=== PATIENT | male | born 1980 | race Caucasian/White ===

== ENCOUNTER 2022-09-04 21:52 | Observation (INO) | payer SELFPAY ==
[2022-09-04] VITALS (10 sets, daily range): BP systolic 119–176; BP diastolic 74–116; PULSE 86–105; RESP 10–24; TEMP 36.7; O2SAT 93–99; BMI 39.5
--- NOTE | 2022-09-04 22:05 | XR_ITS ---
The [address] [address] Patient Name: LAWSON LOPEZ MRN: [id number] date: 1980 Sex: M Assigned Patient Location: ER Current Patient Location: ER Accession/Order Number: [id number] Exam Date: 09/04/2022 21:15 Report Date: 09/04/2022 22:50 At the request of: AMANDA FINLEY Procedure: XR chest 1V EXAM: XR chest 1V HISTORY: chest pain COMPARISON: 08/06/2009 FINDINGS: No focal consolidations or pleural effusions. Cardiomediastinal silhouette is unremarkable. Visualized osseous structures are unremarkable. IMPRESSION: No acute disease. Electronically authenticated by: LILLY JOHNSTON Date: 09/04/2022 22:50
--- NOTE | 2022-09-04 22:05 | ECG_ITS ---
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 Repeat ECG is requested 9150 abnormal ECG No previous ECG available for comparison Electronically Signed On 09-05-2022 7:04:43 EDT by DAILY BRINK
--- NOTE | 2022-09-04 22:07 | ED.CHESTPAI1 ---
HPI - Chest Pain General Chief Complaint: Chest Pain Stated Complaint: CHEST PAIN FOR 3 DAYS Time Seen by Provider: 09/04/22 22:01 Source: patient Mode of arrival: walk-in Limitations: no limitations History of Present Illness HPI narrative: chest pain just left of center started about 3 days ago. Pain is non-radiating and intermittent. No associated symptoms. 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 No fever, chills, cough, vomiting or other symptoms. He is supposed to be taking medication for high blood pressure and high cholesterol but does not see any local physicians. No meds taken for this pain. Related Data Home Medications Medication Instructions Recorded Confirmed No Known Home Medications 09/04/22 09/04/22 Allergies Allergy/AdvReac Type Severity Reaction Status Date / Time amoxicillin Allergy Verified 09/04/22 22:06 prednisone Allergy Verified 09/04/22 22:06 narcotic AdvReac Severe Uncoded 09/04/22 23:14 PFSH PFS Social History Smoking status: Current every day smoker Exam Narrative Exam Narrative: Nurses notes and vital signs reviewed and patient is not hypoxic. afebrile General: Well-appearing and in no apparent distress. Skin: Warm, dry, no pallor noted. No rash. Head: Normocephalic, atraumatic. Eye: Pupils are equal, round and EOMI. No scleral icterus. Ears, Nose, Mouth, and Throat: Oral mucosa is moist Cardiovascular: Regular Rate and Rhythm without murmur, gallop or rub. Respiratory: No accessory muscle use or respiratory distress. Lungs are clear to auscultation, no wheezing, rales or rhonchi Chest Wall: no tenderness, crepitus r subcutaneous emphysema Back: No midline thoracic or lumbar vertebral tenderness. No CVA tenderness Musculoskeletal: normal ROM, no calf or popliteal tenderness, no lower extremity edema/swelling GI: Abdomen is soft, non-distended. Normal bowel sounds. No tenderness to palpation. No rebound, guarding, or rigidity noted. Neurological: A&O x4. No cranial nerve dysfunction observed. No truncal ataxia. Moves all extremities. Sensation intact. Psychiatric: Cooperative and interactive. Normal mood and affect. Constitutional Vital Signs - 24 hr 09/04/22 21:57 09/04/22 18:38 09/04/22 21:58 Temperature 98.0 F Pulse Rate 93 H Pulse Rate [Monitor] 101 H Respiratory Rate 20 19 Blood Pressure 119/74 176/116 H Blood Pressure [Right Arm] 172/86 H Pulse Oximetry 99 98 95 Oxygen Delivery Method Room Air 09/04/22 22:23 09/04/22 22:31 09/04/22 22:46 Temperature Pulse Rate 105 H 91 H 92 H Pulse Rate [Monitor] Respiratory Rate 19 17 22 Blood Pressure 146/104 H 134/96 H 142/91 H Blood Pressure [Right Arm] Pulse Oximetry 94 L 94 L 95 Oxygen Delivery Method 09/04/22 22:46 09/04/22 22:46 09/04/22 23:01 Temperature Pulse Rate 93 H 97 H 103 H Pulse Rate [Monitor] Respiratory Rate 18 24 18 Blood Pressure 142/91 H 142/91 H 142/109 H Blood Pressure [Right Arm] Pulse Oximetry 93 L 97 95 Oxygen Delivery Method 09/04/22 23:16 09/04/22 23:16 09/04/22 23:31 Temperature Pulse Rate 93 H 89 86 Pulse Rate [Monitor] Respiratory Rate 17 17 19 Blood Pressure 141/101 H 141/101 H 146/92 H Blood Pressure [Right Arm] Pulse Oximetry 94 L 93 L 97 Oxygen Delivery Method 09/04/22 23:46 09/05/22 00:01 09/05/22 00:16 Temperature Pulse Rate 104 H 98 H 90 Pulse Rate [Monitor] Respiratory Rate 10 L 15 21 Blood Pressure 141/97 H 130/102 H 127/94 H Blood Pressure [Right Arm] Pulse Oximetry 95 93 L 93 L Oxygen Delivery Method 09/05/22 00:16 09/05/22 00:31 09/05/22 00:46 Temperature Pulse Rate 88 89 90 Pulse Rate [Monitor] Respiratory Rate 21 12 22 Blood Pressure 127/94 H 131/92 H 141/89 H Blood Pressure [Right Arm] Pulse Oximetry 95 98 96 Oxygen Delivery Method Course Vital Signs Vital signs: Vital Signs Blood Pressure 119/74 09/04/22 18:38 Pulse Oximetry 98 09/04/22 18:38 Temperature 98.0 F 09/04/22 21:57 Pulse Rate 90 09/05/22 00:46 Respiratory Rate 22 09/05/22 00:46 Blood Pressure 141/89 H 09/05/22 00:46 Pulse Oximetry 96 09/05/22 00:46 Oxygen Delivery Method Room Air 09/04/22 21:57 MDM - Chest Pain MDM Narrative Medical decision making narrative: Patient was placed on cardiac nurse specialist and EKG obtained. Blood drawn and sent for evaluation. CXR obtained. D-dimer negative. CBC, metabolic profile, BNP and troponin negative. Patient felt better after getting aspirin and SL Nitro. he is a former addict and does not want any narcotic pain medications. He has several risk factors, no local PCP for follow up and HEART score = 5. I called the telehospitalist to discuss OBS admission to the SDU. Dr Alexandra asked that I get a 2nd troponin @ 3hrs after first and if not markedly elevated agreed to admit on behalf of Dr Grajeda. Patient and spouse informed of risk and recommendation for admission. he is agreeable to staying. REPEAT TROPONIN WAS SIMILAR TO INITIAL VALUE AND THE PATIENT WAS ADMITTED TO THE SDU Lab Data Attestation: I reviewed the patient's lab results. Labs: Lab Results 09/04/22 09/05/22 Range/Units 22:05 01:10 WBC 10.6 (4.0-11.0) 10^3/uL RBC 4.99 (4.70-6.10) 10^6/uL Hgb 15.1 (14.0-18.0) g/dL Hct 43.5 (42.0-54.0) % MCV 87.2 (80.0-94.0) fL MCH 30.3 (25.9-34.0) pg MCHC 34.7 (29.9-35.2) g/dL RDW 12.4 (11.0-15.0) % Plt Count 207 (150-450) 10^3/uL MPV 10.0 (9.5-13.5) fL Neut % (Auto) 61.3 (43.0-75.0) % Lymph % (Auto) 24.1 (20.5-60.0) % [place] % (Auto) 10.3 (1.7-12.0) % Eos % (Auto) 2.8 (0.9-7.0) % Baso % (Auto) 0.7 (0.2-2.0) % Neut # (Auto) 6.5 (1.4-6.5) 10^3/uL Lymph # (Auto) 2.5 (1.2-3.8) 10^3/uL [place] # (Auto) 1.1 H (0.3-0.8) 10^3/uL Eos # (Auto) 0.3 (0.0-0.7) 10^3/uL Baso # (Auto) 0.1 (0.0-0.1) 10^3/uL Abs Immat Gran (auto) 0.08 H (0.00-0.03) 10^3/uL Imm/Tot Granulo (auto) 0.8 H (0.0-0.5) % D-Dimer <0.19 (<=0.59) mg/L FEU Sodium 137 (136-145) mmol/L Potassium 3.6 (3.5-5.1) mmol/L Chloride 102 (98-107) mmol/L Carbon Dioxide 27.4 (21.0-32.0) mmol/L Anion Gap 11.2 BUN 12.0 (7.0-18.0) mg/dL Creatinine 1.04 (0.70-1.30) mg/dL Est GFR ( Amer) >60 (>=60) Est GFR (Non-Af Amer) >60 (>=60) BUN/Creatinine Ratio 11.5 Glucose 115 H (74-106) mg/dL Calcium 9.0 (8.5-10.1) mg/dL Troponin I High Sens 15.9 15.3 (4.0-76.1) pg/mL NT-Pro-B Natriuret Pep 21.0 (<=450.0) pg/mL Imaging Data Chest x-ray: Radiologist's impression: MRN: [id number] date: 1980 Sex: M Assigned Patient Location: ER Current Patient Location: ER Accession/Order Number: [id number] Exam Date: 09/04/2022 21:15 Report Date: 09/04/2022 22:50 At the request of: AMANDA FINLEY Procedure: XR chest 1V EXAM: XR chest 1V HISTORY: chest pain COMPARISON: 08/06/2009 FINDINGS: No focal consolidations or pleural effusions. Cardiomediastinal silhouette is unremarkable. Visualized osseous structures are unremarkable. IMPRESSION: No acute disease. Electronically authenticated by: LILLY JOHNSTON Date: 09/04/2022 22:50 ECG Data Interpretation: EKG interpretation: Emergency Department physician interpretation. Normal sinus rhythm at 87bpm. Leftward axis, possible pulmonary disease pattern. No ST segment elevation or depression. Heart Score History: Highly Suspicious ECG: NS Repolarization Age: <45 years Risk Factors: >3 Risk Factors/ HX of CAD:2 Troponin: <Normal Limit Total Heart Score Recommendations & Risks:: 5 Discharge Plan Discharge Chief Complaint: Chest Pain Clinical Impression: Chest pain Patient Disposition: Admitted as Observation Time of Disposition Decision: 23:05 Additional Instructions: Admitted to Dr Grajeda's service
[2022-09-04] MEDS: ASPIRIN 81 MG TAB.CHEW 162 MG PO (22:20)
[2022-09-04] MEDS: NITROGLYCERIN 0.4 MG TAB.SUBL PO ×2 (22:20→23:47)
[2022-09-04 22:22] LABS: Basophils Absolute Auto 0.1 10^3/uL (0.0-0.1); Basophils Percent Auto 0.7 % (0.2-2.0); Eosinophils Absolute Auto 0.3 10^3/uL (0.0-0.7); Eosinophils Percent Auto 2.8 % (0.9-7.0); Hematocrit 43.5 % (42.0-54.0); Hemoglobin 15.1 g/dL (14.0-18.0); Immature Granulocytes Abs Auto 0.08 10^3/uL (0.00-0.03); Immature Granulocytes Pct Auto 0.8 % (0.0-0.5); Lymphocytes Absolute Auto 2.5 10^3/uL (1.2-3.8); Lymphocytes Percent Auto 24.1 % (20.5-60.0); Mean Corpuscular HGB Conc 34.7 g/dL (29.9-35.2); Mean Corpuscular Hemoglobin 30.3 pg (25.9-34.0); Mean Corpuscular Volume 87.2 fL (80.0-94.0); Monocytes Absolute Auto 1.1 10^3/uL (0.3-0.8); Monocytes Percent Auto 10.3 % (1.7-12.0); Neutrophils Absolute Auto 6.5 10^3/uL (1.4-6.5); Neutrophils Percent Auto 61.3 % (43.0-75.0); Platelet Count 207 10^3/uL (150-450); Red Blood Count 4.99 10^6/uL (4.70-6.10); Red Cell Distribution Width 12.4 % (11.0-15.0); White Blood Count 10.6 10^3/uL (4.0-11.0)
[2022-09-04 22:44] LABS: Anion Gap 11.2; BUN Creatinine Ratio 11.5; Carbon Dioxide 27.4 mmol/L (21.0-32.0); Chloride 102 mmol/L (98-107); Estimated GFR (African America >60 (>=60); Estimated GFR (Non-African Ame >60 (>=60); Glucose 115 mg/dL (74-106); Potassium 3.6 mmol/L (3.5-5.1); Sodium 137 mmol/L (136-145); Troponin I High Sensitivity 15.9 pg/mL (4.0-76.1)
[2022-09-04 22:47] LABS: D Dimer <0.19 mg/L FEU (<=0.59)
[2022-09-05] VITALS (120 sets, daily range): BP systolic 127–176; BP diastolic 86–122; PULSE 66–113; RESP 9–52; TEMP 35.9–36.9; O2SAT 91–99; BMI 39.4
[2022-09-05 01:38] LABS: Troponin I High Sensitivity 15.3 pg/mL (4.0-76.1)
--- NOTE | 2022-09-05 03:04 | CA_ITS ---
Patient: LAWSON LOPEZ Exam Date: 09/05/2022 : 1980 Gender:M Ordering : SHAIKH Edwin CARCAMO . Admission #: [id number] Family : GUS BRADLEY Order #: [id number] CLICK HERE TO VIEW EXAM ECHOCARDIOGRAM REPORT PROCEDURE: CA ECHO DOPPLER COMPLETE INDICATIONS: Chest pain, hypertension, smoker COMPARISON: None. DESCRIPTION: COMPLETE ECHOCARDIOGRAM Real-time transthoracic echocardiography with 2D, M-mode, spectral and color flow Doppler performed. QUALITY: Technical quality was good. LEFT VENTRICLE: Normal chamber size. Normal left ventricular wall thickness. Systolic function is at the lower limits of normal. LV EF: Lower limits of normal left ventricular ejection fraction, (50-55%). DIASTOLIC: Normal diastolic function. ATRIAL SEPTUM: Visually appears intact. LEFT ATRIUM: Normal chamber size. RIGHT ATRIUM: Normal chamber size. RIGHT VENTRICLE: Normal chamber size. Normal right ventricular systolic function. TRICUSPID VALVE: Normal mobility and thickness. No stenosis with no regurgitation. MITRAL VALVE: Normal mobility and thickness. No evidence of mitral valve stenosis. There is no mitral annular calcification. No mitral regurgitation. AORTIC VALVE: Normal trileaflet appearance. No visible sclerosis. Normal leaflet mobility. No evidence of aortic valve stenosis. No aortic regurgitation. AORTIC ROOT: Normal diameter and appearance. PULMONIC VALVE: Normal thickness and mobility. No stenosis. No regurgitation. PERICARDIUM: No evidence of pericardial effusion. IVC: Collapses with inspirations. PLEURA: CONCLUSION: 1. Left ventricular systolic function is at the lower limits of normal. LVEF is 50 to 55%. 2. The right ventricle is normal in size and exhibits normal systolic function. 3. No significant valvular dysfunction. 4. No pericardial effusion. Adult Echocardiography Procedure Report Left Ventricle LVEDD (3.7 - 5.6 cm): 5.42 cm, 6.01 cm LVESD (2.2 - 4.0 cm): 4.53 cm, 4.70 cm LVIVS thickness (0.6 - 1.2 cm): 1.14 cm LVPW thickness (0.5 - 1.0 cm): 0.96 cm e': 0.12 m/s E - e': 5.77 LVOT Max Gradient: 2.73 mm[Hg] LVOT Area (cm2): 0.83 m/s Peak Velocity (LVOT): 0.83 m/s LVOT Diameter 2.44 cm Left Atrium LA Volume Index (2D A2C): 24.24 ml/m2 Left Atrium Systolic Dimension: 3.47 cm Mitral Valve MV E to A Ratio: 1.04 Mitral Valve A-Wave Peak Velocity: 0.66 m/s Mitral Valve E-Wave Peak Velocity: 0.69 m/s Right Ventricle Aorta AO Root Diam: 3.79 cm Ascending Ao Diam: 3.07 cm Aortic Valve AoV Area (Peak Bruno): 4.42 cm2, 4.42 cm2 Peak Velocity(Antegrade Flow): 0.87 m/s Peak Gradient(Antegrade Flow): 3.02 mm[Hg] Tricuspid Valve Pulmonic Valve Mean Gradient: 3.55 mm[Hg], 3.67 mm[Hg] Mean Velocity: 0.87 m/s, 0.88 m/s Peak Velocity: 1.35 m/s, 1.15 m/s Peak Gradient: 5.29 mm[Hg], 6.88 mm[Hg], 7.81 mm[Hg] Right Atrium Right Atrium Systolic Pressure: 47.76 ml, 47.76 ml Dictated by: Demian Horta M.D. on 09/05/2022 at 17:57 Approved by: Demian Horta M.D. on 09/05/2022 at 18:01
--- NOTE | 2022-09-05 03:17 | W.PM.TELEPN ---
Progress Note: Subjective Subjective Interval history: precordial pressure-like cp HPI: this is a 42 yo male who presents with above complaonts. Patient endorses chest pain just left of center started about 3 days ago.? Pain is non-radiating and intermittent.? No associated symptoms.? NO connection to exertion.? No fever, chills, cough, vomiting or other symptoms.? He is supposed to be taking medication for high blood pressure and high cholesterol, but has not been compliant.? No meds taken for this pain. Got better with NTG S/L. Repeated Raimundo - WNL. EKG - no ischemic changes. Exam Narrative Exam Narrative: NAD, PERRLA, EOMI Neck - supple, LN not palpated S1, S2, RRR CTA B/L no wheezing ABd - S/NT/N/+ BSs Ext- no C/C/E Neuro - CN II-XI grossly intact, no focal deficits SKin - warm, no rashes Constitutional Vital Signs - 24 hr 09/04/22 21:57 09/04/22 18:38 09/04/22 21:58 Temperature 98.0 F Pulse Rate 93 H Pulse Rate [Monitor] 101 H Respiratory Rate 20 19 Blood Pressure 119/74 176/116 H Blood Pressure [Right Arm] 172/86 H Pulse Oximetry 99 98 95 Oxygen Delivery Method Room Air 09/04/22 22:23 09/04/22 22:31 09/04/22 22:46 Temperature Pulse Rate 105 H 91 H 92 H Pulse Rate [Monitor] Respiratory Rate 19 17 22 Blood Pressure 146/104 H 134/96 H 142/91 H Blood Pressure [Right Arm] Pulse Oximetry 94 L 94 L 95 Oxygen Delivery Method 09/04/22 22:46 09/04/22 22:46 09/04/22 23:01 Temperature Pulse Rate 93 H 97 H 103 H Pulse Rate [Monitor] Respiratory Rate 18 24 18 Blood Pressure 142/91 H 142/91 H 142/109 H Blood Pressure [Right Arm] Pulse Oximetry 93 L 97 95 Oxygen Delivery Method 09/04/22 23:16 09/04/22 23:16 09/04/22 23:31 Temperature Pulse Rate 93 H 89 86 Pulse Rate [Monitor] Respiratory Rate 17 17 19 Blood Pressure 141/101 H 141/101 H 146/92 H Blood Pressure [Right Arm] Pulse Oximetry 94 L 93 L 97 Oxygen Delivery Method 09/04/22 23:46 09/05/22 00:01 09/05/22 00:16 Temperature Pulse Rate 104 H 98 H 90 Pulse Rate [Monitor] Respiratory Rate 10 L 15 21 Blood Pressure 141/97 H 130/102 H 127/94 H Blood Pressure [Right Arm] Pulse Oximetry 95 93 L 93 L Oxygen Delivery Method 09/05/22 00:16 09/05/22 00:31 09/05/22 00:46 Temperature Pulse Rate 88 89 90 Pulse Rate [Monitor] Respiratory Rate 21 12 22 Blood Pressure 127/94 H 131/92 H 141/89 H Blood Pressure [Right Arm] Pulse Oximetry 95 98 96 Oxygen Delivery Method 09/05/22 01:58 09/05/22 02:05 09/05/22 02:05 Temperature 96.6 F L Pulse Rate Pulse Rate [Monitor] 83 Respiratory Rate 24 15 Blood Pressure Blood Pressure [Right Arm] 142/93 H 166/122 H Pulse Oximetry 96 93 L Oxygen Delivery Method Room Air Room Air 09/05/22 02:05 09/05/22 02:05 Temperature Pulse Rate 83 Pulse Rate [Monitor] 83 Respiratory Rate Blood Pressure Blood Pressure [Right Arm] Pulse Oximetry Oxygen Delivery Method Progress Note: Objective Labs Labs: Short CBC 09/04/22 Range/Units 22:05 WBC 10.6 (4.0-11.0) 10^3/uL Hgb 15.1 (14.0-18.0) g/dL Hct 43.5 (42.0-54.0) % Plt Count 207 (150-450) 10^3/uL BMP 09/04/22 22:05 Sodium 137 Potassium 3.6 Chloride 102 Carbon Dioxide 27.4 BUN 12.0 Creatinine 1.04 Glucose 115 H Calcium 9.0 Progress Note: A&P Assessment and Plan (1) Chest pain: Assessment and Plan: Chest pain in patient with multiple risk factors for CAD - monitor on telemetry - continue to trend Raimundo - ECHo ordered - Stress test ordered - Cardiology consult placed - started on transdermal ntg + ntg s/p PRN + ASA + statin - Lipid profile ordered (2) HTN (hypertension): (3) Dyslipidemia: Assessment and Plan: F/U results of the lipid profile Started on Lipitor (4) Tobacco abuse: Assessment and Plan: counselled started on Nicotin patch Telemedicine Attestation Telemedicine Attestation I conducted this encounter from [place][] via secure live, [id number] video conference with the patient, located at [facility] with [chest pain]. Prior to the interview, the risks and benefits of telemedicine were discussed with the patient and verbal consent was obtained.
[2022-09-05 04:44] LABS: Basophils Absolute Auto 0.1 10^3/uL (0.0-0.1); Basophils Percent Auto 0.8 % (0.2-2.0); Eosinophils Absolute Auto 0.3 10^3/uL (0.0-0.7); Hemoglobin 14.4 g/dL (14.0-18.0); Immature Granulocytes Pct Auto 1.1 % (0.0-0.5); Lymphocytes Absolute Auto 2.3 10^3/uL (1.2-3.8); Lymphocytes Percent Auto 24.9 % (20.5-60.0); Mean Corpuscular HGB Conc 34.3 g/dL (29.9-35.2); Mean Corpuscular Hemoglobin 30.4 pg (25.9-34.0); Mean Corpuscular Volume 88.6 fL (80.0-94.0); Mean Platelet Volume 10.3 fL (9.5-13.5); Monocytes Absolute Auto 0.9 10^3/uL (0.3-0.8); Monocytes Percent Auto 9.5 % (1.7-12.0); Neutrophils Absolute Auto 5.6 10^3/uL (1.4-6.5); Neutrophils Percent Auto 60.7 % (43.0-75.0); Platelet Count 191 10^3/uL (150-450); Red Blood Count 4.74 10^6/uL (4.70-6.10); Red Cell Distribution Width 12.4 % (11.0-15.0); White Blood Count 9.1 10^3/uL (4.0-11.0)
[2022-09-05 04:52] LABS: Alanine Aminotransferase 26 U/L (16-63); Albumin Globulin Ratio 1.1; Albumin Level 3.6 g/dL (3.4-5.0); Alkaline Phosphatase 87 U/L (46-116); Aspartate Amino Transferase 11 U/L (15-37); BUN Creatinine Ratio 12.1; Bilirubin Total 0.5 mg/dL (0.2-1.0); Calcium 8.8 mg/dL (8.5-10.1); Carbon Dioxide 26.8 mmol/L (21.0-32.0); Chloride 103 mmol/L (98-107); Estimated GFR (African America >60 (>=60); Estimated GFR (Non-African Ame >60 (>=60); Globulin 3.4 g/dL; Glucose 105 mg/dL (74-106); Potassium 3.8 mmol/L (3.5-5.1); Sodium 138 mmol/L (136-145)
[2022-09-05] MEDS: NITROGLYCERIN 2% 1 GRAM PACKET 1 GM TD (04:56)
[2022-09-05 04:57] LABS: Troponin I High Sensitivity 15.4 pg/mL (4.0-76.1)
[2022-09-05 05:02] LABS: Chol HDL Ratio 5.6; Cholesterol 235 mg/dL (<=200); HDL Cholesterol 42 mg/dL (40-60); Thyroid Stimulating Hormone 5.104 uIU/mL (0.358-3.740); Triglycerides 110 mg/dL (<=150)
[2022-09-05 07:54] LABS: Troponin I High Sensitivity 14.7 pg/mL (4.0-76.1)
--- NOTE | 2022-09-05 10:26 | NM_ITS ---
Patient: LAWSON LOPEZ Exam Date: 09/06/2022 : 1980 Gender:M Ordering : RicardoDomitila Grajeda . Admission #: [id number] Family : Order #: [id number] CLICK HERE TO VIEW EXAM RADIOLOGY REPORT PROCEDURE: NM CIELO PERF SPECT REST STR COMPARISON: None. INDICATIONS: Chest pain TECHNIQUE: Exam Description: Stress/Rest one day protocol gated SPECT Rest Imagin.5 mCi Tc-99m Cardiolite IV on 09/06/2022 Stress Imaging 30.1 mCi Tc-99m Cardiolite IV on 09/06/2022 Exercise Protocol: Marco Heart Rate (bpm): Rest: 76 Max: 166 PMHR: 94 Blood Pressure: Rest: 114/72 Max: 174/82 Exercise Time: Minutes: 7 Seconds: 00 Stage Reached: Stage: 3 Mets 8.4 Symptoms: none Rest and peak stress ECG findings were normal and the exercise portion of the study was normal per attending physician Dr. Horvath . For more details please see separate cardiac stress test report. FINDINGS: QUALITY OF STUDY: Good. PERFUSION DEFECT: LOCATION: Basal anterior. Basal inferior. Mid-inferior. Apical inferior. SIZE: Medium (3-4 segments). SEVERITY: Moderate. TYPE: Persistent. WALL MOTION: Mild hypokinesis: LV SIZE: Enlarged; EDV 140 mL. TID / TCD: None; 0.8 LVEF: Abnormal. Calculated EF 46%. SUMMARY: Myocardial perfusion imaging study has ABNORMAL findings. CONCLUSION: 1. Fixed defects basal anterior wall and inferior wall, LAD and RCA distributions 2. No reversible ischemia 3. Dilated left ventricle, end-diastolic volume 140 milliliters 4. Low left ventricular ejection fraction 46% 5. Normal exercise test Dictated by: Alex Rey MD on 09/06/2022 at 11:27 Approved by: Alex Rey MD on 09/06/2022 at 11:37
[2022-09-05] MEDS: ASPIRIN 325 MG TABLET PO (10:50)
--- NOTE | 2022-09-05 10:56 | CM.NOTE ---
Called Finance regarding self-pay and spoke with Laura. Laura will come up and speak with pt and have him sign paperwork.
[2022-09-05 11:02] LABS: Troponin I High Sensitivity 12.2 pg/mL (4.0-76.1)
--- NOTE | 2022-09-05 12:14 | P.CN_ITS ---
Consult Note: HPI Data of Consult Requesting Physician: Shaikh Nicci MD Primary Care Provider: Non-Staff Physician, Consult Narrative Reason for consult: Chest pain Narrative: [place] [facility] consult note 42 yo male presented to ED for c/o intermittent mid left chest pain x 3days without radiation, nausea or sweating. Admits PMH hypertension and hyperlipide rosalinda- untreated- r/t unable to take time off work to see PCP. Denied any personal h/o cardiac disease, heart procedures or surgery. Denied any family h/o early heart disease or sudden . Current smoker 1 pack every 4 day, had quit smoking for 12 years, and total of 6 years, admits social alcohol about 3 times a year, former cocaine use- quit 13 years ago- denied any other illicit drug use. Pt does admit 3 episodes of syncope over his lifetime and last episode was 2 years ago. States last weekend at a [employer] [place] he had near syncope with darkening vision prior to needing to sit down. States that he typically drinks and hydrates well with water, electrolyte drinks, and occasional Pepsi/MTN Dew (maybe 2 a day). Currently admits mid lt chest soreness without any precipitating factors, recent illness or injury. States chest pain is worse with palpation during echocardiogram- denied any alleviating factors. cc:: CC: Shaikh Nicci MD Review of Systems ROS Status of ROS 10 or more systems reviewed and unremarkable except as noted in history and below Cardiovascular Reports: chest pain (lt mid chest pain, + reproducible with palpation, without radiation); Denies: palpitations, edema, swelling of feet/ankles, shortness of breath with exertion or shortness of breath when lying down Respiratory Denies: shortness of breath, cough, wheezing or pain on inspiration Gastrointestinal Denies: abdominal pain, nausea or vomiting Musculoskeletal Denies: extremity swelling Neurological Reports: dizziness (admits occasional positional dizziness, and sometimes when up and walking.); Denies: headache, numbness in extremities, weakness in extremities, lack of coordination, vertigo, confusion, slurred speech or difficulty communicating thoughts Psychiatric Reports: other (does admit alot of stress ); Denies: anxiety, mood swings, panic attacks, hopelessness, suicidal ideation or homicidal ideation [facility] Social History (Updated 09/05/22 @ 12:28 by CAMILLE ALARCON) Smoking status: Current every day smoker Non-prescribed substance use: former substance user Non-prescribed substance use details: cocaine Meds Home Medications and Allergies Home Medications Medication Instructions Recorded Confirmed Type No Known Home Medications 09/04/22 09/04/22 History Allergies Allergy/AdvReac Type Severity Reaction Status Date / Time amoxicillin Allergy Verified 09/04/22 22:06 prednisone Allergy Verified 09/04/22 22:06 narcotic AdvReac Severe Uncoded 09/04/22 23:14 Exam Constitutional Vital Signs - 24 hr 09/04/22 21:57 09/04/22 18:38 09/04/22 21:58 Temperature 98.0 F Pulse Rate 93 H Pulse Rate [Monitor] 101 H Respiratory Rate 20 19 Blood Pressure 119/74 176/116 H Blood Pressure [Right Arm] 172/86 H Pulse Oximetry 99 98 95 Oxygen Delivery Method Room Air 09/04/22 22:23 09/04/22 22:31 09/04/22 22:46 Temperature Pulse Rate 105 H 91 H 92 H Pulse Rate [Monitor] Respiratory Rate 19 17 22 Blood Pressure 146/104 H 134/96 H 142/91 H Blood Pressure [Right Arm] Pulse Oximetry 94 L 94 L 95 Oxygen Delivery Method 09/04/22 22:46 09/04/22 22:46 09/04/22 23:01 Temperature Pulse Rate 93 H 97 H 103 H Pulse Rate [Monitor] Respiratory Rate 18 24 18 Blood Pressure 142/91 H 142/91 H 142/109 H Blood Pressure [Right Arm] Pulse Oximetry 93 L 97 95 Oxygen Delivery Method 09/04/22 23:16 09/04/22 23:16 09/04/22 23:31 Temperature Pulse Rate 93 H 89 86 Pulse Rate [Monitor] Respiratory Rate 17 17 19 Blood Pressure 141/101 H 141/101 H 146/92 H Blood Pressure [Right Arm] Pulse Oximetry 94 L 93 L 97 Oxygen Delivery Method 09/04/22 23:46 09/05/22 00:01 09/05/22 00:16 Temperature Pulse Rate 104 H 98 H 90 Pulse Rate [Monitor] Respiratory Rate 10 L 15 21 Blood Pressure 141/97 H 130/102 H 127/94 H Blood Pressure [Right Arm] Pulse Oximetry 95 93 L 93 L Oxygen Delivery Method 09/05/22 00:16 09/05/22 00:31 09/05/22 00:46 Temperature Pulse Rate 88 89 90 Pulse Rate [Monitor] Respiratory Rate 21 12 22 Blood Pressure 127/94 H 131/92 H 141/89 H Blood Pressure [Right Arm] Pulse Oximetry 95 98 96 Oxygen Delivery Method 09/05/22 01:58 09/05/22 02:05 09/05/22 02:05 Temperature 96.6 F L Pulse Rate Pulse Rate [Monitor] 83 Respiratory Rate 24 15 Blood Pressure Blood Pressure [Right Arm] 142/93 H 166/122 H Pulse Oximetry 96 93 L Oxygen Delivery Method Room Air Room Air 09/05/22 02:05 09/05/22 02:05 09/05/22 03:09 Temperature Pulse Rate 83 74 Pulse Rate [Monitor] 83 Respiratory Rate Blood Pressure Blood Pressure [Right Arm] Pulse Oximetry Oxygen Delivery Method 09/05/22 04:02 09/05/22 04:20 09/05/22 04:20 Temperature 97.8 F Pulse Rate 83 87 Pulse Rate [Monitor] 87 Respiratory Rate 16 Blood Pressure Blood Pressure [Right Arm] 142/91 H Pulse Oximetry 96 Oxygen Delivery Method Room Air 09/05/22 04:20 09/05/22 04:40 09/05/22 05:27 Temperature Pulse Rate 87 85 86 Pulse Rate [Monitor] Respiratory Rate Blood Pressure Blood Pressure [Right Arm] Pulse Oximetry 93 L Oxygen Delivery Method 09/05/22 06:44 09/05/22 07:46 09/05/22 07:49 Temperature Pulse Rate 83 87 Pulse Rate [Monitor] 72 Respiratory Rate 16 Blood Pressure Blood Pressure [Right Arm] Pulse Oximetry 94 L Oxygen Delivery Method 09/05/22 07:49 09/05/22 07:58 09/05/22 09:52 Temperature 98.0 F Pulse Rate 73 82 85 Pulse Rate [Monitor] Respiratory Rate 18 Blood Pressure Blood Pressure [Right Arm] 138/86 H Pulse Oximetry 96 Oxygen Delivery Method Room Air 09/05/22 10:39 09/05/22 00:46 09/05/22 01:01 Temperature Pulse Rate 73 82 90 Pulse Rate [Monitor] Respiratory Rate 18 11 L Blood Pressure 141/89 H 127/92 H Blood Pressure [Right Arm] Pulse Oximetry 91 L 94 L Oxygen Delivery Method 09/05/22 01:16 09/05/22 01:31 09/05/22 01:46 Temperature Pulse Rate 86 82 82 Pulse Rate [Monitor] Respiratory Rate 15 17 17 Blood Pressure 155/93 H 139/89 H 142/93 H Blood Pressure [Right Arm] Pulse Oximetry 94 L 96 98 Oxygen Delivery Method 09/05/22 01:48 09/05/22 01:50 09/05/22 01:53 Temperature Pulse Rate 92 H 84 85 Pulse Rate [Monitor] Respiratory Rate 13 21 21 Blood Pressure 176/118 H Blood Pressure [Right Arm] Pulse Oximetry 95 Oxygen Delivery Method 09/05/22 01:53 09/05/22 01:53 09/05/22 02:00 Temperature Pulse Rate 84 86 79 Pulse Rate [Monitor] Respiratory Rate 11 L 15 14 Blood Pressure 176/118 H 166/122 H Blood Pressure [Right Arm] Pulse Oximetry 99 98 Oxygen Delivery Method 09/05/22 04:17 09/05/22 07:41 09/05/22 07:50 Temperature Pulse Rate 83 79 75 Pulse Rate [Monitor] Respiratory Rate 10 L 19 19 Blood Pressure 142/91 H Blood Pressure [Right Arm] Pulse Oximetry 99 97 Oxygen Delivery Method 09/05/22 08:00 09/05/22 08:10 09/05/22 08:20 Temperature Pulse Rate 86 76 78 Pulse Rate [Monitor] Respiratory Rate 16 9 L 16 Blood Pressure Blood Pressure [Right Arm] Pulse Oximetry Oxygen Delivery Method 09/05/22 08:30 09/05/22 08:40 09/05/22 08:50 Temperature Pulse Rate 95 H 81 79 Pulse Rate [Monitor] Respiratory Rate 16 20 19 Blood Pressure Blood Pressure [Right Arm] Pulse Oximetry Oxygen Delivery Method 09/05/22 09:00 09/05/22 09:10 09/05/22 09:20 Temperature Pulse Rate 77 81 81 Pulse Rate [Monitor] Respiratory Rate 15 21 17 Blood Pressure Blood Pressure [Right Arm] Pulse Oximetry Oxygen Delivery Method 09/05/22 09:30 09/05/22 09:40 09/05/22 09:50 Temperature Pulse Rate 78 78 81 Pulse Rate [Monitor] Respiratory Rate 26 H 52 H 17 Blood Pressure Blood Pressure [Right Arm] Pulse Oximetry Oxygen Delivery Method 09/05/22 10:00 09/05/22 10:10 09/05/22 10:20 Temperature Pulse Rate 86 77 77 Pulse Rate [Monitor] Respiratory Rate 16 14 20 Blood Pressure Blood Pressure [Right Arm] Pulse Oximetry Oxygen Delivery Method 09/05/22 10:30 09/05/22 10:40 09/05/22 10:50 Temperature Pulse Rate 79 88 78 Pulse Rate [Monitor] Respiratory Rate 20 18 14 Blood Pressure Blood Pressure [Right Arm] Pulse Oximetry Oxygen Delivery Method 09/05/22 10:52 09/05/22 10:52 09/05/22 12:12 Temperature Pulse Rate 78 73 Pulse Rate [Monitor] 87 Respiratory Rate 18 17 18 Blood Pressure 169/122 H Blood Pressure [Right Arm] Pulse Oximetry 98 Oxygen Delivery Method 09/05/22 12:12 Temperature Pulse Rate 72 Pulse Rate [Monitor] Respiratory Rate Blood Pressure Blood Pressure [Right Arm] Pulse Oximetry Oxygen Delivery Method Documenting provider has reviewed patient's vital signs: yes Common normals: no apparent distress, no limitations and alert; negative for average body habitus (obese) General appearance: cooperative, comfortable and well developed Nutritional appearance: obese Orientation/consciousness: Yes awake, Yes oriented to person, Yes oriented to place and Yes oriented to time Chest Common normals: inspection of chest normal and palpation of chest normal (lt mid chest + reproducible chest pain 2/10- sharp) Respiratory Common normals: normal respiratory effort, no retractions, no use of accessory muscles and clear to auscultation bilaterally Cardio Common normals: regular rate, regular rhythm, S1 normal heart sound, S2 normal heart sound, no gallops, no murmurs, no rub and peripheral pulses 2+ throughout; JVD Palpation: normal PMI Rate: regular rate Rhythm: regular rhythm Heart sounds: S1 normal and S2 normal; no murmurs Peripheral pulses: posterior tibial pulses present and dorsalis pedis pulses present Extremity Common normals: normal to inspection, normal capillary refill and no clubbing, cyanosis or edema Neuro Sensorium/orientation: awake, alert, oriented to person, oriented to place and oriented to time Psych Thought process: normal thought process Thought content: normal thought content Attention/concentration: attention grossly intact Memory/cognition: memory grossly intact Results Labs Labs: Short CBC 09/04/22 09/05/22 Range/Units 22:05 04:19 WBC 10.6 9.1 (4.0-11.0) 10^3/uL Hgb 15.1 14.4 (14.0-18.0) g/dL Hct 43.5 42.0 (42.0-54.0) % Plt Count 207 191 (150-450) 10^3/uL BMP 09/04/22 09/05/22 22:05 04:19 Sodium 137 138 Potassium 3.6 3.8 Chloride 102 103 Carbon Dioxide 27.4 26.8 BUN 12.0 12.0 Creatinine 1.04 0.99 Glucose 115 H 105 Calcium 9.0 8.8 Liver Function 09/05/22 Range/Units 04:19 Total Bilirubin 0.5 (0.2-1.0) mg/dL AST 11 L (15-37) U/L ALT 26 (16-63) U/L Alkaline Phosphatase 87 (46-116) U/L Albumin 3.6 (3.4-5.0) g/dL ECG Interpretation: ? Interpretive Statements 1100 Sinus rhythm 1108 Marked sinus arrhythmia 7200 Abnormal left axis deviation 8003 Consistent with pulmonary disease 8102 Low QRS voltage in chest leads 0104 ELECTRODE(S) DETACHED ...? Repeat ECG is requested 9150 ? abnormal ECG? No previous ECG available for comparison Electronically Signed On 09-05-2022 7:04:43 EDT by NEIL [facility]INK Imaging Chest x-ray: Radiologist's impression: no acute cardiopulm concerns Assessment and Plan Assessment and Plan (1) Chest pain: Assessment and Plan: Reproducible chest pain, negative HS troponin levels x 3, EKG without acute changes or ST elevation/depression. Most likely CP is r/t other etiology as musculoskeletal, also in setting of uncontrolled HTN (2) HTN (hypertension): Assessment and Plan: Uncontrolled HTN-Dr Thompson added amlodipine for HTN management. (3) Dyslipidemia: Assessment and Plan: Elevated lipid levels therefore lipitor was started- recommend repeat liver function and lipid level in 2-3 months monitor for any myalgias (4) Tobacco abuse: Assessment and Plan: Recommended smoking cessation, States he is going to quit smoking again. (5) Syncope and collapse: Assessment and Plan: Awaiting echocardiogram and stress test as ordered by primary service to assess cardiac function and perfusion Recommended pt to limit caffeinated beverages and maintain adequate hydration with water and electrolyte beverages- orthostatic vitals as inpt to assess for POTS/neurocardiogenic components. Being that he has financial concerns r/t no medical insurance will hold off on event monitor at this time. Telemetry review does not show any concerning arrythmias since admit. Plan as above Reviewed with Dr Michelle for further recommendations Camille Alarcon [facility]
[2022-09-05] MEDS: AMLODIPINE BESYLATE 5 MG TABLET PO (12:22)
--- NOTE | 2022-09-05 12:44 | P.CN_ITS ---
Consult Note: HPI Data of Consult Requesting Physician: Shaikh Nicci MD Primary Care Provider: Non-Staff Physician, Consult Narrative cc:: CC: Shaikh Ncici MD [facility] Social History (Updated 09/05/22 @ 12:28 by STEVEN FLORES) Smoking status: Current every day smoker Non-prescribed substance use: former substance user Non-prescribed substance use details: cocaine Meds Home Medications and Allergies Home Medications Medication Instructions Recorded Confirmed Type No Known Home Medications 09/04/22 09/04/22 History Allergies Allergy/AdvReac Type Severity Reaction Status Date / Time amoxicillin Allergy Verified 09/04/22 22:06 prednisone Allergy Verified 09/04/22 22:06 narcotic AdvReac Severe Uncoded 09/04/22 23:14 Exam Constitutional Vital Signs - 24 hr 09/04/22 21:57 09/04/22 18:38 09/04/22 21:58 Temperature 98.0 F Pulse Rate 93 H Pulse Rate [Monitor] 101 H Respiratory Rate 20 19 Blood Pressure 119/74 176/116 H Blood Pressure [Right Arm] 172/86 H Pulse Oximetry 99 98 95 Oxygen Delivery Method Room Air 09/04/22 22:23 09/04/22 22:31 09/04/22 22:46 Temperature Pulse Rate 105 H 91 H 92 H Pulse Rate [Monitor] Respiratory Rate 19 17 22 Blood Pressure 146/104 H 134/96 H 142/91 H Blood Pressure [Right Arm] Pulse Oximetry 94 L 94 L 95 Oxygen Delivery Method 09/04/22 22:46 09/04/22 22:46 09/04/22 23:01 Temperature Pulse Rate 93 H 97 H 103 H Pulse Rate [Monitor] Respiratory Rate 18 24 18 Blood Pressure 142/91 H 142/91 H 142/109 H Blood Pressure [Right Arm] Pulse Oximetry 93 L 97 95 Oxygen Delivery Method 09/04/22 23:16 09/04/22 23:16 09/04/22 23:31 Temperature Pulse Rate 93 H 89 86 Pulse Rate [Monitor] Respiratory Rate 17 17 19 Blood Pressure 141/101 H 141/101 H 146/92 H Blood Pressure [Right Arm] Pulse Oximetry 94 L 93 L 97 Oxygen Delivery Method 09/04/22 23:46 09/05/22 00:01 09/05/22 00:16 Temperature Pulse Rate 104 H 98 H 90 Pulse Rate [Monitor] Respiratory Rate 10 L 15 21 Blood Pressure 141/97 H 130/102 H 127/94 H Blood Pressure [Right Arm] Pulse Oximetry 95 93 L 93 L Oxygen Delivery Method 09/05/22 00:16 09/05/22 00:31 09/05/22 00:46 Temperature Pulse Rate 88 89 90 Pulse Rate [Monitor] Respiratory Rate 21 12 22 Blood Pressure 127/94 H 131/92 H 141/89 H Blood Pressure [Right Arm] Pulse Oximetry 95 98 96 Oxygen Delivery Method 09/05/22 01:58 09/05/22 02:05 09/05/22 02:05 Temperature 96.6 F L Pulse Rate Pulse Rate [Monitor] 83 Respiratory Rate 24 15 Blood Pressure Blood Pressure [Right Arm] 142/93 H 166/122 H Pulse Oximetry 96 93 L Oxygen Delivery Method Room Air Room Air 09/05/22 02:05 09/05/22 02:05 09/05/22 03:09 Temperature Pulse Rate 83 74 Pulse Rate [Monitor] 83 Respiratory Rate Blood Pressure Blood Pressure [Right Arm] Pulse Oximetry Oxygen Delivery Method 09/05/22 04:02 09/05/22 04:20 09/05/22 04:20 Temperature 97.8 F Pulse Rate 83 87 Pulse Rate [Monitor] 87 Respiratory Rate 16 Blood Pressure Blood Pressure [Right Arm] 142/91 H Pulse Oximetry 96 Oxygen Delivery Method Room Air 09/05/22 04:20 09/05/22 04:40 09/05/22 05:27 Temperature Pulse Rate 87 85 86 Pulse Rate [Monitor] Respiratory Rate Blood Pressure Blood Pressure [Right Arm] Pulse Oximetry 93 L Oxygen Delivery Method 09/05/22 06:44 09/05/22 07:46 09/05/22 07:49 Temperature Pulse Rate 83 87 Pulse Rate [Monitor] 72 Respiratory Rate 16 Blood Pressure Blood Pressure [Right Arm] Pulse Oximetry 94 L Oxygen Delivery Method 09/05/22 07:49 09/05/22 07:58 09/05/22 09:52 Temperature 98.0 F Pulse Rate 73 82 85 Pulse Rate [Monitor] Respiratory Rate 18 Blood Pressure Blood Pressure [Right Arm] 138/86 H Pulse Oximetry 96 Oxygen Delivery Method Room Air 09/05/22 10:39 09/05/22 00:46 09/05/22 01:01 Temperature Pulse Rate 73 82 90 Pulse Rate [Monitor] Respiratory Rate 18 11 L Blood Pressure 141/89 H 127/92 H Blood Pressure [Right Arm] Pulse Oximetry 91 L 94 L Oxygen Delivery Method 09/05/22 01:16 09/05/22 01:31 09/05/22 01:46 Temperature Pulse Rate 86 82 82 Pulse Rate [Monitor] Respiratory Rate 15 17 17 Blood Pressure 155/93 H 139/89 H 142/93 H Blood Pressure [Right Arm] Pulse Oximetry 94 L 96 98 Oxygen Delivery Method 09/05/22 01:48 09/05/22 01:50 09/05/22 01:53 Temperature Pulse Rate 92 H 84 85 Pulse Rate [Monitor] Respiratory Rate 13 21 21 Blood Pressure 176/118 H Blood Pressure [Right Arm] Pulse Oximetry 95 Oxygen Delivery Method 09/05/22 01:53 09/05/22 01:53 09/05/22 02:00 Temperature Pulse Rate 84 86 79 Pulse Rate [Monitor] Respiratory Rate 11 L 15 14 Blood Pressure 176/118 H 166/122 H Blood Pressure [Right Arm] Pulse Oximetry 99 98 Oxygen Delivery Method 09/05/22 04:17 09/05/22 07:41 09/05/22 07:50 Temperature Pulse Rate 83 79 75 Pulse Rate [Monitor] Respiratory Rate 10 L 19 19 Blood Pressure 142/91 H Blood Pressure [Right Arm] Pulse Oximetry 99 97 Oxygen Delivery Method 09/05/22 08:00 09/05/22 08:10 09/05/22 08:20 Temperature Pulse Rate 86 76 78 Pulse Rate [Monitor] Respiratory Rate 16 9 L 16 Blood Pressure Blood Pressure [Right Arm] Pulse Oximetry Oxygen Delivery Method 09/05/22 08:30 09/05/22 08:40 09/05/22 08:50 Temperature Pulse Rate 95 H 81 79 Pulse Rate [Monitor] Respiratory Rate 16 20 19 Blood Pressure Blood Pressure [Right Arm] Pulse Oximetry Oxygen Delivery Method 09/05/22 09:00 09/05/22 09:10 09/05/22 09:20 Temperature Pulse Rate 77 81 81 Pulse Rate [Monitor] Respiratory Rate 15 21 17 Blood Pressure Blood Pressure [Right Arm] Pulse Oximetry Oxygen Delivery Method 09/05/22 09:30 09/05/22 09:40 09/05/22 09:50 Temperature Pulse Rate 78 78 81 Pulse Rate [Monitor] Respiratory Rate 26 H 52 H 17 Blood Pressure Blood Pressure [Right Arm] Pulse Oximetry Oxygen Delivery Method 09/05/22 10:00 09/05/22 10:10 09/05/22 10:20 Temperature Pulse Rate 86 77 77 Pulse Rate [Monitor] Respiratory Rate 16 14 20 Blood Pressure Blood Pressure [Right Arm] Pulse Oximetry Oxygen Delivery Method 09/05/22 10:30 09/05/22 10:40 09/05/22 10:50 Temperature Pulse Rate 79 88 78 Pulse Rate [Monitor] Respiratory Rate 20 18 14 Blood Pressure Blood Pressure [Right Arm] Pulse Oximetry Oxygen Delivery Method 09/05/22 10:52 09/05/22 10:52 09/05/22 12:12 Temperature Pulse Rate 78 73 Pulse Rate [Monitor] 87 Respiratory Rate 18 17 18 Blood Pressure 169/122 H Blood Pressure [Right Arm] Pulse Oximetry 98 Oxygen Delivery Method 09/05/22 12:12 09/05/22 12:22 Temperature Pulse Rate 72 Pulse Rate [Monitor] Respiratory Rate Blood Pressure 158/92 H Blood Pressure [Right Arm] Pulse Oximetry Oxygen Delivery Method Results Labs Labs: Short CBC 09/04/22 09/05/22 Range/Units 22:05 04:19 WBC 10.6 9.1 (4.0-11.0) 10^3/uL Hgb 15.1 14.4 (14.0-18.0) g/dL Hct 43.5 42.0 (42.0-54.0) % Plt Count 207 191 (150-450) 10^3/uL BMP 09/04/22 09/05/22 22:05 04:19 Sodium 137 138 Potassium 3.6 3.8 Chloride 102 103 Carbon Dioxide 27.4 26.8 BUN 12.0 12.0 Creatinine 1.04 0.99 Glucose 115 H 105 Calcium 9.0 8.8 Liver Function 09/05/22 Range/Units 04:19 Total Bilirubin 0.5 (0.2-1.0) mg/dL AST 11 L (15-37) U/L ALT 26 (16-63) U/L Alkaline Phosphatase 87 (46-116) U/L Albumin 3.6 (3.4-5.0) g/dL Assessment and Plan Assessment and Plan (1) Chest pain: Assessment and Plan: Reproducible chest pain, negative HS troponin levels x 3, EKG without acute changes or ST elevation/depression. Most likely CP is r/t other etiology as musculoskeletal, also in setting of u ncontrolled HTN (2) HTN (hypertension): Assessment and Plan: Uncontrolled HTN- will add to med regime lisinopril for management (3) Dyslipidemia: Assessment and Plan: Elevated lipid levels therefore lipitor was started- recommend repeat liver function and lipid level in 2-3 months monitor for any myalgias (4) Tobacco abuse: Assessment and Plan: States he is going to quit smoking again. (5) Syncope and collapse: Assessment and Plan: Awaiting echocardiogram and stress test as ordered by primary service to assess cardiac function and perfusion Recommended pt to limit caffeinated beverages and maintain adequate hydration with water and electrolyte beverages- orthostatic vitals as inpt to assess for POTS/neurocardiogenic components. Being that he has financial concerns r/t no medical insurance will hold off on event monitor at this time. Telemetry review does not show any concerning arrythmias since admit. Plan as above
--- NOTE | 2022-09-05 14:40 | CM.NOTE ---
Rounds made with Dr. Grajeda, pt scheduled for stress test tomorrow. No discharge needs identified.
--- NOTE | 2022-09-05 17:43 | P.HP_ITS ---
H&P: HPI History of Present Illness Chief complaint: CHEST PAIN FOR 3 DAYS Narrative: 42 y o male presents with midsternal pressure like cp, intermittent, lasts for a few minutes to an hour, no aggravating or relieving factors, no associated with exertion, food intake and not associated with any other symptoms like palpitations, SOB, nausea, GERD, abdominal pain. Admitted overnight for CP r/o ACS. Patient is current smoker, hx of untreated HTN, has HLD on labs and morbidly obese. Cardiac enzymes are negative. EKG shows non specific changes. Still reporting intermittent chest discomfort. No prior hx of CAD/CHF. Review of Systems ROS Status of ROS 10 or more systems reviewed and unremarkable except as noted in history and below [facility] Medical History (Updated 09/05/22 @ 17:49 by Shaikh Nicci MD) Social History (Updated 09/05/22 @ 12:28 by STEVEN FLORES) Smoking status: Current every day smoker Non-prescribed substance use: former substance user Non-prescribed substance use details: cocaine Meds Home Medications and Allergies Home Medications Medication Instructions Recorded Confirmed Type No Known Home Medications 09/04/22 09/04/22 History Allergies Allergy/AdvReac Type Severity Reaction Status Date / Time amoxicillin Allergy Verified 09/04/22 22:06 prednisone Allergy Verified 09/04/22 22:06 narcotic AdvReac Severe Uncoded 09/04/22 23:14 Exam Constitutional Vital Signs - 24 hr 09/04/22 21:57 09/04/22 18:38 09/04/22 21:58 Temperature 98.0 F Pulse Rate 93 H Pulse Rate [Monitor] 101 H Respiratory Rate 20 19 Blood Pressure 119/74 176/116 H Blood Pressure [Right Arm] 172/86 H Pulse Oximetry 99 98 95 Oxygen Delivery Method Room Air 09/04/22 22:23 09/04/22 22:31 09/04/22 22:46 Temperature Pulse Rate 105 H 91 H 92 H Pulse Rate [Monitor] Respiratory Rate 19 17 22 Blood Pressure 146/104 H 134/96 H 142/91 H Blood Pressure [Right Arm] Pulse Oximetry 94 L 94 L 95 Oxygen Delivery Method 09/04/22 22:46 09/04/22 22:46 09/04/22 23:01 Temperature Pulse Rate 93 H 97 H 103 H Pulse Rate [Monitor] Respiratory Rate 18 24 18 Blood Pressure 142/91 H 142/91 H 142/109 H Blood Pressure [Right Arm] Pulse Oximetry 93 L 97 95 Oxygen Delivery Method 09/04/22 23:16 09/04/22 23:16 09/04/22 23:31 Temperature Pulse Rate 93 H 89 86 Pulse Rate [Monitor] Respiratory Rate 17 17 19 Blood Pressure 141/101 H 141/101 H 146/92 H Blood Pressure [Right Arm] Pulse Oximetry 94 L 93 L 97 Oxygen Delivery Method 09/04/22 23:46 09/05/22 00:01 09/05/22 00:16 Temperature Pulse Rate 104 H 98 H 90 Pulse Rate [Monitor] Respiratory Rate 10 L 15 21 Blood Pressure 141/97 H 130/102 H 127/94 H Blood Pressure [Right Arm] Pulse Oximetry 95 93 L 93 L Oxygen Delivery Method 09/05/22 00:16 09/05/22 00:31 09/05/22 00:46 Temperature Pulse Rate 88 89 90 Pulse Rate [Monitor] Respiratory Rate 21 12 22 Blood Pressure 127/94 H 131/92 H 141/89 H Blood Pressure [Right Arm] Pulse Oximetry 95 98 96 Oxygen Delivery Method 09/05/22 01:58 09/05/22 02:05 09/05/22 02:05 Temperature 96.6 F L Pulse Rate Pulse Rate [Monitor] 83 Respiratory Rate 24 15 Blood Pressure Blood Pressure [Right Arm] 142/93 H 166/122 H Pulse Oximetry 96 93 L Oxygen Delivery Method Room Air Room Air 09/05/22 02:05 09/05/22 02:05 09/05/22 03:09 Temperature Pulse Rate 83 74 Pulse Rate [Monitor] 83 Respiratory Rate Blood Pressure Blood Pressure [Right Arm] Pulse Oximetry Oxygen Delivery Method 09/05/22 04:02 09/05/22 04:20 09/05/22 04:20 Temperature 97.8 F Pulse Rate 83 87 Pulse Rate [Monitor] 87 Respiratory Rate 16 Blood Pressure Blood Pressure [Right Arm] 142/91 H Pulse Oximetry 96 Oxygen Delivery Method Room Air 09/05/22 04:20 09/05/22 04:40 09/05/22 05:27 Temperature Pulse Rate 87 85 86 Pulse Rate [Monitor] Respiratory Rate Blood Pressure Blood Pressure [Right Arm] Pulse Oximetry 93 L Oxygen Delivery Method 09/05/22 06:44 09/05/22 07:46 09/05/22 07:49 Temperature Pulse Rate 83 87 Pulse Rate [Monitor] 72 Respiratory Rate 16 Blood Pressure Blood Pressure [Right Arm] Pulse Oximetry 94 L Oxygen Delivery Method 09/05/22 07:49 09/05/22 07:58 09/05/22 09:52 Temperature 98.0 F Pulse Rate 73 82 85 Pulse Rate [Monitor] Respiratory Rate 18 Blood Pressure Blood Pressure [Right Arm] 138/86 H Pulse Oximetry 96 Oxygen Delivery Method Room Air 09/05/22 10:39 09/05/22 00:46 09/05/22 01:01 Temperature Pulse Rate 73 82 90 Pulse Rate [Monitor] Respiratory Rate 18 11 L Blood Pressure 141/89 H 127/92 H Blood Pressure [Right Arm] Pulse Oximetry 91 L 94 L Oxygen Delivery Method 09/05/22 01:16 09/05/22 01:31 09/05/22 01:46 Temperature Pulse Rate 86 82 82 Pulse Rate [Monitor] Respiratory Rate 15 17 17 Blood Pressure 155/93 H 139/89 H 142/93 H Blood Pressure [Right Arm] Pulse Oximetry 94 L 96 98 Oxygen Delivery Method 09/05/22 01:48 09/05/22 01:50 09/05/22 01:53 Temperature Pulse Rate 92 H 84 85 Pulse Rate [Monitor] Respiratory Rate 13 21 21 Blood Pressure 176/118 H Blood Pressure [Right Arm] Pulse Oximetry 95 Oxygen Delivery Method 09/05/22 01:53 09/05/22 01:53 09/05/22 02:00 Temperature Pulse Rate 84 86 79 Pulse Rate [Monitor] Respiratory Rate 11 L 15 14 Blood Pressure 176/118 H 166/122 H Blood Pressure [Right Arm] Pulse Oximetry 99 98 Oxygen Delivery Method 09/05/22 04:17 09/05/22 07:41 09/05/22 07:50 Temperature Pulse Rate 83 79 75 Pulse Rate [Monitor] Respiratory Rate 10 L 19 19 Blood Pressure 142/91 H Blood Pressure [Right Arm] Pulse Oximetry 99 97 Oxygen Delivery Method 09/05/22 08:00 09/05/22 08:10 09/05/22 08:20 Temperature Pulse Rate 86 76 78 Pulse Rate [Monitor] Respiratory Rate 16 9 L 16 Blood Pressure Blood Pressure [Right Arm] Pulse Oximetry Oxygen Delivery Method 09/05/22 08:30 09/05/22 08:40 09/05/22 08:50 Temperature Pulse Rate 95 H 81 79 Pulse Rate [Monitor] Respiratory Rate 16 20 19 Blood Pressure Blood Pressure [Right Arm] Pulse Oximetry Oxygen Delivery Method 09/05/22 09:00 09/05/22 09:10 09/05/22 09:20 Temperature Pulse Rate 77 81 81 Pulse Rate [Monitor] Respiratory Rate 15 21 17 Blood Pressure Blood Pressure [Right Arm] Pulse Oximetry Oxygen Delivery Method 09/05/22 09:30 09/05/22 09:40 09/05/22 09:50 Temperature Pulse Rate 78 78 81 Pulse Rate [Monitor] Respiratory Rate 26 H 52 H 17 Blood Pressure Blood Pressure [Right Arm] Pulse Oximetry Oxygen Delivery Method 09/05/22 10:00 09/05/22 10:10 09/05/22 10:20 Temperature Pulse Rate 86 77 77 Pulse Rate [Monitor] Respiratory Rate 16 14 20 Blood Pressure Blood Pressure [Right Arm] Pulse Oximetry Oxygen Delivery Method 09/05/22 10:30 09/05/22 10:40 09/05/22 10:50 Temperature Pulse Rate 79 88 78 Pulse Rate [Monitor] Respiratory Rate 20 18 14 Blood Pressure Blood Pressure [Right Arm] Pulse Oximetry Oxygen Delivery Method 09/05/22 10:52 09/05/22 10:52 09/05/22 12:12 Temperature Pulse Rate 78 73 Pulse Rate [Monitor] 87 Respiratory Rate 18 17 18 Blood Pressure 169/122 H Blood Pressure [Right Arm] Pulse Oximetry 98 Oxygen Delivery Method 09/05/22 12:12 09/05/22 12:22 09/05/22 13:28 Temperature Pulse Rate 72 79 Pulse Rate [Monitor] Respiratory Rate 16 Blood Pressure 158/92 H Blood Pressure [Right Arm] 158/92 H Pulse Oximetry 96 Oxygen Delivery Method Room Air 09/05/22 14:38 09/05/22 16:04 09/05/22 16:04 Temperature Pulse Rate 80 89 Pulse Rate [Monitor] 80 Respiratory Rate 19 Blood Pressure Blood Pressure [Right Arm] Pulse Oximetry Oxygen Delivery Method 09/05/22 16:04 Temperature 97.8 F Pulse Rate Pulse Rate [Monitor] Respiratory Rate 19 Blood Pressure 142/98 H Blood Pressure [Right Arm] Pulse Oximetry 96 Oxygen Delivery Method Documenting provider has reviewed patient's vital signs: yes Common normals: no apparent distress and oriented x3 Nutritional appearance: obese HENMT Common normals: normocephalic and head/scalp atraumatic Eye Common normals: conjunctivae normal and no scleral icterus Respiratory Common normals: normal respiratory effort, no use of accessory muscles and clear to auscultation bilaterally Cardio Common normals: no JVD, regular rate, regular rhythm, S1 normal heart sound and S2 normal heart sound GI Common normals: Normal to inspection, nondistended, normoactive bowel sounds present, soft to palpation, non-tender and no hepatosplenomegaly Extremity Common normals: normal to inspection and full ROM Neuro Common normals: oriented x3, moves all extremities, no focal motor deficits and no sensory deficits noted Psych Common normals: mental status grossly normal, thought process normal, cooperative, denies homicidal ideation and denies suicidal ideation Results Labs Labs: Short CBC 09/04/22 09/05/22 Range/Units 22:05 04:19 WBC 10.6 9.1 (4.0-11.0) 10^3/uL Hgb 15.1 14.4 (14.0-18.0) g/dL Hct 43.5 42.0 (42.0-54.0) % Plt Count 207 191 (150-450) 10^3/uL BMP 09/04/22 09/05/22 22:05 04:19 Sodium 137 138 Potassium 3.6 3.8 Chloride 102 103 Carbon Dioxide 27.4 26.8 BUN 12.0 12.0 Creatinine 1.04 0.99 Glucose 115 H 105 Calcium 9.0 8.8 Liver Function 09/05/22 Range/Units 04:19 Total Bilirubin 0.5 (0.2-1.0) mg/dL AST 11 L (15-37) U/L ALT 26 (16-63) U/L Alkaline Phosphatase 87 (46-116) U/L Albumin 3.6 (3.4-5.0) g/dL Assessment and Plan Assessment and Plan (1) Chest pain: Assessment and Plan: Intermittent midsternal CP. Negative cardiac enzymes. Pain is non exertional in nature but has multiple risk factors for underlying CAD NPO after MN for Nuclear stress test. C/w ASA, statin. Qualifiers: Chest pain type: unspecified Qualified Code(s): R07.9 - Chest pain, unspecified (2) HTN (hypertension): Assessment and Plan: supposed to be on antihypertensives but not using anything currently. Started on Norvasc. Qualifiers: Hypertension type: primary hypertension Qualified Code(s): I10 - Essential (primary) hypertension (3) Dyslipidemia: Assessment and Plan: LDL > 170, Started on Lipitor 40 daily (4) Tobacco abuse: Assessment and Plan: Educated on smoking cessation .
[2022-09-05 18:27] LABS: Estimated Average Glucose 100 mg/dL; Glycohemoglobin A1C 5.1 % (4.5-6.2)
[2022-09-05] MEDS: ATORVASTATIN CALCIUM 40 MG TABLET PO (22:51)
[2022-09-06] VITALS (74 sets, daily range): BP systolic 134–154; BP diastolic 87–98; PULSE 62–121; RESP 16–20; TEMP 36.9–37.1; O2SAT 94–95
--- NOTE | 2022-09-06 09:11 | PM.STRESS ---
Stress Test Stress Test Allergies Allergy/AdvReac Type Severity Reaction Status Date / Time amoxicillin Allergy Verified 09/04/22 22:06 prednisone Allergy Verified 09/04/22 22:06 narcotic AdvReac Severe Uncoded 09/04/22 23:14 Requesting physician: Shaikh Nicci Procedure: Exercise Cardiolite stress test General Information: Reason for Stress Test: Chest pain Cardiac History and Risk Factors: Smokes Resting 12 - Lead Electrocardiogram: Normal sinus rhythm with rate of 93. Trend towards left axis deviation. Poor R wave progression in the lateral leads. Biphasic T-waves in leads III and aVF. Stress Test: Protocol: Marco protocol was followed, with injection of Cardiolite once target heart rate was achieved. Exercise capacity: Good exercise capacity reaching Marco stage 3, with a total exercise time of 7 minutes, equivalent to 3.4MPH, 14% grade, & 8.4METs. Blood pressure: Initial: 114/72, Maximum: 174/82, Recovery: 146/78 Rate & rhythm: Patient remained in sinus rhythm during the exercise and recovery portions of the study.? The maximum heart rate was 166, which was 94% of the maximum predicted heart rate 176. ST-segments & T-waves: There were no T-wave changes and mp ST-segment changes when compared to the baseline EKG. Patient response/symptoms: There were no symptoms similar to the chief complaint. Interpretation: Normal exercise stress test. Cardiolite interpretation will be reported separately. Clinical correlation required.
[2022-09-06] MEDS: ASPIRIN 325 MG TABLET PO (09:16)
[2022-09-06] MEDS: CARVEDILOL 3.125 MG TABLET PO (09:16)
[2022-09-06] MEDS: AMLODIPINE BESYLATE 5 MG TABLET PO (09:16)
--- NOTE | 2022-09-06 11:54 | CM.NOTE ---
Rounds made with Dr. Grajeda, awaiting final results of stress test. Possible discharge to home today. No discharge needs identified.
--- NOTE | 2022-09-06 13:07 | P.DS_ITS ---
DS: Providers Provider Date of admission: 09/05/22 02:00 Primary care physician: Non-Staff Physician, Consults: 09/05/22 02:54 Consult to Cardiology Routine Consulting Provider: GUS BRADLEY Attending physician on discharge: Shaikh Nicci Discharging clinician: Shaikh Nicci Anticipated date of discharge: 09/06/22 DS: Diagnosis Discharge Diagnosis (1) Chest pain: Assessment and plan: No sig changes on EKG. Tropx 3 negative. 2D ECHO no WMA, borderline low EF. Nuclear stress test - showed fixed defects anterior/inferior wall. no reversible ischemia. normal exercise portion of the stress test. Will need outpatient f/u with Cardiology. Has an appt in a month with [facility]. Will treat medically with ASA, Lopressor, statin. Qualifiers: Chest pain type: unspecified Qualified Code(s): R07.9 - Chest pain, unspecified (2) HTN (hypertension): Assessment and plan: Improved with addition of Norvasc. Will add lopressor to his regimen due to underlying CAD. Qualifiers: Hypertension type: primary hypertension Qualified Code(s): I10 - Essential (primary) hypertension (3) Dyslipidemia: Assessment and plan: c/w statin. Lipid panel in 6 weeks (4) Tobacco abuse: Assessment and plan: Discussed smoking cessation. DS: Summary Hospital Course Hospital Course: Admitted for chest pain - no sig changes on EKG, negative trop, no sig structural abnormality on 2D ECHO. Nuclear stress test demonstrated Fixed inferior/anterior wall defect, borderline low EF, no reversible ischemia. D/w cardiology. Will treat medically. Will need outpatient f/u with Cardiology and will likely benefit from [facility] as outpatient. Time spent discussing smoking cessation with patient: more than 10 minutes Status at Discharge Overall status at discharge: patient is back to baseline Time Spent with Patient Time attestation: Total time spent providing and/or coordinating discharge services: Time spent: greater than 30 minutes Exam Constitutional Vital Signs - 24 hr 09/05/22 13:28 09/05/22 14:38 09/05/22 16:04 Temperature Pulse Rate 79 80 Pulse Rate [Monitor] 80 Respiratory Rate 16 19 Blood Pressure Blood Pressure [Right Arm] 158/92 H Pulse Oximetry 96 Oxygen Delivery Method Room Air 09/05/22 16:04 09/05/22 16:04 09/05/22 18:23 Temperature 97.8 F Pulse Rate 89 88 Pulse Rate [Monitor] Respiratory Rate 19 Blood Pressure 142/98 H Blood Pressure [Right Arm] Pulse Oximetry 96 Oxygen Delivery Method 09/05/22 21:08 09/05/22 13:26 09/05/22 13:30 Temperature Pulse Rate 85 93 H 77 Pulse Rate [Monitor] Respiratory Rate 15 Blood Pressure Blood Pressure [Right Arm] Pulse Oximetry Oxygen Delivery Method 09/05/22 13:40 09/05/22 13:50 09/05/22 14:00 Temperature Pulse Rate 83 73 79 Pulse Rate [Monitor] Respiratory Rate Blood Pressure Blood Pressure [Right Arm] Pulse Oximetry Oxygen Delivery Method 09/05/22 14:10 09/05/22 14:20 09/05/22 14:30 Temperature Pulse Rate 78 80 79 Pulse Rate [Monitor] Respiratory Rate Blood Pressure Blood Pressure [Right Arm] Pulse Oximetry Oxygen Delivery Method 09/05/22 14:40 09/05/22 14:50 09/05/22 15:00 Temperature Pulse Rate 78 81 81 Pulse Rate [Monitor] Respiratory Rate Blood Pressure Blood Pressure [Right Arm] Pulse Oximetry Oxygen Delivery Method 09/05/22 15:10 09/05/22 15:20 09/05/22 15:30 Temperature Pulse Rate 82 85 74 Pulse Rate [Monitor] Respiratory Rate Blood Pressure Blood Pressure [Right Arm] Pulse Oximetry Oxygen Delivery Method 09/05/22 15:40 09/05/22 15:50 09/05/22 16:00 Temperature Pulse Rate 82 83 Pulse Rate [Monitor] Respiratory Rate Blood Pressure 143/101 H Blood Pressure [Right Arm] Pulse Oximetry Oxygen Delivery Method 09/05/22 16:00 09/05/22 16:10 09/05/22 16:20 Temperature Pulse Rate 87 90 81 Pulse Rate [Monitor] Respiratory Rate Blood Pressure Blood Pressure [Right Arm] Pulse Oximetry Oxygen Delivery Method 09/05/22 16:30 09/05/22 16:40 09/05/22 16:50 Temperature Pulse Rate 86 92 H 87 Pulse Rate [Monitor] Respiratory Rate Blood Pressure Blood Pressure [Right Arm] Pulse Oximetry Oxygen Delivery Method 09/05/22 17:00 09/05/22 17:10 09/05/22 17:20 Temperature Pulse Rate 80 88 86 Pulse Rate [Monitor] Respiratory Rate Blood Pressure Blood Pressure [Right Arm] Pulse Oximetry Oxygen Delivery Method 09/05/22 17:30 09/05/22 17:40 09/05/22 17:50 Temperature Pulse Rate 80 92 H 87 Pulse Rate [Monitor] Respiratory Rate Blood Pressure Blood Pressure [Right Arm] Pulse Oximetry Oxygen Delivery Method 09/05/22 18:00 09/05/22 18:10 09/05/22 18:20 Temperature Pulse Rate 89 91 H 78 Pulse Rate [Monitor] Respiratory Rate Blood Pressure Blood Pressure [Right Arm] Pulse Oximetry Oxygen Delivery Method 09/05/22 18:30 09/05/22 18:40 09/05/22 18:50 Temperature Pulse Rate 86 98 H 92 H Pulse Rate [Monitor] Respiratory Rate Blood Pressure Blood Pressure [Right Arm] Pulse Oximetry Oxygen Delivery Method 09/05/22 19:00 09/05/22 19:10 09/05/22 19:12 Temperature Pulse Rate 96 H 90 Pulse Rate [Monitor] Respiratory Rate Blood Pressure 144/109 H Blood Pressure [Right Arm] Pulse Oximetry Oxygen Delivery Method 09/05/22 19:12 09/05/22 19:12 09/05/22 19:20 Temperature Pulse Rate 93 H 92 H Pulse Rate [Monitor] Respiratory Rate Blood Pressure 144/109 H Blood Pressure [Right Arm] Pulse Oximetry Oxygen Delivery Method 09/05/22 19:30 09/05/22 19:40 09/05/22 19:50 Temperature Pulse Rate 78 93 H 89 Pulse Rate [Monitor] Respiratory Rate Blood Pressure Blood Pressure [Right Arm] Pulse Oximetry Oxygen Delivery Method 09/05/22 20:00 09/05/22 20:10 09/05/22 20:00 Temperature 98.4 F Pulse Rate 90 94 H Pulse Rate [Monitor] 82 Respiratory Rate 16 Blood Pressure 144/109 H Blood Pressure [Right Arm] Pulse Oximetry 96 Oxygen Delivery Method 09/05/22 20:00 09/05/22 21:58 09/05/22 23:00 Temperature Pulse Rate 82 73 82 Pulse Rate [Monitor] Respiratory Rate Blood Pressure Blood Pressure [Right Arm] Pulse Oximetry 96 Oxygen Delivery Method 09/06/22 00:00 09/06/22 00:00 09/05/22 20:20 Temperature Pulse Rate 88 90 Pulse Rate [Monitor] Respiratory Rate 16 Blood Pressure Blood Pressure [Right Arm] Pulse Oximetry 94 L Oxygen Delivery Method 09/05/22 20:30 09/05/22 20:40 09/05/22 20:50 Temperature Pulse Rate 90 96 H 113 H Pulse Rate [Monitor] Respiratory Rate Blood Pressure Blood Pressure [Right Arm] Pulse Oximetry Oxygen Delivery Method 09/05/22 21:00 09/05/22 21:10 09/05/22 21:20 Temperature Pulse Rate 96 H 85 75 Pulse Rate [Monitor] Respiratory Rate Blood Pressure Blood Pressure [Right Arm] Pulse Oximetry Oxygen Delivery Method 09/05/22 21:30 09/05/22 21:40 09/05/22 21:50 Temperature Pulse Rate 86 78 87 Pulse Rate [Monitor] Respiratory Rate Blood Pressure Blood Pressure [Right Arm] Pulse Oximetry Oxygen Delivery Method 09/05/22 22:00 09/05/22 22:10 09/05/22 22:20 Temperature Pulse Rate 66 73 69 Pulse Rate [Monitor] Respiratory Rate Blood Pressure Blood Pressure [Right Arm] Pulse Oximetry Oxygen Delivery Method 09/05/22 22:30 09/05/22 22:40 09/05/22 22:50 Temperature Pulse Rate 102 H 69 80 Pulse Rate [Monitor] Respiratory Rate Blood Pressure Blood Pressure [Right Arm] Pulse Oximetry Oxygen Delivery Method 09/05/22 23:00 09/05/22 23:10 09/05/22 23:20 Temperature Pulse Rate 69 75 68 Pulse Rate [Monitor] Respiratory Rate Blood Pressure Blood Pressure [Right Arm] Pulse Oximetry Oxygen Delivery Method 09/05/22 23:30 09/05/22 23:40 09/05/22 23:50 Temperature Pulse Rate 70 69 67 Pulse Rate [Monitor] Respiratory Rate Blood Pressure Blood Pressure [Right Arm] Pulse Oximetry Oxygen Delivery Method 09/06/22 00:00 09/06/22 00:10 09/06/22 00:20 Temperature Pulse Rate 70 82 73 Pulse Rate [Monitor] Respiratory Rate Blood Pressure Blood Pressure [Right Arm] Pulse Oximetry Oxygen Delivery Method 09/06/22 00:29 09/06/22 00:29 09/06/22 00:30 Temperature 98.8 F Pulse Rate 91 H 86 Pulse Rate [Monitor] 73 Respiratory Rate 16 Blood Pressure 154/93 H Blood Pressure [Right Arm] Pulse Oximetry 94 L Oxygen Delivery Method 09/06/22 01:10 09/06/22 02:00 09/06/22 03:05 Temperature Pulse Rate 88 71 72 Pulse Rate [Monitor] Respiratory Rate Blood Pressure Blood Pressure [Right Arm] Pulse Oximetry Oxygen Delivery Method 09/06/22 04:00 09/06/22 06:00 09/06/22 00:40 Temperature Pulse Rate 71 87 75 Pulse Rate [Monitor] Respiratory Rate Blood Pressure Blood Pressure [Right Arm] Pulse Oximetry Oxygen Delivery Method 09/06/22 00:50 09/06/22 01:00 09/06/22 01:10 Temperature Pulse Rate 84 82 76 Pulse Rate [Monitor] Respiratory Rate Blood Pressure Blood Pressure [Right Arm] Pulse Oximetry Oxygen Delivery Method 09/06/22 01:20 09/06/22 01:30 09/06/22 01:40 Temperature Pulse Rate 65 66 70 Pulse Rate [Monitor] Respiratory Rate Blood Pressure Blood Pressure [Right Arm] Pulse Oximetry Oxygen Delivery Method 09/06/22 01:50 09/06/22 02:00 09/06/22 02:10 Temperature Pulse Rate 65 64 70 Pulse Rate [Monitor] Respiratory Rate Blood Pressure Blood Pressure [Right Arm] Pulse Oximetry Oxygen Delivery Method 09/06/22 02:20 09/06/22 02:30 09/06/22 02:40 Temperature Pulse Rate 80 68 66 Pulse Rate [Monitor] Respiratory Rate Blood Pressure Blood Pressure [Right Arm] Pulse Oximetry Oxygen Delivery Method 09/06/22 02:50 09/06/22 03:00 09/06/22 03:10 Temperature Pulse Rate 63 62 68 Pulse Rate [Monitor] Respiratory Rate Blood Pressure Blood Pressure [Right Arm] Pulse Oximetry Oxygen Delivery Method 09/06/22 03:20 09/06/22 03:30 09/06/22 03:40 Temperature Pulse Rate 69 78 75 Pulse Rate [Monitor] Respiratory Rate Blood Pressure Blood Pressure [Right Arm] Pulse Oximetry Oxygen Delivery Method 09/06/22 03:50 09/06/22 04:00 09/06/22 04:10 Temperature Pulse Rate 70 68 65 Pulse Rate [Monitor] Respiratory Rate Blood Pressure Blood Pressure [Right Arm] Pulse Oximetry Oxygen Delivery Method 09/06/22 04:20 09/06/22 04:30 09/06/22 04:40 Temperature Pulse Rate 81 76 93 H Pulse Rate [Monitor] Respiratory Rate Blood Pressure Blood Pressure [Right Arm] Pulse Oximetry Oxygen Delivery Method 09/06/22 04:50 09/06/22 05:00 09/06/22 05:10 Temperature Pulse Rate 74 73 67 Pulse Rate [Monitor] Respiratory Rate Blood Pressure Blood Pressure [Right Arm] Pulse Oximetry Oxygen Delivery Method 09/06/22 05:20 09/06/22 05:30 09/06/22 05:40 Temperature Pulse Rate 71 69 64 Pulse Rate [Monitor] Respiratory Rate Blood Pressure Blood Pressure [Right Arm] Pulse Oximetry Oxygen Delivery Method 09/06/22 05:50 09/06/22 05:55 09/06/22 05:55 Temperature Pulse Rate 69 65 Pulse Rate [Monitor] 81 Respiratory Rate 18 Blood Pressure 146/98 H Blood Pressure [Right Arm] Pulse Oximetry 95 Oxygen Delivery Method 09/06/22 06:00 09/06/22 06:40 09/06/22 07:41 Temperature Pulse Rate 90 77 83 Pulse Rate [Monitor] Respiratory Rate Blood Pressure Blood Pressure [Right Arm] Pulse Oximetry Oxygen Delivery Method 09/06/22 06:10 09/06/22 06:20 09/06/22 06:30 Temperature Pulse Rate 78 96 H 80 Pulse Rate [Monitor] Respiratory Rate Blood Pressure Blood Pressure [Right Arm] Pulse Oximetry Oxygen Delivery Method 09/06/22 06:40 09/06/22 06:50 09/06/22 07:00 Temperature Pulse Rate 85 81 91 H Pulse Rate [Monitor] Respiratory Rate Blood Pressure Blood Pressure [Right Arm] Pulse Oximetry Oxygen Delivery Method 09/06/22 07:10 09/06/22 07:20 09/06/22 07:24 Temperature Pulse Rate 71 83 82 Pulse Rate [Monitor] Respiratory Rate 18 Blood Pressure 152/96 H Blood Pressure [Right Arm] Pulse Oximetry 95 Oxygen Delivery Method 09/06/22 07:24 09/06/22 07:30 09/06/22 07:40 Temperature Pulse Rate 83 109 H 83 Pulse Rate [Monitor] Respiratory Rate Blood Pressure Blood Pressure [Right Arm] Pulse Oximetry Oxygen Delivery Method 09/06/22 07:30 09/06/22 09:16 09/06/22 09:25 Temperature 98.4 F Pulse Rate 103 H Pulse Rate [Monitor] Respiratory Rate Blood Pressure 152/96 H Blood Pressure [Right Arm] Pulse Oximetry Oxygen Delivery Method 09/06/22 11:00 09/06/22 07:50 09/06/22 08:00 Temperature Pulse Rate 86 81 82 Pulse Rate [Monitor] Respiratory Rate Blood Pressure Blood Pressure [Right Arm] Pulse Oximetry Oxygen Delivery Method 09/06/22 08:42 09/06/22 08:50 09/06/22 09:00 Temperature Pulse Rate 112 H 100 H 109 H Pulse Rate [Monitor] Respiratory Rate Blood Pressure Blood Pressure [Right Arm] Pulse Oximetry Oxygen Delivery Method 09/06/22 09:10 09/06/22 09:20 09/06/22 09:30 Temperature Pulse Rate 116 H 106 H 103 H Pulse Rate [Monitor] Respiratory Rate Blood Pressure Blood Pressure [Right Arm] Pulse Oximetry Oxygen Delivery Method 09/06/22 09:40 09/06/22 09:50 09/06/22 10:00 Temperature Pulse Rate 105 H 104 H 100 H Pulse Rate [Monitor] Respiratory Rate Blood Pressure Blood Pressure [Right Arm] Pulse Oximetry Oxygen Delivery Method 09/06/22 10:18 09/06/22 10:20 09/06/22 10:30 Temperature Pulse Rate 102 H 103 H 91 H Pulse Rate [Monitor] Respiratory Rate Blood Pressure Blood Pressure [Right Arm] Pulse Oximetry Oxygen Delivery Method 09/06/22 10:40 09/06/22 10:50 09/06/22 11:00 Temperature Pulse Rate 101 H 121 H 92 H Pulse Rate [Monitor] Respiratory Rate Blood Pressure Blood Pressure [Right Arm] Pulse Oximetry Oxygen Delivery Method 09/06/22 11:03 09/06/22 11:03 09/06/22 11:05 Temperature 98.5 F Pulse Rate 88 91 H Pulse Rate [Monitor] Respiratory Rate 20 Blood Pressure 142/98 H 134/87 H Blood Pressure [Right Arm] Pulse Oximetry 94 L Oxygen Delivery Method 09/06/22 11:05 09/06/22 11:05 09/06/22 13:00 Temperature Pulse Rate 100 H 91 H Pulse Rate [Monitor] Respiratory Rate Blood Pressure 134/87 H Blood Pressure [Right Arm] Pulse Oximetry Oxygen Delivery Method Documenting provider has reviewed patient's vital signs: yes Common normals: no apparent distress and oriented x3 Nutritional appearance: obese HENMT Common normals: normocephalic and head/scalp atraumatic Eye Common normals: conjunctivae normal and no scleral icterus Respiratory Common normals: normal respiratory effort, no use of accessory muscles and clear to auscultation bilaterally Cardio Common normals: no JVD, regular rate, regular rhythm, S1 normal heart sound and S2 normal heart sound GI Common normals: Normal to inspection, nondistended, normoactive bowel sounds present, soft to palpation, non-tender and no hepatosplenomegaly Extremity Common normals: normal to inspection and full ROM Neuro Common normals: oriented x3, moves all extremities, no focal motor deficits and no sensory deficits noted Psych Common normals: mental status grossly normal, thought process normal, cooperative, denies homicidal ideation and denies suicidal ideation DS: Data Data Completed and Pending Labs on day of discharge: Labs from last 24 hours 09/05/22 18:05 Estimat Average Glucose 100 Hemoglobin A1c 5.1 Discharge Plan Discharge Disposition: Home, Self-Care Discharge Medications: New aspirin 81 mg tablet,chewable 81 mg PO DAILY Qty: 30 0RF amlodipine 10 mg tablet 10 mg PO DAILY Qty: 30 0RF metoprolol tartrate [Lopressor] 50 mg tablet 25 mg PO BID Qty: 30 0RF atorvastatin [Lipitor] 40 mg tablet 40 mg PO DAILY Qty: 30 0RF Activity: resume usual activities as tolerated Diet: low fat, low cholesterol and low salt diet Forms: Portal Instructions Follow Up Appointments: PCP in one week [facility] cardiology in one month
--- NOTE | 2022-09-09 09:50 | CM.DCFOLLOWU ---
3 discharge follow up call attempts made, no answer 1st attempt 09/07/2022 2nd attempt 09/08/22 3rd attempt 09/09/22
== END 2022-09-06 13:50 | disposition home or self-care (01) ==
LOC: ER 23:05 → ICU 09-05 02:02
PROVIDERS: Admitting Provider Internal Medicine; Emergency Provider Emergency Medicine; Visit Provider Internal Medicine
DX: R07.9 Chest pain, unspecified (principal); I10 Essential (primary) hypertension; E78.5 Hyperlipidemia, unspecified; F17.210 Nicotine dependence, cigarettes, uncomplicated; E66.01 Morbid (severe) obesity due to excess calories; R55 Syncope and collapse; Z68.39 Body mass index [BMI] 39.0-39.9, adult
CPT/HCPCS: 36415; 71045; 78452; 80048; 80053; 80061; 83036; 83880; 84443; 84484; 85025; 85378; 93005; 93017; 93306; 99285; A9500; G0378; Q3014

== ENCOUNTER 2022-11-10 06:39 | Outpatient (OUT) | payer SELFPAY ==
[2022-11-10 09:47] LABS: Anion Gap 12.7; BUN Creatinine Ratio 12.2; Calcium 8.6 mg/dL (8.5-10.1); Carbon Dioxide 25.2 mmol/L (21.0-32.0); Chloride 104 mmol/L (98-107); Estimated GFR (African America >60 (>=60); Estimated GFR (Non-African Ame >60 (>=60); Glucose 127 mg/dL (74-106); Potassium 3.9 mmol/L (3.5-5.1); Sodium 138 mmol/L (136-145)
== END 2022-11-10 06:40 | disposition home or self-care (01) ==
LOC: LAB 06:40
PROVIDERS: PCP Nurse Practitioner; Visit Provider Internal Medicine Interventional Cardiology
DX: I10 Essential (primary) hypertension (principal)
CPT/HCPCS: 36415; 80048

== ENCOUNTER 2022-12-28 06:30 | Emergency (ER) | payer SELFPAY ==
[2022-12-28 06:37] VITALS: BP 147/98; PULSE 93; RESP 18; TEMP 36.7; O2SAT 97; BMI 40.6
--- NOTE | 2022-12-28 06:44 | PC.NURSE ---
Pt presents to ER for non traumatic right ankle pain Pt states he has not sustained an injury that he is aware of Pt states he does have a history of tendonitis in the Achilles tendon but this is a whole different monster Pt states this pain is unbearable, pt is unable to bear weight Pt's foot placed on a pillow and ice pack applied
--- NOTE | 2022-12-28 07:08 | XR_ITS ---
The [address] [address] Patient Name: LAWSON LOPEZ MRN: [id number] date: 1980 Sex: M Assigned Patient Location: ER Current Patient Location: ER Accession/Order Number: [id number] Exam Date: 12/28/2022 07:18 Report Date: 12/28/2022 07:34 At the request of: PEDRO CHERRY Procedure: XR ankle RT min 3V PROCEDURE: XR ankle RT min 3V COMPARISON: None. HISTORY: atraumatic pain FINDINGS: BONES:No acute fracture or dislocation. Enthesopathic spurring of the calcaneus with remote fracture of the medial enthesopathic spur at the Achilles insertion SOFT TISSUES:Negative. No visible soft tissue swelling. EFFUSION:None visible. OTHER: Negative. XR/XR ankle RT min 3V IMPRESSION: No acute abnormality Electronically authenticated by: ADELINE HAMMER Date: 12/28/2022 07:34
--- NOTE | 2022-12-28 07:11 | ED.GENADUL1 ---
HPI - General Adult General Chief complaint: Extremity Injury, Lower Stated complaint: LOWER INJURY Time Seen by Provider: 12/28/22 07:04 Source: patient Mode of arrival: Wheelchair History of Present Illness HPI narrative: 42-year-old male presents for right ankle pain. It started yesterday and was much worse today. There was no injury. He points to the anterior ankle area to indicate area of most pain. No pain in the foot or calf or knee. No unusual activity or new shoes or boots. Related Data Previous Rx's Medication Instructions Recorded amlodipine 10 mg tablet 10 mg PO DAILY #30 tabs 09/06/22 aspirin 81 mg chewable tablet 81 mg PO DAILY #30 tabs 09/06/22 atorvastatin 40 mg tablet (Lipitor) 40 mg PO DAILY #30 tabs 09/06/22 metoprolol tartrate 50 mg tablet 25 mg PO BID #30 tabs 09/06/22 (Lopressor) acetaminophen 300 mg-codeine 30 mg 1 tab PO Q6H PRN pain 5 days #20 12/28/22 tablet tabs ibuprofen 800 mg tablet 800 mg PO Q8H PRN pain #20 tabs 12/28/22 Allergies Allergy/AdvReac Type Severity Reaction Status Date / Time amoxicillin Allergy Verified 09/04/22 22:06 prednisone Allergy Verified 09/04/22 22:06 narcotic AdvReac Severe Uncoded 09/04/22 23:14 Review of Systems ROS Narrative A ten point review of systems is negative except as noted above. [facility] Medical History (Updated 12/28/22 @ 07:42 by Ashok Jean MD) Dyslipidemia ?E78.5 - Hyperlipidemia, unspecified (ICD-10) HTN (hypertension) ?I10 - Essential (primary) hypertension (ICD-10) Syncope and collapse ?R55 - Syncope and collapse (ICD-10) Tobacco abuse ?Z72.0 - Tobacco use (ICD-10) Social History (Updated 09/05/22 @ 12:28 by STEVEN FLORES) Smoking status: Never smoker Non-prescribed substance use: former substance user Non-prescribed substance use details: cocaine Exam Narrative Exam Narrative: Nurses note and vital signs reviewed and patient is not hypoxic. General: The patient appears uncomfortable. Skin: Warm, dry, no pallor noted. There is no rash noted. Head: Normocephalic, atraumatic Eye: Normal conjunctiva, no drainage Ears, Nose, Mouth, and Throat: oral mucosa is moist. Nares patent. Cardiovascular: Regular Rate and Rhythm Respiratory: Patient is in no distress, no accessory muscle use Back: non-tender GI: nontender Musculoskeletal: right ankle is not visibly swollen. There is no bruising or rash or erythema. No tenderness in the foot. No tenderness in the calf. He has tenderness anterior in the ankle. Neurological: A&O, normal speech Psychiatric: Cooperative Constitutional Vital Signs, click to edit/add: Last Vital Signs Temp 98.1 F 12/28/22 06:37 Pulse 90 12/28/22 07:32 Resp 18 12/28/22 07:32 BP 138/96 H 12/28/22 07:32 Pulse Ox 98 12/28/22 07:32 O2 Del Method Room Air 12/28/22 06:37 Course Vital Signs Vital signs: Vital Signs Temperature 98.1 F 12/28/22 06:37 Pulse Rate 93 H 12/28/22 06:37 Respiratory Rate 18 12/28/22 06:37 Blood Pressure 147/98 H 12/28/22 06:37 Pulse Oximetry 97 12/28/22 06:37 Oxygen Delivery Method Room Air 12/28/22 06:37 Temperature 98.1 F 12/28/22 06:37 Pulse Rate 90 12/28/22 07:32 Respiratory Rate 18 12/28/22 07:32 Blood Pressure 138/96 H 12/28/22 07:32 Pulse Oximetry 98 12/28/22 07:32 Oxygen Delivery Method Room Air 12/28/22 06:37 Medical Decision Making [facility] Narrative Medical decision making narrative: x-rays are negative. Cause uncertain. Roshan wrap applied, application checked by me and found be appropriate, he is neurovascularly intact. He is also placed on crutches and provided pain medicine and was referred to podiatry. Treatment diagnosis and follow-up were discussed with the patient. Differential Diagnosis Differential Diagnosis: ankle sprain, osteoarthritis, gout Imaging Data ankle x-ray: Radiologist's impression: Procedure: XR ankle RT min 3V PROCEDURE: XR ankle RT min 3V COMPARISON: None. HISTORY: atraumatic pain FINDINGS: BONES:No acute fracture or dislocation. Enthesopathic spurring of the calcaneus with remote fracture of the medial enthesopathic spur at the Achilles insertion SOFT TISSUES:Negative. No visible soft tissue swelling. EFFUSION:None visible. OTHER: Negative. IMPRESSION: No acute abnormality Electronically authenticated by: ADELINE HAMMER Date: 12/28/2022 07:34 Discharge Plan Discharge Chief Complaint: Extremity Injury, Lower Clinical Impression: Acute ankle pain Patient Disposition: Home, Self-Care Time of Disposition Decision: 07:40 Condition: Good Mode of Transportation: Private Vehicle Prescriptions / Home Meds: New ibuprofen 800 mg tablet 800 mg PO Q8H PRN (Reason: pain) Qty: 20 0RF acetaminophen-codeine 300-30 mg tablet 1 tab PO Q6H PRN (Reason: pain) 5 Days Qty: 20 0RF No Action aspirin 81 mg tablet,chewable 81 mg PO DAILY Qty: 30 0RF amlodipine 10 mg tablet 10 mg PO DAILY Qty: 30 0RF metoprolol tartrate [Lopressor] 50 mg tablet 25 mg PO BID Qty: 30 0RF atorvastatin [Lipitor] 40 mg tablet 40 mg PO DAILY Qty: 30 0RF Instructions: Crutch Instructions (ED), Arthralgia (ED) Additional Instructions: follow-up with Dr. Salcido Stand Alone Forms: Portal Instructions Referrals: ELIAS DUKES [Primary Care Provider] - 1 week
[2022-12-28 07:32] VITALS: BP 138/96; PULSE 90; RESP 18; O2SAT 98
== END 2022-12-28 07:58 | disposition home or self-care (01) ==
PROVIDERS: Emergency Provider Emergency Medicine; PCP Nurse Practitioner
DX: M25.571 Pain in right ankle and joints of right foot (principal); E78.5 Hyperlipidemia, unspecified; I10 Essential (primary) hypertension; Z79.899 Other long term (current) drug therapy; Z79.82 Long term (current) use of aspirin
CPT/HCPCS: 73610; 99283

== ENCOUNTER 2023-01-16 19:16 | Emergency (ER) | payer SELFPAY ==
[2023-01-16 19:22] VITALS: BP 158/110; PULSE 87; RESP 18; TEMP 36.6; O2SAT 98
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
[2023-01-16 20:06] LABS: Basophils Absolute Auto 0.1 10^3/uL (0.0-0.1); Basophils Percent Auto 0.5 % (0.2-2.0); Eosinophils Absolute Auto 0.2 10^3/uL (0.0-0.7); Eosinophils Percent Auto 1.7 % (0.9-7.0); Hematocrit 41.9 % (42.0-54.0); Hemoglobin 14.3 g/dL (14.0-18.0); Immature Granulocytes Abs Auto 0.07 10^3/uL (0.00-0.03); Immature Granulocytes Pct Auto 0.6 % (0.0-0.5); Lymphocytes Absolute Auto 1.7 10^3/uL (1.2-3.8); Lymphocytes Percent Auto 15.2 % (20.5-60.0); Mean Corpuscular HGB Conc 34.1 g/dL (29.9-35.2); Mean Corpuscular Hemoglobin 30.5 pg (25.9-34.0); Mean Corpuscular Volume 89.3 fL (80.0-94.0); Mean Platelet Volume 10.3 fL (9.5-13.5); Monocytes Absolute Auto 0.9 10^3/uL (0.3-0.8); Monocytes Percent Auto 8.3 % (1.7-12.0); Neutrophils Absolute Auto 8.2 10^3/uL (1.4-6.5); Neutrophils Percent Auto 73.7 % (43.0-75.0); Platelet Count 210 10^3/uL (150-450); Red Blood Count 4.69 10^6/uL (4.70-6.10); Red Cell Distribution Width 12.5 % (11.0-15.0); White Blood Count 11.1 10^3/uL (4.0-11.0)
[2023-01-16 20:17] LABS: Alanine Aminotransferase 26 U/L (16-63); Albumin Globulin Ratio 1.1; Albumin Level 4.2 g/dL (3.4-5.0); Alkaline Phosphatase 94 U/L (46-116); Anion Gap 10.7; Aspartate Amino Transferase 17 U/L (15-37); BUN Creatinine Ratio 12.2; Bilirubin Total 0.8 mg/dL (0.2-1.0); Calcium 9.2 mg/dL (8.5-10.1); Carbon Dioxide 30.2 mmol/L (21.0-32.0); Chloride 101 mmol/L (98-107); Estimated GFR (African America >60 (>=60); Estimated GFR (Non-African Ame >60 (>=60); Globulin 3.8 g/dL; Glucose 97 mg/dL (74-106); Potassium 3.9 mmol/L (3.5-5.1); Sodium 138 mmol/L (136-145)
[2023-01-16 20:24] LABS: Lactate/Lactic Acid 1.3 mmol/L (0.4-2.0)
[2023-01-16] MEDS: ORPHENADRINE CITRATE 100 MG TABLET.ER PO (21:55)
[2023-01-16] MEDS: KETOROLAC TROMETHAMINE 30 MG/ML VIAL IVP (21:55)
[2023-01-16 22:04] VITALS: BP 140/99; PULSE 92; RESP 16; O2SAT 99
== END 2023-01-16 22:06 | disposition home or self-care (01) ==
PROVIDERS: Emergency Provider Internal Medicine; PCP Nurse Practitioner
DX: S39.012A Strain of muscle, fascia and tendon of lower back, initial encounter (principal); S29.011A Strain of muscle and tendon of front wall of thorax, initial encounter; V43.52XA Car driver injured in collision with other type car in traffic accident, initial encounter; F11.11 Opioid abuse, in remission; E78.5 Hyperlipidemia, unspecified; I10 Essential (primary) hypertension
CPT/HCPCS: 36415; 71250; 72131; 74177; 80053; 83605; 85025; 96374; 99285; Q9967

== ENCOUNTER 2023-04-06 21:55 | Emergency (ER) | payer SELFPAY ==
[2023-04-06] VITALS (14 sets, daily range): BP systolic 152–174; BP diastolic 97–102; PULSE 117–132; RESP 17–33; TEMP 39.3; O2SAT 89–97; BMI 44.3
--- OUTSIDE RECORDS SUMMARY | 2023-04-06 22:03 | XMS_ITS | CCD ---
Author Name Unknown Address [address] [place] [address] Organization [facility] Care Team Providers Care Student Finance Advisor Name Role Phone Unavailable Primary Care Provider UnavailCarina Thompson Primary Care Provider Unavailable Primary Care Provider UnavailSTEVEN Gutierrez Attending Unavailable NO FAMILY, PHYSICIAN Primary Care Provider Unava ilable ARSALAN Elizondo Emergency Provider Alfie [facility] Jenelle E Emergency Provider [phone] MEENAKSHI Schmidt Emergency Provider [phone] NO FAMILY, PHYSICIAN Primary Care Provider Unava ilARSALAN Hurtado Emergency Provider [phone] Alfie [facility] Jenelle E Emergency Provider [phone] MEENAKSHI Schmidt Emergency Provider REQUEST, NONE LISTED Primary Care Unavaila ble KATE ALVAREZ Admitting Unavailable KATE ALVAREZ Attending Unavailable KATE ALVAREZ Consulting Unavailable AMAN PURCELL Consulting Unavailable REQUEST, NONE LISTED Primary Care Unavaila ble JESUS ., JOSEFINA Admitting Unavailable DEVAN LOPEZID Attending Unavailable LIDIA .JOHANNY Unavailabl e James Johnston Consulting Unavailable NO FAMILY, PHYSICIAN Primary Care Provider Unava ilable DO Kris Morales Emergency Provider MARIEL Rodas Primary Care Provider MD Socorro Osullivan Emergency Provider [place], Jenelle E Admitting Unavailable Silvinoore Jenelle E Attending Unavailable NO FAMILY, PHYSICIAN Primary Care Unavailable NO FAMILY, PHYSICIAN Primary Care Unavailable Tiki Schmidt E Admitting Unavailable Roxana Tiki E Attending Unavailable Kris Morales Admitting Unavailable Kris Morales Attending Unavailable NO FAMILY, PHYSICIAN Primary Care Unavailable Sofia-Well Visits, Lisa Jimenez Attending Tata vailable NO FAMILY, PHYSICIAN Primary Care Unavailable Sofia-Well Visits, Lisa Jimenez Admitting Tata vailable Elian Elizondo Admitting Unavailable Elian Elizondo Attending Unavailable NO FAMILY, PHYSICIAN Primary Care Unavailable Isabel Rodas Primary Care Unavailable Socorro Osullivan Admitting Unavailable Socorro Osullivan Attending Unavailable [facility] Attending Unavailable [place] Admitting Unavailable [place] Attending Unavailable [place] Referring Unavailable Allergies Allergy Classification Reported Allergen(s) Allergy Type Date of Onset Reaction(s) Facility (10 sources) Amoxicillin; Translations: [AMOXICILLIN] Drug Allergy 6 Unknown Reaction [place], [place] (5 sources) fentaNYL; Translations: [FENTANYL] Drug Allergy 9 [place] (10 sources) predniSONE; Translations: [PREDNISONE] Drug Allergy 6 Other (See Comments) [place] (1 source) Amoxicillin Drug Allergy 3 [facility] Repository (1 source) predniSONE Drug Allergy 3 [facility] Repository (1 source) Amoxicillin Drug Allergy 3 [facility] Repository (1 source) predniSONE Drug Allergy 3 [facility] Repository (1 source) amLODIPine; Translations: [AMLODIPINE] Drug Allergy 3 [facility] Repository Medications Current Medications Medication Drug Class(es) Dates Sig (Normalized) Sig (Original) acetaminophen 500 mg oral tablet (4 sources) Start: 03-19-2020 acetaminophen (TYLENOL) tablet 1,000 mg Start: 03-19-2020 take 2 tablets by mo uth every six hours as needed for pain acetaminophen (TYLENOL) 325 MG tablet Take 2 tablets by mouth every 6 hours as needed for Pain 30 tablet 0 03/19/2020 Active Start: 02-05-2019 acetaminophen (TYLENOL) tablet 650 mg amLODIPine 10 mg oral tablet (6 sources) Dihydropyridine Calcium Channel Bronson Start: 10-11-2022 take 10 mg by mouth once daily Amlodipine Active 10 MG PO Daily October 11, 2022 12:00am Start: 02-08-2019 take 1 tablet by tracy th once daily amLODIPine (NORVASC) 5 MG tablet Take 1 tablet by mouth daily 30 tablet 0 02/08/2019 Active Start: 02-08-2019 take 1 tablet by tracy th once daily amLODIPine (NORVASC) 5 MG tablet Take 1 tablet by mouth daily 30 tablet 0 02/08/2019 Active Start: 02-06-2019 amLODIPine (NO RVASC) tablet 5 mg atorvastatin 40 mg oral tablet (1 source) HMG-CoA Reductase Inhibitor Start: 10-11-2022 take 40 mg by mouth once daily Atorvastatin Active 40 MG PO Daily October 11, 2022 12:00am 2 ml dicyclomine hydrochloride 10 mg/ml injection (7 sources) Anticholinergic Start: 06-08-2021 dicyclomine (BENTYL) injection 20 mg Start: 06-08-2021 take 1 capsule by mo uth four times daily dicyclomine (BENTYL) 10 MG capsule Take 1 capsule by mouth 4 times daily 40 capsule 0 06/08/2021 Active Start: 02-05-2019 take 1 capsule by mo uth three times daily as needed for pain dicyclomine (BENTYL) 10 MG capsule Take 1 capsule by mouth 3 times daily as needed (abdominal pain) 30 capsule 0 02/07/2019 Active escitalopram 5 mg oral tablet (1 source) Serotonin Reuptake Inhibitor Start: 10-11-2022 take 5 mg by mouth once daily Escitalopram Oxalate Active 5 MG PO Daily October 11, 2022 12:00am 1 ml ketorolac tromethamine 30 mg/ml cartridge (2 sources) Nonsteroidal Anti-inflammatory Drug, Cyclooxygenase Inhibitor Start: 02-05-2019 End: 02-10-2019 ketorolac (TORADOL) injection 30 mg magnesium hydroxide 80 mg/ml oral suspension (1 source) Start: 02-05-2019 magnesium hydroxide (MILK OF MAGNESIA) 400 MG/5ML suspension 30 mL 24 hr metoprolol succinate 50 mg extended release oral tablet (1 source) beta-Adrenergic Bronson Start: 10-11-2022 take 50 mg by mouth once daily Metoprolol Succinate Active 50 MG PO Daily [place] 1st, 2023 12:00am naproxen 500 mg oral tablet (3 sources) Nonsteroidal Anti-inflammatory Drug Start: 10-21-2019 take 1 tablet by mouth twice daily naproxen (NAPROSYN) 500 MG tablet Take 1 tablet by mouth 2 times daily 14 tablet 0 10/21/2019 Active Completed/Discontinued Medications Medication Drug Class(es) Dates Sig (Normalized) Sig (Original) bisacodyl 5 mg delayed release oral tablet (1 source) Stimulant Laxative Start: 02-06-2019 End: 02-06-2019 bisacodyl (DULCOLAX) EC tablet 5 mg 200 ml ciprofloxacin 2 mg/ml injection (2 sources) Quinolone Antimicrobial Start: 02-05-2019 End: 02-06-2019 ciprofloxacin (CIPRO) IVPB 400 mg dexamethasone phosphate 10 mg/ml injectable solution (1 source) Corticosteroid Start: 03-19-2020 End: 03-19-2020 dexamethasone (DECADRON) injection 10 mg ibuprofen 800 mg oral tablet (6 sources) Nonsteroidal Anti-inflammatory Drug Start: 12-17-2021 End: 08-18-2022 take 800 mg by mouth every six hours Ibuprofen Discontinued 800 MG PO Q6H December 17, 2021 12:00am August 18, 2022 12:04pm Start: 03-19-2020 take 1 tablet by tracy th every eight hours as needed for pain ibuprofen (ADVIL;MOTRIN) 800 MG tablet Take 1 tablet by mouth every 8 hours as needed for Pain 30 tablet 0 03/19/2020 Active Iopamidol (1 source) Radiographic Contrast Agent Start: 02-05-2019 End: 02-05-2019 iopamidol (ISOVUE-370) 76 % injection 75 mL iopamidol (ISOVUE-370) 76 % injection 75 mL (2 sources) Start: 06-08-2021 End: 06-08-2021 iopamidol (ISOVUE-370) 76 % injection 75 mL Start: 03-19-2020 End: 03-19-2020 iopamidol (ISOVUE-370) 76 % injection 75 mL 100 ML metroNIDAZOLE 5 MG/ML Injection (2 sources) Nitroimidazole Antimicrobial Start: 02-05-2019 End: 02-06-2019 metronidazole (FLAGYL) 500 mg in NaCl 100 mL IVPB premix 2 ml ondansetron 2 mg/ml injection (5 sources) Serotonin-3 Receptor Antagonist Start: 06-08-2021 End: 06-08-2021 ondansetron (ZOFRAN) injection 4 mg Start: 06-08-2021 take 1 tablet by tracy th three times daily as needed for nausea ondansetron (ZOFRAN) 4 MG tablet Take 1 tablet by mouth 3 times daily as needed for Nausea or Vomiting 15 tablet 0 06/08/2021 Active Start: 03-19-2020 End: 03-19-2020 ondansetron (ZOFRAN) injecti on 4 mg Start: 02-05-2019 End: 02-05-2019 ondansetron (ZOFRAN) injecti on 4 mg 50 ml sodium chloride 9 mg/m l injection (7 sources) Start: 03-19-2020 End: 03-20-2020 0.9 % sodium chloride bolus Start: 02-05-2019 0.9 % sodium c hloride infusion Start: 02-05-2019 sodium chlorid e flush 0.9 % injection 10 mL Start: 02-05-2019 End: 02-05-2019 0.9 % sodium chloride bolus Problems Active Problems Problem Classification Problem Date Documented Date Episodic/Chronic Chronic obstructive pulmonary disease and bronchiectasis (5 sources) Bronchitis; Translations: [Bronchitis, not specified as acute or chronic] 12-02-2021 Episodic Congestive heart failure; nonhypertensive (2 sources) Acute systolic (congestive) heart failure; Translations: [Acute systolic (congestive) heart failure] Onset: 11-17-2022 Chronic Coronary atherosclerosis and other heart disease (2 sources) Unstable angina; Translations: [Unstable angina] Onset: 11-01-2022 Chronic Essential hypertension (11 sources) Essential hypertension; Translations: [Essential (primary) hypertension] Onset: 04-23-2017 02-07-2019 Chronic Headache; including migraine (1 source) Headache; Translations: [Post-traumatic headache, unspecified, not intractable] 08-18-2022 Episodic Headache; including migraine (6 sources) Headache; including migraine; Translations: [HEADACHE UNSPECIFIED] Onset: 12-02-2021 Noninfectious gastroenteritis (1 source) Enteritis of small intestine; Translations: [Noninfective gastroenteritis and colitis, unspecified] Episodic Other circulatory disease (3 sources) Elevated blood pressure; Translations: [Elevated blood-pressure reading, without diagnosis of hypertension] 12-19-2021 Episodic Other connective tissue disease (1 source) Left achilles tendonitis; Translations: [Left Achilles tendinitis] Other nervous system disorders (1 source) Tingling of skin; Translations: [Paresthesia of skin] 10-11-2022 Episodic Other nervous system disorders (1 source) Paresthesia of skin; Translations: [Paresthesia of skin] Onset: 10-11-2022 Episodic Screening and history of mental health and substance abuse codes (3 sources) Tobacco use and exposure - finding; Translations: [History of tobacco abuse] Onset: 06-22-2016 06-22-2016 Chronic Screening and history of mental health and substance abuse codes (2 sources) Tobacco use and exposure - finding; Translations: [Personal history of nicotine dependence] Onset: 06-22-2016 06-22-2016 Episodic Sprains and strains (4 sources) Sprain of wrist; Translations: [Unspecified sprain of right wrist, initial encounter] 12-17-2021 Episodic Unclassified (1 source) CONTACT W/AND (SUSP) EXPOS COVID-19; Translations: [CONTACT W/AND (SUSP) EXPOS COVID-19] Onset: 05-13-2022 Unclassified (1 source) Unspecified sprain of right wrist, initial encounter; Translations: [Unspecified sprain of right wrist, initial encounter] Onset: 01-21-2022 Unclassified (1 source) Pain in right wrist; Translations: [Pain in right wrist] Onset: 12-17-2021 Unclassified (1 source) Cough, unspecified; Translations: [Cough, unspecified] Onset: 12-02-2021 Viral infection (1 source) Other specified viral infection; Translations: [COVID-19] Episodic Past or Other Problems Problem Classification Problem Date Documented Date Episodic/Chronic Abdominal pain (5 sources) Abdominal pain; Translations: [Unspecified abdominal pain] Onset: 02-05-2019 02-07-2019 Episodic Intestinal obstruction without hernia (1 source) Intestinal obstruction co-occurrent and due to decreased peristalsis; Translations: [Ileus (HCC)] Episodic Nonspecific chest pain (4 sources) Chest pain; Translations: [Chest pain, unspecified] Onset: 06-22-2016 06-22-2016 Episodic Other lower respiratory disease (4 sources) Multiple nodules of lung; Translations: [Other nonspecific abnormal finding of lung field] Onset: 06-22-2016 06-22-2016 Episodic Other screening for suspected conditions (not mental disorders or infectious disease) (2 sources) Abnormal result of other cardiovascular function study; Translations: [Abnormal result of other cardiovascular function study] Onset: 11-01-2022 Episodic Other upper respiratory infections (4 sources) Acute pharyngitis; Translations: [Acute pharyngitis, unspecified] Onset: 04-23-2017 04-23-2017 Episodic Results Test Name Value Interpretation Reference Range Facil ity 36on 11-21-2022 36 Patient's girlfriend called to make you aware that when he tried to fill the RX for Farxiga, it was going to cost him over $500. Needless to say, he did not fill or start it. He currently has no insurance so is there something else he could try that would be less expensive? I looked up Jardiance, and unfortunately I think the cost is very similar. Help! Thanks. Normal [facility] CBCon 11-17-2022 Erythrocyte distribution width (RBC) [Ratio] 12.9 % Normal 11.5-15.0 [facility] Comment on above: Performed By: #### L [id number] ####[facility] ([facility])[address] [place] [address] ERYTHROCYTE MEAN CORPUSCULAR HEMOGLOBIN CONCENTRATION (G/DL) BY AUTOMATED 34.2 g/dL Normal 32.0-35.0 [facility] Comment on above: Performed By: #### L [id number] ####[facility] ([facility])[address] [place] [address] Hematocrit (Bld) [Volume fraction] 43.6 % Normal 39.0-55.0 [facility] Comment on above: Performed By: #### L [id number] ####[facility] ([facility])[address] [place] [address] Hemoglobin (Bld) [Mass/Vol] 14.9 g/dL Normal 13.0-17.0 [facility] Comment on above: Performed By: #### L [id number] ####[facility] ([facility])[address] [place] [address] MCH (RBC) [Entitic mass] 30.2 pg Normal 27.0-33.0 [facility] Comment on above: Performed By: #### L [id number] ####[facility] ([facility])[address] [place] [address] MCV (RBC) [Entitic vol] 88.4 fL Normal 82.0-98.0 [facility] Comment on above: Performed By: #### L [id number] ####[facility] ([facility])[address] [place] [address] PLATELETS (10*3/UL) IN BLOOD AUTOMATED COUNT 237 10*3/uL Normal 150-400 [facility] Comment on above: Performed By: #### L [id number] ####[facility] ([facility])[address] [place] [address] RBC (Bld) [#/Vol] 4.93 10*6/uL Normal 4.20-5.70 [facility] Comment on above: Performed By: #### L [id number] ####[facility] ([facility])[address] [place] [address] WBC (Bld) [#/Vol] 10.15 10*3/uL Normal 4.00-10.60 [facility] Comment on above: Performed By: #### L [id number] ####[facility] ([facility])[address] [place] [address] HPon 11-17-2022 HP H&P reviewed. The patient was examined and there are no changes to the H&P. Mr. Chester, a 42 year old male patient known to have HTN, HLD, and tobacco smoking, is presenting for coronary angiography with possible intervention. Patient had abnormal stress test with low EF of 46%. Patient is aware of the procedure. All concerns have been addressed. An informed consent was signed prior to the procedure. [facility] HP H&P reviewed. The patient was examined and there are no changes to the H&P. Garret Michelle MD, MPH, FACC, FSCAI, [facility] Interventional Cardiology Pager Email: [email or web address] 11-17-2022 KOKO RN educated pt on d/c instructions. RN encouraged pt to voice any questions or concerns. Pt verbalizes no questions or concerns at this time. Pt was wheeled off of unit with all of belongings. [facility] Orders Onlyon 11-09-2022 Orders Only [id number] Lawson Cavanaugh 1980 M Date Provider Department Center 11/09/2022 ImeldaMicaelaPrimoDOROTAPIERRE [facility] [place] [facility] Family History Problem Relation Age of Onset Coronary artery disease Mother's Brother Peripheral vascular disease Mother's Brother Family Status - Relation Status Age at Mother's Brother [facility] HPon 10-31-2022 [facility] Cardiology Clinic Note Chief Complaint: Patient here for follow up [facility] for chest pain. He was seen as inpatient consult by Melania Alarcon CNP. Had inpatient stress test. HPI: Lawson Cavanaugh is a 42 y.o. male seen by Melania Rosas as an inpatient consult 09/05/2022 for chest pain; felt to be reproducible chest pain with normal troponins x3, no significant EKG changes. Likely chest pain related to musculoskeletal etiologies also in the setting of uncontrolled hypertension. Past medical history: Hypertension, dyslipidemia, tobacco abuse, syncope For the past 2 months, he has noticed worsening exertional shortness of breath and chest pressure. This occurs typically with exertion. He has to rest and the discomfort/pressure resolves. He denies orthopnea or paroxysmal external dyspnea, he has no lower extremity edema. He stopped smoking after his recent hospital admission. He drinks an alcoholic beverage maybe once a month. No family history of premature coronary artery disease Cardiology ROS: Review of Systems Cardiovascular: Positive for dyspnea on exertion and leg swelling. Neurological: Positive for headaches. Psychiatric/Behavior al: The patient is nervous/anxious. All other systems reviewed and are negative. Past Medical History He has no past medical history on file. Surgical History He has no past surgical history on file. Social History He has no history on file for tobacco use, alcohol use, and drug use. Family History No family history on file. Allergies Patient has no allergy information on record. Medications No current outpatient medications on file. Last Recorded Vitals BP (!) 165/102 (BP Location: Left arm, Patient Position: Sitting) Pulse 79 Ht 1.753 m (5' 9 ) Wt 128 kg (283 lb) SpO2 97% BMI 41.79 kg/m??? Physical Examination: GENERAL: alert and oriented x3, well developed, in no acute distress. HEAD: atraumatic, normocephalic. EYES: CRISTINE, EOMI. NECK: trachea midline, no JVD present, no carotid bruits present. CARDIAC: S1, S2 present. RRR. No murmur, rubs, or gallops. RESPIRATORY: CTAB, no increased effort of breathing, no rales, rhonchi, or wheezing. ABDOMEN: soft, nontender, nondistended. EXTREMITIES: no lower extremity edema, peripheral pulses are 2+ bilaterally. No rash/skin discoloration present. NEURO: strength/sensation equal and symmetric in bilateral upper and lower extremities. PSYCH: appropriate mood, affect, and judgement. Investigations: Echocardiogram 09/05/2022: Indications: Chest pain, hypertension, smoker Conclusion: Left ventricular systolic function is low normal limits; EF 50 to 55%. Right ventricle is normal size and systolic function. No significant valvular dysfunction. No pericardial effusion Stress test 09/06/2022: Normal exercise stress test. Nuclear portion: Conclusion fixed defects in the basal anterior wall and inferior wall. No reversible ischemia. EF 46%. Hypokinesis of associated hester. Assessment: Chest pain Dyspnea on exertion Uncontrolled hypertension Dyslipidemia Smoker Abnormal stress test Systolic dysfunction; ejection fraction 46% on stress test Plan: Will start the patient on aspirin 81 mg daily Continue lisinopril and uptitrate as needed; will consider addition of an SGLT2 inhibitor, and spironolactone after his cardiac catheterization Discontinue Toprol-XL and start Coreg 6.25 mg p.o. twice daily and uptitrate as needed Given his risk factor profile, abnormal stress test particularly reduced ejection fraction, I have recommended proceeding with cardiac catheterization; we will schedule him for a right heart catheterization and coronary angiography via right internal jugular and left radial approach in the coming week or two Further recommendations pending the above Garret Michelle MD, MPH, FACC, [facility], [facility] Interventional Cardiology Pager Email: [email or web address] Normal [facility] Office Visiton 10-31-2022 Follow-up visit [id number] JohnLawson Rendon 1980 M Date Provider Department Center 10/31/2022 DaviePrimoGARRET MICHELLE CINDY Sin Family History Problem Relation Age of Onset Coronary artery disease Mother's Brother Peripheral vascular disease Mother's Brother Family Status - Relation Status Age at Mother's Brother Level of Service:36410 MS OFFICE/OUTPATIENT ESTABLISHED HIGH MDM 40-54 MIN Normal [facility] Orders Onlyon 10-31-2022 Orders Only [id number] JohnLawson vance 1980 Provider Department Center 10/31/2022 TAE BENÍTEZ CINDY Sin Family History Problem Relation Age of Onset Coronary artery disease Mother's Brother Peripheral vascular disease Mother's Brother Family Status - Relation Status Age at Mother's Brother Normal [facility] Activated partial thrombopla stin time (aPTT) in platelet poor plasma by coagulation aOrdered By: Socorro Osullivan on 10-11-2022 aPTT Coag (PPP) [Time] 27.7 s 25.1-36.5 [facility] B-Type Natriuretic Peptideon 10-11-2022 Natriuretic peptide B (Bld) [Mass/Vol] 21.0 pg/mL Normal 5-100 [facility] Comment on above: Result Comment: PERF ORMED BY: [place] [address] PATHOLOGIST RESPIRATORY CARE TECHNICIAN BRICE STEPHEN M.D. Performed By: #### B MP, HS TROP, CBC, PT, BNP, CK, PTT #### [address] Basic Metabolic Panelon Anion gap [Moles/Vol] 10.7 mmol/L Normal 6.0-15.0 [facility] Comment on above: Performed By: #### B MP, HS TROP, CBC, PT, BNP, CK, PTT ####[place] [address] [place] [id number] [facility] Calcium [Mass/Vol] 9.5 mg/dL Normal 8.6-10.3 [facility] Comment on above: Performed By: #### B MP, HS TROP, CBC, PT, BNP, CK, PTT ####[place] [address] [place] [id number] [facility] Chloride [Moles/Vol] 102 mmol/L Normal 98-107 [facility] Comment on above: Performed By: #### B MP, HS TROP, CBC, PT, BNP, CK, PTT ####[place] [id number] CO2 [Moles/Vol] 29.1 mmol/L Normal 21.0-31.0 [facility] Comment on above: Performed By: #### B MP, HS TROP, CBC, PT, BNP, CK, PTT ####[address] Creatinine [Mass/Vol] 0.79 mg/dL Normal 0.70-1.30 [facility] Comment on above: Performed By: #### B MP, HS TROP, CBC, PT, BNP, CK, PTT ####[address] Creatinine Clr Calc Pharmacy 158.41 [facility] Comment on above: Result Comment: PERF ORMED BY: [facility] [address] [place] [id number] PATHOLOGIST RESPIRATORY CARE TECHNICIAN BRICE STEPHEN M.D. Performed By: #### B MP, HS TROP, CBC, PT, BNP, CK, PTT ####[address] GFR/1.73 sq M.predicted MDRD (S/P/Bld) [Vol rate/Area] mL/min/{1.73_m2} [facility] Comment on above: Performed By: #### B MP, HS TROP, CBC, PT, BNP, CK, PTT ####[place] [id number] [place] Glucose [Mass/Vol] 90 mg/dL Normal 70-100 [facility] Comment on above: Result Comment: [facility] Glucose Reference Range is dependent on time and content of last meal. Glucose of more than 200 mg/dL in a nonstressed, ambulatory subject supports the diagnosis of Diabetes Mellitus. ADA recommended reference range Performed By: #### B MP, HS TROP, CBC, PT, BNP, CK, PTT ####[place] [address] Potassium [Moles/Vol] 3.8 mmol/L Normal 3.5-5.1 [facility] Comment on above: Performed By: #### B MP, HS TROP, CBC, PT, BNP, CK, PTT ####[place] [address] Sodium [Moles/Vol] 138 mmol/L Normal 136-145 [facility] Comment on above: Performed By: #### B MP, HS TROP, CBC, PT, BNP, CK, PTT ####[place] [address] Urea nitrogen [Mass/Vol] 11 mg/dL Normal 7-25 [facility] Comment on above: Performed By: #### B MP, HS TROP, CBC, PT, BNP, CK, PTT ####[place] [address] Basophils Auto (Bld) [#/Vol] Ordered By: Socorro Osullivan on 10-11-2022 Basophils (Bld) [#/Vol] 0.1 10*3/uL 0.0-0.2 [facility] Basophils/100 WBC Auto (Bld) Ordered By: Socorro Osullivan on 10-11-2022 Basophils/100 WBC (Bld) 0.9 % . [facility] Calcium [Mass/volume] in Ser um or PlasmaOrdered By: Socorro Osullivan on 10-11-2022 Calcium [Mass/Vol] 9.5 mg/dL 8.6-10.3 [facility] Carbon dioxide, total [Moles /volume] in Serum or PlasmaOrdered By: Socorro Osullivan on 10-11-2022 CO2 [Moles/Vol] 29.1 mmol/L 21.0-31.0 [facility] Chloride [Moles/volume] in S josselin or PlasmaOrdered By: Socorro Osullivan on 10-11-2022 Chloride [Moles/Vol] 102 mmol/L 98-107 [facility] Complete Blood Count Auto Di ffon 10-11-2022 Basophils (Bld) [#/Vol] 0.1 10*3/uL Normal 0.0-0.2 [facility] Comment on above: Result Comment: PERF ORMED BY: [place] [address] PATHOLOGIST RESPIRATORY CARE TECHNICIAN BRICE STEPHEN M.D. Performed By: #### B MP, HS TROP, CBC, PT, BNP, CK, PTT #### [address] Basophils/100 WBC (Bld) 0.9 % Normal . [facility] Comment on above: Performed By: #### B MP, HS TROP, CBC, PT, BNP, CK, PTT #### [address] Eosinophils (Bld) [#/Vol] 0.2 10*3/uL Normal 0.0-0.45 [facility] Comment on above: Performed By: #### B MP, HS TROP, CBC, PT, BNP, CK, PTT #### [address] Eosinophils/100 WBC (Bld) 2.5 % Normal . [facility] Comment on above: Performed By: #### B MP, HS TROP, CBC, PT, BNP, CK, PTT #### [facility] [address] [place] [address] Erythrocyte distribution width (RBC) [Ratio] 13.3 % Normal 12.0-14.8 [facility] Comment on above: Performed By: #### B MP, HS TROP, CBC, PT, BNP, CK, PTT #### [address] Hematocrit (Bld) [Volume fraction] 40.4 % Normal 38.8-50.0 [facility] Comment on above: Performed By: #### B MP, HS TROP, CBC, PT, BNP, CK, PTT #### [address] Hemoglobin (Bld) [Mass/Vol] 14.2 g/dL Normal 13.0-17.0 [facility] Comment on above: Performed By: #### B MP, HS TROP, CBC, PT, BNP, CK, PTT #### [address] Lymphocytes (Bld) [#/Vol] 1.8 10*3/uL Normal 1.00-4.8 [facility] Comment on above: Performed By: #### B MP, HS TROP, CBC, PT, BNP, CK, PTT #### [address] Lymphocytes/100 WBC (Bld) 18.6 % Normal . [facility] Comment on above: Performed By: #### B MP, HS TROP, CBC, PT, BNP, CK, PTT #### [address] MCH (RBC) [Entitic mass] 30.4 pg Normal 27.5-35.2 [facility] Comment on above: Performed By: #### B MP, HS TROP, CBC, PT, BNP, CK, PTT #### [address] MCV (RBC) [Entitic vol] 86.6 fL Normal 83.5-101 [facility] Comment on above: Performed By: #### B MP, HS TROP, CBC, PT, BNP, CK, PTT #### [address] Mean Corpuscular HGB Conc 35.1 g/dL Normal 32.5-35.6 [facility] Comment on above: Performed By: #### B MP, HS TROP, CBC, PT, BNP, CK, PTT #### [address] [address] [place] Monocytes (Bld) [#/Vol] 0.7 10*3/uL Normal 0.0-0.8 [facility] Comment on above: Performed By: #### B MP, HS TROP, CBC, PT, BNP, CK, PTT #### [address] Monocytes/100 WBC (Bld) 18.08 % Normal 0.00-20.00 [facility] Comment on above: Performed By: #### B MP, HS TROP, CBC, PT, BNP, CK, PTT #### [address] Monocytes/100 WBC (Bld) 7.2 % Normal . [facility] Comment on above: Performed By: #### B MP, HS TROP, CBC, PT, BNP, CK, PTT #### [address] Neutrophils (Bld) [#/Vol] 6.7 10*3/uL Normal 1.8-7.7 [facility] Comment on above: Performed By: #### B MP, HS TROP, CBC, PT, BNP, CK, PTT #### [address] Neutrophils/100 WBC (Bld) 70.8 % Normal . [facility] Comment on above: Performed By: #### B MP, HS TROP, CBC, PT, BNP, CK, PTT #### [facility] [address] [place] [address] NRBC% 0.2 /100{WBC} Normal 0-0.5 [facility] Comment on above: Performed By: #### B MP, HS TROP, CBC, PT, BNP, CK, PTT #### [address] Platelet mean volume (Bld) [Entitic vol] 8.0 fL Normal 6.6-10.1 [facility] Comment on above: Performed By: #### B MP, HS TROP, CBC, PT, BNP, CK, PTT #### [address] [place] [address] [place] Platelets (Bld) [#/Vol] 218 10*3/uL Normal 150-450 [facility] Comment on above: Performed By: #### B MP, HS TROP, CBC, PT, BNP, CK, PTT #### [facility] [address] RBC (Bld) [#/Vol] 4.67 10*6/uL Normal 3.90-5.60 [facility] Comment on above: Performed By: #### B MP, HS TROP, CBC, PT, BNP, CK, PTT #### [facility] [address] WBC (Bld) [#/Vol] 9.5 10*3/uL Normal 4.1-10.5 [facility] Comment on above: Performed By: #### B MP, HS TROP, CBC, PT, BNP, CK, PTT #### [facility] [address] Creatine Kinaseon 10-11-2022 CK [Catalytic activity/Vol] 87 U/L Normal 30-223 [facility] Comment on above: Performed By: #### B MP, HS TROP, CBC, PT, BNP, CK, PTT ####[facility] Creatine kinase [Enzymatic a ctivity/volume] in Serum or PlasmaOrdered By: Socorro Osullivan on 10-11-2022 CK [Catalytic activity/Vol] 87 U/L [facility] Creatinine [Mass/volume] in Serum or PlasmaOrdered By: Socorro Osullivan on 10-11-2022 Creatinine [Mass/Vol] 0.79 mg/dL 0.70-1.30 [facility] ECG 12 lead ECGon 10-11-2022 ECG 12 lead ECG [facility] [address] [place] [address] Electrocardiograph Report Signed Patient: Lawson Cavanaugh MR#: [id number] 168 : 1980 Acct:[id number] Age/Sex: 42 / M ADM Date: 10/11/22 Loc: ER Room: Type: [facility] ER Attending Dr: Ordering Provider: Socorro Osullivan MD Date of Service: 10/11/2204/04/1247 ECG/ECG 12 lead ECG: Neuro Symptoms/Deficit Copies to: Test Reason : Blood Pressure : 163/103 mmHG Vent. Rate : 081 BPM Atrial Rate : 081 BPM P-R Int : 162 ms QRS Dur : 090 ms QT Int : 380 ms P-R-T Axes : 052 -34 060 degrees QTc Int : 441 ms Normal sinus rhythm Left axis deviation Cannot rule out Anterior infarct (cited on or before 18-AUG-2022) Abnormal ECG When compared with ECG of 18-AUG-2022 11:56, No significant change was found Confirmed by MARCELA MARTINEZ DO ([id number]) on 10/11/2022 4:18:13 PM Referred By: Electronically Signed By:MARCELA MARTINEZ DO Transcribed By: MUS Signed By Marcela Martinez DO 10/11 1618 Normal [facility] Eosinophils Auto (Bld) [#/Vo l]Ordered By: Socorro Osullivan on 10-11-2022 Eosinophils (Bld) [#/Vol] 0.2 10*3/uL 0.0-0.45 [facility] Eosinophils/100 WBC Auto (Bl d)Ordered By: Socorro Osullivan on 10-11-2022 Eosinophils/100 WBC (Bld) 2.5 % . [facility] Erythrocyte distribution wid th Auto (RBC) [Ratio]Ordered By: Socorro Osullivan on 10-11-2022 Erythrocyte distribution width (RBC) [Ratio] 13.3 % 12.0-14.8 [facility] Glucose [Mass/volume] in Ser um or PlasmaOrdered By: Socorro Osullivan on 10-11-2022 Glucose [Mass/Vol] 90 mg/dL 70-100 [facility] Comment on above: ADA recommended refe rence rangeRandom Glucose Reference Range is dependent on time and content of last meal. Glucose of more than 200 mg/dL in a nonstressed, ambulatory subject supports the diagnosis of Diabetes Mellitus. Hematocrit Auto (Bld) [Volum e fraction]Ordered By: Socorro Osullivan on 10-11-2022 Hematocrit (Bld) [Volume fraction] 40.4 % 38.8-50.0 [facility] Hemoglobin [Mass/volume] in BloodOrdered By: Socorro Osullivan on 10-11-2022 Hemoglobin (Bld) [Mass/Vol] 14.2 g/dL 13.0-17.0 [facility] Ionized Calciumon 10-11-2022 Ionized Calcium 4.8 mg/dL Normal 4.5-5.6 [facility] Comment on above: Result Comment: Perf ormed at: CB - [facility] [address] [id number] [employer] Gat[employer]r: Willi Chester PhD, Phone: [phone] PERFORMED BY: [facility] [address] [place] [address] PATHOLOGIST RESPIRATORY CARE TECHNICIAN BRICE STEPHEN M.D. Performed By: #### C AION #### [facility] , Laboratory - CoagulationOrde red By: Socorro Osullivan on 10-11-2022 PT Coag (PPP) [Time] 12.0 s 9.0-12.9 [facility] Leukocytes [#/volume] correc giselle for nucleated erythrocytes in Blood by Automated counOrdered By: Socorro Osullivan on 10-11-2022 WBC corrected for nucl RBC Auto (Bld) [#/Vol] 9.5 10*3/uL 4.1-10.5 [facility] Lymphocytes Auto (Bld) [#/Vo l]Ordered By: Socorro Osullivan on 10-11-2022 Lymphocytes (Bld) [#/Vol] 1.8 10*3/uL 1.00-4.8 [facility] Lymphocytes/100 WBC Auto (Bl d)Ordered By: Socorro Osullivan on 10-11-2022 Lymphocytes/100 WBC (Bld) 18.6 % . [facility] MCH Auto (RBC) [Entitic mass ]Ordered By: Socorro Osullivan on 10-11-2022 MCH (RBC) [Entitic mass] 30.4 pg 27.5-35.2 [facility] MCHC Auto (RBC) [Mass/Vol]Or dered By: Socorro Osullivan on 10-11-2022 MCHC (RBC) [Mass/Vol] 35.1 g/dL 32.5-35.6 [facility] MCV Auto (RBC) [Entitic vol] Ordered By: Socorro Osullivan on 10-11-2022 MCV (RBC) [Entitic vol] 86.6 fL 83.5-101 [facility] Monocyte distribution width [Entitic volume] in Blood by AutomatedOrdered By: Socorro Osullivan on 10-11-2022 Monocyte distribution width Auto (Bld) [Entitic vol] 18.08 % 0.00-20.00 [facility] Monocytes Auto (Bld) [#/Vol] Ordered By: Socorro Osullivan on 10-11-2022 Monocytes (Bld) [#/Vol] 0.7 10*3/uL 0.0-0.8 [facility] Monocytes/100 WBC Auto (Bld) Ordered By: Socorro Osullivan on 10-11-2022 Monocytes/100 WBC (Bld) 7.2 % . [facility] Natriuretic peptide B [Mass/ Vol]Ordered By: Socorro Osullivan on 10-11-2022 Natriuretic peptide B (Bld) [Mass/Vol] 21.0 pg/mL 5-100 [facility] Neutrophils Auto (Bld) [#/Vo l]Ordered By: Socorro Osullivan on 10-11-2022 Neutrophils (Bld) [#/Vol] 6.7 10*3/uL 1.8-7.7 [facility] Neutrophils/100 WBC Auto (Bl d)Ordered By: Socorro Osullivan on 10-11-2022 Neutrophils/100 WBC (Bld) 70.8 % . [facility] No Panel InformationOrdered By: Socorro Osullivan on 10-11-2022 Estimated GFR (CKD-EPI) > 60.0 mL/Min [facility] Creatinine Clearance (Chem 158.41 [facility] Nucleated erythrocytes [Pres ence] in Blood by Automated countOrdered By: Socorro Osullivan on 10-11-2022 Nucleated RBC Auto Ql (Bld) 0.2 /100{WBC} 0-0.5 [facility] Partial Thromboplastin Timeo n 10-11-2022 aPTT Coag (Bld) [Time] 27.7 s Normal 25.1-36.5 [facility] Comment on above: Result Comment: PERF ORMED BY: [place] [address] PATHOLOGIST RESPIRATORY CARE TECHNICIAN BRICE STEPHEN M.D. Performed By: #### B MP, HS TROP, CBC, PT, BNP, CK, PTT #### [facility] [address] Platelet mean volume Auto (B ld) [Entitic vol]Ordered By: Socorro Osullivan on 10-11-2022 Platelet mean volume (Bld) [Entitic vol] 8.0 fL 6.6-10.1 [facility] Platelet poor plasma interna tional normalized ratio (INR) by coagulation assay (relatOrdered By: Socorro Osullivan on 10-11-2022 INR Coag (PPP) [Relative time] 1.0 {INR} [facility] Comment on above: INR Therapeutic Rang e A) Pre- and Peroperative OAT started two weeks before surgery. NOT HIP SURGERY: 1.5 - 2.5 HIP SURGERY: 2 - 3B) Primary and secondary prevention of venous THROMBOSIS: 2 - 3C) Active venous thrombosis, pulmonary embolismand prevention of recurrent venous thrombosis: 2 - 3D) Prevention of arterial thromboembolismincluding patients with mechanical heart valves: 3 - 4.5 Platelets Auto (Bld) [#/Vol] Ordered By: Socorro Osullivan on 10-11-2022 Platelets (Bld) [#/Vol] 218 10*3/uL 150-450 [facility] Potassium [Moles/volume] in Serum or PlasmaOrdered By: Socorro Osullivan on 10-11-2022 Potassium [Moles/Vol] 3.8 mmol/L 3.5-5.1 [facility] Prothrombin Time INRon 10-11 INR Coag (PPP) [Relative time] 1.0 {INR} Normal [facility] Comment on above: Result Comment: INR Therapeutic Range A) Pre- and Peroperative OAT started two weeks before surgery. NOT HIP SURGERY: 1.5 - 2.5 HIP SURGERY: 2 - 3 B) Primary and secondary prevention of venous THROMBOSIS: 2 - 3 C) Active venous thrombosis, pulmonary embolism and prevention of recurrent venous thrombosis: 2 - 3 D) Prevention of arterial thromboembolism including patients with mechanical heart valves: 3 - 4.5 Performed By: #### B MP, HS TROP, CBC, PT, BNP, CK, PTT #### [facility] [address] PT Coag (PPP) [Time] 12.0 s Normal 9.0-12.9 [facility] Comment on above: Performed By: #### B MP, HS TROP, CBC, PT, BNP, CK, PTT #### [facility] [address] RBC Auto (Bld) [#/Vol]Ordere d By: Socorro Osullivan on 10-11-2022 RBC (Bld) [#/Vol] 4.67 10*6/uL 3.90-5.60 [facility] Serum or plasma anion gap de terminationOrdered By: Socorro Osullivan on 10-11-2022 Anion gap [Moles/Vol] 10.7 mmol/L 6.0-15.0 [facility] Sodium [Moles/volume] in Ser um or PlasmaOrdered By: Socorro Osullivan on 10-11-2022 Sodium [Moles/Vol] 138 mmol/L 136-145 [facility] Troponin I High Sensitivityo n 10-11-2022 Troponin I High Sensitivity 6.3 pg/mL Normal 0.0-20.0 [facility] Comment on above: Result Comment: PERF ORMED BY: [facility] [address] [place] [address] PATHOLOGIST RESPIRATORY CARE TECHNICIAN BRICE STEPHEN M.D. Performed By: #### B MP, HS TROP, CBC, PT, BNP, CK, PTT ####[facility] [address] Troponin I.cardiac [Mass/vol ume] in Serum or Plasma by Detection limit <= 0.01 ng/Ordered By: Socorro Osullivan on 10-11-2022 Troponin I.cardiac DL <= 0.01 ng/mL [Mass/Vol] 6.3 pg/mL 0.0-20.0 [facility] Urea nitrogen [Mass/volume] in Serum or PlasmaOrdered By: Socorro Osullivan on 10-11-2022 Urea nitrogen [Mass/Vol] 11 mg/dL 7-25 [facility] WBC Auto (Bld) [#/Vol]Ordere d By: Socorro Osullivan on 10-11-2022 WBC (Bld) [#/Vol] 9.5 10*3/uL 4.1-10.5 [facility] XR chest 2V*on 10-11-2022 XR chest 2V* [facility] [place] [address] XRay Report Signed Patient: Lawson Cavanaugh MR#: [id number] 168 : 1980 Acct:[id number] Age/Sex: 42 / M ADM Date: 10/11/22 Loc: ER Room: Type: PRE ER Attending Dr: Copies to: Socorro Osullivan MD Ordering Provider: Socorro Osullivan MD Date of Service: 10/11/22 XR/XR chest 2V*: Neuro Symptoms/Deficit Chest 2 views CLINICAL HISTORY: Bilateral hand numbness/tingling. COMPARISON: Chest 12/02/2021 FINDINGS: Heart normal size. Lungs are clear. No free air. XR/XR chest 2V* IMPRESSION: NO ACUTE CARDIOPULMONARY ABNORMALITY. Impression dictated by: Wayne Anguiano Jr., DDomitilaODomitila10/11/2022 1:17 PM Dictation Location: [place] [address] Transcribed By: [facility] 10/11/22 131 Dictated By: Wayne Anguiano Jr, DO 10/11/22 1317 Signed By: 10/11/22 1317 [address] [facility] [address] head/brain wo conon 08-18 CT head/brain wo con [facility] Main [place] [id number] CT Scan Report Signed Patient: Lawson Cavanaugh MR#: [id number] 168 : 1980 Acct:[id number] Age/Sex: 42 / M ADM Date: 08/18/22 Loc: ER Room: Type: REG ER Attending Dr: Copies to: Kris Morales DO Ordering Provider: Kris Morales DO Date of Service: 08/18/22 CT/CT head/brain wo con: hit head, lightheaded Unenhanced head CT TECHNIQUE: Contiguous axial imaging of the head. The CT exam was performed using one or more the following dose reduction techniques: Automated exposure control, adjustment of the MA and/or Kv according to patient size, or use of the iterative reconstruction technique. COMPARISON: None HISTORY: Head injury. Dizziness and nausea. VENTRICLES: Within normal limits ATROPHY: None BRAIN PARENCHYMA: Adequate hunter-white matter differentiation identified. HEMORRHAGE: None HERNIATION: No mass effect or herniation INFARCTION: No recent vascular distribution infarction is seen. EXTRA-AXIAL FLUID COLLECTIONS None MIDBRAIN: Unremarkable HUGH: Unremarkable MEDULLA: Unremarkable SINUSES: Unremarkable ORBITS: Grossly unremarkable MASTOIDS: Unremarkable BONY STRUCTURES Intact ADDITIONAL FINDINGS: CT/CT head/brain wo con IMPRESSION: Unremarkable exam Impression dictated by: Tejinder Alcantara M.D.08/18/2022 12:43 PM Dictation Location: [place] [address] Transcribed By: [facility] 08/18/22 1243 Dictated By: Tejinder Alcantara DO 08/18/22 1242 Signed By: 08/18/22 1243 Normal [facility] ECG 12 lead ECGon 08-18-2022 ECG 12 lead ECG [facility] [place] [address] Electrocardiograph Report Signed Patient: Lawson Cavanaugh MR#: [id number] 168 : 1980 Acct:[id number] Age/Sex: 42 / M ADM Date: 08/18/22 Loc: ER Room: Type: [facility] ER Attending Dr: Ordering Provider: Kris Morales DO Date of Service: 08/18/2211/02/1216 ECG/ECG 12 lead ECG: Dizziness Copies to: Test Reason : Blood Pressure : 159/115 mmHG Vent. Rate : 106 BPM Atrial Rate : 106 BPM P-R Int : 166 ms QRS Dur : 084 ms QT Int : 350 ms P-R-T Axes : 064 -42 036 degrees QTc Int : 464 ms Sinus tachycardia Left axis deviation Cannot rule out Anterior infarct , age undetermined Abnormal ECG No previous ECGs available Confirmed by Kris MORALES DO ([id number]) on 08/18/2022 1:47:48 PM Referred By: Electronically Signed By:Kris MORALES DO Transcribed By: MUS Signed By Kris Morales DO 0 08/18/22 1347 Normal [facility] BNPon 05-16-2022 Natriuretic peptide B (Bld) [Mass/Vol] 51.0 pg/mL Normal <=450.0 [facility] Comment on above: Performed By: #### B PEDIATRIC CNS, CMADM, BMP #### [facility] [address] [place], [place] [address] Dr. Divina Patino CARDIAC DAT 3-6on 3 CK [Catalytic activity/Vol] 43 U/L Normal 39-308 [facility] Comment on above: Performed By: #### L ACT #### [facility] [address] [place] [address] [address] Divina Patino HSTROP 10.6 pg/mL Normal 4.0-76.1 [facility] Comment on above: Result Comment: CUT- OFF POINTS HAVE BEEN ESTABLISHED BASED ON THE FOURTH UNIVERSAL DEFINITIONS OF MYOCARDIAL INFARCTION. THE UPPER REFERENCE LIMIT (URL) OF TROPONIN, DEFINED THE 99TH PERCENTILE OF cTnI DISTRIBUTION IN A REFERENCE POPULATION, HAS BEEN CONFIRMED THE DECISION THRESHOLD FOR UT DIAGNOSIS. Performed By: #### L ACT #### [facility] [address] [place] [address] [address] Divina Patino CARDIAC DAT ADMITon 023 CK [Catalytic activity/Vol] 44 U/L Normal 39-308 [facility] Comment on above: Performed By: #### B PEDIATRIC CNS, CMADM, BMP #### [facility] [address] [place] [address] [address] Divina Patino CK.MB [Mass/Vol] ng/mL Normal <=3.60 [facility] Comment on above: Performed By: #### B PEDIATRIC CNS, CMADM, BMP #### [facility] [address] [place] [address] [address] Divina Patino HSTROP 9.9 pg/mL Normal 4.0-76.1 [facility] Comment on above: Result Comment: CUT- OFF POINTS HAVE BEEN ESTABLISHED BASED ON THE FOURTH UNIVERSAL DEFINITIONS OF MYOCARDIAL INFARCTION. THE UPPER REFERENCE LIMIT (URL) OF TROPONIN, DEFINED THE 99TH PERCENTILE OF cTnI DISTRIBUTION IN A REFERENCE POPULATION, HAS BEEN CONFIRMED THE DECISION THRESHOLD FOR UT DIAGNOSIS. Performed By: #### B PEDIATRIC CNS, CMADM, BMP #### [facility] [address] [place] [address] [address] Divina Patino CIELO 21 ng/mL Normal 16-96 [facility] Comment on above: Performed By: #### B PEDIATRIC CNS, CMADM, BMP #### [facility] [address] [place] [address] [address] Divina Patino CBC AUTO DIFFon 05-16-2022 BASO # 0.1 103/ul Normal 0.0-0.1 [facility] Comment on above: Performed By: #### C BC #### [facility] [address] [place] [address] Dr. Divina Patino Basophils/100 WBC (Bld) 0.6 % Normal 0.2-2.0 [facility] Comment on above: Performed By: #### C BC #### [facility] [address] [place] [address] Dr. Divina Patino EO # 0.3 103/ul Normal 0.0-0.7 [facility] Comment on above: Performed By: #### C BC #### [facility] [address] [place] [address] Dr. Divina Patino Eosinophils/100 WBC (Bld) 2.3 % Normal 0.9-7.0 [facility] Comment on above: Performed By: #### C BC #### [facility] [address] [place] [address] Dr. Divina Patino Erythrocyte distribution width (RBC) [Ratio] 12.3 % Normal 11.0-15.0 [facility] Comment on above: Performed By: #### C BC #### [facility] [address] [place] [address] Dr. Divina Patino Hematocrit (Bld) [Volume fraction] 41.6 % Critically low 42.0-54.0 [facility] Comment on above: Performed By: #### C BC #### [facility] [address] [place] [address] Dr. Divina Patino Hemoglobin (Bld) [Mass/Vol] 14.6 g/dL Normal 14.0-18.0 [facility] Comment on above: Performed By: #### C BC #### [facility] [address] [place] [address] Dr. Divina Patino IG # 0.12 10e3/ul Critically high 0.00-0.03 [facility] Comment on above: Performed By: #### C BC #### [facility] [address] [place] [address] Dr. Divina Patino IG % 1.0 % Critically high 0.0-0.5 [facility] Comment on above: Performed By: #### C BC #### [facility] [address] [place] [address] Dr. Divina Patino LYMPH # 2.7 103/ul Normal 1.2-3.8 [facility] Comment on above: Performed By: #### C BC #### [facility] [address] [place] [address] Dr. Divina Patino Lymphocytes/100 WBC (Bld) 23.0 % Normal 20.5-60.0 [facility] Comment on above: Performed By: #### C BC #### [facility] [address] [place] [address] Dr. Divina Patino MANUAL DIFF REQ NO Normal [facility] Comment on above: Performed By: #### C BC #### [facility] [address] [place] [address] Dr. Divina Patino MCH (RBC) [Entitic mass] 30.0 pg Normal 25.9-34.0 [facility] Comment on above: Performed By: #### C BC #### [facility] [address] [place] [address] Dr. Divina Patino MCHC (RBC) [Mass/Vol] 35.1 g/dL Normal 29.9-35.2 [facility] Comment on above: Performed By: #### C BC #### [facility] [address] [place] [address] Dr. Divina Patino MCV (RBC) [Entitic vol] 85.6 fL Normal 80.0-94.0 [facility] Comment on above: Performed By: #### C BC #### [facility] [address] [place] [address] [address] Divina Patino MONO # 1.0 103/ul Critically high 0.3-0.8 [facility] Comment on above: Performed By: #### C BC #### [facility] [address] [place] [address] [address] Divina Patino Monocytes/100 WBC (Bld) 8.6 % Normal 1.7-12.0 [facility] Comment on above: Performed By: #### C BC #### [facility] [address] [place] [address] [address] Divina Patino NEUT # 7.4 103/ul Critically high 1.4-6.5 [facility] Comment on above: Performed By: #### C BC #### [facility] [address] [place] [address] [address] Divina Patino Neutrophils/100 WBC (Bld) 64.5 % Normal 43.0-75.0 [facility] Comment on above: Performed By: #### C BC #### [facility] [address] [place] [address] [address] Divina Patino Platelet mean volume (Bld) [Entitic vol] 9.9 fL Normal 9.5-13.5 [facility] Comment on above: Performed By: #### C BC #### [facility] [address] [place] [address] [address] Divina Patino PLT 231 103/ul Normal 150-[address] [facility] Comment on above: Performed By: #### C BC #### [facility] [address] [address] [address] Divina Patino RBC 4.86 106/ul Normal 4.70-6.[address] [facility] Comment on above: Performed By: #### C BC #### [facility] [address] [address] [address] Divina Patino WBC 11.5 103/ul Critically high 4.0-11.0 [facility] Comment on above: Performed By: #### C BC #### [facility] [address] [place] [address] Dr. Divina Patino D-DIMERon 05-16-2022 D-DIMER 0.19 mg/L FEU Normal <=0.59 [facility] Comment on above: Performed By: #### D DIM #### [facility] [address] [place] [address] Dr. Divina Patino D-DIMER COMMENTS SEE BELOW Normal [facility] Comment on above: Result Comment: Incr eases in D-Dimer concentration observed with thromboembolic events can be variable due to localization, size, and age of the thrombus. Therefore, a thromboembolic event cannot be diagnosed with certainty on the basis of the reference range. D-Dimers may also be elevated for a variety of disorders including: advanced age, , coronary disease, cancer, liver disease, infection, inflammation, hematoma, DIC, trauma, post-surgery, diabetes, thrombolytic or anticoagulant therapy, stress, and generalized hospitalization. Performed By: #### D DIM #### [facility] [address] [place] [address] Dr. Divina Patino LACTATE/LACTIC ACIDon 2022 Lactate [Moles/Vol] 1.5 mmol/L Normal 0.4-1.9 [facility] Comment on above: Performed By: #### L ACT #### [facility] [address] [place] [address] Dr. Divina Patino PROF CHEM 8 (BAS METB)on Anion gap [Moles/Vol] 13.7 mmol/L Normal [facility] Comment on above: Performed By: #### B PEDIATRIC CNS, CMADM, BMP #### [facility] [address] [place] [address] Dr. Divina Patino Calcium [Mass/Vol] 8.7 mg/dL Normal 8.5-10.[address] [facility] Comment on above: Performed By: #### B PEDIATRIC CNS, CMADM, BMP #### [facility] [address] [place] [address] Dr. Divina Patino Chloride [Moles/Vol] 102 mmol/L Normal 98-107 [facility] Comment on above: Performed By: #### B PEDIATRIC CNS, CMADM, BMP #### [facility] [address] [address] [address] Divina Patino CO2 [Moles/Vol] 27.1 mmol/L Normal 21.0-32.0 [facility] Comment on above: Performed By: #### B PEDIATRIC CNS, CMADM, BMP #### [facility] [address] [address] [address] Divina Patino Creatinine [Mass/Vol] 0.85 mg/dL Normal 0.70-1.30 [facility] Comment on above: Performed By: #### B PEDIATRIC CNS, CMADM, BMP #### [facility] [address] [address] [address] Divina Patino EGFR-AF PAPUA NEW GUINEAN >60 Normal >=60 [facility] Comment on above: Performed By: #### B PEDIATRIC CNS, CMADM, BMP #### [facility] [address] [address] [address] Divina Patino EGFR-NON AF PAPUA [place]AN >60 Normal >=60 [facility] Comment on above: Performed By: #### B PEDIATRIC CNS, CMADM, BMP #### [facility] [address] [address] [address] Divina Patino Glucose [Mass/Vol] 114 mg/dL Critically high 74-[address] [facility] Comment on above: Performed By: #### B PEDIATRIC CNS, CMADM, BMP #### [facility] [address] [address] [address] Divina Patino Potassium [Moles/Vol] 3.8 mmol/L Normal 3.5-5.1 [facility] Comment on above: Performed By: #### B PEDIATRIC CNS, CMADM, BMP #### [facility] [address] [address] [address] Divina Patino Sodium [Moles/Vol] 139 mmol/L Normal 136-[address] [facility] Comment on above: Performed By: #### B PEDIATRIC CNS, CMADM, BMP #### [facility] [address] [address] [address] Divina Patino Urea nitrogen [Mass/Vol] 15.0 mg/dL Normal 7.0-18.0 [facility] Comment on above: Performed By: #### B PEDIATRIC CNS, ESME, BMP #### [facility] [address] [address] [address] Divina Patino Urea nitrogen/Creatinine [Mass ratio] 17.6 mg/mg Normal [facility] Comment on above: Performed By: #### B PEDIATRIC CNS, ESME, BMP #### [facility] [address] [address] [address] Divina Patino XR CHEST 1 Von 05-16-2022 XR CHEST 1 V EXAM: XR CHEST 1 V HISTORY: SHORTNESS OF BREATH COMPARISON: Chest x-ray, 08/06/2009. TECHNIQUE: AP upright portable chest x-ray. FINDINGS: The heart is top normal in size. The mediastinal contour and pulmonary vascularity appear within normal limits. The lungs and pleural spaces are clear. The bony thorax appears intact. IMPRESSION: Nonacute portable chest x-ray. Electronically authenticated by: AMAN PURCELL Date: 2022-05-15 23:20 Normal [address] [facility] CARDIAC DAT ADMITon 023 CK [Catalytic activity/Vol] 78 U/L Normal 39-308 [facility] Comment on above: Performed By: #### L ACT #### [facility] [address] [place] [address] Dr. Divina Patino CK.MB [Mass/Vol] 1.08 ng/mL Normal <=3.60 [facility] Comment on above: Performed By: #### L ACT #### [facility] [address] [place] [address] Dr. Divina Patino HSTROP 12.2 pg/mL Normal 4.0-76.[address] [facility] Comment on above: Result Comment: CUT- OFF POINTS HAVE BEEN ESTABLISHED BASED ON THE FOURTH UNIVERSAL DEFINITIONS OF MYOCARDIAL INFARCTION. THE UPPER REFERENCE LIMIT (URL) OF TROPONIN, DEFINED THE 99TH PERCENTILE OF cTnI DISTRIBUTION IN A REFERENCE POPULATION, HAS BEEN CONFIRMED THE DECISION THRESHOLD FOR UT DIAGNOSIS. Performed By: #### L ACT #### [facility] [address] [address] [address] Divina Patino CIELO 24 ng/mL Normal 16-[address] [facility] Comment on above: Performed By: #### L ACT #### [facility] [address] [address] [address] Divina Patino CBC AUTO DIFFon 05-11-2022 BASO # 0.1 103/ul Normal 0.0-0.1 [facility] Comment on above: Performed By: #### L ACT #### [facility] [address] [address] [address] Divina Patino Basophils/100 WBC (Bld) 0.6 % Normal 0.2-2.0 [facility] Comment on above: Performed By: #### L ACT #### [facility] [address] [address] [address] Divina Patino EO # 0.2 103/ul Normal 0.0-0.7 [facility] Comment on above: Performed By: #### L ACT #### [facility] [address] [address] [address] Divina Patino Eosinophils/100 WBC (Bld) 2.0 % Normal 0.9-7.0 [facility] Comment on above: Performed By: #### L ACT #### [facility] [address] [address] [address] Divina Patino Erythrocyte distribution width (RBC) [Ratio] 12.4 % Normal 11.0-15.0 [facility] Comment on above: Performed By: #### L ACT #### [facility] [address] [address] [address] Divina Patino Hematocrit (Bld) [Volume fraction] 43.8 % Normal 42.0-54.0 [facility] Comment on above: Performed By: #### L ACT #### [facility] [address] [address] [address] Diivna Patino Hemoglobin (Bld) [Mass/Vol] 15.3 g/dL Normal 14.0-18.0 [facility] Comment on above: Performed By: #### L ACT #### [facility] [address] [address] [address] Divina Patino IG # 0.06 10e3/ul Critically high 0.00-0.03 [facility] Comment on above: Performed By: #### L ACT #### [facility] [address] [address] [address] Divina Patino IG % 0.6 % Critically high 0.0-0.5 [facility] Comment on above: Performed By: #### L ACT #### [facility] [address] [address] [address] Divina Patino LYMPH # 2.0 103/ul Normal 1.2-3.8 [facility] Comment on above: Performed By: #### L ACT #### [facility] [address] [place] [address] Dr. Divina Patino Lymphocytes/100 WBC (Bld) 19.9 % Critically low 20.5-60.0 [facility] Comment on above: Performed By: #### L ACT #### [facility] [address] [place] [address] Dr. Divina Patino MANUAL DIFF REQ NO Normal [facility] Comment on above: Performed By: #### L ACT #### [facility] [address] [place] [address] Dr. Divina Patino MCH (RBC) [Entitic mass] 30.2 pg Normal 25.9-34.0 [facility] Comment on above: Performed By: #### L ACT #### [facility] [address] [place] [address] Dr. Divina Pation MCHC (RBC) [Mass/Vol] 34.9 g/dL Normal 29.9-35.2 [facility] Comment on above: Performed By: #### L ACT #### [facility] [address] [place] [address] Dr. Divina Patino MCV (RBC) [Entitic vol] 86.6 fL Normal 80.0-94.0 [facility] Comment on above: Performed By: #### L ACT #### [facility] [address] [place] [address] Dr. Divina Patino MONO # 0.8 103/ul Normal 0.3-0.8 [facility] Comment on above: Performed By: #### L ACT #### [facility] [address] [address] [address] Divina Patino Monocytes/100 WBC (Bld) 7.7 % Normal 1.7-12.[address] [facility] Comment on above: Performed By: #### L ACT #### [facility] [address] [address] [address] Divina Patino NEUT # 7.1 103/ul Critically high 1.4-6.5 [facility] Comment on above: Performed By: #### L ACT #### [facility] [address] [address] [address] Divina Patino Neutrophils/100 WBC (Bld) 69.2 % Normal 43.0-75.0 [facility] Comment on above: Performed By: #### L ACT #### [facility] [address] [place] [address] Dr. Divina Patino Platelet mean volume (Bld) [Entitic vol] 10.3 fL Normal 9.5-13.[address] [facility] Comment on above: Performed By: #### L ACT #### [facility] [address] [address] [address] Divina Patino PLT 238 103/ul Normal 150-[address] [facility] Comment on above: Performed By: #### L ACT #### [facility] [address] [place] [address] Dr. Divina Patino RBC 5.06 106/ul Normal 4.70-6.[address] [facility] Comment on above: Performed By: #### L ACT #### [facility] [address] [address] [address] Divina Patino WBC 10.3 103/ul Normal 4.0-11.[address] [facility] Comment on above: Performed By: #### L ACT #### [facility] [address] [place] [address] Dr. Divina Patino CRPon 05-11-2022 CRP [Mass/Vol] mg/L Normal <=1.0 [facility] Comment on above: Performed By: #### L ACT #### [facility] [address] [address] [address] HEAD WO CONon 05-11-2022 CT HEAD WO CON EXAMINATION: CT HEAD WO CON, 05/11/2022 6:11 PM EST HISTORY: HEADACHE COMPARISON: None. TECHNIQUE: CT scan of the head was performed without IV contrast. CT dose reduction technique was used, including Automated Exposure Control. FINDINGS: BRAIN PARENCHYMA/CSF SPACES: Ventricles are normal in size for age. There is no hemorrhage, mass effect or midline shift. There are no other significant findings. PARANASAL SINUSES: Minimal left ethmoid sinus mucosal thickening. SKULL BASE AND CALVARIUM: Normal. EXTRACRANIAL SOFT TISSUES: Normal. IMPRESSION: No acute intracranial findings. Electronically authenticated by: JAMES JOHNSTON Date: 2022-05-11 19:47 Normal [address] [facility]on SARS-CoV-2 (COVID-19) RNA JERRICA+probe Ql (Unsp spec) Not detected Normal NOT DETECTED [facility] Comment on above: Result Comment: When diagnostic testing is negative, the possibility of a false negative should be considered in the context of a patient's recent exposures and the presence of clinical signs and symptoms consistent with SARS-CoV-2. This test is not yet approved or cleared by the [place] FDA. When there are no FDA-approved or cleared tests available, and other criteria are met, FDA can make tests available under an emergency access mechanism called an Emergency Use Authorization (EUA). The EUA for this test is supported by the [place] of Health and Human Service's declaration that circumstances exist to justify the emergency use of in vitro diagnostics for the detection and/or diagnosis of the virus that causes COVID-19. This EUA will remain in effect for the duration of the COVID-19 declaration justifying emergency of IVDs, unless it is terminated or revoked by the FDA (after which the test may no longer be used). Performed By: #### C VDTB #### [facility] [address] [address] [address] Divina Patino INFLUENZA A AND B AGon 05-11 INFLUANEGH SEE BELOW Normal [facility] Comment on above: Result Comment: Nega tive for Flu A protein angiten. Infection due to Flu A cannot be ruled out. Flu A angiten in the sample may be below the detection limit of the test. Performed By: #### I NFLUAB #### [facility] [address] [place] [address] Dr. Divina Patino INFLUBNEG SEE BELOW Normal [facility] Comment on above: Result Comment: Nega tive for Flu B protein antigen. Infection due to Flu B cannot be ruled out. Flu B antigen in the sample may be below the detection limit of the test. Performed By: #### I NFLUAB #### [facility] [address] [place] [address] Dr. Divina Patino INFLUENZA A AG Negative Normal NEGATIVE SEE COMMENT [facility] Comment on above: Performed By: #### I NFLUAB #### [facility] [address] [place] [address] Dr. Divina Patino INFLUENZA B AG Negative Normal NEGATIVE SEE COMMENT [facility] Comment on above: Performed By: #### I NFLUAB #### [facility] [address] [place] [address] Dr. Divina Patino LACTATE/LACTIC ACIDon 2022 Lactate [Moles/Vol] 1.8 mmol/L Normal 0.4-1.9 [facility] Comment on above: Performed By: #### L ACT #### [facility] [address] [place] [address] Dr. Divina Patino MONOon 05-11-2022 Monocytes (Bld) [#/Vol] Negative Normal NEGATIVE [facility] Comment on above: Performed By: #### M LEANDRO #### [facility] [address] [place] [address] Dr. Divina Patino PROF CHEM 8 (BAS METB)on Anion gap [Moles/Vol] 12.8 mmol/L Normal [facility] Comment on above: Performed By: #### L ACT #### [facility] [address] [place] [address] Dr. Divina Patino Calcium [Mass/Vol] 9.1 mg/dL Normal 8.5-10.1 [facility] Comment on above: Performed By: #### L ACT #### [facility] [address] [address] [address] Divina Patino Chloride [Moles/Vol] 101 mmol/L Normal 98-107 [facility] Comment on above: Performed By: #### L ACT #### [facility] [address] [address] [address] Divina Patino CO2 [Moles/Vol] 26.9 mmol/L Normal 21.0-32.0 [facility] Comment on above: Performed By: #### L ACT #### [facility] [address] [address] [address] Divina Patino Creatinine [Mass/Vol] 0.90 mg/dL Normal 0.70-1.30 [facility] Comment on above: Performed By: #### L ACT #### [facility] [address] [address] [address] Divina Patino EGFR-AF PAPUA NEW GUINEAN >60 Normal >=60 [facility] Comment on above: Performed By: #### L ACT #### [facility] [address] [address] [address] Divina Patino EGFR-NON AF PAPUA [place] >60 Normal >=60 [facility] Comment on above: Performed By: #### L ACT #### [facility] [address] [address] [address] Divina Patino Glucose [Mass/Vol] 110 mg/dL Critically high 74-[address] [facility] Comment on above: Performed By: #### L ACT #### [facility] [address] [address] [address] Divina Patino Potassium [Moles/Vol] 3.7 mmol/L Normal 3.5-5.[address] [facility] Comment on above: Performed By: #### L ACT #### [facility] [address] [address] [address] Divina Patino Sodium [Moles/Vol] 137 mmol/L Normal 136-145 [facility] Comment on above: Performed By: #### L ACT #### [facility] [address] [address] [address] Divina Patino Urea nitrogen [Mass/Vol] 11.0 mg/dL Normal 7.0-18.0 [facility] Comment on above: Performed By: #### L ACT #### [facility] [address] [address] [address] Divina Patino Urea nitrogen/Creatinine [Mass ratio] 12.2 mg/mg Normal [facility] Comment on above: Performed By: #### L ACT #### [facility] [address] [address] [address] Divina Patino SED RATE MARIANNAERGRENon 2022 SED RATE 16 mm/hr Critically high <=15 [facility] Comment on above: Performed By: #### L ACT #### [facility] [address] [address] [address] Divina Patino TSHon 05-11-2022 TSH 3.949 uIU/mL Critically high 0.358-3.[address] [facility] Comment on above: Performed By: #### L ACT #### [facility] [address] [address] [address] Divina Patino XR wrist RT min 3V*on 2021 XR wrist RT min 3V* [facility] [place] [address] XRay Report Signed Patient: Lawson Cavanaugh MR#: [id number] : 1980 Acct:[id number] Age/Sex: 41 / M ADM Date: 12/17/21 Loc: ER Room: Type: [facility] ER Attending Dr: Copies to: GRISELDA Serrato Ordering Provider: GRISELDA Serrato Date of Service: 12/17/21 XR/XR wrist RT min 3V*: Extremity Injury, Upper RIGHT WRIST - 4 views COMPARISON: None CLINICAL DATA: Prior hyperextended right wrist at work today. Diffuse pain. AP, lateral, oblique and ulnar deviation views were obtained. No acute fracture or dislocation is identified. There is no focal soft tissue abnormality. XR/XR wrist RT min 3V* IMPRESSION: NO ACUTE BONY INJURY. Impression dictated by: Maisha Smalls M.D.12/17/2021 10:14 AM Dictation Location: [place] [address] Transcribed By: [facility] 12/17/21 1014 Dictated By: Maisha Smalls MD 12/17/21 1013 Signed By: 12/17/[address] [facility] COVID-19 Antigenon 2 COVID-19 Antigen Healthcare Worker?: N Reference Range: Negative Negative results, from patients with symptom onset beyond five days, should be treated as presumptive and confirmation with a molecular assay, if necessary, for patient management, may be performed. Negative results do not rule out COVID-19 and should not be used as the sole basis for treatment or patient management decisions, including infection control decisions. Negative results should be considered in the context of a patient's recent exposures, history and the presence of clinical signs and symptoms consistent with COVID-19. The Noy SARS Antigen ANURAG does not differentiate between SARS-CoV and SARS-CoV-2. This test was developed and its performance characteristic determined by [employer] and validated at [facility]. This test has not been FDA cleared or approved. This test has been authorized by FDA under an Emergency Use Authorization (EUA). This test has been validated in accordance with the FDA's Guidance Document (Policy for Diagnostics Testing in Laboratories Certified to Perform High Complexity Testing under CLIA prior to Emergency Use Authorization for Coronavirus Disease-2019 during the Public Health Emergency) issued on June 13, 2019. This test is only authorized for the duration of time the declaration that circumstances exist justifying the authorization of the emergency use of in vitro diagnostic tests for detection of SARS-CoV-2 virus and/or diagnosis of COVID-19 infection under section 564(b)(1) of the Act, 21 U.S.C. 360bbb-3(b)(1), unless the authorization is terminated or revoked sooner. SARS-CoV+SARS-CoV-2 (COVID-19) Ag [Presence] in Respiratory specimen by Rapid immunoassay Negative for SARS Antigen by ANURAG PERFORMED BY: [facility] [address] [place] [address] PATHOLOGIST RESPIRATORY CARE TECHNICIAN BRICE STEPHEN M.D. Normal [facility] Comment on above: Performed By: #### C OVID-19 NOY, SOFIANEG ####[id number] [place] [id number] [facility] COVID-19 SOFIAOrdered By: Andres Elizondo on 12-02-2021 SARS-CoV+SARS-CoV-2 (COVID-19) Ag IA.rapid Ql (Resp) Negative Negative [facility] Comment on above: This is a duplicate Noy SARS Antigen (ANURAG) result to be used for statistical tracking purpose only. No Panel InformationOrdered By: Elian Elizondo on 12-02-2021 SARS Antigen (LFIA) [facility] Noy Ag Negativeon 12-03-19 Noy Ag Negative Negative Normal Negative [facility] Comment on above: Result Comment: This is a duplicate Noy SARS Antigen (ANURAG) result to be used for statistical tracking purpose only. PERFORMED BY: [place] [address] PATHOLOGIST RESPIRATORY CARE TECHNICIAN BRICE STEPHEN M.D. Performed By: #### C OVID-19 NOY, SOFIANEG ####[id number] [place] [id number] [facility] XR chest 1V portableon 12-02 XR chest 1V portable [facility] [address] [place] [address] [place] [address] XRay Report Signed Patient: Lawson Cavanaugh MR#: [id number] : 1980 Acct:[id number] Age/Sex: 41 / M ADM Date: 12/02/21 Loc: ER Room: Type: [facility] ER Attending Dr: Copies to: Elian Elizondo APRN Ordering Provider: Elian Elizondo APRN Date of Service: 12/02/21 XR/XR chest 1V portable: Upper Respiratory Infection SINGLE VIEW CHEST CLINICAL HISTORY: Sinus congestion for 2 weeks with cough and headache. COMPARISON: None FINDINGS: Heart normal in size. Lungs are clear. No free air. XR/XR chest 1V portable IMPRESSION: NO ACUTE FINDINGS Impression dictated by: Wayne Anguiano Jr., D.O.12/02/2021 3:51 PM Dictation Location: [place] [address] Transcribed By: [facility] 12/02/21 155 Dictated By: Wayne Anguiano Jr, DO 12/02/21 1550 Signed By: 12/02/[address] [facility] CBC with Auto Differentialon 06-08-2021 Absolute Eos # 0.11 [facility] Absolute Immature Granulocyte 0.06 [facility] Absolute Lymph # 1.65 [facility] alth Absolute [place] [facility].03 [facility] (Bld) [#/Vol] 0.07 10*3/uL [facility] Basophils/100 WBC (Bld) 1 % 0 - 2 % [employer] Eosinophils/100 WBC (Bld) 1 % 1 - 4 % [facility] Hematocrit (Bld) [Volume fraction] 47.5 % 40.7 - 50.3 % [employer] Hemoglobin.gastroint estinal spec 1 Ql (Stl) 16.3 g/dL 13.0 - 17.0 g/dL [facility] Immature granulocytes/100 WBC (Bld) 1 % High 0 [facility] Interpretation and review of laboratory results Abnormal [employer] Lymphocytes/100 WBC (Bld) 14 % Low 24 - 43 % [facility] MCH (RBC) [Entitic mass] 30.5 pg 25.2 - 33.5 pg [facility] MCHC (RBC) [Mass/Vol] 34.3 g/dL 28.4 - 34.8 g/dL [facility] MCV (RBC) [Entitic vol] 89.0 fL 82.6 - 102.9 fL [facility] Monocytes/100 WBC (Bld) 9 % 3 - 12 % [employer] NRBC Automated 0.0 0.0 per 100 WBC [employer] Platelet distribution width (Bld) [Ratio] 12.5 % 11.8 - 14.4 % [employer] Platelet mean volume (Bld) [Entitic vol] 10.8 fL 8.1 - 13.5 fL [facility] Platelets (Bld) [#/Vol] 231 10*3/uL [facility] RBC (Bld) [#/Vol] 5.34 10*6/uL 4.21 - 5.77 m/uL [facility] Segmented neutrophils/100 WBC (Bld) 74 % High 36 - 65 % [facility] Segs Absolute 9.05 [facility] [#/Vol] 12.0 10*3/uL High [facility] CBC with Diffon 06-08-2021 Abs. Basophil 0.07 k/uL Normal 0.00-0.20 [facility] Comment on above: Performed By: #### C P, LIP, CDP #### [facility] [address] [place] [address] [place] [address] [employer]: Alex Amador MD Abs.Imm.Granulocyte 0.06 k/uL Normal 0.00-0.30 [facility] Comment on above: Performed By: #### C P, LIP, CDP #### [address] [place], [place] [id number] [employer]: Alex Amador MD Abs.Neutrophil (Seg) 9.05 k/uL High 1.50-8.10 [facility] Comment on above: Performed By: #### C P, LIP, CDP #### [address] [place], [place] [id number] [employer]: Alex Amador MD Basophils/100 WBC (Bld) 1 % Normal 0-2 [facility] Comment on above: Performed By: #### C P, LIP, CDP #### [address] [place], [place] [id number] [employer]: Alex Amador MD Eosinophils (Bld) [#/Vol] 0.11 10*3/uL Normal 0.00-0.44 [facility] Comment on above: Performed By: #### C P, LIP, CDP #### [facility] [address] [place] [address] [employer]: Alex Amador MD Eosinophils/100 WBC (Bld) 1 % Normal 1-4 [facility] Comment on above: Performed By: #### C P, LIP, CDP #### [facility] [address] [place] [address] [place] [address] [employer]: Alex Amador MD Erythrocyte distribution width (RBC) [Ratio] 12.5 % Normal 11.8-14.4 [facility] Comment on above: Performed By: #### C P, LIP, CDP #### [address] [place], [facility] [employer]: Alex Amador MD Hematocrit (Bld) [Volume fraction] 47.5 % Normal 40.7-50.3 [facility] Comment on above: Performed By: #### C P, LIP, CDP #### [address] [place] [id number] [employer]: Alex Amador MD Hemoglobin (Bld) [Mass/Vol] 16.3 g/dL Normal 13.0-17.0 [facility] Comment on above: Performed By: #### C P, LIP, CDP #### [address] [place], [place] [id number] [employer]: Alex Amador MD Immature granulocytes/100 WBC (Bld) 1 % High 0 [facility] Comment on above: Performed By: #### C P, LIP, CDP #### [address] [place], [facility] [employer]: Alex Amador MD Lymphocytes (Bld) [#/Vol] 1.65 10*3/uL Normal 1.10-3.70 [facility] Comment on above: Performed By: #### C P, LIP, CDP #### [address] [place] [address] [employer]: Alex Amador MD Lymphocytes/100 WBC (Bld) 14 % Low 24-43 [facility] Comment on above: Performed By: #### C P, LIP, CDP #### [address] [place] [address] [employer]: Alex Amador MD MCH (RBC) [Entitic mass] 30.5 pg Normal 25.2-33.5 [facility] Comment on above: Performed By: #### C P, LIP, CDP #### [address] [place], [facility] [employer]: Alex Amador MD MCHC (RBC) [Mass/Vol] 34.3 g/dL Normal 28.4-34.8 [facility] Comment on above: Performed By: #### C P, LIP, CDP #### [address] [place], [facility] [employer]: Alex Amador MD MCV (RBC) [Entitic vol] 89.0 fL Normal 82.6-102.9 [facility] Comment on above: Performed By: #### C P, LIP, CDP #### [address] [place], [facility] [employer]: Alex Amador MD Monocytes (Bld) [#/Vol] 1.03 10*3/uL Normal 0.10-1.20 [facility] Comment on above: Performed By: #### C P, LIP, CDP #### [address] [place], [facility] [employer]: Alex Amador MD Monocytes/100 WBC (Bld) 9 % Normal 3-12 [facility] Comment on above: Performed By: #### C P, LIP, CDP #### [address] [place], [facility] [employer]: Alex Amador MD Neutrophil (Seg) 74 % High 36-65 [facility] Comment on above: Performed By: #### C P, LIP, CDP #### [address] [place], [facility] [employer]: Alex Amador MD NRBC Automated 0.0 per 100 WBC Normal 0.0 [facility] Comment on above: Performed By: #### C P LIP, CDP #### [address] [place] [address] [employer]: Alex Amador MD Platelet mean volume (Bld) [Entitic vol] 10.8 fL Normal 8.1-13.5 [facility] Comment on above: Performed By: #### C P, LIP, CDP #### [address] [place] [address] [employer]: Alex Amador MD Platelets (Bld) [#/Vol] 231 10*3/uL Normal 138-453 [facility] Comment on above: Performed By: #### C P LIP, CDP #### [address] [place] [address] [employer]: Alex Amador MD RBC (Bld) [#/Vol] 5.34 10*6/uL Normal 4.21-5.77 [facility] Comment on above: Performed By: #### C P, LIP, CDP #### [address] [place] [address] [employer]: Alex Amador MD WBC (Bld) [#/Vol] 12.0 10*3/uL High 3.5-11.3 [facility] Comment on above: Performed By: #### C P, LIP, CDP #### [address] [place] [address] [employer]: Alex Amador MD CT ABDOMEN PELVIS W IV CONTR Kamlesh 06-08-2021 CT ABDOMEN PELVIS W IV CONTRAST EXAMINATION: CT OF THE ABDOMEN AND PELVIS WITH CONTRAST 06/08/2021 3:26 pm TECHNIQUE: CT of the abdomen and pelvis was performed with the administration of intravenous contrast. Multiplanar reformatted images are provided for review. Dose modulation, iterative reconstruction, and/or weight based adjustment of the mA/kV was utilized to reduce the radiation dose to as low as reasonably achievable. COMPARISON: 02/05/2019 HISTORY: ORDERING SYSTEM PROVIDED HISTORY: [facility] pain TECHNOLOGIST PROVIDED HISTORY: [facility] pain Decision Support Exception - unselect if not a suspected or confirmed emergency medical condition->Emergency Medical Condition (MA) FINDINGS: Lower Chest: Benign stable tiny pleural based nodular densities in the left lower lobe. No follow-up imaging is required. Organs: Diffuse hepatic steatosis. Unremarkable spleen, pancreas, adrenals, and right kidney. Nonobstructing stones in the left kidney measuring up to 0.5 cm. No radiopaque stone in the ureters. No hydroureteronephrosi s on either side. GI/Bowel: Normal appendix. Multiple fluid-filled small bowel loops which are somewhat dilated. Findings are suspicious for acute enteritis. No evidence of bowel obstruction. Fat infiltration throughout the colonic hester, suggestive of prior episodes of colitis. Pelvis: Prostate normal in size. Urinary bladder grossly unremarkable. Fat containing inguinal hernias, larger on the left. Peritoneum/Retroperi toneum: No free air or free fluid. No adenopathy. Mild vascular calcification. No abdominal aortic aneurysm. Bones/Soft Tissues: Mild multilevel thoracolumbar spondylosis. IMPRESSION: Findings suspicious for acute enteritis. Diffuse hepatic steatosis. Nonobstructing stones in the left kidney. Normal appendix. Interpreted by: Ok Rodgers MD Signed by: Ok Rodgers MD 06/08/21 Final result Normal [facility] CT ABDOMEN PELVIS W IV CONTR AST Additional Contrast? Noneon 06-08-2021 Findings suspicious for acute enteritis. Diffuse hepatic steatosis. Nonobstructing stones in the left kidney. Normal appendix. PN RIS CONSOLIDATED EXAMINATION: CT OF THE ABDOMEN AND PELVIS WITH CONTRAST 06/08/2021 3:26 pm TECHNIQUE: CT of the abdomen and pelvis was performed with the administration of intravenous contrast. Multiplanar reformatted images are provided for review. Dose modulation, iterative reconstruction, and/or weight based adjustment of the mA/kV was utilized to reduce the radiation dose to as low as reasonably achievable. COMPARISON: 02/05/2019 HISTORY: ORDERING SYSTEM PROVIDED HISTORY: [facility] pain TECHNOLOGIST PROVIDED HISTORY: [facility] pain Decision Support Exception - unselect if not a suspected or confirmed emergency medical condition->Emergency Medical Condition (MA) FINDINGS: Lower Chest: Benign stable tiny pleural based nodular densities in the left lower lobe. No follow-up imaging is required. Organs: Diffuse hepatic steatosis. Unremarkable spleen, pancreas, adrenals, and right kidney. Nonobstructing stones in the left kidney measuring up to 0.5 cm. No radiopaque stone in the ureters. No hydroureteronephrosi s on either side. GI/Bowel: Normal appendix. Multiple fluid-filled small bowel loops which are somewhat dilated. Findings are suspicious for acute enteritis. No evidence of bowel obstruction. Fat infiltration throughout the colonic hester, suggestive of prior episodes of colitis. Pelvis: Prostate normal in size. Urinary bladder grossly unremarkable. Fat containing inguinal hernias, larger on the left. Peritoneum/Retroperi toneum: No free air or free fluid. No adenopathy. Mild vascular calcification. No abdominal aortic aneurysm. Bones/Soft Tissues: Mild multilevel thoracolumbar spondylosis. [facility] RIS Ok River MD - 06/08/2021 EXAMINATION: CT OF THE ABDOMEN AND PELVIS WITH CONTRAST 06/08/2021 3:26 pm TECHNIQUE: CT of the abdomen and pelvis was performed with the administration of intravenous contrast. Multiplanar reformatted images are provided for review. Dose modulation, iterative reconstruction, and/or weight based adjustment of the mA/kV was utilized to reduce the radiation dose to as low as reasonably achievable. COMPARISON: 02/05/2019 HISTORY: ORDERING SYSTEM PROVIDED HISTORY: [facility] pain TECHNOLOGIST PROVIDED HISTORY: [facility] pain Decision Support Exception - unselect if not a suspected or confirmed emergency medical condition->Emergency Medical Condition (MA) FINDINGS: Lower Chest: Benign stable tiny pleural based nodular densities in the left lower lobe. No follow-up imaging is required. Organs: Diffuse hepatic steatosis. Unremarkable spleen, pancreas, adrenals, and right kidney. Nonobstructing stones in the left kidney measuring up to 0.5 cm. No radiopaque stone in the ureters. No hydroureteronephrosi s on either side. GI/Bowel: Normal appendix. Multiple fluid-filled small bowel loops which are somewhat dilated. Findings are suspicious for acute enteritis. No evidence of bowel obstruction. Fat infiltration throughout the colonic hester, suggestive of prior episodes of colitis. Pelvis: Prostate normal in size. Urinary bladder grossly unremarkable. Fat containing inguinal hernias, larger on the left. Peritoneum/Retroperi toneum: No free air or free fluid. No adenopathy. Mild vascular calcification. No abdominal aortic aneurysm. Bones/Soft Tissues: Mild multilevel thoracolumbar spondylosis. IMPRESSION: Findings suspicious for acute enteritis. Diffuse hepatic steatosis. Nonobstructing stones in the left kidney. Normal appendix. [facility] [employer] Phone: Radiology Study observation (narrative) [facility] [employer] Phone: CT ABDOMEN PELVIS W IV CONTR AST Additional Contrast? NoneOrdered By: Ok Rodgers on 06-08-2021 [facility] [employer] Phone: Comp Metabolic Profon 2021 (cont.) Normal [facility] Comment on above: Result Comment: Aver age GFR for 40-49 years old: 99 mL/min/1.73sq m Chronic Kidney Disease: <60 mL/min/1.73sq m Kidney failure: <15 mL/min/1.73sq m eGFR calculated using average adult body mass. Additional eGFR calculator available at: http://www.[employer]/multiple_crcl_2012.htm Performed By: #### C PRAMÓN, CDP #### [facility] [address] [place] [address] [place] [address] [employer]: Alex Amador MD Albumin [Mass/Vol] 4.6 g/dL Normal 3.5-5.2 [facility] Comment on above: Performed By: #### C P LIP, CDP #### [facility] [address] [place] [address] [place] [address] [employer]: Alex Amador MD Albumin/Glob Ratio 1.5 Normal 1.0-2.5 [facility] Comment on above: Performed By: #### C P LIP, CDP #### [address] [place] [address] [employer]: Alex Amador MD Alkaline Phos 90 U/L Normal 40-129 [facility] Comment on above: Performed By: #### C P LIP, CDP #### [facility] [address] [place], [place] [id number] [employer]: Alex Amador MD ALT [Catalytic activity/Vol] 37 U/L Normal 5-41 [facility] Comment on above: Performed By: #### C P, LIP, CDP #### [facility] [address] [place], [place] [id number] [employer]: Alex Amador MD Anion gap [Moles/Vol] 10 mmol/L Normal 9-17 [facility] Comment on above: Performed By: #### C P, LIP, CDP #### [facility] [address] [place], [place] [id number] [employer]: Alex Amador MD AST [Catalytic activity/Vol] 18 U/L Normal <40 [facility] Comment on above: Performed By: #### C P, LIP, CDP #### [facility] [address] [place], [place] [phone] [employer]: Alex Amador MD Bilirubin [Mass/Vol] 0.83 mg/dL Normal 0.3-1.2 [facility] Comment on above: Performed By: #### C P, LIP, CDP #### [address] [place], [place] [address]83 [employer]: Alex Amador MD BUN/CRE Ratio 12 Normal 9-20 [facility] Comment on above: Performed By: #### C P, LIP, CDP #### [facility] [address] [place], [place] [address]83 [employer]: Alex Amador MD Calcium [Mass/Vol] 9.7 mg/dL Normal 8.6-10.4 [facility] Comment on above: Performed By: #### C P, LIP, CDP #### [facility] [address] [place], [place] [phone] [employer]: Alex Amador MD Chloride [Moles/Vol] 101 mmol/L Normal 98-107 [facility] Comment on above: Performed By: #### C P, LIP, CDP #### [facility] [address] [place], [place] [phone] [employer]: Alex Amador MD CO2 [Moles/Vol] 29 mmol/L Normal 20-31 [facility] Comment on above: Performed By: #### C P, LIP, CDP #### [facility] [address] [place], [place] [phone] [employer]: Alex Amador MD Creatinine [Mass/Vol] 0.83 mg/dL Normal 0.70-1.20 [facility] Comment on above: Performed By: #### C P, LIP, CDP #### [facility] [address] [place], [place] [phone] [employer]: Alex Amador MD GFR, Amer >60 Normal >60 [facility] Comment on above: Performed By: #### C P, LIP, CDP #### [facility] [address] [place], [place] [address]783 [employer]: Alex Amador MD GFR,non Amer >60 Normal >60 [facility] Comment on above: Performed By: #### C P, LIP, CDP #### [facility] [address] [place], [place] [address]83 [employer]: Alex Amador MD Glucose [Mass/Vol] 110 mg/dL High 70-99 [facility] Comment on above: Performed By: #### C P, LIP, CDP #### [facility] [address] [place] [address] [employer]: Alex Amador MD Potassium [Moles/Vol] 4.2 mmol/L Normal 3.7-5.3 [facility] Comment on above: Performed By: #### C P, LIP, CDP #### [facility] [address] [place] [address] [employer]: Alex Amador MD Protein [Mass/Vol] 7.6 g/dL Normal 6.4-8.3 [facility] Comment on above: Performed By: #### C P, LIP, CDP #### [facility] [address] [place] [address] [employer]: Alex Amador MD Sodium [Moles/Vol] 140 mmol/L Normal 135-144 [facility] Comment on above: Performed By: #### C P, LIP, CDP #### [address] [place] [address] [employer]: Alex Amador MD Staging: Normal [facility] Comment on above: Result Comment: Stag e 1: Some kidney damage normal GFR Stage 2: Mild kidney damage GFR 60-89 Stage 3: Moderate kidney damage GFR 30-59 Stage 4: Severe kidney damage GFR 15-29 Stage 5: Severe kidney damage GFR <15 ESRD - chronic treatment by dialysis or transplant Performed By: #### C P, LIP, CDP #### [address] [place] [address] [employer]: Alex Amador MD Urea nitrogen [Mass/Vol] 10 mg/dL Normal 6-20 [facility] Comment on above: Performed By: #### C P, LIP, CDP #### [address] [place] [address] [employer]: Alex Amador MD Comprehensive Metabolic Pane karan 06-08-2021 Albumin [Mass/Vol] 4.6 g/dL 3.5 - 5.2 g/dL [facility] Albumin/Globulin [Mass ratio] 1.5 {ratio} [facility] ALP (Bld) [Catalytic activity/Vol] 90 U/L 40 - 129 U/L [facility] ALT [Catalytic activity/Vol] 37 U/L 5 - 41 U/L [facility] Anion gap [Moles/Vol] 10 mmol/L 9 - 17 mmol/L [facility] AST [Catalytic activity/Vol] 18 U/L <40 [facility] Bilirubin [Mass/Vol] 0.83 mg/dL 0.3 - 1.2 mg/dL [facility] Calcium [Mass/Vol] 9.7 mg/dL 8.6 - 10.4 mg/dL [facility] Chloride [Moles/Vol] 101 mmol/L 98 - 107 mmol/L [facility] CO2 [Moles/Vol] 29 mmol/L 20 - 31 mmol/L [facility] Creatinine [Mass/Vol] 0.83 mg/dL 0.70 - 1.20 mg/dL [facility] Free PSA/Total PSA [Mass fraction] 7.6 g/dL 6.4 - 8.3 g/dL [facility] GFR >60 >60 mL/min [facility] GFR Non- >60 >60 mL/min [facility] Glucose [Mass/Vol] 110 mg/dL High 70 - 99 mg/dL [facility] Interpretation and review of laboratory results Abnormal [facility] Potassium [Moles/Vol] 4.2 mmol/L 3.7 - 5.3 mmol/L [facility] Sodium [Moles/Vol] 140 mmol/L 135 - 144 mmol/L [facility] Urea nitrogen (BldV) [Mass/Vol] 10 mg/dL 6 - 20 mg/dL [facility] Urea nitrogen/Creatinine (Bld) [Mass ratio] 12 [facility] Laboratory - Chemistry and C hemistry - challengeon 06-08-2021 GFR/1.73 sq M.predicted MDRD (S/P/Bld) [Vol rate/Area] [facility] Comment on above: Average GFR for 40-4 9 years old: 99 mL/min/1.73sq m Chronic Kidney Disease: <60 mL/min/1.73sq m Kidney failure: <15 mL/min/1.73sq m eGFR calculated using average adult body mass. Additional eGFR calculator available at: http://www.[employer]/multiple_crcl_2012.htm Stage 1: Some kidney damage normal GFR Stage 2: Mild kidney damage GFR 60-89 Stage 3: Moderate kidney damage GFR 30-59 Stage 4: Severe kidney damage GFR 15-29 Stage 5: Severe kidney damage GFR <15 ESRD - chronic treatment by dialysis or transplant Lactic Acidon 06-08-2021 Lactate [Moles/Vol] 2.1 mmol/L Normal 0.5-2.2 [facility] Comment on above: Performed By: #### L ACTIC #### [facility] [address] [place] [address] [employer]: Alex Amador MD Lactate [Moles/Vol] 2.1 mmol/L 0.5 - 2.2 mmol/L [facility] Lipaseon 06-08-2021 Lipase [Catalytic activity/Vol] 30 U/L Normal 13-60 [facility] Comment on above: Performed By: #### C P, LIP, CDP #### [facility] [address] [place] [address] [employer]: Alex Amador MD Lipase [Catalytic activity/Vol] 30 U/L 13 - 60 U/L [facility] No Panel Informationon 06-08 [facility] Basic Metabolic Panelon Anion gap [Moles/Vol] 9 mmol/L 9 - 17 mmol/L [place] Bun/Cre Ratio 12 [place] Calcium [Mass/Vol] 8.8 mg/dL 8.6 - 10.4 mg/dL [place] Chloride [Moles/Vol] 98 mmol/L 98 - 107 mmol/L [place] CO2 [Moles/Vol] 26 mmol/L 20 - 31 mmol/L [place] Creatinine [Mass/Vol] 1.04 mg/dL 0.7 - 1.2 mg/dL [place] GFR >60 >60 mL/min [place] GFR Non- >60 >60 mL/min [place] Glucose [Mass/Vol] 111 mg/dL High 70 - 99 mg/dL [place] Interpretation and review of laboratory results Abnormal [place] Potassium [Moles/Vol] 3.9 mmol/L 3.7 - 5.3 mmol/L [place] Sodium [Moles/Vol] 133 mmol/L Low 135 - 144 mmol/L [place] Urea nitrogen [Mass/Vol] 12 mg/dL 6 - 20 mg/dL [place] Brain Natriuretic Peptideon 03-19-2020 Natriuretic peptide B (Bld) [Mass/Vol] Pro-BNP Reference Range: [place], [place] Comment on above: Rule Out: <300 Reis Zone: Age <50 300-450 Age 50-75 300-900 Age >75 300-1800 Usually represents mild to moderate HF but other cardiopulmonary causes cannot be ruled out. Rule In: Age <50 >450 Age 50-75 >900 Age >75 >1800 Natriuretic peptide B (Bld) [Mass/Vol] 60 pg/mL <300 [place] Comment on above: Pro-BNP results radha ot be compared to BNP results. CBC Auto Differentialon Basophils (Bld) [#/Vol] 0.04 10*3/uL [place] Basophils/100 WBC (Bld) 1 % 0 - 2 % [place] Differential Type NOT REPORTED [place] Eosinophils (Bld) [#/Vol] 0.04 10*3/uL [place] Eosinophils/100 WBC (Bld) 1 % 1 - 4 % [place] Erythrocyte distribution width (RBC) [Ratio] 12.5 % 11.8 - 14.4 % [place] Hematocrit (Bld) [Volume fraction] 48.2 % 40.7 - 50.3 % [place] Hemoglobin (Bld) [Mass/Vol] 16.3 g/dL 13 - 17 g/dL [place] Immature granulocytes (Bld) [#/Vol] 1 % High 0 [place] Immature granulocytes (Bld) [#/Vol] 0.07 10*3/uL [place] Interpretation and review of laboratory results Abnormal [place] Lymphocytes (Bld) [#/Vol] 1.10 10*3/uL [place] Lymphocytes/100 WBC (Bld) 13 % Low 24 - 43 % [place] MCH (RBC) [Entitic mass] 29.4 pg 25.2 - 33.5 pg [place] MCHC (RBC) [Mass/Vol] 33.8 g/dL 28.4 - 34.8 g/dL [place] MCV (RBC) [Entitic vol] 87.0 fL 82.6 - 102.9 fL [place] Monocytes (Bld) [#/Vol] 0.96 10*3/uL [place] Monocytes/100 WBC (Bld) 11 % 3 - 12 % [place] Platelet mean volume (Bld) [Entitic vol] 11.2 fL 8.1 - 13.5 fL [place] Platelets (Bld) [#/Vol] 175 10*3/uL [place] Platelets (Bld) [#/Vol] NOT REPORTED [place] RBC (Bld) [#/Vol] 5.54 10*6/uL 4.21 - 5.77 m/uL [place] RBC morphology finding Nom (Bld) NOT REPORTED [place] Segmented neutrophils/100 WBC (Bld) 73 % High 36 - 65 % [place] Segs Absolute 6.21 [place] WBC (Bld) [#/Vol] 8.4 10*3/uL [place] WBC (Bld) [#/Vol] 0.0 10*3/uL 0.0 per 100 WBC M [place] WBC Morphology NOT REPORTED [place] COVID-19, PCRon 03-19-2020 Interpretation and review of laboratory results Abnormal [place] SARS-CoV-2, Rapid DETECTED Abnormal Not Detected [place] Comment on above: Rapid NAAT: The specimen is POSITIVE for SARS-Cov-2, the novel coronavirus associated with COVID-19. This test has been authorized by the FDA under an Emergency Use Authorization (EUA) for use by authorized laboratories. The ID NOW COVID-19 assay is designed to detect the virus that causes COVID-19 in patients with signs and symptoms of infection who are suspected of COVID-19. An individual without symptoms of COVID-19 and who is not shedding SARS-CoV-2 virus would expect to have a negative (not detected) result in this assay. Fact sheet for Healthcare Providers: https://www.fda.gov/media/689552/download Fact sheet for Patients: https://www.fda.gov/media/580589/download Methodology: Isothermal Nucleic Acid Amplification Results reported to the appropriate Health Department Source .NASOPHARYNGEAL SWAB [place] CHEST PULMONARY EMBOLISM W CONTRASTon 03-19-2020 1. No pulmonary embolism. 2. Multifocal ground-glass opacities in the bilateral lungs with overall pattern of concern for underlying viral pneumonitis. 3. Hepatomegaly and diffuse steatosis in the abdomen, stable from remote imaging. [place], [place] Incoming Radiant Results From [employer] - 03/19/2020 8:26 PM EST EXAMINATION: CTA OF THE CHEST 03/19/2020 7:59 pm TECHNIQUE: CTA of the chest was performed after the administration of intravenous contrast. Multiplanar reformatted images are provided for review. MIP images are provided for review. Dose modulation, iterative reconstruction, and/or weight based adjustment of the mA/kV was utilized to reduce the radiation dose to as low as reasonably achievable. COMPARISON: 06/21/2016 CT HISTORY: ORDERING SYSTEM PROVIDED HISTORY: tachycardia TECHNOLOGIST PROVIDED HISTORY: tachycardia FINDINGS: Pulmonary Arteries: Study is of good technical quality for evaluation of pulmonary embolism. There are no filling defects to suggest pulmonary embolism. Main pulmonary artery is normal in caliber. No evidence of right ventricular strain. Mediastinum: Heart is normal. The aorta is normal. No lymphadenopathy. Incidental left thyroid nodule measuring 1.4 cm. This is stable from prior imaging. No follow-up imaging is recommended. Lungs/pleura: The airways are patent. No pleural fluid. Multifocal ground-glass opacities are scattered diffusely in the lungs with a lower zone predominance. No focal consolidation. No solid pulmonary nodule. Upper Abdomen: The adrenal glands are normal. Hepatomegaly with diffuse steatosis. Soft Tissues/Bones: No skeletal abnormalities throughout the chest. IMPRESSION: 1. No pulmonary embolism. 2. Multifocal ground-glass opacities in the bilateral lungs with overall pattern of concern for underlying viral pneumonitis. 3. Hepatomegaly and diffuse steatosis in the abdomen, stable from remote imaging. [place] EXAMINATION: CTA OF THE CHEST 03/19/2020 7:59 pm TECHNIQUE: CTA of the chest was performed after the administration of intravenous contrast. Multiplanar reformatted images are provided for review. MIP images are provided for review. Dose modulation, iterative reconstruction, and/or weight based adjustment of the mA/kV was utilized to reduce the radiation dose to as low as reasonably achievable. COMPARISON: 06/21/2016 CT HISTORY: ORDERING SYSTEM PROVIDED HISTORY: tachycardia TECHNOLOGIST PROVIDED HISTORY: tachycardia FINDINGS: Pulmonary Arteries: Study is of good technical quality for evaluation of pulmonary embolism. There are no filling defects to suggest pulmonary embolism. Main pulmonary artery is normal in caliber. No evidence of right ventricular strain. Mediastinum: Heart is normal. The aorta is normal. No lymphadenopathy. Incidental left thyroid nodule measuring 1.4 cm. This is stable from prior imaging. No follow-up imaging is recommended. Lungs/pleura: The airways are patent. No pleural fluid. Multifocal ground-glass opacities are scattered diffusely in the lungs with a lower zone predominance. No focal consolidation. No solid pulmonary nodule. Upper Abdomen: The adrenal glands are normal. Hepatomegaly with diffuse steatosis. Soft Tissues/Bones: No skeletal abnormalities throughout the chest. [place] Lactic Acid, Plasmaon 2020 Lactate [Moles/Vol] 1.2 mmol/L 0.5 - 2.2 mmol/L [place] Lactic Acid, Whole Blood NOT REPORTED 0.7 - 2.1 mmol/L [place] Metabolic Panelon 03-19-2020 GFR/1.73 sq M predicted among non-blacks MDRD (S/P/Bld) [Vol rate/Area] [place] Comment on above: Average GFR for 40-4 9 years old: 99 mL/min/1.73sq m Chronic Kidney Disease: <60 mL/min/1.73sq m Kidney failure: <15 mL/min/1.73sq m eGFR calculated using average adult body mass. Additional eGFR calculator available at: http://www.[employer]/multiple_crcl_2012.htm Stage 1: Some kidney damage normal GFR Stage 2: Mild kidney damage GFR 60-89 Stage 3: Moderate kidney damage GFR 30-59 Stage 4: Severe kidney damage GFR 15-29 Stage 5: Severe kidney damage GFR <15 ESRD - chronic treatment by dialysis or transplant Otheron 03-19-2020 SARS-CoV-2 [place] Rapid influenza A/B antigens on 03-19-2020 Direct Exam NEGATIVE for Influenza A + B antigens. PCR testing to confirm this result is available upon request. Specimen will be saved in the laboratory for 7 days. Please call [phone] if PCR testing is indicated. [place] Special Requests NOT REPORTED [place] Specimen Description .NASOPHARYNGEAL SWAB [place] Troponinon 03-19-2020 Troponin I.cardiac [Mass/Vol] NOT REPORTED [place] Troponin T.cardiac [Mass/Vol] NOT REPORTED <0.03 ng/mL [place] Troponin, High Sensitivity 15 ng/L 0 - 22 ng/L [place] Comment on above: High Sensitivity Troponin values cannot be compared with other Troponin methodologies. Patients with high levels of Biotin oral intake (i.e >5mg/day) may have falsely decreased Troponin levels. Samples collected within 8 hours of biotin intake may require additional information for diagnosis. XR CHEST PORTABLEon 03-19-19 21 Tito, pn Incoming Radiant Results From [employer] - 03/19/2020 6:06 PM EST EXAMINATION: ONE XRAY VIEW OF THE CHEST 03/19/2020 5:58 pm COMPARISON: June 27, 2018 HISTORY: ORDERING SYSTEM PROVIDED HISTORY: dyspnea TECHNOLOGIST PROVIDED HISTORY: dyspnea FINDINGS: Mild edema. Heart and mediastinum normal. Bony thorax intact. IMPRESSION: Mild edema or pneumonitis [place] EXAMINATION: ONE XRAY VIEW OF THE CHEST 03/19/2020 5:58 pm COMPARISON: June 27, 2018 HISTORY: ORDERING SYSTEM PROVIDED HISTORY: dyspnea TECHNOLOGIST PROVIDED HISTORY: dyspnea FINDINGS: Mild edema. Heart and mediastinum normal. Bony thorax intact. [place] Mild edema or pneumonitis [place] Otheron 10-21-2019 No acute abnormalities seen in the left foot or left ankle [place] EXAMINATION: THREE XRAY VIEWS OF THE LEFT FOOT; THREE XRAY VIEWS OF THE LEFT ANKLE 10/21/2019 4:08 pm COMPARISON: None. HISTORY: ORDERING SYSTEM PROVIDED HISTORY: pain TECHNOLOGIST PROVIDED HISTORY: pain FINDINGS: Left foot: Anatomic alignment. The joint spaces appear normal. No fractures. No destructive bony abnormality. Left ankle: Anatomic alignment. No fracture. Well corticated calcification adjacent to the medial malleolus most likely from old trauma. [place], [place] Incoming Radiant Results From [employer] - 10/21/2019 4:26 PM EDT EXAMINATION: THREE XRAY VIEWS OF THE LEFT FOOT; THREE XRAY VIEWS OF THE LEFT ANKLE 10/21/2019 4:08 pm COMPARISON: None. HISTORY: ORDERING SYSTEM PROVIDED HISTORY: pain TECHNOLOGIST PROVIDED HISTORY: pain FINDINGS: Left foot: Anatomic alignment. The joint spaces appear normal. No fractures. No destructive bony abnormality. Left ankle: Anatomic alignment. No fracture. Well corticated calcification adjacent to the medial malleolus most likely from old trauma. IMPRESSION: No acute abnormalities seen in the left foot or left ankle [place] Basic Metabolic Panel w/ Ref katrin to MGon 02-06-2019 Anion gap [Moles/Vol] 13 mmol/L 9 - 17 mmol/L [place] Bun/Cre Ratio 16 [place] Calcium [Mass/Vol] 8.4 mg/dL Low 8.6 - 10.4 mg/dL [place] Chloride [Moles/Vol] 99 mmol/L 98 - 107 mmol/L [place] CO2 [Moles/Vol] 23 mmol/L 20 - 31 mmol/L [place] Creatinine [Mass/Vol] 0.94 mg/dL 0.7 - 1.2 mg/dL [place] GFR >60 >60 mL/min [place] GFR Non- >60 >60 mL/min [place] Glucose [Mass/Vol] 130 mg/dL High 70 - 99 mg/dL [place] Interpretation and review of laboratory results Abnormal [place] Potassium [Moles/Vol] 3.7 mmol/L 3.7 - 5.3 mmol/L [place] Sodium [Moles/Vol] 135 mmol/L 135 - 144 mmol/L [place] Urea nitrogen [Mass/Vol] 15 mg/dL 6 - 20 mg/dL [place] CBCon 02-06-2019 Erythrocyte distribution width (RBC) [Ratio] 12.5 % 11.8 - 14.4 % [place] Hematocrit (Bld) [Volume fraction] 45.4 % 40.7 - 50.3 % [place] Hemoglobin (Bld) [Mass/Vol] 15.1 g/dL 13 - 17 g/dL [place] MCH (RBC) [Entitic mass] 29.8 pg 25.2 - 33.5 pg [place] MCHC (RBC) [Mass/Vol] 33.3 g/dL 28.4 - 34.8 g/dL [place] MCV (RBC) [Entitic vol] 89.5 fL 82.6 - 102.9 fL [place] Platelet mean volume (Bld) [Entitic vol] 10.4 fL 8.1 - 13.5 fL [place] Platelets (Bld) [#/Vol] 198 10*3/uL [place] RBC (Bld) [#/Vol] 5.07 10*6/uL 4.21 - 5.77 m/uL [place] WBC (Bld) [#/Vol] 0.0 10*3/uL 0.0 per 100 WBC M [place] WBC (Bld) [#/Vol] 10.7 10*3/uL [place] Culture Stoolon 02-06-2019 Campylobacter PCR NEGATIVE: No Campylobacter spp. (jejuni or coli) DNA Detected NEGATIVE: No Campylobacter spp. (jejuni or coli) DNA Detecte [place] E Coli Enterotoxigenic PCR NEGATIVE: No Enterotoxigenic E. coli (ETEC) Heat-labile and heat-stable (LT/ST) DNA Detected NEGATIVE: No Enterotoxigenic E. coli (ETEC) Heat-labile and [place] Plesiomonas Shigelloides PCR Negative NEGATIVE: No Plesionomas shigelloides DNA Detected [place] Salmonella PCR Negative NEGATIVE: No Salmonella spp. DNA Detected [place] Shigatoxin Gene PCR Negative NEGATIVE : No Shiga toxin-producing gene(s) Detected [place] Shigella Sp PCR Negative NEGATIVE: No Shigella spp. / EIEC DNA Detected [place] Specimen Description .FECES [place] Vibrio PCR NEGATIVE: No Vibrio (V. vulnificus, V, parahaemolyticus and V. cholerae) DNA Detected NEGATIVE: No Vibrio (V. vulnificus, V, parahaemolyticus and [place] Yersinia Enterocolitica PCR Negative NEGATIVE: No Yersinia enterocolitica DNA Detected [place] Metabolic Panelon 02-06-2019 GFR/1.73 sq M predicted among non-blacks MDRD (S/P/Bld) [Vol rate/Area] [place] Comment on above: Stage 1: Some kidney damage normal GFR Stage 2: Mild kidney damage GFR 60-89 Stage 3: Moderate kidney damage GFR 30-59 Stage 4: Severe kidney damage GFR 15-29 Stage 5: Severe kidney damage GFR <15 ESRD - chronic treatment by dialysis or transplant Average GFR for 40-4 9 years old: 99 mL/min/1.73sq m Chronic Kidney Disease: <60 mL/min/1.73sq m Kidney failure: <15 mL/min/1.73sq m eGFR calculated using average adult body mass. Additional eGFR calculator available at: http://www.[employer]/multiple_crcl_2012.htm Microscopic Urinalysison Amorphous, UA NOT REPORTED None [place] Bacteria, UA TRACE Abnormal None [place] Casts UA NOT REPORTED /LPF [place] Crystals UA NOT REPORTED None /HPF [place] Epithelial Cells UA 0 TO 2 [place] Interpretation and review of laboratory results Abnormal [place] Mucus, UA TRACE Abnormal None [place] Other Observations UA NOT REPORTED NOT REQ. [place] RBC (U) [#/Vol] 0 TO 2 [place] Renal Epithelial, Urine NOT REPORTED 0 /HPF [place] Trichomonas, UA NOT REPORTED None [place] WBC, UA None [place] Yeast, UA NOT REPORTED None [place] - [place] Urinalysis Reflex to Culture on 02-06-2019 Bilirubin U[facility] Negative [facility] [place] Color, UA YELLOW YELLOW [place] Glucose, Ur Negative NEGATIVE [place] Interpretation and review of laboratory results Abnormal [place] Ketones Ql (U) TRACE Abnormal NEGATIVE [place] Leukocyte esterase Test strip Ql (U) Negative NEGATIVE [place] Nitrite, Urine Negative NEGATIVE [place] pH, UA 5.5 [place] Protein (U) [Mass/Vol] TRACE Abnormal NEGATIVE [place] Specific [place], UA >1.030 High [place] Turbidity UA CLEAR CLEAR [place] Urinalysis Comments NOT REPORTED [place] Urine Hgb 1+ Abnormal NEGATIVE [place] Urobilinogen, Urine Normal Normal [place] C DIFF TOXIN/ANTIGENon 02-05 C DIFF AG + TOXIN Negative NEGATIVE [place] Comment on above: No C. difficile anti gen and Toxin Detected. Specimen Description .FECES [place] CBCon 02-05-2019 Erythrocyte distribution width (RBC) [Ratio] 12.0 % 11.8 - 14.4 % [place] Hematocrit (Bld) [Volume fraction] 49.7 % 40.7 - 50.3 % [place] Hemoglobin (Bld) [Mass/Vol] 17.2 g/dL High 13 - 17 g/dL [place] Interpretation and review of laboratory results Abnormal [place] MCH (RBC) [Entitic mass] 30.4 pg 25.2 - 33.5 pg [place] MCHC (RBC) [Mass/Vol] 34.6 g/dL 28.4 - 34.8 g/dL [place] MCV (RBC) [Entitic vol] 87.8 fL 82.6 - 102.9 fL [place] Platelet mean volume (Bld) [Entitic vol] 10.8 fL 8.1 - 13.5 fL [place] Platelets (Bld) [#/Vol] 233 10*3/uL [place] RBC (Bld) [#/Vol] 5.66 10*6/uL 4.21 - 5.77 m/uL [place] WBC (Bld) [#/Vol] 15.0 10*3/uL [place] WBC (Bld) [#/Vol] 0.0 10*3/uL 0.0 per 100 WBC M [place] ABDOMEN PELVIS W IV CONTR AST Additional Contrast? Noneon 02-05-2019 [place], M[facility]pn Incoming Radiant Results From [employer] - 02/05/2019 6:20 PM EST EXAMINATION: CT OF THE ABDOMEN AND PELVIS WITH CONTRAST 02/05/2019 6:04 pm TECHNIQUE: CT of the abdomen and pelvis was performed with the administration of intravenous contrast. Multiplanar reformatted images are provided for review. Dose modulation, iterative reconstruction, and/or weight based adjustment of the mA/kV was utilized to reduce the radiation dose to as low as reasonably achievable. COMPARISON: CT abdomen pelvis April 14, 2018 HISTORY: ORDERING SYSTEM PROVIDED HISTORY: mid to lower left abdominal pain with vomiting, tachycardia TECHNOLOGIST PROVIDED HISTORY: mid to lower left abdominal pain with vomiting, tachycardia FINDINGS: Lower Chest: Clear Organs: The abdominal wall appears normal. The liver, spleen, pancreas, and adrenals appear normal. Gallbladder normal. Punctate nonobstructing nephroliths on the left. Right kidney normal. The bladder appears normal. GI/Bowel: Stomach appears normal. Appendix is normal. Colonic diverticulosis and several air-fluid levels in the colon. Small bowel is somewhat distended with multiple air-fluid levels. Pelvis: Fat containing inguinal hernias. Peritoneum/Retroperi toneum: The abdominal aorta and iliac arteries are normal in caliber. There is no pathologic adenopathy. Bones/Soft Tissues: Normal IMPRESSION: Ile[place], [place] EXAMINATION: CT OF THE ABDOMEN AND PELVIS WITH CONTRAST 02/05/2019 6:04 pm TECHNIQUE: CT of the abdomen and pelvis was performed with the administration of intravenous contrast. Multiplanar reformatted images are provided for review. Dose modulation, iterative reconstruction, and/or weight based adjustment of the mA/kV was utilized to reduce the radiation dose to as low as reasonably achievable. COMPARISON: CT abdomen pelvis April 14, 2018 HISTORY: ORDERING SYSTEM PROVIDED HISTORY: mid to lower left abdominal pain with vomiting, tachycardia TECHNOLOGIST PROVIDED HISTORY: mid to lower left abdominal pain with vomiting, tachycardia FINDINGS: Lower Chest: Clear Organs: The abdominal wall appears normal. The liver, spleen, pancreas, and adrenals appear normal. Gallbladder normal. Punctate nonobstructing nephroliths on the left. Right kidney normal. The bladder appears normal. GI/Bowel: Stomach appears normal. Appendix is normal. Colonic diverticulosis and several air-fluid levels in the colon. Small bowel is somewhat distended with multiple air-fluid levels. Pelvis: Fat containing inguinal hernias. Peritoneum/Retroperi toneum: The abdominal aorta and iliac arteries are normal in caliber. There is no pathologic adenopathy. Bones/Soft Tissues: Normal [place] Ile[place] Comprehensive Metabolic Pane karan 02-05-2019 Albumin [Mass/Vol] 4.6 g/dL 3.5 - 5.2 g/dL [place] Albumin/Globulin [Mass ratio] 1.4 {ratio} [place] ALP [Catalytic activity/Vol] 88 U/L 40 - 129 U/L [place] ALT [Catalytic activity/Vol] 43 U/L High 5 - 41 U/L [place] Anion gap [Moles/Vol] 19 mmol/L High 9 - 17 mmol/L [place] AST [Catalytic activity/Vol] 23 U/L <40 [place] Bilirubin Ql (U) 1.37 mg/dL High 0.3 - 1.2 mg/dL [place] Bun/Cre Ratio 16 [place] Calcium [Mass/Vol] 9.4 mg/dL 8.6 - 10.4 mg/dL [place] Chloride [Moles/Vol] 96 mmol/L Low 98 - 107 mmol/L [place] CO2 [Moles/Vol] 21 mmol/L 20 - 31 mmol/L [place] Creatinine [Mass/Vol] 0.9 mg/dL 0.7 - 1.2 mg/dL [place] GFR >60 >60 mL/min [place] GFR Non- >60 >60 mL/min [place] Glucose [Mass/Vol] 119 mg/dL High 70 - 99 mg/dL [place] Interpretation and review of laboratory results Abnormal [place] Potassium [Moles/Vol] 4.2 mmol/L 3.7 - 5.3 mmol/L [place] Protein [Mass/Vol] 8.0 g/dL 6.4 - 8.3 g/dL [place] Sodium [Moles/Vol] 136 mmol/L 135 - 144 mmol/L [place] Urea nitrogen [Mass/Vol] 14 mg/dL 6 - 20 mg/dL [place] Lactic Acid, Plasmaon 2018 Interpretation and review of laboratory results Abnormal [place] Lactate [Moles/Vol] 2.4 mmol/L High 0.5 - 2.2 mmol/L [place] Lactic Acid, Whole Blood NOT REPORTED 0.7 - 2.1 mmol/L [place] Lipaseon 02-05-2019 Lipase [Catalytic activity/Vol] 32 U/L 13 - 60 U/L [place] Metabolic Panelon 02-05-2019 GFR/1.73 sq M predicted among non-blacks MDRD (S/P/Bld) [Vol rate/Area] [place] Comment on above: Average GFR for 40-4 9 years old: 99 mL/min/1.73sq m Chronic Kidney Disease: <60 mL/min/1.73sq m Kidney failure: <15 mL/min/1.73sq m eGFR calculated using average adult body mass. Additional eGFR calculator available at: http://www.[employer]/multiple_crcl_2012.htm Stage 1: Some kidney damage normal GFR Stage 2: Mild kidney damage GFR 60-89 Stage 3: Moderate kidney damage GFR 30-59 Stage 4: Severe kidney damage GFR 15-29 Stage 5: Severe kidney damage GFR <15 ESRD - chronic treatment by dialysis or transplant Vital Signs Date Time Vital Sign Value Performing Clinician Rochelle cerrato 10-11-2022 15:03-0400 Diastolic blood pressure 81 mm[Hg] PHYSICIAN NO [facility] 10-11-2022 15:03-0400 Heart rate 75 /min PHYSICIAN NO [facility] 10-11-2022 15:03-0400 Respiratory rate 20 /min PHYSICIAN NO [facility] 10-11-2022 15:03-0400 SaO2% (BldA) [Mass fraction] 97 % PHYSICIAN NO [facility] 10-11-2022 15:03-0400 Systolic blood pressure 146 mm[Hg] PHYSICIAN NO [facility] 10-11-2022 12:17-0400 Body temperature 98.3 [degF] PHYSICIAN NO [facility] 10-11-2022 12:12-0400 Body height 175.26 cm PHYSICIAN NO [facility] 10-11-2022 12:12-0400 Body weight 128.6 kg PHYSICIAN NO [facility] 08-18-2022 12:04-0400 Body temperature 97.9 [degF] PHYSICIAN NO [facility] 08-18-2022 11:58-0400 Body height 177.8 cm PHYSICIAN NO [facility] 08-18-2022 11:58-0400 Body weight 129.36 kg PHYSICIAN NO [facility] 08-18-2022 11:58-0400 Diastolic blood pressure 115 mm[Hg] PHYSICIAN NO [facility] 08-18-2022 11:58-0400 Heart rate 107 /min PHYSICIAN NO [facility] 08-18-2022 11:58-0400 Respiratory rate 20 /min PHYSICIAN NO [facility] 08-18-2022 11:58-0400 SaO2% (BldA) [Mass fraction] 97 % PHYSICIAN NO [facility] 08-18-2022 11:58-0400 Systolic blood pressure 159 mm[Hg] PHYSICIAN NO [facility] 12-19-2021 18:32-0400 Body temperature 98.1 [degF] PHYSICIAN NO [facility] 12-19-2021 18:32-0400 Diastolic blood pressure 105 mm[Hg] PHYSICIAN NO [facility] 12-19-2021 18:32-0400 Heart rate 106 /min PHYSICIAN NO [facility] 12-19-2021 18:32-0400 Respiratory rate 20 /min PHYSICIAN NO [facility] 12-19-2021 18:32-0400 SaO2% (BldA) [Mass fraction] 96 % PHYSICIAN NO [facility] 12-19-2021 18:32-0400 Systolic blood pressure 153 mm[Hg] PHYSICIAN NO [facility] 12-19-2021 17:44-0400 Body height 177.8 cm PHYSICIAN NO [facility] 12-19-2021 17:44-0400 Body weight 134.55 kg PHYSICIAN NO [facility] 12-17-2021 09:40-0400 Body height 177.8 cm PHYSICIAN NO [facility] 12-17-2021 09:40-0400 Body temperature 98.1 [degF] PHYSICIAN NO [facility] 12-17-2021 09:40-0400 Body weight 134 kg PHYSICIAN NO [facility] 12-17-2021 09:40-0400 Diastolic blood pressure 108 mm[Hg] PHYSICIAN NO [facility] 12-17-2021 09:40-0400 Heart rate 114 /min PHYSICIAN NO [facility] 12-17-2021 09:40-0400 Respiratory rate 20 /min PHYSICIAN NO [facility] 12-17-2021 09:40-0400 SaO2% (BldA) [Mass fraction] 98 % PHYSICIAN NO [facility] 12-17-2021 09:40-0400 Systolic blood pressure 171 mm[Hg] PHYSICIAN NO [facility] 12-02-2021 14:50-0400 Body height 177.8 cm PHYSICIAN NO [facility] 12-02-2021 14:50-0400 Body temperature 98.6 [degF] PHYSICIAN NO [facility] 12-02-2021 14:50-0400 Body weight 133.2 kg PHYSICIAN NO [facility] 12-02-2021 14:50-0400 Diastolic blood pressure 102 mm[Hg] PHYSICIAN NO [facility] 12-02-2021 14:50-0400 Heart rate 117 /min PHYSICIAN NO [facility] 12-02-2021 14:50-0400 Respiratory rate 18 /min PHYSICIAN NO [facility] 12-02-2021 14:50-0400 SaO2% (BldA) [Mass fraction] 98 % PHYSICIAN NO [facility] 12-02-2021 14:50-0400 Systolic blood pressure 174 mm[Hg] PHYSICIAN NO [facility] 06-08-2021 14:28-0400 Heart rate 117 /min Steven Puga APRN - BANDAR Work Phone: [facility] 06-08-2021 14:28-0400 SaO2% (BldA) [Mass fraction] 95 % Steven Puga APRN - OFFICE ENGINEER Work Phone: [facility] 06-08-2021 14:22-0400 Body height 177.8 cm Steven Puga APRN - OFFICE ENGINEER Work Phone: [facility] 06-08-2021 14:22-0400 Body mass index (BMI) [Ratio] 44.77 kg/m2 Steven Puga APRN - OFFICE ENGINEER Work Phone: [facility] 06-08-2021 14:22-0400 Body temperature 98.1 [degF] Steven Puga APRN - OFFICE ENGINEER Work Phone: [facility] 06-08-2021 14:22-0400 Body weight 141.52 kg Steven Puga APRN - OFFICE ENGINEER Work Phone: [facility] 06-08-2021 14:22-0400 Diastolic blood pressure 120 mm[Hg] Steven Puga APRN - OFFICE ENGINEER Work Phone: [facility] 06-08-2021 14:22-0400 Respiratory rate 18 /min Steven Puga APRN - OFFICE ENGINEER Work Phone: [facility] 06-08-2021 14:22-0400 Systolic blood pressure 170 mm[Hg] Steven Puga ARSALAN Tillman CNP Work Phone: [facility] 03-19-2020 23:45-0500 BP Diastolic 101 mm[Hg] [facility] [place] 03-19-2020 23:45-0500 BP Systolic 148 mm[Hg] [facility] [place] , [place] 03-19-2020 23:45-0500 Pulse (Heart Rate) 117 /min [facility] [place] 03-19-2020 23:45-0500 Pulse Oximetry 94 % [facility] [place] , [place] 03-19-2020 23:45-0500 Respiratory Rate 23 /min [facility] [place] 03-19-2020 19:57-0500 Body Temperature 99.9 [degF] [facility] [place] 03-19-2020 17:38-0500 BMI (Body Mass Index) 45.92 kg/m2 [facility] [place] 03-19-2020 17:38-0500 Body weight 145.15 kg [facility] [place] 03-19-2020 17:38-0500 Height 177.8 cm [facility] [place] 10-21-2019 17:46-0400 BP Diastolic 103 mm[Hg] [facility] [place] 10-21-2019 17:46-0400 BP Systolic 163 mm[Hg] [facility] [place] 10-21-2019 17:37-0400 Pulse (Heart Rate) 109 /min [facility] [place] 10-21-2019 17:37-0400 Respiratory Rate 18 /min [facility] 10-21-2019 16:02-0400 BMI (Body Mass Index) 44.3 kg/m2 [facility] [place] 10-21-2019 16:02-0400 Body Temperature 97 [degF] [facility] 10-21-2019 16:02-0400 Body weight 136.08 kg [facility] [place] 10-21-2019 16:02-0400 Pulse Oximetry 96 % [facility] [place] 02-07-2019 08:18-0500 Body Temperature 97.7 [degF] [facility], [place] 02-07-2019 08:18-0500 BP Diastolic 102 mm[Hg] [facility] , [place] 02-07-2019 08:18-0500 BP Systolic 132 mm[Hg] [facility] [place] 02-07-2019 08:18-0500 Pulse (Heart Rate) 76 /min [facility] 02-07-2019 08:18-0500 Pulse Oximetry 96 % [facility] [place] 02-07-2019 08:18-0500 Respiratory Rate 16 /min [facility], [place] 02-07-2019 04:51-0500 BMI (Body Mass Index) 42.06 kg/m2 [facility], [place] 02-07-2019 04:51-0500 Body weight 129.18 kg Dat [facility] [place] 02-06-2019 08:10-0500 Height 175.3 cm [facility] [place] Encounters Encounter Date Encounter Type Care Provider Facility Start: 11-17-2022 End: 11-17-2022 ambulatory [facility] Start: 10-31-2022 End: 10-31-2022 ambulatory [facility] Start: 10-11-2022 End: 10-11-2022 Emergency department patient visit Isabel Rodas Facility:[facility] Start: 10-11-2022 End: 10-11-2022 Emergency department patient visit PHYSICIAN NO [facility] Work Phone: Start: 08-18-2022 End: 08-18-2022 Emergency department patient visit Kris Morales Facility:[facility] Start: 08-18-2022 End: 08-18-2022 Emergency department patient visit PHYSICIAN NO [facility] Work Phone: Start: 05-15-2022 End: 05-16-[address] NONE LISTED REQUEST Facility: Start: 05-11-2022 End: 05-11-[address] NONE LISTED REQUEST Facility: Start: 01-21-2022 End: 01-21-[address] [facility] Work Phone: Start: 01-21-2022 End: 01-21-2022 Discharged Recurring PHYSICIAN NO [facility] [address] Start: 12-19-2021 End: 12-19-2021 Emergency department patient visit PHYSICIAN NO [facility] Facility:[facility] Start: 12-19-2021 End: 12-19-2021 Emergency department patient visit PHYSICIAN NO [facility] Start: 12-17-2021 End: 12-17-2021 Emergency department patient visit Jenelle Judge Facility:[facility] Start: 12-17-2021 End: 12-17-2021 Emergency department patient visit PHYSICIAN NO [facility] Start: 12-02-2021 End: 12-02-2021 Emergency department patient visit Elian Elizondo Facility:[facility] Start: 12-02-2021 End: 12-02-2021 Emergency department patient visit PHYSICIAN NO [facility] Start: 06-08-2021 Emergency department patient visit STEVENJUAN PABLO PUGA [facility] Start: 06-08-2021 End: 06-08-2021 Emergency department patient visit Steven Riuz Laura INSTRUCTIONAL COACH - OFFICE ENGINEER Work Phone: [facility] ED Comment on above: Enteritis (Primary D x) Start: 03-19-2020 End: 03-20-2020 Emergency department patient visit [facility] ED Comment on above: COVID-19 (Primary Dx ) Start: 10-21-2019 End: 10-21-2019 Emergency department patient visit [facility] ED Comment on above: Left Achilles tendin itis (Primary Dx) Start: 02-05-2019 End: 02-07-2019 Evaluation and management of inpatient Dat Jean Baptiste Work Phone: [facility] Comment on above: Ileus (HCC) (Primary Dx) Procedures Date Procedure Procedure Detail Performing Clinician Start: 10-11-2022 Plain chest X-ray PHYSI FELA NO FAMILY Start: 08-18-2022 CT of head without contrast PHYSICIAN NO FAMILY Start: 12-17-2021 Plain X-ray of right wrist PHYSICIAN NO FAMILY Start: 12-02-2021 Plain chest X-ray PHYSI FELA NO FAMILY Start: 06-08-2021 Ct abdomen & pelvis w/contrast material Steven Ruiz Laura INSTRUCTIONAL COACH - OFFICE ENGINEER Work Phone: Start: 06-08-2021 Comprehensive metabo lic panel Steven Ruiz Laura INSTRUCTIONAL COACH - OFFICE ENGINEER Work Phone: Start: 03-19-2020 Ct thorax w/contrast material Arabella Blandon Work Phone: Start: 03-19-2020 COVID-19 Arabella Raymundo ying Work Phone: Start: 03-19-2020 Iaadiadoo influenza [facility] awais RaymundoBarber Work Phone: Start: 03-19-2020 Assay of lactate Arabella Barber Work Phone: Start: 03-19-2020 Assay of troponin quantitative Hari Rodriguez Start: 03-19-2020 Basic metabolic pane l calcium total Hari Rodriguez Start: 03-19-2020 Blood count complete auto&auto difrntl wbc Hari Rodriguez Start: 03-19-2020 Natriuretic peptide Maico stephani Rodriguez Start: 03-19-2020 Radiologic exam ches t single view Hari Rodriguez Start: 03-19-2020 Ecg routine ecg w/le ast 12 lds w/i&r Hari Rodriguez Start: 10-21-2019 Radex foot complete minimum 3 views Aman Toledo Work Phone: Start: 10-21-2019 Radex ankle complete minimum 3 views Aman Toledo Work Phone: Start: 02-06-2019 BASIC METABOLIC PANE L W/ REFLEX TO MG FOR LOW K Dat Jean Baptiste Work Phone: Start: 02-06-2019 Blood count complete automated Dat Jean Baptiste Work Phone: Start: 02-06-2019 Urinalysis microscop ic only Arabella Blandon Work Phone: Start: 02-06-2019 Urnls dip stick/tabl et rgnt auto w/o microscopy Arabellacornell Blandon Work Phone: Start: 02-05-2019 Cul bact stool aerob ic isol salmonella&shigell Arabella Barber Work Phone: Start: 02-05-2019 Toxin/antitoxin assa y tissue culture Arabella Babrer Work Phone: Start: 02-05-2019 Ct abdomen & pelvis w/contrast material Arabella Barber Work Phone: Start: 02-05-2019 Assay of lactate Arabella Barber Work Phone: Start: 02-05-2019 Assay of lipase Arabella Banner Work Phone: Start: 02-05-2019 Blood count complete automated Arabella Barber Work Phone: Start: 02-05-2019 Comprehensive metabo lic panel [facility] Work Phone: SARS Antigen (LFIA) PHYSICIA N NO FAMILY Plan of Treatment Date Care Activity Detail Author Start: 06-08-2022 Creatinine measurement Creatinine mo [facility] Start: 06-08-2022 Potassium monitoring Potassium monit [facility] Start: 03-19-2021 Creatinine measurement Creatinine mo [place], [place] Start: 03-19-2021 Potassium monitoring Potassium monit [place], [place] Start: 11-11-2020 Influenza vaccination Flu vaccine (# 1) [facility] Start: 02-07-2020 Creatinine measurement Creatinine mo [place], [place] Start: 02-07-2020 Potassium monitoring Potassium monit [place], [place] Start: 11-12-2019 Influenza vaccination Flu vaccine (# 1) [place], [place] Start: 06-28-2019 Creatinine monitoring Creatinine mon itoring [place] Start: 06-28-2019 Potassium monitoring Potassium monit [place], [place] Start: 11-11-2018 Influenza vaccination Flu vaccine (# 1) [place], [place] Start: 2018 Diabetes screen Diabetes screen [place], [place] Start: 2018 Lipid panel Lipid screen Kellie Hatch Start: 2018 Lipid screen [facility]id screen [facility] [place] [place] Start: 2013 Diabetes screen Diabetes screen [facility] Start: 1997 DTaP/Tdap/Td vaccine (1 - Tdap) DTaP/Tdap/Td vaccine (1 - Tdap) [facility] Start: 1993 HIV screen HIV screen [place], [place] Start: 1993 HIV screening HIV screen [facility] Start: 1990 Depression Screen Depression Screen [facility] Start: 1989 DTaP/Tdap/Td vaccine (1 - Tdap) DTaP/Tdap/Td vaccine (1 - Tdap) [place], [place] Start: 1983 COVID-19 Vaccine (1) COVID-19 Vaccin e (1) [facility] Start: 1978 Hepatitis C screening Hepatitis C sc [facility] End: 03-19-2020 Culture, Blood 1 Culture, Blood 1 Microbiology STAT One Time for 1 Occurrences starting 03/19/2020 until 03/19/2020 [place], [place] Comment on above: One Time for 1 Occur rences starting 03/19/2020 until 03/19/2020 Culture, Blood 1 Culture, Blood 1 Microbiology STAT 03/19/2020 6:00 PM EST [place] EKG 12 Lead EKG 12 Lead ECG STAT 03/19/2020 5:53 PM [place], [place] Initiate Oxygen Ther apy Protocol Initiate Oxygen Therapy Protocol Respiratory Care Routine Daily until discontinued starting 02/05/2019 [place] Comment on above: Daily until disconti nued starting 02/05/2019 Nasal Cannula Oxygen Nasal Cannu la Oxygen Respiratory Care STAT Daily until discontinued starting 03/19/2020 [place] Comment on above: Daily until disconti nued starting 03/19/2020 Patient Education [facility] Work Phone: Patient referral [facility] Work Phone: End: 02-05-2019 Pulse Oximetry Spot Check Pulse Oximetry Spot Check Respiratory Care Routine One Time for 1 Occurrences starting 02/05/2019 until 02/05/2019 [facility] SHABANA RUTH Comment on above: One Time for 1 Occur rences starting 02/05/2019 until 02/05/2019 End: 06-08-2021 Urinalysis with Microscopic Urinalysis with Microscopic Lab STAT One Time for 1 Occurrences starting 06/08/2021 until 06/08/2021 [employer] Work Phone: Comment on above: One Time for 1 Occur rences starting 06/08/2021 until 06/08/2021 Payers Date Payer Category Payer Unknown [id number] 1978 Unknown [id number] 1959 Self-pay 1959 Worker's Compensation [id number] Unknown [id number] [id number] Unknown [id number] [id number] Unknown [id number] [id number] [id number] Unknown [id number] [id number] [id number] Unknown [id number] [id number] Unknown [id number] [id number] Social History Date Type Detail Facility Start: 10-21-2019 End: 10-11-2022 Tobacco smoking status NHIS Former smoker [facility] SHABANA RUTH Start: 04-05-2015 End: 10-21-2019 Tobacco use and exposure Never used [facility] SHABANA RUTH Start: 10-21-2019 End: 06-08-2021 Alcohol intake Current non-drinker of alcohol (finding) [facility] Start: 1980 [facility]igned [facility] Start: 05-29-2021 End: 06-08-2021 Exposure to SARS-CoV-2 (event) Not sure [facility] SHABANA RUTH Start: 12-02-2021 End: 12-19-2021 Tobacco smoking status NHIS Never smoked tobacco (finding) [facility] Start: 1980 Sex Assigned At Male F [facility] Clinical Notes 06-08-2021 to 02-01-2023 InstructionsAttachments Note Date & Type Note Facility 02-01-2023 Note This report has been cancelled. [facility] 02-01-2023 Note This report has been cancelled. [facility] 11-17-2022 Note Cardiovascular Labor atory Report FINAL IMPRESSIONS: Angiographically nonobstructive coronary arteries Mildly reduced global left ventricular systolic function by noninvasive imaging Moderate systemic hypertension RECOMMENDATIONS: Consider nonischemic etiologies for the patient's cardiomyopathy Aggressive cardiovascular factor modification Optimal medical therapy for mild plaque disease should include aspirin, and a moderate to high intensity statin as well as a beta-bronson Guideline directed medical therapy for heart failure with reduced ejection fraction should include a beta-bronson, RAAS inhibitor, an SGLT2 inhibitor and spironolactone; we will add the latter 2 A basic metabolic panel will be checked in a week Follow-up with [facility] in the [facility] in the next 2 to 3 months or sooner should problems arise PROCEDURES: Ultrasound-guided access to the left radial artery, bilateral selective coronary angiography via a left radial approach METHODS: After risks, benefits, and alternatives were explained, written informed consent was obtained. The patient was prepped and draped in usual sterile fashion over the left wrist. Local infiltration anesthesia was achieved of the left wrist. Using a micropuncture kit, access to the left radial artery was obtained. A 6 Mozambican glide sheath was inserted without difficulty. Bilateral selective coronary angiography was performed using JR 4.0 and JL 4.0 catheters. After reviewing the images, it was elected to conclude the procedure. The catheters were removed. The radial sheath was removed with application of a TR band per protocol to achieve optimal hemostasis. FINDINGS: Hemodynamics: AO 149/95 113] LEFT VENTRICULOGRAPHY: This was not performed. Ejection fraction is 46% by noninvasive stress test. CORONARY ARTERIES: Left main coronary artery: This arises from the left coronary cusp, it bifurcates into the left anterior descending and left circumflex coronary arteries. It is free of significant stenoses. Left anterior descending coronary artery: This is angiographically nonobstructive. There is caliber reduction of the trifurcation into a branching third diagonal. There is mild plaque at this location. Left circumflex coronary artery: This is angiographically nonobstructive. Right coronary artery: This arises from the right coronary cusp, it is a dominant vessel giving rise to the posterior descending and posterolateral branches. It is free of significant stenoses. INDICATIONS: Abnormal stress test, reduced ejection fraction [facility] 11-17-2022 Note Patient: Lawson stark Procedure Information Date/Time: 11/17/22 1030 Procedure: Coronary angiography (Bilateral) Location: [facility] CYBER SECURITY ANALYST 3 / [facility] (Cath) Providers: Garret Michelle MD Clinical information reviewed: Allergies Meds Physical Exam Airway Mallampati: III Neck ROM: full Cardiovascular Rhythm: regular Rate: normal Dental Pulmonary Breath sounds clear to auscultation Abdominal Abdomen: soft Bowel sounds: normal Anesthesia Plan ASA 3 other (Conscious Sedation ) Anesthetic plan and risks discussed with patient. Use of blood products discussed with patient who consented to blood products. Additional Equipment Requests [facility] 10-31-2022 Note [facility] Card[facility] Clinic Note Chief Complaint: Patient here for follow up [facility] for chest pain. He was seen as inpatient consult by Melania Alarcon CNP. Had inpatient stress test. HPI: Lawson Cavanaugh is a 42 y.o. male seen by Melania Rosas as an inpatient consult 09/05/2022 for chest pain; felt to be reproducible chest pain with normal troponins x3, no significant EKG changes. Likely chest pain related to musculoskeletal etiologies also in the setting of uncontrolled hypertension. Past medical history: Hypertension, dyslipidemia, tobacco abuse, syncope For the past 2 months, he has noticed worsening exertional shortness of breath and chest pressure. This occurs typically with exertion. He has to rest and the discomfort/pressure resolves. He denies orthopnea or paroxysmal external dyspnea, he has no lower extremity edema. He stopped smoking after his recent hospital admission. He drinks an alcoholic beverage maybe once a month. No family history of premature coronary artery disease Cardiology ROS: Review of Systems Cardiovascular: Positive for dyspnea on exertion and leg swelling. Neurological: Positive for headaches. Psychiatric/Behavioral: The patient is nervous/anxious. All other systems reviewed and are negative. Past Medical History He has no past medical history on file. Surgical History He has no past surgical history on file. Social History He has no history on file for tobacco use, alcohol use, and drug use. Family History No family history on file. Allergies Patient has no allergy information on record. Medications No current outpatient medications on file. Last Recorded Vitals BP (!) 165/102 (BP Location: Left arm, Patient Position: Sitting) Pulse 79 Ht 1.753 m (5' 9 ) Wt 128 kg (283 lb) SpO2 97% BMI 41.79 kg/m??? Physical Examination: GENERAL: alert and oriented x3, well developed, in no acute distress. HEAD: atraumatic, normocephalic. EYES: CRISTINE, EOMI. NECK: trachea midline, no JVD present, no carotid bruits present. CARDIAC: S1, S2 present. RRR. No murmur, rubs, or gallops. RESPIRATORY: CTAB, no increased effort of breathing, no rales, rhonchi, or wheezing. ABDOMEN: soft, nontender, nondistended. EXTREMITIES: no lower extremity edema, peripheral pulses are 2+ bilaterally. No rash/skin discoloration present. NEURO: strength/sensation equal and symmetric in bilateral upper and lower extremities. PSYCH: appropriate mood, affect, and judgement. Investigations: Echocardiogram 09/05/2022: Indications: Chest pain, hypertension, smoker Conclusion: Left ventricular systolic function is low normal limits; EF 50 to 55%. Right ventricle is normal size and systolic function. No significant valvular dysfunction. No pericardial effusion Stress test 09/06/2022: Normal exercise stress test. Nuclear portion: Conclusion fixed defects in the basal anterior wall and inferior wall. No reversible ischemia. EF 46%. Hypokinesis of associated hester. Assessment: Chest pain Dyspnea on exertion Uncontrolled hypertension Dyslipidemia Smoker Abnormal stress test Systolic dysfunction; ejection fraction 46% on stress test Plan: Will start the patient on aspirin 81 mg daily Continue lisinopril and uptitrate as needed; will consider addition of an SGLT2 inhibitor, and spironolactone after his cardiac catheterization Discontinue Toprol-XL and start Coreg 6.25 mg p.o. twice daily and uptitrate as needed Given his risk factor profile, abnormal stress test particularly reduced ejection fraction, I have recommended proceeding with cardiac catheterization; we will schedule him for a right heart catheterization and coronary angiography via right internal jugular and left radial approach in the coming week or two Further recommendations pending the above Garret Michelle MD, MPH, [facility] Interventional Cardiology Pager Email: [email or web address] 06-08-2021 Hospital Discharge instructions Steven Puga, ARSALAN - OFFICE ENGINEER - 06/08/2021 Increase your fluid intake. Take Bentyl as prescribed. Follow-up with PCP for reevaluation in the next couple of days. Avoid dairy, spicy and fatty foods for the next week. Return here for increased pain, fever, difficulty breathing, vomiting or new or worsening signs or symptoms. The following attachments cannot be sent through Care Everywhere.Gastroenteritis (Bhutanese)documented in this encounter [employer] Work Phone: Evaluation note Diagnosis Enteritis- Primary Other and unspecified noninfectious gastroenteritis and colitis documented in this encounter [employer] Work Phone: evaluation noteNo assessment information available [facility] Work Phone: Hospital Discharge instructions Additional Instructions Rest ice elevate Use the wrist splint for comfort Take ibuprofen every 6 hours for discomfort Follow-up with either [facility] or [place] [facility] Follow-up with [place] [facility] especially if not getting better [facility] Work Phone: Hospital Discharge instructions Additional Instructions Return for new or worsening symptoms [facility] with family doctor [facility] Work Phone: Hospital Discharge instructions Additional Instructions Please return to emergency department for any new or worrisome symptoms including any weakness, numbness, headache, vision changes. Follow-up with your family physician as soon as possible[facility] Work Phone: Discharge Instructions * Attachments The following attachments cannot be sent through Care Everywhere. * Tendon Injury (Tendinopathy) (Bhutanese) documented in this encounter* Instructions* Lobito Sidhu MD - 03/19/2020 Very strict return to ER precautions for any worsening symptoms, chest pain shortness of breath, pulse ox less than 92% Please take all medications as prescribed. Please follow up with your primary care physician by calling today, or as soon as possible, for thefirst available appointment. If you do not have a primary care physician, please contact a physician or clinic listed below today to establish care. Please return to the emergency department IMMEDIATELY if you develop uncontrolled fevers, uncontrolled vomiting, change in symptoms, worsening of symptoms, or ANY other concerns. * Attachments The following attachments cannot be sent through Care Everywhere. * Coronavirus Disease (COVID-19): General Info (Bhutanese) * Coronavirus Disease (COVID-19): Isolation (Bhutanese) documented in this encounter* Instructions* Bambi Segal RN - 02/07/2019 Learning About Ileus What is ileus? Ileus (say ILL-ee-us ) is a blockage of the bowel (intestines) that happens when the intestines don't work as they should. Normally, muscles in the intestines squeeze to push food and waste along. When this process stops, the intestines stop digesting food and moving waste out of the body. This may also be called paralytic ileus. Ileus is not the same as a mechanical bowel obstruction. In a mechanical bowel obstruction, something is actually blocking the intestine, like scar tissue or a tumor. That is not true in ileus. Ileus sometimes happens after surgery to the belly. But it can also be caused by other things, suchas some medicines, certain diseases or infections, and nerve problems. The doctor may do a number of tests. These tests may include X-rays, blood tests, and a CT scan. Testing can help the doctor be sure that nothing is blocking the intestines. Most people who have ileus need to be treated in the hospital. What are the symptoms? Symptoms may include: Cramping belly pain. Bloating. Nausea or vomiting. Not passing stool or gas. How is ileus treated? You will need to avoid eating solid food until you are better. Instead, you will get fluids and nutrition through a vein (IV). This helps prevent dehydration. It also lets your bowel rest. You may have a tube that goes through your nose and into your stomach. This can help ease pain and bloating. You may get other treatments, depending on what caused ileus. For example, a medicine might be stopped if it is affecting your bowel. The intestines will often start working again in a few days. Signs of this include being able to pass gas or have a bowel movement. As your intestines start working, you will switch slowly from a liquid diet back to solid foods. Follow-up care is a landa part of your treatment and safety. Be sure to make and go to all appointments, and call your doctor if you are having problems. It's also a good idea to know your test resultsand keep a list of the medicines you take. Where can you learn more? Go to [email or web address] and sign in to your [employer] account. Enter M933 in the Search Health Information box to learn more about Learning About Ileus. If you do not have an account, please click on the Sign Up Now link. Current as of: January 17, 2018 Content Version: [id number] [employer]. Care instructions adapted under license by [employer]. If youhave questions about a medical condition or this instruction, always ask your healthcare professional. [employer] disclaims any warranty or liability for your use of this information. documented in this encounter Assessments Diagnosis Left Achilles tendinitis Achilles bursitis or tendinitis Diagnosis COVID-19- Primary Diagnosis Abdominal pain with Ileus- Primary Abdominal pain, unspecified site Ileus (HCC) Paralytic ileus Essential hypertension Unspecified essential hypertension Advance Directives No Advanced Directives Records FoundDocuments on File Type Date Recorded Patient Geometry Tutor Expl anation Advance Directives and Living Will Power of Swat Team Member Latest Code Status on File Code Status Date Activated Date Inactivated Comments Full Code 02/05/2019 9:40 PM 02/07/2019 3:36 PM Full Code 06/22/2016 5:58 AM 06/22/2016 7:53 PM Documents on File Type Date Recorded Patient Geometry Tutor Expl anation ACP-Advance Directive ACP-Power of Swat Team Member Latest Code Status on File Code Status Date Activated Date Inactivated Comments Full Code 02/05/2019 9:40 PM Advance Directive Response Recorded Date/ Time Advance Directives No November 3:14pm Advance Directive Response Recorded Date/ Time Advance Directives No November 2:14pm Hospital Course * Tal Gonzalez MD - 02/07/2019 11:47 AM EST Tal Gonzalez M.D. Internal Medicine Discharge Summary Patient ID: Lawson Cavanaugh [id number] Admission date: 02/05/2019 Discharge date: 02/07/2019 Admitting Physician: Dat Jean Baptiste MD Primary Care Physician: none Primary Discharge Diagnoses: Patient Active Problem List Diagnosis Date Noted Abdominal pain with Ileus 02/05/2019 Acute pharyngitis 04/23/2017 Essential hypertension 04/23/2017 Chest pain 06/22/2016 History of tobacco abuse 06/22/[address] 06/22/2016 Additional Diagnoses: Diagnosis Date Diverticulosis Hypertension Hospital Course: The patient was admitted for abd pain and ileus. He passed stool yesterday and is tolerating diet today. His BP was elevated and he was started on amlodipine. He has no PCP but will be referred to [facility]. Discharge Exam: GEN: Awake, alert and oriented x3. EYES: EOMI, pupils equal NECK: Supple. No lymphadenopathy. No carotid bruit CVS: regular rate and rhythm, no audible murmur PULM: CTA, no wheezes, rales or rhonchi, no acute respiratory distress ABD: Bowels sounds normal. Abdomen is soft. No distention. no tenderness to palpation. EXT: no edema bilaterally . No calf tenderness. NEURO: Motor and sensory are grossly intact SKIN: No rashes. No skin lesions. Consultants: none Procedures: none Complications: none Significant Diagnostic Studies: Discharge Labs: Lab Results Component Value Date WBC 10.7 02/06/2019 HGB 15.1 02/06/2019 MCV 89.5 02/06/2019 PLT 198 02/06/2019 Lab Results Component Value Date GLUCOSE 130 (H) 02/06/2019 BUN 15 02/06/2019 CREATININE 0.94 02/06/2019 NA 135 02/06/2019 K 3.7 02/06/2019 CALCIUM 8.4 (L) 02/06/2019 CL 99 02/06/2019 CO2 23 02/06/2019 Discharge Condition: stable Disposition: Discharge to Home Discharge Medications: Lawson Cavanaugh Home Medication Instructions [id number] Printed on:02/07/19 1147 Medication Information amLODIPine (NORVASC) 5 MG tablet Take 1 tablet by mouth daily Patient Instructions: Activity: activity as tolerated Diet: regular diet Wound Care: none needed Follow up with [facility]2 weeks CORE MEASURES on Discharge (if applicable) DORCAS/ARB in CHF: N/A ASA in UT: N/A Statin in UT: N/A Statin in CVA: N/A Antiplatelet in CVA: N/A Total time spent on discharge services: 25 minutes Including the following activities: Evaluation and Management of patient Discussion with patient and/or surrogate about current care plan Coordination with Case Management and/or Foreign Diplomat Coordination of care with Consultants (if applicable) Coordination of care with Receiving Facility Physician (if applicable) Completion of DME forms (if applicable) Preparation of Discharge Summary Preparation of Medication Reconciliation Preparation of Discharge Prescriptions Signed: Tal Gonzalez M.D. 02/07/2019 11:47 AM documented in this encounter History of Present Illness * Bambi Segal RN - 02/07/2019 1:33 PM EST Discharge instructions reviewed and voices understanding. IV discontinued and patient dressed for home. All belongings packed and sent home with patient. Ambulates off department floor escorted by staff and family. Denies complaint. * Tal Gonzalez MD - 02/07/2019 11:29 AM EST Tal Gonzalez M.D. Internal Medicine Progress Note 02/07/19 SUBJECTIVE: Patient seen for f/u of Abdominal pain. He states his pain has resolved and he is having normal BM's. Tolerating clear liquid diet without any difficulty. ROS: Constitutional: negative for fevers, and negative for chills. Respiratory: negative for shortness of breath, negative for cough, and negative for wheezing Cardiovascular: negative for chest pain, and negative for palpitations Gastrointestinal: negative for abdominal pain, negative for nausea,negative for vomiting, negative for diarrhea, and negative for constipation All other systems were reviewed with the patient and are negative unless otherwise stated in HPI OBJECTIVE: Vitals: Temp: 97.7 F (36.5 C) BP: (!) 132/102 Resp: 16 Pulse: 76 SpO2: 96 % 24HR INTAKE/OUTPUT: Intake/Output Summary (Last 24 hours) at 02/07/2019 1131 Last data filed at 02/07/2019 0450 Gross per 24 hour Intake 3143 ml Output Net 3143 ml Exam: GEN: Awake, alert and oriented x3. EYES: EOMI, pupils equal NECK: Supple. No lymphadenopathy. No carotid bruit CVS: regular rate and rhythm, no audible murmur PULM: CTA, no wheezes, rales or rhonchi, no acute respiratory distress ABD: Bowels sounds normal. Abdomen is soft. No distention. no tenderness to palpation. EXT: no edema bilaterally . No calf tenderness. NEURO: Motor and sensory are grossly intact SKIN: No rashes. No skin lesions. Diagnostic Data: All available data reviewed Lab Results Component Value Date WBC 10.7 02/06/2019 HGB 15.1 02/06/2019 MCV 89.5 02/06/2019 PLT 198 02/06/2019 Lab Results Component Value Date GLUCOSE 130 (H) 02/06/2019 BUN 15 02/06/2019 CREATININE 0.94 02/06/2019 NA 135 02/06/2019 K 3.7 02/06/2019 CALCIUM 8.4 (L) 02/06/2019 CL 99 02/06/2019 CO2 23 02/06/2019 Narrative EXAMINATION: CT OF THE ABDOMEN AND PELVIS WITH CONTRAST 02/05/2019 6:04 pm TECHNIQUE: CT of the abdomen and pelvis was performed with the administration of intravenous contrast. Multiplanar reformatted images are provided for review. Dose modulation, iterative reconstruction, and/or weight based adjustment of the mA/kV was utilized to reduce the radiation dose to as low as reasonably achievable. COMPARISON: CT abdomen pelvis April 14, 2018 HISTORY: ORDERING SYSTEM PROVIDED HISTORY: mid to lower left abdominal pain with vomiting, tachycardia TECHNOLOGIST PROVIDED HISTORY: mid to lower left abdominal pain with vomiting, tachycardia FINDINGS: Lower Chest: Clear Organs: The abdominal wall appears normal. The liver, spleen, pancreas, and adrenals appear normal. Gallbladder normal. Punctate nonobstructing nephroliths on the left. Right kidney normal. The bladder appears normal. GI/Bowel: Stomach appears normal. Appendix is normal. Colonic diverticulosis and several air-fluid levels in the colon. Small bowel is somewhat distended with multiple air-fluid levels. Pelvis: Fat containing inguinal hernias. Peritoneum/Retroperitoneum: The abdominal aorta and iliac arteries are normal in caliber. There is no pathologic adenopathy. Bones/Soft Tissues: Normal Impression Ileus PROBLEM LIST: Principal Problem: Abdominal pain with Ileus Active Problems: Essential hypertension Resolved Problems: * No resolved hospital problems. * ASSESSMENT / PLAN: Fever, tachycardia, lactic acidosis and leukocytosis on admission but no source of infection Therefore meets SIRS criteria - which are all resolved now Abdominal pain with ileus + BM abd pain resolved Advance to reg diet - DC home if tolerates Hypertension Continue amlodipine DVT prophylaxis: Lovenox High risk medications: none Disposition: Discharge plan is home Tal Gonzalez M.D. 02/07/2019 11:31 AM * Yvette Arredondo RN - 02/06/2019 6:56 PM EST Pt able to tolerate clear liquid dinner. Pt denies N&V at this time. Pt denies need to pain medications at this time. * Megan Meza RN - 02/06/2019 1:56 PM EST Spoke with Dr. Jean Baptiste, orders received. Pharmacy updated. * Megan Meza RN - 02/06/2019 1:36 PM EST Patient up independently in room. Reports large loose BM. Megan Cheng RN - 02/06/2019 1:25 PM EST Orders received from Dr. Jean Baptiste via fax, message left with office for clarification of dose/frequency. * Megan Meza RN - 02/06/2019 11:01 AM EST Dulcolax admin this am, no BM noted yet. Patient encouraged to ambulate in [place]. Ambulates independently in room without difficulty. Tolerating ice chips. Denies any nausea, no emesis noted. States pain is manageable, rates at 4 on pain scale. Resting in bed, call light in reach. Megan Silva RN - 02/06/2019 10:56 AM EST Facsimile Transmission Cover Sheet Information contained in this transmission is for the sole use of the intended recipients and may contain confidential and privileged information. Any unauthorized review, use, disclosure or distribution is prohibited. If you are not the intended recipient, please contact the sender and destroy allcopies of the original message. Disclosure is made for the purpose of healthcare operations and continuity of care. To: __Dr. Jean Baptiste From: [facility] Sender:_KSchwochowRN Phone Number:_[phone] This request is: Urgent - No Information and/or questions regarding patient condition: Regarding Matti Cavanaugh- Patient is hypertensive today, BP's 149/101 right arm, 156/104 left arm. HR controlled at 85. He has a history of HTN, but takes no routine meds. Had dulcolax today, no BM yet. Would you like any changes? Also, Patient had one time dose of Flagyl and Cipro last night in ER. Did you want to continue any ATB? Thanks! Megan Meza RN Physician Signature, Date and Time needed for any orders written on this fax. Thank you. Signature Date Time * Jamir Reed MSW, FREDY - 02/06/2019 10:51 AM EST Social Work intial Assessment/Discharge Plan Diagnosis: Abdominal pain with Lleus Met with: Patient PCP: None. Chose [facility] Payment Source: Private. No insurance. Advance Directives: None Code Status: Full Mental Status: Alert and oriented Living Arrangement: Patient lives at home in [place] with a roommate Support Systems: Roommate and other friends. Patient able to perform ADL's: Independent Current Services: None Current DME Equipment: None Able to get medication fill & pharmacy: Patient states that he only gets non- prescription drugson an as needed basis. Patient states that he's never had insurance since he's never been sick . Transportation provider: Patient drives Collaborative List of SNF/HH were provided: N/A Any concerns or Barriers to discharge: Patient has no doctor nor does he have a preference for one.He also states that he doesn't have any medical insurance since he's never had the need for any. Anticipated Needs/Discharge Plan: Patient will return home to [place] where he resides with a roommate. He states that he is able to support himself through employment. This patient does not anticipate any needs at this point. * Rancho Nguyen RD, LD - 02/06/2019 8:10 AM EST Nutrition Assessment Type and Reason for Visit: Initial Nutrition Recommendations: PO advancement as GI tolerated. Nutrition Assessment: Inadequate nutrient intakes r/t alteration in GI status, AEB NPO status with ileus. Unintentional weight losses in addition to intentional declines, per patient report of doing cardio for weight loss, as well as ceasing use of pop in diet. Tolerating ice chips currently with hypoactive b/s. Weight likely to rebound with iv hydration. Will monitor NPO duration. Malnutrition Assessment: Malnutrition Status: At risk for malnutrition Context: Acute illness or injury Findings of the 6 clinical characteristics of malnutrition (Minimum of 2 out of 6 clinical characteristics is required to make the diagnosis of moderate or severe Protein Calorie Malnutrition based on AND/ASPEN Guidelines): 1. Energy Intake-Less than or equal to 50% of estimated energy requirement, (24 hours) 2. Weight Loss-2% loss or greater, in 1 week 3. Fat Loss-No significant subcutaneous fat loss, 4. Muscle Loss-No significant muscle mass loss, 5. Fluid Accumulation-No significant fluid accumulation, 6. Tool Smith Strength-Not measured Nutrition Risk Level: Moderate Nutrient Needs: Estimated Daily Total Kcal: 1152-9049(12-17) Estimated Daily Protein (g): 95-109(1.3-1.5) Estimated Daily Total Fluid (ml/day): 2200+ Nutrition Diagnosis: Problem: Inadequate oral intake Etiology: related to Alteration in GI function ? Signs and symptoms: as evidenced by NPO status due to medical condition Objective Information: Nutrition-Focused Physical Findings: no malnutrition indices Wound Type: None Current Nutrition Therapies: Oral Diet Orders: NPO Oral Diet intake: NPO Oral Nutrition Supplement (ONS) Orders: None Anthropometric Measures: Ht: 5' 9 (175.3 cm) Current Body Wt: 284 lb 4.8 oz (129 kg) Admission Body Wt: 290 lb (131.5 kg) Usual Body Wt: 290 lb (131.5 kg)(high of 298# (intentional weight losses to 290#)) % Weight Change: , 2% loss from 290# Desha Body Wt: 160 lb (72.6 kg), % Desha Body 178% BMI Classification: BMI > or equal to 40.0 Obese Class III Lab Results Component Value Date NA 135 02/06/2019 K 3.7 02/06/2019 CL 99 02/06/2019 CO2 23 02/06/2019 BUN 15 02/06/2019 CREATININE 0.94 02/06/2019 GLUCOSE 130 (H) 02/06/2019 CALCIUM 8.4 (L) 02/06/2019 PROT 8.0 02/05/2019 LABALBU 4.6 02/05/2019 BILITOT 1.37 (H) 02/05/2019 ALKPHOS 88 02/05/2019 AST 23 02/05/2019 ALT 43 (H) 02/05/2019 LABGLOM >60 02/06/2019 GFRAA >60 02/06/2019 GLOB NOT REPORTED 04/14/2018 No results found for: LABA1C No results found for: EAG Nutrition Interventions: Start oral diet(as GI feasible) Continued Inpatient Monitoring, Coordination of Care, Education not appropriate at this time Nutrition Evaluation: Evaluation: Goals set Goals: PO>75% of advanced diet Monitoring: Meal Intake, Pertinent Labs, Weight, I&O, Patient/Family Education, Monitor Bowel Function Contact Number: [phone] * Marija Plummer RN - 02/06/2019 4:31 AM EST Pt ambulates around room as needed, lets needs be known, resting in bed with eyes closed and resp. Unlabored at this time Marija Horta RN - 02/06/2019 12:45 AM EST Pt sitting up in bed watching television, vitals reassessed, denies any needs at this time * Marija Plummer RN - 02/05/2019 7:57 PM EST Pt in room resting in bed with eyes open, saeed. Unlabored, rating pain a 5 on 0- 10 scale, assessmentcomplete, bolus running from ED orders into left AC, pt shows no s/s of distress or complications at this time, call light given and oriented to room, pr watching tv when development geologist left room documented in this encounter Summary Purpose Family History No Family History Records FoundNo Family History Records FoundNo Family History Records FoundNo Family History Records Found Chief Complaint and Reason for Visit Chief Complaint chest congestion Chief Complaint chest congestion rt wrist pain jeremy rich Chief Complaint chest congestion rt wrist pain zitao janelle rich Rt wrist pain Chief Complaint chest congestion rt wrist pain ico janelle rich Rt wrist pain rt wrist injury Chief Complaint dizzy , nausea hit h ead ico @janelle rich 6/7 numbness in hands/face Additional Source Comments Reason for Visit (unrecogniz ed section and content) Reason Comments Abdominal Pain Diffuse, bloating. O nset last PM. Pt reports history of Ulcerative Colitis and Diverticulosis. Last BM this AM Reason Comments Nausea Flank Pain abd pain left side u mbilical area radiates to flank area, started this am Diarrhea started this am Reason Comments Nausea Onset 2 days ago Cough Productive, onset to day Generalized Body Aches Ordered Prescriptions (unrec ognized section and content) Prescription Sig Dispensed Refills Start Date End Da te acetaminophen (TYLENOL) 325 MG tablet Take 2 tablets by mouth every 6 hours as needed for Pain 30 tablet 0 03/19/2020 ibuprofen (ADVIL;MOTRIN) 800 MG tablet Take 1 tablet by mouth every 8 hours as needed for Pain 30 tablet 0 03/19/2020 Prescription Sig Dispensed Refills Start Date End Da te ondansetron (ZOFRAN) 4 MG tablet Take 1 tablet by mouth 3 times daily as needed for Nausea or Vomiting 15 tablet 0 06/08/2021 dicyclomine (BENTYL) 10 MG capsule Take 1 capsule by mouth 4 times daily 40 capsule 0 06/08/2021 Scheduled Active and Recently Administ ered Medications (unrecognized section and content) Medication Order 06/06/2021 06/07/2021 06/08/2021 dicyclomine (BENTYL) injection 20 mg 20 mg, IntraMUSCular, 4 TIMES DAILY, First dose on Mon06/08/21 at 1700, Until Discontinued 1650 (Given - Provid er: Wilfredo Reynolds RN)2100 (Due) ondansetron (ZOFRAN) injection 4 mg (COMPLETED) 4 mg, IntraVENous, ONCE, 1 dose, On Mon06/08/21 at 1645 1650 (Given - Provid er: Wilfredo Reynolds RN) PRN Medication Order 06/06/2021 06/07/2021 06/08/2021 iopamidol (ISOVUE-370) 76 % injection 75 mL (COMPLETED) 75 mL, IntraVENous, IMG ONCE PRN, 1 dose, Starting on Mon06/08/21 at 1525, Until Mon06/08/21 at 1528, Other 1528 (Given - Provid er: Toya Banda) (unrecognized sect ion and content) No Status Records FoundNo Status Records FoundNo Status Records FoundNo Status Records Found INFORMATION SOURCE (unrecogn ized section and content) DATE CREATED AUTHOR 06/10/2021 [facility] DATE CREATED AUTHOR AUTHOR'S ORGANIZ ATION 05/17/2022 [facility] DATE CREATED AUTHOR AUTHOR'S ORGANIZ ATION 10/24/2022 [facility] DATE CREATED AUTHOR AUTHOR'S ORGANIZ ATION 03/04/2023 [facility] Care Teams (unrecognized sec tion and content) Team Status: Inactive Member Role Status Dates PHYSICIAN NO FAMILY Primary Care Provider Active Team Status: Inactive Member Role Status Dates PHYSICIAN NO FAMILY Primary Care Provider Active Tiki Schmidt PA-C Emergency Provider Active Team Status: Inactive Member Role Status Dates PHYSICIAN NO FAMILY Primary Care Provider Active VIOLETTE SerratoP-ANILA Emergency Provider Active Team Status: Inactive Member Role Status Dates PHYSICIAN NO FAMILY Primary Care Provider Active Elian Elizondo APRN Emergency Provider Active Team Status: Active Member Role Status Dates PHYSICIAN NO FAMILY Primary Care Provider Active Team Status: Active Member Role Status Dates Isabel Rodas NP-C Primary Care Provider Active Team Status: Inactive Member Role Status Dates PHYSICIAN NO FAMILY Primary Care Provider Active Kris Morales DO Emergency Provider Active Team Status: Inactive Member Role Status Dates Isabel Rodas PEDIATRIC CNS-C Primary Care Provider Active Socorro Osullivan MD Emergency Provider Active Goals (unrecognized section and content) Goals may be documented in a n alternate sectionGoals may be documented in an alternate sectionGoals may be documented in an alternate sectionGoals may be documented in an alternate sectionGoals may be documented in an alternate section FOR RECORDS PERTAINING TO PATIENTS WHO ARE OR HAVE BEEN ENROLLED IN A CHEMICAL DEPENDENCY/SUBSTANCEABUSE PROGRAM, SOME INFORMATION MAY BE OMITTED. This clinical summary was aggregated from multiple sources. Caution should be exercised in using it in the provision of clinical care. This summary normalizes information from multiple sources, and as a consequence, information in this document may materially change the coding, format and clinical context of patient data. In addition, data may be omitted in some cases. CLINICAL DECISIONS SHOULD BE BASED ON THE PRIMARY CLINICAL RECORDS. [facility]. provides no warranty or guarantee of the accuracy or completeness of information in this document.
--- NOTE | 2023-04-06 22:21 | XR_ITS ---
The [address] [address] Patient Name: LAWSON LOPEZ MRN: [id number] date: 1980 Sex: M Assigned Patient Location: ER Current Patient Location: ER Accession/Order Number: [id number] Exam Date: 04/06/2023 23:08 Report Date: 04/07/2023 00:13 At the request of: ENRIQUE DOUGHERTY Procedure: XR chest 2V EXAMINATION: XR chest 2V HISTORY: shortness of breath COMPARISON: CT chest 01/16/2023. Chest radiograph 09/04/2022 FINDINGS: Patchy airspace opacity right lung base. Blunting left costophrenic angle. No pneumothorax. No pulmonary edema. Heart size appear within normal limits. XR/XR chest 2V IMPRESSION: New blunting of the left costophrenic angle which could represent small pleural effusion or atelectasis/pneumonia. There is also new patchy right basilar airspace opacity, which could be atelectasis or pneumonia. Electronically authenticated by: MARCELA RENO Date: 04/07/2023 00:13
--- NOTE | 2023-04-06 22:21 | ECG_ITS ---
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
[2023-04-06 22:34] LABS: Adenovirus NOT DETECTED (NOT DETECTE); Bordetella parapertussis NOT DETECTED (NOT DETECTE); Coronavirus 229E NOT DETECTED (NOT DETECTE); Coronavirus HKU1 NOT DETECTED (NOT DETECTE); Coronavirus NL63 NOT DETECTED (NOT DETECTE); Coronavirus OC43 NOT DETECTED (NOT DETECTE); Human Metapneumovirus NOT DETECTED (NOT DETECTE); Human Rhinovirus/Enterovirus NOT DETECTED (NOT DETECTE); Influenza B NOT DETECTED (NOT DETECTE); Mycoplasma pneumoniae NOT DETECTED (NOT DETECTE); Parainfluenza Virus 1 NOT DETECTED (NOT DETECTE); Parainfluenza Virus 2 NOT DETECTED (NOT DETECTE); Parainfluenza Virus 3 NOT DETECTED (NOT DETECTE); Parainfluenza Virus 4 NOT DETECTED (NOT DETECTE); Respiratory Syncytial Virus NOT DETECTED (NOT DETECTE); SARS-CoV-2 NOT DETECTED (NOT DETECTE)
[2023-04-06 22:38] LABS: Basophils Absolute Auto 0.1 10^3/uL (0.0-0.1); Basophils Percent Auto 0.6 % (0.2-2.0); Eosinophils Absolute Auto 0.1 10^3/uL (0.0-0.7); Eosinophils Percent Auto 1.1 % (0.9-7.0); Hematocrit 41.2 % (42.0-54.0); Hemoglobin 13.8 g/dL (14.0-18.0); Immature Granulocytes Abs Auto 0.04 10^3/uL (0.00-0.03); Immature Granulocytes Pct Auto 0.4 % (0.0-0.5); Lymphocytes Absolute Auto 0.6 10^3/uL (1.2-3.8); Lymphocytes Percent Auto 5.5 % (20.5-60.0); Mean Corpuscular HGB Conc 33.5 g/dL (29.9-35.2); Mean Corpuscular Hemoglobin 30.4 pg (25.9-34.0); Mean Corpuscular Volume 90.7 fL (80.0-94.0); Mean Platelet Volume 9.8 fL (9.5-13.5); Monocytes Absolute Auto 1.2 10^3/uL (0.3-0.8); Monocytes Percent Auto 11.3 % (1.7-12.0); Neutrophils Absolute Auto 8.2 10^3/uL (1.4-6.5); Neutrophils Percent Auto 81.1 % (43.0-75.0); Platelet Count 198 10^3/uL (150-450); Red Blood Count 4.54 10^6/uL (4.70-6.10); Red Cell Distribution Width 12.7 % (11.0-15.0); White Blood Count 10.2 10^3/uL (4.0-11.0)
[2023-04-06 22:55] LABS: Anion Gap 13.1; BUN Creatinine Ratio 6.4; Calcium 8.8 mg/dL (8.5-10.1); Carbon Dioxide 27.8 mmol/L (21.0-32.0); Chloride 101 mmol/L (98-107); Estimated GFR (African America >60 (>=60); Estimated GFR (Non-African Ame 55 (>=60); Glucose 130 mg/dL (74-106); Potassium 3.9 mmol/L (3.5-5.1); Sodium 138 mmol/L (136-145); Troponin I High Sensitivity 21.9 pg/mL (4.0-76.1)
[2023-04-06 23:26] LABS: Influenza A\\H1-2009 DETECTED
[2023-04-06] MEDS: IBUPROFEN 600 MG TABLET PO (23:37)
[2023-04-07] VITALS (15 sets, daily range): BP systolic 118–151; BP diastolic 80–95; PULSE 105–134; RESP 13–24; O2SAT 89–95
--- NOTE | 2023-04-07 01:43 | ED.GENADUL1 ---
HPI - General Adult General Chief complaint: Shortness of Breath/Dyspnea Stated complaint: Shortness of breath vomitting Time Seen by Provider: 04/06/23 22:15 Source: patient Mode of arrival: walk-in History of Present Illness HPI narrative: 43-year-old male to emergency Department with chief complaint of Cough, sore throat, nasal discharge, Body aches, shortness of breath. Symptoms began three days ago. His has similar symptoms. He denies any chest pain. Reports decreased intake. Related Data Home Medications Medication Instructions Recorded Confirmed ketorolac 10 mg tablet 10 mg PO Q8H PRN pain 01/16/23 01/16/23 orphenadrine citrate 100 mg 100 mg PO BID PRN pain 01/16/23 01/16/23 tablet,extended release Previous Rx's Medication Instructions Recorded amlodipine 10 mg tablet 10 mg PO DAILY #30 tabs 09/06/22 aspirin 81 mg chewable tablet 81 mg PO DAILY #30 tabs 09/06/22 atorvastatin 40 mg tablet (Lipitor) 40 mg PO DAILY #30 tabs 09/06/22 metoprolol tartrate 50 mg tablet 25 mg (1/2 x 50 mg) PO BID #30 tabs 09/06/22 (Lopressor) acetaminophen 300 mg-codeine 30 mg 1 tab PO Q6H PRN pain 5 days #20 12/28/22 tablet tabs ibuprofen 800 mg tablet 800 mg PO Q8H PRN pain #20 tabs 12/28/22 utxwibokydbzxxp-fscoreskdpjiqax-LZ 5 ml PO Q4H PRN cold symptoms #118 04/07/23 2 mg-30 mg-10 mg/5 mL oral syrup mL (Bromfed DM) doxycycline monohydrate 100 mg 100 mg PO BID 7 days #14 caps 04/07/23 capsule ondansetron 4 mg disintegrating 4 mg PO Q8H PRN nausea and 04/07/23 tablet vomiting 4 days #16 tabs Allergies Allergy/AdvReac Type Severity Reaction Status Date / Time amoxicillin Allergy Verified 09/04/22 22:06 prednisone Allergy Verified 09/04/22 22:06 narcotic AdvReac Severe Uncoded 09/04/22 23:14 Review of Systems ROS Status of ROS 10 or more systems reviewed and unremarkable except as noted in history and below [facility] Medical History (Updated 04/07/23 @ 02:17 by Juan Loja MD) Syncope and collapse ?R55 - Syncope and collapse (ICD-10) Tobacco abuse ?Z72.0 - Tobacco use (ICD-10) Dyslipidemia ?E78.5 - Hyperlipidemia, unspecified (ICD-10) HTN (hypertension) ?I10 - Essential (primary) hypertension (ICD-10) Social History (Updated 09/05/22 @ 12:28 by STEVEN FLORES) Smoking status: Former smoker Non-prescribed substance use: former substance user Non-prescribed substance use details: cocaine Exam Narrative Exam Narrative: VITALS: I have reviewed the triage vital signs. GENERAL: Well developed, well appearing adult in no acute distress. NEURO: Alert and oriented. Moves all extremities. Face is symmetric and expressive. EYES: PERRL. No scleral icterus or conjunctival injection. No discharge. HENT: Normocephalic, atraumatic. Hearing is grossly intact. Nares grossly patent and without discharge. Mucous membranes moist. NECK: No JVD. Patient moves neck without restriction. CARDIO: Rhythm regular. Tachycardic. No murmur, rub, or gallop. Pulses equal bilaterally in the upper and lower extremity. No lower extremity edema. PULM: Lungs clear to auscultation in all byrd. No wheezes, rales, or rhonchi. No conversational dyspnea. No splinting, stridor, or accessory muscle use. GI/: Abdomen is soft and non-tender. Normoactive bowel sounds. EXTREMITIES: Symmetric muscle bulk. No joint swelling. No clubbing, cyanosis, or deformity. SKIN: Warm and dry. Normal turgor. No rash or lesions appreciated. PSYCH: Mood, affect, and interaction is appropriate to the setting. Constitutional Vital Signs, click to edit/add: Last Vital Signs Temp 102.8 F H 04/06/23 22:12 Pulse 112 H 04/07/23 02:20 Resp 18 04/07/23 02:20 BP 138/84 04/07/23 01:30 Pulse Ox 92 L 04/07/23 02:20 O2 Del Method Room Air 04/06/23 22:12 Course Vital Signs Vital signs: Vital Signs Temperature 102.8 F H 04/06/23 22:12 Pulse Rate 132 H 04/06/23 22:12 Respiratory Rate 20 04/06/23 22:12 Blood Pressure 152/102 H 04/06/23 22:12 Pulse Oximetry 97 04/06/23 22:12 Oxygen Delivery Method Room Air 04/06/23 22:12 Temperature 102.8 F H 04/06/23 22:12 Pulse Rate 112 H 04/07/23 02:20 Respiratory Rate 18 04/07/23 02:20 Blood Pressure 138/84 04/07/23 01:30 Pulse Oximetry 92 L 04/07/23 02:20 Oxygen Delivery Method Room Air 04/06/23 22:12 Medical Decision Making MDM Narrative Medical decision making narrative: 43-year-old male to the emergency Department chief complaint of flulike symptoms. Tachycardic, otherwise stable vitals. The patient does have a fever. Basic labs, chest x-ray are ordered. Respiratory panel is ordered. Patient agrees with this plan. CBC without acute abnormality. Chemistry does show an acute kidney injury with a mildly elevated creatinine 1.4. His normal troponin. Chest x-ray with some trace infiltrates. EKG without evidence of ischemia or arrhythmia. Normal QTC. Respiratory panel was positive for influenza A. The patient is outside of Tamiflu window. It was her pulse ox was performed and there is no desaturation. Vital signs improved significantly. The patient and his told me they are beyond ready for discharge home. He is prescribed amoxicillin infiltrates on his x-ray in case this is a secondary pneumonia. He is prescribed Zofran for his nausea. He is prescribed Bromfed for symptoms. He'll take Tylenol and ibuprofen at home for his fever and bodyaches. Return precautions are discussed. All questions were answered. The patient was discharged home. Medical Records Medical records reviewed: Yes I reviewed the patient's medical records Lab Data Lab results reviewed: Yes I reviewed the patient's lab results Labs: Lab Results 04/06/23 04/06/23 Range/Units 22:29 22:30 WBC 10.2 (4.0-11.0) 10^3/uL RBC 4.54 L (4.70-6.10) 10^6/uL Hgb 13.8 L (14.0-18.0) g/dL Hct 41.2 L (42.0-54.0) % MCV 90.7 (80.0-94.0) fL MCH 30.4 (25.9-34.0) pg MCHC 33.5 (29.9-35.2) g/dL RDW 12.7 (11.0-15.0) % Plt Count 198 (150-450) 10^3/uL MPV 9.8 (9.5-13.5) fL Neut % (Auto) 81.1 H (43.0-75.0) % Lymph % (Auto) 5.5 L (20.5-60.0) % [place] % (Auto) 11.3 (1.7-12.0) % Eos % (Auto) 1.1 (0.9-7.0) % Baso % (Auto) 0.6 (0.2-2.0) % Neut # (Auto) 8.2 H (1.4-6.5) 10^3/uL Lymph # (Auto) 0.6 L (1.2-3.8) 10^3/uL [place] # (Auto) 1.2 H (0.3-0.8) 10^3/uL Eos # (Auto) 0.1 (0.0-0.7) 10^3/uL Baso # (Auto) 0.1 (0.0-0.1) 10^3/uL Abs Immat Gran (auto) 0.04 H (0.00-0.03) 10^3/uL Imm/Tot Granulo (auto) 0.4 (0.0-0.5) % Sodium 138 (136-145) mmol/L Potassium 3.9 (3.5-5.1) mmol/L Chloride 101 (98-107) mmol/L Carbon Dioxide 27.8 (21.0-32.0) mmol/L Anion Gap 13.1 BUN 9.0 (7.0-18.0) mg/dL Creatinine 1.40 H (0.70-1.30) mg/dL Est GFR ( Amer) >60 (>=60) Est GFR (Non-Af Amer) 55 L (>=60) BUN/Creatinine Ratio 6.4 Glucose 130 H (74-106) mg/dL Calcium 8.8 (8.5-10.1) mg/dL Troponin I High Sens 21.9 (4.0-76.1) pg/mL Adenovirus (PCR) Not detected (NOT DETECTE) C. pneumoniae DNA (PCR) Not detected (NOT DETECTE) Coronavirus Type OC43 Not detected (NOT DETECTE) Coronavirus Type HKU1 Not detected (NOT DETECTE) Coronavirus Type 229E Not detected (NOT DETECTE) Coronavirus Type NL63 Not detected (NOT DETECTE) Human Metapneumovir PCR Not detected (NOT DETECTE) Influ A (H1N1/09) PCR Detected M. pneumoniae (PCR) Not detected (NOT DETECTE) Parainfluenza PCR Not detected (NOT DETECTE) Parainfluenza 2 (PCR) Not detected (NOT DETECTE) Parainfluenza 3 (PCR) Not detected (NOT DETECTE) Parainfluenza 4 (PCR) Not detected (NOT DETECTE) RSV (RT-PCR) Not detected (NOT DETECTE) Entero/Rhino (PCR) Not detected (NOT DETECTE) SARS-CoV-2 (PCR) Not detected (NOT DETECTE) Bordetella pertussis (PCR) Not detected (NOT DETECTE) B parapertussis DNA PCR Not detected (NOT DETECTE) Influenza Type B (PCR) Not detected (NOT DETECTE) Imaging Data Chest x-ray: Attestation: I have reviewed the pertinent imaging results. Radiologist's impression: ITS Impressions Chest X-Ray 04/06/23 22:21 IMPRESSION: New blunting of the left costophrenic angle which could represent small pleural effusion or atelectasis/pneumonia. There is also new patchy right basilar airspace opacity, which could be atelectasis or pneumonia. Electronically authenticated by: MARCELA RENO Date: 04/07/2023 00:13 ECG Data Attestation: ?I have reviewed the pertinent ECG results. Discharge Plan Discharge Chief Complaint: Shortness of Breath/Dyspnea Clinical Impression: Influenza A (H1N1), Pneumonia, Dehydration Patient Disposition: Home, Self-Care Time of Disposition Decision: 02:17 Condition: Good Mode of Transportation: Private Vehicle Prescriptions / Home Meds: New ycyjzmumlqherkb-vxutsxadk-MI [Bromfed DM] 2-30-10 mg/5 mL syrup 5 ml PO Q4H PRN (Reason: cold symptoms) Qty: 118 0RF doxycycline monohydrate 100 mg capsule 100 mg PO BID 7 Days Qty: 14 0RF ondansetron 4 mg tablet,disintegrating 4 mg PO Q8H PRN (Reason: nausea and vomiting) 4 Days Qty: 16 0RF No Action aspirin 81 mg tablet,chewable 81 mg PO DAILY Qty: 30 0RF amlodipine 10 mg tablet 10 mg PO DAILY Qty: 30 0RF metoprolol tartrate [Lopressor] 50 mg tablet 25 mg PO BID Qty: 30 0RF atorvastatin [Lipitor] 40 mg tablet 40 mg PO DAILY Qty: 30 0RF ibuprofen 800 mg tablet 800 mg PO Q8H PRN (Reason: pain) Qty: 20 0RF acetaminophen-codeine 300-30 mg tablet 1 tab PO Q6H PRN (Reason: pain) 5 Days Qty: 20 0RF ketorolac 10 mg tablet 10 mg PO Q8H PRN (Reason: pain) orphenadrine citrate 100 mg tablet extended release 100 mg PO BID PRN (Reason: pain) Print Language: [place] Instructions: Dehydration (ED), Influenza (ED), Community Acquired Pneumonia (ED) Stand Alone Forms: Portal Instructions Referrals: ELIAS DUKES [Primary Care Provider] - As soon as possible (Return to the Emergency Department with any new or worsening symptoms. Take medications as prescribed.)
--- NOTE | 2023-04-07 02:11 | PC.NURSE ---
Ambulated patient in estrada. patient pulse ox remain above 93%.
[2023-04-07] MEDS: 0.9 % SODIUM CHLORIDE 1,000 ML 999 ML IV (02:26)
== END 2023-04-07 02:34 | disposition home or self-care (01) ==
PROVIDERS: Emergency Provider Student in an Organized Health Care Education/Training Program; PCP Nurse Practitioner
DX: J10.00 Influenza due to other identified influenza virus with unspecified type of pneumonia (principal); E86.0 Dehydration; Z87.891 Personal history of nicotine dependence; E78.5 Hyperlipidemia, unspecified; I10 Essential (primary) hypertension; Z79.82 Long term (current) use of aspirin; Z79.899 Other long term (current) drug therapy; Z20.822 Contact with and (suspected) exposure to COVID-19
CPT/HCPCS: 0202U; 36415; 71046; 80048; 84484; 85025; 93005; 99285

== ENCOUNTER 2023-06-20 07:03 | Emergency (ER) | payer SELFPAY ==
[2023-06-20 07:08] VITALS: BP 161/115; PULSE 98; TEMP 36.6; O2SAT 96; BMI 45.6
--- OUTSIDE RECORDS SUMMARY | 2023-06-20 07:17 | XMS_ITS | CCD ---
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 Name Role Phone Unavailable Primary Care Provider UnavailCarina Thompson Primary Care Provider [phone] Unavailable Primary Care Provider UnavailSTEVEN Gutierrez Attending Unavailable NO FAMILY, PHYSICIAN Primary Care Provider Unava ilARSALAN Hurtado Emergency Provider Alfie, [facility] Jenelle E Emergency Provider MEENAKSHI Schmidt Emergency Provider [phone] NO FAMILY, PHYSICIAN Primary Care Provider Unava ilARSALAN Hurtado Emergency Provider [phone] [facility], [facility] Jenelle E Emergency Provider MEENAKSHI Schmidt Emergency Provider REQUEST, NONE LISTED Primary Care Unavaila ble KIM, KATE Admitting Unavailable KATE ALVAREZ Attending Unavailable KATE ALVAREZ Consulting Unavailable AMAN PURCELL Consulting Unavailable REQUEST, NONE LISTED Primary Care Unavaila ble JESUS ., JOSEFINA Admitting Unavailable DEVAN LOPEZID Attending Unavailable JOHANNY PINEDO Consulting Unavailabl e James Johnston Consulting Unavailable NO FAMILY, PHYSICIAN Primary Care Provider Unava ilable DO Kris Morlaes Emergency Provider MARIEL Rodas Primary Care Provider MD Socorro Osullivan Emergency Provider [phone] Bull[place], Jenelle E Admitting Unavailable Bullimore, Jenelle E Attending Unavailable NO FAMILY, PHYSICIAN Primary Care Unavailable NO FAMILY, PHYSICIAN Primary Care Unavailable Tiki Schmidt Admitting Unavailable Tiki Schmidt Attending Unavailable Kris Morales Admitting Unavailable Kris [...] Translations: [AMOXICILLIN] Drug Allergy 6 Unknown Reaction [place], [place] (5 sources) fentaNYL; Translations: [FENTANYL] Drug Allergy 9 [place] (10 sources) predniSONE; Translations: [PREDNISONE] Drug Allergy 6 Other (See Comments) [place] (1 source) Amoxicillin Drug Allergy 3 [facility] (1 source) predniSONE Drug Allergy 3 [facility] (1 source) Amoxicillin Drug Allergy 3 [facility] (1 source) predniSONE Drug Allergy 3 [facility] (1 source) amLODIPine; Translations: [AMLODIPINE] Drug Allergy 3 [facility] Repository Medications Current Medications Medication Drug Class(es) [...] Metoprolol Succinate Active 50 MG PO Daily October 11, 2022 12:00am naproxen 500 mg oral tablet (3 [...] cost is very similar. Help! Thanks. Normal [facility] CBCon 11-17-2022 Erythrocyte distribution width (RBC) [Ratio] 12.9 % Normal 11.5-15.0 [facility] Comment on above: Performed By: #### L [id number] ####[facility] (BEAKER)[address] [place] [address] ERYTHROCYTE MEAN CORPUSCULAR HEMOGLOBIN CONCENTRATION (G/DL) BY AUTOMATED 34.2 g/dL Normal 32.0-35.0 [facility] Comment on above: Performed By: #### L [id number] ####[facility] (BEAKER)[address] [place] [address] Hematocrit (Bld) [Volume fraction] 43.6 % Normal 39.0-55.0 [facility] Comment on above: Performed By: #### L [id number] ####[facility] (BEAKER)[address] [place] [address] Hemoglobin (Bld) [Mass/Vol] 14.9 g/dL Normal 13.0-17.0 [facility] Comment on above: Performed By: #### L [id number] ####[facility] (BEAKER)[address] [place] [address] MCH (RBC) [Entitic mass] 30.2 pg Normal 27.0-33.0 [facility] Comment on above: Performed By: #### L [id number] ####[facility] ([facility])[address] [place] [address] MCV (RBC) [Entitic vol] 88.4 fL Normal 82.0-98.0 [facility] Comment on above: Performed By: #### L [id number] ####[facility] ([facility])[address] [place] [address] PLATELETS (10*3/UL) IN BLOOD AUTOMATED COUNT 237 10*3/uL Normal 150-400 [facility] Comment on above: Performed By: #### L [id number] ####[facility] ([facility])[address] [place] [address] RBC (Bld) [#/Vol] 4.93 10*6/uL Normal 4.20-5.70 [facility] Comment on above: Performed By: #### L [id number] ####[facility] ([facility])[address] [place] [address] WBC (Bld) [#/Vol] 10.15 10*3/uL Normal 4.00-10.60 [facility] Comment on above: Performed By: #### L [id number] ####[facility] ([facility])[address] [place] [address] HPon 11-17-2022 HP H&P reviewed. The patient [...] consent was signed prior to the procedure. Normal [facility] HP H&P reviewed. The patient was examined and there are no changes to the H&P. Rafat Michelle MD, MPH, FACC, [facility], [facility] Interventional Cardiology Pager Email: [email or web address] Corina 11-17-2022 KOKO RN educated pt on d/c instructions. RN encouraged pt to voice any questions or concerns. Pt verbalizes no questions or concerns at this time. Pt was wheeled off of unit with all of belongings. [facility] Orders Onlyon 11-09-2022 Orders Only [id number] Lawson Cavanaugh 1980 M Date Provider Department Center 11/09/2022 PIERRE ROCHE [facility] [place] [facility] Family History Problem Relation Age of Onset Coronary artery disease Mother's Brother Peripheral vascular disease Mother's Brother Family Status - Relation Status Age at Mother's Brother [facility] HPon 10-31-2022 [facility] Cardiology Clinic Note Chief Complaint: Patient here for follow up [facility] for chest pain. He was seen as inpatient consult by Melania Alarcon CNP. Had inpatient stress test. HPI: Lawson Cavanaugh is a 42 y.o. male seen by Melania Rossa as an inpatient consult 09/05/2022 for chest [...] or two Further recommendations pending the above Rafat Michelle MD, MPH, FACC, [facility], [facility] Interventional Cardiology Pager Email: [email or web address] Normal [facility] Office Visiton 10-31-2022 Follow-up visit [id number] Lawson Cavanaugh 1980 M Date Provider Department Center 10/31/2022 Davie-RAFAT MICHELLE Family History Problem Relation Age of Onset Coronary artery disease Mother's Brother Peripheral vascular disease Mother's Brother Family Status - Relation Status Age at Mother's Brother Level of Service:60176 MA OFFICE/OUTPATIENT ESTABLISHED HIGH MDM 40-54 MIN Normal [facility] Orders Onlyon 10-31-2022 Orders Only [id number] Lawson Cavanaugh 1980 M Date Provider Department Center 10/31/2022 TAE BENÍTEZ CINDY Sin Family History Problem Relation Age of Onset Coronary artery disease Mother's Brother Peripheral vascular disease Mother's Brother Family Status - Relation Status Age at Mother's Brother Normal [facility] Activated partial thrombopla stin time (aPTT) in platelet poor plasma by coagulation aOrdered By: Socorro Osullivan on 10-11-2022 aPTT Coag (PPP) [Time] 27.7 s 25.1-36.5 [facility] B-Type Natriuretic Peptideon 10-11-2022 Natriuretic peptide B (Bld) [Mass/Vol] 21.0 pg/mL Normal 5-100 [facility] Comment on above: Result Comment: PERF ORMED BY: [facility] [address] [facility] [place] [address] PATHOLOGIST FITNESS SERVICES MANAGER BRICE STEPHEN M.D. Performed By: #### B MP, HS TROP, CBC, PT, BNP, CK, PTT #### [facility] [address] Basic Metabolic Panelon Anion gap [Moles/Vol] 10.7 mmol/L Normal 6.0-15.0 [facility] Comment on above: Performed By: #### B MP, HS TROP, CBC, PT, BNP, CK, PTT ####[facility] [address] [place] [address] [place] Calcium [Mass/Vol] 9.5 mg/dL Normal 8.6-10.3 [facility] Comment on above: Performed By: #### B MP, HS TROP, CBC, PT, BNP, CK, PTT ####[place] [id number] [place] [id number] [facility] Chloride [Moles/Vol] 102 mmol/L Normal 98-107 [facility] Comment on above: Performed By: #### B MP, HS TROP, CBC, PT, BNP, CK, PTT ####[place] [address] [place] [id number] [facility] CO2 [Moles/Vol] 29.1 mmol/L Normal 21.0-31.0 [facility] Comment on above: Performed By: #### B MP, HS TROP, CBC, PT, BNP, CK, PTT ####[place] [address] [place] [phone] [facility] Creatinine [Mass/Vol] 0.79 mg/dL Normal 0.70-1.30 [facility] Comment on above: Performed By: #### B MP, HS TROP, CBC, PT, BNP, CK, PTT ####[place] [address] Creatinine Clr Calc Pharmacy 158.41 [facility] Comment on above: Result Comment: PERF ORMED BY: [facility] [address] [place] [address] PATHOLOGIST FITNESS SERVICES MANAGER BRICE STEPHEN M.D. Performed By: #### B MP, HS TROP, CBC, PT, BNP, CK, PTT ####[place] [id number] [facility] GFR/1.73 sq M.predicted MDRD (S/P/Bld) [Vol rate/Area] mL/min/{1.73_m2} [facility] Comment on above: Performed By: #### B MP, HS TROP, CBC, PT, BNP, CK, PTT ####[place] [address] [place] [phone] [facility] Glucose [Mass/Vol] 90 mg/dL Normal 70-100 [facility] Comment on above: Result Comment: [place] Glucose Reference Range is dependent on time and content of last meal. Glucose of more than 200 mg/dL in a nonstressed, ambulatory subject supports the diagnosis of Diabetes Mellitus. ADA recommended reference range Performed By: #### B MP, HS TROP, CBC, PT, BNP, CK, PTT ####[place] [address] Potassium [Moles/Vol] 3.8 mmol/L Normal 3.5-5.1 [facility] Comment on above: Performed By: #### B MP, HS TROP, CBC, PT, BNP, CK, PTT ####[place] [address] Sodium [Moles/Vol] 138 mmol/L Normal 136-145 [facility] Comment on above: Performed By: #### B MP, HS TROP, CBC, PT, BNP, CK, PTT ####[place] [address] Urea nitrogen [Mass/Vol] 11 mg/dL Normal 7-25 [facility] Comment on above: Performed By: #### B MP, HS TROP, CBC, PT, BNP, CK, PTT ####[address] Basophils Auto (Bld) [#/Vol] Ordered By: Socorro Osullivan on 10-11-2022 Basophils (Bld) [#/Vol] 0.1 10*3/uL 0.0-0.2 [facility] Basophils/100 WBC Auto (Bld) Ordered By: Socorro Osullivan on 10-11-2022 Basophils/100 WBC (Bld) 0.9 % . [facility] Calcium [Mass/volume] in Ser um or PlasmaOrdered By: Socorro Osullivan on 10-11-2022 Calcium [Mass/Vol] 9.5 mg/dL 8.6-10.3 [facility] Carbon dioxide, total [Moles /volume] in Serum or PlasmaOrdered By: Socorro Osullivan on 10-11-2022 CO2 [Moles/Vol] 29.1 mmol/L 21.0-31.0 [facility] Chloride [Moles/volume] in S josselin or PlasmaOrdered By: Socorro Osullivan on 10-11-2022 Chloride [Moles/Vol] 102 mmol/L 98-107 [facility] Complete Blood Count Auto Di ffon 10-11-2022 Basophils (Bld) [#/Vol] 0.1 10*3/uL Normal 0.0-0.2 [facility] Comment on above: Result Comment: PERF ORMED BY: [place] [address] PATHOLOGIST FITNESS SERVICES MANAGER BRICE STEPHEN M.D. Performed By: #### B MP, HS TROP, CBC, PT, BNP, CK, PTT #### [address] Basophils/100 WBC (Bld) 0.9 % Normal . [facility] Comment on above: Performed By: #### B MP, HS TROP, CBC, PT, BNP, CK, PTT #### [address] Eosinophils (Bld) [#/Vol] 0.2 10*3/uL Normal 0.0-0.45 [facility] Comment on above: Performed By: #### B MP, HS TROP, CBC, PT, BNP, CK, PTT #### [address] Eosinophils/100 WBC (Bld) 2.5 % Normal . [facility] Comment on above: Performed By: #### B MP, HS TROP, CBC, PT, BNP, CK, PTT #### [address] Erythrocyte distribution width (RBC) [Ratio] 13.3 % Normal 12.0-14.8 [facility] Comment on above: Performed By: #### B MP, HS TROP, CBC, PT, BNP, CK, PTT #### [address] Hematocrit (Bld) [Volume fraction] 40.4 % Normal 38.8-50.0 [facility] Comment on above: Performed By: #### B MP, HS TROP, CBC, PT, BNP, CK, PTT #### [address] Hemoglobin (Bld) [Mass/Vol] 14.2 g/dL Normal 13.0-17.0 [facility] Comment on above: Performed By: #### B MP, HS TROP, CBC, PT, BNP, CK, PTT #### [address] Lymphocytes (Bld) [#/Vol] 1.8 10*3/uL Normal 1.00-4.8 [facility] Comment on above: Performed By: #### B MP, HS TROP, CBC, PT, BNP, CK, PTT #### [address] Lymphocytes/100 WBC (Bld) 18.6 % Normal . [facility] Comment on above: Performed By: #### B MP, HS TROP, CBC, PT, BNP, CK, PTT #### [address] MCH (RBC) [Entitic mass] 30.4 pg Normal 27.5-35.2 [facility] Comment on above: Performed By: #### B MP, HS TROP, CBC, PT, BNP, CK, PTT #### [address] MCV (RBC) [Entitic vol] 86.6 fL Normal 83.5-101 [facility] Comment on above: Performed By: #### B MP, HS TROP, CBC, PT, BNP, CK, PTT #### [address] Mean Corpuscular HGB Conc 35.1 g/dL Normal 32.5-35.6 [facility] Comment on above: Performed By: #### B MP, HS TROP, CBC, PT, BNP, CK, PTT #### [address] Monocytes (Bld) [#/Vol] 0.7 10*3/uL Normal 0.0-0.8 [facility] Comment on above: Performed By: #### B MP, HS TROP, CBC, PT, BNP, CK, PTT #### [place] [address] [place] Monocytes/100 WBC (Bld) 18.08 % Normal 0.00-20.00 [facility] Comment on above: Performed By: #### B MP, HS TROP, CBC, PT, BNP, CK, PTT #### [address] Monocytes/100 WBC (Bld) 7.2 % Normal . [facility] Comment on above: Performed By: #### B MP, HS TROP, CBC, PT, BNP, CK, PTT #### [address] Neutrophils (Bld) [#/Vol] 6.7 10*3/uL Normal 1.8-7.7 [facility] Comment on above: Performed By: #### B MP, HS TROP, CBC, PT, BNP, CK, PTT #### [address] Neutrophils/100 WBC (Bld) 70.8 % Normal . [facility] Comment on above: Performed By: #### B MP, HS TROP, CBC, PT, BNP, CK, PTT #### [address] NRBC% 0.2 /100{WBC} Normal 0-0.5 [facility] Comment on above: Performed By: #### B MP, HS TROP, CBC, PT, BNP, CK, PTT #### [place] [address] [place] Platelet mean volume (Bld) [Entitic vol] 8.0 fL Normal 6.6-10.1 [facility] Comment on above: Performed By: #### B MP, HS TROP, CBC, PT, BNP, CK, PTT #### [place] [address] [place] Platelets (Bld) [#/Vol] 218 10*3/uL Normal 150-450 [facility] Comment on above: Performed By: #### B MP, HS TROP, CBC, PT, BNP, CK, PTT #### [facility] [address] RBC (Bld) [#/Vol] 4.67 10*6/uL Normal 3.90-5.60 [facility] Comment on above: Performed By: #### B MP, HS TROP, CBC, PT, BNP, CK, PTT #### [facility] [address] WBC (Bld) [#/Vol] 9.5 10*3/uL Normal 4.1-10.5 [facility] Comment on above: Performed By: #### B MP, HS TROP, CBC, PT, BNP, CK, PTT #### [facility] [address] Creatine Kinaseon 10-11-2022 CK [Catalytic activity/Vol] 87 U/L Normal 30-223 [facility] Comment on above: Performed By: #### B MP, HS TROP, CBC, PT, BNP, CK, PTT ####[facility] [id number] Creatine kinase [Enzymatic a ctivity/volume] in Serum or PlasmaOrdered By: Socorro Osullivan on 10-11-2022 CK [Catalytic activity/Vol] 87 U/L 30-223 [facility] Creatinine [Mass/volume] in Serum or PlasmaOrdered By: Socorro Osullivan on 10-11-2022 Creatinine [Mass/Vol] 0.79 mg/dL 0.70-1.30 [facility] ECG 12 lead ECGon 10-11-2022 ECG 12 lead ECG [facility] Main [place] [address] [place] [address] Electrocardiograph Report Signed Patient: Lawson Cavanaugh MR#: [id number] 168 : 1980 Acct:[id number] Age/Sex: 42 / M ADM Date: 10/11/22 Loc: ER Room: Type: [facility] ER Attending Dr: Ordering Provider: Socorro Osullivan [...] was found Confirmed by MARCELA MARTINEZ DO ([id number]) on 10/11/2022 4:18:13 PM Referred By: Electronically Signed By:MARCELA MARTINEZ DO Transcribed By: MUS Signed By Marcela Martinez DO 10/11 1618 Normal [facility] Eosinophils Auto (Bld) [#/Vo l]Ordered By: Socorro Osullivan on 10-11-2022 Eosinophils (Bld) [#/Vol] 0.2 10*3/uL 0.0-0.45 [facility] Eosinophils/100 WBC Auto (Bl d)Ordered By: Socorro Osullivan on 10-11-2022 Eosinophils/100 WBC (Bld) 2.5 % . [facility] Erythrocyte distribution wid th Auto (RBC) [Ratio]Ordered By: Socorro Osullivan on 10-11-2022 Erythrocyte distribution width (RBC) [Ratio] 13.3 % 12.0-14.8 [facility] Glucose [Mass/volume] in Ser um or PlasmaOrdered By: Socorro Osullivan on 10-11-2022 Glucose [Mass/Vol] 90 mg/dL 70-100 [facility] Comment on above: ADA recommended refe rence rangeRandom Glucose Reference Range is dependent on time and content of last meal. Glucose of more than 200 mg/dL in a nonstressed, ambulatory subject supports the diagnosis of Diabetes Mellitus. Hematocrit Auto (Bld) [Volum e fraction]Ordered By: Socorro Osullivan on 10-11-2022 Hematocrit (Bld) [Volume fraction] 40.4 % 38.8-50.0 [facility] Hemoglobin [Mass/volume] in BloodOrdered By: Socorro Osullivan on 10-11-2022 Hemoglobin (Bld) [Mass/Vol] 14.2 g/dL 13.0-17.0 [facility] Ionized Calciumon 10-11-2022 Ionized Calcium 4.8 mg/dL Normal 4.5-5.6 [facility] Comment on above: Result Comment: Perf ormed at: CB - [facility] [address] [id number] Family Coach: Willi Chester PhD, Phone: [phone] PERFORMED BY: [facility] [address] [place] [address] PATHOLOGIST FITNESS SERVICES MANAGER BRICE STEPHEN M.D. Performed By: #### C AION #### [facility] , Laboratory - CoagulationOrde red By: Socorro Osullivan on 10-11-2022 PT Coag (PPP) [Time] 12.0 s 9.0-12.9 [facility] Leukocytes [#/volume] correc giselle for nucleated erythrocytes in Blood by Automated counOrdered By: Socorro Osullivan on 10-11-2022 WBC corrected for nucl RBC Auto (Bld) [#/Vol] 9.5 10*3/uL 4.1-10.5 [facility] Lymphocytes Auto (Bld) [#/Vo l]Ordered By: Socorro Osullivan on 10-11-2022 Lymphocytes (Bld) [#/Vol] 1.8 10*3/uL 1.00-4.8 [facility] Lymphocytes/100 WBC Auto (Bl d)Ordered By: Socorro Osullivan on 10-11-2022 Lymphocytes/100 WBC (Bld) 18.6 % . [facility] MCH Auto (RBC) [Entitic mass ]Ordered By: Socorro Osullivan on 10-11-2022 MCH (RBC) [Entitic mass] 30.4 pg 27.5-35.2 [facility] MCHC Auto (RBC) [Mass/Vol]Or dered By: Socorro Osullivan on 10-11-2022 MCHC (RBC) [Mass/Vol] 35.1 g/dL 32.5-35.6 [facility] MCV Auto (RBC) [Entitic vol] Ordered By: Socorro Osullivan on 10-11-2022 MCV (RBC) [Entitic vol] 86.6 fL 83.5-101 [facility] Monocyte distribution width [Entitic volume] in Blood by AutomatedOrdered By: Socorro Osullivan on 10-11-2022 Monocyte distribution width Auto (Bld) [Entitic vol] 18.08 % 0.00-20.00 [facility] Monocytes Auto (Bld) [#/Vol] Ordered By: Socorro Osullivan on 10-11-2022 Monocytes (Bld) [#/Vol] 0.7 10*3/uL 0.0-0.8 [facility] Monocytes/100 WBC Auto (Bld) Ordered By: Socorro Osullivan on 10-11-2022 Monocytes/100 WBC (Bld) 7.2 % . [facility] Natriuretic peptide B [Mass/ Vol]Ordered By: Socorro Osullivan on 10-11-2022 Natriuretic peptide B (Bld) [Mass/Vol] 21.0 pg/mL 5-100 [facility] Neutrophils Auto (Bld) [#/Vo l]Ordered By: Socorro Osullivan on 10-11-2022 Neutrophils (Bld) [#/Vol] 6.7 10*3/uL 1.8-7.7 [facility] Neutrophils/100 WBC Auto (Bl d)Ordered By: Socorro Osullivan on 10-11-2022 Neutrophils/100 WBC (Bld) 70.8 % . [facility] No Panel InformationOrdered By: Socorro Osullivan on 10-11-2022 Estimated GFR (CKD-EPI) > 60.0 mL/Min [facility] Creatinine Clearance (Chem 158.41 [facility] Nucleated erythrocytes [Pres ence] in Blood by Automated countOrdered By: Socorro Osullivan on 10-11-2022 Nucleated RBC Auto Ql (Bld) 0.2 /100{WBC} 0-0.5 [facility] Partial Thromboplastin Timeo n 10-11-2022 aPTT Coag (Bld) [Time] 27.7 s Normal 25.1-36.5 [facility] Comment on above: Result Comment: PERF ORMED BY: [facility] [address] [place] [address] PATHOLOGIST FITNESS SERVICES MANAGER BRICE STEPHEN M.D. Performed By: #### B MP, HS TROP, CBC, PT, BNP, CK, PTT #### [facility] [address] Platelet mean volume Auto (B ld) [Entitic vol]Ordered By: Socorro Osullivan on 10-11-2022 Platelet mean volume (Bld) [Entitic vol] 8.0 fL 6.6-10.1 [facility] Platelet poor plasma interna tional normalized ratio (INR) by coagulation assay (relatOrdered By: Socorro Osullivan on 10-11-2022 INR Coag (PPP) [Relative time] 1.0 {INR} [facility] Comment on above: INR Therapeutic [...] 10-11-2022 Platelets (Bld) [#/Vol] 218 10*3/uL 150-450 [facility] Potassium [Moles/volume] in Serum or PlasmaOrdered By: Scoorro Osullivan on 10-11-2022 Potassium [Moles/Vol] 3.8 mmol/L 3.5-5.1 [facility] Prothrombin Time INRon 10-11 INR Coag (PPP) [Relative time] 1.0 {INR} Normal [facility] Comment on above: Result Comment: [...] TROP, CBC, PT, BNP, CK, PTT #### [facility] [address] PT Coag (PPP) [Time] 12.0 s Normal 9.0-12.9 [facility] Comment on above: Performed By: #### B MP, HS TROP, CBC, PT, BNP, CK, PTT #### [facility] [address] RBC Auto (Bld) [#/Vol]Ordere d By: Socorro Osullivan on 10-11-2022 RBC (Bld) [#/Vol] 4.67 10*6/uL 3.90-5.60 [facility] Serum or plasma anion gap de terminationOrdered By: Socorro Osullivan on 10-11-2022 Anion gap [Moles/Vol] 10.7 mmol/L 6.0-15.0 [facility] Sodium [Moles/volume] in Ser um or PlasmaOrdered By: Socorro Osullivan on 10-11-2022 Sodium [Moles/Vol] 138 mmol/L 136-145 [facility] Troponin I High Sensitivityo n 10-11-2022 Troponin I High Sensitivity 6.3 pg/mL Normal 0.0-20.0 [facility] Comment on above: Result Comment: PERF ORMED BY: [place] [address] PATHOLOGIST FITNESS SERVICES MANAGER BRICE STEPHEN M.D. Performed By: #### B MP, HS TROP, CBC, PT, BNP, CK, PTT ####[id number] Troponin I.cardiac [Mass/vol ume] in Serum or Plasma by Detection limit <= 0.01 ng/Ordered By: Socorro Osullivan on 10-11-2022 Troponin I.cardiac DL <= 0.01 ng/mL [Mass/Vol] 6.3 pg/mL 0.0-20.0 [facility] Urea nitrogen [Mass/volume] in Serum or PlasmaOrdered By: Socorro Osullivan on 10-11-2022 Urea nitrogen [Mass/Vol] 11 mg/dL 7-25 [facility] WBC Auto (Bld) [#/Vol]Ordere d By: Socorro Osullivan on 10-11-2022 WBC (Bld) [#/Vol] 9.5 10*3/uL 4.1-10.5 [facility] XR chest 2V*on 10-11-2022 XR chest 2V* [facility] Main [address] [address] XRay Report Signed Patient: Lawson Cavanaugh MR#: [id number] 168 : 1980 Acct:[id number] Age/Sex: 42 / M ADM Date: 10/11/22 [...] ABNORMALITY. Impression dictated by: Wayne Anguiano Jr., D.O.10/11/2022 1:17 PM Dictation Location: [place] [address] Transcribed By: [facility] 10/11/221316 Dictated By: Wayne Anguiano Jr, DO 10/11/227 Signed By: 10/11/22 1317 Normal [facility] CT head/brain wo conon 08-18 CT head/brain wo con [facility] Main [address] [address] [address] Scan Report Signed Patient: Lawson Cavanaugh MR#: [id number] 168 : 1980 Acct:[id number] Age/Sex: 42 / M ADM Date: 08/18/22 [...] Tejinder Alcantara M.D.08/18/2022 12:43 PM Dictation Location: [place] [address] Transcribed By: [facility] 08/18/22 1243 Dictated By: Tejinder Alcantara DO 08/18/22 1242 Signed By: 08/18/22 124 [facility] ECG 12 lead ECGon 08-18-2022 ECG 12 lead ECG [facility] [place] [address] Electrocardiograph Report Signed Patient: Lawson Cavanaugh MR#: [id number] 168 : 1980 Acct:[id number] Age/Sex: 42 / M ADM Date: 08/18/22 Loc: ER Room: Type: [facility] ER Attending Dr: Ordering Provider: Kris Morales [...] ECGs available Confirmed by Kris MORALES DO ([id number]) on 08/18/2022 1:47:48 PM Referred By: Electronically Signed By:Kris MORALES DO Transcribed By: MUS Signed By Kris Morales DO 0 08/18/22 1347 [facility] BNPon 05-16-2022 Natriuretic peptide B (Bld) [Mass/Vol] 51.0 pg/mL Normal <=450.0 [facility] Comment on above: Performed By: #### B ESME ORTEGA, BMP #### [facility] [address] [place] [address] Dr. Divina Patino CARDIAC DAT 3-6on 3 CK [Catalytic activity/Vol] 43 U/L Normal 39-308 [facility] Comment on above: Performed By: #### L ACT #### [facility] [address] [place] [address] Dr. Divina Patino HSTROP 10.6 pg/mL Normal 4.0-76.1 [facility] Comment on above: Result Comment: CUT- OFF POINTS HAVE BEEN ESTABLISHED BASED ON THE FOURTH UNIVERSAL DEFINITIONS OF MYOCARDIAL INFARCTION. THE UPPER REFERENCE LIMIT (URL) OF TROPONIN, DEFINED THE 99TH PERCENTILE OF cTnI DISTRIBUTION IN A REFERENCE POPULATION, HAS BEEN CONFIRMED THE DECISION THRESHOLD FOR MA DIAGNOSIS. Performed By: #### L ACT #### [facility] [address] [place] [address] Dr. Divina Patino CARDIAC DAT ADMITon 023 CK [Catalytic activity/Vol] 44 U/L Normal 39-308 [facility] Comment on above: Performed By: #### B ESME ORTEGA, BMP #### [facility] [address] [place] [address] Dr. Divina Patino CK.MB [Mass/Vol] ng/mL Normal <=3.60 [facility] Comment on above: Performed By: #### B INSURANCE COUNSELOR, ESME, BMP #### [facility] [address] [place] [address] Dr. Divina Patino HSTROP 9.9 pg/mL Normal 4.0-76.1 [facility] Comment on above: Result Comment: CUT- OFF POINTS HAVE BEEN ESTABLISHED BASED ON THE FOURTH UNIVERSAL DEFINITIONS OF MYOCARDIAL INFARCTION. THE UPPER REFERENCE LIMIT (URL) OF TROPONIN, DEFINED THE 99TH PERCENTILE OF cTnI DISTRIBUTION IN A REFERENCE POPULATION, HAS BEEN CONFIRMED THE DECISION THRESHOLD FOR MA DIAGNOSIS. Performed By: #### B INSURANCE COUNSELOR, ESME, BMP #### [facility] [address] [place] [address] Dr. Divina Patino CIELO 21 ng/mL Normal 16-96 [facility] Comment on above: Performed By: #### B INSURANCE COUNSELOR, CMADM, BMP #### [facility] [address] [place] [address] Dr. Divina Patino CBC AUTO DIFFon 05-16-2022 BASO # 0.1 103/ul Normal 0.0-0.1 [facility] Comment on above: Performed By: #### C BC #### [facility] [address] [place] [address] Dr. Divina Patino Basophils/100 WBC (Bld) 0.6 % Normal 0.2-2.0 [facility] Comment on above: Performed By: #### C BC #### [facility] [address] [place] [address] Dr. Divina Patino EO # 0.3 103/ul Normal 0.0-0.7 [facility] Comment on above: Performed By: #### C BC #### [facility] [address] [place] [address] Dr. Divina Patino Eosinophils/100 WBC (Bld) 2.3 % Normal 0.9-7.0 [facility] Comment on above: Performed By: #### C BC #### [facility] [address] [place] [address] Dr. Divina Patino Erythrocyte distribution width (RBC) [Ratio] 12.3 % Normal 11.0-15.0 [facility] Comment on above: Performed By: #### C BC #### [facility] [address] [place] [address] Dr. Divina Patino Hematocrit (Bld) [Volume fraction] 41.6 % Critically low 42.0-54.0 [facility] Comment on above: Performed By: #### C BC #### [facility] [address] [place] [address] Dr. Divina Patino Hemoglobin (Bld) [Mass/Vol] 14.6 g/dL Normal 14.0-18.0 [facility] Comment on above: Performed By: #### C BC #### [facility] [address] [address] [address] Divina Patino IG # 0.12 10e3/ul Critically high 0.00-0.03 [facility] Comment on above: Performed By: #### C BC #### [facility] [address] [address] [address] Divina Patino IG % 1.0 % Critically high 0.0-0.5 [facility] Comment on above: Performed By: #### C BC #### [facility] [address] [address] [address] Divina Patino LYMPH # 2.7 103/ul Normal 1.2-3.8 [facility] Comment on above: Performed By: #### C BC #### [facility] [address] [place] [address] Dr. Divina Patino Lymphocytes/100 WBC (Bld) 23.0 % Normal 20.5-60.0 [facility] Comment on above: Performed By: #### C BC #### [facility] [address] [place] [address] Dr. Divina Patino MANUAL DIFF REQ NO Normal [facility] Comment on above: Performed By: #### C BC #### [facility] [address] [place] [address] Dr. Divina Patino MCH (RBC) [Entitic mass] 30.0 pg Normal 25.9-34.0 [facility] Comment on above: Performed By: #### C BC #### [facility] [address] [place] [address] Dr. Divina Patino MCHC (RBC) [Mass/Vol] 35.1 g/dL Normal 29.9-35.2 [facility] Comment on above: Performed By: #### C BC #### [facility] [address] [place] [address] Dr. Divina Patino MCV (RBC) [Entitic vol] 85.6 fL Normal 80.0-94.0 [facility] Comment on above: Performed By: #### C BC #### [facility] [address] [address] [address] Divina Patino MONO # 1.0 103/ul Critically high 0.3-0.8 [facility] Comment on above: Performed By: #### C BC #### [facility] [address] [place] [address] Dr. Divina Patino Monocytes/100 WBC (Bld) 8.6 % Normal 1.7-12.0 [facility] Comment on above: Performed By: #### C BC #### [facility] [address] [place] [address] Dr. Divina Patino NEUT # 7.4 103/ul Critically high 1.4-6.5 [facility] Comment on above: Performed By: #### C BC #### [facility] [address] [place] [address] Dr. Divina Patino Neutrophils/100 WBC (Bld) 64.5 % Normal 43.0-75.0 [facility] Comment on above: Performed By: #### C BC #### [facility] [address] [place] [address] Dr. Divina Patino Platelet mean volume (Bld) [Entitic vol] 9.9 fL Normal 9.5-13.5 [facility] Comment on above: Performed By: #### C BC #### [facility] [address] [place] [address] Dr. Divina Patino PLT 231 103/ul Normal 150-450 [facility] Comment on above: Performed By: #### C BC #### [facility] [address] [place] [address] Dr. Divina Patino RBC 4.86 106/ul Normal 4.70-6.10 [facility] Comment on above: Performed By: #### C BC #### [facility] [address] [place], [place] [id number] Dr. Divina Patino WBC 11.5 103/ul Critically high 4.0-11.0 [facility] Comment on above: Performed By: #### C BC #### [facility] [address] [place] [address] Dr. Divina Patino D-DIMERon 03-06-2023 D-DIMER 0.19 mg/L FEU Normal <=0.59 [facility] Comment on above: Performed By: #### D DIM #### [facility] [address] [place] [address] Dr. Divina Patino D-DIMER COMMENTS SEE BELOW Normal [facility] Comment on above: Result Comment: Incr eases [...] hospitalization. Performed By: #### D DIM #### [facility] [address] [place] [address] Dr. Divina Patino LACTATE/LACTIC ACIDon 2022 Lactate [Moles/Vol] 1.5 mmol/L Normal 0.4-1.9 [facility] Comment on above: Performed By: #### L ACT #### [facility] [address] [place] [address] Dr. Divina Paitno PROF CHEM 8 (BAS METB)on Anion gap [Moles/Vol] 13.7 mmol/L Normal [facility] Comment on above: Performed By: #### B INSURANCE COUNSELOR, CMADM, BMP #### [facility] [address] [place] [address] Dr. Divina Patino Calcium [Mass/Vol] 8.7 mg/dL Normal 8.5-10.1 [facility] Comment on above: Performed By: #### B INSURANCE COUNSELOR, CMADM, BMP #### [facility] [address] [place] [address] Dr. Divina Patino Chloride [Moles/Vol] 102 mmol/L Normal 98-107 [facility] Comment on above: Performed By: #### B INSURANCE COUNSELOR, CMADM, BMP #### [facility] [address] [address] [address] Divina Patino CO2 [Moles/Vol] 27.1 mmol/L Normal 21.0-32.0 [facility] Comment on above: Performed By: #### B INSURANCE COUNSELORESME, BMP #### [facility] [address] [address] [address] Divina Patino Creatinine [Mass/Vol] 0.85 mg/dL Normal 0.70-1.30 [facility] Comment on above: Performed By: #### B INSURANCE COUNSELORESME, BMP #### [facility] [address] [address] [address] Divina Patino EGFR-AF CITIZEN OF [place] >60 Normal >=60 [facility] Comment on above: Performed By: #### B INSURANCE COUNSELORESME, BMP #### [facility] [address] [address] [address] Divina Patino EGFR-NON AF CITIZEN OF [place] >60 Normal >=60 [facility] Comment on above: Performed By: #### B INSURANCE COUNSELORESME, BMP #### [facility] [address] [address] [address] Divina Patino Glucose [Mass/Vol] 114 mg/dL Critically high 74-106 [facility] Comment on above: Performed By: #### B INSURANCE COUNSELORESME, BMP #### [facility] [address] [address] [address] Divina Patino Potassium [Moles/Vol] 3.8 mmol/L Normal 3.5-5.1 [facility] Comment on above: Performed By: #### B INSURANCE COUNSELORESME, BMP #### [facility] [address] [address] [address] Divina Patino Sodium [Moles/Vol] 139 mmol/L Normal 136-145 [facility] Comment on above: Performed By: #### B INSURANCE COUNSELORESME, BMP #### [facility] [address] [address] [address] Divina Patino Urea nitrogen [Mass/Vol] 15.0 mg/dL Normal 7.0-18.0 [facility] Comment on above: Performed By: #### B INSURANCE COUNSELORESME, BMP #### [facility] [address] [address] [address] Divina Patino Urea nitrogen/Creatinine [Mass ratio] 17.6 mg/mg Normal [facility] Comment on above: Performed By: #### B JORDAN, ESME, BMP #### [facility] [address] [address] [address] Divina Patino XR CHEST 1 Von [...] AMAN PURCELL Date: 2022-05-15 23:20 Normal [facility] CARDIAC DAT ADMITon 023 CK [Catalytic activity/Vol] 78 U/L Normal 39-308 [facility] Comment on above: Performed By: #### L ACT #### [facility] [address] [address] [address] Divina Patino CK.MB [Mass/Vol] 1.08 ng/mL Normal <=3.60 [facility] Comment on above: Performed By: #### L ACT #### [facility] [address] [place] [address] Dr. Divina Patino HSTROP 12.2 pg/mL Normal 4.0-76.1 [facility] Comment on above: Result Comment: CUT- OFF POINTS HAVE BEEN ESTABLISHED BASED ON THE FOURTH UNIVERSAL DEFINITIONS OF MYOCARDIAL INFARCTION. THE UPPER REFERENCE LIMIT (URL) OF TROPONIN, DEFINED THE 99TH PERCENTILE OF cTnI DISTRIBUTION IN A REFERENCE POPULATION, HAS BEEN CONFIRMED THE DECISION THRESHOLD FOR MA DIAGNOSIS. Performed By: #### L ACT #### [facility] [address] [address] [address] Divina Patino CIELO 24 ng/mL Normal 16-96 [facility] Comment on above: Performed By: #### L ACT #### [facility] [address] [address] [address] Divina Patino CBC AUTO DIFFon 05-11-2022 BASO # 0.1 103/ul Normal 0.0-0.1 [facility] Comment on above: Performed By: #### L ACT #### [facility] [address] [address] [address] Divina Patino Basophils/100 WBC (Bld) 0.6 % Normal 0.2-2.0 [facility] Comment on above: Performed By: #### L ACT #### [facility] [address] [address] [address] Divina Patino EO # 0.2 103/ul Normal 0.0-0.7 [facility] Comment on above: Performed By: #### L ACT #### [facility] [address] [place] [address] Dr. Divina Patino Eosinophils/100 WBC (Bld) 2.0 % Normal 0.9-7.0 [facility] Comment on above: Performed By: #### L ACT #### [facility] [address] [address] [address] Divina Patino Erythrocyte distribution width (RBC) [Ratio] 12.4 % Normal 11.0-15.0 [facility] Comment on above: Performed By: #### L ACT #### [facility] [address] [place] [address] Dr. Divina Patino Hematocrit (Bld) [Volume fraction] 43.8 % Normal 42.0-54.0 [facility] Comment on above: Performed By: #### L ACT #### [facility] [address] [address] [address] Divina Patino Hemoglobin (Bld) [Mass/Vol] 15.3 g/dL Normal 14.0-18.0 [facility] Comment on above: Performed By: #### L ACT #### [facility] [address] [address] [address] Divina Patino IG # 0.06 10e3/ul Critically high 0.00-0.03 [facility] Comment on above: Performed By: #### L ACT #### [facility] [address] [address] [address] Divina Patino IG % 0.6 % Critically high 0.0-0.5 [facility] Comment on above: Performed By: #### L ACT #### [facility] [address] [address] [address] Divina Patino LYMPH # 2.0 103/ul Normal 1.2-3.8 [facility] Comment on above: Performed By: #### L ACT #### [facility] [address] [place] [address] Dr. Divina Patino Lymphocytes/100 WBC (Bld) 19.9 % Critically low 20.5-60.0 [facility] Comment on above: Performed By: #### L ACT #### [facility] [address] [place] [address] Dr. Divina Patino MANUAL DIFF REQ NO Normal [facility] Comment on above: Performed By: #### L ACT #### [facility] [address] [place] [address] Dr. Divina Patino MCH (RBC) [Entitic mass] 30.2 pg Normal 25.9-34.0 [facility] Comment on above: Performed By: #### L ACT #### [facility] [address] [place] [address] Dr. Divina Patino MCHC (RBC) [Mass/Vol] 34.9 g/dL Normal 29.9-35.2 [facility] Comment on above: Performed By: #### L ACT #### [facility] [address] [place] [address] Dr. Divina Patino MCV (RBC) [Entitic vol] 86.6 fL Normal 80.0-94.0 [facility] Comment on above: Performed By: #### L ACT #### [facility] [address] [place] [address] Dr. Divina Patino MONO # 0.8 103/ul Normal 0.3-0.8 [facility] Comment on above: Performed By: #### L ACT #### [facility] [address] [place] [address] Dr. Divina Patino Monocytes/100 WBC (Bld) 7.7 % Normal 1.7-12.0 [facility] Comment on above: Performed By: #### L ACT #### [facility] [address] [place] [address] Dr. Divina Patino NEUT # 7.1 103/ul Critically high 1.4-6.5 [facility] Comment on above: Performed By: #### L ACT #### [facility] [address] [place] [address] Dr. Divina Patino Neutrophils/100 WBC (Bld) 69.2 % Normal 43.0-75.0 [facility] Comment on above: Performed By: #### L ACT #### [facility] [address] [place] [address] Dr. Divina Patino Platelet mean volume (Bld) [Entitic vol] 10.3 fL Normal 9.5-13.5 [facility] Comment on above: Performed By: #### L ACT #### [facility] [address] [place] [address] Dr. Divina Patino PLT 238 103/ul Normal 150-450 [facility] Comment on above: Performed By: #### L ACT #### [facility] [address] [place] [address] Dr. Divina Patino RBC 5.06 106/ul Normal 4.70-6.10 [facility] Comment on above: Performed By: #### L ACT #### [facility] [address] [place] [address] Dr. Divina Patino WBC 10.3 103/ul Normal 4.0-11.0 [facility] Comment on above: Performed By: #### L ACT #### [facility] [address] [place] [address] Dr. Divina Patino CRPon 05-11-2022 CRP [Mass/Vol] mg/L Normal <=1.[address] [facility] Comment on above: Performed By: #### L ACT #### [facility] [address] [place] [address] HEAD WO CONon [...] JAMES JOHNSTON Date: 2022-05-11 19:47 Normal [facility] Covid-19 PCR ([facility])on SARS-CoV-2 (COVID-19) RNA JERRICA+probe Ql (Unsp spec) Not detected Normal NOT DETECTED [facility] Comment on above: Result Comment: When [...] for this test is supported by the [place] of Health and Human Service's declaration that [...] longer be used). Performed By: #### C [facility] #### [facility] [address] [place] [id number] Divina Patino INFLUENZA A AND B AGon 05-11 INFLUANEGH SEE BELOW Normal [facility] Comment on above: Result Comment: Nega tive for Flu A protein angiten. Infection due to Flu A cannot be ruled out. Flu A angiten in the sample may be below the detection limit of the test. Performed By: #### I NFLUAB #### [facility] [address] [place] [address] Dr. Divina Patino [facility] SEE BELOW Normal [facility] Comment on above: Result Comment: Nega tive for Flu B protein antigen. Infection due to Flu B cannot be ruled out. Flu B antigen in the sample may be below the detection limit of the test. Performed By: #### I NFLUAB #### [facility] [address] [place] [address] Dr. Divina Patino INFLUENZA A AG Negative Normal NEGATIVE SEE COMMENT [facility] Comment on above: Performed By: #### I NFLUAB #### [facility] [address] [place] [address] Dr. Divina Patino INFLUENZA B AG Negative Normal NEGATIVE SEE COMMENT [facility] Comment on above: Performed By: #### I NFLUAB #### [facility] [address] [place] [address] Dr. Divina Patino LACTATE/LACTIC ACIDon 2022 Lactate [Moles/Vol] 1.8 mmol/L Normal 0.4-1.9 [facility] Comment on above: Performed By: #### L ACT #### [facility] [address] [place] [address] Dr. Divina Patino MONOon 05-11-2022 Monocytes (Bld) [#/Vol] Negative Normal NEGATIVE [facility] Comment on above: Performed By: #### M LEANDRO #### [facility] [address] [place] [address] Dr. Divina Patino PROF CHEM 8 (BAS METB)on Anion gap [Moles/Vol] 12.8 mmol/L Normal [facility] Comment on above: Performed By: #### L ACT #### [facility] [address] [place] [address] Dr. Divina Patino Calcium [Mass/Vol] 9.1 mg/dL Normal 8.5-10.1 [facility] Comment on above: Performed By: #### L ACT #### [facility] [address] [address] [address] Divina Patino Chloride [Moles/Vol] 101 mmol/L Normal 98-107 [facility] Comment on above: Performed By: #### L ACT #### [facility] [address] [address] [address] Divina Patino CO2 [Moles/Vol] 26.9 mmol/L Normal 21.0-32.0 [facility] Comment on above: Performed By: #### L ACT #### [facility] [address] [address] [address] Divina Patino Creatinine [Mass/Vol] 0.90 mg/dL Normal 0.70-1.30 [facility] Comment on above: Performed By: #### L ACT #### [facility] [address] [place] [address] Dr. Divina Patino EGFR-AF CITIZEN [place] >60 Normal >=60 [facility] Comment on above: Performed By: #### L ACT #### [facility] [address] [place] [address] Dr. Divina Patino EGFR-NON AF CITIZEN OF [place] >60 Normal >=60 [facility] Comment on above: Performed By: #### L ACT #### [facility] [address] [address] [address] Divina Patino Glucose [Mass/Vol] 110 mg/dL Critically high 74-106 [facility] Comment on above: Performed By: #### L ACT #### [facility] [address] [address] [address] Divina Patino Potassium [Moles/Vol] 3.7 mmol/L Normal 3.5-5.1 [facility] Comment on above: Performed By: #### L ACT #### [facility] [address] [place] [address] Dr. Divina Patino Sodium [Moles/Vol] 137 mmol/L Normal 136-145 [facility] Comment on above: Performed By: #### L ACT #### [facility] [address] [address] [address] Divina Patino Urea nitrogen [Mass/Vol] 11.0 mg/dL Normal 7.0-18.0 [facility] Comment on above: Performed By: #### L ACT #### [facility] [address] [place] [address] Dr. Divina Patino Urea nitrogen/Creatinine [Mass ratio] 12.2 mg/mg Normal [facility] Comment on above: Performed By: #### L ACT #### [facility] [address] [place] [address] Dr. Divina Patino SED RATE NYEERGRENon 2022 SED RATE 16 mm/hr Critically high <=15 [facility] Comment on above: Performed By: #### L ACT #### [facility] [address] [place] [address] Dr. Divina Patino TSHon 05-11-2022 TSH 3.949 uIU/mL Critically high 0.358-3.740 [facility] Comment on above: Performed By: #### L ACT #### [facility] [address] [place] [address] Dr. Divina Patino XR wrist RT min 3V*on 2021 XR wrist RT min 3V* [facility] [place] [address] [place] [address] XRay Report Signed Patient: Lawson Cavanaugh MR#: [id number] : 1980 Acct:[id number] Age/Sex: 41 / M ADM Date: 12/17/21 Loc: ER Room: Type: [facility] ER Attending Dr: Copies to: GRISELDA [...] Maisha Smalls M.D.12/17/2021 10:14 AM Dictation Location: [place] [address] Transcribed By: [facility] 12/17/21 1014 Dictated By: Maisha Smalls MD 12/17/21 1013 Signed By: 12/17/21 1014 [facility] COVID-19 Antigenon 2 COVID-19 Antigen Healthcare [...] developed and its performance characteristic determined by [employer] and validated at [facility]. This test has not been [...] for SARS Antigen by [employer] PERFORMED BY: [facility] [facility] [address] [place] [address] PATHOLOGIST FITNESS SERVICES MANAGER BRICE STEPHEN M.D. [facility] Comment on above: Performed By: #### C OVID-19 NOY, SOFIANEG ####[place] [id number] [place] [phone] [facility] COVID-19 SOFIAOrdered By: Andres Elizondo on 12-02-2021 SARS-CoV+SARS-CoV-2 (COVID-19) Ag IA.rapid Ql (Resp) Negative Negative [facility] Comment on above: This is a duplicate Noy SARS Antigen (ANURAG) result to be used for statistical tracking purpose only. No Panel InformationOrdered By: Elian Elizondo on 12-02-2021 SARS Antigen (LFIA) [facility] Noy Ag Negativeon 12-03-19 Noy Ag Negative Negative Normal Negative [facility] Comment on above: Result Comment: This is a duplicate Noy SARS Antigen (ANURAG) result to be used for statistical tracking purpose only. PERFORMED BY: [place] [address] PATHOLOGIST FITNESS SERVICES MANAGER BRICE STEPHEN M.D. Performed By: #### C OVID-19 NOY, SOFIANEG ####[place] [id number] [place] [phone] [facility] XR chest 1V portableon 12-02 XR chest 1V portable [facility] Main [place] [address] [place] [address] XRay Report Signed Patient: Lawson Cavanaugh MR#: [id number] : 1980 Acct:[id number] Age/Sex: 41 / M ADM Date: 12/02/21 Loc: ER Room: Type: [facility] ER Attending Dr: Copies to: Elian [...] FINDINGS Impression dictated by: Wayne Anguiano Jr., D.ODomitila12/02/2021 3:51 PM Dictation Location: [place] [address] Transcribed By: [facility] 12/02/21 155 Dictated By: Wayne Anguiano Jr, DO 12/02/211549 Signed By: 12/02/211550 [facility] CBC with Auto Differentialon 06-08-2021 Absolute Eos # 0.11 [facility] th Absolute Immature Granulocyte 0.06 [facility] Absolute Lymph # 1.65 [facility] He alth Absolute [place] # 1.03 [facility] lth Basophils (Bld) [#/Vol] 0.07 10*3/uL [facility] Basophils/100 WBC (Bld) 1 % 0 - 2 % [facility] Eosinophils/100 WBC (Bld) 1 % 1 - 4 % [facility] Hematocrit (Bld) [Volume fraction] 47.5 % 40.7 - 50.3 % [facility] Hemoglobin.gastroint estinal spec 1 Ql (Stl) 16.3 g/dL 13.0 - 17.0 g/dL [facility] Immature granulocytes/100 WBC (Bld) 1 % High 0 [facility] Interpretation and review of laboratory results Abnormal [facility] Lymphocytes/100 WBC (Bld) 14 % Low 24 - 43 % [facility] MCH (RBC) [Entitic mass] 30.5 pg 25.2 - 33.5 pg [facility] MCHC (RBC) [Mass/Vol] 34.3 g/dL 28.4 - 34.8 g/dL [facility] MCV (RBC) [Entitic vol] 89.0 fL 82.6 - 102.9 fL [facility] Monocytes/100 WBC (Bld) 9 % 3 - 12 % [facility] NRBC Automated 0.0 0.0 per 100 WBC [facility] Platelet distribution width (Bld) [Ratio] 12.5 % 11.8 - 14.4 % [facility] Platelet mean volume (Bld) [Entitic vol] 10.8 fL 8.1 - 13.5 fL [facility] Platelets (Bld) [#/Vol] 231 10*3/uL [facility] RBC (Bld) [#/Vol] 5.34 10*6/uL 4.21 - 5.77 m/uL [facility] Segmented neutrophils/100 WBC (Bld) 74 % High 36 - 65 % [facility] Segs Absolute 9.05 High [facility] h WBC (Bld) [#/Vol] 12.0 10*3/uL High [facility] CBC with Diffon 06-08-2021 Abs. Basophil 0.07 k/uL Normal 0.00-0.[address] [facility] Comment on above: Performed By: #### C P, LIP, CDP #### [facility] [address] [place], [facility]83 Family Coach: Alex Amador MD Abs.Imm.Granulocyte 0.06 k/uL Normal 0.00-0.30 [facility] Comment on above: Performed By: #### C P, LIP, CDP #### [address] [place] [phone] Family Coach: Alex Amador MD Abs.Neutrophil (Seg) 9.05 k/uL High 1.50-8.10 [facility] Comment on above: Performed By: #### C P, LIP, CDP #### [address] [place], [facility]83 Family Coach: Alex Amador MD Basophils/100 WBC (Bld) 1 % Normal 0-2 [facility] Comment on above: Performed By: #### C P, LIP, CDP #### [address] [place], [facility]83 Family Coach: Alex Amador MD Eosinophils (Bld) [#/Vol] 0.11 10*3/uL Normal 0.00-0.44 [facility] Comment on above: Performed By: #### C P, LIP, CDP #### [facility] [address] [place] [address] Dr. [place] [phone] Family Coach: Alex Amador MD Eosinophils/100 WBC (Bld) 1 % Normal 1-4 [facility] Comment on above: Performed By: #### C P, LIP, CDP #### [address] [place] [address] Family Coach: Alex Amador MD Erythrocyte distribution width (RBC) [Ratio] 12.5 % Normal 11.8-14.4 [facility] Comment on above: Performed By: #### C P, LIP, CDP #### [facility] [address] [place] [phone] Family Coach: Alex Amador MD Hematocrit (Bld) [Volume fraction] 47.5 % Normal 40.7-50.3 [facility] Comment on above: Performed By: #### C P, LIP, CDP #### [facility] [address] [place] [address] Family Coach: Alex Amador MD Hemoglobin (Bld) [Mass/Vol] 16.3 g/dL Normal 13.0-17.0 [facility] Comment on above: Performed By: #### C P, LIP, CDP #### [facility] [address] [place] [address] Family Coach: Alex Amador MD Immature granulocytes/100 WBC (Bld) 1 % High 0 [facility] Comment on above: Performed By: #### C P, LIP, CDP #### [address] [place], [facility]83 Family Coach: Alex Amador MD Lymphocytes (Bld) [#/Vol] 1.65 10*3/uL Normal 1.10-3.70 [facility] Comment on above: Performed By: #### C P, LIP, CDP #### [facility] [address] [place], [facility]83 Family Coach: Alex Amador MD Lymphocytes/100 WBC (Bld) 14 % Low 24-43 [facility] Comment on above: Performed By: #### C P, LIP, CDP #### [facility] [address] [place] [phone] Family Coach: Alex Amador MD MCH (RBC) [Entitic mass] 30.5 pg Normal 25.2-33.5 [facility] Comment on above: Performed By: #### C P, LIP, CDP #### [facility] [address] [place], [place] [phone] Family Coach: Alex Amador MD MCHC (RBC) [Mass/Vol] 34.3 g/dL Normal 28.4-34.8 [facility] Comment on above: Performed By: #### C P, LIP, CDP #### [facility] [address] [place] [address] Family Coach: Alex Amador MD MCV (RBC) [Entitic vol] 89.0 fL Normal 82.6-102.9 [facility] Comment on above: Performed By: #### C P, LIP, CDP #### [address] [place], [place] [phone] Family Coach: Alex Amador MD Monocytes (Bld) [#/Vol] 1.03 10*3/uL Normal 0.10-1.20 [facility] Comment on above: Performed By: #### C P, LIP, CDP #### [address] [place], [place] [phone] Family Coach: Alex Amador MD Monocytes/100 WBC (Bld) 9 % Normal 3-12 [facility] Comment on above: Performed By: #### C P, LIP, CDP #### [facility] [address] [place] [address] Family Coach: Alex Amador MD Neutrophil (Seg) 74 % High 36-65 [facility] Comment on above: Performed By: #### C P, LIP, CDP #### [facility] [address] [place], [place] [phone] Family Coach: Alex Amador MD NRBC Automated 0.0 per 100 WBC Normal 0.0 [facility] Comment on above: Performed By: #### C P, LIP, CDP #### [facility] [address] [place] [address] [place], [place] [phone] Family Coach: Alex Amador MD Platelet mean volume (Bld) [Entitic vol] 10.8 fL Normal 8.1-13.5 [facility] Comment on above: Performed By: #### C P, LIP, CDP #### [address] [place], [place] [phone] Family Coach: Alex Amador MD Platelets (Bld) [#/Vol] 231 10*3/uL Normal 138-453 [facility] Comment on above: Performed By: #### C P, LIP, CDP #### [address] [place], [place] [phone] Family Coach: Alex Amador MD RBC (Bld) [#/Vol] 5.34 10*6/uL Normal 4.21-5.77 [facility] Comment on above: Performed By: #### C P LIP, CDP #### [address] [place] [address] Family Coach: Alex Amador MD WBC (Bld) [#/Vol] 12.0 10*3/uL High 3.5-11.3 [facility] Comment on above: Performed By: #### C P, LIP, CDP #### [address] [place] [address] Family Coach: Alex Amador MD CT ABDOMEN PELVIS W [...] COMPARISON: 02/05/2019 HISTORY: ORDERING SYSTEM PROVIDED HISTORY: [employer] TECHNOLOGIST PROVIDED HISTORY: [employer] Decision Support Exception - unselect if [...] Ok Rodgers MD 06/08/21 Final result Normal [facility] CT ABDOMEN PELVIS W IV CONTR AST Additional Contrast? Noneon 06-08-2021 Findings suspicious for acute enteritis. Diffuse hepatic steatosis. Nonobstructing stones in the left kidney. Normal appendix. [facility] RIS CONSOLIDATED EXAMINATION: CT OF THE ABDOMEN [...] COMPARISON: 02/05/2019 HISTORY: ORDERING SYSTEM PROVIDED HISTORY: [employer] TECHNOLOGIST PROVIDED HISTORY: [employer] Decision Support Exception - unselect if [...] aneurysm. Bones/Soft Tissues: Mild multilevel thoracolumbar spondylosis. 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 Normal appendix. [facility] Work Phone: Radiology Study observation (narrative) [facility] [employer] Phone: CT ABDOMEN PELVIS W IV CONTR AST Additional Contrast? NoneOrdered By: Ok Rodgers on 06-08-2021 [facility] Work Phone: Comp Metabolic Profon 2021 (cont.) Normal [facility] Comment on above: Result Comment: Aver age GFR for 40-49 years old: 99 mL/min/1.73sq m Chronic Kidney Disease: <60 mL/min/1.73sq m Kidney failure: <15 mL/min/1.73sq m eGFR calculated using average adult body mass. Additional eGFR calculator available at: http://www.[employer]/multiple_crcl_2011.htm Performed By: #### C P, LIP, CDP #### [facility] [address] [place] [address] [place] [address] Family Coach: Alex Amador MD Albumin [Mass/Vol] 4.6 g/dL Normal 3.5-5.2 [facility] Comment on above: Performed By: #### C P, LIP, CDP #### [address] [place] [address] Family Coach: Alex Amador MD Albumin/Glob Ratio 1.5 Normal 1.0-2.5 [facility] Comment on above: Performed By: #### C P, LIP, CDP #### [address] [place] [address] Family Coach: Alex Amador MD Alkaline Phos 90 U/L Normal 40-[address] [facility] Comment on above: Performed By: #### C P, LIP, CDP #### [facility] [address] [place] [phone] Family Coach: Alex Amador MD ALT [Catalytic activity/Vol] 37 U/L Normal 5-41 [facility] Comment on above: Performed By: #### C P, LIP, CDP #### [facility] [address] [place], [place] [phone] Family Coach: Alex Amador MD Anion gap [Moles/Vol] 10 mmol/L Normal 9-17 [facility] Comment on above: Performed By: #### C P, LIP, CDP #### [facility] [address] [place], [place] [phone] Family Coach: Alex Amador MD AST [Catalytic activity/Vol] 18 U/L Normal <40 [facility] Comment on above: Performed By: #### C P, LIP, CDP #### [facility] [address] [place], [place] [phone] Family Coach: Alex Amador MD Bilirubin [Mass/Vol] 0.83 mg/dL Normal 0.3-1.2 [facility] Comment on above: Performed By: #### C P, LIP, CDP #### [facility] [address] [place], [place] [phone] Family Coach: Alex Amador MD BUN/CRE Ratio 12 Normal 9-[address] [facility] Comment on above: Performed By: #### C P, LIP, CDP #### [facility] [address] [place], [place] [phone] Family Coach: Alex Amador MD Calcium [Mass/Vol] 9.7 mg/dL Normal 8.6-10.4 [facility] Comment on above: Performed By: #### C P, LIP, CDP #### [facility] [address] [place], [place] [phone] Family Coach: Alex Amador MD Chloride [Moles/Vol] 101 mmol/L Normal 98-107 [facility] Comment on above: Performed By: #### C P, LIP, CDP #### [facility] [address] [place], [place] [phone] Family Coach: Alex Amador MD CO2 [Moles/Vol] 29 mmol/L Normal 20-31 [facility] Comment on above: Performed By: #### C P, LIP, CDP #### [facility] [address] [place], [place] [phone] Family Coach: Alex Amador MD Creatinine [Mass/Vol] 0.83 mg/dL Normal 0.70-1.20 [facility] Comment on above: Performed By: #### C P, LIP, CDP #### [facility] [address] [place], [place] [phone] Family Coach: Alex Amador MD GFR, Amer >60 Normal >60 [facility] Comment on above: Performed By: #### C P, LIP, CDP #### [facility] [address] [place], [place] [phone] Family Coach: Alex Amador MD GFR,non Amer >60 Normal >60 [facility] Comment on above: Performed By: #### C P, LIP, CDP #### [facility] [address] [place], [place] [phone] Family Coach: Alex Amador MD Glucose [Mass/Vol] 110 mg/dL High 70-99 [facility] Comment on above: Performed By: #### C P, LIP, CDP #### [facility] [address] [place], [place] [phone] Family Coach: Alex Amador MD Potassium [Moles/Vol] 4.2 mmol/L Normal 3.7-5.3 [facility] Comment on above: Performed By: #### C P, LIP, CDP #### [facility] [address] [place] [address] Family Coach: Alex Amador MD Protein [Mass/Vol] 7.6 g/dL Normal 6.4-8.3 [facility] Comment on above: Performed By: #### C P, LIP, CDP #### [facility] [address] [place] [address] Family Coach: Alex Amador MD Sodium [Moles/Vol] 140 mmol/L Normal 135-144 [facility] Comment on above: Performed By: #### C P, LIP, CDP #### [facility] [address] [place] [address] Family Coach: Alex Amador MD Staging: Normal [facility] Comment on above: Result Comment: Stag e 1: Some kidney damage normal GFR Stage 2: Mild kidney damage GFR 60-89 Stage 3: Moderate kidney damage GFR 30-59 Stage 4: Severe kidney damage GFR 15-29 Stage 5: Severe kidney damage GFR <15 ESRD - chronic treatment by dialysis or transplant Performed By: #### C P, LIP, CDP #### [facility] [address] [place] [address] Family Coach: Alex Amador MD Urea nitrogen [Mass/Vol] 10 mg/dL Normal 6-20 [facility] Comment on above: Performed By: #### C P, LIP, CDP #### [facility] [address] [place] [address] Family Coach: Alex Amador MD Comprehensive Metabolic [facility] 06-08-2021 Albumin [Mass/Vol] 4.6 g/dL 3.5 - 5.2 g/dL [facility] Albumin/Globulin [Mass ratio] 1.5 {ratio} [facility] ALP (Bld) [Catalytic activity/Vol] 90 U/L 40 - 129 U/L [facility] ALT [Catalytic activity/Vol] 37 U/L 5 - 41 U/L [facility] Anion gap [Moles/Vol] 10 mmol/L 9 - 17 mmol/L [facility] AST [Catalytic activity/Vol] 18 U/L <40 [facility] Bilirubin [Mass/Vol] 0.83 mg/dL 0.3 - 1.2 mg/dL [facility] Calcium [Mass/Vol] 9.7 mg/dL 8.6 - 10.4 mg/dL [facility] Chloride [Moles/Vol] 101 mmol/L 98 - 107 mmol/L [facility] CO2 [Moles/Vol] 29 mmol/L 20 - 31 mmol/L [facility] Creatinine [Mass/Vol] 0.83 mg/dL 0.70 - 1.20 mg/dL [facility] Free PSA/Total PSA [Mass fraction] 7.6 g/dL 6.4 - 8.3 g/dL [facility] GFR >60 >60 mL/min [facility] GFR Non- >60 >60 mL/min [facility] Glucose [Mass/Vol] 110 mg/dL High 70 - 99 mg/dL [facility] Interpretation and review of laboratory results Abnormal [facility] Potassium [Moles/Vol] 4.2 mmol/L 3.7 - 5.3 mmol/L [facility] Sodium [Moles/Vol] 140 mmol/L 135 - 144 mmol/L [facility] Urea nitrogen (BldV) [Mass/Vol] 10 mg/dL 6 - 20 mg/dL [facility] Urea nitrogen/Creatinine (Bld) [Mass ratio] 12 [facility] Laboratory - Chemistry and C hemistry - challengeon 06-08-2021 GFR/1.73 sq M.predicted MDRD (S/P/Bld) [Vol rate/Area] [facility] Comment on above: Average GFR for 40-4 9 years old: 99 mL/min/1.73sq m Chronic Kidney Disease: <60 mL/min/1.73sq m Kidney failure: <15 mL/min/1.73sq m eGFR calculated using average adult body mass. Additional eGFR calculator available at: http://www.[employer]/multiple_crcl_2011.htm Stage 1: Some kidney damage normal GFR Stage 2: Mild kidney damage GFR 60-89 Stage 3: Moderate kidney damage GFR 30-59 Stage 4: Severe kidney damage GFR 15-29 Stage 5: Severe kidney damage GFR <15 ESRD - chronic treatment by dialysis or transplant Lactic Acidon 06-08-2021 Lactate [Moles/Vol] 2.1 mmol/L Normal 0.5-2.2 [facility] Comment on above: Performed By: #### L ACTIC #### [facility] [address] [place] [address] Family Coach: Alex Amador MD Lactate [Moles/Vol] 2.1 mmol/L 0.5 - 2.2 mmol/L [facility] Lipaseon 06-08-2021 Lipase [Catalytic activity/Vol] 30 U/L Normal 13-60 [facility] Comment on above: Performed By: #### C P, LIP, CDP #### [facility] [address] [place] [address] Family Coach: Alex Amador MD Lipase [Catalytic activity/Vol] 30 U/L 13 - 60 U/L [facility] No Panel Informationon 06-08 [facility] Basic Metabolic Panelon Anion gap [Moles/Vol] 9 mmol/L 9 - 17 mmol/L [place] Bun/Cre Ratio 12 [place] Calcium [Mass/Vol] 8.8 mg/dL 8.6 - 10.4 mg/dL [place] Chloride [Moles/Vol] 98 mmol/L 98 - 107 mmol/L [place] CO2 [Moles/Vol] 26 mmol/L 20 - 31 mmol/L [place] Creatinine [Mass/Vol] 1.04 mg/dL 0.7 - 1.2 mg/dL [place] GFR >60 >60 mL/min [place] GFR Non- >60 >60 mL/min [place] Glucose [Mass/Vol] 111 mg/dL High 70 - 99 mg/dL [place] Interpretation and review of laboratory results Abnormal [place] Potassium [Moles/Vol] 3.9 mmol/L 3.7 - 5.3 mmol/L [place] Sodium [Moles/Vol] 133 mmol/L Low 135 - 144 mmol/L [place] Urea nitrogen [Mass/Vol] 12 mg/dL 6 - 20 mg/dL [place] Brain Natriuretic Peptideon 03-19-2020 Natriuretic peptide B (Bld) [Mass/Vol] Pro-BNP Reference Range: [place] Comment on above: Rule Out: <300 Reis Zone: Age <50 300-450 Age 50-75 300-900 Age >75 300-1800 Usually represents mild to moderate HF but other cardiopulmonary causes cannot be ruled out. Rule In: Age <50 >450 Age 50-75 >900 Age >75 >1800 Natriuretic peptide B (Bld) [Mass/Vol] 60 pg/mL <300 [place] Comment on above: Pro-BNP results radha ot be compared to BNP results. CBC Auto Differentialon Basophils (Bld) [#/Vol] 0.04 10*3/uL [place] Basophils/100 WBC (Bld) 1 % 0 - 2 % [place] Differential Type NOT REPORTED [place] Eosinophils (Bld) [#/Vol] 0.04 10*3/uL [place] Eosinophils/100 WBC (Bld) 1 % 1 - 4 % [place] Erythrocyte distribution width (RBC) [Ratio] 12.5 % 11.8 - 14.4 % [place] Hematocrit (Bld) [Volume fraction] 48.2 % 40.7 - 50.3 % [place] Hemoglobin (Bld) [Mass/Vol] 16.3 g/dL 13 - 17 g/dL [place] Immature granulocytes (Bld) [#/Vol] 1 % High 0 [place] Immature granulocytes (Bld) [#/Vol] 0.07 10*3/uL [place] Interpretation and review of laboratory results Abnormal [place] Lymphocytes (Bld) [#/Vol] 1.10 10*3/uL [place] Lymphocytes/100 WBC (Bld) 13 % Low 24 - 43 % [place] MCH (RBC) [Entitic mass] 29.4 pg 25.2 - 33.5 pg [place] MCHC (RBC) [Mass/Vol] 33.8 g/dL 28.4 - 34.8 g/dL [place] MCV (RBC) [Entitic vol] 87.0 fL 82.6 - 102.9 fL [place] Monocytes (Bld) [#/Vol] 0.96 10*3/uL [place] Monocytes/100 WBC (Bld) 11 % 3 - 12 % [place] Platelet mean volume (Bld) [Entitic vol] 11.2 fL 8.1 - 13.5 fL [place] Platelets (Bld) [#/Vol] 175 10*3/uL [place] Platelets (Bld) [#/Vol] NOT REPORTED [place] RBC (Bld) [#/Vol] 5.54 10*6/uL 4.21 - 5.77 m/uL [place] RBC morphology finding Nom (Bld) NOT REPORTED [place] Segmented neutrophils/100 WBC (Bld) 73 % High 36 - 65 % [place] Segs Absolute 6.21 [place] WBC (Bld) [#/Vol] 8.4 10*3/uL [place] WBC (Bld) [#/Vol] 0.0 10*3/uL 0.0 per 100 WBC M [place] WBC Morphology NOT REPORTED [place] COVID-19, PCRon 03-19-2020 Interpretation and review of laboratory results Abnormal [place] SARS-CoV-2, Rapid DETECTED Abnormal Not Detected [place] Comment on above: Rapid NAAT: The [...] this assay. Fact sheet for Healthcare Providers: https://www.fda.gov/media/711731/download Fact sheet for Patients: https://www.fda.gov/media/862179/download Methodology: Isothermal Nucleic Acid Amplification Results reported to the appropriate Health Department Source .NASOPHARYNGEAL SWAB [place] CT CHEST PULMONARY EMBOLISM W CONTRASTon 03-19-2020 1. No pulmonary embolism. 2. Multifocal ground-glass opacities in the bilateral lungs with overall pattern of concern for underlying viral pneumonitis. 3. Hepatomegaly and diffuse steatosis in the abdomen, stable from remote imaging. [place] [facility], [facility] Incoming Radiant Results From [employer] - 03/19/2020 8:26 PM EST EXAMINATION: CTA [...] in the abdomen, stable from remote imaging. [place] EXAMINATION: CTA OF THE CHEST 03/19/2020 [...] Tissues/Bones: No skeletal abnormalities throughout the chest. [place] Lactic Acid, Plasmaon 2020 Lactate [Moles/Vol] 1.2 mmol/L 0.5 - 2.2 mmol/L [place] Lactic Acid, Whole Blood NOT REPORTED 0.7 - 2.1 mmol/L [place] Metabolic Panelon 03-19-2020 GFR/1.73 sq M predicted among non-blacks MDRD (S/P/Bld) [Vol rate/Area] [place] Comment on above: Average GFR for 40-4 9 years old: 99 mL/min/1.73sq m Chronic Kidney Disease: <60 mL/min/1.73sq m Kidney failure: <15 mL/min/1.73sq m eGFR calculated using average adult body mass. Additional eGFR calculator available at: http://www.[employer]/multiple_crcl_2012.htm Stage 1: Some kidney damage normal GFR Stage 2: Mild kidney damage GFR 60-89 Stage 3: Moderate kidney damage GFR 30-59 Stage 4: Severe kidney damage GFR 15-29 Stage 5: Severe kidney damage GFR <15 ESRD - chronic treatment by dialysis or transplant Otheron 03-19-2020 SARS-CoV-2 [place] Rapid influenza A/B antigens on 03-19-2020 Direct Exam NEGATIVE for Influenza A + B antigens. PCR testing to confirm this result is available upon request. Specimen will be saved in the laboratory for 7 days. Please call [phone] if PCR testing is indicated. [place] Special Requests NOT REPORTED [place] Specimen Description .NASOPHARYNGEAL SWAB [place] Troponinon 03-19-2020 Troponin I.cardiac [Mass/Vol] NOT REPORTED [place] Troponin T.cardiac [Mass/Vol] NOT REPORTED <0.03 ng/mL [place] Troponin, High Sensitivity 15 ng/L 0 - 22 ng/L [place] Comment on above: High Sensitivity Troponin values cannot be compared with other Troponin methodologies. Patients with high levels of Biotin oral intake (i.e >5mg/day) may have falsely decreased Troponin levels. Samples collected within 8 hours of biotin intake may require additional information for diagnosis. XR CHEST PORTABLEon 03-19-19 21 [facility], [facility] Incoming Radiant Results From [facility] - 03/19/2020 6:06 PM EST EXAMINATION: ONE XRAY VIEW OF THE CHEST 03/19/2020 5:58 pm COMPARISON: June 27, 2018 HISTORY: ORDERING SYSTEM PROVIDED HISTORY: dyspnea TECHNOLOGIST PROVIDED HISTORY: dyspnea FINDINGS: Mild edema. Heart and mediastinum normal. Bony thorax intact. IMPRESSION: Mild edema or pneumonitis [place] EXAMINATION: ONE XRAY VIEW OF THE CHEST 03/19/2020 5:58 pm COMPARISON: June 27, 2018 HISTORY: ORDERING SYSTEM PROVIDED HISTORY: dyspnea TECHNOLOGIST PROVIDED HISTORY: dyspnea FINDINGS: Mild edema. Heart and mediastinum normal. Bony thorax intact. [place] Mild edema or pneumonitis [place] Otheron 10-21-2019 No acute abnormalities seen in the left foot or left ankle [place] EXAMINATION: THREE XRAY VIEWS OF THE [...] medial malleolus most likely from old trauma. [place] [facility], [facility] Incoming Radiant Results From [facility] - 10/21/2019 4:26 PM EDT EXAMINATION: THREE [...] in the left foot or left ankle [place] Basic Metabolic Panel w/ Ref katrin to MGon 02-06-2019 Anion gap [Moles/Vol] 13 mmol/L 9 - 17 mmol/L [place] Bun/Cre Ratio 16 [place], [place] Calcium [Mass/Vol] 8.4 mg/dL Low 8.6 - 10.4 mg/dL [place] Chloride [Moles/Vol] 99 mmol/L 98 - 107 mmol/L [place] CO2 [Moles/Vol] 23 mmol/L 20 - 31 mmol/L [place] Creatinine [Mass/Vol] 0.94 mg/dL 0.7 - 1.2 mg/dL [place] GFR >60 >60 mL/min [place] GFR Non- >60 >60 mL/min [place] Glucose [Mass/Vol] 130 mg/dL High 70 - 99 mg/dL [place], [place] Interpretation and review of laboratory results Abnormal [place] Potassium [Moles/Vol] 3.7 mmol/L 3.7 - 5.3 mmol/L [place] Sodium [Moles/Vol] 135 mmol/L 135 - 144 mmol/L [place] Urea nitrogen [Mass/Vol] 15 mg/dL 6 - 20 mg/dL [place] CBCon 02-06-2019 Erythrocyte distribution width (RBC) [Ratio] 12.5 % 11.8 - 14.4 % [place] Hematocrit (Bld) [Volume fraction] 45.4 % 40.7 - 50.3 % [place] Hemoglobin (Bld) [Mass/Vol] 15.1 g/dL 13 - 17 g/dL [place] MCH (RBC) [Entitic mass] 29.8 pg 25.2 - 33.5 pg [place] MCHC (RBC) [Mass/Vol] 33.3 g/dL 28.4 - 34.8 g/dL [place] MCV (RBC) [Entitic vol] 89.5 fL 82.6 - 102.9 fL [place] Platelet mean volume (Bld) [Entitic vol] 10.4 fL 8.1 - 13.5 fL [place] Platelets (Bld) [#/Vol] 198 10*3/uL [place] RBC (Bld) [#/Vol] 5.07 10*6/uL 4.21 - 5.77 m/uL [place] WBC (Bld) [#/Vol] 0.0 10*3/uL 0.0 per 100 WBC M [place] WBC (Bld) [#/Vol] 10.7 10*3/uL [place] Culture Stoolon 02-06-2019 Campylobacter PCR NEGATIVE: No Campylobacter spp. (jejuni or coli) DNA Detected NEGATIVE: No Campylobacter spp. (jejuni or coli) DNA Detecte [place] E Coli Enterotoxigenic PCR NEGATIVE: No Enterotoxigenic E. coli (ETEC) Heat-labile and heat-stable (LT/ST) DNA Detected NEGATIVE: No Enterotoxigenic E. coli (ETEC) Heat-labile and [place] Plesiomonas Shigelloides PCR Negative NEGATIVE: No Plesionomas shigelloides DNA Detected [place] Salmonella PCR Negative NEGATIVE: No Salmonella spp. DNA Detected [place] Shigatoxin Gene PCR Negative NEGATIVE : No Shiga toxin-producing gene(s) Detected [place] Shigella Sp PCR Negative NEGATIVE: No Shigella spp. / EIEC DNA Detected [place] Specimen Description .FECES [place] Vibrio PCR NEGATIVE: No Vibrio (V. vulnificus, V, parahaemolyticus and V. cholerae) DNA Detected NEGATIVE: No Vibrio (V. vulnificus, V, parahaemolyticus and [place] Yersinia Enterocolitica PCR Negative NEGATIVE: No Yersinia enterocolitica DNA Detected [place] Metabolic Panelon 02-06-2019 GFR/1.73 sq M predicted among non-blacks MDRD (S/P/Bld) [Vol rate/Area] [place] Comment on above: Stage 1: Some [...] body mass. Additional eGFR calculator available at: http://www.[employer]/multiple_crcl_2012.htm Microscopic Urinalysison Amorphous, UA NOT REPORTED None [place] Bacteria, UA TRACE Abnormal None [place] Casts UA NOT REPORTED /LPF [place] Crystals UA NOT REPORTED None /HPF [place] Epithelial Cells UA 0 TO 2 [place] Interpretation and review of laboratory results Abnormal [place] Mucus, UA TRACE Abnormal None [place] Other Observations UA NOT REPORTED NOT REQ. [place] RBC (U) [#/Vol] 0 TO 2 [place] Renal Epithelial, Urine NOT REPORTED 0 /HPF [place] Trichomonas, UA NOT REPORTED None [facility] [place] WBC, UA None [place] Yeast, UA NOT REPORTED None [place] Urinalysis Reflex to Culture on 02-06-2019 Bilirubin Urine Negative NEGATIVE [facility] [place] Color, UA YELLOW YELLOW [place], [place] Glucose, Ur Negative NEGATIVE [place] Interpretation and review of laboratory results Abnormal [place] Ketones Ql (U) TRACE Abnormal NEGATIVE [place] Leukocyte esterase Test strip Ql (U) Negative NEGATIVE [place] Nitrite, Urine Negative NEGATIVE [place] pH, UA 5.5 [place] Protein (U) [Mass/Vol] TRACE Abnormal NEGATIVE [place] Specific [place], UA >1.030 High [place] Turbidity UA CLEAR CLEAR [place] Urinalysis Comments NOT REPORTED [place], [place] Urine Hgb 1+ Abnormal NEGATIVE [place] Urobilinogen, Urine Normal Normal [place] C DIFF TOXIN/ANTIGENon 02-05 C DIFF AG + TOXIN Negative NEGATIVE [place] Comment on above: No C. difficile anti gen and Toxin Detected. Specimen Description .FECES [place] CBCon 02-05-2019 Erythrocyte distribution width (RBC) [Ratio] 12.0 % 11.8 - 14.4 % [place] Hematocrit (Bld) [Volume fraction] 49.7 % 40.7 - 50.3 % [place] Hemoglobin (Bld) [Mass/Vol] 17.2 g/dL High 13 - 17 g/dL [place] Interpretation and review of laboratory results Abnormal [place] MCH (RBC) [Entitic mass] 30.4 pg 25.2 - 33.5 pg [place] MCHC (RBC) [Mass/Vol] 34.6 g/dL 28.4 - 34.8 g/dL [place] MCV (RBC) [Entitic vol] 87.8 fL 82.6 - 102.9 fL [place] Platelet mean volume (Bld) [Entitic vol] 10.8 fL 8.1 - 13.5 fL [place] Platelets (Bld) [#/Vol] 233 10*3/uL [place] RBC (Bld) [#/Vol] 5.66 10*6/uL 4.21 - 5.77 m/uL [place] WBC (Bld) [#/Vol] 15.0 10*3/uL [place] WBC (Bld) [#/Vol] 0.0 10*3/uL 0.0 per 100 WBC M [place] CT ABDOMEN PELVIS W IV CONTR AST Additional Contrast? Noneon 02-05-2019 Tito, Mhpn Incoming Radiant Results From [employer] - 02/05/2019 6:20 PM EST EXAMINATION: CT [...] pathologic adenopathy. Bones/Soft Tissues: Normal IMPRESSION: Ileus [place] EXAMINATION: CT OF THE ABDOMEN AND [...] is no pathologic adenopathy. Bones/Soft Tissues: Normal [place] Ileus [place] Comprehensive Metabolic Pane karan 02-05-2019 Albumin [Mass/Vol] 4.6 g/dL 3.5 - 5.2 g/dL [place] Albumin/Globulin [Mass ratio] 1.4 {ratio} [place] ALP [Catalytic activity/Vol] 88 U/L 40 - 129 U/L [place] ALT [Catalytic activity/Vol] 43 U/L High 5 - 41 U/L [place] Anion gap [Moles/Vol] 19 mmol/L High 9 - 17 mmol/L [place] AST [Catalytic activity/Vol] 23 U/L <40 [place] Bilirubin Ql (U) 1.37 mg/dL High 0.3 - 1.2 mg/dL [place], [place] Bun/Cre Ratio 16 [place], [place] Calcium [Mass/Vol] 9.4 mg/dL 8.6 - 10.4 mg/dL [place] Chloride [Moles/Vol] 96 mmol/L Low 98 - 107 mmol/L [place] CO2 [Moles/Vol] 21 mmol/L 20 - 31 mmol/L [place] Creatinine [Mass/Vol] 0.9 mg/dL 0.7 - 1.2 mg/dL [place] GFR >60 >60 mL/min [place] GFR Non- >60 >60 mL/min [place] Glucose [Mass/Vol] 119 mg/dL High 70 - 99 mg/dL [place] Interpretation and review of laboratory results Abnormal [place] Potassium [Moles/Vol] 4.2 mmol/L 3.7 - 5.3 mmol/L [place] Protein [Mass/Vol] 8.0 g/dL 6.4 - 8.3 g/dL [place] Sodium [Moles/Vol] 136 mmol/L 135 - 144 mmol/L [place] Urea nitrogen [Mass/Vol] 14 mg/dL 6 - 20 mg/dL [place] Lactic Acid, Plasmaon 2018 Interpretation and review of laboratory results Abnormal [place] Lactate [Moles/Vol] 2.4 mmol/L High 0.5 - 2.2 mmol/L [place] Lactic Acid, Whole Blood NOT REPORTED 0.7 - 2.1 mmol/L [place] Lipaseon 02-05-2019 Lipase [Catalytic activity/Vol] 32 U/L 13 - 60 U/L [place] Metabolic Panelon 02-05-2019 GFR/1.73 sq M predicted among non-blacks MDRD (S/P/Bld) [Vol rate/Area] [place] Comment on above: Average GFR for 40-4 9 years old: 99 mL/min/1.73sq m Chronic Kidney Disease: <60 mL/min/1.73sq m Kidney failure: <15 mL/min/1.73sq m eGFR calculated using average adult body mass. Additional eGFR calculator available at: http://www.[employer]/multiple_crcl_2012.htm Stage 1: Some kidney damage normal GFR Stage 2: Mild kidney damage GFR 60-89 Stage 3: Moderate kidney damage GFR 30-59 Stage 4: Severe kidney damage GFR 15-29 Stage 5: Severe kidney damage GFR <15 ESRD - chronic treatment by dialysis or transplant Vital Signs Date Time Vital Sign Value Performing Clinician Rochelle cerrato 10-11-2022 15:03-0400 Diastolic blood pressure 81 mm[Hg] PHYSICIAN NO [facility] 10-11-2022 15:03-0400 Heart rate 75 /min PHYSICIAN NO [facility] 10-11-2022 15:03-0400 Respiratory rate 20 /min PHYSICIAN NO [facility] 10-11-2022 15:03-0400 SaO2% (BldA) [Mass fraction] 97 % PHYSICIAN NO [facility] 10-11-2022 15:03-0400 Systolic blood pressure 146 mm[Hg] PHYSICIAN NO [facility] 10-11-2022 12:17-0400 Body temperature 98.3 [degF] PHYSICIAN NO [facility] 10-11-2022 12:12-0400 Body height 175.26 cm PHYSICIAN NO [facility] 10-11-2022 12:12-0400 Body weight 128.6 kg PHYSICIAN NO [facility] 08-18-2022 12:04-0400 Body temperature 97.9 [degF] PHYSICIAN NO [facility] 08-18-2022 11:58-0400 Body height 177.8 cm PHYSICIAN NO [facility] 08-18-2022 11:58-0400 Body weight 129.36 kg PHYSICIAN NO [facility] 08-18-2022 11:58-0400 Diastolic blood pressure 115 mm[Hg] PHYSICIAN NO [facility] 08-18-2022 11:58-0400 Heart rate 107 /min PHYSICIAN NO [facility] 08-18-2022 11:58-0400 Respiratory rate 20 /min PHYSICIAN NO [facility] 08-18-2022 11:58-0400 SaO2% (BldA) [Mass fraction] 97 % PHYSICIAN NO [facility] 08-18-2022 11:58-0400 Systolic blood pressure 159 mm[Hg] PHYSICIAN NO [facility] 12-19-2021 18:32-0400 Body temperature 98.1 [degF] PHYSICIAN NO [facility] 12-19-2021 18:32-0400 Diastolic blood pressure 105 mm[Hg] PHYSICIAN NO [facility] 12-19-2021 18:32-0400 Heart rate 106 /min PHYSICIAN NO [facility] 12-19-2021 18:32-0400 Respiratory rate 20 /min PHYSICIAN NO [facility] 12-19-2021 18:32-0400 SaO2% (BldA) [Mass fraction] 96 % PHYSICIAN NO [facility] 12-19-2021 18:32-0400 Systolic blood pressure 153 mm[Hg] PHYSICIAN NO [facility] 12-19-2021 17:44-0400 Body height 177.8 cm PHYSICIAN NO [facility] 12-19-2021 17:44-0400 Body weight 134.55 kg PHYSICIAN NO [facility] 12-17-2021 09:40-0400 Body height 177.8 cm PHYSICIAN NO [facility] 12-17-2021 09:40-0400 Body temperature 98.1 [degF] PHYSICIAN NO [facility] 12-17-2021 09:40-0400 Body weight 134 kg PHYSICIAN NO [facility] 12-17-2021 09:40-0400 Diastolic blood pressure 108 mm[Hg] PHYSICIAN NO [facility] 12-17-2021 09:40-0400 Heart rate 114 /min PHYSICIAN NO [facility] 12-17-2021 09:40-0400 Respiratory rate 20 /min PHYSICIAN NO [facility] 12-17-2021 09:40-0400 SaO2% (BldA) [Mass fraction] 98 % PHYSICIAN NO [facility] 12-17-2021 09:40-0400 Systolic blood pressure 171 mm[Hg] PHYSICIAN NO [facility] 12-02-2021 14:50-0400 Body height 177.8 cm PHYSICIAN NO [facility] 12-02-2021 14:50-0400 Body temperature 98.6 [degF] PHYSICIAN NO [facility] 12-02-2021 14:50-0400 Body weight 133.2 kg PHYSICIAN NO [facility] 12-02-2021 14:50-0400 Diastolic blood pressure 102 mm[Hg] PHYSICIAN NO [facility] 12-02-2021 14:50-0400 Heart rate 117 /min PHYSICIAN NO [facility] 12-02-2021 14:50-0400 Respiratory rate 18 /min PHYSICIAN NO [facility] 12-02-2021 14:50-0400 SaO2% (BldA) [Mass fraction] 98 % PHYSICIAN NO [facility] 12-02-2021 14:50-0400 Systolic blood pressure 174 mm[Hg] PHYSICIAN NO [facility] 06-08-2021 14:28-0400 Heart rate 117 /min Steven Puga APRN - BANDAR Work Phone: [facility] 06-08-2021 14:28-0400 SaO2% (BldA) [Mass fraction] 95 % Steven Puga APRN - DAIRY AND FOOD LABORATORY ASSISTANT Work Phone: [facility] 06-08-2021 14:22-0400 Body height 177.8 cm Steven Puga APRN - DAIRY AND FOOD LABORATORY ASSISTANT Work Phone: [facility] 06-08-2021 14:22-0400 Body mass index (BMI) [Ratio] 44.77 kg/m2 Steven Puga APRN - DAIRY AND FOOD LABORATORY ASSISTANT Work Phone: [facility] 06-08-2021 14:22-0400 Body temperature 98.1 [degF] Steven Puga APRN - DAIRY AND FOOD LABORATORY ASSISTANT Work Phone: [employer] [facility] 06-08-2021 14:22-0400 Body weight 141.52 kg Steven Puga APRN - DAIRY AND FOOD LABORATORY ASSISTANT Work Phone: [facility] 06-08-2021 14:22-0400 Diastolic blood pressure 120 mm[Hg] Steven Puga APRN - DAIRY AND FOOD LABORATORY ASSISTANT Work Phone: [facility] 06-08-2021 14:22-0400 Respiratory rate 18 /min Steven Puga APRN - DAIRY AND FOOD LABORATORY ASSISTANT Work Phone: [facility] 06-08-2021 14:22-0400 Systolic blood pressure 170 mm[Hg] Steven Tillman CNP Work Phone: [facility] 03-19-2020 23:45-0500 BP Diastolic 101 mm[Hg] [facility] , [place] 03-19-2020 23:45-0500 BP Systolic 148 mm[Hg] [facility] [place] , [place] 03-19-2020 23:45-0500 Pulse (Heart Rate) 117 /min [facility], [place] 03-19-2020 23:45-0500 Pulse Oximetry 94 % [facility] [place] , [place] 03-19-2020 23:45-0500 Respiratory Rate 23 /min [facility] [place] [facility], [place] 03-19-2020 19:57-0500 Body Temperature 99.9 [degF] [facility] [place] , [place] 03-19-2020 17:38-0500 BMI (Body Mass Index) 45.92 kg/m2 [facility], [place] 03-19-2020 17:38-0500 Body weight 145.15 kg [facility] , [place] 03-19-2020 17:38-0500 Height 177.8 cm [facility] , [place] 10-21-2019 17:46-0400 BP Diastolic 103 mm[Hg] [facility] [place] , [place] 10-21-2019 17:46-0400 BP Systolic 163 mm[Hg] [facility] , [place] 10-21-2019 17:37-0400 Pulse (Heart Rate) 109 /min [facility], [place] 10-21-2019 17:37-0400 Respiratory Rate 18 /min [facility] [place] , [place] 10-21-2019 16:02-0400 BMI (Body Mass Index) 44.3 kg/m2 [facility], [place] 10-21-2019 16:02-0400 Body Temperature 97 [degF] [facility] [place] , [place] 10-21-2019 16:02-0400 Body weight 136.08 kg [facility] , [place] 10-21-2019 16:02-0400 Pulse Oximetry 96 % [facility] , [place] 02-07-2019 08:18-0500 Body Temperature 97.7 [degF] Dat Jean Baptiste [facility] [place] , [place] 02-07-2019 08:18-0500 BP Diastolic 102 mm[Hg] [facility] , [place] 02-07-2019 08:18-0500 BP Systolic 132 mm[Hg] [facility] , [place] 02-07-2019 08:18-0500 Pulse (Heart Rate) 76 /min [facility] 02-07-2019 08:18-0500 Pulse Oximetry 96 % [facility] , [place] 02-07-2019 08:18-0500 Respiratory Rate 16 /min [facility], [place] 02-07-2019 04:51-0500 BMI (Body Mass Index) 42.06 kg/m2 [facility], [place] 02-07-2019 04:51-0500 Body weight 129.18 kg [facility] , [place] 02-06-2019 08:10-0500 Height 175.3 cm [facility] , [place] Encounters Encounter Date Encounter Type Care Provider Facility Start: 11-17-2022 End: 11-17-2022 ambulatory [facility] Start: 10-31-2022 End: 10-31-2022 ambulatory [facility] Start: 10-11-2022 End: 10-11-2022 Emergency department patient visit Isabel Rodas Facility:[facility] Start: 10-11-2022 End: 10-11-2022 Emergency department patient visit PHYSICIAN NO [facility] Work Phone: Start: 08-18-2022 End: 08-18-2022 Emergency department patient visit Kris Morales Facility:[facility] Start: 08-18-2022 End: 08-18-2022 Emergency department patient visit PHYSICIAN NO [facility] Work Phone: Start: 05-15-2022 End: 05-16-[address] NONE LISTED REQUEST Facility:[facility] Start: 05-11-2022 End: 05-11-[address] NONE LISTED REQUEST Facility:[facility] Start: 01-21-2022 End: 01-21-2022 ambulatory PHYSICIAN NO [facility] Work Phone: Start: 01-21-2022 End: 01-21-2022 Discharged Recurring PHYSICIAN NO [facility] [address] Start: 12-19-2021 End: 12-19-2021 Emergency department patient visit PHYSICIAN NO Facility:[facility] Start: 12-19-2021 End: 12-19-2021 Emergency department patient visit PHYSICIAN NO [facility] Start: 12-17-2021 End: 12-17-2021 Emergency department patient visit Jenelle Judge Facility:[facility] Start: 12-17-2021 End: 12-17-2021 Emergency department patient visit PHYSICIAN NO [facility] Start: 12-02-2021 End: 12-02-2021 Emergency department patient visit Elian Elizondo Facility:[facility] Start: 12-02-2021 End: 12-02-2021 Emergency department patient visit PHYSICIAN NO [facility] Start: 06-08-2021 Emergency department patient visit STEVEN PUGA [facility] Start: 06-08-2021 End: 06-08-2021 Emergency department patient visit Steven Puga COAL SHOVELER - DAIRY AND FOOD LABORATORY ASSISTANT Work Phone: [facility] ED Comment on above: Enteritis (Primary D x) Start: 03-19-2020 End: 03-20-2020 Emergency department patient visit [facility] Comment on above: COVID-19 (Primary Dx ) Start: 10-21-2019 End: 10-21-2019 Emergency department patient visit [facility] Comment on above: Left Achilles tendin itis (Primary Dx) Start: 02-05-2019 End: 02-07-2019 Evaluation and management of inpatient Dat Jean Baptiste Work Phone: [facility] Comment on above: Ileus (HCC) (Primary Dx) Procedures Date Procedure Procedure Detail Performing Clinician Start: 10-11-2022 Plain chest X-ray PHYSI FELA NO FAMILY Start: 08-18-2022 CT of head without contrast PHYSICIAN NO FAMILY Start: 12-17-2021 Plain X-ray of right wrist PHYSICIAN NO FAMILY Start: 12-02-2021 Plain chest X-ray PHYSI FELA NO FAMILY Start: 06-08-2021 Ct abdomen & pelvis w/contrast material Steven Puga COAL SHOVELER - DAIRY AND FOOD LABORATORY ASSISTANT Work Phone: Start: 06-08-2021 Comprehensive metabo lic panel Steven Puga COAL SHOVELER - DAIRY AND FOOD LABORATORY ASSISTANT Work Phone: Start: 03-19-2020 Ct thorax w/contrast material Arabella Blandon Work Phone: Start: 03-19-2020 COVID-19 Arabella he Work Phone: Start: 03-19-2020 Iaadiadoo influenza [facility] awais Blandon Work Phone: Start: 03-19-2020 Assay of lactate Arabella Blandon Work Phone: Start: 03-19-2020 Assay of troponin [...] dip stick/tabl et rgnt auto w/o microscopy Arabella Barber Work Phone: Start: 02-05-2019 Cul bact stool aerob ic isol salmonella&shigell [facility] Work Phone: Start: 02-05-2019 Toxin/antitoxin assa y tissue culture [facility] Work Phone: Start: 02-05-2019 Ct abdomen & pelvis w/contrast material Arabella Barber Work Phone: Start: 02-05-2019 Assay of lactate Arabella Barber Work Phone: Start: 02-05-2019 Assay of lipase Arabella [facility] Work Phone: Start: 02-05-2019 Blood count complete automated [facility] Work Phone: Start: 02-05-2019 Comprehensive metabo lic panel [facility] Work Phone: SARS Antigen (LFIA) PHYSICIA N NO FAMILY Plan of Treatment Date Care Activity Detail Author Start: 06-08-2022 Creatinine measurement Creatinine mo [facility] Start: 06-08-2022 Potassium monitoring Potassium monit [facility] Start: 03-19-2021 Creatinine measurement Creatinine mo [place] Start: 03-19-2021 Potassium monitoring Potassium monit [place] Start: 11-11-2020 Influenza vaccination Flu vaccine (# 1) [facility] Start: 02-07-2020 Creatinine measurement Creatinine mo [place] Start: 02-07-2020 Potassium monitoring Potassium monit [place] Start: 11-12-2019 Influenza vaccination Flu vaccine (# 1) [place] Start: 06-28-2019 Creatinine monitoring Creatinine mon [place] Start: 06-28-2019 Potassium monitoring Potassium monit [place] Start: 11-11-2018 Influenza vaccination Flu vaccine (# 1) [place] Start: 2018 Diabetes screen Diabetes screen [place] Start: 2018 Lipid panel Lipid screen [facility] Start: 2018 Lipid screen Lipid screen [facility] [place] Start: 2013 Diabetes screen Diabetes screen [facility] Start: 1997 DTaP/Tdap/Td vaccine (1 - Tdap) DTaP/Tdap/Td vaccine (1 - Tdap) [facility] Start: 1993 HIV screen HIV screen [place], [place] Start: 1993 HIV screening HIV screen [facility] Start: 1990 Depression Screen Depression Screen [facility] Start: 1989 DTaP/Tdap/Td vaccine (1 - Tdap) DTaP/Tdap/Td vaccine (1 - Tdap) [place] Start: 1983 COVID-19 Vaccine (1) COVID-19 Vaccin e (1) [facility] Start: 1978 Hepatitis C screening Hepatitis C sc reen [facility] End: 03-19-2020 Culture, Blood 1 Culture, Blood 1 Microbiology STAT One Time for 1 Occurrences starting 03/19/2020 until 03/19/2020 [place] Comment on above: One Time for 1 Occur rences starting 03/19/2020 until 03/19/2020 Culture, Blood 1 Culture, Blood 1 Microbiology STAT 03/19/2020 6:00 PM [place] EKG 12 Lead EKG 12 Lead ECG STAT 03/19/2020 5:53 PM [place] Initiate Oxygen Ther apy Protocol Initiate Oxygen Therapy Protocol Respiratory Care Routine Daily until discontinued starting 02/05/2019 [place] Comment on above: Daily until disconti nued starting 02/05/2019 Nasal Cannula Oxygen Nasal Cannu la Oxygen Respiratory Care STAT Daily until discontinued starting 03/19/2020 [place] Comment on above: Daily until disconti nued starting 03/19/2020 Patient Education [facility] Work Phone: Patient referral [facility] Work Phone: End: 02-05-2019 Pulse Oximetry Spot Check Pulse Oximetry Spot Check Respiratory Care Routine One Time for 1 Occurrences starting 02/05/2019 until 02/05/2019 [facility] Comment on above: One Time for 1 Occur rences starting 02/05/2019 until 02/05/2019 End: 06-08-2021 Urinalysis with Microscopic Urinalysis with Microscopic Lab STAT One Time for 1 Occurrences starting 06/08/2021 until 06/08/2021 [facility] Work Phone: Comment on above: One Time for 1 Occur rences starting 06/08/2021 until 06/08/2021 Payers Date Payer Category Payer Unknown [id number] [id number] [id number] 1980 Unknown [id number] [id number] [id number] 1961 Self-pay 1961 Worker's Compensation [id number] Unknown [id number] 2.16.8 [id number] Unknown [id number] 2.16.8 [id number] Unknown [id number] 2.16.8 [id number] Unknown [id number] 2.16.8 [id number] Unknown [id number] [id number] [id number] Unknown [id number] 2.16.8 [id number] Social History Date Type Detail Facility Start: 10-21-2019 End: 10-11-2022 Tobacco [facility] status [facility] Start: 04-05-2015 End: 10-21-2019 Tobacco use and exposure [facility] Start: 10-21-2019 End: 06-08-2021 Alcohol intake Current non-drinker of alcohol (finding) [place] Start: 1980 Sex Assigned At Not on file [facility] [place] Start: 05-29-2021 End: 06-08-2021 Exposure to SARS-CoV-2 (event) Not sure [facility] [place] R[place] Start: 12-02-2021 End: 12-19-2021 Tobacco smoking status NHIS Never smoked tobacco (finding) [facility] Start: 1980 Sex Assigned At Male F [facility] Clinical Notes 06-08-2021 to 02-01-2023 InstructionsAttachments Note Date & Type Note Facility 02-01-2023 Note This report has been cancelled. [facility] 02-01-2023 Note This report has been cancelled. [facility] 11-17-2022 Note Cardiovascular Labor atory Report FINAL [...] be checked in a week Follow-up with [facility] in the [place] [facility] in the next 2 to 3 months [...] left radial artery was obtained. A 6 Polish glide sheath was inserted without difficulty. Bilateral [...] INDICATIONS: Abnormal stress test, reduced ejection fraction [facility] 11-17-2022 Note Patient: Lawson stark Procedure Information Date/Time: 11/17/22 1030 Procedure: Coronary angiography (Bilateral) Location: [facility] COUNSELOR 3 / [facility] (Cath) Providers: Rafat Michelle MD Clinical information reviewed: Allergies Meds Physical Exam Airway Mallampati: III Neck ROM: full Cardiovascular Rhythm: regular Rate: normal Dental Pulmonary Breath sounds clear to auscultation Abdominal Abdomen: soft Bowel sounds: normal Anesthesia Plan ASA 3 other (Conscious Sedation ) Anesthetic plan and risks discussed with patient. Use of blood products discussed with patient who consented to blood products. Additional Equipment Requests [facility] 10-31-2022 Note [facility] Cardiology Clinic Note Chief Complaint: Patient here for follow up [facility] for chest pain. He was seen [...] or two Further recommendations pending the above Rafat Michelle MD, MPH, [facility], [facility], [facility] Interventional Cardiology Pager Email: [email or web address] 06-08-2021 Hospital Discharge instructions Steven Puga, COAL SHOVELER - DAIRY AND FOOD LABORATORY ASSISTANT - 06/08/2021 Increase your fluid intake. Take Bentyl as prescribed. Follow-up with PCP for reevaluation in the next couple of days. Avoid dairy, spicy and fatty foods for the next week. Return here for increased pain, fever, difficulty breathing, vomiting or new or worsening signs or symptoms. The following attachments cannot be sent through Care Everywhere.Gastroenteritis (Cuban)documented in this encounter [facility] Work Phone: Evaluation note Diagnosis Enteritis- Primary Other and unspecified noninfectious gastroenteritis and colitis documented in this encounter [facility] Work Phone: evaluation noteNo assessment information available [facility] Work Phone: Hospital Discharge instructions Additional Instructions Rest ice elevate Use the wrist splint for comfort Take ibuprofen every 6 hours for discomfort Follow-up with either [facility] or [facility] Follow-up with [facility] especially if not getting better [facility] Work Phone: Hospital Discharge instructions Additional Instructions Return for new or worsening symptoms [facility] Work Phone: Hospital Discharge instructions Additional Instructions Please return to emergency department for any new or worrisome symptoms including any weakness, numbness, headache, vision changes. Follow-up with your family physician as soon as possible.[facility] Work Phone: Discharge Instructions * Attachments The following attachments cannot be sent through Care Everywhere. * Tendon Injury (Tendinopathy) (Cuban) documented in this encounter* Instructions* Lobito Sidhu [...] Everywhere. * Coronavirus Disease (COVID-19): General Info (Cuban) * Coronavirus Disease (COVID-19): Isolation (Cuban) documented in this encounter* Instructions* Bambi Segal [...] Where can you learn more? Go to [email or web address] and sign in to your [employer] account. Enter M933 in the Search Health Information box to learn more about Learning About Ileus. If you do not have an account, please click on the Sign Up Now link. Current as of: January 17, 2018 Content Version: 12.1 0391-5593 [employer] Care instructions adapted under license by [facility]. If youhave questions about a medical condition or this instruction, always ask your healthcare professional. [employer] disclaims any warranty or liability for your use of this information. documented in this encounter Assessments Diagnosis Left Achilles tendinitis Achilles bursitis or tendinitis Diagnosis COVID-19- Primary Diagnosis Abdominal pain with Ileus- Primary Abdominal pain, unspecified site Ileus (HCC) Paralytic ileus Essential hypertension Unspecified essential hypertension Advance Directives No Advanced Directives Records FoundDocuments on File Type Date Recorded Patient Desk Pen Set Assembler Expl anation Advance Directives and Living Will Power of Event Planner Latest Code Status on File Code Status Date Activated Date Inactivated Comments Full Code 02/05/2019 9:40 PM 02/07/2019 3:36 PM Full Code 06/22/2016 5:58 AM 06/22/2016 7:53 PM Documents on File Type Date Recorded Patient Desk Pen Set Assembler Expl anation ACP-Advance Directive ACP-Power of Event Planner Latest Code Status on File Code Status Date Activated Date Inactivated Comments Full Code 02/05/2019 9:40 PM Advance Directive Response Recorded Date/ Time Advance Directives No November 3:14pm Advance Directive Response Recorded Date/ Time Advance Directives No November 2:14pm Hospital Course * Tal Gonzalez MD - 02/07/2019 11:47 AM EST Tal Gonzalez M.D. Internal Medicine Discharge Summary Patient ID: Lawson Cavanaugh [id number] Admission date: 02/05/2019 Discharge date: 02/07/2019 [...] but will be referred to [facility]. Discharge Exam: GEN: Awake, alert and oriented [...] Discharge Medications: Lawson Cavanaugh Home Medication Instructions [id number] Printed on:02/07/19 1147 Medication Information amLODIPine (NORVASC) 5 MG tablet Take 1 tablet by mouth daily Patient Instructions: Activity: activity as tolerated Diet: regular diet Wound Care: none needed Follow up with [facility]2 weeks CORE MEASURES on Discharge (if applicable) DORCAS/ARB in CHF: N/A ASA in MA: N/A Statin in MA: N/A Statin in CVA: N/A Antiplatelet in CVA: N/A Total time spent on discharge services: 25 minutes Including the following activities: Evaluation and Management of patient Discussion with patient and/or surrogate about current care plan Coordination with Case Management and/or Manager Of Maintenance Coordination of care with Consultants (if applicable) [...] in bed, call light in reach. Megan Cheng RN - 02/06/2019 10:56 AM EST Facsimile [...] of care. To: __Dr. Jean Baptiste From: [facility] Sender:_KSchwochowRN Phone Number:_[phone] This request is: Urgent - No Information [...] Signature Date Time * Jamir Reed MSW, FOILING MACHINE OPERATOR - 02/06/2019 10:51 AM EST Social Work intial Assessment/Discharge Plan Diagnosis: Abdominal pain with Lleus Met with: Patient PCP: None. [facility] Payment Source: Private. No insurance. Advance Directives: None Code Status: Full Mental Status: Alert and oriented Living Arrangement: Patient lives at home in [place] with a roommate Support Systems: Roommate and [...] Needs/Discharge Plan: Patient will return home to [place] where he resides with a roommate. He [...] 5. Fluid Accumulation-No significant fluid accumulation, 6. Legal Archivist Strength-Not measured Nutrition Risk Level: Moderate Nutrient Needs: Estimated Daily Total Kcal: 8030-7484(12-17) Estimated Daily Protein (g): 95-109(1.3-1.5) Estimated Daily [...] Weight Change: , 2% loss from 290# [place] Body Wt: 160 lb (72.6 kg), % [place] Body 178% BMI Classification: BMI > or [...] Patient/Family Education, Monitor Bowel Function Contact Number: [phone] Marija Horta RN - 02/06/2019 4:31 AM EST Pt ambulates around room as needed, lets needs be known, resting in bed with eyes closed and resp. Unlabored at this time Marija Horta RN - 02/06/2019 12:45 AM EST Pt sitting up in bed watching television, vitals reassessed, denies any needs at this time Marija Horta RN - 02/05/2019 7:57 PM EST Pt in room resting in bed with eyes open, saeed. Unlabored, rating pain a 5 on 0- 10 scale, assessmentcomplete, bolus running from ED orders into left AC, pt shows no s/s of distress or complications at this time, call light given and oriented to room, pr watching tv when director of materials left room documented in this encounter Summary Purpose Family History No Family History Records FoundNo Family History Records FoundNo Family History Records FoundNo Family History Records Found Chief Complaint and Reason for Visit Chief Complaint chest congestion Chief Complaint chest congestion rt wrist pain ico janelle rich Chief Complaint chest congestion rt wrist pain ico janelle rich Rt wrist pain Chief Complaint chest congestion rt wrist pain ico janelle rich Rt wrist pain rt wrist injury Chief Complaint dizzy , nausea hit h ead ico @janelle rich 08/17 numbness in hands/face Additional Source Comments Reason [...] DATE CREATED AUTHOR AUTHOR'S ORGANIZ ATION 05/17/2022 [facility] DATE CREATED AUTHOR AUTHOR'S ORGANIZ ATION 10/24/2022 [facility] DATE CREATED AUTHOR AUTHOR'S ORGANIZ ATION 03/04/2023 [facility] Care Teams (unrecognized sec tion and content) Team Status: Inactive Member Role Status Dates PHYSICIAN NO FAMILY Primary Care Provider Active Team Status: Inactive Member Role Status Dates PHYSICIAN NO FAMILY Primary Care Provider Active Tiki cShmidt PA-C Emergency Provider Active Team Status: Inactive Member Role Status Dates PHYSICIAN NO FAMILY Primary Care Provider Active VIOLETTE SerratoP-BC Emergency Provider Active Team Status: Inactive Member Role Status Dates PHYSICIAN NO FAMILY Primary Care Provider Active Elian Elizondo APRN Emergency Provider Active Team Status: Active Member Role Status Dates PHYSICIAN NO FAMILY Primary Care Provider Active Team Status: Active Member Role Status Dates Isabel Rodas INSURANCE COUNSELOR-C Primary Care Provider Active Team Status: Inactive Member Role Status Dates PHYSICIAN NO FAMILY Primary Care Provider Active Kris Morales DO Emergency Provider Active Team Status: Inactive Member Role Status Dates Isabel Rodas INSURANCE COUNSELOR-C Primary Care Provider Active Socorro Osullivan MD [...] BE BASED ON THE PRIMARY CLINICAL RECORDS. [facility] [employer] provides no warranty or guarantee of the accuracy or completeness of information in this document.
--- NOTE | 2023-06-20 07:25 | XR_ITS ---
The [address] [address] Patient Name: LAWSON LOPEZ MRN: [id number] date: 1980 Sex: M Assigned Patient Location: ER Current Patient Location: ER Accession/Order Number: [id number] Exam Date: 06/20/2023 07:20 Report Date: 06/20/2023 07:37 At the request of: KAN MERINO Procedure: XR foot LT min 3V PROCEDURE: XR foot LT min 3V HISTORY: pain ; acute posterior left foot pain; no known injury COMPARISON: None. FINDINGS: BONES:No fracture, acute abnormality, or significant arthropathy. SOFT TISSUES:Degenerative enthesopathic spurring at Achilles tendon insertion into the calcaneus. EFFUSION:None visible. OTHER: Negative. XR/XR foot LT min 3V IMPRESSION: 1. No appreciable acute abnormality. Electronically authenticated by: DUARTE JACKSON Date: 06/20/2023 07:37
--- NOTE | 2023-06-20 08:11 | ED.EXTPRO1 ---
HPI - Extremity Problem General Chief complaint: Extremity Problem, Nontraumatic Stated complaint: LOWER EXTREMITY PAIN POSSIBLE INJURY TO LEFT ANKLE Time Seen by Provider: 06/20/23 08:11 Source: patient and family Mode of arrival: Wheelchair Limitations: no limitations History of Present Illness HPI Narrative: This patient is here with pain in his left heel area. As it turns out he has had quite a bit of problems over the years with discomfort in his Achilles area. He has never really had it evaluated. He has not had any surgery. He is not had any acute change in activity level or trauma. It has exquisite discomfort with any type of dorsiflexion of that left foot. He does not have any pain in the rest of the ankle the lower leg or the knee. Related Data Home Medications ?Medication ?Instructions ?Recorded ?Confirmed ketorolac 10 mg tablet 10 mg PO Q8H PRN pain 01/16/23 01/16/23 orphenadrine citrate 100 mg 100 mg PO BID PRN pain 01/16/23 01/16/23 tablet,extended release Previous Rx's ?Medication ?Instructions ?Recorded amlodipine 10 mg tablet 10 mg PO DAILY #30 tabs 09/06/22 aspirin 81 mg chewable tablet 81 mg PO DAILY #30 tabs 09/06/22 atorvastatin 40 mg tablet (Lipitor) 40 mg PO DAILY #30 tabs 09/06/22 metoprolol tartrate 50 mg tablet 25 mg (1/2 x 50 mg) PO BID #30 tabs 09/06/22 (Lopressor) acetaminophen 300 mg-codeine 30 mg 1 tab PO Q6H PRN pain 5 days #20 12/28/22 tablet tabs ibuprofen 800 mg tablet 800 mg PO Q8H PRN pain #20 tabs 12/28/22 ruaykfxmjaemejn-jwpmaiztuylszrd-WG 5 ml PO Q4H PRN cold symptoms #118 04/07/23 2 mg-30 mg-10 mg/5 mL oral syrup mL (Bromfed DM) doxycycline monohydrate 100 mg 100 mg PO BID 7 days #14 caps 04/07/23 capsule ondansetron 4 mg disintegrating 4 mg PO Q8H PRN nausea and 04/07/23 tablet vomiting 4 days #16 tabs Allergies Allergy/AdvReac Type Severity Reaction Status Date / Time amoxicillin Allergy Verified 09/04/22 22:06 prednisone Allergy Verified 09/04/22 22:06 narcotic AdvReac Severe Uncoded 09/04/22 23:14 [facility] Medical History (Updated 06/20/23 @ 08:13 by Jatinder Najera MD) Syncope and collapse ?R55 - Syncope and collapse (ICD-10) Tobacco abuse ?Z72.0 - Tobacco use (ICD-10) Dyslipidemia ?E78.5 - Hyperlipidemia, unspecified (ICD-10) HTN (hypertension) ?I10 - Essential (primary) hypertension (ICD-10) Social History (Updated 09/05/22 @ 12:28 by STEVEN FLORES) Smoking status: Former smoker Non-prescribed substance use: former substance user Non-prescribed substance use details: cocaine Exam Narrative Exam Narrative: Problem focused examination shows well-hydrated well-nourished male. No distress when lying comfortably. Any type of dorsi flexion of the foot reproduces pain at the insertion of the Achilles tendon. There is no obvious evidence of infection there is some chronic inflammatory changes in the area and he has point tenderness directly over the calcaneus. The plantar surface of the heel is normal. The neurovascular examination the foot is otherwise unremarkable Constitutional Vital Signs, click to edit/add: Last Vital Signs Temp 97.8 F 06/20/23 07:08 Pulse 98 H 06/20/23 07:08 Resp 18 06/20/23 07:08 BP 161/115 H 06/20/23 07:08 Pulse Ox 96 06/20/23 07:08 O2 Del Method Room Air 06/20/23 07:08 Course Vital Signs Vital signs: Vital Signs Temperature 97.8 F 06/20/23 07:08 Pulse Rate 98 H 06/20/23 07:08 Respiratory Rate 18 06/20/23 07:08 Blood Pressure 161/115 H 06/20/23 07:08 Pulse Oximetry 96 06/20/23 07:08 Oxygen Delivery Method Room Air 06/20/23 07:08 Temperature 97.8 F 06/20/23 07:08 Pulse Rate 98 H 06/20/23 07:08 Respiratory Rate 18 06/20/23 07:08 Blood Pressure 161/115 H 06/20/23 07:08 Pulse Oximetry 96 06/20/23 07:08 Oxygen Delivery Method Room Air 06/20/23 07:08 MDM - Extremity (Nontraumatic) MDM Narrative Medical decision making narrative: Patient with chronic problems with his Achilles now with acute swelling and tenderness. 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 He understands this and we are going to make him an appointment Discharge Plan Discharge Stand Alone Forms: Portal Instructions Chief Complaint: Extremity Problem, Nontraumatic Clinical Impression: Achilles tendinitis Patient Disposition: Home, Self-Care Time of Disposition Decision: 08:13 Prescriptions / Home Meds: No Action aspirin 81 mg tablet,chewable 81 mg PO DAILY Qty: 30 0RF amlodipine 10 mg tablet 10 mg PO DAILY Qty: 30 0RF metoprolol tartrate [Lopressor] 50 mg tablet 25 mg PO BID Qty: 30 0RF atorvastatin [Lipitor] 40 mg tablet 40 mg PO DAILY Qty: 30 0RF ibuprofen 800 mg tablet 800 mg PO Q8H PRN (Reason: pain) Qty: 20 0RF acetaminophen-codeine 300-30 mg tablet 1 tab PO Q6H PRN (Reason: pain) 5 Days Qty: 20 0RF ketorolac 10 mg tablet 10 mg PO Q8H PRN (Reason: pain) orphenadrine citrate 100 mg tablet extended release 100 mg PO BID PRN (Reason: pain) vbleufzajvbwinn-xyrcmrgnv-TS [Bromfed DM] 2-30-10 mg/5 mL syrup 5 ml PO Q4H PRN (Reason: cold symptoms) Qty: 118 0RF doxycycline monohydrate 100 mg capsule 100 mg PO BID 7 Days Qty: 14 0RF ondansetron 4 mg tablet,disintegrating 4 mg PO Q8H PRN (Reason: nausea and vomiting) 4 Days Qty: 16 0RF Print Language: Romanian Additional Instructions: Limit weightbearing and movement till you are seen by podiatry Referrals: ELIAS DUKES [Primary Care Provider] - 1 week
== END 2023-06-20 08:24 | disposition home or self-care (01) ==
PROVIDERS: Emergency Provider Emergency Medicine Emergency Medical Services; PCP Nurse Practitioner
DX: M76.62 Achilles tendinitis, left leg (principal); E78.5 Hyperlipidemia, unspecified; I10 Essential (primary) hypertension; Z79.899 Other long term (current) drug therapy; Z79.82 Long term (current) use of aspirin; Z87.891 Personal history of nicotine dependence
CPT/HCPCS: 73630; 99283

== ENCOUNTER 2023-07-20 11:35 | Emergency (ER) | payer SELFPAY ==
[2023-07-20 11:42] VITALS: BP 148/98; PULSE 105; TEMP 36.9; O2SAT 96; BMI 44.3
--- NOTE | 2023-07-20 11:50 | XR_ITS ---
The [address] [address] Patient Name: LAWSON LOPEZ MRN: [id number] date: 1980 Sex: M Assigned Patient Location: ER Current Patient Location: ER Accession/Order Number: [id number] Exam Date: 07/20/2023 12:01 Report Date: 07/20/2023 12:23 At the request of: PEDRO CHERRY Procedure: XR shoulder LT min 2V EXAM: Left shoulder HISTORY: . Atraumatic pain, possible rotator cuff injury . COMPARISON: None. TECHNIQUE: 3 views FINDINGS: No fracture or dislocation of left shoulder is noted. Glenohumeral joint is unremarkable. Early arthritic changes of the left AC joint are noted. Surrounding soft tissues are unremarkable. XR/XR shoulder LT min 2V IMPRESSION: 1. No acute bony abnormality left shoulder. 2. Early arthritic changes of the left AC joint. Electronically authenticated by: ADELINE ALVAREZ Date: 07/20/2023 12:23
--- NOTE | 2023-07-20 11:51 | ED.UPPEXIN1 ---
HPI HPI - Extremity Injury (Upper) General Chief Complaint: Extremity Injury, Upper Stated Complaint: UPPER EXTREMITY INJURY Time Seen by Provider: 07/20/23 11:36 Source: patient Mode of arrival: walk-in Limitations: no limitations History of Present Illness HPI narrative: 43-year-old male presents to the emergency department for pain to his left shoulder. It began yesterday and was not associated with any trauma. 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 He points to the top and the posterior aspect of the shoulder to indicate the area of most pain. It does not seem to radiate and he has no neck pain. It is worse when he moves it, particularly moving his arm away from his body. Related Data Home Medications ?Medication ?Instructions ?Recorded ?Confirmed ketorolac 10 mg tablet 10 mg PO Q8H PRN pain 01/16/23 01/16/23 orphenadrine citrate 100 mg 100 mg PO BID PRN pain 01/16/23 01/16/23 tablet,extended release Previous Rx's ?Medication ?Instructions ?Recorded amlodipine 10 mg tablet 10 mg PO DAILY #30 tabs 09/06/22 aspirin 81 mg chewable tablet 81 mg PO DAILY #30 tabs 09/06/22 atorvastatin 40 mg tablet (Lipitor) 40 mg PO DAILY #30 tabs 09/06/22 metoprolol tartrate 50 mg tablet 25 mg (1/2 x 50 mg) PO BID #30 tabs 09/06/22 (Lopressor) acetaminophen 300 mg-codeine 30 mg 1 tab PO Q6H PRN pain 5 days #20 12/28/22 tablet tabs ibuprofen 800 mg tablet 800 mg PO Q8H PRN pain #20 tabs 12/28/22 kpubvhidhxwtflx-gtchaqsfsjiuppx-NU 5 ml PO Q4H PRN cold symptoms #118 04/07/23 2 mg-30 mg-10 mg/5 mL oral syrup mL (Bromfed DM) doxycycline monohydrate 100 mg 100 mg PO BID 7 days #14 caps 04/07/23 capsule ondansetron 4 mg disintegrating 4 mg PO Q8H PRN nausea and 04/07/23 tablet vomiting 4 days #16 tabs ibuprofen 800 mg tablet 800 mg PO Q8H PRN pain #20 tabs 07/20/23 Allergies Allergy/AdvReac Type Severity Reaction Status Date / Time amoxicillin Allergy Verified 09/04/22 22:06 prednisone Allergy Verified 09/04/22 22:06 narcotic AdvReac Severe Uncoded 09/04/22 23:14 Opioid HPI Opioid Management Most Recent Pain and Opioid Data: Last Pain Scale 7 07/20/23 11:47 Last ED Pain Assessment 07/20/23 11:46 Review of Systems ROS Narrative A ten point review of systems is negative except as noted above. PFSH PFS Medical History (Updated 07/20/23 @ 12:35 by Ashok Jean MD) Syncope and collapse ?R55 - Syncope and collapse (ICD-10) Tobacco abuse ?Z72.0 - Tobacco use (ICD-10) Dyslipidemia ?E78.5 - Hyperlipidemia, unspecified (ICD-10) HTN (hypertension) ?I10 - Essential (primary) hypertension (ICD-10) Social History (Updated 09/05/22 @ 12:28 by STEVEN FLORES) Smoking status: Former smoker Non-prescribed substance use: former substance user Non-prescribed substance use details: cocaine Exam Narrative Exam Narrative: Nurses note and vital signs reviewed and patient is not hypoxic. General: The patient appears well and in no apparent distress. Patient is resting comfortably on cart. Skin: Warm, dry, no pallor noted. There is no rash noted. Head: Normocephalic, atraumatic Eye: Normal conjunctiva, no drainage Ears, Nose, Mouth, and Throat: oral mucosa is moist. Nares patent. Cardiovascular: Regular Rate and Rhythm Respiratory: Patient is in no distress, no accessory muscle use, lungs are clear to auscultation, no wheezing, rales or rhonchi Back: non-tender GI: Soft and nontender Musculoskeletal: The left arm is not swollen. Radial pulse 2+ and the wrist and elbow are nontender. He is reluctant to move his shoulder. There is no bruising or rash or abrasions. He does not seem to have any palpable tenderness. Neurological: A&O, normal speech Psychiatric: Cooperative Constitutional Vital Signs, click to edit/add: Last Vital Signs Temp 98.4 F 07/20/23 11:42 Pulse 105 H 07/20/23 11:42 Resp 20 07/20/23 11:42 BP 148/98 H 07/20/23 11:42 Pulse Ox 96 07/20/23 11:42 O2 Del Method Room Air 07/20/23 11:42 Course Vital Signs Vital signs: Vital Signs Temperature 98.4 F 07/20/23 11:42 Pulse Rate 105 H 07/20/23 11:42 Respiratory Rate 20 07/20/23 11:42 Blood Pressure 148/98 H 07/20/23 11:42 Pulse Oximetry 96 07/20/23 11:42 Oxygen Delivery Method Room Air 07/20/23 11:42 Temperature 98.4 F 07/20/23 11:42 Pulse Rate 105 H 07/20/23 11:42 Respiratory Rate 20 07/20/23 11:42 Blood Pressure 148/98 H 07/20/23 11:42 Pulse Oximetry 96 07/20/23 11:42 Oxygen Delivery Method Room Air 07/20/23 11:42 MDM - Extremity Injury (Upper) MDM Narrative Medical decision making narrative: X-rays show mild degenerative changes of the acromioclavicular joint. I am suspicious of a rotator cuff injury. Sling applied, application checked by me and found to be appropriate, he is neurovascularly intact. He was instructed to use the sling for no more than 3 days and orthopedic follow-up appointment was made. Treatment diagnosis and follow-up were discussed with the patient Differential Diagnosis Differential diagnosis: Likely other (Shoulder strain, calcific tendinitis, rotator cuff injury, muscle strain) Imaging Data Shoulder x-ray: Radiologist's impression: ITS Impressions Shoulder X-Ray 07/20/23 11:50 IMPRESSION: 1. No acute bony abnormality left shoulder. 2. Early arthritic changes of the left AC joint. Electronically authenticated by: ADELINE ALVAREZ Date: 07/20/2023 12:23 Discharge Plan Discharge Stand Alone Forms: Portal Instructions Chief Complaint: Extremity Injury, Upper Clinical Impression: Acute pain of left shoulder Patient Disposition: Home, Self-Care Time of Disposition Decision: 12:35 Condition: Good Mode of Transportation: Private Vehicle Prescriptions / Home Meds: New ibuprofen 800 mg tablet 800 mg PO Q8H PRN (Reason: pain) Qty: 20 0RF No Action aspirin 81 mg tablet,chewable 81 mg PO DAILY Qty: 30 0RF amlodipine 10 mg tablet 10 mg PO DAILY Qty: 30 0RF metoprolol tartrate [Lopressor] 50 mg tablet 25 mg PO BID Qty: 30 0RF atorvastatin [Lipitor] 40 mg tablet 40 mg PO DAILY Qty: 30 0RF ibuprofen 800 mg tablet 800 mg PO Q8H PRN (Reason: pain) Qty: 20 0RF acetaminophen-codeine 300-30 mg tablet 1 tab PO Q6H PRN (Reason: pain) 5 Days Qty: 20 0RF ketorolac 10 mg tablet 10 mg PO Q8H PRN (Reason: pain) orphenadrine citrate 100 mg tablet extended release 100 mg PO BID PRN (Reason: pain) eagpfgvlgoiaeka-mmsundwvj-LH [Bromfed DM] 2-30-10 mg/5 mL syrup 5 ml PO Q4H PRN (Reason: cold symptoms) Qty: 118 0RF doxycycline monohydrate 100 mg capsule 100 mg PO BID 7 Days Qty: 14 0RF ondansetron 4 mg tablet,disintegrating 4 mg PO Q8H PRN (Reason: nausea and vomiting) 4 Days Qty: 16 0RF Print Language: Arabic Instructions: Shoulder Pain (ED) Additional Instructions: You have an appointment with Dr. Matos at 12:30 PM on Monday, July 23. Do not wear sling for more than 3 days. Referrals: ELIAS DUKES [Primary Care Provider] - 1 week
--- NOTE | 2023-07-20 12:03 | ECG_ITS ---
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
== END 2023-07-20 12:50 | disposition home or self-care (01) ==
PROVIDERS: Emergency Provider Emergency Medicine; PCP Nurse Practitioner
DX: M25.512 Pain in left shoulder (principal); I10 Essential (primary) hypertension; E78.5 Hyperlipidemia, unspecified; Z87.891 Personal history of nicotine dependence; F14.11 Cocaine abuse, in remission; Z79.899 Other long term (current) drug therapy
CPT/HCPCS: 73030; 93005; 99284

== ENCOUNTER 2023-08-05 21:01 | Emergency (ER) | payer SELFPAY ==
[2023-08-05] VITALS (12 sets, daily range): BP systolic 114–162; BP diastolic 93–110; PULSE 96–117; TEMP 36.4; O2SAT 89–98; BMI 41.8
[2023-08-05 21:17] LABS: Glucometer 114 mg/dL (74-106)
--- NOTE | 2023-08-05 21:22 | ECG_ITS ---
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1980 Requested By: Isabel Rodas Order Number: [id number] Reading MD: DAILY BRINK Measurements Intervals [place] Rate: 113 P: 69 [place]: 168 QRS: -49 QRSD: 88 T: 53 QT: 332 QTc: 399 Interpretive Statements 1120 Sinus tachycardia 1570 with occasional ventricular premature complexes 2630 Left anterior fascicular block 8003 Consistent with pulmonary disease 9150 abnormal ECG Compared to ECG 07/20/2023 12:10:03 Ventricular premature complex(es) now present Left anterior fascicular block now present Sinus rhythm no longer present Left-axis deviation no longer present Electronically Signed On 08-08-2023 8:47:58 EDT by DAILY BRINK
--- NOTE | 2023-08-05 21:22 | XR_ITS ---
[address] [address] Patient Name: LAWSON LOPEZ MRN: [id number] date: 1980 Sex: M Assigned Patient Location: ER Current Patient Location: ER Accession/Order Number: [id number] Exam Date: 08/05/2023 21:32 Report Date: 08/05/2023 22:32 At the request of: PEDRO CHERRY Procedure: XR chest 1V EXAM: XR chest 1V HISTORY: Chest pain COMPARISON: 09/04/2022 FINDINGS/IMPRESSION: 1. Lungs are clear 2. No pneumothorax. No pleural effusion. 3. Heart size and mediastinal contours are normal 4. No acute osseous abnormality Electronically authenticated by: WANDER BOGGS Date: 08/05/2023 22:32
--- NOTE | 2023-08-05 21:23 | ED.GENADUL1 ---
HPI HPI - General Adult General Chief complaint: Back Pain/Injury Stated complaint: flank pain Time Seen by Provider: 08/05/23 21:04 Source: patient Mode of arrival: walk-in Limitations: no limitations History of Present Illness HPI narrative: 43-year-old male presents for pain in the left lateral part of his lower chest. It started 2 and half hours ago while he was walking. There was no injury or stumbling. No cough or fever or vomiting. The pain does not seem to radiate and it has been continuous and it sharp and moderate. Related Data Home Medications ?Medication ?Instructions ?Recorded ?Confirmed ketorolac 10 mg tablet 10 mg PO Q8H PRN pain 01/16/23 01/16/23 orphenadrine citrate 100 mg 100 mg PO BID PRN pain 01/16/23 01/16/23 tablet,extended release Previous Rx's ?Medication ?Instructions ?Recorded amlodipine 10 mg tablet 10 mg PO DAILY #30 tabs 09/06/22 aspirin 81 mg chewable tablet 81 mg PO DAILY #30 tabs 09/06/22 atorvastatin 40 mg tablet (Lipitor) 40 mg PO DAILY #30 tabs 09/06/22 metoprolol tartrate 50 mg tablet 25 mg (1/2 x 50 mg) PO BID #30 tabs 09/06/22 (Lopressor) ibuprofen 800 mg tablet 800 mg PO Q8H PRN pain #20 tabs 12/28/22 ioebaxkkxsougtx-vbvzlbstrpreote-GM 5 ml PO Q4H PRN cold symptoms #118 04/07/23 2 mg-30 mg-10 mg/5 mL oral syrup mL (Bromfed DM) doxycycline monohydrate 100 mg 100 mg PO BID 7 days #14 caps 04/07/23 capsule ondansetron 4 mg disintegrating 4 mg PO Q8H PRN nausea and 04/07/23 tablet vomiting 4 days #16 tabs ibuprofen 800 mg tablet 800 mg PO Q8H PRN pain #20 tabs 07/20/23 Allergies Allergy/AdvReac Type Severity Reaction Status Date / Time amoxicillin Allergy Verified 08/05/23 21:09 prednisone Allergy Verified 08/05/23 21:09 narcotic AdvReac Severe Uncoded 08/05/23 21:09 Opioid HPI Opioid Management Most Recent Opioid Data: Last Pain Scale 8 08/05/23 21:46 Review of Systems ROS Narrative A ten point review of systems is negative except as noted above. [facility] Medical History (Updated 08/06/23 @ 00:13 by Ashok Jean MD) Syncope and collapse ?R55 - Syncope and collapse (ICD-10) Tobacco abuse ?Z72.0 - Tobacco use (ICD-10) Dyslipidemia ?E78.5 - Hyperlipidemia, unspecified (ICD-10) HTN (hypertension) ?I10 - Essential (primary) hypertension (ICD-10) Social History (Updated 09/05/22 @ 12:28 by STEVEN FLORES) Smoking status: Former smoker Non-prescribed substance use: former substance user Non-prescribed substance use details: cocaine Exam Narrative Exam Narrative: Nurses note and vital signs reviewed and patient is not hypoxic. General: The patient appears well and in no apparent distress. Patient is resting comfortably on cart. Skin: Warm, dry, no pallor noted. There is no rash noted. Head: Normocephalic, atraumatic Eye: Normal conjunctiva, no drainage Ears, Nose, Mouth, and Throat: oral mucosa is moist. Nares patent. Cardiovascular: Regular Rate and Rhythm, minimal tachycardia Respiratory: Patient is in no distress, no accessory muscle use, lungs are clear to auscultation, no wheezing, rales or rhonchi, palpation of the left lower lateral chest area reproduces his pain. There is no crepitus bruise or rash present. Back: non-tender GI: Soft and nontender Musculoskeletal: The patient has no evidence of calf tenderness, no pitting edema, symmetrical pulses noted bilaterally Neurological: A&O, normal speech Psychiatric: Cooperative Constitutional Vital Signs, click to edit/add: Last Vital Signs Temp 97.6 F 08/05/23 21:06 Pulse 108 H 08/05/23 23:30 Resp 26 H 08/05/23 23:30 BP 114/95 H 08/05/23 23:01 Pulse Ox 94 L 08/05/23 23:30 O2 Del Method Room Air 08/05/23 21:06 Course Vital Signs Vital signs: Vital Signs Temperature 97.6 F 08/05/23 21:06 Pulse Rate 117 H 08/05/23 21:06 Respiratory Rate 20 08/05/23 21:06 Blood Pressure 162/110 H 08/05/23 21:06 Pulse Oximetry 97 08/05/23 21:06 Oxygen Delivery Method Room Air 08/05/23 21:06 Temperature 97.6 F 08/05/23 21:06 Pulse Rate 108 H 08/05/23 23:30 Respiratory Rate 26 H 08/05/23 23:30 Blood Pressure 114/95 H 08/05/23 23:01 Pulse Oximetry 94 L 08/05/23 23:30 Oxygen Delivery Method Room Air 08/05/23 21:06 Medical Decision Making MDM Narrative Medical decision making narrative: His workup including 2 sets of troponin is negative. D-dimer is immeasurable. He has a history of narcotic abuse and is requesting no narcotics. He was recommended ibuprofen and follow-up with his doctor if symptoms persist. Treatment diagnosis and follow-up were discussed with the patient. No evidence of PE, ID, or pneumothorax. Differential Diagnosis Differential Diagnosis: PE, ID, pneumothorax, pneumonia, chest wall pain Lab Data Lab results reviewed: Yes I reviewed the patient's lab results Labs: Lab Results 08/05/23 08/05/23 08/05/23 Range/Units 21:16 21:21 23:10 WBC 11.5 H (4.0-11.0) 10^3/uL RBC 5.07 (4.70-6.10) 10^6/uL Hgb 15.4 (14.0-18.0) g/dL Hct 44.8 (42.0-54.0) % MCV 88.4 (80.0-94.0) fL MCH 30.4 (25.9-34.0) pg MCHC 34.4 (29.9-35.2) g/dL RDW 12.6 (11.0-15.0) % Plt Count 256 (150-450) 10^3/uL MPV 10.3 (9.5-13.5) fL Neut % (Auto) 68.2 (43.0-75.0) % Lymph % (Auto) 19.9 L (20.5-60.0) % [place] % (Auto) 8.8 (1.7-12.0) % Eos % (Auto) 1.9 (0.9-7.0) % Baso % (Auto) 0.6 (0.2-2.0) % Neut # (Auto) 7.9 H (1.4-6.5) 10^3/uL Lymph # (Auto) 2.3 (1.2-3.8) 10^3/uL [place] # (Auto) 1.0 H (0.3-0.8) 10^3/uL Eos # (Auto) 0.2 (0.0-0.7) 10^3/uL Baso # (Auto) 0.1 (0.0-0.1) 10^3/uL Abs Immat Gran (auto) 0.07 H (0.00-0.03) 10^3/uL Imm/Tot Granulo (auto) 0.6 H (0.0-0.5) % D-Dimer <0.19 (<=0.59) mg/L FEU Sodium 140 (136-145) mmol/L Potassium 3.8 (3.5-5.1) mmol/L Chloride 102 (98-107) mmol/L Carbon Dioxide 28.6 (21.0-32.0) mmol/L Anion Gap 13.2 BUN 15.0 (7.0-18.0) mg/dL Creatinine 1.02 (0.70-1.30) mg/dL Est GFR ( Amer) >60 (>=60) Est GFR (Non-Af Amer) >60 (>=60) BUN/Creatinine Ratio 14.7 Glucose 104 (74-106) mg/dL Calcium 9.1 (8.5-10.1) mg/dL Troponin I High Sens 16.0 (4.0-76.1) pg/mL Urine Color Yellow (YELLOW) Urine Clarity Clear (CLEAR) Urine pH 6.0 (5.0-9.0) Ur Specific [place] >=1.030 A (1.005-1.025) Urine Protein Negative (NEG/TRACE) mg/dL Urine Glucose (UA) Negative (NEGATIVE) mg/dL Urine Ketones Negative (NEGATIVE) mg/dL Urine Occult Blood Trace-l (NEGATIVE) Urine Nitrite Negative (NEGATIVE) Urine Bilirubin Negative (NEGATIVE) Urine Urobilinogen 1.0 (0.2-1.0) EU/dL Ur Leukocyte Esterase Negative (NEGATIVE) Urine RBC 0-2 (0-2) #/HPF Urine WBC 0-2 A (NONE SEEN) #/HPF Ur Squamous Epith Cells None seen (NONE/RARE) #/LPF Urine Crystals None seen (None Seen) #/HPF Urine Bacteria None seen (NONE SEEN) #/HPF Urine Casts None seen (NONE SEEN) #/LPF Urine Mucus Small A (NONE SEEN) Ur Culture Indicated? No POC Glucose 114 H (74-106) mg/dL 08/05/23 Range/Units 23:30 WBC (4.0-11.0) 10^3/uL RBC (4.70-6.10) 10^6/uL Hgb (14.0-18.0) g/dL Hct (42.0-54.0) % MCV (80.0-94.0) fL MCH (25.9-34.0) pg MCHC (29.9-35.2) g/dL RDW (11.0-15.0) % Plt Count (150-450) 10^3/uL MPV (9.5-13.5) fL Neut % (Auto) (43.0-75.0) % Lymph % (Auto) (20.5-60.0) % [place] % (Auto) (1.7-12.0) % Eos % (Auto) (0.9-7.0) % Baso % (Auto) (0.2-2.0) % Neut # (Auto) (1.4-6.5) 10^3/uL Lymph # (Auto) (1.2-3.8) 10^3/uL [place] # (Auto) (0.3-0.8) 10^3/uL Eos # (Auto) (0.0-0.7) 10^3/uL Baso # (Auto) (0.0-0.1) 10^3/uL Abs Immat Gran (auto) (0.00-0.03) 10^3/uL Imm/Tot Granulo (auto) (0.0-0.5) % D-Dimer (<=0.59) mg/L FEU Sodium (136-145) mmol/L Potassium (3.5-5.1) mmol/L Chloride (98-107) mmol/L Carbon Dioxide (21.0-32.0) mmol/L Anion Gap BUN (7.0-18.0) mg/dL Creatinine (0.70-1.30) mg/dL Est GFR ( Amer) (>=60) Est GFR (Non-Af Amer) (>=60) BUN/Creatinine Ratio Glucose (74-106) mg/dL Calcium (8.5-10.1) mg/dL Troponin I High Sens 18.5 (4.0-76.1) pg/mL Urine Color (YELLOW) Urine Clarity (CLEAR) Urine pH (5.0-9.0) Ur Specific [place] (1.005-1.025) Urine Protein (NEG/TRACE) mg/dL Urine Glucose (UA) (NEGATIVE) mg/dL Urine Ketones (NEGATIVE) mg/dL Urine Occult Blood (NEGATIVE) Urine Nitrite (NEGATIVE) Urine Bilirubin (NEGATIVE) Urine Urobilinogen (0.2-1.0) EU/dL Ur Leukocyte Esterase (NEGATIVE) Urine RBC (0-2) #/HPF Urine WBC (NONE SEEN) #/HPF Ur Squamous Epith Cells (NONE/RARE) #/LPF Urine Crystals (None Seen) #/HPF Urine Bacteria (NONE SEEN) #/HPF Urine Casts (NONE SEEN) #/LPF Urine Mucus (NONE SEEN) Ur Culture Indicated? POC Glucose (74-106) mg/dL ECG Data Attestation: I personally reviewed and interpreted this ECG as follows: (EKG on my interpretation shows sinus tachycardia with a rate of 113 and a PVC.) Discharge Plan Discharge Stand Alone Forms: Portal Instructions Chief Complaint: Back Pain/Injury Clinical Impression: Chest wall pain Patient Disposition: Home, Self-Care Time of Disposition Decision: 00:12 Condition: Good Mode of Transportation: Private Vehicle Prescriptions / Home Meds: No Action aspirin 81 mg tablet,chewable 81 mg PO DAILY Qty: 30 0RF amlodipine 10 mg tablet 10 mg PO DAILY Qty: 30 0RF metoprolol tartrate [Lopressor] 50 mg tablet 25 mg PO BID Qty: 30 0RF atorvastatin [Lipitor] 40 mg tablet 40 mg PO DAILY Qty: 30 0RF ibuprofen 800 mg tablet 800 mg PO Q8H PRN (Reason: pain) Qty: 20 0RF ketorolac 10 mg tablet 10 mg PO Q8H PRN (Reason: pain) orphenadrine citrate 100 mg tablet extended release 100 mg PO BID PRN (Reason: pain) fkbvwtihckronog-bceznvfig-IQ [Bromfed DM] 2-30-10 mg/5 mL syrup 5 ml PO Q4H PRN (Reason: cold symptoms) Qty: 118 0RF doxycycline monohydrate 100 mg capsule 100 mg PO BID 7 Days Qty: 14 0RF ondansetron 4 mg tablet,disintegrating 4 mg PO Q8H PRN (Reason: nausea and vomiting) 4 Days Qty: 16 0RF ibuprofen 800 mg tablet 800 mg PO Q8H PRN (Reason: pain) Qty: 20 0RF Print Language: Romanian Instructions: Chest Pain (ED), Chest Wall Pain (ED) Referrals: ELIAS DUKES [Primary Care Provider] - 1 week
[2023-08-05 21:29] LABS: Basophils Absolute Auto 0.1 10^3/uL (0.0-0.1); Basophils Percent Auto 0.6 % (0.2-2.0); Eosinophils Absolute Auto 0.2 10^3/uL (0.0-0.7); Eosinophils Percent Auto 1.9 % (0.9-7.0); Hematocrit 44.8 % (42.0-54.0); Hemoglobin 15.4 g/dL (14.0-18.0); Immature Granulocytes Abs Auto 0.07 10^3/uL (0.00-0.03); Immature Granulocytes Pct Auto 0.6 % (0.0-0.5); Lymphocytes Absolute Auto 2.3 10^3/uL (1.2-3.8); Lymphocytes Percent Auto 19.9 % (20.5-60.0); Mean Corpuscular HGB Conc 34.4 g/dL (29.9-35.2); Mean Corpuscular Hemoglobin 30.4 pg (25.9-34.0); Mean Corpuscular Volume 88.4 fL (80.0-94.0); Mean Platelet Volume 10.3 fL (9.5-13.5); Monocytes Percent Auto 8.8 % (1.7-12.0); Neutrophils Absolute Auto 7.9 10^3/uL (1.4-6.5); Neutrophils Percent Auto 68.2 % (43.0-75.0); Platelet Count 256 10^3/uL (150-450); Red Blood Count 5.07 10^6/uL (4.70-6.10); Red Cell Distribution Width 12.6 % (11.0-15.0); White Blood Count 11.5 10^3/uL (4.0-11.0)
--- OUTSIDE RECORDS SUMMARY | 2023-08-05 21:34 | XMS_ITS | CCD ---
Author Organization [facility] Care Team Providers Care Air Traffic [employer] Supervisor Name Role Phone Unavailable Primary Care Provider Unavailabl e Carina Hernandez Primary Care Provider Unavailable Primary Care Provider Unavailabl e NO FAMILY, PHYSICIAN Primary Care Provider Unava ilARSALAN Hurtado Emergency Provider Alfie, [facility] Jenelle E Emergency Provider MEENAKSHI Schmidt Emergency Provider NO FAMILY, PHYSICIAN Primary Care Provider Unava ilable ARSALAN Elizondo Emergency Provider Alfie, [facility] Jenelle E Emergency Provider MEENAKSHI Schmidt Emergency Provider [phone] REQUEST, NONE LISTED Primary Care Unavaila ble KIM, KATE Admitting Unavailable KATE ALVAREZ Attending Unavailable KATE ALVAREZ Consulting Unavailable AMAN PURCELL Consulting Unavailable NATHAN, NONE LISTED Primary Care Unavaila ble JESUS ., JOSEFINA Admitting Unavailable DEVAN LOPEZID Attending Unavailable LIDIA .JOHANNY Consulting Unavailabl e [place], James Consulting Unavailable NO FAMILY, PHYSICIAN Primary Care Provider Unava ilable DO Kris Morales Emergency Provider [phone] MARIEL Rodas Primary Care Provider MD Socorro Osullivan Emergency Provider Bullimore, Jenelle E Admitting Unavailable Bullimore, Jenelle [...] Translations: [AMOXICILLIN] Drug Allergy 6 Unknown Reaction [place], [place] (5 sources) fentaNYL; Translations: [FENTANYL] Drug Allergy 9 [place], [place] (10 sources) predniSONE; Translations: [PREDNISONE] Drug Allergy 6 Other (See Comments) [place] (1 source) Amoxicillin Drug Allergy 3 [facility] Repository (1 source) predniSONE Drug Allergy 3 [facility] Repository (1 source) Amoxicillin Drug Allergy 3 [facility] Repository (1 source) predniSONE Drug Allergy 3 [facility] Repository (1 source) amLODIPine; Translations: [AMLODIPINE] Drug Allergy 3 [facility] Repository Medications Current Medications Medication [...] Active Problems Problem Classification Problem Date Documented Da te Episodic/Chronic Chronic obstructive pulmonary disease and bronchiectasis [...] including migraine; Translations: [HEADACHE UNSPECIFIED] Onset: 12-02-2021 Nausea and vomiting (1 source) Nausea with vomiting, unspecified; Translations: [Nausea with vomiting, unspecified] Onset: 07-04-2023 Episodic Noninfectious gastroenteritis (1 source) Enteritis of small intestine; Translations: [Noninfective gastroenteritis and colitis, unspecified] Episodic Other circulatory disease (3 sources) Elevated blood pressure; Translations: [Elevated blood-pressure reading, without diagnosis of hypertension] 12-19-2021 Episodic Other connective tissue disease (1 source) Left achilles tendonitis; Translations: [Left Achilles tendinitis] Other gastrointestinal disorders (1 source) Diarrhea, unspecified; Translations: [Diarrhea, unspecified] Onset: 07-04-2023 Episodic Other nervous system disorders (1 source) Tingling [...] Name Value Interpretation Reference Range Facil ity CBC with Diffon 07-04-2023 Abs. Basophil 0.06 k/uL Normal 0.00-0.20 [facility] Comment on above: Performed By: #### C RAMÓN MELTON, CP #### [facility] [address] [place] [address] Dr. [place] [id number] Caseworker Protective Services: Alex Amador MD Abs.Imm.Granulocyte 0.03 k/uL Normal 0.00-0.30 [facility] Comment on above: Performed By: #### C RAMÓN MELTON, CP #### [address] [place] [phone] Caseworker Protective Services: Alex Amador MD Abs.Neutrophil (Seg) 7.00 k/uL Normal 1.50-8.10 [facility] Comment on above: Performed By: #### C RAMÓN MELTON, CP #### [address] [place] [phone] Caseworker Protective Services: Alex Amador MD Basophils/100 WBC (Bld) 1 % Normal 0-2 [facility] Comment on above: Performed By: #### C RAMÓN MELTON, CP #### [address] [place] [phone] Caseworker Protective Services: Alex Amador MD Eosinophils (Bld) [#/Vol] 0.17 10*3/uL Normal 0.00-0.44 [facility] Comment on above: Performed By: #### C LINH LIP, CP #### [address] [place], [facility]83 Caseworker Protective Services: Alex Amador MD Eosinophils/100 WBC (Bld) 2 % Normal 1-4 [facility] Comment on above: Performed By: #### C LINH LIP, CP #### [address] Fink, [place] [address] Caseworker Protective Services: Alex Amador MD Erythrocyte distribution width (RBC) [Ratio] 12.4 % Normal 11.8-14.4 [facility] Comment on above: Performed By: #### C RAMÓN MELTON, CP #### [address] Fink, [facility]83 Caseworker Protective Services: Alex Amador MD Hematocrit (Bld) [Volume fraction] 44.6 % Normal 40.7-50.3 [facility] Comment on above: Performed By: #### C RAMÓN MELTON, CP #### [address] [place]ink, [facility]83 Caseworker Protective Services: Alex Amador MD Hemoglobin (Bld) [Mass/Vol] 15.5 g/dL Normal 13.0-17.0 [facility] Comment on above: Performed By: #### C RAMÓN MELTON, CP #### [address] Fink, [facility]83 Caseworker Protective Services: Alex Amador MD Immature granulocytes/100 WBC (Bld) 0 % Normal 0 [facility] Comment on above: Performed By: #### C LINH LIP, CP #### [address] Fink, [facility]83 Caseworker Protective Services: Alex Amador MD Lymphocytes (Bld) [#/Vol] 1.59 10*3/uL Normal 1.10-3.70 [facility] Comment on above: Performed By: #### C DP LIP, CP #### [facility] [address] [place], [place] [address] Caseworker Protective Services: Alex Amador MD Lymphocytes/100 WBC (Bld) 17 % Low 24-43 [facility] Comment on above: Performed By: #### C DP LIP, CP #### [address] [place]ink, [place] [address] Caseworker Protective Services: Alex Amador MD MCH (RBC) [Entitic mass] 30.3 pg Normal 25.2-33.5 [facility] Comment on above: Performed By: #### C LINH LIP, CP #### [address] [place]ink, [place] [address] Caseworker Protective Services: Alex Amador MD MCHC (RBC) [Mass/Vol] 34.8 g/dL Normal 28.4-34.8 [facility] Comment on above: Performed By: #### C DP LIP, CP #### [address] [place]ink, [place] [address] Caseworker Protective Services: Alex Amador MD MCV (RBC) [Entitic vol] 87.1 fL Normal 82.6-102.9 [facility] Comment on above: Performed By: #### C DP LIP, CP #### [address] [place]ink, [place] [address] Caseworker Protective Services: Alex Amador MD Monocytes (Bld) [#/Vol] 0.78 10*3/uL Normal 0.10-1.20 [facility] Comment on above: Performed By: #### C DP LIP, CP #### [address] Fink, [facility]83 Caseworker Protective Services: Alex Amador MD Monocytes/100 WBC (Bld) 8 % Normal 3-12 [facility] Comment on above: Performed By: #### C DP, LIP, CP #### [facility] [address] [place], [place] [phone] Caseworker Protective Services: Alex Amador MD Neutrophil (Seg) 72 % High 36-65 [facility] Comment on above: Performed By: #### C DP, LIP, CP #### [facility] [address] [place], [facility]83 Caseworker Protective Services: Alex Amador MD NRBC Automated 0.0 per 100 WBC Normal 0.0 [facility] Comment on above: Performed By: #### C DP, LIP, CP #### [address] [place]ink, [facility]83 Caseworker Protective Services: Alex Amador MD Platelet mean volume (Bld) [Entitic vol] 10.4 fL Normal 8.1-13.5 [facility] Comment on above: Performed By: #### C DP LIP, CP #### [address] [place]ink, [facility]83 Caseworker Protective Services: Alex Amador MD Platelets (Bld) [#/Vol] 239 10*3/uL Normal 138-453 [facility] Comment on above: Performed By: #### C DP LIP, CP #### [address] [place], [place] 1987683 Caseworker Protective Services: Alex Amador MD RBC (Bld) [#/Vol] 5.12 10*6/uL Normal 4.21-5.77 [facility] Comment on above: Performed By: #### C DP LIP, CP #### [address] [place], [place] [phone] Caseworker Protective Services: Alex Amador MD WBC (Bld) [#/Vol] 9.6 10*3/uL Normal 3.5-11.3 [facility] Comment on above: Performed By: #### C DP, LIP, CP #### [facility] [address] [place], [place] [phone] Caseworker Protective Services: Alex Amador MD Comp Metabolic Profon 2023 Albumin [Mass/Vol] 4.4 g/dL Normal 3.5-5.2 [facility] Comment on above: Performed By: #### C DP, LIP, CP #### [facility] [address] [place] [address] Caseworker Protective Services: Alex Amador MD Albumin/Glob Ratio 1.2 Normal 1.0-2.5 [facility] Comment on above: Performed By: #### C DP, LIP, CP #### [facility] [address] [place] [address] Caseworker Protective Services: Alex Amador MD Alkaline Phos 103 U/L Normal 40-129 [facility] Comment on above: Performed By: #### C DP, LIP, CP #### [facility] [address] [place], [place] [phone] Caseworker Protective Services: Alex Amador MD ALT [Catalytic activity/Vol] 30 U/L Normal 5-41 [facility] Comment on above: Performed By: #### C DP, LIP, CP #### [facility] [address] [place] [address] Caseworker Protective Services: Alex Amador MD Anion gap [Moles/Vol] 10 mmol/L Normal 9-17 [facility] Comment on above: Performed By: #### C DP, LIP, CP #### [facility] [address] [place], [place] [phone] Caseworker Protective Services: Alex Amador MD AST [Catalytic activity/Vol] 21 U/L Normal <40 [facility] Comment on above: Performed By: #### C DP, LIP, CP #### [facility] [address] [place], [place] [phone] Caseworker Protective Services: Alex Amador MD Bilirubin [Mass/Vol] 0.7 mg/dL Normal 0.3-1.2 [facility] Comment on above: Performed By: #### C DP LIP, CP #### [facility] [address] [place], [place] [phone] Caseworker Protective Services: Alex Amador MD BUN/CRE Ratio 13 Normal 9-20 [facility] Comment on above: Performed By: #### C DP LIP, CP #### [facility] [address] [place], [place] [phone] Caseworker Protective Services: Alex Amador MD Calcium [Mass/Vol] 9.1 mg/dL Normal 8.6-10.4 [facility] Comment on above: Performed By: #### C LINH LIP, CP #### [address] [place], [place] 6851883 Caseworker Protective Services: Alex Amador MD Chloride [Moles/Vol] 102 mmol/L Normal 98-107 [facility] Comment on above: Performed By: #### C RAMÓN MELTON, CP #### [address] [place], [place] [phone] Caseworker Protective Services: Alex Amador MD CO2 [Moles/Vol] 27 mmol/L Normal 20-31 [facility] Comment on above: Performed By: #### C LINH LIP, CP #### [facility] [address] [place] [address] Dr. [place], [place] [phone] Caseworker Protective Services: Alex Amador MD Creatinine [Mass/Vol] 0.8 mg/dL Normal 0.7-1.2 [facility] Comment on above: Performed By: #### C DP LIP, CP #### [facility] [address] [place], [place] [phone] Caseworker Protective Services: Alex Amador MD GFR/1.73 sq M.predicted among non-blacks MDRD (S/P/Bld) [Vol rate/Area] mL/min/{1.73_m2} Normal >60 [facility] Comment on above: Result Comment: These results are not intended for use in patients <18 years of age. eGFR results are calculated without a race factor using the 2020 CKD-EPI equation. Careful clinical correlation is recommended, particularly when comparing to results calculated using previous equations. The CKD-EPI equation is less accurate in patients with extremes of muscle mass, extra-renal metabolism of creatine, excessive creatine ingestion, or following therapy that affects renal tubular secretion. Performed By: #### C RAMÓN MELTON, CP #### [facility] [address] [place] [address] [place] [address] Caseworker Protective Services: Alex Amador MD Glucose [Mass/Vol] 97 mg/dL Normal 70-99 [facility] Comment on above: Performed By: #### C RAMÓN MELTON, CP #### [address] [place] [address] Caseworker Protective Services: Alex Amador MD Potassium [Moles/Vol] 4.2 mmol/L Normal 3.7-5.3 [facility] Comment on above: Performed By: #### C RAMÓN MELTON, CP #### [address] [place] [address] Caseworker Protective Services: Alex Amador MD Protein [Mass/Vol] 8.0 g/dL Normal 6.4-8.3 [facility] Comment on above: Performed By: #### C RAMÓN MELTON, CP #### [address] [place], [place] 9573783 Caseworker Protective Services: Alex Amador MD Sodium [Moles/Vol] 139 mmol/L Normal 135-144 [facility] Comment on above: Performed By: #### C RAMÓN MELTON, CP #### [address] [place] [address] Caseworker Protective Services: Alex Amador MD Urea nitrogen [Mass/Vol] 10 mg/dL Normal 6-20 [facility] Comment on above: Performed By: #### C DP LIP, CP #### [facility] [address] [place] [address] Caseworker Protective Services: Alex Amador MD Lipaseon 07-04-2023 Lipase [Catalytic activity/Vol] 29 U/L Normal 13-60 [facility] Comment on above: Performed By: #### C DP LIP, CP #### [facility] [address] [place] [address] Caseworker Protective Services: Alex Amador MD 36on 11-21-2022 36 Patient's girlfriend called to [...] cost is very similar. Help! Thanks. Normal [facility] CBCon 11-17-2022 Erythrocyte distribution width (RBC) [Ratio] 12.9 % Normal 11.5-15.0 [facility] Comment on above: Performed By: #### L [id number] ####[facility] ([facility])[address] [place] [address] ERYTHROCYTE MEAN CORPUSCULAR HEMOGLOBIN CONCENTRATION (G/DL) BY AUTOMATED 34.2 g/dL Normal 32.0-35.0 [facility] Comment on above: Performed By: #### L [id number] ####[facility] ([facility])[address] [place] [address] Hematocrit (Bld) [Volume fraction] 43.6 % Normal 39.0-55.0 [facility] Comment on above: Performed By: #### L [id number] ####[facility] ([facility])[address] [place] [address] Hemoglobin (Bld) [Mass/Vol] 14.9 g/dL Normal 13.0-17.0 [facility] Comment on above: Performed By: #### L [id number] ####[facility] [place] [address] MCH (RBC) [Entitic mass] 30.2 pg Normal 27.0-33.0 [facility] Comment on above: Performed By: #### L [id number] ####[facility] [place] [address] MCV (RBC) [Entitic vol] 88.4 fL Normal 82.0-98.0 [facility] Comment on above: Performed By: #### L [id number] ####[facility] ([facility])[address] [place] [address] PLATELETS (10*3/UL) IN BLOOD AUTOMATED COUNT 237 10*3/uL Normal 150-400 [facility] Comment on above: Performed By: #### L [id number] ####[facility] ([facility])[address] [place] [address] RBC (Bld) [#/Vol] 4.93 10*6/uL Normal 4.20-5.70 [facility] Comment on above: Performed By: #### L [id number] ####[facility] ([facility])[address] [place] [address] WBC (Bld) [#/Vol] 10.15 10*3/uL Normal 4.00-10.60 [facility] Comment on above: Performed By: #### L [id number] ####[facility] ([facility])[address] [place] [address] [facility] 11-17-2022 HP H&P reviewed. The patient was [...] consent was signed prior to the procedure. [facility] HP H&P reviewed. The patient was examined and there are no changes to the H&P. Rafat Michelle MD, MPH, [facility], [facility], [facility] Interventional Cardiology Pager Email: [email or web address] Corina 11-17-2022 CARLNOTPushpa RN educated pt on d/c instructions. RN encouraged pt to voice any questions or concerns. Pt verbalizes no questions or concerns at this time. Pt was wheeled off of unit with all of belongings. [facility] Orders Onlyon 11-09-2022 Orders Only [id number] Lawson Lopez 1980 M Date Provider Department Center 11/09/2022 [facility] VAS LAB DC Heart[facility]AS Family History Problem Relation Age of Onset Coronary artery disease Mother's Brother Peripheral vascular disease Mother's Brother Family Status - Relation Status Age at Mother's Brother [facility] HPon 10-31-2022 [facility] Cardiology Clinic Note Chief Complaint: Patient here for follow up [facility] for chest pain. He was seen as inpatient consult by Melania Alarcon CNP. Had inpatient stress test. HPI: Lawson Lopez is a 42 y.o. male seen by [...] pending the above Rafat Michelle MD, MPH, [facility], [facility], [facility] Interventional Cardiology Pager Email: [email or web address] Normal [facility] Office Visiton 10-31-2022 Follow-up visit [id number] Lawson Lopez Justice 1980 M Date Provider Department Center 10/31/2022 Davie-RAFAT MICHELLE CINDY Sin Family History Problem Relation Age of Onset Coronary artery disease Mother's Brother Peripheral vascular disease Mother's Brother Family Status - Relation Status Age at Mother's Brother Level of Service:81660 ID OFFICE/OUTPATIENT ESTABLISHED HIGH MDM 40-54 MIN Normal [facility] Orders Onlyon 10-31-2022 Orders Only [id number] Lawson Lopez Justice 1980 M Date Provider Department Center 10/31/2022 TEA BENÍTEZ CINDY Sin Family History Problem Relation Age of Onset Coronary artery disease Mother's Brother Peripheral vascular disease Mother's Brother Family Status - Relation Status Age at Mother's Brother Normal [facility] Activated partial thrombopla stin time (aPTT) in platelet poor plasma by coagulation aOrdered By: Socorro Osullivan on 10-11-2022 aPTT Coag (PPP) [Time] 27.7 s 25.1-36.5 [facility] B-Type Natriuretic Peptideon 10-11-2022 Natriuretic peptide B (Bld) [Mass/Vol] 21.0 pg/mL Normal 5-100 [facility] Comment on above: Result Comment: PERF ORMED BY: [place] [address] PATHOLOGIST HONING MACHINE SET UP OPERATOR BRICE STEPHEN M.D. Performed By: #### B MP, HS TROP, CBC, PT, BNP, CK, PTT #### [address] Basic Metabolic Panelon Anion gap [Moles/Vol] 10.7 mmol/L Normal 6.0-15.0 [facility] Comment on above: Performed By: #### B MP, HS TROP, CBC, PT, BNP, CK, PTT ####[place] [id number] [address] Calcium [Mass/Vol] 9.5 mg/dL Normal 8.6-10.3 [facility] Comment on above: Performed By: #### B MP, HS TROP, CBC, PT, BNP, CK, PTT ####[address] Chloride [Moles/Vol] 102 mmol/L Normal 98-107 [facility] Comment on above: Performed By: #### B MP, HS TROP, CBC, PT, BNP, CK, PTT ####[address] CO2 [Moles/Vol] 29.1 mmol/L Normal 21.0-31.0 [facility] Comment on above: Performed By: #### B MP, HS TROP, CBC, PT, BNP, CK, PTT ####[address] Creatinine [Mass/Vol] 0.79 mg/dL Normal 0.70-1.30 [facility] Comment on above: Performed By: #### B MP, HS TROP, CBC, PT, BNP, CK, PTT ####[address] Creatinine Clr Calc Pharmacy 158.41 [facility] Comment on above: Result Comment: PERF ORMED BY: [facility] [address] [place] [address] PATHOLOGIST HONING MACHINE SET UP OPERATOR BRICE STEPHEN M.D. Performed By: #### B MP, HS TROP, CBC, PT, BNP, CK, PTT ####[address] GFR/1.73 sq M.predicted MDRD (S/P/Bld) [Vol rate/Area] mL/min/{1.73_m2} [facility] Comment on above: Performed By: #### B MP, HS TROP, CBC, PT, BNP, CK, PTT ####[place] [address] [place] [address]0070 [facility] Glucose [Mass/Vol] 90 mg/dL Normal 70-100 [facility] Comment on above: Result Comment: [facility] Glucose Reference Range is dependent on time and content of last meal. Glucose of more than 200 mg/dL in a nonstressed, ambulatory subject supports the diagnosis of Diabetes Mellitus. ADA recommended reference range Performed By: #### B MP, HS TROP, CBC, PT, BNP, CK, PTT ####[place] [address] [place] [address]0070 [facility] Potassium [Moles/Vol] 3.8 mmol/L Normal 3.5-5.1 [facility] Comment on above: Performed By: #### B MP, HS TROP, CBC, PT, BNP, CK, PTT ####[place] [address] [place] [address] [facility] Sodium [Moles/Vol] 138 mmol/L Normal 136-145 [facility] Comment on above: Performed By: #### B MP, HS TROP, CBC, PT, BNP, CK, PTT ####[place] [address] [place] [address]0070 [facility] Urea nitrogen [Mass/Vol] 11 mg/dL Normal 7-25 [facility] Comment on above: Performed By: #### B MP, HS TROP, CBC, PT, BNP, CK, PTT ####[place] [id number] [facility] Basophils Auto (Bld) [#/Vol] Ordered By: Socorro Osullivan on 10-11-2022 Basophils (Bld) [#/Vol] 0.1 10*3/uL 0.0-0.2 [facility] Basophils/100 WBC Auto (Bld) Ordered By: Socorro Osullivan on 10-11-2022 Basophils/100 WBC (Bld) 0.9 % . [facility] Calcium [Mass/volume] in Ser um or PlasmaOrdered By: Socorro Osullivan on 10-11-2022 Calcium [Mass/Vol] 9.5 mg/dL 8.6-10.3 [facility] Carbon dioxide, total [Moles /volume] in Serum or PlasmaOrdered By: Socorro Osullivan on 10-11-2022 CO2 [Moles/Vol] 29.1 mmol/L 21.0-31.0 [facility] Chloride [Moles/volume] in S josselin or PlasmaOrdered By: Socorro Osullivan on 10-11-2022 Chloride [Moles/Vol] 102 mmol/L 98-107 [facility] Complete Blood Count Auto Di ffon 10-11-2022 Basophils (Bld) [#/Vol] 0.1 10*3/uL Normal 0.0-0.2 [facility] Comment on above: Result Comment: PERF ORMED BY: [place] [address] PATHOLOGIST HONING MACHINE SET UP OPERATOR BRICE STEPHEN M.D. Performed By: #### B MP, HS TROP, CBC, PT, BNP, CK, PTT #### [address] Basophils/100 WBC (Bld) 0.9 % Normal . [facility] Comment on above: Performed By: #### B MP, HS TROP, CBC, PT, BNP, CK, PTT #### [facility] [address] [place] [address] Eosinophils (Bld) [#/Vol] 0.2 10*3/uL Normal 0.0-0.45 [facility] Comment on above: Performed By: #### B MP, HS TROP, CBC, PT, BNP, CK, PTT #### [address] Eosinophils/100 WBC (Bld) 2.5 % Normal . [facility] Comment on above: Performed By: #### B MP, HS TROP, CBC, PT, BNP, CK, PTT #### [address] Erythrocyte distribution width (RBC) [Ratio] 13.3 % Normal 12.0-14.8 [facility] Comment on above: Performed By: #### B MP, HS TROP, CBC, PT, BNP, CK, PTT #### [address] [place] [address] [place] Hematocrit (Bld) [Volume fraction] 40.4 % Normal 38.8-50.0 [facility] Comment on above: Performed By: #### B MP, HS TROP, CBC, PT, BNP, CK, PTT #### [address] Hemoglobin (Bld) [Mass/Vol] 14.2 g/dL Normal 13.0-17.0 [facility] Comment on above: Performed By: #### B MP, HS TROP, CBC, PT, BNP, CK, PTT #### [address] Lymphocytes (Bld) [#/Vol] 1.8 10*3/uL Normal 1.00-4.8 [facility] Comment on above: Performed By: #### B MP, HS TROP, CBC, PT, BNP, CK, PTT #### [address] Lymphocytes/100 WBC (Bld) 18.6 % Normal . [facility] Comment on above: Performed By: #### B MP, HS TROP, CBC, PT, BNP, CK, PTT #### [address] MCH (RBC) [Entitic mass] 30.4 pg Normal 27.5-35.2 [facility] Comment on above: Performed By: #### B MP, HS TROP, CBC, PT, BNP, CK, PTT #### [address] MCV (RBC) [Entitic vol] 86.6 fL Normal 83.5-101 [facility] Comment on above: Performed By: #### B MP, HS TROP, CBC, PT, BNP, CK, PTT #### [address] Mean Corpuscular HGB Conc 35.1 g/dL Normal 32.5-35.6 [facility] Comment on above: Performed By: #### B MP, HS TROP, CBC, PT, BNP, CK, PTT #### [address] Monocytes (Bld) [#/Vol] 0.7 10*3/uL Normal 0.0-0.8 [facility] Comment on above: Performed By: #### B MP, HS TROP, CBC, PT, BNP, CK, PTT #### [address] Monocytes/100 WBC (Bld) 18.08 % Normal 0.00-20.00 [facility] Comment on above: Performed By: #### B MP, HS TROP, CBC, PT, BNP, CK, PTT #### [address] Monocytes/100 WBC (Bld) 7.2 % Normal . [facility] Comment on above: Performed By: #### B MP, HS TROP, CBC, PT, BNP, CK, PTT #### [address] Neutrophils (Bld) [#/Vol] 6.7 10*3/uL Normal 1.8-7.7 [facility] Comment on above: Performed By: #### B MP, HS TROP, CBC, PT, BNP, CK, PTT #### [address] Neutrophils/100 WBC (Bld) 70.8 % Normal . [facility] Comment on above: Performed By: #### B MP, HS TROP, CBC, PT, BNP, CK, PTT #### [address] NRBC% 0.2 /100{WBC} Normal 0-0.5 [facility] Comment on above: Performed By: #### B MP, HS TROP, CBC, PT, BNP, CK, PTT #### [address] Platelet mean volume (Bld) [Entitic vol] 8.0 fL Normal 6.6-10.1 [facility] Comment on above: Performed By: #### B MP, HS TROP, CBC, PT, BNP, CK, PTT #### [facility] [address] [place] [address] [place] Platelets (Bld) [#/Vol] 218 10*3/uL Normal 150-450 [facility] Comment on above: Performed By: #### B MP, HS TROP, CBC, PT, BNP, CK, PTT #### [facility] [address] RBC (Bld) [#/Vol] 4.67 10*6/uL Normal 3.90-5.60 [facility] Comment on above: Performed By: #### B MP, HS TROP, CBC, PT, BNP, CK, PTT #### [facility] [address] WBC (Bld) [#/Vol] 9.5 10*3/uL Normal 4.1-10.5 [facility] Comment on above: Performed By: #### B MP, HS TROP, CBC, PT, BNP, CK, PTT #### [facility] [address] [place] [id number] [facility] Creatine Kinaseon 10-11-2022 CK [Catalytic activity/Vol] 87 U/L Normal 30-223 [facility] Comment on above: Performed By: #### B MP, HS TROP, CBC, PT, BNP, CK, PTT ####[facility] [id number] Creatine kinase [Enzymatic a ctivity/volume] in Serum or PlasmaOrdered By: Socorro Osullivan on 10-11-2022 CK [Catalytic activity/Vol] 87 U/L 30- [facility] Creatinine [Mass/volume] in Serum or PlasmaOrdered By: Socorro Osullivan on 10-11-2022 Creatinine [Mass/Vol] 0.79 mg/dL 0.70-1.30 [facility] ECG 12 lead ECGon 10-11-2022 ECG 12 lead ECG [facility] [address] [address] [place] [address] Electrocardiograph Report Signed Patient: Lawson Lopez MR#: [id number] 168 : 1980 Acct:[id number] Age/Sex: 42 / M ADM Date: 10/11/22 Loc: ER Room: Type: [facility] ER Attending Dr: Ordering Provider: [...] was found Confirmed by MARCELA MARTINEZ DO ([id number]) on 10/11/2022 4:18:13 PM Referred By: Electronically Signed By:MARCELA MARTINEZ DO Transcribed By: MUS Signed By Marcela Martinez DO 10/11 1618 Normal [facility] Eosinophils Auto (Bld) [#/Vo l]Ordered By: Socorro Osullivan on 10-11-2022 Eosinophils (Bld) [#/Vol] 0.2 10*3/uL 0.0-0.45 [facility] Eosinophils/100 WBC Auto (Bl d)Ordered By: Socorro Osullivan on 10-11-2022 Eosinophils/100 WBC (Bld) 2.5 % . [facility] Erythrocyte distribution wid th Auto (RBC) [Ratio]Ordered By: Socorro Osullivan on 10-11-2022 Erythrocyte distribution width (RBC) [Ratio] 13.3 % 12.0-14.8 [facility] Glucose [Mass/volume] in Ser um or PlasmaOrdered By: Socorro Osullivan on 10-11-2022 Glucose [Mass/Vol] 90 mg/dL 70-100 [facility] Comment on above: ADA recommended refe rence rangeRandom Glucose Reference Range is dependent on time and content of last meal. Glucose of more than 200 mg/dL in a nonstressed, ambulatory subject supports the diagnosis of Diabetes Mellitus. Hematocrit Auto (Bld) [Volum e fraction]Ordered By: Socorro Osullivan on 10-11-2022 Hematocrit (Bld) [Volume fraction] 40.4 % 38.8-50.0 [facility] Hemoglobin [Mass/volume] in BloodOrdered By: Socorro Osullivan on 10-11-2022 Hemoglobin (Bld) [Mass/Vol] 14.2 g/dL 13.0-17.0 [facility] Ionized Calciumon 10-11-2022 Ionized Calcium 4.8 mg/dL Normal 4.5-5.6 [facility] Comment on above: Result Comment: Perf ormed at: CB - [facility] [address] [id number] Caseworker Protective Services: Willi Chester PhD, Phone: [phone] PERFORMED BY: [address] [place] [address] PATHOLOGIST HONING MACHINE SET UP OPERATOR BRICE STEPHEN M.D. Performed By: #### C AION #### [facility] , Laboratory - CoagulationOrde red By: Socorro Osullivan on 10-11-2022 PT Coag (PPP) [Time] 12.0 s 9.0-12.9 [facility] Leukocytes [#/volume] correc giselle for nucleated erythrocytes in Blood by Automated counOrdered By: Socorro Osullivan on 10-11-2022 WBC corrected for nucl RBC Auto (Bld) [#/Vol] 9.5 10*3/uL 4.1-10.5 [facility] Lymphocytes Auto (Bld) [#/Vo l]Ordered By: Socorro Osullivan on 10-11-2022 Lymphocytes (Bld) [#/Vol] 1.8 10*3/uL 1.00-4.8 [facility] Lymphocytes/100 WBC Auto (Bl d)Ordered By: Socorro Osullivan on 10-11-2022 Lymphocytes/100 WBC (Bld) 18.6 % . [facility] MCH Auto (RBC) [Entitic mass ]Ordered By: Socorro Osullivan on 10-11-2022 MCH (RBC) [Entitic mass] 30.4 pg 27.5-35.2 [facility] MCHC Auto (RBC) [Mass/Vol]Or dered By: Socorro Osullivan on 10-11-2022 MCHC (RBC) [Mass/Vol] 35.1 g/dL 32.5-35.6 [facility] MCV Auto (RBC) [Entitic vol] Ordered By: Socorro Osullivan on 10-11-2022 MCV (RBC) [Entitic vol] 86.6 fL 83.5-101 [facility] Monocyte distribution width [Entitic volume] in Blood by AutomatedOrdered By: Socorro Osullivan on 10-11-2022 Monocyte distribution width Auto (Bld) [Entitic vol] 18.08 % 0.00-20.00 [facility] Monocytes Auto (Bld) [#/Vol] Ordered By: Socorro Osullivan on 10-11-2022 Monocytes (Bld) [#/Vol] 0.7 10*3/uL 0.0-0.8 [facility] Monocytes/100 WBC Auto (Bld) Ordered By: Socorro Osullivan on 10-11-2022 Monocytes/100 WBC (Bld) 7.2 % . [facility] Natriuretic peptide B [Mass/ Vol]Ordered By: Socorro Osullivan on 10-11-2022 Natriuretic peptide B (Bld) [Mass/Vol] 21.0 pg/mL 5-100 [facility] Neutrophils Auto (Bld) [#/Vo l]Ordered By: Socorro Osullivan on 10-11-2022 Neutrophils (Bld) [#/Vol] 6.7 10*3/uL 1.8-7.7 [facility] Neutrophils/100 WBC Auto (Bl d)Ordered By: Socorro Osullivan on 10-11-2022 Neutrophils/100 WBC (Bld) 70.8 % . [facility] No Panel InformationOrdered By: Socorro Osullivan on 10-11-2022 Estimated GFR (CKD-EPI) > 60.0 mL/Min [facility] Creatinine Clearance (Chem 158.41 [facility] Nucleated erythrocytes [Pres ence] in Blood by Automated countOrdered By: Socorro Osullivan on 10-11-2022 Nucleated RBC Auto Ql (Bld) 0.2 /100{WBC} 0-0.5 [facility] Partial Thromboplastin Timeo n 10-11-2022 aPTT Coag (Bld) [Time] 27.7 s Normal 25.1-36.5 [facility] Comment on above: Result Comment: PERF ORMED BY: [facility] [address] [place] [address] PATHOLOGIST HONING MACHINE SET UP OPERATOR BRICE STEPHEN M.D. Performed By: #### B MP, HS TROP, CBC, PT, BNP, CK, PTT #### [facility] [address] Platelet mean volume Auto (B ld) [Entitic vol]Ordered By: Socorro Osullivan on 10-11-2022 Platelet mean volume (Bld) [Entitic vol] 8.0 fL 6.6-10.1 [facility] Platelet poor plasma interna tional normalized ratio (INR) by coagulation assay (relatOrdered By: Socorro Osullivan on 10-11-2022 INR Coag (PPP) [Relative time] 1.0 {INR} [facility] Comment on above: INR Therapeutic Rang e [...] 10-11-2022 Platelets (Bld) [#/Vol] 218 10*3/uL 150-450 [facility] Potassium [Moles/volume] in Serum or PlasmaOrdered By: Socorro Osullivan on 10-11-2022 Potassium [Moles/Vol] 3.8 mmol/L 3.5-5.1 [facility] Prothrombin Time INRon 10-11 INR Coag (PPP) [Relative time] 1.0 {INR} Normal [facility] Comment on above: Result Comment: INR Therapeutic [...] TROP, CBC, PT, BNP, CK, PTT #### [facility] [address] PT Coag (PPP) [Time] 12.0 s Normal 9.0-12.9 [facility] Comment on above: Performed By: #### B MP, HS TROP, CBC, PT, BNP, CK, PTT #### [facility] [address] RBC Auto (Bld) [#/Vol]Ordere d By: Socorro Osullivan on 10-11-2022 RBC (Bld) [#/Vol] 4.67 10*6/uL 3.90-5.60 [facility] Serum or plasma anion gap de terminationOrdered By: Socorro Osullivan on 10-11-2022 Anion gap [Moles/Vol] 10.7 mmol/L 6.0-15.0 [facility] Sodium [Moles/volume] in Ser um or PlasmaOrdered By: Socorro Osullivan on 10-11-2022 Sodium [Moles/Vol] 138 mmol/L 136-145 [facility] Troponin I High Sensitivityo n 10-11-2022 Troponin I High Sensitivity 6.3 pg/mL Normal 0.0-20.0 [facility] Comment on above: Result Comment: PERF ORMED BY: [facility] [address] [place] [address] PATHOLOGIST HONING MACHINE SET UP OPERATOR BRICE STEPHEN M.D. Performed By: #### B MP, HS TROP, CBC, PT, BNP, CK, PTT ####[facility] [id number] Troponin I.cardiac [Mass/vol ume] in Serum or Plasma by Detection limit <= 0.01 ng/Ordered By: Socorro Osullivan on 10-11-2022 Troponin I.cardiac DL <= 0.01 ng/mL [Mass/Vol] 6.3 pg/mL 0.0-20.0 [facility] Urea nitrogen [Mass/volume] in Serum or PlasmaOrdered By: Socorro Osullivan on 10-11-2022 Urea nitrogen [Mass/Vol] 11 mg/dL 7-25 [facility] WBC Auto (Bld) [#/Vol]Ordere d By: Socorro Osullivan on 10-11-2022 WBC (Bld) [#/Vol] 9.5 10*3/uL 4.1-10.5 [facility] XR chest 2V*on 10-11-2022 XR chest 2V* [facility] [address] [place] [id number] XRay Report Signed Patient: Lawson Lopez MR#: [id number] 168 : 1980 Acct:[id number] Age/Sex: 42 / M ADM Date: 10/11/22 [...] ABNORMALITY. Impression dictated by: Wayne Anguiano Jr., D.ODomitila10/11/2022 1:17 PM Dictation Location: [place] [address] Transcribed By: [facility] 10/11/221316 Dictated By: Wayne Anguiano Jr, DO 10/11/22 1317 Signed By: 10/11/22 1317 Normal [facility] CT head/brain wo conon 08-18 CT head/brain wo con [address] [address] [address] Scan Report Signed Patient: Lawson Lopez MR#: [id number] 168 : 1980 Acct:[id number] Age/Sex: 42 / M ADM Date: 08/18/22 [...] Tejinder Alcantara M.D.08/18/2022 12:43 PM Dictation Location: [place] [address] Transcribed By: [facility] 08/18/22 1243 Dictated By: Tejinder Alcantara DO 08/18/22 1242 Signed By: 08/18/22 1243 Normal [facility] ECG 12 lead ECGon 08-18-2022 ECG 12 lead ECG [facility] [place] [address] [place] [address] Electrocardiograph Report Signed Patient: Lawson Lopez MR#: [id number] 168 : 1980 Acct:[id number] Age/Sex: 42 / M ADM Date: 08/18/22 Loc: ER Room: Type: [facility] ER Attending Dr: Ordering Provider: [...] ECGs available Confirmed by Kris MORALES DO ([id number]) on 08/18/2022 1:47:48 PM Referred By: Electronically Signed By:Kris MORALES DO Transcribed By: MUS Signed By Kris Morales, 0 08/18/22 1347 Normal [facility] BNPon 05-16-2022 Natriuretic peptide B (Bld) [Mass/Vol] 51.0 pg/mL Normal <=450.0 [facility] Comment on above: Performed By: #### B FLYING TEACHER, CMADM, BMP #### [facility] [address] [place] [address] Dr. Divina Patino CARDIAC DAT 3-6on 3 CK [Catalytic activity/Vol] 43 U/L Normal 39-308 [facility] Comment on above: Performed By: #### L ACT #### [facility] [address] [place] [address] Dr. Divina Patino HSTROP 10.6 pg/mL Normal 4.0-76.1 [facility] Comment on above: Result Comment: CUT- OFF POINTS HAVE BEEN ESTABLISHED BASED ON THE FOURTH UNIVERSAL DEFINITIONS OF MYOCARDIAL INFARCTION. THE UPPER REFERENCE LIMIT (URL) OF TROPONIN, DEFINED THE 99TH PERCENTILE OF cTnI DISTRIBUTION IN A REFERENCE POPULATION, HAS BEEN CONFIRMED THE DECISION THRESHOLD FOR [place] DIAGNOSIS. Performed By: #### L ACT #### [facility] [address] [place] [address] Dr. Divina Patino CARDIAC DAT ADMITon 023 CK [Catalytic activity/Vol] 44 U/L Normal 39-308 [facility] Comment on above: Performed By: #### B FLYING TEACHER, CMADM, BMP #### [facility] [address] [place] [address] Dr. Divina Patino CK.MB [Mass/Vol] ng/mL Normal <=3.60 [facility] Comment on above: Performed By: #### B FLYING TEACHER, CMADM, BMP #### [facility] [address] [place] [address] Dr. Divina Patino HSTROP 9.9 pg/mL Normal 4.0-76.1 [facility] Comment on above: Result Comment: CUT- OFF POINTS HAVE BEEN ESTABLISHED BASED ON THE FOURTH UNIVERSAL DEFINITIONS OF MYOCARDIAL INFARCTION. THE UPPER REFERENCE LIMIT (URL) OF TROPONIN, DEFINED THE 99TH PERCENTILE OF cTnI DISTRIBUTION IN A REFERENCE POPULATION, HAS BEEN CONFIRMED THE DECISION THRESHOLD FOR [place] DIAGNOSIS. Performed By: #### B FLYING TEACHER, CMADM, BMP #### [facility] [address] [place] [address] Dr. Divina Patino CIELO 21 ng/mL Normal 16-96 [facility] Comment on above: Performed By: #### B FLYING TEACHER, CMADM, BMP #### [facility] [address] [place] [address] Dr. Divina Patino CBC AUTO DIFFon 05-16-2022 BASO # 0.1 103/ul Normal 0.0-0.1 [facility] Comment on above: Performed By: #### C BC #### [facility] [address] [place] [address] Dr. Divina Patino Basophils/100 WBC (Bld) 0.6 % Normal 0.2-2.0 [facility] Comment on above: Performed By: #### C BC #### [facility] [address] [place] [address] Dr. Divina Patino EO # 0.3 103/ul Normal 0.0-0.7 [facility] Comment on above: Performed By: #### C BC #### [facility] [address] [place] [address] Dr. Divina Patino Eosinophils/100 WBC (Bld) 2.3 % Normal 0.9-7.0 [facility] Comment on above: Performed By: #### C BC #### [facility] [address] [place] [address] Dr. Divina Patino Erythrocyte distribution width (RBC) [Ratio] 12.3 % Normal 11.0-15.0 [facility] Comment on above: Performed By: #### C BC #### [facility] [address] [place] [address] Dr. Divina Patino Hematocrit (Bld) [Volume fraction] 41.6 % Critically low 42.0-54.0 [facility] Comment on above: Performed By: #### C BC #### [facility] [address] [place] [address] Dr. Divina Patino Hemoglobin (Bld) [Mass/Vol] 14.6 g/dL Normal 14.0-18.0 [facility] Comment on above: Performed By: #### C BC #### [facility] [address] [place] [address] Dr. Divina Patino IG # 0.12 10e3/ul Critically high 0.00-0.03 [facility] Comment on above: Performed By: #### C BC #### [facility] [address] [place] [address] [address] Divina Patino IG % 1.0 % Critically high 0.0-0.5 [facility] Comment on above: Performed By: #### C BC #### [facility] [address] [place] [address] Dr. Divina Patino LYMPH # 2.7 103/ul Normal 1.2-3.8 [facility] Comment on above: Performed By: #### C BC #### [facility] [address] [place] [address] Dr. Divina Patino Lymphocytes/100 WBC (Bld) 23.0 % Normal 20.5-60.0 [facility] Comment on above: Performed By: #### C BC #### [facility] [address] [place] [address] Dr. Divina Patino MANUAL DIFF REQ NO Normal [facility] Comment on above: Performed By: #### C BC #### [facility] [address] [place] [address] Dr. Divina Patino MCH (RBC) [Entitic mass] 30.0 pg Normal 25.9-34.0 [facility] Comment on above: Performed By: #### C BC #### [facility] [address] [place] [address] Dr. Divina Patino MCHC (RBC) [Mass/Vol] 35.1 g/dL Normal 29.9-35.2 [facility] Comment on above: Performed By: #### C BC #### [facility] [address] [place] [address] Dr. Divina Patino MCV (RBC) [Entitic vol] 85.6 fL Normal 80.0-94.0 [facility] Comment on above: Performed By: #### C BC #### [facility] [address] [place] [address] Dr. Divina Patino MONO # 1.0 103/ul Critically high 0.3-0.8 [facility] Comment on above: Performed By: #### C BC #### [facility] [address] [place] [address] Dr. Divina Patino Monocytes/100 WBC (Bld) 8.6 % Normal 1.7-12.0 [facility] Comment on above: Performed By: #### C BC #### [facility] [address] [place] [address] Dr. Divina Patino NEUT # 7.4 103/ul Critically high 1.4-6.5 [facility] Comment on above: Performed By: #### C BC #### [facility] [address] [place] [address] Dr. Divina Patino Neutrophils/100 WBC (Bld) 64.5 % Normal 43.0-75.0 [facility] Comment on above: Performed By: #### C BC #### [facility] [address] [place] [address] Dr. Divina Patino Platelet mean volume (Bld) [Entitic vol] 9.9 fL Normal 9.5-13.5 [facility] Comment on above: Performed By: #### C BC #### [facility] [address] [place] [address] Dr. Divina Patino PLT 231 103/ul Normal 150-450 [facility] Comment on above: Performed By: #### C BC #### [facility] [address] [place], [place] [id number] Dr. Divina Patino RBC 4.86 106/ul Normal 4.70-6.10 [facility] Comment on above: Performed By: #### C BC #### [facility] [address] [place] [address] Dr. Divina Patino WBC 11.5 103/ul Critically high 4.0-11.0 [facility] Comment on above: Performed By: #### C BC #### [facility] [address] [place] [address] [address] Divina Patino D-DIMERon 05-16-2022 D-DIMER 0.19 mg/L FEU Normal <=0.59 [facility] Comment on above: Performed By: #### D DIM #### [facility] [address] [place] [address] [address] Divina Patino D-DIMER COMMENTS SEE BELOW Normal [facility] Comment on above: Result Comment: Incr eases [...] hospitalization. Performed By: #### D DIM #### [facility] [address] [place] [address] [address] Divina Patino LACTATE/LACTIC ACIDon 2022 Lactate [Moles/Vol] 1.5 mmol/L Normal 0.4-1.9 [facility] Comment on above: Performed By: #### L ACT #### [facility] [address] [place] [address] [address] Divina Patino PROF CHEM 8 (BAS METB)on Anion gap [Moles/Vol] 13.7 mmol/L Normal [facility] Comment on above: Performed By: #### B FLYING TEACHER, CMADM, BMP #### [facility] [address] [place] [address] [address] Divina Patino Calcium [Mass/Vol] 8.7 mg/dL Normal 8.5-10.1 [facility] Comment on above: Performed By: #### B FLYING TEACHER, CMADM, BMP #### [facility] [address] [place] [address] [address] Divina Patino Chloride [Moles/Vol] 102 mmol/L Normal 98-107 [facility] Comment on above: Performed By: #### B FLYING TEACHER, CMADM, BMP #### [facility] [address] [place] [address] [address] Divina Patino CO2 [Moles/Vol] 27.1 mmol/L Normal 21.0-32.0 [facility] Comment on above: Performed By: #### B FLYING TEACHER, CMADM, BMP #### [facility] [address] [place] [address] Dr. Divina Patino Creatinine [Mass/Vol] 0.85 mg/dL Normal 0.70-1.30 [facility] Comment on above: Performed By: #### B FLYING TEACHER, CMADM, BMP #### [facility] [address] [place] [address] Dr. Divina Patino EGFR-AF HAITIAN >60 Normal >=60 [facility] Comment on above: Performed By: #### B FLYING TEACHER, CMADM, BMP #### [facility] [address] [place] [address] Dr. Divina Patino EGFR-NON AF HAITIAN >60 Normal >=60 [facility] Comment on above: Performed By: #### B FLYING TEACHER, CMADM, BMP #### [facility] [address] [place] [address] Dr. Divina Patino Glucose [Mass/Vol] 114 mg/dL Critically high 74-106 [facility] Comment on above: Performed By: #### B FLYING TEACHER, CMADM, BMP #### [facility] [address] [place] [address] Dr. Divina Patino Potassium [Moles/Vol] 3.8 mmol/L Normal 3.5-5.1 [facility] Comment on above: Performed By: #### B FLYING TEACHER, CMADM, BMP #### [facility] [address] [place] [address] Dr. Divina Patino Sodium [Moles/Vol] 139 mmol/L Normal 136-145 [facility] Comment on above: Performed By: #### B FLYING TEACHER, CMADM, BMP #### [facility] [address] [place] [address] Dr. Divina Patino Urea nitrogen [Mass/Vol] 15.0 mg/dL Normal 7.0-18.0 [facility] Comment on above: Performed By: #### B ESME ORTEGA BMP #### [facility] [address] [address] [address] Divina Patino Urea nitrogen/Creatinine [Mass ratio] 17.6 mg/mg Normal [facility] Comment on above: Performed By: #### B ESME ORTEGA BMP #### [facility] [address] [address] [address] Divina Patino XR CHEST 1 Von [...] AMAN PURCELL Date: 2022-05-15 23:20 Normal [facility] CARDIAC DAT ADMITon 023 CK [Catalytic activity/Vol] 78 U/L Normal 39-308 [facility] Comment on above: Performed By: #### L ACT #### [facility] [address] [place] [address] Dr. Divina Patino CK.MB [Mass/Vol] 1.08 ng/mL Normal <=3.60 [facility] Comment on above: Performed By: #### L ACT #### [facility] [address] [place] [address] Dr. Divina Patino HSTROP 12.2 pg/mL Normal 4.0-76.1 [facility] Comment on above: Result Comment: CUT- OFF POINTS HAVE BEEN ESTABLISHED BASED ON THE FOURTH UNIVERSAL DEFINITIONS OF MYOCARDIAL INFARCTION. THE UPPER REFERENCE LIMIT (URL) OF TROPONIN, DEFINED THE 99TH PERCENTILE OF cTnI DISTRIBUTION IN A REFERENCE POPULATION, HAS BEEN CONFIRMED THE DECISION THRESHOLD FOR [place] DIAGNOSIS. Performed By: #### L ACT #### [facility] [address] [place] [address] Dr. Divina Patino CIELO 24 ng/mL Normal 16-96 [facility] Comment on above: Performed By: #### L ACT #### [facility] [address] [place] [address] Dr. Divina Patino CBC AUTO DIFFon 05-11-2022 BASO # 0.1 103/ul Normal 0.0-0.1 [facility] Comment on above: Performed By: #### L ACT #### [facility] [address] [place] [address] Dr. Divina Patino Basophils/100 WBC (Bld) 0.6 % Normal 0.2-2.0 [facility] Comment on above: Performed By: #### L ACT #### [facility] [address] [place] [address] Dr. Divina Patino EO # 0.2 103/ul Normal 0.0-0.7 [facility] Comment on above: Performed By: #### L ACT #### [facility] [address] [place] [address] Dr. Divina Patino Eosinophils/100 WBC (Bld) 2.0 % Normal 0.9-7.0 [facility] Comment on above: Performed By: #### L ACT #### [facility] [address] [place] [address] Dr. Divina Patino Erythrocyte distribution width (RBC) [Ratio] 12.4 % Normal 11.0-15.0 [facility] Comment on above: Performed By: #### L ACT #### [facility] [address] [place] [address] Dr. Divina Patino Hematocrit (Bld) [Volume fraction] 43.8 % Normal 42.0-54.0 [facility] Comment on above: Performed By: #### L ACT #### [facility] [address] [place] [address] Dr. Divina Patino Hemoglobin (Bld) [Mass/Vol] 15.3 g/dL Normal 14.0-18.0 [facility] Comment on above: Performed By: #### L ACT #### [facility] [address] [place] [address] Dr. Divina Patino IG # 0.06 10e3/ul Critically high 0.00-0.03 [facility] Comment on above: Performed By: #### L ACT #### [facility] [address] [place] [address] Dr. Divina Patino IG % 0.6 % Critically high 0.0-0.5 [facility] Comment on above: Performed By: #### L ACT #### [facility] [address] [place] [address] Dr. Divina Patino LYMPH # 2.0 103/ul Normal 1.2-3.8 [facility] Comment on above: Performed By: #### L ACT #### [facility] [address] [place] [address] Dr. Divina Patino Lymphocytes/100 WBC (Bld) 19.9 % Critically low 20.5-60.0 [facility] Comment on above: Performed By: #### L ACT #### [facility] [address] [place] [address] Dr. Divina Patino MANUAL DIFF REQ NO Normal [facility] Comment on above: Performed By: #### L ACT #### [facility] [address] [place] [address] Dr. Divina Patino MCH (RBC) [Entitic mass] 30.2 pg Normal 25.9-34.0 [facility] Comment on above: Performed By: #### L ACT #### [facility] [address] [place] [address] Dr. Divina Patino MCHC (RBC) [Mass/Vol] 34.9 g/dL Normal 29.9-35.2 [facility] Comment on above: Performed By: #### L ACT #### [facility] [address] [place] [address] Dr. Divina Patino MCV (RBC) [Entitic vol] 86.6 fL Normal 80.0-94.0 [facility] Comment on above: Performed By: #### L ACT #### [facility] [address] [place] [address] Dr. Divina Patino MONO # 0.8 103/ul Normal 0.3-0.8 [facility] Comment on above: Performed By: #### L ACT #### [facility] [address] [address] [address] Divina Patino Monocytes/100 WBC (Bld) 7.7 % Normal 1.7-12.0 [facility] Comment on above: Performed By: #### L ACT #### [facility] [address] [address] [address] Divina Patino NEUT # 7.1 103/ul Critically high 1.4-6.5 [facility] Comment on above: Performed By: #### L ACT #### [facility] [address] [address] [address] Divina Patino Neutrophils/100 WBC (Bld) 69.2 % Normal 43.0-75.0 [facility] Comment on above: Performed By: #### L ACT #### [facility] [address] [place] [address] Dr. Divina Patino Platelet mean volume (Bld) [Entitic vol] 10.3 fL Normal 9.5-13.5 [facility] Comment on above: Performed By: #### L ACT #### [facility] [address] [place] [address] Dr. Divina Patino PLT 238 103/ul Normal 150-450 [facility] Comment on above: Performed By: #### L ACT #### [facility] [address] [place] [address] Dr. Divina Patino RBC 5.06 106/ul Normal 4.70-6.10 [facility] Comment on above: Performed By: #### L ACT #### [facility] [address] [place] [address] Dr. Divina Patino WBC 10.3 103/ul Normal 4.0-11.0 [facility] Comment on above: Performed By: #### L ACT #### [facility] [address] [place] [address] Dr. Divina Patino CRPon 05-11-2022 CRP [Mass/Vol] mg/L Normal <=1.0 [facility] Comment on above: Performed By: #### L ACT #### [facility] [id number] Divina Patino CT HEAD WO CONon [...] JAMES JOHNSTON Date: 2022-05-11 19:47 Normal [facility] SARS-CoV-2 (COVID-19) RNA JERRICA+probe Ql (Unsp spec) Not detected Normal NOT DETECTED [facility] Comment on above: Result Comment: When [...] for this test is supported by the Nitrogen Operator of Health and Human Service's declaration that [...] longer be used). Performed By: #### C VDTBH #### [facility] [address] [place], [place] [address] Dr. Divina Patino INFLUENZA A AND B AGon 05-11 INFLUANEGH SEE BELOW Normal [facility] Comment on above: Result Comment: Nega tive for Flu A protein angiten. Infection due to Flu A cannot be ruled out. Flu A angiten in the sample may be below the detection limit of the test. Performed By: #### I NFLUAB #### [facility] [address] [place] [address] Dr. Divina Pat[facility] SEE BELOW Normal [facility] Comment on above: Result Comment: Nega tive for Flu B protein antigen. Infection due to Flu B cannot be ruled out. Flu B antigen in the sample may be below the detection limit of the test. Performed By: #### I NFLUAB #### [facility] [address] [place] [address] Dr. Divina Patino INFLUENZA A AG Negative Normal NEGATIVE SEE COMMENT [facility] Comment on above: Performed By: #### I NFLUAB #### [facility] [address] [place] [address] Dr. Divina Patino INFLUENZA B AG Negative Normal NEGATIVE SEE COMMENT [facility] Comment on above: Performed By: #### I NFLUAB #### [facility] [address] [place] [address] Dr. Divina Patino LACTATE/LACTIC ACIDon 2022 Lactate [Moles/Vol] 1.8 mmol/L Normal 0.4-1.9 [facility] [place] [facility] Comment on above: Performed By: #### L ACT #### [facility] [address] [place] [address] Dr. Divina Patino MONOon 05-11-2022 Monocytes (Bld) [#/Vol] Negative Normal NEGATIVE [facility] Comment on above: Performed By: #### M LEANDRO #### [facility] [address] [place] [address] Dr. Divina Patino PROF CHEM 8 (BAS METB)on Anion gap [Moles/Vol] 12.8 mmol/L Normal [facility] Comment on above: Performed By: #### L ACT #### [facility] [address] [place] [address] Dr. Divina Patino Calcium [Mass/Vol] 9.1 mg/dL Normal 8.5-10.1 [facility] Comment on above: Performed By: #### L ACT #### [facility] [address] [place] [address] Dr. Divina Patino Chloride [Moles/Vol] 101 mmol/L Normal 98-107 [facility] Comment on above: Performed By: #### L ACT #### [facility] [address] [place] [address] Dr. Divina Patino CO2 [Moles/Vol] 26.9 mmol/L Normal 21.0-32.0 [facility] Comment on above: Performed By: #### L ACT #### [facility] [address] [place] [address] Dr. Divina Patino Creatinine [Mass/Vol] 0.90 mg/dL Normal 0.70-1.30 [facility] Comment on above: Performed By: #### L ACT #### [facility] [address] [place] [address] Dr. Divina Patino EGFR-AF HAITIAN >60 Normal >=60 [facility] Comment on above: Performed By: #### L ACT #### [facility] [address] [place] [address] Dr. Divina Patino EGFR-NON AF HAITIAN >60 Normal >=60 [facility] Comment on above: Performed By: #### L ACT #### [facility] [address] [place] [address] Dr. Divina Patino Glucose [Mass/Vol] 110 mg/dL Critically high 74-106 [facility] Comment on above: Performed By: #### L ACT #### [facility] [address] [place] [address] Dr. Divina Patino Potassium [Moles/Vol] 3.7 mmol/L Normal 3.5-5.1 [facility] Comment on above: Performed By: #### L ACT #### [facility] [address] [place] [address] Dr. Divina Patino Sodium [Moles/Vol] 137 mmol/L Normal 136-145 [facility] Comment on above: Performed By: #### L ACT #### [facility] [address] [address] [address] Divina Patino Urea nitrogen [Mass/Vol] 11.0 mg/dL Normal 7.0-18.0 [facility] Comment on above: Performed By: #### L ACT #### [facility] [address] [place], [place] [address] Dr. Divina Patino Urea nitrogen/Creatinine [Mass ratio] 12.2 mg/mg Normal [facility] Comment on above: Performed By: #### L ACT #### [facility] [address] [address] [address] Divina Patino SED RATE [facility] 2022 SED RATE 16 mm/hr Critically high <=15 [facility] Comment on above: Performed By: #### L ACT #### [facility] [address] [address] [address] Divina Patino TSHon 05-11-2022 TSH 3.949 uIU/mL Critically high 0.358-3.740 [facility] Comment on above: Performed By: #### L ACT #### [facility] [address] [address] [address] Divina Patino XR wrist RT min 3V*on 2021 XR wrist RT min 3V* [facility] [place] [address] [place] [address] XRay Report Signed Patient: Lawson Lopez MR#: [id number] : 1980 Acct:[id number] Age/Sex: 41 / M ADM Date: 12/17/21 Loc: ER Room: Type: [facility] ER Attending Dr: Copies to: GRISELDA [...] Maisha Smalls M.D.12/17/2021 10:14 AM Dictation Location: [place] [address] Transcribed By: [facility] 12/17/21 1014 Dictated By: Maisha Smalls MD 12/17/21 1013 Signed By: 12/17/21 1014 Normal [facility] COVID-19 Antigenon 2 COVID-19 Antigen Healthcare Worker?: [...] developed and its performance characteristic determined by [employer] and validated at [facility]. This test has not been FDA cleared [...] for SARS Antigen by ANURAG PERFORMED BY: [facility] [address] [place] [address] PATHOLOGIST HONING MACHINE SET UP OPERATOR BRICE STEPHEN M.D. Normal [facility] Comment on above: Performed By: #### C OVID-19 NOY, SOFIANEG ####[id number] [place] [address] [facility] COVID-19 SOFIAOrdered By: Andres Elizondo on 12-02-2021 SARS-CoV+SARS-CoV-2 (COVID-19) Ag IA.rapid Ql (Resp) Negative Negative [facility] Comment on above: This is a duplicate Noy SARS Antigen (ANURAG) result to be used for statistical tracking purpose only. No Panel InformationOrdered By: Elian Elizondo on 12-02-2021 SARS Antigen (LFIA) [facility] Noy Ag Negativeon 12-03-19 Noy Ag Negative Negative Normal Negative [facility] Comment on above: Result Comment: This is a duplicate Noy SARS Antigen (ANURAG) result to be used for statistical tracking purpose only. PERFORMED BY: [id number] PATHOLOGIST HONING MACHINE SET UP OPERATOR BRICE STEPHEN M.D. Performed By: #### C OVID-19 NOY, SOFIANEG ####[address] [address] [facility] XR chest 1V portableon 12-02 XR chest 1V portable [facility] [address] [id number] XRay Report Signed Patient: Lawson Lopez MR#: [id number] 168 : 1980 Acct:[id number] Age/Sex: 41 / M ADM Date: 12/02/21 Loc: ER Room: Type: [facility] ER Attending Dr: Copies to: Elian [...] FINDINGS Impression dictated by: Wayne Anguiano Jr., Yuly12/02/2021 3:51 PM Dictation Location: [place] [address] Transcribed By: [facility] 12/02/211550 Dictated By: Wayne Anguiano Jr, DO 12/02/21 1550 Signed By: 12/02/21 155 [facility] CBC with Auto Differentialon 06-08-2021 Absolute Eos # 0.11 [facility] [place] Absolute Immature Granulocyte 0.06 [facility] Absolute Lymph # 1.65 [facility] alth Absolute [place] # 1.03 [facility] Basophils (Bld) [#/Vol] 0.07 10*3/uL [facility] Basophils/100 WBC (Bld) 1 % 0 - 2 % [facility] Eosinophils/100 WBC (Bld) 1 % 1 - 4 % [facility] Hematocrit (Bld) [Volume fraction] 47.5 % 40.7 - 50.3 % [facility] Hemoglobin.gastroint estinal spec 1 Ql (Stl) 16.3 g/dL 13.0 - 17.0 g/dL [facility] Immature granulocytes/100 WBC (Bld) 1 % High 0 [facility] [employer] Interpretation and review of laboratory results Abnormal [facility] Lymphocytes/100 WBC (Bld) 14 % Low 24 - 43 % [facility] MCH (RBC) [Entitic mass] 30.5 pg 25.2 - 33.5 pg [facility] [employer] MCHC (RBC) [Mass/Vol] 34.3 g/dL 28.4 - 34.8 g/dL [facility] MCV (RBC) [Entitic vol] 89.0 fL 82.6 - 102.9 fL [facility] Monocytes/100 WBC (Bld) 9 % 3 - 12 % [facility] NRBC Automated 0.0 0.0 per 100 WBC [facility] Platelet distribution width (Bld) [Ratio] 12.5 % 11.8 - 14.4 % [facility] Platelet mean volume (Bld) [Entitic vol] 10.8 fL 8.1 - 13.5 fL [facility] Platelets (Bld) [#/Vol] 231 10*3/uL [facility] RBC (Bld) [#/Vol] 5.34 10*6/uL 4.21 - 5.77 m/uL [facility] Segmented neutrophils/100 WBC (Bld) 74 % High 36 - 65 % [facility] Segs Absolute 9.05 [facility] (Bld[facility] [#/Vol] 12.0 10*3/uL [facility] CT ABDOMEN PELVIS W IV CONTR AST Additional Contrast? Noneon 06-08-2021 Findings suspicious for acute enteritis. Diffuse hepatic steatosis. Nonobstructing stones in the left kidney. Normal appendix. [facility] EXAMINATION: CT OF THE ABDOMEN AND [...] COMPARISON: 02/05/2019 HISTORY: ORDERING SYSTEM PROVIDED HISTORY: [facility] pain TECHNOLOGIST PROVIDED HISTORY: [facility] pain Decision Support Exception - unselect if [...] aneurysm. Bones/Soft Tissues: Mild multilevel thoracolumbar spondylosis. [facility] Ok Rodgers MD - 06/08/2021 EXAMINATION: CT OF THE [...] COMPARISON: 02/05/2019 HISTORY: ORDERING SYSTEM PROVIDED HISTORY: [facility] pain TECHNOLOGIST PROVIDED HISTORY: [facility] pain Decision Support Exception - unselect if [...] stones in the left kidney. Normal appendix. [employer] Phone: Radiology Study observation (narrative) [employer] Phone: CT ABDOMEN PELVIS W IV CONTR AST Additional Contrast? NoneOrdered By: Ok Rodgers on 06-08-2021 [employer] Phone: Comprehensive Metabolic Pane karan 06-08-2021 Albumin [Mass/Vol] 4.6 g/dL 3.5 - 5.2 g/dL [facility] Albumin/Globulin [Mass ratio] 1.5 {ratio} [facility] ALP (Bld) [Catalytic activity/Vol] 90 U/L 40 - 129 U/L [facility] ALT [Catalytic activity/Vol] 37 U/L 5 - 41 U/L [facility] Anion gap [Moles/Vol] 10 mmol/L 9 - 17 mmol/L [facility] AST [Catalytic activity/Vol] 18 U/L <40 [facility] Bilirubin [Mass/Vol] 0.83 mg/dL 0.3 - 1.2 mg/dL [facility] Calcium [Mass/Vol] 9.7 mg/dL 8.6 - 10.4 mg/dL [facility] Chloride [Moles/Vol] 101 mmol/L 98 - 107 mmol/L [facility] CO2 [Moles/Vol] 29 mmol/L 20 - 31 mmol/L [facility] Creatinine [Mass/Vol] 0.83 mg/dL 0.70 - 1.20 mg/dL [facility] Free PSA/Total PSA [Mass fraction] 7.6 g/dL 6.4 - 8.3 g/dL [facility] GFR >60 >60 mL/min [facility] GFR Non- >60 >60 mL/min [facility] Glucose [Mass/Vol] 110 mg/dL High 70 - 99 mg/dL [facility] Interpretation and review of laboratory results Abnormal [facility] Potassium [Moles/Vol] 4.2 mmol/L 3.7 - 5.3 mmol/L [facility] Sodium [Moles/Vol] 140 mmol/L 135 - 144 mmol/L [facility] Urea nitrogen (BldV) [Mass/Vol] 10 mg/dL 6 - 20 mg/dL [facility] Urea nitrogen/Creatinine (Bld) [Mass ratio] 12 [facility] Laboratory - Chemistry and C hemistry - challengeon 06-08-2021 GFR/1.73 sq M.predicted MDRD (S/P/Bld) [Vol rate/Area] [facility] Comment on above: Average GFR for 40-4 9 years old: 99 mL/min/1.73sq m Chronic Kidney Disease: <60 mL/min/1.73sq m Kidney failure: <15 mL/min/1.73sq m eGFR calculated using average adult body mass. Additional eGFR calculator available at: http://www.[employer].Cubeit.fm/multiple_crcl_2012.htm Stage 1: Some kidney damage normal GFR Stage 2: Mild kidney damage GFR 60-89 Stage 3: Moderate kidney damage GFR 30-59 Stage 4: Severe kidney damage GFR 15-29 Stage 5: Severe kidney damage GFR <15 ESRD - chronic treatment by dialysis or transplant Lactic Acidon 06-08-2021 Lactate [Moles/Vol] 2.1 mmol/L 0.5 - 2.2 mmol/L [facility] Lipaseon 06-08-2021 Lipase [Catalytic activity/Vol] 30 U/L 13 - 60 U/L [facility] No Panel Informationon 06-08 [facility] Basic Metabolic Panelon Anion gap [Moles/Vol] 9 mmol/L 9 - 17 mmol/L [place] Bun/Cre Ratio 12 [place], [place] Calcium [Mass/Vol] 8.8 mg/dL 8.6 - 10.4 mg/dL [place] Chloride [Moles/Vol] 98 mmol/L 98 - 107 mmol/L [place] CO2 [Moles/Vol] 26 mmol/L 20 - 31 mmol/L [place] Creatinine [Mass/Vol] 1.04 mg/dL 0.7 - 1.2 mg/dL [place] GFR >60 >60 mL/min [place] GFR Non- >60 >60 mL/min [place] Glucose [Mass/Vol] 111 mg/dL High 70 - 99 mg/dL [place] Interpretation and review of laboratory results Abnormal [place] Potassium [Moles/Vol] 3.9 mmol/L 3.7 - 5.3 mmol/L [place] Sodium [Moles/Vol] 133 mmol/L Low 135 - 144 mmol/L [place] Urea nitrogen [Mass/Vol] 12 mg/dL 6 - 20 mg/dL [place] Brain Natriuretic Peptideon 03-19-2020 Natriuretic peptide B (Bld) [Mass/Vol] Pro-BNP Reference Range: [place] Comment on above: Rule Out: <300 Reis Zone: Age <50 300-450 Age 50-75 300-900 Age >75 300-1800 Usually represents mild to moderate HF but other cardiopulmonary causes cannot be ruled out. Rule In: Age <50 >450 Age 50-75 >900 Age >75 >1800 Natriuretic peptide B (Bld) [Mass/Vol] 60 pg/mL <300 [place] Comment on above: Pro-BNP results radha ot be compared to BNP results. CBC Auto Differentialon Basophils (Bld) [#/Vol] 0.04 10*3/uL [place] Basophils/100 WBC (Bld) 1 % 0 - 2 % [place] Differential Type NOT REPORTED [place] Eosinophils (Bld) [#/Vol] 0.04 10*3/uL [place] Eosinophils/100 WBC (Bld) 1 % 1 - 4 % [place] Erythrocyte distribution width (RBC) [Ratio] 12.5 % 11.8 - 14.4 % [place] Hematocrit (Bld) [Volume fraction] 48.2 % 40.7 - 50.3 % [place] Hemoglobin (Bld) [Mass/Vol] 16.3 g/dL 13 - 17 g/dL [place] Immature granulocytes (Bld) [#/Vol] 1 % High 0 [place] Immature granulocytes (Bld) [#/Vol] 0.07 10*3/uL [place] Interpretation and review of laboratory results Abnormal [place] Lymphocytes (Bld) [#/Vol] 1.10 10*3/uL [place] Lymphocytes/100 WBC (Bld) 13 % Low 24 - 43 % [place] MCH (RBC) [Entitic mass] 29.4 pg 25.2 - 33.5 pg [place] MCHC (RBC) [Mass/Vol] 33.8 g/dL 28.4 - 34.8 g/dL [place] MCV (RBC) [Entitic vol] 87.0 fL 82.6 - 102.9 fL [place] Monocytes (Bld) [#/Vol] 0.96 10*3/uL [place] Monocytes/100 WBC (Bld) 11 % 3 - 12 % [place] Platelet mean volume (Bld) [Entitic vol] 11.2 fL 8.1 - 13.5 fL [place] Platelets (Bld) [#/Vol] 175 10*3/uL [place] Platelets (Bld) [#/Vol] NOT REPORTED [place] RBC (Bld) [#/Vol] 5.54 10*6/uL 4.21 - 5.77 m/uL [place] RBC morphology finding Nom (Bld) NOT REPORTED [place] Segmented neutrophils/100 WBC (Bld) 73 % High 36 - 65 % [place] Segs Absolute 6.21 [place] WBC (Bld) [#/Vol] 8.4 10*3/uL [place] WBC (Bld) [#/Vol] 0.0 10*3/uL 0.0 per 100 WBC M [place] WBC Morphology NOT REPORTED [place] COVID-19, PCRon 03-19-2020 Interpretation and review of laboratory results Abnormal [place] SARS-CoV-2, Rapid DETECTED Abnormal Not Detected [place] Comment on above: Rapid NAAT: The [...] this assay. Fact sheet for Healthcare Providers: https://www.fda.gov/media/114720/download Fact sheet for Patients: https://www.fda.gov/media/611674/download Methodology: Isothermal Nucleic Acid Amplification Results reported to the appropriate Health Department Source .NASOPHARYNGEAL SWAB [place] CT CHEST PULMONARY EMBOLISM W CONTRASTon 03-19-2020 1. No pulmonary embolism. 2. Multifocal ground-glass opacities in the bilateral lungs with overall pattern of concern for underlying viral pneumonitis. 3. Hepatomegaly and diffuse steatosis in the abdomen, stable from remote imaging. [place] Tito, [facility] Incoming Radiant Results From [employer] - 03/19/2020 8:26 PM EST EXAMINATION: CTA [...] in the abdomen, stable from remote imaging. [place] EXAMINATION: CTA OF THE CHEST 03/19/2020 [...] Tissues/Bones: No skeletal abnormalities throughout the chest. [place] Lactic Acid, Plasmaon 2020 Lactate [Moles/Vol] 1.2 mmol/L 0.5 - 2.2 mmol/L [place] Lactic Acid, Whole Blood NOT REPORTED 0.7 - 2.1 mmol/L [place] Metabolic Panelon 03-19-2020 GFR/1.73 sq M predicted among non-blacks MDRD (S/P/Bld) [Vol rate/Area] [place] Comment on above: Average GFR for 40-4 9 years old: 99 mL/min/1.73sq m Chronic Kidney Disease: <60 mL/min/1.73sq m Kidney failure: <15 mL/min/1.73sq m eGFR calculated using average adult body mass. Additional eGFR calculator available at: http://www.SIMPLEROBB.COM/multiple_crcl_2012.htm Stage 1: Some kidney damage normal GFR Stage 2: Mild kidney damage GFR 60-89 Stage 3: Moderate kidney damage GFR 30-59 Stage 4: Severe kidney damage GFR 15-29 Stage 5: Severe kidney damage GFR <15 ESRD - chronic treatment by dialysis or transplant Otheron 03-19-2020 SARS-CoV-2 [place] Rapid influenza A/B antigens on 03-19-2020 Direct Exam NEGATIVE for Influenza A + B antigens. PCR testing to confirm this result is available upon request. Specimen will be saved in the laboratory for 7 days. Please call [phone] if PCR testing is indicated. [place] Special Requests NOT REPORTED [place] Specimen Description .NASOPHARYNGEAL SWAB [place] Troponinon 03-19-2020 Troponin I.cardiac [Mass/Vol] NOT REPORTED [place] Troponin T.cardiac [Mass/Vol] NOT REPORTED <0.03 ng/mL [place] Troponin, High Sensitivity 15 ng/L 0 - 22 ng/L [place] Comment on above: High Sensitivity Troponin values cannot be compared with other Troponin methodologies. Patients with high levels of Biotin oral intake (i.e >5mg/day) may have falsely decreased Troponin levels. Samples collected within 8 hours of biotin intake may require additional information for diagnosis. XR CHEST PORTABLEon 03-19-19 21 Tito, pn Incoming Radiant Results From [facility] - 03/19/2020 6:06 PM EST EXAMINATION: ONE XRAY VIEW OF THE CHEST 03/19/2020 5:58 pm COMPARISON: June 27, 2018 HISTORY: ORDERING SYSTEM PROVIDED HISTORY: dyspnea TECHNOLOGIST PROVIDED HISTORY: dyspnea FINDINGS: Mild edema. Heart and mediastinum normal. Bony thorax intact. IMPRESSION: Mild edema or pneumonitis [place] EXAMINATION: ONE XRAY VIEW OF THE CHEST 03/19/2020 5:58 pm COMPARISON: June 27, 2018 HISTORY: ORDERING SYSTEM PROVIDED HISTORY: dyspnea TECHNOLOGIST PROVIDED HISTORY: dyspnea FINDINGS: Mild edema. Heart and mediastinum normal. Bony thorax intact. [place] Mild edema or pneumonitis [place] Otheron 10-21-2019 No acute abnormalities seen in the left foot or left ankle [place] EXAMINATION: THREE XRAY VIEWS OF THE [...] medial malleolus most likely from old trauma. [place] Tito, [facility] Incoming Radiant Results From [facility] - 10/21/2019 4:26 PM EDT EXAMINATION: THREE [...] in the left foot or left ankle [place] Basic Metabolic Panel w/ Ref katrin to MGon 02-06-2019 Anion gap [Moles/Vol] 13 mmol/L 9 - 17 mmol/L [place] Bun/Cre Ratio 16 [place] Calcium [Mass/Vol] 8.4 mg/dL Low 8.6 - 10.4 mg/dL [place] Chloride [Moles/Vol] 99 mmol/L 98 - 107 mmol/L [place] CO2 [Moles/Vol] 23 mmol/L 20 - 31 mmol/L [place] Creatinine [Mass/Vol] 0.94 mg/dL 0.7 - 1.2 mg/dL [place] GFR >60 >60 mL/min [place] GFR Non- >60 >60 mL/min [place] Glucose [Mass/Vol] 130 mg/dL High 70 - 99 mg/dL [place] Interpretation and review of laboratory results Abnormal [place] Potassium [Moles/Vol] 3.7 mmol/L 3.7 - 5.3 mmol/L [place] Sodium [Moles/Vol] 135 mmol/L 135 - 144 mmol/L [place] Urea nitrogen [Mass/Vol] 15 mg/dL 6 - 20 mg/dL [place] CBCon 02-06-2019 Erythrocyte distribution width (RBC) [Ratio] 12.5 % 11.8 - 14.4 % [place] Hematocrit (Bld) [Volume fraction] 45.4 % 40.7 - 50.3 % [place] Hemoglobin (Bld) [Mass/Vol] 15.1 g/dL 13 - 17 g/dL [place] MCH (RBC) [Entitic mass] 29.8 pg 25.2 - 33.5 pg [place] MCHC (RBC) [Mass/Vol] 33.3 g/dL 28.4 - 34.8 g/dL [place] MCV (RBC) [Entitic vol] 89.5 fL 82.6 - 102.9 fL [place] Platelet mean volume (Bld) [Entitic vol] 10.4 fL 8.1 - 13.5 fL [place] Platelets (Bld) [#/Vol] 198 10*3/uL [place] RBC (Bld) [#/Vol] 5.07 10*6/uL 4.21 - 5.77 m/uL [place] WBC (Bld) [#/Vol] 0.0 10*3/uL 0.0 per 100 WBC M [place] WBC (Bld) [#/Vol] 10.7 10*3/uL [place] Culture Stoolon 02-06-2019 Campylobacter PCR NEGATIVE: No Campylobacter spp. (jejuni or coli) DNA Detected NEGATIVE: No Campylobacter spp. (jejuni or coli) DNA Detecte [place] E Coli Enterotoxigenic PCR NEGATIVE: No Enterotoxigenic E. coli (ETEC) Heat-labile and heat-stable (LT/ST) DNA Detected NEGATIVE: No Enterotoxigenic E. coli (ETEC) Heat-labile and [place] Plesiomonas Shigelloides PCR Negative NEGATIVE: No Plesionomas shigelloides DNA Detected [place] Salmonella PCR Negative NEGATIVE: No Salmonella spp. DNA Detected [place] Shigatoxin Gene PCR Negative NEGATIVE : No Shiga toxin-producing gene(s) Detected [place] Shigella Sp PCR Negative NEGATIVE: No Shigella spp. / EIEC DNA Detected [place] Specimen Description .FECES [place] Vibrio PCR NEGATIVE: No Vibrio (V. vulnificus, V, parahaemolyticus and V. cholerae) DNA Detected NEGATIVE: No Vibrio (V. vulnificus, V, parahaemolyticus and [place] Yersinia Enterocolitica PCR Negative NEGATIVE: No Yersinia enterocolitica DNA Detected [place] Metabolic Panelon 02-06-2019 GFR/1.73 sq M predicted among non-blacks MDRD (S/P/Bld) [Vol rate/Area] [place] Comment on above: Stage 1: Some [...] body mass. Additional eGFR calculator available at: http://www.SIMPLEROBB.COM/multiple_crcl_2012.htm Microscopic Urinalysison Amorphous, UA NOT REPORTED None [place], [place] Bacteria, UA TRACE Abnormal None [place], [place] Casts UA NOT REPORTED /LPF [place] Crystals UA NOT REPORTED None /HPF [place] Epithelial Cells UA 0 TO 2 [place] Interpretation and review of laboratory results Abnormal [place] Mucus, UA TRACE Abnormal None [place] Other Observations UA NOT REPORTED NOT REQ. [place] RBC (U) [#/Vol] 0 TO 2 [place], [place] Renal Epithelial, Urine NOT REPORTED 0 /HPF [place] Trichomonas, UA NOT REPORTED None [place], [place] WBC, UA None [place] Yeast, UA NOT REPORTED None [place], [place] - [place] Urinalysis Reflex to Culture on 02-06-2019 Bilirubin Urine Negative NEGATIVE [place] Color, UA YELLOW YELLOW [place] Glucose, Ur Negative NEGATIVE [place] Interpretation and review of laboratory results Abnormal [place] Ketones Ql (U) TRACE Abnormal NEGATIVE [place], [place] Leukocyte esterase Test strip Ql (U) Negative NEGATIVE [place] Nitrite, Urine Negative NEGATIVE [place] pH, UA 5.5 [place] Protein (U) [Mass/Vol] TRACE Abnormal NEGATIVE [place] Specific [place], UA >1.030 High [place], [place] Turbidity UA CLEAR CLEAR [place], [place] Urinalysis Comments NOT REPORTED [place] Urine Hgb 1+ Abnormal NEGATIVE [place] Urobilinogen, Urine Normal Normal [place] C DIFF TOXIN/ANTIGENon 02-05 C DIFF AG + TOXIN Negative NEGATIVE [place] Comment on above: No C. difficile anti gen and Toxin Detected. Specimen Description .FECES [place] CBCon 02-05-2019 Erythrocyte distribution width (RBC) [Ratio] 12.0 % 11.8 - 14.4 % [place] Hematocrit (Bld) [Volume fraction] 49.7 % 40.7 - 50.3 % [place] Hemoglobin (Bld) [Mass/Vol] 17.2 g/dL High 13 - 17 g/dL [place] Interpretation and review of laboratory results Abnormal [place] MCH (RBC) [Entitic mass] 30.4 pg 25.2 - 33.5 pg [place] MCHC (RBC) [Mass/Vol] 34.6 g/dL 28.4 - 34.8 g/dL [place] MCV (RBC) [Entitic vol] 87.8 fL 82.6 - 102.9 fL [place] Platelet mean volume (Bld) [Entitic vol] 10.8 fL 8.1 - 13.5 fL [place] Platelets (Bld) [#/Vol] 233 10*3/uL [place] RBC (Bld) [#/Vol] 5.66 10*6/uL 4.21 - 5.77 m/uL [place] WBC (Bld) [#/Vol] 15.0 10*3/uL [place], [place] WBC (Bld) [#/Vol] 0.0 10*3/uL 0.0 per 100 WBC [place] CT ABDOMEN PELVIS W IV CONTR AST Additional Contrast? Noneon 02-05-2019 Tito, [facility] Incoming Radiant Results From [employer] - 02/05/2019 6:20 PM EST EXAMINATION: CT [...] pathologic adenopathy. Bones/Soft Tissues: Normal IMPRESSION: [place] [place] EXAMINATION: CT OF THE ABDOMEN AND [...] is no pathologic adenopathy. Bones/Soft Tissues: Normal [place] Ileus [place] Comprehensive Metabolic Pane karan 02-05-2019 Albumin [Mass/Vol] 4.6 g/dL 3.5 - 5.2 g/dL [place] Albumin/Globulin [Mass ratio] 1.4 {ratio} [place] ALP [Catalytic activity/Vol] 88 U/L 40 - 129 U/L [place] ALT [Catalytic activity/Vol] 43 U/L High 5 - 41 U/L [place] Anion gap [Moles/Vol] 19 mmol/L High 9 - 17 mmol/L [place] AST [Catalytic activity/Vol] 23 U/L <40 [place] Bilirubin Ql (U) 1.37 mg/dL High 0.3 - 1.2 mg/dL [place] Bun/Cre Ratio 16 [place] Calcium [Mass/Vol] 9.4 mg/dL 8.6 - 10.4 mg/dL [place] Chloride [Moles/Vol] 96 mmol/L Low 98 - 107 mmol/L [place] CO2 [Moles/Vol] 21 mmol/L 20 - 31 mmol/L [place] Creatinine [Mass/Vol] 0.9 mg/dL 0.7 - 1.2 mg/dL [place] GFR >60 >60 mL/min [place] GFR Non- >60 >60 mL/min [place] Glucose [Mass/Vol] 119 mg/dL High 70 - 99 mg/dL [place] Interpretation and review of laboratory results Abnormal [place] Potassium [Moles/Vol] 4.2 mmol/L 3.7 - 5.3 mmol/L [place] Protein [Mass/Vol] 8.0 g/dL 6.4 - 8.3 g/dL [place] Sodium [Moles/Vol] 136 mmol/L 135 - 144 mmol/L [place] Urea nitrogen [Mass/Vol] 14 mg/dL 6 - 20 mg/dL [place] Lactic Acid, Plasmaon 2018 Interpretation and review of laboratory results Abnormal [place] Lactate [Moles/Vol] 2.4 mmol/L High 0.5 - 2.2 mmol/L [place] Lactic Acid, Whole Blood NOT REPORTED 0.7 - 2.1 mmol/L [place] Lipaseon 02-05-2019 Lipase [Catalytic activity/Vol] 32 U/L 13 - 60 U/L [place] Metabolic Panelon 02-05-2019 GFR/1.73 sq M predicted among non-blacks MDRD (S/P/Bld) [Vol rate/Area] [place] Comment on above: Average GFR for 40-4 9 years old: 99 mL/min/1.73sq m Chronic Kidney Disease: <60 mL/min/1.73sq m Kidney failure: <15 mL/min/1.73sq m eGFR calculated using average adult body mass. Additional eGFR calculator available at: http://www.SIMPLEROBB.COM/multiple_crcl_2012.htm Stage 1: Some kidney damage normal GFR Stage 2: Mild kidney damage GFR 60-89 Stage 3: Moderate kidney damage GFR 30-59 Stage 4: Severe kidney damage GFR 15-29 Stage 5: Severe kidney damage GFR <15 ESRD - chronic treatment by dialysis or transplant Vital Signs Date Time Vital Sign Value Performing Clinician Rocíoi saqib 10-11-2022 15:03-0400 Diastolic blood pressure 81 mm[Hg] PHYSICIAN NO [facility] 10-11-2022 15:03-0400 Heart rate 75 /min PHYSICIAN NO [facility] 10-11-2022 15:03-0400 Respiratory rate 20 /min PHYSICIAN NO [facility] 10-11-2022 15:03-0400 SaO2% (BldA) [Mass fraction] 97 % PHYSICIAN NO [facility] 10-11-2022 15:03-0400 Systolic blood pressure 146 mm[Hg] PHYSICIAN NO [facility] 10-11-2022 12:17-0400 Body temperature 98.3 [degF] PHYSICIAN NO [facility] 10-11-2022 12:12-0400 Body height 175.26 cm PHYSICIAN NO [facility] 10-11-2022 12:12-0400 Body weight 128.6 kg PHYSICIAN NO [facility] 08-18-2022 12:04-0400 Body temperature 97.9 [degF] PHYSICIAN NO [facility] 08-18-2022 11:58-0400 Body height 177.8 cm PHYSICIAN NO [facility] 08-18-2022 11:58-0400 Body weight 129.36 kg PHYSICIAN NO [facility] 08-18-2022 11:58-0400 Diastolic blood pressure 115 mm[Hg] PHYSICIAN NO [facility] 08-18-2022 11:58-0400 Heart rate 107 /min PHYSICIAN NO [facility] 08-18-2022 11:58-0400 Respiratory rate 20 /min PHYSICIAN NO [facility] 08-18-2022 11:58-0400 SaO2% (BldA) [Mass fraction] 97 % PHYSICIAN NO [facility] 08-18-2022 11:58-0400 Systolic blood pressure 159 mm[Hg] PHYSICIAN NO [facility] 12-19-2021 18:32-0400 Body temperature 98.1 [degF] PHYSICIAN NO [facility] 12-19-2021 18:32-0400 Diastolic blood pressure 105 mm[Hg] PHYSICIAN NO [facility] 12-19-2021 18:32-0400 Heart rate 106 /min PHYSICIAN NO [facility] 12-19-2021 18:32-0400 Respiratory rate 20 /min PHYSICIAN NO [facility] 12-19-2021 18:32-0400 SaO2% (BldA) [Mass fraction] 96 % PHYSICIAN NO [facility] 12-19-2021 18:32-0400 Systolic blood pressure 153 mm[Hg] PHYSICIAN NO [facility] 12-19-2021 17:44-0400 Body height 177.8 cm PHYSICIAN NO [facility] 12-19-2021 17:44-0400 Body weight 134.55 kg PHYSICIAN NO [facility] 12-17-2021 09:40-0400 Body height 177.8 cm PHYSICIAN NO [facility] 12-17-2021 09:40-0400 Body temperature 98.1 [degF] PHYSICIAN NO [facility] 12-17-2021 09:40-0400 Body weight 134 kg PHYSICIAN NO [facility] 12-17-2021 09:40-0400 Diastolic blood pressure 108 mm[Hg] PHYSICIAN NO [facility] 12-17-2021 09:40-0400 Heart rate 114 /min PHYSICIAN NO [facility] 12-17-2021 09:40-0400 Respiratory rate 20 /min PHYSICIAN NO [facility] 12-17-2021 09:40-0400 SaO2% (BldA) [Mass fraction] 98 % PHYSICIAN NO [facility] 12-17-2021 09:40-0400 Systolic blood pressure 171 mm[Hg] PHYSICIAN NO [facility] 12-02-2021 14:50-0400 Body height 177.8 cm PHYSICIAN NO [facility] 12-02-2021 14:50-0400 Body temperature 98.6 [degF] PHYSICIAN NO [facility] 12-02-2021 14:50-0400 Body weight 133.2 kg PHYSICIAN NO [facility] 12-02-2021 14:50-0400 Diastolic blood pressure 102 mm[Hg] PHYSICIAN NO [facility] 12-02-2021 14:50-0400 Heart rate 117 /min PHYSICIAN NO [facility] 12-02-2021 14:50-0400 Respiratory rate 18 /min PHYSICIAN NO [facility] 12-02-2021 14:50-0400 SaO2% (BldA) [Mass fraction] 98 % PHYSICIAN NO [facility] 12-02-2021 14:50-0400 Systolic blood pressure 174 mm[Hg] PHYSICIAN NO [facility] 06-08-2021 14:28-0400 Heart rate 117 /min Fatoumatabeto Sanchez APRN - PAINTING [employer]OR Work Phone: [employer] 06-08-2021 14:28-0400 SaO2% (BldA) [Mass fraction] 95 % Fatoumata Laura OXIDE FURNACE TENDER - PAINTING [employer]OR Work Phone: [employer] 06-08-2021 14:22-0400 Body height 177.8 cm Fatoumata Laura OXIDE FURNACE TENDER - [employer]ING [employer] Work Phone: [employer] 06-08-2021 14:22-0400 Body mass index (BMI) [Ratio] 44.77 kg/m2 Fatoumata Laura OXIDE FURNACE TENDER - [employer]ING [employer] Work Phone: [employer] 06-08-2021 14:22-0400 Body temperature 98.1 [degF] Fatoumata Laura OXIDE FURNACE TENDER - [employer]ING [employer]OR Work Phone: [employer] 06-08-2021 14:22-0400 Body weight 141.52 kg Fatoumata Laura OXIDE FURNACE TENDER - [employer]ING [employer]OR Work Phone: [employer] 06-08-2021 14:22-0400 Diastolic blood pressure 120 mm[Hg] Fatoumata Laura OXIDE FURNACE TENDER - [employer]ING [employer]OR Work Phone: [employer] 06-08-2021 14:22-0400 Respiratory rate 18 /min Fatoumata Laura OXIDE FURNACE TENDER - [employer]ING [employer]OR Work Phone: [employer] 06-08-2021 14:22-0400 Systolic blood pressure 170 mm[Hg] Fatoumata Kelly OXIDE FURNACE TENDER - [employer]ING [employer]OR Work Phone: [employer] 03-19-2020 23:45-0500 BP Diastolic 101 mm[Hg] [employer] , [place] 03-19-2020 23:45-0500 BP Systolic 148 mm[Hg] [employer] , [place] 03-19-2020 23:45-0500 Pulse (Heart Rate) 117 /min [employer], [place] 03-19-2020 23:45-0500 Pulse Oximetry 94 % [employer] , [place] 03-19-2020 23:45-0500 Respiratory Rate 23 /min [facility] [place] 03-19-2020 19:57-0500 Body Temperature 99.9 [degF] [facility] [place] 03-19-2020 17:38-0500 BMI (Body Mass Index) 45.92 kg/m2 [facility] 03-19-2020 17:38-0500 Body weight 145.15 kg [facility] , [place] 03-19-2020 17:38-0500 Height 177.8 cm [facility] , [place] 10-21-2019 17:46-0400 BP Diastolic 103 mm[Hg] [facility] [place] 10-21-2019 17:46-0400 BP Systolic 163 mm[Hg] [facility] [place] 10-21-2019 17:37-0400 Pulse (Heart Rate) 109 /min [facility] 10-21-2019 17:37-0400 Respiratory Rate 18 /min [facility] 10-21-2019 16:02-0400 BMI (Body Mass Index) 44.3 kg/m2 [facility] 10-21-2019 16:02-0400 Body Temperature 97 [degF] [facility] 10-21-2019 16:02-0400 Body weight 136.08 kg [facility] , [place] 10-21-2019 16:02-0400 Pulse Oximetry 96 % [facility] , [place] 02-07-2019 08:18-0500 Body Temperature 97.7 [degF] Dat Jean Baptiste [facility] [place] 02-07-2019 08:18-0500 BP Diastolic 102 mm[Hg] Dat [facility] , [place] 02-07-2019 08:18-0500 BP Systolic 132 mm[Hg] Dat Jean Baptiste [facility] , [place] 02-07-2019 08:18-0500 Pulse (Heart Rate) 76 /min Dat Jean Baptiste [facility], [place] 02-07-2019 08:18-0500 Pulse Oximetry 96 % Dat Jean Baptiste [facility] , [place] 02-07-2019 08:18-0500 Respiratory Rate 16 /min Dat Jean Baptiste [facility] , [place] 02-07-2019 04:51-0500 BMI (Body Mass Index) 42.06 kg/m2 Dat [facility], [place] 02-07-2019 04:51-0500 Body weight 129.18 kg Dat [facility] , [place] 02-06-2019 08:10-0500 Height 175.3 cm Dat [facility] , [place] Encounters Encounter Date Encounter Type Care Provider Facility Start: 07-04-2023 End: 07-04-2023 Emergency department patient visit [facility] Start: 11-17-2022 End: 11-17-2022 ambulatory AB [facility] Start: 10-31-2022 End: 10-31-2022 ambulatory AB [facility] Start: 10-11-2022 End: 10-11-2022 Emergency department patient visit Isabel Rodas Facility:[facility] Start: 10-11-2022 End: 10-11-2022 Emergency department patient visit PHYSICIAN NO [facility] Work Phone: Start: 08-18-2022 End: 08-18-2022 Emergency department patient visit Kris Morales Facility:[facility] Start: 08-18-2022 End: 08-18-2022 Emergency department patient visit PHYSICIAN NO [facility] Work Phone: Start: 05-15-2022 End: 05-16-[address] NONE LISTED REQUEST Facility:[facility] Start: 05-11-2022 End: 05-11-[address] NONE LISTED REQUEST Facility:[facility] Start: 01-21-2022 End: 01-21-2022 ambulatory PHYSICIAN NO [facility] Work Phone: Start: 01-21-2022 End: 01-21-2022 Discharged Recurring PHYSICIAN NO [facility] [address] Start: 12-19-2021 End: 12-19-2021 Emergency department patient visit PHYSICIAN NO FAMILY Facility:[facility] Start: 12-19-2021 End: 12-19-2021 Emergency department patient visit PHYSICIAN NO [facility] Start: 12-17-2021 End: 12-17-2021 Emergency department patient visit Jenelle Judge Facility:[facility] Start: 12-17-2021 End: 12-17-2021 Emergency department patient visit PHYSICIAN NO FAMILY [facility] Start: 12-02-2021 End: 12-02-2021 Emergency department patient visit Elian Elizondo Facility:[facility] Start: 12-02-2021 End: 12-02-2021 Emergency department patient visit PHYSICIAN NO FAMILY [facility] Start: 06-08-2021 End: 06-08-2021 Emergency department patient visit Fatoumata Sanchez O[employer]IDE F[employer]NACE TENDER - [employer] Work Phone: [facility] ED Comment on above: Enteritis (Primary D x) Start: 03-19-2020 End: 03-20-2020 Emergency department patient visit [facility] ED Comment on above: COVID-19 (Primary Dx ) Start: 10-21-2019 End: 10-21-2019 Emergency department patient visit [facility] ED Comment on above: Left Achilles tendin itis (Primary Dx) Start: 02-05-2019 End: 02-07-2019 Evaluation and management of inpatient Dat Jean Baptiste [facility] Comment on above: Ileus (HCC) (Primary Dx) Procedures Date Procedure Procedure Detail Performing Clinician Start: 10-11-2022 Plain chest X-ray PHYSI FELA NO FAMILY Start: 08-18-2022 CT of head without contrast PHYSICIAN NO FAMILY Start: 12-17-2021 Plain X-ray of right wrist PHYSICIAN NO FAMILY Start: 12-02-2021 Plain chest X-ray PHYSI FELA NO FAMILY Start: 06-08-2021 Ct abdomen & pelvis w/contrast material Fatoumata Sanchez OXIDE FURNACE TENDER - [employer]ING [employer] Work Phone: Start: 06-08-2021 Comprehensive metabo lic panel Fatoumata Sanchez OXIDE F[employer]NACE TENDER - [employer]ING [employer]OR Work Phone: Start: 03-19-2020 Ct thorax w/contrast material Arabella Blandon Work Phone: Start: 03-19-2020 COVID-19 Arabella he Work Phone: Start: 03-19-2020 Iaadiadoo influenza [facility] awais Blandon Work Phone: Start: 03-19-2020 Assay of lactate Arabella Blandon Work Phone: Start: 03-19-2020 Assay of troponin quantitative Hari Peraltazpatrick Start: 03-19-2020 Basic metabolic pane l calcium total Hari Peraltazpatrick Start: 03-19-2020 Blood count complete auto&auto difrntl wbc Hari Peraltazpatrick Start: 03-19-2020 Natriuretic peptide Maico stephani Amezcua Rodriguez Start: 03-19-2020 Radiologic exam ches t single view Hrai Peraltazpatrick Start: 03-19-2020 Ecg routine ecg w/le ast [...] 02-05-2019 Toxin/antitoxin assa y tissue culture Arabella Barber Work Phone: Start: 02-05-2019 Ct abdomen & pelvis w/contrast material Arabella Blandon Work Phone: Start: 02-05-2019 Assay of lactate Arabella Blandon Work Phone: Start: 02-05-2019 Assay of lipase Arabella chaudhary Work Phone: Start: 02-05-2019 Blood count complete automated Arabella Blandon Work Phone: Start: 02-05-2019 Comprehensive metabo lic panel Arabella Barber Work Phone: SARS Antigen (LFIA) PHYSICIA N NO FAMILY Plan of Treatment Date Care Activity Detail Author Start: 06-08-2022 Creatinine measurement Creatinine mo [facility] Start: 06-08-2022 Potassium monitoring Potassium monit [facility] Start: 03-19-2021 Creatinine measurement Creatinine [place] Start: 03-19-2021 Potassium monitoring Potassium monit [place] Start: 11-11-2020 Influenza vaccination Flu vaccine (# 1) [facility] Start: 02-07-2020 Creatinine measurement Creatinine mo [place] Start: 02-07-2020 Potassium monitoring Potassium monit [place] Start: 11-12-2019 Influenza vaccination Flu vaccine (# 1) [place] Start: 06-28-2019 Creatinine monitoring Creatinine mon [place] Start: 06-28-2019 Potassium monitoring Potassium monit [place] Start: 11-11-2018 Influenza vaccination Flu vaccine (# 1) [place] Start: 2018 Diabetes screen Diabetes screen [place], [place] Start: 2018 Lipid panel Lipid screen [facility] Start: 2018 Lipid screen Lipid screen [place], [place] Start: 2013 Diabetes screen Diabetes screen [facility] Start: 1997 DTaP/Tdap/Td vaccine (1 - Tdap) DTaP/Tdap/Td vaccine (1 - Tdap) [facility] Start: 1993 HIV screen HIV screen [place], [place] Start: 1993 HIV screening HIV screen [facility] Start: 1990 Depression Screen Depression Screen [facility] Start: 1989 DTaP/Tdap/Td vaccine (1 - Tdap) DTaP/Tdap/Td vaccine (1 - Tdap) [place], [place] Start: 1983 COVID-19 Vaccine (1) COVID-19 Vaccin e (1) [facility] Start: 1978 Hepatitis C screening Hepatitis C sc reen [facility] End: 03-19-2020 Culture, Blood 1 Culture, Blood 1 Microbiology STAT One Time for 1 Occurrences starting 03/19/2020 until 03/19/2020 [place], [place] Comment on above: One Time for 1 Occur rences starting 03/19/2020 until 03/19/2020 Culture, Blood 1 Culture, Blood 1 Microbiology STAT 03/19/2020 6:00 PM [place], [place] EKG 12 Lead EKG 12 Lead ECG STAT 03/19/2020 5:53 PM EST [place], [place] Initiate Oxygen Ther apy Protocol Initiate Oxygen Therapy Protocol Respiratory Care Routine Daily until discontinued starting 02/05/2019 [place] Comment on above: Daily until disconti nued starting 02/05/2019 Nasal Cannula Oxygen Nasal Cannu la Oxygen Respiratory Care STAT Daily until discontinued starting 03/19/2020 [place] Comment on above: Daily until disconti nued starting 03/19/2020 Patient Education [facility] Work Phone: Patient referral [facility] Work Phone: End: 02-05-2019 Pulse Oximetry Spot Check Pulse Oximetry Spot Check Respiratory Care Routine One Time for 1 Occurrences starting 02/05/2019 until 02/05/2019 [place] Comment on above: One Time for 1 Occur rences starting 02/05/2019 until 02/05/2019 End: 06-08-2021 Urinalysis with Microscopic Urinalysis with Microscopic Lab STAT One Time for 1 Occurrences starting 06/08/2021 until 06/08/2021 [facility] Work Phone: Comment on above: One Time for 1 Occur rences starting 06/08/2021 until 06/08/2021 Payers Date Payer Category Payer Unknown [id number] 1980 Unknown [id number] [id number] 1961 Self-pay 1959 Worker's Compensation [id number] Unknown [id number] 2.16.8 [id number] Unknown [id number] 2.16.8 [id number] Unknown [id number] 2.16.8 [id number] Unknown [id number] 2.16.8 [id number] Unknown [id number] [id number] [id number] Unknown [id number] 2.16.8 [id number] Social History Date Type Detail Facility Start: 10-21-2019 End: 10-11-2022 Tobacco smoking status NHIS Former smoker [place], [place] Start: 04-05-2015 End: 10-21-2019 Tobacco use and exposure Never used [place] Start: 10-21-2019 End: 06-08-2021 Alcohol intake Current non-drinker of alcohol (finding) [place], [place] Start: 1980 Sex Assigned At Not on file M [place], [place] Start: 05-29-2021 End: 06-08-2021 Exposure to SARS-CoV-2 (event) Not sure [place] Start: 12-02-2021 End: 12-19-2021 Tobacco smoking status NHIS Never smoked tobacco (finding) [facility] Start: 1980 Sex Assigned At Male F [facility] Clinical Notes 06-08-2021 to 02-01-2023 InstructionsAttachments Note Date & Type Note Facility 02-01-2023 Note This report has been cancelled. [facility] 02-01-2023 Note This report has been cancelled. [facility] 11-17-2022 Note Cardiovascular Labor atory [...] be checked in a week Follow-up with [facility] in the [facility] in the next 2 to 3 months [...] left radial artery was obtained. A 6 Israeli glide sheath was inserted without difficulty. Bilateral [...] INDICATIONS: Abnormal stress test, reduced ejection fraction [facility] 11-17-2022 Note Patient: Lawson stark Procedure Information Date/Time: 11/17/22 1030 Procedure: Coronary angiography (Bilateral) Location: [facility] / [facility] V[facility] [...] consented to blood products. Additional Equipment Requests [facility] 10-31-2022 Note [facility] Cardiology Clinic Note Chief Complaint: Patient here for follow up [facility] for chest pain. He was seen as inpatient consult by Melania Alarcon CNP. Had inpatient stress test. HPI: Lawson Lopez is a 42 y.o. male seen by [...] the above Rafat Michelle MD, MPH, FACC, [facility] Interventional Cardiology Pager Email: [email or web address] 06-08-2021 Hospital Discharge instructions Fatoumata Sanchez, OXIDE FURNACE TENDER - PAINTING CONTRACTOR - 06/08/2021 Increase your fluid intake. Take Bentyl as prescribed. Follow-up with PCP for reevaluation in the next couple of days. Avoid dairy, spicy and fatty foods for the next week. Return here for increased pain, fever, difficulty breathing, vomiting or new or worsening signs or symptoms. The following attachments cannot be sent through Care Everywhere.Gastroenteritis (North Korean)documented in this encounter [employer] Work Phone: Evaluation note Diagnosis Enteritis- Primary Other and unspecified noninfectious gastroenteritis and colitis documented in this encounter [employer] Work Phone: evaluation noteNo assessment information available [facility] Work Phone: Hospital Discharge instructions Additional Instructions Rest ice elevate Use the wrist splint for comfort Take ibuprofen every 6 hours for discomfort Follow-up with either [facility] or [facility] Follow-up with [facility] especially if not getting better [facility] Work Phone: Hospital Discharge instructions Additional Instructions Return for new or worsening symptoms [facility] Work Phone: Hospital Discharge instructions Additional Instructions Please return to emergency department for any new or worrisome symptoms including any weakness, numbness, headache, vision changes. Follow-up with your family physician as soon as possible.[facility] Work Phone: Discharge Instructions * Attachments The following attachments cannot be sent through Care Everywhere. * Tendon Injury (Tendinopathy) ([place] Korean) documented in this encounter* Instructions* Lobito Sidhu [...] Everywhere. * Coronavirus Disease (COVID-19): General Info ([place] Korean) * Coronavirus Disease (COVID-19): Isolation ([place]) documented in this encounter* Instructions* Bambi Segal [...] Where can you learn more? Go to [email or web address] and sign in to your [employer] account. Enter M933 in the Search Health Information box to learn more about [employer] About [employer]. If you do not have an account, please click on the Sign Up Now link. Current as of: January 17, 2018 Content Version: [id number] [employer]. Care instructions adapted under license by [employer]. If youhave questions about a medical condition or this instruction, always ask your healthcare professional. [employer] disclaims any warranty or liability for your use of this information. 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 Advance Directives and Living Will Power of Hose Maker Latest Code Status on File Code Status Date Activated Date Inactivated Comments Full Code 02/05/2019 9:40 PM 02/07/2019 3:36 PM Full Code 06/22/2016 5:58 AM 06/22/2016 7:53 PM Documents on File Type Date Recorded 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 Internal Medicine Discharge Summary Patient ID: Lawson Lopez [id number] Admission date: 02/05/2019 Discharge date: 02/07/2019 [...] but will be referred to [facility]. Discharge Exam: GEN: Awake, alert and oriented [...] Disposition: Discharge to Home Discharge Medications: Lawson Lopez Home Medication Instructions [id number] Printed on:02/07/19 1147 Medication Information amLODIPine (NORVASC) 5 MG tablet Take 1 tablet by mouth daily Patient Instructions: Activity: activity as tolerated Diet: regular diet Wound Care: none needed Follow up with [facility] in 1-2 weeks CORE MEASURES on Discharge (if applicable) DORCAS/ARB in CHF: N/A ASA in MN: N/A Statin in MN: N/A Statin in CVA: N/A Antiplatelet in CVA: N/A Total time spent on discharge services: 25 minutes Including the following activities: Evaluation and Management of patient Discussion with patient and/or surrogate about current care plan Coordination with Case Management and/or Gang Leader Coordination of care with Consultants (if applicable) Coordination of care with Receiving Facility Physician (if applicable) Completion of DME forms (if applicable) Preparation of Discharge Summary Preparation of Medication Reconciliation Preparation of Discharge Prescriptions Signed: Tal Gonzalez M.D. 02/07/2019 11:47 AM documented in this encounter History of Present Illness * Bambi Segal, RN - 02/07/2019 1:33 PM EST Discharge [...] of care. To: __Dr. Jean Baptiste From: [facility] Sender:_KSchwochowRN Phone Number:_[phone] This request is: Urgent - No Information and/or questions regarding patient condition: Regarding Matti Lopez- Patient is hypertensive today, BP's 149/101 right [...] Thank you. Signature Date Time * Jamir Reed, METAL TECHNICIAN, TRANSMISSION ASSEMBLER - 02/06/2019 10:51 AM EST Social Work intial Assessment/Discharge Plan Diagnosis: Abdominal pain with Lleus Met with: Patient PCP: None. Chose [facility] Payment Source: Private. No insurance. Advance Directives: None Code Status: Full Mental Status: Alert and oriented Living Arrangement: Patient lives at home in [place] with a roommate Support Systems: Roommate and [...] Needs/Discharge Plan: Patient will return home to [place] where he resides with a roommate. He [...] 5. Fluid Accumulation-No significant fluid accumulation, 6. Loaf Counter Strength-Not measured Nutrition Risk Level: Moderate Nutrient Needs: Estimated Daily Total Kcal: 9569-9966(12-17) Estimated Daily Protein (g): 95-109(1.3-1.5) Estimated Daily [...] Weight Change: , 2% loss from 290# [place] Body Wt: 160 lb (72.6 kg), % [place] Body 178% BMI Classification: BMI > or [...] Patient/Family Education, Monitor Bowel Function Contact Number: [phone] Marija Horta RN - 02/06/2019 4:31 AM EST Pt ambulates around room as needed, lets needs be known, resting in bed with eyes closed and resp. Unlabored at this time GA * Marija Plummer RN - 02/06/2019 12:45 AM EST Pt [...] oriented to room, pr watching tv when telegraph repeater technician left room documented in this encounter Chief Complaint and Reason for Visit Chief Complaint chest congestion Chief Complaint chest congestion rt wrist pain ico janelle rich Chief Complaint chest congestion rt wrist pain ico janelle rich Rt wrist pain Chief Complaint chest congestion rt wrist pain ico janelle rich Rt wrist pain rt wrist injury Chief Complaint dizzy , nausea hit h ead ico @janelle rodriguezd 6/7 numbness in hands/face Summary Purpose Family History No Family History Records FoundNo Family History Records FoundNo Family History Records FoundNo Family History Records Found Additional Source Comments Reason for Visit (unrecogniz [...] 1528 (Given - Provid er: Toya Banda) Care Teams (unrecognized sec tion and content) [...] Team Status: Active Member Role Status Dates MARIEL Hylton Primary Care Provider Active Team Status: Inactive Member Role Status Dates PHYSICIAN NO FAMILY Primary Care Provider Active Kris Morales DO Emergency Provider Active Team Status: Inactive Member Role Status Dates MARIEL Hylton Primary Care Provider Active Socorro Osullivan MD Emergency Provider Active Goals (unrecognized section and content) Goals may be documented in a n alternate sectionGoals may be documented in an alternate sectionGoals may be documented in an alternate sectionGoals may be documented in an alternate sectionGoals may be documented in an alternate section (unrecognized sect ion and content) No Status Records FoundNo Status Records FoundNo Status Records FoundNo Status Records Found INFORMATION SOURCE (unrecogn ized section and content) DATE CREATED AUTHOR 05/17/2022 [facility] DATE CREATED AUTHOR AUTHOR'S ORGANIZ ATION 10/24/2022 [facility] DATE CREATED AUTHOR AUTHOR'S ORGANIZ ATION 03/04/2023 [facility] DATE CREATED AUTHOR AUTHOR'S ORGANIZ ATION 07/06/2023 [facility] [place] [facility] FOR RECORDS PERTAINING TO PATIENTS WHO ARE [...] BE BASED ON THE PRIMARY CLINICAL RECORDS. [employer] provides no warranty or guarantee of the accuracy or completeness of information in this document.
[2023-08-05] MEDS: KETOROLAC TROMETHAMINE 30 MG/ML VIAL IVP (21:46)
[2023-08-05 21:51] LABS: Anion Gap 13.2; BUN Creatinine Ratio 14.7; Calcium 9.1 mg/dL (8.5-10.1); Carbon Dioxide 28.6 mmol/L (21.0-32.0); Chloride 102 mmol/L (98-107); D Dimer <0.19 mg/L FEU (<=0.59); Estimated GFR (African America >60 (>=60); Estimated GFR (Non-African Ame >60 (>=60); Glucose 104 mg/dL (74-106); Potassium 3.8 mmol/L (3.5-5.1); Sodium 140 mmol/L (136-145)
--- NOTE | 2023-08-05 21:51 | PC.NURSE ---
pt c/o left rib pain that radiates to left shoulder. pt c/o weakness, dizziness.
[2023-08-05 23:15] LABS: Bilirubin Urine NEGATIVE (NEGATIVE); Blood Urine TRACE-L (NEGATIVE); Clarity Urine CLEAR (CLEAR); Color Urine YELLOW (YELLOW); Glucose Urine UA NEGATIVE (NEGATIVE); Ketones Urine NEGATIVE (NEGATIVE); Leukocyte Esterase Urine NEGATIVE (NEGATIVE); Nitrite Urine NEGATIVE (NEGATIVE); Protein Urine NEGATIVE (NEG/TRACE); Specific Gravity Urine >=1.030 (1.005-1.025)
[2023-08-05 23:22] LABS: Bacteria Urine NONE SEEN #/HPF (NONE SEEN); Crystals Seen? None Seen #/HPF (None Seen); Mucus Urine SMALL (NONE SEEN); RBC Urine 0-2 #/HPF (0-2); Squamous Epithelial Cell Urine NONE SEEN #/LPF (NONE/RARE); WBC Urine 0-2 #/HPF (NONE SEEN)
[2023-08-05 23:23] LABS: Cast Seen? NONE SEEN #/LPF (NONE SEEN); Urine Culture Indicated NO
[2023-08-05 23:57] LABS: Troponin I High Sensitivity 18.5 pg/mL (4.0-76.1)
== END 2023-08-06 00:22 | disposition home or self-care (01) ==
PROVIDERS: Emergency Provider Emergency Medicine; PCP Nurse Practitioner
DX: R07.89 Other chest pain (principal); F11.11 Opioid abuse, in remission
CPT/HCPCS: 36415; 71045; 80048; 81001; 84484; 85025; 85378; 93005; 96374; 99285

== ENCOUNTER 2023-09-25 10:44 | Emergency (ER) | payer SELFPAY ==
[2023-09-25 10:47] VITALS: BP 160/102; PULSE 92; TEMP 36.9; O2SAT 97; BMI 43.0
[2023-09-25] MEDS: FAMOTIDINE 20 MG TABLET PO (11:02)
[2023-09-25] MEDS: lidocaine HCL 15 ML, MAG HYDROX/ALUMINUM HYD/SIMETH 30 ML, HYOSCYAMINE SULFATE 0.25 MG PO (11:03)
--- NOTE | 2023-09-25 11:17 | ECG_ITS ---
[facility] Test Date: 2023-09-25 Pat Name: LAWSON LOPEZ Department: Room: - Gender: Male Development Administrator: : 1980 Requested By: Isabel Rodas Order Number: [id number] Reading MD: ZAIN CALDWELL Measurements Intervals [place] Rate: 74 P: 42 IN: 150 QRS: -37 QRSD: 86 T: 18 QT: 360 QTc: 387 Interpretive Statements 1100 Sinus rhythm 8102 Low QRS voltage in chest leads 9150 abnormal ECG Electronically Signed On 09-26-2023 5:24:39 EDT by ZAIN CALDWELL
[2023-09-25 11:38] VITALS: PULSE 87; O2SAT 99
--- NOTE | 2023-09-25 11:45 | ED_ITS ---
HPI HPI - General Adult General Chief complaint: Upper Respiratory Infection Stated complaint: SORE THROAT Time Seen by Provider: 09/25/23 10:45 Source: patient Mode of arrival: walk-in Limitations: no limitations History of Present Illness HPI narrative: 43-year-old male to the emergency department chief complaint of burning in his esophagus and back of throat that started last night. He reports he had a pizza dinner. He reports that after that he developed some burning esophageal pain. Woke up this morning with a burning feeling in the back of his throat. He reports he has only had this intermittently but never this severe before. He denies any chest pain or shortness of breath. Denies any abdominal pain. Related Data Home Medications ?Medication ?Instructions ?Recorded ?Confirmed ketorolac 10 mg tablet 10 mg PO Q8H PRN pain 01/16/23 01/16/23 orphenadrine citrate 100 mg 100 mg PO BID PRN pain 01/16/23 01/16/23 tablet,extended release Previous Rx's ?Medication ?Instructions ?Recorded amlodipine 10 mg tablet 10 mg PO DAILY #30 tabs 09/06/22 aspirin 81 mg chewable tablet 81 mg PO DAILY #30 tabs 09/06/22 atorvastatin 40 mg tablet (Lipitor) 40 mg PO DAILY #30 tabs 09/06/22 metoprolol tartrate 50 mg tablet 25 mg (1/2 x 50 mg) PO BID #30 tabs 09/06/22 (Lopressor) ibuprofen 800 mg tablet 800 mg PO Q8H PRN pain #20 tabs 12/28/22 abiauefbujtgffh-wtpbidrwyqxpmbk-ZU 5 ml PO Q4H PRN cold symptoms #118 04/07/23 2 mg-30 mg-10 mg/5 mL oral syrup mL (Bromfed DM) doxycycline monohydrate 100 mg 100 mg PO BID 7 days #14 caps 04/07/23 capsule ondansetron 4 mg disintegrating 4 mg PO Q8H PRN nausea and 04/07/23 tablet vomiting 4 days #16 tabs ibuprofen 800 mg tablet 800 mg PO Q8H PRN pain #20 tabs 07/20/23 pantoprazole 40 mg tablet,delayed 40 mg PO DAILY 6 weeks #42 tabs 09/25/23 release (Protonix) Allergies Allergy/AdvReac Type Severity Reaction Status Date / Time amoxicillin Allergy Verified 05/25/24 21:09 prednisone Allergy Verified 08/05/23 21:09 narcotic AdvReac Severe Uncoded 08/05/23 21:09 Opioid HPI Opioid Management Most Recent Opioid Data: Last Pain Scale 8 08/05/23 21:46 Review of Systems ROS Status of ROS 10 or more systems reviewed and unremark able except as noted in history and below [facility] Medical History (Updated 09/25/23 @ 11:29 by Juan Loja MD) Syncope and collapse ?R55 - Syncope and collapse (ICD-10) Tobacco abuse ?Z72.0 - Tobacco use (ICD-10) Dyslipidemia ?E78.5 - Hyperlipidemia, unspecified (ICD-10) HTN (hypertension) ?I10 - Essential (primary) hypertension (ICD-10) Social History (Updated 09/05/22 @ 12:28 by STEVEN FLORES) Smoking status: Former smoker Non-prescribed substance use: former substance user Non-prescribed substance use details: cocaine Exam Narrative Exam Narrative: VITALS: I have reviewed the triage vital signs. GENERAL: Well developed, well appearing adult in no acute distress. NEURO: Alert and oriented. Moves all extremities. Face is symmetric and expressive. EYES: PERRL. No scleral icterus or conjunctival injection. No discharge. HENT: Normocephalic, atraumatic. Hearing is grossly intact. Nares grossly patent and without discharge. Mucous membranes moist. NECK: No JVD. Patient moves neck without restriction. CARDIO: Rhythm regular. Normal rate. No murmur, rub, or gallop. Pulses equal bilaterally in the upper and lower extremity. No lower extremity edema. PULM: Lungs clear to auscultation in all byrd. No wheezes, rales, or rhonchi. No conversational dyspnea. No splinting, stridor, or accessory muscle use. GI/: Abdomen is soft and non-tender. Normoactive bowel sounds. EXTREMITIES: Symmetric muscle bulk. No joint swelling. No clubbing, cyanosis, or deformity. SKIN: Warm and dry. Normal turgor. No rash or lesions appreciated. PSYCH: Mood, affect, and interaction is appropriate to the setting. Constitutional Vital Signs, click to edit/add: Last Vital Signs Temp 98.5 F 09/25/23 10:47 Pulse 87 09/25/23 11:38 Resp 18 09/25/23 11:38 BP 160/102 H 09/25/23 10:47 Pulse Ox 99 09/25/23 11:38 O2 Del Method Room Air 09/25/23 11:38 Course Vital Signs Vital signs: Vital Signs Temperature 98.5 F 09/25/23 10:47 Pulse Rate 92 H 09/25/23 10:47 Respiratory Rate 18 09/25/23 10:47 Blood Pressure 160/102 H 09/25/23 10:47 Pulse Oximetry 97 09/25/23 10:47 Oxygen Delivery Method Room Air 09/25/23 10:47 Temperature 98.5 F 09/25/23 10:47 Pulse Rate 87 09/25/23 11:38 Respiratory Rate 18 09/25/23 11:38 Blood Pressure 160/102 H 09/25/23 10:47 Pulse Oximetry 99 09/25/23 11:38 Oxygen Delivery Method Room Air 09/25/23 11:38 Medical Decision Making MDM Narrative Medical decision making narrative: Well-appearing 43-year-old male with reflux-like symptoms. Vital stable, the patient is afebrile. Cardiopulmonary exam is unremarkable. Sounds as though he was struggle with reflux throughout the night. He has burning in the back of his throat. EKG is ordered without acute findings. He was given Pepcid and a GI cocktail which completely resolved his symptoms. Will treat him with Protonix at home. Return precautions were discussed. All questions were answered. The patient was discharged home ECG Data Attestation: I personally reviewed and interpreted this ECG as follows: (No STEMI. Normal sinus rhythm at a rate of 74. Normal QTc) Discharge Plan Discharge Stand Alone Forms: Portal Instructions Chief Complaint: Upper Respiratory Infection Clinical Impression: GERD (gastroesophageal reflux disease) Patient Disposition: Home, Self-Care Time of Disposition Decision: 11:29 Condition: Good Mode of Transportation: Private Vehicle Prescriptions / Home Meds: New pantoprazole [Protonix] 40 mg tablet,delayed release (DR/EC) 40 mg PO DAILY 42 Days Qty: 42 0RF No Action aspirin 81 mg tablet,chewable 81 mg PO DAILY Qty: 30 0RF amlodipine 10 mg tablet 10 mg PO DAILY Qty: 30 0RF metoprolol tartrate [Lopressor] 50 mg tablet 25 mg PO BID Qty: 30 0RF atorvastatin [Lipitor] 40 mg tablet 40 mg PO DAILY Qty: 30 0RF ibuprofen 800 mg tablet 800 mg PO Q8H PRN (Reason: pain) Qty: 20 0RF ketorolac 10 mg tablet 10 mg PO Q8H PRN (Reason: pain) orphenadrine citrate 100 mg tablet extended release 100 mg PO BID PRN (Reason: pain) hphzngqyjqfmida-cbxhmvorj-EO [Bromfed DM] 2-30-10 mg/5 mL syrup 5 ml PO Q4H PRN (Reason: cold symptoms) Qty: 118 0RF doxycycline monohydrate 100 mg capsule 100 mg PO BID 7 Days Qty: 14 0RF ondansetron 4 mg tablet,disintegrating 4 mg PO Q8H PRN (Reason: nausea and vomiting) 4 Days Qty: 16 0RF ibuprofen 800 mg tablet 800 mg PO Q8H PRN (Reason: pain) Qty: 20 0RF Print Language: Persian Instructions: GERD (Gastroesophageal Reflux Disease) (ED) Additional Instructions: Call the office of your primary care doctor to arrange for follow-up within the above-stated timeframe. Your ED visit was focused on your acute issue and does not replace primary care. You should review your labs, imaging, and diagnoses from this ED visit with your primary care physician. There may be non-emergent/ incidental findings that need further evaluation. You should review your vital signs including blood pressure with your PCP. If you were prescribed medications you should discuss possible side-effects and drug interactions with your pharmacist. Call 911 or go to the nearest Emergency Department if you develop any new or worsening symptoms. Seek immediate medical attention if you develop: worsening abdominal pain, new or worsening nausea, new or worsening vomiting, new or worsening diarrhea, chest pain, shortness of breath, pain with urination, problems urinating, fever, chills, weakness, or any new or worsening symptoms. Referrals: ELIAS DUKES [Primary Care Provider] - 1 week Discharge Date/Time: 09/25/23 11:39
== END 2023-09-25 11:39 | disposition home or self-care (01) ==
PROVIDERS: Emergency Provider Student in an Organized Health Care Education/Training Program; PCP Nurse Practitioner
DX: K21.9 Gastro-esophageal reflux disease without esophagitis (principal); Z87.891 Personal history of nicotine dependence
CPT/HCPCS: 93005; 99282

== ENCOUNTER 2024-01-26 09:34 | Emergency (ER) | payer OTHER, SELFPAY ==
[2024-01-26 09:36] VITALS: BP 144/92; PULSE 81; TEMP 37.1; O2SAT 98; BMI 41.9
--- NOTE | 2024-01-26 09:51 | ED.GENADUL1 ---
HPI HPI - General Adult General Chief complaint: Extremity Injury, Upper Stated complaint: UPPER EXTREMITY PAIN Time Seen by Provider: 01/26/24 09:51 Source: patient Mode of arrival: walk-in Limitations: no limitations History of Present Illness HPI narrative: Patient is a 44-year-old male complaining of left shoulder pain. Patient stated his pain started mid to late afternoon yesterday. Patient is having pain is staying in the left shoulder, not radiating anywhere else. Not dominant to his back, then into his chest or abdomen. He has no chest pain or shortness of breath or tightness. Patient stated approxi-1 year ago it was noted that he had NM, but had a cardiac cath and it was clean, the 7 no blocked vessels. Patient is compliant with his medications. Patient details cars, patient did not go to work today. Patient girlfriend at bedside. 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 Despite this, patient does not believe he has had a repetition or activity in his left shoulder that would be causing the pain even though he is boxing many things and carrying them. No abdominal pain, nausea, vomiting, or any other acute complaints. All systems are negative except as noted/marked. All systems reviewed and otherwise negative. Nurses note and vital signs reviewed and patient is not hypoxic. General: The patient appears well and in no apparent distress. Patient is resting uncomfortably on cart. Patient is not toxic, lethargic, or listless Skin: Warm, dry, no pallor noted. There is no rash noted. No petechiae, purpura. Head: Normocephalic, atraumatic; patient has moderate tenderness to palpation to the left upper trapezius muscle, along with left paracervical soft tissue. Patient has no midline cervical tenderness to palpation. Eye: Normal conjunctiva, no drainage, EOMI. PERRL Ears, Nose, Mouth, and Throat: oral mucosa is moist. Nares patent. Mouth without vesicles. Cardiovascular: Regular Rate and Rhythm, no murmur, gallop, rub Respiratory: Patient is in no distress, no accessory muscle use, lungs are clear to auscultation, no wheezing, rales or rhonchi Back: non-tender, no CVA tenderness bilaterally to percussion. No CT LS midline pain GI: Obese, no tenderness to palpation, no masses appreciated. No rebound, guarding, or rigidity noted. No distention Musculoskeletal: Patient has full range of motion of all of the extremities except the left shoulder. Patient has mild tenderness palpation to the left AC joint. Patient has mild to moderate pain with active flexion extension of the left shoulder. Patient has mild pain with active abduction of the left shoulder. Patient has no rash., no motor, sensory, or focal neurological deficits Neurological: A&O x4, normal speech Psychiatric: Cooperative Related Data Home Medications ?Medication ?Instructions ?Recorded ?Confirmed ketorolac 10 mg tablet 10 mg PO Q8H PRN pain 01/16/23 01/16/23 orphenadrine citrate 100 mg 100 mg PO BID PRN pain 01/16/23 01/16/23 tablet,extended release Previous Rx's ?Medication ?Instructions ?Recorded amlodipine 10 mg tablet 10 mg PO DAILY #30 tabs 09/06/22 aspirin 81 mg chewable tablet 81 mg PO DAILY #30 tabs 09/06/22 atorvastatin 40 mg tablet (Lipitor) 40 mg PO DAILY #30 tabs 09/06/22 metoprolol tartrate 50 mg tablet 25 mg (1/2 x 50 mg) PO BID #30 tabs 09/06/22 (Lopressor) ibuprofen 800 mg tablet 800 mg PO Q8H PRN pain #20 tabs 12/28/22 wjngeqevmyfglga-koxtwrtztiudsgf-MP 5 ml PO Q4H PRN cold symptoms #118 04/07/23 2 mg-30 mg-10 mg/5 mL oral syrup mL (Bromfed DM) doxycycline monohydrate 100 mg 100 mg PO BID 7 days #14 caps 04/07/23 capsule ondansetron 4 mg disintegrating 4 mg PO Q8H PRN nausea and 04/07/23 tablet vomiting 4 days #16 tabs ibuprofen 800 mg tablet 800 mg PO Q8H PRN pain #20 tabs 07/20/23 pantoprazole 40 mg tablet,delayed 40 mg PO DAILY 6 weeks #42 tabs 09/25/23 release (Protonix) methocarbamol 500 mg tablet 500 mg PO Q8H PRN muscle pain #10 01/26/24 tabs Allergies Allergy/AdvReac Type Severity Reaction Status Date / Time amoxicillin Allergy Verified 08/05/23 21:09 prednisone Allergy Verified 08/05/23 21:09 narcotic AdvReac Severe Uncoded 08/05/23 21:09 Opioid HPI Opioid Management Most Recent Opioid Data: Last Pain Scale 8 08/05/23 21:46 08/05/23 PFSH PFSH Medical History (Updated 01/26/24 @ 10:31 by Tejinder Cabrera MD) Syncope and collapse ?R55 - Syncope and collapse (ICD-10) Tobacco abuse ?Z72.0 - Tobacco use (ICD-10) Dyslipidemia ?E78.5 - Hyperlipidemia, unspecified (ICD-10) HTN (hypertension) ?I10 - Essential (primary) hypertension (ICD-10) Social History (Updated 09/05/22 @ 12:28 by STEVEN FLORES) Smoking status: Former smoker Non-prescribed substance use: former substance user Non-prescribed substance use details: cocaine Little interest or pleasure in doing things: not at all Feeling down, depressed, or hopeless: not at all Exam Constitutional Vital Signs, click to edit/add: Last Vital Signs Temp 98.7 F 01/26/24 09:36 Pulse 81 01/26/24 09:36 Resp 18 01/26/24 09:36 BP 144/92 H 01/26/24 09:36 Pulse Ox 98 01/26/24 09:36 O2 Del Method Room Air 01/26/24 09:36 Course Vital Signs Vital signs: Vital Signs Temperature 98.7 F 01/26/24 09:36 Pulse Rate 81 01/26/24 09:36 Respiratory Rate 18 01/26/24 09:36 Blood Pressure 144/92 H 01/26/24 09:36 Pulse Oximetry 98 01/26/24 09:36 Oxygen Delivery Method Room Air 01/26/24 09:36 Temperature 98.7 F 01/26/24 09:36 Pulse Rate 81 01/26/24 09:36 Respiratory Rate 18 01/26/24 09:36 Blood Pressure 144/92 H 01/26/24 09:36 Pulse Oximetry 98 01/26/24 09:36 Oxygen Delivery Method Room Air 01/26/24 09:36 Medical Decision Making MDM Narrative Medical decision making narrative: Patient will not be given a sling, patient states he needs to use his left upper extremity for packing and they need to be out of their housing on Monday. Patient asked for a work note today. Patient has not taken any Motrin, Tylenol, and not used ice, heat, and has not done anything to help with the pain. Patient was educated on using anti-inflammatories, Tylenol, ice, and following up with Dr. Matos who is seen previously for orthopedic surgery. ECG Data Attestation: I personally reviewed and interpreted this ECG as follows: (EKG interpretation. Baseline normal sinus rhythm at 66 beats a minute. Left axis deviation, nonspecific ST changes, QTc of 381. Mild ST depression noted in lead II, no ST elevation. Compared to old EKG on September 25, 2023, patient has similar changes to today's EKG besides T wave inversion in leads) Discharge Plan Discharge Stand Alone Forms: Work/School Release Chief Complaint: Extremity Injury, Upper Clinical Impression: Left shoulder pain Patient Disposition: Home, Self-Care Time of Disposition Decision: 10:31 Condition: Fair Prescriptions / Home Meds: New methocarbamol 500 mg tablet 500 mg PO Q8H PRN (Reason: muscle pain) Qty: 10 0RF No Action aspirin 81 mg tablet,chewable 81 mg PO DAILY Qty: 30 0RF amlodipine 10 mg tablet 10 mg PO DAILY Qty: 30 0RF metoprolol tartrate [Lopressor] 50 mg tablet 25 mg PO BID Qty: 30 0RF atorvastatin [Lipitor] 40 mg tablet 40 mg PO DAILY Qty: 30 0RF ibuprofen 800 mg tablet 800 mg PO Q8H PRN (Reason: pain) Qty: 20 0RF ketorolac 10 mg tablet 10 mg PO Q8H PRN (Reason: pain) orphenadrine citrate 100 mg tablet extended release 100 mg PO BID PRN (Reason: pain) vqwmibdtadczjck-ygwfnkqwk-PW [Bromfed DM] 2-30-10 mg/5 mL syrup 5 ml PO Q4H PRN (Reason: cold symptoms) Qty: 118 0RF doxycycline monohydrate 100 mg capsule 100 mg PO BID 7 Days Qty: 14 0RF ondansetron 4 mg tablet,disintegrating 4 mg PO Q8H PRN (Reason: nausea and vomiting) 4 Days Qty: 16 0RF pantoprazole [Protonix] 40 mg tablet,delayed release (DR/EC) 40 mg PO DAILY 42 Days Qty: 42 0RF ibuprofen 800 mg tablet 800 mg PO Q8H PRN (Reason: pain) Qty: 20 0RF Print Language: Green[place]ic Instructions: How to Use a Sling (ED), Shoulder Pain (ED) Additional Instructions: Use ice 20 minutes on, 20 minutes off, do not use heat. Alternate Tylenol and either Motrin, Advil, or ibuprofen every 4 hours to help with pain. Maximum dose of Tylenol is 3000 mg a day. Maximum dose of either Motrin, Advil, or ibuprofen is 2400 mg a day. Use Robaxin as needed for muscle relaxation, nothing is more important than using ice, heat. Referrals: Chandu Matos MD [Physician] - 1 week ELIAS DUKES [Primary Care Provider] - 1 week
--- OUTSIDE RECORDS SUMMARY | 2024-01-26 10:15 | XMS_ITS | CCD ---
Author Organization [facility] Care Team Providers Care Stitchdown Toe Former Name Role Phone Unavailable Primary Care Provider Unavailabl e Carina Hernandez Primary Care Provider Unavailable Primary Care Provider Unavailabl e NO FAMILY, PHYSICIAN Primary Care Provider Unava ARSALAN Kamara Emergency Provider [phone] Alfie [facility] Jenelle E Emergency Provider [phone] MEENAKSHI Schmidt Emergency Provider NO FAMILY, PHYSICIAN Primary Care Provider Unava ilapolinar Elizondo APRN Elian Emergency Provider [phone] [facility] Jenelle E Emergency Provider MEENAKSHI Schmidt Emergency Provider REQUEST, NONE LISTED Primary Care Unavaila ble KIM, KATE Admitting Unavailable KATE ALVAREZ Attending Unavailable KATE ALVAREZ Consulting Unavailable AMAN PURCELL Consulting Unavailable NATHAN, NONE LISTED Primary Care Unavaila ble JESUS ., JOSEFINA Admitting Unavailable JESUS Ramesh, JOSEFINA Attending Unavailable LIDIA .JOHANNY Consulting Unavailabl e [place], James Consulting Unavailable NO FAMILY, PHYSICIAN Primary Care Provider Unava ilable DO Kris Narvaez Emergency Provider MARIEL Rodas Primary Care Provider MD Socorro Osullivan Emergency Provider [place], EHAB Attending Unavailable [place], EHAB Admitting Unavailable [place], EHAB Attending Unavailable [place], EHAB Referring Unavailable Isabel Rodas Primary Care Unavailable Socorro Osullivan Attending Unavailable Socorro Osullivan Admitting Unavailable Allergies Allergy Classification Reported Allergen(s) Allergy Type Date of Onset Reaction(s) Facility Corticosteroids (1 source) predniSONE Drug Allergy [address] [facility] Repository Penicillins (antibiotic) (1 source) Amoxicillin Drug Allergy [address] [facility] Repository (10 sources) Amoxicillin; Translations: [AMOXICILLIN] Drug Allergy 6 Unknown Reaction [place], [place] (5 sources) fentaNYL; Translations: [FENTANYL] Drug Allergy 9 [place], [place] (10 sources) predniSONE; Translations: [PREDNISONE] Drug Allergy 6 Other (See Comments) [place] (1 source) Amoxicillin Drug Allergy 3 [facility] Repository (1 source) predniSONE Drug Allergy 3 [facility] Repository (1 source) amLODIPine; Translations: [AMLODIPINE] Drug Allergy 3 [facility] Repository Medications Current Medications Medication Drug [...] not intractable] 08-18-2022 Episodic Headache; including migraine (4 sources) Headache; including migraine; Translations: [HEADACHE UNSPECIFIED] Onset: 05-15-2022 Nausea and vomiting (1 source) Nausea with [...] skin; Translations: [Paresthesia of skin] 10-11-2022 Episodic Screening and history of mental [...] [CONTACT W/AND (SUSP) EXPOS COVID-19] Onset: 05-13-2022 Viral infection (1 source) Other specified viral [...] lung field] Onset: 06-22-2016 06-22-2016 Episodic Other nervous system disorders (1 source) Paresthesia of skin; Translations: [Paresthesia of skin] Onset: 10-11-2022 Episodic Other screening for suspected conditions (not [...] 07-04-2023 Abs. Basophil 0.06 k/uL Normal 0.00-0.20 [facility] Comment on above: Performed By: #### C DP, LIP, CP #### [facility] [address] [place], [place] [id number] Booster Operator: Alex Amador MD Abs.Imm.Granulocyte 0.03 k/uL Normal 0.00-0.30 [facility] Comment on above: Performed By: #### C DP, LIP, CP #### [address] [place], [facility] Booster Operator: Alex Amador MD Abs.Neutrophil (Seg) 7.00 k/uL Normal 1.50-8.10 [facility] Comment on above: Performed By: #### C DP LIP, CP #### [address] [place] [address] Booster Operator: Alex Amador MD Basophils/100 WBC (Bld) 1 % Normal 0-2 [facility] Comment on above: Performed By: #### C RAMÓN MELTON, CP #### [address] [place], [place] [address] Booster Operator: Alex Amador MD Eosinophils (Bld) [#/Vol] 0.17 10*3/uL Normal 0.00-0.44 [facility] Comment on above: Performed By: #### C DP, LIP, CP #### [address] [place], [facility] Booster Operator: Alex Amador MD Eosinophils/100 WBC (Bld) 2 % Normal 1-4 [facility] Comment on above: Performed By: #### C DP LIP, CP #### [address] [place], [facility] Booster Operator: Alex Amador MD Erythrocyte distribution width (RBC) [Ratio] 12.4 % Normal 11.8-14.4 [facility] Comment on above: Performed By: #### C DP, LIP, CP #### [address] [place], [facility] Booster Operator: Alex Amador MD Hematocrit (Bld) [Volume fraction] 44.6 % Normal 40.7-50.3 [facility] Comment on above: Performed By: #### C DP LIP, CP #### [facility] [address] [place], [place] [id number] Booster Operator: Alex Amador MD Hemoglobin (Bld) [Mass/Vol] 15.5 g/dL Normal 13.0-17.0 [facility] Comment on above: Performed By: #### C LINH LIP, CP #### [address] [place], [place] [id number] Booster Operator: Alex Amador MD Immature granulocytes/100 WBC (Bld) 0 % Normal 0 [facility] Comment on above: Performed By: #### C RAMÓN MELTON, CP #### [address] [place], [place] [address]83 Booster Operator: Alex Amador MD Lymphocytes (Bld) [#/Vol] 1.59 10*3/uL Normal 1.10-3.70 [facility] Comment on above: Performed By: #### C LINH LIP, CP #### [address] [place], [place] [id number] Booster Operator: Alex Amador MD Lymphocytes/100 WBC (Bld) 17 % Low 24-43 [facility] Comment on above: Performed By: #### C DP LIP, CP #### [facility] [address] [place] [address] [place] [address] Booster Operator: Alex Amador MD MCH (RBC) [Entitic mass] 30.3 pg Normal 25.2-33.5 [facility] Comment on above: Performed By: #### C DP LIP, CP #### [facility] [address] [place], [place] [phone] Booster Operator: Alex Amador MD MCHC (RBC) [Mass/Vol] 34.8 g/dL Normal 28.4-34.8 [facility] Comment on above: Performed By: #### C RAMÓN MELTON, CP #### [facility] [address] [place] [address] Booster Operator: Alex Amador MD MCV (RBC) [Entitic vol] 87.1 fL Normal 82.6-102.9 [facility] Comment on above: Performed By: #### C RAMÓN MELTON, CP #### [address] [place] [address] Booster Operator: Alex Amador MD Monocytes (Bld) [#/Vol] 0.78 10*3/uL Normal 0.10-1.20 [facility] Comment on above: Performed By: #### C RAMÓN MELTON, CP #### [address] [place], [facility]83 Booster Operator: Alex Amador MD Monocytes/100 WBC (Bld) 8 % Normal 3-12 [facility] Comment on above: Performed By: #### C RAMÓN MELTON, CP #### [address] [place] [address] Booster Operator: Alex Amador MD Neutrophil (Seg) 72 % High 36-[address] [facility] Comment on above: Performed By: #### C RAMÓN MELTON, CP #### [address] [place] [address] Booster Operator: Alex Amador MD NRBC Automated 0.0 per 100 WBC Normal 0.0 [facility] Comment on above: Performed By: #### C RAMÓN MELOTN, CP #### [address] [place], [place] [phone] Booster Operator: Alex Amador MD Platelet mean volume (Bld) [Entitic vol] 10.4 fL Normal 8.1-13.5 [facility] Comment on above: Performed By: #### C DP, LIP, CP #### [facility] [address] [place] [address] Booster Operator: Alex Amador MD Platelets (Bld) [#/Vol] 239 10*3/uL Normal 138-453 [facility] Comment on above: Performed By: #### C DP, LIP, CP #### [facility] [address] [place] [address] Booster Operator: Alex Amador MD RBC (Bld) [#/Vol] 5.12 10*6/uL Normal 4.21-5.77 [facility] Comment on above: Performed By: #### C DP LIP, CP #### [facility] [address] [place] [address] Booster Operator: Alex Amador MD WBC (Bld) [#/Vol] 9.6 10*3/uL Normal 3.5-11.3 [facility] Comment on above: Performed By: #### C DP LIP, CP #### [address] [place], [place] 1426983 Booster Operator: Alex Amador MD Comp Metabolic Profon 2023 Albumin [Mass/Vol] 4.4 g/dL Normal 3.5-5.2 [facility] Comment on above: Performed By: #### C DP LIP, CP #### [facility] [address] [place], [place] [phone] Booster Operator: Alex Amador MD Albumin/Glob Ratio 1.2 Normal 1.0-2.5 [facility] Comment on above: Performed By: #### C DP LIP, CP #### [facility] [address] [place] [address] Booster Operator: Alex Amador MD Alkaline Phos 103 U/L Normal 40-129 [facility] Comment on above: Performed By: #### C DP, LIP, CP #### [facility] [address] [place], [place] [phone] Booster Operator: Alex Amador MD ALT [Catalytic activity/Vol] 30 U/L Normal 5-41 [facility] Comment on above: Performed By: #### C DP, LIP, CP #### [facility] [address] [place], [place] [phone] Booster Operator: Alex Amador MD Anion gap [Moles/Vol] 10 mmol/L Normal 9-17 [facility] Comment on above: Performed By: #### C DP, LIP, CP #### [facility] [address] [place], [place] 7469383 Booster Operator: Alex Amador MD AST [Catalytic activity/Vol] 21 U/L Normal <40 [facility] Comment on above: Performed By: #### C DP, LIP, CP #### [facility] [address] [place], [place] [address]83 Booster Operator: Alex Amador MD Bilirubin [Mass/Vol] 0.7 mg/dL Normal 0.3-1.2 [facility] Comment on above: Performed By: #### C DP, LIP, CP #### [facility] [address] [place], [place] [phone] Booster Operator: Alex Amador MD BUN/CRE Ratio 13 Normal 9-20 [facility] Comment on above: Performed By: #### C DP, LIP, CP #### [facility] [address] [place], [place] 3084383 Booster Operator: Alex Amador MD Calcium [Mass/Vol] 9.1 mg/dL Normal 8.6-10.4 [facility] Comment on above: Performed By: #### C DP, LIP, CP #### [facility] [address] [place], [place] 289[address]83 Booster Operator: Alex Amador MD Chloride [Moles/Vol] 102 mmol/L Normal 98-107 [facility] Comment on above: Performed By: #### C LINH LIP, CP #### [facility] [address] [place] [address] Booster Operator: Alex Amador MD CO2 [Moles/Vol] 27 mmol/L Normal 20-31 [facility] Comment on above: Performed By: #### C DP LIP, CP #### [facility] [address] [place] [address] Booster Operator: Alex Amador MD Creatinine [Mass/Vol] 0.8 mg/dL Normal 0.7-1.2 [facility] Comment on above: Performed By: #### C LINH LIP, CP #### [facility] [address] [place] [address] Booster Operator: Alex Amador MD GFR/1.73 sq M.predicted among non-blacks MDRD (S/P/Bld) [Vol rate/Area] mL/min/{1.73_m2} Normal >60 [facility] Comment on above: Result Comment: These results [...] renal tubular secretion. Performed By: #### C LINH LIP, CP #### [facility] [address] [place] [address] Booster Operator: Alex Amador MD Glucose [Mass/Vol] 97 mg/dL Normal 70-99 [facility] Comment on above: Performed By: #### C DP LIP, CP #### [facility] [address] [place] [address] Booster Operator: Alex Amador MD Potassium [Moles/Vol] 4.2 mmol/L Normal 3.7-5.3 [facility] Comment on above: Performed By: #### C DP LIP, CP #### [facility] [address] [place] [address] Booster Operator: Alex Amador MD Protein [Mass/Vol] 8.0 g/dL Normal 6.4-8.3 [facility] Comment on above: Performed By: #### C DP LIP, CP #### [facility] [address] [place] [address] Booster Operator: Alex Amador MD Sodium [Moles/Vol] 139 mmol/L Normal 135-144 [facility] Comment on above: Performed By: #### C LINH LIP, CP #### [facility] [address] [place] [address] Booster Operator: Alex Amador MD Urea nitrogen [Mass/Vol] 10 mg/dL Normal 6-20 [facility] Comment on above: Performed By: #### C RAMÓN MELTON, CP #### [facility] [address] [place] [address] Booster Operator: Alex Amador MD Lipaseon 07-04-2023 Lipase [Catalytic activity/Vol] 29 U/L Normal 13-60 [facility] Comment on above: Performed By: #### C DP LIP, CP #### [facility] [address] [place] [address] Booster Operator: Alex Amador MD 36on 11-21-2022 36 Patient's [...] cost is very similar. Help! Thanks. Normal [facility] CBCon 11-17-2022 Erythrocyte distribution width (RBC) [Ratio] 12.9 % Normal 11.5-15.0 [facility] Comment on above: Performed By: #### L [id number] ####[facility] (BEAKER)[address] [place] [address] ERYTHROCYTE MEAN CORPUSCULAR HEMOGLOBIN CONCENTRATION (G/DL) BY AUTOMATED 34.2 g/dL Normal 32.0-35.0 [facility] Comment on above: Performed By: #### L [id number] ####[facility] [place] [address] Hematocrit (Bld) [Volume fraction] 43.6 % Normal 39.0-55.0 [facility] Comment on above: Performed By: #### L [id number] ####[facility] [place] [address] Hemoglobin (Bld) [Mass/Vol] 14.9 g/dL Normal 13.0-17.0 [facility] Comment on above: Performed By: #### L [id number] ####[facility] (BEAKER)[address] [place] [address] MCH (RBC) [Entitic mass] 30.2 pg Normal 27.0-33.0 [facility] Comment on above: Performed By: #### L [id number] ####[facility] (BEAKER)[address] [place] [address] MCV (RBC) [Entitic vol] 88.4 fL Normal 82.0-98.0 [facility] Comment on above: Performed By: #### L [id number] ####[facility] (BEAKER)[address] [place] [address] PLATELETS (10*3/UL) IN BLOOD AUTOMATED COUNT 237 10*3/uL Normal 150-400 [facility] Comment on above: Performed By: #### L [id number] ####[facility] (BEAKER)[address] [place] [address] RBC (Bld) [#/Vol] 4.93 10*6/uL Normal 4.20-5.70 [facility] Comment on above: Performed By: #### L [id number] ####[facility] (BEAKER)[address] [place] [address] WBC (Bld) [#/Vol] 10.15 10*3/uL Normal 4.00-10.60 [facility] Comment on above: Performed By: #### L [id number] ####[facility] (BEAKER)[address] [place] [address] HPon 11-17-2022 HP H&P reviewed. The patient [...] consent was signed prior to the procedure. [facility] HP H&P reviewed. The patient was examined and there are no changes to the H&P. Rafat Garcia MD, MPH, [facility], [facility], [facility] Interventional Cardiology Pager Email: [email or web address] 11-17-2022 NURSSHADI RN educated pt on d/c instructions. RN encouraged pt to voice any questions or concerns. Pt verbalizes no questions or concerns at this time. Pt was wheeled off of unit with all of belongings. [facility] Orders Onlyon 11-09-2022 Orders Only [id number] Lawson Lopez Justice 1980 M Date Provider Department Center 11/09/2022 [facility] VAS LAB WI HeartVAS Family History Problem Relation Age of Onset Coronary artery disease Mother's Brother Peripheral vascular disease Mother's Brother Family Status - Relation Status Age at Mother's Brother [facility] HPon 10-31-[address] [facility] Cardiology Clinic Note Chief Complaint: Patient here for follow up [facility] for chest pain. He was seen [...] two Further recommendations pending the above Rafat Garcia MD, MPH, [facility], [facility], [facility] Interventional Cardiology Pager Email: [email or web address] Normal [facility] Office Visiton 10-31-2022 Follow-up visit [id number] Lawson Lopez 1980 [facility] Provider Department Center 10/31/2022 [place]-RAFAT GARCIA CINDY Sin Family History Problem Relation Age of Onset Coronary artery disease Mother's Brother Peripheral vascular disease Mother's Brother Family Status - Relation Status Age at Mother's Brother Level of Service:14623 ID OFFICE/OUTPATIENT ESTABLISHED HIGH MDM 40-54 MIN Normal [facility] Orders Onlyon 10-31-2022 Orders Only [id number] Lawson Lopez 1980 [facility] Provider Department Center 10/31/2022 TAE BENÍTEZ CINDY Sin Family History Problem Relation Age of Onset Coronary artery disease Mother's Brother Peripheral vascular disease Mother's Brother Family Status - Relation Status Age at Mother's Brother Normal [facility] Activated partial thrombopla stin time (aPTT) in platelet poor plasma by coagulation aOrdered By: Socorro Osullivan on 10-11-2022 aPTT Coag (PPP) [Time] 27.7 s 25.1-36.[address] [facility] Automated basophil %Ordered By: Socorro Osullivan on 10-11-2022 Basophils/100 WBC (Bld) 0.9 % Normal . [facility] Comment on above: Performed By: #### H S TROP, CBC, PT, BNP, CK, PTT, BMP #### [address] Automated basophil countOrde red By: Socorro Osullivan on 10-11-2022 Basophils (Bld) [#/Vol] 0.1 10*3/uL Normal 0.0-0.[address] [facility] Comment on above: Result Comment: PERF ORMED BY: [place] [address] PATHOLOGIST [employer] MECHANIC BRICE STEPHEN M.D. Performed By: #### H S TROP, CBC, PT, BNP, CK, PTT, BMP #### [address] Automated blood monocyte cou ntOrdered By: Socorro Osullivan on 10-11-2022 Monocytes (Bld) [#/Vol] 0.7 10*3/uL Normal 0.0-0.[address] [facility] Comment on above: Performed By: #### H S TROP, CBC, PT, BNP, CK, PTT, BMP #### [address] Automated eosinophil %Ordere d By: Socorro Osullivan on 10-11-2022 Eosinophils/100 WBC (Bld) 2.5 % Normal . [facility] Comment on above: Performed By: #### H S TROP, CBC, PT, BNP, CK, PTT, BMP #### [address] Automated eosinophil countOr dered By: Socorro Osullivan on 10-11-2022 Eosinophils (Bld) [#/Vol] 0.2 10*3/uL Normal 0.0-0.[address] [facility] Comment on above: Performed By: #### H S TROP, CBC, PT, BNP, CK, PTT, BMP #### [facility] [address] [place] [address] Automated monocyte %Ordered By: Socorro Osullivan on 10-11-2022 Monocytes/100 WBC (Bld) 7.2 % Normal . [facility] Comment on above: Performed By: #### H S TROP, CBC, PT, BNP, CK, PTT, BMP #### [address] Automated neutrophil %Ordere d By: Socorro Osullivan on 10-11-2022 Neutrophils/100 WBC (Bld) 70.8 % Normal . [facility] Comment on above: Performed By: #### H S TROP, CBC, PT, BNP, CK, PTT, BMP #### [address] BNP ser/plasOrdered By: Lisa Osullivan on 10-11-2022 Natriuretic peptide B (Bld) [Mass/Vol] 21.0 pg/mL Normal 5-[address] [facility] Comment on above: Result Comment: PERF ORMED BY: [place] [address] PATHOLOGIST [employer] MECHANIC BRICE STEPHEN M.D. Performed By: #### H S TROP, CBC, PT, BNP, CK, PTT, BMP #### [address] Basic Metabolic Panelon Creatinine Clr Calc Pharmacy 158.41 Normal [facility] Comment on above: Result Comment: PERF ORMED BY: [place] [address] PATHOLOGIST [employer] MECHANIC BRICE STEPHEN M.D. Performed By: #### H S TROP, CBC, PT, BNP, CK, PTT, BMP #### [address] GFR/1.73 sq M.predicted MDRD (S/P/Bld) [Vol rate/Area] mL/min/{1.73_m2} Normal [facility] Comment on above: Performed By: #### H S TROP, CBC, PT, BNP, CK, PTT, BMP #### [facility] [address] [place] [address] [place] Calcium [Mass/volume] in Ser um or PlasmaOrdered By: Socorro Osullivan on 10-11-2022 Calcium [Mass/Vol] 9.5 mg/dL Normal 8.6-10.3 [facility] Comment on above: Performed By: #### H S TROP, CBC, PT, BNP, CK, PTT, BMP #### [address] Carbon dioxide, total [Moles /volume] in Serum or PlasmaOrdered By: Socorro Osullivan on 10-11-2022 CO2 [Moles/Vol] 29.1 mmol/L Normal 21.0-31.0 [facility] Comment on above: Performed By: #### H S TROP, CBC, PT, BNP, CK, PTT, BMP #### [place] [address] [place] Chloride [Moles/volume] in S josselin or PlasmaOrdered By: Socorro Osullivan on 10-11-2022 Chloride [Moles/Vol] 102 mmol/L Normal 98-107 [facility] Comment on above: Performed By: #### H S TROP, CBC, PT, BNP, CK, PTT, BMP #### [place] [address] [place] Complete Blood Count Auto Di ffon 10-11-2022 Mean Corpuscular HGB Conc 35.1 g/dL Normal 32.5-35.6 [facility] Comment on above: Performed By: #### H S TROP, CBC, PT, BNP, CK, PTT, BMP #### [place] [address] [place] Monocytes/100 WBC (Bld) 18.08 % Normal 0.00-20.00 [facility] Comment on above: Performed By: #### H S TROP, CBC, PT, BNP, CK, PTT, BMP #### [address] NRBC% 0.2 /100{WBC} Normal 0-0.5 [facility] Comment on above: Performed By: #### H S TROP, CBC, PT, BNP, CK, PTT, BMP #### [address] Creatine kinase [Enzymatic a ctivity/volume] in Serum or PlasmaOrdered By: Socorro Osullivan on 10-11-2022 CK [Catalytic activity/Vol] 87 U/L Normal 30-[address] [facility] Comment on above: Performed By: #### H S TROP, CBC, PT, BNP, CK, PTT, BMP #### [address] Creatinine [Mass/volume] in Serum or PlasmaOrdered By: Socorro Osullivan on 10-11-2022 Creatinine [Mass/Vol] 0.79 mg/dL Normal 0.70-1.[address] [facility] Comment on above: Performed By: #### H S TROP, CBC, PT, BNP, CK, PTT, BMP #### [address] ECG 12 lead ECGon 10-11-2022 ECG 12 lead ECG [facility] [place] [address] [place] [address] Electrocardiograph Report Signed Patient: Lawson Lopez MR#: [id number] : 1980 Acct:[id number] Age/Sex: 42 / M ADM Date: 10/11/22 Loc: ER Room: Type: [facility] ER Attending Dr: Ordering Provider: Scoorro [place] MD Date of Service: 10/11/2204/04/1247 ECG/ECG [...] was found Confirmed by MARCELA MARTINEZ DO ([id number]) on 10/11/2022 4:18:13 PM Referred By: Electronically Signed By:MARCELA MARTINEZ DO Transcribed By: MUS Signed By Marcela Martinez DO 10/11 1618 Normal [facility] Erythrocyte distribution wid th [Ratio] by Automated countOrdered By: Socorro Osullivan on 10-11-2022 Erythrocyte distribution width (RBC) [Ratio] 13.3 % Normal 12.0-14.[address] [facility] Comment on above: Performed By: #### H S TROP, CBC, PT, BNP, CK, PTT, BMP #### [facility] [address] [place] [address] [place] Erythrocytes [#/volume] in B lood by Automated countOrdered By: Socorro Osullivan on 10-11-2022 RBC (Bld) [#/Vol] 4.67 10*6/uL Normal 3.90-5.60 [facility] Comment on above: Performed By: #### H S TROP, CBC, PT, BNP, CK, PTT, BMP #### [facility] [address] Glucose [Mass/volume] in Ser um or PlasmaOrdered By: Socorro Osullivan on 10-11-2022 Glucose [Mass/Vol] 90 mg/dL Normal 70-100 [facility] Comment on above: ADA recommended refe rence rangeRandom Glucose Reference Range is dependent on time and content of last meal. Glucose of more than 200 mg/dL in a nonstressed, ambulatory subject supports the diagnosis of Diabetes Mellitus. Result Comment: [place] om Glucose Reference Range is dependent on time and content of last meal. Glucose of more than 200 mg/dL in a nonstressed, ambulatory subject supports the diagnosis of Diabetes Mellitus. ADA recommended reference range Performed By: #### H S TROP, CBC, PT, BNP, CK, PTT, BMP #### [address] Hematocrit [Volume Fraction] of Blood by Automated countOrdered By: Socorro Osullivan on 10-11-2022 Hematocrit (Bld) [Volume fraction] 40.4 % Normal 38.8-50.[address] [facility] Comment on above: Performed By: #### H S TROP, CBC, PT, BNP, CK, PTT, BMP #### [address] Hemoglobin [Mass/volume] in BloodOrdered By: Socorro Osullivan on 10-11-2022 Hemoglobin (Bld) [Mass/Vol] 14.2 g/dL Normal 13.0-17.[address] [facility] Comment on above: Performed By: #### H S TROP, CBC, PT, BNP, CK, PTT, BMP #### [address] Ionized Calciumon 10-11-2022 Ionized Calcium 4.8 mg/dL Normal 4.5-5.6 [facility] Comment on above: Result Comment: Perf ormed at: CB - [facility] [address] [id number] Booster Operator: Willi Chestre PhD, Phone: [phone] PERFORMED BY: [place] [address] PATHOLOGIST TANK CAR MECHANIC BRICE STEPHEN M.D. Performed By: #### C AION #### [facility] , Leukocytes [#/volume] correc giselle for nucleated erythrocytes in Blood by Automated counOrdered By: Socorro Osullivan on 10-11-2022 WBC corrected for nucl RBC Auto (Bld) [#/Vol] 9.5 10*3/uL 4.1-10.[address] [facility] Leukocytes [#/volume] in Blo od by Automated countOrdered By: Socorro Osullivan on 10-11-2022 WBC (Bld) [#/Vol] 9.5 10*3/uL Normal 4.1-10.5 [facility] Comment on above: Performed By: #### H S TROP, CBC, PT, BNP, CK, PTT, BMP #### [facility] [address] [place] [address] Lymphocytes [#/volume] in Bl ood by Automated countOrdered By: Socorro Osullivan on 10-11-2022 Lymphocytes (Bld) [#/Vol] 1.8 10*3/uL Normal 1.00-4.[address] [facility] Comment on above: Performed By: #### H S TROP, CBC, PT, BNP, CK, PTT, BMP #### [address] Lymphocytes/100 leukocytes i n Blood by Automated countOrdered By: Socorro Osullivan on 10-11-2022 Lymphocytes/100 WBC (Bld) 18.6 % Normal . [facility] Comment on above: Performed By: #### H S TROP, CBC, PT, BNP, CK, PTT, BMP #### [address] MCH [Entitic mass] by Automa giselle countOrdered By: Socorro Osullivan on 10-11-2022 MCH (RBC) [Entitic mass] 30.4 pg Normal 27.5-35.[address] [facility] Comment on above: Performed By: #### H S TROP, CBC, PT, BNP, CK, PTT, BMP #### [address] MCHC Auto (RBC) [Mass/Vol]Or dered By: Socroro Osullivan on 10-11-2022 MCHC (RBC) [Mass/Vol] 35.1 g/dL 32.5-35.[address] [facility] MCV [Entitic volume] by Auto mated countOrdered By: Socorro Osullivan on 10-11-2022 MCV (RBC) [Entitic vol] 86.6 fL Normal 83.5-[address] [facility] Comment on above: Performed By: #### H S TROP, CBC, PT, BNP, CK, PTT, BMP #### [address] Monocyte distribution width [Entitic volume] in Blood by AutomatedOrdered By: Socorro Osullivan on 10-11-2022 Monocyte distribution width Auto (Bld) [Entitic vol] 18.08 % 0.00-20.[address] [facility] Neutrophils [#/volume] in Bl ood by Automated countOrdered By: Socorro Osullivan on 10-11-2022 Neutrophils (Bld) [#/Vol] 6.7 10*3/uL Normal 1.8-7.[address] [facility] Comment on above: Performed By: #### H S TROP, CBC, PT, BNP, CK, PTT, BMP #### [facility] [address] [place] [address] No Panel InformationOrdered By: Socorro Osullivan on 10-11-2022 Estimated GFR (CKD-EPI) > 60.0 mL/Min [facility] Creatinine Clearance (Chem 158.[address] [facility] Nucleated erythrocytes [Pres ence] in Blood by Automated countOrdered By: Socorro Osullivan on 10-11-2022 Nucleated RBC Auto Ql (Bld) 0.2 /100{WBC} 0-0.[address] [facility] Partial Thromboplastin Timeo n 10-11-2022 aPTT Coag (Bld) [Time] 27.7 s Normal 25.1-36.5 [facility] Comment on above: Result Comment: PERF ORMED BY: [place] [address] PATHOLOGIST [employer] CAR MECHANIC BRICE STEPHEN M.D. Performed By: #### H S TROP, CBC, PT, BNP, CK, PTT, BMP #### [facility] [address] [place] [address] Platelet mean volume [Entiti c volume] in Blood by Automated countOrdered By: Socorro Osullivan on 10-11-2022 Platelet mean volume (Bld) [Entitic vol] 8.0 fL Normal 6.6-10.[address] [facility] Comment on above: Performed By: #### H S TROP, CBC, PT, BNP, CK, PTT, BMP #### [address] Platelet poor plasma interna tional normalized ratio (INR) by coagulation assay (relatOrdered By: Socorro Osullivan on 08-01-2023 INR Coag (PPP) [Relative time] 1.0 {INR} Normal [facility] Comment on above: INR Therapeutic Rang [...] with mechanical heart valves: 3 - 4.5 Result Comment: INR Therapeutic Range A) Pre- [...] valves: 3 - 4.5 Performed By: #### H S TROP, CBC, PT, BNP, CK, PTT, BMP #### [facility] [address] [place] [address] Platelets [#/volume] in Bloo d by Automated countOrdered By: Socorro Osullivan on 10-11-2022 Platelets (Bld) [#/Vol] 218 10*3/uL Normal 150-[address] [facility] Comment on above: Performed By: #### H S TROP, CBC, PT, BNP, CK, PTT, BMP #### [address] Potassium [Moles/volume] in Serum or PlasmaOrdered By: Socorro Osullivan on 10-11-2022 Potassium [Moles/Vol] 3.8 mmol/L Normal 3.5-5.[address] [facility] Comment on above: Performed By: #### H S TROP, CBC, PT, BNP, CK, PTT, BMP #### [facility] [address] [place] [address] Prothrombin Time INROrdered By: Socorro Osullivan on 10-11-2022 PT Coag (PPP) [Time] 12.0 s Normal 9.0-12.9 [facility] Comment on above: Performed By: #### H S TROP, CBC, PT, BNP, CK, PTT, BMP #### [address] Serum or plasma anion gap de terminationOrdered By: Socorro Osullivan on 10-11-2022 Anion gap [Moles/Vol] 10.7 mmol/L Normal 6.0-15.[address] [facility] Comment on above: Performed By: #### H S TROP, CBC, PT, BNP, CK, PTT, BMP #### [address] Sodium [Moles/volume] in Ser um or PlasmaOrdered By: Socorro Osullivan on 10-11-2022 Sodium [Moles/Vol] 138 mmol/L Normal 136-145 [facility] Comment on above: Performed By: #### H S TROP, CBC, PT, BNP, CK, PTT, BMP #### [address] Troponin I High Sensitivityo n 10-11-2022 Troponin I High Sensitivity 6.3 pg/mL Normal 0.0-20.0 [facility] Comment on above: Result Comment: PERF ORMED BY: [place] [address] PATHOLOGIST [employer] MECHANIC BRICE STEPHEN M.D. Performed By: #### H S TROP, CBC, PT, BNP, CK, PTT, BMP #### [address] Troponin I.cardiac [Mass/vol ume] in Serum or Plasma by Detection limit <= 0.01 ng/Ordered By: Socorro Osullivan on 10-11-2022 Troponin I.cardiac DL <= 0.01 ng/mL [Mass/Vol] 6.3 pg/mL 0.0-20.[address] [facility] Urea nitrogen [Mass/volume] in Serum or PlasmaOrdered By: Socorro Osullivan on 10-11-2022 Urea nitrogen [Mass/Vol] 11 mg/dL Normal 7-[address] [facility] Comment on above: Performed By: #### H S TROP, CBC, PT, BNP, CK, PTT, BMP #### [address] XR chest 2V*on 10-11-2022 XR chest 2V* [facility] [address] [place] [address] XRay Report Signed Patient: Lawson Lopez MR#: [id number] : 1980 Acct:[id number] Age/Sex: 42 / M ADM Date: 10/11/22 [...] Anguiano Jr., DDomitilaODomitila10/11/2022 1:17 PM Dictation Location: [place] [address] Transcribed By: [facility] 10/11/22 131 Dictated By: Wayne Anguiano Jr, DO 10/11/22 131 Signed By: 10/11/22 1317 Normal [facility] BNPon 05-16-2022 Natriuretic peptide B (Bld) [Mass/Vol] 51.0 pg/mL Normal <=450.0 [facility] Comment on above: Performed By: #### B BLOWING ENGINEER, CMADM, BMP #### [facility] [address] [place] [address] [address] Divina Patino CARDIAC DAT 3-6on 3 CK [Catalytic activity/Vol] 43 U/L Normal 39-308 [facility] Comment on above: Performed By: #### L ACT #### [facility] [address] [place] [address] [address] Divina Patino HSTROP 10.6 pg/mL Normal 4.0-76.1 [facility] Comment on above: Result Comment: CUT- OFF POINTS HAVE BEEN ESTABLISHED BASED ON THE FOURTH UNIVERSAL DEFINITIONS OF MYOCARDIAL INFARCTION. THE UPPER REFERENCE LIMIT (URL) OF TROPONIN, DEFINED THE 99TH PERCENTILE OF cTnI DISTRIBUTION IN A REFERENCE POPULATION, HAS BEEN CONFIRMED THE DECISION THRESHOLD FOR AL DIAGNOSIS. Performed By: #### L ACT #### [facility] [address] [place] [address] Dr. Divina Patino CARDIAC DAT ADMITon 023 CK [Catalytic activity/Vol] 44 U/L Normal 39-308 [facility] Comment on above: Performed By: #### B BLOWING ENGINEER, CMADM, BMP #### [facility] [address] [place] [address] Dr. Divina Patino CK.MB [Mass/Vol] ng/mL Normal <=3.60 [facility] Comment on above: Performed By: #### B BLOWING ENGINEERESME, BMP #### [facility] [address] [place] [address] Dr. Divina Patino HSTROP 9.9 pg/mL Normal 4.0-76.1 [facility] Comment on above: Result Comment: CUT- OFF POINTS HAVE BEEN ESTABLISHED BASED ON THE FOURTH UNIVERSAL DEFINITIONS OF MYOCARDIAL INFARCTION. THE UPPER REFERENCE LIMIT (URL) OF TROPONIN, DEFINED THE 99TH PERCENTILE OF cTnI DISTRIBUTION IN A REFERENCE POPULATION, HAS BEEN CONFIRMED THE DECISION THRESHOLD FOR AL DIAGNOSIS. Performed By: #### B BLOWING ENGINEER, MAGDADM, BMP #### [facility] [address] [place] [address] Dr. Divina Patino CIELO 21 ng/mL Normal 16-96 [facility] Comment on above: Performed By: #### B BLOWING ENGINEER, ESME, BMP #### [facility] [address] [place] [address] Dr. Divina Patino CBC AUTO DIFFon 05-16-2022 BASO # 0.1 103/ul Normal 0.0-0.1 [facility] Comment on above: Performed By: #### C BC #### [facility] [address] [place] [address] Dr. Divina Patino Basophils/100 WBC (Bld) 0.6 % Normal 0.2-2.0 [facility] Comment on above: Performed By: #### C BC #### [facility] [address] [place] [address] Dr. Divina Patino EO # 0.3 103/ul Normal 0.0-0.7 [facility] Comment on above: Performed By: #### C BC #### [facility] [address] [place] [address] Dr. Divina Patino Eosinophils/100 WBC (Bld) 2.3 % Normal 0.9-7.0 [facility] Comment on above: Performed By: #### C BC #### [facility] [address] [place] [address] Dr. Divina Patino Erythrocyte distribution width (RBC) [Ratio] 12.3 % Normal 11.0-15.0 [facility] Comment on above: Performed By: #### C BC #### [facility] [address] [place] [address] Dr. Divina Patino Hematocrit (Bld) [Volume fraction] 41.6 % Critically low 42.0-54.0 [facility] Comment on above: Performed By: #### C BC #### [facility] [address] [place] [address] Dr. Divina Patino Hemoglobin (Bld) [Mass/Vol] 14.6 g/dL Normal 14.0-18.0 [facility] Comment on above: Performed By: #### C BC #### [facility] [address] [place] [address] Dr. Divina Patino IG # 0.12 10e3/ul Critically high 0.00-0.03 [facility] Comment on above: Performed By: #### C BC #### [facility] [address] [place] [address] Dr. Divina Patino IG % 1.0 % Critically high 0.0-0.5 [facility] Comment on above: Performed By: #### C BC #### [facility] [address] [place] [address] Dr. Divina Patino LYMPH # 2.7 103/ul Normal 1.2-3.8 [facility] Comment on above: Performed By: #### C BC #### [facility] [address] [place] [address] Dr. Divina Patino Lymphocytes/100 WBC (Bld) 23.0 % Normal 20.5-60.0 [facility] Comment on above: Performed By: #### C BC #### [facility] [address] [place] [address] Dr. Divina Patino MANUAL DIFF REQ NO Normal [facility] Comment on above: Performed By: #### C BC #### [facility] [address] [place] [address] Dr. Divina Patino MCH (RBC) [Entitic mass] 30.0 pg Normal 25.9-34.0 [facility] Comment on above: Performed By: #### C BC #### [facility] [address] [place] [address] Dr. Divina Patino MCHC (RBC) [Mass/Vol] 35.1 g/dL Normal 29.9-35.2 [facility] Comment on above: Performed By: #### C BC #### [facility] [address] [place] [address] Dr. Divina Patino MCV (RBC) [Entitic vol] 85.6 fL Normal 80.0-94.0 [facility] Comment on above: Performed By: #### C BC #### [facility] [address] [place] [address] Dr. Divina Patino MONO # 1.0 103/ul Critically high 0.3-0.8 [facility] Comment on above: Performed By: #### C BC #### [facility] [address] [place] [address] Dr. Divina Patino Monocytes/100 WBC (Bld) 8.6 % Normal 1.7-12.0 [facility] Comment on above: Performed By: #### C BC #### [facility] [address] [place] [address] Dr. Divina Patino NEUT # 7.4 103/ul Critically high 1.4-6.5 [facility] Comment on above: Performed By: #### C BC #### [facility] [address] [place] [address] Dr. Divina Patino Neutrophils/100 WBC (Bld) 64.5 % Normal 43.0-75.0 [facility] Comment on above: Performed By: #### C BC #### [facility] [address] [address] [address] Divina Patino Platelet mean volume (Bld) [Entitic vol] 9.9 fL Normal 9.5-13.5 [facility] Comment on above: Performed By: #### C BC #### [facility] [address] [place] [address] [address] Divina Patino PLT 231 103/ul Normal 150-450 [facility] Comment on above: Performed By: #### C BC #### [facility] [address] [place] [address] Dr. Divina Patino RBC 4.86 106/ul Normal 4.70-6.10 [facility] Comment on above: Performed By: #### C BC #### [facility] [address] [place] [address] Dr. Divina Patino WBC 11.5 103/ul Critically high 4.0-11.0 [facility] Comment on above: Performed By: #### C BC #### [facility] [address] [place] [address] Dr. Divina Patino D-DIMERon 05-16-2022 D-DIMER 0.19 mg/L FEU Normal <=0.59 [facility] Comment on above: Performed By: #### D DIM #### [facility] [address] [place] [address] Dr. Divina Patino D-DIMER COMMENTS SEE BELOW Normal [facility] Comment on above: Result Comment: Incr [...] Performed By: #### D DIM #### [facility] [address] [place] [address] Dr. Divina Patino LACTATE/LACTIC ACIDon 2022 Lactate [Moles/Vol] 1.5 mmol/L Normal 0.4-1.9 [facility] Comment on above: Performed By: #### L ACT #### [facility] [address] [place] [address] Dr. Divina Patino PROF CHEM 8 (BAS METB)on Anion gap [Moles/Vol] 13.7 mmol/L Normal [facility] Comment on above: Performed By: #### B BLOWING ENGINEER, CMADM, BMP #### [facility] [address] [place] [address] Dr. Divina Patino Calcium [Mass/Vol] 8.7 mg/dL Normal 8.5-10.1 [facility] Comment on above: Performed By: #### B BLOWING ENGINEER, CMADM, BMP #### [facility] [address] [place] [address] Dr. Divina Patino Chloride [Moles/Vol] 102 mmol/L Normal 98-107 [facility] Comment on above: Performed By: #### B BLOWING ENGINEER, CMADM, BMP #### [facility] [address] [place] [address] Dr. Divina Patino CO2 [Moles/Vol] 27.1 mmol/L Normal 21.0-32.0 [facility] Comment on above: Performed By: #### B BLOWING ENGINEER, CMADM, BMP #### [facility] [address] [place] [address] Dr. Divina Patino Creatinine [Mass/Vol] 0.85 mg/dL Normal 0.70-1.30 [facility] Comment on above: Performed By: #### B BLOWING ENGINEER, CMADM, BMP #### [facility] [address] [place] [address] Dr. Divina Patino EGFR-AF [place] >60 Normal >=60 [facility] Comment on above: Performed By: #### B BLOWING ENGINEER, CMADM, BMP #### [facility] [address] [place] [address] Dr. Divina Patino EGFR-NON AF [place] >60 Normal >=60 [facility] Comment on above: Performed By: #### B ESME ORTEGA, BMP #### [facility] [address] [place] [address] Dr. Divina Patino Glucose [Mass/Vol] 114 mg/dL Critically high 74-106 [facility] Comment on above: Performed By: #### B ESME ORTEGA, BMP #### [facility] [address] [place] [address] Dr. Divina Patino Potassium [Moles/Vol] 3.8 mmol/L Normal 3.5-5.1 [facility] Comment on above: Performed By: #### B ESME ORTEGA, BMP #### [facility] [address] [place] [address] Dr. Divina Patino Sodium [Moles/Vol] 139 mmol/L Normal 136-145 [facility] Comment on above: Performed By: #### B ESME ORTEGA, BMP #### [facility] [address] [place] [address] Dr. Divina Patino Urea nitrogen [Mass/Vol] 15.0 mg/dL Normal 7.0-18.0 [facility] Comment on above: Performed By: #### B ESME ORTEGA, BMP #### [facility] [address] [place] [address] Dr. Divina Patino Urea nitrogen/Creatinine [Mass ratio] 17.6 mg/mg Normal [facility] Comment on above: Performed By: #### B ESME ORTEGA, BMP #### [facility] [address] [place] [address] Dr. Divina Patino XR CHEST 1 Von [...] PURCELL Date: 2022-05-15 23:20 Normal [facility] CARDIAC DAT ADMITon 023 CK [Catalytic activity/Vol] 78 U/L Normal 39-308 [facility] Comment on above: Performed By: #### L ACT #### [facility] [address] [place] [address] Dr. Divina Patino CK.MB [Mass/Vol] 1.08 ng/mL Normal <=3.60 [facility] Comment on above: Performed By: #### L ACT #### [facility] [address] [place] [address] Dr. Divina Patino HSTROP 12.2 pg/mL Normal 4.0-76.1 [facility] Comment on above: Result Comment: CUT- OFF POINTS HAVE BEEN ESTABLISHED BASED ON THE FOURTH UNIVERSAL DEFINITIONS OF MYOCARDIAL INFARCTION. THE UPPER REFERENCE LIMIT (URL) OF TROPONIN, DEFINED THE 99TH PERCENTILE OF cTnI DISTRIBUTION IN A REFERENCE POPULATION, HAS BEEN CONFIRMED THE DECISION THRESHOLD FOR AL DIAGNOSIS. Performed By: #### L ACT #### [facility] [address] [place] [address] Dr. Divina Patino CIELO 24 ng/mL Normal 16-96 [facility] Comment on above: Performed By: #### L ACT #### [facility] [address] [place] [address] Dr. Divina Patino CBC AUTO DIFFon 05-11-2022 BASO # 0.1 103/ul Normal 0.0-0.1 [facility] Comment on above: Performed By: #### L ACT #### [facility] [address] [place] [address] Dr. Divina Patino Basophils/100 WBC (Bld) 0.6 % Normal 0.2-2.0 [facility] Comment on above: Performed By: #### L ACT #### [facility] [address] [place] [address] Dr. Divina Patino EO # 0.2 103/ul Normal 0.0-0.7 [facility] Comment on above: Performed By: #### L ACT #### [facility] [address] [place] [address] Dr. Divina Patino Eosinophils/100 WBC (Bld) 2.0 % Normal 0.9-7.0 [facility] Comment on above: Performed By: #### L ACT #### [facility] [address] [place] [address] Dr. Divina Patino Erythrocyte distribution width (RBC) [Ratio] 12.4 % Normal 11.0-15.0 [facility] Comment on above: Performed By: #### L ACT #### [facility] [address] [place] [address] Dr. Divina Patino Hematocrit (Bld) [Volume fraction] 43.8 % Normal 42.0-54.0 [facility] Comment on above: Performed By: #### L ACT #### [facility] [address] [place] [address] Dr. Divina Patino Hemoglobin (Bld) [Mass/Vol] 15.3 g/dL Normal 14.0-18.0 [facility] Comment on above: Performed By: #### L ACT #### [facility] [address] [place] [address] Dr. Divina Patino IG # 0.06 10e3/ul Critically high 0.00-0.03 [facility] Comment on above: Performed By: #### L ACT #### [facility] [address] [place] [address] Dr. Divina Patino IG % 0.6 % Critically high 0.0-0.5 [facility] Comment on above: Performed By: #### L ACT #### [facility] [address] [place] [address] Dr. Divina Patino LYMPH # 2.0 103/ul Normal 1.2-3.8 [facility] Comment on above: Performed By: #### L ACT #### [facility] [address] [place] [address] Dr. Divina Patino Lymphocytes/100 WBC (Bld) 19.9 % Critically low 20.5-60.0 [facility] Comment on above: Performed By: #### L ACT #### [facility] [address] [place] [address] Dr. Divina Patino MANUAL DIFF REQ NO Normal [facility] Comment on above: Performed By: #### L ACT #### [facility] [address] [place] [address] Dr. Divina Patino MCH (RBC) [Entitic mass] 30.2 pg Normal 25.9-34.0 [facility] Comment on above: Performed By: #### L ACT #### [facility] [address] [place] [address] Dr. Divina Patino MCHC (RBC) [Mass/Vol] 34.9 g/dL Normal 29.9-35.2 [facility] Comment on above: Performed By: #### L ACT #### [facility] [address] [place] [address] Dr. Divina Patino MCV (RBC) [Entitic vol] 86.6 fL Normal 80.0-94.0 [facility] Comment on above: Performed By: #### L ACT #### [facility] [address] [place] [address] Dr. Divina Patino MONO # 0.8 103/ul Normal 0.3-0.8 [facility] Comment on above: Performed By: #### L ACT #### [facility] [address] [place] [address] Dr. Divina Patino Monocytes/100 WBC (Bld) 7.7 % Normal 1.7-12.0 [facility] Comment on above: Performed By: #### L ACT #### [facility] [address] [place] [address] Dr. Divina Patino NEUT # 7.1 103/ul Critically high 1.4-6.5 [facility] Comment on above: Performed By: #### L ACT #### [facility] [address] [place] [address] Dr. Divina Patino Neutrophils/100 WBC (Bld) 69.2 % Normal 43.0-75.0 [facility] Comment on above: Performed By: #### L ACT #### [facility] [address] [place] [address] Dr. Divina Patino Platelet mean volume (Bld) [Entitic vol] 10.3 fL Normal 9.5-13.5 [facility] Comment on above: Performed By: #### L ACT #### [facility] [address] [address] [address] Divina Patino PLT 238 103/ul Normal 150-450 [facility] Comment on above: Performed By: #### L ACT #### [facility] [address] [address] [address] Divina Patino RBC 5.06 106/ul Normal 4.70-6.10 [facility] Comment on above: Performed By: #### L ACT #### [facility] [address] [address] [address] Divina Patino WBC 10.3 103/ul Normal 4.0-11.0 [facility] Comment on above: Performed By: #### L ACT #### [facility] [address] [place] [address] Dr. Divina Patino CRPon 05-11-2022 CRP [Mass/Vol] mg/L Normal <=1.0 [facility] Comment on above: Performed By: #### L ACT #### [facility] [address] [place] [address] HEAD WO CONon [...] JOHNSTON Date: 2022-05-11 19:47 Normal [facility]on SARS-CoV-2 (COVID-19) RNA JERRICA+probe Ql (Unsp spec) Not detected Normal NOT DETECTED [facility] Comment on above: Result Comment: When [...] for this test is supported by the Cell Stripper Final of Health and Human Service's declaration that [...] used). Performed By: #### C VDTB #### [facility] [address] [place] [address] Dr. Divina Patino INFLUENZA A AND B AGon 05-11 [facility] SEE BELOW Normal [facility] Comment on above: Result Comment: Nega tive for Flu A protein angiten. Infection due to Flu A cannot be ruled out. Flu A angiten in the sample may be below the detection limit of the test. Performed By: #### I NFLUAB #### [facility] [address] [place] [address] Dr. [facility] Normal [facility] Comment on above: Result Comment: Nega tive for Flu B protein antigen. Infection due to Flu B cannot be ruled out. Flu B antigen in the sample may be below the detection limit of the test. Performed By: #### I NFLUAB #### [facility] [address] [place] [address] Dr. Divina Patino INFLUENZA A AG Negative Normal NEGATIVE SEE COMMENT [facility] Comment on above: Performed By: #### I NFLUAB #### [facility] [address] [place] [address] Dr. Divina Patino INFLUENZA B AG Negative Normal NEGATIVE SEE COMMENT [facility] Comment on above: Performed By: #### I NFLUAB #### [facility] [address] [place] [address] Dr. Divina Patino LACTATE/LACTIC ACIDon 2022 Lactate [Moles/Vol] 1.8 mmol/L Normal 0.4-1.9 [facility] Comment on above: Performed By: #### L ACT #### [facility] [address] [place] [address] Dr. Divina Patino MONOon 05-11-2022 Monocytes (Bld) [#/Vol] Negative Normal NEGATIVE [facility] Comment on above: Performed By: #### M LEANDRO #### [facility] [address] [place] [address] Dr. Divina Patino PROF CHEM 8 (BAS METB)on Anion gap [Moles/Vol] 12.8 mmol/L Normal [facility] Comment on above: Performed By: #### L ACT #### [facility] [address] [place] [address] Dr. Divina Patino Calcium [Mass/Vol] 9.1 mg/dL Normal 8.5-10.1 [facility] Comment on above: Performed By: #### L ACT #### [facility] [address] [place] [address] Dr. Divina Patino Chloride [Moles/Vol] 101 mmol/L Normal 98-107 [facility] Comment on above: Performed By: #### L ACT #### [facility] [address] [place] [address] Dr. Divina Patino CO2 [Moles/Vol] 26.9 mmol/L Normal 21.0-32.0 [facility] Comment on above: Performed By: #### L ACT #### [facility] [address] [place] [address] Dr. Divina Patino Creatinine [Mass/Vol] 0.90 mg/dL Normal 0.70-1.30 [facility] Comment on above: Performed By: #### L ACT #### [facility] [address] [place] [address] Dr. Divina Patino EGFR-AF [place] >60 Normal >=60 [facility] Comment on above: Performed By: #### L ACT #### [facility] [address] [address] [address] Divina Patino EGFR-NON AF [place] >60 Normal >=60 [facility] Comment on above: Performed By: #### L ACT #### [facility] [address] [address] [address] Divina Patino Glucose [Mass/Vol] 110 mg/dL Critically high 74-106 [facility] Comment on above: Performed By: #### L ACT #### [facility] [address] [address] [address] Divina Patino Potassium [Moles/Vol] 3.7 mmol/L Normal 3.5-5.1 [facility] Comment on above: Performed By: #### L ACT #### [facility] [address] [address] [address] Divina Patino Sodium [Moles/Vol] 137 mmol/L Normal 136-145 [facility] Comment on above: Performed By: #### L ACT #### [facility] [address] [address] [address] Divina Patino Urea nitrogen [Mass/Vol] 11.0 mg/dL Normal 7.0-18.0 [facility] Comment on above: Performed By: #### L ACT #### [facility] [address] [address] [address] Divina Patino Urea nitrogen/Creatinine [Mass ratio] 12.2 mg/mg Normal [facility] Comment on above: Performed By: #### L ACT #### [facility] [address] [address] [address] Divina Patino SED RATE FRENCH SETTLEMENTERGRENon 2022 SED RATE 16 mm/hr Critically high <=15 [facility] Comment on above: Performed By: #### L ACT #### [facility] [address] [address] [address] Divina Patino TSHon 05-11-2022 TSH 3.949 uIU/mL Critically high 0.358-3.740 [facility] Comment on above: Performed By: #### L ACT #### [facility] [address] [address] [address] Divina Patino COVID-19 SOFIAOrdered By: Andres Elizondo on 12-02-2021 SARS-CoV+SARS-CoV-2 (COVID-19) Ag IA.rapid Ql (Resp) Negative Negative [facility] Comment on above: This is a duplicate Judith SARS Antigen (ANURAG) result to be used for statistical tracking purpose only. No Panel InformationOrdered By: Elian Elizondo on 12-02-2021 SARS Antigen (LFIA) [facility] CBC with Auto Differentialon 06-08-2021 Absolute Eos # 0.11 [facility] th Absolute Immature Granulocyte 0.06 [employer] Absolute Lymph # 1.65 [employer] [facility] Absolute Blount # 1.03 [facility] Basophils (Bld) [#/Vol] 0.07 10*3/uL [employer] Basophils/100 WBC (Bld) 1 % 0 - 2 % [employer] Eosinophils/100 WBC (Bld) 1 % 1 - 4 % [employer] Hematocrit (Bld) [Volume fraction] 47.5 % 40.7 - 50.3 % [employer] Hemoglobin.gastroint estinal spec 1 Ql (Stl) 16.3 g/dL 13.0 - 17.0 g/dL [employer] Immature granulocytes/100 WBC (Bld) 1 % High 0 [employer] Interpretation and review of laboratory results Abnormal [employer] Lymphocytes/100 WBC (Bld) 14 % Low 24 - 43 % [employer] MCH (RBC) [Entitic mass] 30.5 pg 25.2 - 33.5 pg [employer] MCHC (RBC) [Mass/Vol] 34.3 g/dL 28.4 - 34.8 g/dL [employer] MCV (RBC) [Entitic vol] 89.0 fL 82.6 - 102.9 fL [employer] Monocytes/100 WBC (Bld) 9 % 3 - 12 % [employer] NRBC Automated 0.0 0.0 per 100 WBC [employer] Platelet distribution width (Bld) [Ratio] 12.5 % 11.8 - 14.4 % [employer] Platelet mean volume (Bld) [Entitic vol] 10.8 fL 8.1 - 13.5 fL [facility] Platelets (Bld) [#/Vol] 231 10*3/uL [facility] RBC (Bld) [#/Vol] 5.34 10*6/uL 4.21 - 5.77 m/uL [facility] Segmented neutrophils/100 WBC (Bld) 74 % High 36 - 65 % [facility] Segs Absolute 9.05 High [facility] WBC (Bld) [#/Vol] 12.0 10*3/uL High [facility] CT ABDOMEN PELVIS W IV CONTR AST Additional Contrast? Noneon 06-08-2021 Findings suspicious for acute enteritis. Diffuse hepatic steatosis. Nonobstructing stones in the left kidney. Normal appendix. [facility] EXAM[facility]ATION: CT OF THE ABDOMEN AND [...] COMPARISON: 02/05/2019 HISTORY: ORDERING SYSTEM PROVIDED HISTORY: [facility] pain TECHNOLOGIST PROVIDED HISTORY: [facility] pain Decision Support Exception - unselect [...] aneurysm. Bones/Soft Tissues: Mild multilevel thoracolumbar spondylosis. MHPN RIS [place] MD - 06/08/2021 EXAMINATION: [...] COMPARISON: 02/05/2019 HISTORY: ORDERING SYSTEM PROVIDED HISTORY: [facility] pain TECHNOLOGIST PROVIDED HISTORY: [facility] pain Decision Support Exception - unselect [...] stones in the left kidney. Normal appendix. [employer] Phone: Radiology Study observation (narrative) [employer] Phone: CT ABDOMEN PELVIS W IV CONTR AST Additional Contrast? NoneOrdered By: Ok Rodgers on 06-08-2021 [employer] Phone: Comprehensive Metabolic Pane karan 06-08-2021 Albumin [Mass/Vol] 4.6 g/dL 3.5 - 5.2 g/dL [facility] Albumin/Globulin [Mass ratio] 1.5 {ratio} [facility] ALP (Bld) [Catalytic activity/Vol] 90 U/L 40 - 129 U/L [facility] ALT [Catalytic activity/Vol] 37 U/L 5 - 41 U/L [facility] Anion gap [Moles/Vol] 10 mmol/L 9 - 17 mmol/L [facility] AST [Catalytic activity/Vol] 18 U/L <40 [facility] Bilirubin [Mass/Vol] 0.83 mg/dL 0.3 - 1.2 mg/dL [facility] Calcium [Mass/Vol] 9.7 mg/dL 8.6 - 10.4 mg/dL [facility] Chloride [Moles/Vol] 101 mmol/L 98 - 107 mmol/L [facility] CO2 [Moles/Vol] 29 mmol/L 20 - 31 mmol/L [facility] Creatinine [Mass/Vol] 0.83 mg/dL 0.70 - 1.20 mg/dL [facility] Free PSA/Total PSA [Mass fraction] 7.6 g/dL 6.4 - 8.3 g/dL [facility] GFR >60 >60 mL/min [facility] GFR Non- >60 >60 mL/min [facility] Glucose [Mass/Vol] 110 mg/dL High 70 - 99 mg/dL [facility] Interpretation and review of laboratory results Abnormal [facility] Potassium [Moles/Vol] 4.2 mmol/L 3.7 - 5.3 mmol/L [facility] Sodium [Moles/Vol] 140 mmol/L 135 - 144 mmol/L [facility] Urea nitrogen (BldV) [Mass/Vol] 10 mg/dL 6 - 20 mg/dL [facility] Urea nitrogen/Creatinine (Bld) [Mass ratio] 12 [facility] Laboratory - Chemistry and C hemistry - challengeon 06-08-2021 GFR/1.73 sq M.predicted MDRD (S/P/Bld) [Vol rate/Area] [facility] Comment on above: Average GFR for 40-4 9 years old: 99 mL/min/1.73sq m Chronic Kidney Disease: <60 mL/min/1.73sq m Kidney failure: <15 mL/min/1.73sq m eGFR calculated using average adult body mass. Additional eGFR calculator available at: http://www.[employer]Recorded Future/multiple_crcl_2011.htm Stage 1: Some kidney damage normal GFR Stage 2: Mild kidney damage GFR 60-89 Stage 3: Moderate kidney damage GFR 30-59 Stage 4: Severe kidney damage GFR 15-29 Stage 5: Severe kidney damage GFR <15 ESRD - chronic treatment by dialysis or transplant Lactic Acidon 06-08-2021 Lactate [Moles/Vol] 2.1 mmol/L 0.5 - 2.2 mmol/L [facility] Lipaseon 06-08-2021 Lipase [Catalytic activity/Vol] 30 U/L 13 - 60 U/L [facility] No Panel Informationon 06-08 [facility] Basic Metabolic Panelon Anion gap [Moles/Vol] 9 mmol/L 9 - 17 mmol/L [place] Bun/Cre Ratio 12 [place] Calcium [Mass/Vol] 8.8 mg/dL 8.6 - 10.4 mg/dL [place] Chloride [Moles/Vol] 98 mmol/L 98 - 107 mmol/L [place] CO2 [Moles/Vol] 26 mmol/L 20 - 31 mmol/L [place] Creatinine [Mass/Vol] 1.04 mg/dL 0.7 - 1.2 mg/dL [place] GFR >60 >60 mL/min [place] GFR Non- >60 >60 mL/min [place] Glucose [Mass/Vol] 111 mg/dL High 70 - 99 mg/dL [place] Interpretation and review of laboratory results Abnormal [place] Potassium [Moles/Vol] 3.9 mmol/L 3.7 - 5.3 mmol/L [place] Sodium [Moles/Vol] 133 mmol/L Low 135 - 144 mmol/L [place] Urea nitrogen [Mass/Vol] 12 mg/dL 6 - 20 mg/dL [place] Brain Natriuretic Peptideon 03-19-2020 Natriuretic peptide B (Bld) [Mass/Vol] Pro-BNP Reference Range: [place] Comment on above: Rule Out: <300 Reis Zone: Age <50 300-450 Age 50-75 300-900 Age >75 300-1800 Usually represents mild to moderate HF but other cardiopulmonary causes cannot be ruled out. Rule In: Age <50 >450 Age 50-75 >900 Age >75 >1800 Natriuretic peptide B (Bld) [Mass/Vol] 60 pg/mL <300 [place] Comment on above: Pro-BNP results radha ot be compared to BNP results. CBC Auto Differentialon Basophils (Bld) [#/Vol] 0.04 10*3/uL [place] Basophils/100 WBC (Bld) 1 % 0 - 2 % [place] Differential Type NOT REPORTED [place] Eosinophils (Bld) [#/Vol] 0.04 10*3/uL [place] Eosinophils/100 WBC (Bld) 1 % 1 - 4 % [place] Erythrocyte distribution width (RBC) [Ratio] 12.5 % 11.8 - 14.4 % [place] Hematocrit (Bld) [Volume fraction] 48.2 % 40.7 - 50.3 % [place] Hemoglobin (Bld) [Mass/Vol] 16.3 g/dL 13 - 17 g/dL [place] Immature granulocytes (Bld) [#/Vol] 1 % High 0 [place] Immature granulocytes (Bld) [#/Vol] 0.07 10*3/uL [place] Interpretation and review of laboratory results Abnormal [place] Lymphocytes (Bld) [#/Vol] 1.10 10*3/uL [place] Lymphocytes/100 WBC (Bld) 13 % Low 24 - 43 % [place] MCH (RBC) [Entitic mass] 29.4 pg 25.2 - 33.5 pg [place] MCHC (RBC) [Mass/Vol] 33.8 g/dL 28.4 - 34.8 g/dL [place] MCV (RBC) [Entitic vol] 87.0 fL 82.6 - 102.9 fL [place] Monocytes (Bld) [#/Vol] 0.96 10*3/uL [place] Monocytes/100 WBC (Bld) 11 % 3 - 12 % [place] Platelet mean volume (Bld) [Entitic vol] 11.2 fL 8.1 - 13.5 fL [place] Platelets (Bld) [#/Vol] 175 10*3/uL [place] Platelets (Bld) [#/Vol] NOT REPORTED [place] RBC (Bld) [#/Vol] 5.54 10*6/uL 4.21 - 5.77 m/uL [place] RBC morphology finding Nom (Bld) NOT REPORTED [place] Segmented neutrophils/100 WBC (Bld) 73 % High 36 - 65 % [place] Segs Absolute 6.21 [place] WBC (Bld) [#/Vol] 8.4 10*3/uL [place] WBC (Bld) [#/Vol] 0.0 10*3/uL 0.0 per 100 WBC M [place] WBC Morphology NOT REPORTED [place] COVID-19, PCRon 03-19-2020 Interpretation and review of laboratory results Abnormal [place] SARS-CoV-2, Rapid DETECTED Abnormal Not Detected [place] Comment on above: Rapid NAAT: The [...] this assay. Fact sheet for Healthcare Providers: https://www.fda.gov/media/097251/download Fact sheet for Patients: https://www.fda.gov/media/464487/download Methodology: Isothermal Nucleic Acid Amplification Results reported to the appropriate Health Department Source .NASOPHARYNGEAL SWAB [place] CT CHEST PULMONARY EMBOLISM W CONTRASTon 03-19-2020 1. No pulmonary embolism. 2. Multifocal ground-glass opacities in the bilateral lungs with overall pattern of concern for underlying viral pneumonitis. 3. Hepatomegaly and diffuse steatosis in the abdomen, stable from remote imaging. [place] T[place], [facility] Incoming Radiant Results From [employer] - 03/19/2020 8:26 PM EST EXAMINATION: CTA [...] in the abdomen, stable from remote imaging. [place] EXAMINATION: CTA OF THE CHEST 03/19/2020 [...] Tissues/Bones: No skeletal abnormalities throughout the chest. [place] Lactic Acid, Plasmaon 2020 Lactate [Moles/Vol] 1.2 mmol/L 0.5 - 2.2 mmol/L [place] Lactic Acid, Whole Blood NOT REPORTED 0.7 - 2.1 mmol/L [place] Metabolic Panelon 03-19-2020 GFR/1.73 sq M predicted among non-blacks MDRD (S/P/Bld) [Vol rate/Area] [place] Comment on above: Average GFR for 40-4 9 years old: 99 mL/min/1.73sq m Chronic Kidney Disease: <60 mL/min/1.73sq m Kidney failure: <15 mL/min/1.73sq m eGFR calculated using average adult body mass. Additional eGFR calculator available at: http://www.[employer]Recorded Future/multiple_crcl_2012.htm Stage 1: Some kidney damage normal GFR Stage 2: Mild kidney damage GFR 60-89 Stage 3: Moderate kidney damage GFR 30-59 Stage 4: Severe kidney damage GFR 15-29 Stage 5: Severe kidney damage GFR <15 ESRD - chronic treatment by dialysis or transplant Otheron 03-19-2020 SARS-CoV-2 [place] Rapid influenza A/B antigens on 03-19-2020 Direct Exam NEGATIVE for Influenza A + B antigens. PCR testing to confirm this result is available upon request. Specimen will be saved in the laboratory for 7 days. Please call [phone] if PCR testing is indicated. [place] Special Requests NOT REPORTED [place] Specimen Description .NASOPHARYNGEAL SWAB [place] Troponinon 03-19-2020 Troponin I.cardiac [Mass/Vol] NOT REPORTED [place] Troponin T.cardiac [Mass/Vol] NOT REPORTED <0.03 ng/mL [place] Troponin, High Sensitivity 15 ng/L 0 - 22 ng/L [place] Comment on above: High Sensitivity Troponin values cannot be compared with other Troponin methodologies. Patients with high levels of Biotin oral intake (i.e >5mg/day) may have falsely decreased Troponin levels. Samples collected within 8 hours of biotin intake may require additional information for diagnosis. XR CHEST PORTABLEon 03-19-19 21 [facility], [facility] Incoming Radiant Results From [employer] - 03/19/2020 6:06 PM EST EXAMINATION: ONE XRAY VIEW OF THE CHEST 03/19/2020 5:58 pm COMPARISON: June 27, 2018 HISTORY: ORDERING SYSTEM PROVIDED HISTORY: dyspnea TECHNOLOGIST PROVIDED HISTORY: dyspnea FINDINGS: Mild edema. Heart and mediastinum normal. Bony thorax intact. IMPRESSION: Mild edema or pneumonitis [place] EXAMINATION: ONE XRAY VIEW OF THE CHEST 03/19/2020 5:58 pm COMPARISON: June 27, 2018 HISTORY: ORDERING SYSTEM PROVIDED HISTORY: dyspnea TECHNOLOGIST PROVIDED HISTORY: dyspnea FINDINGS: Mild edema. Heart and mediastinum normal. Bony thorax intact. [place] Mild edema or pneumonitis [place] Otheron 10-21-2019 No acute abnormalities seen in the left foot or left ankle [place] EXAMINATION: THREE XRAY VIEWS OF THE [...] medial malleolus most likely from old trauma. [place], [facility] Incoming Radiant Results From [employer] - 10/21/2019 4:26 PM EDT EXAMINATION: THREE [...] in the left foot or left ankle [place] Basic Metabolic Panel w/ Ref katrin to MGon 02-06-2019 Anion gap [Moles/Vol] 13 mmol/L 9 - 17 mmol/L [place] Bun/Cre Ratio 16 [place] Calcium [Mass/Vol] 8.4 mg/dL Low 8.6 - 10.4 mg/dL [place] Chloride [Moles/Vol] 99 mmol/L 98 - 107 mmol/L [place] CO2 [Moles/Vol] 23 mmol/L 20 - 31 mmol/L [place] Creatinine [Mass/Vol] 0.94 mg/dL 0.7 - 1.2 mg/dL [place] GFR >60 >60 mL/min [place] GFR Non- >60 >60 mL/min [place] Glucose [Mass/Vol] 130 mg/dL High 70 - 99 mg/dL [place] Interpretation and review of laboratory results Abnormal [place] Potassium [Moles/Vol] 3.7 mmol/L 3.7 - 5.3 mmol/L [place] Sodium [Moles/Vol] 135 mmol/L 135 - 144 mmol/L [place] Urea nitrogen [Mass/Vol] 15 mg/dL 6 - 20 mg/dL [place] CBCon 02-06-2019 Erythrocyte distribution width (RBC) [Ratio] 12.5 % 11.8 - 14.4 % [place] Hematocrit (Bld) [Volume fraction] 45.4 % 40.7 - 50.3 % [place] Hemoglobin (Bld) [Mass/Vol] 15.1 g/dL 13 - 17 g/dL [place] MCH (RBC) [Entitic mass] 29.8 pg 25.2 - 33.5 pg [place] MCHC (RBC) [Mass/Vol] 33.3 g/dL 28.4 - 34.8 g/dL [place] MCV (RBC) [Entitic vol] 89.5 fL 82.6 - 102.9 fL [place] Platelet mean volume (Bld) [Entitic vol] 10.4 fL 8.1 - 13.5 fL [place] Platelets (Bld) [#/Vol] 198 10*3/uL [place] RBC (Bld) [#/Vol] 5.07 10*6/uL 4.21 - 5.77 m/uL [place] WBC (Bld) [#/Vol] 0.0 10*3/uL 0.0 per 100 WBC M [place] WBC (Bld) [#/Vol] 10.7 10*3/uL [place] Culture Stoolon 02-06-2019 Campylobacter PCR NEGATIVE: No Campylobacter spp. (jejuni or coli) DNA Detected NEGATIVE: No Campylobacter spp. (jejuni or coli) DNA Detecte [place] E Coli Enterotoxigenic PCR NEGATIVE: No Enterotoxigenic E. coli (ETEC) Heat-labile and heat-stable (LT/ST) DNA Detected NEGATIVE: No Enterotoxigenic E. coli (ETEC) Heat-labile and [place] Plesiomonas Shigelloides PCR Negative NEGATIVE: No Plesionomas shigelloides DNA Detected [place] Salmonella PCR Negative NEGATIVE: No Salmonella spp. DNA Detected [place] Shigatoxin Gene PCR Negative NEGATIVE : No Shiga toxin-producing gene(s) Detected [place] Shigella Sp PCR Negative NEGATIVE: No Shigella spp. / EIEC DNA Detected [place] Specimen Description .FECES [place] Vibrio PCR NEGATIVE: No Vibrio (V. vulnificus, V, parahaemolyticus and V. cholerae) DNA Detected NEGATIVE: No Vibrio (V. vulnificus, V, parahaemolyticus and [place] Yersinia Enterocolitica PCR Negative NEGATIVE: No Yersinia enterocolitica DNA Detected [place] Metabolic Panelon 02-06-2019 GFR/1.73 sq M predicted among non-blacks MDRD (S/P/Bld) [Vol rate/Area] [place], [place] Comment on above: Stage 1: Some [...] body mass. Additional eGFR calculator available at: http://www.[employer]/multiple_crcl_2012.htm Microscopic Urinalysison Amorphous, UA NOT REPORTED None [place], [place] Bacteria, UA TRACE Abnormal None [place] Casts UA NOT REPORTED /LPF [place] Crystals UA NOT REPORTED None /HPF [place] Epithelial Cells UA 0 TO 2 [place] Interpretation and review of laboratory results Abnormal [place] Mucus, UA TRACE Abnormal None [place] Other Observations UA NOT REPORTED NOT REQ. [place] RBC (U) [#/Vol] 0 TO 2 [place] Renal Epithelial, Urine NOT REPORTED 0 /HPF [place] Trichomonas, UA NOT REPORTED None [facility] [place] WBC, UA None [place] Yeast, UA NOT REPORTED None [place] - [place] Urinalysis Reflex to Culture on 02-06-2019 Bilirubin Urine Negative NEGATIVE [place] Color, UA YELLOW YELLOW [place] Glucose, Ur Negative NEGATIVE [place] Interpretation and review of laboratory results Abnormal [place] Ketones Ql (U) TRACE Abnormal NEGATIVE [place] Leukocyte esterase Test strip Ql (U) Negative NEGATIVE [place] Nitrite, Urine Negative NEGATIVE [place] pH, UA 5.5 [place] Protein (U) [Mass/Vol] TRACE Abnormal NEGATIVE [place] Specific [place], UA >1.030 High [place] Turbidity UA CLEAR CLEAR [place] Urinalysis Comments NOT REPORTED [place] Urine Hgb 1+ Abnormal NEGATIVE [place] Urobilinogen, Urine Normal Normal [place] C DIFF TOXIN/ANTIGENon 02-05 C DIFF AG + TOXIN Negative NEGATIVE [place] Comment on above: No C. difficile anti gen and Toxin Detected. Specimen Description .FECES [place] CBCon 02-05-2019 Erythrocyte distribution width (RBC) [Ratio] 12.0 % 11.8 - 14.4 % [place] Hematocrit (Bld) [Volume fraction] 49.7 % 40.7 - 50.3 % [place] Hemoglobin (Bld) [Mass/Vol] 17.2 g/dL High 13 - 17 g/dL [place] Interpretation and review of laboratory results Abnormal [place] MCH (RBC) [Entitic mass] 30.4 pg 25.2 - 33.5 pg [place] MCHC (RBC) [Mass/Vol] 34.6 g/dL 28.4 - 34.8 g/dL [place] MCV (RBC) [Entitic vol] 87.8 fL 82.6 - 102.9 fL [place] Platelet mean volume (Bld) [Entitic vol] 10.8 fL 8.1 - 13.5 fL [place] Platelets (Bld) [#/Vol] 233 10*3/uL [place] RBC (Bld) [#/Vol] 5.66 10*6/uL 4.21 - 5.77 m/uL [place] WBC (Bld) [#/Vol] 15.0 10*3/uL [place] WBC (Bld) [#/Vol] 0.0 10*3/uL 0.0 per 100 WBC [place] CT ABDOMEN PELVIS W IV CONTR AST Additional Contrast? Noneon 02-05-2019 T[facility], [facility] Incoming Radiant Results From [employer] - 02/05/2019 6:20 PM EST EXAMINATION: CT [...] pathologic adenopathy. Bones/Soft Tissues: Normal IMPRESSION: Ileus [place] EXAMINATION: CT OF THE ABDOMEN AND [...] is no pathologic adenopathy. Bones/Soft Tissues: [place]leus [place] Comprehensive Metabolic Pane karan 02-05-2019 Albumin [Mass/Vol] 4.6 g/dL 3.5 - 5.2 g/dL [place] Albumin/Globulin [Mass ratio] 1.4 {ratio} [place] ALP [Catalytic activity/Vol] 88 U/L 40 - 129 U/L [place] ALT [Catalytic activity/Vol] 43 U/L High 5 - 41 U/L [place] Anion gap [Moles/Vol] 19 mmol/L High 9 - 17 mmol/L [place] AST [Catalytic activity/Vol] 23 U/L <40 [place] Bilirubin Ql (U) 1.37 mg/dL High 0.3 - 1.2 mg/dL [place] Bun/Cre Ratio 16 [place] Calcium [Mass/Vol] 9.4 mg/dL 8.6 - 10.4 mg/dL [place] Chloride [Moles/Vol] 96 mmol/L Low 98 - 107 mmol/L [place] CO2 [Moles/Vol] 21 mmol/L 20 - 31 mmol/L [place] Creatinine [Mass/Vol] 0.9 mg/dL 0.7 - 1.2 mg/dL [place] GFR >60 >60 mL/min [place] GFR Non- >60 >60 mL/min [place] Glucose [Mass/Vol] 119 mg/dL High 70 - 99 mg/dL [place] Interpretation and review of laboratory results Abnormal [place] Potassium [Moles/Vol] 4.2 mmol/L 3.7 - 5.3 mmol/L [place] Protein [Mass/Vol] 8.0 g/dL 6.4 - 8.3 g/dL [place] Sodium [Moles/Vol] 136 mmol/L 135 - 144 mmol/L [place] Urea nitrogen [Mass/Vol] 14 mg/dL 6 - 20 mg/dL [place] Lactic Acid, Plasmaon 2018 Interpretation and review of laboratory results Abnormal [place] Lactate [Moles/Vol] 2.4 mmol/L High 0.5 - 2.2 mmol/L [place] Lactic Acid, Whole Blood NOT REPORTED 0.7 - 2.1 mmol/L [place] Lipaseon 02-05-2019 Lipase [Catalytic activity/Vol] 32 U/L 13 - 60 U/L [place] Metabolic Panelon 02-05-2019 GFR/1.73 sq M predicted among non-blacks MDRD (S/P/Bld) [Vol rate/Area] [place] Comment on above: Average GFR for 40-4 9 years old: 99 mL/min/1.73sq m Chronic Kidney Disease: <60 mL/min/1.73sq m Kidney failure: <15 mL/min/1.73sq m eGFR calculated using average adult body mass. Additional eGFR calculator available at: http://www.[employer]Recorded [email or web address]_crcl_2011.htm Stage 1: Some kidney damage normal GFR Stage 2: Mild kidney damage GFR 60-89 Stage 3: Moderate kidney damage GFR 30-59 Stage 4: Severe kidney damage GFR 15-29 Stage 5: Severe kidney damage GFR <15 ESRD - chronic treatment by dialysis or transplant Vital Signs Date Time Vital Sign Value Performing Clinician Rochelle cerrato 10-11-2022 15:03-0400 Diastolic blood pressure 81 mm[Hg] PHYSICIAN NO [facility] 10-11-2022 15:03-0400 Heart rate 75 /min PHYSICIAN NO [facility] 10-11-2022 15:03-0400 Respiratory rate 20 /min PHYSICIAN NO [facility] 10-11-2022 15:03-0400 SaO2% (BldA) [Mass fraction] 97 % PHYSICIAN NO [facility] 10-11-2022 15:03-0400 Systolic blood pressure 146 mm[Hg] PHYSICIAN NO [facility] 10-11-2022 12:17-0400 Body temperature 98.3 [degF] PHYSICIAN NO [facility] 10-11-2022 12:12-0400 Body height 175.26 cm PHYSICIAN NO [facility] 10-11-2022 12:12-0400 Body weight 128.6 kg PHYSICIAN NO [facility] 08-18-2022 12:04-0400 Body temperature 97.9 [degF] PHYSICIAN NO [facility] 08-18-2022 11:58-0400 Body height 177.8 cm PHYSICIAN NO [facility] 08-18-2022 11:58-0400 Body weight 129.36 kg PHYSICIAN NO [facility] 08-18-2022 11:58-0400 Diastolic blood pressure 115 mm[Hg] PHYSICIAN NO [facility] 08-18-2022 11:58-0400 Heart rate 107 /min PHYSICIAN NO [facility] 08-18-2022 11:58-0400 Respiratory rate 20 /min PHYSICIAN NO [facility] 08-18-2022 11:58-0400 SaO2% (BldA) [Mass fraction] 97 % PHYSICIAN NO [facility] 08-18-2022 11:58-0400 Systolic blood pressure 159 mm[Hg] PHYSICIAN NO [facility] 12-19-2021 18:32-0400 Body temperature 98.1 [degF] PHYSICIAN NO [facility] 12-19-2021 18:32-0400 Diastolic blood pressure 105 mm[Hg] PHYSICIAN NO [facility] 12-19-2021 18:32-0400 Heart rate 106 /min PHYSICIAN NO [facility] 12-19-2021 18:32-0400 Respiratory rate 20 /min PHYSICIAN NO [facility] 12-19-2021 18:32-0400 SaO2% (BldA) [Mass fraction] 96 % PHYSICIAN NO [facility] 12-19-2021 18:32-0400 Systolic blood pressure 153 mm[Hg] PHYSICIAN NO [facility] 12-19-2021 17:44-0400 Body height 177.8 cm PHYSICIAN NO [facility] 12-19-2021 17:44-0400 Body weight 134.55 kg PHYSICIAN NO [facility] 12-17-2021 09:40-0400 Body height 177.8 cm PHYSICIAN NO [facility] 12-17-2021 09:40-0400 Body temperature 98.1 [degF] PHYSICIAN NO [facility] 12-17-2021 09:40-0400 Body weight 134 kg PHYSICIAN NO [facility] 12-17-2021 09:40-0400 Diastolic blood pressure 108 mm[Hg] PHYSICIAN NO [facility] 12-17-2021 09:40-0400 Heart rate 114 /min PHYSICIAN NO [facility] 12-17-2021 09:40-0400 Respiratory rate 20 /min PHYSICIAN NO [facility] 12-17-2021 09:40-0400 SaO2% (BldA) [Mass fraction] 98 % PHYSICIAN NO [facility] 12-17-2021 09:40-0400 Systolic blood pressure 171 mm[Hg] PHYSICIAN NO [facility] 12-02-2021 14:50-0400 Body height 177.8 cm PHYSICIAN NO [facility] 12-02-2021 14:50-0400 Body temperature 98.6 [degF] PHYSICIAN NO [facility] 12-02-2021 14:50-0400 Body weight 133.2 kg PHYSICIAN NO [facility] 12-02-2021 14:50-0400 Diastolic blood pressure 102 mm[Hg] PHYSICIAN NO [facility] 12-02-2021 14:50-0400 Heart rate 117 /min PHYSICIAN NO [facility] 12-02-2021 14:50-0400 Respiratory rate 18 /min PHYSICIAN NO [facility] 12-02-2021 14:50-0400 SaO2% (BldA) [Mass fraction] 98 % PHYSICIAN NO [facility] 12-02-2021 14:50-0400 Systolic blood pressure 174 mm[Hg] PHYSICIAN NO [facility] 06-08-2021 14:28-0400 Heart rate 117 /min Fatoumata Sanchez APRN - SENIOR SALES MANAGER Work Phone: [facility] 06-08-2021 14:28-0400 SaO2% (BldA) [Mass fraction] 95 % Fatoumata Sanchez APRN - SENIOR SALES MANAGER Work Phone: [employer] 06-08-2021 14:22-0400 Body height 177.8 cm Fatoumata Sanhcez APRN - SENIOR SALES MANAGER Work Phone: [employer] 06-08-2021 14:22-0400 Body mass index (BMI) [Ratio] 44.77 kg/m2 Fatoumata Sanchez APRN - SENIOR SALES MANAGER Work Phone: [employer] 06-08-2021 14:22-0400 Body temperature 98.1 [degF] Fatoumata Sanchez APRN - SENIOR SALES MANAGER Work Phone: [employer] 06-08-2021 14:22-0400 Body weight 141.52 kg Fatoumata Sanchez APRN - SENIOR SALES MANAGER Work Phone: [employer] 06-08-2021 14:22-0400 Diastolic blood pressure 120 mm[Hg] Fatoumata Sanchez APRN - SENIOR SALES MANAGER Work Phone: [employer] 06-08-2021 14:22-0400 Respiratory rate 18 /min Fatoumata Sanchez APRN - SENIOR SALES MANAGER Work Phone: [employer] 06-08-2021 14:22-0400 Systolic blood pressure 170 mm[Hg] Fatoumata Sanchez APRN - SENIOR SALES MANAGER Work Phone: [employer] 03-19-2020 23:45-0500 BP Diastolic 101 mm[Hg] [facility] [place] , [place] 03-19-2020 23:45-0500 BP Systolic 148 mm[Hg] [facility] [place] , [place] 03-19-2020 23:45-0500 Pulse (Heart Rate) 117 /min [facility] 03-19-2020 23:45-0500 Pulse Oximetry 94 % [facility] [place] 03-19-2020 23:45-0500 Respiratory Rate 23 /min [facility] [place] 03-19-2020 19:57-0500 Body Temperature 99.9 [degF] [facility] [place] 03-19-2020 17:38-0500 BMI (Body Mass Index) 45.92 kg/m2 [facility] 03-19-2020 17:38-0500 Body weight 145.15 kg [facility] [place] 03-19-2020 17:38-0500 Height 177.8 cm [facility] [place] 10-21-2019 17:46-0400 BP Diastolic 103 mm[Hg] [facility] [place] 10-21-2019 17:46-0400 BP Systolic 163 mm[Hg] [facility] [place] 10-21-2019 17:37-0400 Pulse (Heart Rate) 109 /min [facility] 10-21-2019 17:37-0400 Respiratory Rate 18 /min [facility] 10-21-2019 16:02-0400 BMI (Body Mass Index) 44.3 kg/m2 [facility] 10-21-2019 16:02-0400 Body Temperature 97 [degF] [facility] 10-21-2019 16:02-0400 Body weight 136.08 kg [facility] [place] 10-21-2019 16:02-0400 Pulse Oximetry 96 % [facility] [place] 02-07-2019 08:18-0500 Body Temperature 97.7 [degF] Dat Jean Baptiste [facility] [place] 02-07-2019 08:18-0500 BP Diastolic 102 mm[Hg] Dat Jean Baptiste [facility] [place] 02-07-2019 08:18-0500 BP Systolic 132 mm[Hg] Dat Jean Baptiste [facility] [place] 02-07-2019 08:18-0500 Pulse (Heart Rate) 76 /min [facility] [place], [place] 02-07-2019 08:18-0500 Pulse Oximetry 96 % [facility] [place] , [place] 02-07-2019 08:18-0500 Respiratory Rate 16 /min [facility], [place] 02-07-2019 04:51-0500 BMI (Body Mass Index) 42.06 kg/m2 Dat [facility] [place], [place] 02-07-2019 04:51-0500 Body weight 129.18 kg Dat [facility] , [place] 02-06-2019 08:10-0500 Height 175.3 cm [facility] , [place] Encounters Encounter Date Encounter Type Care Provider Facility Start: 07-04-2023 End: 07-04-2023 Emergency department patient visit [facility] Start: 11-17-2022 End: 11-17-2022 ambulatory [facility] Start: 10-31-2022 End: 10-31-2022 ambulatory AB [facility] Start: 10-11-2022 End: 10-11-2022 Emergency department patient visit PHYSICIAN NO [facility] Work Phone: Start: 08-18-2022 End: 08-18-2022 Emergency department patient visit PHYSICIAN NO [facility] Work Phone: Start: 05-15-2022 End: 05-16-[address] NONE LISTED REQUEST Facility:[facility]1 Start: 05-11-2022 End: 05-11-[address] NONE LISTED REQUEST Facility:[facility] Start: 01-21-2022 End: 01-21-2022 ambulatory PHYSICIAN NO [facility] Work Phone: Start: 01-21-2022 End: 01-21-2022 Discharged Recurring PHYSICIAN NO [facility] [address] Start: 12-19-2021 End: 12-19-2021 Emergency department patient visit PHYSICIAN NO [facility] Start: 12-17-2021 End: 12-17-2021 Emergency department patient visit PHYSICIAN NO [facility] Start: 12-02-2021 End: 12-02-2021 Emergency department patient visit PHYSICIAN NO [facility] Start: 06-08-2021 End: 06-08-2021 Emergency department patient visit Fatoumata Sanchez 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 Phone: [facility] ED Comment on above: Enteritis (Primary D x) Start: 03-19-2020 End: 03-20-2020 Emergency department patient visit [facility] ED Comment on above: COVID-19 (Primary Dx ) Start: 10-21-2019 End: 10-21-2019 Emergency department patient visit [facility] ED Comment on above: Left Achilles tendin itis (Primary Dx) Start: 02-05-2019 End: 02-07-2019 Evaluation and management of inpatient Dat Jean Baptiste Work Phone: [facility] Comment on above: Ileus (HCC) [...] abdomen & pelvis w/contrast material 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 Sanchez 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 Phone: Start: 06-08-2021 Comprehensive metabo lic panel Fatoumata Sanchez 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 Phone: Start: 03-19-2020 Ct thorax w/contrast material Arabella Blandon Work Phone: Start: 03-19-2020 COVID-19 Arabella [facility] Work Phone: Start: 03-19-2020 Iaadiadoo influenza [facility] Work Phone: Start: 03-19-2020 Assay of lactate [...] Phone: Start: 02-06-2019 Urinalysis microscop ic only [employer] Work Phone: Start: 02-06-2019 Urnls dip stick/tabl et rgnt auto w/o microscopy [employer] [facility] Work Phone: Start: 02-05-2019 Cul bact stool aerob ic isol salmonella&shigell [employer] Work Phone: Start: 02-05-2019 Toxin/antitoxin assa y tissue culture [employer] [facility] Work Phone: Start: 02-05-2019 Ct abdomen & pelvis w/contrast material [employer] Work Phone: Start: 02-05-2019 Assay of lactate [employer] [facility] Work Phone: Start: 02-05-2019 Assay of lipase [employer] Work Phone: Start: 02-05-2019 Blood count complete automated [employer] [facility] Work Phone: Start: 02-05-2019 Comprehensive metabo lic panel [employer] Phone: SARS Antigen (LFIA) PHYSICIA N NO FAMILY Plan of Treatment Date Care Activity Detail Author Start: 06-08-2022 Creatinine measurement Creatinine mo [facility] Start: 06-08-2022 Potassium monitoring Potassium monit [facility] Start: 03-19-2021 Creatinine measurement Creatinine mo [place] Start: 03-19-2021 Potassium monitoring Potassium monit [place] Start: 11-11-2020 Influenza vaccination Flu vaccine (# 1) [facility] Start: 02-07-2020 Creatinine measurement Creatinine mo [place] Start: 02-07-2020 Potassium monitoring Pot[place] monit [place] Start: 11-12-2019 Influenza vaccination Flu vaccine (# 1) [place] Start: 06-28-2019 Creatinine monitoring Creatinine mon [place] Start: 06-28-2019 Potassium monitoring Potassium monit [place] Start: 11-11-2018 Influenza vaccination Flu vaccine (# 1) [place], [place] Start: 2018 Diabetes screen Diabetes screen [place] Start: 2018 Lipid panel Lipid screen [facility] Start: 2018 Lipid screen Lipid screen [place], [place] Start: 2013 Diabetes screen Diabetes screen [facility] Start: 1997 DTaP/Tdap/Td vaccine (1 - Tdap) DTaP/Tdap/Td vaccine (1 - Tdap) [facility] Start: 1993 HIV screen HIV screen [place], [place] Start: 1993 HIV screening HIV screen [facility] Start: 1990 Depression Screen Depression Screen [facility] Start: 1989 DTaP/Tdap/Td vaccine (1 - Tdap) DTaP/Tdap/Td vaccine (1 - Tdap) [place] Start: 1983 COVID-19 Vaccine (1) COVID-19 Vaccin e (1) [facility] Start: 1978 Hepatitis C screening Hepatitis C sc reen [facility] End: 03-19-2020 Culture, Blood 1 Culture, Blood 1 Microbiology STAT One Time for 1 Occurrences starting 03/19/2020 until 03/19/2020 [facility] Comment on above: One Time for 1 Occur rences starting 03/19/2020 until 03/19/2020 Culture, Blood 1 Culture, Blood 1 Microbiology STAT 03/19/2020 6:00 PM EST [facility] 12 Lead EKG 12 Lead ECG STAT 03/19/2020 5:53 PM EST [facility] Initiate Oxygen Ther apy Protocol Initiate Oxygen Therapy Protocol Respiratory Care Routine Daily until discontinued starting 02/05/2019 [facility] Comment on above: Daily until disconti nued starting 02/05/2019 Nasal Cannula Oxygen Nasal Cannu la Oxygen Respiratory Care STAT Daily until discontinued starting 03/19/2020 [facility] Comment on above: Daily until disconti nued starting 03/19/2020 Patient Education [facility] Work Phone: Patient referral [facility] Work Phone: End: 02-05-2019 Pulse Oximetry Spot Check Pulse Oximetry Spot Check Respiratory Care Routine One Time for 1 Occurrences starting 02/05/2019 until 02/05/2019 [facility] [place] Comment on above: One Time for 1 Occur rences starting 02/05/2019 until 02/05/2019 End: 06-08-2021 Urinalysis with Microscopic Urinalysis with Microscopic Lab STAT One Time for 1 Occurrences starting 06/08/2021 until 06/08/2021 [facility] Work Phone: Comment on above: One Time for 1 Occur rences starting 06/08/2021 until 06/08/2021 Payers Date Payer Category Payer Unknown [id number] 1980 Unknown [id number] 1961 Self-pay 1961 Worker's Compensation [id number] Unknown [id number] Social History Date Type Detail Facility Start: 10-21-2019 End: 10-11-2022 Tobacco smoking status NHIS [place] Start: 04-05-2015 End: 10-21-2019 Tobacco use and exposure Never used [place] Start: 10-21-2019 End: 06-08-2021 Alcohol intake Current non-drinker of alcohol (finding) [place] Start: 1980 Sex Assigned At Not on file [place] Start: 05-29-2021 End: 06-08-2021 Exposure to SARS-CoV-2 (event) Not sure [place] Start: 12-02-2021 End: 12-19-2021 Tobacco smoking status NHIS Never smoked tobacco (finding) [facility] Start: 1980 Sex Assigned At Male F [facility] Clinical Notes 06-08-2021 to 02-01-2023 InstructionsAttachments Note Date & Type Note Facility 02-01-2023 Note This report has been cancelled. [facility] 02-01-2023 Note This report has been cancelled. [facility] 11-17-2022 Note Cardiovascular Labor atory Report [...] be checked in a week [facility] 2 to 3 [...] left radial artery was obtained. A 6 Portuguese glide sheath was inserted without difficulty. Bilateral [...] INDICATIONS: Abnormal stress test, reduced ejection fraction [facility] 11-17-2022 Note Patient: Lawson stark Procedure Information Date/Time: 11/17/22 1030 Procedure: Coronary angiography (Bilateral) Location: [facility] FLOTATION OPERATOR 3 / [facility] (Cath) Providers: Rafat Garcia MD Clinical information reviewed: Allergies Meds Physical Exam Airway Mallampati: III Neck ROM: full Cardiovascular Rhythm: regular Rate: normal Dental Pulmonary Breath sounds clear to auscultation Abdominal Abdomen: soft Bowel sounds: normal Anesthesia Plan ASA 3 other (Conscious Sedation ) Anesthetic plan and risks discussed with patient. Use of blood products discussed with patient who consented to blood products. Additional Equipment Requests [facility] 10-31-2022 Note [facility] Note Chief Complaint: Patient here for follow up [facility] for chest pain. He was seen [...] two Further recommendations pending the above Rafat Garcia MD, MPH, [facility], [facility], [facility] Interventional Cardiology Pager Email: [email or web address] 06-08-2021 Hospital Discharge instructions Fatoumata Sanchez, ARSALAN - SENIOR SALES MANAGER - 06/08/2021 Increase your fluid intake. Take Bentyl as prescribed. Follow-up with PCP for reevaluation in the next couple of days. Avoid dairy, spicy and fatty foods for the next week. Return here for increased pain, fever, difficulty breathing, vomiting or new or worsening signs or symptoms. The following attachments cannot be sent through Care Everywhere.Gastroenteritis (Panamanian)documented in this encounter [employer] Work Phone: Evaluation note Diagnosis Enteritis- Primary Other and unspecified noninfectious gastroenteritis and colitis documented in this encounter [employer] Work Phone: evaluation noteNo assessment information available [facility] Work Phone: Hospital Discharge instructions Additional Instructions Rest ice elevate Use the wrist splint for comfort Take ibuprofen every 6 hours for discomfort Follow-up with either [facility] or [facility] Follow-up with [facility] especially if not getting better [facility] Work Phone: Hospital Discharge instructions Additional Instructions Return for new or worsening symptoms [facility] Work Phone: Hospital Discharge instructions Additional Instructions Please return to emergency department for any new or worrisome symptoms including any weakness, numbness, headache, vision changes. Follow-up with your family physician as soon as possible.[facility] Work Phone: Discharge Instructions * Attachments The following attachments cannot be sent through Care Everywhere. * Tendon Injury (Tendinopathy) (Panamanian) documented in this encounter* Instructions* Lobito Sidhu [...] Everywhere. * Coronavirus Disease (COVID-19): General Info (Panamanian) * Coronavirus Disease (COVID-19): Isolation (Panamanian) documented in this encounter* Instructions* Bambi Segal [...] Where can you learn more? Go to [email or web address] and sign in to your [employer] account. Enter M933 in the Search Health Information box to learn more about Learning About Ileus. If you do not have an account, please click on the Sign Up Now link. Current as of: January 17, 2018 Content Version: [id number] [employer] Care instructions adapted under license by [employer]. If youhave questions about a medical condition or this instruction, always ask your healthcare professional. [employer] disclaims any warranty or liability for your use of this information. 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 Advance Directives and Living Will Power of Burnisher Latest Code Status on File Code Status Date Activated Date Inactivated Comments Full Code 02/05/2019 9:40 PM 02/07/2019 3:36 PM Full Code 06/22/2016 5:58 AM 06/22/2016 7:53 PM Documents on File Type Date Recorded 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 Internal Medicine Discharge Summary Patient ID: Lawson Lopez [id number] Admission date: 02/05/2019 Discharge date: 02/07/2019 [...] no PCP but will be referred to [facility]. Discharge Exam: GEN: Awake, alert and oriented [...] Discharge Medications: Lawson Lopez Home Medication Instructions [id number] Printed on:02/07/19 1147 Medication Information amLODIPine (NORVASC) 5 MG tablet Take 1 tablet by mouth daily Patient Instructions: Activity: activity as tolerated Diet: regular diet Wound Care: none needed Follow [facility] with [facility]2 weeks CORE MEASURES on Discharge (if applicable) DORCAS/ARB in CHF: N/A ASA in AL: N/A Statin in AL: N/A Statin in CVA: N/A Antiplatelet in CVA: N/A Total time spent on discharge services: 25 minutes Including the following activities: Evaluation and Management of patient Discussion with patient and/or surrogate about current care plan Coordination with Case Management and/or Unit Aid Coordination of care with Consultants (if applicable) [...] MD - 02/07/2019 11:29 AM EST Tal Gnozalez M.D. Internal Medicine Progress Note 02/07/19 SUBJECTIVE: [...] Dr. Jean Baptiste, orders received. Pharmacy updated. Megan Silva RN - 02/06/2019 1:36 PM EST Patient up independently in room. Reports large loose BM. Megan Silva RN - 02/06/2019 1:25 PM EST Orders received from Dr. Jean Baptiste via fax, message left with office for clarification of dose/frequency. Megan Silva RN - 02/06/2019 11:01 AM EST Dulcolax [...] of care. To: __Dr. Jean Baptiste From: [facility] Sender:_KSchwochowRN Phone Number:_[phone] This request is: Urgent - No Information [...] you. Signature Date Time * Jamir Reed, PHYSIOTHERAPY PRACTICE MANAGER, RANGE OPERATOR - 02/06/2019 10:51 AM EST Social Work intial Assessment/Discharge Plan Diagnosis: Abdominal pain with Lleus Met with: Patient PCP: None. Chose [facility] Payment Source: Private. No insurance. Advance Directives: None Code Status: Full Mental Status: Alert and oriented Living Arrangement: Patient lives at home in [place] with a roommate Support Systems: Roommate and [...] Needs/Discharge Plan: Patient will return home to [place] where he resides with a roommate. He [...] 5. Fluid Accumulation-No significant fluid accumulation, 6. 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 Strength-Not measured Nutrition Risk Level: Moderate Nutrient Needs: Estimated Daily Total Kcal: 0631-5350(12-17) Estimated Daily Protein (g): 95-109(1.3-1.5) Estimated Daily [...] Weight Change: , 2% loss from 290# [place] Body Wt: 160 lb (72.6 kg), % [place] Body 178% BMI Classification: BMI > or [...] Patient/Family Education, Monitor Bowel Function Contact Number: [phone] Marija Horta RN - 02/06/2019 4:31 AM [...] oriented to room, pr watching tv when pellet preparation operator left room documented in this encounter Chief [...] ico @janelle rich 6/7 numbness in hands/face Summary Purpose Family [...] PHYSICIAN NO FAMILY Primary Care Provider Active Jenelle Judge TICKETING CLERK- Emergency Provider Active Team Status: Inactive Member Role Status Dates PHYSICIAN NO FAMILY Primary Care Provider Active Elian Elizondo APRN Emergency Provider Active Team Status: Active Member Role Status Dates PHYSICIAN NO FAMILY Primary Care Provider Active Team Status: Active Member Role Status Dates Isabel Rodas BLOWING ENGINEER-C Primary Care Provider Active Team Status: Inactive Member Role Status Dates PHYSICIAN NO FAMILY Primary Care Provider Active Kris Narvaez DO Emergency Provider Active Team Status: Inactive Member Role Status Dates Isabel Rodas , BLOWING ENGINEER-C Primary Care Provider Active Socorro Osullivan MD [...] pital DATE CREATED AUTHOR AUTHOR'S ORGANIZ ATION 03/04/2023 [facility] DATE CREATED AUTHOR AUTHOR'S ORGANIZ ATION 07/06/2023 [facility] DATE CREATED AUTHOR AUTHOR'S ORGANIZ ATION 09/01/2023 [facility] FOR RECORDS PERTAINING TO PATIENTS WHO ARE [...] BE BASED ON THE PRIMARY CLINICAL RECORDS. [facility]. provides no warranty or guarantee of the accuracy or completeness of information in this document.
== END 2024-01-26 10:46 | disposition home or self-care (01) ==
PROVIDERS: Emergency Provider Emergency Medicine; PCP Nurse Practitioner
DX: M25.512 Pain in left shoulder (principal); I25.2 Old myocardial infarction; Z87.891 Personal history of nicotine dependence
CPT/HCPCS: 99283

== ENCOUNTER 2024-01-30 07:15 | Emergency (ER) | payer OTHER, SELFPAY ==
[2024-01-30 07:19] VITALS: PULSE 81; TEMP 37; O2SAT 96; BMI 45.6
--- OUTSIDE RECORDS SUMMARY | 2024-01-30 07:29 | XMS_ITS | CCD ---
Author Organization [facility] Care Team Providers Care Mussel Farmer Name Role Phone Unavailable Primary Care Provider Unavailabl e Carina Hernandez Primary Care Provider Unavailable Primary Care Provider Unavailabl e NO FAMILY, PHYSICIAN Primary Care Provider Unava ARSALAN Kamara Emergency Provider [phone] Alfie [facility] Jenelle E Emergency Provider [phone] MEENAKSHI Schmidt Emergency Provider NO FAMILY, PHYSICIAN Primary Care Provider Unava ilapolinar Elizondo APRN Elian Emergency Provider [facility] Jenelle E Emergency Provider MEENAKSHI Schmidt [...] Corticosteroids (1 source) predniSONE Drug Allergy 3 [facility] Repository Penicillins (antibiotic) (1 source) Amoxicillin Drug Allergy 3 [facility] Repository (10 sources) Amoxicillin; Translations: [AMOXICILLIN] Drug Allergy 6 Unknown Reaction [place], [place] (5 sources) fentaNYL; Translations: [FENTANYL] Drug Allergy 9 [place], [place] (10 sources) predniSONE; Translations: [PREDNISONE] Drug Allergy 6 Other (See Comments) [place] (1 source) Amoxicillin Drug Allergy 3 [facility] Repository (1 source) predniSONE Drug Allergy 3 [facility] Repository (1 source) amLODIPine; Translations: [AMLODIPINE] Drug Allergy 3 [facility] Repository Medications Current Medications Medication Drug Class(es) [...] 07-04-2023 Abs. Basophil 0.06 k/uL Normal 0.00-0.20 [facility] Comment on above: Performed By: #### C DP, LIP, CP #### [facility] [address] [place], [place] [phone] Regional Education Manager: Alex Amador MD Abs.Imm.Granulocyte 0.03 k/uL Normal 0.00-0.30 [facility] Comment on above: Performed By: #### C DP, LIP, CP #### [address] [place], [facility] Regional Education Manager: Alex Amador MD Abs.Neutrophil (Seg) 7.00 k/uL Normal 1.50-8.10 [facility] Comment on above: Performed By: #### C DP LIP, CP #### [address] [place] [address] Regional Education Manager: Alex Amador MD Basophils/100 WBC (Bld) 1 % Normal 0-2 [facility] Comment on above: Performed By: #### C RAMÓN MELTON, CP #### [address] [place], [place] [address] Regional Education Manager: Alex Amador MD Eosinophils (Bld) [#/Vol] 0.17 10*3/uL Normal 0.00-0.44 [facility] Comment on above: Performed By: #### C DP, LIP, CP #### [address] [place], [facility]83 Regional Education Manager: Alex Amador MD Eosinophils/100 WBC (Bld) 2 % Normal 1-4 [facility] Comment on above: Performed By: #### C DP LIP, CP #### [address] [place], [facility] Regional Education Manager: Alex Amador MD Erythrocyte distribution width (RBC) [Ratio] 12.4 % Normal 11.8-14.4 [facility] Comment on above: Performed By: #### C DP, LIP, CP #### [address] [place], [facility]83 Regional Education Manager: Alex Amador MD Hematocrit (Bld) [Volume fraction] 44.6 % Normal 40.7-50.3 [facility] Comment on above: Performed By: #### C DP LIP, CP #### [facility] [address] [place], [place] [phone] Regional Education Manager: Alex Amador MD Hemoglobin (Bld) [Mass/Vol] 15.5 g/dL Normal 13.0-17.0 [facility] Comment on above: Performed By: #### C LINH LIP, CP #### [address] [place], [place] [phone] Regional Education Manager: Alex Amador MD Immature granulocytes/100 WBC (Bld) 0 % Normal 0 [facility] Comment on above: Performed By: #### C RAMÓN MELTON, CP #### [address] [place], [place] [phone] Regional Education Manager: Alex Amador MD Lymphocytes (Bld) [#/Vol] 1.59 10*3/uL Normal 1.10-3.70 [facility] Comment on above: Performed By: #### C LINH LIP, CP #### [address] [place], [place] [phone] Regional Education Manager: Alex Amador MD Lymphocytes/100 WBC (Bld) 17 % Low 24-43 [facility] Comment on above: Performed By: #### C DP LIP, CP #### [facility] [address] [place] [address] [place] [address] Regional Education Manager: Alex Amador MD MCH (RBC) [Entitic mass] 30.3 pg Normal 25.2-33.5 [facility] Comment on above: Performed By: #### C DP LIP, CP #### [facility] [address] [place], [place] [address]83 Regional Education Manager: Alex Amador MD MCHC (RBC) [Mass/Vol] 34.8 g/dL Normal 28.4-34.8 [facility] Comment on above: Performed By: #### C RAMÓN MELTON, CP #### [facility] [address] [place] [address] Regional Education Manager: Alex Amador MD MCV (RBC) [Entitic vol] 87.1 fL Normal 82.6-102.9 [facility] Comment on above: Performed By: #### C RAMÓN MELTON, CP #### [address] [place] [address] Regional Education Manager: Alex Amador MD Monocytes (Bld) [#/Vol] 0.78 10*3/uL Normal 0.10-1.20 [facility] Comment on above: Performed By: #### C RAMÓN MELTON, CP #### [address] [place], [facility]83 Regional Education Manager: Alex Amador MD Monocytes/100 WBC (Bld) 8 % Normal 3-12 [facility] Comment on above: Performed By: #### C RMAÓN MELTON, CP #### [address] [place] [address] Regional Education Manager: Alex Amador MD Neutrophil (Seg) 72 % High 36-65 [facility] Comment on above: Performed By: #### C RAMÓN MELTON, CP #### [address] [place] [address] Regional Education Manager: Alex Amador MD NRBC Automated 0.0 per 100 WBC Normal 0.0 [facility] Comment on above: Performed By: #### C RAMÓN MELTON, CP #### [address] [place], [place] [phone] Regional Education Manager: Alex Amador MD Platelet mean volume (Bld) [Entitic vol] 10.4 fL Normal 8.1-13.5 [facility] Comment on above: Performed By: #### C DP, LIP, CP #### [facility] [address] [place] [address] Regional Education Manager: Alex Amador MD Platelets (Bld) [#/Vol] 239 10*3/uL Normal 138-453 [facility] Comment on above: Performed By: #### C DP, LIP, CP #### [facility] [address] [place] [address] Regional Education Manager: Alex Amador MD RBC (Bld) [#/Vol] 5.12 10*6/uL Normal 4.21-5.77 [facility] Comment on above: Performed By: #### C DP LIP, CP #### [facility] [address] [place] [address] Regional Education Manager: Alex Amador MD WBC (Bld) [#/Vol] 9.6 10*3/uL Normal 3.5-11.3 [facility] Comment on above: Performed By: #### C DP LIP, CP #### [address] [place], [place] [address]483 Regional Education Manager: Alex Amador MD Comp Metabolic Profon 2023 Albumin [Mass/Vol] 4.4 g/dL Normal 3.5-5.2 [facility] Comment on above: Performed By: #### C DP LIP, CP #### [facility] [address] [place], [place] [address] Regional Education Manager: Alex Amador MD Albumin/Glob Ratio 1.2 Normal 1.0-2.5 [facility] Comment on above: Performed By: #### C DP LIP, CP #### [facility] [address] [place] [address] Regional Education Manager: Alex Amador MD Alkaline Phos 103 U/L Normal 40-129 [facility] Comment on above: Performed By: #### C DP, LIP, CP #### [facility] [address] [place], [place] [address]83 Regional Education Manager: Alex Amador MD ALT [Catalytic activity/Vol] 30 U/L Normal 5-41 [facility] Comment on above: Performed By: #### C DP, LIP, CP #### [facility] [address] [place], [place] [address]83 Regional Education Manager: Alex Amador MD Anion gap [Moles/Vol] 10 mmol/L Normal 9-17 [facility] Comment on above: Performed By: #### C DP, LIP, CP #### [facility] [address] [place], [place] [phone] Regional Education Manager: Alex Amador MD AST [Catalytic activity/Vol] 21 U/L Normal <40 [facility] Comment on above: Performed By: #### C DP, LIP, CP #### [facility] [address] [place], [place] [phone] Regional Education Manager: Alex Amador MD Bilirubin [Mass/Vol] 0.7 mg/dL Normal 0.3-1.2 [facility] Comment on above: Performed By: #### C DP, LIP, CP #### [facility] [address] [place], [place] [address] Regional Education Manager: Alex Amador MD BUN/CRE Ratio 13 Normal 9-20 [facility] Comment on above: Performed By: #### C DP, LIP, CP #### [facility] [address] [place], [place] [address]83 Regional Education Manager: Alex Amador MD Calcium [Mass/Vol] 9.1 mg/dL Normal 8.6-10.4 [facility] Comment on above: Performed By: #### C DP, LIP, CP #### [facility] [address] [place], [place] [address] Regional Education Manager: Alex Amador MD Chloride [Moles/Vol] 102 mmol/L Normal 98-107 [facility] Comment on above: Performed By: #### C LINH LIP, CP #### [facility] [address] [place] [address] Regional Education Manager: Alex Amador MD CO2 [Moles/Vol] 27 mmol/L Normal 20-31 [facility] Comment on above: Performed By: #### C DP LIP, CP #### [facility] [address] [place] [address] Regional Education Manager: Alex Amador MD Creatinine [Mass/Vol] 0.8 mg/dL Normal 0.7-1.2 [facility] Comment on above: Performed By: #### C LINH LIP, CP #### [facility] [address] [place] [address] Regional Education Manager: Alex Amador MD GFR/1.73 sq M.predicted among non-blacks MDRD (S/P/Bld) [Vol rate/Area] mL/min/{1.73_m2} Normal >60 [facility] Comment on above: Result Comment: These results [...] By: #### C LINH LIP, CP #### [facility] [address] [place] [address] Regional Education Manager: Alex Amador MD Glucose [Mass/Vol] 97 mg/dL Normal 70-99 [facility] Comment on above: Performed By: #### C DP LIP, CP #### [facility] [address] [place] [address] Regional Education Manager: Alex Amador MD Potassium [Moles/Vol] 4.2 mmol/L Normal 3.7-5.3 [facility] Comment on above: Performed By: #### C DP LIP, CP #### [facility] [address] [place] [address] Regional Education Manager: Alex Amador MD Protein [Mass/Vol] 8.0 g/dL Normal 6.4-8.3 [facility] Comment on above: Performed By: #### C DP LIP, CP #### [facility] [address] [place] [address] Regional Education Manager: Alex Amador MD Sodium [Moles/Vol] 139 mmol/L Normal 135-144 [facility] Comment on above: Performed By: #### C LINH LIP, CP #### [facility] [address] [place] [address] Regional Education Manager: Alex Amador MD Urea nitrogen [Mass/Vol] 10 mg/dL Normal 6-20 [facility] Comment on above: Performed By: #### C RAMÓN MELTON, CP #### [facility] [address] [place] [address] Regional Education Manager: Alex Amador MD Lipaseon 07-04-2023 Lipase [Catalytic activity/Vol] 29 U/L Normal 13-60 [facility] Comment on above: Performed By: #### C DP LIP, CP #### [facility] [address] [place] [address] Regional Education Manager: Alex Amador MD 36on 11-21-2022 36 Patient's [...] cost is very similar. Help! Thanks. Normal [facility] CBCon 11-17-2022 Erythrocyte distribution width (RBC) [Ratio] 12.9 % Normal 11.5-15.0 [facility] Comment on above: Performed By: #### L [id number] ####[facility] (BEAKER)[address] [place] [address] ERYTHROCYTE MEAN CORPUSCULAR HEMOGLOBIN CONCENTRATION (G/DL) BY AUTOMATED 34.2 g/dL Normal 32.0-35.0 [facility] Comment on above: Performed By: #### L [id number] ####[facility] [place] [address] Hematocrit (Bld) [Volume fraction] 43.6 % Normal 39.0-55.0 [facility] Comment on above: Performed By: #### L [id number] ####[facility] [place] [address] Hemoglobin (Bld) [Mass/Vol] 14.9 g/dL Normal 13.0-17.0 [facility] Comment on above: Performed By: #### L [id number] ####[facility] (BEAKER)[address] [place] [address] MCH (RBC) [Entitic mass] 30.2 pg Normal 27.0-33.0 [facility] Comment on above: Performed By: #### L [id number] ####[facility] (BEAKER)[address] [place] [address] MCV (RBC) [Entitic vol] 88.4 fL Normal 82.0-98.0 [facility] Comment on above: Performed By: #### L [id number] ####[facility] (BEAKER)[address] [place] [address] PLATELETS (10*3/UL) IN BLOOD AUTOMATED COUNT 237 10*3/uL Normal 150-400 [facility] Comment on above: Performed By: #### L [id number] ####[facility] (BEAKER)[address] [place] [address] RBC (Bld) [#/Vol] 4.93 10*6/uL Normal 4.20-5.70 [facility] Comment on above: Performed By: #### L [id number] ####[facility] (BEAKER)[address] [place] [address] WBC (Bld) [#/Vol] 10.15 10*3/uL Normal 4.00-10.60 [facility] Comment on above: Performed By: #### L [id number] ####[facility] (BEAKER)[address] [place] [address] HPon 11-17-2022 HP H&P reviewed. The patient [...] consent was signed prior to the procedure. [facility] HP H&P reviewed. The patient was examined and there are no changes to the H&P. Rafat Garcia MD, MPH, [facility], [facility], [facility] Interventional Cardiology Pager Email: [email or web address] NURSNOTEsigrid 11-17-2022 NURSSHADI RN educated pt on d/c instructions. RN encouraged pt to voice any questions or concerns. Pt verbalizes no questions or concerns at this time. Pt was wheeled off of unit with all of belongings. [facility] Orders Onlyon 11-09-2022 Orders Only [id number] Lawson Lopez Justice 1980 M Date Provider Department Center 11/09/2022 [facility] VAS LAB OR HeartVAS Family History Problem Relation Age of Onset Coronary artery disease Mother's Brother Peripheral vascular disease Mother's Brother Family Status - Relation Status Age at Mother's Brother [facility] HPon 10-31-2022 [facility] Cardiology Clinic Note Chief Complaint: Patient here for follow up [facility] for chest pain. He was seen as [...] pending the above Rafat Garcia MD, MPH, [facility], [facility], [facility] Interventional Cardiology Pager Email: [email or web address] Normal [facility] Office Visiton 10-31-2022 Follow-up visit [id number] Lawson Lopez 1980 [facility] Provider Department Center 10/31/2022 [place]-RAFAT GARCIA CINDY Sin Family History Problem Relation Age of Onset Coronary artery disease Mother's Brother Peripheral vascular disease Mother's Brother Family Status - Relation Status Age at Mother's Brother Level of Service:[address] [place] OFFICE/OUTPATIENT ESTABLISHED HIGH MDM 40-54 MIN Normal [facility] Orders Onlyon 10-31-2022 Orders Only [id number] Lawson Lopez 1980 [facility] Provider Department Center 10/31/2022 TAE BENÍTEZ CINDY Sin Family History Problem Relation Age of Onset Coronary artery disease Mother's Brother Peripheral vascular disease Mother's Brother Family Status - Relation Status Age at Mother's Brother Normal [facility] Activated partial thrombopla stin time (aPTT) in platelet poor plasma by coagulation aOrdered By: Socorro Osullivan on 10-11-2022 aPTT Coag (PPP) [Time] 27.7 s 25.1-36.5 [facility] Automated basophil %Ordered By: Socorro Osullivan on 10-11-2022 Basophils/100 WBC (Bld) 0.9 % Normal . [facility] Comment on above: Performed By: #### H S TROP, CBC, PT, BNP, CK, PTT, BMP #### [address] Automated basophil countOrde red By: Socorro Osullivan on 10-11-2022 Basophils (Bld) [#/Vol] 0.1 10*3/uL Normal 0.0-0.2 [facility] Comment on above: Result Comment: PERF ORMED BY: [place] [address] PATHOLOGIST LEGAL ARBITRATOR BRICE STEPHEN M.D. Performed By: #### H S TROP, CBC, PT, BNP, CK, PTT, BMP #### [address] Automated blood monocyte cou ntOrdered By: Socorro Osullivan on 10-11-2022 Monocytes (Bld) [#/Vol] 0.7 10*3/uL Normal 0.0-0.8 [facility] Comment on above: Performed By: #### H S TROP, CBC, PT, BNP, CK, PTT, BMP #### [address] Automated eosinophil %Ordere d By: Socorro Osullivan on 10-11-2022 Eosinophils/100 WBC (Bld) 2.5 % Normal . [facility] Comment on above: Performed By: #### H S TROP, CBC, PT, BNP, CK, PTT, BMP #### [address] Automated eosinophil countOr dered By: Socorro Osullivan on 10-11-2022 Eosinophils (Bld) [#/Vol] 0.2 10*3/uL Normal 0.0-0.45 [facility] Comment on above: Performed By: #### H S TROP, CBC, PT, BNP, CK, PTT, BMP #### [facility] [address] [place] [address] Automated monocyte %Ordered By: Socorro Osullivan on 10-11-2022 Monocytes/100 WBC (Bld) 7.2 % Normal . [facility] Comment on above: Performed By: #### H S TROP, CBC, PT, BNP, CK, PTT, BMP #### [address] Automated neutrophil %Ordere d By: Socorro Osullivan on 10-11-2022 Neutrophils/100 WBC (Bld) 70.8 % Normal . [facility] Comment on above: Performed By: #### H S TROP, CBC, PT, BNP, CK, PTT, BMP #### [address] BNP ser/plasOrdered By: Lisa Osullivan on 10-11-2022 Natriuretic peptide B (Bld) [Mass/Vol] 21.0 pg/mL Normal 5-100 [facility] Comment on above: Result Comment: PERF ORMED BY: [place] [address] PATHOLOGIST LEGAL ARBITRATOR BRICE STEPHEN M.D. Performed By: #### H S TROP, CBC, PT, BNP, CK, PTT, BMP #### [address] Basic Metabolic Panelon Creatinine Clr Calc Pharmacy 158.41 Normal [facility] Comment on above: Result Comment: PERF ORMED BY: [place] [address] PATHOLOGIST LEGAL ARBITRATOR BRICE STEPHEN M.D. Performed By: #### H S TROP, CBC, PT, BNP, CK, PTT, BMP #### [address] GFR/1.73 sq M.predicted MDRD (S/P/Bld) [Vol rate/Area] mL/min/{1.73_m2} Normal [facility] Comment on above: Performed By: #### H S TROP, CBC, PT, BNP, CK, PTT, BMP #### [facility] [address] [place] [address] [place] Calcium [Mass/volume] in Ser um or PlasmaOrdered By: Socorro Osullivan on 10-11-2022 Calcium [Mass/Vol] 9.5 mg/dL Normal 8.6-10.[address] [facility] Comment on above: Performed By: #### H S TROP, CBC, PT, BNP, CK, PTT, BMP #### [address] Carbon dioxide, total [Moles /volume] in Serum or PlasmaOrdered By: Socorro Osullivan on 10-11-2022 CO2 [Moles/Vol] 29.1 mmol/L Normal 21.0-31.0 [facility] Comment on above: Performed By: #### H S TROP, CBC, PT, BNP, CK, PTT, BMP #### [place] [address] [place] Chloride [Moles/volume] in S josselin or PlasmaOrdered By: Socorro Osullivan on 10-11-2022 Chloride [Moles/Vol] 102 mmol/L Normal 98-107 [facility] Comment on above: Performed By: #### H S TROP, CBC, PT, BNP, CK, PTT, BMP #### [place] [address] [place] Complete Blood Count Auto Di ffon 10-11-2022 Mean Corpuscular HGB Conc 35.1 g/dL Normal 32.5-35.6 [facility] Comment on above: Performed By: #### H S TROP, CBC, PT, BNP, CK, PTT, BMP #### [place] [address] [place] Monocytes/100 WBC (Bld) 18.08 % Normal 0.00-20.00 [facility] Comment on above: Performed By: #### H S TROP, CBC, PT, BNP, CK, PTT, BMP #### [address] NRBC% 0.2 /100{WBC} Normal 0-0.5 [facility] Comment on above: Performed By: #### H S TROP, CBC, PT, BNP, CK, PTT, BMP #### [address] Creatine kinase [Enzymatic a ctivity/volume] in Serum or PlasmaOrdered By: Socorro Osullivan on 10-11-2022 CK [Catalytic activity/Vol] 87 U/L Normal 30-223 [facility] Comment on above: Performed By: #### H S TROP, CBC, PT, BNP, CK, PTT, BMP #### [address] Creatinine [Mass/volume] in Serum or PlasmaOrdered By: Socorro Osullivan on 10-11-2022 Creatinine [Mass/Vol] 0.79 mg/dL Normal 0.70-1.30 [facility] Comment on above: Performed By: #### H S TROP, CBC, PT, BNP, CK, PTT, BMP #### [address] ECG 12 lead ECGon 10-11-2022 ECG 12 lead ECG [facility] [place] [address] [place] [address] Electrocardiograph Report Signed Patient: Lawson Lopez MR#: [id number] : 1980 Acct:[id number] Age/Sex: 42 / M ADM Date: 10/11/22 Loc: ER [facility]: [facility] Dr: Ordering Provider: Socorro [...] was found Confirmed by MARCELA MARTINEZ DO ([id number]) on 10/11/2022 4:18:13 PM Referred By: Electronically Signed By:MARCELA MARTINEZ DO Transcribed By: MUS Signed By Marcela Martinez DO 10/11 1618 Normal [facility] Erythrocyte distribution wid th [Ratio] by Automated countOrdered By: Socorro Osullivan on 10-11-2022 Erythrocyte distribution width (RBC) [Ratio] 13.3 % Normal 12.0-14.8 [facility] Comment on above: Performed By: #### H S TROP, CBC, PT, BNP, CK, PTT, BMP #### [facility] [address] [place] [address] [place] Erythrocytes [#/volume] in B lood by Automated countOrdered By: Socorro Osullivan on 10-11-2022 RBC (Bld) [#/Vol] 4.67 10*6/uL Normal 3.90-5.60 [facility] Comment on above: Performed By: #### H S TROP, CBC, PT, BNP, CK, PTT, BMP #### [facility] [address] Glucose [Mass/volume] in Ser um or PlasmaOrdered By: Socorro Osullivan on 10-11-2022 Glucose [Mass/Vol] 90 mg/dL Normal 70-[address] [facility] Comment on above: ADA recommended refe rence rangeRandom Glucose Reference Range is dependent on time and content of last meal. Glucose of more than 200 mg/dL in a nonstressed, ambulatory subject supports the diagnosis of Diabetes Mellitus. Result Comment: [place] om Glucose Reference Range is dependent on time and content of last meal. Glucose of more than 200 mg/dL in a nonstressed, ambulatory subject supports the diagnosis of Diabetes Mellitus. ADA recommended reference range Performed By: #### H S TROP, CBC, PT, BNP, CK, PTT, BMP #### [address] Hematocrit [Volume Fraction] of Blood by Automated countOrdered By: Socorro Osullivan on 10-11-2022 Hematocrit (Bld) [Volume fraction] 40.4 % Normal 38.8-50.0 [facility] Comment on above: Performed By: #### H S TROP, CBC, PT, BNP, CK, PTT, BMP #### [address] Hemoglobin [Mass/volume] in BloodOrdered By: Socorro Osullivan on 10-11-2022 Hemoglobin (Bld) [Mass/Vol] 14.2 g/dL Normal 13.0-17.0 [facility] Comment on above: Performed By: #### H S TROP, CBC, PT, BNP, CK, PTT, BMP #### [address] Ionized Calciumon 10-11-2022 Ionized Calcium 4.8 mg/dL Normal 4.5-5.6 [facility] Comment on above: Result Comment: Perf ormed at: CB - [facility] [address] [id number] Regional Education Manager: Willi Chester PhD, Phone: [phone] PERFORMED BY: [place] [address] PATHOLOGIST LEGAL ARBITRATOR BRICE STEPHEN M.D. Performed By: #### C AION #### [facility] , Leukocytes [#/volume] correc giselle for nucleated erythrocytes in Blood by Automated counOrdered By: Socorro Osullivan on 10-11-2022 WBC corrected for nucl RBC Auto (Bld) [#/Vol] 9.5 10*3/uL 4.1-10.5 [facility] Leukocytes [#/volume] in Blo od by Automated countOrdered By: Socorro Osullivan on 10-11-2022 WBC (Bld) [#/Vol] 9.5 10*3/uL Normal 4.1-10.[address] [facility] Comment on above: Performed By: #### H S TROP, CBC, PT, BNP, CK, PTT, BMP #### [facility] [address] [place] [address] Lymphocytes [#/volume] in Bl ood by Automated countOrdered By: Socorro Osullivan on 10-11-2022 Lymphocytes (Bld) [#/Vol] 1.8 10*3/uL Normal 1.00-4.8 [facility] Comment on above: Performed By: #### H S TROP, CBC, PT, BNP, CK, PTT, BMP #### [address] Lymphocytes/100 leukocytes i n Blood by Automated countOrdered By: Socorro Osullivan on 10-11-2022 Lymphocytes/100 WBC (Bld) 18.6 % Normal . [facility] Comment on above: Performed By: #### H S TROP, CBC, PT, BNP, CK, PTT, BMP #### [address] MCH [Entitic mass] by Automa giselle countOrdered By: Socorro Osullivan on 10-11-2022 MCH (RBC) [Entitic mass] 30.4 pg Normal 27.5-35.2 [facility] Comment on above: Performed By: #### H S TROP, CBC, PT, BNP, CK, PTT, BMP #### [address] MCHC Auto (RBC) [Mass/Vol]Or dered By: Socorro Osullivan on 10-11-2022 MCHC (RBC) [Mass/Vol] 35.1 g/dL 32.5-35.6 [facility] MCV [Entitic volume] by Auto mated countOrdered By: Socorro Osullivan on 10-11-2022 MCV (RBC) [Entitic vol] 86.6 fL Normal 83.5-101 [facility] Comment on above: Performed By: #### H S TROP, CBC, PT, BNP, CK, PTT, BMP #### [address] Monocyte distribution width [Entitic volume] in Blood by AutomatedOrdered By: Socorro Osullivan on 10-11-2022 Monocyte distribution width Auto (Bld) [Entitic vol] 18.08 % 0.00-20.00 [facility] Neutrophils [#/volume] in Bl ood by Automated countOrdered By: Socorro Osullivan on 10-11-2022 Neutrophils (Bld) [#/Vol] 6.7 10*3/uL Normal 1.8-7.7 [facility] Comment on above: Performed By: #### H S TROP, CBC, PT, BNP, CK, PTT, BMP #### [facility] [address] [place] [address] No Panel InformationOrdered By: Socorro Osullivan on 10-11-2022 Estimated GFR (CKD-EPI) > 60.0 mL/Min [facility] Creatinine Clearance (Chem 158.41 [facility] Nucleated erythrocytes [Pres ence] in Blood by Automated countOrdered By: Socorro Osullivan on 10-11-2022 Nucleated RBC Auto Ql (Bld) 0.2 /100{WBC} 0-0.5 [facility] Partial Thromboplastin Timeo n 10-11-2022 aPTT Coag (Bld) [Time] 27.7 s Normal 25.1-36.5 [facility] Comment on above: Result Comment: PERF ORMED BY: [place] [address] PATHOLOGIST LEGAL ARBITRATOR BRICE STEPHEN M.D. Performed By: #### H S TROP, CBC, PT, BNP, CK, PTT, BMP #### [facility] [address] [place] [address] Platelet mean volume [Entiti c volume] in Blood by Automated countOrdered By: Socorro Osullivan on 10-11-2022 Platelet mean volume (Bld) [Entitic vol] 8.0 fL Normal 6.6-10.1 [facility] Comment on above: Performed By: #### H S TROP, CBC, PT, BNP, CK, PTT, BMP #### [address] Platelet poor plasma interna tional normalized ratio (INR) by coagulation assay (relatOrdered By: Socorro Osullivan on 08-01-2023 INR Coag (PPP) [Relative time] 1.0 {INR} Normal [facility] Comment on above: INR Therapeutic Rang [...] CBC, PT, BNP, CK, PTT, BMP #### [facility] [address] [place] [address] Platelets [#/volume] in Bloo d by Automated countOrdered By: Socorro Osullivan on 10-11-2022 Platelets (Bld) [#/Vol] 218 10*3/uL Normal 150-450 [facility] Comment on above: Performed By: #### H S TROP, CBC, PT, BNP, CK, PTT, BMP #### [address] Potassium [Moles/volume] in Serum or PlasmaOrdered By: Socorro Osullivan on 10-11-2022 Potassium [Moles/Vol] 3.8 mmol/L Normal 3.5-5.1 [facility] Comment on above: Performed By: #### H S TROP, CBC, PT, BNP, CK, PTT, BMP #### [facility] [address] [place] [address] Prothrombin Time INROrdered By: Socorro Osullivan on 10-11-2022 PT Coag (PPP) [Time] 12.0 s Normal 9.0-12.9 [facility] Comment on above: Performed By: #### H S TROP, CBC, PT, BNP, CK, PTT, BMP #### [address] Serum or plasma anion gap de terminationOrdered By: Socorro Osullivan on 10-11-2022 Anion gap [Moles/Vol] 10.7 mmol/L Normal 6.0-15.0 [facility] Comment on above: Performed By: #### H S TROP, CBC, PT, BNP, CK, PTT, BMP #### [address] Sodium [Moles/volume] in Ser um or PlasmaOrdered By: Socorro Osullivan on 10-11-2022 Sodium [Moles/Vol] 138 mmol/L Normal 136-[address] [facility] Comment on above: Performed By: #### H S TROP, CBC, PT, BNP, CK, PTT, BMP #### [address] Troponin I High Sensitivityo n 10-11-2022 Troponin I High Sensitivity 6.3 pg/mL Normal 0.0-20.0 [facility] Comment on above: Result Comment: PERF ORMED BY: [place] [address] PATHOLOGIST LEGAL ARBITRATOR BRICE STEPHEN M.D. Performed By: #### H S TROP, CBC, PT, BNP, CK, PTT, BMP #### [address] Troponin I.cardiac [Mass/vol ume] in Serum or Plasma by Detection limit <= 0.01 ng/Ordered By: Socorro Osullivan on 10-11-2022 Troponin I.cardiac DL <= 0.01 ng/mL [Mass/Vol] 6.3 pg/mL 0.0-20.0 [facility] Urea nitrogen [Mass/volume] in Serum or PlasmaOrdered By: Socorro Osullivan on 10-11-2022 Urea nitrogen [Mass/Vol] 11 mg/dL Normal 7-25 [facility] Comment on above: Performed By: #### H S TROP, CBC, PT, BNP, CK, PTT, BMP #### [address] XR chest 2V*on 10-11-2022 XR chest 2V* [facility] [address] [place] [address] [place] [address] XRay Report Signed Patient: Lawson Lopez MR#: [id number] : 1980 Acct:[id number] Age/Sex: 42 / M ADM Date: 10/11/22 [...] Anguiano Jr., DDomitilaODomitila10/11/2022 1:17 PM Dictation Location: [place] [address] Transcribed By: [facility] 10/11/22 131 Dictated By: Wayne Anguiano Jr, DO 10/11/22 131 Signed By: 10/11/22 1317 Normal [facility] BNPon 05-16-2022 Natriuretic peptide B (Bld) [Mass/Vol] 51.0 pg/mL Normal <=450.0 [facility] Comment on above: Performed By: #### B CHIEF CONTRACT OFFICER, CMADM, BMP #### [facility] [address] [place] [address] [address] Divina Patino CARDIAC DAT 3-6on 3 CK [Catalytic activity/Vol] 43 U/L Normal 39-308 [facility] Comment on above: Performed By: #### L ACT #### [facility] [address] [address] [address] Divina Patino HSTROP 10.6 pg/mL Normal 4.0-76.1 [facility] Comment on above: Result Comment: CUT- OFF POINTS HAVE BEEN ESTABLISHED BASED ON THE FOURTH UNIVERSAL DEFINITIONS OF MYOCARDIAL INFARCTION. THE UPPER REFERENCE LIMIT (URL) OF TROPONIN, DEFINED THE 99TH PERCENTILE OF cTnI DISTRIBUTION IN A REFERENCE POPULATION, HAS BEEN CONFIRMED THE DECISION THRESHOLD FOR MA DIAGNOSIS. Performed By: #### L ACT #### [facility] [address] [place] [address] Dr. Divina Patino CARDIAC DAT ADMITon 023 CK [Catalytic activity/Vol] 44 U/L Normal 39-308 [facility] Comment on above: Performed By: #### B CHIEF CONTRACT OFFICER, CMADM, BMP #### [facility] [address] [place] [address] Dr. Divina Patino CK.MB [Mass/Vol] ng/mL Normal <=3.60 [facility] Comment on above: Performed By: #### B CHIEF CONTRACT OFFICERESME, BMP #### [facility] [address] [place] [address] Dr. Divina Patino HSTROP 9.9 pg/mL Normal 4.0-76.1 [facility] Comment on above: Result Comment: CUT- OFF POINTS HAVE BEEN ESTABLISHED BASED ON THE FOURTH UNIVERSAL DEFINITIONS OF MYOCARDIAL INFARCTION. THE UPPER REFERENCE LIMIT (URL) OF TROPONIN, DEFINED THE 99TH PERCENTILE OF cTnI DISTRIBUTION IN A REFERENCE POPULATION, HAS BEEN CONFIRMED THE DECISION THRESHOLD FOR MA DIAGNOSIS. Performed By: #### B CHIEF CONTRACT OFFICER, MAGDADM, BMP #### [facility] [address] [place] [address] Dr. Divina Patino CIELO 21 ng/mL Normal 16-96 [facility] Comment on above: Performed By: #### B CHIEF CONTRACT OFFICER, ESME, BMP #### [facility] [address] [place] [address] Dr. Divina Patino CBC AUTO DIFFon 05-16-2022 BASO # 0.1 103/ul Normal 0.0-0.1 [facility] Comment on above: Performed By: #### C BC #### [facility] [address] [place] [address] Dr. Divina Patino Basophils/100 WBC (Bld) 0.6 % Normal 0.2-2.0 [facility] Comment on above: Performed By: #### C BC #### [facility] [address] [place] [address] Dr. Divina Patino EO # 0.3 103/ul Normal 0.0-0.7 [facility] Comment on above: Performed By: #### C BC #### [facility] [address] [place] [address] Dr. Divina Patino Eosinophils/100 WBC (Bld) 2.3 % Normal 0.9-7.0 [facility] Comment on above: Performed By: #### C BC #### [facility] [address] [place] [address] Dr. Divina Patino Erythrocyte distribution width (RBC) [Ratio] 12.3 % Normal 11.0-15.0 [facility] Comment on above: Performed By: #### C BC #### [facility] [address] [place] [address] Dr. Divina Patino Hematocrit (Bld) [Volume fraction] 41.6 % Critically low 42.0-54.0 [facility] Comment on above: Performed By: #### C BC #### [facility] [address] [place] [address] Dr. Divina Patino Hemoglobin (Bld) [Mass/Vol] 14.6 g/dL Normal 14.0-18.0 [facility] Comment on above: Performed By: #### C BC #### [facility] [address] [place] [address] Dr. Divina Patino IG # 0.12 10e3/ul Critically high 0.00-0.03 [facility] Comment on above: Performed By: #### C BC #### [facility] [address] [place] [address] Dr. Divina Patino IG % 1.0 % Critically high 0.0-0.5 [facility] Comment on above: Performed By: #### C BC #### [facility] [address] [place] [address] Dr. Divina Patino LYMPH # 2.7 103/ul Normal 1.2-3.8 [facility] Comment on above: Performed By: #### C BC #### [facility] [address] [place] [address] Dr. Divina Patino Lymphocytes/100 WBC (Bld) 23.0 % Normal 20.5-60.0 [facility] Comment on above: Performed By: #### C BC #### [facility] [address] [place] [address] Dr. Divina Patino MANUAL DIFF REQ NO Normal [facility] Comment on above: Performed By: #### C BC #### [facility] [address] [place] [address] Dr. Divina Patino MCH (RBC) [Entitic mass] 30.0 pg Normal 25.9-34.0 [facility] Comment on above: Performed By: #### C BC #### [facility] [address] [place] [address] Dr. Divina Patino MCHC (RBC) [Mass/Vol] 35.1 g/dL Normal 29.9-35.2 [facility] Comment on above: Performed By: #### C BC #### [facility] [address] [place] [address] Dr. Divina Patino MCV (RBC) [Entitic vol] 85.6 fL Normal 80.0-94.0 [facility] Comment on above: Performed By: #### C BC #### [facility] [address] [place] [address] Dr. Divina Patino MONO # 1.0 103/ul Critically high 0.3-0.8 [facility] Comment on above: Performed By: #### C BC #### [facility] [address] [place] [address] Dr. Divina Patino Monocytes/100 WBC (Bld) 8.6 % Normal 1.7-12.0 [facility] Comment on above: Performed By: #### C BC #### [facility] [address] [place] [address] Dr. Divina Patino NEUT # 7.4 103/ul Critically high 1.4-6.5 [facility] Comment on above: Performed By: #### C BC #### [facility] [address] [place] [address] Dr. Divina Patino Neutrophils/100 WBC (Bld) 64.5 % Normal 43.0-75.0 [facility] Comment on above: Performed By: #### C BC #### [facility] [address] [address] [address] Divina Patino Platelet mean volume (Bld) [Entitic vol] 9.9 fL Normal 9.5-13.5 [facility] Comment on above: Performed By: #### C BC #### [facility] [address] [address] [address] Divina Patino PLT 231 103/ul Normal 150-450 [facility] Comment on above: Performed By: #### C BC #### [facility] [address] [place] [address] Dr. Divina Patino RBC 4.86 106/ul Normal 4.70-6.10 [facility] Comment on above: Performed By: #### C BC #### [facility] [address] [place] [address] Dr. Divina Patino WBC 11.5 103/ul Critically high 4.0-11.0 [facility] Comment on above: Performed By: #### C BC #### [facility] [address] [place] [address] Dr. Divina Patino D-DIMERon 05-16-2022 D-DIMER 0.19 mg/L FEU Normal <=0.59 [facility] Comment on above: Performed By: #### D DIM #### [facility] [address] [place] [address] Dr. Divina Patino D-DIMER COMMENTS SEE BELOW Normal [facility] Comment on above: Result Comment: Incr [...] hospitalization. Performed By: #### D DIM #### [facility] [address] [place] [address] Dr. Divina Patino LACTATE/LACTIC ACIDon 2022 Lactate [Moles/Vol] 1.5 mmol/L Normal 0.4-1.9 [facility] Comment on above: Performed By: #### L ACT #### [facility] [address] [place] [address] Dr. Divina Patino PROF CHEM 8 (BAS METB)on Anion gap [Moles/Vol] 13.7 mmol/L Normal [facility] Comment on above: Performed By: #### B CHIEF CONTRACT OFFICER, CMADM, BMP #### [facility] [address] [place] [address] Dr. Divina Patino Calcium [Mass/Vol] 8.7 mg/dL Normal 8.5-10.1 [facility] Comment on above: Performed By: #### B CHIEF CONTRACT OFFICER, CMADM, BMP #### [facility] [address] [place] [address] Dr. Divina Patino Chloride [Moles/Vol] 102 mmol/L Normal 98-107 [facility] Comment on above: Performed By: #### B CHIEF CONTRACT OFFICER, CMADM, BMP #### [facility] [address] [place] [address] Dr. Divina Patino CO2 [Moles/Vol] 27.1 mmol/L Normal 21.0-32.0 [facility] Comment on above: Performed By: #### B CHIEF CONTRACT OFFICER, CMADM, BMP #### [facility] [address] [place] [address] Dr. Divina Patino Creatinine [Mass/Vol] 0.85 mg/dL Normal 0.70-1.30 [facility] Comment on above: Performed By: #### B CHIEF CONTRACT OFFICER, CMADM, BMP #### [facility] [address] [place] [address] Dr. Divina Patino EGFR-AF ZAMBIAN >60 Normal >=60 [facility] Comment on above: Performed By: #### B CHIEF CONTRACT OFFICER, CMADM, BMP #### [facility] [address] [place] [address] Dr. Divina Patino EGFR-NON AF ZAMBIAN >60 Normal >=60 [facility] Comment on above: Performed By: #### B ESME ORTEGA, BMP #### [facility] [address] [place] [address] Dr. Divina Patino Glucose [Mass/Vol] 114 mg/dL Critically high 74-106 [facility] Comment on above: Performed By: #### B ESME ORTEGA, BMP #### [facility] [address] [place] [address] Dr. Divina Patino Potassium [Moles/Vol] 3.8 mmol/L Normal 3.5-5.1 [facility] Comment on above: Performed By: #### B ESME ORTEGA, BMP #### [facility] [address] [place] [address] Dr. Divina Patino Sodium [Moles/Vol] 139 mmol/L Normal 136-145 [facility] Comment on above: Performed By: #### B ESME ORTEGA, BMP #### [facility] [address] [place] [address] Dr. Divina Patino Urea nitrogen [Mass/Vol] 15.0 mg/dL Normal 7.0-18.0 [facility] Comment on above: Performed By: #### B ESME ORTEGA, BMP #### [facility] [address] [place] [address] Dr. Divina Patino Urea nitrogen/Creatinine [Mass ratio] 17.6 mg/mg Normal [facility] Comment on above: Performed By: #### B ESME ORTEGA, BMP #### [facility] [address] [place] [address] Dr. Divina Patino XR CHEST 1 Von [...] AMAN PURCELL Date: 2022-05-15 23:20 Normal [facility] CARDIAC DAT ADMITon 023 CK [Catalytic activity/Vol] 78 U/L Normal 39-308 [facility] Comment on above: Performed By: #### L ACT #### [facility] [address] [place] [address] Dr. Divina Patino CK.MB [Mass/Vol] 1.08 ng/mL Normal <=3.60 [facility] Comment on above: Performed By: #### L ACT #### [facility] [address] [place] [address] Dr. Divina Patino HSTROP 12.2 pg/mL Normal 4.0-76.1 [facility] Comment on above: Result Comment: CUT- OFF POINTS HAVE BEEN ESTABLISHED BASED ON THE FOURTH UNIVERSAL DEFINITIONS OF MYOCARDIAL INFARCTION. THE UPPER REFERENCE LIMIT (URL) OF TROPONIN, DEFINED THE 99TH PERCENTILE OF cTnI DISTRIBUTION IN A REFERENCE POPULATION, HAS BEEN CONFIRMED THE DECISION THRESHOLD FOR MA DIAGNOSIS. Performed By: #### L ACT #### [facility] [address] [place] [address] Dr. Divina Patino CIELO 24 ng/mL Normal 16-96 [facility] Comment on above: Performed By: #### L ACT #### [facility] [address] [place] [address] Dr. Divina Patino CBC AUTO DIFFon 05-11-2022 BASO # 0.1 103/ul Normal 0.0-0.1 [facility] Comment on above: Performed By: #### L ACT #### [facility] [address] [place] [address] Dr. Divina Patino Basophils/100 WBC (Bld) 0.6 % Normal 0.2-2.0 [facility] Comment on above: Performed By: #### L ACT #### [facility] [address] [place] [address] Dr. Divina Patino EO # 0.2 103/ul Normal 0.0-0.7 [facility] Comment on above: Performed By: #### L ACT #### [facility] [address] [place] [address] Dr. Divina Patino Eosinophils/100 WBC (Bld) 2.0 % Normal 0.9-7.0 [facility] Comment on above: Performed By: #### L ACT #### [facility] [address] [place] [address] Dr. Divina Patino Erythrocyte distribution width (RBC) [Ratio] 12.4 % Normal 11.0-15.0 [facility] Comment on above: Performed By: #### L ACT #### [facility] [address] [place] [address] Dr. Divina Patino Hematocrit (Bld) [Volume fraction] 43.8 % Normal 42.0-54.0 [facility] Comment on above: Performed By: #### L ACT #### [facility] [address] [place] [address] Dr. Divina Patino Hemoglobin (Bld) [Mass/Vol] 15.3 g/dL Normal 14.0-18.0 [facility] Comment on above: Performed By: #### L ACT #### [facility] [address] [place] [address] Dr. Divina Patino IG # 0.06 10e3/ul Critically high 0.00-0.03 [facility] Comment on above: Performed By: #### L ACT #### [facility] [address] [place] [address] Dr. Divina Patino IG % 0.6 % Critically high 0.0-0.5 [facility] Comment on above: Performed By: #### L ACT #### [facility] [address] [place] [address] Dr. Divina Patino LYMPH # 2.0 103/ul Normal 1.2-3.8 [facility] Comment on above: Performed By: #### L ACT #### [facility] [address] [place] [address] Dr. Divina Patino Lymphocytes/100 WBC (Bld) 19.9 % Critically low 20.5-60.0 [facility] Comment on above: Performed By: #### L ACT #### [facility] [address] [place] [address] Dr. Divina Patino MANUAL DIFF REQ NO Normal [facility] Comment on above: Performed By: #### L ACT #### [facility] [address] [place] [address] Dr. Divina Patino MCH (RBC) [Entitic mass] 30.2 pg Normal 25.9-34.0 [facility] Comment on above: Performed By: #### L ACT #### [facility] [address] [place] [address] Dr. Divina Patino MCHC (RBC) [Mass/Vol] 34.9 g/dL Normal 29.9-35.2 [facility] Comment on above: Performed By: #### L ACT #### [facility] [address] [place] [address] Dr. Divina Patino MCV (RBC) [Entitic vol] 86.6 fL Normal 80.0-94.0 [facility] Comment on above: Performed By: #### L ACT #### [facility] [address] [place] [address] Dr. Divina Patino MONO # 0.8 103/ul Normal 0.3-0.8 [facility] Comment on above: Performed By: #### L ACT #### [facility] [address] [place] [address] Dr. Divina Patino Monocytes/100 WBC (Bld) 7.7 % Normal 1.7-12.0 [facility] Comment on above: Performed By: #### L ACT #### [facility] [address] [place] [address] Dr. Divina Patino NEUT # 7.1 103/ul Critically high 1.4-6.5 [facility] Comment on above: Performed By: #### L ACT #### [facility] [address] [place] [address] Dr. Divina Patino Neutrophils/100 WBC (Bld) 69.2 % Normal 43.0-75.0 [facility] Comment on above: Performed By: #### L ACT #### [facility] [address] [place] [address] Dr. Divina Patino Platelet mean volume (Bld) [Entitic vol] 10.3 fL Normal 9.5-13.5 [facility] Comment on above: Performed By: #### L ACT #### [facility] [address] [address] [address] Divina Patino PLT 238 103/ul Normal 150-450 [facility] Comment on above: Performed By: #### L ACT #### [facility] [address] [address] [address] Divina Patino RBC 5.06 106/ul Normal 4.70-6.10 [facility] Comment on above: Performed By: #### L ACT #### [facility] [address] [address] [address] Divina Patino WBC 10.3 103/ul Normal 4.0-11.0 [facility] Comment on above: Performed By: #### L ACT #### [facility] [address] [place] [address] Dr. Divina Patino CRPon 05-11-2022 CRP [Mass/Vol] mg/L Normal <=1.0 [facility] Comment on above: Performed By: #### L ACT #### [facility] [address] [place] [address] HEAD WO CONon [...] JAMES JOHNSTON Date: 2022-05-11 19:47 Normal [facility]on SARS-CoV-2 (COVID-19) RNA JERRICA+probe Ql (Unsp spec) Not detected Normal NOT DETECTED [facility] Comment on above: Result Comment: When [...] for this test is supported by the Exercise Manager of Health and Human Service's declaration that [...] used). Performed By: #### C VDTB #### [facility] [address] [place] [address] Dr. Divina Patino INFLUENZA A AND B AGon 05-11 [facility] SEE BELOW Normal [facility] Comment on above: Result Comment: Nega tive for Flu A protein angiten. Infection due to Flu A cannot be ruled out. Flu A angiten in the sample may be below the detection limit of the test. Performed By: #### I NFLUAB #### [facility] [address] [place] [address] Dr. [facility] Normal [facility] Comment on above: Result Comment: Nega tive for Flu B protein antigen. Infection due to Flu B cannot be ruled out. Flu B antigen in the sample may be below the detection limit of the test. Performed By: #### I NFLUAB #### [facility] [address] [place] [address] Dr. Divina Patino INFLUENZA A AG Negative Normal NEGATIVE SEE COMMENT [facility] Comment on above: Performed By: #### I NFLUAB #### [facility] [address] [place] [address] Dr. Divina Patino INFLUENZA B AG Negative Normal NEGATIVE SEE COMMENT [facility] Comment on above: Performed By: #### I NFLUAB #### [facility] [address] [place] [address] Dr. Divian Patino LACTATE/LACTIC ACIDon 2022 Lactate [Moles/Vol] 1.8 mmol/L Normal 0.4-1.9 [facility] Comment on above: Performed By: #### L ACT #### [facility] [address] [place] [address] Dr. Divina Patino MONOon 05-11-2022 Monocytes (Bld) [#/Vol] Negative Normal NEGATIVE [facility] Comment on above: Performed By: #### M LEANDRO #### [facility] [address] [place] [address] Dr. Divina Patino PROF CHEM 8 (BAS METB)on Anion gap [Moles/Vol] 12.8 mmol/L Normal [facility] Comment on above: Performed By: #### L ACT #### [facility] [address] [place] [address] Dr. Divina Patino Calcium [Mass/Vol] 9.1 mg/dL Normal 8.5-10.1 [facility] Comment on above: Performed By: #### L ACT #### [facility] [address] [place] [address] Dr. Divina Patino Chloride [Moles/Vol] 101 mmol/L Normal 98-107 [facility] Comment on above: Performed By: #### L ACT #### [facility] [address] [place] [address] Dr. Divina Patino CO2 [Moles/Vol] 26.9 mmol/L Normal 21.0-32.0 [facility] Comment on above: Performed By: #### L ACT #### [facility] [address] [place] [address] Dr. Divina Patino Creatinine [Mass/Vol] 0.90 mg/dL Normal 0.70-1.30 [facility] Comment on above: Performed By: #### L ACT #### [facility] [address] [place] [address] Dr. Divina Patino EGFR-AF ZAMBIAN >60 Normal >=60 [facility] Comment on above: Performed By: #### L ACT #### [facility] [address] [address] [address] Divina Patino EGFR-NON AF ZAMBIAN >60 Normal >=60 [facility] Comment on above: Performed By: #### L ACT #### [facility] [address] [address] [address] Divina Patino Glucose [Mass/Vol] 110 mg/dL Critically high 74-106 [facility] Comment on above: Performed By: #### L ACT #### [facility] [address] [address] [address] Divina Patino Potassium [Moles/Vol] 3.7 mmol/L Normal 3.5-5.1 [facility] Comment on above: Performed By: #### L ACT #### [facility] [address] [address] [address] Divina Patino Sodium [Moles/Vol] 137 mmol/L Normal 136-145 [facility] Comment on above: Performed By: #### L ACT #### [facility] [address] [address] [address] Divina Patino Urea nitrogen [Mass/Vol] 11.0 mg/dL Normal 7.0-18.0 [facility] Comment on above: Performed By: #### L ACT #### [facility] [address] [address] [address] Divina Patino Urea nitrogen/Creatinine [Mass ratio] 12.2 mg/mg Normal [facility] Comment on above: Performed By: #### L ACT #### [facility] [address] [address] [address] Divina Patino SED RATE CONCORDERGRENon 2022 SED RATE 16 mm/hr Critically high <=15 [facility] Comment on above: Performed By: #### L ACT #### [facility] [address] [address] [address] Divina Patino TSHon 05-11-2022 TSH 3.949 uIU/mL Critically high 0.358-3.740 [facility] Comment on above: Performed By: #### L ACT #### [facility] [address] [address] [address] Divina Patino COVID-19 SOFIAOrdered By: Andres Elizondo on 12-02-2021 SARS-CoV+SARS-CoV-2 (COVID-19) Ag IA.rapid Ql (Resp) Negative Negative [facility] Comment on above: This is a duplicate Judith SARS Antigen (ANURAG) result to be used for statistical tracking purpose only. No Panel InformationOrdered By: Elian Elizondo on 12-02-2021 SARS Antigen (LFIA) [facility] CBC with Auto Differentialon 06-08-2021 Absolute Eos # 0.11 [facility] th Absolute Immature Granulocyte 0.06 [facility] Absolute Lymph # 1.65 [facility] Absolute [place] # 1.03 [facility] Basophils (Bld) [#/Vol] 0.07 10*3/uL [facility] Basophils/100 WBC (Bld) 1 % 0 - 2 % [facility] Eosinophils/100 WBC (Bld) 1 % 1 - 4 % [facility] Hematocrit (Bld) [Volume fraction] 47.5 % 40.7 - 50.3 % [facility] Hemoglobin.gastroint estinal spec 1 Ql (Stl) 16.3 g/dL 13.0 - 17.0 g/dL [facility] Immature granulocytes/100 WBC (Bld) 1 % High 0 [facility] Interpretation and review of laboratory results Abnormal [facility] Lymphocytes/100 WBC (Bld) 14 % Low 24 - 43 % [facility] MCH (RBC) [Entitic mass] 30.5 pg 25.2 - 33.5 pg [facility] MCHC (RBC) [Mass/Vol] 34.3 g/dL 28.4 - 34.8 g/dL [facility] MCV (RBC) [Entitic vol] 89.0 fL 82.6 - 102.9 fL [facility] Monocytes/100 WBC (Bld) 9 % 3 - 12 % [facility] NRBC Automated 0.0 0.0 per 100 WBC [facility] Platelet distribution width (Bld) [Ratio] 12.5 % 11.8 - 14.4 % [facility] Platelet mean volume (Bld) [Entitic vol] 10.8 fL 8.1 - 13.5 fL [facility] Platelets (Bld) [#/Vol] 231 10*3/uL [facility] RBC (Bld) [#/Vol] 5.34 10*6/uL 4.21 - 5.77 m/uL [facility] Segmented neutrophils/100 WBC (Bld) 74 % High 36 - 65 % [facility] Segs Absolute 9.05 High [facility] WBC (Bld) [#/Vol] 12.0 10*3/uL High [facility] CT ABDOMEN PELVIS W IV CONTR AST Additional Contrast? Noneon 06-08-2021 Findings suspicious for acute enteritis. Diffuse hepatic steatosis. Nonobstructing stones in the left kidney. Normal appendix. [facility] CONSOLIDATED EXAMINATION: CT OF THE ABDOMEN AND [...] HISTORY: ORDERING SYSTEM PROVIDED HISTORY: [facility] pain TECHNOLOGIST PROVIDED HISTORY: [facility] pain Decision Support Exception - unselect [...] HISTORY: ORDERING SYSTEM PROVIDED HISTORY: [facility] pain TECHNOLOGIST PROVIDED HISTORY: [facility] pain Decision Support Exception - unselect [...] stones in the left kidney. Normal appendix. [employer] Phone: Radiology Study observation (narrative) [employer] Phone: CT ABDOMEN PELVIS W IV CONTR AST Additional Contrast? NoneOrdered By: Ok Rodgers on 06-08-2021 [employer] Phone: Comprehensive Metabolic Pane karan 06-08-2021 Albumin [Mass/Vol] 4.6 g/dL 3.5 - 5.2 g/dL [facility] Albumin/Globulin [Mass ratio] 1.5 {ratio} [facility] ALP (Bld) [Catalytic activity/Vol] 90 U/L 40 - 129 U/L [facility] ALT [Catalytic activity/Vol] 37 U/L 5 - 41 U/L [facility] Anion gap [Moles/Vol] 10 mmol/L 9 - 17 mmol/L [facility] AST [Catalytic activity/Vol] 18 U/L <40 [facility] Bilirubin [Mass/Vol] 0.83 mg/dL 0.3 - 1.2 mg/dL [facility] Calcium [Mass/Vol] 9.7 mg/dL 8.6 - 10.4 mg/dL [facility] Chloride [Moles/Vol] 101 mmol/L 98 - 107 mmol/L [facility] CO2 [Moles/Vol] 29 mmol/L 20 - 31 mmol/L [facility] Creatinine [Mass/Vol] 0.83 mg/dL 0.70 - 1.20 mg/dL [facility] Free PSA/Total PSA [Mass fraction] 7.6 g/dL 6.4 - 8.3 g/dL [facility] GFR >60 >60 mL/min [facility] GFR Non- >60 >60 mL/min [facility] Glucose [Mass/Vol] 110 mg/dL High 70 - 99 mg/dL [facility] Interpretation and review of laboratory results Abnormal [facility] Potassium [Moles/Vol] 4.2 mmol/L 3.7 - 5.3 mmol/L [facility] Sodium [Moles/Vol] 140 mmol/L 135 - 144 mmol/L [facility] Urea nitrogen (BldV) [Mass/Vol] 10 mg/dL 6 - 20 mg/dL [facility] Urea nitrogen/Creatinine (Bld) [Mass ratio] 12 [facility] - Chemistry and C hemistry - challengeon 06-08-2021 GFR/1.73 sq M.predicted MDRD (S/P/Bld) [Vol rate/Area] [facility] Comment on above: Average GFR for 40-4 9 years old: 99 mL/min/1.73sq m Chronic Kidney Disease: <60 mL/min/1.73sq m Kidney failure: <15 mL/min/1.73sq m eGFR calculated using average adult body mass. Additional eGFR calculator available at: http://www.[employer].GemPhones/multiple_crcl_2011.htm Stage 1: Some kidney damage normal GFR Stage 2: Mild kidney damage GFR 60-89 Stage 3: Moderate kidney damage GFR 30-59 Stage 4: Severe kidney damage GFR 15-29 Stage 5: Severe kidney damage GFR <15 ESRD - chronic treatment by dialysis or transplant Lactic Acidon 06-08-2021 Lactate [Moles/Vol] 2.1 mmol/L 0.5 - 2.2 mmol/L [facility] Lipaseon 06-08-2021 Lipase [Catalytic activity/Vol] 30 U/L 13 - 60 U/L [facility] No Panel Informationon 06-08 [facility] Basic Metabolic Panelon Anion gap [Moles/Vol] 9 mmol/L 9 - 17 mmol/L [place] Bun/Cre Ratio 12 [place] Calcium [Mass/Vol] 8.8 mg/dL 8.6 - 10.4 mg/dL [place] Chloride [Moles/Vol] 98 mmol/L 98 - 107 mmol/L [place] CO2 [Moles/Vol] 26 mmol/L 20 - 31 mmol/L [place] Creatinine [Mass/Vol] 1.04 mg/dL 0.7 - 1.2 mg/dL [place] GFR >60 >60 mL/min [place] GFR Non- >60 >60 mL/min [place] Glucose [Mass/Vol] 111 mg/dL High 70 - 99 mg/dL [place] Interpretation and review of laboratory results Abnormal [place] Potassium [Moles/Vol] 3.9 mmol/L 3.7 - 5.3 mmol/L [place] Sodium [Moles/Vol] 133 mmol/L Low 135 - 144 mmol/L [place] Urea nitrogen [Mass/Vol] 12 mg/dL 6 - 20 mg/dL [place] Brain Natriuretic Peptideon 03-19-2020 Natriuretic peptide B (Bld) [Mass/Vol] Pro-BNP Reference Range: [place] Comment on above: Rule Out: <300 Reis Zone: Age <50 300-450 Age 50-75 300-900 Age >75 300-1800 Usually represents mild to moderate HF but other cardiopulmonary causes cannot be ruled out. Rule In: Age <50 >450 Age 50-75 >900 Age >75 >1800 Natriuretic peptide B (Bld) [Mass/Vol] 60 pg/mL <300 [place] Comment on above: Pro-BNP results radha ot be compared to BNP results. CBC Auto Differentialon Basophils (Bld) [#/Vol] 0.04 10*3/uL [place] Basophils/100 WBC (Bld) 1 % 0 - 2 % [place] Differential Type NOT REPORTED [place] Eosinophils (Bld) [#/Vol] 0.04 10*3/uL [place] Eosinophils/100 WBC (Bld) 1 % 1 - 4 % [place] Erythrocyte distribution width (RBC) [Ratio] 12.5 % 11.8 - 14.4 % [place] Hematocrit (Bld) [Volume fraction] 48.2 % 40.7 - 50.3 % [place] Hemoglobin (Bld) [Mass/Vol] 16.3 g/dL 13 - 17 g/dL [place] Immature granulocytes (Bld) [#/Vol] 1 % High 0 [place] Immature granulocytes (Bld) [#/Vol] 0.07 10*3/uL [place] Interpretation and review of laboratory results Abnormal [place] Lymphocytes (Bld) [#/Vol] 1.10 10*3/uL [place] Lymphocytes/100 WBC (Bld) 13 % Low 24 - 43 % [place] MCH (RBC) [Entitic mass] 29.4 pg 25.2 - 33.5 pg [place] MCHC (RBC) [Mass/Vol] 33.8 g/dL 28.4 - 34.8 g/dL [place] MCV (RBC) [Entitic vol] 87.0 fL 82.6 - 102.9 fL [place] Monocytes (Bld) [#/Vol] 0.96 10*3/uL [place] Monocytes/100 WBC (Bld) 11 % 3 - 12 % [place] Platelet mean volume (Bld) [Entitic vol] 11.2 fL 8.1 - 13.5 fL [place] Platelets (Bld) [#/Vol] 175 10*3/uL [place] Platelets (Bld) [#/Vol] NOT REPORTED [place] RBC (Bld) [#/Vol] 5.54 10*6/uL 4.21 - 5.77 m/uL [place] RBC morphology finding Nom (Bld) NOT REPORTED [place] Segmented neutrophils/100 WBC (Bld) 73 % High 36 - 65 % [place] Segs Absolute 6.21 [place] WBC (Bld) [#/Vol] 8.4 10*3/uL [place] WBC (Bld) [#/Vol] 0.0 10*3/uL 0.0 per 100 WBC M [place] WBC Morphology NOT REPORTED [place] COVID-19, PCRon 03-19-2020 Interpretation and review of laboratory results Abnormal [place] SARS-CoV-2, Rapid DETECTED Abnormal Not Detected [place] Comment on above: Rapid NAAT: The [...] this assay. Fact sheet for Healthcare Providers: https://www.fda.gov/media/683286/download Fact sheet for Patients: https://www.fda.gov/media/437182/download Methodology: Isothermal Nucleic Acid Amplification Results reported to the appropriate Health Department Source .NASOPHARYNGEAL SWAB [place] CT CHEST PULMONARY EMBOLISM W CONTRASTon 03-19-2020 1. No pulmonary embolism. 2. Multifocal ground-glass opacities in the bilateral lungs with overall pattern of concern for underlying viral pneumonitis. 3. Hepatomegaly and diffuse steatosis in the abdomen, stable from remote imaging. [place] [facility] Incoming Radiant Results From [employer]/Pacs - 03/19/2020 8:26 PM EST EXAMINATION: CTA [...] in the abdomen, stable from remote imaging. [place] EXAMINATION: CTA OF THE CHEST 03/19/2020 [...] Tissues/Bones: No skeletal abnormalities throughout the chest. [place] Lactic Acid, Plasmaon 2020 Lactate [Moles/Vol] 1.2 mmol/L 0.5 - 2.2 mmol/L [place] Lactic Acid, Whole Blood NOT REPORTED 0.7 - 2.1 mmol/L [place] Metabolic Panelon 03-19-2020 GFR/1.73 sq M predicted among non-blacks MDRD (S/P/Bld) [Vol rate/Area] [place] Comment on above: Average GFR for 40-4 9 years old: 99 mL/min/1.73sq m Chronic Kidney Disease: <60 mL/min/1.73sq m Kidney failure: <15 mL/min/1.73sq m eGFR calculated using average adult body mass. Additional eGFR calculator available at: http://www.[employer].GemPhones/multiple_crcl_2012.htm Stage 1: Some kidney damage normal GFR Stage 2: Mild kidney damage GFR 60-89 Stage 3: Moderate kidney damage GFR 30-59 Stage 4: Severe kidney damage GFR 15-29 Stage 5: Severe kidney damage GFR <15 ESRD - chronic treatment by dialysis or transplant Otheron 03-19-2020 SARS-CoV-2 [place] Rapid influenza A/B antigens on 03-19-2020 Direct Exam NEGATIVE for Influenza A + B antigens. PCR testing to confirm this result is available upon request. Specimen will be saved in the laboratory for 7 days. Please call [phone] if PCR testing is indicated. [place] Special Requests NOT REPORTED [place] Specimen Description .NASOPHARYNGEAL SWAB [place] Troponinon 03-19-2020 Troponin I.cardiac [Mass/Vol] NOT REPORTED [place] Troponin T.cardiac [Mass/Vol] NOT REPORTED <0.03 ng/mL [place] Troponin, High Sensitivity 15 ng/L 0 - 22 ng/L [place] Comment on above: High Sensitivity Troponin values cannot be compared with other Troponin methodologies. Patients with high levels of Biotin oral intake (i.e >5mg/day) may have falsely decreased Troponin levels. Samples collected within 8 hours of biotin intake may require additional information for diagnosis. XR CHEST PORTABLEon 03-19-19 21 [facility], [facility] Incoming Radiant Results From [employer] - 03/19/2020 6:06 PM EST EXAMINATION: ONE XRAY VIEW OF THE CHEST 03/19/2020 5:58 pm COMPARISON: June 27, 2018 HISTORY: ORDERING SYSTEM PROVIDED HISTORY: dyspnea TECHNOLOGIST PROVIDED HISTORY: dyspnea FINDINGS: Mild edema. Heart and mediastinum normal. Bony thorax intact. IMPRESSION: Mild edema or pneumonitis [place] EXAMINATION: ONE XRAY VIEW OF THE CHEST 03/19/2020 5:58 pm COMPARISON: June 27, 2018 HISTORY: ORDERING SYSTEM PROVIDED HISTORY: dyspnea TECHNOLOGIST PROVIDED HISTORY: dyspnea FINDINGS: Mild edema. Heart and mediastinum normal. Bony thorax intact. [place] Mild edema or pneumonitis [place] Otheron 10-21-2019 No acute abnormalities seen in the left foot or left ankle [place] EXAMINATION: THREE XRAY VIEWS OF THE [...] medial malleolus most likely from old trauma. [place] [facility] Incoming Radiant Results From [employer] - 10/21/2019 4:26 PM EDT EXAMINATION: THREE [...] in the left foot or left ankle [place] Basic Metabolic Panel w/ Ref katrin to MGon 02-06-2019 Anion gap [Moles/Vol] 13 mmol/L 9 - 17 mmol/L [place] Bun/Cre Ratio 16 [place] Calcium [Mass/Vol] 8.4 mg/dL Low 8.6 - 10.4 mg/dL [place] Chloride [Moles/Vol] 99 mmol/L 98 - 107 mmol/L [place] CO2 [Moles/Vol] 23 mmol/L 20 - 31 mmol/L [place] Creatinine [Mass/Vol] 0.94 mg/dL 0.7 - 1.2 mg/dL [place] GFR >60 >60 mL/min [place] GFR Non- >60 >60 mL/min [place] Glucose [Mass/Vol] 130 mg/dL High 70 - 99 mg/dL [place], [place] Interpretation and review of laboratory results Abnormal [place] Potassium [Moles/Vol] 3.7 mmol/L 3.7 - 5.3 mmol/L [place] Sodium [Moles/Vol] 135 mmol/L 135 - 144 mmol/L [place] Urea nitrogen [Mass/Vol] 15 mg/dL 6 - 20 mg/dL [place] CBCon 02-06-2019 Erythrocyte distribution width (RBC) [Ratio] 12.5 % 11.8 - 14.4 % [place] Hematocrit (Bld) [Volume fraction] 45.4 % 40.7 - 50.3 % [place] Hemoglobin (Bld) [Mass/Vol] 15.1 g/dL 13 - 17 g/dL [place] MCH (RBC) [Entitic mass] 29.8 pg 25.2 - 33.5 pg [place] MCHC (RBC) [Mass/Vol] 33.3 g/dL 28.4 - 34.8 g/dL [place] MCV (RBC) [Entitic vol] 89.5 fL 82.6 - 102.9 fL [place] Platelet mean volume (Bld) [Entitic vol] 10.4 fL 8.1 - 13.5 fL [place] Platelets (Bld) [#/Vol] 198 10*3/uL [place] RBC (Bld) [#/Vol] 5.07 10*6/uL 4.21 - 5.77 m/uL [place] WBC (Bld) [#/Vol] 0.0 10*3/uL 0.0 per 100 WBC M [place] WBC (Bld) [#/Vol] 10.7 10*3/uL [place] Culture Stoolon 02-06-2019 Campylobacter PCR NEGATIVE: No Campylobacter spp. (jejuni or coli) DNA Detected NEGATIVE: No Campylobacter spp. (jejuni or coli) DNA Detecte [place] E Coli Enterotoxigenic PCR NEGATIVE: No Enterotoxigenic E. coli (ETEC) Heat-labile and heat-stable (LT/ST) DNA Detected NEGATIVE: No Enterotoxigenic E. coli (ETEC) Heat-labile and [place] Plesiomonas Shigelloides PCR Negative NEGATIVE: No Plesionomas shigelloides DNA Detected [place] Salmonella PCR Negative NEGATIVE: No Salmonella spp. DNA Detected [place] Shigatoxin Gene PCR Negative NEGATIVE : No Shiga toxin-producing gene(s) Detected [place] Shigella Sp PCR Negative NEGATIVE: No Shigella spp. / EIEC DNA Detected [place] Specimen Description .FECES [place] Vibrio PCR NEGATIVE: No Vibrio (V. vulnificus, V, parahaemolyticus and V. cholerae) DNA Detected NEGATIVE: No Vibrio (V. vulnificus, V, parahaemolyticus and [place] Yersinia Enterocolitica PCR Negative NEGATIVE: No Yersinia enterocolitica DNA Detected [place] Metabolic Panelon 02-06-2019 GFR/1.73 sq M predicted among non-blacks MDRD (S/P/Bld) [Vol rate/Area] [place], [place] Comment on above: Stage 1: Some [...] body mass. Additional eGFR calculator available at: http://www.Pitchbrite/multiple_crcl_2012.htm Microscopic Urinalysison Amorphous, UA NOT REPORTED None [place], [place] Bacteria, UA TRACE Abnormal None [place], [place] Casts UA NOT REPORTED /LPF [place] Crystals UA NOT REPORTED None /HPF [place] Epithelial Cells UA 0 TO 2 [place] Interpretation and review of laboratory results Abnormal [place] Mucus, UA TRACE Abnormal None [place] Other Observations UA NOT REPORTED NOT REQ. [place] RBC (U) [#/Vol] 0 TO 2 [place] Renal Epithelial, Urine NOT REPORTED 0 /HPF [place] Trichomonas, UA NOT REPORTED None [facility] [place] WBC, UA None [place] Yeast, UA NOT REPORTED None [place] - [place] Urinalysis Reflex to Culture on 02-06-2019 Bilirubin Urine Negative NEGATIVE [place] Color, UA YELLOW YELLOW [place] Glucose, Ur Negative NEGATIVE [place] Interpretation and review of laboratory results Abnormal [place] Ketones Ql (U) TRACE Abnormal NEGATIVE [place] Leukocyte esterase Test strip Ql (U) Negative NEGATIVE [place] Nitrite, Urine Negative NEGATIVE [place] pH, UA 5.5 [place] Protein (U) [Mass/Vol] TRACE Abnormal NEGATIVE [place] Specific [place], UA >1.030 High [place] Turbidity UA CLEAR CLEAR [place] Urinalysis Comments NOT REPORTED [place], [place] Urine Hgb 1+ Abnormal NEGATIVE [place] Urobilinogen, Urine Normal Normal [place] C DIFF TOXIN/ANTIGENon 02-05 C DIFF AG + TOXIN Negative NEGATIVE [place], [place] Comment on above: No C. difficile anti gen and Toxin Detected. Specimen Description .FECES [place] CBCon 02-05-2019 Erythrocyte distribution width (RBC) [Ratio] 12.0 % 11.8 - 14.4 % [place] Hematocrit (Bld) [Volume fraction] 49.7 % 40.7 - 50.3 % [place] Hemoglobin (Bld) [Mass/Vol] 17.2 g/dL High 13 - 17 g/dL [place] Interpretation and review of laboratory results Abnormal [place] MCH (RBC) [Entitic mass] 30.4 pg 25.2 - 33.5 pg [place] MCHC (RBC) [Mass/Vol] 34.6 g/dL 28.4 - 34.8 g/dL [place] MCV (RBC) [Entitic vol] 87.8 fL 82.6 - 102.9 fL [place] Platelet mean volume (Bld) [Entitic vol] 10.8 fL 8.1 - 13.5 fL [place] Platelets (Bld) [#/Vol] 233 10*3/uL [place] RBC (Bld) [#/Vol] 5.66 10*6/uL 4.21 - 5.77 m/uL [place] WBC (Bld) [#/Vol] 15.0 10*3/uL [place] WBC (Bld) [#/Vol] 0.0 10*3/uL 0.0 per 100 WBC [place] CT ABDOMEN PELVIS W IV CONTR AST Additional Contrast? Noneon 02-05-2019 [facility], [facility] Incoming Radiant Results From [employer]/Pacs - 02/05/2019 6:20 PM EST EXAMINATION: CT [...] pathologic adenopathy. Bones/Soft Tissues: Normal IMPRESSION: Ileus [place] EXAMINATION: CT OF THE ABDOMEN AND [...] is no pathologic adenopathy. Bones/Soft Tissues: Normal [place] Ileus [place] Comprehensive Metabolic Pane karan 02-05-2019 Albumin [Mass/Vol] 4.6 g/dL 3.5 - 5.2 g/dL [place] Albumin/Globulin [Mass ratio] 1.4 {ratio} [place] ALP [Catalytic activity/Vol] 88 U/L 40 - 129 U/L [place] ALT [Catalytic activity/Vol] 43 U/L High 5 - 41 U/L [place] Anion gap [Moles/Vol] 19 mmol/L High 9 - 17 mmol/L [place] AST [Catalytic activity/Vol] 23 U/L <40 [place] Bilirubin Ql (U) 1.37 mg/dL High 0.3 - 1.2 mg/dL [place], [place] Bun/Cre Ratio 16 [place] Calcium [Mass/Vol] 9.4 mg/dL 8.6 - 10.4 mg/dL [place] Chloride [Moles/Vol] 96 mmol/L Low 98 - 107 mmol/L [place] CO2 [Moles/Vol] 21 mmol/L 20 - 31 mmol/L [place] Creatinine [Mass/Vol] 0.9 mg/dL 0.7 - 1.2 mg/dL [place] GFR >60 >60 mL/min [place] GFR Non- >60 >60 mL/min [place] Glucose [Mass/Vol] 119 mg/dL High 70 - 99 mg/dL [place], [place] Interpretation and review of laboratory results Abnormal [place] Potassium [Moles/Vol] 4.2 mmol/L 3.7 - 5.3 mmol/L [place] Protein [Mass/Vol] 8.0 g/dL 6.4 - 8.3 g/dL [place], [place] Sodium [Moles/Vol] 136 mmol/L 135 - 144 mmol/L [place] Urea nitrogen [Mass/Vol] 14 mg/dL 6 - 20 mg/dL [place] Lactic Acid, Plasmaon 2018 Interpretation and review of laboratory results Abnormal [place] Lactate [Moles/Vol] 2.4 mmol/L High 0.5 - 2.2 mmol/L [place] Lactic Acid, Whole Blood NOT REPORTED 0.7 - 2.1 mmol/L [place] Lipaseon 02-05-2019 Lipase [Catalytic activity/Vol] 32 U/L 13 - 60 U/L [place] Metabolic Panelon 02-05-2019 GFR/1.73 sq M predicted among non-blacks MDRD (S/P/Bld) [Vol rate/Area] [place] Comment on above: Average GFR for 40-4 9 years old: 99 mL/min/1.73sq m Chronic Kidney Disease: <60 mL/min/1.73sq m Kidney failure: <15 mL/min/1.73sq m eGFR calculated using average adult body mass. Additional eGFR calculator available at: [email or web address] Stage 1: Some kidney damage normal GFR Stage 2: Mild kidney damage GFR 60-89 Stage 3: Moderate kidney damage GFR 30-59 Stage 4: Severe kidney damage GFR 15-29 Stage 5: Severe kidney damage GFR <15 ESRD - chronic treatment by dialysis or transplant Vital Signs Date Time Vital Sign Value Performing Clinician Rochelle cerrato 10-11-2022 15:03-0400 Diastolic blood pressure 81 mm[Hg] PHYSICIAN NO [facility] 10-11-2022 15:03-0400 Heart rate 75 /min PHYSICIAN NO [facility] 10-11-2022 15:03-0400 Respiratory rate 20 /min PHYSICIAN NO [facility] 10-11-2022 15:03-0400 SaO2% (BldA) [Mass fraction] 97 % PHYSICIAN NO [facility] 10-11-2022 15:03-0400 Systolic blood pressure 146 mm[Hg] PHYSICIAN NO [facility] 10-11-2022 12:17-0400 Body temperature 98.3 [degF] PHYSICIAN NO [facility] 10-11-2022 12:12-0400 Body height 175.26 cm PHYSICIAN NO [facility] 10-11-2022 12:12-0400 Body weight 128.6 kg PHYSICIAN NO [facility] 08-18-2022 12:04-0400 Body temperature 97.9 [degF] PHYSICIAN NO [facility] 08-18-2022 11:58-0400 Body height 177.8 cm PHYSICIAN NO [facility] 08-18-2022 11:58-0400 Body weight 129.36 kg PHYSICIAN NO [facility] 08-18-2022 11:58-0400 Diastolic blood pressure 115 mm[Hg] PHYSICIAN NO [facility] 08-18-2022 11:58-0400 Heart rate 107 /min PHYSICIAN NO [facility] 08-18-2022 11:58-0400 Respiratory rate 20 /min PHYSICIAN NO [facility] 08-18-2022 11:58-0400 SaO2% (BldA) [Mass fraction] 97 % PHYSICIAN NO [facility] 08-18-2022 11:58-0400 Systolic blood pressure 159 mm[Hg] PHYSICIAN NO [facility] 12-19-2021 18:32-0400 Body temperature 98.1 [degF] PHYSICIAN NO [facility] 12-19-2021 18:32-0400 Diastolic blood pressure 105 mm[Hg] PHYSICIAN NO [facility] 12-19-2021 18:32-0400 Heart rate 106 /min PHYSICIAN NO [facility] 12-19-2021 18:32-0400 Respiratory rate 20 /min PHYSICIAN NO [facility] 12-19-2021 18:32-0400 SaO2% (BldA) [Mass fraction] 96 % PHYSICIAN NO [facility] 12-19-2021 18:32-0400 Systolic blood pressure 153 mm[Hg] PHYSICIAN NO [facility] 12-19-2021 17:44-0400 Body height 177.8 cm PHYSICIAN NO [facility] 12-19-2021 17:44-0400 Body weight 134.55 kg PHYSICIAN NO [facility] 12-17-2021 09:40-0400 Body height 177.8 cm PHYSICIAN NO [facility] 12-17-2021 09:40-0400 Body temperature 98.1 [degF] PHYSICIAN NO [facility] 12-17-2021 09:40-0400 Body weight 134 kg PHYSICIAN NO [facility] 12-17-2021 09:40-0400 Diastolic blood pressure 108 mm[Hg] PHYSICIAN NO [facility] 12-17-2021 09:40-0400 Heart rate 114 /min PHYSICIAN NO [facility] 12-17-2021 09:40-0400 Respiratory rate 20 /min PHYSICIAN NO [facility] 12-17-2021 09:40-0400 SaO2% (BldA) [Mass fraction] 98 % PHYSICIAN NO [facility] 12-17-2021 09:40-0400 Systolic blood pressure 171 mm[Hg] PHYSICIAN NO [facility] 12-02-2021 14:50-0400 Body height 177.8 cm PHYSICIAN NO [facility] 12-02-2021 14:50-0400 Body temperature 98.6 [degF] PHYSICIAN NO [facility] 12-02-2021 14:50-0400 Body weight 133.2 kg PHYSICIAN NO [facility] 12-02-2021 14:50-0400 Diastolic blood pressure 102 mm[Hg] PHYSICIAN NO [facility] 12-02-2021 14:50-0400 Heart rate 117 /min PHYSICIAN NO [facility] 12-02-2021 14:50-0400 Respiratory rate 18 /min PHYSICIAN NO [facility] 12-02-2021 14:50-0400 SaO2% (BldA) [Mass fraction] 98 % PHYSICIAN NO [facility] 12-02-2021 14:50-0400 Systolic blood pressure 174 mm[Hg] PHYSICIAN NO [facility] 06-08-2021 14:28-0400 Heart rate 117 /min Fatoumata Sanchez APRN - RECORDS MANAGEMENT CLERK Work Phone: [facility] 06-08-2021 14:28-0400 SaO2% (BldA) [Mass fraction] 95 % Fatoumata Sanchez APRN - RECORDS MANAGEMENT CLERK Work Phone: [employer] [facility] 06-08-2021 14:22-0400 Body height 177.8 cm Fatoumata Sanchez APRN - RECORDS MANAGEMENT CLERK Work Phone: [facility] 06-08-2021 14:22-0400 Body mass index (BMI) [Ratio] 44.77 kg/m2 Fatoumata Sanchez APRN - RECORDS MANAGEMENT CLERK Work Phone: [facility] 06-08-2021 14:22-0400 Body temperature 98.1 [degF] Fatoumata Sanchez APRN - RECORDS MANAGEMENT CLERK Work Phone: [employer] [facility] 06-08-2021 14:22-0400 Body weight 141.52 kg Fatoumata Sanchez APRN - RECORDS MANAGEMENT CLERK Work Phone: [employer] [facility] 06-08-2021 14:22-0400 Diastolic blood pressure 120 mm[Hg] Fatoumata Sanchez APRN - RECORDS MANAGEMENT CLERK Work Phone: [employer] [facility] 06-08-2021 14:22-0400 Respiratory rate 18 /min Fatoumata Sanchez APRN - RECORDS MANAGEMENT CLERK Work Phone: [employer] [facility] 06-08-2021 14:22-0400 Systolic blood pressure 170 mm[Hg] Fatoumata Sanchez APRN - RECORDS MANAGEMENT CLERK Work Phone: [employer] [facility] 03-19-2020 23:45-0500 BP Diastolic 101 mm[Hg] [employer] [place] , [place] 03-19-2020 23:45-0500 BP Systolic 148 mm[Hg] [employer] [place] , [place] 03-19-2020 23:45-0500 Pulse (Heart Rate) 117 /min [facility], [place] 03-19-2020 23:45-0500 Pulse Oximetry 94 % [facility] , [place] 03-19-2020 23:45-0500 Respiratory Rate 23 /min [facility] [place] 03-19-2020 19:57-0500 Body Temperature 99.9 [degF] [facility] [place] 03-19-2020 17:38-0500 BMI (Body Mass Index) 45.92 kg/m2 [facility], [place] 03-19-2020 17:38-0500 Body weight 145.15 kg [facility] , [place] 03-19-2020 17:38-0500 Height 177.8 cm [facility] , [place] 10-21-2019 17:46-0400 BP Diastolic 103 mm[Hg] [facility] , [place] 10-21-2019 17:46-0400 BP Systolic 163 mm[Hg] [facility] , [place] 10-21-2019 17:37-0400 Pulse (Heart Rate) 109 /min [facility] 10-21-2019 17:37-0400 Respiratory Rate 18 /min [facility], [place] 10-21-2019 16:02-0400 BMI (Body Mass Index) 44.3 kg/m2 [facility], [place] 10-21-2019 16:02-0400 Body Temperature 97 [degF] [facility], [place] 10-21-2019 16:02-0400 Body weight 136.08 kg [facility] , [place] 10-21-2019 16:02-0400 Pulse Oximetry 96 % [facility] , [place] 02-07-2019 08:18-0500 Body Temperature 97.7 [degF] Dat Jean Baptiste [facility] [place] 02-07-2019 08:18-0500 BP Diastolic 102 mm[Hg] Dat Jean Baptiste [facility] , [place] 02-07-2019 08:18-0500 BP Systolic 132 mm[Hg] Dat Jean Baptiste [facility] , [place] 02-07-2019 08:18-0500 Pulse (Heart Rate) 76 /min [facility] [place], [place] 02-07-2019 08:18-0500 Pulse Oximetry 96 % [facility] [place] , [place] 02-07-2019 08:18-0500 Respiratory Rate 16 /min [facility], [place] 02-07-2019 04:51-0500 BMI (Body Mass Index) 42.06 kg/m2 [facility] [place] 02-07-2019 04:51-0500 Body weight 129.18 kg [facility] , [place] 02-06-2019 08:10-0500 Height 175.3 cm [facility] , [place] Encounters Encounter Date Encounter Type Care Provider Facility Start: 07-04-2023 End: 07-04-2023 Emergency department patient visit [facility] Start: 11-17-2022 End: 11-17-2022 ambulatory [facility] Start: 10-31-2022 End: 10-31-2022 ambulatory AB [facility] Start: 10-11-2022 End: 10-11-2022 Emergency department patient visit PHYSICIAN NO [facility] Work Phone: Start: 08-18-2022 End: 08-18-2022 Emergency department patient visit PHYSICIAN NO [facility] Work Phone: Start: 05-15-2022 End: 05-16-[address] NONE LISTED REQUEST Facility:[facility] Start: 05-11-2022 End: 05-11-[address] NONE LISTED REQUEST Facility:[facility] Start: 01-21-2022 End: 01-21-2022 ambulatory PHYSICIAN NO [facility] Work Phone: Start: 01-21-2022 End: 01-21-2022 Discharged Recurring PHYSICIAN NO [facility] [address] Start: 12-19-2021 End: 12-19-2021 Emergency department patient visit PHYSICIAN NO [facility] Start: 12-17-2021 End: 12-17-2021 Emergency department patient visit PHYSICIAN NO [facility] Start: 12-02-2021 End: 12-02-2021 Emergency department patient visit PHYSICIAN NO [facility] Start: 06-08-2021 End: 06-08-2021 Emergency department patient visit Fatoumata Sanchez PREPARING BOX TENDER - RECORDS MANAGEMENT CLERK Work Phone: [facility] Comment on above: Enteritis (Primary D x) Start: 03-19-2020 End: 03-20-2020 Emergency department patient visit [facility] Comment on above: COVID-19 (Primary Dx ) Start: 10-21-2019 End: 10-21-2019 Emergency department patient visit [facility] Comment on above: Left Achilles tendin itis (Primary Dx) Start: 02-05-2019 End: 02-07-2019 Evaluation and management of inpatient Dat Jean Baptiste Work Phone: [facility] Comment on above: Ileus (HCC) [...] abdomen & pelvis w/contrast material Fatoumata Sanchez PREPARING BOX TENDER - RECORDS MANAGEMENT CLERK Work Phone: Start: 06-08-2021 Comprehensive metabo lic panel Fatoumata Sanchez PREPARING BOX TENDER - RECORDS MANAGEMENT CLERK Work Phone: Start: 03-19-2020 Ct thorax w/contrast material Arabella Blandon Work Phone: Start: 03-19-2020 [facility] Work Phone: Start: 03-19-2020 [facility]adi[facility]oo influenza [facility] Work Phone: Start: 03-19-2020 Assay of [...] Phone: Start: 02-06-2019 Urinalysis microscop ic only [employer] Work Phone: Start: 02-06-2019 Urnls dip stick/tabl et rgnt auto w/o microscopy [employer] Work Phone: Start: 02-05-2019 Cul bact stool aerob ic isol salmonella&shigell [employer] Work Phone: Start: 02-05-2019 Toxin/antitoxin assa y tissue culture [employer] Work Phone: Start: 02-05-2019 Ct abdomen & pelvis w/contrast material [employer] Work Phone: Start: 02-05-2019 Assay of lactate [employer] Work Phone: Start: 02-05-2019 Assay of lipase [employer] Work Phone: Start: 02-05-2019 Blood count complete automated [employer] Work Phone: Start: 02-05-2019 Comprehensive metabo lic panel [employer] Phone: SARS Antigen (LFIA) PHYSICIA N NO FAMILY Plan of Treatment Date Care Activity Detail Author Start: 06-08-2022 Creatinine measurement Creatinine mo [facility] Start: 06-08-2022 Potassium monitoring Potassium monit [facility] Start: 03-19-2021 Creatinine measurement Creatinine mo [place] Start: 03-19-2021 Potassium monitoring Potassium monit [place], [place] Start: 11-11-2020 Influenza vaccination Flu vaccine (# 1) [facility] Start: 02-07-2020 Creatinine measurement Creatinine mo [place], [place] Start: 02-07-2020 Potassium monitoring Potassium monit [place] Start: 11-12-2019 Influenza vaccination Flu vaccine (# 1) [place] Start: 06-28-2019 Creatinine monitoring Creatinine mon [place] Start: 06-28-2019 Potassium monitoring Potassium monit [place] Start: 11-11-2018 Influenza vaccination Flu vaccine (# 1) [place] Start: 2018 Diabetes screen Diabetes screen [place], [place] Start: 2018 Lipid panel Lipid screen [facility] Start: 2018 Lipid screen Lipid screen [place], [place] Start: 2013 Diabetes screen Diabetes screen [facility] Start: 1997 DTaP/Tdap/Td vaccine (1 - Tdap) DTaP/Tdap/Td vaccine (1 - Tdap) [facility] Start: 1993 HIV screen HIV screen [place], [place] Start: 1993 HIV screening HIV screen [facility] Start: 1990 Depression Screen Depression Screen [facility] Start: 1989 DTaP/Tdap/Td vaccine (1 - Tdap) DTaP/Tdap/Td vaccine (1 - Tdap) [place] Start: 1983 COVID-19 Vaccine (1) COVID-19 Vaccin e (1) [facility] Start: 1978 Hepatitis C screening Hepatitis C sc reen [facility] End: 03-19-2020 Culture, Blood 1 Culture, Blood 1 Microbiology STAT One Time for 1 Occurrences starting 03/19/2020 until 03/19/2020 [facility] Comment on above: One Time for 1 Occur rences starting 03/19/2020 until 03/19/2020 Culture, Blood 1 Culture, Blood 1 Microbiology STAT 03/19/2020 6:00 PM EST [facility] 12 Lead EKG 12 Lead ECG STAT 03/19/2020 5:53 PM EST [facility] Initiate Oxygen Ther apy Protocol Initiate Oxygen Therapy Protocol Respiratory Care Routine Daily until discontinued starting 02/05/2019 [facility] Comment on above: Daily until disconti nued starting 02/05/2019 Nasal Cannula Oxygen Nasal Cannu la Oxygen Respiratory Care STAT Daily until discontinued starting 03/19/2020 [facility] Comment on above: Daily until disconti nued starting 03/19/2020 Patient Education [facility] Work Phone: Patient referral [facility] Work Phone: End: 02-05-2019 Pulse Oximetry Spot Check Pulse Oximetry Spot Check Respiratory Care Routine One Time for 1 Occurrences starting 02/05/2019 until 02/05/2019 [facility] [place] Comment on above: One Time for 1 Occur rences starting 02/05/2019 until 02/05/2019 End: 06-08-2021 Urinalysis with Microscopic Urinalysis with Microscopic Lab STAT One Time for 1 Occurrences starting 06/08/2021 until 06/08/2021 [facility] Work Phone: Comment on above: One Time for 1 Occur rences starting 06/08/2021 until 06/08/2021 Payers Date Payer Category Payer Unknown [id number] 1980 Unknown [id number] 1961 Self-pay 1961 Worker's Compensation [id number] Unknown [id number] Social History Date Type Detail Facility Start: 10-21-2019 End: 10-11-2022 Tobacco smoking status NHIS [place] Start: 04-05-2015 End: 10-21-2019 Tobacco use and exposure Never used [place] Start: 10-21-2019 End: 06-08-2021 Alcohol intake Current non-drinker of alcohol (finding) [place] Start: 1980 Sex Assigned At Not on file M [place], [place] Start: 05-29-2021 End: 06-08-2021 Exposure to SARS-CoV-2 (event) Not sure [place] Start: 12-02-2021 End: 12-19-2021 Tobacco smoking status NHIS Never smoked tobacco (finding) [facility] Start: 1980 Sex Assigned At Male F [facility] Clinical Notes 06-08-2021 to 02-01-2023 InstructionsAttachments Note Date & Type Note Facility 02-01-2023 Note This report has been cancelled. [facility] 02-01-2023 Note This report has been cancelled. [facility] 11-17-2022 Note Cardiovascular Labor atory Report FINAL [...] be checked in a week Follow-up with OR Cardiology in the [facility] in the next 2 to 3 [...] left radial artery was obtained. A 6 Vietnamese glide sheath was inserted without difficulty. Bilateral [...] INDICATIONS: Abnormal stress test, reduced ejection fraction [facility] 11-17-2022 Note Patient: Lawson stark Procedure Information Date/Time: 11/17/22 1030 Procedure: Coronary angiography (Bilateral) Location: [facility] LAUNDRY SUPERINTENDENT 3 / [facility] (Cath) Providers: Rafat Garcia MD [...] consented to blood products. Additional Equipment Requests [facility] 10-31-2022 Note [facility] Cardiology Clinic Note Chief Complaint: Patient here for follow up [facility] for chest pain. He was seen as [...] pending the above Rafat Garcia MD, MPH, [facility], [facility], [facility] Interventional Cardiology Pager Email: [email or web address] 06-08-2021 Hospital Discharge instructions Fatoumata Sanchez, ARSALAN - RECORDS MANAGEMENT CLERK - 06/08/2021 Increase your fluid intake. Take Bentyl as prescribed. Follow-up with PCP for reevaluation in the next couple of days. Avoid dairy, spicy and fatty foods for the next week. Return here for increased pain, fever, difficulty breathing, vomiting or new or worsening signs or symptoms. The following attachments cannot be sent through Care Everywhere.Gastroenteritis (Sri Lankan)documented in this encounter [facility] Work Phone: Evaluation note Diagnosis Enteritis- Primary Other and unspecified noninfectious gastroenteritis and colitis documented in this encounter [facility] Work Phone: evaluation noteNo assessment information available [facility] Work Phone: Hospital Discharge instructions Additional Instructions Rest ice elevate Use the wrist splint for comfort Take ibuprofen every 6 hours for discomfort Follow-up with either [facility] or [facility] Follow-up with [facility] especially if not getting better [facility] Work Phone: Hospital Discharge instructions Additional Instructions Return for new or worsening symptoms [facility] Work Phone: Hospital Discharge instructions Additional Instructions Please return to emergency department for any new or worrisome symptoms including any weakness, numbness, headache, vision changes. Follow-up with your family physician as soon as possible.[facility] Work Phone: Discharge Instructions * Attachments The following attachments cannot be sent through Care Everywhere. * Tendon Injury (Tendinopathy) (Sri Lankan) documented in this encounter* Instructions* Lobito Sidhu [...] Everywhere. * Coronavirus Disease (COVID-19): General Info (Sri Lankan) * Coronavirus Disease (COVID-19): Isolation ([place]ankan) documented in this encounter* Instructions* Bambi Segal [...] Where can you learn more? Go to [email or web address] and sign in to your [employer] account. Enter M933 in the Search Health Information box to learn more about [employer] About [employer]. If you do not have an account, please click on the Sign Up Now link. Current as of: January 17, 2018 Content Version: [id number] [employer]. Care instructions adapted under license by [employer] [facility]. If youhave questions about a medical condition or this instruction, always ask your healthcare professional. [employer] disclaims any warranty or liability for your use of this information. 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 Advance Directives and Living Will Power of Workers' Compensation Commissioner Latest Code Status on File Code Status Date Activated Date Inactivated Comments Full Code 02/05/2019 9:40 PM 02/07/2019 3:36 PM Full Code 06/22/2016 5:58 AM 06/22/2016 7:53 PM Documents on File Type Date Recorded 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 Internal Medicine Discharge Summary Patient ID: Lawson Lopez [id number] Admission date: 02/05/2019 Discharge date: 02/07/2019 [...] no PCP but will be referred to [facility]. Discharge Exam: GEN: Awake, alert and oriented [...] Discharge Medications: Lawson Lopez Home Medication Instructions [id number] Printed on:02/07/19 1147 Medication Information amLODIPine (NORVASC) [...] care plan Coordination with Case Management and/or Food Server Coordination of care with Consultants (if applicable) [...] of care. To: __Dr. Jean Baptiste From: [facility] Sender:_KSchwochowRN Phone Number:_[phone] This request is: Urgent - No Information [...] you. Signature Date Time * Jamir Reed, LINE TENDER FLAKEBOARD, SANDING MACHINE OPERATOR OR TENDER - 02/06/2019 10:51 AM EST Social Work intial Assessment/Discharge Plan Diagnosis: Abdominal pain with Lleus Met with: Patient PCP: None. Chose [facility] Payment Source: Private. No insurance. Advance Directives: None Code Status: Full Mental Status: Alert and oriented Living Arrangement: Patient lives at home in [place] with a roommate Support Systems: Roommate and [...] Needs/Discharge Plan: Patient will return home to [place] where he resides with a roommate. He [...] 5. Fluid Accumulation-No significant fluid accumulation, 6. Hat Block Maker Strength-Not measured Nutrition Risk Level: Moderate Nutrient Needs: Estimated Daily Total Kcal: 6166-6820(12-17) Estimated Daily Protein (g): 95-109(1.3-1.5) Estimated Daily [...] Weight Change: , 2% loss from 290# [place]ell Body Wt: 160 lb (72.6 kg), % [place]ell Body 178% BMI Classification: BMI > or [...] Patient/Family Education, Monitor Bowel Function Contact Number: [phone] Marija Horta RN - 02/06/2019 4:31 AM [...] oriented to room, pr watching tv when television reporter left room documented in this encounter Chief [...] FAMILY Primary Care Provider Active Jenelle Judge PRINCIPAL DATA ARCHITECT- Emergency Provider Active Team Status: Inactive Member Role Status Dates PHYSICIAN NO FAMILY Primary Care Provider Active Elian Elizondo APRN Emergency Provider Active Team Status: Active Member Role Status Dates PHYSICIAN NO FAMILY Primary Care Provider Active Team Status: Active Member Role Status Dates Isabel Rodas CHIEF CONTRACT OFFICER-C Primary Care Provider Active Team Status: Inactive Member Role Status Dates PHYSICIAN NO FAMILY Primary Care Provider Active Kris Narvaez DO Emergency Provider Active Team Status: Inactive Member Role Status Dates Isabel Rodas , CHIEF CONTRACT OFFICER-C Primary Care Provider Active Socorro Osullivan MD [...] DATE CREATED AUTHOR AUTHOR'S ORGANIZ ATION 03/04/2023 [facility] DATE CREATED AUTHOR AUTHOR'S ORGANIZ ATION 07/06/2023 [facility] DATE CREATED AUTHOR AUTHOR'S ORGANIZ ATION 09/01/2023 [facility] FOR RECORDS PERTAINING TO PATIENTS [...] BE BASED ON THE PRIMARY CLINICAL RECORDS. [facility] [employer] [facility]. provides no warranty or guarantee of the accuracy or completeness of information in this document.
--- NOTE | 2024-01-30 07:33 | XR_ITS ---
The [address] [address] Patient Name: LAWSON LOPEZ MRN: [id number] date: 1980 Sex: M Assigned Patient Location: ER Current Patient Location: ER Accession/Order Number: [id number] Exam Date: 01/30/2024 07:41 Report Date: 01/30/2024 08:00 At the request of: PEDRO CHERRY Procedure: XR cervical spine 2-3V EXAMINATION: XR cervical spine 2-3V HISTORY: Atraumatic pain COMPARISON: XR cervical spine 08/06/2009 FINDINGS: BONES: Reversal normal lordotic curvature extending from C2 to C5. Mild degenerative facet arthropathy C3-4 and C4-5. No fracture, spondylolisthesis, bone lesion. DISC SPACES: Mild narrowing C6-7. PARASPINOUS: Negative. No paraspinous abnormality is seen. OTHER: Negative. XR/XR cervical spine 2-3V IMPRESSION: 1. Mild degenerative changes of cervical spine; new compared to 2009. Electronically authenticated by: DUARTE JACKSON Date: 01/30/2024 08:00
--- NOTE | 2024-01-30 07:33 | XR_ITS ---
The [address] [address] Patient Name: LAWSON LOPEZ MRN: [id number] date: 1980 Sex: M Assigned Patient Location: ER Current Patient Location: ED.MAIN Accession/Order Number: [id number] Exam Date: 01/30/2024 07:41 Report Date: 01/30/2024 08:02 At the request of: PEDRO CHERRY Procedure: XR shoulder LT min 2V PROCEDURE: XR shoulder LT min 2V HISTORY: Atraumatic pain COMPARISON: XR shoulder left 07/20/2023 FINDINGS: BONES:Narrowing of the acromioclavicular joint and small undersurface osteophytes. Unremarkable humeral head and glenoid. SOFT TISSUES:No visible soft tissue swelling. EFFUSION:None visible. OTHER: Negative. XR/XR shoulder LT min 2V IMPRESSION: 1. Mild degenerative changes of the acromioclavicular joint which may predispose to rotator cuff injury. Electronically authenticated by: DUARTE JACKSON Date: 01/30/2024 08:02
--- NOTE | 2024-01-30 07:36 | ED_ITS ---
HPI HPI - Extremity Injury (Upper) General Chief Complaint: Extremity Injury, Upper Stated Complaint: recheck Time Seen by Provider: 01/30/24 07:19 Source: patient Limitations: no limitations History of Present Illness HPI narrative: 44-year-old male presents to the emergency department for a chief complaint of pain in his left shoulder. He was seen here last week for the same issue and it had already been present for several days. He gives no history of any specific injury but he was recently moving and packing boxes and lifting them. He is right-handed. No symptoms in his right arm. It does not hurt much at all if he does not move it but it hurts much worse if he moves it. Denies chest pain. Related Data Home Medications ?Medication ?Instructions ?Recorded ?Confirmed ketorolac 10 mg tablet 10 mg PO Q8H PRN pain 01/16/23 01/30/24 orphenadrine citrate 100 mg 100 mg PO BID PRN pain 01/16/23 01/30/24 tablet,extended release Previous Rx's ?Medication ?Instructions ?Recorded amlodipine 10 mg tablet 10 mg PO DAILY #30 tabs 09/06/22 aspirin 81 mg chewable tablet 81 mg PO DAILY #30 tabs 09/06/22 atorvastatin 40 mg tablet (Lipitor) 40 mg PO DAILY #30 tabs 09/06/22 metoprolol tartrate 50 mg tablet 25 mg (1/2 x 50 mg) PO BID #30 tabs 09/06/22 (Lopressor) ibuprofen 800 mg tablet 800 mg PO Q8H PRN pain #20 tabs 12/28/22 dafjezmvzjlegjy-izlcvempyiylebg-OO 5 ml PO Q4H PRN cold symptoms #118 04/07/23 2 mg-30 mg-10 mg/5 mL oral syrup mL (Bromfed DM) doxycycline monohydrate 100 mg 100 mg PO BID 7 days #14 caps 04/07/23 capsule ondansetron 4 mg disintegrating 4 mg PO Q8H PRN nausea and 04/07/23 tablet vomiting 4 days #16 tabs ibuprofen 800 mg tablet 800 mg PO Q8H PRN pain #20 tabs 07/20/23 pantoprazole 40 mg tablet,delayed 40 mg PO DAILY 6 weeks #42 tabs 09/25/23 release (Protonix) methocarbamol 500 mg tablet 500 mg PO Q8H PRN muscle pain #10 11/15/24 tabs etodolac 400 mg tablet 400 mg PO Q8H PRN pain #20 tabs 01/30/24 Allergies Allergy/AdvReac Type Severity Reaction Status Date / Time amoxicillin Allergy Verified 08/05/23 21:09 prednisone Allergy Verified 08/05/23 21:09 narcotic AdvReac Severe Uncoded 08/05/23 21:09 Opioid HPI Opioid Management Most Recent Pain and Opioid Data: Last Pain Scale 8 01/30/24 07:52 01/30/24 Review of Systems ROS Narrative A ten point review of systems is negative except as noted above. [facility] Medical History (Updated 01/30/24 @ 08:18 by Ashok Jean MD) Syncope and collapse ?R55 - Syncope and collapse (ICD-10) Tobacco abuse ?Z72.0 - Tobacco use (ICD-10) Dyslipidemia ?E78.5 - Hyperlipidemia, unspecified (ICD-10) HTN (hypertension) ?I10 - Essential (primary) hypertension (ICD-10) Social History (Updated 09/05/22 @ 12:28 by STEVEN FLORES) Smoking status: Former smoker Non-prescribed substance use: former substance user Non-prescribed substance use details: cocaine Little interest or pleasure in doing things: not at all Feeling down, depressed, or hopeless: not at all Exam Narrative Exam Narrative: Nurses note and vital signs reviewed and patient is not hypoxic. General: The patient appears in no apparent distress. Skin: Warm, dry, no pallor noted. There is no rash noted. Head: Normocephalic, atraumatic Eye: Normal conjunctiva, no drainage Ears, Nose, Mouth, and Throat: oral mucosa is moist. Nares patent. Cardiovascular: Regular Rate and Rhythm Respiratory: Patient is in no distress, no accessory muscle use, lungs are clear to auscultation, no wheezing, rales or rhonchi Back: non-tender GI: Nontender Musculoskeletal: The left shoulder has no deformity. He has no palpable masses in his neck and there is no bruising or rash. Shoulder has good range of motion though range of motion causes discomfort. Radial pulse 2+ and hand is not swollen. Neurological: A&O, normal speech Psychiatric: Cooperative Constitutional Vital Signs, click to edit/add: Last Vital Signs Temp 98.6 F 01/30/24 07:19 Pulse 81 01/30/24 07:19 Resp 18 01/30/24 07:19 BP 180/120 H 01/30/24 07:50 Pulse Ox 96 01/30/24 07:19 Course Vital Signs Vital signs: Vital Signs Temperature 98.6 F 01/30/24 07:19 Pulse Rate 81 01/30/24 07:19 Respiratory Rate 18 01/30/24 07:19 Pulse Oximetry 96 01/30/24 07:19 Temperature 98.6 F 01/30/24 07:19 Pulse Rate 81 01/30/24 07:19 Respiratory Rate 18 01/30/24 07:19 Blood Pressure 180/120 H 01/30/24 07:50 Pulse Oximetry 96 01/30/24 07:19 MDM - Extremity Injury (Upper) MDM Narrative Medical decision making narrative: X-ray shows some degenerative changes and these findings were discussed with the patient. Appointment made to see Dr. Matos on February 04 at 11 AM. Treatment diagnosis and follow-up were discussed with the patient. Differential Diagnosis Differential diagnosis: Likely other (Arthritis, shoulder strain, rotator cuff injury) Imaging Data C-spine and shoulder x-ray: Radiologist's impression: ITS Impressions Cervical Spine X-Ray 01/30/24 07:33 IMPRESSION: 1. Mild degenerative changes of cervical spine; new compared to 2009. Electronically authenticated by: CHANDU JACKSON Date: 01/30/2024 08:00 Shoulder X-Ray 01/30/24 07:33 IMPRESSION: 1. Mild degenerative changes of the acromioclavicular joint which may predispose to rotator cuff injury. Electronically authenticated by: CHANDU JACKSON Date: 01/30/2024 08:02 ECG Data Attestation: I personally reviewed and interpreted this ECG as follows: (EKG on my interpretation shows normal sinus rhythm without acute change) Discharge Plan Discharge Chief Complaint: Extremity Injury, Upper Clinical Impression: Acute pain of left shoulder Patient Disposition: Home, Self-Care Time of Disposition Decision: 08:18 Condition: Good Mode of Transportation: Private Vehicle Prescriptions / Home Meds: New etodolac 400 mg tablet 400 mg PO Q8H PRN (Reason: pain) Qty: 20 0RF No Action aspirin 81 mg tablet,chewable 81 mg PO DAILY Qty: 30 0RF amlodipine 10 mg tablet 10 mg PO DAILY Qty: 30 0RF metoprolol tartrate [Lopressor] 50 mg tablet 25 mg PO BID Qty: 30 0RF atorvastatin [Lipitor] 40 mg tablet 40 mg PO DAILY Qty: 30 0RF ibuprofen 800 mg tablet 800 mg PO Q8H PRN (Reason: pain) Qty: 20 0RF ketorolac 10 mg tablet 10 mg PO Q8H PRN (Reason: pain) orphenadrine citrate 100 mg tablet extended release 100 mg PO BID PRN (Reason: pain) datpewykggzyuov-nkasuhdbq-FM [Bromfed DM] 2-30-10 mg/5 mL syrup 5 ml PO Q4H PRN (Reason: cold symptoms) Qty: 118 0RF doxycycline monohydrate 100 mg capsule 100 mg PO BID 7 Days Qty: 14 0RF ondansetron 4 mg tablet,disintegrating 4 mg PO Q8H PRN (Reason: nausea and vomiting) 4 Days Qty: 16 0RF pantoprazole [Protonix] 40 mg tablet,delayed release (DR/EC) 40 mg PO DAILY 42 Days Qty: 42 0RF methocarbamol 500 mg tablet 500 mg PO Q8H PRN (Reason: muscle pain) Qty: 10 0RF ibuprofen 800 mg tablet 800 mg PO Q8H PRN (Reason: pain) Qty: 20 0RF Print Language: Lithuanian Instructions: Shoulder Pain (ED) Referrals: Chandu Matos MD [Physician] - 02/05/24 11:00 am ELIAS DUKES [Primary Care Provider] - 1 week
--- NOTE | 2024-01-30 07:47 | ECG_ITS ---
The [facility] Test Date: 2024-01-30 Pat Name: LAWSON LOPEZ Department: Room: - Gender: Male [employer]: : 1980 Requested By: Isabel Rodas Order Number: [id number] Reading MD: DAILY BRINK Measurements Intervals [place] Rate: 74 P: 19 [place]: 146 QRS: -28 QRSD: 84 T: -30 QT: 362 QTc: 389 Interpretive Statements 1100 Sinus rhythm 7202 Moderate left axis deviation 8003 Consistent with pulmonary disease 8102 Low QRS voltage in chest leads 9150 abnormal ECG Compared to ECG 09/25/2023 11:20:56 Left-axis deviation now present Electronically Signed On 01-30-2024 23:09:05 EST by DAILY BRINK
[2024-01-30 07:50] VITALS: BP 180/120
[2024-01-30 08:29] VITALS: BP 178/116; PULSE 80; O2SAT 98
== END 2024-01-30 08:31 | disposition home or self-care (01) ==
PROVIDERS: Emergency Provider Emergency Medicine; PCP Nurse Practitioner
DX: M25.512 Pain in left shoulder (principal); Z87.891 Personal history of nicotine dependence
CPT/HCPCS: 72040; 73030; 93005; 99284

== ENCOUNTER 2024-02-12 22:08 | Emergency (ER) | payer OTHER, SELFPAY ==
--- OUTSIDE RECORDS SUMMARY | 2024-02-12 22:14 | XMS_ITS | CCD ---
Author Organization [facility] Care Team Providers Care Biological Technical Officer Name Role Phone Unavailable Primary Care Provider Unavailabl e Carina Hernandez Primary Care Provider Unavailable Primary Care Provider Unavailabl e NO FAMILY, PHYSICIAN Primary Care Provider Unava ARSALAN Kamara Emergency Provider Alfie [facility] Jenelle E Emergency Provider MEENAKSHI Schmidt Emergency Provider NO FAMILY, PHYSICIAN Primary Care Provider Unava ilapolinar Elizondo APRN Elian Emergency Provider [phone] [facility] Jenelle E Emergency Provider MEENAKSHI Schmidt [...] Unava ilable DO Kris Narvaez Emergency Provider [phone] MARIEL Rodas Primary Care Provider MD Socorro Osullivan Emergency Provider [phone] [place] Attending Unavailable [place] Admitting Unavailable [place], [facility]AB Attending Unavailable [place], E[facility]AB Referring Unavailable Isabel Rodas Primary Care Unavailable Socorro Osullivan Attending Unavailable Socorro Osullivan Admitting Unavailable Allergies Allergy Classification Reported Allergen(s) Allergy Type Date of Onset Reaction(s) Facility (10 sources) Amoxicillin; Translations: [AMOXICILLIN] Drug Allergy 6 Unknown Reaction [place], [place] (5 sources) fentaNYL; Translations: [FENTANYL] Drug Allergy 9 [place], [place] (10 sources) predniSONE; Translations: [PREDNISONE] Drug Allergy 6 Other (See Comments) [place], [place] (1 source) Amoxicillin Drug Allergy 3 [facility] Repository (1 source) predniSONE Drug Allergy 3 [facility] Repository (1 source) amLODIPine; Translations: [AMLODIPINE] Drug Allergy 3 [facility] Rep[facility] (1 source) Amoxicillin Drug Allergy 3 [facility] Repository (1 source) predniSONE Drug Allergy 3 [facility] Rep[facility] Medications Current Medications Medication Drug [...] 07-04-2023 Abs. Basophil 0.06 k/uL Normal 0.00-0.20 [facility] Comment on above: Performed By: #### C DP, LIP, CP #### [facility] [address] [place] [address] [place] [address] Dosimetrist: Alex Amador MD Abs.Imm.Granulocyte 0.03 k/uL Normal 0.00-0.30 [facility] Comment on above: Performed By: #### C DP, LIP, CP #### [address] [place] [address] Dosimetrist: Alex Amador MD Abs.Neutrophil (Seg) 7.00 k/uL Normal 1.50-8.10 [facility] Comment on above: Performed By: #### C DP, LIP, CP #### [address] [place] [address] Dosimetrist: Alex Amador MD Basophils/100 WBC (Bld) 1 % Normal 0-2 [facility] Comment on above: Performed By: #### C RAMÓN MELTON, CP #### [address] [place] [address] Dosimetrist: Alex Amador MD Eosinophils (Bld) [#/Vol] 0.17 10*3/uL Normal 0.00-0.44 [facility] Comment on above: Performed By: #### C DP LIP, CP #### [address] [place] [address] Dosimetrist: Alex Amador MD Eosinophils/100 WBC (Bld) 2 % Normal 1-4 [facility] Comment on above: Performed By: #### C DP LIP, CP #### [address] [place] [id number] Dosimetrist: Alex Amador MD Erythrocyte distribution width (RBC) [Ratio] 12.4 % Normal 11.8-14.4 [facility] Comment on above: Performed By: #### C DP LIP, CP #### [address] [place] [address] Dosimetrist: Alex Amador MD Hematocrit (Bld) [Volume fraction] 44.6 % Normal 40.7-50.3 [facility] Comment on above: Performed By: #### C RAMÓN MELTON, CP #### [facility] [address] [place], [place] [id number] Dosimetrist: Alex Amador MD Hemoglobin (Bld) [Mass/Vol] 15.5 g/dL Normal 13.0-17.0 [facility] Comment on above: Performed By: #### C LINH LIP, CP #### [facility] [address] [place], [place] [id number] Dosimetrist: Alex Amador MD Immature granulocytes/100 WBC (Bld) 0 % Normal 0 [facility] Comment on above: Performed By: #### C RAMÓN MELTON, CP #### [address] [place], [facility] Dosimetrist: Alex Amador MD Lymphocytes (Bld) [#/Vol] 1.59 10*3/uL Normal 1.10-3.70 [facility] Comment on above: Performed By: #### C RAMÓN MELTON, CP #### [address] [place], [place] [id number] Dosimetrist: Alex Amador MD Lymphocytes/100 WBC (Bld) 17 % Low 24-43 [facility] Comment on above: Performed By: #### C RAMÓN MELTON, CP #### [facility] [address] [place] [address] Dr. [place], [place] [id number] Dosimetrist: Alex Amador MD MCH (RBC) [Entitic mass] 30.3 pg Normal 25.2-33.5 [facility] Comment on above: Performed By: #### C LINH LIP, CP #### [facility] [address] [place] [address] Dr. [place], [place] [id number] Dosimetrist: Alex Amador MD MCHC (RBC) [Mass/Vol] 34.8 g/dL Normal 28.4-34.8 [facility] Comment on above: Performed By: #### C RAMÓN MELTON, CP #### [address] [place] [address] Dosimetrist: Alex Amador MD MCV (RBC) [Entitic vol] 87.1 fL Normal 82.6-102.9 [facility] Comment on above: Performed By: #### C RAÓMN MELTON, CP #### [address] [place]ink, [facility] Dosimetrist: Alex Amador MD Monocytes (Bld) [#/Vol] 0.78 10*3/uL Normal 0.10-1.20 [facility] Comment on above: Performed By: #### C RAMÓN MELTON, CP #### [address] [place]ink, [place] [address] Dosimetrist: Alex Amador MD Monocytes/100 WBC (Bld) 8 % Normal 3-12 [facility] Comment on above: Performed By: #### C RAMÓN MELTON, CP #### [address] [place]ink, [facility] Dosimetrist: Alex Amador MD Neutrophil (Seg) 72 % High 36-65 [facility] Comment on above: Performed By: #### C RAMÓN MELTON, CP #### [address] [place]ink, [facility]83 Dosimetrist: Alex Amador MD NRBC Automated 0.0 per 100 WBC Normal 0.0 [facility] Comment on above: Performed By: #### C RAMÓN MELTON, CP #### [address] [place]ink, [facility]83 Dosimetrist: Alex Amador MD Platelet mean volume (Bld) [Entitic vol] 10.4 fL Normal 8.1-13.5 [facility] Comment on above: Performed By: #### C DP, LIP, CP #### [facility] [address] [place] [address] Dosimetrist: Alex Amador MD Platelets (Bld) [#/Vol] 239 10*3/uL Normal 138-453 [facility] Comment on above: Performed By: #### C DP, LIP, CP #### [facility] [address] [place] [address] Dosimetrist: Alex Amador MD RBC (Bld) [#/Vol] 5.12 10*6/uL Normal 4.21-5.77 [facility] Comment on above: Performed By: #### C DP LIP, CP #### [facility] [address] [place], [place] [phone] Dosimetrist: Alex Amador MD WBC (Bld) [#/Vol] 9.6 10*3/uL Normal 3.5-11.3 [facility] Comment on above: Performed By: #### C DP LIP, CP #### [address] [place] [address] Dosimetrist: Alex Amador MD Comp Metabolic Profon 2023 Albumin [Mass/Vol] 4.4 g/dL Normal 3.5-5.2 [facility] Comment on above: Performed By: #### C DP LIP, CP #### [facility] [address] [place], [place] [phone] Dosimetrist: Alex Amador MD Albumin/Glob Ratio 1.2 Normal 1.0-2.5 [facility] Comment on above: Performed By: #### C DP, LIP, CP #### [facility] [address] [place], [place] [id number] Dosimetrist: Alex Amador MD Alkaline Phos 103 U/L Normal 40-129 [facility] Comment on above: Performed By: #### C DP, LIP, CP #### [facility] [address] [place], [place] [id number] Dosimetrist: Alex Amador MD ALT [Catalytic activity/Vol] 30 U/L Normal 5-41 [facility] Comment on above: Performed By: #### C DP, LIP, CP #### [facility] [address] [place], [place] [id number] Dosimetrist: Alex Amador MD Anion gap [Moles/Vol] 10 mmol/L Normal 9-17 [facility] Comment on above: Performed By: #### C DP, LIP, CP #### [facility] [address] [place], [place] [id number] Dosimetrist: Aelx Amador MD AST [Catalytic activity/Vol] 21 U/L Normal <40 [facility] Comment on above: Performed By: #### C DP, LIP, CP #### [facility] [address] [place], [place] [phone] Dosimetrist: Alex Amador MD Bilirubin [Mass/Vol] 0.7 mg/dL Normal 0.3-1.2 [facility] Comment on above: Performed By: #### C DP, LIP, CP #### [address] [place], [place] [phone] Dosimetrist: Alex Amador MD BUN/CRE Ratio 13 Normal 9-20 [facility] Comment on above: Performed By: #### C DP, LIP, CP #### [facility] [address] [place], [place] [id number] Dosimetrist: Alex Amador MD Calcium [Mass/Vol] 9.1 mg/dL Normal 8.6-10.4 [facility] Comment on above: Performed By: #### C DP, LIP, CP #### [facility] [address] [place], [place] [id number] Dosimetrist: Alex Amador MD Chloride [Moles/Vol] 102 mmol/L Normal 98-107 [facility] Comment on above: Performed By: #### C RAMÓN MELTON, CP #### [facility] [address] [place], [place] [phone] Dosimetrist: Alex Amador MD CO2 [Moles/Vol] 27 mmol/L Normal 20-31 [facility] Comment on above: Performed By: #### C RAMÓN MELTON, CP #### [facility] [address] [place] [address] Dosimetrist: Alex Amador MD Creatinine [Mass/Vol] 0.8 mg/dL Normal 0.7-1.2 [facility] Comment on above: Performed By: #### C RAMÓN MELTON, CP #### [facility] [address] [place] [address] Dosimetrist: Alex Amador MD GFR/1.73 sq M.predicted among non-blacks MDRD (S/P/Bld) [Vol rate/Area] mL/min/{1.73_m2} Normal >60 [facility] Comment on above: Result Comment: These results [...] By: #### C RAMÓN MELTON, CP #### [facility] [address] [place] [address] Dosimetrist: Alex Amador MD Glucose [Mass/Vol] 97 mg/dL Normal 70-99 [facility] Comment on above: Performed By: #### C LINH LIP, CP #### [facility] [address] [place] [address] Dosimetrist: Alex Amador MD Potassium [Moles/Vol] 4.2 mmol/L Normal 3.7-5.3 [facility] Comment on above: Performed By: #### C DP LIP, CP #### [facility] [address] [place] [address] Dosimetrist: Alex Amador MD Protein [Mass/Vol] 8.0 g/dL Normal 6.4-8.3 [facility] Comment on above: Performed By: #### C DP LIP, CP #### [facility] [address] [place], [place] [id number] Dosimetrist: Alex Amador MD Sodium [Moles/Vol] 139 mmol/L Normal 135-144 [facility] Comment on above: Performed By: #### C LINH LIP, CP #### [facility] [address] [place], [place] [phone] Dosimetrist: Alex Amador MD Urea nitrogen [Mass/Vol] 10 mg/dL Normal 6-20 [facility] Comment on above: Performed By: #### C LINH LIP, CP #### [address] [place] [address] Dosimetrist: Alex Amador MD Lipaseon 07-04-2023 Lipase [Catalytic activity/Vol] 29 U/L Normal 13-60 [facility] Comment on above: Performed By: #### C LINH LIP, CP #### [facility] [address] [place] [address] [place] [address] Dosimetrist: Alex Amador MD 36on 11-21-2022 36 Patient's [...] cost is very similar. Help! Thanks. Normal [facility] CBCon 11-17-2022 Erythrocyte distribution width (RBC) [Ratio] 12.9 % Normal 11.5-15.0 [facility] Comment on above: Performed By: #### L [id number] ####[facility] ([facility] [place] [address] ERYTHROCYTE MEAN CORPUSCULAR HEMOGLOBIN CONCENTRATION (G/DL) BY AUTOMATED 34.2 g/dL Normal 32.0-35.0 [facility] Comment on above: Performed By: #### L [id number] ####[facility] ([facility])[address] [place] [address] Hematocrit (Bld) [Volume fraction] 43.6 % Normal 39.0-55.0 [facility] Comment on above: Performed By: #### L [id number] ####[facility] ([facility] [place] [address] Hemoglobin (Bld) [Mass/Vol] 14.9 g/dL Normal 13.0-17.0 [facility] Comment on above: Performed By: #### L [id number] ####[facility] ([facility])[address] [place] [address] MCH (RBC) [Entitic mass] 30.2 pg Normal 27.0-33.0 [facility] Comment on above: Performed By: #### L [id number] ####[facility] ([facility])[address] [place] [address] MCV (RBC) [Entitic vol] 88.4 fL Normal 82.0-98.0 [facility] Comment on above: Performed By: #### L [id number] ####[facility] ([facility])[address] [place] [address] PLATELETS (10*3/UL) IN BLOOD AUTOMATED COUNT 237 10*3/uL Normal 150-400 [facility] Comment on above: Performed By: #### L [id number] ####[facility] ([facility])[address] [place] [address] RBC (Bld) [#/Vol] 4.93 10*6/uL Normal 4.20-5.70 [facility] Comment on above: Performed By: #### L [id number] ####[facility] ([facility])[address] [place] [address] WBC (Bld) [#/Vol] 10.15 10*3/uL Normal 4.00-10.60 [facility] Comment on above: Performed By: #### L [id number] ####[facility] ([facility])[address] [place] [address] HPon 11-17-2022 HP H&P reviewed. The patient [...] consent was signed prior to the procedure. [facility] HP H&P reviewed. The patient was examined and there are no changes to the H&P. Rafat Michelle MD, MPH, [facility], [facility], [facility] Interventional Cardiology Pager Email: [email or web address] 11-17-2022 KOKO RN educated pt on d/c instructions. RN encouraged pt to voice any questions or concerns. Pt verbalizes no questions or concerns at this time. Pt was wheeled off of unit with all of belongings. [facility] Orders Onlyon 11-09-2022 Orders Only [id number] Lawson Lopez Justice 1980 M Date Provider Department Center 11/09/2022 [facility] [place] [facility] Family History Problem Relation Age of Onset Coronary artery disease Mother's Brother Peripheral vascular disease Mother's Brother Family Status - Relation Status Age at Mother's Brother [facility] HPon 10-31-2022 [facility] Cardiology Clinic Note Chief Complaint: Patient here for follow up [facility] for chest pain. He was seen [...] pending the above Rafat Michelle MD, MPH, [facility], [facility], [facility] Interventional Cardiology Pager Email: [email or web address] Normal [facility] Office Visiton 10-31-2022 Follow-up visit [id number] Lawson Lopez 1980 [facility] Provider Department Center 10/31/2022 RAFAT ROLON CINDY Sin Family History Problem Relation Age of Onset Coronary artery disease Mother's Brother Peripheral vascular disease Mother's Brother Family Status - Relation Status Age at Mother's Brother Level of Service:15541 AR OFFICE/OUTPATIENT ESTABLISHED HIGH MDM 40-54 MIN Normal [facility] Orders Onlyon 10-31-2022 Orders Only [id number] Lawson Lopez 1980 [facility] Provider Department Center 10/31/2022 TAE BENÍTEZ CINDY Sin Family History Problem Relation Age of Onset Coronary artery disease Mother's Brother Peripheral vascular disease Mother's Brother Family Status - Relation Status Age at Mother's Brother Normal [facility] Activated partial thrombopla stin time (aPTT) in platelet poor plasma by coagulation aOrdered By: Socorro Osullivan on 10-11-2022 aPTT Coag (PPP) [Time] 27.7 s 25.1-36.5 [facility] Basophils Auto (Bld) [#/Vol] Ordered By: Socorro Osullivan on 10-11-2022 Basophils (Bld) [#/Vol] 0.1 10*3/uL 0.0-0.2 [facility] Basophils/100 WBC Auto (Bld) Ordered By: Socorro Osullivan on 10-11-2022 Basophils/100 WBC (Bld) 0.9 % . [facility] Calcium [Mass/volume] in Ser um or PlasmaOrdered By: Socorro Osullivan on 10-11-2022 Calcium [Mass/Vol] 9.5 mg/dL 8.6-10.3 [facility] Carbon dioxide, total [Moles /volume] in Serum or PlasmaOrdered By: Socorro Osullivan on 10-11-2022 CO2 [Moles/Vol] 29.1 mmol/L 21.0-31.0 [facility] Chloride [Moles/volume] in S josselin or PlasmaOrdered By: Socorro Osullivan on 10-11-2022 Chloride [Moles/Vol] 102 mmol/L 98-107 [facility] Creatine kinase [Enzymatic a ctivity/volume] in Serum or PlasmaOrdered By: Socorro Osullivan on 10-11-2022 CK [Catalytic activity/Vol] 87 U/L 30-223 [facility] Creatinine [Mass/volume] in Serum or PlasmaOrdered By: Socorro Osullivan on 10-11-2022 Creatinine [Mass/Vol] 0.79 mg/dL 0.70-1.30 [facility] Eosinophils Auto (Bld) [#/Vo l]Ordered By: Socorro Osullivan on 10-11-2022 Eosinophils (Bld) [#/Vol] 0.2 10*3/uL 0.0-0.45 [facility] Eosinophils/100 WBC Auto (Bl d)Ordered By: Socorro Osullivan on 10-11-2022 Eosinophils/100 WBC (Bld) 2.5 % . [facility] Erythrocyte distribution wid th Auto (RBC) [Ratio]Ordered By: Socorro Osullivan on 10-11-2022 Erythrocyte distribution width (RBC) [Ratio] 13.3 % 12.0-14.8 [facility] Glucose [Mass/volume] in Ser um or PlasmaOrdered By: Socorro Osullivan on 10-11-2022 Glucose [Mass/Vol] 90 mg/dL 70-100 [facility] Comment on above: ADA recommended refe rence rangeRandom Glucose Reference Range is dependent on time and content of last meal. Glucose of more than 200 mg/dL in a nonstressed, ambulatory subject supports the diagnosis of Diabetes Mellitus. Hematocrit Auto (Bld) [Volum e fraction]Ordered By: Socorro Osullivan on 10-11-2022 Hematocrit (Bld) [Volume fraction] 40.4 % 38.8-50.0 [facility] Hemoglobin [Mass/volume] in BloodOrdered By: Socorro Osullivan on 10-11-2022 Hemoglobin (Bld) [Mass/Vol] 14.2 g/dL 13.0-17.0 [facility] - CoagulationOrde red By: Socorro Osullivan on 10-11-2022 PT Coag (PPP) [Time] 12.0 s 9.0-12.9 [facility] Leukocytes [#/volume] correc giselle for nucleated erythrocytes in Blood by Automated counOrdered By: Socorro Osullivan on 10-11-2022 WBC corrected for nucl RBC Auto (Bld) [#/Vol] 9.5 10*3/uL 4.1-10.5 [facility] Lymphocytes Auto (Bld) [#/Vo l]Ordered By: Socorro Osullivan on 10-11-2022 Lymphocytes (Bld) [#/Vol] 1.8 10*3/uL 1.00-4.8 [facility] Lymphocytes/100 WBC Auto (Bl d)Ordered By: Socorro Osullivan on 10-11-2022 Lymphocytes/100 WBC (Bld) 18.6 % . [facility] MCH Auto (RBC) [Entitic mass ]Ordered By: Socorro Osullivan on 10-11-2022 MCH (RBC) [Entitic mass] 30.4 pg 27.5-35.2 [facility] MCHC Auto (RBC) [Mass/Vol]Or dered By: Socorro Osullivan on 10-11-2022 MCHC (RBC) [Mass/Vol] 35.1 g/dL 32.5-35.6 [facility] MCV Auto (RBC) [Entitic vol] Ordered By: Socorro Osullivan on 10-11-2022 MCV (RBC) [Entitic vol] 86.6 fL 83.5-101 [facility] Monocyte distribution width [Entitic volume] in Blood by AutomatedOrdered By: Socorro Osullivan on 10-11-2022 Monocyte distribution width Auto (Bld) [Entitic vol] 18.08 % 0.00-20.00 [facility] Monocytes Auto (Bld) [#/Vol] Ordered By: Socorro Osullivan on 10-11-2022 Monocytes (Bld) [#/Vol] 0.7 10*3/uL 0.0-0.8 [facility] Monocytes/100 WBC Auto (Bld) Ordered By: Socorro Osullivan on 10-11-2022 Monocytes/100 WBC (Bld) 7.2 % . [facility] Natriuretic peptide B [Mass/ Vol]Ordered By: Socorro Osullivan on 10-11-2022 Natriuretic peptide B (Bld) [Mass/Vol] 21.0 pg/mL 5-100 [facility] Neutrophils Auto (Bld) [#/Vo l]Ordered By: Socorro Osullivan on 10-11-2022 Neutrophils (Bld) [#/Vol] 6.7 10*3/uL 1.8-7.7 [facility] Neutrophils/100 WBC Auto (Bl d)Ordered By: Socorro Osullivan on 10-11-2022 Neutrophils/100 WBC (Bld) 70.8 % . [facility] No Panel InformationOrdered By: Socorro Osullivan on 10-11-2022 Estimated GFR (CKD-EPI) > 60.0 mL/Min [facility] Creatinine Clearance (Chem 158.41 [facility] Nucleated erythrocytes [Pres ence] in Blood by Automated countOrdered By: Socorro Osullivan on 10-11-2022 Nucleated RBC Auto Ql (Bld) 0.2 /100{WBC} 0-0.5 [facility] Platelet mean volume Auto (B ld) [Entitic vol]Ordered By: Socorro Osullivan on 10-11-2022 Platelet mean volume (Bld) [Entitic vol] 8.0 fL 6.6-10.1 [facility] Platelet poor plasma interna tional normalized ratio (INR) by coagulation assay (relatOrdered By: Socorro Osullivan on 10-11-2022 INR Coag (PPP) [Relative time] 1.0 {INR} [facility] Comment on above: INR Therapeutic Rang [...] 10-11-2022 Platelets (Bld) [#/Vol] 218 10*3/uL 150-450 [facility] Potassium [Moles/volume] in Serum or PlasmaOrdered By: Socorro Osullivan on 10-11-2022 Potassium [Moles/Vol] 3.8 mmol/L 3.5-5.1 [facility] RBC Auto (Bld) [#/Vol]Ordere d By: Socorro Osullivan on 10-11-2022 RBC (Bld) [#/Vol] 4.67 10*6/uL 3.90-5.60 [facility] Serum or plasma anion gap de terminationOrdered By: Socorro Osullivan on 10-11-2022 Anion gap [Moles/Vol] 10.7 mmol/L 6.0-15.0 [facility] Sodium [Moles/volume] in Ser um or PlasmaOrdered By: Socorro Osullivan on 10-11-2022 Sodium [Moles/Vol] 138 mmol/L 136-145 [facility] Troponin I.cardiac [Mass/vol ume] in Serum or Plasma by Detection limit <= 0.01 ng/Ordered By: Socorro Osullivan on 10-11-2022 Troponin I.cardiac DL <= 0.01 ng/mL [Mass/Vol] 6.3 pg/mL 0.0-20.0 [facility] Urea nitrogen [Mass/volume] in Serum or PlasmaOrdered By: Socorro Osullivan on 10-11-2022 Urea nitrogen [Mass/Vol] 11 mg/dL 7-25 [facility] WBC Auto (Bld) [#/Vol]Ordere d By: Socorro Osullivan on 10-11-2022 WBC (Bld) [#/Vol] 9.5 10*3/uL 4.1-10.5 [facility] BNPon 05-16-2022 Natriuretic peptide B (Bld) [Mass/Vol] 51.0 pg/mL Normal <=450.0 [facility] Comment on above: Performed By: #### B GPS NAVIGATION INSTALLER, CMADM, BMP #### [facility] [address] [place] [address] Dr. Divina Patino CARDIAC DAT 3-6on 3 CK [Catalytic activity/Vol] 43 U/L Normal 39-308 [facility] Comment on above: Performed By: #### L ACT #### [facility] [address] [place] [address] Dr. Divina Patino HSTROP 10.6 pg/mL Normal 4.0-76.1 [facility] Comment on above: Result Comment: CUT- OFF POINTS HAVE BEEN ESTABLISHED BASED ON THE FOURTH UNIVERSAL DEFINITIONS OF MYOCARDIAL INFARCTION. THE UPPER REFERENCE LIMIT (URL) OF TROPONIN, DEFINED THE 99TH PERCENTILE OF cTnI DISTRIBUTION IN A REFERENCE POPULATION, HAS BEEN CONFIRMED THE DECISION THRESHOLD FOR MD DIAGNOSIS. Performed By: #### L ACT #### [facility] [address] [place] [address] [address] Divina Patino CARDIAC DAT ADMITon 023 CK [Catalytic activity/Vol] 44 U/L Normal 39-308 [facility] Comment on above: Performed By: #### B GPS NAVIGATION INSTALLER, CMADM, BMP #### [facility] [address] [place] [address] [address] Divina Patino CK.MB [Mass/Vol] ng/mL Normal <=3.60 [facility] Comment on above: Performed By: #### B GPS NAVIGATION INSTALLER, ESME, BMP #### [facility] [address] [place] [address] Dr. Divina Patino HSTROP 9.9 pg/mL Normal 4.0-76.1 [facility] Comment on above: Result Comment: CUT- OFF POINTS HAVE BEEN ESTABLISHED BASED ON THE FOURTH UNIVERSAL DEFINITIONS OF MYOCARDIAL INFARCTION. THE UPPER REFERENCE LIMIT (URL) OF TROPONIN, DEFINED THE 99TH PERCENTILE OF cTnI DISTRIBUTION IN A REFERENCE POPULATION, HAS BEEN CONFIRMED THE DECISION THRESHOLD FOR MD DIAGNOSIS. Performed By: #### B GPS NAVIGATION INSTALLER, CMADM, BMP #### [facility] [address] [place] [address] Dr. Divina Patino CIELO 21 ng/mL Normal 16-96 [facility] Comment on above: Performed By: #### B GPS NAVIGATION INSTALLER, ESME, BMP #### [facility] [address] [place] [address] Dr. Divina Patino CBC AUTO DIFFon 05-16-2022 BASO # 0.1 103/ul Normal 0.0-0.1 [facility] Comment on above: Performed By: #### C BC #### [facility] [address] [place] [address] Dr. Divina Patino Basophils/100 WBC (Bld) 0.6 % Normal 0.2-2.0 [facility] Comment on above: Performed By: #### C BC #### [facility] [address] [place] [address] Dr. Divina Patino EO # 0.3 103/ul Normal 0.0-0.7 [facility] Comment on above: Performed By: #### C BC #### [facility] [address] [place] [address] Dr. Divina Patino Eosinophils/100 WBC (Bld) 2.3 % Normal 0.9-7.0 [facility] Comment on above: Performed By: #### C BC #### [facility] [address] [place] [address] Dr. Divina Patino Erythrocyte distribution width (RBC) [Ratio] 12.3 % Normal 11.0-15.0 [facility] Comment on above: Performed By: #### C BC #### [facility] [address] [address] [address] Divina Patino Hematocrit (Bld) [Volume fraction] 41.6 % Critically low 42.0-54.0 [facility] Comment on above: Performed By: #### C BC #### [facility] [address] [address] [address] Divina Patino Hemoglobin (Bld) [Mass/Vol] 14.6 g/dL Normal 14.0-18.0 [facility] Comment on above: Performed By: #### C BC #### [facility] [address] [address] [address] Divina Patino IG # 0.12 10e3/ul Critically high 0.00-0.03 [facility] Comment on above: Performed By: #### C BC #### [facility] [address] [address] [address] Divina Patino IG % 1.0 % Critically high 0.0-0.5 [facility] Comment on above: Performed By: #### C BC #### [facility] [address] [address] [address] Divina Patino LYMPH # 2.7 103/ul Normal 1.2-3.8 [facility] Comment on above: Performed By: #### C BC #### [facility] [address] [place] [address] Dr. Divina Patino Lymphocytes/100 WBC (Bld) 23.0 % Normal 20.5-60.0 [facility] Comment on above: Performed By: #### C BC #### [facility] [address] [address] [address] Divina Patino MANUAL DIFF REQ NO Normal [facility] Comment on above: Performed By: #### C BC #### [facility] [address] [place] [address] Dr. Divina Patino MCH (RBC) [Entitic mass] 30.0 pg Normal 25.9-34.0 [facility] Comment on above: Performed By: #### C BC #### [facility] [address] [address] [address] Divina Patino MCHC (RBC) [Mass/Vol] 35.1 g/dL Normal 29.9-35.2 [facility] Comment on above: Performed By: #### C BC #### [facility] [address] [address] [address] Divina Patino MCV (RBC) [Entitic vol] 85.6 fL Normal 80.0-94.0 [facility] Comment on above: Performed By: #### C BC #### [facility] [address] [address] [address] Divina Patino MONO # 1.0 103/ul Critically high 0.3-0.8 [facility] Comment on above: Performed By: #### C BC #### [facility] [address] [place] [address] Dr. Divina Pation Monocytes/100 WBC (Bld) 8.6 % Normal 1.7-12.0 [facility] Comment on above: Performed By: #### C BC #### [facility] [address] [address] [address] Divina Patino NEUT # 7.4 103/ul Critically high 1.4-6.5 [facility] Comment on above: Performed By: #### C BC #### [facility] [address] [place] [address] Dr. Divina Patino Neutrophils/100 WBC (Bld) 64.5 % Normal 43.0-75.0 [facility] Comment on above: Performed By: #### C BC #### [facility] [address] [address] [address] Divina Patino Platelet mean volume (Bld) [Entitic vol] 9.9 fL Normal 9.5-13.5 [facility] Comment on above: Performed By: #### C BC #### [facility] [address] [address] [address] Divina Patino PLT 231 103/ul Normal 150-450 [facility] Comment on above: Performed By: #### C BC #### [facility] [address] [place] [address] Dr. Divina Patino RBC 4.86 106/ul Normal 4.70-6.10 [facility] Comment on above: Performed By: #### C BC #### [facility] [address] [place] [address] Dr. Divina Patino WBC 11.5 103/ul Critically high 4.0-11.0 [facility] Comment on above: Performed By: #### C BC #### [facility] [address] [place] [address] Dr. Divina Patino D-DIMERon 05-16-2022 D-DIMER 0.19 mg/L FEU Normal <=0.59 [facility] [place] [facility] Comment on above: Performed By: #### D DIM #### [facility] [address] [place] [address] Dr. Divina Patino D-DIMER COMMENTS SEE BELOW Normal [facility] Comment on above: Result Comment: [...] hospitalization. Performed By: #### D DIM #### [facility] [address] [place] [address] Dr. Divina Patino LACTATE/LACTIC ACIDon 2022 Lactate [Moles/Vol] 1.5 mmol/L Normal 0.4-1.9 [facility] Comment on above: Performed By: #### L ACT #### [facility] [address] [place] [address] Dr. Divina Patino PROF CHEM 8 (BAS METB)on Anion gap [Moles/Vol] 13.7 mmol/L Normal [facility] Comment on above: Performed By: #### B GPS NAVIGATION INSTALLER, CMADM, BMP #### [facility] [address] [address] [address] Divina Patino Calcium [Mass/Vol] 8.7 mg/dL Normal 8.5-10.1 [facility] Comment on above: Performed By: #### B GPS NAVIGATION INSTALLER, ESME, BMP #### [facility] [address] [place] [address] Dr. Divina Patino Chloride [Moles/Vol] 102 mmol/L Normal 98-107 [facility] Comment on above: Performed By: #### B GPS NAVIGATION INSTALLER, ESME, BMP #### [facility] [address] [place] [address] Dr. Divina Patino CO2 [Moles/Vol] 27.1 mmol/L Normal 21.0-32.0 [facility] Comment on above: Performed By: #### B GPS NAVIGATION INSTALLER, ESME, BMP #### [facility] [address] [place] [address] Dr. Divina Patino Creatinine [Mass/Vol] 0.85 mg/dL Normal 0.70-1.30 [facility] Comment on above: Performed By: #### B GPS NAVIGATION INSTALLER, CMADM, BMP #### [facility] [address] [place] [address] Dr. Divina Patino EGFR-AF TRINIDADIAN >60 Normal >=60 [facility] Comment on above: Performed By: #### B GPS NAVIGATION INSTALLER, MAGDADM, BMP #### [facility] [address] [place] [address] Dr. Divina Patino EGFR-NON AF TRINIDADIAN >60 Normal >=60 [facility] Comment on above: Performed By: #### B GPS NAVIGATION INSTALLER, CMADM, BMP #### [facility] [address] [place] [address] Dr. Divina Patino Glucose [Mass/Vol] 114 mg/dL Critically high 74-106 [facility] Comment on above: Performed By: #### B GPS NAVIGATION INSTALLER, MAGDADM, BMP #### [facility] [address] [place] [address] Dr. Divina Patino Potassium [Moles/Vol] 3.8 mmol/L Normal 3.5-5.1 [facility] Comment on above: Performed By: #### B GPS NAVIGATION INSTALLER, CMADM, BMP #### [facility] [address] [place], [place] [address] Dr. Divina Patino Sodium [Moles/Vol] 139 mmol/L Normal 136-145 [facility] Comment on above: Performed By: #### B GPS NAVIGATION INSTALLER, CMADM, BMP #### [facility] [address] [address] [address] Divina Patino Urea nitrogen [Mass/Vol] 15.0 mg/dL Normal 7.0-18.0 [facility] Comment on above: Performed By: #### B GPS NAVIGATION INSTALLER, CMADM, BMP #### [facility] [address] [address] [address] Divina Patino Urea nitrogen/Creatinine [Mass ratio] 17.6 mg/mg Normal [facility] Comment on above: Performed By: #### B GPS NAVIGATION INSTALLER, CMADM, BMP #### [facility] [address] [address] [address] Divina Patino XR CHEST 1 Von [...] AMAN PURCELL Date: 2022-05-15 23:20 Normal [facility] CARDIAC DAT ADMITon 023 CK [Catalytic activity/Vol] 78 U/L Normal 39-308 [facility] Comment on above: Performed By: #### L ACT #### [facility] [address] [address] [address] Divina Patino CK.MB [Mass/Vol] 1.08 ng/mL Normal <=3.60 [facility] Comment on above: Performed By: #### L ACT #### [facility] [address] [address] [address] Divina Patino HSTROP 12.2 pg/mL Normal 4.0-76.1 [facility] Comment on above: Result Comment: CUT- OFF POINTS HAVE BEEN ESTABLISHED BASED ON THE FOURTH UNIVERSAL DEFINITIONS OF MYOCARDIAL INFARCTION. THE UPPER REFERENCE LIMIT (URL) OF TROPONIN, DEFINED THE 99TH PERCENTILE OF cTnI DISTRIBUTION IN A REFERENCE POPULATION, HAS BEEN CONFIRMED THE DECISION THRESHOLD FOR MD DIAGNOSIS. Performed By: #### L ACT #### [facility] [address] [place] [address] Dr. Divina Patino CIELO 24 ng/mL Normal 16-96 [facility] Comment on above: Performed By: #### L ACT #### [facility] [address] [place] [address] Dr. Divina Patino CBC AUTO DIFFon 05-11-2022 BASO # 0.1 103/ul Normal 0.0-0.1 [facility] Comment on above: Performed By: #### L ACT #### [facility] [address] [place] [address] Dr. Divina Patino Basophils/100 WBC (Bld) 0.6 % Normal 0.2-2.0 [facility] Comment on above: Performed By: #### L ACT #### [facility] [address] [place] [address] Dr. Divina Patino EO # 0.2 103/ul Normal 0.0-0.7 [facility] Comment on above: Performed By: #### L ACT #### [facility] [address] [place] [address] Dr. Divina Patino Eosinophils/100 WBC (Bld) 2.0 % Normal 0.9-7.0 [facility] Comment on above: Performed By: #### L ACT #### [facility] [address] [place] [address] Dr. Divina Patino Erythrocyte distribution width (RBC) [Ratio] 12.4 % Normal 11.0-15.0 [facility] Comment on above: Performed By: #### L ACT #### [facility] [address] [place] [address] Dr. Divina Patino Hematocrit (Bld) [Volume fraction] 43.8 % Normal 42.0-54.0 [facility] Comment on above: Performed By: #### L ACT #### [facility] [address] [address] [address] Divina Patino Hemoglobin (Bld) [Mass/Vol] 15.3 g/dL Normal 14.0-18.0 [facility] Comment on above: Performed By: #### L ACT #### [facility] [address] [address] [address] Divina Patino IG # 0.06 10e3/ul Critically high 0.00-0.03 [facility] Comment on above: Performed By: #### L ACT #### [facility] [address] [address] [address] Divina Patino IG % 0.6 % Critically high 0.0-0.5 [facility] Comment on above: Performed By: #### L ACT #### [facility] [address] [place] [address] Dr. Divina Patino LYMPH # 2.0 103/ul Normal 1.2-3.8 [facility] Comment on above: Performed By: #### L ACT #### [facility] [address] [place] [address] Dr. Divina Patino Lymphocytes/100 WBC (Bld) 19.9 % Critically low 20.5-60.0 [facility] Comment on above: Performed By: #### L ACT #### [facility] [address] [place] [address] Dr. Divina Patino MANUAL DIFF REQ NO Normal [facility] Comment on above: Performed By: #### L ACT #### [facility] [address] [place] [address] Dr. Divina Patino MCH (RBC) [Entitic mass] 30.2 pg Normal 25.9-34.0 [facility] Comment on above: Performed By: #### L ACT #### [facility] [address] [place] [address] Dr. Divina Patino MCHC (RBC) [Mass/Vol] 34.9 g/dL Normal 29.9-35.2 [facility] Comment on above: Performed By: #### L ACT #### [facility] [address] [address] [address] Divina Patino MCV (RBC) [Entitic vol] 86.6 fL Normal 80.0-94.0 [facility] Comment on above: Performed By: #### L ACT #### [facility] [address] [address] [address] Divina Patino MONO # 0.8 103/ul Normal 0.3-0.8 [facility] Comment on above: Performed By: #### L ACT #### [facility] [address] [address] [address] Divina Patino Monocytes/100 WBC (Bld) 7.7 % Normal 1.7-12.0 [facility] Comment on above: Performed By: #### L ACT #### [facility] [address] [address] [address] Divina Patino NEUT # 7.1 103/ul Critically high 1.4-6.5 [facility] Comment on above: Performed By: #### L ACT #### [facility] [address] [address] [address] Divina Patino Neutrophils/100 WBC (Bld) 69.2 % Normal 43.0-75.0 [facility] Comment on above: Performed By: #### L ACT #### [facility] [address] [place] [address] Dr. Divina Patino Platelet mean volume (Bld) [Entitic vol] 10.3 fL Normal 9.5-13.5 [facility] Comment on above: Performed By: #### L ACT #### [facility] [address] [address] [address] Divina Patino PLT 238 103/ul Normal 150-450 [facility] Comment on above: Performed By: #### L ACT #### [facility] [address] [address] [address] Divina Patino RBC 5.06 106/ul Normal 4.70-6.10 [facility] Comment on above: Performed By: #### L ACT #### [facility] [address] [address] [address] Divina Patino WBC 10.3 103/ul Normal 4.0-11.0 [facility] Comment on above: Performed By: #### L ACT #### [facility] [address] [address] [address] Divina Patino CRPon 05-11-2022 CRP [Mass/Vol] mg/L Normal <=1.0 [facility] Comment on above: Performed By: #### L ACT #### [facility] [address] [address] HEAD WO CONon [...] JAMES JOHNSTON Date: 2022-05-11 19:47 Normal [facility] Covid-19 PCR (CVDTB)on SARS-CoV-2 (COVID-19) RNA JERRICA+probe Ql (Unsp spec) Not detected Normal NOT DETECTED [facility] Comment on above: Result Comment: [...] for this test is supported by the [place] of Health and Human Service's declaration that [...] used). Performed By: #### C VDTBH #### [facility] [address] [place] [address] Dr. Divina Patino INFLUENZA A AND B AGon 05-11 [facility] SEE BELOW Normal [facility] Comment on above: Result Comment: Nega tive for Flu A protein angiten. Infection due to Flu A cannot be ruled out. Flu A angiten in the sample may be below the detection limit of the test. Performed By: #### I NFLUAB #### [facility] [address] [place] [address] Dr. Divina Patino INFLUBNEG SEE BELOW Normal [facility] Comment on above: Result Comment: Nega tive for Flu B protein antigen. Infection due to Flu B cannot be ruled out. Flu B antigen in the sample may be below the detection limit of the test. Performed By: #### I NFLUAB #### [facility] [address] [place] [address] Dr. Divina Patino INFLUENZA A AG Negative Normal NEGATIVE SEE COMMENT [facility] Comment on above: Performed By: #### I NFLUAB #### [facility] [address] [place] [address] Dr. Divina Patino INFLUENZA B AG Negative Normal NEGATIVE SEE COMMENT [facility] Comment on above: Performed By: #### I NFLUAB #### [facility] [address] [place] [address] Dr. Divina Patino LACTATE/LACTIC ACIDon 2022 Lactate [Moles/Vol] 1.8 mmol/L Normal 0.4-1.9 [facility] Comment on above: Performed By: #### L ACT #### [facility] [address] [place] [address] Dr. Divina Patino MONOon 05-11-2022 Monocytes (Bld) [#/Vol] Negative Normal NEGATIVE [facility] Comment on above: Performed By: #### M LEANDRO #### [facility] [address] [address] [address] Divina Patino PROF CHEM 8 (BAS METB)on Anion gap [Moles/Vol] 12.8 mmol/L Normal [facility] Comment on above: Performed By: #### L ACT #### [facility] [address] [address] [address] Divina Patino Calcium [Mass/Vol] 9.1 mg/dL Normal 8.5-10.1 [facility] Comment on above: Performed By: #### L ACT #### [facility] [address] [address] [address] Divina Patino Chloride [Moles/Vol] 101 mmol/L Normal 98-107 [facility] Comment on above: Performed By: #### L ACT #### [facility] [address] [place] [address] Dr. Divina Patino CO2 [Moles/Vol] 26.9 mmol/L Normal 21.0-32.0 [facility] Comment on above: Performed By: #### L ACT #### [facility] [address] [place] [address] Dr. Divina Patino Creatinine [Mass/Vol] 0.90 mg/dL Normal 0.70-1.30 [facility] Comment on above: Performed By: #### L ACT #### [facility] [address] [place] [address] Dr. Divina Patino EGFR-AF TRINIDADIAN >60 Normal >=60 [facility] Comment on above: Performed By: #### L ACT #### [facility] [address] [place] [address] Dr. Divina Patino EGFR-NON AF TRINIDADIAN >60 Normal >=60 [facility] Comment on above: Performed By: #### L ACT #### [facility] [address] [address] [address] Divina Patino Glucose [Mass/Vol] 110 mg/dL Critically high 74-106 [facility] Comment on above: Performed By: #### L ACT #### [facility] [address] [address] [address] Divina Patino Potassium [Moles/Vol] 3.7 mmol/L Normal 3.5-5.1 [facility] Comment on above: Performed By: #### L ACT #### [facility] [address] [address] [address] Divina Patino Sodium [Moles/Vol] 137 mmol/L Normal 136-145 [facility] Comment on above: Performed By: #### L ACT #### [facility] [address] [address] [address] Divina Patino Urea nitrogen [Mass/Vol] 11.0 mg/dL Normal 7.0-18.0 [facility] Comment on above: Performed By: #### L ACT #### [facility] [address] [place] [address] Dr. Divina Patino Urea nitrogen/Creatinine [Mass ratio] 12.2 mg/mg Normal [facility] Comment on above: Performed By: #### L ACT #### [facility] [address] [address] [address] Divina Patino [facility] 16 mm/hr Critically high <=15 [facility] Comment on above: Performed By: #### L ACT #### [facility] [address] [place] [address] Dr. Divina Patino TSHon 05-11-2022 TSH 3.949 uIU/mL Critically high 0.358-3.740 [facility] Comment on above: Performed By: #### L ACT #### [facility] [address] [place] [address] Dr. Divina Patino COVID-19 SOFIAOrdered By: Andres Elizondo on 12-02-2021 SARS-CoV+SARS-CoV-2 (COVID-19) Ag IA.rapid Ql (Resp) Negative Negative [facility] Comment on above: This is a duplicate Judith SARS Antigen (ANURAG) result to be used for statistical tracking purpose only. No Panel InformationOrdered By: Elian Elizondo on 12-02-2021 SARS Antigen (LFIA) [facility] CBC with Auto Differentialon 06-08-2021 Absolute Eos # 0.11 [facility] th Absolute Immature Granulocyte 0.06 [facility] Absolute Lymph # 1.65 [facility] alth Absolute [place] [facility] Basophils (Bld) [#/Vol] 0.07 10*3/uL [facility] Basophils/100 WBC (Bld) 1 % 0 - 2 % [facility] Eosinophils/100 WBC (Bld) 1 % 1 - 4 % [facility] Hematocrit (Bld) [Volume fraction] 47.5 % 40.7 - 50.3 % [facility] Hemoglobin.gastroint estinal spec 1 Ql (Stl) 16.3 g/dL 13.0 - 17.0 g/dL [facility] Immature granulocytes/100 WBC (Bld) 1 % High 0 [facility] Interpretation and review of laboratory results Abnormal [facility] Lymphocytes/100 WBC (Bld) 14 % Low 24 - 43 % [facility] MCH (RBC) [Entitic mass] 30.5 pg 25.2 - 33.5 pg [facility] MCHC (RBC) [Mass/Vol] 34.3 g/dL 28.4 - 34.8 g/dL [facility] MCV (RBC) [Entitic vol] 89.0 fL 82.6 - 102.9 fL [facility] Monocytes/100 WBC (Bld) 9 % 3 - 12 % [facility] NRBC Automated 0.0 0.0 per 100 WBC [facility] Platelet distribution width (Bld) [Ratio] 12.5 % 11.8 - 14.4 % [facility] Platelet mean volume (Bld) [Entitic vol] 10.8 fL 8.1 - 13.5 fL [facility] Platelets (Bld) [#/Vol] 231 10*3/uL [facility] RBC (Bld) [#/Vol] 5.34 10*6/uL 4.21 - 5.77 m/uL [facility] Segmented neutrophils/100 WBC (Bld) 74 % High 36 - 65 % [facility] Segs Absolute 9.05 [facility] WBC (Bld) [#/Vol] 12.0 10*3/uL High [facility] CT ABDOMEN PELVIS W IV CONTR AST Additional Contrast? Noneon 06-08-2021 Findings suspicious for acute enteritis. Diffuse hepatic steatosis. Nonobstructing stones in the left kidney. Normal appendix. [facility] EXAMINATION: CT OF THE ABDOMEN [...] COMPARISON: 02/05/2019 HISTORY: ORDERING SYSTEM PROVIDED HISTORY: abd pain TECHNOLOGIST PROVIDED HISTORY: abd pain Decision Support Exception - unselect if [...] aneurysm. Bones/Soft Tissues: Mild multilevel thoracolumbar spondylosis. [facility] Ok Rodgers MD - 06/08/2021 EXAMINATION: [...] COMPARISON: 02/05/2019 HISTORY: ORDERING SYSTEM PROVIDED HISTORY: abd pain TECHNOLOGIST PROVIDED HISTORY: abd pain Decision Support Exception - unselect if [...] stones in the left kidney. Normal appendix. [employer] Phone: Radiology Study observation (narrative) [employer] Phone: CT ABDOMEN PELVIS W IV CONTR AST Additional Contrast? NoneOrdered By: Ok Rodgers on 06-08-2021 [employer]: Comprehensive Metabolic Pane karan 06-08-2021 Albumin [Mass/Vol] 4.6 g/dL 3.5 - 5.2 g/dL [facility] Album[facility]/Globulin [Mass ratio] 1.5 {ratio} [facility] ALP (Bld) [Catalytic activity/Vol] 90 U/L 40 - 129 U[facility]L [facility] ALT [Catalytic activity/Vol] 37 U/L 5 - 41 U/L [facility] Anion gap [Moles/Vol] 10 mmol/L 9 - 17 mmol/L [facility] AST [Catalytic activity/Vol] 18 U/L <40 [facility] Bilirubin [Mass/Vol] 0.83 mg/dL 0.3 - 1.2 mg/dL [facility] Calcium [Mass/Vol] 9.7 mg/dL 8.6 - 10.4 mg/dL [facility] Chloride [Moles/Vol] 101 mmol/L 98 - 107 mmol/L [facility] CO2 [Moles/Vol] 29 mmol/L 20 - 31 mmol/L [facility] Creatinine [Mass/Vol] 0.83 mg/dL 0.70 - 1.20 mg/dL [facility] Free PSA/Total PSA [Mass fraction] 7.6 g/dL 6.4 - 8.3 g/dL [facility] GFR >60 >60 mL/min [facility] GFR Non- >60 >60 mL/min [facility] Glucose [Mass/Vol] 110 mg/dL High 70 - 99 mg/dL [facility] Interpretation and review of laboratory results Abnormal [facility] Potassium [Moles/Vol] 4.2 mmol/L 3.7 - 5.3 mmol/L [facility] Sodium [Moles/Vol] 140 mmol/L 135 - 144 mmol/L [facility] Urea nitrogen (BldV) [Mass/Vol] 10 mg/dL 6 - 20 mg/dL [facility] Urea nitrogen/Creatinine (Bld) [Mass ratio] 12 [facility] Laboratory - Chemistry and C hemistry - challengeon 06-08-2021 GFR/1.73 sq M.predicted MDRD (S/P/Bld) [Vol rate/Area] [facility] Comment on above: Average GFR for 40-4 9 years old: 99 mL/min/1.73sq m Chronic Kidney Disease: <60 mL/min/1.73sq m Kidney failure: <15 mL/min/1.73sq m eGFR calculated using average adult body mass. Additional eGFR calculator available at: http://www.dentaZOOM.eDealya/multiple_crcl_2012.htm Stage 1: Some kidney damage normal GFR Stage 2: Mild kidney damage GFR 60-89 Stage 3: Moderate kidney damage GFR 30-59 Stage 4: Severe kidney damage GFR 15-29 Stage 5: Severe kidney damage GFR <15 ESRD - chronic treatment by dialysis or transplant Lactic Acidon 06-08-2021 Lactate [Moles/Vol] 2.1 mmol/L 0.5 - 2.2 mmol/L [facility] Lipaseon 06-08-2021 Lipase [Catalytic activity/Vol] 30 U/L 13 - 60 U/L [facility] No Panel Informationon 06-08 [facility] Basic Metabolic Panelon - Anion gap [Moles/Vol] 9 mmol/L 9 - 17 mmol/L [place] Bun/Cre Ratio 12 [place] Calcium [Mass/Vol] 8.8 mg/dL 8.6 - 10.4 mg/dL [place] Chloride [Moles/Vol] 98 mmol/L 98 - 107 mmol/L [place] CO2 [Moles/Vol] 26 mmol/L 20 - 31 mmol/L [place] Creatinine [Mass/Vol] 1.04 mg/dL 0.7 - 1.2 mg/dL [place] GFR >60 >60 mL/min [place] GFR Non- >60 >60 mL/min [place] Glucose [Mass/Vol] 111 mg/dL High 70 - 99 mg/dL [place] Interpretation and review of laboratory results Abnormal [place] Potassium [Moles/Vol] 3.9 mmol/L 3.7 - 5.3 mmol/L [place] Sodium [Moles/Vol] 133 mmol/L Low 135 - 144 mmol/L [place] Urea nitrogen [Mass/Vol] 12 mg/dL 6 - 20 mg/dL [place] Brain Natriuretic Peptideon 03-19-2020 Natriuretic peptide B (Bld) [Mass/Vol] Pro-BNP Reference Range: [place], [place] Comment on above: Rule Out: <300 Reis Zone: Age <50 300-450 Age 50-75 300-900 Age >75 300-1800 Usually represents mild to moderate HF but other cardiopulmonary causes cannot be ruled out. Rule In: Age <50 >450 Age 50-75 >900 Age >75 >1800 Natriuretic peptide B (Bld) [Mass/Vol] 60 pg/mL <300 [place] Comment on above: Pro-BNP results radha ot be compared to BNP results. CBC Auto Differentialon Basophils (Bld) [#/Vol] 0.04 10*3/uL [place] Basophils/100 WBC (Bld) 1 % 0 - 2 % [place] Differential Type NOT REPORTED [place] Eosinophils (Bld) [#/Vol] 0.04 10*3/uL [place] Eosinophils/100 WBC (Bld) 1 % 1 - 4 % [place] Erythrocyte distribution width (RBC) [Ratio] 12.5 % 11.8 - 14.4 % [place] Hematocrit (Bld) [Volume fraction] 48.2 % 40.7 - 50.3 % [place] Hemoglobin (Bld) [Mass/Vol] 16.3 g/dL 13 - 17 g/dL [place] Immature granulocytes (Bld) [#/Vol] 1 % High 0 [place] Immature granulocytes (Bld) [#/Vol] 0.07 10*3/uL [place] Interpretation and review of laboratory results Abnormal [place] Lymphocytes (Bld) [#/Vol] 1.10 10*3/uL [place] Lymphocytes/100 WBC (Bld) 13 % Low 24 - 43 % [place] MCH (RBC) [Entitic mass] 29.4 pg 25.2 - 33.5 pg [place] MCHC (RBC) [Mass/Vol] 33.8 g/dL 28.4 - 34.8 g/dL [place] MCV (RBC) [Entitic vol] 87.0 fL 82.6 - 102.9 fL [place] Monocytes (Bld) [#/Vol] 0.96 10*3/uL [place] Monocytes/100 WBC (Bld) 11 % 3 - 12 % [place] Platelet mean volume (Bld) [Entitic vol] 11.2 fL 8.1 - 13.5 fL [place] Platelets (Bld) [#/Vol] 175 10*3/uL [place] Platelets (Bld) [#/Vol] NOT REPORTED [place] RBC (Bld) [#/Vol] 5.54 10*6/uL 4.21 - 5.77 m/uL [place] RBC morphology finding Nom (Bld) NOT REPORTED [place] Segmented neutrophils/100 WBC (Bld) 73 % High 36 - 65 % [place] Segs Absolute 6.21 [place] WBC (Bld) [#/Vol] 8.4 10*3/uL [place] WBC (Bld) [#/Vol] 0.0 10*3/uL 0.0 per 100 WBC [place] WBC Morphology NOT REPORTED [place] COVID-19, PCRon 03-19-2020 Interpretation and review of laboratory results Abnormal [place] SARS-CoV-2, Rapid DETECTED Abnormal Not Detected [place] Comment on above: Rapid NAAT: The [...] this assay. Fact sheet for Healthcare Providers: https://www.fda.gov/media/443042/download Fact sheet for Patients: https://www.fda.gov/media/195949/download Methodology: Isothermal Nucleic Acid Amplification Results reported to the appropriate Health Department Source .NASOPHARYNGEAL SWAB [place] CT CHEST PULMONARY EMBOLISM W CONTRASTon 03-19-2020 1. No pulmonary embolism. 2. Multifocal ground-glass opacities in the bilateral lungs with overall pattern of concern for underlying viral pneumonitis. 3. Hepatomegaly and diffuse steatosis in the abdomen, stable from remote imaging. [place] [facility], [facility] Incoming Radiant Results From [employer] - 03/19/2020 8:26 PM EST EXAMINATION: CTA [...] in the abdomen, stable from remote imaging. [place] EXAMINATION: CTA OF THE CHEST 03/19/2020 [...] Tissues/Bones: No skeletal abnormalities throughout the chest. [place] Lactic Acid, Plasmaon 2020 Lactate [Moles/Vol] 1.2 mmol/L 0.5 - 2.2 mmol/L [place] Lactic Acid, Whole Blood NOT REPORTED 0.7 - 2.1 mmol/L [place] Metabolic Panelon 03-19-2020 GFR/1.73 sq M predicted among non-blacks MDRD (S/P/Bld) [Vol rate/Area] [place] Comment on above: Average GFR for 40-4 9 years old: 99 mL/min/1.73sq m Chronic Kidney Disease: <60 mL/min/1.73sq m Kidney failure: <15 mL/min/1.73sq m eGFR calculated using average adult body mass. Additional eGFR calculator available at: http://www.Crowd Play/multiple_crcl_2012.htm Stage 1: Some kidney damage normal GFR Stage 2: Mild kidney damage GFR 60-89 Stage 3: Moderate kidney damage GFR 30-59 Stage 4: Severe kidney damage GFR 15-29 Stage 5: Severe kidney damage GFR <15 ESRD - chronic treatment by dialysis or transplant Otheron 03-19-2020 SARS-CoV-2 [place] Rapid influenza A/B antigens on 03-19-2020 Direct Exam NEGATIVE for Influenza A + B antigens. PCR testing to confirm this result is available upon request. Specimen will be saved in the laboratory for 7 days. Please call [phone] if PCR testing is indicated. [place] Special Requests NOT REPORTED [place] Specimen Description .NASOPHARYNGEAL SWAB [place] Troponinon 03-19-2020 Troponin I.cardiac [Mass/Vol] NOT REPORTED [place] Troponin T.cardiac [Mass/Vol] NOT REPORTED <0.03 ng/mL [place] Troponin, High Sensitivity 15 ng/L 0 - 22 ng/L [place] Comment on above: High Sensitivity Troponin values cannot be compared with other Troponin methodologies. Patients with high levels of Biotin oral intake (i.e >5mg/day) may have falsely decreased Troponin levels. Samples collected within 8 hours of biotin intake may require additional information for diagnosis. XR CHEST PORTABLEon 03-19-19 21 [facility], [facility] Incoming Radiant Results From [facility] - 03/19/2020 6:06 PM EST EXAMINATION: ONE XRAY VIEW OF THE CHEST 03/19/2020 5:58 pm COMPARISON: June 27, 2018 HISTORY: ORDERING SYSTEM PROVIDED HISTORY: dyspnea TECHNOLOGIST PROVIDED HISTORY: dyspnea FINDINGS: Mild edema. Heart and mediastinum normal. Bony thorax intact. IMPRESSION: Mild edema or pneumonitis [place] EXAMINATION: ONE XRAY VIEW OF THE CHEST 03/19/2020 5:58 pm COMPARISON: June 27, 2018 HISTORY: ORDERING SYSTEM PROVIDED HISTORY: dyspnea TECHNOLOGIST PROVIDED HISTORY: dyspnea FINDINGS: Mild edema. Heart and mediastinum normal. Bony thorax intact. [place] Mild edema or pneumonitis [place] Otheron 10-21-2019 No acute abnormalities seen in the left foot or left ankle [place] EXAMINATION: THREE XRAY VIEWS OF THE [...] medial malleolus most likely from old trauma. [place] Tito, pn Incoming Radiant Results From [facility] - 10/21/2019 4:26 PM EDT EXAMINATION: THREE [...] in the left foot or left ankle [place] Basic Metabolic Panel w/ Ref katrin to MGon 02-06-2019 Anion gap [Moles/Vol] 13 mmol/L 9 - 17 mmol/L [place] Bun/Cre Ratio 16 [place] Calcium [Mass/Vol] 8.4 mg/dL Low 8.6 - 10.4 mg/dL [place] Chloride [Moles/Vol] 99 mmol/L 98 - 107 mmol/L [place] CO2 [Moles/Vol] 23 mmol/L 20 - 31 mmol/L [place] Creatinine [Mass/Vol] 0.94 mg/dL 0.7 - 1.2 mg/dL [place] GFR >60 >60 mL/min [place] GFR Non- >60 >60 mL/min [place] Glucose [Mass/Vol] 130 mg/dL High 70 - 99 mg/dL [place] Interpretation and review of laboratory results Abnormal [place] Potassium [Moles/Vol] 3.7 mmol/L 3.7 - 5.3 mmol/L [place] Sodium [Moles/Vol] 135 mmol/L 135 - 144 mmol/L [place] Urea nitrogen [Mass/Vol] 15 mg/dL 6 - 20 mg/dL [place] CBCon 02-06-2019 Erythrocyte distribution width (RBC) [Ratio] 12.5 % 11.8 - 14.4 % [place] Hematocrit (Bld) [Volume fraction] 45.4 % 40.7 - 50.3 % [place] Hemoglobin (Bld) [Mass/Vol] 15.1 g/dL 13 - 17 g/dL [place] MCH (RBC) [Entitic mass] 29.8 pg 25.2 - 33.5 pg [place] MCHC (RBC) [Mass/Vol] 33.3 g/dL 28.4 - 34.8 g/dL [place] MCV (RBC) [Entitic vol] 89.5 fL 82.6 - 102.9 fL [place] Platelet mean volume (Bld) [Entitic vol] 10.4 fL 8.1 - 13.5 fL [place] Platelets (Bld) [#/Vol] 198 10*3/uL [place] RBC (Bld) [#/Vol] 5.07 10*6/uL 4.21 - 5.77 m/uL [place] WBC (Bld) [#/Vol] 0.0 10*3/uL 0.0 per 100 WBC M [place] WBC (Bld) [#/Vol] 10.7 10*3/uL [place] Culture Stoolon 02-06-2019 Campylobacter PCR NEGATIVE: No Campylobacter spp. (jejuni or coli) DNA Detected NEGATIVE: No Campylobacter spp. (jejuni or coli) DNA Detecte [place] E Coli Enterotoxigenic PCR NEGATIVE: No Enterotoxigenic E. coli (ETEC) Heat-labile and heat-stable (LT/ST) DNA Detected NEGATIVE: No Enterotoxigenic E. coli (ETEC) Heat-labile and [place] Plesiomonas Shigelloides PCR Negative NEGATIVE: No Plesionomas shigelloides DNA Detected [place] Salmonella PCR Negative NEGATIVE: No Salmonella spp. DNA Detected [place] Shigatoxin Gene PCR Negative NEGATIVE : No Shiga toxin-producing gene(s) Detected [place] Shigella Sp PCR Negative NEGATIVE: No Shigella spp. / EIEC DNA Detected [place] Specimen Description .FECES [place] Vibrio PCR NEGATIVE: No Vibrio (V. vulnificus, V, parahaemolyticus and V. cholerae) DNA Detected NEGATIVE: No Vibrio (V. vulnificus, V, parahaemolyticus and [place] Yersinia Enterocolitica PCR Negative NEGATIVE: No Yersinia enterocolitica DNA Detected [place] Metabolic Panelon 02-06-2019 GFR/1.73 sq M predicted among non-blacks MDRD (S/P/Bld) [Vol rate/Area] [place], [place] Comment on above: Stage 1: Some [...] body mass. Additional eGFR calculator available at: http://www.dentaZOOM.eDealya/multiple_crcl_2012.htm Microscopic Urinalysison Amorphous, UA NOT REPORTED None [facility], [place] Bacteria, UA TRACE Abnormal None [place], [place] Casts UA NOT REPORTED /LPF [place] Crystals UA NOT REPORTED None /HPF [facility] Epithelial Cells UA 0 TO 2 [place] Interpretation and review of laboratory results Abnormal [place] Mucus, UA TRACE Abnormal None [place] Other Observations UA NOT REPORTED NOT REQ. [place] RBC (U) [#/Vol] 0 TO 2 [facility] Renal Epithelial, Urine NOT REPORTED 0 /HPF [place] Trichomonas, UA NOT REPORTED None [place] WBC, UA None [place] Yeast, UA NOT REPORTED None [place], [place] - [place] Urinalysis Reflex to Culture on 02-06-2019 Bilirubin Urine Negative NEGATIVE [place] Color, UA YELLOW YELLOW [place], [place] Glucose, Ur Negative NEGATIVE [place] Interpretation and review of laboratory results Abnormal [place] Ketones Ql (U) TRACE Abnormal NEGATIVE [place] Leukocyte esterase Test strip Ql (U) Negative NEGATIVE [place] Nitrite, Urine Negative NEGATIVE [place] pH, UA 5.5 [place] Protein (U) [Mass/Vol] TRACE Abnormal NEGATIVE [place] Specific [place], UA >1.030 High [place], [place] Turbidity UA CLEAR CLEAR [place] Urinalysis Comments NOT REPORTED [place] Urine Hgb 1+ Abnormal NEGATIVE [place] Urobilinogen, Urine Normal Normal [place], [place] C DIFF TOXIN/ANTIGENon 02-05 C DIFF AG + TOXIN Negative NEGATIVE [facility] iRcardo [place] Comment on above: No C. difficile anti gen and Toxin Detected. Specimen Description .FECES [place] CBCon 02-05-2019 Erythrocyte distribution width (RBC) [Ratio] 12.0 % 11.8 - 14.4 % [place] Hematocrit (Bld) [Volume fraction] 49.7 % 40.7 - 50.3 % [place] Hemoglobin (Bld) [Mass/Vol] 17.2 g/dL High 13 - 17 g/dL [place] Interpretation and review of laboratory results Abnormal [place] MCH (RBC) [Entitic mass] 30.4 pg 25.2 - 33.5 pg [place] MCHC (RBC) [Mass/Vol] 34.6 g/dL 28.4 - 34.8 g/dL [place] MCV (RBC) [Entitic vol] 87.8 fL 82.6 - 102.9 fL [place] Platelet mean volume (Bld) [Entitic vol] 10.8 fL 8.1 - 13.5 fL [place] Platelets (Bld) [#/Vol] 233 10*3/uL [place], [place] RBC (Bld) [#/Vol] 5.66 10*6/uL 4.21 - 5.77 m/uL [place], [place] WBC (Bld) [#/Vol] 15.0 10*3/uL High [place] WBC (Bld) [#/Vol] 0.0 10*3/uL 0.0 per 100 WBC [place] CT ABDOMEN PELVIS W IV CONTR AST Additional Contrast? Noneon 02-05-2019 Tito, [facility] Incoming Radiant Results From [employer] - 02/05/2019 6:20 PM EST EXAMINATION: CT [...] no pathologic adenopathy. Bones/Soft Tissues: Normal IMPRESSION: [place] EXAMINATION: CT OF THE ABDOMEN AND [...] is no pathologic adenopathy. Bones/Soft Tissues: Normal [facility] Ileus [place] Comprehensive Metabolic Pane karan 02-05-2019 Albumin [Mass/Vol] 4.6 g/dL 3.5 - 5.2 g/dL [place] Albumin/Globulin [Mass ratio] 1.4 {ratio} [place] ALP [Catalytic activity/Vol] 88 U/L 40 - 129 U/L [place] ALT [Catalytic activity/Vol] 43 U/L High 5 - 41 U/L [place] Anion gap [Moles/Vol] 19 mmol/L High 9 - 17 mmol/L [place] AST [Catalytic activity/Vol] 23 U/L <40 [place] Bilirubin Ql (U) 1.37 mg/dL High 0.3 - 1.2 mg/dL [place] Bun/Cre Ratio 16 [place] Calcium [Mass/Vol] 9.4 mg/dL 8.6 - 10.4 mg/dL [place], [place] Chloride [Moles/Vol] 96 mmol/L Low 98 - 107 mmol/L [place] CO2 [Moles/Vol] 21 mmol/L 20 - 31 mmol/L [place] Creatinine [Mass/Vol] 0.9 mg/dL 0.7 - 1.2 mg/dL [place] GFR >60 >60 mL/min [place] GFR Non- >60 >60 mL/min [place] Glucose [Mass/Vol] 119 mg/dL High 70 - 99 mg/dL [place] Interpretation and review of laboratory results Abnormal [place] Potassium [Moles/Vol] 4.2 mmol/L 3.7 - 5.3 mmol/L [place] Protein [Mass/Vol] 8.0 g/dL 6.4 - 8.3 g/dL [place] Sodium [Moles/Vol] 136 mmol/L 135 - 144 mmol/L [place], [place] Urea nitrogen [Mass/Vol] 14 mg/dL 6 - 20 mg/dL [place], [place] Lactic Acid, Plasmaon 2018 Interpretation and review of laboratory results Abnormal [place] Lactate [Moles/Vol] 2.4 mmol/L High 0.5 - 2.2 mmol/L [place], [place] Lactic Acid, Whole Blood NOT REPORTED 0.7 - 2.1 mmol/L [place] Lipaseon 02-05-2019 Lipase [Catalytic activity/Vol] 32 U/L 13 - 60 U/L [place] Metabolic Panelon 02-05-2019 GFR/1.73 sq M predicted among non-blacks MDRD (S/P/Bld) [Vol rate/Area] [place], [place] Comment on above: Average GFR for 40-4 9 years old: 99 mL/min/1.73sq m Chronic Kidney Disease: <60 mL/min/1.73sq m Kidney failure: <15 mL/min/1.73sq m eGFR calculated using average adult body mass. Additional eGFR calculator available at: http://www.Crowd Play/multiple_crcl_2012.htm Stage 1: Some kidney damage normal GFR Stage 2: Mild kidney damage GFR 60-89 Stage 3: Moderate kidney damage GFR 30-59 Stage 4: Severe kidney damage GFR 15-29 Stage 5: Severe kidney damage GFR <15 ESRD - chronic treatment by dialysis or transplant Vital Signs Date Time Vital Sign Value Performing Clinician Rochelle cerrato 10-11-2022 15:03-0400 Diastolic blood pressure 81 mm[Hg] PHYSICIAN NO [facility] 10-11-2022 15:03-0400 Heart rate 75 /min PHYSICIAN NO [facility] 10-11-2022 15:03-0400 Respiratory rate 20 /min PHYSICIAN [facility] 10-11-2022 15:03-0400 SaO2% (BldA) [Mass fraction] 97 % PHYSICIAN NO [facility] 10-11-2022 15:03-0400 Systolic blood pressure 146 mm[Hg] PHYSICIAN NO [facility] 10-11-2022 12:17-0400 Body temperature 98.3 [degF] PHYSICIAN NO [facility] 10-11-2022 12:12-0400 Body height 175.26 cm PHYSICIAN NO [facility] 10-11-2022 12:12-0400 Body weight 128.6 kg PHYSICIAN NO [facility] 08-18-2022 12:04-0400 Body temperature 97.9 [degF] PHYSICIAN NO [facility] 08-18-2022 11:58-0400 Body height 177.8 cm PHYSICIAN NO [facility] 08-18-2022 11:58-0400 Body weight 129.36 kg PHYSICIAN NO [facility] 08-18-2022 11:58-0400 Diastolic blood pressure 115 mm[Hg] PHYSICIAN NO [facility] 08-18-2022 11:58-0400 Heart rate 107 /min PHYSICIAN NO [facility] 08-18-2022 11:58-0400 Respiratory rate 20 /min PHYSICIAN NO [facility] 08-18-2022 11:58-0400 SaO2% (BldA) [Mass fraction] 97 % PHYSICIAN NO [facility] 08-18-2022 11:58-0400 Systolic blood pressure 159 mm[Hg] PHYSICIAN NO [facility] 12-19-2021 18:32-0400 Body temperature 98.1 [degF] PHYSICIAN NO [facility] 12-19-2021 18:32-0400 Diastolic blood pressure 105 mm[Hg] PHYSICIAN NO [facility] 12-19-2021 18:32-0400 Heart rate 106 /min PHYSICIAN NO [facility] 12-19-2021 18:32-0400 Respiratory rate 20 /min PHYSICIAN NO [facility] 12-19-2021 18:32-0400 SaO2% (BldA) [Mass fraction] 96 % PHYSICIAN NO [facility] 12-19-2021 18:32-0400 Systolic blood pressure 153 mm[Hg] PHYSICIAN NO [facility] 12-19-2021 17:44-0400 Body height 177.8 cm PHYSICIAN NO [facility] 12-19-2021 17:44-0400 Body weight 134.55 kg PHYSICIAN NO [facility] 12-17-2021 09:40-0400 Body height 177.8 cm PHYSICIAN NO [facility] 12-17-2021 09:40-0400 Body temperature 98.1 [degF] PHYSICIAN NO [facility] 12-17-2021 09:40-0400 Body weight 134 kg PHYSICIAN NO [facility] 12-17-2021 09:40-0400 Diastolic blood pressure 108 mm[Hg] PHYSICIAN NO [facility] 12-17-2021 09:40-0400 Heart rate 114 /min PHYSICIAN NO [facility] 12-17-2021 09:40-0400 Respiratory rate 20 /min PHYSICIAN NO [facility] 12-17-2021 09:40-0400 SaO2% (BldA) [Mass fraction] 98 % PHYSICIAN NO [facility] 12-17-2021 09:40-0400 Systolic blood pressure 171 mm[Hg] PHYSICIAN NO [facility] 12-02-2021 14:50-0400 Body height 177.8 cm PHYSICIAN NO [facility] 12-02-2021 14:50-0400 Body temperature 98.6 [degF] PHYSICIAN NO [facility] 12-02-2021 14:50-0400 Body weight 133.2 kg PHYSICIAN NO [facility] 12-02-2021 14:50-0400 Diastolic blood pressure 102 mm[Hg] PHYSICIAN NO [facility] 12-02-2021 14:50-0400 Heart rate 117 /min PHYSICIAN NO [facility] 12-02-2021 14:50-0400 Respiratory rate 18 /min PHYSICIAN NO [facility] 12-02-2021 14:50-0400 SaO2% (BldA) [Mass fraction] 98 % PHYSICIAN NO [facility] 12-02-2021 14:50-0400 Systolic blood pressure 174 mm[Hg] PHYSICIAN NO [facility] 06-08-2021 14:28-0400 Heart rate 117 /min Fatoumata Tillman CNP Work Phone: [facility] 06-08-2021 14:28-0400 SaO2% (BldA) [Mass fraction] 95 % Fatoumata Tillman CNP Work Phone: [facility] 06-08-2021 14:22-0400 Body height 177.8 cm Fatoumata Sanchez APRN - [employer] CLEANER Work Phone: [facility] 06-08-2021 14:22-0400 Body mass index (BMI) [Ratio] 44.77 kg/m2 Fatoumata Sanchez APRN - [employer] CLEANER Work Phone: [facility] 06-08-2021 14:22-0400 Body temperature 98.1 [degF] Fatoumata Sanchez APRN - [employer] CLEANER Work Phone: [facility] 06-08-2021 14:22-0400 Body weight 141.52 kg Fatoumata Sanchez [employer] - [employer] Work Phone: [facility] 06-08-2021 14:22-0400 Diastolic blood pressure 120 mm[Hg] Fatoumata Sanchez APRN - BUS CLEANER Work Phone: [facility] 06-08-2021 14:22-0400 Respiratory rate 18 /min Fatoumata Sanchez APRN - [employer] CLE[employer]ER Work Phone: [facility] 06-08-2021 14:22-0400 Systolic blood pressure 170 mm[Hg] Fatoumata Sanchez APRN - [employer] CLEANER [facility] 03-19-2020 23:45-0500 BP Diastolic 101 mm[Hg] [facility] [place] 03-19-2020 23:45-0500 BP Systolic 148 mm[Hg] [facility] [place] 03-19-2020 23:45-0500 Pulse (Heart Rate) 117 /min [facility] 03-19-2020 23:45-0500 Pulse Oximetry 94 % [facility] [place] 03-19-2020 23:45-0500 Respiratory Rate 23 /min [facility] 03-19-2020 19:57-0500 Body Temperature 99.9 [degF] [facility] [employer] [place] , [place] 03-19-2020 17:38-0500 BMI (Body Mass Index) 45.92 kg/m2 [facility], [place] 03-19-2020 17:38-0500 Body weight 145.15 kg [facility] [place] 03-19-2020 17:38-0500 Height 177.8 [facility] [place] 10-21-2019 17:46-0400 BP Diastolic 103 mm[Hg] [facility] [place] 10-21-2019 17:46-0400 BP Systolic 163 mm[Hg] [facility] [place] 10-21-2019 17:37-0400 Pulse (Heart Rate) 109 /min [facility] 10-21-2019 17:37-0400 Respiratory Rate 18 /min [facility] 10-21-2019 16:02-0400 BMI (Body Mass Index) 44.3 kg/m2 [facility] [place] 10-21-2019 16:02-0400 Body Temperature 97 [degF] [facility] 10-21-2019 16:02-0400 Body weight 136.08 kg [place] 10-21-2019 16:02-0400 Pulse Oximetry 96 % [place] 02-07-2019 08:18-0500 Body Temperature 97.7 [degF] Dat Jean Baptiste [facility], [place] 02-07-2019 08:18-0500 BP Diastolic 102 mm[Hg] Dat Jean Baptiste [facility] , [place] 02-07-2019 08:18-0500 BP Systolic 132 mm[Hg] Dat Jean Baptiste [facility] [place] 02-07-2019 08:18-0500 Pulse (Heart Rate) 76 /min Dat Jean Baptiste [facility] 02-07-2019 08:18-0500 Pulse Oximetry 96 % Dat Jean Baptiste [facility] [place] 02-07-2019 08:18-0500 Respiratory Rate 16 /min Dat Jean Baptiste [facility] 02-07-2019 04:51-0500 BMI (Body Mass Index) 42.06 kg/m2 [facility], [place] 02-07-2019 04:51-0500 Body weight 129.18 kg [facility] [place] 02-06-2019 08:10-0500 Height 175.3 cm [place] Encounters Encounter Date Encounter Type Care Provider Facility Start: 07-04-2023 End: 07-04-2023 Emergency department patient visit [facility] Start: 11-17-2022 End: 11-17-2022 ambulatory [facility] Start: 10-31-2022 End: 10-31-2022 ambulatory [facility] Start: 10-11-2022 End: 10-11-2022 Emergency department patient visit PHYSICIAN NO [facility] Work Phone: Start: 08-18-2022 End: 08-18-2022 Emergency department patient visit PHYSICIAN NO [facility] Work Phone: Start: 05-15-2022 End: 05-16-[address] NONE LISTED REQUEST Facility:H1 Start: 05-11-2022 End: 05-11-[address] NONE LISTED REQUEST Facility:H1 Start: 01-21-2022 End: 01-21-2022 ambulatory PHYSICIAN NO [facility] Work Phone: Start: 01-21-2022 End: 01-21-2022 Discharged Recurring PHYSICIAN NO [facility]-[employer] [facility] [employer] [address] Start: 12-19-2021 End: 12-19-2021 Emergency department patient visit PHYSICIAN NO [facility] Start: 12-17-2021 End: 12-17-2021 Emergency department patient visit PHYSICIAN NO [facility] Start: 12-02-2021 End: 12-02-2021 Emergency department patient visit PHYSICIAN NO [facility] Start: 06-08-2021 End: 06-08-2021 Emergency department patient visit Fatoumata Sanchez APRN - BUS CLEANER Work Phone: [facility] Comment on above: Enteritis (Primary D x) Start: 03-19-2020 End: 03-20-2020 Emergency department patient visit [facility] Comment on above: COVID-19 (Primary Dx ) Start: 10-21-2019 End: 10-21-2019 Emergency department patient visit [facility] Comment on above: Left Achilles tendin itis (Primary Dx) Start: 02-05-2019 End: 02-07-2019 Evaluation and management of inpatient Dat Jean Baptiste Work Phone: [facility] MED SURG Comment on above: Ileus [...] abdomen & pelvis w/contrast material Fatoumata Sanchez CONSTRUCTION MATERIALS TESTER - BUS CLEANER Work Phone: Start: 06-08-2021 Comprehensive metabo lic panel Fatoumata Sanchez CONSTRUCTION MATERIALS TESTER - BUS CLEANER Work Phone: Start: 03-19-2020 Ct thorax w/contrast material Arabella Blandon Work Phone: Start: 03-19-2020 COVID-19 [facility] Work Phone: Start: 03-19-2020 Iaadiadoo influenza [facility] Work Phone: Start: 03-19-2020 Assay of lactate [...] Start: 02-06-2019 Urinalysis microscop ic only Arabella Barber Work Phone: Start: 02-06-2019 Urnls dip stick/tabl et rgnt auto w/o microscopy [employer] Work Phone: Start: 02-05-2019 Cul bact stool aerob ic isol salmonella&shigell [employer] Work Phone: Start: 02-05-2019 Toxin/antitoxin assa y tissue culture [employer] Work Phone: Start: 02-05-2019 Ct abdomen & pelvis w/contrast material Arabella Barber Work Phone: Start: 02-05-2019 Assay of lactate Arabella Barber Work Phone: Start: 02-05-2019 Assay of lipase Arabella neena Work Phone: Start: 02-05-2019 Blood count complete automated Arabella Barber Work Phone: Start: 02-05-2019 Comprehensive metabo lic panel Arabella [employer] Work Phone: SARS Antigen (LFIA) PHYSICIA N NO FAMILY Plan of Treatment Date Care Activity Detail Author Start: 06-08-2022 Creatinine measurement Creatinine mo [facility] Start: 06-08-2022 Potassium monitoring Potassium monit [facility] Start: 03-19-2021 Creatinine measurement Creatinine mo [place], [place] Start: 03-19-2021 Potassium monitoring Potassium monit [place], [place] Start: 11-11-2020 Influenza vaccination Flu vaccine (# 1) [facility] Start: 02-07-2020 Creatinine measurement Creatinine mo [place] Start: 02-07-2020 Potassium monitoring Potassium monit [place], [place] Start: 11-12-2019 Influenza vaccination Flu vaccine (# 1) [place], [place] Start: 06-28-2019 Creatinine monitoring Creatinine mon itoring [place] Start: 06-28-2019 Potassium monitoring Potassium monit [place] Start: 11-11-2018 Influenza vaccination Flu vaccine (# 1) [place], [place] Start: 2018 Diabetes screen Diabetes screen [place], [place] Start: 2018 Lipid panel Lipid screen [facility] Start: 2018 Lipid screen Lipid screen [place], [place] Start: 2013 Diabetes screen Diabetes screen [facility] Start: 1997 DTaP/Tdap/Td vaccine (1 - Tdap) DTaP/Tdap/Td vaccine (1 - Tdap) [facility] Start: 1993 HIV screen HIV screen [place], [place] Start: 1993 HIV screening HIV screen [facility] Start: 1990 Depression Screen Depression Screen [facility] Start: 1989 DTaP/Tdap/Td vaccine (1 - Tdap) DTaP/Tdap/Td vaccine (1 - Tdap) [place], [place] Start: 1983 COVID-19 Vaccine (1) COVID-19 Vaccin e (1) [facility] Start: 1978 Hepatitis C screening Hepatitis C sc reen [facility] End: 03-19-2020 Culture, Blood 1 Culture, Blood 1 Microbiology STAT One Time for 1 Occurrences starting 03/19/2020 until 03/19/2020 [place] Comment on above: One Time for 1 Occur rences starting 03/19/2020 until 03/19/2020 Culture, Blood 1 Culture, Blood 1 Microbiology STAT 03/19/2020 6:00 PM EST [place], [place] EKG 12 Lead EKG 12 Lead ECG STAT 03/19/2020 5:53 PM [place], [place] Initiate Oxygen Ther apy Protocol Initiate Oxygen Therapy Protocol Respiratory Care Routine Daily until discontinued starting 02/05/2019 [place] Comment on above: Daily until disconti nued starting 02/05/2019 Nasal Cannula Oxygen Nasal Cannu la Oxygen Respiratory Care STAT Daily until discontinued starting 03/19/2020 [facility] [place] Comment on above: Daily until disconti nued starting 03/19/2020 Patient Education [facility] Work Phone: Patient referral [facility] Work Phone: End: 02-05-2019 Pulse Oximetry Spot Check Pulse Oximetry Spot Check Respiratory Care Routine One Time for 1 Occurrences starting 02/05/2019 until 02/05/2019 [facility] [place] Comment on above: One Time for 1 Occur rences starting 02/05/2019 until 02/05/2019 End: 06-08-2021 Urinalysis with Microscopic Urinalysis with Microscopic Lab STAT One Time for 1 Occurrences starting 06/08/2021 until 06/08/2021 [facility] Work Phone: Comment on above: One Time for 1 Occur rences starting 06/08/2021 until 06/08/2021 Payers Date Payer Category Payer Unknown [id number] 1980 Unknown [id number] 1961 Self-pay 1961 Worker's Compensation [id number] Unknown [id number] Social History Date Type Detail Facility Start: 10-21-2019 End: 10-11-2022 Tobacco smoking status NHIS Former smoker [place], [place] Start: 04-05-2015 End: 10-21-2019 Tobacco use and exposure Never used [facility] [place] Start: 10-21-2019 End: 06-08-2021 Alcohol intake Current non-drinker of alcohol (finding) [place], [place] Start: 1980 Sex Assigned At Not on file M [place], [place] Start: 05-29-2021 End: 06-08-2021 Exposure to SARS-CoV-2 (event) Not sure Kellie [facility] SHABANA RUTH Start: 12-02-2021 End: 12-19-2021 Tobacco smoking status NHIS Never smoked tobacco (finding) [facility] Start: 1980 Sex Assigned At Male F [facility] Clinical Notes 06-08-2021 to 02-01-2023 InstructionsAttachments Note Date & Type Note Facility 02-01-2023 Note This report has been cancelled. [facility] 02-01-2023 Note This report has been cancelled. [facility] 11-17-2022 Note Cardiovascular Labor atory Report [...] be checked in a week Follow-up with [facility] in the [facility] in the next 2 to 3 [...] left radial artery was obtained. A 6 Cameroonian glide sheath was inserted without difficulty. Bilateral [...] INDICATIONS: Abnormal stress test, reduced ejection fraction [facility] 11-17-2022 Note Patient: Lawson stark Procedure Information Date/Time: 11/17/22 1030 Procedure: Coronary angiography (Bilateral) Location: [facility] FERMENTOLOGIST 3 / [facility] VASCULAR [facility] (Cath) Providers: Rafat Michelle [...] consented to blood products. Additional Equipment Requests [facility] 10-31-2022 Note [facility] Cardiology Clinic Note Chief Complaint: Patient here for follow up [facility] for chest pain. He was seen [...] pending the above Rafat Michelle MD, MPH, [facility], [facility], [facility] Interventional Cardiology Pager Email: [email or web address] 06-08-2021 Hospital Discharge instructions Fatoumata Sanchez, CONSTRUCTION MATERIALS TESTER - BUS CLEANER - 06/08/2021 Increase your fluid intake. Take Bentyl as prescribed. Follow-up with PCP for reevaluation in the next couple of days. Avoid dairy, spicy and fatty foods for the next week. Return here for increased pain, fever, difficulty breathing, vomiting or new or worsening signs or symptoms. The following attachments cannot be sent through Care Everywhere.Gastroenteritis (Bolivian)documented in this encounter [employer] Work Phone: Evaluation note Diagnosis Enteritis- Primary Other and unspecified noninfectious gastroenteritis and colitis documented in this encounter [employer] Work Phone: evaluation noteNo assessment information available [facility] [employer] Work Phone: Hospital Discharge instructions Additional Instructions Rest ice elevate Use the wrist splint for comfort Take ibuprofen every 6 hours for discomfort Follow-up with either [facility] or [facility] Follow-up with [facility] especially if not getting better [facility] [employer] Work Phone: Hospital Discharge instructions Additional Instructions Return for new or worsening symptoms [facility] [employer] Work Phone: Hospital Discharge instructions Additional Instructions Please return to emergency department for any new or worrisome symptoms including any weakness, numbness, headache, vision changes. Follow-up with your family physician as soon as possible.[facility] [employer] Work Phone: Discharge Instructions * Attachments The following attachments cannot be sent through Care Everywhere. * Tendon Injury (Tendinopathy) (Bolivian) documented in this encounter* Instructions* Lobito Sidhu [...] Everywhere. * Coronavirus Disease (COVID-19): General Info (Bolivian) * Coronavirus Disease (COVID-19): Isolation (Bolivian) documented in this encounter* Instructions* Bambi Segal [...] Where can you learn more? Go to [email or web address] and sign in to your [employer] account. Enter M933 in the Search Health Information box to learn more about Learning About Ileus. If you do not have an account, please click on the Sign Up Now link. Current as of: January 17, 2018 Content Version: [id number] [employer]. Care instructions adapted under license by [employer]. If youhave questions about a medical condition or this instruction, always ask your healthcare professional. [employer] disclaims any warranty or liability for your use of this information. 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 Advance Directives and Living Will Power of Pin Maker Latest Code Status on File Code Status Date Activated Date Inactivated Comments Full Code 02/05/2019 9:40 PM 02/07/2019 3:36 PM Full Code 06/22/2016 5:58 AM 06/22/2016 7:53 PM Documents on File Type Date Recorded 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 Internal Medicine Discharge Summary Patient ID: Lawson Lopez [id number] Admission date: 02/05/2019 Discharge date: 02/07/2019 [...] but will be referred to [facility]. Discharge Exam: GEN: Awake, alert and oriented [...] stable Disposition: Discharge to Home Discharge Medications: MaoKarlyLawson J Home Medication Instructions [id number] Printed on:02/07/19 1147 Medication Information amLODIPine (NORVASC) 5 MG tablet Take 1 tablet by mouth daily Patient Instructions: Activity: activity as tolerated Diet: regular diet Wound Care: none needed Follow up with [facility] in 1-2 weeks CORE MEASURES on Discharge (if applicable) DORCAS/ARB in CHF: N/A ASA in MD: N/A Statin in MD: N/A Statin in CVA: N/A Antiplatelet in CVA: N/A Total time spent on discharge services: 25 minutes Including the following activities: Evaluation and Management of patient Discussion with patient and/or surrogate about current care plan Coordination with Case Management and/or [employer] Coordination of care with Consultants (if applicable) [...] of care. To: __Dr. Jean Baptiste From: [facility] Sender:_KSchwochowRN Phone Number:_[phone] This request is: Urgent - No Information [...] Lleus Met with: Patient PCP: None. Chose [facility] Payment Source: Private. No insurance. Advance Directives: None Code Status: Full Mental Status: Alert and oriented Living Arrangement: Patient lives at home in [place] with a roommate Support Systems: Roommate and [...] Needs/Discharge Plan: Patient will return home to [place] where he resides with a roommate. He [...] 5. Fluid Accumulation-No significant fluid accumulation, 6. Financial Dealers Strength-Not measured Nutrition Risk Level: Moderate Nutrient Needs: Estimated Daily Total Kcal: 1080-8272(12-17) Estimated Daily Protein (g): 95-109(1.3-1.5) Estimated Daily [...] Weight Change: , 2% loss from 290# Bode Body Wt: 160 lb (72.6 kg), % Bode Body 178% BMI Classification: BMI > or [...] Patient/Family Education, Monitor Bowel Function Contact Number: [id number] Marija Horta RN - 02/06/2019 4:31 AM [...] oriented to room, pr watching tv when news reporter left room documented in this encounter [...] FAMILY Primary Care Provider Active Jenelle Judge , CERTIFIED FIRST ASSISTANT- Emergency Provider Active Team Status: Inactive Member Role Status Dates PHYSICIAN NO FAMILY Primary Care Provider Active Elian Elizondo APRN Emergency Provider Active Team Status: Active Member Role Status Dates PHYSICIAN NO FAMILY Primary Care Provider Active Team Status: Active Member Role Status Dates Isabel Rodas , GPS NAVIGATION INSTALLER-C Primary Care Provider Active Team Status: Inactive Member Role Status Dates PHYSICIAN NO FAMILY Primary Care Provider Active Kris Narvaez DO Emergency Provider Active Team Status: Inactive Member Role Status Dates Isabel Rodas , GPS NAVIGATION INSTALLER-C Primary Care Provider Active Socorro Osullivan MD [...] DATE CREATED AUTHOR AUTHOR'S ORGANIZ ATION 03/04/2023 [facility] DATE CREATED AUTHOR AUTHOR'S ORGANIZ ATION 07/06/2023 [facility] DATE CREATED AUTHOR AUTHOR'S ORGANIZ ATION 02/08/2024 [facility] FOR RECORDS PERTAINING TO PATIENTS [...] BE BASED ON THE PRIMARY CLINICAL RECORDS. [facility] [employer] [facility]. provides no warranty or guarantee of the accuracy or completeness of information in this document.
[2024-02-12 22:31] VITALS: BP 150/102; PULSE 109; TEMP 37.1; O2SAT 95; BMI 45.6
--- NOTE | 2024-02-12 22:36 | XR_ITS ---
The [address] [address] Patient Name: LAWSON LOPEZ MRN: [id number] date: 1980 Sex: M Assigned Patient Location: ER Current Patient Location: ER Accession/Order Number: [id number] Exam Date: 02/12/2024 22:51 Report Date: 02/12/2024 23:31 At the request of: ADAN CREWS Procedure: XR toe RT min 2V EXAM: XR toe RT min 2V HISTORY: r great toe pain COMPARISON: None. TECHNIQUE: 3 views of the right great toe are performed. FINDINGS: There is no acute fracture. The bony structures are intact. Joint spaces are maintained. Unremarkable soft tissues. XR/XR toe RT min 2V IMPRESSION: No acute bony abnormality. Electronically authenticated by: HERMINIA LANE Date: 02/12/2024 23:31
--- NOTE | 2024-02-12 22:45 | ED_ITS ---
HPI HPI - General Adult General Chief complaint: Extremity Injury, Lower Stated complaint: LE INJURY Time Seen by Provider: 02/12/24 22:30 Source: patient Mode of arrival: walk-in Limitations: no limitations History of Present Illness HPI narrative: Patient presenting to the emergency ferment for evaluation of right great toe pain. Patient states that last night approximately 24 hours ago he stubbed it against a baby dresser. Has been having pain around since that time. No redness, swelling is minor. Patient states that the pain is right at the joint itself. No other complaints at this time Related Data Home Medications ?Medication ?Instructions ?Recorded ?Confirmed ketorolac 10 mg tablet 10 mg PO Q8H PRN pain 01/16/23 01/30/24 orphenadrine citrate 100 mg 100 mg PO BID PRN pain 01/16/23 01/30/24 tablet,extended release Previous Rx's ?Medication ?Instructions ?Recorded amlodipine 10 mg tablet 10 mg PO DAILY #30 tabs 09/06/22 aspirin 81 mg chewable tablet 81 mg PO DAILY #30 tabs 09/06/22 atorvastatin 40 mg tablet (Lipitor) 40 mg PO DAILY #30 tabs 09/06/22 metoprolol tartrate 50 mg tablet 25 mg (1/2 x 50 mg) PO BID #30 tabs 09/06/22 (Lopressor) ibuprofen 800 mg tablet 800 mg PO Q8H PRN pain #20 tabs 12/28/22 jdhqpimuerzamru-ovgbjspidibicki-CK 5 ml PO Q4H PRN cold symptoms #118 04/07/23 2 mg-30 mg-10 mg/5 mL oral syrup mL (Bromfed DM) doxycycline monohydrate 100 mg 100 mg PO BID 7 days #14 caps 04/07/23 capsule ondansetron 4 mg disintegrating 4 mg PO Q8H PRN nausea and 04/07/23 tablet vomiting 4 days #16 tabs ibuprofen 800 mg tablet 800 mg PO Q8H PRN pain #20 tabs 07/20/23 pantoprazole 40 mg tablet,delayed 40 mg PO DAILY 6 weeks #42 tabs 09/25/23 release (Protonix) methocarbamol 500 mg tablet 500 mg PO Q8H PRN muscle pain #10 01/26/24 tabs etodolac 400 mg tablet 400 mg PO Q8H PRN pain #20 tabs 01/30/24 Allergies Allergy/AdvReac Type Severity Reaction Status Date / Time amoxicillin Allergy Verified 08/05/23 21:09 prednisone Allergy Verified 08/05/23 21:09 narcotic AdvReac Severe Uncoded 08/05/23 21:09 Opioid HPI Opioid Management Most Recent Opioid Data: Last Pain Scale 6 02/12/24 22:55 02/12/24 Review of Systems ROS Narrative Negative unless otherwise stated in HPI PFSH PFSH Medical History (Updated 02/12/24 @ 23:47 by Shai Calvin MD) Syncope and collapse ?R55 - Syncope and collapse (ICD-10) Tobacco abuse ?Z72.0 - Tobacco use (ICD-10) Dyslipidemia ?E78.5 - Hyperlipidemia, unspecified (ICD-10) HTN (hypertension) ?I10 - Essential (primary) hypertension (ICD-10) Social History (Updated 09/05/22 @ 12:28 by STVEEN FLORES) Smoking status: Former smoker Non-prescribed substance use: former substance user Non-prescribed substance use details: cocaine Little interest or pleasure in doing things: not at all Feeling down, depressed, or hopeless: not at all Exam Narrative Exam Narrative: General: NAD, AAOx3, no distress Ext: Right great toe no deformities, no hematoma, no swelling, no subungual hematoma, tenderness at the MTP joint Constitutional Vital Signs, click to edit/add: Last Vital Signs Temp 98.7 F 02/12/24 22:31 Pulse 109 H 02/12/24 22:31 Resp 18 02/12/24 22:31 BP 150/102 H 02/12/24 22:31 Pulse Ox 95 02/12/24 22:31 O2 Del Method Room Air 02/12/24 22:31 Course Vital Signs Vital signs: Vital Signs Temperature 98.7 F 02/12/24 22:31 Pulse Rate 109 H 02/12/24 22:31 Respiratory Rate 18 02/12/24 22:31 Blood Pressure 150/102 H 02/12/24 22:31 Pulse Oximetry 95 02/12/24 22:31 Oxygen Delivery Method Room Air 02/12/24 22:31 Temperature 98.7 F 02/12/24 22:31 Pulse Rate 109 H 02/12/24 22:31 Respiratory Rate 18 02/12/24 22:31 Blood Pressure 150/102 H 02/12/24 22:31 Pulse Oximetry 95 02/12/24 22:31 Oxygen Delivery Method Room Air 02/12/24 22:31 Medical Decision Making MDM Narrative Medical decision making narrative: MDM Patient with history as above presented with [right great toe pain]. History obtained from patient. Patient was nontoxic, stable. Ambulatory. Exam as above. Independently reviewed imaging. Reviewed external records. Differential diagnosis considered. Overall presentation is consistent with toe contusion Pt who presented for complaints of pain after minor trauma. Patient on exam was well appearing, hemodynamically stable. Given trauma and tenderness, xray imaging was done without evidence of fracture. At this point in time patient has likely contusion. Recommend ICE, motrin and rest. Will see PCP in 7-10 days for repeat imaging should patient still be having pain. Advanced guidance has been given. Vss, pex is benign at this time. Pt to fu with pcp 1-2 days for reeval, rter should sx worsen, persist or become worrysome in any way. Pt expressed understanding and agreement with plan of care at this time. Will fu as planned. Pt stable for discharge. Discharge Plan Discharge Chief Complaint: Extremity Injury, Lower Clinical Impression: Contusion of toe Patient Disposition: Home, Self-Care Prescriptions / Home Meds: No Action aspirin 81 mg tablet,chewable 81 mg PO DAILY Qty: 30 0RF amlodipine 10 mg tablet 10 mg PO DAILY Qty: 30 0RF metoprolol tartrate [Lopressor] 50 mg tablet 25 mg PO BID Qty: 30 0RF atorvastatin [Lipitor] 40 mg tablet 40 mg PO DAILY Qty: 30 0RF ibuprofen 800 mg tablet 800 mg PO Q8H PRN (Reason: pain) Qty: 20 0RF ketorolac 10 mg tablet 10 mg PO Q8H PRN (Reason: pain) orphenadrine citrate 100 mg tablet extended release 100 mg PO BID PRN (Reason: pain) [id number]-bghckdwjr-FB [Bromfed DM] 2-30-10 mg/5 mL syrup 5 ml PO Q4H PRN (Reason: cold symptoms) Qty: 118 0RF doxycycline monohydrate 100 mg capsule 100 mg PO BID 7 Days Qty: 14 0RF ondansetron 4 mg tablet,disintegrating 4 mg PO Q8H PRN (Reason: nausea and vomiting) 4 Days Qty: 16 0RF pantoprazole [Protonix] 40 mg tablet,delayed release (DR/EC) 40 mg PO DAILY 42 Days Qty: 42 0RF methocarbamol 500 mg tablet 500 mg PO Q8H PRN (Reason: muscle pain) Qty: 10 0RF ibuprofen 800 mg tablet 800 mg PO Q8H PRN (Reason: pain) Qty: 20 0RF etodolac 400 mg tablet 400 mg PO Q8H PRN (Reason: pain) Qty: 20 0RF Print Language: Romanian Instructions: Contusion in Adults (ED) Additional Instructions: Follow-up with your PCP in the next 1 to 2 days. Return to the emergency department should symptoms worsen or become worrisome in any way. Referrals: ELIAS DUKES [Primary Care Provider] - 1 week
[2024-02-12] MEDS: KETOROLAC TROMETHAMINE 30 MG/ML VIAL 15 MG IM (22:55)
== END 2024-02-13 00:32 | disposition home or self-care (01) ==
PROVIDERS: Emergency Provider Emergency Medicine; PCP Nurse Practitioner
DX: S90.111A Contusion of right great toe without damage to nail, initial encounter (principal); Z87.891 Personal history of nicotine dependence; F14.91 Cocaine use, unspecified, in remission; W22.03XA Walked into furniture, initial encounter
CPT/HCPCS: 73660; 96372; 99284; J1885

== ENCOUNTER 2024-02-26 07:46 | Emergency (ER) | payer OTHER, SELFPAY ==
[2024-02-26] VITALS (9 sets, daily range): BP systolic 148–178; BP diastolic 103–109; PULSE 68–87; TEMP 36.1; O2SAT 98; BMI 45.6
--- OUTSIDE RECORDS SUMMARY | 2024-02-26 08:03 | XMS_ITS | CCD ---
Author Organization [facility] Care Team Providers Care Glass Beveller Name Role Phone Unavailable Primary Care Provider Unavailabl e Carina Hernandez Primary Care Provider Unavailable Primary Care Provider Unavailabl e NO FAMILY, PHYSICIAN Primary Care Provider Unava ARSALAN Kamara Emergency Provider [phone] [place], MEDIA SERVICES DIRECTOR- Jenelle E Emergency Provider [phone] MEENAKSHI Schmidt Emergency Provider [phone] NO FAMILY, PHYSICIAN Primary Care Provider Unava ARSALAN Kamara Emergency Provider [phone] [place], [facility] Jenelle E Emergency Provider MEENAKSHI Schmidt Emergency Provider REQUEST, NONE LISTED Primary Care Unavaila ble KIM, KATE Admitting Unavailable KIM, KATE Attending Unavailable ELADIA ALVAREZYL Consulting Unavailable AMAN PURCELL Consulting Unavailable NATHAN, NONE LISTED Primary Care Unavaila ble JESUS ., JOSEFINA Admitting Unavailable JESUS ., JOSEFINA Attending Unavailable LIDIA .JOHANNY Consulting Unavailabl e [place], James Consulting Unavailable NO FAMILY, PHYSICIAN Primary Care Provider Unava ilDO Kris Muse Emergency Provider MARIEL Rodas Primary Care Provider MD Socorro Osullivan Emergency Provider ELTAHAWY, EHAB Attending Unavailable [place], EHAB Admitting Unavailable [place], EHAB Attending Unavailable [place], EHAB Referring Unavailable [place], Jenelle E Admitting Unavailable [place], Jenelle E Attending Unavailable Isabel Rodas Primary Care Unavailable Allergies Allergy Classification Reported Allergen(s) Allergy Type Date of Onset Reaction(s) Facility (10 sources) Amoxicillin; Translations: [AMOXICILLIN] Drug Allergy 6 Unknown Reaction [place] (5 sources) fentaNYL; Translations: [FENTANYL] Drug Allergy 9 [place] (10 sources) predniSONE; Translations: [PREDNISONE] Drug Allergy 6 Other (See Comments) [place] (1 source) Amoxicillin Drug Allergy 3 [facility] Repository (1 source) predniSONE Drug Allergy 3 [facility] Repository (1 source) amLODIPine; Translations: [AMLODIPINE] Drug Allergy 3 [facility] Repository (1 source) Amoxicillin Drug Allergy 4 [facility] Repository (1 source) predniSONE Drug Allergy 4 [facility] Repository Medications Current Medications Medication Drug [...] hours Ibuprofen Discontinued 800 MG PO Q6H 20 December 17, 2021 12:00am August 18, 2022 [...] Translations: [Diarrhea, unspecified] Onset: 07-04-2023 Episodic Other injuries and conditions due to external causes (1 source) Unspecified injury of right foot, initial encounter; Translations: [Unspecified injury of right foot, initial encounter] Onset: 02-15-2024 Episodic Other nervous system disorders (1 source) [...] Name Value Interpretation Reference Range Facil ity XR foot RT min 3V*on 024 XR foot RT min 3V* [facility] Main [address] [address] XRay Report Signed Patient: Henrik Cavanaugh MR#: [id number] : 1980 Acct:[id number] Age/Sex: 44 / M ADM Date: 02/15/24 Loc: ER Room: Type: [facility] ER Attending Dr: Copies to: GRISELDA Serrato Ordering Provider: GRISELDA Serrato Date of Service: 02/15/24 XR/XR foot RT min 3V*: attn great toe 3 views right foot plain film COMPARISON:None HISTORY: Right great toe injury ACUTE FINDINGS: tuft fracture identified. Adjacent soft tissue swelling. DEGENERATIVE CHANGE: Unremarkable SOFT TISSUE FINDINGS: The present JOINT EFFUSION: None POSTOP CHANGES: None BONE MINERALIZATION: Adequate XR/XR foot RT min 3V* IMPRESSION: first toe tuft fracture. Impression dictated by: Tejinder Alcantara M.D.02/15/2024 12:47 PM Dictation Location: [place] [address] Transcribed By: [facility] 02/15/24 1247 Dictated By: Tejinder Alcantara DO 02/15/24 1245 Signed By: 02/15/24 1247 Normal [facility] CBC with Diffon 07-04-2023 Abs. Basophil 0.06 k/uL Normal 0.00-0.20 [facility] Comment on above: Performed By: #### C LINH LIP, CP #### [facility] [address] [place] [address] [place] [address] Break Out Man: Alex Amador MD Abs.Imm.Granulocyte 0.03 k/uL Normal 0.00-0.30 [facility] Comment on above: Performed By: #### C DP LIP, CP #### [facility] [address] [place] [address] Break Out Man: Alex Amador MD Abs.Neutrophil (Seg) 7.00 k/uL Normal 1.50-8.10 [facility] Comment on above: Performed By: #### C DP LIP, CP #### [facility] [address] [place] [facility]83 Break Out Man: Alex Amador MD Basophils/100 WBC (Bld) 1 % Normal 0-2 [facility] Comment on above: Performed By: #### C DP, LIP, CP #### [address] [place], [facility] Break Out Man: Alex Amador MD Eosinophils (Bld) [#/Vol] 0.17 10*3/uL Normal 0.00-0.44 [facility] Comment on above: Performed By: #### C DP, LIP, CP #### [address] [place] [address] Break Out Man: Alex Amador MD Eosinophils/100 WBC (Bld) 2 % Normal 1-4 [facility] Comment on above: Performed By: #### C DP LIP, CP #### [address] [place], [place] [address] Break Out Man: Alex Amador MD Erythrocyte distribution width (RBC) [Ratio] 12.4 % Normal 11.8-14.4 [facility] Comment on above: Performed By: #### C DP LIP, CP #### [address] [place] [id number] Break Out Man: Alex Amador MD Hematocrit (Bld) [Volume fraction] 44.6 % Normal 40.7-50.3 [facility] Comment on above: Performed By: #### C DP, LIP, CP #### [address] [place] [id number] Break Out Man: Alex Amador MD Hemoglobin (Bld) [Mass/Vol] 15.5 g/dL Normal 13.0-17.0 [facility] Comment on above: Performed By: #### C DP, LIP, CP #### [address] [place] [id number] Break Out Man: Alex Amador MD Immature granulocytes/100 WBC (Bld) 0 % Normal 0 [facility] Comment on above: Performed By: #### C LINH LIP, CP #### [facility] [address] [place], [place] [id number] Break Out Man: Alex Amador MD Lymphocytes (Bld) [#/Vol] 1.59 10*3/uL Normal 1.10-3.70 [facility] Comment on above: Performed By: #### C DP LIP, CP #### [address] [place], [place] [id number] Break Out Man: Alex Amador MD Lymphocytes/100 WBC (Bld) 17 % Low 24-43 [facility] Comment on above: Performed By: #### C LINH LIP, CP #### [address] [place], [facility]83 Break Out Man: Alex Amador MD MCH (RBC) [Entitic mass] 30.3 pg Normal 25.2-33.5 [facility] Comment on above: Performed By: #### C RAMÓN MELTON, CP #### [address] [place], [facility]83 Break Out Man: Alex Amador MD MCHC (RBC) [Mass/Vol] 34.8 g/dL Normal 28.4-34.8 [facility] Comment on above: Performed By: #### C LINH LIP, CP #### [facility] [address] [place] [address] Dr. [place], [facility]83 Break Out Man: Alex Amador MD MCV (RBC) [Entitic vol] 87.1 fL Normal 82.6-102.9 [facility] Comment on above: Performed By: #### C LINH LIP, CP #### [address] [place] [address] Break Out Man: Alex Amaodr MD Monocytes (Bld) [#/Vol] 0.78 10*3/uL Normal 0.10-1.20 [facility] Comment on above: Performed By: #### C LINH LIP, CP #### [facility] [address] [place] [address] Break Out Man: Alex Amador MD Monocytes/100 WBC (Bld) 8 % Normal 3-12 [facility] Comment on above: Performed By: #### C DP LIP, CP #### [facility] [address] [place] [address] Break Out Man: Alex Amador MD Neutrophil (Seg) 72 % High 36-65 [facility] Comment on above: Performed By: #### C LINH LIP, CP #### [address] [place], [place] 1860483 Break Out Man: Alex Amador MD NRBC Automated 0.0 per 100 WBC Normal 0.0 [facility] Comment on above: Performed By: #### C RAMÓN MELTON, CP #### [address] [place] [address] Break Out Man: Alex Amador MD Platelet mean volume (Bld) [Entitic vol] 10.4 fL Normal 8.1-13.5 [facility] Comment on above: Performed By: #### C RAMÓN MELTON, CP #### [address] [place] [address] Break Out Man: Alex Amador MD Platelets (Bld) [#/Vol] 239 10*3/uL Normal 138-453 [facility] Comment on above: Performed By: #### C DP LIP, CP #### [facility] [address] [place], [place] [id number] Break Out Man: Alex Amador MD RBC (Bld) [#/Vol] 5.12 10*6/uL Normal 4.21-5.77 [facility] Comment on above: Performed By: #### C DP, LIP, CP #### [facility] [address] [place], [place] [id number] Break Out Man: Alex Amador MD WBC (Bld) [#/Vol] 9.6 10*3/uL Normal 3.5-11.3 [facility] Comment on above: Performed By: #### C DP, LIP, CP #### [facility] [address] [place] [address] Break Out Man: Alex Amador MD Comp Metabolic Profon 2023 Albumin [Mass/Vol] 4.4 g/dL Normal 3.5-5.2 [facility] Comment on above: Performed By: #### C DP, LIP, CP #### [facility] [address] [place] [address] Break Out Man: Alex Amador MD Albumin/Glob Ratio 1.2 Normal 1.0-2.5 [facility] Comment on above: Performed By: #### C DP LIP, CP #### [facility] [address] [place], [place] [phone] Break Out Man: Alex Amador MD Alkaline Phos 103 U/L Normal 40-129 [facility] Comment on above: Performed By: #### C DP, LIP, CP #### [facility] [address] [place] [address] Break Out Man: Aelx Amador MD ALT [Catalytic activity/Vol] 30 U/L Normal 5-41 [facility] Comment on above: Performed By: #### C DP, LIP, CP #### [facility] [address] [place], [place] [phone] Break Out Man: Alex Amador MD Anion gap [Moles/Vol] 10 mmol/L Normal 9-17 [facility] Comment on above: Performed By: #### C DP, LIP, CP #### [facility] [address] [place], [place] [phone] Break Out Man: Alex Amador MD AST [Catalytic activity/Vol] 21 U/L Normal <40 [facility] Comment on above: Performed By: #### C DP, LIP, CP #### [facility] [address] [place], [place] [phone] Break Out Man: Alex Amador MD Bilirubin [Mass/Vol] 0.7 mg/dL Normal 0.3-1.2 [facility] Comment on above: Performed By: #### C DP, LIP, CP #### [facility] [address] [place] [address] Dr. [place], [place] [phone] Break Out Man: Alex Amador MD BUN/CRE Ratio 13 Normal 9-20 [facility] Comment on above: Performed By: #### C DP, LIP, CP #### [facility] [address] [place], [place] [phone] Break Out Man: Alex Amador MD Calcium [Mass/Vol] 9.1 mg/dL Normal 8.6-10.4 [facility] Comment on above: Performed By: #### C DP, LIP, CP #### [facility] [address] [place] [address] Dr. [place], [place] [id number] Break Out Man: Alex Amador MD Chloride [Moles/Vol] 102 mmol/L Normal 98-107 [facility] Comment on above: Performed By: #### C DP, LIP, CP #### [facility] [address] [place], [place] [phone] Break Out Man: Alex Amador MD CO2 [Moles/Vol] 27 mmol/L Normal 20-31 [facility] Comment on above: Performed By: #### C DP, LIP, CP #### [facility] [address] [place], [place] [phone] Break Out Man: Alex Amador MD Creatinine [Mass/Vol] 0.8 mg/dL Normal 0.7-1.2 [facility] Comment on above: Performed By: #### C RAMÓN MELTON, CP #### [facility] [address] [place] [address] Break Out Man: Alex Amador MD GFR/1.73 sq M.predicted among non-blacks MDRD (S/P/Bld) [Vol rate/Area] mL/min/{1.73_m2} Normal >60 [facility] Comment on above: Result Comment: These [...] By: #### C RAMÓN MELTON, CP #### [facility] [address] [place], [place] [id number] Break Out Man: Alex Amador MD Glucose [Mass/Vol] 97 mg/dL Normal 70-99 [facility] Comment on above: Performed By: #### C RAMÓN MELTON, CP #### [address] [place] [address] Break Out Man: Alex Amador MD Potassium [Moles/Vol] 4.2 mmol/L Normal 3.7-5.3 [facility] Comment on above: Performed By: #### C RAMÓN MELTON, CP #### [facility] [address] [place] [address] Break Out Man: Alex Amador MD Protein [Mass/Vol] 8.0 g/dL Normal 6.4-8.3 [facility] Comment on above: Performed By: #### C RAMÓN MELTON, CP #### [facility] [address] [place] [address] Break Out Man: Alex Amador MD Sodium [Moles/Vol] 139 mmol/L Normal 135-144 [facility] Comment on above: Performed By: #### C RAMÓN MELTON, CP #### [facility] [address] [place] [address] Break Out Man: Alex Amador MD Urea nitrogen [Mass/Vol] 10 mg/dL Normal 6-20 [facility] Comment on above: Performed By: #### C RAMÓN MELTON, CP #### [facility] [address] [place] [address] Break Out Man: Alex Amador MD Lipaseon 07-04-2023 Lipase [Catalytic activity/Vol] 29 U/L Normal 13-60 [facility] Comment on above: Performed By: #### C RAMÓN MELTON, CP #### [facility] [address] [place] [address] Break Out Man: Alex Amadro MD 36on 11-21-2022 36 Patient's girlfriend called [...] cost is very similar. Help! Thanks. Normal [facility] CBCon 11-17-2022 Erythrocyte distribution width (RBC) [Ratio] 12.9 % Normal 11.5-15.0 [facility] Comment on above: Performed By: #### L [id number] ####[facility] (BEAKER)[address] [place] [address] ERYTHROCYTE MEAN CORPUSCULAR HEMOGLOBIN CONCENTRATION (G/DL) BY AUTOMATED 34.2 g/dL Normal 32.0-35.0 [facility] Comment on above: Performed By: #### L [id number] ####[facility] (BEAKER)[address] [place] [address] Hematocrit (Bld) [Volume fraction] 43.6 % Normal 39.0-55.0 [facility] Comment on above: Performed By: #### L [id number] ####[facility] ([facility] [place] [address] Hemoglobin (Bld) [Mass/Vol] 14.9 g/dL Normal 13.0-17.0 [facility] Comment on above: Performed By: #### L [id number] ####[facility] ([facility])[address] [place] [address] MCH (RBC) [Entitic mass] 30.2 pg Normal 27.0-33.0 [facility] Comment on above: Performed By: #### L [id number] ####[facility] ([facility] [place] [address] MCV (RBC) [Entitic vol] 88.4 fL Normal 82.0-98.0 [facility] Comment on above: Performed By: #### L [id number] ####[facility] ([facility])[address] [place] [address] PLATELETS (10*3/UL) IN BLOOD AUTOMATED COUNT 237 10*3/uL Normal 150-400 [facility] Comment on above: Performed By: #### L [id number] ####[facility] ([facility] [place] [address] RBC (Bld) [#/Vol] 4.93 10*6/uL Normal 4.20-5.70 [facility] Comment on above: Performed By: #### L [id number] ####[facility] (BEAKER)[address] [place] [address] WBC (Bld) [#/Vol] 10.15 10*3/uL Normal 4.00-10.60 [facility] Comment on above: Performed By: #### L [id number] ####[facility] ([facility]ER)[address] [place] [address] HPon 11-17-2022 HP H&P reviewed. The patient [...] consent was signed prior to the procedure. [facility] H&P reviewed. The patient was examined and there are no changes to the H&P. Rafat Garcia MD, MPH, [facility], [facility], [facility] Interventional Cardiology Pager Email: [email or web address] 11-17-2022 NURSNOTE RN educated pt on d/c instructions. RN encouraged pt to voice any questions or concerns. Pt verbalizes no questions or concerns at this time. Pt was wheeled off of unit with all of belongings. [facility] Orders Onlyon 11-09-2022 Orders Only [id number] Henrik Cavanaugh 1980 M Date Provider Department Center 11/09/2022 [facility]ASC [facility] [place] [facility] Family History Problem Relation Age of Onset Coronary artery disease Mother's Brother Peripheral vascular disease Mother's Brother Family Status - Relation Status Age at Mother's Brother [facility] HPon 10-31-2022 [facility] Cardiology Clinic Note Chief Complaint: Patient here for follow up [facility] [employer] for chest pain. He was seen as inpatient consult by Melania Alarcon CNP. Had inpatient stress test. HPI: Henrik Cavanaugh is a 42 y.o. male seen [...] pending the above Rafat Garcia MD, MPH, FACC, [facility], [facility] Interventional Cardiology Pager Email: [email or web address] Normal [facility] Office Visiton 10-31-2022 Follow-up visit [id number] Henrik Cavanaugh 1980 [facility] Provider Department Center 10/31/2022 Davie-RAFAT GARCIA CINDY Sin Family History Problem Relation Age of Onset Coronary artery disease Mother's Brother Peripheral vascular disease Mother's Brother Family Status - Relation Status Age at Mother's Brother Level of Service:43847 HI OFFICE/OUTPATIENT ESTABLISHED HIGH MDM 40-54 MIN Normal [facility] Orders Onlyon 10-31-2022 Orders Only [id number] Henrik Cavanaugh 1980 [facility] Provider Department Center 10/31/2022 TAE BENÍTEZ Family History Problem Relation Age of Onset Coronary artery disease Mother's Brother Peripheral vascular disease Mother's Brother Family Status - Relation Status Age at Mother's Brother Normal [facility] Activated partial thrombopla stin time (aPTT) in platelet poor plasma by coagulation aOrdered By: Socorro Osullivan on 10-11-2022 aPTT Coag (PPP) [Time] 27.7 s 25.1-36.5 [facility] Basophils Auto (Bld) [#/Vol] Ordered By: Socorro Osullivan on 10-11-2022 Basophils (Bld) [#/Vol] 0.1 10*3/uL 0.0-0.2 [facility] Basophils/100 WBC Auto (Bld) Ordered By: Socorro Osullivan on 10-11-2022 Basophils/100 WBC (Bld) 0.9 % . [facility] Calcium [Mass/volume] in Ser um or PlasmaOrdered By: Socorro Osullivan on 10-11-2022 Calcium [Mass/Vol] 9.5 mg/dL 8.6-10.3 [facility] Carbon dioxide, total [Moles /volume] in Serum or PlasmaOrdered By: Socorro Osullivan on 10-11-2022 CO2 [Moles/Vol] 29.1 mmol/L 21.0-31.0 [facility] Chloride [Moles/volume] in S josselin or PlasmaOrdered By: Socorro Osullivan on 10-11-2022 Chloride [Moles/Vol] 102 mmol/L 98-107 [facility] Creatine kinase [Enzymatic a ctivity/volume] in Serum or PlasmaOrdered By: Socorro Osullivan on 10-11-2022 CK [Catalytic activity/Vol] 87 U/L 30-223 [facility] Creatinine [Mass/volume] in Serum or PlasmaOrdered By: Socorro Osullivan on 10-11-2022 Creatinine [Mass/Vol] 0.79 mg/dL 0.70-1.30 [facility] Eosinophils Auto (Bld) [#/Vo l]Ordered By: Socorro Osullivan on 10-11-2022 Eosinophils (Bld) [#/Vol] 0.2 10*3/uL 0.0-0.45 [facility] Eosinophils/100 WBC Auto (Bl d)Ordered By: Socorro Osullivan on 10-11-2022 Eosinophils/100 WBC (Bld) 2.5 % . [facility] Erythrocyte distribution wid th Auto (RBC) [Ratio]Ordered By: Socorro Osullivan on 10-11-2022 Erythrocyte distribution width (RBC) [Ratio] 13.3 % 12.0-14.8 [facility] Glucose [Mass/volume] in Ser um or PlasmaOrdered By: Socorro Osullivan on 10-11-2022 Glucose [Mass/Vol] 90 mg/dL 70-100 [facility] Comment on above: ADA recommended refe rence rangeRandom Glucose Reference Range is dependent on time and content of last meal. Glucose of more than 200 mg/dL in a nonstressed, ambulatory subject supports the diagnosis of Diabetes Mellitus. Hematocrit Auto (Bld) [Volum e fraction]Ordered By: Socorro Osullivan on 10-11-2022 Hematocrit (Bld) [Volume fraction] 40.4 % 38.8-50.0 [facility] Hemoglobin [Mass/volume] in BloodOrdered By: Socorro Osullivan on 10-11-2022 Hemoglobin (Bld) [Mass/Vol] 14.2 g/dL 13.0-17.0 [facility] Laboratory - CoagulationOrde red By: Socorro Osullivan on 10-11-2022 PT Coag (PPP) [Time] 12.0 s 9.0-12.9 [facility] Leukocytes [#/volume] correc giselle for nucleated erythrocytes in Blood by Automated counOrdered By: Soocrro Osullivan on 10-11-2022 WBC corrected for nucl RBC Auto (Bld) [#/Vol] 9.5 10*3/uL 4.1-10.5 [facility] Lymphocytes Auto (Bld) [#/Vo l]Ordered By: Socorro Osullivan on 10-11-2022 Lymphocytes (Bld) [#/Vol] 1.8 10*3/uL 1.00-4.8 [facility] Lymphocytes/100 WBC Auto (Bl d)Ordered By: Socorro Osullivan on 10-11-2022 Lymphocytes/100 WBC (Bld) 18.6 % . [facility] MCH Auto (RBC) [Entitic mass ]Ordered By: Socorro Osullivan on 10-11-2022 MCH (RBC) [Entitic mass] 30.4 pg 27.5-35.2 [facility] MCHC Auto (RBC) [Mass/Vol]Or dered By: Socorro Osullivan on 10-11-2022 MCHC (RBC) [Mass/Vol] 35.1 g/dL 32.5-35.6 [facility] MCV Auto (RBC) [Entitic vol] Ordered By: Socorro Osullivan on 10-11-2022 MCV (RBC) [Entitic vol] 86.6 fL 83.5-101 [facility] Monocyte distribution width [Entitic volume] in Blood by AutomatedOrdered By: Socorro Osullivan on 10-11-2022 Monocyte distribution width Auto (Bld) [Entitic vol] 18.08 % 0.00-20.00 [facility] Monocytes Auto (Bld) [#/Vol] Ordered By: Socorro Osullivan on 10-11-2022 Monocytes (Bld) [#/Vol] 0.7 10*3/uL 0.0-0.8 [facility] Monocytes/100 WBC Auto (Bld) Ordered By: Socorro Osullivan on 10-11-2022 Monocytes/100 WBC (Bld) 7.2 % . [facility] Natriuretic peptide B [Mass/ Vol]Ordered By: Socorro Osullivan on 10-11-2022 Natriuretic peptide B (Bld) [Mass/Vol] 21.0 pg/mL 5-100 [facility] Neutrophils Auto (Bld) [#/Vo l]Ordered By: Socorro Osullivan on 10-11-2022 Neutrophils (Bld) [#/Vol] 6.7 10*3/uL 1.8-7.7 [facility] Neutrophils/100 WBC Auto (Bl d)Ordered By: Socorro Osullivan on 10-11-2022 Neutrophils/100 WBC (Bld) 70.8 % . [facility] No Panel InformationOrdered By: Socorro Osullivan on 10-11-2022 Estimated GFR (CKD-EPI) > 60.0 mL/Min [facility] Creatinine Clearance (Chem 158.41 [facility] Nucleated erythrocytes [Pres ence] in Blood by Automated countOrdered By: Socorro Osullivan on 10-11-2022 Nucleated RBC Auto Ql (Bld) 0.2 /100{WBC} 0-0.5 [facility] Platelet mean volume Auto (B ld) [Entitic vol]Ordered By: Socorro Osullivan on 10-11-2022 Platelet mean volume (Bld) [Entitic vol] 8.0 fL 6.6-10.1 [facility] Platelet poor plasma interna tional normalized ratio (INR) by coagulation assay (relatOrdered By: Socorro Osullivan on 10-11-2022 INR Coag (PPP) [Relative time] 1.0 {INR} [facility] Comment on above: INR Therapeutic Rang [...] 10-11-2022 Platelets (Bld) [#/Vol] 218 10*3/uL 150-450 [facility] Potassium [Moles/volume] in Serum or PlasmaOrdered By: Socorro Osullivan on 10-11-2022 Potassium [Moles/Vol] 3.8 mmol/L 3.5-5.1 [facility] RBC Auto (Bld) [#/Vol]Ordere d By: Socorro Osullivan on 10-11-2022 RBC (Bld) [#/Vol] 4.67 10*6/uL 3.90-5.60 [facility] Serum or plasma anion gap de terminationOrdered By: Socorro Osullivan on 10-11-2022 Anion gap [Moles/Vol] 10.7 mmol/L 6.0-15.0 [facility] Sodium [Moles/volume] in Ser um or PlasmaOrdered By: Socorro Osullivan on 10-11-2022 Sodium [Moles/Vol] 138 mmol/L 136-145 [facility] Troponin I.cardiac [Mass/vol ume] in Serum or Plasma by Detection limit <= 0.01 ng/Ordered By: Socorro Osullivan on 10-11-2022 Troponin I.cardiac DL <= 0.01 ng/mL [Mass/Vol] 6.3 pg/mL 0.0-20.0 [facility] Urea nitrogen [Mass/volume] in Serum or PlasmaOrdered By: Socorro Osullivan on 10-11-2022 Urea nitrogen [Mass/Vol] 11 mg/dL 7-25 [facility] WBC Auto (Bld) [#/Vol]Ordere d By: Socorro Osullivan on 10-11-2022 WBC (Bld) [#/Vol] 9.5 10*3/uL 4.1-10.5 [facility] BNPon 05-16-2022 Natriuretic peptide B (Bld) [Mass/Vol] 51.0 pg/mL Normal <=450.0 [facility] Comment on above: Performed By: #### B PROJECT DEVELOPMENT COORDINATOR, CMADM, BMP #### [facility] [address] [place] [address] Dr. Divina Patino CARDIAC DAT 3-6on 3 CK [Catalytic activity/Vol] 43 U/L Normal 39-308 [facility] Comment on above: Performed By: #### L ACT #### [facility] [address] [place] [address] Dr. Divina Patino HSTROP 10.6 pg/mL Normal 4.0-76.1 [facility] Comment on above: Result Comment: CUT- OFF POINTS HAVE BEEN ESTABLISHED BASED ON THE FOURTH UNIVERSAL DEFINITIONS OF MYOCARDIAL INFARCTION. THE UPPER REFERENCE LIMIT (URL) OF TROPONIN, DEFINED THE 99TH PERCENTILE OF cTnI DISTRIBUTION IN A REFERENCE POPULATION, HAS BEEN CONFIRMED THE DECISION THRESHOLD FOR [place] DIAGNOSIS. Performed By: #### L ACT #### [facility] [address] [place] [address] Dr. Divina Patino CARDIAC DAT ADMITon 023 CK [Catalytic activity/Vol] 44 U/L Normal 39-308 [facility] Comment on above: Performed By: #### B PROJECT DEVELOPMENT COORDINATOR, CMADM, BMP #### [facility] [address] [place] [address] Dr. Divina Patino CK.MB [Mass/Vol] ng/mL Normal <=3.60 [facility] Comment on above: Performed By: #### B PROJECT DEVELOPMENT COORDINATOR, CMADM, BMP #### [facility] [address] [place] [address] Dr. Divina Patino HSTROP 9.9 pg/mL Normal 4.0-76.1 [facility] Comment on above: Result Comment: CUT- OFF POINTS HAVE BEEN ESTABLISHED BASED ON THE FOURTH UNIVERSAL DEFINITIONS OF MYOCARDIAL INFARCTION. THE UPPER REFERENCE LIMIT (URL) OF TROPONIN, DEFINED THE 99TH PERCENTILE OF cTnI DISTRIBUTION IN A REFERENCE POPULATION, HAS BEEN CONFIRMED THE DECISION THRESHOLD FOR [place] DIAGNOSIS. Performed By: #### B PROJECT DEVELOPMENT COORDINATOR, CMADM, BMP #### [facility] [address] [place] [address] Dr. Divina Patino CIELO 21 ng/mL Normal 16-96 [facility] Comment on above: Performed By: #### B PROJECT DEVELOPMENT COORDINATOR, CMADM, BMP #### [facility] [address] [place] [address] Dr. Divina Patino CBC AUTO DIFFon 05-16-2022 BASO # 0.1 103/ul Normal 0.0-0.1 [facility] Comment on above: Performed By: #### C BC #### [facility] [address] [place] [address] Dr. Divina Patino Basophils/100 WBC (Bld) 0.6 % Normal 0.2-2.0 [facility] Comment on above: Performed By: #### C BC #### [facility] [address] [place] [address] Dr. Divina Patino EO # 0.3 103/ul Normal 0.0-0.7 [facility] Comment on above: Performed By: #### C BC #### [facility] [address] [place] [address] Dr. Divina Patino Eosinophils/100 WBC (Bld) 2.3 % Normal 0.9-7.0 [facility] Comment on above: Performed By: #### C BC #### [facility] [address] [place] [address] Dr. Divina Patino Erythrocyte distribution width (RBC) [Ratio] 12.3 % Normal 11.0-15.0 [facility] Comment on above: Performed By: #### C BC #### [facility] [address] [place] [address] Dr. Divina Patino Hematocrit (Bld) [Volume fraction] 41.6 % Critically low 42.0-54.0 [facility] Comment on above: Performed By: #### C BC #### [facility] [address] [place] [address] Dr. Divina Patino Hemoglobin (Bld) [Mass/Vol] 14.6 g/dL Normal 14.0-18.0 [facility] Comment on above: Performed By: #### C BC #### [facility] [address] [place] [address] Dr. Divina Patino IG # 0.12 10e3/ul Critically high 0.00-0.03 [facility] Comment on above: Performed By: #### C BC #### [facility] [address] [place] [address] Dr. Divina Patino IG % 1.0 % Critically high 0.0-0.5 [facility] Comment on above: Performed By: #### C BC #### [facility] [address] [place] [address] Dr. Divina Patino LYMPH # 2.7 103/ul Normal 1.2-3.8 [facility] Comment on above: Performed By: #### C BC #### [facility] [address] [place] [address] Dr. Divina Patino Lymphocytes/100 WBC (Bld) 23.0 % Normal 20.5-60.0 [facility] Comment on above: Performed By: #### C BC #### [facility] [address] [place] [address] Dr. Divina Patino MANUAL DIFF REQ NO Normal [facility] Comment on above: Performed By: #### C BC #### [facility] [address] [place] [address] Dr. Divina Patnio MCH (RBC) [Entitic mass] 30.0 pg Normal 25.9-34.0 [facility] Comment on above: Performed By: #### C BC #### [facility] [address] [place] [address] Dr. Divina Patino MCHC (RBC) [Mass/Vol] 35.1 g/dL Normal 29.9-35.2 [facility] Comment on above: Performed By: #### C BC #### [facility] [address] [place] [address] Dr. Divina Patino MCV (RBC) [Entitic vol] 85.6 fL Normal 80.0-94.0 [facility] Comment on above: Performed By: #### C BC #### [facility] [address] [place] [address] Dr. Divina Patino MONO # 1.0 103/ul Critically high 0.3-0.8 [facility] Comment on above: Performed By: #### C BC #### [facility] [address] [address] [address] Divina Patino Monocytes/100 WBC (Bld) 8.6 % Normal 1.7-12.0 [facility] Comment on above: Performed By: #### C BC #### [facility] [address] [address] [address] Divina Patino NEUT # 7.4 103/ul Critically high 1.4-6.5 [facility] Comment on above: Performed By: #### C BC #### [facility] [address] [place] [address] Dr. Divina Patino Neutrophils/100 WBC (Bld) 64.5 % Normal 43.0-75.0 [facility] Comment on above: Performed By: #### C BC #### [facility] [address] [place] [address] Dr. Divina Patino Platelet mean volume (Bld) [Entitic vol] 9.9 fL Normal 9.5-13.5 [facility] Comment on above: Performed By: #### C BC #### [facility] [address] [place] [address] Dr. Divina Patino PLT 231 103/ul Normal 150-450 [facility] Comment on above: Performed By: #### C BC #### [facility] [address] [place] [address] Dr. Divina Patino RBC 4.86 106/ul Normal 4.70-6.10 [facility] Comment on above: Performed By: #### C BC #### [facility] [address] [place] [address] Dr. Divina Patino WBC 11.5 103/ul Critically high 4.0-11.0 [facility] Comment on above: Performed By: #### C BC #### [facility] [address] [place] [address] Dr. Divina Patino D-DIMERon 05-16-2022 D-DIMER 0.19 mg/L FEU Normal <=0.59 [facility] Comment on above: Performed By: #### D DIM #### [facility] [address] [place] [address] Dr. Divina Patino D-DIMER COMMENTS SEE BELOW Normal [facility] Comment on above: Result Comment: [...] Performed By: #### D DIM #### [facility] [address] [place] [address] Dr. Divina Patino LACTATE/LACTIC ACIDon 2022 Lactate [Moles/Vol] 1.5 mmol/L Normal 0.4-1.9 [facility] Comment on above: Performed By: #### L ACT #### [facility] [address] [place] [address] Dr. Divina Patino PROF CHEM 8 (BAS METB)on Anion gap [Moles/Vol] 13.7 mmol/L Normal [facility] Comment on above: Performed By: #### B PROJECT DEVELOPMENT COORDINATOR, CMADM, BMP #### [facility] [address] [place] [address] Dr. Divina Patino Calcium [Mass/Vol] 8.7 mg/dL Normal 8.5-10.1 [facility] Comment on above: Performed By: #### B PROJECT DEVELOPMENT COORDINATOR, CMADM, BMP #### [facility] [address] [place] [address] Dr. Divina Patino Chloride [Moles/Vol] 102 mmol/L Normal 98-107 [facility] Comment on above: Performed By: #### B PROJECT DEVELOPMENT COORDINATOR, CMADM, BMP #### [facility] [address] [place] [address] Dr. Divina Patino CO2 [Moles/Vol] 27.1 mmol/L Normal 21.0-32.0 [facility] Comment on above: Performed By: #### B PROJECT DEVELOPMENT COORDINATOR, CMADM, BMP #### [facility] [address] [address] [address] Divina Patino Creatinine [Mass/Vol] 0.85 mg/dL Normal 0.70-1.30 [facility] Comment on above: Performed By: #### B PROJECT DEVELOPMENT COORDINATOR, CMADM, BMP #### [facility] [address] [address] [address] Divina Patino EGFR-AF FINNISH >60 Normal >=60 [facility] Comment on above: Performed By: #### B PROJECT DEVELOPMENT COORDINATOR, CMADM, BMP #### [facility] [address] [place] [address] Dr. Divina Patino EGFR-NON AF FINNISH >60 Normal >=60 [facility] Comment on above: Performed By: #### B PROJECT DEVELOPMENT COORDINATOR, CMADM, BMP #### [facility] [address] [place] [address] Dr. Divina Patino Glucose [Mass/Vol] 114 mg/dL Critically high 74-106 [facility] Comment on above: Performed By: #### B PROJECT DEVELOPMENT COORDINATOR, CMADM, BMP #### [facility] [address] [place] [address] Dr. Divina Patino Potassium [Moles/Vol] 3.8 mmol/L Normal 3.5-5.1 [facility] Comment on above: Performed By: #### B PROJECT DEVELOPMENT COORDINATOR, CMADM, BMP #### [facility] [address] [address] [address] Divina Patino Sodium [Moles/Vol] 139 mmol/L Normal 136-145 [facility] Comment on above: Performed By: #### B PROJECT DEVELOPMENT COORDINATOR, CMADM, BMP #### [facility] [address] [place] [address] Dr. Divina Patnio Urea nitrogen [Mass/Vol] 15.0 mg/dL Normal 7.0-18.0 [facility] Comment on above: Performed By: #### B PROJECT DEVELOPMENT COORDINATOR, CMADM, BMP #### [facility] [address] [place] [address] Dr. Divina Patino Urea nitrogen/Creatinine [Mass ratio] 17.6 mg/mg Normal [facility] Comment on above: Performed By: #### B PROJECT DEVELOPMENT COORDINATOR, CMADM, BMP #### [facility] [address] [place] [address] Dr. Divina Patino XR CHEST 1 Von [...] PURCELL Date: 2022-05-15 23:20 Normal [facility] CARDIAC DAT ADMITon 023 CK [Catalytic activity/Vol] 78 U/L Normal 39-308 [facility] Comment on above: Performed By: #### L ACT #### [facility] [address] [place] [address] Dr. Divina Patino CK.MB [Mass/Vol] 1.08 ng/mL Normal <=3.60 [facility] Comment on above: Performed By: #### L ACT #### [facility] [address] [place] [address] Dr. Divina Patino HSTROP 12.2 pg/mL Normal 4.0-76.1 [facility] Comment on above: Result Comment: CUT- OFF POINTS HAVE BEEN ESTABLISHED BASED ON THE FOURTH UNIVERSAL DEFINITIONS OF MYOCARDIAL INFARCTION. THE UPPER REFERENCE LIMIT (URL) OF TROPONIN, DEFINED THE 99TH PERCENTILE OF cTnI DISTRIBUTION IN A REFERENCE POPULATION, HAS BEEN CONFIRMED THE DECISION THRESHOLD FOR [place] DIAGNOSIS. Performed By: #### L ACT #### [facility] [address] [place] [address] Dr. Divina Patino CIELO 24 ng/mL Normal 16-96 [facility] Comment on above: Performed By: #### L ACT #### [facility] [address] [place] [address] Dr. Divina Patino CBC AUTO DIFFon 05-11-2022 BASO # 0.1 103/ul Normal 0.0-0.1 [facility] Comment on above: Performed By: #### L ACT #### [facility] [address] [place] [address] Dr. Divina Patino Basophils/100 WBC (Bld) 0.6 % Normal 0.2-2.0 [facility] Comment on above: Performed By: #### L ACT #### [facility] [address] [place] [address] Dr. Divina Patino EO # 0.2 103/ul Normal 0.0-0.7 [facility] Comment on above: Performed By: #### L ACT #### [facility] [address] [place] [address] Dr. Divina Patino Eosinophils/100 WBC (Bld) 2.0 % Normal 0.9-7.0 [facility] Comment on above: Performed By: #### L ACT #### [facility] [address] [place] [address] Dr. Divina Patino Erythrocyte distribution width (RBC) [Ratio] 12.4 % Normal 11.0-15.0 [facility] Comment on above: Performed By: #### L ACT #### [facility] [address] [place] [address] Dr. Divina Patino Hematocrit (Bld) [Volume fraction] 43.8 % Normal 42.0-54.0 [facility] Comment on above: Performed By: #### L ACT #### [facility] [address] [place] [address] Dr. Divina Patino Hemoglobin (Bld) [Mass/Vol] 15.3 g/dL Normal 14.0-18.0 [facility] Comment on above: Performed By: #### L ACT #### [facility] [address] [place] [address] Dr. Divina Patino IG # 0.06 10e3/ul Critically high 0.00-0.03 [facility] Comment on above: Performed By: #### L ACT #### [facility] [address] [place] [address] Dr. Divina Patino IG % 0.6 % Critically high 0.0-0.5 [facility] Comment on above: Performed By: #### L ACT #### [facility] [address] [place] [address] Dr. Divina Patino LYMPH # 2.0 103/ul Normal 1.2-3.8 [facility] Comment on above: Performed By: #### L ACT #### [facility] [address] [place] [address] Dr. Divina Patino Lymphocytes/100 WBC (Bld) 19.9 % Critically low 20.5-60.0 [facility] Comment on above: Performed By: #### L ACT #### [facility] [address] [place] [address] Dr. Divina Patino MANUAL DIFF REQ NO Normal [facility] Comment on above: Performed By: #### L ACT #### [facility] [address] [place] [address] Dr. Divina Patino MCH (RBC) [Entitic mass] 30.2 pg Normal 25.9-34.0 [facility] Comment on above: Performed By: #### L ACT #### [facility] [address] [place] [address] Dr. Divina Patino MCHC (RBC) [Mass/Vol] 34.9 g/dL Normal 29.9-35.2 [facility] Comment on above: Performed By: #### L ACT #### [facility] [address] [place] [address] Dr. Divina Patino MCV (RBC) [Entitic vol] 86.6 fL Normal 80.0-94.0 [facility] Comment on above: Performed By: #### L ACT #### [facility] [address] [place] [address] Dr. Divina Patino MONO # 0.8 103/ul Normal 0.3-0.8 [facility] Comment on above: Performed By: #### L ACT #### [facility] [address] [place] [address] Dr. Divina Patino Monocytes/100 WBC (Bld) 7.7 % Normal 1.7-12.0 [facility] Comment on above: Performed By: #### L ACT #### [facility] [address] [address] [address] Divina Patino NEUT # 7.1 103/ul Critically high 1.4-6.5 [facility] Comment on above: Performed By: #### L ACT #### [facility] [address] [address] [address] Divina Patino Neutrophils/100 WBC (Bld) 69.2 % Normal 43.0-75.0 [facility] Comment on above: Performed By: #### L ACT #### [facility] [address] [address] [address] Divina Patino Platelet mean volume (Bld) [Entitic vol] 10.3 fL Normal 9.5-13.5 [facility] Comment on above: Performed By: #### L ACT #### [facility] [address] [address] [address] Divina Patino PLT 238 103/ul Normal 150-450 [facility] Comment on above: Performed By: #### L ACT #### [facility] [address] [address] [address] Divina Patino RBC 5.06 106/ul Normal 4.70-6.10 [facility] Comment on above: Performed By: #### L ACT #### [facility] [address] [address] [address] Divina Patino WBC 10.3 103/ul Normal 4.0-11.0 [facility] Comment on above: Performed By: #### L ACT #### [facility] [address] [address] [address] Divina Patino CRPon 05-11-2022 CRP [Mass/Vol] mg/L Normal <=1.0 [facility] Comment on above: Performed By: #### L ACT #### [facility] [address] [place] [address] HEAD WO CONon [...] JOHNSTON Date: 2022-05-11 19:47 Normal [facility] Covid-19 PCR (CVDTB)on SARS-CoV-2 (COVID-19) RNA JERRICA+probe Ql (Unsp spec) Not detected Normal NOT DETECTED [facility] Comment on above: Result Comment: When [...] for this test is supported by the [place] of Health and Human Service's declaration that [...] used). Performed By: #### C VDTBH #### [facility] [address] [address] [address] Divina Patino INFLUENZA A AND B AGon 05-11 INFLUANEGH SEE BELOW Normal [facility] Comment on above: Result Comment: Nega tive for Flu A protein angiten. Infection due to Flu A cannot be ruled out. Flu A angiten in the sample may be below the detection limit of the test. Performed By: #### I NFLUAB #### [facility] [address] [place] [address] Dr. Divina Patino [facility] SEE BELOW Normal [facility] Comment on above: Result Comment: Nega tive for Flu B protein antigen. Infection due to Flu B cannot be ruled out. Flu B antigen in the sample may be below the detection limit of the test. Performed By: #### I NFLUAB #### [facility] [address] [place] [address] Dr. Divina Patino INFLUENZA A AG Negative Normal NEGATIVE SEE COMMENT [facility] Comment on above: Performed By: #### I NFLUAB #### [facility] [address] [place] [address] Dr. Divina Patino INFLUENZA B AG Negative Normal NEGATIVE SEE COMMENT [facility] Comment on above: Performed By: #### I NFLUAB #### [facility] [address] [place] [address] Dr. Divina Patino LACTATE/LACTIC ACIDon 2022 Lactate [Moles/Vol] 1.8 mmol/L Normal 0.4-1.9 [facility] Comment on above: Performed By: #### L ACT #### [facility] [address] [place] [address] Dr. Divina Patino MONOon 05-11-2022 Monocytes (Bld) [#/Vol] Negative Normal NEGATIVE [facility] Comment on above: Performed By: #### M LEANDRO #### [facility] [address] [place] [address] Dr. Divina Patino PROF CHEM 8 (BAS METB)on Anion gap [Moles/Vol] 12.8 mmol/L Normal [facility] Comment on above: Performed By: #### L ACT #### [facility] [address] [place] [address] Dr. Divina Patino Calcium [Mass/Vol] 9.1 mg/dL Normal 8.5-10.1 [facility] Comment on above: Performed By: #### L ACT #### [facility] [address] [place] [address] Dr. Divina Patino Chloride [Moles/Vol] 101 mmol/L Normal 98-107 [facility] Comment on above: Performed By: #### L ACT #### [facility] [address] [address] [address] Divina Patino CO2 [Moles/Vol] 26.9 mmol/L Normal 21.0-32.0 [facility] Comment on above: Performed By: #### L ACT #### [facility] [address] [address] [address] Divina Patino Creatinine [Mass/Vol] 0.90 mg/dL Normal 0.70-1.30 [facility] Comment on above: Performed By: #### L ACT #### [facility] [address] [place] [address] Dr. Divian Patino EGFR-AF FINNISH >60 Normal >=60 [facility] Comment on above: Performed By: #### L ACT #### [facility] [address] [place] [address] Dr. Divina Patino EGFR-NON AF FINNISH >60 Normal >=60 [facility] Comment on above: Performed By: #### L ACT #### [facility] [address] [address] [address] Divina Patino Glucose [Mass/Vol] 110 mg/dL Critically high 74-106 [facility] Comment on above: Performed By: #### L ACT #### [facility] [address] [place] [address] Dr. Divina Patino Potassium [Moles/Vol] 3.7 mmol/L Normal 3.5-5.1 [facility] Comment on above: Performed By: #### L ACT #### [facility] [address] [place] [address] Dr. Divina Patino Sodium [Moles/Vol] 137 mmol/L Normal 136-145 [facility] Comment on above: Performed By: #### L ACT #### [facility] [address] [address] [address] Divina Patino Urea nitrogen [Mass/Vol] 11.0 mg/dL Normal 7.0-18.0 [facility] Comment on above: Performed By: #### L ACT #### [facility] [address] [address] [address] Divina Patino Urea nitrogen/Creatinine [Mass ratio] 12.2 mg/mg Normal [facility] Comment on above: Performed By: #### L ACT #### [facility] [address] [address] [address] Divina Patino SED RATE WESTERGRENon 2022 SED RATE 16 mm/hr Critically high <=15 [facility] Comment on above: Performed By: #### L ACT #### [facility] [address] [address] [address] Divina Patino TSHon 05-11-2022 TSH 3.949 uIU/mL Critically high 0.358-3.740 [facility] Comment on above: Performed By: #### L ACT #### [facility] [address] [address] [address] Divina Patino COVID-19 SOFIAOrdered By: Andres Elizondo on 12-02-2021 SARS-CoV+SARS-CoV-2 (COVID-19) Ag IA.rapid Ql (Resp) Negative Negative [facility] Comment on above: This is a duplicate Judith SARS Antigen (ANURAG) result to be used for statistical tracking purpose only. No Panel InformationOrdered By: Elian Elizondo on 12-02-2021 SARS Antigen (LFIA) [facility] CBC with Auto Differentialon 06-08-2021 Absolute Eos # 0.11 [facility] th Absolute Immature Granulocyte 0.06 [employer] Absolute Lymph # 1.65 [facility] alth Absolute [place] # 1.03 [facility] lt Basophils (Bld) [#/Vol] 0.07 10*3/uL [employer] Basophils/100 WBC (Bld) 1 % 0 - 2 % [employer] Eosinophils/100 WBC (Bld) 1 % 1 - 4 % [employer] Hematocrit (Bld) [Volume fraction] 47.5 % 40.7 - 50.3 % [employer] Hemoglobin.gastroint estinal spec 1 Ql (Stl) 16.3 g/dL 13.0 - 17.0 g/dL [facility] Immature granulocytes/100 WBC (Bld) 1 % High 0 [facility] Interpretation and review of laboratory results Abnormal [facility] Lymphocytes/100 WBC (Bld) 14 % Low 24 - 43 % [facility] MCH (RBC) [Entitic mass] 30.5 pg 25.2 - 33.5 pg [facility] MCHC (RBC) [Mass/Vol] 34.3 g/dL 28.4 - 34.8 g/dL [facility] MCV (RBC) [Entitic vol] 89.0 fL 82.6 - 102.9 fL [facility] Monocytes/100 WBC (Bld) 9 % 3 - 12 % [facility] NRBC Automated 0.0 0.0 per 100 WBC [facility] Platelet distribution width (Bld) [Ratio] 12.5 % 11.8 - 14.4 % [facility] Platelet mean volume (Bld) [Entitic vol] 10.8 fL 8.1 - 13.5 fL [facility] Platelets (Bld) [#/Vol] 231 10*3/uL [facility] RBC (Bld) [#/Vol] 5.34 10*6/uL 4.21 - 5.77 m/uL [facility] Segmented neutrophils/100 WBC (Bld) 74 % High 36 - 65 % [facility] Segs Absolute 9.[address] [facility] (Bld[facility] [#/Vol] 12.0 10*3/uL High [facility] CT ABDOMEN PELVIS W IV CONTR AST [...] COMPARISON: 02/05/2019 HISTORY: ORDERING SYSTEM PROVIDED HISTORY: [facility] pain TECHNOLOGIST PROVIDED HISTORY: [facility] pain Decision Support Exception - unselect if [...] Bones/Soft Tissues: Mild multilevel thoracolumbar spondylosis. [facility] [place] MD - 06/08/2021 EXAMINATION: CT [...] COMPARISON: 02/05/2019 HISTORY: ORDERING SYSTEM PROVIDED HISTORY: [facility] pain TECHNOLOGIST PROVIDED HISTORY: [facility] pain Decision Support Exception - unselect if [...] stones in the left kidney. Normal appendix. [employer] Work Phone: Radiology Study observation (narrative) [employer] Phone: CT ABDOMEN PELVIS W IV CONTR AST Additional Contrast? NoneOrdered By: Ok Rodgers on 06-08-2021 [employer] Work Phone: Comprehensive Metabolic Pane karan 06-08-2021 Albumin [Mass/Vol] 4.6 g/dL 3.5 - 5.2 g/dL [facility] [employer] Albumin/Globulin [Mass ratio] 1.5 {ratio} [facility] [employer] ALP (Bld) [Catalytic activity/Vol] 90 U/L 40 - 129 U/L [facility] [employer] ALT [Catalytic activity/Vol] 37 U/L 5 - 41 U/L [facility] [employer] Anion gap [Moles/Vol] 10 mmol/L 9 - 17 mmol/L [facility] [employer] AST [Catalytic activity/Vol] 18 U/L <40 [facility] [employer] Bilirubin [Mass/Vol] 0.83 mg/dL 0.3 - 1.2 mg/dL [facility] [employer] Calcium [Mass/Vol] 9.7 mg/dL 8.6 - 10.4 mg/dL [facility] [employer] Chloride [Moles/Vol] 101 mmol/L 98 - 107 mmol/L [facility] [employer] CO2 [Moles/Vol] 29 mmol/L 20 - 31 mmol/L [facility] [employer] Creatinine [Mass/Vol] 0.83 mg/dL 0.70 - 1.20 mg/dL [facility] [employer] Free PSA/Total PSA [Mass fraction] 7.6 g/dL 6.4 - 8.3 g/dL [facility] [employer] GFR >60 >60 mL/min [facility] [employer] GFR Non- >60 >60 mL/min [facility] [employer] Glucose [Mass/Vol] 110 mg/dL High 70 - 99 mg/dL [facility] Interpretation and review of laboratory results Abnormal [facility] [employer] Potassium [Moles/Vol] 4.2 mmol/L 3.7 - 5.3 mmol/L [facility] Sodium [Moles/Vol] 140 mmol/L 135 - 144 mmol/L [facility] Urea nitrogen (BldV) [Mass/Vol] 10 mg/dL 6 - 20 mg/dL [facility] Urea nitrogen/Creatinine (Bld) [Mass ratio] 12 [facility] Laboratory - Chemistry and C hemistry - challengeon 06-08-2021 GFR/1.73 sq M.predicted MDRD (S/P/Bld) [Vol rate/Area] [facility] Comment on above: Average GFR for 40-4 9 years old: 99 mL/min/1.73sq m Chronic Kidney Disease: <60 mL/min/1.73sq m Kidney failure: <15 mL/min/1.73sq m eGFR calculated using average adult body mass. Additional eGFR calculator available at: http://www.GnamGnam/multiple_crcl_2012.htm Stage 1: Some kidney damage normal GFR Stage 2: Mild kidney damage GFR 60-89 Stage 3: Moderate kidney damage GFR 30-59 Stage 4: Severe kidney damage GFR 15-29 Stage 5: Severe kidney damage GFR <15 ESRD - chronic treatment by dialysis or transplant Lactic Acidon 06-08-2021 Lactate [Moles/Vol] 2.1 mmol/L 0.5 - 2.2 mmol/L [facility] Lipaseon 06-08-2021 Lipase [Catalytic activity/Vol] 30 U/L 13 - 60 U/L [facility] No Panel Informationon 06-08 [facility] Basic Metabolic Panelon Anion gap [Moles/Vol] 9 mmol/L 9 - 17 mmol/L [place] Bun/Cre Ratio 12 [place] Calcium [Mass/Vol] 8.8 mg/dL 8.6 - 10.4 mg/dL [place] Chloride [Moles/Vol] 98 mmol/L 98 - 107 mmol/L [place] CO2 [Moles/Vol] 26 mmol/L 20 - 31 mmol/L [place] Creatinine [Mass/Vol] 1.04 mg/dL 0.7 - 1.2 mg/dL [place] GFR >60 >60 mL/min [place] GFR Non- >60 >60 mL/min [place] Glucose [Mass/Vol] 111 mg/dL High 70 - 99 mg/dL [place] Interpretation and review of laboratory results Abnormal [place] Potassium [Moles/Vol] 3.9 mmol/L 3.7 - 5.3 mmol/L [place] Sodium [Moles/Vol] 133 mmol/L Low 135 - 144 mmol/L [place] Urea nitrogen [Mass/Vol] 12 mg/dL 6 - 20 mg/dL [place] Brain Natriuretic Peptideon 03-19-2020 Natriuretic peptide B (Bld) [Mass/Vol] Pro-BNP Reference Range: [place] Comment on above: Rule Out: <300 Reis Zone: Age <50 300-450 Age 50-75 300-900 Age >75 300-1800 Usually represents mild to moderate HF but other cardiopulmonary causes cannot be ruled out. Rule In: Age <50 >450 Age 50-75 >900 Age >75 >1800 Natriuretic peptide B (Bld) [Mass/Vol] 60 pg/mL <300 [place] Comment on above: Pro-BNP results radha ot be compared to BNP results. CBC Auto Differentialon Basophils (Bld) [#/Vol] 0.04 10*3/uL [place] Basophils/100 WBC (Bld) 1 % 0 - 2 % [place] Differential Type NOT REPORTED [place] Eosinophils (Bld) [#/Vol] 0.04 10*3/uL [place] Eosinophils/100 WBC (Bld) 1 % 1 - 4 % [place] Erythrocyte distribution width (RBC) [Ratio] 12.5 % 11.8 - 14.4 % [place] Hematocrit (Bld) [Volume fraction] 48.2 % 40.7 - 50.3 % [place] Hemoglobin (Bld) [Mass/Vol] 16.3 g/dL 13 - 17 g/dL [place] Immature granulocytes (Bld) [#/Vol] 1 % High 0 [place] Immature granulocytes (Bld) [#/Vol] 0.07 10*3/uL [place] Interpretation and review of laboratory results Abnormal [place] Lymphocytes (Bld) [#/Vol] 1.10 10*3/uL [place] Lymphocytes/100 WBC (Bld) 13 % Low 24 - 43 % [place] MCH (RBC) [Entitic mass] 29.4 pg 25.2 - 33.5 pg [place] MCHC (RBC) [Mass/Vol] 33.8 g/dL 28.4 - 34.8 g/dL [place] MCV (RBC) [Entitic vol] 87.0 fL 82.6 - 102.9 fL [place] Monocytes (Bld) [#/Vol] 0.96 10*3/uL [place] Monocytes/100 WBC (Bld) 11 % 3 - 12 % [place] Platelet mean volume (Bld) [Entitic vol] 11.2 fL 8.1 - 13.5 fL [place] Platelets (Bld) [#/Vol] 175 10*3/uL [place] Platelets (Bld) [#/Vol] NOT REPORTED [place] RBC (Bld) [#/Vol] 5.54 10*6/uL 4.21 - 5.77 m/uL [place] RBC morphology finding Nom (Bld) NOT REPORTED [place] Segmented neutrophils/100 WBC (Bld) 73 % High 36 - 65 % [place] Segs Absolute 6.21 [place] WBC (Bld) [#/Vol] 8.4 10*3/uL [place] WBC (Bld) [#/Vol] 0.0 10*3/uL 0.0 per 100 WBC M [place] WBC Morphology NOT REPORTED [place] COVID-19, PCRon 03-19-2020 Interpretation and review of laboratory results Abnormal [place] SARS-CoV-2, Rapid DETECTED Abnormal Not Detected [place] Comment on above: Rapid NAAT: The [...] this assay. Fact sheet for Healthcare Providers: https://www.fda.gov/media/053902/download Fact sheet for Patients: https://www.fda.gov/media/910965/download Methodology: Isothermal Nucleic Acid Amplification Results reported to the appropriate Health Department Source .NASOPHARYNGEAL SWAB [place] CT CHEST PULMONARY EMBOLISM W CONTRASTon 03-19-2020 1. No pulmonary embolism. 2. Multifocal ground-glass opacities in the bilateral lungs with overall pattern of concern for underlying viral pneumonitis. 3. Hepatomegaly and diffuse steatosis in the abdomen, stable from remote imaging. [place] Tito, [facility] Incoming Radiant Results From [employer] - 03/19/2020 8:26 PM EST EXAMINATION: CTA [...] in the abdomen, stable from remote imaging. [place] EXAMINATION: CTA OF THE CHEST 03/19/2020 [...] Tissues/Bones: No skeletal abnormalities throughout the chest. [place] Lactic Acid, Plasmaon 2020 Lactate [Moles/Vol] 1.2 mmol/L 0.5 - 2.2 mmol/L [place] Lactic Acid, Whole Blood NOT REPORTED 0.7 - 2.1 mmol/L [place] Metabolic Panelon 03-19-2020 GFR/1.73 sq M predicted among non-blacks MDRD (S/P/Bld) [Vol rate/Area] [place] Comment on above: Average GFR for 40-4 9 years old: 99 mL/min/1.73sq m Chronic Kidney Disease: <60 mL/min/1.73sq m Kidney failure: <15 mL/min/1.73sq m eGFR calculated using average adult body mass. Additional eGFR calculator available at: http://www.[employer].SimpleTuition/multiple_crcl_2012.htm Stage 1: Some kidney damage normal GFR Stage 2: Mild kidney damage GFR 60-89 Stage 3: Moderate kidney damage GFR 30-59 Stage 4: Severe kidney damage GFR 15-29 Stage 5: Severe kidney damage GFR <15 ESRD - chronic treatment by dialysis or transplant Otheron 03-19-2020 SARS-CoV-2 [place] Rapid influenza A/B antigens on 03-19-2020 Direct Exam NEGATIVE for Influenza A + B antigens. PCR testing to confirm this result is available upon request. Specimen will be saved in the laboratory for 7 days. Please call [phone] if PCR testing is indicated. [place] Special Requests NOT REPORTED [place] Specimen Description .NASOPHARYNGEAL SWAB [place] Troponinon 03-19-2020 Troponin I.cardiac [Mass/Vol] NOT REPORTED [place] Troponin T.cardiac [Mass/Vol] NOT REPORTED <0.03 ng/mL [place] Troponin, High Sensitivity 15 ng/L 0 - 22 ng/L [place] Comment on above: High Sensitivity Troponin values cannot be compared with other Troponin methodologies. Patients with high levels of Biotin oral intake (i.e >5mg/day) may have falsely decreased Troponin levels. Samples collected within 8 hours of biotin intake may require additional information for diagnosis. XR CHEST PORTABLEon 03-19-19 21 Tito, pn Incoming Radiant Results From [employer] - 03/19/2020 6:06 PM EST EXAMINATION: ONE XRAY VIEW OF THE CHEST 03/19/2020 5:58 pm COMPARISON: June 27, 2018 HISTORY: ORDERING SYSTEM PROVIDED HISTORY: dyspnea TECHNOLOGIST PROVIDED HISTORY: dyspnea FINDINGS: Mild edema. Heart and mediastinum normal. Bony thorax intact. IMPRESSION: Mild edema or pneumonitis [place] EXAMINATION: ONE XRAY VIEW OF THE CHEST 03/19/2020 5:58 pm COMPARISON: June 27, 2018 HISTORY: ORDERING SYSTEM PROVIDED HISTORY: dyspnea TECHNOLOGIST PROVIDED HISTORY: dyspnea FINDINGS: Mild edema. Heart and mediastinum normal. Bony thorax intact. [place] Mild edema or pneumonitis [place] Otheron 10-21-2019 No acute abnormalities seen in the left foot or left ankle [place] EXAMINATION: THREE XRAY VIEWS OF THE [...] medial malleolus most likely from old trauma. [place] Tito, M[facility] Incoming Radiant Results From [employer] - 10/21/2019 4:26 PM EDT EXAMINATION: THREE [...] in the left foot or left ankle [place] Basic Metabolic Panel w/ Ref katrin to MGon 02-06-2019 Anion gap [Moles/Vol] 13 mmol/L 9 - 17 mmol/L [place] Bun/Cre Ratio 16 [place] Calcium [Mass/Vol] 8.4 mg/dL Low 8.6 - 10.4 mg/dL [place] Chloride [Moles/Vol] 99 mmol/L 98 - 107 mmol/L [place] CO2 [Moles/Vol] 23 mmol/L 20 - 31 mmol/L [place] Creatinine [Mass/Vol] 0.94 mg/dL 0.7 - 1.2 mg/dL [place] GFR >60 >60 mL/min [place] GFR Non- >60 >60 mL/min [place] Glucose [Mass/Vol] 130 mg/dL High 70 - 99 mg/dL [place] Interpretation and review of laboratory results Abnormal [place] Potassium [Moles/Vol] 3.7 mmol/L 3.7 - 5.3 mmol/L [place] Sodium [Moles/Vol] 135 mmol/L 135 - 144 mmol/L [place] Urea nitrogen [Mass/Vol] 15 mg/dL 6 - 20 mg/dL [place] CBCon 02-06-2019 Erythrocyte distribution width (RBC) [Ratio] 12.5 % 11.8 - 14.4 % [place] Hematocrit (Bld) [Volume fraction] 45.4 % 40.7 - 50.3 % [place] Hemoglobin (Bld) [Mass/Vol] 15.1 g/dL 13 - 17 g/dL [place] MCH (RBC) [Entitic mass] 29.8 pg 25.2 - 33.5 pg [place] MCHC (RBC) [Mass/Vol] 33.3 g/dL 28.4 - 34.8 g/dL [place] MCV (RBC) [Entitic vol] 89.5 fL 82.6 - 102.9 fL [place] Platelet mean volume (Bld) [Entitic vol] 10.4 fL 8.1 - 13.5 fL [place] Platelets (Bld) [#/Vol] 198 10*3/uL [place] RBC (Bld) [#/Vol] 5.07 10*6/uL 4.21 - 5.77 m/uL [place] WBC (Bld) [#/Vol] 0.0 10*3/uL 0.0 per 100 WBC [place] WBC (Bld) [#/Vol] 10.7 10*3/uL [place] Culture Stoolon 02-06-2019 Campylobacter PCR NEGATIVE: No Campylobacter spp. (jejuni or coli) DNA Detected NEGATIVE: No Campylobacter spp. (jejuni or coli) DNA Detecte [place] E Coli Enterotoxigenic PCR NEGATIVE: No Enterotoxigenic E. coli (ETEC) Heat-labile and heat-stable (LT/ST) DNA Detected NEGATIVE: No Enterotoxigenic E. coli (ETEC) Heat-labile and [place] Plesiomonas Shigelloides PCR Negative NEGATIVE: No Plesionomas shigelloides DNA Detected [place] Salmonella PCR Negative NEGATIVE: No Salmonella spp. DNA Detected [place] Shigatoxin Gene PCR Negative NEGATIVE : No Shiga toxin-producing gene(s) Detected [place] Shigella Sp PCR Negative NEGATIVE: No Shigella spp. / EIEC DNA Detected [place] Specimen Description .FECES [place] Vibrio PCR NEGATIVE: No Vibrio (V. vulnificus, V, parahaemolyticus and V. cholerae) DNA Detected NEGATIVE: No Vibrio (V. vulnificus, V, parahaemolyticus and [place] Yersinia Enterocolitica PCR Negative NEGATIVE: No Yersinia enterocolitica DNA Detected [place] Metabolic Panelon 02-06-2019 GFR/1.73 sq M predicted among non-blacks MDRD (S/P/Bld) [Vol rate/Area] [place] Comment on above: Stage 1: Some [...] body mass. Additional eGFR calculator available at: http://www.[employer].SimpleTuition/multiple_crcl_2012.htm Microscopic Urinalysison Amorphous, UA NOT REPORTED [facility] [place] [place] Bacteria, UA TRACE Abnormal None [place] Casts UA NOT REPORTED /LPF [place] Crystals UA NOT REPORTED None /HPF [place] Epithelial Cells UA 0 TO 2 [place] Interpretation and review of laboratory results Abnormal [place] Mucus, UA TRACE Abnormal None [place] Other Observations UA NOT REPORTED NOT REQ. [place] RBC (U) [#/Vol] 0 TO 2 [place] Renal Epithelial, Urine NOT REPORTED 0 /HPF [place] Trichomonas, UA NOT REPORTED None [place], [place] WBC, UA None [place] Yeast, UA NOT REPORTED None [place] - [place] Urinalysis Reflex to Culture on 02-06-2019 Bilirubin Urine Negative NEGATIVE [place] Color, UA YELLOW YELLOW [place] Glucose, Ur Negative NEGATIVE [place] Interpretation and review of laboratory results Abnormal [place] Ketones Ql (U) TRACE Abnormal NEGATIVE [place], [place] Leukocyte esterase Test strip Ql (U) Negative NEGATIVE [place] Nitrite, Urine Negative NEGATIVE [place] pH, UA 5.5 [place] Protein (U) [Mass/Vol] TRACE Abnormal NEGATIVE [place] Specific [place], UA >1.030 High [place] Turbidity UA CLEAR CLEAR [place] Urinalysis Comments NOT REPORTED [place] Urine Hgb 1+ Abnormal NEGATIVE [place] Urobilinogen, Urine Normal Normal [place] C DIFF TOXIN/ANTIGENon 02-05 C DIFF AG + TOXIN Negative NEGATIVE [place] Comment on above: No C. difficile anti gen and Toxin Detected. Specimen Description .FECES [place] CBCon 02-05-2019 Erythrocyte distribution width (RBC) [Ratio] 12.0 % 11.8 - 14.4 % [place] Hematocrit (Bld) [Volume fraction] 49.7 % 40.7 - 50.3 % [place] Hemoglobin (Bld) [Mass/Vol] 17.2 g/dL High 13 - 17 g/dL [place] Interpretation and review of laboratory results Abnormal [place] MCH (RBC) [Entitic mass] 30.4 pg 25.2 - 33.5 pg [place] MCHC (RBC) [Mass/Vol] 34.6 g/dL 28.4 - 34.8 g/dL [place] MCV (RBC) [Entitic vol] 87.8 fL 82.6 - 102.9 fL [place] Platelet mean volume (Bld) [Entitic vol] 10.8 fL 8.1 - 13.5 fL [place] Platelets (Bld) [#/Vol] 233 10*3/uL [place] RBC (Bld) [#/Vol] 5.66 10*6/uL 4.21 - 5.77 m/uL [place] WBC (Bld) [#/Vol] 15.0 10*3/uL [place] WBC (Bld) [#/Vol] 0.0 10*3/uL 0.0 per 100 WBC M [place] CT ABDOMEN PELVIS W IV CONTR AST Additional Contrast? Noneon 02-05-2019 Tito, pn Incoming Radiant Results From [employer] - 02/05/2019 6:20 PM EST EXAMINATION: CT [...] pathologic adenopathy. Bones/Soft Tissues: Normal IMPRESSION: Ileus [place] EXAMINATION: CT OF THE ABDOMEN AND [...] is no pathologic adenopathy. Bones/Soft Tissues: Normal [place] Ileus [place] Comprehensive Metabolic Pane karan 02-05-2019 Albumin [Mass/Vol] 4.6 g/dL 3.5 - 5.2 g/dL [place] Albumin/Globulin [Mass ratio] 1.4 {ratio} [place] ALP [Catalytic activity/Vol] 88 U/L 40 - 129 U/L [place] ALT [Catalytic activity/Vol] 43 U/L High 5 - 41 U/L [place] Anion gap [Moles/Vol] 19 mmol/L High 9 - 17 mmol/L [place] AST [Catalytic activity/Vol] 23 U/L <40 [place] Bilirubin Ql (U) 1.37 mg/dL High 0.3 - 1.2 mg/dL [place] Bun/Cre Ratio 16 [place] Calcium [Mass/Vol] 9.4 mg/dL 8.6 - 10.4 mg/dL [place] Chloride [Moles/Vol] 96 mmol/L Low 98 - 107 mmol/L [place] CO2 [Moles/Vol] 21 mmol/L 20 - 31 mmol/L [place] Creatinine [Mass/Vol] 0.9 mg/dL 0.7 - 1.2 mg/dL [place] GFR >60 >60 mL/min [place] GFR Non- >60 >60 mL/min [place] Glucose [Mass/Vol] 119 mg/dL High 70 - 99 mg/dL [place] Interpretation and review of laboratory results Abnormal [place] Potassium [Moles/Vol] 4.2 mmol/L 3.7 - 5.3 mmol/L [place] Protein [Mass/Vol] 8.0 g/dL 6.4 - 8.3 g/dL [place] Sodium [Moles/Vol] 136 mmol/L 135 - 144 mmol/L [place] Urea nitrogen [Mass/Vol] 14 mg/dL 6 - 20 mg/dL [place] Lactic Acid, Plasmaon 2018 Interpretation and review of laboratory results Abnormal [place] Lactate [Moles/Vol] 2.4 mmol/L High 0.5 - 2.2 mmol/L [place] Lactic Acid, Whole Blood NOT REPORTED 0.7 - 2.1 mmol/L [place] Lipaseon 02-05-2019 Lipase [Catalytic activity/Vol] 32 U/L 13 - 60 U/L [place] Metabolic Panelon 02-05-2019 GFR/1.73 sq M predicted among non-blacks MDRD (S/P/Bld) [Vol rate/Area] [place] Comment on above: Average GFR for 40-4 9 years old: 99 mL/min/1.73sq m Chronic Kidney Disease: <60 mL/min/1.73sq m Kidney failure: <15 mL/min/1.73sq m eGFR calculated using average adult body mass. Additional eGFR calculator available at: http://www.[employer].SimpleTuition/multiple_crcl_2012.htm Stage 1: Some kidney damage normal GFR Stage 2: Mild kidney damage GFR 60-89 Stage 3: Moderate kidney damage GFR 30-59 Stage 4: Severe kidney damage GFR 15-29 Stage 5: Severe kidney damage GFR <15 ESRD - chronic treatment by dialysis or transplant Vital Signs Date Time Vital Sign Value Performing Clinician Rochelle cerrato 10-11-2022 15:03-0400 Diastolic blood pressure 81 mm[Hg] PHYSICIAN NO [facility] 10-11-2022 15:03-0400 Heart rate 75 /min PHYSICIAN NO [facility] 10-11-2022 15:03-0400 Respiratory rate 20 /min PHYSICIAN NO [facility] 10-11-2022 15:03-0400 SaO2% (BldA) [Mass fraction] 97 % PHYSICIAN NO [facility] 10-11-2022 15:03-0400 Systolic blood pressure 146 mm[Hg] PHYSICIAN NO [facility] 10-11-2022 12:17-0400 Body temperature 98.3 [degF] PHYSICIAN NO [facility] 10-11-2022 12:12-0400 Body height 175.26 cm PHYSICIAN NO [facility] 10-11-2022 12:12-0400 Body weight 128.6 kg PHYSICIAN NO [facility] 08-18-2022 12:04-0400 Body temperature 97.9 [degF] PHYSICIAN NO [facility] 08-18-2022 11:58-0400 Body height 177.8 cm PHYSICIAN NO [facility] 08-18-2022 11:58-0400 Body weight 129.36 kg PHYSICIAN NO [facility] 08-18-2022 11:58-0400 Diastolic blood pressure 115 mm[Hg] PHYSICIAN NO [facility] 08-18-2022 11:58-0400 Heart rate 107 /min PHYSICIAN NO [facility] 08-18-2022 11:58-0400 Respiratory rate 20 /min PHYSICIAN NO [facility] 08-18-2022 11:58-0400 SaO2% (BldA) [Mass fraction] 97 % PHYSICIAN NO [facility] 08-18-2022 11:58-0400 Systolic blood pressure 159 mm[Hg] PHYSICIAN NO [facility] 12-19-2021 18:32-0400 Body temperature 98.1 [degF] PHYSICIAN NO [facility] 12-19-2021 18:32-0400 Diastolic blood pressure 105 mm[Hg] PHYSICIAN NO [facility] 12-19-2021 18:32-0400 Heart rate 106 /min PHYSICIAN NO [facility] 12-19-2021 18:32-0400 Respiratory rate 20 /min PHYSICIAN NO [facility] 12-19-2021 18:32-0400 SaO2% (BldA) [Mass fraction] 96 % PHYSICIAN NO [facility] 12-19-2021 18:32-0400 Systolic blood pressure 153 mm[Hg] PHYSICIAN NO [facility] 12-19-2021 17:44-0400 Body height 177.8 cm PHYSICIAN NO [facility] 12-19-2021 17:44-0400 Body weight 134.55 kg PHYSICIAN NO [facility] 12-17-2021 09:40-0400 Body height 177.8 cm PHYSICIAN NO [facility] 12-17-2021 09:40-0400 Body temperature 98.1 [degF] PHYSICIAN NO [facility] 12-17-2021 09:40-0400 Body weight 134 kg PHYSICIAN NO [facility] 12-17-2021 09:40-0400 Diastolic blood pressure 108 mm[Hg] PHYSICIAN NO [facility] 12-17-2021 09:40-0400 Heart rate 114 /min PHYSICIAN NO [facility] 12-17-2021 09:40-0400 Respiratory rate 20 /min PHYSICIAN NO [facility] 12-17-2021 09:40-0400 SaO2% (BldA) [Mass fraction] 98 % PHYSICIAN NO [facility] 12-17-2021 09:40-0400 Systolic blood pressure 171 mm[Hg] PHYSICIAN NO [facility] 12-02-2021 14:50-0400 Body height 177.8 cm PHYSICIAN NO [facility] 12-02-2021 14:50-0400 Body temperature 98.6 [degF] PHYSICIAN NO [facility] 12-02-2021 14:50-0400 Body weight 133.2 kg PHYSICIAN NO [facility] 12-02-2021 14:50-0400 Diastolic blood pressure 102 mm[Hg] PHYSICIAN NO [facility] 12-02-2021 14:50-0400 Heart rate 117 /min PHYSICIAN NO [facility] 12-02-2021 14:50-0400 Respiratory rate 18 /min PHYSICIAN NO [facility] 12-02-2021 14:50-0400 SaO2% (BldA) [Mass fraction] 98 % PHYSICIAN NO [facility] 12-02-2021 14:50-0400 Systolic blood pressure 174 mm[Hg] PHYSICIAN NO [facility] 06-08-2021 14:28-0400 Heart rate 117 /min Fatoumata Tillman CNP Work Phone: [facility] 06-08-2021 14:28-0400 SaO2% (BldA) [Mass fraction] 95 % Fatoumata Sanchez APRN - BANDAR Work Phone: [facility] 06-08-2021 14:22-0400 Body height 177.8 cm Fatoumata Sanchez APRN - BANDAR Work Phone: [facility] 06-08-2021 14:22-0400 Body mass index (BMI) [Ratio] 44.77 kg/m2 Fatoumata Sanchez APRN - BANDAR Work Phone: [facility] 06-08-2021 14:22-0400 Body temperature 98.1 [degF] Fatoumata Sanchez APRN - BANDAR Work Phone: [facility] 06-08-2021 14:22-0400 Body weight 141.52 kg Fatoumata Sanchez APRN - BANDAR Work Phone: [facility] 06-08-2021 14:22-0400 Diastolic blood pressure 120 mm[Hg] Fatoumata Sanchez PIN TICKET MACHINE OPERATOR - BALLER TENDER Work Phone: [facility] 06-08-2021 14:22-0400 Respiratory rate 18 /min Fatoumata Sanchez PIN TICKET MACHINE OPERATOR - BALLER TENDER Work Phone: [facility] 06-08-2021 14:22-0400 Systolic blood pressure 170 mm[Hg] Fatoumata Sanchez PIN TICKET MACHINE OPERATOR - BALLER TENDER Work Phone: [facility] 03-19-2020 23:45-0500 BP Diastolic 101 mm[Hg] [facility] [place] , [place] 03-19-2020 23:45-0500 BP Systolic 148 mm[Hg] [facility] 03-19-2020 23:45-0500 Pulse (Heart Rate) 117 /min [facility], [place] 03-19-2020 23:45-0500 Pulse Oximetry 94 % [facility] , [place] 03-19-2020 23:45-0500 Respiratory Rate 23 /min [facility] [place] 03-19-2020 19:57-0500 Body Temperature 99.9 [degF] [facility] [place] 03-19-2020 17:38-0500 BMI (Body Mass Index) 45.92 kg/m2 [facility] 03-19-2020 17:38-0500 Body weight 145.15 kg [facility] , [place] 03-19-2020 17:38-0500 Height 177.8 cm [facility] , [place] 10-21-2019 17:46-0400 BP Diastolic 103 mm[Hg] [facility] [place] 10-21-2019 17:46-0400 BP Systolic 163 mm[Hg] [facility] 10-21-2019 17:37-0400 Pulse (Heart Rate) 109 /min [facility] 10-21-2019 17:37-0400 Respiratory Rate 18 /min [facility], [place] 10-21-2019 16:02-0400 BMI (Body Mass Index) 44.3 kg/m2 [facility] [place] 10-21-2019 16:02-0400 Body Temperature 97 [degF] [place] 10-21-2019 16:02-0400 Body weight 136.08 kg Kellie [place], [place] 10-21-2019 16:02-0400 Pulse Oximetry 96 % [place] 02-07-2019 08:18-0500 Body Temperature 97.7 [degF] [facility] [place] 02-07-2019 08:18-0500 BP Diastolic 102 mm[Hg] Dat Jean Baptiste [facility] , [place] 02-07-2019 08:18-0500 BP Systolic 132 mm[Hg] Dat Jean Baptiste [facility] , [place] 02-07-2019 08:18-0500 Pulse (Heart Rate) 76 /min Dat Jean Baptiste [facility], [place] 02-07-2019 08:18-0500 Pulse Oximetry 96 % Dat Jean Baptiste [facility] , [place] 02-07-2019 08:18-0500 Respiratory Rate 16 /min Dat Jean Baptiste [facility], [place] 02-07-2019 04:51-0500 BMI (Body Mass Index) 42.06 kg/m2 Dat Hopkins [facility], [place] 02-07-2019 04:51-0500 Body weight 129.18 kg Dat Jean Baptiste [facility] , [place] 02-06-2019 08:10-0500 Height 175.3 cm Dat Jean Baptiste [place], [place] Encounters Encounter Date Encounter Type Care Provider Facility Start: 02-15-2024 End: 02-15-2024 Emergency department patient visit Jenelle Judge Facility:[facility] Start: 07-04-2023 End: 07-04-2023 Emergency department patient visit [facility] Start: 11-17-2022 End: 11-17-2022 ambulatory AB [facility] Start: 10-31-2022 End: 10-31-2022 ambulatory [facility] Start: 10-11-2022 End: 10-11-2022 Emergency department patient visit PHYSICIAN RAMÓN JOHNSON [facility] Work Phone: Start: 08-18-2022 End: 08-18-2022 [...] Recurring PHYSICIAN NO [facility] [address] Start: 12-19-2021 End: 12-19-2021 Emergency department patient visit PHYSICIAN NO [facility] Start: 12-17-2021 End: 12-17-2021 Emergency department patient visit PHYSICIAN NO [facility] Start: 12-02-2021 End: 12-02-2021 Emergency department patient visit PHYSICIAN NO [facility] Start: 06-08-2021 End: 06-08-2021 Emergency department patient visit Fatoumata Sanchez PIN TICKET MACHINE OPERATOR - BALLER TENDER Work Phone: [facility] ED Comment on above: Enteritis (Primary D x) Start: 03-19-2020 End: 03-20-2020 Emergency department patient visit [facility] ED Comment on above: COVID-19 (Primary Dx ) Start: 10-21-2019 End: 10-21-2019 Emergency department patient visit [facility] ED Comment on above: Left Achilles tendin itis (Primary Dx) Start: 02-05-2019 End: 02-07-2019 Evaluation and management of inpatient Dat Jean Baptiste Work Phone: [facility] Comment on above: Ileus [...] abdomen & pelvis w/contrast material Fatoumata Sanchez PIN TICKET MACHINE OPERATOR - BALLER TENDER Work Phone: Start: 06-08-2021 Comprehensive metabo lic panel Fatoumata Sanchez PIN TICKET MACHINE OPERATOR - BALLER TENDER Work Phone: Start: 03-19-2020 Ct thorax w/contrast material Arabella Blandon Work Phone: Start: 03-19-2020 COVID-19 Arabella he Work Phone: Start: 03-19-2020 [place]oo influenza Enmanuel Blandon Work Phone: Start: 03-19-2020 Assay of [...] REFLEX TO MG FOR LOW K Dat Henderson Jacquelyn Work Phone: Start: 02-06-2019 Blood count complete automated Dat Jean Baptiste Work Phone: Start: 02-06-2019 Urinalysis microscop ic only Arabella Blandon Work Phone: Start: 02-06-2019 Urnls dip stick/tabl et rgnt auto w/o microscopy Arabella Barber Work Phone: Start: 02-05-2019 Cul bact stool aerob ic isol salmonella&shigell Arabella Barber Work Phone: Start: 02-05-2019 Toxin/antitoxin assa y tissue culture [facility] Work Phone: Start: 02-05-2019 Ct abdomen & pelvis w/contrast material Arabella Barber Work Phone: Start: 02-05-2019 Assay of lactate Arabella Barber Work Phone: Start: 02-05-2019 Assay of lipase [facility] Work Phone: Start: 02-05-2019 Blood count complete automated [facility] Work Phone: Start: 02-05-2019 Comprehensive metabo lic panel [facility] Work Phone: SARS Antigen (LFIA) PHYSICIA N NO FAMILY Plan of Treatment Date Care Activity Detail Author Start: 06-08-2022 Creatinine measurement Creatinine mo [facility] Start: 06-08-2022 Potassium monitoring Potassium monit [facility] Start: 03-19-2021 Creatinine measurement Creatinine mo [place], [place] Start: 03-19-2021 Potassium monitoring Potassium monit [place], [place] Start: 11-11-2020 Influenza vaccination Flu vaccine (# 1) [facility] Start: 02-07-2020 Creatinine measurement Creatinine mo [place], [place] Start: 02-07-2020 Potassium monitoring Potassium monit [place], [place] Start: 11-12-2019 Influenza vaccination Flu vaccine (# 1) [place], [place] Start: 06-28-2019 Creatinine monitoring Creatinine mon itoring [place] Start: 06-28-2019 Potassium monitoring Potassium monit [place] Start: 11-11-2018 Influenza vaccination Flu vaccine (# 1) [place], [place] Start: 2018 Diabetes screen Diabetes screen [place], [place] Start: 2018 Lipid panel Lipid screen [facility] Start: 2018 Lipid screen Lipid screen [place], [place] Start: 2013 Diabetes screen Diabetes screen [facility] Start: 1997 DTaP/Tdap/Td vaccine (1 - Tdap) DTaP/Tdap/Td vaccine (1 - Tdap) [facility] Start: 1993 HIV screen HIV screen [place], [place] Start: 1993 HIV screening HIV screen [facility] Start: 1990 Depression Screen Depression Screen [facility] Start: 1989 DTaP/Tdap/Td vaccine (1 - Tdap) DTaP/Tdap/Td vaccine (1 - Tdap) [place] Start: 1983 COVID-19 Vaccine (1) COVID-19 Vaccin e (1) [facility] Start: 1978 Hepatitis C screening Hepatitis C sc reen [facility] End: 03-19-2020 Culture, Blood 1 Culture, Blood 1 Microbiology STAT One Time for 1 Occurrences starting 03/19/2020 until 03/19/2020 [place] Comment on above: One Time for 1 Occur rences starting 03/19/2020 until 03/19/2020 Culture, Blood 1 Culture, Blood 1 Microbiology STAT 03/19/2020 6:00 PM [place], [place] EKG 12 Lead EKG 12 Lead ECG STAT 03/19/2020 5:53 PM [place] Initiate Oxygen Ther apy Protocol Initiate Oxygen Therapy Protocol Respiratory Care Routine Daily until discontinued starting 02/05/2019 [place], [place] Comment on above: Daily until disconti nued starting 02/05/2019 Nasal Cannula Oxygen Nasal Cannu la Oxygen Respiratory Care STAT Daily until discontinued starting 03/19/2020 [place] Comment on above: Daily until disconti nued starting 03/19/2020 Patient Education [facility] Work Phone: Patient referral [facility] Work Phone: End: 02-05-2019 Pulse Oximetry Spot Check Pulse Oximetry Spot Check Respiratory Care Routine One Time for 1 Occurrences starting 02/05/2019 until 02/05/2019 [place] Comment on above: One Time for 1 Occur rences starting 02/05/2019 until 02/05/2019 End: 06-08-2021 Urinalysis with Microscopic Urinalysis with Microscopic Lab STAT One Time for 1 Occurrences starting 06/08/2021 until 06/08/2021 [facility] Work Phone: Comment on above: One Time for 1 Occur rences starting 06/08/2021 until 06/08/2021 Payers Date Payer Category Payer Unknown [id number] 1980 Unknown [id number] 1980 Unknown [id number] 1961 Self-pay 1961 Worker's Compensation [id number] Unknown [id number] Social History Date Type Detail Facility Start: 10-21-2019 End: 10-11-2022 Tobacco smoking status NHIS Former smoker [place], [place] Start: 04-05-2015 End: 10-21-2019 Tobacco use and exposure Never used [place] Start: 10-21-2019 End: 06-08-2021 Alcohol intake Current non-drinker of alcohol (finding) [place], [place] Start: 1980 Sex Assigned At Not on file [place] Start: 05-29-2021 End: 06-08-2021 Exposure to SARS-CoV-2 (event) Not sure [place] Start: 12-02-2021 End: 12-19-2021 Tobacco smoking status NHIS Never smoked tobacco (finding) [facility] Start: 1980 Sex Assigned At Male F [facility] Clinical Notes 06-08-2021 to 02-01-2023 InstructionsAttachments Note Date & Type Note Facility 02-01-2023 Note This report has been cancelled. [facility] 02-01-2023 Note This report has been cancelled. [facility] 11-17-2022 Note Cardiovascular Labor atory Report FINAL [...] be checked in a week Follow-up with [place] [facility] in the [facility] in the next 2 to 3 [...] left radial artery was obtained. A 6 Cymro glide sheath was inserted without difficulty. Bilateral [...] INDICATIONS: Abnormal stress test, reduced ejection fraction [facility] 11-17-2022 Note Patient: Henrik stark Procedure Information Date/Time: 11/17/22 1030 Procedure: Coronary angiography (Bilateral) Location: [facility] 3 / [facility] (Cath) Providers: Rafat Garica MD Clinical information reviewed: Allergies Meds Physical Exam Airway Mallampati: III Neck ROM: full Cardiovascular Rhythm: regular Rate: normal Dental Pulmonary Breath sounds clear to auscultation Abdominal Abdomen: soft Bowel sounds: normal Anesthesia Plan ASA 3 other (Conscious Sedation ) Anesthetic plan and risks discussed with patient. Use of blood products discussed with patient who consented to blood products. Additional Equipment Requests [facility] 10-31-2022 Note [facility] Note Chief Complaint: Patient here for follow up [facility] for chest pain. He was seen as inpatient consult by Melania Alarcon CNP. Had inpatient stress test. HPI: Henrik Cavanaugh is a 42 y.o. male seen [...] pending the above Rafat Garcia MD, MPH, FACC, [facility], [facility] Interventional Cardiology Pager Email: [email or web address] 03-29-2022 Hospital Discharge instructions aFtoumata Sanchez, PIN TICKET MACHINE OPERATOR - BALLER TENDER - 06/08/2021 Increase your fluid intake. Take Bentyl as prescribed. Follow-up with PCP for reevaluation in the next couple of days. Avoid dairy, spicy and fatty foods for the next week. Return here for increased pain, fever, difficulty breathing, vomiting or new or worsening signs or symptoms. The following attachments cannot be sent through Care Everywhere.Gastroenteritis (Turkmen)documented in this encounter [employer] Work Phone: Evaluation note Diagnosis Enteritis- Primary Other and unspecified noninfectious gastroenteritis and colitis documented in this encounter [employer] Work Phone: evaluation noteNo assessment information available [facility] Work Phone: Hospital Discharge instructions Additional Instructions Rest ice elevate Use the wrist splint for comfort Take ibuprofen every 6 hours for discomfort [facility] or [facility] Follow-up with [facility] especially if not getting better [facility] Work Phone: Hospital Discharge instructions Additional Instructions Return for new or worsening symptoms Follow-up with family doctor and [facility] Work Phone: Hospital Discharge instructions Additional Instructions Please return to emergency department for any new or worrisome symptoms including any weakness, numbness, headache, vision changes. Follow-up with your family physician as soon as possible.[facility] Work Phone: Discharge Instructions * Attachments The following attachments cannot be sent through Care Everywhere. * Tendon Injury (Tendinopathy) (Turkmen) documented in this encounter* Instructions* Lobito Sidhu [...] Everywhere. * Coronavirus Disease (COVID-19): General Info (Turkmen) * Coronavirus Disease (COVID-19): Isolation (Turkmen) documented in this encounter* Instructions* Bambi Segal [...] Where can you learn more? Go to [email or web address] and sign in to your [employer] account. Enter M933 in the Search Health Information box to learn more about [employer]. If you do not have an account, please click on the Sign Up Now link. Current as of: January 17, 2018 Content Version: [id number] [employer]. Care instructions adapted under license by [employer] If youhave questions about a medical condition or this instruction, always ask your healthcare professional. [employer] disclaims any warranty or liability for your use of this information. 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 Latest Code Status on File Code Status Date Activated Date Inactivated Comments Full Code 02/05/2019 9:40 PM 02/07/2019 3:36 PM Full Code 06/22/2016 5:58 AM 06/22/2016 7:53 PM Documents on File Type Date Recorded 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 Internal Medicine Discharge Summary Patient ID: Henrik Cavanaugh [id number] Admission date: 02/05/2019 Discharge date: 02/07/2019 [...] no PCP but will be referred to [facility]. Discharge Exam: GEN: Awake, alert and oriented [...] stable Disposition: Discharge to Home Discharge Medications: Henrik Cavanaugh Home Medication Instructions [id number] Printed on:02/07/19 1147 Medication Information amLODIPine (NORVASC) 5 MG tablet Take 1 tablet by mouth daily Patient Instructions: Activity: activity as tolerated Diet: regular diet Wound Care: none needed Follow up with [facility] in 1-2 weeks CORE MEASURES on Discharge (if applicable) DORCAS/ARB in CHF: N/A ASA in WA: N/A Statin in WA: N/A Statin in CVA: N/A Antiplatelet in CVA: N/A Total time spent on discharge services: 25 minutes Including the following activities: Evaluation and Management of patient Discussion with patient and/or surrogate about current care plan Coordination with Case Management and/or Cook Box Filler Coordination of care with Consultants (if applicable) [...] independently in room. Reports large loose BM. * Megan Meza RN - 02/06/2019 1:25 PM EST Orders [...] of care. To: __Dr. Jean Baptiste From: [facility] Sender:_KSchwochowRN Phone Number:_[phone] This request is: Urgent - No Information [...] you. Signature Date Time * Jamir Reed, GALLERY OR MUSEUM CURATOR, ELECTRIC MOTOR REPAIRER - 02/06/2019 10:51 AM EST Social Work intial Assessment/Discharge Plan Diagnosis: Abdominal pain with Lleus Met with: Patient PCP: None. Chose [facility] Payment Source: Private. No insurance. Advance Directives: None Code Status: Full Mental Status: Alert and oriented Living Arrangement: Patient lives at home in [place] with a roommate Support Systems: Roommate and [...] Needs/Discharge Plan: Patient will return home to [place] where he resides with a roommate. He [...] 5. Fluid Accumulation-No significant fluid accumulation, 6. Nail Professional Strength-Not measured Nutrition Risk Level: Moderate Nutrient Needs: Estimated Daily Total Kcal: 6103-9005(12-17) Estimated Daily Protein (g): 95-109(1.3-1.5) Estimated Daily [...] Weight Change: , 2% loss from 290# [place] Body Wt: 160 lb (72.6 kg), % [place] Body 178% BMI Classification: BMI > or [...] Patient/Family Education, Monitor Bowel Function Contact Number: [id number] * Marija Plummer RN - 02/06/2019 4:31 [...] oriented to room, pr watching tv when entertainment reporter left room documented in this encounter [...] PHYSICIAN NO FAMILY Primary Care Provider Active ALBERT Serrato-ANILA Emergency Provider Active Team Status: Inactive Member [...] CREATED AUTHOR AUTHOR'S ORGANIZ ATION 03/04/2023 [facility] DATE CREATED AUTHOR AUTHOR'S ORGANIZ ATION 07/06/2023 [facility] DATE CREATED AUTHOR AUTHOR'S ORGANIZ ATION 02/25/2024 [facility] [...] BE BASED ON THE PRIMARY CLINICAL RECORDS. [facility] [employer] provides no warranty or guarantee of the accuracy or completeness of information in this document.
--- NOTE | 2024-02-26 08:04 | ECG_ITS ---
[facility] Test Date: 2024-02-26 Pat Name: LAWSON LOPEZ Department: Room: - Gender: Male Physician Practice Consultant: : 1980 Requested By: Isabel Rodas Order Number: [id number] Reading MD: DAILY BRINK Measurements Intervals Wells Rate: 71 P: -50 OR: 168 QRS: -33 QRSD: 86 T: 13 QT: 386 QTc: 408 Interpretive Statements 1220 Rapid atrial rhythm 1470 with occasional supraventricular premature complexes 7200 Abnormal left axis deviation 9140 abnormal rhythm ECG Compared to ECG 01/30/2024 07:31:23 Sinus rhythm no longer present Electronically Signed On 02-26-2024 20:24:32 EST by DAILY BRINK
--- NOTE | 2024-02-26 08:05 | ED_ITS ---
HPI - Dizziness General Chief Complaint: Dizziness Stated Complaint: DIZZINESS DISORIENTED TROUBLES BREATHING Time Seen by Provider: 02/26/24 07:51 History of Present Illness HPI Narrative: 44-year-old male presents to the emergency department for dizziness. It started when he awoke this morning. Last night for the first time ever he took a gabapentin pill, 600 mg. He feels like he is spinning and that he feels better with his eyes closed. No fever vomiting or injury. He is on the gabapentin for toe pain. Related Data Previous Rx's ?Medication ?Instructions ?Recorded amlodipine 10 mg tablet 10 mg PO DAILY #30 tabs 09/06/22 aspirin 81 mg chewable tablet 81 mg PO DAILY #30 tabs 09/06/22 atorvastatin 40 mg tablet (Lipitor) 40 mg PO DAILY #30 tabs 09/06/22 metoprolol tartrate 50 mg tablet 25 mg (1/2 x 50 mg) PO BID #30 tabs 09/06/22 (Lopressor) meclizine 25 mg tablet 25 mg PO TID PRN dizziness #7 tabs 02/26/24 Allergies Allergy/AdvReac Type Severity Reaction Status Date / Time amoxicillin Allergy Vomiting Verified 02/26/24 07:57 prednisone Allergy Shakiness Verified 02/26/24 07:57 narcotic AdvReac Severe Vomiting Uncoded 02/26/24 07:57 Review of Systems ROS Narrative A ten point review of systems is negative except as noted above. [facility] Medical History (Updated 02/26/24 @ 08:47 by Ashok Jean MD) Syncope and collapse ?R55 - Syncope and collapse (ICD-10) Tobacco abuse ?Z72.0 - Tobacco use (ICD-10) Dyslipidemia ?E78.5 - Hyperlipidemia, unspecified (ICD-10) HTN (hypertension) ?I10 - Essential (primary) hypertension (ICD-10) Social History (Updated 09/05/22 @ 12:28 by STEVEN FLORES) Smoking status: Former smoker Non-prescribed substance use: former substance user Non-prescribed substance use details: cocaine Little interest or pleasure in doing things: not at all Feeling down, depressed, or hopeless: not at all Exam Narrative Exam Narrative: Nurses note and vital signs reviewed and patient is not hypoxic. General: The patient appears in no apparent distress. Patient is sitting on the side of the bed with his eyes closed. Skin: Warm, dry, no pallor noted. There is no rash noted. Head: Normocephalic, atraumatic Eye: Normal conjunctiva, no drainage Ears, Nose, Mouth, and Throat: oral mucosa is moist. Nares patent. Cardiovascular: Regular Rate and Rhythm Respiratory: Patient is in no distress, no accessory muscle use, lungs are clear to auscultation, no wheezing, rales or rhonchi Back: non-tender GI: Soft and nontender Musculoskeletal: The patient has no evidence of calf tenderness, no pitting edema, symmetrical pulses noted bilaterally Neurological: A&O, normal speech; upper and lower extremity strength intact Psychiatric: Cooperative Constitutional Vital Signs, click to edit/add: Last Vital Signs Temp 97.0 F L 02/26/24 07:57 Pulse 70 02/26/24 08:46 Resp 19 02/26/24 08:46 BP 159/104 H 02/26/24 08:46 Pulse Ox 98 02/26/24 07:57 O2 Del Method Room Air 02/26/24 07:57 Course Vital Signs Vital signs: Vital Signs Temperature 97.0 F L 02/26/24 07:57 Pulse Rate 80 02/26/24 07:57 Respiratory Rate 18 02/26/24 07:57 Blood Pressure 148/106 H 02/26/24 07:57 Pulse Oximetry 98 02/26/24 07:57 Oxygen Delivery Method Room Air 02/26/24 07:57 Temperature 97.0 F L 02/26/24 07:57 Pulse Rate 70 02/26/24 08:46 Respiratory Rate 19 02/26/24 08:46 Blood Pressure 159/104 H 02/26/24 08:46 Pulse Oximetry 98 02/26/24 07:57 Oxygen Delivery Method Room Air 02/26/24 07:57 MDM - Dizziness MDM Narrative Medical decision making narrative: Blood work and EKG are negative. He was given Antivert here. My clinical impression is that his symptom is due to the Neurontin. He will discontinue it and he has given this the medication and asked us to have a pharmacy dispose of it properly. Treatment diagnosis and follow-up were discussed with the patient. Differential Diagnosis Differential diagnosis: Likely adverse reaction to drug, benign paroxysmal positional vertigo and other (Dehydration, anemia) Lab Data Attestation: I reviewed the patient's lab results. Labs: Lab Results 02/26/24 Range/Units 08:22 WBC 8.8 (4.0-11.0) 10^3/uL RBC 5.13 (4.70-6.10) 10^6/uL Hgb 15.5 (14.0-18.0) g/dL Hct 45.7 (42.0-54.0) % MCV 89.1 (80.0-94.0) fL MCH 30.2 (25.9-34.0) pg MCHC 33.9 (29.9-35.2) g/dL RDW 12.1 (11.0-15.0) % Plt Count 218 (150-450) 10^3/uL MPV 10.3 (9.5-13.5) fL Neut % (Auto) 69.8 (43.0-75.0) % Lymph % (Auto) 17.8 L (20.5-60.0) % [place] % (Auto) 8.3 (1.7-12.0) % Eos % (Auto) 2.4 (0.9-7.0) % Baso % (Auto) 1.1 (0.2-2.0) % Neut # (Auto) 6.2 (1.4-6.5) 10^3/uL Lymph # (Auto) 1.6 (1.2-3.8) 10^3/uL [place] # (Auto) 0.7 (0.3-0.8) 10^3/uL Eos # (Auto) 0.2 (0.0-0.7) 10^3/uL Baso # (Auto) 0.1 (0.0-0.1) 10^3/uL Abs Immat Gran (auto) 0.05 H (0.00-0.03) 10^3/uL Imm/Tot Granulo (auto) 0.6 H (0.0-0.5) % Sodium 142 (136-145) mmol/L Potassium 4.3 (3.5-5.1) mmol/L Chloride 104 (98-107) mmol/L Carbon Dioxide 27.3 (21.0-32.0) mmol/L Anion Gap 15.0 BUN 12.0 (7.0-18.0) mg/dL Creatinine 1.10 (0.70-1.30) mg/dL Est GFR ( Amer) >60 (>=60 mL/min/1.73m^2) Est GFR (Non-Af Amer) >60 (>=60 mL/min/1.73m^2) BUN/Creatinine Ratio 10.9 Glucose 118 H (74-106) mg/dL Calcium 9.0 (8.5-10.1) mg/dL ECG Data Attestation: I personally reviewed and interpreted this ECG as follows: (EKG on my interpretation shows normal sinus rhythm with rate of 71 and no acute change) Discharge Plan Discharge Chief Complaint: Dizziness Clinical Impression: Medication adverse effect Patient Disposition: Home, Self-Care Time of Disposition Decision: 08:47 Condition: Good Mode of Transportation: Private Vehicle Prescriptions / Home Meds: New meclizine 25 mg tablet 25 mg PO TID PRN (Reason: dizziness) Qty: 7 0RF No Action aspirin 81 mg tablet,chewable 81 mg PO DAILY Qty: 30 0RF amlodipine 10 mg tablet 10 mg PO DAILY Qty: 30 0RF metoprolol tartrate [Lopressor] 50 mg tablet 25 mg PO BID Qty: 30 0RF atorvastatin [Lipitor] 40 mg tablet 40 mg PO DAILY Qty: 30 0RF Print Language: Greek Instructions: Adverse Drug Reaction (ED) Additional Instructions: Discontinue the gabapentin Referrals: ELIAS DUKES [Primary Care Provider] - 1 week
[2024-02-26] MEDS: MECLIZINE HCL 12.5 MG TABLET 25 MG PO (08:14)
[2024-02-26 08:28] LABS: Basophils Absolute Auto 0.1 10^3/uL (0.0-0.1); Basophils Percent Auto 1.1 % (0.2-2.0); Eosinophils Absolute Auto 0.2 10^3/uL (0.0-0.7); Eosinophils Percent Auto 2.4 % (0.9-7.0); Hematocrit 45.7 % (42.0-54.0); Hemoglobin 15.5 g/dL (14.0-18.0); Immature Granulocytes Abs Auto 0.05 10^3/uL (0.00-0.03); Immature Granulocytes Pct Auto 0.6 % (0.0-0.5); Lymphocytes Absolute Auto 1.6 10^3/uL (1.2-3.8); Lymphocytes Percent Auto 17.8 % (20.5-60.0); Mean Corpuscular HGB Conc 33.9 g/dL (29.9-35.2); Mean Corpuscular Hemoglobin 30.2 pg (25.9-34.0); Mean Corpuscular Volume 89.1 fL (80.0-94.0); Mean Platelet Volume 10.3 fL (9.5-13.5); Monocytes Absolute Auto 0.7 10^3/uL (0.3-0.8); Monocytes Percent Auto 8.3 % (1.7-12.0); Neutrophils Absolute Auto 6.2 10^3/uL (1.4-6.5); Neutrophils Percent Auto 69.8 % (43.0-75.0); Platelet Count 218 10^3/uL (150-450); Red Blood Count 5.13 10^6/uL (4.70-6.10); Red Cell Distribution Width 12.1 % (11.0-15.0); White Blood Count 8.8 10^3/uL (4.0-11.0)
[2024-02-26 08:38] LABS: BUN Creatinine Ratio 10.9; Carbon Dioxide 27.3 mmol/L (21.0-32.0); Chloride 104 mmol/L (98-107); Estimated GFR (African America >60 (>=60 mL/min/1.73m^2); Estimated GFR (Non-African Ame >60 (>=60 mL/min/1.73m^2); Glucose 118 mg/dL (74-106); Potassium 4.3 mmol/L (3.5-5.1); Sodium 142 mmol/L (136-145)
== END 2024-02-26 09:04 | disposition home or self-care (01) ==
PROVIDERS: Emergency Provider Emergency Medicine; PCP Nurse Practitioner
DX: R42 Dizziness and giddiness (principal); T42.6X5A Adverse effect of other antiepileptic and sedative-hypnotic drugs, initial encounter; Z87.891 Personal history of nicotine dependence; F14.91 Cocaine use, unspecified, in remission
CPT/HCPCS: 36415; 80048; 85025; 93005; 99284

== ENCOUNTER 2024-03-01 08:35 | Emergency (ER) | payer OTHER, SELFPAY ==
[2024-03-01 08:43] VITALS: BP 150/86; PULSE 88; TEMP 37; O2SAT 95; BMI 44.1
--- OUTSIDE RECORDS SUMMARY | 2024-03-01 09:03 | XMS_ITS | CCD ---
Author Organization [facility] Care Team Providers Care Fisher Purse Seine Name Role Phone Unavailable Primary Care Provider Unavailabl e Carina Hernandez Primary Care Provider [phone] Unavailable Primary Care Provider Unavailabl e NO FAMILY, PHYSICIAN Primary Care Provider Unava ARSALAN Kamara Emergency Provider Alfie [facility] Jenelle E Emergency Provider [phone] MEENAKSHI Schmidt Emergency Provider NO FAMILY, PHYSICIAN Primary Care Provider Unava ARSALAN Kamara Emergency Provider Alfie [facility] Jenelle Emergency Provider [phone] MEENAKSHI Schmidt Emergency Provider [phone] REQUEST, NONE LISTED Primary Care Unavaila ble KIM, KATE Admitting Unavailable KIM, KATE Attending Unavailable ELADIA ALVAREZYL Consulting Unavailable AMAN PURCELL Consulting Unavailable NATHAN, NONE LISTED Primary Care Unavaila ble JESUS ., JOSEFINA Admitting Unavailable JESUS ., JOSEFINA Attending Unavailable LIDIA .JOHANNY Consulting Unavailabl e [place], James Consulting Unavailable NO FAMILY, PHYSICIAN Primary Care Provider Unava DO Kris Meek Emergency Provider [phone] MARIEL Rodas Primary Care Provider MD Socorro Osullivan Emergency Provider ELTAHAWY, EHAB Attending Unavailable [place]HAWY, EHAB Admitting Unavailable [place], EHAB Attending Unavailable [place], EHAB Referring Unavailable Isabel Vázquez Primary Care Provid er Jenelle Judge Admitting Unavailable Jenelle Judge Attending Unavailable Isabel Rodas Primary Care Unavailable Med Koenig Admitting Unavailable Med Koenig Attending Unavailable Isabel Rodas Primary Care Unavailable Allergies Allergy Classification Reported Allergen(s) Allergy Type Date of Onset Reaction(s) Facility (11 sources) Amoxicillin; Translations: [AMOXICILLIN] Drug Allergy 6 Unknown Reaction [place], [place] (6 sources) fentaNYL; Translations: [FENTANYL] Drug Allergy 9 [place] (11 sources) predniSONE; Translations: [PREDNISONE] Drug Allergy 6 Other (See Comments) [place] (1 source) Amoxicillin Drug Allergy 3 [facility] Rep[facility] (1 source) predniSONE Drug Allergy 3 [facility] (1 source) amLODIPine; Translations: [AMLODIPINE] Drug Allergy 3 [facility] Repository (1 source) Amoxicillin Drug Allergy 4 [facility] Repository (1 source) predniSONE Drug Allergy 4 [facility] Rep[facility] Medications Current Medications Medication Drug [...] 02-06-2019 amLODIPine (NO RVASC) tablet 5 mg aspirin 81 mg chewable tablet (1 source) Platelet Aggregation Inhibitor, Nonsteroidal Anti-inflammatory Drug Start: 09-06-2022 aspirin 81 mg chewable tablet 09/06/2022 Active atorvastatin 40 mg oral tablet (2 sources) HMG-CoA Reductase Inhibitor Start: 01-31-2023 take 1 tablet by mouth in the morning atorvastatin (LIPITOR) 40 mg tablet Indications: Mixed hyperlipidemia Take 1 tablet (40 mg total) by mouth in the morning. 90 tablet 1 01/31/2023 Active Start: 10-11-2022 take 40 mg by mouth once daily Atorvastatin Active 40 MG PO Daily October 11, 2022 12:00am 2 ml dicyclomine hydrochloride 10 mg/ml injection (7 sources) Anticholinergic Start: 06-08-2021 dicyclomine (B ENTYL) injection 20 mg Start: 06-08-2021 take 1 [...] End: 02-10-2019 ketorolac (TORADOL) injection 30 mg lisinopril 5 mg oral tablet (1 source) Angiotensin Converting Enzyme Inhibitor Start: 01-31-2023 take 1 tablet by mouth in the morning lisinopriL (PRINIVIL,ZESTRIL) 5 mg tablet Indications: Benign essential HTN Take 1 tablet (5 mg total) by mouth in the morning. 90 tablet 1 01/31/2023 Active magnesium hydroxide 80 mg/ml oral suspension (1 source) Start: 02-05-2019 magnesium hydroxide (MILK OF MAGNESIA) 400 MG/5ML suspension 30 mL 24 hr metoprolol succinate 50 mg extended release oral tablet (2 sources) beta-Adrenergic Bronson Start: 01-31-2023 take 1 tablet by mouth every twenty-four hours in the morning metoprolol succinate XL (TOPROL XL) 50 mg 24 hr tablet Indications: Benign essential HTN Take 1 tablet (50 mg total) by mouth in the morning. 90 tablet 1 01/31/2023 Active Start: 10-11-2022 take 50 mg by mouth once daily Metoprolol Succinate Active 50 MG PO Daily October 11, 2022 12:00am naproxen 500 mg oral tablet (3 sources) Nonsteroidal Anti-inflammatory Drug Start: 10-21-2019 take 1 tablet by mouth twice daily naproxen (NAPROSYN) 500 MG tablet Take 1 tablet by mouth 2 times daily 14 tablet 0 10/21/2019 Active predniSONE 10 mg oral tablet (1 source) Start: 01-31-2023 predniSONE (DELTASONE) 10 mg tablet Indications: Lumbar back pain Take 1 tablet (10 mg total) by mouth See Admin Instructions. 1 tab 2x daily x3 days, 1 tab daily x3 days, 1/2 tablet daily x4 days 11 tablet 01/31/2023 Active tiZANidine 2 mg oral tablet (1 source) Central alpha-2 Adrenergic Agonist Start: 01-31-2023 take 1 tablet by mouth every six hours as needed for muscle spasms tiZANidine (ZANAFLEX) 2 mg tablet Indications: Lumbar back pain , Lumbar paraspinal muscle spasm Take 1 tablet (2 mg total) by mouth every 6 (six) hours as needed for muscle spasms. 40 tablet 1 01/31/2023 Active Completed/Discontinued Medications Medication Drug Class(es) Dates [...] Chronic Coronary atherosclerosis and other heart disease (3 sources) Unstable angina; Translations: [Preinfarction syndrome] Onset: 10-31-2022 Chronic Essential hypertension (12 sources) Essential hypertension; Translations: [Essential (primary) hypertension] [...] to decreased peristalsis; Translations: [Ileus (HCC)] Episodic Mood disorders (1 source) Mood disorders Onset: 01-31-2023 01-31-2023 Nonspecific chest pain (5 sources) Chest pain; Translations: [Chest pain, unspecified] Onset: 06-22-2016 06-22-2016 Episodic Other lower respiratory disease (5 sources) Multiple nodules of lung; Translations: [Other nonspecific abnormal finding of lung field] Onset: 06-22-2016 06-22-2016 Episodic Other screening for suspected conditions (not mental disorders or infectious disease) (3 sources) Abnormal result of other cardiovascular function study; Translations: [Cardiovascular stress test abnormal] Onset: 10-31-2022 Episodic Other upper respiratory infections (4 sources) Acute pharyngitis; Translations: [Acute pharyngitis, unspecified] Onset: 04-23-2017 04-23-2017 Episodic Unclassified (1 source) Onset: 01-31-2023 01-31-2023 Results Test Name Value Interpretation Reference Range Facil ity Basic Metabolic Panelon 12- Anion gap [Moles/Vol] 12.9 mmol/L Normal 6.0-15.0 [facility] Comment on above: Performed By: #### C BC, BMP, PTT, PT, HS TROP #### [address] Calcium [Mass/Vol] 9.2 mg/dL Normal 8.6-10.3 [facility] Comment on above: Performed By: #### C BC, BMP, PTT, PT, HS TROP #### [address] Chloride [Moles/Vol] 103 mmol/L Normal 98-107 [facility] Comment on above: Performed By: #### C BC, BMP, PTT, PT, HS TROP #### [address] CO2 [Moles/Vol] 26.4 mmol/L Normal 21.0-31.0 [facility] Comment on above: Performed By: #### C BC, BMP, PTT, PT, HS TROP #### [address] Creatinine [Mass/Vol] 0.89 mg/dL Normal 0.70-1.30 [facility] Comment on above: Performed By: #### C BC, BMP, PTT, PT, HS TROP #### [address] Creatinine Clr Calc Pharmacy 140.18 Normal [facility] Comment on above: Result Comment: PERF ORMED BY: [place] [address] PATHOLOGIST LIFE CLAIMS EXAMINER FRANK ARAUJO M.D. Performed By: #### C BC, BMP, PTT, PT, HS TROP #### [address] GFR/1.73 sq M.predicted MDRD (S/P/Bld) [Vol rate/Area] mL/min/{1.73_m2} Normal [facility] Comment on above: Performed By: #### C BC, BMP, PTT, PT, HS TROP #### [address] Glucose [Mass/Vol] 108 mg/dL High 70-100 [facility] Comment on above: Result Comment: Karly senior Glucose Reference Range is dependent on time and content of last meal. Glucose of more than 200 mg/dL in a nonstressed, ambulatory subject supports the diagnosis of Diabetes Mellitus. ADA recommended reference range Performed By: #### C BC, BMP, PTT, PT, HS TROP #### [facility] [address] Potassium [Moles/Vol] 4.3 mmol/L Normal 3.5-5.1 [facility] Comment on above: Performed By: #### C BC, BMP, PTT, PT, HS TROP #### [facility] [address] Sodium [Moles/Vol] 138 mmol/L Normal 136-145 [facility] Comment on above: Performed By: #### C BC, BMP, PTT, PT, HS TROP #### [address] Urea nitrogen [Mass/Vol] 10 mg/dL Normal 7-25 [facility] Comment on above: Performed By: #### C BC, BMP, PTT, PT, HS TROP #### [address] angio neckon 02-27-2024 CT angio neck [facility] [place] [address] [place] [address] CT Scan Report Signed Patient: Henrik Cavanaugh MR#: [id number] 168 : 1980 Acct:[id number] Age/Sex: 44 / M ADM Date: 02/27/24 Loc: ER Room: Type: [facility] ER Attending Dr: Copies to: Med Koenig DO Ordering Provider: Med Koenig DO Date of Service: 02/27/24 CT/CT head/brain wo con: r/o post circ stroke ([id number]) CT/CT angio neck: r/o post circ stroke ([id number]) CT/CT angio head: r/o post circ stroke CT head/brain wo con, CT angio head, CT angio neck 02/27/2024 8:24 AM SIGNS AND SYMPTOMS: Dizziness based numbness. TECHNIQUE: Multi-detector CT angiography axial slices of the head and neck were obtained before and during intravenous administration of IV contrast material. Sagittal, coronal, and 3-D reconstructions were performed and viewed on a separate workstation. CT was performed with one or more of the following dose reduction techniques: Automated exposure control, adjustment of the mA and/or kV according to patient size, or use of iterative reconstruction technique. Stenoses were measured using the NASCET criteria. COMPARISON: CT brain 08/18/2022 FINDINGS: Noncontrast head CT: There is no evidence of midline shift, intra or extra-axial fluid collection, hemorrhage or CT evidence of stroke. Posterior fossa appears unremarkable. Visualized intraorbital contents demonstrate no acute findings. Visualized paranasal sinuses are clear. The surrounding soft tissues are normal. CTA HEAD: Posterior inferior cerebellar arteries : patent Basilar artery: patent Superior cerebellar arteries: patent Posterior cerebral arteries: patent. 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 Intracranial segments of the internal carotid arteries: Mild calcification without critical stenosis or occlusion. MCA: patent SKYALR: patent Anterior Communicating artery: patent Posterior Communicating arteries: Not present. CTA NECK: Vertebral arteries : Patent. Normal origins. Mild calcification V4 segment right vertebral artery without critical stenosis or occlusion. Common Carotid arteries: patent Internal Carotid arteries: patent No gross central airway mass. No soft tissue swelling. No lymphadenopathy. Visualized lung apices are clear. Osseous structures demonstrate degenerative change. CT/CT head/brain wo con IMPRESSION: No acute intracranial pathology. No evidence of critical stenosis, aneurysmal dilatation, dissection or occlusion. Impression dictated by: Wayne Anguiano Jr., D.O.02/27/2024 9:42 AM Dictation Location: [place] [address] Transcribed By: [facility] 02/27/24 0942 Dictated By: Wayne Anguiano Jr, DO 02/27/24 0938 Signed By: 02/27/24941 Normal [facility] Complete Blood Count Auto Di ffon 02-27-2024 Basophils (Bld) [#/Vol] 0.1 10*3/uL Normal 0.0-0.2 [facility] Comment on above: Result Comment: PERF ORMED BY: [facility] [address] PATHOLOGIST LIFE CLAIMS EXAMINER FRANK ARAUJO M.D. Performed By: #### C BC, BMP, PTT, PT, HS TROP #### [address] Basophils/100 WBC (Bld) 1.1 % Normal . [facility] Comment on above: Performed By: #### C BC, BMP, PTT, PT, HS TROP #### [address] Eosinophils (Bld) [#/Vol] 0.2 10*3/uL Normal 0.0-0.45 [facility] Comment on above: Performed By: #### C BC, BMP, PTT, PT, HS TROP #### [address] Eosinophils/100 WBC (Bld) 2.7 % Normal . [facility] Comment on above: Performed By: #### C BC, BMP, PTT, PT, HS TROP #### [address] Erythrocyte distribution width (RBC) [Ratio] 12.9 % Normal 12.0-14.8 [facility] Comment on above: Performed By: #### C BC, BMP, PTT, PT, HS TROP #### [address] Hematocrit (Bld) [Volume fraction] 46.1 % Normal 38.8-50.0 [facility] Comment on above: Performed By: #### C BC, BMP, PTT, PT, HS TROP #### [address] Hemoglobin (Bld) [Mass/Vol] 16.0 g/dL Normal 13.0-17.0 [facility] Comment on above: Performed By: #### C BC, BMP, PTT, PT, HS TROP #### [address] Lymphocytes (Bld) [#/Vol] 1.9 10*3/uL Normal 1.00-4.8 [facility] Comment on above: Performed By: #### C BC, BMP, PTT, PT, HS TROP #### [address] Lymphocytes/100 WBC (Bld) 22.3 % Normal . [facility] Comment on above: Performed By: #### C BC, BMP, PTT, PT, HS TROP #### [address] MCH (RBC) [Entitic mass] 30.7 pg Normal 27.5-35.2 [facility] Comment on above: Performed By: #### C BC, BMP, PTT, PT, HS TROP #### [address] MCV (RBC) [Entitic vol] 88.3 fL Normal 83.5-101 [facility] Comment on above: Performed By: #### C BC, BMP, PTT, PT, HS TROP #### [address] Mean Corpuscular HGB Conc 34.8 g/dL Normal 32.5-35.6 [facility] Comment on above: Performed By: #### C BC, BMP, PTT, PT, HS TROP #### [address] Monocytes (Bld) [#/Vol] 0.7 10*3/uL Normal 0.0-0.8 [facility] Comment on above: Performed By: #### C BC, BMP, PTT, PT, HS TROP #### [place] [address] [place] Monocytes/100 WBC (Bld) 19.04 % Normal 0.00-20.00 [facility] Comment on above: Performed By: #### C BC, BMP, PTT, PT, HS TROP #### [address] Monocytes/100 WBC (Bld) 8.7 % Normal . [facility] Comment on above: Performed By: #### C BC, BMP, PTT, PT, HS TROP #### [place] [address] [place] Neutrophils (Bld) [#/Vol] 5.5 10*3/uL Normal 1.8-7.7 [facility] Comment on above: Performed By: #### C BC, BMP, PTT, PT, HS TROP #### [address] Neutrophils/100 WBC (Bld) 65.2 % Normal . [facility] Comment on above: Performed By: #### C BC, BMP, PTT, PT, HS TROP #### [address] NRBC% 0.2 /100{WBC} Normal 0-0.5 [facility] Comment on above: Performed By: #### C BC, BMP, PTT, PT, HS TROP #### [address] Platelet mean volume (Bld) [Entitic vol] 8.8 fL Normal 6.6-10.[address] [facility] Comment on above: Performed By: #### C BC, BMP, PTT, PT, HS TROP #### [place] [address] [place] Platelets (Bld) [#/Vol] 230 10*3/uL Normal 150-450 [facility] Comment on above: Performed By: #### C BC, BMP, PTT, PT, HS TROP #### [place] [address] [place] RBC (Bld) [#/Vol] 5.22 10*6/uL Normal 3.90-5.60 [facility] Comment on above: Performed By: #### C BC, BMP, PTT, PT, HS TROP #### [place] [address] [place] WBC (Bld) [#/Vol] 8.5 10*3/uL Normal 4.1-10.5 [facility] Comment on above: Performed By: #### C BC, BMP, PTT, PT, HS TROP #### [facility] [address] [place] [address] [facility] ECG 12 lead ECGon 02-27-2024 ECG 12 lead ECG [facility] [place] [address] [place] [address] Electrocardiograph Report Signed Patient: Henrik Cavanaugh MR#: [id number] 168 : 1980 Acct:[id number] Age/Sex: 44 / M ADM Date: 02/27/24 Loc: ER Room: Type: [facility] ER Attending Dr: Ordering Provider: Med Koenig DO Date of Service: 02/27/24 ECG/ECG 12 lead ECG: Dizziness Copies to: Test Reason : Blood Pressure : 173/118 mmHG Vent. Rate : 94 BPM Atrial Rate : 94 BPM P-R Int : 168 ms QRS Dur : 80 ms QT Int : 356 ms P-R-T Axes : 47 -46 25 degrees QTcB Int : 445 ms Normal sinus rhythm Left anterior fascicular block Confirmed by Med Koenig DO ([id number]) on 02/27/2024 3:20:31 PM Referred By: Electronically Signed By: Med Koenig DO Transcribed By: MUS Signed By Med Koenig DO 1520 Normal [facility] Partial Thromboplastin Timeo n 02-27-2024 aPTT Coag (Bld) [Time] 29.9 s Normal 25.1-36.5 [facility] Comment on above: Result Comment: A he matocrit value greater than 55% may lead to inaccurate results in coagulation testing. Patients having hematocrit values >55% require a special collection tube for coagulation studies. Please contact the laboratory at [phone] for redraw instructions. PERFORMED BY: [place] [address] PATHOLOGIST LIFE CLAIMS EXAMINER FRANK ARAUJO M.D. Performed By: #### C BC, BMP, PTT, PT, HS TROP #### [facility] [address] [place] [address] [facility] Prothrombin Time INRon 02-26 INR Coag (PPP) [Relative time] 0.9 {INR} Normal [facility] Comment on above: Result Comment: INR Therapeutic [...] valves: 3 - 4.5 Performed By: #### C BC, BMP, PTT, PT, HS TROP #### [address] PT Coag (PPP) [Time] 10.8 s Normal 9.0-12.9 [facility] Comment on above: Result Comment: A he matocrit value greater than 55% may lead to inaccurate results in coagulation testing. Patients having hematocrit values >55% require a special collection tube for coagulation studies. Please contact the laboratory at [phone] for redraw instructions. Performed By: #### C BC, BMP, PTT, PT, HS TROP #### [place] [id number] [facility] Troponin I High Sensitivityo n 02-27-2024 Troponin I High Sensitivity 12.7 pg/mL Normal 0.0-20.0 [facility] Comment on above: Result Comment: PERF ORMED BY: [place] [address] PATHOLOGIST LIFE CLAIMS EXAMINER FRANK ARAUJO M.D. Performed By: #### C BC, BMP, PTT, PT, HS TROP #### [place] [id number] [facility] Urinalysison 02-27-2024 Appearance (U) Clear Normal Clear [facility] Comment on above: Order Comment: Name Collection Type:: Clean-Voided Midstream Performed By: #### U A #### [address] Bilirubin,Urine Negative Normal Negative [facility] Comment on above: Order Comment: Name Collection Type:: Clean-Voided Midstream Performed By: #### U A #### [place] [address] [place] Color (U) Light-Yellow Normal Yellow [facility] Comment on above: Order Comment: Name Collection Type:: Clean-Voided Midstream Performed By: #### U A #### [address] Glucose Ql (U) Normal Normal Normal [facility] Comment on above: Order Comment: Name Collection Type:: Clean-Voided Midstream Performed By: #### U A #### [address] Ketones Ql (U) Negative Normal Negative [facility] Comment on above: Order Comment: Name Collection Type:: Clean-Voided Midstream Performed By: #### U A #### [address] Leukocyte esterase Test strip Ql (U) Negative Normal Negative [facility] Comment on above: Order Comment: Name Collection Type:: Clean-Voided Midstream Performed By: #### U A #### [place] [address] [place] Nitrite,Urine Negative Normal Negative [facility] Comment on above: Order Comment: Name Collection Type:: Clean-Voided Midstream Performed By: #### U A #### [place] [address] [place] Occult Blood,Urine Negative Normal Negative [facility] Comment on above: Order Comment: Name Collection Type:: Clean-Voided Midstream Result Comment: PERF ORMED BY: [place] [address] PATHOLOGIST LIFE CLAIMS EXAMINER FRANK ARAUJO M.D. Performed By: #### U A #### [place] [address] [place] pH (U) 5.5 [pH] Normal 5.0-9.0 [facility] Comment on above: Order Comment: Name Collection Type:: Clean-Voided Midstream Performed By: #### U A #### [address] Protein,Urine Negative Normal Negative [facility] Comment on above: Order Comment: Name Collection Type:: Clean-Voided Midstream Performed By: #### U A #### [address] Specificy [place],Urine 1.033 High 1.001-1.030 [facility] Comment on above: Order Comment: Name Collection Type:: Clean-Voided Midstream Performed By: #### U A #### [address] Urobilinogen,Urine Normal Normal Normal [facility] Comment on above: Order Comment: Name Collection Type:: Clean-Voided Midstream Performed By: #### U A #### [address] XR chest 1V portableon 02-26 XR chest 1V portable [facility] [place] [address] [place] [address] XRay Report Signed Patient: Henrik Cavanaugh MR#: [id number] 168 : 1980 Acct:[id number] Age/Sex: 44 / M ADM Date: 02/27/24 Loc: ER Room: Type: PRE ER Attending Dr: Copies to: Med Koenig DO Ordering Provider: Med Koenig DO Date of Service: 02/27/24 XR/XR chest 1V portable: Dizziness SINGLE VIEW CHEST CLINICAL HISTORY: Dizziness on Monday. COMPARISON: Chest 10/11/2022 FINDINGS: Heart normal size. Lungs are clear. No free air. XR/XR chest 1V portable IMPRESSION: NO ACUTE FINDINGS Impression dictated by: Wayne Anguiano Jr., D.ODomitila02/27/2024 8:28 AM Dictation Location: [place] [address] Transcribed By: [facility] 02/27/24827 Dictated By: Wayne Anguiano Jr, DO 02/27/24827 Signed By: 02/27/24827 Normal [facility] XR foot RT min 3V*on 024 XR foot RT min 3V* [facility] [place] [address] [place] [address] XRay Report Signed Patient: Henrik Cavanaugh MR#: [id number] 168 : 1980 Acct:[id number] Age/Sex: 44 / M ADM Date: 02/15/24 Loc: ER Room: Type: [facility] ER Attending Dr: Copies to: GRISELDA Serrato [...] Tejinder Alcantara M.D.02/15/2024 12:47 PM Dictation Location: [place] [address] Transcribed By: [facility] 02/15/24 124 Dictated By: Tejinder Alcantara DO 02/15/24 1245 Signed By: 02/15/24 1247 Normal [facility] CBC with Diffon 07-04-2023 Abs. Basophil 0.06 k/uL Normal 0.00-0.[address] [facility] Comment on above: Performed By: #### C RAMÓN MELTON CP #### [facility] [address] [place] [address] Senior Account Director: Alex Amador MD Abs.Imm.Granulocyte 0.03 k/uL Normal 0.00-0.30 [facility] Comment on above: Performed By: #### C RAMÓN MELTON CP #### [facility] [address] [place] [address] Senior Account Director: Alex Amador MD Abs.Neutrophil (Seg) 7.00 k/uL Normal 1.50-8.10 [facility] Comment on above: Performed By: #### C DP, LIP, CP #### [address] [place], [place] [address] Senior Account Director: Alex Amador MD Basophils/100 WBC (Bld) 1 % Normal 0-2 [facility] Comment on above: Performed By: #### C DP, LIP, CP #### [address] [place] [address] Senior Account Director: Alex mAador MD Eosinophils (Bld) [#/Vol] 0.17 10*3/uL Normal 0.00-0.44 [facility] Comment on above: Performed By: #### C DP, LIP, CP #### [address] [place] [address] Senior Account Director: Alex Amador MD Eosinophils/100 WBC (Bld) 2 % Normal 1-4 [facility] [facility] Comment on above: Performed By: #### C DP, LIP, CP #### [address] [place] [address] Senior Account Director: Alex Amador MD Erythrocyte distribution width (RBC) [Ratio] 12.4 % Normal 11.8-14.4 [facility] Comment on above: Performed By: #### C DP, LIP, CP #### [address] [place] [address] Senior Account Director: Alex Amador MD Hematocrit (Bld) [Volume fraction] 44.6 % Normal 40.7-50.3 [facility] Comment on above: Performed By: #### C DP, LIP, CP #### [address] [place] [id number] Senior Account Director: Alex Amador MD Hemoglobin (Bld) [Mass/Vol] 15.5 g/dL Normal 13.0-17.0 [facility] Comment on above: Performed By: #### C DP, LIP, CP #### [facility] [address] [place], [place] [phone] Senior Account Director: Alex Amador MD Immature granulocytes/100 WBC (Bld) 0 % Normal 0 [facility] Comment on above: Performed By: #### C DP, LIP, CP #### [address] [place], [place] [phone] Senior Account Director: Alex Amador MD Lymphocytes (Bld) [#/Vol] 1.59 10*3/uL Normal 1.10-3.70 [facility] Comment on above: Performed By: #### C DP, LIP, CP #### [address] [place], [facility] Senior Account Director: Alex Amador MD Lymphocytes/100 WBC (Bld) 17 % Low 24-43 [facility] Comment on above: Performed By: #### C DP, LIP, CP #### [address] [place], [facility] Senior Account Director: Alex Amador MD MCH (RBC) [Entitic mass] 30.3 pg Normal 25.2-33.5 [facility] Comment on above: Performed By: #### C DP, LIP, CP #### [address] [place], [facility]83 Senior Account Director: Alex Amador MD MCHC (RBC) [Mass/Vol] 34.8 g/dL Normal 28.4-34.8 [facility] Comment on above: Performed By: #### C DP, LIP, CP #### [address] [place], [facility] Senior Account Director: Alex Amador MD MCV (RBC) [Entitic vol] 87.1 fL Normal 82.6-102.9 [facility] Comment on above: Performed By: #### C DP, LIP, CP #### [address] [place], [place] [address] Senior Account Director: Alex Amador MD Monocytes (Bld) [#/Vol] 0.78 10*3/uL Normal 0.10-1.20 [facility] Comment on above: Performed By: #### C DP, LIP, CP #### [facility] [address] [place], [facility] Senior Account Director: Alex Amador MD Monocytes/100 WBC (Bld) 8 % Normal 3-12 [facility] Comment on above: Performed By: #### C DP, LIP, CP #### [facility] [address] [place], [place] [address] Senior Account Director: Alex Amador MD Neutrophil (Seg) 72 % High 36-65 [facility] Comment on above: Performed By: #### C DP, LIP, CP #### [address] [place], [place] [address] Senior Account Director: Alex Amador MD NRBC Automated 0.0 per 100 WBC Normal 0.0 [facility] Comment on above: Performed By: #### C DP LIP, CP #### [address] [place], [place] [address] Senior Account Director: Alex Amador MD Platelet mean volume (Bld) [Entitic vol] 10.4 fL Normal 8.1-13.5 [facility] Comment on above: Performed By: #### C DP, LIP, CP #### [facility] [address] [place] [address] Dr. [place], [facility]83 Senior Account Director: Alex Amador MD Platelets (Bld) [#/Vol] 239 10*3/uL Normal 138-453 [facility] Comment on above: Performed By: #### C DP, LIP, CP #### [facility] [address] [place], [facility]83 Senior Account Director: Alex Amador MD RBC (Bld) [#/Vol] 5.12 10*6/uL Normal 4.21-5.77 [facility] Comment on above: Performed By: #### C RAMÓN MELTON, CP #### [facility] [address] [place], [place] [phone] Senior Account Director: Alex Amador MD WBC (Bld) [#/Vol] 9.6 10*3/uL Normal 3.5-11.3 [facility] Comment on above: Performed By: #### C LINH LIP, CP #### [facility] [address] [place] [address] Senior Account Director: Alex Amador MD Comp Metabolic Profon 2023 Albumin [Mass/Vol] 4.4 g/dL Normal 3.5-5.2 [facility] Comment on above: Performed By: #### C RAMÓN MELTON, CP #### [facility] [address] [place] [address] Senior Account Director: Alex Amador MD Albumin/Glob Ratio 1.2 Normal 1.0-2.5 [facility] Comment on above: Performed By: #### C RAMÓN MELTON, CP #### [facility] [address] [place] [address] Senior Account Director: Alex Amador MD Alkaline Phos 103 U/L Normal 40-[address] [facility] Comment on above: Performed By: #### C RAMÓN MELTON, CP #### [facility] [address] [place] [address] Senior Account Director: Alex Amador MD ALT [Catalytic activity/Vol] 30 U/L Normal 5-41 [facility] Comment on above: Performed By: #### C LINH LIP, CP #### [facility] [address] [place] [address] Senior Account Director: Alex Amador MD Anion gap [Moles/Vol] 10 mmol/L Normal 9-17 [facility] Comment on above: Performed By: #### C DP, LIP, CP #### [facility] [address] [place], [place] [phone] Senior Account Director: Alex Amador MD AST [Catalytic activity/Vol] 21 U/L Normal <40 [facility] Comment on above: Performed By: #### C DP, LIP, CP #### [facility] [address] [place], [place] [phone] Senior Account Director: Alex Amador MD Bilirubin [Mass/Vol] 0.7 mg/dL Normal 0.3-1.2 [facility] Comment on above: Performed By: #### C DP, LIP, CP #### [facility] [address] [place], [place] [phone] Senior Account Director: Alex Amador MD BUN/CRE Ratio 13 Normal 9-[address] [facility] Comment on above: Performed By: #### C DP, LIP, CP #### [facility] [address] [place], [place] [phone] Senior Account Director: Alex Amador MD Calcium [Mass/Vol] 9.1 mg/dL Normal 8.6-10.4 [facility] Comment on above: Performed By: #### C DP, LIP, CP #### [facility] [address] [place] [address] Dr. [place], [place] [phone] Senior Account Director: Alex Amador MD Chloride [Moles/Vol] 102 mmol/L Normal 98-107 [facility] Comment on above: Performed By: #### C DP, LIP, CP #### [facility] [address] [place], [place] [phone] Senior Account Director: Alex Amador MD CO2 [Moles/Vol] 27 mmol/L Normal 20-31 [facility] Comment on above: Performed By: #### C DP, LIP, CP #### [facility] [address] [place] [address] Senior Account Director: Alex Amador MD Creatinine [Mass/Vol] 0.8 mg/dL Normal 0.7-1.2 [facility] Comment on above: Performed By: #### C LINH LIP, CP #### [facility] [address] [place], [place] [phone] Senior Account Director: Alex Amador MD GFR/1.73 sq M.predicted among non-blacks MDRD (S/P/Bld) [Vol rate/Area] mL/min/{1.73_m2} Normal >60 [facility] Comment on above: Result Comment: These [...] By: #### C LINH LIP, CP #### [facility] [address] [place] [address] Senior Account Director: Alex Amador MD Glucose [Mass/Vol] 97 mg/dL Normal 70-99 [facility] Comment on above: Performed By: #### C RAMÓN MELTON, CP #### [facility] [address] [place], [place] 1650083 Senior Account Director: Alex Amador MD Potassium [Moles/Vol] 4.2 mmol/L Normal 3.7-5.3 [facility] Comment on above: Performed By: #### C LINH LIP, CP #### [facility] [address] [place] [address] Senior Account Director: Alex Amador MD Protein [Mass/Vol] 8.0 g/dL Normal 6.4-8.3 [facility] Comment on above: Performed By: #### C LINH LIP, CP #### [facility] [address] [place] [address] Senior Account Director: Alex Amador MD Sodium [Moles/Vol] 139 mmol/L Normal 135-144 [facility] Comment on above: Performed By: #### C DP, LIP, CP #### [facility] [address] [place] [address] Senior Account Director: Alex Amador MD Urea nitrogen [Mass/Vol] 10 mg/dL Normal 6-20 [facility] Comment on above: Performed By: #### C DP LIP, CP #### [facility] [address] [place] [address] Senior Account Director: Alex Amador MD Lipaseon 07-04-2023 Lipase [Catalytic activity/Vol] 29 U/L Normal 13-60 [facility] Comment on above: Performed By: #### C RAMÓN MELTON, CP #### [facility] [address] [place] [address] Senior Account Director: Alex Amador MD 36on 11-21-2022 36 Patient's [...] cost is very similar. Help! Thanks. Normal [facility] CBCon 11-17-2022 Erythrocyte distribution width (RBC) [Ratio] 12.9 % Normal 11.5-15.0 [facility] Comment on above: Performed By: #### L [id number] ####[facility] ([facility])[address] [place] [address] ERYTHROCYTE MEAN CORPUSCULAR HEMOGLOBIN CONCENTRATION (G/DL) BY AUTOMATED 34.2 g/dL Normal 32.0-35.0 [facility] Comment on above: Performed By: #### L [id number] ####[facility] ([facility])[address] [place], [place] [address] Hematocrit (Bld) [Volume fraction] 43.6 % Normal 39.0-55.0 [facility] Comment on above: Performed By: #### L [id number] ####[facility] ([facility])[address] [place] [address] Hemoglobin (Bld) [Mass/Vol] 14.9 g/dL Normal 13.0-17.0 [facility] Comment on above: Performed By: #### L [id number] ####[facility] ([facility])[address] [place], [place] [address] MCH (RBC) [Entitic mass] 30.2 pg Normal 27.0-33.0 [facility] Comment on above: Performed By: #### L [id number] ####[facility] ([facility])[address] [place], [place] [address] MCV (RBC) [Entitic vol] 88.4 fL Normal 82.0-98.0 [facility] Comment on above: Performed By: #### L [id number] ####[facility] ([facility])[address] [place], [place] [address] PLATELETS (10*3/UL) IN BLOOD AUTOMATED COUNT 237 10*3/uL Normal 150-400 [facility] Comment on above: Performed By: #### L [id number] ####[facility] ([facility])[address] [place], [place] [address] RBC (Bld) [#/Vol] 4.93 10*6/uL Normal 4.20-5.70 [facility] Comment on above: Performed By: #### L [id number] ####[facility] ([facility])[address] [place], [place] [address] WBC (Bld) [#/Vol] 10.15 10*3/uL Normal 4.00-10.60 [facility] Comment on above: Performed By: #### L [id number] ####[facility] ([facility])[address] [place] [address] on 11-17-2022 H&P reviewed. The patient was examined and [...] consent was signed prior to the procedure. [facility] H&P reviewed. The patient was examined and there are no changes to the H&P. Rafat Garcia MD, MPH, [facility], [facility], [facility] Interventional Cardiology Pager Email: [email or web address] NURSNOTEon 11-17-2022 NURSNOTE RN educated pt on d/c instructions. RN encouraged pt to voice any questions or concerns. Pt verbalizes no questions or concerns at this time. Pt was wheeled off of unit with all of belongings. [facility] Orders Onlyon 11-09-2022 Orders Only [id number] Henrik Cavanaugh 1980 M Date Provider Department Center 11/09/2022 [facility] RI HeartVAS Family History Problem Relation Age of Onset Coronary artery disease Mother's Brother Peripheral vascular disease Mother's Brother Family Status - Relation Status Age at Mother's Brother [facility] 10-31-2022 [facility] Cardiology Clinic Note Chief Complaint: Patient here for follow up [facility] for chest pain. He was seen [...] pending the above Rafat Garcia MD, MPH, [facility], [facility], [facility] Interventional Cardiology Pager Email: [email or web address] [facility] Office Visiton 10-31-2022 Follow-up visit [id number] Henrik Cavanaugh 1980 [facility] Provider Department Center 10/31/2022 Davie-RAFAT GARCIA CINDY Sin Family History Problem Relation Age of Onset Coronary artery disease Mother's Brother Peripheral vascular disease Mother's Brother Family Status - Relation Status Age at Mother's Brother Level of Service:39292 AL OFFICE/OUTPATIENT ESTABLISHED HIGH MDM 40-54 MIN [facility] Orders Onlyon 10-31-2022 Orders Only [id number] Henrik Cavanaugh 1980 [facility] Provider Department [place] 10/31/2022 TAE BENÍTEZ CINDY Sin Family History Problem Relation Age of Onset Coronary artery disease Mother's Brother Peripheral vascular disease Mother's Brother Family Status - Relation Status Age at Mother's Brother Normal [facility] Activated partial thrombopla stin time (aPTT) in platelet poor plasma by coagulation aOrdered By: Socorro Osullivan on 10-11-2022 aPTT Coag (PPP) [Time] 27.7 s 25.1-36.5 [facility] Basophils Auto (Bld) [#/Vol] Ordered By: Socorro Osullivan on 10-11-2022 Basophils (Bld) [#/Vol] 0.1 10*3/uL 0.0-0.2 [facility] Basophils/100 WBC Auto (Bld) Ordered By: Socorro Osullivan on 10-11-2022 Basophils/100 WBC (Bld) 0.9 % . [facility] Calcium [Mass/volume] in Ser um or PlasmaOrdered By: Socorro Osullivan on 10-11-2022 Calcium [Mass/Vol] 9.5 mg/dL 8.6-10.3 [facility] Carbon dioxide, total [Moles /volume] in Serum or PlasmaOrdered By: Socorro Osullivan on 10-11-2022 CO2 [Moles/Vol] 29.1 mmol/L 21.0-31.0 [facility] Chloride [Moles/volume] in S josselin or PlasmaOrdered By: Socorro Osullivan on 10-11-2022 Chloride [Moles/Vol] 102 mmol/L 98-107 [facility] Creatine kinase [Enzymatic a ctivity/volume] in Serum or PlasmaOrdered By: Socorro Osullivan on 10-11-2022 CK [Catalytic activity/Vol] 87 U/L 30-223 [facility] Creatinine [Mass/volume] in Serum or PlasmaOrdered By: Socorro Osullivan on 10-11-2022 Creatinine [Mass/Vol] 0.79 mg/dL 0.70-1.30 [facility] Eosinophils Auto (Bld) [#/Vo l]Ordered By: Socorro Osullivan on 10-11-2022 Eosinophils (Bld) [#/Vol] 0.2 10*3/uL 0.0-0.45 [facility] Eosinophils/100 WBC Auto (Bl d)Ordered By: Socorro Osullivan on 10-11-2022 Eosinophils/100 WBC (Bld) 2.5 % . [facility] Erythrocyte distribution wid th Auto (RBC) [Ratio]Ordered By: Socorro Osullivan on 10-11-2022 Erythrocyte distribution width (RBC) [Ratio] 13.3 % 12.0-14.8 [facility] Glucose [Mass/volume] in Ser um or PlasmaOrdered By: Socorro Osullivan on 10-11-2022 Glucose [Mass/Vol] 90 mg/dL 70-100 [facility] Comment on above: ADA recommended refe rence rangeRandom Glucose Reference Range is dependent on time and content of last meal. Glucose of more than 200 mg/dL in a nonstressed, ambulatory subject supports the diagnosis of Diabetes Mellitus. Hematocrit Auto (Bld) [Volum e fraction]Ordered By: Socorro Osullivan on 10-11-2022 Hematocrit (Bld) [Volume fraction] 40.4 % 38.8-50.0 [facility] Hemoglobin [Mass/volume] in BloodOrdered By: Socorro Osullivan on 10-11-2022 Hemoglobin (Bld) [Mass/Vol] 14.2 g/dL 13.0-17.0 [facility] Laboratory - CoagulationOrde red By: Socorro Osullivan on 10-11-2022 PT Coag (PPP) [Time] 12.0 s 9.0-12.9 [facility] Leukocytes [#/volume] correc giselle for nucleated erythrocytes in Blood by Automated counOrdered By: Socorro Osullivan on 10-11-2022 WBC corrected for nucl RBC Auto (Bld) [#/Vol] 9.5 10*3/uL 4.1-10.5 [facility] Lymphocytes Auto (Bld) [#/Vo l]Ordered By: Socorro Osullivan on 10-11-2022 Lymphocytes (Bld) [#/Vol] 1.8 10*3/uL 1.00-4.8 [facility] Lymphocytes/100 WBC Auto (Bl d)Ordered By: Socorro Osullivan on 10-11-2022 Lymphocytes/100 WBC (Bld) 18.6 % . [facility] MCH Auto (RBC) [Entitic mass ]Ordered By: Socorro Osullivan on 10-11-2022 MCH (RBC) [Entitic mass] 30.4 pg 27.5-35.2 [facility] MCHC Auto (RBC) [Mass/Vol]Or dered By: Socorro Osullivan on 10-11-2022 MCHC (RBC) [Mass/Vol] 35.1 g/dL 32.5-35.6 [facility] MCV Auto (RBC) [Entitic vol] Ordered By: Socorro Osullivan on 10-11-2022 MCV (RBC) [Entitic vol] 86.6 fL 83.5-101 [facility] Monocyte distribution width [Entitic volume] in Blood by AutomatedOrdered By: Socorro Osullivan on 10-11-2022 Monocyte distribution width Auto (Bld) [Entitic vol] 18.08 % 0.00-20.00 [facility] Monocytes Auto (Bld) [#/Vol] Ordered By: Socorro Osullivan on 10-11-2022 Monocytes (Bld) [#/Vol] 0.7 10*3/uL 0.0-0.8 [facility] Monocytes/100 WBC Auto (Bld) Ordered By: Socorro Osullivan on 10-11-2022 Monocytes/100 WBC (Bld) 7.2 % . [facility] Natriuretic peptide B [Mass/ Vol]Ordered By: Socorro Osullivan on 10-11-2022 Natriuretic peptide B (Bld) [Mass/Vol] 21.0 pg/mL 5-100 [facility] Neutrophils Auto (Bld) [#/Vo l]Ordered By: Socorro Osullivan on 10-11-2022 Neutrophils (Bld) [#/Vol] 6.7 10*3/uL 1.8-7.7 [facility] Neutrophils/100 WBC Auto (Bl d)Ordered By: Socorro Osullivan on 10-11-2022 Neutrophils/100 WBC (Bld) 70.8 % . [facility] No Panel InformationOrdered By: Socorro Osullivan on 10-11-2022 Estimated GFR (CKD-EPI) > 60.0 mL/Min [facility] Creatinine Clearance (Chem 158.41 [facility] Nucleated erythrocytes [Pres ence] in Blood by Automated countOrdered By: Socorro Osullivan on 10-11-2022 Nucleated RBC Auto Ql (Bld) 0.2 /100{WBC} 0-0.5 [facility] Platelet mean volume Auto (B ld) [Entitic vol]Ordered By: Socorro Osullivan on 10-11-2022 Platelet mean volume (Bld) [Entitic vol] 8.0 fL 6.6-10.1 [facility] Platelet poor plasma interna tional normalized ratio (INR) by coagulation assay (relatOrdered By: Socorro Osullivan on 10-11-2022 INR Coag (PPP) [Relative time] 1.0 {INR} [facility] Comment on above: INR Therapeutic Rang [...] 10-11-2022 Platelets (Bld) [#/Vol] 218 10*3/uL 150-450 [facility] Potassium [Moles/volume] in Serum or PlasmaOrdered By: Socorro Osullivan on 10-11-2022 Potassium [Moles/Vol] 3.8 mmol/L 3.5-5.1 [facility] RBC Auto (Bld) [#/Vol]Ordere d By: Socorro Osullivan on 10-11-2022 RBC (Bld) [#/Vol] 4.67 10*6/uL 3.90-5.60 [facility] Serum or plasma anion gap de terminationOrdered By: Socorro Osullivan on 10-11-2022 Anion gap [Moles/Vol] 10.7 mmol/L 6.0-15.0 [facility] Sodium [Moles/volume] in Ser um or PlasmaOrdered By: Socorro Osullivan on 10-11-2022 Sodium [Moles/Vol] 138 mmol/L 136-145 [facility] Troponin I.cardiac [Mass/vol ume] in Serum or Plasma by Detection limit <= 0.01 ng/Ordered By: Socorro Osullivan on 10-11-2022 Troponin I.cardiac DL <= 0.01 ng/mL [Mass/Vol] 6.3 pg/mL 0.0-20.0 [facility] Urea nitrogen [Mass/volume] in Serum or PlasmaOrdered By: Socorro Osullivan on 10-11-2022 Urea nitrogen [Mass/Vol] 11 mg/dL 7-25 [facility] WBC Auto (Bld) [#/Vol]Ordere d By: Socorro Osullivan on 10-11-2022 WBC (Bld) [#/Vol] 9.5 10*3/uL 4.1-10.5 [facility] BNPon 03-06-2023 Natriuretic peptide B (Bld) [Mass/Vol] 51.0 pg/mL Normal <=450.[address] [facility] Comment on above: Performed By: #### B ESME ORTEGA, BMP #### [facility] [address] [place] [address] Dr. Divina Patino CARDIAC DAT 3-6on 3 CK [Catalytic activity/Vol] 43 U/L Normal 39-[address] [facility] Comment on above: Performed By: #### L ACT #### [facility] [address] [place] [address] Dr. Divina Patino HSTROP 10.6 pg/mL Normal 4.0-76.[address] [facility] Comment on above: Result Comment: CUT- OFF POINTS HAVE BEEN ESTABLISHED BASED ON THE FOURTH UNIVERSAL DEFINITIONS OF MYOCARDIAL INFARCTION. THE UPPER REFERENCE LIMIT (URL) OF TROPONIN, DEFINED THE 99TH PERCENTILE OF cTnI DISTRIBUTION IN A REFERENCE POPULATION, HAS BEEN CONFIRMED THE DECISION THRESHOLD FOR IN DIAGNOSIS. Performed By: #### L ACT #### [facility] [address] [place] [address] Dr. Divina Patino CARDIAC DAT ADMITon 023 CK [Catalytic activity/Vol] 44 U/L Normal 39-[address] [facility] Comment on above: Performed By: #### B ESME ORTEGA, BMP #### [facility] [address] [place] [address] Dr. Divina Patino CK.MB [Mass/Vol] ng/mL Normal <=3.60 [facility] Comment on above: Performed By: #### B ACCOUNTANT BOOKKEEPER, ESME, BMP #### [facility] [address] [place] [address] Dr. Divina Patino HSTROP 9.9 pg/mL Normal 4.0-76.1 [facility] Comment on above: Result Comment: CUT- OFF POINTS HAVE BEEN ESTABLISHED BASED ON THE FOURTH UNIVERSAL DEFINITIONS OF MYOCARDIAL INFARCTION. THE UPPER REFERENCE LIMIT (URL) OF TROPONIN, DEFINED THE 99TH PERCENTILE OF cTnI DISTRIBUTION IN A REFERENCE POPULATION, HAS BEEN CONFIRMED THE DECISION THRESHOLD FOR IN DIAGNOSIS. Performed By: #### B ACCOUNTANT BOOKKEEPER, ESME, BMP #### [facility] [address] [place] [address] Dr. Divina Patino CIELO 21 ng/mL Normal 16-96 [facility] Comment on above: Performed By: #### B ACCOUNTANT BOOKKEEPER, CMADM, BMP #### [facility] [address] [place] [address] Dr. Divina Patino CBC AUTO DIFFon 05-16-2022 BASO # 0.1 103/ul Normal 0.0-0.[address] [facility] Comment on above: Performed By: #### C BC #### [facility] [address] [place] [address] Dr. Divina Patino Basophils/100 WBC (Bld) 0.6 % Normal 0.2-2.[address] [facility] Comment on above: Performed By: #### C BC #### [facility] [address] [place] [address] Dr. Divina Patino EO # 0.3 103/ul Normal 0.0-0.[address] [facility] Comment on above: Performed By: #### C BC #### [facility] [address] [place] [address] Dr. Divina Patino Eosinophils/100 WBC (Bld) 2.3 % Normal 0.9-7.[address] [facility] Comment on above: Performed By: #### C BC #### [facility] [address] [place] [address] Dr. Divina Patino Erythrocyte distribution width (RBC) [Ratio] 12.3 % Normal 11.0-15.0 [facility] Comment on above: Performed By: #### C BC #### [facility] [address] [place] [address] Dr. Divina Patino Hematocrit (Bld) [Volume fraction] 41.6 % Critically low 42.0-54.[address] [facility] Comment on above: Performed By: #### C BC #### [facility] [address] [place] [address] Dr. Divina Patino Hemoglobin (Bld) [Mass/Vol] 14.6 g/dL Normal 14.0-18.0 [facility] Comment on above: Performed By: #### C BC #### [facility] [facility] [address] [address] [address] Divina Patino IG # 0.12 10e3/ul Critically high 0.00-0.03 [facility] Comment on above: Performed By: #### C BC #### [facility] [address] [address] [address] Divina Patino IG % 1.0 % Critically high 0.0-0.5 [facility] Comment on above: Performed By: #### C BC #### [facility] [address] [place] [address] Dr. Divina Patino LYMPH # 2.7 103/ul Normal 1.2-3.[address] [facility] Comment on above: Performed By: #### C BC #### [facility] [address] [place] [address] Dr. Divina Patino Lymphocytes/100 WBC (Bld) 23.0 % Normal 20.5-60.[address] [facility] Comment on above: Performed By: #### C BC #### [facility] [address] [place] [address] Dr. Divina Patino MANUAL DIFF REQ NO Normal [facility] Comment on above: Performed By: #### C BC #### [facility] [address] [place] [address] Dr. Divina Patino MCH (RBC) [Entitic mass] 30.0 pg Normal 25.9-34.[address] [facility] Comment on above: Performed By: #### C BC #### [facility] [address] [place] [address] Dr. Divina Patino MCHC (RBC) [Mass/Vol] 35.1 g/dL Normal 29.9-35.2 [facility] Comment on above: Performed By: #### C BC #### [facility] [address] [place] [address] Dr. Divina Patino MCV (RBC) [Entitic vol] 85.6 fL Normal 80.0-94.[address] [facility] Comment on above: Performed By: #### C BC #### [facility] [address] [address] [address] Divina Patino MONO # 1.0 103/ul Critically high 0.3-0.8 [facility] Comment on above: Performed By: #### C BC #### [facility] [address] [place] [address] Dr. Divina Patino Monocytes/100 WBC (Bld) 8.6 % Normal 1.7-12.0 [facility] Comment on above: Performed By: #### C BC #### [facility] [address] [place] [address] Dr. Divina Patino NEUT # 7.4 103/ul Critically high 1.4-6.5 [facility] Comment on above: Performed By: #### C BC #### [facility] [address] [place] [address] Dr. Divina Patino Neutrophils/100 WBC (Bld) 64.5 % Normal 43.0-75.0 [facility] Comment on above: Performed By: #### C BC #### [facility] [address] [place] [address] Dr. Divina Patino Platelet mean volume (Bld) [Entitic vol] 9.9 fL Normal 9.5-13.5 [facility] Comment on above: Performed By: #### C BC #### [facility] [address] [place] [address] Dr. Divina Patino PLT 231 103/ul Normal 150-450 [facility] Comment on above: Performed By: #### C BC #### [facility] [address] [place] [address] Dr. Divina Patino RBC 4.86 106/ul Normal 4.70-6.10 [facility] Comment on above: Performed By: #### C BC #### [facility] [address] [place] [address] Dr. Divina Patino WBC 11.5 103/ul Critically high 4.0-11.0 [facility] Comment on above: Performed By: #### C BC #### [facility] [address] [place] [address] Dr. Divina Patino D-DIMERon 03-06-2023 D-DIMER 0.19 mg/L FEU Normal <=0.59 [facility] Comment on above: Performed By: #### D DIM #### [facility] [address] [place] [address] Dr. Divina Patino D-DIMER COMMENTS SEE BELOW Normal [facility] Comment on above: Result Comment: Incr eases [...] hospitalization. Performed By: #### D DIM #### [facility] [address] [place] [address] Dr. Divina Patino LACTATE/LACTIC ACIDon 2022 Lactate [Moles/Vol] 1.5 mmol/L Normal 0.4-1.9 [facility] Comment on above: Performed By: #### L ACT #### [facility] [address] [place] [address] Dr. Divina Patino PROF CHEM 8 (BAS METB)on Anion gap [Moles/Vol] 13.7 mmol/L Normal [facility] Comment on above: Performed By: #### B ACCOUNTANT BOOKKEEPER, CMADM, BMP #### [facility] [address] [place] [address] Dr. Divina Patino Calcium [Mass/Vol] 8.7 mg/dL Normal 8.5-10.1 [facility] Comment on above: Performed By: #### B ACCOUNTANT BOOKKEEPER, CMADM, BMP #### [facility] [address] [place] [address] Dr. Divina Patino Chloride [Moles/Vol] 102 mmol/L Normal 98-[address] [facility] Comment on above: Performed By: #### B ACCOUNTANT BOOKKEEPER, CMADM, BMP #### [facility] [address] [place], [place] [id number] Dr. Divina Patino CO2 [Moles/Vol] 27.1 mmol/L Normal 21.0-32.0 [facility] Comment on above: Performed By: #### B ACCOUNTANT BOOKKEEPERESME, BMP #### [facility] [address] [address] [address] Divina Patino Creatinine [Mass/Vol] 0.85 mg/dL Normal 0.70-1.[address] [facility] Comment on above: Performed By: #### B ACCOUNTANT BOOKKEEPERESME, BMP #### [facility] [address] [address] [address] Divina Patino EGFR-AF EMIRATI >60 Normal >=60 [facility] Comment on above: Performed By: #### B ACCOUNTANT BOOKKEEPERESME, BMP #### [facility] [address] [address] [address] Divina Patino EGFR-NON AF EMIRATI >60 Normal >=[address] [facility] Comment on above: Performed By: #### B ACCOUNTANT BOOKKEEPERESME, BMP #### [facility] [address] [address] [address] Divina Patino Glucose [Mass/Vol] 114 mg/dL Critically high 74-106 [facility] Comment on above: Performed By: #### B ACCOUNTANT BOOKKEEPERESME, BMP #### [facility] [address] [address] [address] Divina Patino Potassium [Moles/Vol] 3.8 mmol/L Normal 3.5-5.[address] [facility] Comment on above: Performed By: #### B ACCOUNTANT BOOKKEEPERESME, BMP #### [facility] [address] [address] [address] Divina Patino Sodium [Moles/Vol] 139 mmol/L Normal 136-145 [facility] Comment on above: Performed By: #### B ACCOUNTANT BOOKKEEPERESME, BMP #### [facility] [address] [address] [address] Divina Patino Urea nitrogen [Mass/Vol] 15.0 mg/dL Normal 7.0-18.[address] [facility] Comment on above: Performed By: #### B ACCOUNTANT BOOKKEEPER, ESME, BMP #### [facility] [address] [address] [address] Divina Patino Urea nitrogen/Creatinine [Mass ratio] 17.6 mg/mg Normal [facility] Comment on above: Performed By: #### B JORDAN, ESME, BMP #### [facility] [address] [address] [address] Divina Patino XR CHEST 1 Von [...] AMAN PURCELL Date: 2022-05-15 23:20 Normal [facility] CARDIAC DAT ADMITon 023 CK [Catalytic activity/Vol] 78 U/L Normal 39-[address] [facility] Comment on above: Performed By: #### L ACT #### [facility] [address] [place] [address] Dr. Divina Patino CK.MB [Mass/Vol] 1.08 ng/mL Normal <=3.60 [facility] Comment on above: Performed By: #### L ACT #### [facility] [address] [place] [address] Dr. Divina Patino HSTROP 12.2 pg/mL Normal 4.0-76.1 [facility] Comment on above: Result Comment: CUT- OFF POINTS HAVE BEEN ESTABLISHED BASED ON THE FOURTH UNIVERSAL DEFINITIONS OF MYOCARDIAL INFARCTION. THE UPPER REFERENCE LIMIT (URL) OF TROPONIN, DEFINED THE 99TH PERCENTILE OF cTnI DISTRIBUTION IN A REFERENCE POPULATION, HAS BEEN CONFIRMED THE DECISION THRESHOLD FOR IN DIAGNOSIS. Performed By: #### L ACT #### [facility] [address] [address] [address] Divina Patino CIELO 24 ng/mL Normal 16-96 [facility] Comment on above: Performed By: #### L ACT #### [facility] [address] [address] [address] Divina Patino CBC AUTO DIFFon 05-11-2022 BASO # 0.1 103/ul Normal 0.0-0.[address] [facility] Comment on above: Performed By: #### L ACT #### [facility] [address] [address] [address] Divina Patino Basophils/100 WBC (Bld) 0.6 % Normal 0.2-2.[address] [facility] Comment on above: Performed By: #### L ACT #### [facility] [address] [address] [address] Divina Patino EO # 0.2 103/ul Normal 0.0-0.[address] [facility] Comment on above: Performed By: #### L ACT #### [facility] [address] [place] [address] Dr. Divina Patino Eosinophils/100 WBC (Bld) 2.0 % Normal 0.9-7.[address] [facility] Comment on above: Performed By: #### L ACT #### [facility] [address] [address] [address] Divina Patino Erythrocyte distribution width (RBC) [Ratio] 12.4 % Normal 11.0-15.[address] [facility] Comment on above: Performed By: #### L ACT #### [facility] [address] [place] [address] Dr. Divina Patino Hematocrit (Bld) [Volume fraction] 43.8 % Normal 42.0-54.[address] [facility] Comment on above: Performed By: #### L ACT #### [facility] [address] [address] [address] Divina Patino Hemoglobin (Bld) [Mass/Vol] 15.3 g/dL Normal 14.0-18.[address] [facility] Comment on above: Performed By: #### L ACT #### [facility] [address] [address] [address] Divina Patino IG # 0.06 10e3/ul Critically high 0.00-0.03 [facility] Comment on above: Performed By: #### L ACT #### [facility] [address] [place] [address] Dr. Divina Patino IG % 0.6 % Critically high 0.0-0.5 [facility] Comment on above: Performed By: #### L ACT #### [facility] [address] [place] [address] Dr. Divina Patino LYMPH # 2.0 103/ul Normal 1.2-3.8 [facility] Comment on above: Performed By: #### L ACT #### [facility] [address] [place] [address] Dr. Divina Patino Lymphocytes/100 WBC (Bld) 19.9 % Critically low 20.5-60.0 [facility] Comment on above: Performed By: #### L ACT #### [facility] [address] [place] [address] Dr. Divina Patino MANUAL DIFF REQ NO Normal [facility] Comment on above: Performed By: #### L ACT #### [facility] [address] [place] [address] Dr. Divina Patino MCH (RBC) [Entitic mass] 30.2 pg Normal 25.9-34.[address] [facility] Comment on above: Performed By: #### L ACT #### [facility] [address] [place] [address] Dr. Divina Patino MCHC (RBC) [Mass/Vol] 34.9 g/dL Normal 29.9-35.2 [facility] Comment on above: Performed By: #### L ACT #### [facility] [address] [place] [address] Dr. Divina Patino MCV (RBC) [Entitic vol] 86.6 fL Normal 80.0-94.0 [facility] Comment on above: Performed By: #### L ACT #### [facility] [address] [place] [address] Dr. Divina Patino MONO # 0.8 103/ul Normal 0.3-0.8 [facility] Comment on above: Performed By: #### L ACT #### [facility] [address] [address] [address] Divina Patino Monocytes/100 WBC (Bld) 7.7 % Normal 1.7-12.0 [facility] Comment on above: Performed By: #### L ACT #### [facility] [address] [place] [address] Dr. Divina Patino NEUT # 7.1 103/ul Critically high 1.4-6.5 [facility] Comment on above: Performed By: #### L ACT #### [facility] [address] [place] [address] Dr. Divina Patino Neutrophils/100 WBC (Bld) 69.2 % Normal 43.0-75.0 [facility] Comment on above: Performed By: #### L ACT #### [facility] [address] [place] [address] Dr. Divina Patino Platelet mean volume (Bld) [Entitic vol] 10.3 fL Normal 9.5-13.5 [facility] Comment on above: Performed By: #### L ACT #### [facility] [address] [place] [address] Dr. Divina Patino PLT 238 103/ul Normal 150-450 [facility] Comment on above: Performed By: #### L ACT #### [facility] [address] [place] [address] Dr. Divina Patino RBC 5.06 106/ul Normal 4.70-6.10 [facility] Comment on above: Performed By: #### L ACT #### [facility] [address] [place] [address] Dr. Divina Patino WBC 10.3 103/ul Normal 4.0-11.0 [facility] Comment on above: Performed By: #### L ACT #### [facility] [address] [place] [address] Dr. Divina Patino CRPon 05-11-2022 CRP [Mass/Vol] mg/L Normal <=1.0 [facility] Comment on above: Performed By: #### L ACT #### [facility] [address] [place] [address] HEAD WO CONon [...] JAMES JOHNSTON Date: 2022-05-11 19:47 Normal [facility] Covid-19 PCR ([facility])on SARS-CoV-2 (COVID-19) RNA JERRICA+probe Ql (Unsp spec) Not detected Normal NOT DETECTED [facility] Comment on above: Result Comment: When diagnostic [...] for this test is supported by the [employer] of Health and Human Service's declaration that [...] longer be used). Performed By: #### C [facility] #### [facility] [address] [place] [address] Dr. Divina Patino INFLUENZA A AND B AGon 05-11 INFLUANEGH SEE BELOW Normal [facility] Comment on above: Result Comment: Nega tive for Flu A protein angiten. Infection due to Flu A cannot be ruled out. Flu A angiten in the sample may be below the detection limit of the test. Performed By: #### I NFLUAB #### [facility] [address] [place] [address] Dr. Divina Patino [facility] SEE BELOW Normal [facility] Comment on above: Result Comment: Nega tive for Flu B protein antigen. Infection due to Flu B cannot be ruled out. Flu B antigen in the sample may be below the detection limit of the test. Performed By: #### I NFLUAB #### [facility] [address] [place] [address] Dr. Divina Patino INFLUENZA A AG Negative Normal NEGATIVE SEE COMMENT [facility] Comment on above: Performed By: #### I NFLUAB #### [facility] [address] [place] [address] Dr. Divina Patino INFLUENZA B AG Negative Normal NEGATIVE SEE COMMENT [facility] Comment on above: Performed By: #### I NFLUAB #### [facility] [address] [place] [address] Dr. Divina Patino LACTATE/LACTIC ACIDon 2022 Lactate [Moles/Vol] 1.8 mmol/L Normal 0.4-1.9 [facility] Comment on above: Performed By: #### L ACT #### [facility] [address] [place] [address] Dr. Divina Patino MONOon 05-11-2022 Monocytes (Bld) [#/Vol] Negative Normal NEGATIVE [facility] Comment on above: Performed By: #### M LEANDRO #### [facility] [address] [place] [address] Dr. Divina Patino PROF CHEM 8 (BAS METB)on Anion gap [Moles/Vol] 12.8 mmol/L Normal [facility] Comment on above: Performed By: #### L ACT #### [facility] [address] [place] [address] Dr. Divina Patino Calcium [Mass/Vol] 9.1 mg/dL Normal 8.5-10.1 [facility] Comment on above: Performed By: #### L ACT #### [facility] [address] [address] [address] Divina Patino Chloride [Moles/Vol] 101 mmol/L Normal 98-[address] [facility] Comment on above: Performed By: #### L ACT #### [facility] [address] [address] [address] Divina Patino CO2 [Moles/Vol] 26.9 mmol/L Normal 21.0-32.0 [facility] Comment on above: Performed By: #### L ACT #### [facility] [address] [address] [address] Divina Patino Creatinine [Mass/Vol] 0.90 mg/dL Normal 0.70-1.[address] [facility] Comment on above: Performed By: #### L ACT #### [facility] [address] [address] [address] Divina Patino EGFR-AF EMIRATI >60 Normal >=60 [facility] Comment on above: Performed By: #### L ACT #### [facility] [address] [address] [address] Divina Patino EGFR-NON AF EMIRATI >60 Normal >=[address] [facility] Comment on above: Performed By: #### L ACT #### [facility] [address] [address] [address] Divina Patino Glucose [Mass/Vol] 110 mg/dL Critically high 74-106 [facility] Comment on above: Performed By: #### L ACT #### [facility] [address] [address] [address] Divina Patino Potassium [Moles/Vol] 3.7 mmol/L Normal 3.5-5.[address] [facility] Comment on above: Performed By: #### L ACT #### [facility] [address] [address] [address] Divina Patino Sodium [Moles/Vol] 137 mmol/L Normal 136-145 [facility] Comment on above: Performed By: #### L ACT #### [facility] [address] [address] [address] Divina Patino Urea nitrogen [Mass/Vol] 11.0 mg/dL Normal 7.0-18.[address] [facility] Comment on above: Performed By: #### L ACT #### [facility] [address] [address] [address] Divina Patino Urea nitrogen/Creatinine [Mass ratio] 12.2 mg/mg Normal [facility] Comment on above: Performed By: #### L ACT #### [facility] [address] [address] [address] Divina Patino SED RATE SYLVIAERGRENon 2022 SED RATE 16 mm/hr Critically high <=15 [facility] Comment on above: Performed By: #### L ACT #### [facility] [address] [place] [address] Dr. Divina Patino TSHon 05-11-2022 TSH 3.949 uIU/mL Critically high 0.358-3.740 [facility] Comment on above: Performed By: #### L ACT #### [facility] [address] [place] [address] Dr. Divina Patino COVID-19 SOFIAOrdered By: Andres Elizondo on 12-02-2021 SARS-CoV+SARS-CoV-2 (COVID-19) Ag IA.rapid Ql (Resp) Negative Negative [facility] Comment on above: This is a duplicate Judith SARS Antigen (ANURAG) result to be used for statistical tracking purpose only. No Panel InformationOrdered By: Elian Elizondo on 12-02-2021 SARS Antigen (LFIA) [facility] CBC with Auto Differentialon 06-08-2021 Absolute Eos # 0.11 [facility] th Absolute Immature Granulocyte 0.06 PRX Sequence Absolute Lymph # 1.65 [facility] alth Absolute [place] # 1.03 [facility] lt Basophils (Bld) [#/Vol] 0.07 10*3/uL [facility] Basophils/100 WBC (Bld) 1 % 0 - 2 % [facility] Sequence Eosinophils/100 WBC (Bld) 1 % 1 - 4 % [facility] Hematocrit (Bld) [Volume fraction] 47.5 % 40.7 - 50.3 % [facility] Hemoglobin.gastroint estinal spec 1 Ql (Stl) 16.3 g/dL 13.0 - 17.0 g/dL [facility] Immature granulocytes/100 WBC (Bld) 1 % High 0 [facility] Interpretation and review of laboratory results Abnormal [facility] Lymphocytes/100 WBC (Bld) 14 % Low 24 - 43 % [facility] MCH (RBC) [Entitic mass] 30.5 pg 25.2 - 33.5 pg [facility] MCHC (RBC) [Mass/Vol] 34.3 g/dL 28.4 - 34.8 g/dL [facility] MCV (RBC) [Entitic vol] 89.0 fL 82.6 - 102.9 fL [facility] Monocytes/100 WBC (Bld) 9 % 3 - 12 % [facility] NRBC Automated 0.0 0.0 per 100 WBC [facility] Platelet distribution width (Bld) [Ratio] 12.5 % 11.8 - 14.4 % [facility] Platelet mean volume (Bld) [Entitic vol] 10.8 fL 8.1 - 13.5 fL [facility] Platelets (Bld) [#/Vol] 231 10*3/uL [facility] RBC (Bld) [#/Vol] 5.34 10*6/uL 4.21 - 5.77 m/uL [facility] Segmented neutrophils/100 WBC (Bld) 74 % High 36 - 65 % [facility] Segs Absolute 9.05 High [facility] Healt h WBC (Bld) [#/Vol] 12.0 10*3/uL High [facility] CT ABDOMEN PELVIS W IV CONTR AST [...] PROVIDED HISTORY: abd pain TECHNOLOGIST PROVIDED HISTORY: [facility] pain Decision Support Exception - unselect [...] aneurysm. Bones/Soft Tissues: Mild multilevel thoracolumbar spondylosis. [facility] RIS CONSOLIDATED Ok Rodgers MD - 06/08/2021 EXAMINATION: [...] COMPARISON: 02/05/2019 HISTORY: ORDERING SYSTEM PROVIDED HISTORY: [facility] pain TECHNOLOGIST PROVIDED HISTORY: [facility] pain Decision Support Exception - unselect [...] stones in the left kidney. Normal appendix. [employer] Work Phone: Radiology Study observation (narrative) [place] Phone: CT ABDOMEN PELVIS W IV CONTR AST Additional Contrast? NoneOrdered By: Ok Rodgers on 06-08-2021 [facility] Phone: Comprehensive Metabolic Pane karan 06-08-2021 Albumin [Mass/Vol] 4.6 g/dL 3.5 - 5.2 g/dL [facility] Sequence Albumin/Globulin [Mass ratio] 1.5 {ratio} [facility] ALP (Bld) [Catalytic activity/Vol] 90 U/L 40 - 129 U/L [facility] ALT [Catalytic activity/Vol] 37 U/L 5 - 41 U/L [facility] Anion gap [Moles/Vol] 10 mmol/L 9 - 17 mmol/L [facility] AST [Catalytic activity/Vol] 18 U/L <[address] [facility] Bilirubin [Mass/Vol] 0.83 mg/dL 0.3 - 1.2 mg/dL [facility] Calcium [Mass/Vol] 9.7 mg/dL 8.6 - 10.4 mg/dL [facility] Chloride [Moles/Vol] 101 mmol/L 98 - 107 mmol/L [facility] CO2 [Moles/Vol] 29 mmol/L 20 - 31 mmol/L [facility] Creatinine [Mass/Vol] 0.83 mg/dL 0.70 - 1.20 mg/dL [facility] Free PSA/Total PSA [Mass fraction] 7.6 g/dL 6.4 - 8.3 g/dL [facility] Sequence GFR >60 >60 mL/min [facility] [place] GFR Non- >60 >60 mL/min [facility] Sequence Glucose [Mass/Vol] 110 mg/dL High 70 - 99 mg/dL [facility] Sequence Interpretation and review of laboratory results Abnormal [facility] [facility] Potassium [Moles/Vol] 4.2 mmol/L 3.7 - 5.3 mmol/L [facility] Sodium [Moles/Vol] 140 mmol/L 135 - 144 mmol/L [facility] Urea nitrogen (BldV) [Mass/Vol] 10 mg/dL 6 - 20 mg/dL [facility] Urea nitrogen/Creatinine (Bld) [Mass ratio] 12 [facility] Laboratory - Chemistry and C hemistry - challengeon 06-08-2021 GFR/1.73 sq M.predicted MDRD (S/P/Bld) [Vol rate/Area] [facility] Comment on above: Average GFR for 40-4 9 years old: 99 mL/min/1.73sq m Chronic Kidney Disease: <60 mL/min/1.73sq m Kidney failure: <15 mL/min/1.73sq m eGFR calculated using average adult body mass. Additional eGFR calculator available at: http://www.Spinal Kinetics/multiple_crcl_2012.htm Stage 1: Some kidney damage normal GFR Stage 2: Mild kidney damage GFR 60-89 Stage 3: Moderate kidney damage GFR 30-59 Stage 4: Severe kidney damage GFR 15-29 Stage 5: Severe kidney damage GFR <15 ESRD - chronic treatment by dialysis or transplant Lactic Acidon 06-08-2021 Lactate [Moles/Vol] 2.1 mmol/L 0.5 - 2.2 mmol/L [facility] Lipaseon 06-08-2021 Lipase [Catalytic activity/Vol] 30 U/L 13 - 60 U/L [facility] No Panel Informationon 06-08 [facility] Basic Metabolic Panelon Anion gap [Moles/Vol] 9 mmol/L 9 - 17 mmol/L [facility], [place] Bun/Cre Ratio 12 [facility]- [place] Calcium [Mass/Vol] 8.8 mg/dL 8.6 - 10.4 mg/dL [facility], [place] Chloride [Moles/Vol] 98 mmol/L 98 - 107 mmol/L [facility], [place] CO2 [Moles/Vol] 26 mmol/L 20 - 31 mmol/L [facility], [place] Creatinine [Mass/Vol] 1.04 mg/dL 0.7 - 1.2 mg/dL [place] GFR >60 >60 mL/min [place] GFR Non- >60 >60 mL/min [place] Glucose [Mass/Vol] 111 mg/dL High 70 - 99 mg/dL [place] Interpretation and review of laboratory results Abnormal [place] Potassium [Moles/Vol] 3.9 mmol/L 3.7 - 5.3 mmol/L [place] Sodium [Moles/Vol] 133 mmol/L Low 135 - 144 mmol/L [place] Urea nitrogen [Mass/Vol] 12 mg/dL 6 - 20 mg/dL [place] Brain Natriuretic Peptideon 03-19-2020 Natriuretic peptide B (Bld) [Mass/Vol] Pro-BNP Reference Range: [place] Comment on above: Rule Out: <300 Reis Zone: Age <50 300-450 Age 50-75 300-900 Age >75 300-1800 Usually represents mild to moderate HF but other cardiopulmonary causes cannot be ruled out. Rule In: Age <50 >450 Age 50-75 >900 Age >75 >1800 Natriuretic peptide B (Bld) [Mass/Vol] 60 pg/mL <300 [place] Comment on above: Pro-BNP results radha ot be compared to BNP results. CBC Auto Differentialon Basophils (Bld) [#/Vol] 0.04 10*3/uL [place] Basophils/100 WBC (Bld) 1 % 0 - 2 % [place] Differential Type NOT REPORTED [place] Eosinophils (Bld) [#/Vol] 0.04 10*3/uL [place] Eosinophils/100 WBC (Bld) 1 % 1 - 4 % [place] Erythrocyte distribution width (RBC) [Ratio] 12.5 % 11.8 - 14.4 % [place] Hematocrit (Bld) [Volume fraction] 48.2 % 40.7 - 50.3 % [place] Hemoglobin (Bld) [Mass/Vol] 16.3 g/dL 13 - 17 g/dL [place] Immature granulocytes (Bld) [#/Vol] 1 % High 0 [place] Immature granulocytes (Bld) [#/Vol] 0.07 10*3/uL [place] Interpretation and review of laboratory results Abnormal [place] Lymphocytes (Bld) [#/Vol] 1.10 10*3/uL [place] Lymphocytes/100 WBC (Bld) 13 % Low 24 - 43 % [place] MCH (RBC) [Entitic mass] 29.4 pg 25.2 - 33.5 pg [place] MCHC (RBC) [Mass/Vol] 33.8 g/dL 28.4 - 34.8 g/dL [place] MCV (RBC) [Entitic vol] 87.0 fL 82.6 - 102.9 fL [place] Monocytes (Bld) [#/Vol] 0.96 10*3/uL [place] Monocytes/100 WBC (Bld) 11 % 3 - 12 % [place] Platelet mean volume (Bld) [Entitic vol] 11.2 fL 8.1 - 13.5 fL [place] Platelets (Bld) [#/Vol] 175 10*3/uL [place] Platelets (Bld) [#/Vol] NOT REPORTED [place] RBC (Bld) [#/Vol] 5.54 10*6/uL 4.21 - 5.77 m/uL [place] RBC morphology finding Nom (Bld) NOT REPORTED [place] Segmented neutrophils/100 WBC (Bld) 73 % High 36 - 65 % [place] Segs Absolute 6.21 [place] WBC (Bld) [#/Vol] 8.4 10*3/uL [place] WBC (Bld) [#/Vol] 0.0 10*3/uL 0.0 per 100 WBC M [place] WBC Morphology NOT REPORTED [place] COVID-19, PCRon 03-19-2020 Interpretation and review of laboratory results Abnormal [place] SARS-CoV-2, Rapid DETECTED Abnormal Not Detected [place] Comment on above: Rapid NAAT: The [...] this assay. Fact sheet for Healthcare Providers: https://www.fda.gov/media/450364/download Fact sheet for Patients: https://www.fda.gov/media/804562/download Methodology: Isothermal Nucleic Acid Amplification Results reported to the appropriate Health Department Source .NASOPHARYNGEAL SWAB [place] CHEST PULMONARY EMBOLISM W CONTRASTon 03-19-2020 1. No pulmonary embolism. 2. Multifocal ground-glass opacities in the bilateral lungs with overall pattern of concern for underlying viral pneumonitis. 3. Hepatomegaly and diffuse steatosis in the abdomen, stable from remote imaging. [place] Tito, Mhpn Incoming Radiant Results From [employer] - 03/19/2020 8:26 PM EST EXAMINATION: CTA [...] in the abdomen, stable from remote imaging. [place] EXAMINATION: CTA OF THE CHEST 03/19/2020 [...] Tissues/Bones: No skeletal abnormalities throughout the chest. [place] Lactic Acid, Plasmaon 2020 Lactate [Moles/Vol] 1.2 mmol/L 0.5 - 2.2 mmol/L [place] Lactic Acid, Whole Blood NOT REPORTED 0.7 - 2.1 mmol/L [place] Metabolic Panelon 03-19-2020 GFR/1.73 sq M predicted among non-blacks MDRD (S/P/Bld) [Vol rate/Area] [place] Comment on above: Average GFR for 40-4 9 years old: 99 mL/min/1.73sq m Chronic Kidney Disease: <60 mL/min/1.73sq m Kidney failure: <15 mL/min/1.73sq m eGFR calculated using average adult body mass. Additional eGFR calculator available at: http://www.Spinal Kinetics/multiple_crcl_2012.htm Stage 1: Some kidney damage normal GFR Stage 2: Mild kidney damage GFR 60-89 Stage 3: Moderate kidney damage GFR 30-59 Stage 4: Severe kidney damage GFR 15-29 Stage 5: Severe kidney damage GFR <15 ESRD - chronic treatment by dialysis or transplant Otheron 03-19-2020 SARS-CoV-2 [place] Rapid influenza A/B antigens on 03-19-2020 Direct Exam NEGATIVE for Influenza A + B antigens. PCR testing to confirm this result is available upon request. Specimen will be saved in the laboratory for 7 days. Please call [phone] if PCR testing is indicated. [place] Special Requests NOT REPORTED [place] Specimen Description .NASOPHARYNGEAL SWAB [place] Troponinon 03-19-2020 Troponin I.cardiac [Mass/Vol] NOT REPORTED [place] Troponin T.cardiac [Mass/Vol] NOT REPORTED <0.03 ng/mL [place] Troponin, High Sensitivity 15 ng/L 0 - 22 ng/L [place] Comment on above: High Sensitivity Troponin values cannot be compared with other Troponin methodologies. Patients with high levels of Biotin oral intake (i.e >5mg/day) may have falsely decreased Troponin levels. Samples collected within 8 hours of biotin intake may require additional information for diagnosis. XR CHEST PORTABLEon 03-19-19 21 Tito, Mhpn Incoming Radiant Results From [employer] - 03/19/2020 6:06 PM EST EXAMINATION: ONE XRAY VIEW OF THE CHEST 03/19/2020 5:58 pm COMPARISON: June 27, 2018 HISTORY: ORDERING SYSTEM PROVIDED HISTORY: dyspnea TECHNOLOGIST PROVIDED HISTORY: dyspnea FINDINGS: Mild edema. Heart and mediastinum normal. Bony thorax intact. IMPRESSION: Mild edema or pneumonitis [place] EXAMINATION: ONE XRAY VIEW OF THE CHEST 03/19/2020 5:58 pm COMPARISON: June 27, 2018 HISTORY: ORDERING SYSTEM PROVIDED HISTORY: dyspnea TECHNOLOGIST PROVIDED HISTORY: dyspnea FINDINGS: Mild edema. Heart and mediastinum normal. Bony thorax intact. [place] Mild edema or pneumonitis [place] Otheron 10-21-2019 No acute abnormalities seen in the left foot or left ankle [place] EXAMINATION: THREE XRAY VIEWS OF THE [...] medial malleolus most likely from old trauma. [place] Tito, Mhpn Incoming Radiant Results From [employer] - 10/21/2019 4:26 PM EDT EXAMINATION: THREE [...] in the left foot or left ankle [place] Basic Metabolic Panel w/ Ref katrin to MGon 02-06-2019 Anion gap [Moles/Vol] 13 mmol/L 9 - 17 mmol/L [place] Bun/Cre Ratio 16 [place] Calcium [Mass/Vol] 8.4 mg/dL Low 8.6 - 10.4 mg/dL [place] Chloride [Moles/Vol] 99 mmol/L 98 - 107 mmol/L [place] CO2 [Moles/Vol] 23 mmol/L 20 - 31 mmol/L [place] Creatinine [Mass/Vol] 0.94 mg/dL 0.7 - 1.2 mg/dL [place] GFR >60 >60 mL/min [place] GFR Non- >60 >60 mL/min [place] Glucose [Mass/Vol] 130 mg/dL High 70 - 99 mg/dL [place] Interpretation and review of laboratory results Abnormal [place] Potassium [Moles/Vol] 3.7 mmol/L 3.7 - 5.3 mmol/L [place] Sodium [Moles/Vol] 135 mmol/L 135 - 144 mmol/L [place] Urea nitrogen [Mass/Vol] 15 mg/dL 6 - 20 mg/dL [place] CBCon 02-06-2019 Erythrocyte distribution width (RBC) [Ratio] 12.5 % 11.8 - 14.4 % [place] Hematocrit (Bld) [Volume fraction] 45.4 % 40.7 - 50.3 % [place] Hemoglobin (Bld) [Mass/Vol] 15.1 g/dL 13 - 17 g/dL [place] MCH (RBC) [Entitic mass] 29.8 pg 25.2 - 33.5 pg [place] MCHC (RBC) [Mass/Vol] 33.3 g/dL 28.4 - 34.8 g/dL [place] MCV (RBC) [Entitic vol] 89.5 fL 82.6 - 102.9 fL [place] Platelet mean volume (Bld) [Entitic vol] 10.4 fL 8.1 - 13.5 fL [place] Platelets (Bld) [#/Vol] 198 10*3/uL [place] RBC (Bld) [#/Vol] 5.07 10*6/uL 4.21 - 5.77 m/uL [place] WBC (Bld) [#/Vol] 0.0 10*3/uL 0.0 per 100 WBC M [place] WBC (Bld) [#/Vol] 10.7 10*3/uL [place] Culture Stoolon 02-06-2019 Campylobacter PCR NEGATIVE: No Campylobacter spp. (jejuni or coli) DNA Detected NEGATIVE: No Campylobacter spp. (jejuni or coli) DNA Detecte [place] E Coli Enterotoxigenic PCR NEGATIVE: No Enterotoxigenic E. coli (ETEC) Heat-labile and heat-stable (LT/ST) DNA Detected NEGATIVE: No Enterotoxigenic E. coli (ETEC) Heat-labile and [place] Plesiomonas Shigelloides PCR Negative NEGATIVE: No Plesionomas shigelloides DNA Detected [place] Salmonella PCR Negative NEGATIVE: No Salmonella spp. DNA Detected [place] Shigatoxin Gene PCR Negative NEGATIVE : No Shiga toxin-producing gene(s) Detected [place] Shigella Sp PCR Negative NEGATIVE: No Shigella spp. / EIEC DNA Detected [place] Specimen Description .FECES [place] Vibrio PCR NEGATIVE: No Vibrio (V. vulnificus, V, parahaemolyticus and V. cholerae) DNA Detected NEGATIVE: No Vibrio (V. vulnificus, V, parahaemolyticus and [place] Yersinia Enterocolitica PCR Negative NEGATIVE: No Yersinia enterocolitica DNA Detected [place] Metabolic Panelon 02-06-2019 GFR/1.73 sq M predicted among non-blacks MDRD (S/P/Bld) [Vol rate/Area] [place] Comment on above: Stage 1: Some [...] body mass. Additional eGFR calculator available at: http://www.ForMune.Orthopaedic Synergy/multiple_crcl_2012.htm Microscopic Urinalysison Amorphous, UA NOT REPORTED None [facility] [place] Bacteria, UA TRACE Abnormal None [place], [place] Casts UA NOT REPORTED /LPF [place] Crystals UA NOT REPORTED None /HPF [place] Epithelial Cells UA 0 TO 2 [place] Interpretation and review of laboratory results Abnormal [place] Mucus, UA TRACE Abnormal None [place] Other Observations UA NOT REPORTED NOT REQ. [place] RBC (U) [#/Vol] 0 TO 2 [place], [place] Renal Epithelial, Urine NOT REPORTED 0 /HPF [place] Trichomonas, UA NOT REPORTED None [place], [place] WBC, UA None [place] Yeast, UA NOT REPORTED None [place], [place] - [place] Urinalysis Reflex to Culture on 02-06-2019 Bilirubin Urine Negative NEGATIVE [place], [place] Color, UA YELLOW YELLOW [place] Glucose, Ur Negative NEGATIVE [place] Interpretation and review of laboratory results Abnormal [place] Ketones Ql (U) TRACE Abnormal NEGATIVE [place] Leukocyte esterase Test strip Ql (U) Negative NEGATIVE [place] Nitrite, Urine Negative NEGATIVE [place] pH, UA 5.5 [place] Protein (U) [Mass/Vol] TRACE Abnormal NEGATIVE [place] Specific [place], UA >1.030 [place] Turbidity UA CLEAR CLEAR [place] Urinalysis Comments NOT REPORTED [place] Urine Hgb 1+ Abnormal NEGATIVE [place] Urobilinogen, Urine Normal Normal [place] C DIFF TOXIN/ANTIGENon 02-05 C DIFF AG + TOXIN Negative NEGATIVE [place] Comment on above: No C. difficile anti gen and Toxin Detected. Specimen Description .FECES [place] CBCon 02-05-2019 Erythrocyte distribution width (RBC) [Ratio] 12.0 % 11.8 - 14.4 % [place] Hematocrit (Bld) [Volume fraction] 49.7 % 40.7 - 50.3 % [place] Hemoglobin (Bld) [Mass/Vol] 17.2 g/dL High 13 - 17 g/dL [place] Interpretation and review of laboratory results Abnormal [place] MCH (RBC) [Entitic mass] 30.4 pg 25.2 - 33.5 pg [place] MCHC (RBC) [Mass/Vol] 34.6 g/dL 28.4 - 34.8 g/dL [place] MCV (RBC) [Entitic vol] 87.8 fL 82.6 - 102.9 fL [place] Platelet mean volume (Bld) [Entitic vol] 10.8 fL 8.1 - 13.5 fL [place] Platelets (Bld) [#/Vol] 233 10*3/uL [place] RBC (Bld) [#/Vol] 5.66 10*6/uL 4.21 - 5.77 m/uL [place] WBC (Bld) [#/Vol] 15.0 10*3/uL [place] WBC (Bld) [#/Vol] 0.0 10*3/uL 0.0 per 100 WBC M [place] CT ABDOMEN PELVIS W IV CONTR AST Additional Contrast? Noneon 02-05-2019 Tito, Mhpn Incoming Radiant Results From [employer] - 02/05/2019 6:20 PM EST EXAMINATION: CT [...] pathologic adenopathy. Bones/Soft Tissues: Normal IMPRESSION: Ileus [place], [place] EXAMINATION: CT OF THE ABDOMEN AND [...] is no pathologic adenopathy. Bones/Soft Tissues: Normal [place] Ileus [place] Comprehensive Metabolic [place] karan 02-05-2019 Albumin [Mass/Vol] 4.6 g/dL 3.5 - 5.2 g/dL [place] Albumin/Globulin [Mass ratio] 1.4 {ratio} [place] ALP [Catalytic activity/Vol] 88 U/L 40 - 129 U/L [place] ALT [Catalytic activity/Vol] 43 U/L High 5 - 41 U/L [place] Anion gap [Moles/Vol] 19 mmol/L High 9 - 17 mmol/L [place] AST [Catalytic activity/Vol] 23 U/L <40 [place] Bilirubin Ql (U) 1.37 mg/dL High 0.3 - 1.2 mg/dL [facility] [place], [place] Bun/Cre Ratio 16 [place] Calcium [Mass/Vol] 9.4 mg/dL 8.6 - 10.4 mg/dL [place] Chloride [Moles/Vol] 96 mmol/L Low 98 - 107 mmol/L [place] CO2 [Moles/Vol] 21 mmol/L 20 - 31 mmol/L [place] Creatinine [Mass/Vol] 0.9 mg/dL 0.7 - 1.2 mg/dL [place] GFR >60 >60 mL/min [place] GFR Non- >60 >60 mL/min [place] Glucose [Mass/Vol] 119 mg/dL High 70 - 99 mg/dL [place] Interpretation and review of laboratory results Abnormal [place] Potassium [Moles/Vol] 4.2 mmol/L 3.7 - 5.3 mmol/L [place] Protein [Mass/Vol] 8.0 g/dL 6.4 - 8.3 g/dL [place] Sodium [Moles/Vol] 136 mmol/L 135 - 144 mmol/L [place] Urea nitrogen [Mass/Vol] 14 mg/dL 6 - 20 mg/dL [place] Lactic Acid, Plasmaon 2018 Interpretation and review of laboratory results Abnormal [place] Lactate [Moles/Vol] 2.4 mmol/L High 0.5 - 2.2 mmol/L [place] Lactic Acid, Whole Blood NOT REPORTED 0.7 - 2.1 mmol/L [place] Lipaseon 02-05-2019 Lipase [Catalytic activity/Vol] 32 U/L 13 - 60 U/L [place] Metabolic Panelon 02-05-2019 GFR/1.73 sq M predicted among non-blacks MDRD (S/P/Bld) [Vol rate/Area] [place] Comment on above: Average GFR for 40-4 9 years old: 99 mL/min/1.73sq m Chronic Kidney Disease: <60 mL/min/1.73sq m Kidney failure: <15 mL/min/1.73sq m eGFR calculated using average adult body mass. Additional eGFR calculator available at: http://www.Spinal Kinetics/multiple_crcl_2012.htm Stage 1: Some kidney damage normal GFR Stage 2: Mild kidney damage GFR 60-89 Stage 3: Moderate kidney damage GFR 30-59 Stage 4: Severe kidney damage GFR 15-29 Stage 5: Severe kidney damage GFR <15 ESRD - chronic treatment by dialysis or transplant Vital Signs Date Time Vital Sign Value Performing Clinician Rochelle cerrato 10-11-2022 15:03-0400 Diastolic blood pressure 81 mm[Hg] PHYSICIAN NO [facility] 10-11-2022 15:03-0400 Heart rate 75 /min PHYSICIAN NO [facility] 10-11-2022 15:03-0400 Respiratory rate 20 /min PHYSICIAN NO [facility] 10-11-2022 15:03-0400 SaO2% (BldA) [Mass fraction] 97 % PHYSICIAN NO [facility] 10-11-2022 15:03-0400 Systolic blood pressure 146 mm[Hg] PHYSICIAN NO [facility] 10-11-2022 12:17-0400 Body temperature 98.3 [degF] PHYSICIAN NO [facility] 10-11-2022 12:12-0400 Body height 175.26 cm PHYSICIAN NO [facility] 10-11-2022 12:12-0400 Body weight 128.6 kg PHYSICIAN NO [facility] 08-18-2022 12:04-0400 Body temperature 97.9 [degF] PHYSICIAN NO [facility] 08-18-2022 11:58-0400 Body height 177.8 cm PHYSICIAN NO [facility] 08-18-2022 11:58-0400 Body weight 129.36 kg PHYSICIAN NO [facility] 08-18-2022 11:58-0400 Diastolic blood pressure 115 mm[Hg] PHYSICIAN NO [facility] 08-18-2022 11:58-0400 Heart rate 107 /min PHYSICIAN NO [facility] 08-18-2022 11:58-0400 Respiratory rate 20 /min PHYSICIAN NO [facility] 08-18-2022 11:58-0400 SaO2% (BldA) [Mass fraction] 97 % PHYSICIAN NO [facility] 08-18-2022 11:58-0400 Systolic blood pressure 159 mm[Hg] PHYSICIAN NO [facility] 12-19-2021 18:32-0400 Body temperature 98.1 [degF] PHYSICIAN NO [facility] 12-19-2021 18:32-0400 Diastolic blood pressure 105 mm[Hg] PHYSICIAN NO [facility] 12-19-2021 18:32-0400 Heart rate 106 /min PHYSICIAN NO [facility] 12-19-2021 18:32-0400 Respiratory rate 20 /min PHYSICIAN NO [facility] 12-19-2021 18:32-0400 SaO2% (BldA) [Mass fraction] 96 % PHYSICIAN NO [facility] 12-19-2021 18:32-0400 Systolic blood pressure 153 mm[Hg] PHYSICIAN NO [facility] 12-19-2021 17:44-0400 Body height 177.8 cm PHYSICIAN NO [facility] 12-19-2021 17:44-0400 Body weight 134.55 kg PHYSICIAN NO [facility] 12-17-2021 09:40-0400 Body height 177.8 cm PHYSICIAN NO [facility] 12-17-2021 09:40-0400 Body temperature 98.1 [degF] PHYSICIAN NO [facility] 12-17-2021 09:40-0400 Body weight 134 kg PHYSICIAN NO [facility] 12-17-2021 09:40-0400 Diastolic blood pressure 108 mm[Hg] PHYSICIAN NO [facility] 12-17-2021 09:40-0400 Heart rate 114 /min PHYSICIAN NO [facility] 12-17-2021 09:40-0400 Respiratory rate 20 /min PHYSICIAN NO [facility] 12-17-2021 09:40-0400 SaO2% (BldA) [Mass fraction] 98 % PHYSICIAN NO [facility] 12-17-2021 09:40-0400 Systolic blood pressure 171 mm[Hg] PHYSICIAN NO [facility] 12-02-2021 14:50-0400 Body height 177.8 cm PHYSICIAN NO [facility] 12-02-2021 14:50-0400 Body temperature 98.6 [degF] PHYSICIAN NO [facility] 12-02-2021 14:50-0400 Body weight 133.2 kg PHYSICIAN NO [facility] 12-02-2021 14:50-0400 Diastolic blood pressure 102 mm[Hg] PHYSICIAN NO [facility] 12-02-2021 14:50-0400 Heart rate 117 /min PHYSICIAN NO [facility] 12-02-2021 14:50-0400 Respiratory rate 18 /min PHYSICIAN NO [facility] 12-02-2021 14:50-0400 SaO2% (BldA) [Mass fraction] 98 % PHYSICIAN NO [facility] 12-02-2021 14:50-0400 Systolic blood pressure 174 mm[Hg] PHYSICIAN NO [facility] 06-08-2021 14:28-0400 Heart rate 117 /min Fatoumata Tillman CNP Work Phone: [facility] 06-08-2021 14:28-0400 SaO2% (BldA) [Mass fraction] 95 % Fatoumata Tillman CNP Work Phone: [facility] 06-08-2021 14:22-0400 Body height 177.8 cm Fatoumata Tillman CNP Work Phone: [facility] 06-08-2021 14:22-0400 Body mass index (BMI) [Ratio] 44.77 kg/m2 Fatoumata Tillman CNP Work Phone: [facility] 06-08-2021 14:22-0400 Body temperature 98.1 [degF] Fatoumata Tillman CNP Work Phone: [facility] 06-08-2021 14:22-0400 Body weight 141.52 kg Fatoumata Sanchez INTAKE NURSE - APPLICATION SUPPORT CONSULTANT Work Phone: [facility] 06-08-2021 14:22-0400 Diastolic blood pressure 120 mm[Hg] Fatoumata Sanchez INTAKE NURSE - APPLICATION SUPPORT CONSULTANT Work Phone: [facility] 06-08-2021 14:22-0400 Respiratory rate 18 /min Fatoumata Sanchez INTAKE NURSE - APPLICATION SUPPORT CONSULTANT Work Phone: [facility] 06-08-2021 14:22-0400 Systolic blood pressure 170 mm[Hg] Fatoumata Sanchez INTAKE NURSE - APPLICATION SUPPORT CONSULTANT Work Phone: [facility] 03-19-2020 23:45-0500 BP Diastolic 101 mm[Hg] [facility] [place] 03-19-2020 23:45-0500 BP Systolic 148 mm[Hg] [facility] [place] 03-19-2020 23:45-0500 Pulse (Heart Rate) 117 /min [facility] 03-19-2020 23:45-0500 Pulse Oximetry 94 % [facility] [place] 03-19-2020 23:45-0500 Respiratory Rate 23 /min [facility] 03-19-2020 19:57-0500 Body Temperature 99.9 [degF] [facility] 03-19-2020 17:38-0500 BMI (Body Mass Index) 45.92 kg/m2 [facility] 03-19-2020 17:38-0500 Body weight 145.15 kg [facility] [place] 03-19-2020 17:38-0500 Height 177.8 cm [facility] [place] 10-21-2019 17:46-0400 BP Diastolic 103 mm[Hg] [facility] [place] 10-21-2019 17:46-0400 BP Systolic 163 mm[Hg] [facility] [place] 10-21-2019 17:37-0400 Pulse (Heart Rate) 109 /min [facility] 10-21-2019 17:37-0400 Respiratory Rate 18 /min [facility] [place] 10-21-2019 16:02-0400 BMI (Body Mass Index) 44.3 kg/m2 [place] 10-21-2019 16:02-0400 Body Temperature 97 [degF] [place] 10-21-2019 16:02-0400 Body weight 136.08 kg [place] 10-21-2019 16:02-0400 Pulse Oximetry 96 % [place] 02-07-2019 08:18-0500 Body Temperature 97.7 [degF] Dat Jacquelyn [facility] 02-07-2019 08:18-0500 BP Diastolic 102 mm[Hg] [place] 02-07-2019 08:18-0500 BP Systolic 132 mm[Hg] Dat [place] 02-07-2019 08:18-0500 Pulse (Heart Rate) 76 /min [place] 02-07-2019 08:18-0500 Pulse Oximetry 96 % Dat [place] 02-07-2019 08:18-0500 Respiratory Rate 16 /min Dat [place] 02-07-2019 04:51-0500 BMI (Body Mass Index) 42.06 kg/m2 Dat [place] Baptiste [place] 02-07-2019 04:51-0500 Body weight 129.18 kg Dat [place] 02-06-2019 08:10-0500 Height 175.3 cm Dat [place] Encounters Encounter Date Encounter Type Care Provider Facility Start: 02-27-2024 End: 02-27-2024 Emergency department patient visit Med Koenig Facility:[facility] Start: 02-26-2024 End: 02-26-2024 ambulatory Yana Navas RN [facility] Start: 02-15-2024 End: 02-15-2024 Emergency department patient visit Jenelle Judge Facility:[facility] Start: 07-04-2023 End: 07-04-2023 Emergency department patient visit [facility] Start: 11-17-2022 End: 11-17-2022 ambulatory AB [facility] Start: 10-31-2022 End: 10-31-2022 ambulatory EHAB [facility] Start: 10-11-2022 End: 10-11-2022 Emergency department patient visit PHYSICIAN NO [facility] Work Phone: Start: 08-18-2022 End: 08-18-2022 Emergency department patient visit PHYSICIAN NO [facility] Work Phone: Start: 05-15-2022 End: 05-16-[address] NONE LISTED REQUEST Facility:[facility]1 Start: 05-11-2022 End: 05-11-[address] NONE LISTED REQUEST Facility:[facility] Start: 01-21-2022 End: 01-21-2022 ambulatory PHYSICIAN NO [facility] Work Phone: Start: 01-21-2022 End: 01-21-2022 Discharged Recurring PHYSICIAN NO [facility] [address] [address] Start: 12-19-2021 End: 12-19-2021 Emergency department patient visit PHYSICIAN NO [facility] Start: 12-17-2021 End: 12-17-2021 Emergency department patient visit PHYSICIAN NO [facility] Start: 12-02-2021 End: 12-02-2021 Emergency department patient visit PHYSICIAN NO [facility] Start: 06-08-2021 End: 06-08-2021 Emergency department patient visit Fatoumata Sanchez APRN - APPLICATION SUPPORT CONSULTANT Work Phone: [facility] ED Comment on above: Enteritis (Primary D x) Start: 03-19-2020 End: 03-20-2020 Emergency department patient visit [facility] ED Comment on above: COVID-19 (Primary Dx ) Start: 10-21-2019 End: 10-21-2019 Emergency department patient visit [facility] ED Comment on above: Left Achilles tendin itis (Primary Dx) Start: 02-05-2019 End: 02-07-2019 Evaluation and management of inpatient Dat Jean Baptiste Work Phone: [facility] Comment on above: Ileus (HCC) (Primary Dx) Procedures Date Procedure Procedure Detail Performing Clinician Start: 01-31-2023 Adult depression scr eening assessment Yana Navas RN Start: 10-11-2022 Plain chest X-ray PHYSI FELA NO FAMILY Start: 08-18-2022 CT of head without contrast PHYSICIAN NO FAMILY Start: 12-17-2021 Plain X-ray of right wrist PHYSICIAN NO FAMILY Start: 12-02-2021 Plain chest X-ray PHYSI FELA NO FAMILY Start: 06-08-2021 Ct abdomen & pelvis w/contrast material Fatoumata Sanchez INTAKE NURSE - APPLICATION SUPPORT CONSULTANT Work Phone: Start: 06-08-2021 Comprehensive metabo lic panel Fatoumata Sanchez INTAKE NURSE - APPLICATION SUPPORT CONSULTANT Work Phone: Start: 03-19-2020 Ct thorax w/contrast material Arabella Blandon Work Phone: Start: 03-19-2020 COVID-19 [facility] Work Phone: Start: 03-19-2020 [facility] Work [facility]: Start: 03-19-2020 Assay of lactate Arabella Barber Work Phone: Start: 03-19-2020 Assay of troponin quantitative Hari Rodriguez Start: 03-19-2020 Basic metabolic pane l calcium total Hari Rodriguez Start: 03-19-2020 Blood count complete auto&auto difrntl wbc Hari Rodriguez Start: 03-19-2020 Natriuretic peptide Maico haraysa Rodriguez Start: 03-19-2020 Radiologic exam ches t [...] Phone: Start: 02-06-2019 Urinalysis microscop ic only [employer] Work Phone: Start: 02-06-2019 Urnls dip stick/tabl et rgnt auto w/o microscopy [employer] Work Phone: Start: 02-05-2019 Cul bact stool aerob ic isol salmonella&shigell [employer] Work Phone: Start: 02-05-2019 Toxin/antitoxin assa y tissue culture [employer] Work Phone: Start: 02-05-2019 Ct abdomen & pelvis w/contrast material [employer] Work Phone: Start: 02-05-2019 Assay of lactate [employer] Work Phone: Start: 02-05-2019 Assay of lipase [facility] Work Phone: Start: 02-05-2019 Blood count complete automated [employer] Work Phone: Start: 02-05-2019 Comprehensive metabo lic panel [employer] Work Phone: SARS Antigen (LFIA) PHYSICIA N NO FAMILY Plan of Treatment Date Care Activity Detail Author Start: 02-01-2024 Adult BMI Screening Adult BMI Screen ing [facility] Sequence [facility] Start: 02-01-2024 Depression Screening Depression Scre ening [facility] Sequence [facility] Start: 02-01-2024 Tobacco Screening Tobacco Screening [facility] Start: 11-12-2023 Influenza vaccination Influenza Vacc ine [facility] Start: 2023 Screening for malign ant neoplasm of colon Colonoscopy [facility] Start: 06-08-2022 Creatinine measurement Creatinine mo [facility] Start: 06-08-2022 Potassium monitoring Potassium monit [facility] Start: 03-19-2021 Creatinine measurement Creatinine mo [place] Start: 03-19-2021 Potassium monitoring Potassium monit [place] Start: 11-11-2020 Influenza vaccination Flu vaccine (# 1) [facility] Start: 02-07-2020 Creatinine measurement Creatinine mo [place] Start: 02-07-2020 Potassium monitoring Potassium monit [place] Start: 11-12-2019 Influenza vaccination Flu vaccine (# 1) [place] Start: 06-28-2019 Creatinine monitoring Creatinine mon itoring [place] Start: 06-28-2019 Potassium monitoring Potassium monit [place] Start: 11-11-2018 Influenza vaccination Flu vaccine (# 1) [place] Start: 2018 Diabetes screen Diabetes screen [place], [place] Start: 2018 Lipid panel Lipid screen [facility] Start: 2018 Lipid screen Lipid screen [place], [place] Start: 2013 Diabetes screen Diabetes screen [facility] Start: 1997 DTaP,Tdap and Td Vaccines (1 - Tdap) DTaP,Tdap and Td Vaccines (1 - Tdap) [facility] Start: 1997 DTaP/Tdap/Td vaccine (1 - Tdap) DTaP/Tdap/Td vaccine (1 - Tdap) [facility] Start: 1993 HIV screen HIV screen [place], [place] Start: [address] HIV [address] [facility] Start: 1990 Depression Screen Depression Screen [facility] Start: 1989 DTaP/Tdap/Td vaccine (1 - Tdap) DTaP/Tdap/Td vaccine (1 - Tdap) [place] Start: 1983 COVID-19 Vaccine (1) COVID-19 Vaccin e (1) [facility] Start: 1978 Hepatitis C screening Hepatitis C sc reen [facility] End: 03-19-2020 Culture, Blood 1 Culture, Blood 1 Microbiology STAT One Time for 1 Occurrences starting 03/19/2020 until 03/19/2020 [place] Comment on above: One Time for 1 Occur rences starting 03/19/2020 until 03/19/2020 Culture, Blood 1 Culture, Blood 1 Microbiology STAT 03/19/2020 6:00 PM [facility] EKG 12 Lead ECG STAT 03/19/2020 5:53 PM EST [facility] Initiate Oxygen Ther apy Protocol Initiate Oxygen Therapy Protocol Respiratory Care Routine Daily until discontinued starting 02/05/2019 [facility] Comment on above: Daily until disconti nued starting 02/05/2019 Nasal Cannula Oxygen Nasal Cannu la Oxygen Respiratory Care STAT Daily until discontinued starting 03/19/2020 [facility] Comment on above: Daily until disconti nued starting 03/19/2020 Patient Education [facility] Work Phone: Patient referral [facility] Work Phone: End: 02-05-2019 Pulse Oximetry Spot Check Pulse Oximetry Spot Check Respiratory Care Routine One Time for 1 Occurrences starting 02/05/2019 until 02/05/2019 [facility] Comment on above: One Time for 1 Occur rences starting 02/05/2019 until 02/05/2019 End: 06-08-2021 Urinalysis with Microscopic Urinalysis with Microscopic Lab STAT One Time for 1 Occurrences starting 06/08/2021 until 06/08/2021 [facility] Work Phone: Comment on above: One Time for 1 Occur rences starting 06/08/2021 until 06/08/2021 Payers Date Payer Category Payer Unknown [id number] 2022 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 [employer] [id number] 1978 Unknown [id number] 1978 Unknown [id number] 1959 Self-pay 1959 Worker's Compensation [id number] Unknown [id number] Unknown [id number] Social History Date Type Detail Facility Start: 10-21-2019 End: 10-04-2022 Tobacco smoking status [facility] Former smoker [place] Start: 10-21-2019 End: 10-04-2022 Tobacco use and exposure Never used [place] Start: 10-21-2019 End: 06-08-2021 Alcohol intake Current non-drinker of alcohol (finding) [place] Start: 1980 Sex Assigned At Not on file [place] Start: 05-29-2021 End: 06-08-2021 Exposure to SARS-CoV-2 (event) Not sure [place] Start: 12-02-2021 End: 12-19-2021 Tobacco smoking status [facility] Never smoked tobacco (finding) [facility] Start: 1980 Sex Assigned At Male F [facility] End: 09-06-2022 History of tobacco use Current smoker [facility] End: 09-06-2022 History of tobacco use Cigarette Smoker [facility] Start: 01-31-2023 Alcoholic beverage intake Current drinker of alcohol (finding) [facility] Start: 01-31-2023 History of Social function [facility] Start: 01-31-2023 Tobacco use panel [facility] Adolescent depressio n screening assessment 2 [facility] Start: 10-04-2022 Alcohol Comment Social [facility] Start: 09-22-2022 Sex Male (finding) [facility] Clinical Notes 06-08-2021 to 02-26-2024 Telephone Encounter - Yana Navas RN - 02/26/2024 7:12 AM ESTTelephone Encounter - Yana Navas RN - 02/26/2024 7:12 AM ESTInstructionsAttachments Note Date & Type Note Facility 02-26-2024 Miscellaneous Notes ----- Message from Livia sent at 02/26/2024 7:11 AM EST ----- Contract: 198 Matti started taking Gabapentin 600 mg last night and this morning he feels dizzy and disoriented with heavy breathing Contract: 198 Patient's girlfriend calling the after hours this morning- she voices that Emmanuel started taking Gabapentin (600 mg) last night This morning Henrik is extremely disoriented and very dizzy- he is having difficulty walking Caller reports that it took Henrik over 3 minutes just to walk to the bathroom this morning Heavy Breathing and SOB Denies one sided weakness/numbness/tingling Advised caller to call 911 to have EMS evaluate patient Caller voiced understanding and agreed Reason for Disposition Difficult to awaken or acting confused (e.g., disoriented, slurred speech) Protocols used: Breathing [id number] documented in this encounter [facility] 02-26-2024 Telephone encounter Note ----- Message from Livia sent at 02/26/2024 7:11 AM EST ----- Contract: 198 Matti started taking Gabapentin 600 mg last night and this morning he feels dizzy and disoriented with heavy breathing [facility] 02-26-2024 Telephone encounter Note Contract: 198 Patient's girlfriend calling the after hours this morning- she voices that Emmanuel started taking Gabapentin (600 mg) last night This morning Henrik is extremely disoriented and very dizzy- he is having difficulty walking Caller reports that it took Henrik over 3 minutes just to walk to the bathroom this morning Heavy Breathing and SOB Denies one sided weakness/numbness/tingling Advised caller to call 911 to have EMS evaluate patient Caller voiced understanding and agreed Reason for Disposition Difficult to awaken or acting confused (e.g., disoriented, slurred speech) Protocols used: Breathing [id number]-01-2023 Note This report has been cancelled. [facility] 02-01-2023 Note This report has been cancelled. [facility] 11-17-2022 Note Cardiovascular Labor atory Report FINAL [...] be checked in a week Follow-up with [facility] in the [facility] in the next 2 to 3 months [...] left radial artery was obtained. A 6 Irish glide sheath was inserted without difficulty. 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 Additional Equipment Requests [facility] 10-31-2022 Note [facility] Note Chief Complaint: Patient here for follow up [facility] for chest pain. He was seen [...] pending the above Rafat Garcia MD, MPH, [facility], [facility], [facility] Interventional Cardiology Pager Email: [email or web address] 06-08-2021 Hospital Discharg e Fatoumata Marquez, INTAKE NURSE - APPLICATION SUPPORT CONSULTANT - 06/08/2021 Increase your fluid intake. Take Bentyl as prescribed. Follow-up with PCP for reevaluation in the next couple of days. Avoid dairy, spicy and fatty foods for the next week. Return here for increased pain, fever, difficulty breathing, vomiting or new or worsening signs or symptoms. The following attachments cannot be sent through Care Everywhere.Gastroenteritis (Senegalese)documented in this encounter [employer] Work Phone: Evaluation note Diagnosis Enteritis- Primary Other and unspecified noninfectious gastroenteritis and colitis documented in this encounter [employer] Work Phone: evaluation noteNo assessment information available [facility] Work Phone: Hospital Discharge instructions Additional Instructions Rest ice elevate Use the wrist splint for comfort Take ibuprofen every 6 hours for discomfort Follow-up with either [facility] Follow-up with [facility] especially if not getting better [facility] Work Phone: Hospital Discharge instructions Additional Instructions Return for new or worsening symptoms Follow-up with family doctor and [facility] Work Phone: Hospital Discharge instructions Additional Instructions Please return to emergency department for any new or worrisome symptoms including any weakness, numbness, headache, vision changes. Follow-up with your family physician as soon as possible.[facility] Work Phone: InstructionsNot on filedocumented in this encounter [facility] Discharge Instructions * Attachments The following attachments cannot be sent through Care Everywhere. * Tendon Injury (Tendinopathy) (Senegalese) documented in this encounter* Instructions* Lobito Sidhu [...] Everywhere. * Coronavirus Disease (COVID-19): General Info (Senegalese) * Coronavirus Disease (COVID-19): Isolation (Senegalese) documented in this encounter* Instructions* Bambi Segal [...] Where can you learn more? Go to [email or web address] and sign in to your [employer] account. Enter M933 in the Search Health Information box to learn more about Learning About Ileus. If you do not have an account, please click on the Sign Up Now link. Current as of: January 17, 2018 Content Version: [id number] [employer]. Care instructions adapted under license by [employer]. If youhave questions about a medical condition or this instruction, always ask your healthcare professional. [employer] disclaims any warranty or liability for your use of this information. 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 Advance Directives and Living Will Power of Pattern Marking Supervisor Latest Code Status on File Code Status Date Activated Date Inactivated Comments Full Code 02/05/2019 9:40 PM 02/07/2019 3:36 PM Full Code 06/22/2016 5:58 AM 06/22/2016 7:53 PM Documents on File Type Date Recorded 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 Internal Medicine Discharge Summary Patient ID: Henrik Cavanaugh [id number] Admission date: 02/05/2019 Discharge date: 02/07/2019 [...] no PCP but will be referred to [facility]. Discharge Exam: GEN: Awake, alert and [...] Discharge Medications: Henrik Cavanaugh Home Medication Instructions [id number]:[id number] Printed on:02/07/19 1147 Medication Information amLODIPine (NORVASC) 5 MG tablet Take 1 tablet by mouth daily Patient Instructions: Activity: activity as tolerated Diet: regular diet Wound Care: none needed [facility] 1[facility]2 weeks CORE MEASURES on Discharge (if applicable) DORCAS/ARB in CHF: N/A ASA in IN: N/A Statin in IN: N/A Statin in CVA: N/A Antiplatelet in CVA: N/A Total time spent on discharge services: 25 minutes Including the following activities: Evaluation and Management of patient Discussion with patient and/or surrogate about current care plan Coordination with Case Management and/or [employer] Coordination of care with Consultants (if applicable) [...] independently in room. Reports large loose BM. GA * Megan Meza RN - 02/06/2019 1:25 [...] Resting in bed, call light in reach. GA * Megan Meza RN - 02/06/2019 10:56 AM EST Facsimile [...] of care. To: __Dr. Jean Baptiste From: [facility] Sender:_KSchwochowRN Phone Number:_[phone] This request is: Urgent - No Information [...] Lleus Met with: Patient PCP: None. Chose [facility] Payment Source: Private. No insurance. Advance Directives: None Code Status: Full Mental Status: Alert and oriented Living Arrangement: Patient lives at home in [place] with a roommate Support Systems: Roommate and [...] Needs/Discharge Plan: Patient will return home to [place] where he resides with a roommate. He states that he is able to support himself through employment. This patient does not anticipate any needs at this point. * Rancho gNuyen RD, LD - 02/06/2019 8:10 AM EST [...] 5. Fluid Accumulation-No significant fluid accumulation, 6. Foreclosure Field Inspector Strength-Not measured Nutrition Risk Level: Moderate Nutrient Needs: Estimated Daily Total Kcal: 1704-4251(12-17) Estimated Daily Protein (g): 95-109(1.3-1.5) Estimated Daily [...] Weight Change: , 2% loss from 290# [place] Body Wt: 160 lb (72.6 kg), % [place] Body 178% BMI Classification: BMI > or [...] Patient/Family Education, Monitor Bowel Function Contact Number: [id number] * Marija Plummer RN - 02/06/2019 4:31 [...] oriented to room, pr watching tv when business process specialist left room documented in this encounter Chief Complaint and Reason for Visit Chief Complaint chest congestion Chief Complaint chest congestion rt wrist pain zitao janelle rich Chief Complaint chest congestion rt wrist pain ico janelle rich Rt wrist pain Chief Complaint chest congestion rt wrist pain zitao janelle rich Rt wrist pain rt wrist injury Chief Complaint dizzy , nausea hit h ead ico @janelle rich 6/7 numbness in hands/face Summary Purpose Family History No Family History Records FoundNo Family History Records FoundNo Family History Records FoundNo Family History Records Found Additional Source Comments Reason for Visit (unrecogniz ed section and content) Reason Onset Date Comments Dizziness 02/26/2024 Shortness of Breath 02/26/2024 Reason Comments Abdominal Pain Diffuse, bloating. O [...] [id number] (Given - Provid er: Wilfredo Reynolds, GILDARDO) PRN Medication Order 06/06/2021 06/07/2021 06/08/2021 iopamidol [...] NO FAMILY Primary Care Provider Active ALBERT Serrato- Emergency Provider Active Team Status: Inactive Member Role Status Dates PHYSICIAN NO FAMILY Primary Care Provider Active Elian Elizondo APRN Emergency Provider Active Team Status: Active Member Role Status Dates PHYSICIAN NO FAMILY Primary Care Provider Active Team Status: Active Member Role Status Dates Isabel Rodas ACCOUNTANT BOOKKEEPER-C Primary Care Provider Active Team Status: Inactive Member Role Status Dates PHYSICIAN NO FAMILY Primary Care Provider Active Kris Narvaez DO Emergency Provider Active Team Status: Inactive Member Role Status Dates Isabel Rodas NP-C Primary Care Provider Active Socorro Osullivan MD Emergency Provider Active Fisher Purse Seine Relationship Specialty Start Date End Date Isabel Rodas APRN-APPLICATION SUPPORT CONSULTANT [address] [place] [address] PCP - General Family Medicine 10/04/22 Goals (unrecognized section and content) Goals may be documented in a n alternate sectionGoals may be documented in an alternate sectionGoals may be documented in an alternate sectionGoals may be documented in an alternate sectionGoals may be documented in an alternate sectionNot on filedocumented as of this encounter (unrecognized sect ion and content) No Status Records FoundNo Status Records FoundNo Status Records FoundNo Status Records Found INFORMATION SOURCE (unrecogn ized section and content) DATE CREATED AUTHOR 05/17/2022 [facility] DATE CREATED AUTHOR AUTHOR'S ORGANIZ ATION 03/04/2023 [facility] DATE CREATED AUTHOR AUTHOR'S ORGANIZ ATION 07/06/2023 Kellie cardoso DATE CREATED AUTHOR AUTHOR'S ORGANIZ ATION 02/29/2024 [facility] FOR RECORDS PERTAINING TO PATIENTS [...] BE BASED ON THE PRIMARY CLINICAL RECORDS. [employer] provides no warranty or guarantee of the accuracy or completeness of information in this document.
--- NOTE | 2024-03-01 10:28 | ED.GENADUL1 ---
HPI HPI - General Adult General Chief complaint: Dizziness Stated complaint: VERTIGO Time Seen by Provider: 03/01/24 09:02 Mode of arrival: walk-in History of Present Illness HPI narrative: Patient is a 44yo male who is presenting to the ER today with chief complaint intractable vertigo. Patient has had 3 ER visits this week. Patient was here on Monday, evaluated and thought that gabapentin might be the reason why he had vertigo. Patient was told to stop gabapentin and was discharged. Patient went to [facility] on Monday. After reviewing patient's chart, patient had CT of the head that showed no acute findings, lab testing that was done, and was discharged. Patient was was prescribed Antivert, patient stated he does not have enough money to advise Antivert. Patient also says he does not have a mouth wanting to go see his PCP, he has to pay before he can see the PCP and that is glover come to the ER for the last few visits. I told the patient he can come to the ER at any time, and we discussed the financial cost of going to the ER 3 times in a week versus his family doctor, but again told him and his girlfriend at bedside that we would be happy to see him at any time in the ER, we do not refuse anybody. Patient is keeping his eyes closed, patient states with subtle movements of his head will cause vertigo and sometimes nausea. Patient vomited once last night. Patient has no headache or neck pain. She has no chest pain or shortness of breath. Patient is noncompliant with taking his medications. Patient patient has no loss of vision, blurry vision, or double vision. Patient has no chest pain or shortness of breath. No nausea at this time, but when patient does turn her head they will elicit nausea. Patient has no bowel or bladder changes. No other acute complaints at this time. Patient's vertigo has not improved, patient has not picked up his Antivert she has no money resources to pick it up at the pharmacy, and patient tells me that he is not compliant at his schedule and does not have a good schedule taking his daily medications for his other comorbidities. All systems are negative except as noted/marked. All systems reviewed and otherwise negative. Nurses note and vital signs reviewed and patient is not hypoxic. General: The patient appears well and in no apparent distress. Patient is resting comfortably on cart. Patient is not toxic, lethargic, or listless Skin: Warm, dry, no pallor noted. There is no rash noted. No petechiae, purpura. Head: Normocephalic, atraumatic Eye: Normal conjunctiva, no drainage, EOMI. PERRL Ears, Nose, Mouth, and Throat: oral mucosa is moist. Patient has no vertical, lateral, rotary nystagmus. Bilateral TM shows erythema, perforation or bulging. No carotid bruits bilateral. Nares patent. Mouth without vesicles. Cardiovascular: Regular Rate and Rhythm, no murmur, gallop, rub Respiratory: Patient is in no distress, no accessory muscle use, lungs are clear to auscultation, no wheezing, rales or rhonchi Back: non-tender, no CVA tenderness bilaterally to percussion. No CT LS midline pain GI: Obese, no tenderness to palpation, no masses appreciated. No rebound, guarding, or rigidity noted. No distention Musculoskeletal: Patient has full range of motion of all of the extremities, no motor, sensory, or focal neurological deficits Neurological: A&O x4, normal speech Psychiatric: Cooperative Related Data Previous Rx's ?Medication ?Instructions ?Recorded amlodipine 10 mg tablet 10 mg PO DAILY #30 tabs 09/06/22 aspirin 81 mg chewable tablet 81 mg PO DAILY #30 tabs 09/06/22 atorvastatin 40 mg tablet (Lipitor) 40 mg PO DAILY #30 tabs 09/06/22 metoprolol tartrate 50 mg tablet 25 mg (1/2 x 50 mg) PO BID #30 tabs 09/06/22 (Lopressor) meclizine 25 mg tablet 25 mg PO TID PRN dizziness #7 tabs 02/26/24 diazepam 2 mg tablet (Valium) 1 mg (1/2 x 2 mg) PO BID PRN 03/01/24 Nausea and vomiting, vertigo #4 tabs prochlorperazine maleate 10 mg 10 mg PO Q12H PRN nausea and 03/01/24 tablet (Compazine) vomiting, headache 7 days #7 tabs Allergies Allergy/AdvReac Type Severity Reaction Status Date / Time amoxicillin Allergy Vomiting Verified 02/26/24 07:57 prednisone Allergy Shakiness Verified 02/26/24 07:57 narcotic AdvReac Severe Vomiting Uncoded 02/26/24 07:57 Opioid HPI Opioid Management Most Recent Opioid Data: Last Pain Scale 6 02/12/24 22:55 02/12/24 PFSH PFS Medical History (Updated 03/01/24 @ 16:08 by Tejinder Cabrera MD) Syncope and collapse ?R55 - Syncope and collapse (ICD-10) Tobacco abuse ?Z72.0 - Tobacco use (ICD-10) Dyslipidemia ?E78.5 - Hyperlipidemia, unspecified (ICD-10) HTN (hypertension) ?I10 - Essential (primary) hypertension (ICD-10) Social History (Updated 09/05/22 @ 12:28 by STEVEN FLORES) Smoking status: Former smoker Non-prescribed substance use: former substance user Non-prescribed substance use details: cocaine Little interest or pleasure in doing things: not at all Feeling down, depressed, or hopeless: not at all Exam Constitutional Vital Signs, click to edit/add: Last Vital Signs Temp 98.6 F 03/01/24 08:43 Pulse 62 03/01/24 14:32 Resp 18 03/01/24 14:32 BP 160/86 H 03/01/24 14:32 Pulse Ox 98 03/01/24 14:32 O2 Del Method Room Air 03/01/24 08:43 Course Vital Signs Vital signs: Vital Signs Temperature 98.6 F 03/01/24 08:43 Pulse Rate 88 03/01/24 08:43 Respiratory Rate 18 03/01/24 08:43 Blood Pressure 150/86 H 03/01/24 08:43 Pulse Oximetry 95 03/01/24 08:43 Oxygen Delivery Method Room Air 03/01/24 08:43 Temperature 98.6 F 03/01/24 08:43 Pulse Rate 62 03/01/24 14:32 Respiratory Rate 18 03/01/24 14:32 Blood Pressure 160/86 H 03/01/24 14:32 Pulse Oximetry 98 03/01/24 14:32 Oxygen Delivery Method Room Air 03/01/24 08:43 Medical Decision Making MDM Narrative Medical decision making narrative: 1015 I was able to speak to MRI staff, we are able to perform an MRI of the brain at this time. Patient was given Antivert, also IV Valium. Patient had repeat EKG, troponin, and was able to have MRI of the brain. Patient MRI was negative. A copy the report was given to the patient. Patient felt much better after medication was given. Patient is able to walk and ambulate to the [place] with no significant difficulty or concerns. Patient's vertigo is almost completely dissipated. Patient submitted discharge she developed a headache and that was gone as well. Patient's headache was not the worse headache of her life, not sudden onset, not thunderclap in nature. Patient was educated that he must flower picker the Antivert at the pharmacy if needed and if vertigo should come back again to use Antivert. Patient is to use Valium as a backup. Patient also was shown some vestibular training at bedside. Patient girlfriend is not vestibular training as well. Patient had education information written on such vertigo and vestibular training on his discharge papers as well. Patient was also referred to ENT. Patient says he cannot follow-up with his PCP because he has no money. Patient has been in the ER 3 times this week. No acute indication for admission at this time, patient agrees does not want to be admitted to the hospital, he feels better wants to go home. Lab Data Labs: Lab Results 03/01/24 Range/Units 10:31 WBC 10.1 (4.0-11.0) 10^3/uL RBC 5.38 (4.70-6.10) 10^6/uL Hgb 16.5 (14.0-18.0) g/dL Hct 48.3 (42.0-54.0) % MCV 89.8 (80.0-94.0) fL MCH 30.7 (25.9-34.0) pg MCHC 34.2 (29.9-35.2) g/dL RDW 12.3 (11.0-15.0) % Plt Count 233 (150-450) 10^3/uL MPV 10.4 (9.5-13.5) fL Neut % (Auto) 68.5 (43.0-75.0) % Lymph % (Auto) 19.1 L (20.5-60.0) % Donley % (Auto) 8.6 (1.7-12.0) % Eos % (Auto) 2.3 (0.9-7.0) % Baso % (Auto) 0.8 (0.2-2.0) % Neut # (Auto) 6.9 H (1.4-6.5) 10^3/uL Lymph # (Auto) 1.9 (1.2-3.8) 10^3/uL Donley # (Auto) 0.9 H (0.3-0.8) 10^3/uL Eos # (Auto) 0.2 (0.0-0.7) 10^3/uL Baso # (Auto) 0.1 (0.0-0.1) 10^3/uL Abs Immat Gran (auto) 0.07 H (0.00-0.03) 10^3/uL Imm/Tot Granulo (auto) 0.7 H (0.0-0.5) % Sodium 141 (136-145) mmol/L Potassium 4.4 (3.5-5.1) mmol/L Chloride 103 (98-107) mmol/L Carbon Dioxide 27.8 (21.0-32.0) mmol/L Anion Gap 14.6 BUN 15.0 (7.0-18.0) mg/dL Creatinine 1.07 (0.70-1.30) mg/dL Est GFR ( Amer) >60 (>=60 mL/min/1.73m^2) Est GFR (Non-Af Amer) >60 (>=60 mL/min/1.73m^2) BUN/Creatinine Ratio 14.0 Glucose 110 H (74-106) mg/dL Calcium 9.3 (8.5-10.1) mg/dL Total Bilirubin 0.9 (0.2-1.0) mg/dL AST 20 (15-37) U/L ALT 39 (16-63) U/L Alkaline Phosphatase 93 (46-116) U/L Troponin I High Sens 10.0 (4.0-76.1) pg/mL Total Protein 7.8 (6.4-8.2) g/dL Albumin 3.9 (3.4-5.0) g/dL Globulin 3.9 g/dL Albumin/Globulin Ratio 1.0 Discharge Plan Discharge Chief Complaint: Dizziness Clinical Impression: Vertigo Patient Disposition: Home, Self-Care Time of Disposition Decision: 16:11 Condition: Fair Prescriptions / Home Meds: New prochlorperazine maleate [Compazine] 10 mg tablet 10 mg PO Q12H PRN (Reason: nausea and vomiting, headache) 7 Days Qty: 7 0RF diazepam [Valium] 2 mg tablet 1 mg PO BID PRN (Reason: Nausea and vomiting, vertigo) Qty: 4 0RF No Action aspirin 81 mg tablet,chewable 81 mg PO DAILY Qty: 30 0RF amlodipine 10 mg tablet 10 mg PO DAILY Qty: 30 0RF metoprolol tartrate [Lopressor] 50 mg tablet 25 mg PO BID Qty: 30 0RF atorvastatin [Lipitor] 40 mg tablet 40 mg PO DAILY Qty: 30 0RF meclizine 25 mg tablet 25 mg PO TID PRN (Reason: dizziness) Qty: 7 0RF Print Language: French Instructions: Vertigo (ED), Lightheadedness (ED), Dizziness (ED) Additional Instructions: group leader [employer] processing your prescription for Antivert at the pharmacy. Use that first if vertigo returns again. Use Valium as a backup to Antivert if needed for intractable vertigo, or nausea vomiting if needed. We had discussed vestibular exercises in the room for physical therapy that could be done at home to help with vertigo. Call your PCP to schedule outpatient physical therapy if needed. ENT has been referred to as well. Referrals: Sveta Reyes MD [Physician] - 1 week ELIAS DUKES [Primary Care Provider] - 1 week Discharge Date/Time: 03/01/24 16:27
--- NOTE | 2024-03-01 10:39 | MR_ITS ---
The [address] [address] Patient Name: LAWSON LOPEZ MRN: [id number] date: 1980 Sex: M Assigned Patient Location: ER Current Patient Location: ER Accession/Order Number: [id number] Exam Date: 03/01/2024 11:50 Report Date: 03/01/2024 11:59 At the request of: NISHA SMITH Procedure: MR head/brain wo con MR head/brain wo con, 03/01/2024 11:50 AM EST INDICATION: Intractable vertigo, rule out vertebrobasilar stroke COMPARISON: CT of the head of the same date. TECHNIQUE: Multiplanar, multisequential MRI images of brain were obtained without injection of contrast. FINDINGS: The cerebral sulci as well as ventricular system are appropriate for age. There is no restricted diffusion. Hyperintensities on T2 and FLAIR images in the daniels radiata and centrum semiovale with sparing of U fibers are nonspecific, statistically most likely consistent with mild microvascular ischemic changes. There is no intracranial mass, mass effect, midline shift, intra or extra-axial fluid collection or large hemorrhage. Normal flow-void in the intracranial vessels is noted. The visualized portions of orbits, mastoid air cells as well as paranasal sinuses are unremarkable. MR/MR head/brain wo con IMPRESSION: No acute intracranial process is noted. Electronically authenticated by: DREW PORTER Date: 03/01/2024 11:59
[2024-03-01 10:48] LABS: Basophils Absolute Auto 0.1 10^3/uL (0.0-0.1); Basophils Percent Auto 0.8 % (0.2-2.0); Eosinophils Absolute Auto 0.2 10^3/uL (0.0-0.7); Eosinophils Percent Auto 2.3 % (0.9-7.0); Hematocrit 48.3 % (42.0-54.0); Hemoglobin 16.5 g/dL (14.0-18.0); Immature Granulocytes Abs Auto 0.07 10^3/uL (0.00-0.03); Immature Granulocytes Pct Auto 0.7 % (0.0-0.5); Lymphocytes Absolute Auto 1.9 10^3/uL (1.2-3.8); Lymphocytes Percent Auto 19.1 % (20.5-60.0); Mean Corpuscular HGB Conc 34.2 g/dL (29.9-35.2); Mean Corpuscular Hemoglobin 30.7 pg (25.9-34.0); Mean Corpuscular Volume 89.8 fL (80.0-94.0); Mean Platelet Volume 10.4 fL (9.5-13.5); Monocytes Absolute Auto 0.9 10^3/uL (0.3-0.8); Monocytes Percent Auto 8.6 % (1.7-12.0); Neutrophils Absolute Auto 6.9 10^3/uL (1.4-6.5); Neutrophils Percent Auto 68.5 % (43.0-75.0); Platelet Count 233 10^3/uL (150-450); Red Blood Count 5.38 10^6/uL (4.70-6.10); Red Cell Distribution Width 12.3 % (11.0-15.0); White Blood Count 10.1 10^3/uL (4.0-11.0)
[2024-03-01] MEDS: DIAZEPAM 10 MG/2 ML SYRINGE 2 MG IV (10:49)
[2024-03-01] MEDS: MECLIZINE HCL 12.5 MG TABLET 25 MG PO (10:49)
[2024-03-01 11:05] LABS: Alanine Aminotransferase 39 U/L (16-63); Albumin Level 3.9 g/dL (3.4-5.0); Alkaline Phosphatase 93 U/L (46-116); Anion Gap 14.6; Aspartate Amino Transferase 20 U/L (15-37); Bilirubin Total 0.9 mg/dL (0.2-1.0); Calcium 9.3 mg/dL (8.5-10.1); Carbon Dioxide 27.8 mmol/L (21.0-32.0); Chloride 103 mmol/L (98-107); Estimated GFR (African America >60 (>=60 mL/min/1.73m^2); Estimated GFR (Non-African Ame >60 (>=60 mL/min/1.73m^2); Globulin 3.9 g/dL; Glucose 110 mg/dL (74-106); Potassium 4.4 mmol/L (3.5-5.1); Sodium 141 mmol/L (136-145); Total Protein 7.8 g/dL (6.4-8.2)
[2024-03-01 11:26] VITALS: BP 170/90; PULSE 82; O2SAT 95
[2024-03-01 14:32] VITALS: BP 160/86; PULSE 62; O2SAT 98
== END 2024-03-01 16:27 | disposition home or self-care (01) ==
PROVIDERS: Emergency Provider Emergency Medicine; PCP Nurse Practitioner
DX: R42 Dizziness and giddiness (principal); Z87.891 Personal history of nicotine dependence; R51.9 Headache, unspecified
CPT/HCPCS: 36415; 70551; 80053; 84484; 85025; 96374; 99285; J3360

== ENCOUNTER 2024-03-14 15:05 | Emergency (ER) | payer OTHER, SELFPAY ==
[2024-03-14 15:32] VITALS: BP 160/101; PULSE 104; TEMP 37.1; O2SAT 97; BMI 44.1
--- OUTSIDE RECORDS SUMMARY | 2024-03-14 15:41 | XMS_ITS | CCD ---
Author Organization [facility] Care Team Providers Care Resaw Feeder Name Role Phone Unavailable Primary Care Provider Unavailabl e Carina Hernandez Primary Care Provider [phone] Unavailable Primary Care Provider Unavailabl e NO FAMILY, PHYSICIAN Primary Care Provider Unava ARSALAN Kamara Emergency Provider [phone] Alfie [facility] Jenelle E Emergency Provider [phone] MEENAKSHI Schmidt Emergency Provider NO FAMILY, PHYSICIAN Primary Care Provider Unava ARSALAN Kamara Emergency Provider Alfie [facility] Jenelle Emergency Provider MEENAKSHI Schmidt Emergency Provider [phone] REQUEST, NONE LISTED Primary Care Unavaila ble KIM, KATE Admitting Unavailable KIM, KATE Attending Unavailable ELADIA ALVAREZYL Consulting Unavailable AMAN PURCELL Consulting Unavailable NATHAN, NONE LISTED Primary Care Unavaila ble JESUS ., JOSEFINA Admitting Unavailable JESUS ., JOSEFINA Attending Unavailable LIDIA .JOHANNY Consulting Unavailabl e [place], James Consulting Unavailable NO FAMILY, PHYSICIAN Primary Care Provider Unava DO Kris Meek Emergency Provider MARIEL Rodas Primary Care Provider MD Socorro Osullivan Emergency Provider ELTAHAWY, EHAB Attending Unavailable [place], EHAB Admitting Unavailable [place], EHAB Attending Unavailable [place], EHAB Referring Unavailable Isabel Vázquez Primary Care Provid er Med Koenig Admitting Unavailable Isabel Rodas Primary Care Unavailable Med Koenig Attending Unavailable Jenelle Judge Attending Unavailable Jenelle Judge Admitting Unavailable Isabel Rodas Primary Care Unavailable Allergies Allergy Classification Reported Allergen(s) Allergy Type Date of Onset Reaction(s) Facility (11 sources) Amoxicillin; Translations: [AMOXICILLIN] Drug Allergy 6 Unknown Reaction [place], [place] (6 sources) fentaNYL; Translations: [FENTANYL] Drug Allergy 9 [place], [place] (11 sources) predniSONE; Translations: [PREDNISONE] Drug Allergy 6 Other (See Comments) [place], [place] (1 source) Amoxicillin Drug Allergy 3 [facility] Repository (1 source) predniSONE Drug Allergy 3 [facility] (1 source) amLODIPine; Translations: [AMLODIPINE] Drug Allergy 3 [facility] Repository (1 source) Amoxicillin Drug Allergy 4 [facility] Repository (1 source) predniSONE Drug Allergy 4 [facility] Repository Medications Current Medications Medication Drug [...] specified as acute or chronic] 12-02-2021 Episodic Conditions associated with dizziness or vertigo (1 source) Dizziness and giddiness; Translations: [Dizziness and giddiness] Onset: 02-27-2024 Episodic Congestive heart failure; nonhypertensive (2 sources) [...] gap [Moles/Vol] 12.9 mmol/L Normal 6.0-15.0 [facility] Comment on above: Performed By: #### C BC, BMP, PTT, PT, HS TROP #### [facility] [address] Calcium [Mass/Vol] 9.2 mg/dL Normal 8.6-10.3 [facility] Comment on above: Performed By: #### C BC, BMP, PTT, PT, HS TROP #### [facility] [address] Chloride [Moles/Vol] 103 mmol/L Normal 98-107 [facility] Comment on above: Performed By: #### C BC, BMP, PTT, PT, HS TROP #### [address] CO2 [Moles/Vol] 26.4 mmol/L Normal 21.0-31.0 The [facility] Comment on above: Performed By: #### C BC, BMP, PTT, PT, HS TROP #### [facility] [address] [place] [address] [place] Creatinine [Mass/Vol] 0.89 mg/dL Normal 0.70-1.30 [facility] Comment on above: Performed By: #### C BC, BMP, PTT, PT, HS TROP #### [place] [address] [place] Creatinine Clr Calc Pharmacy 140.18 Normal [facility] Comment on above: Result Comment: PERF ORMED BY: [place] [address] PATHOLOGIST [employer] SERVICE EMPLOYEE FRANK ARAUJO M.D. Performed By: #### C BC, BMP, PTT, PT, HS TROP #### [place] [address] [place] GFR/1.73 sq M.predicted MDRD (S/P/Bld) [Vol rate/Area] mL/min/{1.73_m2} Normal [facility] Comment on above: Performed By: #### C BC, BMP, PTT, PT, HS TROP #### [facility] [address] [place] [address] [place] Glucose [Mass/Vol] 108 mg/dL High 70-100 [facility] Comment on above: Result Comment: [facility] Glucose Reference Range is dependent on time and content of last meal. Glucose of more than 200 mg/dL in a nonstressed, ambulatory subject supports the diagnosis of Diabetes Mellitus. ADA recommended reference range Performed By: #### C BC, BMP, PTT, PT, HS TROP #### [facility] [address] [place] [id number] [facility] Potassium [Moles/Vol] 4.3 mmol/L Normal 3.5-5.1 [facility] Comment on above: Performed By: #### C BC, BMP, PTT, PT, HS TROP #### [facility] [address] [place] [address] [place] Sodium [Moles/Vol] 138 mmol/L Normal 136-145 [facility] Comment on above: Performed By: #### C BC, BMP, PTT, PT, HS TROP #### [facility] [address] [place] [address] [place] Urea nitrogen [Mass/Vol] 10 mg/dL Normal 7-25 [facility] Comment on above: Performed By: #### C BC, BMP, PTT, PT, HS TROP #### [facility] [address] angio neckon 02-27-2024 CT angio neck [facility] Main [place] [address] [place] [address] CT Scan Report Signed Patient: Henrik Cavanaugh MR#: [id number] 168 : 1980 Acct:[id number] Age/Sex: 44 / M ADM Date: 02/27/24 Loc: ER Room: Type: [facility] ER Attending Dr: Copies to: Med Koenig DO Ordering Provider: Med Koenig DO Date of Service: 02/27/24 CT/CT head/brain wo con: r/o post circ stroke ([id number]) CT/CT angio neck: r/o post circ stroke ([id number]) CT/CT angio head: r/o post circ stroke [...] patent Posterior cerebral arteries: patent. 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 Intracranial segments of the internal carotid arteries: Mild calcification without critical stenosis or occlusion. MCA: patent SKYLAR: patent Anterior Communicating artery: patent Posterior Communicating [...] Anguiano Jr., D.O.02/27/2024 9:42 AM Dictation Location: [place] [address] Transcribed By: [facility] 02/27/24 0942 Dictated By: Wayne Anguiano Jr, DO 02/27/24 0938 Signed By: 02/27/24941 Normal [facility] Complete Blood Count Auto Di ffon 02-27-2024 Basophils (Bld) [#/Vol] 0.1 10*3/uL Normal 0.0-0.2 [facility] Comment on above: Result Comment: PERF ORMED BY: [place] [address] PATHOLOGIST [employer]ICE EMPLOYEE FRANK ARAUJO M.D. Performed By: #### C BC, BMP, PTT, PT, HS TROP #### [address] Basophils/100 WBC (Bld) 1.1 % Normal . [facility] Comment on above: Performed By: #### C BC, BMP, PTT, PT, HS TROP #### [address] Eosinophils (Bld) [#/Vol] 0.2 10*3/uL Normal 0.0-0.45 [facility] Comment on above: Performed By: #### C BC, BMP, PTT, PT, HS TROP #### [address] Eosinophils/100 WBC (Bld) 2.7 % Normal . [facility] Comment on above: Performed By: #### C BC, BMP, PTT, PT, HS TROP #### [address] Erythrocyte distribution width (RBC) [Ratio] 12.9 % Normal 12.0-14.8 [facility] Comment on above: Performed By: #### C BC, BMP, PTT, PT, HS TROP #### [address] Hematocrit (Bld) [Volume fraction] 46.1 % Normal 38.8-50.0 [facility] Comment on above: Performed By: #### C BC, BMP, PTT, PT, HS TROP #### [address] Hemoglobin (Bld) [Mass/Vol] 16.0 g/dL Normal 13.0-17.0 [facility] Comment on above: Performed By: #### C BC, BMP, PTT, PT, HS TROP #### [address] Lymphocytes (Bld) [#/Vol] 1.9 10*3/uL Normal 1.00-4.8 [facility] Comment on above: Performed By: #### C BC, BMP, PTT, PT, HS TROP #### [address] Lymphocytes/100 WBC (Bld) 22.3 % Normal . [facility] Comment on above: Performed By: #### C BC, BMP, PTT, PT, HS TROP #### [address] MCH (RBC) [Entitic mass] 30.7 pg Normal 27.5-35.2 [facility] Comment on above: Performed By: #### C BC, BMP, PTT, PT, HS TROP #### [address] MCV (RBC) [Entitic vol] 88.3 fL Normal 83.5-101 [facility] Comment on above: Performed By: #### C BC, BMP, PTT, PT, HS TROP #### [address] Mean Corpuscular HGB Conc 34.8 g/dL Normal 32.5-35.6 [facility] Comment on above: Performed By: #### C BC, BMP, PTT, PT, HS TROP #### [address] Monocytes (Bld) [#/Vol] 0.7 10*3/uL Normal 0.0-0.8 [facility] Comment on above: Performed By: #### C BC, BMP, PTT, PT, HS TROP #### [place] [address] [place] Monocytes/100 WBC (Bld) 19.04 % Normal 0.00-20.00 [facility] Comment on above: Performed By: #### C BC, BMP, PTT, PT, HS TROP #### [address] Monocytes/100 WBC (Bld) 8.7 % Normal . [facility] Comment on above: Performed By: #### C BC, BMP, PTT, PT, HS TROP #### [place] [address] [place] Neutrophils (Bld) [#/Vol] 5.5 10*3/uL Normal 1.8-7.7 [facility] Comment on above: Performed By: #### C BC, BMP, PTT, PT, HS TROP #### [place] [address] [place] Neutrophils/100 WBC (Bld) 65.2 % Normal . [facility] Comment on above: Performed By: #### C BC, BMP, PTT, PT, HS TROP #### [place] [address] [place] NRBC% 0.2 /100{WBC} Normal 0-0.5 [facility] Comment on above: Performed By: #### C BC, BMP, PTT, PT, HS TROP #### [place] [address] [place] Platelet mean volume (Bld) [Entitic vol] 8.8 fL Normal 6.6-10.1 [facility] Comment on above: Performed By: #### C BC, BMP, PTT, PT, HS TROP #### [place] [address] [place] Platelets (Bld) [#/Vol] 230 10*3/uL Normal 150-450 [facility] Comment on above: Performed By: #### C BC, BMP, PTT, PT, HS TROP #### [place] [address] [place] RBC (Bld) [#/Vol] 5.22 10*6/uL Normal 3.90-5.[address] [facility] Comment on above: Performed By: #### C BC, BMP, PTT, PT, HS TROP #### [place] [address] [place] WBC (Bld) [#/Vol] 8.5 10*3/uL Normal 4.1-10.5 [facility] Comment on above: Performed By: #### C BC, BMP, PTT, PT, HS TROP #### [place] [id number] [facility] ECG 12 lead ECGon 02-27-2024 ECG 12 lead ECG [facility] Main [place] [address] [place] [address] Electrocardiograph Report Signed Patient: Henrik Cavanaugh MR#: [id number] 168 : 1980 Acct:[id number] Age/Sex: 44 / M ADM Date: 02/27/24 Loc: ER Room: Type: [facility] ER Attending Dr: Ordering Provider: Med Koenig [...] fascicular block Confirmed by Med Koenig DO ([id number]) on 02/27/2024 3:20:31 PM Referred By: Electronically Signed By: Med Koenig DO Transcribed By: MUS Signed By Med Koenig DO 1520 Normal [facility] Partial Thromboplastin Timeo n 02-27-2024 aPTT Coag (Bld) [Time] 29.9 s Normal 25.1-36.5 [facility] Comment on above: Result Comment: A he matocrit value greater than 55% may lead to inaccurate results in coagulation testing. Patients having hematocrit values >55% require a special collection tube for coagulation studies. Please contact the laboratory at [phone] for redraw instructions. PERFORMED BY: [place] [address] PATHOLOGIST [employer] SERVICE EMPLOYEE FRANK ARAUJO M.D. Performed By: #### C BC, BMP, PTT, PT, HS TROP #### [address] [place] [address] [facility] Prothrombin Time INRon 02-26 INR Coag (PPP) [Relative time] 0.9 {INR} Normal [facility] Comment on above: Result Comment: [...] BC, BMP, PTT, PT, HS TROP #### [address] PT Coag (PPP) [Time] 10.8 s Normal 9.0-12.9 [facility] Comment on above: Result Comment: A he matocrit value greater than 55% may lead to inaccurate results in coagulation testing. Patients having hematocrit values >55% require a special collection tube for coagulation studies. Please contact the laboratory at [phone] for redraw instructions. Performed By: #### C BC, BMP, PTT, PT, HS TROP #### [place] [id number] [facility] Troponin I High Sensitivityo n 02-27-2024 Troponin I High Sensitivity 12.7 pg/mL Normal 0.0-20.0 [facility] Comment on above: Result Comment: PERF ORMED BY: [place] [address] PATHOLOGIST [employer]ICE EMPLOYEE FRANK ARAUJO M.D. Performed By: #### C BC, BMP, PTT, PT, HS TROP #### [place] [id number] [facility] Urinalysison 02-27-2024 Appearance (U) Clear Normal Clear [facility] Comment on above: Order Comment: Name Collection Type:: Clean-Voided Midstream Performed By: #### U A #### [address] Bilirubin,Urine Negative Normal Negative [facility] Comment on above: Order Comment: Name Collection Type:: Clean-Voided Midstream Performed By: #### U A #### [place] [address] [place] Color (U) Light-Yellow Normal Yellow [facility] Comment on above: Order Comment: Name Collection Type:: Clean-Voided Midstream Performed By: #### U A #### [place] [address] [place] Glucose Ql (U) Normal Normal Normal [facility] Comment on above: Order Comment: Name Collection Type:: Clean-Voided Midstream Performed By: #### U A #### [address] Ketones Ql (U) Negative Normal Negative [facility] Comment on above: Order Comment: Name Collection Type:: Clean-Voided Midstream Performed By: #### U A #### [address] Leukocyte esterase Test strip Ql (U) Negative Normal Negative [facility] Comment on above: Order Comment: Name Collection Type:: Clean-Voided Midstream Performed By: #### U A #### [place] [address] [place] Nitrite,Urine Negative Normal Negative [facility] Comment on above: Order Comment: Name Collection Type:: Clean-Voided Midstream Performed By: #### U A #### [place] [address] [place] Occult Blood,Urine Negative Normal Negative [facility] Comment on above: Order Comment: Name Collection Type:: Clean-Voided Midstream Result Comment: PERF ORMED BY: [place] [address] PATHOLOGIST [employer]ICE EMPLOYEE FRANK ARAUJO M.D. Performed By: #### U A #### [place] [address] [place] pH (U) 5.5 [pH] Normal 5.0-9.0 [facility] Comment on above: Order Comment: Name Collection Type:: Clean-Voided Midstream Performed By: #### U A #### [facility] [address] Protein,Urine Negative Normal Negative [facility] Comment on above: Order Comment: Name Collection Type:: Clean-Voided Midstream Performed By: #### U A #### [address] Specificy [place],Urine 1.033 High 1.001-1.030 [facility] Comment on above: Order Comment: Name Collection Type:: Clean-Voided Midstream Performed By: #### U A #### [address] Urobilinogen,Urine Normal Normal Normal [facility] Comment on above: Order Comment: Name Collection Type:: Clean-Voided Midstream Performed By: #### U A #### [address] XR chest 1V portableon 02-26 XR chest 1V portable [facility] Main [place] [address] [place] [address] XRay Report Signed Patient: Henrik Cavanaugh MR#: [id number] 168 : 1980 Acct:[id number] Age/Sex: 44 / M ADM Date: 02/27/24 [...] FINDINGS Impression dictated by: Wayne Anguiano Jr., D.O.02/27/2024 8:28 AM Dictation Location: [place] [address] Transcribed By: [facility] 02/27/24827 Dictated By: Wayne Anguiano Jr, DO 02/27/2428 Signed By: 02/27/2428 Normal [facility] XR foot RT min 3V*on 024 XR foot RT min 3V* [facility] Main [address] [address] XRay Report Signed Patient: Henrik Cavanaugh MR#: [id number] 168 : 1980 Acct:[id number] Age/Sex: 44 / M ADM Date: 02/15/24 Loc: ER Room: Type: [facility] ER Attending Dr: Copies to: [...] Tejinder Alcantara M.D.02/15/2024 12:47 PM Dictation Location: [place] [address] Transcribed By: [facility] 02/15/24 124 Dictated By: Tejinder Alacntara DO 02/15/24 124 Signed By: 02/15/24 1247 Normal [facility] CBC with Diffon 07-04-2023 Abs. Basophil 0.06 k/uL Normal 0.00-0.20 [facility] Comment on above: Performed By: #### C RAMÓN MELTON, CP #### [facility] [address] [place] [address] Toolroom Machinist: Alex Amador MD Abs.Imm.Granulocyte 0.03 k/uL Normal 0.00-0.30 [facility] Comment on above: Performed By: #### C LINH LIP, CP #### [facility] [address] [place] [address] Toolroom Machinist: Alex Amador MD Abs.Neutrophil (Seg) 7.00 k/uL Normal 1.50-8.10 [facility] Comment on above: Performed By: #### C LINH LIP, CP #### [address] [place] [address] Toolroom Machinist: Alex Amador MD Basophils/100 WBC (Bld) 1 % Normal 0-2 [facility] Comment on above: Performed By: #### C LINH LIP, CP #### [address] [place] [address] Toolroom Machinist: Alex Amador MD Eosinophils (Bld) [#/Vol] 0.17 10*3/uL Normal 0.00-0.44 [facility] Comment on above: Performed By: #### C LINH LIP, CP #### [address] [place] [address] Toolroom Machinist: Alex Amador MD Eosinophils/100 WBC (Bld) 2 % Normal 1-4 [facility] Comment on above: Performed By: #### C RAMÓN MELTON, CP #### [address] [place], [place] [address] Toolroom Machinist: Alex Amador MD Erythrocyte distribution width (RBC) [Ratio] 12.4 % Normal 11.8-14.4 [facility] Comment on above: Performed By: #### C LINH LIP, CP #### [address] [place], [facility] Toolroom Machinist: Alex Amador MD Hematocrit (Bld) [Volume fraction] 44.6 % Normal 40.7-50.3 [facility] Comment on above: Performed By: #### C DP LIP, CP #### [address] [place], [facility]83 Toolroom Machinist: Alex Amador MD Hemoglobin (Bld) [Mass/Vol] 15.5 g/dL Normal 13.0-17.0 [facility] Comment on above: Performed By: #### C DP LIP, CP #### [address] [place], [facility] Toolroom Machinist: Alex Amador MD Immature granulocytes/100 WBC (Bld) 0 % Normal 0 [facility] Comment on above: Performed By: #### C DP, LIP, CP #### [address] [place], [place] [address] Toolroom Machinist: Alex Amador MD Lymphocytes (Bld) [#/Vol] 1.59 10*3/uL Normal 1.10-3.70 [facility] Comment on above: Performed By: #### C DP LIP, CP #### [address] [place] [id number] Toolroom Machinist: Alex Amador MD Lymphocytes/100 WBC (Bld) 17 % Low 24-43 [facility] Comment on above: Performed By: #### C LINH LIP, CP #### [address] [place], [place] [address] Toolroom Machinist: Alex Amador MD MCH (RBC) [Entitic mass] 30.3 pg Normal 25.2-33.5 [facility] Comment on above: Performed By: #### C LINH LIP, CP #### [address] [place], [facility]83 Toolroom Machinist: Alex Amador MD MCHC (RBC) [Mass/Vol] 34.8 g/dL Normal 28.4-34.8 [facility] Comment on above: Performed By: #### C DP LIP, CP #### [address] [place] [address] Toolroom Machinist: Alex Amador MD MCV (RBC) [Entitic vol] 87.1 fL Normal 82.6-102.9 [facility] Comment on above: Performed By: #### C DP, LIP, CP #### [facility] [address] [place], [place] [address] Toolroom Machinist: Alex Amador MD Monocytes (Bld) [#/Vol] 0.78 10*3/uL Normal 0.10-1.20 [facility] Comment on above: Performed By: #### C DP, LIP, CP #### [facility] [address] [place], [place] [address] Toolroom Machinist: Alex Amador MD Monocytes/100 WBC (Bld) 8 % Normal 3-12 [facility] Comment on above: Performed By: #### C DP LIP, CP #### [address] [place], [place] [address] Toolroom Machinist: Alex Amador MD Neutrophil (Seg) 72 % High 36-65 [facility] Comment on above: Performed By: #### C DP, LIP, CP #### [address] [place], [place] [address] Toolroom Machinist: Alex Amador MD NRBC Automated 0.0 per 100 WBC Normal 0.0 [facility] Comment on above: Performed By: #### C DP LIP, CP #### [address] [place], [place] [address] Toolroom Machinist: Alex Amador MD Platelet mean volume (Bld) [Entitic vol] 10.4 fL Normal 8.1-13.5 [facility] Comment on above: Performed By: #### C DP LIP, CP #### [address] [place], [facility]83 Toolroom Machinist: Alex Amador MD Platelets (Bld) [#/Vol] 239 10*3/uL Normal 138-453 [facility] Comment on above: Performed By: #### C DP, LIP, CP #### [facility] [address] [place] [address] Toolroom Machinist: Alex Amador MD RBC (Bld) [#/Vol] 5.12 10*6/uL Normal 4.21-5.77 [facility] Comment on above: Performed By: #### C DP, LIP, CP #### [facility] [address] [place], [place] [id number] Toolroom Machinist: Alex Amador MD WBC (Bld) [#/Vol] 9.6 10*3/uL Normal 3.5-11.3 [facility] Comment on above: Performed By: #### C DP, LIP, CP #### [facility] [address] [place], [place] [id number] Toolroom Machinist: Alex Amador MD Comp Metabolic Profon 2023 Albumin [Mass/Vol] 4.4 g/dL Normal 3.5-5.2 [facility] Comment on above: Performed By: #### C DP, LIP, CP #### [address] [place] [address] Toolroom Machinist: Alex Amador MD Albumin/Glob Ratio 1.2 Normal 1.0-2.5 [facility] Comment on above: Performed By: #### C DP, LIP, CP #### [address] [place], [facility] ( Toolroom Machinist: Alex Amador MD Alkaline Phos 103 U/L Normal 40-129 [facility] Comment on above: Performed By: #### C DP, LIP, CP #### [facility] [address] [place], [place] [id number] Toolroom Machinist: Alex Amaodr MD ALT [Catalytic activity/Vol] 30 U/L Normal 5-41 [facility] Comment on above: Performed By: #### C DP, LIP, CP #### [address] [place], [place] [id number] Toolroom Machinist: Alex Amador MD Anion gap [Moles/Vol] 10 mmol/L Normal 9-17 [facility] Comment on above: Performed By: #### C DP LIP, CP #### [facility] [facility] [address] [place], [place] [id number] Toolroom Machinist: Alex Amador MD AST [Catalytic activity/Vol] 21 U/L Normal <40 [facility] Comment on above: Performed By: #### C DP LIP, CP #### [facility] [address] [place], [place] [id number] Toolroom Machinist: Alex Amador MD Bilirubin [Mass/Vol] 0.7 mg/dL Normal 0.3-1.2 [facility] Comment on above: Performed By: #### C LINH LIP, CP #### [facility] [address] [place] [address] [place] [place], [place] [id number] Toolroom Machinist: Alex Amador MD BUN/CRE Ratio 13 Normal 9-20 [facility] Comment on above: Performed By: #### C RAMÓN MELTON, CP #### [facility] [address] [place], [place] [id number] Toolroom Machinist: Alex Amador MD Calcium [Mass/Vol] 9.1 mg/dL Normal 8.6-10.4 [facility] Comment on above: Performed By: #### C DP LIP, CP #### [facility] [address] [place], [place] [id number] Toolroom Machinist: Alex Amador MD Chloride [Moles/Vol] 102 mmol/L Normal 98-107 [facility] Comment on above: Performed By: #### C DP LIP, CP #### [facility] [address] [place], [place] [id number] Toolroom Machinist: Alex Amador MD CO2 [Moles/Vol] 27 mmol/L Normal 20-31 [facility] Comment on above: Performed By: #### C RAMÓN MELTON, CP #### [facility] [address] [place] [address] Toolroom Machinist: Alex Amador MD Creatinine [Mass/Vol] 0.8 mg/dL Normal 0.7-1.2 [facility] Comment on above: Performed By: #### C RAMÓN MELTON, CP #### [facility] [address] [place] [address] Toolroom Machinist: Alex Amador MD GFR/1.73 sq M.predicted among non-blacks MDRD (S/P/Bld) [Vol rate/Area] mL/min/{1.73_m2} Normal >60 [facility] Comment on above: Result Comment: These [...] By: #### C RAMÓN MELTON, CP #### [facility] [address] [place] [address] [place] [address] Toolroom Machinist: Alex Amador MD Glucose [Mass/Vol] 97 mg/dL Normal 70-99 [facility] Comment on above: Performed By: #### C RAMÓN MELTON, CP #### [facility] [address] [place] [address] Toolroom Machinist: Alex Amador MD Potassium [Moles/Vol] 4.2 mmol/L Normal 3.7-5.3 [facility] Comment on above: Performed By: #### C RAMÓN MELTON, CP #### [facility] [address] [place] [address] Toolroom Machinist: Alex Amador MD Protein [Mass/Vol] 8.0 g/dL Normal 6.4-8.3 [facility] Comment on above: Performed By: #### C DP, LIP, CP #### [facility] [address] [place] [address] Toolroom Machinist: Alex Amador MD Sodium [Moles/Vol] 139 mmol/L Normal 135-144 [facility] Comment on above: Performed By: #### C DP, LIP, CP #### [facility] [address] [place], [place] [id number] Toolroom Machinist: Alex Amador MD Urea nitrogen [Mass/Vol] 10 mg/dL Normal 6-20 [facility] Comment on above: Performed By: #### C DP, LIP, CP #### [facility] [address] [place] [address] Toolroom Machinist: Alex Amador MD Lipaseon 07-04-2023 Lipase [Catalytic activity/Vol] 29 U/L Normal 13-60 [facility] Comment on above: Performed By: #### C DP, LIP, CP #### [facility] [address] [place] [address] Toolroom Machinist: Alex Amador MD 36on 11-21-2022 36 Patient's [...] cost is very similar. Help! Thanks. Normal [facility] CBCon 11-17-2022 Erythrocyte distribution width (RBC) [Ratio] 12.9 % Normal 11.5-15.0 [facility] Comment on above: Performed By: #### L [id number] ####[facility] (BEAKER)[address] [place] [address] ERYTHROCYTE MEAN CORPUSCULAR HEMOGLOBIN CONCENTRATION (G/DL) BY AUTOMATED 34.2 g/dL Normal 32.0-35.0 [facility] Comment on above: Performed By: #### L [id number] ####[facility] ([facility])[address] [place] [address] Hematocrit (Bld) [Volume fraction] 43.6 % Normal 39.0-55.0 [facility] Comment on above: Performed By: #### L [id number] ####[facility] ([facility])[address] [place] [address] Hemoglobin (Bld) [Mass/Vol] 14.9 g/dL Normal 13.0-17.0 [facility] Comment on above: Performed By: #### L [id number] ####[facility] ([facility])[address] [place] [address] MCH (RBC) [Entitic mass] 30.2 pg Normal 27.0-33.0 [facility] Comment on above: Performed By: #### L [id number] ####[facility] ([facility])[address] [place] [address] MCV (RBC) [Entitic vol] 88.4 fL Normal 82.0-98.0 [facility] Comment on above: Performed By: #### L [id number] ####[facility] ([facility])[address] [place] [address] PLATELETS (10*3/UL) IN BLOOD AUTOMATED COUNT 237 10*3/uL Normal 150-400 [facility] Comment on above: Performed By: #### L [id number] ####[facility] ([facility])[address] [place] [address] RBC (Bld) [#/Vol] 4.93 10*6/uL Normal 4.20-5.70 [facility] Comment on above: Performed By: #### L [id number] ####[facility] [place] [address] WBC (Bld) [#/Vol] 10.15 10*3/uL Normal 4.00-10.60 [facility] Comment on above: Performed By: #### L [id number] ####[facility] ([facility])[address] [address] HPon 11-17-2022 HP H&P reviewed. The patient [...] consent was signed prior to the procedure. [facility] HP H&P reviewed. The patient was examined and there are no changes to the H&P. Rafat Garcia MD, MPH, [facility], [facility], [facility] Interventional Cardiology Pager Email: [email or web address] NURSNOTEsigrid 11-17-2022 NURSNOTE RN educated pt on d/c instructions. RN encouraged pt to voice any questions or concerns. Pt verbalizes no questions or concerns at this time. Pt was wheeled off of unit with all of belongings. [facility] Orders Onlyon 11-09-2022 Orders Only [id number] Henrik Cavanaugh 1980 M Date Provider Department Center 11/09/2022 [facility] [place] [facility] Family History Problem Relation Age of Onset Coronary artery disease Mother's Brother Peripheral vascular disease Mother's Brother Family Status - Relation Status Age at Mother's Brother [facility] HPon 10-31-2022 [facility] Cardiology Clinic Note Chief Complaint: Patient here for follow up [facility] for chest pain. He was seen [...] pending the above Rafat Garcia MD, MPH, [facility], [facility], [facility] Interventional Cardiology Pager Email: [email or web address] [facility] Office Visiton 10-31-2022 Follow-up visit [id number] Henrik Cavanaugh 1980 [facility] Provider Department Center 10/31/2022 Davie-RAFAT GARCIA CINDY Sin Family History Problem Relation Age of Onset Coronary artery disease Mother's Brother Peripheral vascular disease Mother's Brother Family Status - Relation Status Age at Mother's Brother Level of Service:13924 [place] OFFICE/OUTPATIENT ESTABLISHED HIGH MDM 40-54 MIN Normal [facility] Orders Onlyon 10-31-2022 Orders Only [id number] Henrik Cavanaugh 1980 [facility] Provider Department Center 10/31/2022 ATE BENÍTEZ CINDY Sin Family History Problem Relation Age of Onset Coronary artery disease Mother's Brother Peripheral vascular disease Mother's Brother Family Status - Relation Status Age at Mother's Brother Normal [facility] Activated partial thrombopla stin time (aPTT) in platelet poor plasma by coagulation aOrdered By: Socorro Osullivan on 10-11-2022 aPTT Coag (PPP) [Time] 27.7 s 25.1-36.5 [facility] Basophils Auto (Bld) [#/Vol] Ordered By: Socorro Osullivan on 10-11-2022 Basophils (Bld) [#/Vol] 0.1 10*3/uL 0.0-0.2 [facility] Basophils/100 WBC Auto (Bld) Ordered By: Socorro Osullivan on 10-11-2022 Basophils/100 WBC (Bld) 0.9 % . [facility] Calcium [Mass/volume] in Ser um or PlasmaOrdered By: Socorro Osullivan on 10-11-2022 Calcium [Mass/Vol] 9.5 mg/dL 8.6-10.3 [facility] Carbon dioxide, total [Moles /volume] in Serum or PlasmaOrdered By: Socorro Osullivan on 10-11-2022 CO2 [Moles/Vol] 29.1 mmol/L 21.0-31.0 [facility] Chloride [Moles/volume] in S josselin or PlasmaOrdered By: Socorro Osullivan on 10-11-2022 Chloride [Moles/Vol] 102 mmol/L 98-107 [facility] Creatine kinase [Enzymatic a ctivity/volume] in Serum or PlasmaOrdered By: Socorro Osullivan on 10-11-2022 CK [Catalytic activity/Vol] 87 U/L 30-223 [facility] Creatinine [Mass/volume] in Serum or PlasmaOrdered By: Socorro Osullivan on 10-11-2022 Creatinine [Mass/Vol] 0.79 mg/dL 0.70-1.30 [facility] Eosinophils Auto (Bld) [#/Vo l]Ordered By: Socorro Osullivan on 10-11-2022 Eosinophils (Bld) [#/Vol] 0.2 10*3/uL 0.0-0.45 [facility] Eosinophils/100 WBC Auto (Bl d)Ordered By: Socorro Osullivan on 10-11-2022 Eosinophils/100 WBC (Bld) 2.5 % . [facility] Erythrocyte distribution wid th Auto (RBC) [Ratio]Ordered By: Socorro Osullivan on 10-11-2022 Erythrocyte distribution width (RBC) [Ratio] 13.3 % 12.0-14.8 [facility] Glucose [Mass/volume] in Ser um or PlasmaOrdered By: Socorro Osullivan on 10-11-2022 Glucose [Mass/Vol] 90 mg/dL 70-100 [facility] Comment on above: ADA recommended refe rence rangeRandom Glucose Reference Range is dependent on time and content of last meal. Glucose of more than 200 mg/dL in a nonstressed, ambulatory subject supports the diagnosis of Diabetes Mellitus. Hematocrit Auto (Bld) [Volum e fraction]Ordered By: Socorro Osullivan on 10-11-2022 Hematocrit (Bld) [Volume fraction] 40.4 % 38.8-50.0 [facility] Hemoglobin [Mass/volume] in BloodOrdered By: Socorro Osullivan on 10-11-2022 Hemoglobin (Bld) [Mass/Vol] 14.2 g/dL 13.0-17.0 [facility] Laboratory - CoagulationOrde red By: Socorro Osullivan on 10-11-2022 PT Coag (PPP) [Time] 12.0 s 9.0-12.9 [facility] Leukocytes [#/volume] correc giselle for nucleated erythrocytes in Blood by Automated counOrdered By: Socorro Osullivan on 10-11-2022 WBC corrected for nucl RBC Auto (Bld) [#/Vol] 9.5 10*3/uL 4.1-10.5 [facility] Lymphocytes Auto (Bld) [#/Vo l]Ordered By: Socorro Osullivan on 10-11-2022 Lymphocytes (Bld) [#/Vol] 1.8 10*3/uL 1.00-4.8 [facility] Lymphocytes/100 WBC Auto (Bl d)Ordered By: Socorro Osullivan on 10-11-2022 Lymphocytes/100 WBC (Bld) 18.6 % . [facility] MCH Auto (RBC) [Entitic mass ]Ordered By: Socorro Osullivan on 10-11-2022 MCH (RBC) [Entitic mass] 30.4 pg 27.5-35.2 [facility] MCHC Auto (RBC) [Mass/Vol]Or dered By: Socorro Osullivan on 10-11-2022 MCHC (RBC) [Mass/Vol] 35.1 g/dL 32.5-35.6 [facility] MCV Auto (RBC) [Entitic vol] Ordered By: Socorro Osullivan on 08-01-2023 MCV (RBC) [Entitic vol] 86.6 fL 83.5-101 [facility] Monocyte distribution width [Entitic volume] in Blood by AutomatedOrdered By: Socorro Osullivan on 10-11-2022 Monocyte distribution width Auto (Bld) [Entitic vol] 18.08 % 0.00-20.00 [facility] Monocytes Auto (Bld) [#/Vol] Ordered By: Socorro Osullivan on 10-11-2022 Monocytes (Bld) [#/Vol] 0.7 10*3/uL 0.0-0.8 [facility] Monocytes/100 WBC Auto (Bld) Ordered By: Socorro Osullivan on 10-11-2022 Monocytes/100 WBC (Bld) 7.2 % . [facility] Natriuretic peptide B [Mass/ Vol]Ordered By: Socorro Osullivan on 10-11-2022 Natriuretic peptide B (Bld) [Mass/Vol] 21.0 pg/mL 5-100 [facility] Neutrophils Auto (Bld) [#/Vo l]Ordered By: Socorro Osullivan on 10-11-2022 Neutrophils (Bld) [#/Vol] 6.7 10*3/uL 1.8-7.7 [facility] Neutrophils/100 WBC Auto (Bl d)Ordered By: Socorro Osullivan on 10-11-2022 Neutrophils/100 WBC (Bld) 70.8 % . [facility] No Panel InformationOrdered By: Socorro Osullivan on 10-11-2022 Estimated GFR (CKD-EPI) > 60.0 mL/Min [facility] Creatinine Clearance (Chem 158.41 [facility] Nucleated erythrocytes [Pres ence] in Blood by Automated countOrdered By: Socorro Osullivan on 10-11-2022 Nucleated RBC Auto Ql (Bld) 0.2 /100{WBC} 0-0.5 [facility] Platelet mean volume Auto (B ld) [Entitic vol]Ordered By: Socorro Osullivan on 10-11-2022 Platelet mean volume (Bld) [Entitic vol] 8.0 fL 6.6-10.1 [facility] Platelet poor plasma interna tional normalized ratio (INR) by coagulation assay (relatOrdered By: Socorro Osullivan on 10-11-2022 INR Coag (PPP) [Relative time] 1.0 {INR} [facility] Comment on above: INR Therapeutic Rang [...] 10-11-2022 Platelets (Bld) [#/Vol] 218 10*3/uL 150-450 [facility] Potassium [Moles/volume] in Serum or PlasmaOrdered By: Socorro Osullivan on 10-11-2022 Potassium [Moles/Vol] 3.8 mmol/L 3.5-5.1 [facility] RBC Auto (Bld) [#/Vol]Ordere d By: Socorro Osullivan on 10-11-2022 RBC (Bld) [#/Vol] 4.67 10*6/uL 3.90-5.60 [facility] Serum or plasma anion gap de terminationOrdered By: Socorro Osullivan on 10-11-2022 Anion gap [Moles/Vol] 10.7 mmol/L 6.0-15.0 [facility] Sodium [Moles/volume] in Ser um or PlasmaOrdered By: Socorro Osullivan on 10-11-2022 Sodium [Moles/Vol] 138 mmol/L 136-145 [facility] Troponin I.cardiac [Mass/vol ume] in Serum or Plasma by Detection limit <= 0.01 ng/Ordered By: Socorro Osullivan on 10-11-2022 Troponin I.cardiac DL <= 0.01 ng/mL [Mass/Vol] 6.3 pg/mL 0.0-20.0 [facility] Urea nitrogen [Mass/volume] in Serum or PlasmaOrdered By: Socorro Osullivan on 10-11-2022 Urea nitrogen [Mass/Vol] 11 mg/dL 7-25 [facility] WBC Auto (Bld) [#/Vol]Ordere d By: Socorro Osullivan on 10-11-2022 WBC (Bld) [#/Vol] 9.5 10*3/uL 4.1-10.5 [facility] BNPon 05-16-2022 Natriuretic peptide B (Bld) [Mass/Vol] 51.0 pg/mL Normal <=450.0 [facility] Comment on above: Performed By: #### B SENIOR MARKET INTELLIGENCE CONSULTANT, CMADM, BMP #### [facility] [address] [address] [address] Divina Patino CARDIAC DAT 3-6on 3 CK [Catalytic activity/Vol] 43 U/L Normal 39-308 [facility] Comment on above: Performed By: #### L ACT #### [facility] [address] [place] [address] Dr. Divina Patino HSTROP 10.6 pg/mL Normal 4.0-76.1 [facility] Comment on above: Result Comment: CUT- OFF POINTS HAVE BEEN ESTABLISHED BASED ON THE FOURTH UNIVERSAL DEFINITIONS OF MYOCARDIAL INFARCTION. THE UPPER REFERENCE LIMIT (URL) OF TROPONIN, DEFINED THE 99TH PERCENTILE OF cTnI DISTRIBUTION IN A REFERENCE POPULATION, HAS BEEN CONFIRMED THE DECISION THRESHOLD FOR CO DIAGNOSIS. Performed By: #### L ACT #### [facility] [address] [place] [address] Dr. Divina SMITH DAT ADMITon 023 CK [Catalytic activity/Vol] 44 U/L Normal 39-308 [facility] Comment on above: Performed By: #### B SENIOR MARKET INTELLIGENCE CONSULTANT, CMADM, BMP #### [facility] [address] [place] [address] Dr. Divina Patino CK.MB [Mass/Vol] ng/mL Normal <=3.60 [facility] Comment on above: Performed By: #### B SENIOR MARKET INTELLIGENCE CONSULTANT, CMADM, BMP #### [facility] [address] [place] [address] Dr. Divina Patino HSTROP 9.9 pg/mL Normal 4.0-76.1 [facility] Comment on above: Result Comment: CUT- OFF POINTS HAVE BEEN ESTABLISHED BASED ON THE FOURTH UNIVERSAL DEFINITIONS OF MYOCARDIAL INFARCTION. THE UPPER REFERENCE LIMIT (URL) OF TROPONIN, DEFINED THE 99TH PERCENTILE OF cTnI DISTRIBUTION IN A REFERENCE POPULATION, HAS BEEN CONFIRMED THE DECISION THRESHOLD FOR CO DIAGNOSIS. Performed By: #### B SENIOR MARKET INTELLIGENCE CONSULTANT, CMADM, BMP #### [facility] [address] [place] [address] Dr. Divina Patino CIELO 21 ng/mL Normal 16-96 [facility] Comment on above: Performed By: #### B SENIOR MARKET INTELLIGENCE CONSULTANT, CMADM, BMP #### [facility] [address] [place] [address] Dr. Divina Patino CBC AUTO DIFFon 05-16-2022 BASO # 0.1 103/ul Normal 0.0-0.1 [facility] Comment on above: Performed By: #### C BC #### [facility] [address] [place] [address] Dr. Divina Patino Basophils/100 WBC (Bld) 0.6 % Normal 0.2-2.0 [facility] Comment on above: Performed By: #### C BC #### [facility] [address] [place] [address] Dr. Divina Patino EO # 0.3 103/ul Normal 0.0-0.7 [facility] Comment on above: Performed By: #### C BC #### [facility] [address] [place] [address] Dr. Divina Patino Eosinophils/100 WBC (Bld) 2.3 % Normal 0.9-7.0 [facility] Comment on above: Performed By: #### C BC #### [facility] [address] [place] [address] Dr. Divina Patino Erythrocyte distribution width (RBC) [Ratio] 12.3 % Normal 11.0-15.0 [facility] Comment on above: Performed By: #### C BC #### [facility] [address] [place] [address] Dr. Divina Patino Hematocrit (Bld) [Volume fraction] 41.6 % Critically low 42.0-54.0 [facility] Comment on above: Performed By: #### C BC #### [facility] [address] [place] [address] Dr. Divina Patino Hemoglobin (Bld) [Mass/Vol] 14.6 g/dL Normal 14.0-18.0 [facility] Comment on above: Performed By: #### C BC #### [facility] [address] [place] [address] Dr. Divina Patino IG # 0.12 10e3/ul Critically high 0.00-0.[address] [facility] Comment on above: Performed By: #### C BC #### [facility] [address] [address] [address] Divina Patino IG % 1.0 % Critically high 0.0-0.5 [facility] Comment on above: Performed By: #### C BC #### [facility] [address] [place] [address] Dr. Divina Patino LYMPH # 2.7 103/ul Normal 1.2-3.8 [facility] Comment on above: Performed By: #### C BC #### [facility] [address] [place] [address] Dr. Divina Patino Lymphocytes/100 WBC (Bld) 23.0 % Normal 20.5-60.0 [facility] Comment on above: Performed By: #### C BC #### [facility] [address] [place] [address] Dr. Divina Patino MANUAL DIFF REQ NO Normal [facility] Comment on above: Performed By: #### C BC #### [facility] [address] [place] [address] Dr. Divina Patino MCH (RBC) [Entitic mass] 30.0 pg Normal 25.9-34.0 [facility] Comment on above: Performed By: #### C BC #### [facility] [address] [place] [address] Dr. Divina Patino MCHC (RBC) [Mass/Vol] 35.1 g/dL Normal 29.9-35.2 [facility] Comment on above: Performed By: #### C BC #### [facility] [address] [place] [address] Dr. Divina Patino MCV (RBC) [Entitic vol] 85.6 fL Normal 80.0-94.0 [facility] Comment on above: Performed By: #### C BC #### [facility] [address] [place] [address] Dr. Divina Patino MONO # 1.0 103/ul Critically high 0.3-0.8 [facility] Comment on above: Performed By: #### C BC #### [facility] [address] [address] [address] Divina Patino Monocytes/100 WBC (Bld) 8.6 % Normal 1.7-12.0 [facility] Comment on above: Performed By: #### C BC #### [facility] [address] [place] [address] Dr. Divina Patino NEUT # 7.4 103/ul Critically high 1.4-6.5 [facility] Comment on above: Performed By: #### C BC #### [facility] [address] [place] [address] Dr. Divina Patino Neutrophils/100 WBC (Bld) 64.5 % Normal 43.0-75.0 [facility] Comment on above: Performed By: #### C BC #### [facility] [address] [place] [address] Dr. Divina Patino Platelet mean volume (Bld) [Entitic vol] 9.9 fL Normal 9.5-13.5 [facility] Comment on above: Performed By: #### C BC #### [facility] [address] [place] [address] Dr. Divina Patino PLT 231 103/ul Normal 150-450 [facility] Comment on above: Performed By: #### C BC #### [facility] [address] [place], [place] [id number] Dr. Divina Patino RBC 4.86 106/ul Normal 4.70-6.10 [facility] Comment on above: Performed By: #### C BC #### [facility] [address] [place] [address] Dr. Divina Patino WBC 11.5 103/ul Critically high 4.0-11.0 [facility] Comment on above: Performed By: #### C BC #### [facility] [address] [address] [address] Divina Patino D-DIMERon 05-16-2022 D-DIMER 0.19 mg/L FEU Normal <=0.59 [facility] Comment on above: Performed By: #### D DIM #### [facility] [address] [address] [address] Divina Patino D-DIMER COMMENTS SEE BELOW Normal [facility] Comment on above: Result Comment: Incr eases [...] hospitalization. Performed By: #### D DIM #### [facility] [address] [address] [address] Divina Patino LACTATE/LACTIC ACIDon 2022 Lactate [Moles/Vol] 1.5 mmol/L Normal 0.4-1.9 [facility] Comment on above: Performed By: #### L ACT #### [facility] [address] [address] [address] Divina Patino PROF CHEM 8 (BAS METB)on Anion gap [Moles/Vol] 13.7 mmol/L Normal [facility] Comment on above: Performed By: #### B SENIOR MARKET INTELLIGENCE CONSULTANT, CMADM, BMP #### [facility] [address] [address] [address] Divina Patino Calcium [Mass/Vol] 8.7 mg/dL Normal 8.5-10.1 [facility] Comment on above: Performed By: #### B SENIOR MARKET INTELLIGENCE CONSULTANT, CMADM, BMP #### [facility] [address] [place] [address] Dr. Divina Patino Chloride [Moles/Vol] 102 mmol/L Normal 98-107 [facility] Comment on above: Performed By: #### B SENIOR MARKET INTELLIGENCE CONSULTANT, CMADM, BMP #### [facility] [address] [address] [address] Divina Patino CO2 [Moles/Vol] 27.1 mmol/L Normal 21.0-32.0 [facility] Comment on above: Performed By: #### B SENIOR MARKET INTELLIGENCE CONSULTANT, CMADM, BMP #### [facility] [address] [place] [address] Dr. Divina Patino Creatinine [Mass/Vol] 0.85 mg/dL Normal 0.70-1.30 [facility] Comment on above: Performed By: #### B SENIOR MARKET INTELLIGENCE CONSULTANT, CMADM, BMP #### [facility] [address] [place] [address] Dr. Divina Patino EGFR-AF GUINEAN >60 Normal >=60 [facility] Comment on above: Performed By: #### B SENIOR MARKET INTELLIGENCE CONSULTANT, CMADM, BMP #### [facility] [address] [place] [address] Dr. Divina Patino EGFR-NON AF GUINEAN >60 Normal >=60 [facility] [facility] Comment on above: Performed By: #### B SENIOR MARKET INTELLIGENCE CONSULTANT, CMADM, BMP #### [facility] [address] [place] [address] Dr. Divina Patino Glucose [Mass/Vol] 114 mg/dL Critically high 74-106 [facility] Comment on above: Performed By: #### B SENIOR MARKET INTELLIGENCE CONSULTANT, CMADM, BMP #### [facility] [address] [place] [address] Dr. Divina Patino Potassium [Moles/Vol] 3.8 mmol/L Normal 3.5-5.1 [facility] Comment on above: Performed By: #### B SENIOR MARKET INTELLIGENCE CONSULTANT, CMADM, BMP #### [facility] [address] [place] [address] Dr. iDvina Patino Sodium [Moles/Vol] 139 mmol/L Normal 136-145 [facility] Comment on above: Performed By: #### B SENIOR MARKET INTELLIGENCE CONSULTANT, CMADM, BMP #### [facility] [address] [place] [address] Dr. Divina Patino Urea nitrogen [Mass/Vol] 15.0 mg/dL Normal 7.0-18.0 [facility] Comment on above: Performed By: #### B ESME ORTEGA BMP #### [facility] [address] [address] [address] Divina Patino Urea nitrogen/Creatinine [Mass ratio] 17.6 mg/mg Normal [facility] Comment on above: Performed By: #### B ESME ORTEGA BMP #### [facility] [address] [address] [address] Divina Patino XR CHEST 1 Von [...] AMAN PURCELL Date: 2022-05-15 23:20 Normal [facility] CARDIAC DAT ADMITon 023 CK [Catalytic activity/Vol] 78 U/L Normal 39-308 [facility] Comment on above: Performed By: #### L ACT #### [facility] [address] [place] [address] Dr. Divina Patino CK.MB [Mass/Vol] 1.08 ng/mL Normal <=3.60 [facility] Comment on above: Performed By: #### L ACT #### [facility] [address] [place] [address] Dr. Divina Patino HSTROP 12.2 pg/mL Normal 4.0-76.1 [facility] Comment on above: Result Comment: CUT- OFF POINTS HAVE BEEN ESTABLISHED BASED ON THE FOURTH UNIVERSAL DEFINITIONS OF MYOCARDIAL INFARCTION. THE UPPER REFERENCE LIMIT (URL) OF TROPONIN, DEFINED THE 99TH PERCENTILE OF cTnI DISTRIBUTION IN A REFERENCE POPULATION, HAS BEEN CONFIRMED THE DECISION THRESHOLD FOR CO DIAGNOSIS. Performed By: #### L ACT #### [facility] [address] [place] [address] Dr. Divina Patino CIELO 24 ng/mL Normal 16-96 [facility] Comment on above: Performed By: #### L ACT #### [facility] [address] [place] [address] Dr. Divina Patino CBC AUTO DIFFon 05-11-2022 BASO # 0.1 103/ul Normal 0.0-0.1 [facility] Comment on above: Performed By: #### L ACT #### [facility] [address] [place] [address] Dr. Divina Patino Basophils/100 WBC (Bld) 0.6 % Normal 0.2-2.0 [facility] Comment on above: Performed By: #### L ACT #### [facility] [address] [place] [address] Dr. Divina Patino EO # 0.2 103/ul Normal 0.0-0.7 [facility] Comment on above: Performed By: #### L ACT #### [facility] [address] [place] [address] Dr. Divina Patino Eosinophils/100 WBC (Bld) 2.0 % Normal 0.9-7.0 [facility] Comment on above: Performed By: #### L ACT #### [facility] [address] [place] [address] Dr. Divina Patino Erythrocyte distribution width (RBC) [Ratio] 12.4 % Normal 11.0-15.0 [facility] Comment on above: Performed By: #### L ACT #### [facility] [address] [place] [address] Dr. Divina Patino Hematocrit (Bld) [Volume fraction] 43.8 % Normal 42.0-54.0 [facility] Comment on above: Performed By: #### L ACT #### [facility] [address] [place] [address] Dr. Divina Patino Hemoglobin (Bld) [Mass/Vol] 15.3 g/dL Normal 14.0-18.0 [facility] Comment on above: Performed By: #### L ACT #### [facility] [address] [place] [address] Dr. Divina Patino IG # 0.06 10e3/ul Critically high 0.00-0.[address] [facility] Comment on above: Performed By: #### L ACT #### [facility] [address] [place] [address] Dr. Divnia Patino IG % 0.6 % Critically high 0.0-0.5 [facility] Comment on above: Performed By: #### L ACT #### [facility] [address] [address] [address] Divina Patino LYMPH # 2.0 103/ul Normal 1.2-3.8 [facility] Comment on above: Performed By: #### L ACT #### [facility] [address] [place] [address] Dr. Divina Patino Lymphocytes/100 WBC (Bld) 19.9 % Critically low 20.5-60.0 [facility] Comment on above: Performed By: #### L ACT #### [facility] [address] [place] [address] Dr. Divina Patino MANUAL DIFF REQ NO Normal [facility] Comment on above: Performed By: #### L ACT #### [facility] [address] [place] [address] Dr. Divina Patino MCH (RBC) [Entitic mass] 30.2 pg Normal 25.9-34.0 [facility] Comment on above: Performed By: #### L ACT #### [facility] [address] [place] [address] Dr. Divina Patino MCHC (RBC) [Mass/Vol] 34.9 g/dL Normal 29.9-35.2 [facility] Comment on above: Performed By: #### L ACT #### [facility] [address] [place] [address] Dr. Divina Patino MCV (RBC) [Entitic vol] 86.6 fL Normal 80.0-94.0 [facility] Comment on above: Performed By: #### L ACT #### [facility] [address] [place] [address] Dr. Divina Patino MONO # 0.8 103/ul Normal 0.3-0.8 [facility] Comment on above: Performed By: #### L ACT #### [facility] [address] [address] [address] Divina Patino Monocytes/100 WBC (Bld) 7.7 % Normal 1.7-12.0 [facility] Comment on above: Performed By: #### L ACT #### [facility] [address] [address] [address] Divina Patino NEUT # 7.1 103/ul Critically high 1.4-6.5 [facility] Comment on above: Performed By: #### L ACT #### [facility] [address] [address] [address] Divina Patino Neutrophils/100 WBC (Bld) 69.2 % Normal 43.0-75.0 [facility] Comment on above: Performed By: #### L ACT #### [facility] [address] [place] [address] Dr. Divina Patino Platelet mean volume (Bld) [Entitic vol] 10.3 fL Normal 9.5-13.5 [facility] Comment on above: Performed By: #### L ACT #### [facility] [address] [place] [address] Dr. Divina Patino PLT 238 103/ul Normal 150-450 [facility] Comment on above: Performed By: #### L ACT #### [facility] [address] [place] [address] Dr. Divina Patino RBC 5.06 106/ul Normal 4.70-6.10 [facility] Comment on above: Performed By: #### L ACT #### [facility] [address] [place] [address] Dr. Divina Patino WBC 10.3 103/ul Normal 4.0-11.0 [facility] Comment on above: Performed By: #### L ACT #### [facility] [address] [place] [address] Dr. Divina Patino CRPon 05-11-2022 CRP [Mass/Vol] mg/L Normal <=1.0 [facility] Comment on above: Performed By: #### L ACT #### [facility] [address] HEAD WO CONon [...] JAMES JOHNSTON Date: 2022-05-11 19:47 Normal [facility] Covid-19 PCR (CVDTB)on SARS-CoV-2 (COVID-19) RNA JERRICA+probe Ql (Unsp spec) Not detected Normal NOT DETECTED [facility] Comment on above: Result Comment: When [...] for this test is supported by the [place] of Health and Human Service's declaration that [...] used). Performed By: #### C VDTBH #### [facility] [address] [address] [address] Divina Patino INFLUENZA A AND B AGon 05-11 INFLUANEGH SEE BELOW Normal [facility] Comment on above: Result Comment: Nega tive for Flu A protein angiten. Infection due to Flu A cannot be ruled out. Flu A angiten in the sample may be below the detection limit of the test. Performed By: #### I NFLUAB #### [facility] [address] [place] [address] Dr. Divina Pat[facility] SEE BELOW Normal [facility] Comment on above: Result Comment: Nega tive for Flu B protein antigen. Infection due to Flu B cannot be ruled out. Flu B antigen in the sample may be below the detection limit of the test. Performed By: #### I NFLUAB #### [facility] [address] [place] [address] Dr. Divina Patino INFLUENZA A AG Negative Normal NEGATIVE SEE COMMENT [facility] Comment on above: Performed By: #### I NFLUAB #### [facility] [address] [place] [address] Dr. Divina Patino INFLUENZA B AG Negative Normal NEGATIVE SEE COMMENT [facility] Comment on above: Performed By: #### I NFLUAB #### [facility] [address] [place] [address] Dr. Divina Patino LACTATE/LACTIC ACIDon 2022 Lactate [Moles/Vol] 1.8 mmol/L Normal 0.4-1.9 [facility] Comment on above: Performed By: #### L ACT #### [facility] [address] [place] [address] Dr. Divina Patino MONOon 05-11-2022 Monocytes (Bld) [#/Vol] Negative Normal NEGATIVE [facility] Comment on above: Performed By: #### M LEANDRO #### [facility] [address] [place] [address] Dr. Divina Patino PROF CHEM 8 (BAS METB)on Anion gap [Moles/Vol] 12.8 mmol/L Normal [facility] Comment on above: Performed By: #### L ACT #### [facility] [address] [place] [address] Dr. Divina Patino Calcium [Mass/Vol] 9.1 mg/dL Normal 8.5-10.1 [facility] Comment on above: Performed By: #### L ACT #### [facility] [address] [place] [address] Dr. Divina Patino Chloride [Moles/Vol] 101 mmol/L Normal 98-107 [facility] Comment on above: Performed By: #### L ACT #### [facility] [address] [place] [address] Dr. Divina Patino CO2 [Moles/Vol] 26.9 mmol/L Normal 21.0-32.0 [facility] Comment on above: Performed By: #### L ACT #### [facility] [address] [place] [address] Dr. Diivna Patino Creatinine [Mass/Vol] 0.90 mg/dL Normal 0.70-1.30 [facility] Comment on above: Performed By: #### L ACT #### [facility] [address] [place] [address] Dr. Divina Ptaino EGFR-AF GUINEAN >60 Normal >=60 [facility] Comment on above: Performed By: #### L ACT #### [facility] [address] [place] [address] Dr. Divina Patino EGFR-NON AF GUINEAN >60 Normal >=60 [facility] Comment on above: Performed By: #### L ACT #### [facility] [address] [place] [address] Dr. Divina Patino Glucose [Mass/Vol] 110 mg/dL Critically high 74-106 [facility] Comment on above: Performed By: #### L ACT #### [facility] [address] [place] [address] Dr. Divina Patino Potassium [Moles/Vol] 3.7 mmol/L Normal 3.5-5.1 [facility] Comment on above: Performed By: #### L ACT #### [facility] [address] [place] [address] Dr. Divina Patino Sodium [Moles/Vol] 137 mmol/L Normal 136-145 [facility] Comment on above: Performed By: #### L ACT #### [facility] [address] [address] [address] Divina Patino Urea nitrogen [Mass/Vol] 11.0 mg/dL Normal 7.0-18.0 [facility] Comment on above: Performed By: #### L ACT #### [facility] [address] [address] [address] Divina Patino Urea nitrogen/Creatinine [Mass ratio] 12.2 mg/mg Normal [facility] Comment on above: Performed By: #### L ACT #### [facility] [address] [address] [address] Divina Patino [facility] SED RATE 16 mm/hr Critically high <=15 [facility] Comment on above: Performed By: #### L ACT #### [facility] [address] [address] [address] Divina Patino TSHon 05-11-2022 TSH 3.949 uIU/mL Critically high 0.358-3.740 [facility] Comment on above: Performed By: #### L ACT #### [facility] [address] [address] [address] Divina Patino COVID-19 SOFIAOrdered By: Andres Elizondo on 12-02-2021 SARS-CoV+SARS-CoV-2 (COVID-19) Ag IA.rapid Ql (Resp) Negative Negative [facility] Comment on above: This is a duplicate Judith SARS Antigen (ANURAG) result to be used for statistical tracking purpose only. No Panel InformationOrdered By: Elian Elizondo on 12-02-2021 SARS Antigen (LFIA) [facility] CBC with Auto Differentialon 06-08-2021 Absolute Eos # 0.11 [facility] Absolute Immature Granulocyte 0.06 [facility] Lymph # 1.65 [facility] alth Absolute Maverick # 1.03 [facility] Basophils (Bld) [#/Vol] 0.07 10*3/uL [facility] Olo Basophils/100 WBC (Bld) 1 % 0 - 2 % [facility] Eosinophils/100 WBC (Bld) 1 % 1 - 4 % [facility] Hematocrit (Bld) [Volume fraction] 47.5 % 40.7 - 50.3 % [facility] Hemoglobin.gastroint estinal spec 1 Ql (Stl) 16.3 g/dL 13.0 - 17.0 g/dL [facility] Immature granulocytes/100 WBC (Bld) 1 % High 0 [facility] Interpretation and review of laboratory results Abnormal [facility] Lymphocytes/100 WBC (Bld) 14 % Low 24 - 43 % [facility] MCH (RBC) [Entitic mass] 30.5 pg 25.2 - 33.5 pg [facility] MCHC (RBC) [Mass/Vol] 34.3 g/dL 28.4 - 34.8 g/dL [facility] MCV (RBC) [Entitic vol] 89.0 fL 82.6 - 102.9 fL [facility] Monocytes/100 WBC (Bld) 9 % 3 - 12 % [facility] NRBC Automated 0.0 0.0 per 100 WBC [facility] Platelet distribution width (Bld) [Ratio] 12.5 % 11.8 - 14.4 % [facility] Platelet mean volume (Bld) [Entitic vol] 10.8 fL 8.1 - 13.5 fL [facility] Platelets (Bld) [#/Vol] 231 10*3/uL [facility] RBC (Bld) [#/Vol] 5.34 10*6/uL 4.21 - 5.77 m/uL [facility] Segmented neutrophils/100 WBC (Bld) 74 % High 36 - 65 % [facility] Segs Absolute 9.05 High [facility] Healt h WBC (Bld) [#/Vol] 12.0 10*3/uL [facility] CT ABDOMEN PELVIS W [...] COMPARISON: 02/05/2019 HISTORY: ORDERING SYSTEM PROVIDED HISTORY: [facility] TECHNOLOGIST PROVIDED HISTORY: [facility] Decision Support Exception - unselect [...] aneurysm. Bones/Soft Tissues: Mild multilevel thoracolumbar spondylosis. [facility] RIS CONSOLIDATED Ok Rodgers MD - [...] COMPARISON: 02/05/2019 HISTORY: ORDERING SYSTEM PROVIDED HISTORY: [facility] TECHNOLOGIST PROVIDED HISTORY: [facility] Decision Support Exception - unselect [...] stones in the left kidney. Normal appendix. [employer] Work Phone: Radiology Study observation (narrative) [employer] Phone: CT ABDOMEN PELVIS W IV CONTR AST Additional Contrast? NoneOrdered By: Ok Rodgers on 06-08-2021 [employer] Phone: Comprehensive Metabolic Pane karan 06-08-2021 Albumin [Mass/Vol] 4.6 g/dL 3.5 - 5.2 g/dL [facility] Albumin/Globulin [Mass ratio] 1.5 {ratio} [employer] ALP (Bld) [Catalytic activity/Vol] 90 U/L 40 - 129 U/L [employer] ALT [Catalytic activity/Vol] 37 U/L 5 - 41 U/L [employer] Anion gap [Moles/Vol] 10 mmol/L 9 - 17 mmol/L [employer] AST [Catalytic activity/Vol] 18 U/L <40 [employer] Bilirubin [Mass/Vol] 0.83 mg/dL 0.3 - 1.2 mg/dL [employer] Calcium [Mass/Vol] 9.7 mg/dL 8.6 - 10.4 mg/dL [employer] Chloride [Moles/Vol] 101 mmol/L 98 - 107 mmol/L [employer] CO2 [Moles/Vol] 29 mmol/L 20 - 31 mmol/L [employer] Creatinine [Mass/Vol] 0.83 mg/dL 0.70 - 1.20 mg/dL [employer] Free PSA/Total PSA [Mass fraction] 7.6 g/dL 6.4 - 8.3 g/dL [employer] GFR >60 >60 mL/min [facility] GFR Non- >60 >60 mL/min [facility] Glucose [Mass/Vol] 110 mg/dL High 70 - 99 mg/dL [facility] Interpretation and review of laboratory results Abnormal [facility] Potassium [Moles/Vol] 4.2 mmol/L 3.7 - 5.3 mmol/L [facility] Sodium [Moles/Vol] 140 mmol/L 135 - 144 mmol/L [facility] Urea nitrogen (BldV) [Mass/Vol] 10 mg/dL 6 - 20 mg/dL [facility] Urea nitrogen/Creatinine (Bld) [Mass ratio] 12 [facility] Laboratory - Chemistry and C hemistry - challengeon 06-08-2021 GFR/1.73 sq M.predicted MDRD (S/P/Bld) [Vol rate/Area] [facility] Comment on above: Average GFR for 40-4 9 years old: 99 mL/min/1.73sq m Chronic Kidney Disease: <60 mL/min/1.73sq m Kidney failure: <15 mL/min/1.73sq m eGFR calculated using average adult body mass. Additional eGFR calculator available at: http://www.OrderGroove/multiple_crcl_2012.htm Stage 1: Some kidney damage normal GFR Stage 2: Mild kidney damage GFR 60-89 Stage 3: Moderate kidney damage GFR 30-59 Stage 4: Severe kidney damage GFR 15-29 Stage 5: Severe kidney damage GFR <15 ESRD - chronic treatment by dialysis or transplant Lactic Acidon 06-08-2021 Lactate [Moles/Vol] 2.1 mmol/L 0.5 - 2.2 mmol/L [facility] Lipaseon 06-08-2021 Lipase [Catalytic activity/Vol] 30 U/L 13 - 60 U/L [facility] No Panel Informationon 06-08 [facility] Basic Metabolic Panelon Anion gap [Moles/Vol] 9 mmol/L 9 - 17 mmol/L [facility] [place] Bun/Cre Ratio 12 [facility] [place] Calcium [Mass/Vol] 8.8 mg/dL 8.6 - 10.4 mg/dL [facility] [place] Chloride [Moles/Vol] 98 mmol/L 98 - 107 mmol/L [place] CO2 [Moles/Vol] 26 mmol/L 20 - 31 mmol/L [place] Creatinine [Mass/Vol] 1.04 mg/dL 0.7 - 1.2 mg/dL [place] GFR >60 >60 mL/min [place] GFR Non- >60 >60 mL/min [place] Glucose [Mass/Vol] 111 mg/dL High 70 - 99 mg/dL [place], [place] Interpretation and review of laboratory results Abnormal [place] Potassium [Moles/Vol] 3.9 mmol/L 3.7 - 5.3 mmol/L [place] Sodium [Moles/Vol] 133 mmol/L Low 135 - 144 mmol/L [place] Urea nitrogen [Mass/Vol] 12 mg/dL 6 - 20 mg/dL [place] Brain Natriuretic Peptideon 03-19-2020 Natriuretic peptide B (Bld) [Mass/Vol] Pro-BNP Reference Range: [place] Comment on above: Rule Out: <300 Reis Zone: Age <50 300-450 Age 50-75 300-900 Age >75 300-1800 Usually represents mild to moderate HF but other cardiopulmonary causes cannot be ruled out. Rule In: Age <50 >450 Age 50-75 >900 Age >75 >1800 Natriuretic peptide B (Bld) [Mass/Vol] 60 pg/mL <300 [place] Comment on above: Pro-BNP results radha ot be compared to BNP results. CBC Auto Differentialon Basophils (Bld) [#/Vol] 0.04 10*3/uL [place] Basophils/100 WBC (Bld) 1 % 0 - 2 % [place] Differential Type NOT REPORTED [place] Eosinophils (Bld) [#/Vol] 0.04 10*3/uL [place] Eosinophils/100 WBC (Bld) 1 % 1 - 4 % [place] Erythrocyte distribution width (RBC) [Ratio] 12.5 % 11.8 - 14.4 % [place] Hematocrit (Bld) [Volume fraction] 48.2 % 40.7 - 50.3 % [place] Hemoglobin (Bld) [Mass/Vol] 16.3 g/dL 13 - 17 g/dL [place] Immature granulocytes (Bld) [#/Vol] 1 % High 0 [place] Immature granulocytes (Bld) [#/Vol] 0.07 10*3/uL [place] Interpretation and review of laboratory results Abnormal [place] Lymphocytes (Bld) [#/Vol] 1.10 10*3/uL [place] Lymphocytes/100 WBC (Bld) 13 % Low 24 - 43 % [place] MCH (RBC) [Entitic mass] 29.4 pg 25.2 - 33.5 pg [place] MCHC (RBC) [Mass/Vol] 33.8 g/dL 28.4 - 34.8 g/dL [place] MCV (RBC) [Entitic vol] 87.0 fL 82.6 - 102.9 fL [place] Monocytes (Bld) [#/Vol] 0.96 10*3/uL [place] Monocytes/100 WBC (Bld) 11 % 3 - 12 % [place] Platelet mean volume (Bld) [Entitic vol] 11.2 fL 8.1 - 13.5 fL [place] Platelets (Bld) [#/Vol] 175 10*3/uL [place] Platelets (Bld) [#/Vol] NOT REPORTED [place] RBC (Bld) [#/Vol] 5.54 10*6/uL 4.21 - 5.77 m/uL [place] RBC morphology finding Nom (Bld) NOT REPORTED [place] Segmented neutrophils/100 WBC (Bld) 73 % High 36 - 65 % [place] Segs Absolute 6.21 [place] WBC (Bld) [#/Vol] 8.4 10*3/uL [place] WBC (Bld) [#/Vol] 0.0 10*3/uL 0.0 per 100 WBC M [place], [place] WBC Morphology NOT REPORTED [facility] [place] COVID-19, PCRon 03-19-2020 Interpretation and review of laboratory results Abnormal [place] SARS-CoV-2, Rapid DETECTED Abnormal Not Detected [place] Comment on above: Rapid NAAT: The [...] this assay. Fact sheet for Healthcare Providers: https://www.fda.gov/media/298898/download Fact sheet for Patients: https://www.fda.gov/media/034119/download Methodology: Isothermal Nucleic Acid Amplification Results reported to the appropriate Health Department Source .NASOPHARYNGEAL SWAB [place], [place] CT CHEST PULMONARY EMBOLISM W CONTRASTon 03-19-2020 1. No pulmonary embolism. 2. Multifocal ground-glass opacities in the bilateral lungs with overall pattern of concern for underlying viral pneumonitis. 3. Hepatomegaly and diffuse steatosis in the abdomen, stable from remote imaging. [place] Tito, [facility] Incoming Radiant Results From [facility] - 03/19/2020 8:26 PM EST EXAMINATION: CTA [...] in the abdomen, stable from remote imaging. [place] EXAMINATION: CTA OF THE CHEST 03/19/2020 [...] Tissues/Bones: No skeletal abnormalities throughout the chest. [place] Lactic Acid, Plasmaon 2020 Lactate [Moles/Vol] 1.2 mmol/L 0.5 - 2.2 mmol/L [place] Lactic Acid, Whole Blood NOT REPORTED 0.7 - 2.1 mmol/L [place] Metabolic Panelon 03-19-2020 GFR/1.73 sq M predicted among non-blacks MDRD (S/P/Bld) [Vol rate/Area] [place] Comment on above: Average GFR for 40-4 9 years old: 99 mL/min/1.73sq m Chronic Kidney Disease: <60 mL/min/1.73sq m Kidney failure: <15 mL/min/1.73sq m eGFR calculated using average adult body mass. Additional eGFR calculator available at: http://www.OrderGroove/multiple_crcl_2012.htm Stage 1: Some kidney damage normal GFR Stage 2: Mild kidney damage GFR 60-89 Stage 3: Moderate kidney damage GFR 30-59 Stage 4: Severe kidney damage GFR 15-29 Stage 5: Severe kidney damage GFR <15 ESRD - chronic treatment by dialysis or transplant Otheron 03-19-2020 SARS-CoV-2 [place] Rapid influenza A/B antigens on 03-19-2020 Direct Exam NEGATIVE for Influenza A + B antigens. PCR testing to confirm this result is available upon request. Specimen will be saved in the laboratory for 7 days. Please call [phone] if PCR testing is indicated. [place] Special Requests NOT REPORTED [place] Specimen Description .NASOPHARYNGEAL SWAB [place] Troponinon 03-19-2020 Troponin I.cardiac [Mass/Vol] NOT REPORTED [place] Troponin T.cardiac [Mass/Vol] NOT REPORTED <0.03 ng/mL [place] Troponin, High Sensitivity 15 ng/L 0 - 22 ng/L [place] Comment on above: High Sensitivity Troponin values cannot be compared with other Troponin methodologies. Patients with high levels of Biotin oral intake (i.e >5mg/day) may have falsely decreased Troponin levels. Samples collected within 8 hours of biotin intake may require additional information for diagnosis. XR CHEST PORTABLEon 03-19-19 21 Tito, Mhpn Incoming Radiant Results From [facility] - 03/19/2020 6:06 PM EST EXAMINATION: ONE XRAY VIEW OF THE CHEST 03/19/2020 5:58 pm COMPARISON: June 27, 2018 HISTORY: ORDERING SYSTEM PROVIDED HISTORY: dyspnea TECHNOLOGIST PROVIDED HISTORY: dyspnea FINDINGS: Mild edema. Heart and mediastinum normal. Bony thorax intact. IMPRESSION: Mild edema or pneumonitis [place] EXAMINATION: ONE XRAY VIEW OF THE CHEST 03/19/2020 5:58 pm COMPARISON: June 27, 2018 HISTORY: ORDERING SYSTEM PROVIDED HISTORY: dyspnea TECHNOLOGIST PROVIDED HISTORY: dyspnea FINDINGS: Mild edema. Heart and mediastinum normal. Bony thorax intact. [place] Mild edema or pneumonitis [place] Otheron 10-21-2019 No acute abnormalities seen in the left foot or left ankle [place] EXAMINATION: THREE XRAY VIEWS OF THE [...] medial malleolus most likely from old trauma. [place] Tito, Mhpn Incoming Radiant Results From [facility] - 10/21/2019 4:26 PM EDT EXAMINATION: THREE [...] in the left foot or left ankle [place] Basic Metabolic Panel w/ Ref katrin to MGon 02-06-2019 Anion gap [Moles/Vol] 13 mmol/L 9 - 17 mmol/L [place] Bun/Cre Ratio 16 [place] Calcium [Mass/Vol] 8.4 mg/dL Low 8.6 - 10.4 mg/dL [place] Chloride [Moles/Vol] 99 mmol/L 98 - 107 mmol/L [place] CO2 [Moles/Vol] 23 mmol/L 20 - 31 mmol/L [place] Creatinine [Mass/Vol] 0.94 mg/dL 0.7 - 1.2 mg/dL [place] GFR >60 >60 mL/min [place] GFR Non- >60 >60 mL/min [place] Glucose [Mass/Vol] 130 mg/dL High 70 - 99 mg/dL [place] Interpretation and review of laboratory results Abnormal [place] Potassium [Moles/Vol] 3.7 mmol/L 3.7 - 5.3 mmol/L [place] Sodium [Moles/Vol] 135 mmol/L 135 - 144 mmol/L [place] Urea nitrogen [Mass/Vol] 15 mg/dL 6 - 20 mg/dL [place] CBCon 02-06-2019 Erythrocyte distribution width (RBC) [Ratio] 12.5 % 11.8 - 14.4 % [place] Hematocrit (Bld) [Volume fraction] 45.4 % 40.7 - 50.3 % [place] Hemoglobin (Bld) [Mass/Vol] 15.1 g/dL 13 - 17 g/dL [place] MCH (RBC) [Entitic mass] 29.8 pg 25.2 - 33.5 pg [place] MCHC (RBC) [Mass/Vol] 33.3 g/dL 28.4 - 34.8 g/dL [place] MCV (RBC) [Entitic vol] 89.5 fL 82.6 - 102.9 fL [place] Platelet mean volume (Bld) [Entitic vol] 10.4 fL 8.1 - 13.5 fL [place] Platelets (Bld) [#/Vol] 198 10*3/uL [place] RBC (Bld) [#/Vol] 5.07 10*6/uL 4.21 - 5.77 m/uL [place] WBC (Bld) [#/Vol] 0.0 10*3/uL 0.0 per 100 WBC M [place] WBC (Bld) [#/Vol] 10.7 10*3/uL [place] Culture Stoolon 02-06-2019 Campylobacter PCR NEGATIVE: No Campylobacter spp. (jejuni or coli) DNA Detected NEGATIVE: No Campylobacter spp. (jejuni or coli) DNA Detecte [place] E Coli Enterotoxigenic PCR NEGATIVE: No Enterotoxigenic E. coli (ETEC) Heat-labile and heat-stable (LT/ST) DNA Detected NEGATIVE: No Enterotoxigenic E. coli (ETEC) Heat-labile and [place] Plesiomonas Shigelloides PCR Negative NEGATIVE: No Plesionomas shigelloides DNA Detected [place] Salmonella PCR Negative NEGATIVE: No Salmonella spp. DNA Detected [place] Shigatoxin Gene PCR Negative NEGATIVE : No Shiga toxin-producing gene(s) Detected [place] Shigella Sp PCR Negative NEGATIVE: No Shigella spp. / EIEC DNA Detected [place] Specimen Description .FECES [place] Vibrio PCR NEGATIVE: No Vibrio (V. vulnificus, V, parahaemolyticus and V. cholerae) DNA Detected NEGATIVE: No Vibrio (V. vulnificus, V, parahaemolyticus and [place] Yersinia Enterocolitica PCR Negative NEGATIVE: No Yersinia enterocolitica DNA Detected [place] Metabolic Panelon 02-06-2019 GFR/1.73 sq M predicted among non-blacks MDRD (S/P/Bld) [Vol rate/Area] [place], [place] Comment on above: Stage 1: Some [...] mass. Additional eGFR calculator available at: http://www.The Networking Effect.TriPlay/multiple_crcl_2012.htm Microscopic Urinalysison Amorphous, UA NOT REPORTED None [place], [place] Bacteria, UA TRACE Abnormal None [place], [place] Casts UA NOT REPORTED /LPF [place] Crystals UA NOT REPORTED None /HPF [place] Epithelial Cells UA 0 TO 2 [place], [place] Interpretation and review of laboratory results Abnormal [place] Mucus, UA TRACE Abnormal None [place] Other Observations UA NOT REPORTED NOT REQ. [place] RBC (U) [#/Vol] 0 TO 2 [place] Renal Epithelial, Urine NOT REPORTED 0 /HPF [place] Trichomonas, UA NOT REPORTED None [place], [place] WBC, UA None [place] Yeast, UA NOT REPORTED None [place], [place] - [place] Urinalysis Reflex to Culture on 02-06-2019 Bilirubin Urine Negative NEGATIVE [place] Color, UA YELLOW YELLOW [place], [place] Glucose, Ur Negative NEGATIVE [place] Interpretation and review of laboratory results Abnormal [place] Ketones Ql (U) TRACE Abnormal NEGATIVE [place] Leukocyte esterase Test strip Ql (U) Negative NEGATIVE [place] Nitrite, Urine Negative NEGATIVE [place] pH, UA 5.5 [place] Protein (U) [Mass/Vol] TRACE Abnormal NEGATIVE [place] Specific [place], UA >1.030 High [place], [place] Turbidity UA CLEAR CLEAR [place] Urinalysis Comments NOT REPORTED [place] Urine Hgb 1+ Abnormal NEGATIVE [place] Urobilinogen, Urine Normal Normal [place] C DIFF TOXIN/ANTIGENon 02-05 C DIFF AG + TOXIN Negative NEGATIVE [place] Comment on above: No C. difficile anti gen and Toxin Detected. Specimen Description .FECES [place] CBCon 02-05-2019 Erythrocyte distribution width (RBC) [Ratio] 12.0 % 11.8 - 14.4 % [place] Hematocrit (Bld) [Volume fraction] 49.7 % 40.7 - 50.3 % [place] Hemoglobin (Bld) [Mass/Vol] 17.2 g/dL High 13 - 17 g/dL [place] Interpretation and review of laboratory results Abnormal [place] MCH (RBC) [Entitic mass] 30.4 pg 25.2 - 33.5 pg [place] MCHC (RBC) [Mass/Vol] 34.6 g/dL 28.4 - 34.8 g/dL [place] MCV (RBC) [Entitic vol] 87.8 fL 82.6 - 102.9 fL [place] Platelet mean volume (Bld) [Entitic vol] 10.8 fL 8.1 - 13.5 fL [place] Platelets (Bld) [#/Vol] 233 10*3/uL [place] RBC (Bld) [#/Vol] 5.66 10*6/uL 4.21 - 5.77 m/uL [place] WBC (Bld) [#/Vol] 15.0 10*3/uL [place] WBC (Bld) [#/Vol] 0.0 10*3/uL 0.0 per 100 WBC [place] CT ABDOMEN PELVIS W IV CONTR AST Additional Contrast? Noneon 02-05-2019 Tito, pn Incoming Radiant Results From [facility] - 02/05/2019 6:20 PM EST EXAMINATION: CT [...] pathologic adenopathy. Bones/Soft Tissues: Normal IMPRESSION: Ileus [place], [place] EXAMINATION: CT OF THE ABDOMEN AND [...] is no pathologic adenopathy. Bones/Soft Tissues: Normal [place] Ileus [place] Comprehensive Metabolic Pane karan 02-05-2019 Albumin [Mass/Vol] 4.6 g/dL 3.5 - 5.2 g/dL [place] Albumin/Globulin [Mass ratio] 1.4 {ratio} [place] ALP [Catalytic activity/Vol] 88 U/L 40 - 129 U/L [place] ALT [Catalytic activity/Vol] 43 U/L High 5 - 41 U/L [place] Anion gap [Moles/Vol] 19 mmol/L High 9 - 17 mmol/L [place] AST [Catalytic activity/Vol] 23 U/L <40 [place] Bilirubin Ql (U) 1.37 mg/dL High 0.3 - 1.2 mg/dL [place] Bun/Cre Ratio 16 [place] Calcium [Mass/Vol] 9.4 mg/dL 8.6 - 10.4 mg/dL [place] Chloride [Moles/Vol] 96 mmol/L Low 98 - 107 mmol/L [place] CO2 [Moles/Vol] 21 mmol/L 20 - 31 mmol/L [place] Creatinine [Mass/Vol] 0.9 mg/dL 0.7 - 1.2 mg/dL [place] GFR >60 >60 mL/min [place] GFR Non- >60 >60 mL/min [place] Glucose [Mass/Vol] 119 mg/dL High 70 - 99 mg/dL [place] Interpretation and review of laboratory results Abnormal [place] Potassium [Moles/Vol] 4.2 mmol/L 3.7 - 5.3 mmol/L [place] Protein [Mass/Vol] 8.0 g/dL 6.4 - 8.3 g/dL [place] Sodium [Moles/Vol] 136 mmol/L 135 - 144 mmol/L [place] Urea nitrogen [Mass/Vol] 14 mg/dL 6 - 20 mg/dL [place] Lactic Acid, Plasmaon 2018 Interpretation and review of laboratory results Abnormal [place] Lactate [Moles/Vol] 2.4 mmol/L High 0.5 - 2.2 mmol/L [place] Lactic Acid, Whole Blood NOT REPORTED 0.7 - 2.1 mmol/L [place] Lipaseon 02-05-2019 Lipase [Catalytic activity/Vol] 32 U/L 13 - 60 U/L [place] Metabolic Panelon 02-05-2019 GFR/1.73 sq M predicted among non-blacks MDRD (S/P/Bld) [Vol rate/Area] [place] Comment on above: Average GFR for 40-4 9 years old: 99 mL/min/1.73sq m Chronic Kidney Disease: <60 mL/min/1.73sq m Kidney failure: <15 mL/min/1.73sq m eGFR calculated using average adult body mass. Additional eGFR calculator available at: http://www.OrderGroove/multiple_crcl_2012.htm Stage 1: Some kidney damage normal GFR [...] 81 mm[Hg] PHYSICIAN NO [facility] 10-11-2022 15:03-0400 Heart rate 75 /min PHYSICIAN NO [facility] 10-11-2022 15:03-0400 Respiratory rate 20 /min PHYSICIAN NO [facility] 10-11-2022 15:03-0400 SaO2% (BldA) [Mass fraction] 97 % PHYSICIAN NO [facility] 10-11-2022 15:03-0400 Systolic blood pressure 146 mm[Hg] PHYSICIAN NO [facility] 10-11-2022 12:17-0400 Body temperature 98.3 [degF] PHYSICIAN NO [facility] 10-11-2022 12:12-0400 Body height 175.26 cm PHYSICIAN NO [facility] 10-11-2022 12:12-0400 Body weight 128.6 kg PHYSICIAN NO [facility] 08-18-2022 12:04-0400 Body temperature 97.9 [degF] PHYSICIAN NO [facility] 08-18-2022 11:58-0400 Body height 177.8 cm PHYSICIAN NO [facility] 08-18-2022 11:58-0400 Body weight 129.36 kg PHYSICIAN NO [facility] 08-18-2022 11:58-0400 Diastolic blood pressure 115 mm[Hg] PHYSICIAN NO [facility] 08-18-2022 11:58-0400 Heart rate 107 /min PHYSICIAN NO [facility] 08-18-2022 11:58-0400 Respiratory rate 20 /min PHYSICIAN NO [facility] 08-18-2022 11:58-0400 SaO2% (BldA) [Mass fraction] 97 % PHYSICIAN NO [facility] 08-18-2022 11:58-0400 Systolic blood pressure 159 mm[Hg] PHYSICIAN NO [facility] 12-19-2021 18:32-0400 Body temperature 98.1 [degF] PHYSICIAN NO [facility] 12-19-2021 18:32-0400 Diastolic blood pressure 105 mm[Hg] PHYSICIAN NO [facility] 12-19-2021 18:32-0400 Heart rate 106 /min PHYSICIAN NO [facility] 12-19-2021 18:32-0400 Respiratory rate 20 /min PHYSICIAN NO [facility] 12-19-2021 18:32-0400 SaO2% (BldA) [Mass fraction] 96 % PHYSICIAN NO [facility] 12-19-2021 18:32-0400 Systolic blood pressure 153 mm[Hg] PHYSICIAN NO [facility] 12-19-2021 17:44-0400 Body height 177.8 cm PHYSICIAN NO [facility] 12-19-2021 17:44-0400 Body weight 134.55 kg PHYSICIAN NO [facility] 12-17-2021 09:40-0400 Body height 177.8 cm PHYSICIAN NO [facility] 12-17-2021 09:40-0400 Body temperature 98.1 [degF] PHYSICIAN NO [facility] 12-17-2021 09:40-0400 Body weight 134 kg PHYSICIAN NO [facility] 12-17-2021 09:40-0400 Diastolic blood pressure 108 mm[Hg] PHYSICIAN NO [facility] 12-17-2021 09:40-0400 Heart rate 114 /min PHYSICIAN NO [facility] 12-17-2021 09:40-0400 Respiratory rate 20 /min PHYSICIAN NO [facility] 12-17-2021 09:40-0400 SaO2% (BldA) [Mass fraction] 98 % PHYSICIAN NO [facility] 12-17-2021 09:40-0400 Systolic blood pressure 171 mm[Hg] PHYSICIAN NO [facility] 12-02-2021 14:50-0400 Body height 177.8 cm PHYSICIAN NO [facility] 12-02-2021 14:50-0400 Body temperature 98.6 [degF] PHYSICIAN NO [facility] 12-02-2021 14:50-0400 Body weight 133.2 kg PHYSICIAN NO [facility] 12-02-2021 14:50-0400 Diastolic blood pressure 102 mm[Hg] PHYSICIAN NO [facility] 12-02-2021 14:50-0400 Heart rate 117 /min PHYSICIAN NO [facility] 12-02-2021 14:50-0400 Respiratory rate 18 /min PHYSICIAN NO [facility] 12-02-2021 14:50-0400 SaO2% (BldA) [Mass fraction] 98 % PHYSICIAN NO [facility] 12-02-2021 14:50-0400 Systolic blood pressure 174 mm[Hg] PHYSICIAN NO [facility] 06-08-2021 14:28-0400 Heart rate 117 /min Fatoumata Tillman CNP Work Phone: [facility] 06-08-2021 14:28-0400 SaO2% (BldA) [Mass fraction] 95 % Fatoumata Tillman CNP Work Phone: [facility] 06-08-2021 14:22-0400 Body height 177.8 cm Fatoumata Tillman CNP Work Phone: [facility] 06-08-2021 14:22-0400 Body mass index (BMI) [Ratio] 44.77 kg/m2 Fatoumata Tillman CNP Work Phone: [facility] 06-08-2021 14:22-0400 Body temperature 98.1 [degF] Fatoumata Sanchez APRN - PRIMARY CLINICIAN Work Phone: [facility] 06-08-2021 14:22-0400 Body weight 141.52 kg Fatoumata Sanchez GREASE BUFFER - PRIMARY CLINICIAN Work Phone: [facility] 06-08-2021 14:22-0400 Diastolic blood pressure 120 mm[Hg] Fatoumata Sanchez GREASE BUFFER - PRIMARY CLINICIAN Work Phone: [facility] 06-08-2021 14:22-0400 Respiratory rate 18 /min Fatoumata Sanchez GREASE BUFFER - PRIMARY CLINICIAN Work Phone: [facility] 06-08-2021 14:22-0400 Systolic blood pressure 170 mm[Hg] Fatoumata Sanchez GREASE BUFFER - PRIMARY CLINICIAN Work Phone: [facility] 03-19-2020 23:45-0500 BP Diastolic 101 mm[Hg] [facility] [place] 03-19-2020 23:45-0500 BP Systolic 148 mm[Hg] [facility] [place] 03-19-2020 23:45-0500 Pulse (Heart Rate) 117 /min [facility] 03-19-2020 23:45-0500 Pulse Oximetry 94 % [facility] [place] 03-19-2020 23:45-0500 Respiratory Rate 23 /min [facility] [place] 03-19-2020 19:57-0500 Body Temperature 99.9 [degF] [facility] [place] 03-19-2020 17:38-0500 BMI (Body Mass Index) 45.92 kg/m2 [facility] 03-19-2020 17:38-0500 Body weight 145.15 kg [facility] [place] 03-19-2020 17:38-0500 Height 177.8 cm [facility] [place] 10-21-2019 17:46-0400 BP Diastolic 103 mm[Hg] [facility] [place] 10-21-2019 17:46-0400 BP Systolic 163 mm[Hg] [facility] [place] 10-21-2019 17:37-0400 Pulse (Heart Rate) 109 /min [place] 10-21-2019 17:37-0400 Respiratory Rate 18 /min [place] 10-21-2019 16:02-0400 BMI (Body Mass Index) 44.3 kg/m2 [place] 10-21-2019 16:02-0400 Body Temperature 97 [degF] [place] 10-21-2019 16:02-0400 Body weight 136.08 kg [place] 10-21-2019 16:02-0400 Pulse Oximetry 96 % [place] 02-07-2019 08:18-0500 Body Temperature 97.7 [degF] Dat Jacquelyn [place] 02-07-2019 08:18-0500 BP Diastolic 102 mm[Hg] [place] 02-07-2019 08:18-0500 BP Systolic 132 mm[Hg] [place] 02-07-2019 08:18-0500 Pulse (Heart Rate) 76 /min [place] 02-07-2019 08:18-0500 Pulse Oximetry 96 % [place] 02-07-2019 08:18-0500 Respiratory Rate 16 /min [place] 02-07-2019 04:51-0500 BMI (Body Mass Index) 42.06 kg/m2 Dat [place] 02-07-2019 04:51-0500 Body weight 129.18 kg Dat [place] 02-06-2019 08:10-0500 Height 175.3 cm [place] Encounters Encounter Date Encounter Type Care Provider Facility Start: 02-27-2024 End: 02-27-2024 Emergency department patient visit Med Koenig Facility:[facility] Start: 02-26-2024 End: 02-26-2024 ambulatory Yana Navas RN [facility] Start: 02-15-2024 End: 02-15-2024 Emergency department patient visit Jenelle Judge Facility:[facility] Start: 07-04-2023 End: 07-04-2023 Emergency department patient visit [facility] Start: 11-17-2022 End: 11-17-2022 ambulatory [facility] Start: 10-31-2022 End: 10-31-2022 ambulatory [facility] Start: 10-11-2022 End: 10-11-2022 Emergency department patient visit PHYSICIAN NO [facility] Work Phone: Start: 08-18-2022 End: 08-18-2022 Emergency department patient visit PHYSICIAN NO [facility] Work Phone: Start: 05-15-2022 End: 05-16-[address] NONE LISTED REQUEST Facility:[facility] Start: 05-11-2022 End: 05-11-[address] NONE LISTED REQUEST Facility:[facility] Start: 01-21-2022 End: 01-21-2022 ambulatory PHYSICIAN NO [facility] Work Phone: Start: 01-21-2022 End: 01-21-2022 Discharged Recurring PHYSICIAN NO [facility] [address] Start: 12-19-2021 End: 12-19-2021 Emergency department patient visit PHYSICIAN NO [facility] Start: 12-17-2021 End: 12-17-2021 Emergency department patient visit PHYSICIAN NO [facility] Start: 12-02-2021 End: 12-02-2021 Emergency department patient visit PHYSICIAN NO [facility] Start: 06-08-2021 End: 06-08-2021 Emergency department patient visit Fatoumata Sanchez APRN - PRIMARY CLINICIAN Work Phone: [facility] Comment on above: Enteritis (Primary D x) Start: 03-19-2020 End: 03-20-2020 Emergency department patient visit [facility] Comment on above: COVID-19 (Primary Dx ) Start: 10-21-2019 End: 10-21-2019 Emergency department patient visit [facility] Comment on above: Left Achilles tendin itis (Primary Dx) Start: 02-05-2019 End: 02-07-2019 Evaluation and management of inpatient Dat Jean Baptiste Work Phone: [facility] Comment on above: [...] abdomen & pelvis w/contrast material Fatoumata Sanchez GREASE BUFFER - PRIMARY CLINICIAN Work Phone: Start: 06-08-2021 Comprehensive metabo lic panel Fatoumata Sanchez GREASE BUFFER - PRIMARY CLINICIAN Work Phone: Start: 03-19-2020 Ct thorax w/contrast material Arabella Blandon Work Phone: Start: 03-19-2020 COVID-19 [facility] Work Phone: Start: 03-19-2020 Iaadiadoo influenza [facility] Work Phone: Start: 03-19-2020 Assay of [...] Radex ankle complete minimum 3 views [employer] [employer] Work Phone: Start: 02-06-2019 BASIC METABOLIC PANE L W/ REFLEX TO MG FOR LOW K Dat Jean Baptiste Work Phone: Start: 02-06-2019 Blood count complete automated Dat Jean Baptiste Work Phone: Start: 02-06-2019 Urinalysis microscop ic only [facility] Work Phone: Start: 02-06-2019 Urnls dip stick/tabl et rgnt auto w/o microscopy [facility] Work Phone: Start: 02-05-2019 Cul bact stool aerob ic isol salmonella&shigell [facility] Work Phone: Start: 02-05-2019 Toxin/antitoxin assa y tissue culture [facility] Work Phone: Start: 02-05-2019 Ct abdomen & pelvis w/contrast material [facility] Work Phone: Start: 02-05-2019 Assay of lactate [facility] Work Phone: Start: 02-05-2019 [facility] lipase [facility] Work Phone: Start: 02-05-2019 Blood count complete automated [facility] Work Phone: Start: 02-05-2019 Comprehensive metabo lic panel [facility] Work Phone: SARS Antigen (LFIA) PHYSICIA N NO FAMILY Plan of Treatment Date Care Activity Detail Author Start: 02-01-2024 Adult BMI Screening Adult BMI Screen ing [facility] Start: 02-01-2024 Depression Screening Depression Scre ening [facility] Start: 02-01-2024 Tobacco Screening Tobacco Screening [facility] Start: 11-12-2023 Influenza vaccination Influenza Vacc ine [facility] Start: 2023 Screening for malign ant neoplasm of colon Colonoscopy [facility] Start: 06-08-2022 Creatinine measurement Creatinine mo nitmaryam [facility] Start: 06-08-2022 Potassium monitoring Potassium monit [facility] Start: 03-19-2021 Creatinine measurement Creatinine mo [place] Start: 03-19-2021 Potassium monitoring Potassium monit [place] Start: 11-11-2020 Influenza vaccination Flu vaccine (# 1) [facility] Start: 02-07-2020 Creatinine measurement Creatinine mo [place] Start: 02-07-2020 Potassium monitoring Pot[place] monit [place] Start: 11-12-2019 Influenza vaccination Flu vaccine (# 1) [place] Start: 06-28-2019 Creatinine monitoring Creatinine mon itoring [place] Start: 06-28-2019 Potassium monitoring Potassium monit [place] Start: 11-11-2018 Influenza vaccination Flu vaccine (# 1) [place] Start: 2018 Diabetes screen Diabetes screen [place] Start: 2018 Lipid panel Lipid screen [facility] Start: 2018 Lipid screen Lipid screen [place] Start: 2013 Diabetes screen Diabetes screen [facility] Start: 1997 DTaP,Tdap and Td Vaccines (1 - Tdap) DTaP,Tdap and Td Vaccines (1 - Tdap) [facility] Start: 1997 DTaP/Tdap/Td vaccine (1 - Tdap) DTaP/Tdap/Td vaccine (1 - Tdap) [facility] Start: 1993 HIV screen HIV screen [place] Start: 1993 HIV screening HIV screen [facility] Start: 1990 Depression Screen Depression Screen [facility] Start: 1989 DTaP/Tdap/Td vaccine (1 - Tdap) DTaP/Tdap/Td vaccine (1 - Tdap) [place] Start: 1983 COVID-19 Vaccine (1) COVID-19 Vaccin e (1) [facility] Start: 1978 Hepatitis C screening Hepatitis C sc reen [facility] End: 03-19-2020 Culture, Blood 1 Culture, Blood 1 Microbiology STAT One Time for 1 Occurrences starting 03/19/2020 until 03/19/2020 [facility] Comment on above: One Time for 1 Occur rences starting 03/19/2020 until 03/19/2020 Culture, Blood 1 Culture, Blood 1 Microbiology STAT 03/19/2020 6:00 PM [facility] 12 Lead EKG 12 Lead ECG STAT 03/19/2020 5[facility] O[facility] Ther apy Protocol Initiate Oxygen Therapy Protocol Respiratory Care Routine Daily until discontinued starting 02/05/2019 [facility] Comment on above: Daily until disconti nued starting 02/05/2019 Nasal Cannula Oxygen Nasal [facility] STAT Daily until discontinued [facility]19[facility] Comment on above: Daily until disconti nued starting 03/19/2020 Patient Education [facility] Work Phone: Patient referral [facility] Work Phone: End: 02-05-2019 Pulse Oximetry Spot Check Pulse Oximetry Spot Check Respiratory Care Routine One Time for 1 Occurrences starting 02/05/2019 until 02/05/2019 [facility] Comment on above: One Time for 1 Occur rences starting 02/05/2019 until 02/05/2019 End: 06-08-2021 Urinalysis with Microscopic Urinalysis with Microscopic Lab STAT One Time for 1 Occurrences starting 06/08/2021 until 06/08/2021 [facility] Work Phone: Comment on above: One Time for 1 Occur rences starting 06/08/2021 until 06/08/2021 Payers Date Payer Category Payer Unknown [id number] 2022 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 [employer] [id number] 1980 Unknown [id number] 1978 Unknown [id number] 1959 Self-pay 1959 Worker's Compensation [id number] Unknown [id number] Unknown [id number] Social History Date Type Detail Facility Start: 10-21-2019 End: 10-04-2022 Tobacco smoking status NHIS Former smoker [place] Start: 10-21-2019 End: 10-04-2022 Tobacco use and exposure Never used [place] Start: 10-21-2019 End: 06-08-2021 Alcohol intake Current non-drinker of alcohol (finding) [place] Start: 1980 Sex Assigned At Not on file M [place] Start: 05-29-2021 End: 06-08-2021 Exposure to SARS-CoV-2 (event) Not sure [place] Start: 12-02-2021 End: 12-19-2021 Tobacco smoking status NVIS Never smoked tobacco (finding) [facility] Start: 1980 Sex Assigned At Male F [facility] End: 09-06-2022 History of tobacco use Current smoker [facility] End: 09-06-2022 History of tobacco use Cigarette Smoker [facility] Start: 01-31-2023 Alcoholic beverage intake Current drinker of alcohol (finding) [facility] Start: 01-31-2023 History of Social function [facility] Start: 01-31-2023 Tobacco use panel [facility] Adolescent depressio n screening assessment 2 [facility] Start: 10-04-2022 Alcohol Comment Social [facility] Start: 09-22-2022 Sex Male (finding) [facility] Clinical Notes 06-08-2021 to 02-26-2024 Telephone Encounter - Yana Navas RN - 02/26/2024 7:12 AM ESTTelephone Encounter - Yana Navas RN - 02/26/2024 7:12 AM ESTInstructionsAttachments Note Date & Type Note Facility 02-26-2024 Miscellaneous Notes ----- Message from Livia sent at 02/26/2024 7:11 AM EST ----- Contract: Mireya Chino started taking Gabapentin 600 mg last night and this morning he feels dizzy and disoriented with heavy breathing Contract: 198 Patient's girlfriend calling the after hours this morning- she voices that Emmanuel started taking Gabapentin (600 mg) last night This morning Henrik is extremely disoriented and very dizzy- he is having difficulty walking Caller reports that it took Hnerik over 3 minutes just to walk to the bathroom this morning Heavy Breathing and SOB Denies one sided weakness/numbness/tingling Advised caller to call 911 to have EMS evaluate patient Caller voiced understanding and agreed Reason for Disposition Difficult to awaken or acting confused (e.g., disoriented, slurred speech) Protocols used: Breathing Klqoejblrs-H-SF documented in this encounter [facility] 02-26-2024 Telephone encounter Note ----- Message from Livia sent at 02/26/2024 7:11 AM EST ----- Contract: Mireya Chino started taking Gabapentin 600 mg last night and this morning he feels dizzy and disoriented with heavy breathing [facility] 02-26-2024 Telephone encounter Note Contract: 198 Patient's [...] (e.g., disoriented, slurred speech) Protocols used: Breathing Zjvtjpshoe-C-PF [facility] 02-01-2023 Note This report has been cancelled. [facility] 02-01-2023 Note This report has been cancelled. [facility] 11-17-2022 Note Cardiovascular Labor atory Report [...] week Follow-up with [place] [facility] in the [facility] in the next 2 to [...] left radial artery was obtained. A 6 Malagasy glide sheath was inserted without difficulty. Bilateral [...] INDICATIONS: Abnormal stress test, reduced ejection fraction [facility] 11-17-2022 Note Patient: Henrik stark Procedure Information Date/Time: 11/17/22 1030 Procedure: Coronary angiography (Bilateral) Location: [facility] / [facility] VASCULAR LAB (Cath) Providers: Rafat Garcia MD [...] consented to blood products. Additional Equipment Requests [facility] 10-31-2022 Note [facility] Note Chief Complaint: Patient here for follow up [facility] for chest pain. He was seen [...] the above Rafat Garcia MD, MPH, FACC, [facility], [facility] Interventional Cardiology Pager Email: [email or web address] 06-08-2021 Hospital Discharg e Fatoumata Marquez, GREASE BUFFER - PRIMARY CLINICIAN - 06/08/2021 Increase your fluid intake. Take Bentyl as prescribed. Follow-up with PCP for reevaluation in the next couple of days. Avoid dairy, spicy and fatty foods for the next week. Return here for increased pain, fever, difficulty breathing, vomiting or new or worsening signs or symptoms. The following attachments cannot be sent through Care Everywhere.Gastroenteritis (British)documented in this encounter [employer] Phone: Evaluation note Diagnosis Enteritis- Primary Other and unspecified noninfectious gastroenteritis and colitis documented in this encounter [employer] Phone: evaluation noteNo assessment information available [facility] Work Phone: Hospital Discharge instructions Additional Instructions Rest ice elevate Use the wrist splint for comfort Take ibuprofen every 6 hours for discomfort Follow-up with either [facility]up with [facility] especially if not getting better [facility] Work Phone: Hospital Discharge instructions Additional Instructions Return for new or worsening symptoms Follow-up with family doctor and [facility] Work Phone: Hospital Discharge instructions Additional Instructions Please return to emergency department for any new or worrisome symptoms including any weakness, numbness, headache, vision changes. Follow-up with your family physician as soon as possible.[facility] Work Phone: InstructionsNot on filedocumented in this encounter [facility] Discharge Instructions * Attachments The following attachments cannot be sent through Care Everywhere. * Tendon Injury (Tendinopathy) (British) documented in this encounter* Instructions* Lobito Sidhu [...] Everywhere. * Coronavirus Disease (COVID-19): General Info (British) * Coronavirus Disease (COVID-19): Isolation (British) documented in this encounter* Instructions* Bambi Segal [...] Where can you learn more? Go to [email or web address] and sign in to your [employer] account. Enter M933 in the Search Health Information box to learn more about Learning About Ileus. If you do not have an account, please click on the Sign Up Now link. Current as of: January 17, 2018 Content Version: [id number] [employer]. Care instructions adapted under license by [employer]. If youhave questions about a medical condition or this instruction, always ask your healthcare professional. [employer] disclaims any warranty or liability for your use of this information. 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 Advance Directives and Living Will Power of Tool Operator Latest Code Status on File Code Status Date Activated Date Inactivated Comments Full Code 02/05/2019 9:40 PM 02/07/2019 3:36 PM Full Code 06/22/2016 5:58 AM 06/22/2016 7:53 PM Documents on File Type Date Recorded 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 Internal Medicine Discharge Summary Patient ID: Henrik Cavanaugh [id number] Admission date: 02/05/2019 Discharge date: 02/07/2019 [...] no PCP but will be [facility] Discharge Exam: GEN: Awake, alert and oriented [...] Discharge Medications: Henrik Cavanaugh Home Medication Instructions [id number] Printed on:02/07/19 1147 Medication Information amLODIPine (NORVASC) 5 MG tablet Take 1 tablet by mouth daily Patient Instructions: Activity: activity as tolerated Diet: regular diet Wound Care: none needed [facility] 1[facility]2 weeks CORE MEASURES on Discharge (if applicable) DORCAS/ARB in CHF: N/A ASA in CO: N/A Statin in CO: N/A Statin in CVA: N/A Antiplatelet in CVA: N/A Total time spent on discharge services: 25 minutes Including the following activities: Evaluation and Management of patient Discussion with patient and/or surrogate about current care plan Coordination with Case Management and/or Archivist Economic History Coordination of care with Consultants (if applicable) Coordination of care with Receiving Facility Physician (if applicable) Completion of DME forms (if applicable) Preparation of Discharge Summary Preparation of Medication Reconciliation Preparation of Discharge Prescriptions Signed: Tal Gonzalez M.D. 02/07/2019 11:47 AM documented in this encounter History of Present Illness * Bambi Segal, GILDARDO - 02/07/2019 1:33 PM EST Discharge instructions [...] need to pain medications at this time. Megan Cheng RN - 02/06/2019 1:56 PM EST Spoke [...] of care. To: __Dr. Jean Baptiste From: [facility] Sender:_KSchwochowRN Phone Number:_[phone] This request is: Urgent - No Information [...] this fax. Thank you. Signature Date Time Jamir Deluca MSW, ONLINE PROGRAM COORDINATOR - 02/06/2019 10:51 AM EST Social Work intial Assessment/Discharge Plan Diagnosis: Abdominal pain with Lleus Met with: Patient PCP: None. [facility] Payment Source: Private. No insurance. Advance Directives: None Code Status: Full Mental Status: Alert and oriented Living Arrangement: Patient lives at home in [place] with a roommate Support Systems: Roommate and [...] Needs/Discharge Plan: Patient will return home to [place] where he resides with a roommate. He states that he is able to support himself through employment. This patient does not anticipate any needs at this point. * Rancho Nguyen, RD, LD - 02/06/2019 8:10 AM EST [...] 5. Fluid Accumulation-No significant fluid accumulation, 6. It Applications Analyst Strength-Not measured Nutrition Risk Level: Moderate Nutrient Needs: Estimated Daily Total Kcal: 7670-7173(12-17) Estimated Daily Protein (g): 95-109(1.3-1.5) Estimated Daily [...] Weight Change: , 2% loss from 290# [place] Body Wt: 160 lb (72.6 kg), % [place] Body 178% BMI Classification: BMI > or [...] Patient/Family Education, Monitor Bowel Function Contact Number: [id number] Marija Horta RN - 02/06/2019 4:31 AM [...] oriented to room, pr watching tv when public service administrator left room documented in this encounter Chief [...] NO FAMILY Primary Care Provider Active VIOLETTE SerratoP- Emergency Provider Active Team Status: Inactive Member [...] Inactive Member Role Status Dates Isabel Rodas SENIOR MARKET INTELLIGENCE CONSULTANT-C Primary Care Provider Active Socorro Osullivan MD Emergency Provider Active Resaw Feeder Relationship Specialty Start Date End Date Isabel Rodas APRN-PRIMARY CLINICIAN [address] [place] [address] PCP - General Family Medicine 10/04/22 Goals [...] and content) DATE CREATED AUTHOR 05/17/2022 [facility] DATE CREATED AUTHOR AUTHOR'S ORGANIZ ATION 03/04/2023 [facility] DATE CREATED AUTHOR AUTHOR'S ORGANIZ ATION 07/06/2023 [facility] DATE CREATED AUTHOR AUTHOR'S ORGANIZ ATION 03/09/2024 [facility] ysician Group FOR RECORDS PERTAINING TO PATIENTS [...] BE BASED ON THE PRIMARY CLINICAL RECORDS. [facility] [employer] [facility]. provides no warranty or guarantee of the accuracy or completeness of information in this document.
--- NOTE | 2024-03-14 15:55 | XR_ITS ---
The [address] [address] Patient Name: LAWSON LOPEZ MRN: [id number] date: 1980 Sex: M Assigned Patient Location: ER Current Patient Location: ED.MAIN Accession/Order Number: [id number] Exam Date: 03/14/2024 16:00 Report Date: 03/14/2024 20:33 At the request of: GARRETT MURILLO Procedure: XR knee RT 4V EXAM: XR knee RT 4V HISTORY: fall COMPARISON: None. TECHNIQUE: 4 view right knee FINDINGS: No acute fracture, subluxation or dislocation. Well-preserved joint spaces. Small incidental joint effusion on the crosstable lateral view without obvious fluid layering. Normal bone mineralization. No osseous lesions. Normal soft tissues. XR/XR knee RT 4V IMPRESSION: 1. Small reactive joint effusion. 2. No acute fracture. Electronically authenticated by: MULUGETA COLORADO Date: 03/14/2024 20:33
--- NOTE | 2024-03-14 16:26 | ED_ITS ---
HPI HPI - Extremity Injury (Lower) General Chief Complaint: Extremity Injury, Lower Stated Complaint: lower extremity pain Time Seen by Provider: 03/14/24 15:55 Source: patient Mode of arrival: walk-in History of Present Illness HPI Narrative: Patient is a 44-year-old male who presents to the emergency department for an injury to the right knee that occurred yesterday, he states he fell backward and felt a pop in the posterior right knee. He is concerned he may have torn something. He had an ACL repair to the opposite knee previously. He denies any direct injury to the knee. No other associated injuries. No medications taken prior to arrival. Related Data Previous Rx's ?Medication ?Instructions ?Recorded amlodipine 10 mg tablet 10 mg PO DAILY #30 tabs 09/06/22 aspirin 81 mg chewable tablet 81 mg PO DAILY #30 tabs 09/06/22 atorvastatin 40 mg tablet (Lipitor) 40 mg PO DAILY #30 tabs 09/06/22 metoprolol tartrate 50 mg tablet 25 mg (1/2 x 50 mg) PO BID #30 tabs 09/06/22 (Lopressor) meclizine 25 mg tablet 25 mg PO TID PRN dizziness #7 tabs 02/26/24 diazepam 2 mg tablet (Valium) 1 mg (1/2 x 2 mg) PO BID PRN 03/01/24 Nausea and vomiting, vertigo #4 tabs prochlorperazine maleate 10 mg 10 mg PO Q12H PRN nausea and 03/01/24 tablet (Compazine) vomiting, headache 7 days #7 tabs hydrocodone 5 mg-acetaminophen 325 1 tab PO Q6H PRN pain 3 days #12 03/14/24 mg tablet tabs methocarbamol 750 mg tablet 750 mg PO TID PRN pain #20 tabs 03/14/24 methylprednisolone 4 mg tablets in See Rx Instructions .Route 03/14/24 a dose pack (Medrol (Brian)) .COMPLEX #21 ea Allergies Allergy/AdvReac Type Severity Reaction Status Date / Time amoxicillin AdvReac Vomiting Verified 03/14/24 15:36 prednisone AdvReac Shakiness Verified 03/14/24 15:36 Opioid HPI Opioid Management Most Recent Pain and Opioid Data: Last Pain Scale 6 02/12/24 22:55 02/12/24 Review of Systems ROS Constitutional Denies: fever or chills Ears, nose, mouth, and throat Denies: throat pain or nasal congestion Cardiovascular Denies: chest pain Respiratory Denies: shortness of breath Gastrointestinal Denies: nausea or vomiting Musculoskeletal Reports: extremity pain, extremity swelling, joint pain and limited range of motion; Denies: back pain or neck pain Integumentary/Breast Denies: rash Neurological Denies: numbness in extremities or weakness in extremities Hematologic/Lymphatic Denies: easy bruising or easy bleeding PFSH PFS Medical History (Updated 03/14/24 @ 16:24 by JOHANNY Carvajal) Syncope and collapse ?R55 - Syncope and collapse (ICD-10) Tobacco abuse ?Z72.0 - Tobacco use (ICD-10) Dyslipidemia ?E78.5 - Hyperlipidemia, unspecified (ICD-10) HTN (hypertension) ?I10 - Essential (primary) hypertension (ICD-10) Social History Smoking status: Former smoker Non-prescribed substance use: former substance user Non-prescribed substance use details: cocaine Little interest or pleasure in doing things: not at all Feeling down, depressed, or hopeless: not at all Exam Narrative Exam Narrative: I just Gen.: Awake, alert, in no distress Head: Normocephalic, atraumatic ENT: Moist mucous membranes Respiratory: No respiratory distress Extremities: Tenderness and swelling noted over the right anterior knee, diffusely tender to palpation over the posterior and medial aspect of the right knee with no tibial tenderness or right ankle tenderness. Joint effusion noted anteriorly. No laxity of the patella. Pain with flexion and extension. Psych: Normal mood and affect Neuro: No focal neuro deficit Skin: Warm, dry, intact Constitutional Vital Signs, click to edit/add: Last Vital Signs Temp 98.7 F 03/14/24 15:32 Pulse 104 H 03/14/24 15:32 Resp 16 03/14/24 15:32 BP 160/101 H 03/14/24 15:32 Pulse Ox 97 03/14/24 15:32 O2 Del Method Room Air 03/14/24 15:32 Course Vital Signs Vital signs: Vital Signs Temperature 98.7 F 03/14/24 15:32 Pulse Rate 104 H 03/14/24 15:32 Respiratory Rate 16 03/14/24 15:32 Blood Pressure 160/101 H 03/14/24 15:32 Pulse Oximetry 97 03/14/24 15:32 Oxygen Delivery Method Room Air 03/14/24 15:32 Temperature 98.7 F 03/14/24 15:32 Pulse Rate 104 H 03/14/24 15:32 Respiratory Rate 16 03/14/24 15:32 Blood Pressure 160/101 H 03/14/24 15:32 Pulse Oximetry 97 03/14/24 15:32 Oxygen Delivery Method Room Air 03/14/24 15:32 MDM - Extremity Injury (Lower) MDM Narrative Medical decision making narrative: X-rays with no evidence of fracture or dislocation. He was medicated for pain and placed in an Roshan wrap and knee immobilizer. Suspect soft tissue injury. Rest, ice, elevate. He has crutches at home. Follow-up with orthopedics and return to the ER if symptoms change or worsen. SUPERVISED APC VISIT, PHYSICIAN ATTESTATION: Based on the medical record the care appears appropriate. ? Medical Records Attestation: I reviewed the patient's medical records. Discharge Plan Discharge Chief Complaint: Extremity Injury, Lower Clinical Impression: Pain in right knee, Injury of knee, right Patient Disposition: Home, Self-Care Time of Disposition Decision: 16:24 Condition: Good Prescriptions / Home Meds: New hydrocodone-acetaminophen 5-325 mg tablet 1 tab PO Q6H PRN (Reason: pain) 3 Days Qty: 12 0RF Rx Instructions: M25.561 methocarbamol 750 mg tablet 750 mg PO TID PRN (Reason: pain) Qty: 20 0RF methylprednisolone [Medrol (Brian)] 4 mg tablets,dose pack See Rx Instructions .ROUTE .COMPLEX Qty: 21 0RF Rx Instructions: Taper as directed No Action aspirin 81 mg tablet,chewable 81 mg PO DAILY Qty: 30 0RF amlodipine 10 mg tablet 10 mg PO DAILY Qty: 30 0RF metoprolol tartrate [Lopressor] 50 mg tablet 25 mg PO BID Qty: 30 0RF atorvastatin [Lipitor] 40 mg tablet 40 mg PO DAILY Qty: 30 0RF meclizine 25 mg tablet 25 mg PO TID PRN (Reason: dizziness) Qty: 7 0RF prochlorperazine maleate [Compazine] 10 mg tablet 10 mg PO Q12H PRN (Reason: nausea and vomiting, headache) 7 Days Qty: 7 0RF diazepam [Valium] 2 mg tablet 1 mg PO BID PRN (Reason: Nausea and vomiting, vertigo) Qty: 4 0RF Print Language: Mohawk Instructions: Knee Pain (ED) Referrals: Chandu Matos MD [Physician] - 03/18/24 11:30 am ELIAS DUKES [Primary Care Provider] - 1 week
[2024-03-14] MEDS: KETOROLAC TROMETHAMINE 10 MG TABLET PO (16:44)
== END 2024-03-14 16:59 | disposition home or self-care (01) ==
PROVIDERS: Emergency Provider Emergency Medicine; PCP Nurse Practitioner
DX: S89.91XA Unspecified injury of right lower leg, initial encounter (principal); M25.561 Pain in right knee; Z87.891 Personal history of nicotine dependence; W19.XXXA Unspecified fall, initial encounter
CPT/HCPCS: 73564; 99284

== ENCOUNTER 2024-03-29 06:42 | Outpatient (OUT) | payer OTHER, SELFPAY ==
--- OUTSIDE RECORDS SUMMARY | 2024-03-29 06:46 | XMS_ITS | CCD ---
Author Organization [facility] Care Team Providers Care Nut Sheller Name Role Phone Unavailable Primary Care Provider Unavailabl e Carina Hernandez Primary Care Provider [phone] Unavailable Primary Care Provider Unavailabl e NO FAMILY, PHYSICIAN Primary Care Provider Unava ARSALAN Kamara Emergency Provider Alfie [facility] Jenelle E Emergency Provider [phone] MEENAKSHI Schmidt Emergency Provider [phone] NO FAMILY, PHYSICIAN Primary Care Provider Unava ARSALAN Kamara Emergency Provider Alfie [facility] Jenelle Emergency Provider MEENAKSHI Schmidt Emergency Provider REQUEST, NONE LISTED Primary Care Unavaila ble KIM, KATE Admitting Unavailable KIM, KATE Attending Unavailable KATE ALVAREZ Consulting Unavailable AMAN [...] Translations: [AMOXICILLIN] Drug Allergy 6 Unknown Reaction [place], [place] (6 sources) fentaNYL; Translations: [FENTANYL] Drug Allergy 9 [place] (11 sources) predniSONE; Translations: [PREDNISONE] Drug Allergy 6 Other (See Comments) [place], [place] (1 source) Amoxicillin Drug Allergy [address] [facility] Repository (1 source) predniSONE Drug Allergy [address] [facility] Repository (1 source) amLODIPine; Translations: [AMLODIPINE] Drug Allergy 3 [facility] Repository (1 source) Amoxicillin Drug Allergy 4 [facility] Repository (1 source) predniSONE Drug Allergy 4 [facility] Medications Current Medications Medication Drug [...] gap [Moles/Vol] 12.9 mmol/L Normal 6.0-15.0 [facility] Comment on above: Performed By: #### C BC, BMP, PTT, PT, HS TROP #### [facility] [address] Calcium [Mass/Vol] 9.2 mg/dL Normal 8.6-10.3 The [facility] Comment on above: Performed By: #### C BC, BMP, PTT, PT, HS TROP #### [facility] [address] Chloride [Moles/Vol] 103 mmol/L Normal 98-107 [facility] Comment on above: Performed By: #### C BC, BMP, PTT, PT, HS TROP #### [address] CO2 [Moles/Vol] 26.4 mmol/L Normal 21.0-31.0 The [facility] Comment on above: Performed By: #### C BC, BMP, PTT, PT, HS TROP #### [facility] [address] [place] [address] [place] Creatinine [Mass/Vol] 0.89 mg/dL Normal 0.70-1.30 [facility] Comment on above: Performed By: #### C BC, BMP, PTT, PT, HS TROP #### [place] [address] [place] Creatinine Clr Calc Pharmacy 140.18 Normal [facility] Comment on above: Result Comment: PERF ORMED BY: [place] [address] PATHOLOGIST SYSTEM OPERATOR FRANK ARAUJO M.D. Performed By: #### C BC, BMP, PTT, PT, HS TROP #### [place] [address] [place] GFR/1.73 sq M.predicted MDRD (S/P/Bld) [Vol rate/Area] mL/min/{1.73_m2} Normal [facility] Comment on above: Performed By: #### C BC, BMP, PTT, PT, HS TROP #### [facility] [address] [place] [address] [place] Glucose [Mass/Vol] 108 mg/dL High 70-100 The [facility] Comment on above: Result Comment: [facility] Glucose Reference Range is dependent on time and content of last meal. Glucose of more than 200 mg/dL in a nonstressed, ambulatory subject supports the diagnosis of Diabetes Mellitus. ADA recommended reference range Performed By: #### C BC, BMP, PTT, PT, HS TROP #### [facility] [address] [place] [id number] [facility] Potassium [Moles/Vol] 4.3 mmol/L Normal 3.5-5.1 [facility] Comment on above: Performed By: #### C BC, BMP, PTT, PT, HS TROP #### [facility] [address] [place] [address] [place] Sodium [Moles/Vol] 138 mmol/L Normal 136-145 [facility] Comment on above: Performed By: #### C BC, BMP, PTT, PT, HS TROP #### [facility] [address] [place] [address] [place] Urea nitrogen [Mass/Vol] 10 mg/dL Normal 7-25 [facility] Comment on above: Performed By: #### C BC, BMP, PTT, PT, HS TROP #### [facility] [address] angio neckon 02-27-2024 CT angio neck [facility] [place] [address] [place] [address] CT Scan Report Signed Patient: Henrik Cavanaugh MR#: [id number] 168 : 1980 Acct:[id number] Age/Sex: 44 / M ADM Date: 02/27/24 Loc: ER Room: Type: [facility] ER Attending Dr: Copies to: Med Koenig DO Ordering Provider: Med Koenig DO Date of Service: 02/27/24 CT/CT head/brain wo con: r/o post circ stroke ([id number]) CT/CT angio neck: r/o post circ stroke ([id number]) CT/CT angio head: r/o post circ stroke [...] patent Posterior cerebral arteries: patent. 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 Intracranial segments of the internal carotid arteries: [...] Anguiano Jr., D.O.02/27/2024 9:42 AM Dictation Location: [place] [address] Transcribed By: [facility] 02/27/24 0942 Dictated By: Wayne Anguiano Jr, DO 02/27/24 0938 Signed By: 02/27/24941 Normal [facility] Complete Blood Count Auto Di ffon 02-27-2024 Basophils (Bld) [#/Vol] 0.1 10*3/uL Normal 0.0-0.2 [facility] Comment on above: Result Comment: PERF ORMED BY: [place] [address] PATHOLOGIST SYSTEM OPERATOR FRANK ARAUJO M.D. Performed By: #### C BC, BMP, PTT, PT, HS TROP #### [address] Basophils/100 WBC (Bld) 1.1 % Normal . [facility] Comment on above: Performed By: #### C BC, BMP, PTT, PT, HS TROP #### [address] Eosinophils (Bld) [#/Vol] 0.2 10*3/uL Normal 0.0-0.45 [facility] Comment on above: Performed By: #### C BC, BMP, PTT, PT, HS TROP #### [address] Eosinophils/100 WBC (Bld) 2.7 % Normal . [facility] Comment on above: Performed By: #### C BC, BMP, PTT, PT, HS TROP #### [address] Erythrocyte distribution width (RBC) [Ratio] 12.9 % Normal 12.0-14.8 [facility] Comment on above: Performed By: #### C BC, BMP, PTT, PT, HS TROP #### [address] Hematocrit (Bld) [Volume fraction] 46.1 % Normal 38.8-50.0 [facility] Comment on above: Performed By: #### C BC, BMP, PTT, PT, HS TROP #### [address] Hemoglobin (Bld) [Mass/Vol] 16.0 g/dL Normal 13.0-17.0 [facility] Comment on above: Performed By: #### C BC, BMP, PTT, PT, HS TROP #### [address] Lymphocytes (Bld) [#/Vol] 1.9 10*3/uL Normal 1.00-4.8 [facility] Comment on above: Performed By: #### C BC, BMP, PTT, PT, HS TROP #### [address] Lymphocytes/100 WBC (Bld) 22.3 % Normal . [facility] Comment on above: Performed By: #### C BC, BMP, PTT, PT, HS TROP #### [address] MCH (RBC) [Entitic mass] 30.7 pg Normal 27.5-35.2 [facility] Comment on above: Performed By: #### C BC, BMP, PTT, PT, HS TROP #### [address] MCV (RBC) [Entitic vol] 88.3 fL Normal 83.5-101 [facility] Comment on above: Performed By: #### C BC, BMP, PTT, PT, HS TROP #### [address] Mean Corpuscular HGB Conc 34.8 g/dL Normal 32.5-35.6 [facility] Comment on above: Performed By: #### C BC, BMP, PTT, PT, HS TROP #### [address] Monocytes (Bld) [#/Vol] 0.7 10*3/uL Normal 0.0-0.8 [facility] Comment on above: Performed By: #### C BC, BMP, PTT, PT, HS TROP #### [place] [address] [place] Monocytes/100 WBC (Bld) 19.04 % Normal 0.00-20.00 [facility] Comment on above: Performed By: #### C BC, BMP, PTT, PT, HS TROP #### [address] Monocytes/100 WBC (Bld) 8.7 % Normal . [facility] Comment on above: Performed By: #### C BC, BMP, PTT, PT, HS TROP #### [place] [address] [place] Neutrophils (Bld) [#/Vol] 5.5 10*3/uL Normal 1.8-7.7 [facility] Comment on above: Performed By: #### C BC, BMP, PTT, PT, HS TROP #### [place] [address] [place] Neutrophils/100 WBC (Bld) 65.2 % Normal . [facility] Comment on above: Performed By: #### C BC, BMP, PTT, PT, HS TROP #### [place] [address] [place] NRBC% 0.2 /100{WBC} Normal 0-0.5 The [facility] Comment on above: Performed By: #### C BC, BMP, PTT, PT, HS TROP #### [place] [address] [place] Platelet mean volume (Bld) [Entitic vol] 8.8 fL Normal 6.6-10.1 The [facility] Comment on above: Performed By: #### C BC, BMP, PTT, PT, HS TROP #### [place] [address] [place] Platelets (Bld) [#/Vol] 230 10*3/uL Normal 150-450 [facility] Comment on above: Performed By: #### C BC, BMP, PTT, PT, HS TROP #### [place] [address] [place] RBC (Bld) [#/Vol] 5.22 10*6/uL Normal 3.90-5.60 [facility] Comment on above: Performed By: #### C BC, BMP, PTT, PT, HS TROP #### [place] [address] [place] WBC (Bld) [#/Vol] 8.5 10*3/uL Normal 4.1-10.5 [facility] Comment on above: Performed By: #### C BC, BMP, PTT, PT, HS TROP #### [place] [id number] [facility] ECG 12 lead ECGon 02-27-2024 ECG 12 lead ECG [facility] [place] [address] [place] [address] Electrocardiograph Report Signed Patient: Henrik Cavanaugh MR#: [id number] 168 : 1980 Acct:[id number] Age/Sex: 44 / M ADM Date: 02/27/24 Loc: ER Room: Type: [facility] ER Attending Dr: Ordering Provider: Med Koenig [...] fascicular block Confirmed by Med Koenig DO ([id number]) on 02/27/2024 3:20:31 PM Referred By: Electronically Signed By: Med Koenig DO Transcribed By: MUS Signed By Med Koenig DO 1520 Normal [facility] Partial Thromboplastin Timeo n 02-27-2024 aPTT Coag (Bld) [Time] 29.9 s Normal 25.1-36.5 [facility] Comment on above: Result Comment: A he matocrit value greater than 55% may lead to inaccurate results in coagulation testing. Patients having hematocrit values >55% require a special collection tube for coagulation studies. Please contact the laboratory at [phone] for redraw instructions. PERFORMED BY: [place] [address] PATHOLOGIST SYSTEM OPERATOR FRANK ARAUJO M.D. Performed By: #### C BC, BMP, PTT, PT, HS TROP #### [address] [place] [address] [facility] Prothrombin Time INRon 02-26 INR Coag (PPP) [Relative time] 0.9 {INR} Normal [facility] Comment on above: Result Comment: [...] BC, BMP, PTT, PT, HS TROP #### [address] PT Coag (PPP) [Time] 10.8 s Normal 9.0-12.9 [facility] Comment on above: Result Comment: A he matocrit value greater than 55% may lead to inaccurate results in coagulation testing. Patients having hematocrit values >55% require a special collection tube for coagulation studies. Please contact the laboratory at [phone] for redraw instructions. Performed By: #### C BC, BMP, PTT, PT, HS TROP #### [place] [id number] [facility] Troponin I High Sensitivityo n 02-27-2024 Troponin I High Sensitivity 12.7 pg/mL Normal 0.0-20.0 [facility] Comment on above: Result Comment: PERF ORMED BY: [place] [address] PATHOLOGIST SYSTEM OPERATOR FRANK ARAUJO M.D. Performed By: #### C BC, BMP, PTT, PT, HS TROP #### [place] [id number] [facility] Urinalysison 02-27-2024 Appearance (U) Clear Normal Clear [facility] Comment on above: Order Comment: Name Collection Type:: Clean-Voided Midstream Performed By: #### U A #### [address] Bilirubin,Urine Negative Normal Negative [facility] Comment on above: Order Comment: Name Collection Type:: Clean-Voided Midstream Performed By: #### U A #### [place] [address] [place] Color (U) Light-Yellow Normal Yellow [facility] Comment on above: Order Comment: Name Collection Type:: Clean-Voided Midstream Performed By: #### U A #### [place] [address] [place] Glucose Ql (U) Normal Normal Normal [facility] Comment on above: Order Comment: Name Collection Type:: Clean-Voided Midstream Performed By: #### U A #### [address] Ketones Ql (U) Negative Normal Negative [facility] Comment on above: Order Comment: Name Collection Type:: Clean-Voided Midstream Performed By: #### U A #### [address] Leukocyte esterase Test strip Ql (U) Negative Normal Negative [facility] Comment on above: Order Comment: Name Collection Type:: Clean-Voided Midstream Performed By: #### U A #### [place] [address] [place] Nitrite,Urine Negative Normal Negative [facility] Comment on above: Order Comment: Name Collection Type:: Clean-Voided Midstream Performed By: #### U A #### [place] [address] [place] Occult Blood,Urine Negative Normal Negative [facility] Comment on above: Order Comment: Name Collection Type:: Clean-Voided Midstream Result Comment: PERF ORMED BY: [place] [address] PATHOLOGIST SYSTEM OPERATOR FRANK ARAUJO M.D. Performed By: #### U A #### [place] [address] [place] pH (U) 5.5 [pH] Normal 5.0-9.0 [facility] Comment on above: Order Comment: Name Collection Type:: Clean-Voided Midstream Performed By: #### U A #### [facility] [address] Protein,Urine Negative Normal Negative [facility] Comment on above: Order Comment: Name Collection Type:: Clean-Voided Midstream Performed By: #### U A #### [address] Specificy [place],Urine 1.033 High 1.001-1.030 [facility] Comment on above: Order Comment: Name Collection Type:: Clean-Voided Midstream Performed By: #### U A #### [address] Urobilinogen,Urine Normal Normal Normal [facility] Comment on above: Order Comment: Name Collection Type:: Clean-Voided Midstream Performed By: #### U A #### [address] XR chest 1V portableon 02-26 XR chest 1V portable [facility] [place] [address] [place] [address] XRay Report Signed Patient: Henrik Cavanaugh MR#: [id number] 168 : 1980 Acct:[id number] Age/Sex: 44 / M ADM Date: 02/27/24 [...] Anguiano Jr., D.O.02/27/2024 8:28 AM Dictation Location: [place] [address] Transcribed By: [facility] 02/27/24827 Dictated By: Wayne Anguiano Jr, DO 02/27/2428 Signed By: 02/27/2428 Normal [facility] XR foot RT min 3V*on 024 XR foot RT min 3V* [facility] Main [address] [address] XRay Report Signed Patient: Henrik Cavanaugh MR#: [id number] 168 : 1980 Acct:[id number] Age/Sex: 44 / M ADM Date: 02/15/24 Loc: ER Room: Type: [facility] ER Attending Dr: Copies to: GRISELDA [...] Tejinder Alcantara M.D.02/15/2024 12:47 PM Dictation Location: [place] [address] Transcribed By: [facility] 02/15/24 124 Dictated By: Tejinder Alcantara DO 02/15/24 124 Signed By: 02/15/24 1247 Normal [facility] CBC with Diffon 07-04-2023 Abs. Basophil 0.06 k/uL Normal 0.00-0.20 [facility] Comment on above: Performed By: #### C RAMÓN MELTON, CP #### [facility] [address] [place] [address] Access Tech: Alex Amador MD Abs.Imm.Granulocyte 0.03 k/uL Normal 0.00-0.30 [facility] Comment on above: Performed By: #### C LINH LIP, CP #### [facility] [address] [place] [address] Access Tech: Alex Amador MD Abs.Neutrophil (Seg) 7.00 k/uL Normal 1.50-8.10 [facility] Comment on above: Performed By: #### C LINH LIP, CP #### [address] [place] [address] Access Tech: Alex Amador MD Basophils/100 WBC (Bld) 1 % Normal 0-2 [facility] Comment on above: Performed By: #### C LINH LIP, CP #### [address] [place] [address] Access Tech: Alex Amador MD Eosinophils (Bld) [#/Vol] 0.17 10*3/uL Normal 0.00-0.44 [facility] Comment on above: Performed By: #### C LINH LIP, CP #### [address] [place] [address] Access Tech: Alex Amador MD Eosinophils/100 WBC (Bld) 2 % Normal 1-4 [facility] Comment on above: Performed By: #### C RAMÓN MELTON, CP #### [address] [place], [place] [address] Access Tech: Alex Amador MD Erythrocyte distribution width (RBC) [Ratio] 12.4 % Normal 11.8-14.4 [facility] Comment on above: Performed By: #### C LINH LIP, CP #### [address] [place], [facility]83 Access Tech: Alex Amador MD Hematocrit (Bld) [Volume fraction] 44.6 % Normal 40.7-50.3 [facility] Comment on above: Performed By: #### C DP LIP, CP #### [address] [place], [facility]83 Access Tech: Alex Amador MD Hemoglobin (Bld) [Mass/Vol] 15.5 g/dL Normal 13.0-17.0 [facility] Comment on above: Performed By: #### C DP LIP, CP #### [address] [place], [facility]83 Access Tech: Alex Amador MD Immature granulocytes/100 WBC (Bld) 0 % Normal 0 [facility] Comment on above: Performed By: #### C DP, LIP, CP #### [address] [place], [place] [address] Access Tech: Alex Amador MD Lymphocytes (Bld) [#/Vol] 1.59 10*3/uL Normal 1.10-3.70 [facility] Comment on above: Performed By: #### C DP LIP, CP #### [address] [place] [id number] Access Tech: Alex Amador MD Lymphocytes/100 WBC (Bld) 17 % Low 24-43 [facility] Comment on above: Performed By: #### C LINH LIP, CP #### [address] [place], [place] [address] Access Tech: Alex Amador MD MCH (RBC) [Entitic mass] 30.3 pg Normal 25.2-33.5 [facility] Comment on above: Performed By: #### C LINH LIP, CP #### [address] [place], [facility]83 Access Tech: Alex Amador MD MCHC (RBC) [Mass/Vol] 34.8 g/dL Normal 28.4-34.8 [facility] Comment on above: Performed By: #### C DP LIP, CP #### [address] [place] [address] Access Tech: Alex Amador MD MCV (RBC) [Entitic vol] 87.1 fL Normal 82.6-102.9 [facility] Comment on above: Performed By: #### C DP, LIP, CP #### [facility] [address] [place], [place] [address] Access Tech: Alex Amador MD Monocytes (Bld) [#/Vol] 0.78 10*3/uL Normal 0.10-1.20 [facility] Comment on above: Performed By: #### C DP, LIP, CP #### [facility] [address] [place], [place] [address] Access Tech: Alex Amador MD Monocytes/100 WBC (Bld) 8 % Normal 3-12 [facility] Comment on above: Performed By: #### C DP LIP, CP #### [address] [place], [place] [address] Access Tech: Alex Amador MD Neutrophil (Seg) 72 % High 36-65 [facility] Comment on above: Performed By: #### C DP, LIP, CP #### [address] [place], [place] [address] Access Tech: Alex Amador MD NRBC Automated 0.0 per [address] [facility] Comment on above: Performed By: #### C DP LIP, CP #### [address] [place], [place] [address] Access Tech: Alex Amador MD Platelet mean volume (Bld) [Entitic vol] 10.4 fL Normal 8.1-13.5 [facility] Comment on above: Performed By: #### C DP LIP, CP #### [address] [place], [facility]83 Access Tech: Alex Amador MD Platelets (Bld) [#/Vol] 239 10*3/uL Normal 138-453 [facility] Comment on above: Performed By: #### C DP, LIP, CP #### [facility] [address] [place] [address] Access Tech: Alex Amador MD RBC (Bld) [#/Vol] 5.12 10*6/uL Normal 4.21-5.77 [facility] Comment on above: Performed By: #### C DP, LIP, CP #### [facility] [address] [place], [place] [id number] Access Tech: Alex Amador MD WBC (Bld) [#/Vol] 9.6 10*3/uL Normal 3.5-11.3 [facility] Comment on above: Performed By: #### C DP, LIP, CP #### [facility] [address] [place], [place] [id number] Access Tech: Alex Amador MD Comp Metabolic Profon 2023 Albumin [Mass/Vol] 4.4 g/dL Normal 3.5-5.2 [facility] Comment on above: Performed By: #### C DP, LIP, CP #### [address] [place] [address] Access Tech: Alex Amador MD Albumin/Glob Ratio 1.2 Normal 1.0-2.5 [facility] Comment on above: Performed By: #### C DP, LIP, CP #### [address] [place], [facility]70 ( Access Tech: Alex Amador MD Alkaline Phos 103 U/L Normal 40-129 [facility] Comment on above: Performed By: #### C DP, LIP, CP #### [facility] [address] [place], [place] [id number] Access Tech: Alex Amador MD ALT [Catalytic activity/Vol] 30 U/L Normal 5-41 [facility] Comment on above: Performed By: #### C DP, LIP, CP #### [address] [place], [place] [id number] Access Tech: Alex Amador MD Anion gap [Moles/Vol] 10 mmol/L Normal 9-17 [facility] Comment on above: Performed By: #### C DP LIP, CP #### [facility] [address] [place], [place] [id number] Access Tech: Alex Amador MD AST [Catalytic activity/Vol] 21 U/L Normal <40 [facility] Comment on above: Performed By: #### C DP LIP, CP #### [facility] [address] [place], [place] [id number] Access Tech: Alex Amador MD Bilirubin [Mass/Vol] 0.7 mg/dL Normal 0.3-1.2 [facility] Comment on above: Performed By: #### C LINH LIP, CP #### [facility] [address] [place] [address] [place], [place] [id number] Access Tech: Alex Amador MD BUN/CRE Ratio 13 Normal 9-20 [facility] Comment on above: Performed By: #### C RAMÓN MELTON, CP #### [facility] [address] [place], [place] [id number] Access Tech: Alex Amador MD Calcium [Mass/Vol] 9.1 mg/dL Normal 8.6-10.4 [facility] Comment on above: Performed By: #### C DP LIP, CP #### [facility] [address] [place], [place] [id number] Access Tech: Alex Amador MD Chloride [Moles/Vol] 102 mmol/L Normal 98-107 [facility] Comment on above: Performed By: #### C DP LIP, CP #### [facility] [address] [place], [place] [id number] Access Tech: Alex Amador MD CO2 [Moles/Vol] 27 mmol/L Normal 20-31 [facility] Comment on above: Performed By: #### C RAMÓN MELTON, CP #### [facility] [address] [place] [address] Access Tech: Alex Amador MD Creatinine [Mass/Vol] 0.8 mg/dL Normal 0.7-1.2 [facility] Comment on above: Performed By: #### C RAMÓN MELTON, CP #### [facility] [address] [place] [address] Access Tech: Alex Amador MD GFR/1.73 sq M.predicted among non-blacks MDRD (S/P/Bld) [Vol rate/Area] mL/min/{1.73_m2} Normal >60 [facility] Comment on above: Result Comment: These [...] By: #### C RAMÓN MELTON, CP #### [facility] [address] [place] [address] [place] [address] Access Tech: Alex Amador MD Glucose [Mass/Vol] 97 mg/dL Normal 70-99 [facility] Comment on above: Performed By: #### C RAMÓN MELTON, CP #### [facility] [address] [place] [address] Access Tech: Alex Amador MD Potassium [Moles/Vol] 4.2 mmol/L Normal 3.7-5.3 [facility] Comment on above: Performed By: #### C RAMÓN MELTON, CP #### [facility] [address] [place] [address] Access Tech: Alex Amador MD Protein [Mass/Vol] 8.0 g/dL Normal 6.4-8.3 [facility] Comment on above: Performed By: #### C DP, LIP, CP #### [facility] [address] [place] [address] Access Tech: Alex Amador MD Sodium [Moles/Vol] 139 mmol/L Normal 135-144 [facility] Comment on above: Performed By: #### C DP, LIP, CP #### [facility] [address] [place], [place] [id number] Access Tech: Alex Amador MD Urea nitrogen [Mass/Vol] 10 mg/dL Normal 6-20 [facility] Comment on above: Performed By: #### C DP, LIP, CP #### [facility] [address] [place] [address] Access Tech: Alex Amador MD Lipaseon 07-04-2023 Lipase [Catalytic activity/Vol] 29 U/L Normal 13-60 [facility] Comment on above: Performed By: #### C DP, LIP, CP #### [facility] [address] [place] [address] Access Tech: Alex Amador MD 36on 11-21-2022 36 Patient's [...] cost is very similar. Help! Thanks. Normal [facility] CBCon 11-17-2022 Erythrocyte distribution width (RBC) [Ratio] 12.9 % Normal 11.5-15.0 [facility] Comment on above: Performed By: #### L [id number] ####[facility] (BEAK[facility])[address] [place] [address] ERYTHROCYTE MEAN CORPUSCULAR HEMOGLOBIN CONCENTRATION (G/DL) BY AUTOMATED 34.2 g/dL Normal 32.0-35.0 [facility] Comment on above: Performed By: #### L [id number] ####[facility] ([facility])[address] [place] [address] Hematocrit (Bld) [Volume fraction] 43.6 % Normal 39.0-55.0 [facility] Comment on above: Performed By: #### L [id number] ####[facility] ([facility])[address] [place] [address] Hemoglobin (Bld) [Mass/Vol] 14.9 g/dL Normal 13.0-17.0 [facility] Comment on above: Performed By: #### L [id number] ####[facility] ([facility])[address] [place] [address] MCH (RBC) [Entitic mass] 30.2 pg Normal 27.0-33.0 [facility] Comment on above: Performed By: #### L [id number] ####[facility] ([facility])[address] [place] [address] MCV (RBC) [Entitic vol] 88.4 fL Normal 82.0-98.0 [facility] Comment on above: Performed By: #### L [id number] ####[facility] ([facility])[address] [place] [address] PLATELETS (10*3/UL) IN BLOOD AUTOMATED COUNT 237 10*3/uL Normal 150-400 [facility] Comment on above: Performed By: #### L [id number] ####[facility] ([facility])[address] [place] [address] RBC (Bld) [#/Vol] 4.93 10*6/uL Normal 4.20-5.70 [facility] Comment on above: Performed By: #### L [id number] ####[facility] [place] [address] WBC (Bld) [#/Vol] 10.15 10*3/uL Normal 4.00-10.60 [facility] Comment on above: Performed By: #### L [id number] ####[facility] ([facility]ER)[address] [place] [address] HPon 11-17-2022 HP H&P reviewed. The patient [...] consent was signed prior to the procedure. [facility] HP H&P reviewed. The patient was examined and there are no changes to the H&P. Rafat Garcia MD, MPH, [facility], [facility], [facility] Interventional Cardiology Pager Email: [email or web address] 11-17-2022 NURSNOTE RN educated pt on d/c instructions. RN encouraged pt to voice any questions or concerns. Pt verbalizes no questions or concerns at this time. Pt was wheeled off of unit with all of belongings. [facility] Orders Onlyon 11-09-2022 Orders Only [id number] Henrik Cavanaugh 1980 M Date Provider Department Center 11/09/2022 [facility] Family History Problem Relation Age of Onset Coronary artery disease Mother's Brother Peripheral vascular disease Mother's Brother Family Status - Relation Status Age at Mother's Brother [facility] HPon 10-31-2022 [facility] Clinic Note Chief Complaint: Patient here for follow up [facility] for chest pain. He was seen [...] pending the above Rafat Garcia MD, MPH, [facility], [facility], [facility] Interventional Cardiology Pager Email: [email or web address] [facility] Office Visiton 10-31-2022 Follow-up visit [id number] Henrik Cavanaugh 1980 [facility] Provider Department Center 10/31/2022 Davie-RAFAT GARCIA CINDY Sin Family History Problem Relation Age of Onset Coronary artery disease Mother's Brother Peripheral vascular disease Mother's Brother Family Status - Relation Status Age at Mother's Brother Level of Service:94183 CT OFFICE/OUTPATIENT ESTABLISHED HIGH MDM 40-54 MIN Normal [facility] Orders Onlyon 10-31-2022 Orders Only [id number] Henrik Cavanaugh 1980 [facility] Provider Department Center 10/31/2022 TAE BENÍTEZ CINDY Sin Family History Problem Relation Age of Onset Coronary artery disease Mother's Brother Peripheral vascular disease Mother's Brother Family Status - Relation Status Age at Mother's Brother Normal [facility] Activated partial thrombopla stin time (aPTT) in platelet poor plasma by coagulation aOrdered By: Socorro Osullivan on 10-11-2022 aPTT Coag (PPP) [Time] 27.7 s 25.1-36.5 [facility] Basophils Auto (Bld) [#/Vol] Ordered By: Socorro Osullivan on 10-11-2022 Basophils (Bld) [#/Vol] 0.1 10*3/uL 0.0-0.2 [facility] Basophils/100 WBC Auto (Bld) Ordered By: Socorro Osullivan on 10-11-2022 Basophils/100 WBC (Bld) 0.9 % . [facility] Calcium [Mass/volume] in Ser um or PlasmaOrdered By: Socorro Osullivan on 10-11-2022 Calcium [Mass/Vol] 9.5 mg/dL 8.6-10.3 [facility] Carbon dioxide, total [Moles /volume] in Serum or PlasmaOrdered By: Socorro Osullivan on 10-11-2022 CO2 [Moles/Vol] 29.1 mmol/L 21.0-31.0 [facility] Chloride [Moles/volume] in S josselin or PlasmaOrdered By: Socorro Osullivan on 10-11-2022 Chloride [Moles/Vol] 102 mmol/L 98-107 [facility] Creatine kinase [Enzymatic a ctivity/volume] in Serum or PlasmaOrdered By: Socorro Ousllivan on 10-11-2022 CK [Catalytic activity/Vol] 87 U/L 30-223 [facility] Creatinine [Mass/volume] in Serum or PlasmaOrdered By: Socorro Osullivan on 10-11-2022 Creatinine [Mass/Vol] 0.79 mg/dL 0.70-1.30 [facility] Eosinophils Auto (Bld) [#/Vo l]Ordered By: Socorro Osullivan on 10-11-2022 Eosinophils (Bld) [#/Vol] 0.2 10*3/uL 0.0-0.45 [facility] Eosinophils/100 WBC Auto (Bl d)Ordered By: Socorro Osullivan on 10-11-2022 Eosinophils/100 WBC (Bld) 2.5 % . [facility] Erythrocyte distribution wid th Auto (RBC) [Ratio]Ordered By: Socorro Osullivan on 10-11-2022 Erythrocyte distribution width (RBC) [Ratio] 13.3 % 12.0-14.8 [facility] Glucose [Mass/volume] in Ser um or PlasmaOrdered By: Socorro Osullivan on 10-11-2022 Glucose [Mass/Vol] 90 mg/dL 70-100 [facility] Comment on above: ADA recommended refe rence rangeRandom Glucose Reference Range is dependent on time and content of last meal. Glucose of more than 200 mg/dL in a nonstressed, ambulatory subject supports the diagnosis of Diabetes Mellitus. Hematocrit Auto (Bld) [Volum e fraction]Ordered By: Socorro Osullivan on 10-11-2022 Hematocrit (Bld) [Volume fraction] 40.4 % 38.8-50.0 [facility] Hemoglobin [Mass/volume] in BloodOrdered By: Socorro Osullivan on 10-11-2022 Hemoglobin (Bld) [Mass/Vol] 14.2 g/dL 13.0-17.0 [facility] - CoagulationOrde red By: Socorro Osullivan on 10-11-2022 PT Coag (PPP) [Time] 12.0 s 9.0-12.9 [facility] Leukocytes [#/volume] correc giselle for nucleated erythrocytes in Blood by Automated counOrdered By: Socorro Osullivan on 10-11-2022 WBC corrected for nucl RBC Auto (Bld) [#/Vol] 9.5 10*3/uL 4.1-10.5 [facility] Lymphocytes Auto (Bld) [#/Vo l]Ordered By: Socorro Osullivan on 10-11-2022 Lymphocytes (Bld) [#/Vol] 1.8 10*3/uL 1.00-4.8 [facility] Lymphocytes/100 WBC Auto (Bl d)Ordered By: Socorro Osullivan on 10-11-2022 Lymphocytes/100 WBC (Bld) 18.6 % . [facility] MCH Auto (RBC) [Entitic mass ]Ordered By: Socorro Osullivan on 10-11-2022 MCH (RBC) [Entitic mass] 30.4 pg 27.5-35.2 [facility] MCHC Auto (RBC) [Mass/Vol]Or dered By: Socorro Osullivan on 10-11-2022 MCHC (RBC) [Mass/Vol] 35.1 g/dL 32.5-35.6 [facility] MCV Auto (RBC) [Entitic vol] Ordered By: Socorro Osullivan on 08-01-2023 MCV (RBC) [Entitic vol] 86.6 fL 83.5-101 [facility] Monocyte distribution width [Entitic volume] in Blood by AutomatedOrdered By: Socorro Osullivan on 10-11-2022 Monocyte distribution width Auto (Bld) [Entitic vol] 18.08 % 0.00-20.00 [facility] Monocytes Auto (Bld) [#/Vol] Ordered By: Socorro Osullivan on 10-11-2022 Monocytes (Bld) [#/Vol] 0.7 10*3/uL 0.0-0.8 [facility] Monocytes/100 WBC Auto (Bld) Ordered By: Socorro Osullivan on 10-11-2022 Monocytes/100 WBC (Bld) 7.2 % . [facility] Natriuretic peptide B [Mass/ Vol]Ordered By: Socorro Osullivan on 10-11-2022 Natriuretic peptide B (Bld) [Mass/Vol] 21.0 pg/mL 5-100 [facility] Neutrophils Auto (Bld) [#/Vo l]Ordered By: Socorro Osullivan on 10-11-2022 Neutrophils (Bld) [#/Vol] 6.7 10*3/uL 1.8-7.7 [facility] Neutrophils/100 WBC Auto (Bl d)Ordered By: Socorro Osullivan on 10-11-2022 Neutrophils/100 WBC (Bld) 70.8 % . [facility] No Panel InformationOrdered By: Socorro Osullivan on 10-11-2022 Estimated GFR (CKD-EPI) > 60.0 mL/Min [facility] Creatinine Clearance (Chem 158.41 [facility] Nucleated erythrocytes [Pres ence] in Blood by Automated countOrdered By: Socorro Osullivan on 10-11-2022 Nucleated RBC Auto Ql (Bld) 0.2 /100{WBC} 0-0.5 [facility] Platelet mean volume Auto (B ld) [Entitic vol]Ordered By: Socorro Osullivan on 10-11-2022 Platelet mean volume (Bld) [Entitic vol] 8.0 fL 6.6-10.1 [facility] Platelet poor plasma interna tional normalized ratio (INR) by coagulation assay (relatOrdered By: Socorro Osullivan on 10-11-2022 INR Coag (PPP) [Relative time] 1.0 {INR} [facility] Comment on above: INR Therapeutic Rang [...] 10-11-2022 Platelets (Bld) [#/Vol] 218 10*3/uL 150-450 [facility] Potassium [Moles/volume] in Serum or PlasmaOrdered By: Socorro Osullivan on 10-11-2022 Potassium [Moles/Vol] 3.8 mmol/L 3.5-5.1 [facility] RBC Auto (Bld) [#/Vol]Ordere d By: Socorro Osullivan on 10-11-2022 RBC (Bld) [#/Vol] 4.67 10*6/uL 3.90-5.60 [facility] Serum or plasma anion gap de terminationOrdered By: Socorro Osullivan on 10-11-2022 Anion gap [Moles/Vol] 10.7 mmol/L 6.0-15.0 [facility] Sodium [Moles/volume] in Ser um or PlasmaOrdered By: Socorro Osullivan on 10-11-2022 Sodium [Moles/Vol] 138 mmol/L 136-145 [facility] Troponin I.cardiac [Mass/vol ume] in Serum or Plasma by Detection limit <= 0.01 ng/Ordered By: Socorro Osullivan on 10-11-2022 Troponin I.cardiac DL <= 0.01 ng/mL [Mass/Vol] 6.3 pg/mL 0.0-20.0 [facility] Urea nitrogen [Mass/volume] in Serum or PlasmaOrdered By: Socorro Osullivan on 10-11-2022 Urea nitrogen [Mass/Vol] 11 mg/dL 7-25 [facility] WBC Auto (Bld) [#/Vol]Ordere d By: Socorro Osullivan on 10-11-2022 WBC (Bld) [#/Vol] 9.5 10*3/uL 4.1-10.5 [facility] BNPon 05-16-2022 Natriuretic peptide B (Bld) [Mass/Vol] 51.0 pg/mL Normal <=450.0 [facility] Comment on above: Performed By: #### B LIVESTOCK FARMER, CMADM, BMP #### [facility] [address] [address] [address] Divina Patino CARDIAC DAT 3-6on 3 CK [Catalytic activity/Vol] 43 U/L Normal 39-308 [facility] Comment on above: Performed By: #### L ACT #### [facility] [address] [place] [address] Dr. Divina Patino HSTROP 10.6 pg/mL Normal 4.0-76.1 [facility] Comment on above: Result Comment: CUT- OFF POINTS HAVE BEEN ESTABLISHED BASED ON THE FOURTH UNIVERSAL DEFINITIONS OF MYOCARDIAL INFARCTION. THE UPPER REFERENCE LIMIT (URL) OF TROPONIN, DEFINED THE 99TH PERCENTILE OF cTnI DISTRIBUTION IN A REFERENCE POPULATION, HAS BEEN CONFIRMED THE DECISION THRESHOLD FOR MD DIAGNOSIS. Performed By: #### L ACT #### [facility] [address] [place] [address] Dr. Divina SMITH DAT ADMITon 023 CK [Catalytic activity/Vol] 44 U/L Normal 39-308 [facility] Comment on above: Performed By: #### B LIVESTOCK FARMER, CMADM, BMP #### [facility] [address] [place] [address] Dr. Divina Patino CK.MB [Mass/Vol] ng/mL Normal <=3.60 [facility] Comment on above: Performed By: #### B LIVESTOCK FARMER, CMADM, BMP #### [facility] [address] [place] [address] Dr. Divina Patino HSTROP 9.9 pg/mL Normal 4.0-76.[address] [facility] Comment on above: Result Comment: CUT- OFF POINTS HAVE BEEN ESTABLISHED BASED ON THE FOURTH UNIVERSAL DEFINITIONS OF MYOCARDIAL INFARCTION. THE UPPER REFERENCE LIMIT (URL) OF TROPONIN, DEFINED THE 99TH PERCENTILE OF cTnI DISTRIBUTION IN A REFERENCE POPULATION, HAS BEEN CONFIRMED THE DECISION THRESHOLD FOR MD DIAGNOSIS. Performed By: #### B LIVESTOCK FARMER, CMADM, BMP #### [facility] [address] [place] [address] Dr. Divina Patino CIELO 21 ng/mL Normal 16-96 [facility] Comment on above: Performed By: #### B LIVESTOCK FARMER, CMADM, BMP #### [facility] [address] [place] [address] Dr. Divina Patino CBC AUTO DIFFon 05-16-2022 BASO # 0.1 103/ul Normal 0.0-0.1 [facility] Comment on above: Performed By: #### C BC #### [facility] [address] [place] [address] Dr. Divina Patino Basophils/100 WBC (Bld) 0.6 % Normal 0.2-2.0 [facility] Comment on above: Performed By: #### C BC #### [facility] [address] [place] [address] Dr. Divina Patino EO # 0.3 103/ul Normal 0.0-0.7 [facility] Comment on above: Performed By: #### C BC #### [facility] [address] [place] [address] Dr. Divina Patino Eosinophils/100 WBC (Bld) 2.3 % Normal 0.9-7.0 [facility] Comment on above: Performed By: #### C BC #### [facility] [address] [place] [address] Dr. Divina Patino Erythrocyte distribution width (RBC) [Ratio] 12.3 % Normal 11.0-15.0 [facility] Comment on above: Performed By: #### C BC #### [facility] [address] [place] [address] Dr. Divina Patino Hematocrit (Bld) [Volume fraction] 41.6 % Critically low 42.0-54.0 [facility] Comment on above: Performed By: #### C BC #### [facility] [address] [place] [address] Dr. Divina Patino Hemoglobin (Bld) [Mass/Vol] 14.6 g/dL Normal 14.0-18.0 [facility] Comment on above: Performed By: #### C BC #### [facility] [address] [place] [address] Dr. Divina Patino IG # 0.12 10e3/ul Critically high 0.00-0.03 [facility] Comment on above: Performed By: #### C BC #### [facility] [address] [address] [address] Divina Patino IG % 1.0 % Critically high 0.0-0.5 [facility] Comment on above: Performed By: #### C BC #### [facility] [address] [place] [address] Dr. Divina Patino LYMPH # 2.7 103/ul Normal 1.2-3.8 [facility] Comment on above: Performed By: #### C BC #### [facility] [address] [place] [address] Dr. Divina Patino Lymphocytes/100 WBC (Bld) 23.0 % Normal 20.5-60.0 [facility] Comment on above: Performed By: #### C BC #### [facility] [address] [place] [address] Dr. Divina Patino MANUAL DIFF REQ NO Normal [facility] Comment on above: Performed By: #### C BC #### [facility] [address] [place] [address] Dr. Divina Patino MCH (RBC) [Entitic mass] 30.0 pg Normal 25.9-34.0 [facility] Comment on above: Performed By: #### C BC #### [facility] [address] [place] [address] Dr. Divina Patino MCHC (RBC) [Mass/Vol] 35.1 g/dL Normal 29.9-35.2 [facility] Comment on above: Performed By: #### C BC #### [facility] [address] [place] [address] Dr. Divina Patino MCV (RBC) [Entitic vol] 85.6 fL Normal 80.0-94.0 [facility] Comment on above: Performed By: #### C BC #### [facility] [address] [place] [address] Dr. Divina Patino MONO # 1.0 103/ul Critically high 0.3-0.8 [facility] Comment on above: Performed By: #### C BC #### [facility] [address] [address] [address] Divina Patino Monocytes/100 WBC (Bld) 8.6 % Normal 1.7-12.0 [facility] Comment on above: Performed By: #### C BC #### [facility] [address] [place] [address] Dr. Divina Patino NEUT # 7.4 103/ul Critically high 1.4-6.5 [facility] Comment on above: Performed By: #### C BC #### [facility] [address] [place] [address] Dr. Divina Patino Neutrophils/100 WBC (Bld) 64.5 % Normal 43.0-75.0 [facility] Comment on above: Performed By: #### C BC #### [facility] [address] [place] [address] Dr. Divina Patino Platelet mean volume (Bld) [Entitic vol] 9.9 fL Normal 9.5-13.5 [facility] Comment on above: Performed By: #### C BC #### [facility] [address] [place] [address] Dr. Divina Patino PLT 231 103/ul Normal 150-[address] [facility] Comment on above: Performed By: #### C BC #### [facility] [address] [place], [place] [id number] Dr. Divina Patino RBC 4.86 106/ul Normal 4.70-6.[address] [facility] Comment on above: Performed By: #### C BC #### [facility] [address] [place] [address] Dr. Divina Patino WBC 11.5 103/ul Critically high 4.0-11.0 [facility] Comment on above: Performed By: #### C BC #### [facility] [address] [address] [address] Divina Patino D-DIMERon 05-16-2022 D-DIMER 0.19 mg/L FEU Normal <=0.59 [facility] Comment on above: Performed By: #### D DIM #### [facility] [address] [address] [address] Divina Patino D-DIMER COMMENTS SEE BELOW Normal [facility] Comment on above: [...] hospitalization. Performed By: #### D DIM #### [facility] [address] [address] [address] Divina Patino LACTATE/LACTIC ACIDon 2022 Lactate [Moles/Vol] 1.5 mmol/L Normal 0.4-1.9 [facility] Comment on above: Performed By: #### L ACT #### [facility] [address] [address] [address] Divina Patino PROF CHEM 8 (BAS METB)on Anion gap [Moles/Vol] 13.7 mmol/L Normal [facility] Comment on above: Performed By: #### B LIVESTOCK FARMER, CMADM, BMP #### [facility] [address] [address] [address] Divina Patino Calcium [Mass/Vol] 8.7 mg/dL Normal 8.5-10.1 [facility] Comment on above: Performed By: #### B LIVESTOCK FARMER, CMADM, BMP #### [facility] [address] [place] [address] Dr. Divina Patino Chloride [Moles/Vol] 102 mmol/L Normal 98-107 [facility] Comment on above: Performed By: #### B LIVESTOCK FARMER, CMADM, BMP #### [facility] [address] [address] [address] Divina Patino CO2 [Moles/Vol] 27.1 mmol/L Normal 21.0-32.0 [facility] Comment on above: Performed By: #### B LIVESTOCK FARMER, CMADM, BMP #### [facility] [address] [place] [address] Dr. Divina Patino Creatinine [Mass/Vol] 0.85 mg/dL Normal 0.70-1.30 [facility] Comment on above: Performed By: #### B LIVESTOCK FARMER, CMADM, BMP #### [facility] [address] [place] [address] Dr. Divina Patino EGFR-AF HAITIAN >60 Normal >=60 [facility] Comment on above: Performed By: #### B LIVESTOCK FARMER, CMADM, BMP #### [facility] [address] [place] [address] Dr. Divina Patino EGFR-NON AF HAITIAN >60 Normal >=60 [facility] Comment on above: Performed By: #### B LIVESTOCK FARMER, CMADM, BMP #### [facility] [address] [place] [address] Dr. Divina Patino Glucose [Mass/Vol] 114 mg/dL Critically high 74-106 [facility] Comment on above: Performed By: #### B LIVESTOCK FARMER, CMADM, BMP #### [facility] [address] [place] [address] Dr. Divina Patino Potassium [Moles/Vol] 3.8 mmol/L Normal 3.5-5.1 [facility] Comment on above: Performed By: #### B LIVESTOCK FARMER, CMADM, BMP #### [facility] [address] [place] [address] Dr. Divina Patino Sodium [Moles/Vol] 139 mmol/L Normal 136-145 [facility] Comment on above: Performed By: #### B LIVESTOCK FARMER, CMADM, BMP #### [facility] [address] [place] [address] Dr. Divina Patino Urea nitrogen [Mass/Vol] 15.0 mg/dL Normal 7.0-18.0 [facility] Comment on above: Performed By: #### B ESME ORTEGA BMP #### [facility] [address] [address] [address] Divina Patino Urea nitrogen/Creatinine [Mass ratio] 17.6 mg/mg Normal [facility] Comment on above: Performed By: #### B ESME ORTEGA BMP #### [facility] [address] [address] [address] Divina Patino XR CHEST 1 Von [...] AMAN PURCELL Date: 2022-05-15 23:[address] [facility] CARDIAC DAT ADMITon 023 CK [Catalytic activity/Vol] 78 U/L Normal 39-[address] [facility] Comment on above: Performed By: #### L ACT #### [facility] [address] [place] [address] Dr. Divina Patino CK.MB [Mass/Vol] 1.08 ng/mL Normal <=3.60 [facility] Comment on above: Performed By: #### L ACT #### [facility] [address] [place] [address] Dr. Divina Patino HSTROP 12.2 pg/mL Normal 4.0-76.[address] [facility] Comment on above: Result Comment: CUT- OFF POINTS HAVE BEEN ESTABLISHED BASED ON THE FOURTH UNIVERSAL DEFINITIONS OF MYOCARDIAL INFARCTION. THE UPPER REFERENCE LIMIT (URL) OF TROPONIN, DEFINED THE 99TH PERCENTILE OF cTnI DISTRIBUTION IN A REFERENCE POPULATION, HAS BEEN CONFIRMED THE DECISION THRESHOLD FOR MD DIAGNOSIS. Performed By: #### L ACT #### [facility] [address] [place] [address] Dr. Divina Patino CIELO 24 ng/mL Normal 16-96 [facility] Comment on above: Performed By: #### L ACT #### [facility] [address] [place] [address] Dr. Divina Patino CBC AUTO DIFFon 05-11-2022 BASO # 0.1 103/ul Normal 0.0-0.1 [facility] Comment on above: Performed By: #### L ACT #### [facility] [address] [place] [address] Dr. Divina Patino Basophils/100 WBC (Bld) 0.6 % Normal 0.2-2.0 [facility] Comment on above: Performed By: #### L ACT #### [facility] [address] [place] [address] Dr. Divina Patino EO # 0.2 103/ul Normal 0.0-0.7 [facility] Comment on above: Performed By: #### L ACT #### [facility] [address] [place] [address] Dr. Divina Patino Eosinophils/100 WBC (Bld) 2.0 % Normal 0.9-7.0 [facility] Comment on above: Performed By: #### L ACT #### [facility] [address] [place] [address] Dr. Divina Patino Erythrocyte distribution width (RBC) [Ratio] 12.4 % Normal 11.0-15.0 [facility] Comment on above: Performed By: #### L ACT #### [facility] [address] [place] [address] Dr. Divina Patino Hematocrit (Bld) [Volume fraction] 43.8 % Normal 42.0-54.0 [facility] Comment on above: Performed By: #### L ACT #### [facility] [address] [place] [address] Dr. Divina Patino Hemoglobin (Bld) [Mass/Vol] 15.3 g/dL Normal 14.0-18.0 [facility] Comment on above: Performed By: #### L ACT #### [facility] [address] [place] [address] Dr. Divina Patino IG # 0.06 10e3/ul Critically high 0.00-0.03 [facility] Comment on above: Performed By: #### L ACT #### [facility] [address] [place] [address] Dr. Divina Patino IG % 0.6 % Critically high 0.0-0.5 [facility] Comment on above: Performed By: #### L ACT #### [facility] [address] [address] [address] Divina Patino LYMPH # 2.0 103/ul Normal 1.2-3.8 [facility] Comment on above: Performed By: #### L ACT #### [facility] [address] [place] [address] Dr. Divina Patino Lymphocytes/100 WBC (Bld) 19.9 % Critically low 20.5-60.0 [facility] Comment on above: Performed By: #### L ACT #### [facility] [address] [place] [address] Dr. Divina Patino MANUAL DIFF REQ NO Normal [facility] Comment on above: Performed By: #### L ACT #### [facility] [address] [place] [address] Dr. Divina Patino MCH (RBC) [Entitic mass] 30.2 pg Normal 25.9-34.0 [facility] Comment on above: Performed By: #### L ACT #### [facility] [address] [place] [address] Dr. Divina Patino MCHC (RBC) [Mass/Vol] 34.9 g/dL Normal 29.9-35.2 [facility] Comment on above: Performed By: #### L ACT #### [facility] [address] [place] [address] Dr. Divina Patino MCV (RBC) [Entitic vol] 86.6 fL Normal 80.0-94.0 [facility] Comment on above: Performed By: #### L ACT #### [facility] [address] [place] [address] Dr. Divina Patino MONO # 0.8 103/ul Normal 0.3-0.8 [facility] Comment on above: Performed By: #### L ACT #### [facility] [address] [address] [address] Divina Patino Monocytes/100 WBC (Bld) 7.7 % Normal 1.7-12.0 [facility] Comment on above: Performed By: #### L ACT #### [facility] [address] [address] [address] Divina Patino NEUT # 7.1 103/ul Critically high 1.4-6.5 [facility] Comment on above: Performed By: #### L ACT #### [facility] [address] [address] [address] Divina Patino Neutrophils/100 WBC (Bld) 69.2 % Normal 43.0-75.0 [facility] Comment on above: Performed By: #### L ACT #### [facility] [address] [place] [address] Dr. Divina Patino Platelet mean volume (Bld) [Entitic vol] 10.3 fL Normal 9.5-13.5 [facility] Comment on above: Performed By: #### L ACT #### [facility] [address] [place] [address] Dr. Divina Patino PLT 238 103/ul Normal 150-[address] [facility] Comment on above: Performed By: #### L ACT #### [facility] [address] [place] [address] Dr. Divina Patino RBC 5.06 106/ul Normal 4.70-6.[address] [facility] Comment on above: Performed By: #### L ACT #### [facility] [address] [place] [address] Dr. Divina Patino WBC 10.3 103/ul Normal 4.0-11.[address] [facility] Comment on above: Performed By: #### L ACT #### [facility] [address] [place] [address] Dr. Divina Patino CRPon 05-11-2022 CRP [Mass/Vol] mg/L Normal <=1.0 [facility] Comment on above: Performed By: #### L ACT #### [facility] [address] [address] HEAD WO CONon [...] JAMES JOHNSTON Date: 2022-05-11 19:[address] [facility] Covid-19 PCR (CVDTB)on SARS-CoV-2 (COVID-19) RNA JERRICA+probe Ql (Unsp spec) Not detected Normal NOT DETECTED [facility] Comment on above: Result Comment: When diagnostic [...] for this test is supported by the Clerical Secretary of Health and Human Service's declaration that [...] used). Performed By: #### C VDTBH #### [facility] [address] [address] [address] Divina Patino INFLUENZA A AND B AGon 05-11 INFLUANEGH SEE BELOW Normal [facility] Comment on above: Result Comment: Nega tive for Flu A protein angiten. Infection due to Flu A cannot be ruled out. Flu A angiten in the sample may be below the detection limit of the test. Performed By: #### I NFLUAB #### [facility] [address] [place] [address] Dr. Divina Pat[facility] SEE BELOW Normal [facility] Comment on above: Result Comment: Nega tive for Flu B protein antigen. Infection due to Flu B cannot be ruled out. Flu B antigen in the sample may be below the detection limit of the test. Performed By: #### I NFLUAB #### [facility] [address] [place] [address] Dr. Divina Patino INFLUENZA A AG Negative Normal NEGATIVE SEE COMMENT [facility] Comment on above: Performed By: #### I NFLUAB #### [facility] [address] [place] [address] Dr. Divina Patino INFLUENZA B AG Negative Normal NEGATIVE SEE COMMENT [facility] Comment on above: Performed By: #### I NFLUAB #### [facility] [address] [place] [address] Dr. Divina Patino LACTATE/LACTIC ACIDon 2022 Lactate [Moles/Vol] 1.8 mmol/L Normal 0.4-1.9 [facility] Comment on above: Performed By: #### L ACT #### [facility] [address] [place] [address] Dr. Divina Patino MONOon 05-11-2022 Monocytes (Bld) [#/Vol] Negative Normal NEGATIVE [facility] Comment on above: Performed By: #### M LEANDRO #### [facility] [address] [place] [address] Dr. Divina Patino PROF CHEM 8 (BAS METB)on Anion gap [Moles/Vol] 12.8 mmol/L Normal [facility] Comment on above: Performed By: #### L ACT #### [facility] [address] [place] [address] Dr. Divina Patino Calcium [Mass/Vol] 9.1 mg/dL Normal 8.5-10.1 [facility] Comment on above: Performed By: #### L ACT #### [facility] [address] [place] [address] Dr. Divina Patino Chloride [Moles/Vol] 101 mmol/L Normal 98-107 [facility] Comment on above: Performed By: #### L ACT #### [facility] [address] [place] [address] Dr. Divina Patino CO2 [Moles/Vol] 26.9 mmol/L Normal 21.0-32.0 [facility] Comment on above: Performed By: #### L ACT #### [facility] [address] [place] [address] Dr. Divina Patino Creatinine [Mass/Vol] 0.90 mg/dL Normal 0.70-1.30 [facility] Comment on above: Performed By: #### L ACT #### [facility] [address] [place] [address] Dr. Divina Patino EGFR-AF HAITIAN >60 Normal >=60 [facility] Comment on above: Performed By: #### L ACT #### [facility] [address] [place] [address] Dr. Divina Patino EGFR-NON AF HAITIAN >60 Normal >=60 [facility] Comment on above: Performed By: #### L ACT #### [facility] [address] [place] [address] Dr. Divina Patino Glucose [Mass/Vol] 110 mg/dL Critically high 74-106 [facility] Comment on above: Performed By: #### L ACT #### [facility] [address] [place] [address] Dr. Divina Patino Potassium [Moles/Vol] 3.7 mmol/L Normal 3.5-5.[address] [facility] Comment on above: Performed By: #### L ACT #### [facility] [address] [place] [address] Dr. Divina Patino Sodium [Moles/Vol] 137 mmol/L Normal 136-145 [facility] Comment on above: Performed By: #### L ACT #### [facility] [address] [address] [address] Divina Patino Urea nitrogen [Mass/Vol] 11.0 mg/dL Normal 7.0-18.0 [facility] Comment on above: Performed By: #### L ACT #### [facility] [address] [address] [address] Divina Patino Urea nitrogen/Creatinine [Mass ratio] 12.2 mg/mg Normal [facility] Comment on above: Performed By: #### L ACT #### [facility] [address] [address] [address] Divina Patino SED [facility] ISLANDRENon 2022 SED RATE 16 mm/hr Critically high <=15 [facility] Comment on above: Performed By: #### L ACT #### [facility] [address] [address] [address] Divina Patino TSHon 05-11-2022 TSH 3.949 uIU/mL Critically high 0.358-3.740 [facility] Comment on above: Performed By: #### L ACT #### [facility] [address] [address] [address] Divina Patino COVID-19 SOFIAOrdered By: Andres Elizondo on 12-02-2021 SARS-CoV+SARS-CoV-2 (COVID-19) Ag IA.rapid Ql (Resp) Negative Negative [facility] Comment on above: This is a duplicate Judith SARS Antigen (ANURAG) result to be used for statistical tracking purpose only. No Panel InformationOrdered By: Elian Elizondo on 12-02-2021 SARS Antigen (LFIA) [facility] CBC with Auto Differentialon 06-08-2021 Absolute Eos # 0.11 [facility] Absolute Immature Granulocyte 0.06 [facility] Absolute Lymph # 1.65 [facility] alth Absolute [place] # 1.03 [facility] Basophils (Bld) [#/Vol] 0.07 10*3/uL [facility] NeurAxon Basophils/100 WBC (Bld) 1 % 0 - 2 % [facility] Eosinophils/100 WBC (Bld) 1 % 1 - 4 % [facility] Hematocrit (Bld) [Volume fraction] 47.5 % 40.7 - 50.3 % [facility] Hemoglobin.gastroint estinal spec 1 Ql (Stl) 16.3 g/dL 13.0 - 17.0 g/dL [facility] Immature granulocytes/100 WBC (Bld) 1 % High 0 [facility] Interpretation and review of laboratory results Abnormal [facility] Lymphocytes/100 WBC (Bld) 14 % Low 24 - 43 % [facility] MCH (RBC) [Entitic mass] 30.5 pg 25.2 - 33.5 pg [facility] MCHC (RBC) [Mass/Vol] 34.3 g/dL 28.4 - 34.8 g/dL [facility] MCV (RBC) [Entitic vol] 89.0 fL 82.6 - 102.9 fL [facility] Monocytes/100 WBC (Bld) 9 % 3 - 12 % [facility] NRBC Automated 0.0 0.0 per 100 WBC [facility] Platelet distribution width (Bld) [Ratio] 12.5 % 11.8 - 14.4 % [facility] Platelet mean volume (Bld) [Entitic vol] 10.8 fL 8.1 - 13.5 fL [facility] Platelets (Bld) [#/Vol] 231 10*3/uL [facility] RBC (Bld) [#/Vol] 5.34 10*6/uL 4.21 - 5.77 m/uL [facility] Segmented neutrophils/100 WBC (Bld) 74 % High 36 - 65 % [facility] Segs Absolute 9.05 High [facility] WBC (Bld) [#/Vol] 12.0 10*3/uL [facility] CT [...] COMPARISON: 02/05/2019 HISTORY: ORDERING SYSTEM PROVIDED HISTORY: [facility] pain TECHNOLOGIST PROVIDED HISTORY: [facility] pain Decision Support Exception - [...] aneurysm. Bones/Soft Tissues: Mild multilevel thoracolumbar spondylosis. [facility] RIS CONSOLIDATED Ok Rodgers MD - 06/08/2021 [...] COMPARISON: 02/05/2019 HISTORY: ORDERING SYSTEM PROVIDED HISTORY: [facility] pain TECHNOLOGIST PROVIDED HISTORY: [facility] pain Decision Support Exception - [...] stones in the left kidney. Normal appendix. [employer] Work Phone: Radiology Study observation (narrative) [employer] Phone: CT ABDOMEN PELVIS W IV CONTR AST Additional Contrast? NoneOrdered By: Ok Rodgers on 06-08-2021 [employer] Phone: Comprehensive Metabolic Pane karan 06-08-2021 Albumin [Mass/Vol] 4.6 g/dL 3.5 - 5.2 g/dL [facility] Albumin/Globulin [Mass ratio] 1.5 {ratio} [facility] ALP (Bld) [Catalytic activity/Vol] 90 U/L 40 - 129 U/L [facility] ALT [Catalytic activity/Vol] 37 U/L 5 - 41 U/L [facility] Anion gap [Moles/Vol] 10 mmol/L 9 - 17 mmol/L [facility] AST [Catalytic activity/Vol] 18 U/L <40 [facility] Bilirubin [Mass/Vol] 0.83 mg/dL 0.3 - 1.2 mg/dL [facility] Calcium [Mass/Vol] 9.7 mg/dL 8.6 - 10.4 mg/dL [facility] Chloride [Moles/Vol] 101 mmol/L 98 - 107 mmol/L [facility] CO2 [Moles/Vol] 29 mmol/L 20 - 31 mmol/L [facility] Creatinine [Mass/Vol] 0.83 mg/dL 0.70 - 1.20 mg/dL [facility] Free PSA/Total PSA [Mass fraction] 7.6 g/dL 6.4 - 8.3 g/dL [facility] GFR >60 >60 mL/min [place] GFR Non- >60 >60 mL/min [facility] Glucose [Mass/Vol] 110 mg/dL High 70 - 99 mg/dL [facility] Interpretation and review of laboratory results Abnormal [facility] Potassium [Moles/Vol] 4.2 mmol/L 3.7 - 5.3 mmol/L [facility] Sodium [Moles/Vol] 140 mmol/L 135 - 144 mmol/L [facility] Urea nitrogen (BldV) [Mass/Vol] 10 mg/dL 6 - 20 mg/dL [facility] Urea nitrogen/Creatinine (Bld) [Mass ratio] 12 [facility] - Chemistry and C hemistry - challengeon 06-08-2021 GFR/1.73 sq M.predicted MDRD (S/P/Bld) [Vol rate/Area] [facility] Comment on above: Average GFR for 40-4 9 years old: 99 mL/min/1.73sq m Chronic Kidney Disease: <60 mL/min/1.73sq m Kidney failure: <15 mL/min/1.73sq m eGFR calculated using average adult body mass. Additional eGFR calculator available at: http://www.[employer]/multiple_crcl_2012.htm Stage 1: Some kidney damage normal GFR [...] activity/Vol] 30 U/L 13 - 60 U/L [facility] No Panel Informationon 06-08 [facility] Basic Metabolic Panelon Anion gap [Moles/Vol] 9 mmol/L 9 - 17 mmol/L [facility], [place] Bun/Cre Ratio 12 [facility] [place], [place] Calcium [Mass/Vol] 8.8 mg/dL 8.6 - 10.4 mg/dL [facility] [place] Chloride [Moles/Vol] 98 mmol/L 98 - 107 mmol/L [place] CO2 [Moles/Vol] 26 mmol/L 20 - 31 mmol/L [place] Creatinine [Mass/Vol] 1.04 mg/dL 0.7 - 1.2 mg/dL [place] GFR >60 >60 mL/min [place] GFR Non- >60 >60 mL/min [place] Glucose [Mass/Vol] 111 mg/dL High 70 - 99 mg/dL [place] Interpretation and review of laboratory results Abnormal [place] Potassium [Moles/Vol] 3.9 mmol/L 3.7 - 5.3 mmol/L [place] Sodium [Moles/Vol] 133 mmol/L Low 135 - 144 mmol/L [place] Urea nitrogen [Mass/Vol] 12 mg/dL 6 - 20 mg/dL [place] Brain Natriuretic Peptideon 03-19-2020 Natriuretic peptide B (Bld) [Mass/Vol] Pro-BNP Reference Range: [place], [place] Comment on above: Rule Out: <300 Reis Zone: Age <50 300-450 Age 50-75 300-900 Age >75 300-1800 Usually represents mild to moderate HF but other cardiopulmonary causes cannot be ruled out. Rule In: Age <50 >450 Age 50-75 >900 Age >75 >1800 Natriuretic peptide B (Bld) [Mass/Vol] 60 pg/mL <300 [place] Comment on above: Pro-BNP results radha ot be compared to BNP results. CBC Auto Differentialon Basophils (Bld) [#/Vol] 0.04 10*3/uL [place] Basophils/100 WBC (Bld) 1 % 0 - 2 % [place] Differential Type NOT REPORTED [place] Eosinophils (Bld) [#/Vol] 0.04 10*3/uL [place] Eosinophils/100 WBC (Bld) 1 % 1 - 4 % [place] Erythrocyte distribution width (RBC) [Ratio] 12.5 % 11.8 - 14.4 % [place] Hematocrit (Bld) [Volume fraction] 48.2 % 40.7 - 50.3 % [place] Hemoglobin (Bld) [Mass/Vol] 16.3 g/dL 13 - 17 g/dL [place] Immature granulocytes (Bld) [#/Vol] 1 % High 0 [place] Immature granulocytes (Bld) [#/Vol] 0.07 10*3/uL [place] Interpretation and review of laboratory results Abnormal [place] Lymphocytes (Bld) [#/Vol] 1.10 10*3/uL [place] Lymphocytes/100 WBC (Bld) 13 % Low 24 - 43 % [place] MCH (RBC) [Entitic mass] 29.4 pg 25.2 - 33.5 pg [place] MCHC (RBC) [Mass/Vol] 33.8 g/dL 28.4 - 34.8 g/dL [place] MCV (RBC) [Entitic vol] 87.0 fL 82.6 - 102.9 fL [place] Monocytes (Bld) [#/Vol] 0.96 10*3/uL [place] Monocytes/100 WBC (Bld) 11 % 3 - 12 % [place] Platelet mean volume (Bld) [Entitic vol] 11.2 fL 8.1 - 13.5 fL [place] Platelets (Bld) [#/Vol] 175 10*3/uL [place] Platelets (Bld) [#/Vol] NOT REPORTED [place] RBC (Bld) [#/Vol] 5.54 10*6/uL 4.21 - 5.77 m/uL [place] RBC morphology finding Nom (Bld) NOT REPORTED [place] Segmented neutrophils/100 WBC (Bld) 73 % High 36 - 65 % [place] Segs Absolute 6.21 [place] WBC (Bld) [#/Vol] 8.4 10*3/uL [place] WBC (Bld) [#/Vol] 0.0 10*3/uL 0.0 per 100 WBC M [place] WBC Morphology NOT REPORTED [facility] [place] COVID-19, PCRon 03-19-2020 Interpretation and review of laboratory results Abnormal [place] SARS-CoV-2, Rapid DETECTED Abnormal Not Detected [place] Comment on above: Rapid NAAT: The [...] this assay. Fact sheet for Healthcare Providers: https://www.fda.gov/media/904191/download Fact sheet for Patients: https://www.fda.gov/media/520025/download Methodology: Isothermal Nucleic Acid Amplification Results reported to the appropriate Health Department Source .NASOPHARYNGEAL SWAB [place], [place] CT CHEST PULMONARY EMBOLISM W CONTRASTon 03-19-2020 1. No pulmonary embolism. 2. Multifocal ground-glass opacities in the bilateral lungs with overall pattern of concern for underlying viral pneumonitis. 3. Hepatomegaly and diffuse steatosis in the abdomen, stable from remote imaging. [place] [facility], [facility] Incoming Radiant Results From [employer] - 03/19/2020 8:26 PM EST EXAMINATION: CTA [...] in the abdomen, stable from remote imaging. [place] EXAMINATION: CTA OF THE CHEST 03/19/2020 [...] Tissues/Bones: No skeletal abnormalities throughout the chest. [place] Lactic Acid, Plasmaon 2020 Lactate [Moles/Vol] 1.2 mmol/L 0.5 - 2.2 mmol/L [place] Lactic Acid, Whole Blood NOT REPORTED 0.7 - 2.1 mmol/L [place] Metabolic Panelon 03-19-2020 GFR/1.73 sq M predicted among non-blacks MDRD (S/P/Bld) [Vol rate/Area] [place] Comment on above: Average GFR for 40-4 9 years old: 99 mL/min/1.73sq m Chronic Kidney Disease: <60 mL/min/1.73sq m Kidney failure: <15 mL/min/1.73sq m eGFR calculated using average adult body mass. Additional eGFR calculator available at: http://www.[employer]/multiple_crcl_2012.htm Stage 1: Some kidney damage normal GFR Stage 2: Mild kidney damage GFR 60-89 Stage 3: Moderate kidney damage GFR 30-59 Stage 4: Severe kidney damage GFR 15-29 Stage 5: Severe kidney damage GFR <15 ESRD - chronic treatment by dialysis or transplant Otheron 03-19-2020 SARS-CoV-2 [place], [place] Rapid influenza A/B antigens on 03-19-2020 Direct Exam NEGATIVE for Influenza A + B antigens. PCR testing to confirm this result is available upon request. Specimen will be saved in the laboratory for 7 days. Please call [phone] if PCR testing is indicated. [place] Special Requests NOT REPORTED [place] Specimen Description .NASOPHARYNGEAL SWAB [place] Troponinon 03-19-2020 Troponin I.cardiac [Mass/Vol] NOT REPORTED [place] Troponin T.cardiac [Mass/Vol] NOT REPORTED <0.03 ng/mL [place] Troponin, High Sensitivity 15 ng/L 0 - 22 ng/L [place] Comment on above: High Sensitivity Troponin values cannot be compared with other Troponin methodologies. Patients with high levels of Biotin oral intake (i.e >5mg/day) may have falsely decreased Troponin levels. Samples collected within 8 hours of biotin intake may require additional information for diagnosis. XR CHEST PORTABLEon 03-19-19 21 [facility], [facility] Incoming Radiant Results From [employer] - 03/19/2020 6:06 PM EST EXAMINATION: ONE XRAY VIEW OF THE CHEST 03/19/2020 5:58 pm COMPARISON: June 27, 2018 HISTORY: ORDERING SYSTEM PROVIDED HISTORY: dyspnea TECHNOLOGIST PROVIDED HISTORY: dyspnea FINDINGS: Mild edema. Heart and mediastinum normal. Bony thorax intact. IMPRESSION: Mild edema or pneumonitis [place] EXAMINATION: ONE XRAY VIEW OF THE CHEST 03/19/2020 5:58 pm COMPARISON: June 27, 2018 HISTORY: ORDERING SYSTEM PROVIDED HISTORY: dyspnea TECHNOLOGIST PROVIDED HISTORY: dyspnea FINDINGS: Mild edema. Heart and mediastinum normal. Bony thorax intact. [place] Mild edema or pneumonitis [place] Otheron 10-21-2019 No acute abnormalities seen in the left foot or left ankle [place] EXAMINATION: THREE XRAY VIEWS OF THE [...] medial malleolus most likely from old trauma. [place] [facility], [facility] Incoming Radiant Results From [employer] - 10/21/2019 4:26 PM EDT EXAMINATION: THREE [...] in the left foot or left ankle [place] Basic Metabolic Panel w/ Ref katrin to MGon 02-06-2019 Anion gap [Moles/Vol] 13 mmol/L 9 - 17 mmol/L [place] Bun/Cre Ratio 16 [place] Calcium [Mass/Vol] 8.4 mg/dL Low 8.6 - 10.4 mg/dL [place] Chloride [Moles/Vol] 99 mmol/L 98 - 107 mmol/L [place] CO2 [Moles/Vol] 23 mmol/L 20 - 31 mmol/L [place] Creatinine [Mass/Vol] 0.94 mg/dL 0.7 - 1.2 mg/dL [place] GFR >60 >60 mL/min [place] GFR Non- >60 >60 mL/min [place] Glucose [Mass/Vol] 130 mg/dL High 70 - 99 mg/dL [place] Interpretation and review of laboratory results Abnormal [place] Potassium [Moles/Vol] 3.7 mmol/L 3.7 - 5.3 mmol/L [place] Sodium [Moles/Vol] 135 mmol/L 135 - 144 mmol/L [place] Urea nitrogen [Mass/Vol] 15 mg/dL 6 - 20 mg/dL [place] CBCon 02-06-2019 Erythrocyte distribution width (RBC) [Ratio] 12.5 % 11.8 - 14.4 % [place] Hematocrit (Bld) [Volume fraction] 45.4 % 40.7 - 50.3 % [place] Hemoglobin (Bld) [Mass/Vol] 15.1 g/dL 13 - 17 g/dL [place] MCH (RBC) [Entitic mass] 29.8 pg 25.2 - 33.5 pg [place] MCHC (RBC) [Mass/Vol] 33.3 g/dL 28.4 - 34.8 g/dL [place] MCV (RBC) [Entitic vol] 89.5 fL 82.6 - 102.9 fL [place] Platelet mean volume (Bld) [Entitic vol] 10.4 fL 8.1 - 13.5 fL [place] Platelets (Bld) [#/Vol] 198 10*3/uL [place] RBC (Bld) [#/Vol] 5.07 10*6/uL 4.21 - 5.77 m/uL [place] WBC (Bld) [#/Vol] 0.0 10*3/uL 0.0 per 100 WBC M [place] WBC (Bld) [#/Vol] 10.7 10*3/uL [place] Culture Stoolon 02-06-2019 Campylobacter PCR NEGATIVE: No Campylobacter spp. (jejuni or coli) DNA Detected NEGATIVE: No Campylobacter spp. (jejuni or coli) DNA Detecte [place] E Coli Enterotoxigenic PCR NEGATIVE: No Enterotoxigenic E. coli (ETEC) Heat-labile and heat-stable (LT/ST) DNA Detected NEGATIVE: No Enterotoxigenic E. coli (ETEC) Heat-labile and [place] Plesiomonas Shigelloides PCR Negative NEGATIVE: No Plesionomas shigelloides DNA Detected [place] Salmonella PCR Negative NEGATIVE: No Salmonella spp. DNA Detected [place] Shigatoxin Gene PCR Negative NEGATIVE : No Shiga toxin-producing gene(s) Detected [place] Shigella Sp PCR Negative NEGATIVE: No Shigella spp. / EIEC DNA Detected [place] Specimen Description .FECES [place] Vibrio PCR NEGATIVE: No Vibrio (V. vulnificus, V, parahaemolyticus and V. cholerae) DNA Detected NEGATIVE: No Vibrio (V. vulnificus, V, parahaemolyticus and [place] Yersinia Enterocolitica PCR Negative NEGATIVE: No Yersinia enterocolitica DNA Detected [place] Metabolic Panelon 02-06-2019 GFR/1.73 sq M predicted among non-blacks MDRD (S/P/Bld) [Vol rate/Area] [place], [place] Comment on above: Stage 1: Some [...] body mass. Additional eGFR calculator available at: http://www.[employer]/multiple_crcl_2012.htm Microscopic Urinalysison Amorphous, UA NOT REPORTED None [place], [place] Bacteria, UA TRACE Abnormal None [place] Casts UA NOT REPORTED /LPF [place] Crystals UA NOT REPORTED None /HPF [place], [place] Epithelial Cells UA 0 TO 2 [place] Interpretation and review of laboratory results Abnormal [place] Mucus, UA TRACE Abnormal None [place] Other Observations UA NOT REPORTED NOT REQ. [place] RBC (U) [#/Vol] 0 TO 2 [place] Renal Epithelial, Urine NOT REPORTED 0 /HPF [place] Trichomonas, UA NOT REPORTED None [place] WBC, UA None [place] Yeast, UA NOT REPORTED None [place] - [place] Urinalysis Reflex to Culture on 02-06-2019 Bilirubin Urine Negative NEGATIVE [place] Color, UA YELLOW YELLOW [place] Glucose, Ur Negative NEGATIVE [place] Interpretation and review of laboratory results Abnormal [place] Ketones Ql (U) TRACE Abnormal NEGATIVE [place] Leukocyte esterase Test strip Ql (U) Negative NEGATIVE [place] Nitrite, Urine Negative NEGATIVE [place] pH, UA 5.5 [place] Protein (U) [Mass/Vol] TRACE Abnormal NEGATIVE [place] Specific [place], UA >1.030 [place], [place] Turbidity UA CLEAR CLEAR [place] Urinalysis Comments NOT REPORTED [place] Urine Hgb 1+ Abnormal NEGATIVE [place] Urobilinogen, Urine Normal Normal [place] C DIFF TOXIN/ANTIGENon 02-05 C DIFF AG + TOXIN Negative NEGATIVE [place] Comment on above: No C. difficile anti gen and Toxin Detected. Specimen Description .FECES [place], [place] CBCon 02-05-2019 Erythrocyte distribution width (RBC) [Ratio] 12.0 % 11.8 - 14.4 % [place] Hematocrit (Bld) [Volume fraction] 49.7 % 40.7 - 50.3 % [place] Hemoglobin (Bld) [Mass/Vol] 17.2 g/dL High 13 - 17 g/dL [place] Interpretation and review of laboratory results Abnormal [place] MCH (RBC) [Entitic mass] 30.4 pg 25.2 - 33.5 pg [place] MCHC (RBC) [Mass/Vol] 34.6 g/dL 28.4 - 34.8 g/dL [place] MCV (RBC) [Entitic vol] 87.8 fL 82.6 - 102.9 fL [place] Platelet mean volume (Bld) [Entitic vol] 10.8 fL 8.1 - 13.5 fL [place] Platelets (Bld) [#/Vol] 233 10*3/uL [place] RBC (Bld) [#/Vol] 5.66 10*6/uL 4.21 - 5.77 m/uL [place] WBC (Bld) [#/Vol] 15.0 10*3/uL [place] WBC (Bld) [#/Vol] 0.0 10*3/uL 0.0 per 100 WBC [place] CT ABDOMEN PELVIS W IV CONTR AST Additional Contrast? Noneon 02-05-2019 Tito, pn Incoming Radiant Results From [employer] - 02/05/2019 6:20 PM EST EXAMINATION: CT [...] pathologic adenopathy. Bones/Soft Tissues: Normal IMPRESSION: Ileus [place], [place] EXAMINATION: CT OF THE ABDOMEN AND [...] is no pathologic adenopathy. Bones/Soft Tissues: Normal [place] Ileus [place] Comprehensive Metabolic Pane karan 02-05-2019 Albumin [Mass/Vol] 4.6 g/dL 3.5 - 5.2 g/dL [place] Albumin/Globulin [Mass ratio] 1.4 {ratio} [place] ALP [Catalytic activity/Vol] 88 U/L 40 - 129 U/L [place] ALT [Catalytic activity/Vol] 43 U/L High 5 - 41 U/L [place] Anion gap [Moles/Vol] 19 mmol/L High 9 - 17 mmol/L [place] AST [Catalytic activity/Vol] 23 U/L <40 [place] Bilirubin Ql (U) 1.37 mg/dL High 0.3 - 1.2 mg/dL [place] Bun/Cre Ratio 16 [place], [place] Calcium [Mass/Vol] 9.4 mg/dL 8.6 - 10.4 mg/dL [place] Chloride [Moles/Vol] 96 mmol/L Low 98 - 107 mmol/L [place] CO2 [Moles/Vol] 21 mmol/L 20 - 31 mmol/L [place] Creatinine [Mass/Vol] 0.9 mg/dL 0.7 - 1.2 mg/dL [place] GFR >60 >60 mL/min [place] GFR Non- >60 >60 mL/min [place] Glucose [Mass/Vol] 119 mg/dL High 70 - 99 mg/dL [place] Interpretation and review of laboratory results Abnormal [place] Potassium [Moles/Vol] 4.2 mmol/L 3.7 - 5.3 mmol/L [place] Protein [Mass/Vol] 8.0 g/dL 6.4 - 8.3 g/dL [place] Sodium [Moles/Vol] 136 mmol/L 135 - 144 mmol/L [place] Urea nitrogen [Mass/Vol] 14 mg/dL 6 - 20 mg/dL [place] Lactic Acid, Plasmaon 2018 Interpretation and review of laboratory results Abnormal [place] Lactate [Moles/Vol] 2.4 mmol/L High 0.5 - 2.2 mmol/L [place] Lactic Acid, Whole Blood NOT REPORTED 0.7 - 2.1 mmol/L [place] Lipaseon 02-05-2019 Lipase [Catalytic activity/Vol] 32 U/L 13 - 60 U/L [place] Metabolic Panelon 02-05-2019 GFR/1.73 sq M predicted among non-blacks MDRD (S/P/Bld) [Vol rate/Area] [place], [place] Comment on above: Average GFR for 40-4 9 years old: 99 mL/min/1.73sq m Chronic Kidney Disease: <60 mL/min/1.73sq m Kidney failure: <15 mL/min/1.73sq m eGFR calculated using average adult body mass. Additional eGFR calculator available at: http://www.[employer]/multiple_crcl_2012.htm Stage 1: Some kidney damage normal GFR Stage 2: Mild kidney damage GFR 60-89 Stage 3: Moderate kidney damage GFR 30-59 Stage 4: Severe kidney damage GFR 15-29 Stage 5: Severe kidney damage GFR <15 ESRD - chronic treatment by dialysis or transplant Vital Signs Date Time Vital Sign Value Performing Clinician Rochelle cerrato 10-11-2022 15:03-0400 Diastolic blood pressure 81 mm[Hg] PHYSICIAN NO [facility] 10-11-2022 15:03-0400 Heart rate 75 /min PHYSICIAN NO [facility] 10-11-2022 15:03-0400 Respiratory rate 20 /min PHYSICIAN NO [facility] 10-11-2022 15:03-0400 SaO2% (BldA) [Mass fraction] 97 % PHYSICIAN NO [facility] 10-11-2022 15:03-0400 Systolic blood pressure 146 mm[Hg] PHYSICIAN NO [facility] 10-11-2022 12:17-0400 Body temperature 98.3 [degF] PHYSICIAN NO [facility] 10-11-2022 12:12-0400 Body height 175.26 cm PHYSICIAN NO [facility] 10-11-2022 12:12-0400 Body weight 128.6 kg PHYSICIAN NO [facility] 08-18-2022 12:04-0400 Body temperature 97.9 [degF] PHYSICIAN NO [facility] 08-18-2022 11:58-0400 Body height 177.8 cm PHYSICIAN NO [facility] 08-18-2022 11:58-0400 Body weight 129.36 kg PHYSICIAN NO [facility] 08-18-2022 11:58-0400 Diastolic blood pressure 115 mm[Hg] PHYSICIAN NO [facility] 08-18-2022 11:58-0400 Heart rate 107 /min PHYSICIAN NO [facility] 08-18-2022 11:58-0400 Respiratory rate 20 /min PHYSICIAN NO [facility] 08-18-2022 11:58-0400 SaO2% (BldA) [Mass fraction] 97 % PHYSICIAN NO [facility] 08-18-2022 11:58-0400 Systolic blood pressure 159 mm[Hg] PHYSICIAN NO [facility] 12-19-2021 18:32-0400 Body temperature 98.1 [degF] PHYSICIAN NO [facility] 12-19-2021 18:32-0400 Diastolic blood pressure 105 mm[Hg] PHYSICIAN NO [facility] 12-19-2021 18:32-0400 Heart rate 106 /min PHYSICIAN NO [facility] 12-19-2021 18:32-0400 Respiratory rate 20 /min PHYSICIAN NO [facility] 12-19-2021 18:32-0400 SaO2% (BldA) [Mass fraction] 96 % PHYSICIAN NO [facility] 12-19-2021 18:32-0400 Systolic blood pressure 153 mm[Hg] PHYSICIAN NO [facility] 12-19-2021 17:44-0400 Body height 177.8 cm PHYSICIAN NO [facility] 12-19-2021 17:44-0400 Body weight 134.55 kg PHYSICIAN NO [facility] 12-17-2021 09:40-0400 Body height 177.8 cm PHYSICIAN NO [facility] 12-17-2021 09:40-0400 Body temperature 98.1 [degF] PHYSICIAN NO [facility] 12-17-2021 09:40-0400 Body weight 134 kg PHYSICIAN NO [facility] 12-17-2021 09:40-0400 Diastolic blood pressure 108 mm[Hg] PHYSICIAN NO [facility] 12-17-2021 09:40-0400 Heart rate 114 /min PHYSICIAN NO [facility] 12-17-2021 09:40-0400 Respiratory rate 20 /min PHYSICIAN NO [facility] 12-17-2021 09:40-0400 SaO2% (BldA) [Mass fraction] 98 % PHYSICIAN NO [facility] 12-17-2021 09:40-0400 Systolic blood pressure 171 mm[Hg] PHYSICIAN NO [facility] 12-02-2021 14:50-0400 Body height 177.8 cm PHYSICIAN NO [facility] 12-02-2021 14:50-0400 Body temperature 98.6 [degF] PHYSICIAN NO [facility] 12-02-2021 14:50-0400 Body weight 133.2 kg PHYSICIAN NO [facility] 12-02-2021 14:50-0400 Diastolic blood pressure 102 mm[Hg] PHYSICIAN NO [facility] 12-02-2021 14:50-0400 Heart rate 117 /min PHYSICIAN NO [facility] 12-02-2021 14:50-0400 Respiratory rate 18 /min PHYSICIAN NO [facility] 12-02-2021 14:50-0400 SaO2% (BldA) [Mass fraction] 98 % PHYSICIAN NO [facility] 12-02-2021 14:50-0400 Systolic blood pressure 174 mm[Hg] PHYSICIAN NO [facility] 06-08-2021 14:28-0400 Heart rate 117 /min Fatoumata Tillman CNP Work Phone: [facility] 06-08-2021 14:28-0400 SaO2% (BldA) [Mass fraction] 95 % Fatoumata Tillman CNP Work Phone: [facility] 06-08-2021 14:22-0400 Body height 177.8 cm Fatoumata Tillman CNP Work Phone: [facility] 06-08-2021 14:22-0400 Body mass index (BMI) [Ratio] 44.77 kg/m2 Fatoumata Tillman CNP Work Phone: [facility] 06-08-2021 14:22-0400 Body temperature 98.1 [degF] Fatoumata Sanchez APRN - SAMPLE EXAMINER Work Phone: [facility] [employer] 06-08-2021 14:22-0400 Body weight 141.52 kg Fatoumata Sancehz HUMANITIES DIVISION CHAIR - SAMPLE EXAMINER Work Phone: [facility] [employer] 06-08-2021 14:22-0400 Diastolic blood pressure 120 mm[Hg] Fatoumata Sanchez HUMANITIES DIVISION CHAIR - SAMPLE EXAMINER Work Phone: [facility] [employer] 06-08-2021 14:22-0400 Respiratory rate 18 /min Fatoumata Sanchez HUMANITIES DIVISION CHAIR - SAMPLE EXAMINER Work Phone: [facility] [employer] 06-08-2021 14:22-0400 Systolic blood pressure 170 mm[Hg] Fatoumata Sanchez HUMANITIES DIVISION CHAIR - SAMPLE EXAMINER Work Phone: [facility] 03-19-2020 23:45-0500 BP Diastolic 101 mm[Hg] [facility] [place] 03-19-2020 23:45-0500 BP Systolic 148 mm[Hg] [facility] [place] 03-19-2020 23:45-0500 Pulse (Heart Rate) 117 /min [facility] 03-19-2020 23:45-0500 Pulse Oximetry 94 % [facility] [place] 03-19-2020 23:45-0500 Respiratory Rate 23 /min [facility] [place] 03-19-2020 19:57-0500 Body Temperature 99.9 [degF] [facility] 03-19-2020 17:38-0500 BMI (Body Mass Index) 45.92 kg/m2 [facility] 03-19-2020 17:38-0500 Body weight 145.15 kg [facility] [place] 03-19-2020 17:38-0500 Height 177.8 cm [facility] [place] 10-21-2019 17:46-0400 BP Diastolic 103 mm[Hg] [facility] [place] 10-21-2019 17:46-0400 BP Systolic 163 mm[Hg] [facility] [place] 10-21-2019 17:37-0400 Pulse (Heart Rate) 109 /min [place] 10-21-2019 17:37-0400 Respiratory Rate 18 /min [place] 10-21-2019 16:02-0400 BMI (Body Mass Index) 44.3 kg/m2 [place] 10-21-2019 16:02-0400 Body Temperature 97 [degF] [place] 10-21-2019 16:02-0400 Body weight 136.08 kg [place] 10-21-2019 16:02-0400 Pulse Oximetry 96 % [place] 02-07-2019 08:18-0500 Body Temperature 97.7 [degF] Dat Jacquelyn [place] 02-07-2019 08:18-0500 BP Diastolic 102 mm[Hg] [place] 02-07-2019 08:18-0500 BP Systolic 132 mm[Hg] [place] 02-07-2019 08:18-0500 Pulse (Heart Rate) 76 /min [place] 02-07-2019 08:18-0500 Pulse Oximetry 96 % [place] 02-07-2019 08:18-0500 Respiratory Rate 16 /min [place] 02-07-2019 04:51-0500 BMI (Body Mass Index) 42.06 kg/m2 Dat Jacquelyn [place] 02-07-2019 04:51-0500 Body weight 129.18 kg Dat [place] 02-06-2019 08:10-0500 Height 175.3 cm [place] Encounters Encounter Date Encounter Type Care Provider Facility Start: 02-27-2024 End: 02-27-2024 Emergency department patient visit Med Koenig Facility:[facility] Start: 02-26-2024 End: 02-26-2024 ambulatory Yana Navas RN [facility] Start: 02-15-2024 End: 02-15-2024 Emergency department patient visit Jenelle Judge Facility:[facility] Start: 07-04-2023 End: 07-04-2023 Emergency department patient visit [facility] Start: 11-17-2022 End: 11-17-2022 ambulatory [facility] Start: 10-31-2022 End: 10-31-2022 ambulatory [facility] Start: 10-11-2022 End: 10-11-2022 Emergency department patient visit PHYSICIAN NO [facility] Work Phone: Start: 08-18-2022 End: 08-18-2022 Emergency department patient visit PHYSICIAN NO [facility] Work Phone: Start: 05-15-2022 End: 05-16-[address] NONE LISTED REQUEST Facility:[facility] Start: 05-11-2022 End: 05-11-[address] NONE LISTED REQUEST Facility:[facility] Start: 01-21-2022 End: 01-21-2022 ambulatory PHYSICIAN NO [facility] Work Phone: Start: 01-21-2022 End: 01-21-2022 Discharged Recurring PHYSICIAN NO [facility] [address] Start: 12-19-2021 End: 12-19-2021 Emergency department patient visit PHYSICIAN NO [facility] Start: 12-17-2021 End: 12-17-2021 Emergency department patient visit PHYSICIAN NO [facility] Start: 12-02-2021 End: 12-02-2021 Emergency department patient visit PHYSICIAN NO [facility] Start: 06-08-2021 End: 06-08-2021 Emergency department patient visit Fatoumata Sanchez APRN - SAMPLE EXAMINER Work Phone: [facility] ED Comment on above: Enteritis (Primary D x) Start: 03-19-2020 End: 03-20-2020 Emergency department patient visit [facility] ED Comment on above: COVID-19 (Primary Dx ) Start: 10-21-2019 End: 10-21-2019 Emergency department patient visit [facility] ED Comment on above: Left Achilles tendin itis (Primary Dx) Start: 02-05-2019 End: 02-07-2019 Evaluation and management of inpatient Dat Jean Baptiste [facility] Comment on above: Ileus [...] abdomen & pelvis w/contrast material Fatoumata Sanchez HUMANITIES DIVISION CHAIR - SAMPLE EXAMINER Work Phone: Start: 06-08-2021 Comprehensive metabo lic panel Fatoumata Sanchez HUMANITIES DIVISION CHAIR - SAMPLE EXAMINER Work Phone: Start: 03-19-2020 Ct thorax w/contrast material Arabella Blandon Work Phone: Start: 03-19-2020 COVID-19 [facility] Work Phone: Start: 03-19-2020 Iaadiadoo influenza [facility] Work Phone: Start: 03-19-2020 Assay of [...] Phone: Start: 02-06-2019 Urinalysis microscop ic only [employer] Work Phone: Start: 02-06-2019 Urnls dip stick/tabl et rgnt auto w/o microscopy [employer] Work Phone: Start: 02-05-2019 Cul bact stool aerob ic isol salmonella&shigell [employer] Work Phone: Start: 02-05-2019 Toxin/antitoxin assa y tissue culture [employer] Work Phone: Start: 02-05-2019 Ct abdomen & pelvis w/contrast material [employer] Work Phone: Start: 02-05-2019 Assay of lactate [employer] Work Phone: Start: 02-05-2019 [facility] lipase [facility] [employer] Work Phone: Start: 02-05-2019 Blood count complete automated [employer] Work Phone: Start: 02-05-2019 Comprehensive metabo lic panel [employer] Work Phone: SARS Antigen (LFIA) PHYSICIA N NO FAMILY Plan of Treatment Date Care Activity Detail Author Start: 02-01-2024 Adult BMI Screening Adult BMI Screen ing [facility] Start: 02-01-2024 Depression Screening Depression Scre ening [facility] Start: 02-01-2024 Tobacco Screening Tobacco Screening [facility] Start: 11-12-2023 Influenza vaccination Influenza Vacc ine [facility] Start: 2023 Screening for malign ant neoplasm of colon Colonoscopy [facility] [employer] Start: 06-08-2022 Creatinine measurement Creatinine mo nitmaryam [facility] Start: 06-08-2022 Potassium monitoring Potassium monit [facility] Start: 03-19-2021 Creatinine measurement Creatinine mo [place] Start: 03-19-2021 Potassium monitoring Potassium monit [place] Start: 11-11-2020 Influenza vaccination Flu vaccine (# 1) [facility] Start: 02-07-2020 Creatinine measurement Creatinine mo [place] Start: 02-07-2020 Potassium monitoring Potassium monit [place] Start: 11-12-2019 Influenza vaccination Flu vaccine (# 1) [place] Start: 06-28-2019 Creatinine monitoring Creatinine mon [place]oring [place] Start: 06-28-2019 Potassium monitoring Potassium monit [place] Start: 11-11-2018 Influenza vaccination Flu vaccine (# 1) [place] Start: 2018 Diabetes screen Diabetes screen [place] Start: 2018 Lipid panel Lipid screen [facility] Start: 2018 Lipid screen Lipid screen [place] Start: 2013 Diabetes screen Diabetes screen [facility] Start: 1997 DTaP,Tdap and Td Vaccines (1 - Tdap) DTaP,Tdap and Td Vaccines (1 - Tdap) [facility] Start: 1997 DTaP/Tdap/Td vaccine (1 - Tdap) DTaP/Tdap/Td vaccine (1 - Tdap) [facility] Start: 1993 HIV screen HIV screen [place] Start: 1993 HIV screening HIV screen [facility] Start: 1990 Depression Screen Depression Screen [facility] Start: 1989 DTaP/Tdap/Td vaccine (1 - Tdap) DTaP/Tdap/Td vaccine (1 - Tdap) [place] Start: 1983 COVID-19 Vaccine (1) COVID-19 Vaccin e (1) [facility] Start: 1978 Hepatitis C screening Hepatitis C sc reen [facility] End: 03-19-2020 Culture, Blood 1 Culture, Blood 1 Microbiology STAT One Time for 1 Occurrences starting 03/19/2020 until 03/19/2020 [facility] Comment on above: One Time for 1 Occur rences starting 03/19/2020 until 03/19/2020 Culture, Blood 1 Culture, Blood 1 Microbiology STAT 03/19/2020 6:00 PM [facility]GA [facility] 12 Lead EKG 12 Lead ECG STAT 03/19/2020 5:53 [facility] Initiate Oxygen Ther apy Protocol Initiate Oxygen Therapy Protocol Respiratory Care Routine Daily until discontinued starting 02/05/2019 [facility] Comment on above: Daily until disconti nued starting 02/05/2019 Nasal Cannula Oxygen Nasal Cannu la Oxygen Respiratory Care STAT Daily until discontinued starting 03/19/2020 [facility] Comment on above: Daily until disconti nued starting 03/19/2020 Patient Education [facility] Work Phone: Patient referral [facility] Work Phone: End: 02-05-2019 Pulse Oximetry Spot Check Pulse Oximetry Spot Check Respiratory Care Routine One Time for 1 Occurrences starting 02/05/2019 until 02/05/2019 [facility] Comment on above: One Time for 1 Occur rences starting 02/05/2019 until 02/05/2019 End: 06-08-2021 Urinalysis with Microscopic Urinalysis with Microscopic Lab STAT One Time for 1 Occurrences starting 06/08/2021 until 06/08/2021 [facility] Work Phone: Comment on above: One Time for 1 Occur rences starting 06/08/2021 until 06/08/2021 Payers Date Payer Category Payer Unknown [id number] 2022 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 [employer] [id number] 1978 Unknown [id number] 1978 Unknown [id number] 1959 Self-pay 1959 Worker's Compensation [id number] Unknown [id number] Unknown [id number] Social History Date Type Detail Facility Start: 10-21-2019 End: 10-04-2022 Tobacco smoking status NHIS [place] Start: 10-21-2019 End: 10-04-2022 Tobacco use and exposure Never used [place] Start: 10-21-2019 End: 06-08-2021 Alcohol intake Current non-drinker of alcohol (finding) [place] Start: 1980 Sex Assigned At Not on file [place] Start: 05-29-2021 End: 06-08-2021 Exposure to SARS-CoV-2 (event) Not sure [place] Start: 12-02-2021 End: 12-19-2021 Tobacco smoking status VTIS Never smoked tobacco (finding) [facility] Start: 1980 Sex Assigned At Male F [facility] End: 09-06-2022 History of tobacco use Current smoker [facility] End: 09-06-2022 History of tobacco use Cigarette Smoker [facility] Start: 01-31-2023 Alcoholic beverage intake Current drinker of alcohol (finding) [facility] Start: 01-31-2023 History of Social function [facility] Start: 01-31-2023 Tobacco use panel [facility] Adolescent depressio n screening assessment 2 [facility] Start: 10-04-2022 Alcohol Comment Social [facility] Start: 09-22-2022 Sex Male (finding) [facility] Clinical Notes 06-08-2021 to 02-26-2024 Telephone [...] (e.g., disoriented, slurred speech) Protocols used: Breathing [id number] documented in this encounter [facility] 02-26-2024 Telephone encounter Note ----- Message from Livia sent at 02/26/2024 7:11 AM EST ----- Contract: Mireya Chino started taking Gabapentin 600 mg last night and this morning he feels dizzy and disoriented with heavy breathing [employer] [facility] 02-26-2024 Telephone encounter Note Contract: [id number] [...] (e.g., disoriented, slurred speech) Protocols used: Breathing [id number] [facility] [employer] [facility] 02-01-2023 Note This report has been cancelled. [facility] 02-01-2023 Note This report has been cancelled. [facility] 11-17-2022 Note Cardiovascular Labor atory [...] week Follow-up with [place] [facility] in the [facility] in the next 2 to 3 months [...] left radial artery was obtained. A 6 Wolof glide sheath was inserted without difficulty. Bilateral [...] INDICATIONS: Abnormal stress test, reduced ejection fraction [facility] 11-17-2022 Note Patient: Henrik stark Procedure Information Date/Time: 11/17/22 1030 Procedure: Coronary angiography (Bilateral) Location: [facility] [address] / [facility] VASCULAR LAB (Cath) Providers: Rafat Garcia [...] consented to blood products. Additional Equipment Requests [facility] 10-31-2022 Note [facility] Cardiology Clinic Note Chief Complaint: Patient here for follow up [facility] for chest pain. He was seen [...] two Further recommendations pending the above Rafat aGrcia MD, MPH, FACC, [facility], [facility] Interventional Cardiology Pager Email: [email or web address] 06-08-2021 Hospital Discharg e Fatoumata Marquez, HUMANITIES DIVISION CHAIR - SAMPLE EXAMINER - 06/08/2021 Increase your fluid intake. Take Bentyl as prescribed. Follow-up with PCP for reevaluation in the next couple of days. Avoid dairy, spicy and fatty foods for the next week. Return here for increased pain, fever, difficulty breathing, vomiting or new or worsening signs or symptoms. The following attachments cannot be sent through Care Everywhere.Gastroenteritis (Faroese)documented in this encounter [employer] Phone: Evaluation note Diagnosis Enteritis- Primary Other and unspecified noninfectious gastroenteritis and colitis documented in this encounter [employer] Phone: evaluation noteNo assessment information available [facility] Work Phone: Hospital Discharge instructions Additional Instructions Rest ice elevate Use the wrist splint for comfort Take ibuprofen every 6 hours for discomfort Follow-up with either [facility] or [facility] Follow-up with [facility] especially if not getting better [facility] Work Phone: Hospital Discharge instructions Additional Instructions Return for new or worsening symptoms Follow-up with family doctor and [facility] Work Phone: Hospital Discharge instructions Additional Instructions Please return to emergency department for any new or worrisome symptoms including any weakness, numbness, headache, vision changes. Follow-up with your family physician as soon as possible.[facility] Work Phone: InstructionsNot on filedocumented in this encounter [facility] Discharge Instructions * Attachments The following attachments cannot be sent through Care Everywhere. * Tendon Injury (Tendinopathy) (Faroese) documented in this encounter* Instructions* Lobito Sidhu [...] Everywhere. * Coronavirus Disease (COVID-19): General Info (Faroese) * Coronavirus Disease (COVID-19): Isolation (Faroese) documented in this encounter* Instructions* Bambi Segal [...] Where can you learn more? Go to [email or web address] and sign in to your Yap account. Enter M933 in the Search Health Information box to learn more about Learning About Ileus. If you do not have an account, please click on the Sign Up Now link. Current as of: January 17, 2018 Content Version: [id number] [employer]. Care instructions adapted under license by [employer]. If youhave questions about a medical condition or this instruction, always ask your healthcare professional. [employer] disclaims any warranty or liability for your use of this information. 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 Expl anation Advance Directives and Living Will Power of Char House Supervisor Latest Code Status on File Code Status Date Activated Date Inactivated Comments Full Code 02/05/2019 9:40 PM 02/07/2019 3:36 PM Full Code 06/22/2016 5:58 AM 06/22/2016 7:53 PM Documents on File Type Date Recorded 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 Internal Medicine Discharge Summary Patient ID: Henrik Cavanaugh [id number] Admission date: 02/05/2019 Discharge date: 02/07/2019 [...] no PCP but will be referred to [facility]. Discharge Exam: GEN: Awake, alert and oriented [...] Discharge Medications: Henrik Cavanaugh Home Medication Instructions [id number] Printed on:02/07/19 1147 Medication Information amLODIPine (NORVASC) [...] care plan Coordination with Case Management and/or [facility] Former Coordination of care with Consultants (if applicable) [...] of care. To: __Dr. Jean Baptiste From: [facility] Sender:_KSchwochowRN Phone Number:_[phone] This request is: Urgent - No Information [...] you. Signature Date Time Jamir Deluca MSW, [employer]ER - 02/06/2019 10:51 AM EST Social Work intial Assessment/Discharge Plan Diagnosis: Abdominal pain with Lleus Met with: Patient PCP: None. [facility] Payment Source: Private. No insurance. Advance Directives: None Code Status: Full Mental Status: Alert and oriented Living Arrangement: Patient lives at home in [place] with a roommate Support Systems: Roommate and [...] Needs/Discharge Plan: Patient will return home to [place] where he resides with a roommate. He [...] 5. Fluid Accumulation-No significant fluid accumulation, 6. Pilot Fuel Engineer Strength-Not measured Nutrition Risk Level: Moderate Nutrient Needs: Estimated Daily Total Kcal: 5171-4898(12-17) Estimated Daily Protein (g): 95-109(1.3-1.5) Estimated Daily [...] Weight Change: , 2% loss from 290# [place] Body Wt: 160 lb (72.6 kg), % [place] Body 178% BMI Classification: BMI > or [...] Patient/Family Education, Monitor Bowel Function Contact Number: [phone] Marija Horta RN - 02/06/2019 4:31 AM [...] oriented to room, pr watching tv when sole ruffer left room documented in this encounter Chief [...] Inactive Member Role Status Dates Isabel Rodas LIVESTOCK FARMER-C Primary Care Provider Active Socorro Osullivan MD Emergency Provider Active Nut Sheller Relationship Specialty Start Date End Date Isabel Rodas APRN-SAMPLE EXAMINER [address] [place] [address] PCP - General Family Medicine 10/04/22 Goals [...] DATE CREATED AUTHOR AUTHOR'S ORGANIZ ATION 03/04/2023 [facility] DATE CREATED AUTHOR AUTHOR'S ORGANIZ ATION 07/06/2023 [facility] DATE CREATED AUTHOR AUTHOR'S ORGANIZ ATION 03/09/2024 [facility] FOR RECORDS PERTAINING TO [...] PRIMARY CLINICAL RECORDS. [facility]. provides no warranty or guarantee of the accuracy or completeness of information in this document.
--- NOTE | 2024-03-29 06:54 | MR_ITS ---
The [address] [address] Patient Name: LAWSON LOPEZ MRN: [id number] date: 1980 Sex: M Assigned Patient Location: MRI Current Patient Location: MRI Accession/Order Number: [id number] Exam Date: 03/29/2024 07:00 Report Date: 03/29/2024 13:27 At the request of: DUARTE KRUEGER Procedure: MR knee RT wo con EXAMINATION: MR knee RT wo con HISTORY: Internal Derangement Right Knee ; pain after falling COMPARISON: No relevant comparison available. TECHNIQUE: A complete multi-planar MRI was performed. FINDINGS: MEDIAL COMPARTMENT MEDIAL MENISCUS: Significant increased T2 signal within the posterior junction and horn with thin linear extension to the posterior wall suspected to represent a tear. CARTILAGE: No visible defect. BONES: No marrow pathology, fracture, or significant arthropathy. MCL AND MEDIAL CAPSULE: Normal medial collateral ligament and medial capsule. LATERAL COMPARTMENT LATERAL MENISCUS: No visible tear or significant degeneration. CARTILAGE: No visible defect. BONES: No marrow pathology, fracture, or significant arthropathy. LCL/POSTEROLAT COMPLEX: Normal lateral collateral ligament, fascicles, lateral capsule and ligaments. ANTERIOR COMPARTMENT PATELLA: No marrow pathology, fracture, or significant arthropathy. CARTILAGE: No visible defect. TENDONS: Normal. EFFUSION: Small joint effusion. ACL: Normal appearing ligament. PCL: Normal appearing ligament. MENISCOFEMORAL: Normal meniscofemoral ligaments. OTHER: Negative. MR/MR knee RT wo con IMPRESSION: 1. Suspected prominent intrasubstance degeneration with horizontal tear involving the posterior junction and horn of the medial meniscus. 2. Small joint effusion. Electronically authenticated by: DUARTE JACKSON Date: 03/29/2024 13:27
== END 2024-03-29 06:43 | disposition home or self-care (01) ==
LOC: MRI 06:43
PROVIDERS: PCP Nurse Practitioner; Visit Provider Orthopaedic Surgery
DX: M23.91 Unspecified internal derangement of right knee (principal); S83.241A Other tear of medial meniscus, current injury, right knee, initial encounter; M25.461 Effusion, right knee
CPT/HCPCS: 73721

== ENCOUNTER 2024-06-14 07:32 | Emergency (ER) | payer OTHER, SELFPAY ==
[2024-06-14 07:37] VITALS: BP 167/111; PULSE 98; TEMP 36.4; O2SAT 96; BMI 41.6
--- NOTE | 2024-06-14 07:52 | ED_ITS ---
HPI HPI - General Adult General Chief complaint: Extremity Problem, Nontraumatic Stated complaint: LOWER EXTREMITY PAIN Time Seen by Provider: 06/14/24 07:50 Source: patient Mode of arrival: walk-in History of Present Illness HPI narrative: Patient is a 44-year-old male who is presenting to the ER with acute on chronic right knee pain. Patient had no injury yesterday. Patient said he was having more pain and swelling in medial inferior pain today. Patient has a cane at home. Patient does not want crutches. Patient took nothing for his pain this morning. Patient is at bedside. Patient has seen Dr. Matias for 5 times, he is at x-rays and MRI. Patient has had a cortisone injection. Patient says he has nothing at home for pain. Patient has ice. Patient did not go to work today. Patient needs a work note. 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 All systems are negative except as noted/marked. All systems reviewed and otherwise negative. Nurses note and vital signs reviewed and patient is not hypoxic. Patient is hypertensive, patient did not take his blood pressure medicine this morning. Patient takes 2 blood pressure pills, cholesterol and aspirin. General: The patient appears well and in no apparent distress. Patient is resting comfortably on cart. Patient is not toxic, lethargic, or listless Skin: Warm, dry, no pallor noted. There is no rash noted. No petechiae, purpura. Head: Normocephalic, atraumatic Eye: Normal conjunctiva, no drainage, EOMI. PERRL Ears, Nose, Mouth, and Throat: oral mucosa is moist. Nares patent. Mouth without vesicles. Cardiovascular: Regular Rate and Rhythm, no murmur, gallop, rub Respiratory: Patient is in no distress, no accessory muscle use, lungs are clear to auscultation, no wheezing, rales or rhonchi Back: non-tender, GI: Soft, obese, no tenderness Musculoskeletal: Patient has full range of motion of all of the extremities except to the right knee. Patient has mild joint effusion to the right inferior medial knee, patient has moderate pain with active flexion extension of the right knee. Patient can flex up to 90 degrees, and has full extension. Crepitus noted with flexion extension. No redness, no erythema, no signs of septic joint. No motor, sensory, or focal neurological deficits Neurological: A&O x4, normal speech Psychiatric: Cooperative Related Data Previous Rx's ?Medication ?Instructions ?Recorded amlodipine 10 mg tablet 10 mg PO DAILY #30 tabs 09/06/22 aspirin 81 mg chewable tablet 81 mg PO DAILY #30 tabs 09/06/22 atorvastatin 40 mg tablet (Lipitor) 40 mg PO DAILY #30 tabs 09/06/22 metoprolol tartrate 50 mg tablet 25 mg (1/2 x 50 mg) PO BID #30 tabs 09/06/22 (Lopressor) Allergies Allergy/AdvReac Type Severity Reaction Status Date / Time amoxicillin AdvReac Vomiting Verified 06/14/24 07:36 prednisone AdvReac Shakiness Verified 06/14/24 07:36 Opioid HPI Opioid Management Most Recent Opioid Data: Last Pain Scale 6 06/14/24 08:50 06/14/24 Last MAY Pain Assessment 06/14/24 08:50 [facility] Medical History (Updated 06/14/24 @ 08:39 by Tejinder Cabrera MD) Syncope and collapse ?R55 - Syncope and collapse (ICD-10) Tobacco abuse ?Z72.0 - Tobacco use (ICD-10) Dyslipidemia ?E78.5 - Hyperlipidemia, unspecified (ICD-10) HTN (hypertension) ?I10 - Essential (primary) hypertension (ICD-10) Social History Smoking status: Former smoker Non-prescribed substance use: former substance user Non-prescribed substance use details: cocaine Little interest or pleasure in doing things: not at all Feeling down, depressed, or hopeless: not at all Exam Constitutional Vital Signs, click to edit/add: Last Vital Signs Temp 97.5 F L 06/14/24 07:37 Pulse 98 H 06/14/24 07:37 Resp 18 06/14/24 07:37 BP 167/111 H 06/14/24 07:37 Pulse Ox 96 06/14/24 07:37 O2 Del Method Room Air 06/14/24 07:37 Course Vital Signs Vital signs: Vital Signs Temperature 97.5 F L 06/14/24 07:37 Pulse Rate 98 H 06/14/24 07:37 Respiratory Rate 18 06/14/24 07:37 Blood Pressure 167/111 H 06/14/24 07:37 Pulse Oximetry 96 06/14/24 07:37 Oxygen Delivery Method Room Air 06/14/24 07:37 Temperature 97.5 F L 06/14/24 07:37 Pulse Rate 98 H 06/14/24 07:37 Respiratory Rate 18 06/14/24 07:37 Blood Pressure 167/111 H 06/14/24 07:37 Pulse Oximetry 96 06/14/24 07:37 Oxygen Delivery Method Room Air 06/14/24 07:37 Medical Decision Making MDM Narrative Medical decision making narrative: Patient is having acute on chronic right knee pain. Patient has an appointment with Dr. Matos on Monday. Patient was given Tylenol and Motrin in the ER. Patient says he has no Tylenol or Motrin at home. Education on ice, using Tylenol and anti-inflammatories at home was discussed. Patient will follow up with PCP, no questions at discharge. Patient has a cane at home. Patient was offered crutches. Patient does not want crutches. Patient did not go to work today, patient needs a work note. Discharge Plan Discharge Stand Alone Forms: Work/School Release Chief Complaint: Extremity Problem, Nontraumatic Clinical Impression: Chronic pain of right knee Patient Disposition: Home, Self-Care Time of Disposition Decision: 08:38 Condition: Fair Prescriptions / Home Meds: No Action aspirin 81 mg tablet,chewable 81 mg PO DAILY Qty: 30 0RF amlodipine 10 mg tablet 10 mg PO DAILY Qty: 30 0RF metoprolol tartrate [Lopressor] 50 mg tablet 25 mg PO BID Qty: 30 0RF atorvastatin [Lipitor] 40 mg tablet 40 mg PO DAILY Qty: 30 0RF Print Language: Nepalese Instructions: Pain Management (ED), Knee Pain (ED), Meniscus Tear (ED) Additional Instructions: Alternate Tylenol and either Motrin, Advil, or ibuprofen every 4 hours to help with pain. Maximum dose of Tylenol is 3000 mg a day. Maximum dose of either Motrin, Advil, or ibuprofen is 2400 mg a day. You may substitute Aleve instead if you wish, and take 2 Aleve in the morning and 2 Aleve at nighttime as discussed. Do not take Aleve with other anti- inflammatories. The most important thing for inflammation is ice 20 minutes on, 20 minutes off until you follow-up with Dr. Chinchilla on Monday. Referrals: ELIAS DUKES [Primary Care Provider] - 1 week
[2024-06-14] MEDS: IBUPROFEN 400 MG TABLET 800 MG PO (08:49)
[2024-06-14] MEDS: ACETAMINOPHEN 500 MG TABLET 1000 MG PO (08:50)
== END 2024-06-14 08:58 | disposition home or self-care (01) ==
PROVIDERS: Emergency Provider Emergency Medicine; PCP Nurse Practitioner
DX: M25.561 Pain in right knee (principal)
CPT/HCPCS: 99282

== ENCOUNTER 2024-06-21 08:55 | Outpatient (OUT) | payer OTHER, SELFPAY ==
--- NOTE | 2024-06-21 08:59 | XR_ITS ---
The [address] [address] Patient Name: LAWSON LOPEZ MRN: [id number] date: 1980 Sex: M Assigned Patient Location: SURGOUT Current Patient Location: LAB Accession/Order Number: [id number] Exam Date: 06/21/2024 11:22 Report Date: 06/21/2024 11:22 At the request of: DUARTE KRUEGER MD Procedure: XR chest 2V Chest 2 views CLINICAL HISTORY: Preop exam COMPARISON: Chest 08/05/2023 FINDINGS: Heart normal size. Lungs are clear. No free air. XR/XR chest 2V IMPRESSION: NO ACUTE CARDIOPULMONARY ABNORMALITY. Impression dictated by: Wayne Anguiano Jr., D.ODomitila06/21/2024 11:22 AM Dictation [facility] Electronically authenticated by: [id number] Y Date: 06/21/2024 11:22
--- NOTE | 2024-06-21 08:59 | ECG_ITS ---
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 Measurements Intervals Hughes Rate: 99 P: 56 UT: 166 QRS: -36 QRSD: 86 T: 84 QT: 331 QTc: 425 Interpretive Statements SINUS RHYTHM MARKED LEFT AXIS DEVIATION [QRS AXIS < -30] PATTERN CONSISTENT WITH PULMONARY DISEASE NONSPECIFIC T-WAVE ABNORMALITY Compared to ECG 02/26/2024 08:10:44 T-wave abnormality now present Electronically Signed On 06-22-2024 10:30:16 EDT by NIKO MCGARRY M.D.
--- OUTSIDE RECORDS SUMMARY | 2024-06-21 09:10 | XMS_ITS | CCD ---
Author Organization [facility] Care Team Providers Care Fisher Scallop Name Role Phone Unavailable Primary Care Provider Unavailabl e Carina Hernandez Primary Care Provider Unavailable Primary Care Provider Unavailabl e NO FAMILY, PHYSICIAN Primary Care Provider Unava ilARSALAN Hurtado Emergency Provider Alfie [facility] Jenelle Barrow Emergency Provider [phone] MEENAKSHI Schmidt Emergency Provider [phone] NO FAMILY, PHYSICIAN Primary Care Provider Unava ilARSALAN Hurtado Emergency Provider [phone] Alfie [facility] Jenelle Emergency Provider MEENAKSHI Schmidt Emergency Provider [...] EHAB Referring Unavailable Isabel Vázquez Primary Care [facility] er Med Koenig Admitting Unavailable Isabel Rodas Primary Care Unavailable Med Koenig Attending Unavailable Jenelle Judge Attending Unavailable Jenelle Judge Admitting Unavailable Isabel Rodas Primary Care Unavailable Allergies Allergy Classification Reported Allergen(s) Allergy Type Date of Onset Reaction(s) Facility (11 sources) Amoxicillin; Translations: [AMOXICILLIN] Drug Allergy 6 Unknown Reaction [place] (6 sources) fentaNYL; Translations: [FENTANYL] Drug Allergy 9 [place] (11 sources) predniSONE; Translations: [PREDNISONE] Drug Allergy 6 Other (See Comments) [place] (1 source) Amoxicillin Drug Allergy 3 [facility] (1 source) predniSONE Drug Allergy 3 [facility] (1 source) amLODIPine; Translations: [AMLODIPINE] Drug Allergy 3 [facility] (1 source) Amoxicillin Drug Allergy 4 [facility] (1 source) predniSONE Drug Allergy 4 [facility] Medications Current Medications Medication Drug Class(es) Dates Sig (Normalized) Sig (Original) acetaminophen 500 mg oral tablet (4 sources) Start: 03-19-2020 acetaminophen (TYLENOL) tablet 1,000 mg Start: 03-19-2020 take 2 tablets by mo [facility] every six hours as needed for pain [...] Start: 02-08-2019 take 1 tablet by tracy once daily amLODIPine (NORVASC) 5 MG tablet Take 1 tablet by mouth daily 30 tablet 0 02/08/2019 Active Start: 02-08-2019 take 1 tablet by tracy once daily amLODIPine (NORVASC) 5 MG tablet [...] Start: 06-08-2021 take 1 capsule by mo [facility] four times daily dicyclomine (BENTYL) 10 MG capsule Take 1 capsule by mouth 4 times daily 40 capsule 0 06/08/2021 Active Start: 02-05-2019 take 1 capsule by mo ut three times daily as needed for pain [...] gap [Moles/Vol] 12.9 mmol/L Normal 6.0-15.0 [facility] Comment on above: Performed By: #### C BC, BMP, PTT, PT, HS TROP #### [facility] [address] Calcium [Mass/Vol] 9.2 mg/dL Normal 8.6-10.3 [facility] Comment on above: Performed By: #### C BC, BMP, PTT, PT, HS TROP #### [facility] [address] [place] [address] [place] Chloride [Moles/Vol] 103 mmol/L Normal 98-107 [facility] Comment on above: Performed By: #### C BC, BMP, PTT, PT, HS TROP #### [facility] [address] CO2 [Moles/Vol] 26.4 mmol/L Normal 21.0-31.0 The [facility] Comment on above: Performed By: #### C BC, BMP, PTT, PT, HS TROP #### [facility] [address] [place] [address] [place] Creatinine [Mass/Vol] 0.89 mg/dL Normal 0.70-1.30 [facility] Comment on above: Performed By: #### C BC, BMP, PTT, PT, HS TROP #### [place] [address] [place] Creatinine Clr Calc Pharmacy 140.18 Normal [facility] Comment on above: Result Comment: PERF ORMED BY: [place] [address] PATHOLOGIST KEY ATTENDANT FRANK ARAUJO M.D. Performed By: #### C BC, BMP, PTT, PT, HS TROP #### [place] [address] [place] GFR/1.73 sq M.predicted MDRD (S/P/Bld) [Vol rate/Area] mL/min/{1.73_m2} Normal [facility] Comment on above: Performed By: #### C BC, BMP, PTT, PT, HS TROP #### [facility] [address] Glucose [Mass/Vol] 108 mg/dL High 70-100 The [facility] Comment on above: Result Comment: [facility] [place] Glucose Reference Range is dependent on time and content of last meal. Glucose of more than 200 mg/dL in a nonstressed, ambulatory subject supports the diagnosis of Diabetes Mellitus. ADA recommended reference range Performed By: #### C BC, BMP, PTT, PT, HS TROP #### [facility] [address] [place] [id number] [facility] Potassium [Moles/Vol] 4.3 mmol/L Normal 3.5-5.1 The [facility] Comment on above: Performed By: #### C BC, BMP, PTT, PT, HS TROP #### [facility] [address] Sodium [Moles/Vol] 138 mmol/L Normal 136-145 [facility] Comment on above: Performed By: #### C BC, BMP, PTT, PT, HS TROP #### [facility] [address] [place] [id number] [facility] Urea nitrogen [Mass/Vol] 10 mg/dL Normal 7-25 [facility] Comment on above: Performed By: #### C BC, BMP, PTT, PT, HS TROP #### [facility] [address] angio neckon 02-27-[address] [facility] [address] CT Scan Report Signed Patient: Henrik Cavanaugh MR#: [id number] 168 : 1980 Acct:[id number] Age/Sex: 44 / M ADM Date: 02/27/24 Loc: ER Room: Type: [facility] ER Attending Dr: Copies to: Med Koenig DO Ordering Provider: Med Koenig DO Date of Service: 02/27/24 CT/CT head/brain wo con: r/o post circ stroke ([id number]) CT/CT angio neck: r/o post circ stroke ([id number]) CT/CT angio head: r/o post circ stroke [...] patent Posterior cerebral arteries: patent. 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 Intracranial segments of the internal carotid arteries: [...] Anguiano Jr., D.O.02/27/2024 9:42 AM Dictation Location: [place] [address] Transcribed By: [facility] 02/27/24 0942 Dictated By: Wayne Anguiano Jr, DO 02/27/24 0938 Signed By: 02/27/24941 Normal [facility] Complete Blood Count Auto Di ffon 02-27-2024 Basophils (Bld) [#/Vol] 0.1 10*3/uL Normal 0.0-0.2 The [facility] Comment on above: Result Comment: PERF ORMED BY: [place] [address] PATHOLOGIST KEY ATTENDANT FRANK ARAUJO M.D. Performed By: #### C BC, BMP, PTT, PT, HS TROP #### [address] Basophils/100 WBC (Bld) 1.1 % Normal . [facility] Comment on above: Performed By: #### C BC, BMP, PTT, PT, HS TROP #### [address] Eosinophils (Bld) [#/Vol] 0.2 10*3/uL Normal 0.0-0.45 [facility] Comment on above: Performed By: #### C BC, BMP, PTT, PT, HS TROP #### [address] Eosinophils/100 WBC (Bld) 2.7 % Normal . [facility] Comment on above: Performed By: #### C BC, BMP, PTT, PT, HS TROP #### [address] Erythrocyte distribution width (RBC) [Ratio] 12.9 % Normal 12.0-14.8 The [facility] Comment on above: Performed By: #### C BC, BMP, PTT, PT, HS TROP #### [address] Hematocrit (Bld) [Volume fraction] 46.1 % Normal 38.8-50.0 [facility] Comment on above: Performed By: #### C BC, BMP, PTT, PT, HS TROP #### [address] Hemoglobin (Bld) [Mass/Vol] 16.0 g/dL Normal 13.0-17.0 [facility] Comment on above: Performed By: #### C BC, BMP, PTT, PT, HS TROP #### [address] Lymphocytes (Bld) [#/Vol] 1.9 10*3/uL Normal 1.00-4.8 [facility] Comment on above: Performed By: #### C BC, BMP, PTT, PT, HS TROP #### [address] Lymphocytes/100 WBC (Bld) 22.3 % Normal . [facility] Comment on above: Performed By: #### C BC, BMP, PTT, PT, HS TROP #### [address] MCH (RBC) [Entitic mass] 30.7 pg Normal 27.5-35.2 [facility] Comment on above: Performed By: #### C BC, BMP, PTT, PT, HS TROP #### [address] MCV (RBC) [Entitic vol] 88.3 fL Normal 83.5-101 [facility] Comment on above: Performed By: #### C BC, BMP, PTT, PT, HS TROP #### [address] Mean Corpuscular HGB Conc 34.8 g/dL Normal 32.5-35.6 [facility] Comment on above: Performed By: #### C BC, BMP, PTT, PT, HS TROP #### [address] Monocytes (Bld) [#/Vol] 0.7 10*3/uL Normal 0.0-0.8 [facility] Comment on above: Performed By: #### C BC, BMP, PTT, PT, HS TROP #### [address] Monocytes/100 WBC (Bld) 19.04 % Normal 0.00-20.00 [facility] Comment on above: Performed By: #### C BC, BMP, PTT, PT, HS TROP #### [address] [address] [place] Monocytes/100 WBC (Bld) 8.7 % Normal . [facility] Comment on above: Performed By: #### C BC, BMP, PTT, PT, HS TROP #### [facility] [address] Neutrophils (Bld) [#/Vol] 5.5 10*3/uL Normal 1.8-7.7 [facility] Comment on above: Performed By: #### C BC, BMP, PTT, PT, HS TROP #### [facility] [address] Neutrophils/100 WBC (Bld) 65.2 % Normal . [facility] Comment on above: Performed By: #### C BC, BMP, PTT, PT, HS TROP #### [address] NRBC% 0.2 /100{WBC} Normal 0-0.5 The [facility] Comment on above: Performed By: #### C BC, BMP, PTT, PT, HS TROP #### [facility] [address] [place] [address] [place] Platelet mean volume (Bld) [Entitic vol] 8.8 fL Normal 6.6-10.1 The [facility] Comment on above: Performed By: #### C BC, BMP, PTT, PT, HS TROP #### [facility] [address] [place] [address] [place] Platelets (Bld) [#/Vol] 230 10*3/uL Normal 150-450 [facility] Comment on above: Performed By: #### C BC, BMP, PTT, PT, HS TROP #### [facility] [address] [place] [address] [place] RBC (Bld) [#/Vol] 5.22 10*6/uL Normal 3.90-5.60 The [facility] Comment on above: Performed By: #### C BC, BMP, PTT, PT, HS TROP #### [place] [address] [place] WBC (Bld) [#/Vol] 8.5 10*3/uL Normal 4.1-10.5 [facility] Comment on above: Performed By: #### C BC, BMP, PTT, PT, HS TROP #### [place] [id number] [facility] ECG 12 lead ECGon 02-27-[address] [facility] [place] [address] [place] [address] Electrocardiograph Report Signed Patient: Henrik Cavanaugh MR#: [id number] 168 : 1980 Acct:[id number] Age/Sex: 44 / M ADM Date: 02/27/24 Loc: ER Room: Type: [facility] ER Attending Dr: Ordering Provider: Med [...] fascicular block Confirmed by Med Koenig DO ([id number]) on 02/27/2024 3:20:31 PM Referred By: Electronically Signed By: Med Koenig DO Transcribed By: MUS Signed By Med Koenig DO 1520 Normal [facility] Partial Thromboplastin Timeo n 02-27-2024 aPTT Coag (Bld) [Time] 29.9 s Normal 25.1-36.5 The [facility] Comment on above: Result Comment: A he matocrit value greater than 55% may lead to inaccurate results in coagulation testing. Patients having hematocrit values >55% require a special collection tube for coagulation studies. Please contact the laboratory at [phone] for redraw instructions. PERFORMED BY: [place] [id number] PATHOLOGIST KEY ATTENDANT FRANK ARAUJO M.D. Performed By: #### C BC, BMP, PTT, PT, HS TROP #### [place] [id number] [facility] Prothrombin Time INRon 02-26 INR Coag (PPP) [Relative time] 0.9 {INR} Normal [facility] Comment on above: Result [...] BC, BMP, PTT, PT, HS TROP #### [address] PT Coag (PPP) [Time] 10.8 s Normal 9.0-12.9 The [facility] Comment on above: Result Comment: A he matocrit value greater than 55% may lead to inaccurate results in coagulation testing. Patients having hematocrit values >55% require a special collection tube for coagulation studies. Please contact the laboratory at [phone] for redraw instructions. Performed By: #### C BC, BMP, PTT, PT, HS TROP #### [address] Troponin I High Sensitivityo n 02-27-2024 Troponin I High Sensitivity 12.7 pg/mL Normal 0.0-20.0 The [facility] Comment on above: Result Comment: PERF ORMED BY: [place] [address] PATHOLOGIST KEY ATTENDANT FRANK ARAUJO M.D. Performed By: #### C BC, BMP, PTT, PT, HS TROP #### [place] [id number] [facility] Urinalysison 02-27-2024 Appearance (U) Clear Normal Clear The [facility] Comment on above: Order Comment: Name Collection Type:: Clean-Voided Midstream Performed By: #### U A #### [address] Bilirubin,Urine Negative Normal Negative The [facility] Comment on above: Order Comment: Name Collection Type:: Clean-Voided Midstream Performed By: #### U A #### [place] [address] [place] Color (U) Light-Yellow Normal Yellow The [facility] Comment on above: Order Comment: Name Collection Type:: Clean-Voided Midstream Performed By: #### U A #### [address] Glucose Ql (U) Normal Normal Normal The [facility] Comment on above: Order Comment: Name Collection Type:: Clean-Voided Midstream Performed By: #### U A #### [address] Ketones Ql (U) Negative Normal Negative The [facility] Comment on above: Order Comment: Name Collection Type:: Clean-Voided Midstream Performed By: #### U A #### [address] Leukocyte esterase Test strip Ql (U) Negative Normal Negative [facility] Comment on above: Order Comment: Name Collection Type:: Clean-Voided Midstream Performed By: #### U A #### [place] [address] [place] Nitrite,Urine Negative Normal Negative The [facility] Comment on above: Order Comment: Name Collection Type:: Clean-Voided Midstream Performed By: #### U A #### [place] [address] [place] Occult Blood,Urine Negative Normal Negative [facility] Comment on above: Order Comment: Name Collection Type:: Clean-Voided Midstream Result Comment: PERF ORMED BY: [place] [address] PATHOLOGIST KEY ATTENDANT FRANK ARAUJO M.D. Performed By: #### U A #### [place] [address] [place] pH (U) 5.5 [pH] Normal 5.0-9.0 The [facility] Comment on above: Order Comment: Name Collection Type:: Clean-Voided Midstream Performed By: #### U A #### [address] Protein,Urine Negative Normal Negative The [facility] Comment on above: Order Comment: Name Collection Type:: Clean-Voided Midstream Performed By: #### U A #### [address] Specificy [place],Urine 1.033 High 1.001-1.030 [facility] Comment on above: Order Comment: Name Collection Type:: Clean-Voided Midstream Performed By: #### U A #### [address] Urobilinogen,Urine Normal Normal Normal [facility] Comment on above: Order Comment: Name Collection Type:: Clean-Voided Midstream Performed By: #### U A #### [address] XR chest 1V portableon 02-26 X[address] [facility] [place] [address] [place] [address] XRay Report Signed Patient: Henrik Cavanaugh MR#: [id number] 168 : 1980 Acct:[id number] Age/Sex: 44 / M ADM Date: 02/27/24 [...] ACUTE FINDINGS Impression dictated by: Wayne Anguiano Jr. DDomitilaODomitila02/27/2024 8:28 AM Dictation Location: [place] [address] Transcribed By: [facility] 02/27/24 0828 Dictated By: Wayne Anguiano Jr, DO 02/27/24827 Signed By: 02/27/24827 Normal [facility] XR foot RT min 3V*on 024 XR foot RT min 3V* [facility] [place] [address] [place] [address] XRay Report Signed Patient: Henrik Cavanaugh MR#: [id number] 168 : 1980 Acct:[id number] Age/Sex: 44 / M ADM Date: 02/15/24 Loc: ER Room: Type: [facility] ER Attending Dr: Copies to: GRISELDA [...] Tejinder Alcantara M.D.02/15/2024 12:47 PM Dictation Location: [place] [address] Transcribed By: [facility] 02/15/24 1247 Dictated By: Tejinder Alcantara DO 02/15/24 1245 Signed By: 02/15/24 1247 Normal [facility] CBC with Diffon 07-04-2023 Abs. Basophil 0.06 k/uL Normal 0.00-0.20 [facility] Comment on above: Performed By: #### C RAMÓN MELTON, CP #### [facility] [address] [place] [address] Gas Specialist: Alex Amador MD Abs.Imm.Granulocyte 0.03 k/uL Normal 0.00-0.30 [facility] Comment on above: Performed By: #### C RAMÓN MELTON, CP #### [facility] [address] [place] [address] Gas Specialist: Alex Amador MD Abs.Neutrophil (Seg) 7.00 k/uL Normal 1.50-8.10 [facility] Comment on above: Performed By: #### C DP LIP, CP #### [address] [place], [facility] Gas Specialist: Alex Amador MD Basophils/100 WBC (Bld) 1 % Normal 0-2 [facility] Comment on above: Performed By: #### C DP LIP, CP #### [address] [place], [place] [address] Gas Specialist: Alex Amador MD Eosinophils (Bld) [#/Vol] 0.17 10*3/uL Normal 0.00-0.44 [facility] Comment on above: Performed By: #### C RAMÓN MELTON, CP #### [address] [place], [place] [address] Gas Specialist: Alex Amador MD Eosinophils/100 WBC (Bld) 2 % Normal 1-4 [facility] Comment on above: Performed By: #### C RAMÓN MELTON, CP #### [address] [place], [place] [address] Gas Specialist: Alex Amador MD Erythrocyte distribution width (RBC) [Ratio] 12.4 % Normal 11.8-14.4 [facility] Comment on above: Performed By: #### C DP LIP, CP #### [address] [place], [place] [address] Gas Specialist: Alex Amador MD Hematocrit (Bld) [Volume fraction] 44.6 % Normal 40.7-50.3 [facility] Comment on above: Performed By: #### C DP LIP, CP #### [address] [place], [facility] Gas Specialist: Alex Amador MD Hemoglobin (Bld) [Mass/Vol] 15.5 g/dL Normal 13.0-17.0 [facility] Comment on above: Performed By: #### C RAMÓN MELTON, CP #### [address] [place] [address] Gas Specialist: Alex Amador MD Immature granulocytes/100 WBC (Bld) 0 % Normal 0 [facility] Comment on above: Performed By: #### C LINH LIP, CP #### [address] [place], [facility] Gas Specialist: Alex Amador MD Lymphocytes (Bld) [#/Vol] 1.59 10*3/uL Normal 1.10-3.70 [facility] Comment on above: Performed By: #### C RAMÓN MELTON, CP #### [address] [place], [place] [address] Gas Specialist: Alex Amador MD Lymphocytes/100 WBC (Bld) 17 % Low 24-43 [facility] Comment on above: Performed By: #### C RAMÓN MELTON, CP #### [address] [place], [facility] Gas Specialist: Alex Amador MD MCH (RBC) [Entitic mass] 30.3 pg Normal 25.2-33.5 [facility] Comment on above: Performed By: #### C RAMÓN MELTON, CP #### [address] [place], [facility] Gas Specialist: Alex Amador MD MCHC (RBC) [Mass/Vol] 34.8 g/dL Normal 28.4-34.8 [facility] Comment on above: Performed By: #### C LINH LIP, CP #### [address] [place], [place] [id number] Gas Specialist: Alex Amador MD MCV (RBC) [Entitic vol] 87.1 fL Normal 82.6-102.9 [facility] Comment on above: Performed By: #### C DP, LIP, CP #### [facility] [address] [place] [address] [place], [place] [address] Gas Specialist: Alex Amador MD Monocytes (Bld) [#/Vol] 0.78 10*3/uL Normal 0.10-1.20 [facility] Comment on above: Performed By: #### C DP, LIP, CP #### [address] [place], [facility] Gas Specialist: Alex Amador MD Monocytes/100 WBC (Bld) 8 % Normal 3-12 [facility] Comment on above: Performed By: #### C DP LIP, CP #### [address] [place], [place] [address] Gas Specialist: Alex Amador MD Neutrophil (Seg) 72 % High 36-65 [facility] Comment on above: Performed By: #### C DP LIP, CP #### [address] [place], [facility] Gas Specialist: Alex Amador MD NRBC Automated 0.0 per 100 WBC Normal 0.0 [facility] Comment on above: Performed By: #### C DP LIP, CP #### [address] [place], [place] [address] Gas Specialist: Alex Amador MD Platelet mean volume (Bld) [Entitic vol] 10.4 fL Normal 8.1-13.5 [facility] Comment on above: Performed By: #### C DP, LIP, CP #### [address] [place], [facility] Gas Specialist: Alex Amador MD Platelets (Bld) [#/Vol] 239 10*3/uL Normal 138-453 [facility] Comment on above: Performed By: #### C DP, LIP, CP #### [facility] [address] [place], [place] [id number] Gas Specialist: Alex Amador MD RBC (Bld) [#/Vol] 5.12 10*6/uL Normal 4.21-5.77 [facility] Comment on above: Performed By: #### C DP, LIP, CP #### [facility] [address] [place], [place] [phone] Gas Specialist: Alex Amador MD WBC (Bld) [#/Vol] 9.6 10*3/uL Normal 3.5-11.3 [facility] Comment on above: Performed By: #### C DP LIP, CP #### [address] [place], [place] [id number] Gas Specialist: Alex Amador MD Comp Metabolic Profon 2023 Albumin [Mass/Vol] 4.4 g/dL Normal 3.5-5.2 [facility] Comment on above: Performed By: #### C DP LIP, CP #### [address] [place], [facility] ( Gas Specialist: Alex Amador MD Albumin/Glob Ratio 1.2 Normal 1.0-2.5 [facility] Comment on above: Performed By: #### C DP LIP, CP #### [address] [place] [address] Gas Specialist: Alex Amador MD Alkaline Phos 103 U/L Normal 40-129 [facility] Comment on above: Performed By: #### C DP LIP, CP #### [address] [place] [address] Gas Specialist: Alex Amador MD ALT [Catalytic activity/Vol] 30 U/L Normal 5-41 [facility] Comment on above: Performed By: #### C DP, LIP, CP #### [facility] [address] [place], [place] [phone] Gas Specialist: Alex Amador MD Anion gap [Moles/Vol] 10 mmol/L Normal 9-17 [facility] Comment on above: Performed By: #### C DP, LIP, CP #### [facility] [address] [place], [place] [phone] Gas Specialist: Alex Amador MD AST [Catalytic activity/Vol] 21 U/L Normal <40 [facility] Comment on above: Performed By: #### C DP, LIP, CP #### [facility] [address] [place], [place] [phone] Gas Specialist: Alex Amador MD Bilirubin [Mass/Vol] 0.7 mg/dL Normal 0.3-1.2 [facility] Comment on above: Performed By: #### C DP, LIP, CP #### [facility] [address] [place], [place] [phone] Gas Specialist: Alex Amador MD BUN/CRE Ratio 13 Normal 9-20 [facility] Comment on above: Performed By: #### C DP, LIP, CP #### [facility] [address] [place], [place] [phone] Gas Specialist: Alex Amador MD Calcium [Mass/Vol] 9.1 mg/dL Normal 8.6-10.4 [facility] Comment on above: Performed By: #### C DP, LIP, CP #### [facility] [address] [place], [place] [id number] Gas Specialist: Alex Amador MD Chloride [Moles/Vol] 102 mmol/L Normal 98-107 [facility] Comment on above: Performed By: #### C DP, LIP, CP #### [facility] [address] [place], [place] [id number] Gas Specialist: Alex Amador MD CO2 [Moles/Vol] 27 mmol/L Normal 20-31 [facility] Comment on above: Performed By: #### C RAMÓN MELTON, CP #### [facility] [address] [place] [address] Gas Specialist: Alex Amador MD Creatinine [Mass/Vol] 0.8 mg/dL Normal 0.7-1.2 [facility] Comment on above: Performed By: #### C RAMÓN MELTON, CP #### [facility] [address] [place] [address] Gas Specialist: Alex Amador MD GFR/1.73 sq M.predicted among non-blacks MDRD (S/P/Bld) [Vol rate/Area] mL/min/{1.73_m2} Normal >60 [facility] Comment on above: Result Comment: These results [...] By: #### C RAMÓN MELTON, CP #### [address] [place] [address] Gas Specialist: Alex Amador MD Glucose [Mass/Vol] 97 mg/dL Normal 70-99 [facility] Comment on above: Performed By: #### C LINH LIP, CP #### [facility] [address] [place] [address] Gas Specialist: Alex Amador MD Potassium [Moles/Vol] 4.2 mmol/L Normal 3.7-5.3 [facility] Comment on above: Performed By: #### C LINH LIP, CP #### [address] [place] [address] Gas Specialist: Alex Amador MD Protein [Mass/Vol] 8.0 g/dL Normal 6.4-8.3 [facility] Comment on above: Performed By: #### C DP LIP, CP #### [facility] [address] [place] [address] Gas Specialist: Alex Amador MD Sodium [Moles/Vol] 139 mmol/L Normal 135-144 [facility] Comment on above: Performed By: #### C DP LIP, CP #### [facility] [address] [place] [address] Gas Specialist: Alex Amador MD Urea nitrogen [Mass/Vol] 10 mg/dL Normal 6-20 [facility] Comment on above: Performed By: #### C DPRAMÓN, CP #### [facility] [address] [place], [place] [id number] Gas Specialist: Alex Amador MD Lipaseon 07-04-2023 Lipase [Catalytic activity/Vol] 29 U/L Normal 13-60 [facility] Comment on above: Performed By: #### C RAMÓN MELTON, CP #### [facility] [address] [place] [address] Gas Specialist: Alex Amador MD 36on 11-21-2022 36 Patient's [...] cost is very similar. Help! Thanks. Normal [facility] CBCon 11-17-2022 Erythrocyte distribution width (RBC) [Ratio] 12.9 % Normal 11.5-15.0 [facility] Comment on above: Performed By: #### L [id number] ####[facility] ([facility])[address] [place] [address] ERYTHROCYTE MEAN CORPUSCULAR HEMOGLOBIN CONCENTRATION (G/DL) BY AUTOMATED 34.2 g/dL Normal 32.0-35.0 [facility] Comment on above: Performed By: #### L [id number] ####[facility] ([facility] [place] [address] Hematocrit (Bld) [Volume fraction] 43.6 % Normal 39.0-55.0 [facility] Comment on above: Performed By: #### L [id number] ####[facility] ([facility])[address] [place] [address] Hemoglobin (Bld) [Mass/Vol] 14.9 g/dL Normal 13.0-17.0 [facility] Comment on above: Performed By: #### L [id number] ####[facility] ([facility])[address] [place] [address] MCH (RBC) [Entitic mass] 30.2 pg Normal 27.0-33.0 [facility] Comment on above: Performed By: #### L [id number] ####[facility] ([facility])[address] [place] [address] MCV (RBC) [Entitic vol] 88.4 fL Normal 82.0-98.0 [facility] Comment on above: Performed By: #### L [id number] ####[facility] ([facility])[address] [place] [address] PLATELETS (10*3/UL) IN BLOOD AUTOMATED COUNT 237 10*3/uL Normal 150-400 [facility] Comment on above: Performed By: #### L [id number] ####[facility] ([facility])[address] [place] [address] RBC (Bld) [#/Vol] 4.93 10*6/uL Normal 4.20-5.70 [facility] Comment on above: Performed By: #### L [id number] ####[facility] ([facility])[address] [place] [address] WBC (Bld) [#/Vol] 10.15 10*3/uL Normal 4.00-10.60 [facility] Comment on above: Performed By: #### L [id number] ####[facility] ([facility])[address] [place] [address] HPon 11-17-2022 HP H&P reviewed. The patient [...] consent was signed prior to the procedure. [facility] HP H&P reviewed. The patient was examined and there are no changes to the H&P. Rafat Garcia MD, MPH, [facility], [facility], [facility] Interventional Cardiology Pager Email: [email or web address] [email or web address] 11-17-2022 NURSNOTE RN educated pt on d/c instructions. RN encouraged pt to voice any questions or concerns. Pt verbalizes no questions or concerns at this time. Pt was wheeled off of unit with all of belongings. [facility] Orders Onlyon 11-09-2022 Orders Only [id number] Henrik Cavanaugh 1980 M Date Provider Department Center 11/09/2022 [facility] [place] Heart[facility]AS Family History Problem Relation Age of Onset Coronary artery disease Mother's Brother Peripheral vascular disease Mother's Brother Family Status - Relation Status Age at Mother's Brother [facility] HPon 10-31-2022 [facility] Cardiology Clinic Note Chief Complaint: Patient here for follow up [facility] for chest pain. He was seen as inpatient consult by Melania Alarcon CNP. Had inpatient stress test. HPI: Henrik Caavnaugh is a 42 y.o. male seen by [...] the above Rafat Garcia MD, MPH, FACC, [facility], [facility] Interventional Cardiology Pager Email: [email or web address] Normal [facility] Office Visiton 10-31-2022 Follow-up visit [id number] Henrik Cavanaugh 1980 [facility] Provider Department Center 10/31/2022 [facility]-RAFAT GARCIA Family History Problem Relation Age of Onset Coronary artery disease Mother's Brother Peripheral vascular disease Mother's Brother Family Status - Relation Status Age at Mother's Brother Level of Service:99113 NM OFFICE/OUTPATIENT ESTABLISHED HIGH MDM 40-54 MIN Normal [facility] Orders Onlyon 10-31-2022 Orders Only [id number] Henrik Cavanaugh 1980 [facility] Provider Department Center 10/31/2022 TAE BENÍTEZ Family History Problem Relation Age of Onset Coronary artery disease Mother's Brother Peripheral vascular disease Mother's Brother Family Status - Relation Status Age at Mother's Brother Normal [facility] Activated partial thrombopla stin time (aPTT) in platelet poor plasma by coagulation aOrdered By: Socorro Osullivan on 10-11-2022 aPTT Coag (PPP) [Time] 27.7 s 25.1-36.5 [facility] Basophils Auto (Bld) [#/Vol] Ordered By: Socorro Osullivan on 10-11-2022 Basophils (Bld) [#/Vol] 0.1 10*3/uL 0.0-0.2 [facility] Basophils/100 WBC Auto (Bld) Ordered By: Socorro Osullivan on 10-11-2022 Basophils/100 WBC (Bld) 0.9 % . [facility] Calcium [Mass/volume] in Ser um or PlasmaOrdered By: Socorro Osullivan on 10-11-2022 Calcium [Mass/Vol] 9.5 mg/dL 8.6-10.3 [facility] Carbon dioxide, total [Moles /volume] in Serum or PlasmaOrdered By: Socorro Osullivan on 10-11-2022 CO2 [Moles/Vol] 29.1 mmol/L 21.0-31.0 [facility] Chloride [Moles/volume] in S josselin or PlasmaOrdered By: Socorro Osullivan on 10-11-2022 Chloride [Moles/Vol] 102 mmol/L 98-107 [facility] Creatine kinase [Enzymatic a ctivity/volume] in Serum or PlasmaOrdered By: Socorro Osullivan on 10-11-2022 CK [Catalytic activity/Vol] 87 U/L 30-223 [facility] Creatinine [Mass/volume] in Serum or PlasmaOrdered By: Socorro Osullivan on 10-11-2022 Creatinine [Mass/Vol] 0.79 mg/dL 0.70-1.30 [facility] Eosinophils Auto (Bld) [#/Vo l]Ordered By: Socorro Osullivan on 10-11-2022 Eosinophils (Bld) [#/Vol] 0.2 10*3/uL 0.0-0.45 [facility] Eosinophils/100 WBC Auto (Bl d)Ordered By: Socorro Osullivan on 10-11-2022 Eosinophils/100 WBC (Bld) 2.5 % . [facility] Erythrocyte distribution wid th Auto (RBC) [Ratio]Ordered By: Socorro Osullivan on 10-11-2022 Erythrocyte distribution width (RBC) [Ratio] 13.3 % 12.0-14.8 [facility] Glucose [Mass/volume] in Ser um or PlasmaOrdered By: Socorro Osullivan on 10-11-2022 Glucose [Mass/Vol] 90 mg/dL 70-100 [facility] Comment on above: ADA recommended refe rence rangeRandom Glucose Reference Range is dependent on time and content of last meal. Glucose of more than 200 mg/dL in a nonstressed, ambulatory subject supports the diagnosis of Diabetes Mellitus. Hematocrit Auto (Bld) [Volum e fraction]Ordered By: Socorro Osullivan on 10-11-2022 Hematocrit (Bld) [Volume fraction] 40.4 % 38.8-50.0 [facility] Hemoglobin [Mass/volume] in BloodOrdered By: Socorro Osullivan on 10-11-2022 Hemoglobin (Bld) [Mass/Vol] 14.2 g/dL 13.0-17.0 [facility] - CoagulationOrde red By: Socorro Osullivan on 10-11-2022 PT Coag (PPP) [Time] 12.0 s 9.0-12.9 [facility] Leukocytes [#/volume] correc giselle for nucleated erythrocytes in Blood by Automated counOrdered By: Socorro Osullivan on 10-11-2022 WBC corrected for nucl RBC Auto (Bld) [#/Vol] 9.5 10*3/uL 4.1-10.5 [facility] Lymphocytes Auto (Bld) [#/Vo l]Ordered By: Socorro Osullivan on 10-11-2022 Lymphocytes (Bld) [#/Vol] 1.8 10*3/uL 1.00-4.8 [facility] Lymphocytes/100 WBC Auto (Bl d)Ordered By: Socorro Osullivan on 10-11-2022 Lymphocytes/100 WBC (Bld) 18.6 % . [facility] MCH Auto (RBC) [Entitic mass ]Ordered By: Socorro Osullivan on 10-11-2022 MCH (RBC) [Entitic mass] 30.4 pg 27.5-35.2 [facility] MCHC Auto (RBC) [Mass/Vol]Or dered By: Socorro Osullivan on 10-11-2022 MCHC (RBC) [Mass/Vol] 35.1 g/dL 32.5-35.6 [facility] MCV Auto (RBC) [Entitic vol] Ordered By: Socorro Osullivan on 10-11-2022 MCV (RBC) [Entitic vol] 86.6 fL 83.5-101 [facility] Monocyte distribution width [Entitic volume] in Blood by AutomatedOrdered By: Socorro Osullivan on 10-11-2022 Monocyte distribution width Auto (Bld) [Entitic vol] 18.08 % 0.00-20.00 [facility] Monocytes Auto (Bld) [#/Vol] Ordered By: Socorro Osullivan on 10-11-2022 Monocytes (Bld) [#/Vol] 0.7 10*3/uL 0.0-0.8 [facility] Monocytes/100 WBC Auto (Bld) Ordered By: Socorro Osullivan on 10-11-2022 Monocytes/100 WBC (Bld) 7.2 % . [facility] Natriuretic peptide B [Mass/ Vol]Ordered By: Socorro Osullivan on 10-11-2022 Natriuretic peptide B (Bld) [Mass/Vol] 21.0 pg/mL 5-100 [facility] Neutrophils Auto (Bld) [#/Vo l]Ordered By: Socorro Osullivan on 10-11-2022 Neutrophils (Bld) [#/Vol] 6.7 10*3/uL 1.8-7.7 [facility] Neutrophils/100 WBC Auto (Bl d)Ordered By: Socorro Osullivan on 10-11-2022 Neutrophils/100 WBC (Bld) 70.8 % . [facility] No Panel InformationOrdered By: Socorro Osullivan on 10-11-2022 Estimated GFR (CKD-EPI) > 60.0 mL/Min [facility] Creatinine Clearance (Chem 158.41 [facility] Nucleated erythrocytes [Pres ence] in Blood by Automated countOrdered By: Socorro Osullivan on 10-11-2022 Nucleated RBC Auto Ql (Bld) 0.2 /100{WBC} 0-0.5 [facility] Platelet mean volume Auto (B ld) [Entitic vol]Ordered By: Socorro Osullivan on 10-11-2022 Platelet mean volume (Bld) [Entitic vol] 8.0 fL 6.6-10.1 [facility] Platelet poor plasma interna tional normalized ratio (INR) by coagulation assay (relatOrdered By: Socorro Osullivan on 10-11-2022 INR Coag (PPP) [Relative time] 1.0 {INR} [facility] Comment on above: INR Therapeutic Rang [...] 10-11-2022 Platelets (Bld) [#/Vol] 218 10*3/uL 150-450 [facility] Potassium [Moles/volume] in Serum or PlasmaOrdered By: Socorro Osullivan on 10-11-2022 Potassium [Moles/Vol] 3.8 mmol/L 3.5-5.1 [facility] RBC Auto (Bld) [#/Vol]Ordere d By: Socorro Osullivan on 10-11-2022 RBC (Bld) [#/Vol] 4.67 10*6/uL 3.90-5.60 [facility] Serum or plasma anion gap de terminationOrdered By: Socorro Osullivan on 10-11-2022 Anion gap [Moles/Vol] 10.7 mmol/L 6.0-15.0 [facility] Sodium [Moles/volume] in Ser um or PlasmaOrdered By: Socorro Osulliavn on 10-11-2022 Sodium [Moles/Vol] 138 mmol/L 136-145 [facility] Troponin I.cardiac [Mass/vol ume] in Serum or Plasma by Detection limit <= 0.01 ng/Ordered By: Socorro Osullivan on 10-11-2022 Troponin I.cardiac DL <= 0.01 ng/mL [Mass/Vol] 6.3 pg/mL 0.0-20.0 [facility] Urea nitrogen [Mass/volume] in Serum or PlasmaOrdered By: Socorro Osullivan on 10-11-2022 Urea nitrogen [Mass/Vol] 11 mg/dL 7-25 [facility] WBC Auto (Bld) [#/Vol]Ordere d By: Socorro Osullivan on 10-11-2022 WBC (Bld) [#/Vol] 9.5 10*3/uL 4.1-10.5 [facility] BNPon 05-16-2022 Natriuretic peptide B (Bld) [Mass/Vol] 51.0 pg/mL Normal <=450.0 [facility] Comment on above: Performed By: #### B CHIEF CREATIVE OFFICER, ESME, BMP #### [facility] [address] [address] [address] Divina Patino CARDIAC DAT 3-6on 3 CK [Catalytic activity/Vol] 43 U/L Normal 39-308 [facility] Comment on above: Performed By: #### L ACT #### [facility] [address] [place] [address] Dr. Divina Patino HSTROP 10.6 pg/mL Normal 4.0-76.1 [facility] Comment on above: Result Comment: CUT- OFF POINTS HAVE BEEN ESTABLISHED BASED ON THE FOURTH UNIVERSAL DEFINITIONS OF MYOCARDIAL INFARCTION. THE UPPER REFERENCE LIMIT (URL) OF TROPONIN, DEFINED THE 99TH PERCENTILE OF cTnI DISTRIBUTION IN A REFERENCE POPULATION, HAS BEEN CONFIRMED THE DECISION THRESHOLD FOR [place] DIAGNOSIS. Performed By: #### L ACT #### [facility] [address] [place] [address] Dr. Divina Patino CARDIAC DAT ADMITon 023 CK [Catalytic activity/Vol] 44 U/L Normal 39-308 [facility] Comment on above: Performed By: #### B CHIEF CREATIVE OFFICER, MAGDADM, BMP #### [facility] [address] [place] [address] Dr. Divina Patino CK.MB [Mass/Vol] ng/mL Normal <=3.60 [facility] Comment on above: Performed By: #### B CHIEF CREATIVE OFFICER, CMADM, BMP #### [facility] [address] [place] [address] Dr. Divina Patino HSTROP 9.9 pg/mL Normal 4.0-76.1 [facility] Comment on above: Result Comment: CUT- OFF POINTS HAVE BEEN ESTABLISHED BASED ON THE FOURTH UNIVERSAL DEFINITIONS OF MYOCARDIAL INFARCTION. THE UPPER REFERENCE LIMIT (URL) OF TROPONIN, DEFINED THE 99TH PERCENTILE OF cTnI DISTRIBUTION IN A REFERENCE POPULATION, HAS BEEN CONFIRMED THE DECISION THRESHOLD FOR [place] DIAGNOSIS. Performed By: #### B ESME ORTEGA, BMP #### [facility] [address] [place] [address] Dr. Divina Patino CIELO 21 ng/mL Normal 16-96 [facility] Comment on above: Performed By: #### B CHIEF CREATIVE OFFICERESME, BMP #### [facility] [address] [place] [address] Dr. Divina Patino CBC AUTO DIFFon 05-16-2022 BASO # 0.1 103/ul Normal 0.0-0.1 [facility] Comment on above: Performed By: #### C BC #### [facility] [address] [place] [address] Dr. Divina Patino Basophils/100 WBC (Bld) 0.6 % Normal 0.2-2.0 [facility] Comment on above: Performed By: #### C BC #### [facility] [address] [place] [address] Dr. Divina Patino EO # 0.3 103/ul Normal 0.0-0.7 [facility] Comment on above: Performed By: #### C BC #### [facility] [address] [place] [address] Dr. Divina Patino Eosinophils/100 WBC (Bld) 2.3 % Normal 0.9-7.0 [facility] Comment on above: Performed By: #### C BC #### [facility] [address] [place] [address] Dr. Divina Patino Erythrocyte distribution width (RBC) [Ratio] 12.3 % Normal 11.0-15.0 [facility] Comment on above: Performed By: #### C BC #### [facility] [address] [place] [address] Dr. Divina Patino Hematocrit (Bld) [Volume fraction] 41.6 % Critically low 42.0-54.0 [facility] Comment on above: Performed By: #### C BC #### [facility] [address] [place] [address] Dr. Divina Patino Hemoglobin (Bld) [Mass/Vol] 14.6 g/dL Normal 14.0-18.0 [facility] Comment on above: Performed By: #### C BC #### [facility] [address] [place] [address] Dr. Divina Patino IG # 0.12 10e3/ul Critically high 0.00-0.03 [facility] Comment on above: Performed By: #### C BC #### [facility] [address] [place] [address] Dr. Divina Patino IG % 1.0 % Critically high 0.0-0.[address] [facility] Comment on above: Performed By: #### C BC #### [facility] [address] [place] [address] Dr. Divina Patino LYMPH # 2.7 103/ul Normal 1.2-3.8 [facility] Comment on above: Performed By: #### C BC #### [facility] [address] [place] [address] Dr. Divina Patino Lymphocytes/100 WBC (Bld) 23.0 % Normal 20.5-60.0 [facility] Comment on above: Performed By: #### C BC #### [facility] [address] [place] [address] Dr. Divina Patino MANUAL DIFF REQ NO Normal [facility] Comment on above: Performed By: #### C BC #### [facility] [address] [place] [address] Dr. Divina Patino MCH (RBC) [Entitic mass] 30.0 pg Normal 25.9-34.0 [facility] Comment on above: Performed By: #### C BC #### [facility] [address] [place] [address] Dr. Divina Patino MCHC (RBC) [Mass/Vol] 35.1 g/dL Normal 29.9-35.2 [facility] Comment on above: Performed By: #### C BC #### [facility] [address] [place] [address] Dr. Divina Patino MCV (RBC) [Entitic vol] 85.6 fL Normal 80.0-94.0 [facility] Comment on above: Performed By: #### C BC #### [facility] [address] [place] [address] Dr. Divina Patino MONO # 1.0 103/ul Critically high 0.3-0.8 [facility] Comment on above: Performed By: #### C BC #### [facility] [address] [address] [address] Divina Patino Monocytes/100 WBC (Bld) 8.6 % Normal 1.7-12.0 [facility] Comment on above: Performed By: #### C BC #### [facility] [address] [place] [address] Dr. Divina Patino NEUT # 7.4 103/ul Critically high 1.4-6.5 [facility] Comment on above: Performed By: #### C BC #### [facility] [address] [place] [address] Dr. Divina Patino Neutrophils/100 WBC (Bld) 64.5 % Normal 43.0-75.0 [facility] Comment on above: Performed By: #### C BC #### [facility] [address] [place] [address] Dr. Divina Patino Platelet mean volume (Bld) [Entitic vol] 9.9 fL Normal 9.5-13.5 [facility] Comment on above: Performed By: #### C BC #### [facility] [address] [place] [address] Dr. Divina Patino PLT 231 103/ul Normal 150-450 [facility] Comment on above: Performed By: #### C BC #### [facility] [address] [place], [place] [id number] Dr. Divina Patino RBC 4.86 106/ul Normal 4.70-6.10 [facility] Comment on above: Performed By: #### C BC #### [facility] [address] [place] [address] Dr. Divina Patino WBC 11.5 103/ul Critically high 4.0-11.0 [facility] Comment on above: Performed By: #### C BC #### [facility] [address] [place] [address] Dr. Divina Patino D-DIMERon 05-16-2022 D-DIMER 0.19 mg/L FEU Normal <=0.59 [facility] Comment on above: Performed By: #### D DIM #### [facility] [address] [place] [address] Dr. Divina Patino D-DIMER COMMENTS SEE BELOW Normal [facility] Comment on above: Result Comment: [...] hospitalization. Performed By: #### D DIM #### [facility] [address] [place] [address] Dr. Divina Patino LACTATE/LACTIC ACIDon 2022 Lactate [Moles/Vol] 1.5 mmol/L Normal 0.4-1.9 [facility] Comment on above: Performed By: #### L ACT #### [facility] [address] [place] [address] Dr. Divina Patino PROF CHEM 8 (BAS METB)on Anion gap [Moles/Vol] 13.7 mmol/L Normal [facility] Comment on above: Performed By: #### B CHIEF CREATIVE OFFICER, CMADM, BMP #### [facility] [address] [address] [address] Divina Patino Calcium [Mass/Vol] 8.7 mg/dL Normal 8.5-10.1 [facility] Comment on above: Performed By: #### B CHIEF CREATIVE OFFICER, CMADM, BMP #### [facility] [address] [place] [address] Dr. Divina Patino Chloride [Moles/Vol] 102 mmol/L Normal 98-107 [facility] Comment on above: Performed By: #### B CHIEF CREATIVE OFFICER, CMADM, BMP #### [facility] [address] [address] [address] Divina Patino CO2 [Moles/Vol] 27.1 mmol/L Normal 21.0-32.0 [facility] Comment on above: Performed By: #### B CHIEF CREATIVE OFFICER, CMADM, BMP #### [facility] [address] [address] [address] Divina Patino Creatinine [Mass/Vol] 0.85 mg/dL Normal 0.70-1.30 [facility] Comment on above: Performed By: #### B CHIEF CREATIVE OFFICER, CMADM, BMP #### [facility] [address] [place] [address] Dr. Divina Patino EGFR-AF SYRIAN >60 Normal >=60 [facility] Comment on above: Performed By: #### B CHIEF CREATIVE OFFICER, CMADM, BMP #### [facility] [address] [place] [address] Dr. Divina Patino EGFR-NON AF SYRIAN >60 Normal >=60 [facility] Comment on above: Performed By: #### B CHIEF CREATIVE OFFICER, CMADM, BMP #### [facility] [address] [place] [address] Dr. Divina Patino Glucose [Mass/Vol] 114 mg/dL Critically high 74-106 [facility] Comment on above: Performed By: #### B CHIEF CREATIVE OFFICER, CMADM, BMP #### [facility] [address] [address] [address] Divina Patino Potassium [Moles/Vol] 3.8 mmol/L Normal 3.5-5.1 [facility] Comment on above: Performed By: #### B CHIEF CREATIVE OFFICER, CMADM, BMP #### [facility] [address] [place] [address] Dr. Divina Patino Sodium [Moles/Vol] 139 mmol/L Normal 136-145 [facility] Comment on above: Performed By: #### B CHIEF CREATIVE OFFICER, CMADM, BMP #### [facility] [address] [place] [address] Dr. Divina Patino Urea nitrogen [Mass/Vol] 15.0 mg/dL Normal 7.0-18.0 [facility] Comment on above: Performed By: #### B ESME ORTEGA BMP #### [facility] [address] [address] [address] Divina Patino Urea nitrogen/Creatinine [Mass ratio] 17.6 mg/mg Normal [facility] Comment on above: Performed By: #### B ESME ORTEGA BMP #### [facility] [address] [address] [address] Divina Patino XR CHEST 1 Von [...] AMAN PURCELL Date: 2022-05-15 23:20 Normal [facility] CARDIAC DAT ADMITon 023 CK [Catalytic activity/Vol] 78 U/L Normal 39-308 [facility] Comment on above: Performed By: #### L ACT #### [facility] [address] [place] [address] Dr. Divina Patino CK.MB [Mass/Vol] 1.08 ng/mL Normal <=3.60 [facility] Comment on above: Performed By: #### L ACT #### [facility] [address] [place] [address] Dr. Divina Patino HSTROP 12.2 pg/mL Normal 4.0-76.1 [facility] Comment on above: Result Comment: CUT- OFF POINTS HAVE BEEN ESTABLISHED BASED ON THE FOURTH UNIVERSAL DEFINITIONS OF MYOCARDIAL INFARCTION. THE UPPER REFERENCE LIMIT (URL) OF TROPONIN, DEFINED THE 99TH PERCENTILE OF cTnI DISTRIBUTION IN A REFERENCE POPULATION, HAS BEEN CONFIRMED THE DECISION THRESHOLD FOR [place] DIAGNOSIS. Performed By: #### L ACT #### [facility] [address] [address] [address] Divina Patino CIELO 24 ng/mL Normal 16-96 [facility] Comment on above: Performed By: #### L ACT #### [facility] [address] [place] [address] Dr. Divina Patnio CBC AUTO DIFFon 05-11-2022 BASO # 0.1 103/ul Normal 0.0-0.1 [facility] Comment on above: Performed By: #### L ACT #### [facility] [address] [place] [address] Dr. Divina Patino Basophils/100 WBC (Bld) 0.6 % Normal 0.2-2.0 [facility] Comment on above: Performed By: #### L ACT #### [facility] [address] [place] [address] Dr. Divina Patino EO # 0.2 103/ul Normal 0.0-0.7 [facility] Comment on above: Performed By: #### L ACT #### [facility] [address] [place] [address] Dr. Divina Patino Eosinophils/100 WBC (Bld) 2.0 % Normal 0.9-7.0 [facility] Comment on above: Performed By: #### L ACT #### [facility] [address] [place] [address] Dr. Divina Patino Erythrocyte distribution width (RBC) [Ratio] 12.4 % Normal 11.0-15.0 [facility] Comment on above: Performed By: #### L ACT #### [facility] [address] [place] [address] Dr. Divina Patino Hematocrit (Bld) [Volume fraction] 43.8 % Normal 42.0-54.0 [facility] Comment on above: Performed By: #### L ACT #### [facility] [address] [place] [address] Dr. Divina Patino Hemoglobin (Bld) [Mass/Vol] 15.3 g/dL Normal 14.0-18.0 [facility] Comment on above: Performed By: #### L ACT #### [facility] [address] [place], [place] [id number] Dr. Divina Patino IG # 0.06 10e3/ul Critically high 0.00-0.03 [facility] Comment on above: Performed By: #### L ACT #### [facility] [address] [place] [address] Dr. Divina Patino IG % 0.6 % Critically high 0.0-0.[address] [facility] Comment on above: Performed By: #### L ACT #### [facility] [address] [place] [address] Dr. Divina Patino LYMPH # 2.0 103/ul Normal 1.2-3.8 [facility] Comment on above: Performed By: #### L ACT #### [facility] [address] [place] [address] Dr. Divina Patino Lymphocytes/100 WBC (Bld) 19.9 % Critically low 20.5-60.0 [facility] Comment on above: Performed By: #### L ACT #### [facility] [address] [place] [address] Dr. Divina Patino MANUAL DIFF REQ NO Normal [facility] Comment on above: Performed By: #### L ACT #### [facility] [address] [place] [address] Dr. Divina Patino MCH (RBC) [Entitic mass] 30.2 pg Normal 25.9-34.0 [facility] Comment on above: Performed By: #### L ACT #### [facility] [address] [place] [address] Dr. Divina Patino MCHC (RBC) [Mass/Vol] 34.9 g/dL Normal 29.9-35.2 [facility] Comment on above: Performed By: #### L ACT #### [facility] [address] [place] [address] Dr. Divina Patino MCV (RBC) [Entitic vol] 86.6 fL Normal 80.0-94.0 [facility] Comment on above: Performed By: #### L ACT #### [facility] [address] [place] [address] Dr. Divina Patino MONO # 0.8 103/ul Normal 0.3-0.8 [facility] Comment on above: Performed By: #### L ACT #### [facility] [address] [place] [address] Dr. Divina Patino Monocytes/100 WBC (Bld) 7.7 % Normal 1.7-12.0 [facility] Comment on above: Performed By: #### L ACT #### [facility] [address] [place] [address] Dr. Divina Patino NEUT # 7.1 103/ul Critically high 1.4-6.5 [facility] Comment on above: Performed By: #### L ACT #### [facility] [address] [place] [address] Dr. Divina Patino Neutrophils/100 WBC (Bld) 69.2 % Normal 43.0-75.0 [facility] Comment on above: Performed By: #### L ACT #### [facility] [address] [place] [address] Dr. Divina Patino Platelet mean volume (Bld) [Entitic vol] 10.3 fL Normal 9.5-13.5 [facility] Comment on above: Performed By: #### L ACT #### [facility] [address] [place] [address] Dr. Divina Patino PLT 238 103/ul Normal 150-450 [facility] Comment on above: Performed By: #### L ACT #### [facility] [address] [place] [address] Dr. Divina Patino RBC 5.06 106/ul Normal 4.70-6.10 [facility] Comment on above: Performed By: #### L ACT #### [facility] [address] [place] [address] Dr. Divina Patino WBC 10.3 103/ul Normal 4.0-11.0 [facility] Comment on above: Performed By: #### L ACT #### [facility] [address] [place] [address] Dr. Divina Patino CRPon 05-11-2022 CRP [Mass/Vol] mg/L Normal <=1.0 [facility] Comment on above: Performed By: #### L ACT #### [facility] [address] [address] [address] HEAD WO CONon [...] JAMES JOHNSTON Date: 2022-05-11 19:47 Normal [facility] Covid-19 PCR (CVDTB)on SARS-CoV-2 (COVID-19) RNA JERRICA+probe Ql (Unsp spec) Not detected Normal NOT DETECTED [facility] Comment on above: Result Comment: When [...] for this test is supported by the [place] of [employer] and Human Service's declaration that [...] used). Performed By: #### C VDTBH #### [facility] [address] [address] [address] Divina Patino INFLUENZA A AND B AGon 05-11 INFLUANEGH SEE BELOW Normal [facility] Comment on above: Result Comment: Nega tive for Flu A protein angiten. Infection due to Flu A cannot be ruled out. Flu A angiten in the sample may be below the detection limit of the test. Performed By: #### I NFLUAB #### [facility] [address] [place] [address] Dr. Divina Patino INFLUBNEG SEE BELOW Normal [facility] Comment on above: Result Comment: Nega tive for Flu B protein antigen. Infection due to Flu B cannot be ruled out. Flu B antigen in the sample may be below the detection limit of the test. Performed By: #### I NFLUAB #### [facility] [address] [place] [address] Dr. Divina Patino INFLUENZA A AG Negative Normal NEGATIVE SEE COMMENT [facility] Comment on above: Performed By: #### I NFLUAB #### [facility] [address] [place] [address] Dr. Divina Patino INFLUENZA B AG Negative Normal NEGATIVE SEE COMMENT [facility] Comment on above: Performed By: #### I NFLUAB #### [facility] [address] [place] [address] Dr. Divina Patino LACTATE/LACTIC ACIDon 2022 Lactate [Moles/Vol] 1.8 mmol/L Normal 0.4-1.9 [facility] Comment on above: Performed By: #### L ACT #### [facility] [address] [place] [address] Dr. Divina Patino MONOon 05-11-2022 Monocytes (Bld) [#/Vol] Negative Normal NEGATIVE [facility] Comment on above: Performed By: #### M LEANDRO #### [facility] [address] [place] [address] Dr. Divina Patino PROF CHEM 8 (BAS METB)on Anion gap [Moles/Vol] 12.8 mmol/L Normal [facility] Comment on above: Performed By: #### L ACT #### [facility] [address] [place] [address] Dr. Divina Ptaino Calcium [Mass/Vol] 9.1 mg/dL Normal 8.5-10.1 [facility] [place] Comment on above: Performed By: #### L ACT #### [facility] [address] [address] [address] Divina Patino Chloride [Moles/Vol] 101 mmol/L Normal 98-107 [facility] Comment on above: Performed By: #### L ACT #### [facility] [address] [address] [address] Divina Patino CO2 [Moles/Vol] 26.9 mmol/L Normal 21.0-32.0 [facility] Comment on above: Performed By: #### L ACT #### [facility] [address] [place] [address] Dr. Divina Patino Creatinine [Mass/Vol] 0.90 mg/dL Normal 0.70-1.30 [facility] Comment on above: Performed By: #### L ACT #### [facility] [address] [place] [address] Dr. Divina Patino EGFR-AF SYRIAN >60 Normal >=60 [facility] Comment on above: Performed By: #### L ACT #### [facility] [address] [place] [address] Dr. Divina Patino EGFR-NON AF SYRIAN >60 Normal >=60 [facility] Comment on above: Performed By: #### L ACT #### [facility] [address] [place] [address] Dr. Divina Patino Glucose [Mass/Vol] 110 mg/dL Critically high 74-106 [facility] Comment on above: Performed By: #### L ACT #### [facility] [address] [address] [address] Divina Patino Potassium [Moles/Vol] 3.7 mmol/L Normal 3.5-5.1 [facility] Comment on above: Performed By: #### L ACT #### [facility] [address] [place] [address] Dr. Divina Patino Sodium [Moles/Vol] 137 mmol/L Normal 136-145 [facility] [place] Comment on above: Performed By: #### L ACT #### [facility] [address] [address] [address] Divina Patino Urea nitrogen [Mass/Vol] 11.0 mg/dL Normal 7.0-18.0 [facility] Comment on above: Performed By: #### L ACT #### [facility] [address] [address] [address] Divina Patino Urea nitrogen/Creatinine [Mass ratio] 12.2 mg/mg Normal [facility] Comment on above: Performed By: #### L ACT #### [facility] [address] [address] [address] Divina Patino SED RATE [facility] 2022 SED RATE 16 mm/hr Critically high <=[address] [facility] Comment on above: Performed By: #### L ACT #### [facility] [address] [address] [address] Divina Patino TSHon 05-11-2022 TSH 3.949 uIU/mL Critically high 0.358-3.740 [facility] [place] Comment on above: Performed By: #### L ACT #### [facility] [address] [place] [address] Dr. Divina Patino COVID-19 SOFIAOrdered By: Andres Elizondo on 12-02-2021 SARS-CoV+SARS-CoV-2 (COVID-19) Ag IA.rapid Ql (Resp) Negative Negative [facility] Comment on above: This is a duplicate Judith SARS Antigen (ANURAG) result to be used for statistical tracking purpose only. No Panel InformationOrdered By: Elian Elizondo on 12-02-2021 SARS Antigen (LFIA) [facility] CBC with Auto Differentialon 06-08-2021 Absolute Eos # 0.11 [facility] Heal th Absolute Immature Granulocyte 0.06 [place] Absolute Lymph # 1.65 [facility] alth Absolute [place] # 1.03 [facility] Basophils (Bld) [#/Vol] 0.07 10*3/uL [facility] Basophils/100 WBC (Bld) 1 % 0 - 2 % [facility] Eosinophils/100 WBC (Bld) 1 % 1 - 4 % [facility] Hematocrit (Bld) [Volume fraction] 47.5 % 40.7 - 50.3 % [facility] Hemoglobin.gastroint estinal spec 1 Ql (Stl) 16.3 g/dL 13.0 - 17.0 g/dL [facility] Immature granulocytes/100 WBC (Bld) 1 % High 0 [facility] Interpretation and review of laboratory results Abnormal [facility] Lymphocytes/100 WBC (Bld) 14 % Low 24 - 43 % [facility] MCH (RBC) [Entitic mass] 30.5 pg 25.2 - 33.5 pg [facility] MCHC (RBC) [Mass/Vol] 34.3 g/dL 28.4 - 34.8 g/dL [facility] MCV (RBC) [Entitic vol] 89.0 fL 82.6 - 102.9 fL [facility] Monocytes/100 WBC (Bld) 9 % 3 - 12 % [facility] NRBC Automated 0.0 0.0 per 100 WBC [facility] Platelet distribution width (Bld) [Ratio] 12.5 % 11.8 - 14.4 % [facility] Platelet mean volume (Bld) [Entitic vol] 10.8 fL 8.1 - 13.5 fL [facility] Platelets (Bld) [#/Vol] 231 10*3/uL [facility] RBC (Bld) [#/Vol] 5.34 10*6/uL 4.21 - 5.77 m/uL [facility] Segmented neutrophils/100 WBC (Bld) 74 % High 36 - 65 % [facility] Segs Absolute 9.05 High [facility] Healt h WBC (Bld) [#/Vol] 12.0 10*3/uL High [facility] CT ABDOMEN PELVIS W IV CONTR AST [...] COMPARISON: 02/05/2019 HISTORY: ORDERING SYSTEM PROVIDED HISTORY: [facility] pain TECHNOLOGIST PROVIDED HISTORY: [facility] pain Decision Support Exception - unselect [...] Bones/Soft Tissues: Mild multilevel thoracolumbar spondylosis. [facility] RIS CONSOLIDATED Ok Rodgers MD - [...] COMPARISON: 02/05/2019 HISTORY: ORDERING SYSTEM PROVIDED HISTORY: [facility] pain TECHNOLOGIST PROVIDED HISTORY: [facility] pain Decision Support Exception - unselect [...] stones in the left kidney. Normal appendix. [place] Work Phone: Radiology Study observation (narrative) I AM AT Phone: CT ABDOMEN PELVIS W IV CONTR AST Additional Contrast? NoneOrdered By: Ok Rodgers on 06-08-2021 I AM AT Phone: Comprehensive Metabolic Pane karan 06-08-2021 Albumin [Mass/Vol] 4.6 g/dL 3.5 - 5.2 g/dL [facility] Albumin/Globulin [Mass ratio] 1.5 {ratio} [place] ALP (Bld) [Catalytic activity/Vol] 90 U/L 40 - 129 U/L [place] ALT [Catalytic activity/Vol] 37 U/L 5 - 41 U/L [facility] Anion gap [Moles/Vol] 10 mmol/L 9 - 17 mmol/L [facility] AST [Catalytic activity/Vol] 18 U/L <40 [facility] Bilirubin [Mass/Vol] 0.83 mg/dL 0.3 - 1.2 mg/dL [place] Calcium [Mass/Vol] 9.7 mg/dL 8.6 - 10.4 mg/dL [place] Chloride [Moles/Vol] 101 mmol/L 98 - 107 mmol/L [place] CO2 [Moles/Vol] 29 mmol/L 20 - 31 mmol/L [facility] Creatinine [Mass/Vol] 0.83 mg/dL 0.70 - 1.20 mg/dL [place] Free PSA/Total PSA [Mass fraction] 7.6 g/dL 6.4 - 8.3 g/dL [place] GFR >60 >60 mL/min [facility] GFR Non- >60 >60 mL/min [facility] Glucose [Mass/Vol] 110 mg/dL High 70 - 99 mg/dL [facility] Interpretation and review of laboratory results Abnormal [facility] Potassium [Moles/Vol] 4.2 mmol/L 3.7 - 5.3 mmol/L [facility] Sodium [Moles/Vol] 140 mmol/L 135 - 144 mmol/L [facility] Urea nitrogen (BldV) [Mass/Vol] 10 mg/dL 6 - 20 mg/dL [facility] Urea nitrogen/Creatinine (Bld) [Mass ratio] 12 [facility] - Chemistry and C hemistry - challengeon 06-08-2021 GFR/1.73 sq M.predicted MDRD (S/P/Bld) [Vol rate/Area] [facility] Comment on above: Average GFR for 40-4 9 years old: 99 mL/min/1.73sq m Chronic Kidney Disease: <60 mL/min/1.73sq m Kidney failure: <15 mL/min/1.73sq m eGFR calculated using average adult body mass. Additional eGFR calculator available at: http://www.[employer]/multiple_crcl_2012.htm Stage 1: Some kidney damage normal GFR Stage 2: Mild kidney damage GFR 60-89 Stage 3: Moderate kidney damage GFR 30-59 Stage 4: Severe kidney damage GFR 15-29 Stage 5: Severe kidney damage GFR <15 ESRD - chronic treatment by dialysis or transplant Lactic Acidon 06-08-2021 Lactate [Moles/Vol] 2.1 mmol/L 0.5 - 2.2 mmol/L [facility] Lipaseon 06-08-2021 Lipase [Catalytic activity/Vol] 30 U/L 13 - 60 U/L [facility] No Panel Informationon 06-08 [facility] Basic Metabolic Panelon Anion gap [Moles/Vol] 9 mmol/L 9 - 17 mmol/L [facility] [place] Bun/Cre Ratio 12 [facility] [place] [place] Calcium [Mass/Vol] 8.8 mg/dL 8.6 - 10.4 mg/dL [facility] [place] Chloride [Moles/Vol] 98 mmol/L 98 - 107 mmol/L [place] CO2 [Moles/Vol] 26 mmol/L 20 - 31 mmol/L [place] Creatinine [Mass/Vol] 1.04 mg/dL 0.7 - 1.2 mg/dL [place] GFR >60 >60 mL/min [place] GFR Non- >60 >60 mL/min [place] Glucose [Mass/Vol] 111 mg/dL High 70 - 99 mg/dL [place] Interpretation and review of laboratory results Abnormal [place] Potassium [Moles/Vol] 3.9 mmol/L 3.7 - 5.3 mmol/L [place] Sodium [Moles/Vol] 133 mmol/L Low 135 - 144 mmol/L [place] Urea nitrogen [Mass/Vol] 12 mg/dL 6 - 20 mg/dL [place] Brain Natriuretic Peptideon 03-19-2020 Natriuretic peptide B (Bld) [Mass/Vol] Pro-BNP Reference Range: [place] Comment on above: Rule Out: <300 Reis Zone: Age <50 300-450 Age 50-75 300-900 Age >75 300-1800 Usually represents mild to moderate HF but other cardiopulmonary causes cannot be ruled out. Rule In: Age <50 >450 Age 50-75 >900 Age >75 >1800 Natriuretic peptide B (Bld) [Mass/Vol] 60 pg/mL <300 [place] Comment on above: Pro-BNP results radha ot be compared to BNP results. CBC Auto Differentialon Basophils (Bld) [#/Vol] 0.04 10*3/uL [place] Basophils/100 WBC (Bld) 1 % 0 - 2 % [place] Differential Type NOT REPORTED [place] Eosinophils (Bld) [#/Vol] 0.04 10*3/uL [place] Eosinophils/100 WBC (Bld) 1 % 1 - 4 % [place] Erythrocyte distribution width (RBC) [Ratio] 12.5 % 11.8 - 14.4 % [place] Hematocrit (Bld) [Volume fraction] 48.2 % 40.7 - 50.3 % [place] Hemoglobin (Bld) [Mass/Vol] 16.3 g/dL 13 - 17 g/dL [place] Immature granulocytes (Bld) [#/Vol] 1 % High 0 [place] Immature granulocytes (Bld) [#/Vol] 0.07 10*3/uL [place] Interpretation and review of laboratory results Abnormal [place] Lymphocytes (Bld) [#/Vol] 1.10 10*3/uL [place] Lymphocytes/100 WBC (Bld) 13 % Low 24 - 43 % [place] MCH (RBC) [Entitic mass] 29.4 pg 25.2 - 33.5 pg [place] MCHC (RBC) [Mass/Vol] 33.8 g/dL 28.4 - 34.8 g/dL [place] MCV (RBC) [Entitic vol] 87.0 fL 82.6 - 102.9 fL [place] Monocytes (Bld) [#/Vol] 0.96 10*3/uL [place] Monocytes/100 WBC (Bld) 11 % 3 - 12 % [place] Platelet mean volume (Bld) [Entitic vol] 11.2 fL 8.1 - 13.5 fL [place] Platelets (Bld) [#/Vol] 175 10*3/uL [place] Platelets (Bld) [#/Vol] NOT REPORTED [place] RBC (Bld) [#/Vol] 5.54 10*6/uL 4.21 - 5.77 m/uL [place] RBC morphology finding Nom (Bld) NOT REPORTED [place] Segmented neutrophils/100 WBC (Bld) 73 % High 36 - 65 % [place] Segs Absolute 6.21 [place] WBC (Bld) [#/Vol] 8.4 10*3/uL [place] WBC (Bld) [#/Vol] 0.0 10*3/uL 0.0 per 100 WBC [place] WBC Morphology NOT REPORTED [place] COVID-19, PCRon 03-19-2020 Interpretation and review of laboratory results Abnormal [place] SARS-CoV-2, Rapid DETECTED Abnormal Not Detected [place] Comment on above: Rapid NAAT: The [...] this assay. Fact sheet for Healthcare Providers: https://www.fda.gov/media/856474/download Fact sheet for Patients: https://www.fda.gov/media/695483/download Methodology: Isothermal Nucleic Acid Amplification Results reported to the appropriate Health Department Source .NASOPHARYNGEAL SWAB [place], [place] CT CHEST PULMONARY EMBOLISM W CONTRASTon 03-19-2020 1. No pulmonary embolism. 2. Multifocal ground-glass opacities in the bilateral lungs with overall pattern of concern for underlying viral pneumonitis. 3. Hepatomegaly and diffuse steatosis in the abdomen, stable from remote imaging. [place] [facility], [facility] Incoming Radiant Results From [employer] - 03/19/2020 8:26 PM EST EXAMINATION: CTA [...] in the abdomen, stable from remote imaging. [place] EXAMINATION: CTA OF THE CHEST 03/19/2020 [...] Tissues/Bones: No skeletal abnormalities throughout the chest. [place] Lactic Acid, Plasmaon 2020 Lactate [Moles/Vol] 1.2 mmol/L 0.5 - 2.2 mmol/L [place] Lactic Acid, Whole Blood NOT REPORTED 0.7 - 2.1 mmol/L [place] Metabolic Panelon 03-19-2020 GFR/1.73 sq M predicted among non-blacks MDRD (S/P/Bld) [Vol rate/Area] [place] Comment on above: Average GFR for 40-4 9 years old: 99 mL/min/1.73sq m Chronic Kidney Disease: <60 mL/min/1.73sq m Kidney failure: <15 mL/min/1.73sq m eGFR calculated using average adult body mass. Additional eGFR calculator available at: http://www.[employer]/multiple_crcl_2012.htm Stage 1: Some kidney damage normal GFR Stage 2: Mild kidney damage GFR 60-89 Stage 3: Moderate kidney damage GFR 30-59 Stage 4: Severe kidney damage GFR 15-29 Stage 5: Severe kidney damage GFR <15 ESRD - chronic treatment by dialysis or transplant Otheron 03-19-2020 SARS-CoV-2 [place] Rapid influenza A/B antigens on 03-19-2020 Direct Exam NEGATIVE for Influenza A + B antigens. PCR testing to confirm this result is available upon request. Specimen will be saved in the laboratory for 7 days. Please call [phone] if PCR testing is indicated. [place] Special Requests NOT REPORTED [place] Specimen Description .NASOPHARYNGEAL SWAB [place] Troponinon 03-19-2020 Troponin I.cardiac [Mass/Vol] NOT REPORTED [place] Troponin T.cardiac [Mass/Vol] NOT REPORTED <0.03 ng/mL [place] Troponin, High Sensitivity 15 ng/L 0 - 22 ng/L [place] Comment on above: High Sensitivity Troponin values cannot be compared with other Troponin methodologies. Patients with high levels of Biotin oral intake (i.e >5mg/day) may have falsely decreased Troponin levels. Samples collected within 8 hours of biotin intake may require additional information for diagnosis. XR CHEST PORTABLEon 03-19-19 21 [facility], [facility] Incoming Radiant Results From [employer] - 03/19/2020 6:06 PM EST EXAMINATION: ONE XRAY VIEW OF THE CHEST 03/19/2020 5:58 pm COMPARISON: June 27, 2018 HISTORY: ORDERING SYSTEM PROVIDED HISTORY: dyspnea TECHNOLOGIST PROVIDED HISTORY: dyspnea FINDINGS: Mild edema. Heart and mediastinum normal. Bony thorax intact. IMPRESSION: Mild edema or pneumonitis [place] EXAMINATION: ONE XRAY VIEW OF THE CHEST 03/19/2020 5:58 pm COMPARISON: June 27, 2018 HISTORY: ORDERING SYSTEM PROVIDED HISTORY: dyspnea TECHNOLOGIST PROVIDED HISTORY: dyspnea FINDINGS: Mild edema. Heart and mediastinum normal. Bony thorax intact. [place] Mild edema or pneumonitis [place] Otheron 10-21-2019 No acute abnormalities seen in the left foot or left ankle [place] EXAMINATION: THREE XRAY VIEWS OF THE [...] medial malleolus most likely from old trauma. [place] [facility], [facility] Incoming Radiant Results From [employer] - 10/21/2019 4:26 PM EDT EXAMINATION: THREE [...] in the left foot or left ankle [place] Basic Metabolic Panel w/ Ref katrin to MGon 02-06-2019 Anion gap [Moles/Vol] 13 mmol/L 9 - 17 mmol/L [place] Bun/Cre Ratio 16 [place] Calcium [Mass/Vol] 8.4 mg/dL Low 8.6 - 10.4 mg/dL [place] Chloride [Moles/Vol] 99 mmol/L 98 - 107 mmol/L [place] CO2 [Moles/Vol] 23 mmol/L 20 - 31 mmol/L [place] Creatinine [Mass/Vol] 0.94 mg/dL 0.7 - 1.2 mg/dL [place] GFR >60 >60 mL/min [place] GFR Non- >60 >60 mL/min [place] Glucose [Mass/Vol] 130 mg/dL High 70 - 99 mg/dL [place] Interpretation and review of laboratory results Abnormal [place] Potassium [Moles/Vol] 3.7 mmol/L 3.7 - 5.3 mmol/L [place] Sodium [Moles/Vol] 135 mmol/L 135 - 144 mmol/L [place] Urea nitrogen [Mass/Vol] 15 mg/dL 6 - 20 mg/dL [place] CBCon 02-06-2019 Erythrocyte distribution width (RBC) [Ratio] 12.5 % 11.8 - 14.4 % [place] Hematocrit (Bld) [Volume fraction] 45.4 % 40.7 - 50.3 % [place] Hemoglobin (Bld) [Mass/Vol] 15.1 g/dL 13 - 17 g/dL [place] MCH (RBC) [Entitic mass] 29.8 pg 25.2 - 33.5 pg [place] MCHC (RBC) [Mass/Vol] 33.3 g/dL 28.4 - 34.8 g/dL [place] MCV (RBC) [Entitic vol] 89.5 fL 82.6 - 102.9 fL [place] Platelet mean volume (Bld) [Entitic vol] 10.4 fL 8.1 - 13.5 fL [place] Platelets (Bld) [#/Vol] 198 10*3/uL [place] RBC (Bld) [#/Vol] 5.07 10*6/uL 4.21 - 5.77 m/uL [place] WBC (Bld) [#/Vol] 0.0 10*3/uL 0.0 per 100 WBC [place] WBC (Bld) [#/Vol] 10.7 10*3/uL [place] Culture Stoolon 02-06-2019 Campylobacter PCR NEGATIVE: No Campylobacter spp. (jejuni or coli) DNA Detected NEGATIVE: No Campylobacter spp. (jejuni or coli) DNA Detecte [place] E Coli Enterotoxigenic PCR NEGATIVE: No Enterotoxigenic E. coli (ETEC) Heat-labile and heat-stable (LT/ST) DNA Detected NEGATIVE: No Enterotoxigenic E. coli (ETEC) Heat-labile and [place] Plesiomonas Shigelloides PCR Negative NEGATIVE: No Plesionomas shigelloides DNA Detected [place] Salmonella PCR Negative NEGATIVE: No Salmonella spp. DNA Detected [place] Shigatoxin Gene PCR Negative NEGATIVE : No Shiga toxin-producing gene(s) Detected [place] Shigella Sp PCR Negative NEGATIVE: No Shigella spp. / EIEC DNA Detected [place] Specimen Description .FECES [place] Vibrio PCR NEGATIVE: No Vibrio (V. vulnificus, V, parahaemolyticus and V. cholerae) DNA Detected NEGATIVE: No Vibrio (V. vulnificus, V, parahaemolyticus and [place] Yersinia Enterocolitica PCR Negative NEGATIVE: No Yersinia enterocolitica DNA Detected [place] Metabolic Panelon 02-06-2019 GFR/1.73 sq M predicted among non-blacks MDRD (S/P/Bld) [Vol rate/Area] [place] Comment on above: Stage 1: Some [...] body mass. Additional eGFR calculator available at: http://www.[employer]/multiple_crcl_2012.htm Microscopic Urinalysison Amorphous, UA NOT REPORTED None [place], [place] Bacteria, UA TRACE Abnormal None [place] Casts UA NOT REPORTED /LPF [place] Crystals UA NOT REPORTED None /HPF [place] Epithelial Cells UA 0 TO 2 [place] Interpretation and review of laboratory results Abnormal [place] Mucus, UA TRACE Abnormal None [place] Other Observations UA NOT REPORTED NOT REQ. [place] RBC (U) [#/Vol] 0 TO 2 [place], [place] Renal Epithelial, Urine NOT REPORTED 0 /HPF [place] Trichomonas, UA NOT REPORTED None [place] WBC, UA None [place] Yeast, UA NOT REPORTED None [place] - [place] Urinalysis Reflex to Culture on 02-06-2019 Bilirubin Urine Negative NEGATIVE [place] Color, UA YELLOW YELLOW [place] Glucose, Ur Negative NEGATIVE [place] Interpretation and review of laboratory results Abnormal [place] Ketones Ql (U) TRACE Abnormal NEGATIVE [place] Leukocyte esterase Test strip Ql (U) Negative NEGATIVE [place] Nitrite, Urine Negative NEGATIVE [place] pH, UA 5.5 [place] Protein (U) [Mass/Vol] TRACE Abnormal NEGATIVE [place] Specific [place], UA >1.030 High [place], [place] Turbidity UA CLEAR CLEAR [place] Urinalysis Comments NOT REPORTED [place] Urine Hgb 1+ Abnormal NEGATIVE [place] Urobilinogen, Urine Normal Normal [place] C DIFF TOXIN/ANTIGENon 02-05 C DIFF AG + TOXIN Negative NEGATIVE [place] Comment on above: No C. difficile anti gen and Toxin Detected. Specimen Description .FECES [place] CBCon 02-05-2019 Erythrocyte distribution width (RBC) [Ratio] 12.0 % 11.8 - 14.4 % [place] Hematocrit (Bld) [Volume fraction] 49.7 % 40.7 - 50.3 % [place] Hemoglobin (Bld) [Mass/Vol] 17.2 g/dL High 13 - 17 g/dL [place] Interpretation and review of laboratory results Abnormal [place] MCH (RBC) [Entitic mass] 30.4 pg 25.2 - 33.5 pg [place] MCHC (RBC) [Mass/Vol] 34.6 g/dL 28.4 - 34.8 g/dL [place] MCV (RBC) [Entitic vol] 87.8 fL 82.6 - 102.9 fL [place] Platelet mean volume (Bld) [Entitic vol] 10.8 fL 8.1 - 13.5 fL [place] Platelets (Bld) [#/Vol] 233 10*3/uL [place] RBC (Bld) [#/Vol] 5.66 10*6/uL 4.21 - 5.77 m/uL [place] WBC (Bld) [#/Vol] 15.0 10*3/uL [place] WBC (Bld) [#/Vol] 0.0 10*3/uL 0.0 per 100 WBC [place] CT ABDOMEN PELVIS W IV CONTR AST Additional Contrast? Noneon 02-05-2019 Tito, Mhpn Incoming Radiant Results From [employer] - 02/05/2019 6:20 PM EST EXAMINATION: CT [...] pathologic adenopathy. Bones/Soft Tissues: Normal IMPRESSION: Ileus [place] EXAMINATION: CT OF THE ABDOMEN AND [...] is no pathologic adenopathy. Bones/Soft Tissues: Normal [place] Ileus [place] Comprehensive Metabolic Pane karan 02-05-2019 Albumin [Mass/Vol] 4.6 g/dL 3.5 - 5.2 g/dL [place] Albumin/Globulin [Mass ratio] 1.4 {ratio} [place] ALP [Catalytic activity/Vol] 88 U/L 40 - 129 U/L [place] ALT [Catalytic activity/Vol] 43 U/L High 5 - 41 U/L [place] Anion gap [Moles/Vol] 19 mmol/L High 9 - 17 mmol/L [place] AST [Catalytic activity/Vol] 23 U/L <40 [place] Bilirubin Ql (U) 1.37 mg/dL High 0.3 - 1.2 mg/dL [place] Bun/Cre Ratio 16 [place] Calcium [Mass/Vol] 9.4 mg/dL 8.6 - 10.4 mg/dL [place] Chloride [Moles/Vol] 96 mmol/L Low 98 - 107 mmol/L [place] CO2 [Moles/Vol] 21 mmol/L 20 - 31 mmol/L [place] Creatinine [Mass/Vol] 0.9 mg/dL 0.7 - 1.2 mg/dL [place] GFR >60 >60 mL/min [place] GFR Non- >60 >60 mL/min [place] Glucose [Mass/Vol] 119 mg/dL High 70 - 99 mg/dL [place] Interpretation and review of laboratory results Abnormal [place] Potassium [Moles/Vol] 4.2 mmol/L 3.7 - 5.3 mmol/L [place] Protein [Mass/Vol] 8.0 g/dL 6.4 - 8.3 g/dL [place] Sodium [Moles/Vol] 136 mmol/L 135 - 144 mmol/L [place] Urea nitrogen [Mass/Vol] 14 mg/dL 6 - 20 mg/dL [place] Lactic Acid, Plasmaon 2018 Interpretation and review of laboratory results Abnormal [place] Lactate [Moles/Vol] 2.4 mmol/L High 0.5 - 2.2 mmol/L [place] Lactic Acid, Whole Blood NOT REPORTED 0.7 - 2.1 mmol/L [place] Lipaseon 02-05-2019 Lipase [Catalytic activity/Vol] 32 U/L 13 - 60 U/L [place] Metabolic Panelon 02-05-2019 GFR/1.73 sq M predicted among non-blacks MDRD (S/P/Bld) [Vol rate/Area] [place] Comment on above: Average GFR for 40-4 9 years old: 99 mL/min/1.73sq m Chronic Kidney Disease: <60 mL/min/1.73sq m Kidney failure: <15 mL/min/1.73sq m eGFR calculated using average adult body mass. Additional eGFR calculator available at: http://www.[employer]/multiple_crcl_2012.htm Stage 1: Some kidney damage normal GFR Stage 2: Mild kidney damage GFR 60-89 Stage 3: Moderate kidney damage GFR 30-59 Stage 4: Severe kidney damage GFR 15-29 Stage 5: Severe kidney damage GFR <15 ESRD - chronic treatment by dialysis or transplant Vital Signs Date Time Vital Sign Value Performing Clinician Rochelle cerrato 10-11-2022 15:03-0400 Diastolic blood pressure 81 mm[Hg] PHYSICIAN NO [facility] 10-11-2022 15:03-0400 Heart rate 75 /min PHYSICIAN NO [facility] 10-11-2022 15:03-0400 Respiratory rate 20 /min PHYSICIAN NO [facility] 10-11-2022 15:03-0400 SaO2% (BldA) [Mass fraction] 97 % PHYSICIAN NO [facility] 10-11-2022 15:03-0400 Systolic blood pressure 146 mm[Hg] PHYSICIAN NO [facility] 10-11-2022 12:17-0400 Body temperature 98.3 [degF] PHYSICIAN NO [facility] 10-11-2022 12:12-0400 Body height 175.26 cm PHYSICIAN NO [facility] 10-11-2022 12:12-0400 Body weight 128.6 kg PHYSICIAN NO [facility] 08-18-2022 12:04-0400 Body temperature 97.9 [degF] PHYSICIAN NO [facility] 08-18-2022 11:58-0400 Body height 177.8 cm PHYSICIAN NO [facility] 08-18-2022 11:58-0400 Body weight 129.36 kg PHYSICIAN NO [facility] 08-18-2022 11:58-0400 Diastolic blood pressure 115 mm[Hg] PHYSICIAN NO [facility] 08-18-2022 11:58-0400 Heart rate 107 /min PHYSICIAN NO [facility] 08-18-2022 11:58-0400 Respiratory rate 20 /min PHYSICIAN NO [facility] 08-18-2022 11:58-0400 SaO2% (BldA) [Mass fraction] 97 % PHYSICIAN NO [facility] 08-18-2022 11:58-0400 Systolic blood pressure 159 mm[Hg] PHYSICIAN NO [facility] 12-19-2021 18:32-0400 Body temperature 98.1 [degF] PHYSICIAN NO [facility] 12-19-2021 18:32-0400 Diastolic blood pressure 105 mm[Hg] PHYSICIAN NO [facility] 12-19-2021 18:32-0400 Heart rate 106 /min PHYSICIAN NO [facility] 12-19-2021 18:32-0400 Respiratory rate 20 /min PHYSICIAN NO [facility] 12-19-2021 18:32-0400 SaO2% (BldA) [Mass fraction] 96 % PHYSICIAN NO [facility] 12-19-2021 18:32-0400 Systolic blood pressure 153 mm[Hg] PHYSICIAN NO [facility] 12-19-2021 17:44-0400 Body height 177.8 cm PHYSICIAN NO [facility] 12-19-2021 17:44-0400 Body weight 134.55 kg PHYSICIAN NO [facility] 12-17-2021 09:40-0400 Body height 177.8 cm PHYSICIAN NO [facility] 12-17-2021 09:40-0400 Body temperature 98.1 [degF] PHYSICIAN NO [facility] 12-17-2021 09:40-0400 Body weight 134 kg PHYSICIAN NO [facility] 12-17-2021 09:40-0400 Diastolic blood pressure 108 mm[Hg] PHYSICIAN NO [facility] 12-17-2021 09:40-0400 Heart rate 114 /min PHYSICIAN NO [facility] 12-17-2021 09:40-0400 Respiratory rate 20 /min PHYSICIAN NO [facility] 12-17-2021 09:40-0400 SaO2% (BldA) [Mass fraction] 98 % PHYSICIAN NO [facility] 12-17-2021 09:40-0400 Systolic blood pressure 171 mm[Hg] PHYSICIAN NO [facility] 12-02-2021 14:50-0400 Body height 177.8 cm PHYSICIAN NO [facility] 12-02-2021 14:50-0400 Body temperature 98.6 [degF] PHYSICIAN NO [facility] 12-02-2021 14:50-0400 Body weight 133.2 kg PHYSICIAN NO [facility] 12-02-2021 14:50-0400 Diastolic blood pressure 102 mm[Hg] PHYSICIAN NO [facility] 12-02-2021 14:50-0400 Heart rate 117 /min PHYSICIAN NO [facility] 12-02-2021 14:50-0400 Respiratory rate 18 /min PHYSICIAN NO [facility] 12-02-2021 14:50-0400 SaO2% (BldA) [Mass fraction] 98 % PHYSICIAN NO [facility] 12-02-2021 14:50-0400 Systolic blood pressure 174 mm[Hg] PHYSICIAN NO [facility] 06-08-2021 14:28-0400 Heart rate 117 /min Fatoumata Tillman CNP Work Phone: [facility] 06-08-2021 14:28-0400 SaO2% (BldA) [Mass fraction] 95 % Fatoumata Tillman CNP Work Phone: [facility] 06-08-2021 14:22-0400 Body height 177.8 cm Fatoumata Tillman CNP Work Phone: [facility] 06-08-2021 14:22-0400 Body mass index (BMI) [Ratio] 44.77 kg/m2 Fatoumata Sanchez APRN - [employer] LINE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: [facility] 06-08-2021 14:22-0400 Body temperature 98.1 [degF] Fatoumata Sanchez MASTER [employer] - [employer]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: [facility] [employer] 06-08-2021 14:22-0400 Body weight 141.52 kg Fatoumata Sanchez MASTER [employer] - [employer]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: [facility] [employer] 06-08-2021 14:22-0400 Diastolic blood pressure 120 mm[Hg] Fatoumata Sanchez MASTER [employer] - [employer]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: [facility] [employer] 06-08-2021 14:22-0400 Respiratory rate 18 /min Fatoumata Sanchez MASTER [employer] - [employer]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: [facility] [employer] 06-08-2021 14:22-0400 Systolic blood pressure 170 mm[Hg] Fatoumata Sanchez MASTER [employer] - [employer]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: [facility] 03-19-2020 23:45-0500 BP Diastolic 101 mm[Hg] [facility] [place] 03-19-2020 23:45-0500 BP Systolic 148 mm[Hg] [facility] [place] 03-19-2020 23:45-0500 Pulse (Heart Rate) 117 /min [facility] 03-19-2020 23:45-0500 Pulse Oximetry 94 % [facility] [place] 03-19-2020 23:45-0500 Respiratory Rate 23 /min [facility] [place] 03-19-2020 19:57-0500 Body Temperature 99.9 [degF] [facility] [place] 03-19-2020 17:38-0500 BMI (Body Mass Index) 45.92 kg/m2 [facility] 03-19-2020 17:38-0500 Body weight 145.15 kg [facility] [place] 03-19-2020 17:38-0500 Height 177.8 cm [facility] [place] 10-21-2019 17:46-0400 BP Diastolic 103 mm[Hg] [facility] [place] 10-21-2019 17:46-0400 BP Systolic 163 mm[Hg] [facility] [place] 10-21-2019 17:37-0400 Pulse (Heart Rate) 109 /min [place] 10-21-2019 17:37-0400 Respiratory Rate 18 /min [place] 10-21-2019 16:02-0400 BMI (Body Mass Index) 44.3 kg/m2 [place] 10-21-2019 16:02-0400 Body Temperature 97 [degF] [place] 10-21-2019 16:02-0400 Body weight 136.08 kg [place] 10-21-2019 16:02-0400 Pulse Oximetry 96 % [place] 02-07-2019 08:18-0500 Body Temperature 97.7 [degF] Dta Jacquelyn [place] 02-07-2019 08:18-0500 BP Diastolic 102 mm[Hg] [place] 02-07-2019 08:18-0500 BP Systolic 132 mm[Hg] [place] 02-07-2019 08:18-0500 Pulse (Heart Rate) 76 /min [place] 02-07-2019 08:18-0500 Pulse Oximetry 96 % [place] 02-07-2019 08:18-0500 Respiratory Rate 16 /min Dat [place] 02-07-2019 04:51-0500 BMI (Body Mass Index) 42.06 kg/m2 [place] 02-07-2019 04:51-0500 Body weight 129.18 kg [place] 02-06-2019 08:10-0500 Height 175.3 cm [place] Encounters Encounter Date Encounter Type Care Provider Facility Start: 02-27-2024 End: 02-27-2024 Emergency department patient visit Med Koenig Facility:[facility] Start: 02-26-2024 End: 02-26-2024 ambulatory Yana Navas RN [facility] Start: 02-15-2024 End: 02-15-2024 Emergency department patient visit Jenelle Judge Facility:[facility] Start: 07-04-2023 End: 07-04-2023 Emergency department patient visit [facility] Start: 11-17-2022 End: 11-17-[address] [facility] Start: 10-31-2022 End: 10-31-[address] [facility] Start: 10-11-2022 End: 10-11-2022 Emergency department patient visit PHYSICIAN NO [facility] Work Phone: Start: 08-18-2022 End: 08-18-2022 Emergency department patient visit PHYSICIAN NO [facility] Work Phone: Start: 05-15-2022 End: 05-16-[address] NONE LISTED REQUEST Facility:[facility] Start: 05-11-2022 End: 05-11-[address] NONE LISTED REQUEST Facility:[facility] Start: 01-21-2022 End: 01-21-2022 ambulatory PHYSICIAN NO [facility] Work Phone: Start: 01-21-2022 End: 01-21-2022 Discharged Recurring PHYSICIAN NO [facility] [address] Start: 12-19-2021 End: 12-19-2021 Emergency department patient visit PHYSICIAN NO [facility] Start: 12-17-2021 End: 12-17-2021 Emergency department patient visit PHYSICIAN NO [facility] Start: 12-02-2021 End: 12-02-2021 Emergency department patient visit PHYSICIAN NO [facility] Start: 06-08-2021 End: 06-08-2021 Emergency department patient visit Fatoumata Sanchez APRN - M[employer]IC[employer] LINE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: [facility] Comment on above: Enteritis (Primary D x) Start: 03-19-2020 End: 03-20-2020 Emergency department patient visit [facility] Comment on above: COVID-19 (Primary Dx ) Start: 10-21-2019 End: 10-21-2019 Emergency department patient visit [facility] Comment on above: Left Achilles tendin itis (Primary Dx) Start: 02-05-2019 End: 02-07-2019 Evaluation and management of inpatient Dat Jean Baptiste [facility] Comment on above: Ileus [...] abdomen & pelvis w/contrast material Fatoumata Sanchez MASTER [employer] - [employer]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: Start: 06-08-2021 Comprehensive metabo lic panel Fatoumata Sanchez MASTER [employer] - [employer]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: Start: 03-19-2020 Ct thorax w/contrast material Arabella Blandon Work Phone: Start: 03-19-2020 COVID-19 [facility] Work Phone: Start: 03-19-2020 Iaadiadoo influenza [facility] Work Phone: Start: 03-19-2020 Assay of [...] Phone: Start: 02-06-2019 Urinalysis microscop ic only [employer] Work Phone: Start: 02-06-2019 Urnls dip stick/tabl et rgnt auto w/o microscopy [employer] Work Phone: Start: 02-05-2019 Cul bact stool aerob ic isol salmonella&shigell [employer] Work Phone: Start: 02-05-2019 Toxin/antitoxin assa y tissue culture [facility] Work Phone: Start: 02-05-2019 Ct abdomen & pelvis w/contrast material [facility] Work Phone: Start: 02-05-2019 Assay of lactate [facility] Work Phone: Start: 02-05-2019 Assay of lipase [facility] Work Phone: Start: 02-05-2019 Blood count complete automated [employer] [place] Work Phone: Start: 02-05-2019 Comprehensive metabo lic panel [employer] Work Phone: SARS Antigen (LFIA) PHYSICIA N NO FAMILY Plan of Treatment Date Care Activity Detail Author Start: 02-01-2024 Adult BMI Screening Adult BMI Screen ing [facility] Start: 02-01-2024 Depression Screening Depression Scre ening [facility] Start: 02-01-2024 Tobacco Screening Tobacco Screening [facility] Start: 11-12-2023 Influenza vaccination Influenza Vacc ine [facility] Start: 2023 Screening for malign ant neoplasm of colon Colonoscopy [facility] Start: 06-08-2022 Creatinine measurement Creatinine mo [facility] Start: 06-08-2022 Potassium monitoring Potassium monit [facility] Start: 03-19-2021 Creatinine measurement Creatinine mo [place] Start: 03-19-2021 Potassium monitoring Pot[place]it [place] Start: 11-11-2020 Influenza vaccination Flu vaccine (# 1) [facility] Start: 02-07-2020 Creatinine measurement Creatinine [place] Start: 02-07-2020 Potassium monitoring Pot[place] monit [place] Start: 11-12-2019 Influenza vaccination Flu vaccine (# 1) [place] Start: 06-28-2019 Creatinine [place] Start: 06-28-2019 Potassium monitoring Pot[place] monit [place] Start: 11-11-2018 Influenza vaccination Flu vaccine (# 1) [place] Start: 2018 Diabetes screen Diabetes screen [place], [place] Start: 2018 Lipid panel Lipid screen [facility] Start: 2018 Lipid screen Lipid [place] Start: 2013 Diabetes screen Diabetes screen [facility] Start: 1997 DTaP,Tdap and Td Vaccines (1 - Tdap) DTaP,Tdap and Td Vaccines (1 - Tdap) [facility] Start: 1997 DTaP/Tdap/Td vaccine (1 - Tdap) DTaP/Tdap/Td vaccine (1 - Tdap) [facility] Start: 1993 HIV screen HIV screen [place] Start: 1993 HIV screening HIV screen [facility] Start: 1990 Depression Screen Depression Screen [facility] Start: 1989 DTaP/Tdap/Td vaccine (1 - Tdap) DTaP/Tdap/Td vaccine (1 - Tdap) [place] Start: 1983 COVID-19 Vaccine (1) COVID-19 Vaccin e (1) [facility] Start: 1978 Hepatitis C screening Hepatitis C sc reen [facility] End: 03-19-2020 Culture, Blood 1 Culture, Blood 1 Microbiology STAT One Time for 1 Occurrences starting 03/19/2020 until 03/19/2020 [facility] on above: One Time for 1 Occur rences starting 03/19/2020 until 03/19/2020 Culture, Blood 1 Culture, Blood 1 Microbiology STAT 03/19/2020 6:00 PM EST [facility] 12 Lead EKG 12 Lead ECG STAT 03/19/2020 5:53 PM EST [facility] Initiate Oxygen Ther apy Protocol Initiate Oxygen Therapy Protocol Respiratory Care Routine Daily until discontinued starting 02/05/2019 [facility] Comment on above: Daily until disconti nued starting 02/05/2019 Nasal Cannula Oxygen Nasal Cannu la Oxygen Respiratory Care STAT Daily until discontinued starting 03/19/2020 [facility] Comment on above: Daily until disconti nued starting 03/19/2020 Patient Education [facility] Work Phone: Patient referral [facility] Work Phone: End: 02-05-2019 Pulse Oximetry Spot Check Pulse Oximetry Spot Check Respiratory Care Routine One Time for 1 Occurrences starting 02/05/2019 until 02/05/2019 [facility] Comment on above: One Time for 1 Occur rences starting 02/05/2019 until 02/05/2019 End: 06-08-2021 Urinalysis with Microscopic Urinalysis with Microscopic Lab STAT One Time for 1 Occurrences starting 06/08/2021 until 06/08/2021 [facility] Work Phone: Comment on above: One Time for 1 Occur rences starting 06/08/2021 until 06/08/2021 Payers Date Payer Category Payer Unknown [id number] 2022 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 [employer] [id number] 1978 Unknown [id number] 1978 Unknown [id number] 1959 Self-pay 1959 Worker's Compensation [id number] Unknown [id number] Unknown [id number] Social History Date Type Detail Facility Start: 10-21-2019 End: 10-04-2022 Tobacco smoking status NHIS [place] Start: 10-21-2019 End: 10-04-2022 Tobacco use and exposure Never used [place] Start: 10-21-2019 End: 06-08-2021 Alcohol intake Current non-drinker of alcohol (finding) [place] Start: 1980 Sex Assigned At Not on file [place] Start: 05-29-2021 End: 06-08-2021 Exposure to SARS-CoV-2 (event) Not sure [place] Start: 12-02-2021 End: 12-19-2021 Tobacco smoking status NHIS Never smoked tobacco (finding) [facility] Start: 1980 Sex Assigned At Male F [facility] End: 09-06-2022 History of tobacco use Current smoker [facility] End: 09-06-2022 History of tobacco use Cigarette Smoker [facility] Start: 01-31-2023 Alcoholic beverage intake Current drinker of alcohol (finding) [facility] Start: 01-31-2023 History of Social function [facility] Start: 01-31-2023 Tobacco use panel [facility] Adolescent depressio n screening assessment 2 [facility] Start: 10-04-2022 Alcohol Comment Social [facility] Start: 09-22-2022 Sex Male (finding) [facility] Clinical Notes 06-08-2021 to 02-26-2024 [...] (e.g., disoriented, slurred speech) Protocols used: Breathing [id number] documented in this encounter [facility] 02-26-2024 Telephone encounter Note ----- Message from Livia sent at 02/26/2024 7:11 AM EST ----- Contract: 198 Matti started taking Gabapentin 600 mg last night and this morning he feels dizzy and disoriented with heavy breathing [facility] 02-26-2024 Telephone encounter Note Contract: [id number] [...] (e.g., disoriented, slurred speech) Protocols used: Breathing Bskx[facility]poeti-U[facility] 02-01-2023 Note This report has been cancelled. [facility] 02-01-2023 Note This report has been cancelled. [facility] 11-17-2022 Note Cardiovascular Labor atory Report [...] be checked in a week Follow-up with [facility] in the [place] [facility] in the next 2 to 3 [...] left radial artery was obtained. A 6 Frisian glide sheath was inserted without difficulty. Bilateral [...] INDICATIONS: Abnormal stress test, reduced ejection fraction [facility] 11-17-2022 Note Patient: Henrik stark Procedure Information Date/Time: 11/17/22 1030 Procedure: Coronary angiography (Bilateral) Location: [facility] EXPLOSIVE ORDNANCE DISPOSAL SPECIALIST 3 / [facility] VASCULAR LAB (Cath) Providers: Rafat Garcia [...] consented to blood products. Additional Equipment Requests [facility] 10-31-2022 Note [facility] Cardiology Clinic Note Chief Complaint: Patient here for follow up [facility] for chest pain. He was seen [...] pending the above Rafat Garcia MD, MPH, [facility], [facility], [facility] Interventional Cardiology Pager Email: [email or web address] 06-08-2021 Hospital Discharg e instructions Fatoumata Sanchez, MASTER OCEAN YACHT - MULTICUT LINE OPERATOR - 06/08/2021 Increase your fluid intake. Take Bentyl as prescribed. Follow-up with PCP for reevaluation in the next couple of days. Avoid dairy, spicy and fatty foods for the next week. Return here for increased pain, fever, difficulty breathing, vomiting or new or worsening signs or symptoms. The following attachments cannot be sent through Care Everywhere.Gastroenteritis (Bruneian)documented in this encounter [employer] Work Phone: Evaluation note Diagnosis Enteritis- Primary Other and unspecified noninfectious gastroenteritis and colitis documented in this encounter I AM AT Phone: evaluation noteNo assessment information available [facility] Work Phone: Hospital Discharge instructions Additional Instructions Rest ice elevate Use the wrist splint for comfort Take ibuprofen every 6 hours for discomfort Follow-up with either [facility] or [facility] Follow-up with [facility] especially if not getting better [facility] Work Phone: Hospital Discharge instructions Additional Instructions Return for new or worsening symptoms Follow-up with family doctor and [facility] Work Phone: Hospital Discharge instructions Additional Instructions Please return to emergency department for any new or worrisome symptoms including any weakness, numbness, headache, vision changes. Follow-up with your family physician as soon as possible.[facility] Work Phone: InstructionsNot on filedocumented in this encounter [facility] Discharge Instructions * Attachments The following attachments cannot be sent through Care Everywhere. * Tendon Injury (Tendinopathy) (Bruneian) documented in this encounter* Instructions* Lobito Sidhu [...] Everywhere. * Coronavirus Disease (COVID-19): General Info (Bruneian) * Coronavirus Disease (COVID-19): Isolation (Bruneian) documented in this encounter* Instructions* Bambi Segal [...] Where can you learn more? Go to [email or web address] and sign in to your [employer] account. Enter M933 in the Search Health Information box to learn more about Learning About [employer]. If you do not have an account, please click on the Sign Up Now link. Current as of: January 17, 2018 Content Version: [id number] [employer]. Care instructions adapted under license by [employer]. If youhave questions about a medical condition or this instruction, always ask your healthcare professional. [employer] disclaims any warranty or liability for your use of this information. documented in this encounter Assessments Diagnosis Left Achilles tendinitis Achilles bursitis or tendinitis Diagnosis COVID-19- Primary Diagnosis Abdominal pain with Ileus- Primary Abdominal pain, unspecified site Ileus (HCC) Paralytic ileus Essential hypertension Unspecified essential hypertension Advance Directives No Advanced Directives Records FoundDocuments on File Type Date Recorded Patient Maori Physiotherapist Expl anation Advance Directives and Living Will Power of Automotive Glass Mechanic Latest Code Status on File Code Status Date Activated Date Inactivated Comments Full Code 02/05/2019 9:40 PM 02/07/2019 3:36 PM Full Code 06/22/2016 5:58 AM 06/22/2016 7:53 PM Documents on File Type Date Recorded Patient Maori Physiotherapist Expl anation ACP-Advance Directive ACP-Power of Automotive Glass Mechanic Latest Code Status on File Code Status Date Activated Date Inactivated Comments Full Code 02/05/2019 9:40 PM Advance Directive Response Recorded Date/ Time Advance Directives No November 3:14pm Advance Directive Response Recorded Date/ Time Advance Directives No November 2:14pm Hospital Course * Tal Gonzalez MD - 02/07/2019 11:47 AM EST Tal Gonzalez M.D. Internal Medicine Discharge Summary Patient ID: Henrik Cavanaugh [id number] Admission date: 02/05/2019 Discharge date: 02/07/2019 [...] no PCP but will be referred to [facility]. Discharge Exam: GEN: Awake, alert and [...] Discharge Medications: Henrik Cavanaugh Home Medication Instructions [id number] Printed on:02/07/19 1147 Medication Information amLODIPine (NORVASC) 5 MG tablet Take 1 tablet by mouth daily Patient Instructions: Activity: activity as tolerated Diet: regular diet Wound Care: none needed Follow up with [facility] in 1[facility]2 weeks CORE MEASURES on Discharge (if applicable) DORCAS/ARB in CHF: N/A ASA in [place]: N/A Statin in [place]: N/A Statin in CVA: N/A Antiplatelet in CVA: N/A Total time spent on discharge services: 25 minutes Including the following activities: Evaluation and Management of patient Discussion with patient and/or surrogate about current care plan Coordination with Case Management and/or Manager Residential Coordination of care with Consultants (if applicable) [...] with office for clarification of dose/frequency. Megan Cheng RN - 02/06/2019 11:01 AM EST Dulcolax [...] of care. To: __Dr. Jean Baptiste From: [facility] Sender:_KSchwochowRN Phone Number:_[phone] This request is: Urgent - No Information [...] you. Signature Date Time * Jamir Reed, GLASS GRINDER, FAMILY DINNER SERVICE SPECIALIST - 02/06/2019 10:51 AM EST Social Work intial Assessment/Discharge Plan Diagnosis: Abdominal pain with Lleus Met with: Patient PCP: None. [facility] Payment Source: Private. No insurance. Advance Directives: None Code Status: Full Mental Status: Alert and oriented Living Arrangement: Patient lives at home in [place] with a roommate Support Systems: Roommate and [...] Needs/Discharge Plan: Patient will return home to [place] where he resides with a roommate. He [...] 5. Fluid Accumulation-No significant fluid accumulation, 6. Accordion Repairer Strength-Not measured Nutrition Risk Level: Moderate Nutrient Needs: Estimated Daily Total Kcal: 3111-6021(12-17) Estimated Daily Protein (g): 95-109(1.3-1.5) Estimated Daily [...] Weight Change: , 2% loss from 290# [place] [employer] Wt: 160 lb (72.6 kg), % [place] [employer] 178% BMI Classification: BMI > or [...] Patient/Family Education, Monitor Bowel Function Contact Number: [phone] Marija Horta RN - 02/06/2019 4:31 AM [...] oriented to room, pr watching tv when corporate training manager left room documented in this encounter Chief [...] nausea hit h ead ico @janelle rich 6 numbness in hands/face Summary Purpose Family History [...] NO FAMILY Primary Care [facility] Active Team Status: Inactive Member [...] NO FAMILY Primary Care Provider Active Kris aNrvaez DO Emergency Provider Active Team Status: Inactive Member Role Status Dates Isabel Rodas NP-C Primary Care Provider Active Socorro Osullivan MD Emergency Provider Active Fisher Scallop Relationship Specialty Start Date End Date Isabel Rodas APRN-MULTICUT LINE OPERATOR [address] [place] [address] PCP - General Family Medicine 10/04/22 Goals [...] CREATED AUTHOR AUTHOR'S ORGANIZ ATION 03/04/2023 [facility] DATE CREATED AUTHOR AUTHOR'S ORGANIZ ATION 07/06/2023 [facility] DATE CREATED AUTHOR AUTHOR'S ORGANIZ ATION 05/11/2024 [facility] FOR RECORDS PERTAINING TO PATIENTS [...] BE BASED ON THE PRIMARY CLINICAL RECORDS. [facility] [employer] provides no warranty or guarantee of the accuracy or completeness of information in this document.
[2024-06-21 09:57] LABS: Basophils Absolute Auto 0.1 10^3/uL (0.0-0.1); Basophils Percent Auto 0.9 % (0.2-2.0); Eosinophils Absolute Auto 0.3 10^3/uL (0.0-0.7); Eosinophils Percent Auto 2.5 % (0.9-7.0); Hemoglobin 16.4 g/dL (14.0-18.0); Immature Granulocytes Abs Auto 0.08 10^3/uL (0.00-0.03); Immature Granulocytes Pct Auto 0.8 % (0.0-0.5); Lymphocytes Absolute Auto 2.1 10^3/uL (1.2-3.8); Lymphocytes Percent Auto 20.8 % (20.5-60.0); Mean Corpuscular HGB Conc 34.9 g/dL (29.9-35.2); Mean Corpuscular Hemoglobin 31.1 pg (25.9-34.0); Mean Platelet Volume 10.1 fL (9.5-13.5); Monocytes Percent Auto 9.6 % (1.7-12.0); Neutrophils Absolute Auto 6.5 10^3/uL (1.4-6.5); Neutrophils Percent Auto 65.4 % (43.0-75.0); Platelet Count 235 10^3/uL (150-450); Red Blood Count 5.28 10^6/uL (4.70-6.10); Red Cell Distribution Width 12.5 % (11.0-15.0); White Blood Count 9.9 10^3/uL (4.0-11.0)
[2024-06-21 10:13] LABS: Prothrombin Time 10.6 sec (9.0-11.6)
[2024-06-21 10:17] LABS: Anion Gap 11.2; BUN Creatinine Ratio 9.9; Calcium 9.5 mg/dL (8.5-10.1); Carbon Dioxide 31.2 mmol/L (21.0-32.0); Chloride 102 mmol/L (98-107); Estimated GFR (African America >60 (>=60 mL/min/1.73m^2); Estimated GFR (Non-African Ame >60 (>=60 mL/min/1.73m^2); Glucose 115 mg/dL (74-106); Potassium 4.4 mmol/L (3.5-5.1); Sodium 140 mmol/L (136-145)
[2024-06-21 11:17] LABS: Partial Thromboplastin Time 26.2 sec (22.3-36.2)
== END 2024-06-21 08:56 | disposition home or self-care (01) ==
LOC: PST 08:56
PROVIDERS: PCP Nurse Practitioner; Visit Provider Orthopaedic Surgery
DX: Z01.810 Encounter for preprocedural cardiovascular examination (principal); Z01.812 Encounter for preprocedural laboratory examination; I11.0 Hypertensive heart disease with heart failure; I50.21 Acute systolic (congestive) heart failure; M25.561 Pain in right knee; I25.10 Atherosclerotic heart disease of native coronary artery without angina pectoris; I25.2 Old myocardial infarction
CPT/HCPCS: 71046; 80048; 80076; 83880; 85025; 85610; 85730; 93005

== ENCOUNTER 2024-06-21 11:15 | Outpatient (OUT) | payer OTHER, SELFPAY ==
--- OUTSIDE RECORDS SUMMARY | 2024-06-21 11:32 | XMS_ITS | CCD ---
Author Organization [facility] Care Team Providers Care Costume Specialist Name Role Phone Unavailable Primary Care Provider Unavailabl e Carina Hernandez Primary Care Provider Unavailable Primary Care Provider Unavailabl e NO FAMILY, PHYSICIAN Primary Care Provider Unava ilARSALAN Hurtado Emergency Provider Alfie [facility] Jenelle Barrow Emergency Provider MEENAKSHI Schmidt Emergency Provider [phone] NO FAMILY, PHYSICIAN Primary Care Provider Unava ilARSALAN Hurtado Emergency Provider [phone] Alfie [facility] Jenelle Emergency Provider [phone] MEENAKSHI Schmidt Emergency Provider [phone] REQUEST, NONE LISTED Primary Care Unavaila ble [...] EHAB Referring Unavailable Isabel Vázquez Primary Care [facility] er Med Koenig Admitting Unavailable Isabel Rodas Primary Care Unavailable Med Koenig Attending Unavailable Jenelle Judge Attending Unavailable Jenelle Judge Admitting Unavailable Isabel Rodas Primary Care Unavailable Allergies Allergy Classification Reported Allergen(s) Allergy Type Date of Onset Reaction(s) Facility (11 sources) Amoxicillin; Translations: [AMOXICILLIN] Drug Allergy 6 Unknown Reaction [place], [place] (6 sources) fentaNYL; Translations: [FENTANYL] Drug Allergy 9 [place], [place] (11 sources) predniSONE; Translations: [PREDNISONE] Drug Allergy 6 Other (See Comments) [place] (1 source) Amoxicillin Drug Allergy 3 [facility] Repository (1 source) predniSONE Drug Allergy 3 [facility] Repository (1 source) amLODIPine; Translations: [AMLODIPINE] Drug Allergy 3 [facility] Repository (1 source) Amoxicillin Drug Allergy 4 [facility] Repository (1 source) predniSONE Drug Allergy 4 [facility] Repository Medications Current Medications Medication Drug Class(es) Dates Sig (Normalized) Sig (Original) acetaminophen 500 mg oral tablet (4 sources) Start: 03-19-2020 acetaminophen (TYLENOL) tablet 1,000 mg Start: 03-19-2020 take 2 tablets by mo [facility] every six hours as needed for pain [...] Start: 06-08-2021 take 1 capsule by mo [facility] four times daily dicyclomine (BENTYL) 10 MG [...] gap [Moles/Vol] 12.9 mmol/L Normal 6.0-15.0 [facility] Comment on above: Performed By: #### C BC, BMP, PTT, PT, HS TROP #### [facility] [address] Calcium [Mass/Vol] 9.2 mg/dL Normal 8.6-10.3 The [facility] Comment on above: Performed By: #### C BC, BMP, PTT, PT, HS TROP #### [facility] [address] [place] [address] [place] Chloride [Moles/Vol] 103 mmol/L Normal 98-107 [facility] Comment on above: Performed By: #### C BC, BMP, PTT, PT, HS TROP #### [facility] [address] CO2 [Moles/Vol] 26.4 mmol/L Normal 21.0-31.0 The [facility] Comment on above: Performed By: #### C BC, BMP, PTT, PT, HS TROP #### [facility] [address] [place] [address] [place] Creatinine [Mass/Vol] 0.89 mg/dL Normal 0.70-1.30 [facility] Comment on above: Performed By: #### C BC, BMP, PTT, PT, HS TROP #### [place] [address] [place] Creatinine Clr Calc Pharmacy 140.18 Normal [facility] Comment on above: Result Comment: PERF ORMED BY: [place] [address] PATHOLOGIST INSTRUCTOR BUS TROLLEY AND TAXI FRANK ARAUJO M.D. Performed By: #### C BC, BMP, PTT, PT, HS TROP #### [place] [address] [place] GFR/1.73 sq M.predicted MDRD (S/P/Bld) [Vol rate/Area] mL/min/{1.73_m2} Normal [facility] Comment on above: Performed By: #### C BC, BMP, PTT, PT, HS TROP #### [facility] [address] Glucose [Mass/Vol] 108 mg/dL High 70-100 The [facility] Comment on above: Result Comment: [facility] Glucose Reference Range is dependent on time and content of last meal. Glucose of more than 200 mg/dL in a nonstressed, ambulatory subject supports the diagnosis of Diabetes Mellitus. ADA recommended reference range Performed By: #### C BC, BMP, PTT, PT, HS TROP #### [facility] [address] [place] [id number] [facility] Potassium [Moles/Vol] 4.3 mmol/L Normal 3.5-5.1 [facility] Comment on above: Performed By: #### C BC, BMP, PTT, PT, HS TROP #### [facility] [address] Sodium [Moles/Vol] 138 mmol/L Normal 136-145 [facility] Comment on above: Performed By: #### C BC, BMP, PTT, PT, HS TROP #### [facility] [address] [place] [id number] [facility] Urea nitrogen [Mass/Vol] 10 mg/dL Normal 7-25 [facility] Comment on above: Performed By: #### C BC, BMP, PTT, PT, HS TROP #### [facility] [address] angio neckon 02-27-2024 CT angio neck [facility] [place] [address] CT Scan Report Signed Patient: Henrik Cavanaugh MR#: [id number] 168 : 1980 Acct:[id number] Age/Sex: 44 / M ADM Date: 02/27/24 Loc: ER Room: Type: [facility] ER Attending Dr: Copies to: Med Koenig DO Ordering Provider: Med Koenig DO Date of Service: 02/27/24 CT/CT head/brain wo con: r/o post circ stroke ([id number]) CT/CT angio neck: r/o post circ stroke ([id number]) CT/CT angio head: r/o post circ stroke [...] patent Posterior cerebral arteries: patent. 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 Intracranial segments of the internal carotid arteries: [...] Anguiano Jr., D.O.02/27/2024 9:42 AM Dictation Location: [place] [address] Transcribed By: [facility] 02/27/24 0942 Dictated By: Wayne Anguiano Jr, DO 02/27/24 0938 Signed By: 02/27/24941 Normal [facility] Complete Blood Count Auto Di ffon 02-27-2024 Basophils (Bld) [#/Vol] 0.1 10*3/uL Normal 0.0-0.2 [facility] Comment on above: Result Comment: PERF ORMED BY: [place] [address] PATHOLOGIST INSTRUCTOR BUS TROLLEY AND TAXI FRANK ARAUJO M.D. Performed By: #### C BC, BMP, PTT, PT, HS TROP #### [address] Basophils/100 WBC (Bld) 1.1 % Normal . [facility] Comment on above: Performed By: #### C BC, BMP, PTT, PT, HS TROP #### [address] Eosinophils (Bld) [#/Vol] 0.2 10*3/uL Normal 0.0-0.45 [facility] Comment on above: Performed By: #### C BC, BMP, PTT, PT, HS TROP #### [address] Eosinophils/100 WBC (Bld) 2.7 % Normal . [facility] Comment on above: Performed By: #### C BC, BMP, PTT, PT, HS TROP #### [address] Erythrocyte distribution width (RBC) [Ratio] 12.9 % Normal 12.0-14.8 [facility] Comment on above: Performed By: #### C BC, BMP, PTT, PT, HS TROP #### [address] Hematocrit (Bld) [Volume fraction] 46.1 % Normal 38.8-50.0 [facility] Comment on above: Performed By: #### C BC, BMP, PTT, PT, HS TROP #### [address] Hemoglobin (Bld) [Mass/Vol] 16.0 g/dL Normal 13.0-17.0 [facility] Comment on above: Performed By: #### C BC, BMP, PTT, PT, HS TROP #### [address] Lymphocytes (Bld) [#/Vol] 1.9 10*3/uL Normal 1.00-4.8 [facility] Comment on above: Performed By: #### C BC, BMP, PTT, PT, HS TROP #### [address] Lymphocytes/100 WBC (Bld) 22.3 % Normal . [facility] Comment on above: Performed By: #### C BC, BMP, PTT, PT, HS TROP #### [address] MCH (RBC) [Entitic mass] 30.7 pg Normal 27.5-35.2 [facility] Comment on above: Performed By: #### C BC, BMP, PTT, PT, HS TROP #### [address] MCV (RBC) [Entitic vol] 88.3 fL Normal 83.5-101 [facility] Comment on above: Performed By: #### C BC, BMP, PTT, PT, HS TROP #### [address] Mean Corpuscular HGB Conc 34.8 g/dL Normal 32.5-35.6 [facility] Comment on above: Performed By: #### C BC, BMP, PTT, PT, HS TROP #### [address] Monocytes (Bld) [#/Vol] 0.7 10*3/uL Normal 0.0-0.8 [facility] Comment on above: Performed By: #### C BC, BMP, PTT, PT, HS TROP #### [address] Monocytes/100 WBC (Bld) 19.04 % Normal 0.00-20.00 [facility] Comment on above: Performed By: #### C BC, BMP, PTT, PT, HS TROP #### [address] [address] [place] Monocytes/100 WBC (Bld) 8.7 % Normal . [facility] Comment on above: Performed By: #### C BC, BMP, PTT, PT, HS TROP #### [facility] [address] Neutrophils (Bld) [#/Vol] 5.5 10*3/uL Normal 1.8-7.7 [facility] Comment on above: Performed By: #### C BC, BMP, PTT, PT, HS TROP #### [facility] [address] Neutrophils/100 WBC (Bld) 65.2 % Normal . [facility] Comment on above: Performed By: #### C BC, BMP, PTT, PT, HS TROP #### [address] NRBC% 0.2 /100{WBC} Normal 0-0.5 [facility] Comment on above: Performed By: #### C BC, BMP, PTT, PT, HS TROP #### [facility] [address] [place] [address] [place] Platelet mean volume (Bld) [Entitic vol] 8.8 fL Normal 6.6-10.1 The [facility] Comment on above: Performed By: #### C BC, BMP, PTT, PT, HS TROP #### [facility] [address] [place] [address] [place] Platelets (Bld) [#/Vol] 230 10*3/uL Normal 150-450 [facility] Comment on above: Performed By: #### C BC, BMP, PTT, PT, HS TROP #### [facility] [address] [place] [address] [place] RBC (Bld) [#/Vol] 5.22 10*6/uL Normal 3.90-5.60 [facility] Comment on above: Performed By: #### C BC, BMP, PTT, PT, HS TROP #### [place] [address] [place] WBC (Bld) [#/Vol] 8.5 10*3/uL Normal 4.1-10.5 [facility] Comment on above: Performed By: #### C BC, BMP, PTT, PT, HS TROP #### [place] [id number] [facility] ECG 12 lead ECGon 02-27-2024 ECG 12 lead ECG [facility] [place] [address] [place] [address] Electrocardiograph Report Signed Patient: Henrik Cavanaugh MR#: [id number] 168 : 1980 Acct:[id number] Age/Sex: 44 / M ADM Date: 02/27/24 Loc: ER Room: Type: [facility] ER Attending Dr: Ordering Provider: Med Koenig [...] fascicular block Confirmed by Med Koenig DO ([id number]) on 02/27/2024 3:20:31 PM Referred By: Electronically Signed By: Med Koenig DO Transcribed By: MUS Signed By Med Koenig DO 1520 Normal [facility] Partial Thromboplastin Timeo n 02-27-2024 aPTT Coag (Bld) [Time] 29.9 s Normal 25.1-36.5 [facility] Comment on above: Result Comment: A he matocrit value greater than 55% may lead to inaccurate results in coagulation testing. Patients having hematocrit values >55% require a special collection tube for coagulation studies. Please contact the laboratory at [phone] for redraw instructions. PERFORMED BY: [place] [id number] PATHOLOGIST INSTRUCTOR BUS TROLLEY AND TAXI FRANK ARAUJO M.D. Performed By: #### C BC, BMP, PTT, PT, HS TROP #### [place] [id number] [facility] Prothrombin Time INRon 02-26 INR Coag (PPP) [Relative time] 0.9 {INR} Normal [facility] Comment on [...] BC, BMP, PTT, PT, HS TROP #### [address] PT Coag (PPP) [Time] 10.8 s Normal 9.0-12.9 [facility] Comment on above: Result Comment: A he matocrit value greater than 55% may lead to inaccurate results in coagulation testing. Patients having hematocrit values >55% require a special collection tube for coagulation studies. Please contact the laboratory at [phone] for redraw instructions. Performed By: #### C BC, BMP, PTT, PT, HS TROP #### [address] Troponin I High Sensitivityo n 02-27-2024 Troponin I High Sensitivity 12.7 pg/mL Normal 0.0-20.0 [facility] Comment on above: Result Comment: PERF ORMED BY: [place] [address] PATHOLOGIST INSTRUCTOR BUS TROLLEY AND TAXI FRANK ARAUJO M.D. Performed By: #### C BC, BMP, PTT, PT, HS TROP #### [place] [id number] [facility] Urinalysison 02-27-2024 Appearance (U) Clear Normal Clear [facility] Comment on above: Order Comment: Name Collection Type:: Clean-Voided Midstream Performed By: #### U A #### [address] Bilirubin,Urine Negative Normal Negative The [facility] Comment on above: Order Comment: Name Collection Type:: Clean-Voided Midstream Performed By: #### U A #### [place] [address] [place] Color (U) Light-Yellow Normal Yellow The [facility] Comment on above: Order Comment: Name Collection Type:: Clean-Voided Midstream Performed By: #### U A #### [address] Glucose Ql (U) Normal Normal Normal [facility] Comment on above: Order Comment: Name Collection Type:: Clean-Voided Midstream Performed By: #### U A #### [address] Ketones Ql (U) Negative Normal Negative [facility] Comment on above: Order Comment: Name Collection Type:: Clean-Voided Midstream Performed By: #### U A #### [address] Leukocyte esterase Test strip Ql (U) Negative Normal Negative [facility] Comment on above: Order Comment: Name Collection Type:: Clean-Voided Midstream Performed By: #### U A #### [place] [address] [place] Nitrite,Urine Negative Normal Negative [facility] Comment on above: Order Comment: Name Collection Type:: Clean-Voided Midstream Performed By: #### U A #### [place] [address] [place] Occult Blood,Urine Negative Normal Negative [facility] Comment on above: Order Comment: Name Collection Type:: Clean-Voided Midstream Result Comment: PERF ORMED BY: [place] [address] PATHOLOGIST INSTRUCTOR BUS TROLLEY AND TAXI FRANK ARAJUO M.D. Performed By: #### U A #### [place] [address] [place] pH (U) 5.5 [pH] Normal 5.0-9.0 [facility] Comment on above: Order Comment: Name Collection Type:: Clean-Voided Midstream Performed By: #### U A #### [address] Protein,Urine Negative Normal Negative [facility] Comment on above: Order Comment: Name Collection Type:: Clean-Voided Midstream Performed By: #### U A #### [address] Specificy [place],Urine 1.033 High 1.001-1.030 [facility] Comment on above: Order Comment: Name Collection Type:: Clean-Voided Midstream Performed By: #### U A #### [address] Urobilinogen,Urine Normal Normal Normal [facility] Comment on above: Order Comment: Name Collection Type:: Clean-Voided Midstream Performed By: #### U A #### [address] XR chest 1V portableon 02-26 XR chest 1V portable [facility] [place] [address] [place] [address] XRay Report Signed Patient: Henrik Cavanaugh MR#: [id number] 168 : 1980 Acct:[id number] Age/Sex: 44 / M ADM Date: 02/27/24 [...] Anguiano Jr. DDomitilaODomitila02/27/2024 8:28 AM Dictation Location: [place] [address] Transcribed By: [facility] 02/27/24 0828 Dictated By: Wayne Anguiano Jr, DO 02/27/24827 Signed By: 02/27/24827 Normal [facility] XR foot RT min 3V*on 024 XR foot RT min 3V* [facility] [place] [address] [place] [address] XRay Report Signed Patient: Henrik Cavanaugh MR#: [id number] 168 : 1980 Acct:[id number] Age/Sex: 44 / M ADM Date: 02/15/24 Loc: ER Room: Type: [facility] ER Attending Dr: Copies to: GRISELDA [...] Tejinder Alcantara M.D.02/15/2024 12:47 PM Dictation Location: [place] [address] Transcribed By: [facility] 02/15/24 1247 Dictated By: Tejinder Alcantara DO 02/15/24 1245 Signed By: 02/15/24 1247 Normal [facility] CBC with Diffon 07-04-2023 Abs. Basophil 0.06 k/uL Normal 0.00-0.20 [facility] Comment on above: Performed By: #### C RAMÓN MELTON, CP #### [facility] [address] [place] [id number] [place]: Alex Amador MD Abs.Imm.Granulocyte 0.03 k/uL Normal 0.00-0.30 [facility] Comment on above: Performed By: #### C RAMÓN MELTON, CP #### [facility] [address] [place] [id number] [place]: Alex Amador MD Abs.Neutrophil (Seg) 7.00 k/uL Normal 1.50-8.10 [facility] Comment on above: Performed By: #### C DP LIP, CP #### [address] [place], [facility] [place]: Alex Amador MD Basophils/100 WBC (Bld) 1 % Normal 0-2 [facility] Comment on above: Performed By: #### C DP LIP, CP #### [address] [place], [place] [address] [place]limer: Alex Amador MD Eosinophils (Bld) [#/Vol] 0.17 10*3/uL Normal 0.00-0.44 [facility] Comment on above: Performed By: #### C RAMÓN MELTON, CP #### [address] [place], [place] [address] Slimer: Alex Amador MD Eosinophils/100 WBC (Bld) 2 % Normal 1-4 [facility] Comment on above: Performed By: #### C RAMÓN MELTON, CP #### [address] [place], [place] [address] [place]er: Alex Amador MD Erythrocyte distribution width (RBC) [Ratio] 12.4 % Normal 11.8-14.4 [facility] Comment on above: Performed By: #### C DP LIP, CP #### [address] [place], [place] [address] [place]: Alex Amador MD Hematocrit (Bld) [Volume fraction] 44.6 % Normal 40.7-50.3 [facility] Comment on above: Performed By: #### C DP LIP, CP #### [address] [place], [facility] [place]: Alex Amador MD Hemoglobin (Bld) [Mass/Vol] 15.5 g/dL Normal 13.0-17.0 [facility] Comment on above: Performed By: #### C RAMÓN MELTON, CP #### [address] [place] [id number] [place]: Alex Amador MD Immature granulocytes/100 WBC (Bld) 0 % Normal 0 [facility] Comment on above: Performed By: #### C LINH LIP, CP #### [address] [place], [facility] [place]: Alex Amador MD Lymphocytes (Bld) [#/Vol] 1.59 10*3/uL Normal 1.10-3.70 [facility] Comment on above: Performed By: #### C RAMÓN MELTON, CP #### [address] [place], [place] [address] Slimer: Alex Amador MD Lymphocytes/100 WBC (Bld) 17 % Low 24-43 [facility] Comment on above: Performed By: #### C RAMÓN MELTON, CP #### [address] [place], [facility] [place]: Alex Amador MD MCH (RBC) [Entitic mass] 30.3 pg Normal 25.2-33.5 [facility] Comment on above: Performed By: #### C RAMÓN MELTON, CP #### [address] [place], [facility] [place]: Alex Amador MD MCHC (RBC) [Mass/Vol] 34.8 g/dL Normal 28.4-34.8 [facility] Comment on above: Performed By: #### C LINH LIP, CP #### [address] [place], [place] [id number] [place]: Alex Amador MD MCV (RBC) [Entitic vol] 87.1 fL Normal 82.6-102.9 [facility] Comment on above: Performed By: #### C DP, LIP, CP #### [facility] [address] [place] [address] [place], [place] [address] S[place]er: Alex Amador MD Monocytes (Bld) [#/Vol] 0.78 10*3/uL Normal 0.10-1.20 [facility] Comment on above: Performed By: #### C DP, LIP, CP #### [address] [place], [facility] [place]: Alex Amador MD Monocytes/100 WBC (Bld) 8 % Normal 3-12 [facility] Comment on above: Performed By: #### C DP LIP, CP #### [address] [place], [place] [address] Slimer: Alex Amador MD Neutrophil (Seg) 72 % High 36-65 [facility] Comment on above: Performed By: #### C DP LIP, CP #### [address] [place], [facility] [place]: Alex Amador MD NRBC Automated 0.0 per 100 WBC Normal 0.0 [facility] Comment on above: Performed By: #### C DP LIP, CP #### [address] [place], [place] [address] S[place]er: Alex Amador MD Platelet mean volume (Bld) [Entitic vol] 10.4 fL Normal 8.1-13.5 [facility] Comment on above: Performed By: #### C DP, LIP, CP #### [address] [place], [facility] [place]: Alex Amador MD Platelets (Bld) [#/Vol] 239 10*3/uL Normal 138-453 [facility] Comment on above: Performed By: #### C DP, LIP, CP #### [facility] [address] [place], [place] [id number] [place]: Alex Amador MD RBC (Bld) [#/Vol] 5.12 10*6/uL Normal 4.21-5.77 [facility] Comment on above: Performed By: #### C DP, LIP, CP #### [facility] [address] [place], [place] [id number] [place]: Alex Amador MD WBC (Bld) [#/Vol] 9.6 10*3/uL Normal 3.5-11.3 [facility] Comment on above: Performed By: #### C DP LIP, CP #### [address] [place], [place] [id number] [place]: Alex Amador MD Comp Metabolic Profon 2023 Albumin [Mass/Vol] 4.4 g/dL Normal 3.5-5.2 [facility] Comment on above: Performed By: #### C DP LIP, CP #### [address] [place], [facility] ( [place]: Alex Amador MD Albumin/Glob Ratio 1.2 Normal 1.0-2.5 [facility] Comment on above: Performed By: #### C DP LIP, CP #### [address] [place] [id number] [place]: Alex Amador MD Alkaline Phos 103 U/L Normal 40-129 [facility] Comment on above: Performed By: #### C DP LIP, CP #### [address] [place] [id number] [place]: Alex Amador MD ALT [Catalytic activity/Vol] 30 U/L Normal 5-41 [facility] Comment on above: Performed By: #### C DP, LIP, CP #### [facility] [address] [place], [place] [id number] [place]: Alex Amador MD Anion gap [Moles/Vol] 10 mmol/L Normal 9-17 [facility] Comment on above: Performed By: #### C DP, LIP, CP #### [facility] [address] [place], [place] [id number] [place]: Alex Amador MD AST [Catalytic activity/Vol] 21 U/L Normal <40 [facility] Comment on above: Performed By: #### C DP, LIP, CP #### [facility] [address] [place], [place] [id number] [place]: Alex Amador MD Bilirubin [Mass/Vol] 0.7 mg/dL Normal 0.3-1.2 [facility] Comment on above: Performed By: #### C DP, LIP, CP #### [facility] [address] [place], [place] [id number] [place]: Alex Amador MD BUN/CRE Ratio 13 Normal 9-20 [facility] Comment on above: Performed By: #### C DP, LIP, CP #### [facility] [address] [place], [place] [id number] [place]: Alex Amador MD Calcium [Mass/Vol] 9.1 mg/dL Normal 8.6-10.4 [facility] Comment on above: Performed By: #### C DP, LIP, CP #### [facility] [address] [place], [place] [id number] [place]: Alex Amador MD Chloride [Moles/Vol] 102 mmol/L Normal 98-107 [facility] Comment on above: Performed By: #### C DP, LIP, CP #### [facility] [address] [place], [place] [id number] Slimer: Alex Amador MD CO2 [Moles/Vol] 27 mmol/L Normal 20-31 [facility] Comment on above: Performed By: #### C RAMÓN MELTON, CP #### [facility] [address] [place] [address] Slimer: Alex Amador MD Creatinine [Mass/Vol] 0.8 mg/dL Normal 0.7-1.2 [facility] Comment on above: Performed By: #### C RAMÓN MELTON, CP #### [facility] [address] [place] [address] Slimer: Alex Amador MD GFR/1.73 sq M.predicted among non-blacks MDRD (S/P/Bld) [Vol rate/Area] mL/min/{1.73_m2} Normal >60 [facility] Comment on above: Result Comment: These [...] By: #### C RAMÓN MELTON, CP #### [address] [place] [address] Slimer: Alex Amador MD Glucose [Mass/Vol] 97 mg/dL Normal 70-99 [facility] Comment on above: Performed By: #### C LINH LIP, CP #### [facility] [address] [place] [address] Slimer: Alex Amador MD Potassium [Moles/Vol] 4.2 mmol/L Normal 3.7-5.3 [facility] Comment on above: Performed By: #### C LINH LIP, CP #### [address] [place] [address] Slimer: Alex Amador MD Protein [Mass/Vol] 8.0 g/dL Normal 6.4-8.3 [facility] Comment on above: Performed By: #### C DP LIP, CP #### [facility] [address] [place] [address] Slimer: Alex Amador MD Sodium [Moles/Vol] 139 mmol/L Normal 135-144 [facility] Comment on above: Performed By: #### C DP LIP, CP #### [facility] [address] [place] [address] Slimer: Alex Amador MD Urea nitrogen [Mass/Vol] 10 mg/dL Normal 6-20 [facility] Comment on above: Performed By: #### C DPRAMÓN, CP #### [facility] [address] [place], [place] [id number] Slimer: Alex Amador MD Lipaseon 07-04-2023 Lipase [Catalytic activity/Vol] 29 U/L Normal 13-60 [facility] Comment on above: Performed By: #### C RAMÓN MELTON, CP #### [facility] [address] [place] [address] Slimer: Alex Amador MD 36on 11-21-2022 36 Patient's [...] cost is very similar. Help! Thanks. Normal [facility] CBCon 11-17-2022 Erythrocyte distribution width (RBC) [Ratio] 12.9 % Normal 11.5-15.0 [facility] Comment on above: Performed By: #### L [id number] ####[facility] ([facility])[address] [place] [address] ERYTHROCYTE MEAN CORPUSCULAR HEMOGLOBIN CONCENTRATION (G/DL) BY AUTOMATED 34.2 g/dL Normal 32.0-35.0 [facility] Comment on above: Performed By: #### L [id number] ####[facility] ([place])[address] [place] [id number] Hematocrit (Bld) [Volume fraction] 43.6 % Normal 39.0-55.0 [facility] Comment on above: Performed By: #### L [id number] ####[facility] ([place])[address] [place] [address] Hemoglobin (Bld) [Mass/Vol] 14.9 g/dL Normal 13.0-17.0 [facility] Comment on above: Performed By: #### L [id number] ####[facility] ([place])[address] [place] [address] MCH (RBC) [Entitic mass] 30.2 pg Normal 27.0-33.0 [facility] Comment on above: Performed By: #### L [id number] ####[facility] ([place])[address] [place] [address] MCV (RBC) [Entitic vol] 88.4 fL Normal 82.0-98.0 [facility] Comment on above: Performed By: #### L [id number] ####[facility] ([place])[address] [place] [address] PLATELETS (10*3/UL) IN BLOOD AUTOMATED COUNT 237 10*3/uL Normal 150-400 [facility] Comment on above: Performed By: #### L [id number] ####[facility] ([place])[address] [place] [address] RBC (Bld) [#/Vol] 4.93 10*6/uL Normal 4.20-5.70 [facility] Comment on above: Performed By: #### L [id number] ####[facility] ([facility])[address] [place] [address] WBC (Bld) [#/Vol] 10.15 10*3/uL Normal 4.00-10.60 [facility] Comment on above: Performed By: #### L [id number] ####[facility] ([facility])[address] [place] [address] HPon 11-17-2022 HP H&P reviewed. The patient [...] consent was signed prior to the procedure. [facility] HP H&P reviewed. The patient was examined and there are no changes to the H&P. Rafat Garcia MD, MPH, [facility], [facility], [facility] Interventional Cardiology Pager Email: [email or web address] NURSNOTEon 11-17-2022 NURSNOTE RN educated pt on d/c instructions. RN encouraged pt to voice any questions or concerns. Pt verbalizes no questions or concerns at this time. Pt was wheeled off of unit with all of belongings. [facility] Orders Onlyon 11-09-2022 Orders Only [id number] Henrik Cavanaugh 1980 M Date Provider Department Center 11/09/2022 [facility] [place] [facility] Family History Problem Relation Age of Onset Coronary artery disease Mother's Brother Peripheral vascular disease Mother's Brother Family Status - Relation Status Age at Mother's Brother [facility] HPon 10-31-2022 [facility] Cardiology Clinic Note Chief Complaint: Patient here for follow up [facility] for chest pain. He was seen [...] no acute distress. HEAD: atraumatic, normocephalic. EYES: CRISTIEN, EOMI. NECK: trachea midline, no JVD present, [...] the above Rafat Garcia MD, MPH, FACC, [facility], [facility] Interventional Cardiology Pager Email: [email or web address] Normal [facility] Office Visiton 10-31-2022 Follow-up visit [id number] Henrik Cavanaugh 1980 [facility] Provider Department Center 10/31/2022 Davie-RAFAT GARCIA Family History Problem Relation Age of Onset Coronary artery disease Mother's Brother Peripheral vascular disease Mother's Brother Family Status - Relation Status Age at Mother's Brother Level of Service:99756 SD OFFICE/OUTPATIENT ESTABLISHED HIGH MDM 40-54 MIN Normal [facility] Orders Onlyon 10-31-2022 Orders Only [id number] Henrik Cavanaugh 1980 [facility] Provider Department Center 10/31/2022 TAE BENÍTEZ Family History Problem Relation Age of Onset Coronary artery disease Mother's Brother Peripheral vascular disease Mother's Brother Family Status - Relation Status Age at Mother's Brother Normal [facility] Activated partial thrombopla stin time (aPTT) in platelet poor plasma by coagulation aOrdered By: Socorro Osullivan on 10-11-2022 aPTT Coag (PPP) [Time] 27.7 s 25.1-36.5 [facility] Basophils Auto (Bld) [#/Vol] Ordered By: Socorro Osullivan on 10-11-2022 Basophils (Bld) [#/Vol] 0.1 10*3/uL 0.0-0.2 [facility] Basophils/100 WBC Auto (Bld) Ordered By: Socorro Osullivan on 10-11-2022 Basophils/100 WBC (Bld) 0.9 % . [facility] Calcium [Mass/volume] in Ser um or PlasmaOrdered By: Socorro Osullivan on 10-11-2022 Calcium [Mass/Vol] 9.5 mg/dL 8.6-10.3 [facility] Carbon dioxide, total [Moles /volume] in Serum or PlasmaOrdered By: Socorro Osullivan on 10-11-2022 CO2 [Moles/Vol] 29.1 mmol/L 21.0-31.0 [facility] Chloride [Moles/volume] in S josselin or PlasmaOrdered By: Socorro Osullivan on 10-11-2022 Chloride [Moles/Vol] 102 mmol/L 98-107 [facility] Creatine kinase [Enzymatic a ctivity/volume] in Serum or PlasmaOrdered By: Socorro Osullivan on 10-11-2022 CK [Catalytic activity/Vol] 87 U/L 30-223 [facility] Creatinine [Mass/volume] in Serum or PlasmaOrdered By: Socorro Osullivan on 10-11-2022 Creatinine [Mass/Vol] 0.79 mg/dL 0.70-1.30 [facility] Eosinophils Auto (Bld) [#/Vo l]Ordered By: Socorro Osullivan on 10-11-2022 Eosinophils (Bld) [#/Vol] 0.2 10*3/uL 0.0-0.45 [facility] Eosinophils/100 WBC Auto (Bl d)Ordered By: Socorro Osullivan on 10-11-2022 Eosinophils/100 WBC (Bld) 2.5 % . [facility] Erythrocyte distribution wid th Auto (RBC) [Ratio]Ordered By: Socorro Osullivan on 10-11-2022 Erythrocyte distribution width (RBC) [Ratio] 13.3 % 12.0-14.8 [facility] Glucose [Mass/volume] in Ser um or PlasmaOrdered By: Socorro Osullivan on 10-11-2022 Glucose [Mass/Vol] 90 mg/dL 70-100 [facility] Comment on above: ADA recommended refe rence rangeRandom Glucose Reference Range is dependent on time and content of last meal. Glucose of more than 200 mg/dL in a nonstressed, ambulatory subject supports the diagnosis of Diabetes Mellitus. Hematocrit Auto (Bld) [Volum e fraction]Ordered By: Socorro Osullivan on 10-11-2022 Hematocrit (Bld) [Volume fraction] 40.4 % 38.8-50.0 [facility] Hemoglobin [Mass/volume] in BloodOrdered By: Socorro Osullivan on 10-11-2022 Hemoglobin (Bld) [Mass/Vol] 14.2 g/dL 13.0-17.0 [facility] Laboratory - CoagulationOrde red By: Socorro Osullivan on 10-11-2022 PT Coag (PPP) [Time] 12.0 s 9.0-12.9 [facility] Leukocytes [#/volume] correc giselle for nucleated erythrocytes in Blood by Automated counOrdered By: Socorro Osullivan on 10-11-2022 WBC corrected for nucl RBC Auto (Bld) [#/Vol] 9.5 10*3/uL 4.1-10.5 [facility] Lymphocytes Auto (Bld) [#/Vo l]Ordered By: Socorro Osullivan on 10-11-2022 Lymphocytes (Bld) [#/Vol] 1.8 10*3/uL 1.00-4.8 [facility] Lymphocytes/100 WBC Auto (Bl d)Ordered By: Socorro Osullivan on 10-11-2022 Lymphocytes/100 WBC (Bld) 18.6 % . [facility] MCH Auto (RBC) [Entitic mass ]Ordered By: Socorro Osullivan on 10-11-2022 MCH (RBC) [Entitic mass] 30.4 pg 27.5-35.2 [facility] MCHC Auto (RBC) [Mass/Vol]Or dered By: Socorro Osullivan on 10-11-2022 MCHC (RBC) [Mass/Vol] 35.1 g/dL 32.5-35.6 [facility] MCV Auto (RBC) [Entitic vol] Ordered By: Socorro Osullivan on 10-11-2022 MCV (RBC) [Entitic vol] 86.6 fL 83.5-101 [facility] Monocyte distribution width [Entitic volume] in Blood by AutomatedOrdered By: Socorro Osullivan on 10-11-2022 Monocyte distribution width Auto (Bld) [Entitic vol] 18.08 % 0.00-20.00 [facility] Monocytes Auto (Bld) [#/Vol] Ordered By: Socorro Osullivan on 10-11-2022 Monocytes (Bld) [#/Vol] 0.7 10*3/uL 0.0-0.8 [facility] Monocytes/100 WBC Auto (Bld) Ordered By: Socorro Osullivan on 10-11-2022 Monocytes/100 WBC (Bld) 7.2 % . [facility] Natriuretic peptide B [Mass/ Vol]Ordered By: Socorro Osullivan on 10-11-2022 Natriuretic peptide B (Bld) [Mass/Vol] 21.0 pg/mL 5-100 [facility] Neutrophils Auto (Bld) [#/Vo l]Ordered By: Socorro Osullivan on 10-11-2022 Neutrophils (Bld) [#/Vol] 6.7 10*3/uL 1.8-7.7 [facility] Neutrophils/100 WBC Auto (Bl d)Ordered By: Socorro Osullivan on 10-11-2022 Neutrophils/100 WBC (Bld) 70.8 % . [facility] No Panel InformationOrdered By: Socorro Osullivan on 10-11-2022 Estimated GFR (CKD-EPI) > 60.0 mL/Min [facility] Creatinine Clearance (Chem 158.41 [facility] Nucleated erythrocytes [Pres ence] in Blood by Automated countOrdered By: Socorro Osullivan on 10-11-2022 Nucleated RBC Auto Ql (Bld) 0.2 /100{WBC} 0-0.5 [facility] Platelet mean volume Auto (B ld) [Entitic vol]Ordered By: Socorro Osullivan on 10-11-2022 Platelet mean volume (Bld) [Entitic vol] 8.0 fL 6.6-10.1 [facility] Platelet poor plasma interna tional normalized ratio (INR) by coagulation assay (relatOrdered By: Socorro Osullivan on 10-11-2022 INR Coag (PPP) [Relative time] 1.0 {INR} [facility] Comment on above: INR Therapeutic [...] 10-11-2022 Platelets (Bld) [#/Vol] 218 10*3/uL 150-450 [facility] Potassium [Moles/volume] in Serum or PlasmaOrdered By: Socorro Osullivan on 10-11-2022 Potassium [Moles/Vol] 3.8 mmol/L 3.5-5.1 [facility] RBC Auto (Bld) [#/Vol]Ordere d By: Socorro Osullivan on 10-11-2022 RBC (Bld) [#/Vol] 4.67 10*6/uL 3.90-5.60 [facility] Serum or plasma anion gap de terminationOrdered By: Socorro Osullivan on 10-11-2022 Anion gap [Moles/Vol] 10.7 mmol/L 6.0-15.0 [facility] Sodium [Moles/volume] in Ser um or PlasmaOrdered By: Socorro Osullivan on 10-11-2022 Sodium [Moles/Vol] 138 mmol/L 136-145 [facility] Troponin I.cardiac [Mass/vol ume] in Serum or Plasma by Detection limit <= 0.01 ng/Ordered By: Socorro Osullivan on 10-11-2022 Troponin I.cardiac DL <= 0.01 ng/mL [Mass/Vol] 6.3 pg/mL 0.0-20.0 [facility] Urea nitrogen [Mass/volume] in Serum or PlasmaOrdered By: Socorro Osullivan on 10-11-2022 Urea nitrogen [Mass/Vol] 11 mg/dL 7-25 [facility] WBC Auto (Bld) [#/Vol]Ordere d By: Socorro Osullivan on 10-11-2022 WBC (Bld) [#/Vol] 9.5 10*3/uL 4.1-10.5 [facility] BNPon 05-16-2022 Natriuretic peptide B (Bld) [Mass/Vol] 51.0 pg/mL Normal <=450.0 [facility] Comment on above: Performed By: #### B MACHINE FORMER, ESME, BMP #### [facility] [address] [address] [address] Divina Patino CARDIAC DAT 3-6on 3 CK [Catalytic activity/Vol] 43 U/L Normal 39-308 [facility] Comment on above: Performed By: #### L ACT #### [facility] [address] [place] [address] Dr. Divina Patino HSTROP 10.6 pg/mL Normal 4.0-76.1 [facility] Comment on above: Result Comment: CUT- OFF POINTS HAVE BEEN ESTABLISHED BASED ON THE FOURTH UNIVERSAL DEFINITIONS OF MYOCARDIAL INFARCTION. THE UPPER REFERENCE LIMIT (URL) OF TROPONIN, DEFINED THE 99TH PERCENTILE OF cTnI DISTRIBUTION IN A REFERENCE POPULATION, HAS BEEN CONFIRMED THE DECISION THRESHOLD FOR [place] DIAGNOSIS. Performed By: #### L ACT #### [facility] [address] [place] [address] Dr. Divina Patino CARDIAC DAT ADMITon 023 CK [Catalytic activity/Vol] 44 U/L Normal 39-308 [facility] Comment on above: Performed By: #### B MACHINE FORMER, MAGDADM, BMP #### [facility] [address] [place] [address] Dr. Divina Patino CK.MB [Mass/Vol] ng/mL Normal <=3.60 [facility] Comment on above: Performed By: #### B MACHINE FORMER, CMADM, BMP #### [facility] [address] [place] [address] Dr. Divina Patino HSTROP 9.9 pg/mL Normal 4.0-76.1 [facility] Comment on above: Result Comment: CUT- OFF POINTS HAVE BEEN ESTABLISHED BASED ON THE FOURTH UNIVERSAL DEFINITIONS OF MYOCARDIAL INFARCTION. THE UPPER REFERENCE LIMIT (URL) OF TROPONIN, DEFINED THE 99TH PERCENTILE OF cTnI DISTRIBUTION IN A REFERENCE POPULATION, HAS BEEN CONFIRMED THE DECISION THRESHOLD FOR [place] DIAGNOSIS. Performed By: #### B ESME ORTGEA, BMP #### [facility] [address] [place] [address] Dr. Divina Patino CIELO 21 ng/mL Normal 16-96 [facility] Comment on above: Performed By: #### B MACHINE FORMERESME, BMP #### [facility] [address] [place] [address] Dr. Divina Patino CBC AUTO DIFFon 05-16-2022 BASO # 0.1 103/ul Normal 0.0-0.1 [facility] Comment on above: Performed By: #### C BC #### [facility] [address] [place] [address] Dr. Divina Patino Basophils/100 WBC (Bld) 0.6 % Normal 0.2-2.0 [facility] Comment on above: Performed By: #### C BC #### [facility] [address] [place] [address] Dr. Divina Patino EO # 0.3 103/ul Normal 0.0-0.7 [facility] Comment on above: Performed By: #### C BC #### [facility] [address] [place] [address] Dr. Divina Patino Eosinophils/100 WBC (Bld) 2.3 % Normal 0.9-7.0 [facility] Comment on above: Performed By: #### C BC #### [facility] [address] [place] [address] Dr. Divina Patino Erythrocyte distribution width (RBC) [Ratio] 12.3 % Normal 11.0-15.0 [facility] Comment on above: Performed By: #### C BC #### [facility] [address] [place] [address] Dr. Divina Patino Hematocrit (Bld) [Volume fraction] 41.6 % Critically low 42.0-54.0 [facility] Comment on above: Performed By: #### C BC #### [facility] [address] [place] [address] Dr. Divina Patino Hemoglobin (Bld) [Mass/Vol] 14.6 g/dL Normal 14.0-18.0 [facility] Comment on above: Performed By: #### C BC #### [facility] [address] [place] [address] Dr. Divina Patino IG # 0.12 10e3/ul Critically high 0.00-0.03 [facility] Comment on above: Performed By: #### C BC #### [facility] [address] [place] [address] Dr. Divina Pation IG % 1.0 % Critically high 0.0-0.5 [facility] Comment on above: Performed By: #### C BC #### [facility] [address] [place] [address] Dr. Divina Patino LYMPH # 2.7 103/ul Normal 1.2-3.8 [facility] Comment on above: Performed By: #### C BC #### [facility] [address] [place] [address] Dr. Divina Patino Lymphocytes/100 WBC (Bld) 23.0 % Normal 20.5-60.0 [facility] Comment on above: Performed By: #### C BC #### [facility] [address] [place] [address] Dr. Divina Patino MANUAL DIFF REQ NO Normal [facility] Comment on above: Performed By: #### C BC #### [facility] [address] [place] [address] Dr. Divina Patino MCH (RBC) [Entitic mass] 30.0 pg Normal 25.9-34.0 [facility] Comment on above: Performed By: #### C BC #### [facility] [address] [place] [address] Dr. Divina Patino MCHC (RBC) [Mass/Vol] 35.1 g/dL Normal 29.9-35.2 [facility] Comment on above: Performed By: #### C BC #### [facility] [address] [place] [address] Dr. Divina Patino MCV (RBC) [Entitic vol] 85.6 fL Normal 80.0-94.0 [facility] Comment on above: Performed By: #### C BC #### [facility] [address] [place] [address] Dr. Divina Patino MONO # 1.0 103/ul Critically high 0.3-0.8 [facility] Comment on above: Performed By: #### C BC #### [facility] [address] [address] [address] Divina Patino Monocytes/100 WBC (Bld) 8.6 % Normal 1.7-12.0 [facility] Comment on above: Performed By: #### C BC #### [facility] [address] [place] [address] Dr. Divina Patino NEUT # 7.4 103/ul Critically high 1.4-6.5 [facility] Comment on above: Performed By: #### C BC #### [facility] [address] [place] [address] Dr. Divina Patino Neutrophils/100 WBC (Bld) 64.5 % Normal 43.0-75.0 [facility] Comment on above: Performed By: #### C BC #### [facility] [address] [place] [address] Dr. Divina Patino Platelet mean volume (Bld) [Entitic vol] 9.9 fL Normal 9.5-13.5 [facility] Comment on above: Performed By: #### C BC #### [facility] [address] [place] [address] Dr. Divina Patino PLT 231 103/ul Normal 150-450 [facility] Comment on above: Performed By: #### C BC #### [facility] [address] [place], [place] [id number] Dr. Divina Patino RBC 4.86 106/ul Normal 4.70-6.10 [facility] Comment on above: Performed By: #### C BC #### [facility] [address] [place] [address] Dr. Divina Patino WBC 11.5 103/ul Critically high 4.0-11.0 [facility] Comment on above: Performed By: #### C BC #### [facility] [address] [place] [address] Dr. Divina Patino D-DIMERon 05-16-2022 D-DIMER 0.19 mg/L FEU Normal <=0.59 [facility] Comment on above: Performed By: #### D DIM #### [facility] [address] [place] [address] Dr. Divina Patino D-DIMER COMMENTS SEE BELOW Normal [facility] Comment on above: Result Comment: Incr [...] hospitalization. Performed By: #### D DIM #### [facility] [address] [place] [address] Dr. Divina Patino LACTATE/LACTIC ACIDon 2022 Lactate [Moles/Vol] 1.5 mmol/L Normal 0.4-1.[address] [facility] Comment on above: Performed By: #### L ACT #### [facility] [address] [place] [address] Dr. Divina Patino PROF CHEM 8 (BAS METB)on Anion gap [Moles/Vol] 13.7 mmol/L Normal [facility] Comment on above: Performed By: #### B MACHINE FORMER, CMADM, BMP #### [facility] [address] [address] [address] Divina Patino Calcium [Mass/Vol] 8.7 mg/dL Normal 8.5-10.1 [facility] Comment on above: Performed By: #### B MACHINE FORMER, CMADM, BMP #### [facility] [address] [place] [address] Dr. Divina Patino Chloride [Moles/Vol] 102 mmol/L Normal 98-107 [facility] Comment on above: Performed By: #### B MACHINE FORMER, CMADM, BMP #### [facility] [address] [address] [address] Divina Patino CO2 [Moles/Vol] 27.1 mmol/L Normal 21.0-32.0 [facility] Comment on above: Performed By: #### B MACHINE FORMER, CMADM, BMP #### [facility] [address] [address] [address] Divina Patino Creatinine [Mass/Vol] 0.85 mg/dL Normal 0.70-1.30 [facility] Comment on above: Performed By: #### B MACHINE FORMER, CMADM, BMP #### [facility] [address] [place] [address] Dr. Divina Patino EGFR-AF TURKISH >60 Normal >=60 [facility] Comment on above: Performed By: #### B MACHINE FORMER, CMADM, BMP #### [facility] [address] [place] [address] Dr. Divina Patino EGFR-NON AF TURKISH >60 Normal >=60 [facility] Comment on above: Performed By: #### B MACHINE FORMER, CMADM, BMP #### [facility] [address] [place] [address] Dr. Divina Patino Glucose [Mass/Vol] 114 mg/dL Critically high 74-106 [facility] Comment on above: Performed By: #### B MACHINE FORMER, CMADM, BMP #### [facility] [address] [address] [address] Divina Patino Potassium [Moles/Vol] 3.8 mmol/L Normal 3.5-5.1 [facility] Comment on above: Performed By: #### B MACHINE FORMER, CMADM, BMP #### [facility] [address] [place] [address] Dr. Divina Patino Sodium [Moles/Vol] 139 mmol/L Normal 136-145 [facility] Comment on above: Performed By: #### B MACHINE FORMER, CMADM, BMP #### [facility] [address] [place] [address] Dr. Divina Patino Urea nitrogen [Mass/Vol] 15.0 mg/dL Normal 7.0-18.0 [facility] Comment on above: Performed By: #### B ESME ORTEGA BMP #### [facility] [address] [address] [address] Divina Patino Urea nitrogen/Creatinine [Mass ratio] 17.6 mg/mg Normal [facility] Comment on above: Performed By: #### B ESME ORTEGA BMP #### [facility] [address] [address] [address] Divina Patino XR CHEST 1 Von [...] AMAN PURCELL Date: 2022-05-15 23:20 Normal [facility] CARDIAC DAT ADMITon 023 CK [Catalytic activity/Vol] 78 U/L Normal 39-308 [facility] Comment on above: Performed By: #### L ACT #### [facility] [address] [place] [address] Dr. Divina Patino CK.MB [Mass/Vol] 1.08 ng/mL Normal <=3.60 [facility] Comment on above: Performed By: #### L ACT #### [facility] [address] [place] [address] Dr. Divina Patino HSTROP 12.2 pg/mL Normal 4.0-76.1 [facility] Comment on above: Result Comment: CUT- OFF POINTS HAVE BEEN ESTABLISHED BASED ON THE FOURTH UNIVERSAL DEFINITIONS OF MYOCARDIAL INFARCTION. THE UPPER REFERENCE LIMIT (URL) OF TROPONIN, DEFINED THE 99TH PERCENTILE OF cTnI DISTRIBUTION IN A REFERENCE POPULATION, HAS BEEN CONFIRMED THE DECISION THRESHOLD FOR [place] DIAGNOSIS. Performed By: #### L ACT #### [facility] [address] [address] [address] Divina Patino CIELO 24 ng/mL Normal 16-96 [facility] Comment on above: Performed By: #### L ACT #### [facility] [address] [place] [address] Dr. Divina Patino CBC AUTO DIFFon 05-11-2022 BASO # 0.1 103/ul Normal 0.0-0.1 [facility] Comment on above: Performed By: #### L ACT #### [facility] [address] [place] [address] Dr. Divina Patino Basophils/100 WBC (Bld) 0.6 % Normal 0.2-2.0 [facility] Comment on above: Performed By: #### L ACT #### [facility] [address] [place] [address] Dr. Divina Patino EO # 0.2 103/ul Normal 0.0-0.7 [facility] Comment on above: Performed By: #### L ACT #### [facility] [address] [place] [address] Dr. Divina Patino Eosinophils/100 WBC (Bld) 2.0 % Normal 0.9-7.0 [facility] Comment on above: Performed By: #### L ACT #### [facility] [address] [place] [address] Dr. Divina Patino Erythrocyte distribution width (RBC) [Ratio] 12.4 % Normal 11.0-15.0 [facility] Comment on above: Performed By: #### L ACT #### [facility] [address] [place] [address] Dr. Divina Patino Hematocrit (Bld) [Volume fraction] 43.8 % Normal 42.0-54.0 [facility] Comment on above: Performed By: #### L ACT #### [facility] [address] [place] [address] Dr. Divina Patino Hemoglobin (Bld) [Mass/Vol] 15.3 g/dL Normal 14.0-18.0 [facility] Comment on above: Performed By: #### L ACT #### [facility] [address] [place], [place] [id number] Dr. Divina Patino IG # 0.06 10e3/ul Critically high 0.00-0.03 [facility] Comment on above: Performed By: #### L ACT #### [facility] [address] [place] [address] Dr. Divina Patino IG % 0.6 % Critically high 0.0-0.5 [facility] Comment on above: Performed By: #### L ACT #### [facility] [address] [place] [address] Dr. Divina Patino LYMPH # 2.0 103/ul Normal 1.2-3.8 [facility] Comment on above: Performed By: #### L ACT #### [facility] [address] [place] [address] Dr. Divina Patino Lymphocytes/100 WBC (Bld) 19.9 % Critically low 20.5-60.0 [facility] Comment on above: Performed By: #### L ACT #### [facility] [address] [place] [address] Dr. Divina Patino MANUAL DIFF REQ NO Normal [facility] Comment on above: Performed By: #### L ACT #### [facility] [address] [place] [address] Dr. Divina Patino MCH (RBC) [Entitic mass] 30.2 pg Normal 25.9-34.0 [facility] Comment on above: Performed By: #### L ACT #### [facility] [address] [place] [address] Dr. Divina Patino MCHC (RBC) [Mass/Vol] 34.9 g/dL Normal 29.9-35.2 [facility] Comment on above: Performed By: #### L ACT #### [facility] [address] [place] [address] Dr. Divina Patino MCV (RBC) [Entitic vol] 86.6 fL Normal 80.0-94.0 [facility] Comment on above: Performed By: #### L ACT #### [facility] [address] [place] [address] Dr. Divina Patino MONO # 0.8 103/ul Normal 0.3-0.8 [facility] Comment on above: Performed By: #### L ACT #### [facility] [address] [place] [address] Dr. Divina Patino Monocytes/100 WBC (Bld) 7.7 % Normal 1.7-12.0 [facility] Comment on above: Performed By: #### L ACT #### [facility] [address] [place] [address] Dr. Divina Patino NEUT # 7.1 103/ul Critically high 1.4-6.5 [facility] Comment on above: Performed By: #### L ACT #### [facility] [address] [place] [address] Dr. Divina Patino Neutrophils/100 WBC (Bld) 69.2 % Normal 43.0-75.0 [facility] Comment on above: Performed By: #### L ACT #### [facility] [address] [place] [address] Dr. Divina Patino Platelet mean volume (Bld) [Entitic vol] 10.3 fL Normal 9.5-13.5 [facility] Comment on above: Performed By: #### L ACT #### [facility] [address] [place] [address] Dr. Divina Patino PLT 238 103/ul Normal 150-450 [facility] Comment on above: Performed By: #### L ACT #### [facility] [address] [place] [address] Dr. Divina Patino RBC 5.06 106/ul Normal 4.70-6.10 [facility] Comment on above: Performed By: #### L ACT #### [facility] [address] [place] [address] Dr. Divina Patino WBC 10.3 103/ul Normal 4.0-11.0 [facility] Comment on above: Performed By: #### L ACT #### [facility] [address] [place] [address] Dr. Divina Patino CRPon 05-11-2022 CRP [Mass/Vol] mg/L Normal <=1.0 [facility] Comment on above: Performed By: #### L ACT #### [facility] [address] [address] [address] HEAD WO CONon [...] JAMES JOHNSTON Date: 2022-05-11 19:47 Normal [facility] Covid-19 PCR (CVDTB)on SARS-CoV-2 (COVID-19) RNA JERRICA+probe Ql (Unsp spec) Not detected Normal NOT DETECTED The [facility] Comment on above: Result Comment: When diagnostic [...] for this test is supported by the [place] of Health and Human Service's declaration that [...] used). Performed By: #### C VDTBH #### [facility] [address] [address] [address] Divina Patino INFLUENZA A AND B AGon 05-11 INFLUANEGH SEE BELOW Normal [facility] Comment on above: Result Comment: Nega tive for Flu A protein angiten. Infection due to Flu A cannot be ruled out. Flu A angiten in the sample may be below the detection limit of the test. Performed By: #### I NFLUAB #### [facility] [address] [place] [address] Dr. Divina Patino INFLUBNEG SEE BELOW Normal [facility] Comment on above: Result Comment: Nega tive for Flu B protein antigen. Infection due to Flu B cannot be ruled out. Flu B antigen in the sample may be below the detection limit of the test. Performed By: #### I NFLUAB #### [facility] [address] [place] [address] Dr. Divina Patino INFLUENZA A AG Negative Normal NEGATIVE SEE COMMENT [facility] Comment on above: Performed By: #### I NFLUAB #### [facility] [address] [place] [address] Dr. Divina Patino INFLUENZA B AG Negative Normal NEGATIVE SEE COMMENT [facility] Comment on above: Performed By: #### I NFLUAB #### [facility] [address] [place] [address] Dr. Divina Patino LACTATE/LACTIC ACIDon 2022 Lactate [Moles/Vol] 1.8 mmol/L Normal 0.4-1.[address] [facility] Comment on above: Performed By: #### L ACT #### [facility] [address] [place] [address] Dr. Divina Patino MONOon 05-11-2022 Monocytes (Bld) [#/Vol] Negative Normal NEGATIVE [facility] Comment on above: Performed By: #### M LEANDRO #### [facility] [address] [place] [address] Dr. Divina Patino PROF CHEM 8 (BAS METB)on Anion gap [Moles/Vol] 12.8 mmol/L Normal [facility] Comment on above: Performed By: #### L ACT #### [facility] [address] [place] [address] Dr. Divina Patino Calcium [Mass/Vol] 9.1 mg/dL Normal 8.5-10.1 [facility] Comment on above: Performed By: #### L ACT #### [facility] [address] [address] [address] Divina Patino Chloride [Moles/Vol] 101 mmol/L Normal 98-107 [facility] Comment on above: Performed By: #### L ACT #### [facility] [address] [address] [address] Divina Patino CO2 [Moles/Vol] 26.9 mmol/L Normal 21.0-32.0 [facility] Comment on above: Performed By: #### L ACT #### [facility] [address] [place] [address] Dr. Divina Patino Creatinine [Mass/Vol] 0.90 mg/dL Normal 0.70-1.30 [facility] Comment on above: Performed By: #### L ACT #### [facility] [address] [place] [address] Dr. Divina Patino EGFR-AF TURKISH >60 Normal >=60 [facility] Comment on above: Performed By: #### L ACT #### [facility] [address] [place] [address] Dr. Divina Patino EGFR-NON AF TURKISH >60 Normal >=60 [facility] Comment on above: Performed By: #### L ACT #### [facility] [address] [place] [address] Dr. Divina Patino Glucose [Mass/Vol] 110 mg/dL Critically high 74-106 [facility] Comment on above: Performed By: #### L ACT #### [facility] [address] [address] [address] Divina Patino Potassium [Moles/Vol] 3.7 mmol/L Normal 3.5-5.1 [facility] Comment on above: Performed By: #### L ACT #### [facility] [address] [place] [address] Dr. Divina Patino Sodium [Moles/Vol] 137 mmol/L Normal 136-145 [facility] Comment on above: Performed By: #### L ACT #### [facility] [address] [address] [address] Divina Patino Urea nitrogen [Mass/Vol] 11.0 mg/dL Normal 7.0-18.0 [facility] Comment on above: Performed By: #### L ACT #### [facility] [address] [address] [address] Divina Patino Urea nitrogen/Creatinine [Mass ratio] 12.2 mg/mg Normal [facility] Comment on above: Performed By: #### L ACT #### [facility] [address] [address] [address] Divina Patino SED RATE [facility] 2022 SED RATE 16 mm/hr Critically high <=15 [facility] Comment on above: Performed By: #### L ACT #### [facility] [address] [address] [address] Divina Patnio TSHon 05-11-2022 TSH 3.949 uIU/mL Critically high 0.358-3.740 [facility] Comment on above: Performed By: #### L ACT #### [facility] [address] [place] [address] Dr. Divina Patino COVID-19 SOFIAOrdered By: Andres Elizondo on 12-02-2021 SARS-CoV+SARS-CoV-2 (COVID-19) Ag IA.rapid Ql (Resp) Negative Negative [facility] Comment on above: This is a duplicate Judith SARS Antigen (ANURAG) result to be used for statistical tracking purpose only. No Panel InformationOrdered By: Elian Elizondo on 12-02-2021 SARS Antigen (LFIA) [facility] CBC with Auto Differentialon 06-08-2021 Absolute Eos # 0.11 [facility] Heal th Absolute Immature Granulocyte 0.06 [employer] Absolute Lymph # 1.65 [facility] alth Absolute [place] # 1.03 [facility] Basophils (Bld) [#/Vol] 0.07 10*3/uL [facility] Basophils/100 WBC (Bld) 1 % 0 - 2 % [facility] Eosinophils/100 WBC (Bld) 1 % 1 - 4 % [facility] Hematocrit (Bld) [Volume fraction] 47.5 % 40.7 - 50.3 % [facility] Hemoglobin.gastroint estinal spec 1 Ql (Stl) 16.3 g/dL 13.0 - 17.0 g/dL [facility] Immature granulocytes/100 WBC (Bld) 1 % High 0 [facility] Interpretation and review of laboratory results Abnormal [facility] Lymphocytes/100 WBC (Bld) 14 % Low 24 - 43 % [facility] MCH (RBC) [Entitic mass] 30.5 pg 25.2 - 33.5 pg [facility] MCHC (RBC) [Mass/Vol] 34.3 g/dL 28.4 - 34.8 g/dL [facility] MCV (RBC) [Entitic vol] 89.0 fL 82.6 - 102.9 fL [facility] Monocytes/100 WBC (Bld) 9 % 3 - 12 % [facility] NRBC Automated 0.0 0.0 per 100 WBC [facility] Platelet distribution width (Bld) [Ratio] 12.5 % 11.8 - 14.4 % [facility] Platelet mean volume (Bld) [Entitic vol] 10.8 fL 8.1 - 13.5 fL [facility] Platelets (Bld) [#/Vol] 231 10*3/uL [facility] RBC (Bld) [#/Vol] 5.34 10*6/uL 4.21 - 5.77 m/uL [facility] Segmented neutrophils/100 WBC (Bld) 74 % High 36 - 65 % [facility] Segs Absolute 9.05 High [facility] Healt h WBC (Bld) [#/Vol] 12.0 10*3/uL High [facility] CT ABDOMEN PELVIS W IV CONTR AST [...] aneurysm. Bones/Soft Tissues: Mild multilevel thoracolumbar spondylosis. [facility] RIS CONSOLIDATED Ok Rodgers MD [...] stones in the left kidney. Normal appendix. [employer] Work Phone: Radiology Study observation (narrative) [employer] Phone: CT ABDOMEN PELVIS W IV CONTR AST Additional Contrast? NoneOrdered By: Ok Rodgers on 06-08-2021 [employer] Phone: Comprehensive Metabolic Pane karan 06-08-2021 Albumin [Mass/Vol] 4.6 g/dL 3.5 - 5.2 g/dL [facility] Albumin/Globulin [Mass ratio] 1.5 {ratio} [employer] ALP (Bld) [Catalytic activity/Vol] 90 U/L 40 - 129 U/L [employer] ALT [Catalytic activity/Vol] 37 U/L 5 - 41 U/L [facility] Anion gap [Moles/Vol] 10 mmol/L 9 - 17 mmol/L [facility] AST [Catalytic activity/Vol] 18 U/L <40 [facility] Bilirubin [Mass/Vol] 0.83 mg/dL 0.3 - 1.2 mg/dL [employer] Calcium [Mass/Vol] 9.7 mg/dL 8.6 - 10.4 mg/dL [employer] Chloride [Moles/Vol] 101 mmol/L 98 - 107 mmol/L [employer] CO2 [Moles/Vol] 29 mmol/L 20 - 31 mmol/L [employer] Creatinine [Mass/Vol] 0.83 mg/dL 0.70 - 1.20 mg/dL [employer] Free PSA/Total PSA [Mass fraction] 7.6 g/dL 6.4 - 8.3 g/dL [employer] GFR >60 >60 mL/min [facility] GFR Non- >60 >60 mL/min [facility] Glucose [Mass/Vol] 110 mg/dL High 70 - 99 mg/dL [facility] Interpretation and review of laboratory results Abnormal [facility] Potassium [Moles/Vol] 4.2 mmol/L 3.7 - 5.3 mmol/L [facility] Sodium [Moles/Vol] 140 mmol/L 135 - 144 mmol/L [facility] Urea nitrogen (BldV) [Mass/Vol] 10 mg/dL 6 - 20 mg/dL [facility] Urea nitrogen/Creatinine (Bld) [Mass ratio] 12 [facility] Laboratory - Chemistry and C hemistry - challengeon 06-08-2021 GFR/1.73 sq M.predicted MDRD (S/P/Bld) [Vol rate/Area] [facility] Comment on above: Average GFR for 40-4 9 years old: 99 mL/min/1.73sq m Chronic Kidney Disease: <60 mL/min/1.73sq m Kidney failure: <15 mL/min/1.73sq m eGFR calculated using average adult body mass. Additional eGFR calculator available at: http://www.[employer]/multiple_crcl_2012.htm Stage 1: Some kidney damage normal GFR Stage 2: Mild kidney damage GFR 60-89 Stage 3: Moderate kidney damage GFR 30-59 Stage 4: Severe kidney damage GFR 15-29 Stage 5: Severe kidney damage GFR <15 ESRD - chronic treatment by dialysis or transplant Lactic Acidon 06-08-2021 Lactate [Moles/Vol] 2.1 mmol/L 0.5 - 2.2 mmol/L [facility] Lipaseon 06-08-2021 Lipase [Catalytic activity/Vol] 30 U/L 13 - 60 U/L [facility] No Panel Informationon 06-08 [facility] Basic Metabolic Panelon Anion gap [Moles/Vol] 9 mmol/L 9 - 17 mmol/L [facility], [place] Bun/Cre Ratio 12 [facility] [place] [place] Calcium [Mass/Vol] 8.8 mg/dL 8.6 - 10.4 mg/dL [facility], [place] Chloride [Moles/Vol] 98 mmol/L 98 - 107 mmol/L [place], [place] CO2 [Moles/Vol] 26 mmol/L 20 - 31 mmol/L [place] Creatinine [Mass/Vol] 1.04 mg/dL 0.7 - 1.2 mg/dL [place] GFR >60 >60 mL/min [place] GFR Non- >60 >60 mL/min [place] Glucose [Mass/Vol] 111 mg/dL High 70 - 99 mg/dL [place], [place] Interpretation and review of laboratory results Abnormal [place] Potassium [Moles/Vol] 3.9 mmol/L 3.7 - 5.3 mmol/L [place] Sodium [Moles/Vol] 133 mmol/L Low 135 - 144 mmol/L [place] Urea nitrogen [Mass/Vol] 12 mg/dL 6 - 20 mg/dL [place] Brain Natriuretic Peptideon 03-19-2020 Natriuretic peptide B (Bld) [Mass/Vol] Pro-BNP Reference Range: [place], [place] Comment on above: Rule Out: <300 Reis Zone: Age <50 300-450 Age 50-75 300-900 Age >75 300-1800 Usually represents mild to moderate HF but other cardiopulmonary causes cannot be ruled out. Rule In: Age <50 >450 Age 50-75 >900 Age >75 >1800 Natriuretic peptide B (Bld) [Mass/Vol] 60 pg/mL <300 [place] Comment on above: Pro-BNP results radha ot be compared to BNP results. CBC Auto Differentialon Basophils (Bld) [#/Vol] 0.04 10*3/uL [place] Basophils/100 WBC (Bld) 1 % 0 - 2 % [place] Differential Type NOT REPORTED [place] Eosinophils (Bld) [#/Vol] 0.04 10*3/uL [place] Eosinophils/100 WBC (Bld) 1 % 1 - 4 % [place] Erythrocyte distribution width (RBC) [Ratio] 12.5 % 11.8 - 14.4 % [place] Hematocrit (Bld) [Volume fraction] 48.2 % 40.7 - 50.3 % [place] Hemoglobin (Bld) [Mass/Vol] 16.3 g/dL 13 - 17 g/dL [place] Immature granulocytes (Bld) [#/Vol] 1 % High 0 [place] Immature granulocytes (Bld) [#/Vol] 0.07 10*3/uL [place] Interpretation and review of laboratory results Abnormal [place] Lymphocytes (Bld) [#/Vol] 1.10 10*3/uL [place] Lymphocytes/100 WBC (Bld) 13 % Low 24 - 43 % [place] MCH (RBC) [Entitic mass] 29.4 pg 25.2 - 33.5 pg [place] MCHC (RBC) [Mass/Vol] 33.8 g/dL 28.4 - 34.8 g/dL [place] MCV (RBC) [Entitic vol] 87.0 fL 82.6 - 102.9 fL [place] Monocytes (Bld) [#/Vol] 0.96 10*3/uL [place] Monocytes/100 WBC (Bld) 11 % 3 - 12 % [place] Platelet mean volume (Bld) [Entitic vol] 11.2 fL 8.1 - 13.5 fL [place] Platelets (Bld) [#/Vol] 175 10*3/uL [place] Platelets (Bld) [#/Vol] NOT REPORTED [place] RBC (Bld) [#/Vol] 5.54 10*6/uL 4.21 - 5.77 m/uL [place] RBC morphology finding Nom (Bld) NOT REPORTED [place] Segmented neutrophils/100 WBC (Bld) 73 % High 36 - 65 % [place] Segs Absolute 6.21 [place] WBC (Bld) [#/Vol] 8.4 10*3/uL [place] WBC (Bld) [#/Vol] 0.0 10*3/uL 0.0 per 100 WBC M [place] WBC Morphology NOT REPORTED [place], [place] COVID-19, PCRon 03-19-2020 Interpretation and review of laboratory results Abnormal [place] SARS-CoV-2, Rapid DETECTED Abnormal Not Detected [place] Comment on above: Rapid NAAT: The [...] this assay. Fact sheet for Healthcare Providers: https://www.fda.gov/media/449837/download Fact sheet for Patients: https://www.fda.gov/media/481922/download Methodology: Isothermal Nucleic Acid Amplification Results reported to the appropriate Health Department Source .NASOPHARYNGEAL SWAB [place] CHEST PULMONARY EMBOLISM W CONTRASTon 03-19-2020 1. No pulmonary embolism. 2. Multifocal ground-glass opacities in the bilateral lungs with overall pattern of concern for underlying viral pneumonitis. 3. Hepatomegaly and diffuse steatosis in the abdomen, stable from remote imaging. [place] Tito, Mhpn Incoming Radiant Results From [email or web address] - 03/19/2020 8:26 PM EST EXAMINATION: CTA [...] in the abdomen, stable from remote imaging. [place] EXAMINATION: CTA OF THE CHEST 03/19/2020 [...] Tissues/Bones: No skeletal abnormalities throughout the chest. [place] Lactic Acid, Plasmaon 2020 Lactate [Moles/Vol] 1.2 mmol/L 0.5 - 2.2 mmol/L [place] Lactic Acid, Whole Blood NOT REPORTED 0.7 - 2.1 mmol/L [place] Metabolic Panelon 03-19-2020 GFR/1.73 sq M predicted among non-blacks MDRD (S/P/Bld) [Vol rate/Area] [place] Comment on above: Average GFR for 40-4 9 years old: 99 mL/min/1.73sq m Chronic Kidney Disease: <60 mL/min/1.73sq m Kidney failure: <15 mL/min/1.73sq m eGFR calculated using average adult body mass. Additional eGFR calculator available at: http://www.[employer]/multiple_crcl_2012.htm Stage 1: Some kidney damage normal GFR Stage 2: Mild kidney damage GFR 60-89 Stage 3: Moderate kidney damage GFR 30-59 Stage 4: Severe kidney damage GFR 15-29 Stage 5: Severe kidney damage GFR <15 ESRD - chronic treatment by dialysis or transplant Otheron 03-19-2020 SARS-CoV-2 [place] Rapid influenza A/B antigens on 03-19-2020 Direct Exam NEGATIVE for Influenza A + B antigens. PCR testing to confirm this result is available upon request. Specimen will be saved in the laboratory for 7 days. Please call [phone] if PCR testing is indicated. [place] Special Requests NOT REPORTED [place] Specimen Description .NASOPHARYNGEAL SWAB [place] Troponinon 03-19-2020 Troponin I.cardiac [Mass/Vol] NOT REPORTED [place] Troponin T.cardiac [Mass/Vol] NOT REPORTED <0.03 ng/mL [place] Troponin, High Sensitivity 15 ng/L 0 - 22 ng/L [place] Comment on above: High Sensitivity Troponin values cannot be compared with other Troponin methodologies. Patients with high levels of Biotin oral intake (i.e >5mg/day) may have falsely decreased Troponin levels. Samples collected within 8 hours of biotin intake may require additional information for diagnosis. XR CHEST PORTABLEon 03-19-19 21 Tito, Mhpn Incoming Radiant Results From [email or web address] - 03/19/2020 6:06 PM EST EXAMINATION: ONE XRAY VIEW OF THE CHEST 03/19/2020 5:58 pm COMPARISON: June 27, 2018 HISTORY: ORDERING SYSTEM PROVIDED HISTORY: dyspnea TECHNOLOGIST PROVIDED HISTORY: dyspnea FINDINGS: Mild edema. Heart and mediastinum normal. Bony thorax intact. IMPRESSION: Mild edema or pneumonitis [place] EXAMINATION: ONE XRAY VIEW OF THE CHEST 03/19/2020 5:58 pm COMPARISON: June 27, 2018 HISTORY: ORDERING SYSTEM PROVIDED HISTORY: dyspnea TECHNOLOGIST PROVIDED HISTORY: dyspnea FINDINGS: Mild edema. Heart and mediastinum normal. Bony thorax intact. [place] Mild edema or pneumonitis [place] Otheron 10-21-2019 No acute abnormalities seen in the left foot or left ankle [place] EXAMINATION: THREE XRAY VIEWS OF THE [...] medial malleolus most likely from old trauma. [place] Tito, Mhpn Incoming Radiant Results From [email or web address] - 10/21/2019 4:26 PM EDT EXAMINATION: THREE [...] in the left foot or left ankle [place] Basic Metabolic Panel w/ Ref katrin to MGon 02-06-2019 Anion gap [Moles/Vol] 13 mmol/L 9 - 17 mmol/L [place] Bun/Cre Ratio 16 [place], [place] Calcium [Mass/Vol] 8.4 mg/dL Low 8.6 - 10.4 mg/dL [place] Chloride [Moles/Vol] 99 mmol/L 98 - 107 mmol/L [place] CO2 [Moles/Vol] 23 mmol/L 20 - 31 mmol/L [place] Creatinine [Mass/Vol] 0.94 mg/dL 0.7 - 1.2 mg/dL [place] GFR >60 >60 mL/min [place] GFR Non- >60 >60 mL/min [place] Glucose [Mass/Vol] 130 mg/dL High 70 - 99 mg/dL [place], [place] Interpretation and review of laboratory results Abnormal [place] Potassium [Moles/Vol] 3.7 mmol/L 3.7 - 5.3 mmol/L [place] Sodium [Moles/Vol] 135 mmol/L 135 - 144 mmol/L [place] Urea nitrogen [Mass/Vol] 15 mg/dL 6 - 20 mg/dL [place] CBCon 02-06-2019 Erythrocyte distribution width (RBC) [Ratio] 12.5 % 11.8 - 14.4 % [place] Hematocrit (Bld) [Volume fraction] 45.4 % 40.7 - 50.3 % [place] Hemoglobin (Bld) [Mass/Vol] 15.1 g/dL 13 - 17 g/dL [place] MCH (RBC) [Entitic mass] 29.8 pg 25.2 - 33.5 pg [place] MCHC (RBC) [Mass/Vol] 33.3 g/dL 28.4 - 34.8 g/dL [place] MCV (RBC) [Entitic vol] 89.5 fL 82.6 - 102.9 fL [place] Platelet mean volume (Bld) [Entitic vol] 10.4 fL 8.1 - 13.5 fL [place] Platelets (Bld) [#/Vol] 198 10*3/uL [place] RBC (Bld) [#/Vol] 5.07 10*6/uL 4.21 - 5.77 m/uL [place] WBC (Bld) [#/Vol] 0.0 10*3/uL 0.0 per 100 WBC [place] WBC (Bld) [#/Vol] 10.7 10*3/uL [place] Culture Stoolon 02-06-2019 Campylobacter PCR NEGATIVE: No Campylobacter spp. (jejuni or coli) DNA Detected NEGATIVE: No Campylobacter spp. (jejuni or coli) DNA Detecte [place] E Coli Enterotoxigenic PCR NEGATIVE: No Enterotoxigenic E. coli (ETEC) Heat-labile and heat-stable (LT/ST) DNA Detected NEGATIVE: No Enterotoxigenic E. coli (ETEC) Heat-labile and [place] Plesiomonas Shigelloides PCR Negative NEGATIVE: No Plesionomas shigelloides DNA Detected [place] Salmonella PCR Negative NEGATIVE: No Salmonella spp. DNA Detected [place] Shigatoxin Gene PCR Negative NEGATIVE : No Shiga toxin-producing gene(s) Detected [place] Shigella Sp PCR Negative NEGATIVE: No Shigella spp. / EIEC DNA Detected [place] Specimen Description .FECES [place] Vibrio PCR NEGATIVE: No Vibrio (V. vulnificus, V, parahaemolyticus and V. cholerae) DNA Detected NEGATIVE: No Vibrio (V. vulnificus, V, parahaemolyticus and [place] Yersinia Enterocolitica PCR Negative NEGATIVE: No Yersinia enterocolitica DNA Detected [place] Metabolic Panelon 02-06-2019 GFR/1.73 sq M predicted among non-blacks MDRD (S/P/Bld) [Vol rate/Area] [place] Comment on above: Stage 1: Some [...] body mass. Additional eGFR calculator available at: http://www.[employer]/multiple_crcl_2012.htm Microscopic Urinalysison Amorphous, UA NOT REPORTED None [place], [place] Bacteria, UA TRACE Abnormal None [place] Casts UA NOT REPORTED /LPF [place] Crystals UA NOT REPORTED None /HPF [place], [place] Epithelial Cells UA 0 TO 2 [place] Interpretation and review of laboratory results Abnormal [place] Mucus, UA TRACE Abnormal None [place] Other Observations UA NOT REPORTED NOT REQ. [place] RBC (U) [#/Vol] 0 TO 2 [place], [place] Renal Epithelial, Urine NOT REPORTED 0 /HPF [place] Trichomonas, UA NOT REPORTED None [place] WBC, UA None [place] Yeast, UA NOT REPORTED None [place] - [place] Urinalysis Reflex to Culture on 02-06-2019 Bilirubin Urine Negative NEGATIVE [place], [place] Color, UA YELLOW YELLOW [place] Glucose, Ur Negative NEGATIVE [place] Interpretation and review of laboratory results Abnormal [place] Ketones Ql (U) TRACE Abnormal NEGATIVE [place], [place] Leukocyte esterase Test strip Ql (U) Negative NEGATIVE [place] Nitrite, Urine Negative NEGATIVE [place] pH, UA 5.5 [place] Protein (U) [Mass/Vol] TRACE Abnormal NEGATIVE [place] Specific [place], UA >1.030 High [place], [place] Turbidity UA CLEAR CLEAR [place] Urinalysis Comments NOT REPORTED [place], [place] Urine Hgb 1+ Abnormal NEGATIVE [place] Urobilinogen, Urine Normal Normal [place] C DIFF TOXIN/ANTIGENon 02-05 C DIFF AG + TOXIN Negative NEGATIVE [place] Comment on above: No C. difficile anti gen and Toxin Detected. Specimen Description .FECES [place] CBCon 02-05-2019 Erythrocyte distribution width (RBC) [Ratio] 12.0 % 11.8 - 14.4 % [place] Hematocrit (Bld) [Volume fraction] 49.7 % 40.7 - 50.3 % [place] Hemoglobin (Bld) [Mass/Vol] 17.2 g/dL High 13 - 17 g/dL [place] Interpretation and review of laboratory results Abnormal [place] MCH (RBC) [Entitic mass] 30.4 pg 25.2 - 33.5 pg [place] MCHC (RBC) [Mass/Vol] 34.6 g/dL 28.4 - 34.8 g/dL [place] MCV (RBC) [Entitic vol] 87.8 fL 82.6 - 102.9 fL [place] Platelet mean volume (Bld) [Entitic vol] 10.8 fL 8.1 - 13.5 fL [place] Platelets (Bld) [#/Vol] 233 10*3/uL [place] RBC (Bld) [#/Vol] 5.66 10*6/uL 4.21 - 5.77 m/uL [place] WBC (Bld) [#/Vol] 15.0 10*3/uL [place] WBC (Bld) [#/Vol] 0.0 10*3/uL 0.0 per 100 WBC [place] ABDOMEN PELVIS W IV CONTR AST Additional Contrast? Noneon 02-05-2019 Tito, Mhpn Incoming Radiant Results From [email or web address] - 02/05/2019 6:20 PM EST EXAMINATION: CT [...] pathologic adenopathy. Bones/Soft Tissues: Normal IMPRESSION: Ileus [place], [place] EXAMINATION: CT OF THE ABDOMEN AND [...] is no pathologic adenopathy. Bones/Soft Tissues: Normal [place] Ileus [place] Comprehensive Metabolic Pane karan 02-05-2019 Albumin [Mass/Vol] 4.6 g/dL 3.5 - 5.2 g/dL [place] Albumin/Globulin [Mass ratio] 1.4 {ratio} [place] ALP [Catalytic activity/Vol] 88 U/L 40 - 129 U/L [place] ALT [Catalytic activity/Vol] 43 U/L High 5 - 41 U/L [place] Anion gap [Moles/Vol] 19 mmol/L High 9 - 17 mmol/L [place] AST [Catalytic activity/Vol] 23 U/L <40 [place] Bilirubin Ql (U) 1.37 mg/dL High 0.3 - 1.2 mg/dL [place], [place] Bun/Cre Ratio 16 [place], [place] Calcium [Mass/Vol] 9.4 mg/dL 8.6 - 10.4 mg/dL [place] Chloride [Moles/Vol] 96 mmol/L Low 98 - 107 mmol/L [place] CO2 [Moles/Vol] 21 mmol/L 20 - 31 mmol/L [place] Creatinine [Mass/Vol] 0.9 mg/dL 0.7 - 1.2 mg/dL [place] GFR >60 >60 mL/min [place] GFR Non- >60 >60 mL/min [place] Glucose [Mass/Vol] 119 mg/dL High 70 - 99 mg/dL [place], [place] Interpretation and review of laboratory results Abnormal [place] Potassium [Moles/Vol] 4.2 mmol/L 3.7 - 5.3 mmol/L [place] Protein [Mass/Vol] 8.0 g/dL 6.4 - 8.3 g/dL [place] Sodium [Moles/Vol] 136 mmol/L 135 - 144 mmol/L [place] Urea nitrogen [Mass/Vol] 14 mg/dL 6 - 20 mg/dL [place] Lactic Acid, Plasmaon 2018 Interpretation and review of laboratory results Abnormal [place] Lactate [Moles/Vol] 2.4 mmol/L High 0.5 - 2.2 mmol/L [place] Lactic Acid, Whole Blood NOT REPORTED 0.7 - 2.1 mmol/L [place] Lipaseon 02-05-2019 Lipase [Catalytic activity/Vol] 32 U/L 13 - 60 U/L [place] Metabolic Panelon 02-05-2019 GFR/1.73 sq M predicted among non-blacks MDRD (S/P/Bld) [Vol rate/Area] [place] Comment on above: Average GFR for 40-4 9 years old: 99 mL/min/1.73sq m Chronic Kidney Disease: <60 mL/min/1.73sq m Kidney failure: <15 mL/min/1.73sq m eGFR calculated using average adult body mass. Additional eGFR calculator available at: http://www.[employer]/multiple_crcl_2012.htm Stage 1: Some kidney damage normal [...] Diastolic blood pressure 81 mm[Hg] PHYSICIAN NO [facility] 10-11-2022 15:03-0400 Heart rate 75 /min PHYSICIAN NO [facility] 10-11-2022 15:03-0400 Respiratory rate 20 /min PHYSICIAN NO [facility] 10-11-2022 15:03-0400 SaO2% (BldA) [Mass fraction] 97 % PHYSICIAN NO [facility] 10-11-2022 15:03-0400 Systolic blood pressure 146 mm[Hg] PHYSICIAN NO [facility] 10-11-2022 12:17-0400 Body temperature 98.3 [degF] PHYSICIAN NO [facility] 10-11-2022 12:12-0400 Body height 175.26 cm PHYSICIAN NO [facility] 10-11-2022 12:12-0400 Body weight 128.6 kg PHYSICIAN NO [facility] 08-18-2022 12:04-0400 Body temperature 97.9 [degF] PHYSICIAN NO [facility] 08-18-2022 11:58-0400 Body height 177.8 cm PHYSICIAN NO [facility] 08-18-2022 11:58-0400 Body weight 129.36 kg PHYSICIAN NO [facility] 08-18-2022 11:58-0400 Diastolic blood pressure 115 mm[Hg] PHYSICIAN NO [facility] 08-18-2022 11:58-0400 Heart rate 107 /min PHYSICIAN NO [facility] 08-18-2022 11:58-0400 Respiratory rate 20 /min PHYSICIAN NO [facility] 08-18-2022 11:58-0400 SaO2% (BldA) [Mass fraction] 97 % PHYSICIAN NO [facility] 08-18-2022 11:58-0400 Systolic blood pressure 159 mm[Hg] PHYSICIAN NO [facility] 12-19-2021 18:32-0400 Body temperature 98.1 [degF] PHYSICIAN NO [facility] 12-19-2021 18:32-0400 Diastolic blood pressure 105 mm[Hg] PHYSICIAN NO [facility] 12-19-2021 18:32-0400 Heart rate 106 /min PHYSICIAN NO [facility] 12-19-2021 18:32-0400 Respiratory rate 20 /min PHYSICIAN NO [facility] 12-19-2021 18:32-0400 SaO2% (BldA) [Mass fraction] 96 % PHYSICIAN NO [facility] 12-19-2021 18:32-0400 Systolic blood pressure 153 mm[Hg] PHYSICIAN NO [facility] 12-19-2021 17:44-0400 Body height 177.8 cm PHYSICIAN NO [facility] 12-19-2021 17:44-0400 Body weight 134.55 kg PHYSICIAN NO [facility] 12-17-2021 09:40-0400 Body height 177.8 cm PHYSICIAN NO [facility] 12-17-2021 09:40-0400 Body temperature 98.1 [degF] PHYSICIAN NO [facility] 12-17-2021 09:40-0400 Body weight 134 kg PHYSICIAN NO [facility] 12-17-2021 09:40-0400 Diastolic blood pressure 108 mm[Hg] PHYSICIAN NO [facility] 12-17-2021 09:40-0400 Heart rate 114 /min PHYSICIAN NO [facility] 12-17-2021 09:40-0400 Respiratory rate 20 /min PHYSICIAN NO [facility] 12-17-2021 09:40-0400 SaO2% (BldA) [Mass fraction] 98 % PHYSICIAN NO [facility] 12-17-2021 09:40-0400 Systolic blood pressure 171 mm[Hg] PHYSICIAN NO [facility] 12-02-2021 14:50-0400 Body height 177.8 cm PHYSICIAN NO [facility] 12-02-2021 14:50-0400 Body temperature 98.6 [degF] PHYSICIAN NO [facility] 12-02-2021 14:50-0400 Body weight 133.2 kg PHYSICIAN NO [facility] 12-02-2021 14:50-0400 Diastolic blood pressure 102 mm[Hg] PHYSICIAN NO [facility] 12-02-2021 14:50-0400 Heart rate 117 /min PHYSICIAN NO [facility] 12-02-2021 14:50-0400 Respiratory rate 18 /min PHYSICIAN NO [facility] 12-02-2021 14:50-0400 SaO2% (BldA) [Mass fraction] 98 % PHYSICIAN NO [facility] 12-02-2021 14:50-0400 Systolic blood pressure 174 mm[Hg] PHYSICIAN NO [facility] 06-08-2021 14:28-0400 Heart rate 117 /min Fatoumata Tillman CNP Work Phone: [facility] 06-08-2021 14:28-0400 SaO2% (BldA) [Mass fraction] 95 % Fatoumata Tillman CNP Work Phone: [facility] 06-08-2021 14:22-0400 Body height 177.8 cm Fatoumata Tillman CNP Work Phone: [facility] 06-08-2021 14:22-0400 Body mass index (BMI) [Ratio] 44.77 kg/m2 Fatoumata Sanchez APRN - DANCING INSTRUCTOR Work Phone: [facility] 06-08-2021 14:22-0400 Body temperature 98.1 [degF] Fatoumata Sanchez VICE PRESIDENT RISK MANAGEMENT - DANCING INSTRUCTOR Work Phone: [facility] [employer] 06-08-2021 14:22-0400 Body weight 141.52 kg Fatoumata Sanchez VICE PRESIDENT RISK MANAGEMENT - DANCING INSTRUCTOR Work Phone: [facility] [employer] 06-08-2021 14:22-0400 Diastolic blood pressure 120 mm[Hg] Fatoumata Sanchez VICE PRESIDENT RISK MANAGEMENT - DANCING INSTRUCTOR Work Phone: [facility] [employer] 06-08-2021 14:22-0400 Respiratory rate 18 /min Fatoumata Sanchez VICE PRESIDENT RISK MANAGEMENT - DANCING INSTRUCTOR Work Phone: [facility] [employer] 06-08-2021 14:22-0400 Systolic blood pressure 170 mm[Hg] Fatoumata Sanchez VICE PRESIDENT RISK MANAGEMENT - DANCING INSTRUCTOR Work Phone: [facility] 03-19-2020 23:45-0500 BP Diastolic 101 mm[Hg] [facility] , [place] 03-19-2020 23:45-0500 BP Systolic 148 mm[Hg] [facility] , [place] 03-19-2020 23:45-0500 Pulse (Heart Rate) 117 /min [facility], [place] 03-19-2020 23:45-0500 Pulse Oximetry 94 % [facility] , [place] 03-19-2020 23:45-0500 Respiratory Rate 23 /min [facility] [place] 03-19-2020 19:57-0500 Body Temperature 99.9 [degF] [facility] [place] 03-19-2020 17:38-0500 BMI (Body Mass Index) 45.92 kg/m2 [facility], [place] 03-19-2020 17:38-0500 Body weight 145.15 kg [facility] , [place] 03-19-2020 17:38-0500 Height 177.8 cm [facility] [place] 10-21-2019 17:46-0400 BP Diastolic 103 mm[Hg] [facility] [place] 10-21-2019 17:46-0400 BP Systolic 163 mm[Hg] [facility] , [place] 10-21-2019 17:37-0400 Pulse (Heart Rate) 109 /min [place] 10-21-2019 17:37-0400 Respiratory Rate 18 /min [place] 10-21-2019 16:02-0400 BMI (Body Mass Index) 44.3 kg/m2 [place] 10-21-2019 16:02-0400 Body Temperature 97 [degF] [place] 10-21-2019 16:02-0400 Body weight 136.08 kg [place] 10-21-2019 16:02-0400 Pulse Oximetry 96 % [place] 02-07-2019 08:18-0500 Body Temperature 97.7 [degF] Dat Jacquelyn [place] 02-07-2019 08:18-0500 BP Diastolic 102 mm[Hg] Dat [place] 02-07-2019 08:18-0500 BP Systolic 132 mm[Hg] Dat [place] 02-07-2019 08:18-0500 Pulse (Heart Rate) 76 /min Dat [place] 02-07-2019 08:18-0500 Pulse Oximetry 96 % Dat [place] 02-07-2019 08:18-0500 Respiratory Rate 16 /min Dat Jacquelyn [place] 02-07-2019 04:51-0500 BMI (Body Mass Index) 42.06 kg/m2 Dat Jacqu[place] 02-07-2019 04:51-0500 Body weight 129.18 kg Dat [place], [place] 02-06-2019 08:10-0500 Height 175.3 cm Dat [place] Encounters Encounter Date Encounter Type Care Provider Facility Start: 02-27-2024 End: 02-27-2024 Emergency department patient visit Med Koenig Facility:[facility] Start: 02-26-2024 End: 02-26-2024 ambulatory Yana Navas RN [facility] Start: 02-15-2024 End: 02-15-2024 Emergency department patient visit Jenelle Judge Facility:[facility] Start: 07-04-2023 End: 07-04-2023 Emergency department patient visit [facility] Start: 11-17-2022 End: 11-17-2022 ambulatory AB [facility] Start: 10-31-2022 End: 10-31-2022 ambulatory AB [facility] Start: 10-11-2022 End: 10-11-2022 Emergency department patient visit PHYSICIAN NO [facility] Work Phone: Start: 08-18-2022 End: 08-18-2022 Emergency department patient visit PHYSICIAN NO [facility] Work Phone: Start: 05-15-2022 End: 05-16-[address] NONE LISTED REQUEST Facility:[facility] Start: 05-11-2022 End: 05-11-[address] NONE LISTED REQUEST Facility:[facility] Start: 01-21-2022 End: 01-21-2022 ambulatory PHYSICIAN NO [facility] Work Phone: Start: 01-21-2022 End: 01-21-2022 Discharged Recurring PHYSICIAN NO [facility] [employer] [facility] [address] Start: 12-19-2021 End: 12-19-2021 Emergency department patient visit PHYSICIAN NO [facility] Start: 12-17-2021 End: 12-17-2021 Emergency department patient visit PHYSICIAN NO [facility] Start: 12-02-2021 End: 12-02-2021 Emergency department patient visit PHYSICIAN NO [facility] Start: 06-08-2021 End: 06-08-2021 Emergency department patient visit Fatoumata Sanchez APRN - DANCING INSTRUCTOR Work Phone: [facility] ED Comment on above: Enteritis (Primary D x) Start: 03-19-2020 End: 03-20-2020 Emergency department patient visit [facility] ED Comment on above: COVID-19 (Primary Dx ) Start: 10-21-2019 End: 10-21-2019 Emergency department patient visit [facility] ED Comment on above: Left Achilles tendin itis (Primary Dx) Start: 02-05-2019 End: 02-07-2019 Evaluation and management of inpatient Dat Jean Baptiste [facility] Comment on above: Ileus [...] abdomen & pelvis w/contrast material Fatoumata Sanchez VICE PRESIDENT RISK MANAGEMENT - DANCING INSTRUCTOR Work Phone: Start: 06-08-2021 Comprehensive metabo lic panel Fatoumata Sanchez VICE PRESIDENT RISK MANAGEMENT - DANCING INSTRUCTOR Work Phone: Start: 03-19-2020 Ct thorax w/contrast material Arabella Blandon Work Phone: Start: 03-19-2020 COVID-19 [facility] Work Phone: Start: 03-19-2020 Iaadiadoo influenza [facility] Work Phone: Start: 03-19-2020 Assay [...] Phone: Start: 02-06-2019 Urinalysis microscop ic only [employer] Work Phone: Start: 02-06-2019 Urnls dip stick/tabl et rgnt auto w/o microscopy [employer] Work Phone: Start: 02-05-2019 Cul bact stool aerob ic isol salmonella&shigell [employer] Work Phone: Start: 02-05-2019 Toxin/antitoxin assa y tissue culture [facility]ellaGoYoDeo Work Phone: Start: 02-05-2019 Ct abdomen & pelvis w/contrast material [facility] Work Phone: Start: 02-05-2019 Assay of lactate [facility]ella[facility]Deo Work Phone: Start: 02-05-2019 [facility] Work Phone: Start: 02-05-2019 Blood count complete automated [employer] Work Phone: Start: 02-05-2019 Comprehensive metabo lic panel [facility]ellaGoYoDeo Work Phone: SARS Antigen (LFIA) PHYSICIA N NO FAMILY Plan of Treatment Date Care Activity Detail Author Start: 02-01-2024 Adult BMI Screening Adult BMI Screen ing [facility] Start: 02-01-2024 Depression Screening Depression Scre ening [facility] Start: 02-01-2024 Tobacco Screening Tobacco Screening [facility] Start: 11-12-2023 Influenza vaccination Influenza Vacc ine [facility] Start: 2023 Screening for malign ant neoplasm of colon Colonoscopy [facility] Start: 06-08-2022 Creatinine measurement Creatinine mo [facility] Start: 06-08-2022 Potassium monitoring Potassium monit [facility] Start: 03-19-2021 Creatinine measurement Creatinine mo [place] Start: 03-19-2021 Potassium monitoring Potassium monit [place] Start: 11-11-2020 Influenza vaccination Flu vaccine (# 1) [facility] Start: 02-07-2020 Creatinine measurement Creatinine mo [place] Start: 02-07-2020 Potassium monitoring Potassium monit [place] Start: 11-12-2019 Influenza vaccination Flu vaccine (# 1) [place] Start: 06-28-2019 Creatinine [place] Start: 06-28-2019 Potassium monitoring Potassium monit [place] Start: 11-11-2018 Influenza vaccination Flu vaccine (# 1) [place] Start: 2018 Diabetes screen Diabetes screen [place] Start: 2018 Lipid panel Lipid screen [facility] Start: 2018 Lipid screen Lipid screen [place] Start: 2013 Diabetes screen Diabetes screen [facility] Start: 1997 DTaP,Tdap and Td Vaccines (1 - Tdap) DTaP,Tdap and Td Vaccines (1 - Tdap) [facility] Start: 1997 DTaP/Tdap/Td vaccine (1 - Tdap) DTaP/Tdap/Td vaccine (1 - Tdap) [facility] Start: 1993 HIV screen HIV screen [place], [place] Start: [address] HIV [address] [facility] Start: 1990 Depression Screen Depression Screen [facility] Start: 1989 DTaP/Tdap/Td vaccine (1 - Tdap) DTaP/Tdap/Td vaccine (1 - Tdap) [place] Start: 1983 COVID-19 Vaccine (1) COVID-19 Vaccin e (1) [facility] Start: 1978 Hepatitis C screening Hepatitis C sc reen [facility] End: 03-19-2020 Culture, Blood 1 Culture, Blood 1 Microbiology STAT One Time for 1 Occurrences starting 03/19/2020 until 03/19/2020 [facility] Comment on above: One Time for 1 Occur rences starting 03/19/2020 until 03/19/2020 Culture, Blood 1 Culture, Blood 1 Microbiology STAT 03/19/2020 6:00 PM [facility] EKG 12 Lead ECG STAT 03/19/2020 5:53 PM EST [facility] Initiate Oxygen Ther apy Protocol Initiate Oxygen Therapy Protocol Respiratory Care Routine Daily until discontinued starting 02/05/2019 [facility] Comment on above: Daily until disconti nued starting 02/05/2019 Nasal Cannula Oxygen Nasal Cannu la Oxygen Respiratory Care STAT Daily until discontinued starting 03/19/2020 [facility] Comment on above: Daily until disconti nued starting 03/19/2020 Patient Education [facility] Work Phone: Patient referral [facility] Work Phone: End: 02-05-2019 Pulse Oximetry Spot Check Pulse Oximetry Spot Check Respiratory Care Routine One Time for 1 Occurrences starting 02/05/2019 until 02/05/2019 [facility] Comment on above: One Time for 1 Occur rences starting 02/05/2019 until 02/05/2019 End: 06-08-2021 Urinalysis with Microscopic Urinalysis with Microscopic Lab STAT One Time for 1 Occurrences starting 06/08/2021 until 06/08/2021 [facility] Work Phone: Comment on above: One Time for 1 Occur rences starting 06/08/2021 until 06/08/2021 Payers Date Payer Category Payer Unknown [id number] 2022 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 [employer] [id number] 1978 Unknown [id number] 1978 Unknown [id number] 1959 Self-pay 1959 Worker's Compensation [id number] Unknown [id number] Unknown [id number] Social History Date Type Detail Facility Start: 10-21-2019 End: 10-04-2022 Tobacco smoking status NHIS Former smoker [place] Start: 10-21-2019 End: 10-04-2022 Tobacco use and exposure Never used [place] Start: 10-21-2019 End: 06-08-2021 Alcohol intake Current non-drinker of alcohol (finding) [place] Start: 1980 Sex Assigned At Not on file M [place] Start: 05-29-2021 End: 06-08-2021 Exposure to SARS-CoV-2 (event) Not sure [place] Start: 12-02-2021 End: 12-19-2021 Tobacco smoking status NHIS Never smoked tobacco (finding) [facility] Start: 1980 Sex Assigned At Male F [facility] End: 09-06-2022 History of tobacco use Current smoker [facility] End: 09-06-2022 History of tobacco use Cigarette Smoker [facility] Start: 01-31-2023 Alcoholic beverage intake Current drinker of alcohol (finding) [facility] Start: 01-31-2023 History of Social function [facility] Start: 01-31-2023 Tobacco use panel [facility] Adolescent depressio n screening assessment 2 [facility] Start: 10-04-2022 Alcohol Comment Social [facility] Start: 09-22-2022 Sex Male (finding) [facility] Clinical Notes 06-08-2021 to 02-26-2024 Telephone Encounter [...] (e.g., disoriented, slurred speech) Protocols used: Breathing Yfzwludynq-W-VO documented in this encounter [facility] 02-26-2024 Telephone encounter Note ----- Message from Livia sent at 02/26/2024 7:11 AM EST ----- Contract: [id number] Matti started taking Gabapentin 600 mg last night and this morning he feels dizzy and disoriented with heavy breathing [facility] 02-26-2024 Telephone encounter Note Contract: 198 Patient's [...] (e.g., disoriented, slurred speech) Protocols used: Breathing Gdjnammvov-P-AP [facility] [employer] [facility] 02-01-2023 Note This report has been cancelled. [facility] 02-01-2023 Note This report has been cancelled. [facility] 11-17-2022 Note Cardiovascular Labor atory Report [...] week Follow-up with [facility] in the [place] [facility] in the next 2 to 3 [...] left radial artery was obtained. A 6 Maori glide sheath was inserted without difficulty. Bilateral [...] INDICATIONS: Abnormal stress test, reduced ejection fraction 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 Additional Equipment Requests [facility] 10-31-2022 Note [facility] Note Chief Complaint: Patient here for follow up [facility] for chest pain. He was seen [...] pending the above Rafat Garcia MD, MPH, [facility], [facility], [facility] Interventional Cardiology Pager Email: [email or web address] 06-08-2021 Hospital Discharg e instructions Fatoumata Sanchez, VICE PRESIDENT RISK MANAGEMENT - DANCING INSTRUCTOR - 06/08/2021 Increase your fluid intake. Take Bentyl as prescribed. Follow-up with PCP for reevaluation in the next couple of days. Avoid dairy, spicy and fatty foods for the next week. Return here for increased pain, fever, difficulty breathing, vomiting or new or worsening signs or symptoms. The following attachments cannot be sent through Care Everywhere.Gastroenteritis (Belgian)documented in this encounter [employer] Work Phone: Evaluation note Diagnosis Enteritis- Primary Other and unspecified noninfectious gastroenteritis and colitis documented in this encounter [employer] Phone: evaluation noteNo assessment information available [facility] Work Phone: Hospital Discharge instructions Additional Instructions Rest ice elevate Use the wrist splint for comfort Take ibuprofen every 6 hours for discomfort [facility] with [facility] Follow-up with [facility] especially if not getting better [facility] Work Phone: Hospital Discharge instructions Additional Instructions Return for new or worsening symptoms Follow-up with family doctor and [facility] Work Phone: Hospital Discharge instructions Additional Instructions Please return to emergency department for any new or worrisome symptoms including any weakness, numbness, headache, vision changes. Follow-up with your family physician as soon as possible.[facility] Work Phone: InstructionsNot on filedocumented in this encounter [facility] Discharge Instructions * Attachments The following attachments cannot be sent through Care Everywhere. * Tendon Injury (Tendinopathy) (Belgian) documented in this encounter* Instructions* Lobito Sidhu [...] Everywhere. * Coronavirus Disease (COVID-19): General Info (Belgian) * Coronavirus Disease (COVID-19): Isolation (Belgian) documented in this encounter* Instructions* Bambi Segal [...] Where can you learn more? Go to [email or web address] and sign in to your [employer] account. Enter M933 in the Search Health Information box to learn more about [employer] About [employer]. If you do not have an account, please click on the Sign Up Now link. Current as of: January 17, 2018 Content Version: [id number] [employer]. Care instructions adapted under license by [employer]. If youhave questions about a medical condition or this instruction, always ask your healthcare professional. [employer] disclaims any warranty or liability for your use of this information. documented in this encounter Assessments Diagnosis Left Achilles tendinitis Achilles bursitis or tendinitis Diagnosis COVID-19- Primary Diagnosis Abdominal pain with Ileus- Primary Abdominal pain, unspecified site Ileus (HCC) Paralytic ileus Essential hypertension Unspecified essential hypertension Advance Directives No Advanced Directives Records FoundDocuments on File Type Date Recorded Patient Registered Respiratory Therapist Expl anation Advance Directives and Living Will Power of Gis Database Administrator Latest Code Status on File Code Status Date Activated Date Inactivated Comments Full Code 02/05/2019 9:40 PM 02/07/2019 3:36 PM Full Code 06/22/2016 5:58 AM 06/22/2016 7:53 PM Documents on File Type Date Recorded Patient Registered Respiratory Therapist Expl anation ACP-Advance Directive ACP-Power of Gis Database Administrator Latest Code Status on File Code Status Date Activated Date Inactivated Comments Full Code 02/05/2019 9:40 PM Advance Directive Response Recorded Date/ Time Advance Directives No November 3:14pm Advance Directive Response Recorded Date/ Time Advance Directives No November 2:14pm Hospital Course * Tal Gonzalez MD - 02/07/2019 11:47 AM EST Tal Gonzalez M.D. Internal Medicine Discharge Summary Patient ID: Henrik Cavanaugh [id number] Admission date: 02/05/2019 Discharge date: 02/07/2019 [...] no PCP but will be referred to [facility]. Discharge Exam: GEN: Awake, alert and [...] Discharge Medications: Henrik Cavanaugh Home Medication Instructions [id number] Printed on:02/07/19 1147 Medication Information amLODIPine (NORVASC) 5 MG tablet Take 1 tablet by mouth daily Patient Instructions: Activity: activity as tolerated Diet: regular diet Wound Care: none needed Follow up with [facility] 1-2 weeks CORE MEASURES on Discharge (if applicable) DORCAS/ARB in [place]: N/A ASA in [place]: N/A Statin in [place]: N/A Statin in [place]A: N/A Antiplatelet in CVA: N/A Total time spent on discharge services: 25 minutes Including the following activities: Evaluation and Management of patient Discussion with patient and/or surrogate about current care plan Coordination with Case Management and/or Ic Designer Custom Coordination of care with Consultants (if applicable) [...] by staff and family. Denies complaint. * aTl Gonzalez MD - 02/07/2019 11:29 AM EST [...] of care. To: __Dr. Jean Baptiste From: [facility] Sender:_KSchwochowRN Phone Number:_[phone] This request is: Urgent - No Information and/or questions regarding patient condition: Regarding Matti Cavaanugh- Patient is hypertensive today, BP's 149/101 right [...] you. Signature Date Time * Jamir Reed, VISION TEACHER, GLOVE BRUSHER - 02/06/2019 10:51 AM EST Social Work intial Assessment/Discharge Plan Diagnosis: Abdominal pain with Lleus Met with: Patient PCP: None. [facility] Payment Source: Private. No insurance. Advance Directives: None Code Status: Full Mental Status: Alert and oriented Living Arrangement: Patient lives at home in [place] with a roommate Support Systems: Roommate and [...] Needs/Discharge Plan: Patient will return home to [place] where he resides with a roommate. He [...] 5. Fluid Accumulation-No significant fluid accumulation, 6. Photoengraving Machine Operator/Tender Strength-Not measured Nutrition Risk Level: Moderate Nutrient Needs: Estimated Daily Total Kcal: 8213-8130(12-17) Estimated Daily Protein (g): 95-109(1.3-1.5) Estimated Daily [...] Weight Change: , 2% loss from 290# [employer] Body Wt: 160 lb (72.6 kg), % [employer] Body 178% BMI Classification: BMI > or [...] Patient/Family Education, Monitor Bowel Function Contact Number: [phone] Marija Horta RN - 02/06/2019 4:31 AM [...] oriented to room, pr watching tv when senior electrical design engineer left room documented in this encounter Chief [...] NO FAMILY Primary Care Provider [facility] Active Team Status: Inactive [...] Active Socorro Osullivan MD Emergency Provider Active Costume Specialist Relationship Specialty Start Date End Date Isabel Rodas APRN-DANCING INSTRUCTOR [address] [place] [address] PCP - General Family Medicine 10/04/22 Goals [...] DATE CREATED AUTHOR AUTHOR'S ORGANIZ ATION 03/04/2023 [facility] DATE CREATED AUTHOR AUTHOR'S ORGANIZ ATION 07/06/2023 [facility] DATE CREATED AUTHOR AUTHOR'S ORGANIZ ATION 05/11/2024 [facility] FOR RECORDS PERTAINING TO [...] BE BASED ON THE PRIMARY CLINICAL RECORDS. [facility] [employer] provides no warranty or guarantee of the accuracy or completeness of information in this document.
[2024-06-21 11:46] LABS: Alanine Aminotransferase 48 U/L (16-63); Albumin Level 3.9 g/dL (3.4-5.0); Alkaline Phosphatase 108 U/L (46-116); Aspartate Amino Transferase 19 U/L (15-37); Bilirubin Direct 0.1 mg/dL (0.0-0.2); Bilirubin Total 0.7 mg/dL (0.2-1.0); Globulin 3.9 g/dL; Total Protein 7.8 g/dL (6.4-8.2)
== END 2024-06-21 11:16 | disposition home or self-care (01) ==
LOC: LAB 11:16
PROVIDERS: PCP Nurse Practitioner
DX: Z01.810 Encounter for preprocedural cardiovascular examination (principal); I50.21 Acute systolic (congestive) heart failure; I11.0 Hypertensive heart disease with heart failure
CPT/HCPCS: 80076; 83880

== ENCOUNTER 2024-06-27 11:03 | Outpatient (OUT) | payer OTHER, SELFPAY ==
--- OUTSIDE RECORDS SUMMARY | 2024-06-27 11:11 | XMS_ITS | CCD ---
Demographics Address [address] [place], [place] [id number] Preferred Language en Marital Status Single Bahai Affiliation Unknown Race White Ethnic Group Not or Lati no Author Organization [facility] CliniSywy Care Team Providers Care Emissions Engineer Name Role Phone Unavailable Primary Care Provider Unavailabl e Carina Hernandez Primary Care Provider Unavailable Primary Care Provider Unavailabl e NO FAMILY, PHYSICIAN Primary Care Provider Unava ilARSALAN Hurtado Emergency Provider [phone] [facility]ie [facility] Jenelle E Emergency Provider [phone] MEENAKSHI Schmidt Emergency Provider [phone] NO FAMILY, PHYSICIAN Primary Care Provider Unava ilARSALAN Hurtado Emergency Provider [phone] Alfie [facility] Jenelle E Emergency Provider MEENAKSHI Schmidt Emergency Provider REQUEST, NONE LISTED Primary Care Unavaila KATE Freitas Admitting Unavailable KATE ALVAREZ Attending Unavailable KATE ALVAREZ Consulting Unavailable AMAN PURCELL Consulting Unavailable REQUEST, NONE LISTED Primary Care Unavaila ble JESUS ., JOSEFINA Admitting Unavailable JESUS ., JOSEFINA Attending Unavailable LIDIA .JOHANNY Consulting Unavailabl e Jeffry, James Consulting Unavailable NO FAMILY, PHYSICIAN Primary Care Provider Unava ilable DO Kris Narvaez Emergency Provider MARIEL Rodas Primary Care Provider MD Socorro Osullivan Emergency Provider [phone] Isabel Vázquez Primary Care Provid er Med Koenig Admitting Unavailable Isabel Rodas Primary Care Unavailable Med Koenig Attending Unavailable Jenelle Judge Attending Unavailable Jenelle Judge Admitting Unavailable Isabel Rodas Primary Care Unavailable MARK MORTON Attending Unavailable Tal ALVAREZ Primary Care Physician MARK MORTON Admitting Unavailable MD Krishan Holland Consulting Unavailable MARK MORTON Referring Unavailable MARK MORTON Attending Unavailable Krishan Holland Consulting Unavailable Krishan Holland Consulting Unavailable Allergies Allergy Classification Reported Allergen(s) Allergy Type Date of Onset Reaction(s) Facility (13 sources) Amoxicillin; Translations: [AMOXICILLIN] Drug Allergy 6 Unknown (qualifier value) [place], [place] (6 sources) fentaNYL; Translations: [FENTANYL] Drug Allergy 9 [place] (13 sources) predniSONE; Translations: [PREDNISONE] Drug Allergy 6 Other (See Comments) [place] (1 source) Amoxicillin Drug Allergy 3 [facility] Repository (1 source) predniSONE Drug Allergy 3 [facility] Repository (1 source) Amoxicillin Drug Allergy 4 [facility] Repository (1 source) predniSONE Drug Allergy 4 [facility] Repository (1 source) amLODIPine; Translations: [AMLODIPINE] Drug Allergy 3 [facility] Repository Medications Current Medications Medication Drug Class(es) Dates Sig (Normalized) Sig (Original) acetaminophen 500 mg oral tablet (4 sources) Start: 03-19-2020 acetaminophen (TYLENOL) tablet 1,000 mg Start: 03-19-2020 take 2 tablets by mo [facility] every six hours as needed for pain acetaminophen (TYLENOL) 325 MG tablet Take 2 tablets by mouth every 6 hours as needed for Pain 30 tablet 0 03/19/2020 Active Start: 02-05-2019 acetaminophen (TYLENOL) tablet 650 mg amLODIPine 10 mg oral tablet (6 sources) Dihydropyridine Calcium Channel Paula Start: 10-11-2022 take 10 mg by mouth [...] extended release oral tablet (2 sources) beta-Adrenergic Paula Start: 01-31-2023 take 1 tablet by mouth [...] 2022 12:00am naproxen 500 mg oral tablet (4 sources) Nonsteroidal Anti-inflammatory Drug Start: 04-30-2018 take 1 tablet by mouth twice daily [...] Translations: [Acute systolic (congestive) heart failure] Onset: 06-21-2024 Chronic Coronary atherosclerosis and other heart disease (3 sources) Preinfarction syndrome; Translations: [Unstable angina] Onset: 10-31-2022 01-23-2023 Chronic Disorders of lipid metabolism (2 sources) Mixed hyperlipidemia; Translations: [Mixed hyperlipidemia] Onset: 06-21-2024 Chronic Essential hypertension (14 sources) Essential hypertension; Translations: [Essential (primary) hypertension] [...] skin; Translations: [Paresthesia of skin] 10-11-2022 Episodic Residual codes; unclassified (2 sources) Localized edema; Translations: [Localized edema] Onset: 06-21-2024 Episodic Residual codes; unclassified (2 sources) Edema, unspecified; Translations: [Edema, unspecified] Onset: 06-21-2024 Episodic Screening and history of mental health [...] conditions (not mental disorders or infectious disease) (1 source) Cardiovascular stress test abnormal; Translations: [Abnormal result of other cardiovascular function study] Onset: 10-31-2022 01-23-2023 Episodic Other upper respiratory infections (4 sources) Acute pharyngitis; Translations: [Acute pharyngitis, unspecified] Onset: 04-23-2017 04-23-2017 Episodic Unclassified (1 source) Onset: 01-31-2023 01-31-2023 Results Test Name Value Interpretation Reference Range Facil ity Office Visiton 06-21-2024 Follow-up visit [id number] Lawson Lopez 1980 M Date Provider Department Center 06/21/2024 [id number] LEGGETT Family History Problem Relation Age of Onset No Known Problems Mother No Known Problems Father No Known Problems Brother Coronary artery disease Mother's Brother Peripheral vascular disease Mother's Brother Family Status - Relation Status Age at Mother Alive Father Alive Brother Alive Mother's Brother Level of Service:86189 [place] OFFICE/OUTPATIENT ESTABLISHED MOD MDM 30 MIN Normal [facility] Basic Metabolic Panelon 12- Anion gap [Moles/Vol] 12.9 mmol/L Normal 6.0-15.0 [facility] Comment on above: Performed By: #### C BC, BMP, PTT, PT, HS TROP #### [facility] [address] [place] [address] [place] Calcium [Mass/Vol] 9.2 mg/dL Normal 8.6-10.3 [facility] Comment on above: Performed By: #### C BC, BMP, PTT, PT, HS TROP #### [facility] [address] [place] [address] [place] Chloride [Moles/Vol] 103 mmol/L Normal 98-107 [facility] Comment on above: Performed By: #### C BC, BMP, PTT, PT, HS TROP #### [facility] [address] [place] [address] [place] CO2 [Moles/Vol] 26.4 mmol/L Normal 21.0-31.0 [facility] Comment on above: Performed By: #### C BC, BMP, PTT, PT, HS TROP #### [facility] [address] Creatinine [Mass/Vol] 0.89 mg/dL Normal 0.70-1.30 [facility] Comment on above: Performed By: #### C BC, BMP, PTT, PT, HS TROP #### [place] [address] [place] Creatinine Clr Calc Pharmacy 140.18 Normal [facility] Comment on above: Result Comment: PERF ORMED BY: [place] [address] PATHOLOGIST BISCUIT PACKER FRANK ARAUJO M.D. Performed By: #### C BC, BMP, PTT, PT, HS TROP #### [place] [address] [place] GFR/1.73 sq M.predicted MDRD (S/P/Bld) [Vol rate/Area] mL/min/{1.73_m2} Normal [facility] Comment on above: Performed By: #### C BC, BMP, PTT, PT, HS TROP #### [address] Glucose [Mass/Vol] 108 mg/dL High 70-100 [facility] Comment on above: Result Comment: [facility] Glucose Reference Range is dependent on time and content of last meal. Glucose of more than 200 mg/dL in a nonstressed, ambulatory subject supports the diagnosis of Diabetes Mellitus. ADA recommended reference range Performed By: #### C BC, BMP, PTT, PT, HS TROP #### [address] Potassium [Moles/Vol] 4.3 mmol/L Normal 3.5-5.1 [facility] Comment on above: Performed By: #### C BC, BMP, PTT, PT, HS TROP #### [address] Sodium [Moles/Vol] 138 mmol/L Normal 136-145 [facility] Comment on above: Performed By: #### C BC, BMP, PTT, PT, HS TROP #### [facility] [address] Urea nitrogen [Mass/Vol] 10 mg/dL Normal 7-25 [facility] Comment on above: Performed By: #### C BC, BMP, PTT, PT, HS TROP #### [facility] [address] angio neckon 02-27-2024 CT angio neck [facility] Main [place] [address] [place] [address] CT Scan Report Signed Patient: Lawson Lopez MR#: [id number] 168 : 1980 Acct:[id number] Age/Sex: 44 / M ADM Date: 02/27/24 Loc: ER Room: Type: [facility] ER Attending Dr: Copies to: Med Koenig DO Ordering Provider: Med Koenig DO Date of Service: 02/27/24 CT/CT head/brain wo con: r/o post circ stroke ([id number]) CT/CT angio neck: r/o post circ stroke ([id number]) CT/CT angio head: r/o post circ stroke [...] patent Posterior cerebral arteries: patent. origin left TRIAGE RN. Intracranial segments of the internal carotid arteries: [...] occlusion. Impression dictated by: Wayne Anguiano Jr., D.ODomitila02/27/2024 9:42 AM Dictation Location: [place] [address] Transcribed By: [facility] 02/27/2442 Dictated By: Wayne Anguiano Jr, DO 02/27/2438 Signed By: 02/27/24941 Normal [facility] Complete Blood Count Auto Di ffon 02-27-2024 Basophils (Bld) [#/Vol] 0.1 10*3/uL Normal 0.0-0.2 [facility] Comment on above: Result Comment: PERF ORMED BY: [place] [address] PATHOLOGIST BISCUIT PACKER FRANK ARAUJO M.D. Performed By: #### C BC, BMP, PTT, PT, HS TROP #### [facility] [address] [place] [address] [place] Basophils/100 WBC (Bld) 1.1 % Normal . [facility] Comment on above: Performed By: #### C BC, BMP, PTT, PT, HS TROP #### [facility] [address] [place] [address] [place] Eosinophils (Bld) [#/Vol] 0.2 10*3/uL Normal 0.0-0.45 [facility] Comment on above: Performed By: #### C BC, BMP, PTT, PT, HS TROP #### [facility] [address] [place] [address] [place] Eosinophils/100 WBC (Bld) 2.7 % Normal . [facility] Comment on above: Performed By: #### C BC, BMP, PTT, PT, HS TROP #### [address] Erythrocyte distribution width (RBC) [Ratio] 12.9 % Normal 12.0-14.8 [facility] Comment on above: Performed By: #### C BC, BMP, PTT, PT, HS TROP #### [address] Hematocrit (Bld) [Volume fraction] 46.1 % Normal 38.8-50.0 [facility] Comment on above: Performed By: #### C BC, BMP, PTT, PT, HS TROP #### [address] Hemoglobin (Bld) [Mass/Vol] 16.0 g/dL Normal 13.0-17.0 [facility] Comment on above: Performed By: #### C BC, BMP, PTT, PT, HS TROP #### [address] Lymphocytes (Bld) [#/Vol] 1.9 10*3/uL Normal 1.00-4.8 [facility] Comment on above: Performed By: #### C BC, BMP, PTT, PT, HS TROP #### [address] Lymphocytes/100 WBC (Bld) 22.3 % Normal . [facility] Comment on above: Performed By: #### C BC, BMP, PTT, PT, HS TROP #### [address] MCH (RBC) [Entitic mass] 30.7 pg Normal 27.5-35.2 [facility] Comment on above: Performed By: #### C BC, BMP, PTT, PT, HS TROP #### [address] MCV (RBC) [Entitic vol] 88.3 fL Normal 83.5-101 [facility] Comment on above: Performed By: #### C BC, BMP, PTT, PT, HS TROP #### [address] Mean Corpuscular HGB Conc 34.8 g/dL Normal 32.5-35.6 [facility] Comment on above: Performed By: #### C BC, BMP, PTT, PT, HS TROP #### [place] [address] [place] Monocytes (Bld) [#/Vol] 0.7 10*3/uL Normal 0.0-0.8 [facility] Comment on above: Performed By: #### C BC, BMP, PTT, PT, HS TROP #### [address] Monocytes/100 WBC (Bld) 19.04 % Normal 0.00-20.00 [facility] Comment on above: Performed By: #### C BC, BMP, PTT, PT, HS TROP #### [address] Monocytes/100 WBC (Bld) 8.7 % Normal . [facility] Comment on above: Performed By: #### C BC, BMP, PTT, PT, HS TROP #### [address] Neutrophils (Bld) [#/Vol] 5.5 10*3/uL Normal 1.8-7.7 [facility] Comment on above: Performed By: #### C BC, BMP, PTT, PT, HS TROP #### [place] [address] [place] Neutrophils/100 WBC (Bld) 65.2 % Normal . [facility] Comment on above: Performed By: #### C BC, BMP, PTT, PT, HS TROP #### [place] [address] [place] NRBC% 0.2 /100{WBC} Normal 0-0.5 [facility] Comment on above: Performed By: #### C BC, BMP, PTT, PT, HS TROP #### [address] [place] [address] [place] Platelet mean volume (Bld) [Entitic vol] 8.8 fL Normal 6.6-10.1 [facility] Comment on above: Performed By: #### C BC, BMP, PTT, PT, HS TROP #### [facility] [address] Platelets (Bld) [#/Vol] 230 10*3/uL Normal 150-450 [facility] Comment on above: Performed By: #### C BC, BMP, PTT, PT, HS TROP #### [facility] [address] [place] [address] [place] RBC (Bld) [#/Vol] 5.22 10*6/uL Normal 3.90-5.60 [facility] Comment on above: Performed By: #### C BC, BMP, PTT, PT, HS TROP #### [facility] [address] WBC (Bld) [#/Vol] 8.5 10*3/uL Normal 4.1-10.5 [facility] Comment on above: Performed By: #### C BC, BMP, PTT, PT, HS TROP #### [facility] [address] ECG 12 lead ECGon 02-27-2024 ECG 12 lead ECG [facility] Main [place] [address] [place] [address] Electrocardiograph Report Signed Patient: Lawson Lopez MR#: [id number] 168 : 1980 Acct:[id number] Age/Sex: 44 / M ADM Date: 02/27/24 Loc: ER Room: Type: [facility] ER Attending Dr: Ordering Provider: Med [...] fascicular block Confirmed by Med Koenig DO ([id number]) on 02/27/2024 3:20:31 PM Referred By: Electronically Signed By: Med Koenig DO Transcribed By: MUS Signed By Med Koenig DO 1520 Normal [facility] Partial Thromboplastin Timeo n 02-27-2024 aPTT Coag (Bld) [Time] 29.9 s Normal 25.1-36.5 [facility] Comment on above: Result Comment: A he matocrit value greater than 55% may lead to inaccurate results in coagulation testing. Patients having hematocrit values >55% require a special collection tube for coagulation studies. Please contact the laboratory at [phone] for redraw instructions. PERFORMED BY: [place] [id number] PATHOLOGIST BISCUIT PACKER FRANK ARAUJO M.D. Performed By: #### C BC, BMP, PTT, PT, HS TROP #### [address] [address] [facility] Prothrombin Time INRon 02-26 INR Coag (PPP) [Relative time] 0.9 {INR} Normal [facility] Comment on above: Result Comment: INR [...] BC, BMP, PTT, PT, HS TROP #### [facility] [address] [place] [id number] [facility] PT Coag (PPP) [Time] 10.8 s Normal 9.0-12.9 [facility] Comment on above: Result Comment: A he matocrit value greater than 55% may lead to inaccurate results in coagulation testing. Patients having hematocrit values >55% require a special collection tube for coagulation studies. Please contact the laboratory at [phone] for redraw instructions. Performed By: #### C BC, BMP, PTT, PT, HS TROP #### [address] Troponin I High Sensitivityo n 02-27-2024 Troponin I High Sensitivity 12.7 pg/mL Normal 0.0-20.0 [facility] Comment on above: Result Comment: PERF ORMED BY: [place] [address] PATHOLOGIST BISCUIT PACKER FRANK ARAUJO M.D. Performed By: #### C BC, BMP, PTT, PT, HS TROP #### [address] Urinalysison 02-27-2024 Appearance (U) Clear Normal Clear [facility] Comment on above: Order Comment: Name Collection Type:: Clean-Voided Midstream Performed By: #### U A #### [address] Bilirubin,Urine Negative Normal Negative [facility] Comment on above: Order Comment: Name Collection Type:: Clean-Voided Midstream Performed By: #### U A #### [address] Color (U) Light-Yellow Normal Yellow [facility] Comment on above: Order Comment: Name Collection Type:: Clean-Voided Midstream Performed By: #### U A #### [address] Glucose Ql (U) Normal Normal Normal [facility] Comment on above: Order Comment: Name Collection Type:: Clean-Voided Midstream Performed By: #### U A #### [address] Ketones Ql (U) Negative Normal Negative [facility] Comment on above: Order Comment: Name Collection Type:: Clean-Voided Midstream Performed By: #### U A #### [address] Leukocyte esterase Test strip Ql (U) Negative Normal Negative [facility] Comment on above: Order Comment: Name Collection Type:: Clean-Voided Midstream Performed By: #### U A #### [place] [address] [place] Nitrite,Urine Negative Normal Negative [facility] Comment on above: Order Comment: Name Collection Type:: Clean-Voided Midstream Performed By: #### U A #### [address] Occult Blood,Urine Negative Normal Negative [facility] Comment on above: Order Comment: Name Collection Type:: Clean-Voided Midstream Result Comment: PERF ORMED BY: [place] [address] PATHOLOGIST BISCUIT PACKER FRANK ARAUJO M.D. Performed By: #### U A #### [place] [address] [place] pH (U) 5.5 [pH] Normal 5.0-9.0 [facility] Comment on above: Order Comment: Name Collection Type:: Clean-Voided Midstream Performed By: #### U A #### [place] [address] [place] Protein,Urine Negative Normal Negative [facility] Comment on above: Order Comment: Name Collection Type:: Clean-Voided Midstream Performed By: #### U A #### [place] [address] [place] Specificy [place],Urine 1.033 High 1.001-1.030 [facility] Comment on above: Order Comment: Name Collection Type:: Clean-Voided Midstream Performed By: #### U A #### [place] [address] [place] Urobilinogen,Urine Normal Normal Normal [facility] Comment on above: Order Comment: Name Collection Type:: Clean-Voided Midstream Performed By: #### U A #### [address] XR chest 1V portableon 02-26 XR chest 1V portable [facility] Main [address] [address] XRay Report Signed Patient: Lawson Lopez MR#: [id number] 168 : 1980 Acct:[id number] Age/Sex: 44 / M ADM Date: 02/27/24 [...] Anguiano Jr., D.ODomitila02/27/2024 8:28 AM Dictation Location: [place] [address] Transcribed By: [facility] 02/27/24827 Dictated By: Wayne Anguiano Jr, DO 02/27/24 0828 Signed By: 02/27/24 0828 Normal [facility] XR foot RT min 3V*on 024 XR foot RT min 3V* [facility] Main [address] [address] XRay Report Signed Patient: Lawson Lopez MR#: [id number] 168 : 1980 Acct:[id number] Age/Sex: 44 / M ADM Date: 02/15/24 Loc: ER Room: Type: REG ER Attending Dr: Copies to: GRISELDA Serrato [...] Tejinder Alcantara M.D.02/15/2024 12:47 PM Dictation Location: [place] [address] Transcribed By: [facility] 02/15/241246 Dictated By: Tejinder Alcantara DO 02/15/24 1245 Signed By: 02/15/24 1247 Normal [facility] CBC with Diffon 07-04-2023 Abs. Basophil 0.06 k/uL Normal 0.00-0.20 [facility] Comment on above: Performed By: #### C DP LIP, CP #### [address] [place], [place] [id number] Groundman/Lineman: Alex Amador MD Abs.Imm.Granulocyte 0.03 k/uL Normal 0.00-0.30 [facility] Comment on above: Performed By: #### C LINH LIP, CP #### [address] [place] [address] Groundman/Lineman: Alex Amador MD Abs.Neutrophil (Seg) 7.00 k/uL Normal 1.50-8.10 [facility] Comment on above: Performed By: #### C RAMÓN MELTON, CP #### [address] [place] [address] Groundman/Lineman: Alex Amador MD Basophils/100 WBC (Bld) 1 % Normal 0-2 [facility] Comment on above: Performed By: #### C DP LIP, CP #### [facility] [address] [place] [address] Groundman/Lineman: Alex Amador MD Eosinophils (Bld) [#/Vol] 0.17 10*3/uL Normal 0.00-0.44 [facility] Comment on above: Performed By: #### C DP LIP, CP #### [facility] [address] [place], [place] [address] Groundman/Lineman: Alex Amador MD Eosinophils/100 WBC (Bld) 2 % Normal 1-4 [facility] Comment on above: Performed By: #### C DP LIP, CP #### [address] [place], [place] [address] Groundman/Lineman: Alex Amador MD Erythrocyte distribution width (RBC) [Ratio] 12.4 % Normal 11.8-14.4 [facility] Comment on above: Performed By: #### C LINH LIP, CP #### [address] [place], [place] [address] Groundman/Lineman: Alex Amador MD Hematocrit (Bld) [Volume fraction] 44.6 % Normal 40.7-50.3 [facility] Comment on above: Performed By: #### C LINH LIP, CP #### [address] [place], [facility] Groundman/Lineman: Alex Amador MD Hemoglobin (Bld) [Mass/Vol] 15.5 g/dL Normal 13.0-17.0 [facility] Comment on above: Performed By: #### C RAMÓN MELTON, CP #### [address] [place], [place] [address] Groundman/Lineman: Alex Amador MD Immature granulocytes/100 WBC (Bld) 0 % Normal 0 [facility] Comment on above: Performed By: #### C LINH LIP, CP #### [address] [place], [place] [address] Groundman/Lineman: Alex Amador MD Lymphocytes (Bld) [#/Vol] 1.59 10*3/uL Normal 1.10-3.70 [facility] Comment on above: Performed By: #### C LINH LIP, CP #### [address] [place], [facility] Groundman/Lineman: Alex Amador MD Lymphocytes/100 WBC (Bld) 17 % Low 24-43 [facility] Comment on above: Performed By: #### C DP, LIP, CP #### [facility] [address] [place] [address] Dr[place], [place] [address] Groundman/Lineman: Alex Amador MD MCH (RBC) [Entitic mass] 30.3 pg Normal 25.2-33.5 [facility] Comment on above: Performed By: #### C DP, LIP, CP #### [address] [place], [place] [address] Groundman/Lineman: Alex Amador MD MCHC (RBC) [Mass/Vol] 34.8 g/dL Normal 28.4-34.8 [facility] Comment on above: Performed By: #### C DP LIP, CP #### [address] [place] [address] Groundman/Lineman: Alex Amador MD MCV (RBC) [Entitic vol] 87.1 fL Normal 82.6-102.9 [facility] Comment on above: Performed By: #### C DP LIP, CP #### [address] [place], [place] [address] Groundman/Lineman: Alex Amador MD Monocytes (Bld) [#/Vol] 0.78 10*3/uL Normal 0.10-1.20 [facility] Comment on above: Performed By: #### C DP LIP, CP #### [address] [place], [place] [address] Groundman/Lineman: Alex Amador MD Monocytes/100 WBC (Bld) 8 % Normal 3-12 [facility] Comment on above: Performed By: #### C DP, LIP, CP #### [address] [place] [id number] Groundman/Lineman: Alex Amador MD Neutrophil (Seg) 72 % High 36-65 [facility] Comment on above: Performed By: #### C DP, LIP, CP #### [facility] [address] [place], [place] [id number] Groundman/Lineman: Alex Amador MD NRBC Automated 0.0 per 100 WBC Normal 0.0 [facility] Comment on above: Performed By: #### C DP LIP, CP #### [facility] [address] [address] [place], [facility] Groundman/Lineman: Alex Amador MD Platelet mean volume (Bld) [Entitic vol] 10.4 fL Normal 8.1-13.5 [facility] Comment on above: Performed By: #### C RAMÓN MELTON, CP #### [address] [place], [facility] Groundman/Lineman: Alex Amador MD Platelets (Bld) [#/Vol] 239 10*3/uL Normal 138-453 [facility] Comment on above: Performed By: #### C RAMÓN MELTON, CP #### [address] [place], [facility] Groundman/Lineman: Alex Amador MD RBC (Bld) [#/Vol] 5.12 10*6/uL Normal 4.21-5.77 [facility] Comment on above: Performed By: #### C RAMÓN MELTON, CP #### [address] [place], [facility] Groundman/Lineman: Alex Amador MD WBC (Bld) [#/Vol] 9.6 10*3/uL Normal 3.5-11.3 [facility] Comment on above: Performed By: #### C RAMÓN MELTON, CP #### [address] [place] [address] Groundman/Lineman: Alex Amador MD Comp Metabolic Profon 2023 Albumin [Mass/Vol] 4.4 g/dL Normal 3.5-5.2 [facility] Comment on above: Performed By: #### C DP LIP, CP #### [facility] [address] [place] [address] Groundman/Lineman: Alex Amador MD Albumin/Glob Ratio 1.2 Normal 1.0-2.5 [facility] Comment on above: Performed By: #### C DP, LIP, CP #### [facility] [address] [place], [place] [id number] Groundman/Lineman: Alex Amador MD Alkaline Phos 103 U/L Normal 40-129 [facility] Comment on above: Performed By: #### C DP, LIP, CP #### [facility] [address] [place] [address] Groundman/Lineman: Alex Amador MD ALT [Catalytic activity/Vol] 30 U/L Normal 5-41 [facility] Comment on above: Performed By: #### C DP, LIP, CP #### [facility] [address] [place] [address] Groundman/Lineman: Alex Amador MD Anion gap [Moles/Vol] 10 mmol/L Normal 9-17 [facility] Comment on above: Performed By: #### C DP, LIP, CP #### [facility] [address] [place] [address] Groundman/Lineman: Alex Amador MD AST [Catalytic activity/Vol] 21 U/L Normal <40 [facility] Comment on above: Performed By: #### C DP, LIP, CP #### [facility] [address] [place] [address] Groundman/Lineman: Alex Amador MD Bilirubin [Mass/Vol] 0.7 mg/dL Normal 0.3-1.2 [facility] Comment on above: Performed By: #### C DP, LIP, CP #### [facility] [address] [place], [place] [id number] Groundman/Lineman: Alex Amador MD BUN/CRE Ratio 13 Normal 9-20 [facility] Comment on above: Performed By: #### C RAMÓN MELTON, CP #### [facility] [address] [place], [place] [id number] Groundman/Lineman: Alex Amador MD Calcium [Mass/Vol] 9.1 mg/dL Normal 8.6-10.4 [facility] Comment on above: Performed By: #### C LINH LIP, CP #### [facility] [address] [place], [place] [id number] Groundman/Lineman: Alex Amador MD Chloride [Moles/Vol] 102 mmol/L Normal 98-107 [facility] Comment on above: Performed By: #### C LINH LIP, CP #### [facility] [address] [place] [address] Dr. [place], [place] [id number] Groundman/Lineman: Alex Amador MD CO2 [Moles/Vol] 27 mmol/L Normal 20-31 [facility] Comment on above: Performed By: #### C RAMÓN MELTON, CP #### [facility] [address] [place] [address] Dr. [place], [place] [id number] Groundman/Lineman: Alex Amador MD Creatinine [Mass/Vol] 0.8 mg/dL Normal 0.7-1.2 [facility] Comment on above: Performed By: #### C LINH LIP, CP #### [facility] [address] [place], [place] [id number] Groundman/Lineman: Alex Amador MD GFR/1.73 sq M.predicted among non-blacks MDRD (S/P/Bld) [Vol rate/Area] mL/min/{1.73_m2} Normal >60 [facility] [...] By: #### C RAMÓN MELTON, CP #### [facility] [address] [place], [place] [id number] Groundman/Lineman: Alex Amador MD Glucose [Mass/Vol] 97 mg/dL Normal 70-99 [facility] Comment on above: Performed By: #### C RMAÓN MELTON, CP #### [facility] [address] [place], [place] [id number] Groundman/Lineman: Alex Amador MD Potassium [Moles/Vol] 4.2 mmol/L Normal 3.7-5.3 [facility] Comment on above: Performed By: #### C RAMÓN MELTON, CP #### [facility] [address] [place], [place] [id number] Groundman/Lineman: Alex Amador MD Protein [Mass/Vol] 8.0 g/dL Normal 6.4-8.3 [facility] Comment on above: Performed By: #### C RAMÓN MELTON, CP #### [address] [place], [place] [id number] Groundman/Lineman: Alex Aamdor MD Sodium [Moles/Vol] 139 mmol/L Normal 135-144 [facility] Comment on above: Performed By: #### C RAMÓN MELTON, CP #### [facility] [address] [place], [place] [id number] Groundman/Lineman: Alex Amador MD Urea nitrogen [Mass/Vol] 10 mg/dL Normal 6-20 [facility] Comment on above: Performed By: #### C RAMÓN MELTON, CP #### [facility] [address] [place], [place] [id number] Groundman/Lineman: Alex Amador MD Lipaseon 07-04-2023 Lipase [Catalytic activity/Vol] 29 U/L Normal 13-60 [facility] Comment on above: Performed By: #### C DP, LIP, CP #### [facility] [address] [place] [address] Groundman/Lineman: Alex Amador MD Activated partial thrombopla stin time (aPTT) in platelet poor plasma by coagulation aOrdered By: Socorro Osullivan on 10-11-2022 aPTT Coag (PPP) [Time] 27.7 s 25.1-36.5 [facility] Basophils Auto (Bld) [#/Vol] Ordered By: Socorro Osullivan on 10-11-2022 Basophils (Bld) [#/Vol] 0.1 10*3/uL 0.0-0.2 [facility] Basophils/100 WBC Auto (Bld) Ordered By: Socorro Osullivan on 10-11-2022 Basophils/100 WBC (Bld) 0.9 % . [facility] Calcium [Mass/volume] in Ser um or PlasmaOrdered By: Socorro Osullivan on 10-11-2022 Calcium [Mass/Vol] 9.5 mg/dL 8.6-10.3 [facility] Carbon dioxide, total [Moles /volume] in Serum or PlasmaOrdered By: Socorro Osullivan on 10-11-2022 CO2 [Moles/Vol] 29.1 mmol/L 21.0-31.0 [facility] Chloride [Moles/volume] in S josselin or PlasmaOrdered By: Socorro Osullivan on 10-11-2022 Chloride [Moles/Vol] 102 mmol/L 98-107 [facility] Creatine kinase [Enzymatic a ctivity/volume] in Serum or PlasmaOrdered By: Socorro Osullivan on 10-11-2022 CK [Catalytic activity/Vol] 87 U/L 30-223 [facility] Creatinine [Mass/volume] in Serum or PlasmaOrdered By: Socorro Osullivan on 10-11-2022 Creatinine [Mass/Vol] 0.79 mg/dL 0.70-1.30 [facility] Eosinophils Auto (Bld) [#/Vo l]Ordered By: Socorro Osullivan on 10-11-2022 Eosinophils (Bld) [#/Vol] 0.2 10*3/uL 0.0-0.45 [facility] Eosinophils/100 WBC Auto (Bl d)Ordered By: Socorro Osullivan on 10-11-2022 Eosinophils/100 WBC (Bld) 2.5 % . [facility] Erythrocyte distribution wid th Auto (RBC) [Ratio]Ordered By: Socorro Osullivan on 10-11-2022 Erythrocyte distribution width (RBC) [Ratio] 13.3 % 12.0-14.8 [facility] Glucose [Mass/volume] in Ser um or PlasmaOrdered By: Socorro Osullivan on 10-11-2022 Glucose [Mass/Vol] 90 mg/dL 70-100 [facility] Comment on above: ADA recommended refe rence rangeRandom Glucose Reference Range is dependent on time and content of last meal. Glucose of more than 200 mg/dL in a nonstressed, ambulatory subject supports the diagnosis of Diabetes Mellitus. Hematocrit Auto (Bld) [Volum e fraction]Ordered By: Socorro Osullivan on 10-11-2022 Hematocrit (Bld) [Volume fraction] 40.4 % 38.8-50.0 [facility] Hemoglobin [Mass/volume] in BloodOrdered By: Socorro Osullivan on 10-11-2022 Hemoglobin (Bld) [Mass/Vol] 14.2 g/dL 13.0-17.0 [facility] Laboratory - CoagulationOrde red By: Socorro Osullivan on 10-11-2022 PT Coag (PPP) [Time] 12.0 s 9.0-12.9 [facility] Leukocytes [#/volume] correc giselle for nucleated erythrocytes in Blood by Automated counOrdered By: Socorro Osullivan on 10-11-2022 WBC corrected for nucl RBC Auto (Bld) [#/Vol] 9.5 10*3/uL 4.1-10.5 [facility] Lymphocytes Auto (Bld) [#/Vo l]Ordered By: Socorro Osullivan on 10-11-2022 Lymphocytes (Bld) [#/Vol] 1.8 10*3/uL 1.00-4.8 [facility] Lymphocytes/100 WBC Auto (Bl d)Ordered By: Socorro Osullivan on 10-11-2022 Lymphocytes/100 WBC (Bld) 18.6 % . [facility] MCH Auto (RBC) [Entitic mass ]Ordered By: Socorro Osullivan on 10-11-2022 MCH (RBC) [Entitic mass] 30.4 pg 27.5-35.2 [facility] MCHC Auto (RBC) [Mass/Vol]Or dered By: Socorro Osullivan on 10-11-2022 MCHC (RBC) [Mass/Vol] 35.1 g/dL 32.5-35.6 [facility] MCV Auto (RBC) [Entitic vol] Ordered By: Socorro Osullivan on 10-11-2022 MCV (RBC) [Entitic vol] 86.6 fL 83.5-101 [facility] Monocyte distribution width [Entitic volume] in Blood by AutomatedOrdered By: Socorro Osullivan on 10-11-2022 Monocyte distribution width Auto (Bld) [Entitic vol] 18.08 % 0.00-20.00 [facility] Monocytes Auto (Bld) [#/Vol] Ordered By: Socorro Osullivan on 10-11-2022 Monocytes (Bld) [#/Vol] 0.7 10*3/uL 0.0-0.8 [facility] Monocytes/100 WBC Auto (Bld) Ordered By: Socorro Osullivan on 10-11-2022 Monocytes/100 WBC (Bld) 7.2 % . [facility] Natriuretic peptide B [Mass/ Vol]Ordered By: Socorro Osullivan on 10-11-2022 Natriuretic peptide B (Bld) [Mass/Vol] 21.0 pg/mL 5-100 [facility] Neutrophils Auto (Bld) [#/Vo l]Ordered By: Socorro Osullivan on 10-11-2022 Neutrophils (Bld) [#/Vol] 6.7 10*3/uL 1.8-7.7 [facility] Neutrophils/100 WBC Auto (Bl d)Ordered By: Socorro Osullivan on 10-11-2022 Neutrophils/100 WBC (Bld) 70.8 % . [facility] No Panel InformationOrdered By: Socorro Osullivan on 10-11-2022 Estimated GFR (CKD-EPI) > 60.0 mL/Min [facility] Creatinine Clearance (Chem 158.41 [facility] Nucleated erythrocytes [Pres ence] in Blood by Automated countOrdered By: Socorro Osullivan on 10-11-2022 Nucleated RBC Auto Ql (Bld) 0.2 /100{WBC} 0-0.5 [facility] Platelet mean volume Auto (B ld) [Entitic vol]Ordered By: Socorro Osullivan on 10-11-2022 Platelet mean volume (Bld) [Entitic vol] 8.0 fL 6.6-10.1 [facility] Platelet poor plasma interna tional normalized ratio (INR) by coagulation assay (relatOrdered By: Socorro Osullivan on 10-11-2022 INR Coag (PPP) [Relative time] 1.0 {INR} [facility] Comment on above: INR Therapeutic Rang [...] 10-11-2022 Platelets (Bld) [#/Vol] 218 10*3/uL 150-450 [facility] Potassium [Moles/volume] in Serum or PlasmaOrdered By: Socorro Osullivan on 10-11-2022 Potassium [Moles/Vol] 3.8 mmol/L 3.5-5.1 [facility] RBC Auto (Bld) [#/Vol]Ordere d By: Socorro Osullivan on 10-11-2022 RBC (Bld) [#/Vol] 4.67 10*6/uL 3.90-5.60 [facility] Serum or plasma anion gap de terminationOrdered By: Socorro Osullivan on 10-11-2022 Anion gap [Moles/Vol] 10.7 mmol/L 6.0-15.0 [facility] Sodium [Moles/volume] in Ser um or PlasmaOrdered By: Socorro Osullivan on 10-11-2022 Sodium [Moles/Vol] 138 mmol/L 136-145 [facility] Troponin I.cardiac [Mass/vol ume] in Serum or Plasma by Detection limit <= 0.01 ng/Ordered By: Socorro Osullivan on 10-11-2022 Troponin I.cardiac DL <= 0.01 ng/mL [Mass/Vol] 6.3 pg/mL 0.0-20.0 [facility] Urea nitrogen [Mass/volume] in Serum or PlasmaOrdered By: Socorro Osullivan on 10-11-2022 Urea nitrogen [Mass/Vol] 11 mg/dL 7-25 [facility] WBC Auto (Bld) [#/Vol]Ordere d By: Socorro Osullivan on 10-11-2022 WBC (Bld) [#/Vol] 9.5 10*3/uL 4.1-10.5 [facility] BNPon 05-16-2022 Natriuretic peptide B (Bld) [Mass/Vol] 51.0 pg/mL Normal <=450.0 [facility] Comment on above: Performed By: #### B LEARNING COORDINATOR, CMADM, BMP #### [facility] [address] [address] [address] Divina Patino CARDIAC DAT 3-6on 3 CK [Catalytic activity/Vol] 43 U/L Normal 39-308 [facility] Comment on above: Performed By: #### L ACT #### [facility] [address] [place] [address] Dr. Divina Patino HSTROP 10.6 pg/mL Normal 4.0-76.1 [facility] Comment on above: Result Comment: CUT- OFF POINTS HAVE BEEN ESTABLISHED BASED ON THE FOURTH UNIVERSAL DEFINITIONS OF MYOCARDIAL INFARCTION. THE UPPER REFERENCE LIMIT (URL) OF TROPONIN, DEFINED THE 99TH PERCENTILE OF cTnI DISTRIBUTION IN A REFERENCE POPULATION, HAS BEEN CONFIRMED THE DECISION THRESHOLD FOR [place] DIAGNOSIS. Performed By: #### L ACT #### [facility] [address] [address] [address] Divina Patino CARDIAC DAT ADMITon 023 CK [Catalytic activity/Vol] 44 U/L Normal 39-308 [facility] Comment on above: Performed By: #### B LEARNING COORDINATOR, CMADM, BMP #### [facility] [address] [address] [address] Divina Pation CK.MB [Mass/Vol] ng/mL Normal <=3.60 [facility] Comment on above: Performed By: #### B LEARNING COORDINATOR, CMADM, BMP #### [facility] [address] [place] [address] Dr. Divina Patino HSTROP 9.9 pg/mL Normal 4.0-76.1 [facility] Comment on above: Result Comment: CUT- OFF POINTS HAVE BEEN ESTABLISHED BASED ON THE FOURTH UNIVERSAL DEFINITIONS OF MYOCARDIAL INFARCTION. THE UPPER REFERENCE LIMIT (URL) OF TROPONIN, DEFINED THE 99TH PERCENTILE OF cTnI DISTRIBUTION IN A REFERENCE POPULATION, HAS BEEN CONFIRMED THE DECISION THRESHOLD FOR [place] DIAGNOSIS. Performed By: #### B LEARNING COORDINATOR, CMADM, BMP #### [facility] [address] [place] [address] Dr. Divina Patino CIELO 21 ng/mL Normal 16-96 [facility] Comment on above: Performed By: #### B LEARNING COORDINATOR, CMADM, BMP #### [facility] [address] [place] [address] Dr. Divina Patino CBC AUTO DIFFon 05-16-2022 BASO # 0.1 103/ul Normal 0.0-0.1 [facility] Comment on above: Performed By: #### C BC #### [facility] [address] [place] [address] Dr. Divina Patino Basophils/100 WBC (Bld) 0.6 % Normal 0.2-2.0 [facility] Comment on above: Performed By: #### C BC #### [facility] [address] [place] [address] Dr. Divina Patino EO # 0.3 103/ul Normal 0.0-0.7 [facility] Comment on above: Performed By: #### C BC #### [facility] [address] [place] [address] Dr. Divina Patino Eosinophils/100 WBC (Bld) 2.3 % Normal 0.9-7.0 [facility] Comment on above: Performed By: #### C BC #### [facility] [address] [place] [address] Dr. Divina Patino Erythrocyte distribution width (RBC) [Ratio] 12.3 % Normal 11.0-15.0 [facility] Comment on above: Performed By: #### C BC #### [facility] [address] [place] [address] Dr. Divina Patino Hematocrit (Bld) [Volume fraction] 41.6 % Critically low 42.0-54.0 [facility] Comment on above: Performed By: #### C BC #### [facility] [address] [place] [address] Dr. Divina Patino Hemoglobin (Bld) [Mass/Vol] 14.6 g/dL Normal 14.0-18.0 [facility] Comment on above: Performed By: #### C BC #### [facility] [address] [place] [address] Dr. Divina Patino IG # 0.12 10e3/ul Critically high 0.00-0.03 [facility] Comment on above: Performed By: #### C BC #### [facility] [address] [place] [address] Dr. Divina Patino IG % 1.0 % Critically high 0.0-0.5 [facility] Comment on above: Performed By: #### C BC #### [facility] [address] [place] [address] Dr. Divina Patino LYMPH # 2.7 103/ul Normal 1.2-3.8 [facility] Comment on above: Performed By: #### C BC #### [facility] [address] [place] [address] Dr. Divina Patino Lymphocytes/100 WBC (Bld) 23.0 % Normal 20.5-60.0 [facility] Comment on above: Performed By: #### C BC #### [facility] [address] [place] [address] Dr. Divina Patino MANUAL DIFF REQ NO Normal [facility] Comment on above: Performed By: #### C BC #### [facility] [address] [place] [address] Dr. Divina Patino MCH (RBC) [Entitic mass] 30.0 pg Normal 25.9-34.0 [facility] Comment on above: Performed By: #### C BC #### [facility] [address] [address] [address] Divina Patino MCHC (RBC) [Mass/Vol] 35.1 g/dL Normal 29.9-35.2 [facility] Comment on above: Performed By: #### C BC #### [facility] [address] [address] [address] Divina Patino MCV (RBC) [Entitic vol] 85.6 fL Normal 80.0-94.0 [facility] Comment on above: Performed By: #### C BC #### [facility] [address] [address] [address] Divina Patino MONO # 1.0 103/ul Critically high 0.3-0.8 [facility] Comment on above: Performed By: #### C BC #### [facility] [address] [address] [address] Divina Patino Monocytes/100 WBC (Bld) 8.6 % Normal 1.7-12.0 [facility] Comment on above: Performed By: #### C BC #### [facility] [address] [place] [address] Dr. Divina Patino NEUT # 7.4 103/ul Critically high 1.4-6.5 [facility] Comment on above: Performed By: #### C BC #### [facility] [address] [address] [address] Divina Patino Neutrophils/100 WBC (Bld) 64.5 % Normal 43.0-75.0 [facility] Comment on above: Performed By: #### C BC #### [facility] [address] [address] [address] Divina Patino Platelet mean volume (Bld) [Entitic vol] 9.9 fL Normal 9.5-13.5 [facility] Comment on above: Performed By: #### C BC #### [facility] [address] [address] [address] Divina Patino PLT 231 103/ul Normal 150-450 [facility] Comment on above: Performed By: #### C BC #### [facility] [address] [place] [address] Dr. Divina Patino RBC 4.86 106/ul Normal 4.70-6.10 [facility] Comment on above: Performed By: #### C BC #### [facility] [address] [place] [address] Dr. Divina Patino WBC 11.5 103/ul Critically high 4.0-11.0 [facility] Comment on above: Performed By: #### C BC #### [facility] [address] [place] [address] Dr. Divina Patino D-DIMERon 05-16-2022 D-DIMER 0.19 mg/L FEU Normal <=0.59 [facility] Comment on above: Performed By: #### D DIM #### [facility] [address] [place] [address] Dr. Divina Patino D-DIMER COMMENTS SEE BELOW Normal [facility] Comment on above: Result Comment: Incr [...] hospitalization. Performed By: #### D DIM #### [facility] [address] [place] [address] Dr. Divina Patino LACTATE/LACTIC ACIDon 2022 Lactate [Moles/Vol] 1.5 mmol/L Normal 0.4-1.9 [facility] Comment on above: Performed By: #### L ACT #### [facility] [address] [place] [address] Dr. Divina Patino PROF CHEM 8 (BAS METB)on Anion gap [Moles/Vol] 13.7 mmol/L Normal [facility] Comment on above: Performed By: #### B LEARNING COORDINATOR, CMADM, BMP #### [facility] [address] [address] [address] Divina Patino Calcium [Mass/Vol] 8.7 mg/dL Normal 8.5-10.1 [facility] Comment on above: Performed By: #### B LEARNING COORDINATOR, CMADM, BMP #### [facility] [address] [place] [address] Dr. Divina Patino Chloride [Moles/Vol] 102 mmol/L Normal 98-107 [facility] Comment on above: Performed By: #### B LEARNING COORDINATOR, CMADM, BMP #### [facility] [address] [place] [address] Dr. Divina Patino CO2 [Moles/Vol] 27.1 mmol/L Normal 21.0-32.0 [facility] Comment on above: Performed By: #### B LEARNING COORDINATOR, CMADM, BMP #### [facility] [address] [place] [address] Dr. Divina Patino Creatinine [Mass/Vol] 0.85 mg/dL Normal 0.70-1.30 [facility] Comment on above: Performed By: #### B LEARNING COORDINATOR, CMADM, BMP #### [facility] [address] [place] [address] Dr. Divina Patino EGFR-AF [place] >60 Normal >=60 [facility] Comment on above: Performed By: #### B LEARNING COORDINATOR, CMADM, BMP #### [facility] [address] [place] [address] Dr. Divina Patino EGFR-NON AF [place] >60 Normal >=60 [facility] Comment on above: Performed By: #### B LEARNING COORDINATOR, CMADM, BMP #### [facility] [address] [place] [address] Dr. Divina Patino Glucose [Mass/Vol] 114 mg/dL Critically high 74-106 [facility] Comment on above: Performed By: #### B LEARNING COORDINATOR, CMADM, BMP #### [facility] [address] [place] [address] Dr. Divina Patino Potassium [Moles/Vol] 3.8 mmol/L Normal 3.5-5.1 [facility] Comment on above: Performed By: #### B LEARNING COORDINATORESME, BMP #### [facility] [address] [place] [address] Dr. Divina Patino Sodium [Moles/Vol] 139 mmol/L Normal 136-145 [facility] Comment on above: Performed By: #### B LEARNING COORDINATORESME, BMP #### [facility] [address] [place] [address] Dr. Divina Patino Urea nitrogen [Mass/Vol] 15.0 mg/dL Normal 7.0-18.0 [facility] Comment on above: Performed By: #### B ESME ORTEGA, BMP #### [facility] [address] [place] [address] Dr. Divina Patino Urea nitrogen/Creatinine [Mass ratio] 17.6 mg/mg Normal [facility] Comment on above: Performed By: #### B ESME ORTEGA, BMP #### [facility] [address] [place] [address] Dr. Divina Patino XR CHEST 1 Von [...] AMAN PURCELL Date: 2022-05-15 23:20 Normal [facility] CARDIAC DAT ADMITon 023 CK [Catalytic activity/Vol] 78 U/L Normal 39-308 [facility] Comment on above: Performed By: #### L ACT #### [facility] [address] [place] [address] Dr. Divina Patino CK.MB [Mass/Vol] 1.08 ng/mL Normal <=3.60 [facility] Comment on above: Performed By: #### L ACT #### [facility] [address] [place] [address] Dr. Divina Patino HSTROP 12.2 pg/mL Normal 4.0-76.1 [facility] Comment on above: Result Comment: CUT- OFF POINTS HAVE BEEN ESTABLISHED BASED ON THE FOURTH UNIVERSAL DEFINITIONS OF MYOCARDIAL INFARCTION. THE UPPER REFERENCE LIMIT (URL) OF TROPONIN, DEFINED THE 99TH PERCENTILE OF cTnI DISTRIBUTION IN A REFERENCE POPULATION, HAS BEEN CONFIRMED THE DECISION THRESHOLD FOR [place] DIAGNOSIS. Performed By: #### L ACT #### [facility] [address] [place] [address] Dr. Divina Patino CIELO 24 ng/mL Normal 16-96 [facility] [facility] Comment on above: Performed By: #### L ACT #### [facility] [address] [place] [address] Dr. Divina Patino CBC AUTO DIFFon 05-11-2022 BASO # 0.1 103/ul Normal 0.0-0.1 [facility] Comment on above: Performed By: #### L ACT #### [facility] [address] [place] [address] Dr. Divina Patino Basophils/100 WBC (Bld) 0.6 % Normal 0.2-2.0 [facility] Comment on above: Performed By: #### L ACT #### [facility] [address] [place] [address] Dr. Divina Patino EO # 0.2 103/ul Normal 0.0-0.7 [facility] Comment on above: Performed By: #### L ACT #### [facility] [address] [place] [address] Dr. Divina Patino Eosinophils/100 WBC (Bld) 2.0 % Normal 0.9-7.0 [facility] Comment on above: Performed By: #### L ACT #### [facility] [address] [place] [address] Dr. Divina Patino Erythrocyte distribution width (RBC) [Ratio] 12.4 % Normal 11.0-15.0 [facility] Comment on above: Performed By: #### L ACT #### [facility] [address] [place] [address] Dr. Divina Patino Hematocrit (Bld) [Volume fraction] 43.8 % Normal 42.0-54.0 [facility] Comment on above: Performed By: #### L ACT #### [facility] [address] [place] [address] Dr. Divina Patino Hemoglobin (Bld) [Mass/Vol] 15.3 g/dL Normal 14.0-18.0 [facility] Comment on above: Performed By: #### L ACT #### [facility] [address] [place] [address] Dr. Divina Patino IG # 0.06 10e3/ul Critically high 0.00-0.03 [facility] Comment on above: Performed By: #### L ACT #### [facility] [address] [place] [address] Dr. Divina Patino IG % 0.6 % Critically high 0.0-0.5 [facility] Comment on above: Performed By: #### L ACT #### [facility] [address] [place] [address] Dr. Divina Patino LYMPH # 2.0 103/ul Normal 1.2-3.8 [facility] Comment on above: Performed By: #### L ACT #### [facility] [address] [place] [address] Dr. Divina Patino Lymphocytes/100 WBC (Bld) 19.9 % Critically low 20.5-60.0 [facility] Comment on above: Performed By: #### L ACT #### [facility] [address] [place] [address] Dr. Divina Patino MANUAL DIFF REQ NO Normal [facility] Comment on above: Performed By: #### L ACT #### [facility] [address] [place] [address] Dr. Divina Patino MCH (RBC) [Entitic mass] 30.2 pg Normal 25.9-34.0 [facility] Comment on above: Performed By: #### L ACT #### [facility] [address] [place] [address] Dr. Divina Patino MCHC (RBC) [Mass/Vol] 34.9 g/dL Normal 29.9-35.2 [facility] Comment on above: Performed By: #### L ACT #### [facility] [address] [address] [address] Divina Patino MCV (RBC) [Entitic vol] 86.6 fL Normal 80.0-94.0 [facility] Comment on above: Performed By: #### L ACT #### [facility] [address] [address] [address] Divina Patino MONO # 0.8 103/ul Normal 0.3-0.8 [facility] Comment on above: Performed By: #### L ACT #### [facility] [address] [address] [address] Divina Patino Monocytes/100 WBC (Bld) 7.7 % Normal 1.7-12.0 [facility] Comment on above: Performed By: #### L ACT #### [facility] [address] [address] [address] Divina Patino NEUT # 7.1 103/ul Critically high 1.4-6.5 [facility] Comment on above: Performed By: #### L ACT #### [facility] [address] [address] [address] Divina Patino Neutrophils/100 WBC (Bld) 69.2 % Normal 43.0-75.0 [facility] Comment on above: Performed By: #### L ACT #### [facility] [address] [address] [address] Divina Patino Platelet mean volume (Bld) [Entitic vol] 10.3 fL Normal 9.5-13.5 [facility] Comment on above: Performed By: #### L ACT #### [facility] [address] [address] [address] Divina Patino PLT 238 103/ul Normal 150-450 [facility] Comment on above: Performed By: #### L ACT #### [facility] [address] [address] [address] Divina Patino RBC 5.06 106/ul Normal 4.70-6.10 [facility] Comment on above: Performed By: #### L ACT #### [facility] [address] [place], [place] [address] Dr. Divina Patino WBC 10.3 103/ul Normal 4.0-11.0 [facility] Comment on above: Performed By: #### L ACT #### [facility] [address] [place], [place] [address] Dr. Divina Patino CRPon 05-11-2022 CRP [Mass/Vol] mg/L Normal <=1.0 [facility] Comment on above: Performed By: #### L ACT #### [facility] [address] [place], [place] [address] HEAD WO CONon [...] JAMES JOHNSTON Date: 2022-05-11 19:47 Normal [facility] Covid-19 PCR (CVDTB)on SARS-CoV-2 (COVID-19) RNA JERRICA+probe Ql (Unsp spec) Not detected Normal NOT DETECTED [facility] Comment on above: Result Comment: [...] for this test is supported by the Residential Subcontractor of Health and Human Service's declaration that [...] used). Performed By: #### C VDTBH #### [facility] [address] [place] [address] Dr. Divina Patino INFLUENZA A AND B AGon 05-11 [facility] BEL[facility] Normal [facility] Comment on above: Result Comment: Nega tive for Flu A protein angiten. Infection due to Flu A cannot be ruled out. Flu A angiten in the sample may be below the detection limit of the test. Performed By: #### I NFLUAB #### [facility] [address] [place] [address] Dr. Divina Patino INFLUBNEG SEE BELOW Normal [facility] Comment on above: Result Comment: Nega tive for Flu B protein antigen. Infection due to Flu B cannot be ruled out. Flu B antigen in the sample may be below the detection limit of the test. Performed By: #### I NFLUAB #### [facility] [address] [place] [address] Dr. Divina Patino INFLUENZA A AG Negative Normal NEGATIVE SEE COMMENT [facility] Comment on above: Performed By: #### I NFLUAB #### [facility] [address] [place] [address] Dr. Divina Patino INFLUENZA B AG Negative Normal NEGATIVE SEE COMMENT [facility] Comment on above: Performed By: #### I NFLUAB #### [facility] [address] [place] [address] Dr. Divina Patino LACTATE/LACTIC ACIDon 2022 Lactate [Moles/Vol] 1.8 mmol/L Normal 0.4-1.9 [facility] Comment on above: Performed By: #### L ACT #### [facility] [address] [place] [address] Dr. Divina Patino MONOon 05-11-2022 Monocytes (Bld) [#/Vol] Negative Normal NEGATIVE [facility] Comment on above: Performed By: #### M LEANDRO #### [facility] [address] [address] [address] Divina Patino PROF CHEM 8 (BAS METB)on Anion gap [Moles/Vol] 12.8 mmol/L Normal [facility] Comment on above: Performed By: #### L ACT #### [facility] [address] [place] [address] Dr. Divina Patino Calcium [Mass/Vol] 9.1 mg/dL Normal 8.5-10.1 [facility] Comment on above: Performed By: #### L ACT #### [facility] [address] [place] [address] Dr. Divina Patino Chloride [Moles/Vol] 101 mmol/L Normal 98-107 [facility] Comment on above: Performed By: #### L ACT #### [facility] [address] [place] [address] Dr. Divina Patino CO2 [Moles/Vol] 26.9 mmol/L Normal 21.0-32.0 [facility] Comment on above: Performed By: #### L ACT #### [facility] [address] [place] [address] Dr. Divina Patino Creatinine [Mass/Vol] 0.90 mg/dL Normal 0.70-1.30 [facility] Comment on above: Performed By: #### L ACT #### [facility] [address] [place] [address] Dr. Divina Patino EGFR-AF [place] CITIZEN >60 Normal >=60 [facility] Comment on above: Performed By: #### L ACT #### [facility] [address] [place] [address] Dr. Divina Patino EGFR-NON AF [place] CITIZ[place] >60 Normal >=60 [facility] Comment on above: Performed By: #### L ACT #### [facility] [address] [place] [address] Dr. Divina Patino Glucose [Mass/Vol] 110 mg/dL Critically high 74-106 [facility] Comment on above: Performed By: #### L ACT #### [facility] [address] [address] [address] Divina Patino Potassium [Moles/Vol] 3.7 mmol/L Normal 3.5-5.1 [facility] Comment on above: Performed By: #### L ACT #### [facility] [address] [address] [address] Divina Patino Sodium [Moles/Vol] 137 mmol/L Normal 136-145 [facility] Comment on above: Performed By: #### L ACT #### [facility] [address] [address] [address] Divina Patino Urea nitrogen [Mass/Vol] 11.0 mg/dL Normal 7.0-18.0 [facility] Comment on above: Performed By: #### L ACT #### [facility] [address] [address] [address] Divina Patino Urea nitrogen/Creatinine [Mass ratio] 12.2 mg/mg Normal [facility] Comment on above: Performed By: #### L ACT #### [facility] [address] [address] [address] Div[facility] 16 mm/hr Critically high <=15 [facility] Comment on above: Performed By: #### L ACT #### [facility] [address] [address] [address] Divina Patino TSHon 05-11-2022 TSH 3.949 uIU/mL Critically high 0.358-3.740 [facility] Comment on above: Performed By: #### L ACT #### [facility] [address] [address] [address] Divina Patino COVID-19 SOFIAOrdered By: Andres Elizondo on 12-02-2021 SARS-CoV+SARS-CoV-2 (COVID-19) Ag IA.rapid Ql (Resp) Negative Negative [facility] Comment on above: This is a duplicate Judith SARS Antigen (ANURAG) result to be used for statistical tracking purpose only. No Panel InformationOrdered By: Elian Elizondo on 12-02-2021 SARS Antigen (LFIA) [facility] CBC with Auto Differentialon 06-08-2021 Absolute Eos # 0.11 [facility] th Absolute Immature Granulocyte 0.06 [facility] Absolute Lymph # 1.65 [facility] He alth Absolute [place] [facility]03 [facility] Basophils (Bld) [#/Vol] 0.07 10*3/uL [facility] Basophils/100 WBC (Bld) 1 % 0 - 2 % [facility] Eosinophils/100 WBC (Bld) 1 % 1 - 4 % [facility] Hematocrit (Bld) [Volume fraction] 47.5 % 40.7 - 50.3 % [facility] Hemoglobin.gastroint estinal spec 1 Ql (Stl) 16.3 g/dL 13.0 - 17.0 g/dL [facility] Immature granulocytes/100 WBC (Bld) 1 % High 0 [facility] Interpretation and review of laboratory results Abnormal [facility] Lymphocytes/100 WBC (Bld) 14 % Low 24 - 43 % [facility] MCH (RBC) [Entitic mass] 30.5 pg 25.2 - 33.5 pg [facility] MCHC (RBC) [Mass/Vol] 34.3 g/dL 28.4 - 34.8 g/dL [facility] MCV (RBC) [Entitic vol] 89.0 fL 82.6 - 102.9 fL [facility] Monocytes/100 WBC (Bld) 9 % 3 - 12 % [facility] NRBC Automated 0.0 0.0 per 100 WBC [facility] Platelet distribution width (Bld) [Ratio] 12.5 % 11.8 - 14.4 % [facility] Platelet mean volume (Bld) [Entitic vol] 10.8 fL 8.1 - 13.5 fL [facility] Platelets (Bld) [#/Vol] 231 10*3/uL [facility] RBC (Bld) [#/Vol] 5.34 10*6/uL 4.21 - 5.77 m/uL [facility] Segmented neutrophils/100 WBC (Bld) 74 % High 36 - 65 % [facility] Segs Absolute 9.05 [facility] [#/Vol] 12.0 10*3/uL [facility] CT ABDOMEN PELVIS W IV CONTR AST Additional Contrast? Noneon 06-08-2021 Findings suspicious for acute enteritis. Diffuse hepatic steatosis. Nonobstructing stones in the left kidney. Normal appendix. [facility] EXAMINATION: CT OF THE [...] COMPARISON: 02/05/2019 HISTORY: ORDERING SYSTEM PROVIDED HISTORY: [facility] pain TECHNOLOGIST PROVIDED HISTORY: [facility] pain Decision Support Exception - unselect [...] aneurysm. Bones/Soft Tissues: Mild multilevel thoracolumbar spondylosis. [facility] Ok Rodgers MD - 06/08/2021 EXAMINATION: [...] COMPARISON: 02/05/2019 HISTORY: ORDERING SYSTEM PROVIDED HISTORY: [facility] pain TECHNOLOGIST PROVIDED HISTORY: abd pain Decision [...] stones in the left kidney. Normal appendix. [email or web address] Phone: Radiology Study observation (narrative) [email or web address] Phone: CT ABDOMEN PELVIS W IV CONTR AST Additional Contrast? NoneOrdered By: Ok Rodgers on 06-08-2021 [email or web address] Phone: Comprehensive Metabolic Pane karan 06-08-2021 Albumin [Mass/Vol] 4.6 g/dL 3.5 - 5.2 g/dL [facility] Albumin/Globulin [Mass ratio] 1.5 {ratio} [employer] ALP (Bld) [Catalytic activity/Vol] 90 U/L 40 - 129 U/L [employer] ALT [Catalytic activity/Vol] 37 U/L 5 - 41 U/L [employer] Anion gap [Moles/Vol] 10 mmol/L 9 - 17 mmol/L [employer] AST [Catalytic activity/Vol] 18 U/L <40 [employer] Bilirubin [Mass/Vol] 0.83 mg/dL 0.3 - 1.2 mg/dL [employer] Calcium [Mass/Vol] 9.7 mg/dL 8.6 - 10.4 mg/dL [employer] Chloride [Moles/Vol] 101 mmol/L 98 - 107 mmol/L [facility] CO2 [Moles/Vol] 29 mmol/L 20 - 31 mmol/L [facility] Creatinine [Mass/Vol] 0.83 mg/dL 0.70 - 1.20 mg/dL [facility] Free PSA/Total PSA [Mass fraction] 7.6 g/dL 6.4 - 8.3 g/dL [facility] GFR >60 >60 mL/min [facility] GFR Non- >60 >60 mL/min [facility] Glucose [Mass/Vol] 110 mg/dL High 70 - 99 mg/dL [facility] Interpretation and review of laboratory results Abnormal [facility] Potassium [Moles/Vol] 4.2 mmol/L 3.7 - 5.3 mmol/L [facility] Sodium [Moles/Vol] 140 mmol/L 135 - 144 mmol/L [facility] Urea nitrogen (BldV) [Mass/Vol] 10 mg/dL 6 - 20 mg/dL [facility] Urea nitrogen/Creatinine (Bld) [Mass ratio] 12 [facility] Laboratory - Chemistry and C hemistry - challengeon 06-08-2021 GFR/1.73 sq M.predicted MDRD (S/P/Bld) [Vol rate/Area] [facility] Comment on above: Average GFR for 40-4 9 years old: 99 mL/min/1.73sq m Chronic Kidney Disease: <60 mL/min/1.73sq m Kidney failure: <15 mL/min/1.73sq m eGFR calculated using average adult body mass. Additional eGFR calculator available at: http://www.[employer]ik.[employer]/multiple_crcl_2011.htm Stage 1: Some kidney damage normal GFR Stage 2: Mild kidney damage GFR 60-89 Stage 3: Moderate kidney damage GFR 30-59 Stage 4: Severe kidney damage GFR 15-29 Stage 5: Severe kidney damage GFR <15 ESRD - chronic treatment by dialysis or transplant Lactic Acidon 06-08-2021 Lactate [Moles/Vol] 2.1 mmol/L 0.5 - 2.2 mmol/L [facility] Lipaseon 06-08-2021 Lipase [Catalytic activity/Vol] 30 U/L 13 - 60 U/L [facility] No Panel Informationon 06-08 [facility] Basic Metabolic Panelon Anion gap [Moles/Vol] 9 mmol/L 9 - 17 mmol/L [place] Bun/Cre Ratio 12 [place] Calcium [Mass/Vol] 8.8 mg/dL 8.6 - 10.4 mg/dL [place] Chloride [Moles/Vol] 98 mmol/L 98 - 107 mmol/L [place] CO2 [Moles/Vol] 26 mmol/L 20 - 31 mmol/L [place] Creatinine [Mass/Vol] 1.04 mg/dL 0.7 - 1.2 mg/dL [place] GFR >60 >60 mL/min [place] GFR Non- >60 >60 mL/min [place] Glucose [Mass/Vol] 111 mg/dL High 70 - 99 mg/dL [place] Interpretation and review of laboratory results Abnormal [place] Potassium [Moles/Vol] 3.9 mmol/L 3.7 - 5.3 mmol/L [place] Sodium [Moles/Vol] 133 mmol/L Low 135 - 144 mmol/L [place] Urea nitrogen [Mass/Vol] 12 mg/dL 6 - 20 mg/dL [place] Brain Natriuretic Peptideon 03-19-2020 Natriuretic peptide B (Bld) [Mass/Vol] Pro-BNP Reference Range: [place] Comment on above: Rule Out: <300 Reis Zone: Age <50 300-450 Age 50-75 300-900 Age >75 300-1800 Usually represents mild to moderate HF but other cardiopulmonary causes cannot be ruled out. Rule In: Age <50 >450 Age 50-75 >900 Age >75 >1800 Natriuretic peptide B (Bld) [Mass/Vol] 60 pg/mL <300 [place] Comment on above: Pro-BNP results radha ot be compared to BNP results. CBC Auto Differentialon Basophils (Bld) [#/Vol] 0.04 10*3/uL [place] Basophils/100 WBC (Bld) 1 % 0 - 2 % [place] Differential Type NOT REPORTED [place] Eosinophils (Bld) [#/Vol] 0.04 10*3/uL [place] Eosinophils/100 WBC (Bld) 1 % 1 - 4 % [place] Erythrocyte distribution width (RBC) [Ratio] 12.5 % 11.8 - 14.4 % [place] Hematocrit (Bld) [Volume fraction] 48.2 % 40.7 - 50.3 % [place] Hemoglobin (Bld) [Mass/Vol] 16.3 g/dL 13 - 17 g/dL [place] Immature granulocytes (Bld) [#/Vol] 1 % High 0 [place] Immature granulocytes (Bld) [#/Vol] 0.07 10*3/uL [place] Interpretation and review of laboratory results Abnormal [place] Lymphocytes (Bld) [#/Vol] 1.10 10*3/uL [place] Lymphocytes/100 WBC (Bld) 13 % Low 24 - 43 % [place] MCH (RBC) [Entitic mass] 29.4 pg 25.2 - 33.5 pg [place] MCHC (RBC) [Mass/Vol] 33.8 g/dL 28.4 - 34.8 g/dL [place] MCV (RBC) [Entitic vol] 87.0 fL 82.6 - 102.9 fL [place] Monocytes (Bld) [#/Vol] 0.96 10*3/uL [place] Monocytes/100 WBC (Bld) 11 % 3 - 12 % [place] Platelet mean volume (Bld) [Entitic vol] 11.2 fL 8.1 - 13.5 fL [place] Platelets (Bld) [#/Vol] 175 10*3/uL [place] Platelets (Bld) [#/Vol] NOT REPORTED [place] RBC (Bld) [#/Vol] 5.54 10*6/uL 4.21 - 5.77 m/uL [place] RBC morphology finding Nom (Bld) NOT REPORTED [place] Segmented neutrophils/100 WBC (Bld) 73 % High 36 - 65 % [place] Segs Absolute 6.21 [place] WBC (Bld) [#/Vol] 8.4 10*3/uL [place] WBC (Bld) [#/Vol] 0.0 10*3/uL 0.0 per 100 WBC M [place] WBC Morphology NOT REPORTED [place], [place] COVID-19, PCRon 03-19-2020 Interpretation and review of laboratory results Abnormal [place] SARS-CoV-2, Rapid DETECTED Abnormal Not Detected [place] Comment on above: Rapid NAAT: The [...] this assay. Fact sheet for Healthcare Providers: https://www.fda.gov/media/256667/download Fact sheet for Patients: https://www.fda.gov/media/713960/download Methodology: Isothermal Nucleic Acid Amplification Results reported to the appropriate Health Department Source .NASOPHARYNGEAL SWAB [place] CT CHEST PULMONARY EMBOLISM W CONTRASTon 03-19-2020 1. No pulmonary embolism. 2. Multifocal ground-glass opacities in the bilateral lungs with overall pattern of concern for underlying viral pneumonitis. 3. Hepatomegaly and diffuse steatosis in the abdomen, stable from remote imaging. [place] [facility], [facility] Incoming Radiant Results From [email or web address] - 03/19/2020 8:26 PM EST EXAMINATION: CTA [...] in the abdomen, stable from remote imaging. [place] EXAMINATION: CTA OF THE CHEST 03/19/2020 [...] Tissues/Bones: No skeletal abnormalities throughout the chest. [place] Lactic Acid, Plasmaon 2020 Lactate [Moles/Vol] 1.2 mmol/L 0.5 - 2.2 mmol/L [place] Lactic Acid, Whole Blood NOT REPORTED 0.7 - 2.1 mmol/L [place] Metabolic Panelon 03-19-2020 GFR/1.73 sq M predicted among non-blacks MDRD (S/P/Bld) [Vol rate/Area] [place] Comment on above: Average GFR for 40-4 9 years old: 99 mL/min/1.73sq m Chronic Kidney Disease: <60 mL/min/1.73sq m Kidney failure: <15 mL/min/1.73sq m eGFR calculated using average adult body mass. Additional eGFR calculator available at: http://www.[employer]/multiple_crcl_2012.htm Stage 1: Some kidney damage normal GFR Stage 2: Mild kidney damage GFR 60-89 Stage 3: Moderate kidney damage GFR 30-59 Stage 4: Severe kidney damage GFR 15-29 Stage 5: Severe kidney damage GFR <15 ESRD - chronic treatment by dialysis or transplant Otheron 03-19-2020 SARS-CoV-2 [place] Rapid influenza A/B antigens on 03-19-2020 Direct Exam NEGATIVE for Influenza A + B antigens. PCR testing to confirm this result is available upon request. Specimen will be saved in the laboratory for 7 days. Please call [phone] if PCR testing is indicated. [place] Special Requests NOT REPORTED [place] Specimen Description .NASOPHARYNGEAL SWAB [place] Troponinon 03-19-2020 Troponin I.cardiac [Mass/Vol] NOT REPORTED [place] Troponin T.cardiac [Mass/Vol] NOT REPORTED <0.03 ng/mL [place] Troponin, High Sensitivity 15 ng/L 0 - 22 ng/L [place] Comment on above: High Sensitivity Troponin values cannot be compared with other Troponin methodologies. Patients with high levels of Biotin oral intake (i.e >5mg/day) may have falsely decreased Troponin levels. Samples collected within 8 hours of biotin intake may require additional information for diagnosis. XR CHEST PORTABLEon 03-19-19 [facility], [facility] Incoming Radiant Results From [employer] - 03/19/2020 6:06 PM EST EXAMINATION: ONE XRAY VIEW OF THE CHEST 03/19/2020 5:58 pm COMPARISON: June 27, 2018 HISTORY: ORDERING SYSTEM PROVIDED HISTORY: dyspnea TECHNOLOGIST PROVIDED HISTORY: dyspnea FINDINGS: Mild edema. Heart and mediastinum normal. Bony thorax intact. IMPRESSION: Mild edema or pneumonitis [facility] [place] EXAMINATION: ONE XRAY VIEW OF THE CHEST 03/19/2020 5:58 pm COMPARISON: June 27, 2018 HISTORY: ORDERING SYSTEM PROVIDED HISTORY: dyspnea TECHNOLOGIST PROVIDED HISTORY: dyspnea FINDINGS: Mild edema. Heart and mediastinum normal. Bony thorax intact. [facility] [employer] [facility] [place] Mild edema or pneumonitis [place] Otheron 10-21-2019 No acute abnormalities seen in the left foot or left ankle [place] EXAMINATION: THREE XRAY VIEWS OF THE [...] medial malleolus most likely from old trauma. [facility] [employer] [facility] [place], [facility] Incoming Radiant Results From [employer] - 10/21/2019 4:26 PM EDT EXAMINATION: THREE [...] in the left foot or left ankle [facility] [place] Basic Metabolic Panel w/ Ref katrin to MGon 02-06-2019 Anion gap [Moles/Vol] 13 mmol/L 9 - 17 mmol/L [place] Bun/Cre Ratio 16 [place] Calcium [Mass/Vol] 8.4 mg/dL Low 8.6 - 10.4 mg/dL [place] Chloride [Moles/Vol] 99 mmol/L 98 - 107 mmol/L [place] CO2 [Moles/Vol] 23 mmol/L 20 - 31 mmol/L [place] Creatinine [Mass/Vol] 0.94 mg/dL 0.7 - 1.2 mg/dL [place] GFR >60 >60 mL/min [place] GFR Non- >60 >60 mL/min [place] Glucose [Mass/Vol] 130 mg/dL High 70 - 99 mg/dL [place] Interpretation and review of laboratory results Abnormal [place] Potassium [Moles/Vol] 3.7 mmol/L 3.7 - 5.3 mmol/L [place] Sodium [Moles/Vol] 135 mmol/L 135 - 144 mmol/L [place] Urea nitrogen [Mass/Vol] 15 mg/dL 6 - 20 mg/dL [place] CBCon 02-06-2019 Erythrocyte distribution width (RBC) [Ratio] 12.5 % 11.8 - 14.4 % [place] Hematocrit (Bld) [Volume fraction] 45.4 % 40.7 - 50.3 % [place] Hemoglobin (Bld) [Mass/Vol] 15.1 g/dL 13 - 17 g/dL [place] MCH (RBC) [Entitic mass] 29.8 pg 25.2 - 33.5 pg [place] MCHC (RBC) [Mass/Vol] 33.3 g/dL 28.4 - 34.8 g/dL [place] MCV (RBC) [Entitic vol] 89.5 fL 82.6 - 102.9 fL [place] Platelet mean volume (Bld) [Entitic vol] 10.4 fL 8.1 - 13.5 fL [place] Platelets (Bld) [#/Vol] 198 10*3/uL [place] RBC (Bld) [#/Vol] 5.07 10*6/uL 4.21 - 5.77 m/uL [place] WBC (Bld) [#/Vol] 0.0 10*3/uL 0.0 per 100 WBC M [place] WBC (Bld) [#/Vol] 10.7 10*3/uL [place] Culture Stoolon 02-06-2019 Campylobacter PCR NEGATIVE: No Campylobacter spp. (jejuni or coli) DNA Detected NEGATIVE: No Campylobacter spp. (jejuni or coli) DNA Detecte [place] E Coli Enterotoxigenic PCR NEGATIVE: No Enterotoxigenic E. coli (ETEC) Heat-labile and heat-stable (LT/ST) DNA Detected NEGATIVE: No Enterotoxigenic E. coli (ETEC) Heat-labile and [place] Plesiomonas Shigelloides PCR Negative NEGATIVE: No Plesionomas shigelloides DNA Detected [place] Salmonella PCR Negative NEGATIVE: No Salmonella spp. DNA Detected [place] Shigatoxin Gene PCR Negative NEGATIVE : No Shiga toxin-producing gene(s) Detected [place] Shigella Sp PCR Negative NEGATIVE: No Shigella spp. / EIEC DNA Detected [place] Specimen Description .FECES [place] Vibrio PCR NEGATIVE: No Vibrio (V. vulnificus, V, parahaemolyticus and V. cholerae) DNA Detected NEGATIVE: No Vibrio (V. vulnificus, V, parahaemolyticus and [place] Yersinia Enterocolitica PCR Negative NEGATIVE: No Yersinia enterocolitica DNA Detected [place] Metabolic Panelon 02-06-2019 GFR/1.73 sq M predicted among non-blacks MDRD (S/P/Bld) [Vol rate/Area] [place], [place] Comment on above: Stage 1: Some [...] body mass. Additional eGFR calculator available at: http://www.XPlace/multiple_crcl_2012.htm Microscopic Urinalysison Amorphous, UA NOT REPORTED None [facility] [place], [place] Bacteria, UA TRACE Abnormal None [facility], [place] Casts UA NOT REPORTED /LPF [facility] Crystals UA NOT REPORTED None /HPF [facility], [place] Epithelial Cells UA 0 TO 2 [place], [place] Interpretation and review of laboratory results Abnormal [place] Mucus, UA TRACE Abnormal None [place] Other Observations UA NOT REPORTED NOT REQ. [place] RBC (U) [#/Vol] 0 TO 2 [facility], [place] Renal Epithelial, Urine NOT REPORTED 0 /HPF [place] Trichomonas, UA NOT REPORTED None [facility] [place] WBC, UA None [place] Yeast, UA NOT REPORTED None [place] - [place] Urinalysis Reflex to Culture on 02-06-2019 Bilirubin Urine Negative NEGATIVE [facility], [place] Color, UA YELLOW YELLOW [place] Glucose, Ur Negative NEGATIVE [place] Interpretation and review of laboratory results Abnormal [place] Ketones Ql (U) TRACE Abnormal NEGATIVE [place], [place] Leukocyte esterase Test strip Ql (U) Negative NEGATIVE [place] Nitrite, Urine Negative NEGATIVE [place] pH, UA 5.5 [place] Protein (U) [Mass/Vol] TRACE Abnormal NEGATIVE [place] Specific [place], UA >1.030 High [place], [place] Turbidity UA CLEAR CLEAR [place], [place] Urinalysis Comments NOT REPORTED [place] Urine Hgb 1+ Abnormal NEGATIVE [place] Urobilinogen, Urine Normal Normal [place], [place] C DIFF TOXIN/ANTIGENon 02-05 C DIFF AG + TOXIN Negative NEGATIVE [facility] [place] Comment on above: No C. difficile anti gen and Toxin Detected. Specimen Description .FECES [place] CBCon 02-05-2019 Erythrocyte distribution width (RBC) [Ratio] 12.0 % 11.8 - 14.4 % [place] Hematocrit (Bld) [Volume fraction] 49.7 % 40.7 - 50.3 % [place] Hemoglobin (Bld) [Mass/Vol] 17.2 g/dL High 13 - 17 g/dL [place] Interpretation and review of laboratory results Abnormal [place] MCH (RBC) [Entitic mass] 30.4 pg 25.2 - 33.5 pg [place] MCHC (RBC) [Mass/Vol] 34.6 g/dL 28.4 - 34.8 g/dL [place] MCV (RBC) [Entitic vol] 87.8 fL 82.6 - 102.9 fL [place] Platelet mean volume (Bld) [Entitic vol] 10.8 fL 8.1 - 13.5 fL [place] Platelets (Bld) [#/Vol] 233 10*3/uL [place] RBC (Bld) [#/Vol] 5.66 10*6/uL 4.21 - 5.77 m/uL [place] WBC (Bld) [#/Vol] 15.0 10*3/uL [place] WBC (Bld) [#/Vol] 0.0 10*3/uL 0.0 per 100 WBC [place] CT ABDOMEN PELVIS W IV CONTR AST Additional Contrast? Noneon 02-05-2019 Tito, Mhpn Incoming Radiant Results From [email or web address] - 02/05/2019 6:20 PM EST EXAMINATION: CT [...] pathologic adenopathy. Bones/Soft Tissues: Normal IMPRESSION: Ileus [place], [place] EXAMINATION: CT OF THE ABDOMEN AND [...] is no pathologic adenopathy. Bones/Soft Tissues: Normal [facility], [place] Ileus [place] Comprehensive Metabolic Pane karan 02-05-2019 Albumin [Mass/Vol] 4.6 g/dL 3.5 - 5.2 g/dL [place], [place] Albumin/Globulin [Mass ratio] 1.4 {ratio} [place] ALP [Catalytic activity/Vol] 88 U/L 40 - 129 U/L [place] ALT [Catalytic activity/Vol] 43 U/L High 5 - 41 U/L [place] Anion gap [Moles/Vol] 19 mmol/L High 9 - 17 mmol/L [place] AST [Catalytic activity/Vol] 23 U/L <40 [place] Bilirubin Ql (U) 1.37 mg/dL High 0.3 - 1.2 mg/dL [place], [place] Bun/Cre Ratio 16 [place], [place] Calcium [Mass/Vol] 9.4 mg/dL 8.6 - 10.4 mg/dL [place] Chloride [Moles/Vol] 96 mmol/L Low 98 - 107 mmol/L [place] CO2 [Moles/Vol] 21 mmol/L 20 - 31 mmol/L [place] Creatinine [Mass/Vol] 0.9 mg/dL 0.7 - 1.2 mg/dL [place] GFR >60 >60 mL/min [place] GFR Non- >60 >60 mL/min [place] Glucose [Mass/Vol] 119 mg/dL High 70 - 99 mg/dL [place] Interpretation and review of laboratory results Abnormal [place] Potassium [Moles/Vol] 4.2 mmol/L 3.7 - 5.3 mmol/L [place] Protein [Mass/Vol] 8.0 g/dL 6.4 - 8.3 g/dL [place], [place] Sodium [Moles/Vol] 136 mmol/L 135 - 144 mmol/L [place] Urea nitrogen [Mass/Vol] 14 mg/dL 6 - 20 mg/dL [place] Lactic Acid, Plasmaon 2018 Interpretation and review of laboratory results Abnormal [place] Lactate [Moles/Vol] 2.4 mmol/L High 0.5 - 2.2 mmol/L [place], [place] Lactic Acid, Whole Blood NOT REPORTED 0.7 - 2.1 mmol/L [place] Lipaseon 02-05-2019 Lipase [Catalytic activity/Vol] 32 U/L 13 - 60 U/L [place] Metabolic Panelon 02-05-2019 GFR/1.73 sq M predicted among non-blacks MDRD (S/P/Bld) [Vol rate/Area] [place] Comment on above: Average GFR for 40-4 9 years old: 99 mL/min/1.73sq m Chronic Kidney Disease: <60 mL/min/1.73sq m Kidney failure: <15 mL/min/1.73sq m eGFR calculated using average adult body mass. Additional eGFR calculator available at: http://www.XPlace/multiple_crcl_2012.htm Stage 1: Some kidney damage normal GFR Stage 2: Mild kidney damage GFR 60-89 Stage 3: Moderate kidney damage GFR 30-59 Stage 4: Severe kidney damage GFR 15-29 Stage 5: Severe kidney damage GFR <15 ESRD - chronic treatment by dialysis or transplant Vital Signs Date Time Vital Sign Value Performing Clinician Rochelle cerrato 10-11-2022 15:03-0400 Diastolic blood pressure 81 mm[Hg] PHYSICIAN RAM[facility] 10-11-2022 15:03-0400 Heart rate 75 /min PHYSICIAN RAMÓN [facility] 10-11-2022 15:03-0400 Respiratory rate 20 /min PHYSICIAN RAMÓN [facility] 10-11-2022 15:03-0400 SaO2% (BldA) [Mass fraction] 97 % PHYSICIAN RAMÓN [facility] 10-11-2022 15:03-0400 Systolic blood pressure 146 mm[Hg] PHYSICIAN RAMÓN [facility] 10-11-2022 12:17-0400 Body temperature 98.3 [degF] PHYSICIAN RAMÓN [facility] 10-11-2022 12:12-0400 Body height 175.26 cm PHYSICIAN RAMÓN [facility] 10-11-2022 12:12-0400 Body weight 128.6 kg PHYSICIAN NO [facility] 08-18-2022 12:04-0400 Body temperature 97.9 [degF] PHYSICIAN NO [facility] 08-18-2022 11:58-0400 Body height 177.8 cm PHYSICIAN NO [facility] 08-18-2022 11:58-0400 Body weight 129.36 kg PHYSICIAN NO [facility] 08-18-2022 11:58-0400 Diastolic blood pressure 115 mm[Hg] PHYSICIAN NO [facility] 08-18-2022 11:58-0400 Heart rate 107 /min PHYSICIAN NO [facility] 08-18-2022 11:58-0400 Respiratory rate 20 /min PHYSICIAN NO [facility] 08-18-2022 11:58-0400 SaO2% (BldA) [Mass fraction] 97 % PHYSICIAN NO [facility] 08-18-2022 11:58-0400 Systolic blood pressure 159 mm[Hg] PHYSICIAN NO [facility] 12-19-2021 18:32-0400 Body temperature 98.1 [degF] PHYSICIAN NO [facility] 12-19-2021 18:32-0400 Diastolic blood pressure 105 mm[Hg] PHYSICIAN NO [facility] 12-19-2021 18:32-0400 Heart rate 106 /min PHYSICIAN NO [facility] 12-19-2021 18:32-0400 Respiratory rate 20 /min PHYSICIAN NO [facility] 12-19-2021 18:32-0400 SaO2% (BldA) [Mass fraction] 96 % PHYSICIAN NO [facility] 12-19-2021 18:32-0400 Systolic blood pressure 153 mm[Hg] PHYSICIAN NO [facility] 12-19-2021 17:44-0400 Body height 177.8 cm PHYSICIAN NO [facility] 12-19-2021 17:44-0400 Body weight 134.55 kg PHYSICIAN NO [facility] 12-17-2021 09:40-0400 Body height 177.8 cm PHYSICIAN NO [facility] 12-17-2021 09:40-0400 Body temperature 98.1 [degF] PHYSICIAN NO [facility] 12-17-2021 09:40-0400 Body weight 134 kg PHYSICIAN NO [facility] 12-17-2021 09:40-0400 Diastolic blood pressure 108 mm[Hg] PHYSICIAN NO [facility] 12-17-2021 09:40-0400 Heart rate 114 /min PHYSICIAN NO [facility] 12-17-2021 09:40-0400 Respiratory rate 20 /min PHYSICIAN NO [facility] 12-17-2021 09:40-0400 SaO2% (BldA) [Mass fraction] 98 % PHYSICIAN NO [facility] 12-17-2021 09:40-0400 Systolic blood pressure 171 mm[Hg] PHYSICIAN NO [facility] 12-02-2021 14:50-0400 Body height 177.8 cm PHYSICIAN NO [facility] 12-02-2021 14:50-0400 Body temperature 98.6 [degF] PHYSICIAN NO [facility] 12-02-2021 14:50-0400 Body weight 133.2 kg PHYSICIAN NO [facility] 12-02-2021 14:50-0400 Diastolic blood pressure 102 mm[Hg] PHYSICIAN NO [facility] 12-02-2021 14:50-0400 Heart rate 117 /min PHYSICIAN NO [facility] 12-02-2021 14:50-0400 Respiratory rate 18 /min PHYSICIAN NO [facility] 12-02-2021 14:50-0400 SaO2% (BldA) [Mass fraction] 98 % PHYSICIAN NO [facility] 12-02-2021 14:50-0400 Systolic blood pressure 174 mm[Hg] PHYSICIAN NO [facility] 06-08-2021 14:28-0400 Heart rate 117 /min Fatoumata Tillman CNP Work Phone: [employer] 06-08-2021 14:28-0400 SaO2% (BldA) [Mass fraction] 95 % Fatoumata Tillman CNP Work Phone: [employer] 06-08-2021 14:22-0400 Body height 177.8 cm Fatoumata Sanchez APRN - [employer] Work Phone: [employer] 06-08-2021 14:22-0400 Body mass index (BMI) [Ratio] 44.77 kg/m2 Fatoumata Sanchez APRN - [employer] Work Phone: [employer] 06-08-2021 14:22-0400 Body temperature 98.1 [degF] Fatoumata Sanchez APRN - [employer] Work Phone: [employer] 06-08-2021 14:22-0400 Body weight 141.52 kg Fatoumata Sanchez APRN - [employer] Work Phone: [employer] 06-08-2021 14:22-0400 Diastolic blood pressure 120 mm[Hg] Fatoumata Sanchez APRN - [employer] Work Phone: [employer] 06-08-2021 14:22-0400 Respiratory rate 18 /min Fatoumata Sanchez APRN - [employer] Work Phone: [employer] 06-08-2021 14:22-0400 Systolic blood pressure 170 mm[Hg] Fatoumata Sanchez APRN - [employer] Work Phone: [employer] 03-19-2020 23:45-0500 BP Diastolic 101 mm[Hg] [facility] [place] 03-19-2020 23:45-0500 BP Systolic 148 mm[Hg] [facility] [place] 03-19-2020 23:45-0500 Pulse (Heart Rate) 117 /min [facility] [place] 03-19-2020 23:45-0500 Pulse Oximetry 94 % [facility] [place] 03-19-2020 23:45-0500 Respiratory Rate 23 /min [facility] [place] 03-19-2020 19:57-0500 Body Temperature 99.9 [degF] [facility] [place] 03-19-2020 17:38-0500 BMI (Body Mass Index) 45.92 kg/m2 [facility], [place] 03-19-2020 17:38-0500 Body weight 145.15 kg [facility] , [place] 03-19-2020 17:38-0500 Height 177.8 cm [facility] , [place] 10-21-2019 17:46-0400 BP Diastolic 103 mm[Hg] [facility] [place] 10-21-2019 17:46-0400 BP Systolic 163 mm[Hg] [facility] [place] 10-21-2019 17:37-0400 Pulse (Heart Rate) 109 /min [facility] 10-21-2019 17:37-0400 Respiratory Rate 18 /min [facility] 10-21-2019 16:02-0400 BMI (Body Mass Index) 44.3 kg/m2 [facility], [place] 10-21-2019 16:02-0400 Body Temperature 97 [degF] [facility], [place] 10-21-2019 16:02-0400 Body weight 136.08 kg [facility] , [place] 10-21-2019 16:02-0400 Pulse Oximetry 96 % [facility] , [place] 02-07-2019 08:18-0500 Body Temperature 97.7 [degF] Dat Jean Baptiste [facility], [place] 02-07-2019 08:18-0500 BP Diastolic 102 mm[Hg] Dat [facility] , [place] 02-07-2019 08:18-0500 BP Systolic 132 mm[Hg] Dat Jean Baptiste [facility] , [place] 02-07-2019 08:18-0500 Pulse (Heart Rate) 76 /min Dat [facility] 02-07-2019 08:18-0500 Pulse Oximetry 96 % Dat [facility] , [place] 02-07-2019 08:18-0500 Respiratory Rate 16 /min Dat Jean Baptiste [facility] 02-07-2019 04:51-0500 BMI (Body Mass Index) 42.06 kg/m2 Dat Jean Baptiste [facility] 02-07-2019 04:51-0500 Body weight 129.18 kg Dat Jean Baptiste [facility] , [place] 02-06-2019 08:10-0500 Height 175.3 cm Dat [facility] [place] , [place] Encounters Encounter Date Encounter Type Care Provider Facility Start: 06-25-2024 End: 06-25-2024 ambulatory MARK MORTON Facility[place] Start: 06-25-2024 End: 06-25-2024 Patient encounter procedure MARK MORTON [facility] Start: 06-21-2024 End: 06-21-2024 ambulatory MARK MORTON [facility] Start: 06-21-2024 End: 06-21-2024 [facility]: 02-27-2024 End: 02-27-2024 Emergency department patient visit Med Koenig Facility:[facility] Start: 02-26-2024 End: 02-26-2024 ambulatory Yana Navas RN [facility] Start: 02-15-2024 End: 02-15-2024 Emergency department patient visit Jenelle Judge Facility:[facility] Start: 07-04-2023 End: 07-04-2023 Emergency department patient visit [facility] Start: 10-11-2022 End: 10-11-2022 Emergency department patient visit PHYSICIAN NO [facility] Work Phone: Start: 08-18-2022 End: 08-18-2022 Emergency department patient visit PHYSICIAN NO [facility] Work Phone: Start: 05-15-2022 End: 05-16-[address] NONE LISTED REQUEST Facility:[facility] Start: 05-11-2022 End: 05-11-[address] NONE LISTED REQUEST Facility:[facility] Start: 01-21-2022 End: 01-21-2022 ambulatory PHYSICIAN NO [facility] Work Phone: Start: 01-21-2022 End: 01-21-2022 Discharged Recurring PHYSICIAN NO [facility] [address] Start: 12-19-2021 End: 12-19-2021 Emergency department patient visit PHYSICIAN NO [facility] Start: 12-17-2021 End: 12-17-2021 Emergency department patient visit PHYSICIAN NO [facility] Start: 12-02-2021 End: 12-02-2021 Emergency department patient visit PHYSICIAN NO [facility] Start: 06-08-2021 End: 06-08-2021 Emergency department patient visit Fatoumata Sanchez [employer] Work Phone: [facility] ED Comment on above: Enteritis (Primary D x) Start: 03-19-2020 End: 03-20-2020 Emergency department patient visit [facility] ED Comment on above: COVID-19 (Primary Dx ) Start: 10-21-2019 End: 10-21-2019 Emergency department patient visit [facility] ED Comment on above: Left Achilles tendin itis (Primary Dx) Start: 02-05-2019 End: 02-07-2019 Evaluation and management of inpatient Dat Jean Baptiste Work Phone: [facility] Comment on above: [...] abdomen & pelvis w/contrast material Fatoumata Sanchez [employer] - [employer] Work Phone: Start: 06-08-2021 Comprehensive metabo lic panel Fatoumata Sanchez [employer] - [employer] Work Phone: Start: 03-19-2020 Ct thorax w/contrast material Arabella Blandon Work Phone: Start: 03-19-2020 COVID-19 Arabella nolanon Work Phone: Start: 03-19-2020 Iaadiadoo influenza Enmanuel Raymundocheson Work Phone: Start: 03-19-2020 Assay of lactate [...] 10-21-2019 Radex ankle complete minimum 3 views Aamn [place]edo Work Phone: Start: 02-06-2019 BASIC METABOLIC PANE L W/ REFLEX TO MG FOR LOW K Dat Jean Baptiste Work Phone: Start: 02-06-2019 Blood count complete automated Dat Jean Baptiste Work Phone: Start: 02-06-2019 Urinalysis microscop ic only Arabella Barber Work Phone: Start: 02-06-2019 Urnls dip stick/tabl et rgnt auto w/o microscopy [facility] Work Phone: Start: 02-05-2019 Cul bact stool aerob ic isol salmonella&shigell [facility] Work Phone: Start: 02-05-2019 Toxin/antitoxin assa y tissue culture [facility] Work Phone: Start: 02-05-2019 Ct abdomen & [facility] w/[facility] Work Phone: Start: 02-05-2019 Assay of lactate [facility] Work Phone: Start: 02-05-2019 Assay of lipase Arabella chaudhary Work Phone: Start: 02-05-2019 Blood count complete automated Arabella Blandon Work Phone: Start: 02-05-2019 Comprehensive metabo lic panel Arabella Blandon Work Phone: SARS Antigen (LFIA) PHYSICIA N NO FAMILY Plan of Treatment Date Care Activity Detail Author Start: 02-01-2024 Adult BMI Screening Adult BMI Screen ing [facility] Start: 02-01-2024 Depression Screening Depression Scre ening [facility] Start: 02-01-2024 Tobacco Screening Tobacco Screening [facility] Start: 11-12-2023 Influenza vaccination Influenza Vacc ine [facility] Start: 2023 Screening for malign ant neoplasm of colon Colonoscopy [facility] Start: 06-08-2022 Creatinine measurement Creatinine mo [facility] Start: 06-08-2022 Potassium monitoring Potassium monit [facility] Start: 03-19-2021 Creatinine measurement Creatinine mo [place] Start: 03-19-2021 Potassium monitoring Potassium monit [place] Start: 11-11-2020 Influenza vaccination Flu vaccine (# 1) [facility] Start: 02-07-2020 Creatinine measurement Creatinine mo [place] Start: 02-07-2020 Potassium monitoring Potassium monit [place] Start: 11-12-2019 Influenza vaccination Flu vaccine (# 1) [place] Start: 06-28-2019 Creatinine monitoring Creatinine mon [place]oring [place] Start: 06-28-2019 Potassium monitoring Potassium monit [place] Start: 11-11-2018 Influenza vaccination Flu vaccine (# 1) [place] Start: 2018 Diabetes screen Diabetes screen [place] Start: 2018 Lipid panel Lipid screen [place] Start: 2018 Lipid screen Lipid screen [place] Start: 2013 Diabetes screen Diabetes screen [facility] Start: 1997 DTaP,Tdap and Td Vaccines (1 - Tdap) DTaP,Tdap and Td Vaccines (1 - Tdap) [facility] Start: 1997 DTaP/Tdap/Td vaccine (1 - Tdap) DTaP/Tdap/Td vaccine (1 - Tdap) [facility] Start: 1993 HIV screen HIV screen [place], [place] Start: 1993 HIV screening HIV screen [facility] Start: 1990 Depression Screen Depression Screen [facility] Start: 1989 DTaP/Tdap/Td vaccine (1 - Tdap) DTaP/Tdap/Td vaccine (1 - Tdap) [place] Start: 1983 COVID-19 Vaccine (1) COVID-19 Vaccin e (1) [facility] Start: 1978 Hepatitis C screening Hepatitis C sc reen [facility] End: 03-19-2020 Culture, Blood 1 Culture, Blood 1 Microbiology STAT One Time for 1 Occurrences starting 03/19/2020 until 03/19/2020 [place] Comment on above: One Time for 1 Occur rences starting 03/19/2020 until 03/19/2020 Culture, Blood 1 Culture, Blood 1 Microbiology STAT 03/19/2020 6:00 PM [place] EKG 12 Lead EKG 12 Lead ECG STAT 03/19/2020 5:53 PM [place] Initiate Oxygen Ther apy Protocol Initiate Oxygen Therapy Protocol Respiratory Care Routine Daily until discontinued starting 02/05/2019 [place] Comment on above: Daily until disconti nued starting 02/05/2019 Nasal Cannula Oxygen Nasal Cannu la Oxygen Respiratory Care STAT Daily until discontinued starting 03/19/2020 [place] Comment on above: Daily until disconti nued starting 03/19/2020 Patient Education [facility] Work Phone: Patient referral [facility] Work Phone: End: 02-05-2019 Pulse Oximetry Spot Check Pulse Oximetry Spot Check Respiratory Care Routine One Time for 1 Occurrences starting 02/05/2019 until 02/05/2019 [place] Comment on above: One Time for 1 Occur rences starting 02/05/2019 until 02/05/2019 End: 06-08-2021 Urinalysis with Microscopic Urinalysis with Microscopic Lab STAT One Time for 1 Occurrences starting 06/08/2021 until 06/08/2021 [employer] Work Phone: Comment on above: One Time for 1 Occur rences starting 06/08/2021 until 06/08/2021 Payers Date Payer Category Payer Unknown [id number] 2024 Unknown [id number] 2022 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 Plan / Payer (Effective 2022-Present) Name: Lawson Lopez Relation to Subscriber: Self Name: Lawson Lopez Payer ID: Not on file Group ID: Not on file Type: Not on file Address: [place] [id number] 1978 Unknown [id number] 1978 Unknown [id number] 1978 Unknown [id number] 1959 Self-pay 1959 Worker's Compensation [id number] Unknown [id number] Unknown [id number] Social History Date Type Detail Facility Start: 10-21-2019 End: 10-04-2022 Tobacco smoking status NHIS Former smoker [place] Start: 10-21-2019 End: 10-04-2022 Tobacco use and exposure Never used [facility] Start: 10-21-2019 End: 06-08-2021 Alcohol intake Current non-drinker of alcohol (finding) [place] Start: 1980 Sex Assigned At Not on file [place] Start: 05-29-2021 End: 06-08-2021 Exposure to SARS-CoV-2 (event) Not sure [place], [place] Start: 12-02-2021 End: 12-19-2021 Tobacco smoking status NHIS Never smoked tobacco (finding) [facility] Start: 1980 Sex Assigned At Male [facility] End: 09-06-2022 History of tobacco use Current smoker [facility] End: 09-06-2022 History of tobacco use Cigarette Smoker [facility] Start: 01-31-2023 Alcoholic beverage intake Current drinker of alcohol (finding) [facility] Start: 01-31-2023 History of Social function [facility] Start: 01-31-2023 Tobacco use panel [facility] Start: 04-30-2018 Adolescent depressio n screening assessment 2 [facility] Start: 10-04-2022 Alcohol Comment Social [facility] Start: 04-30-2018 End: 09-22-2022 Sex Male (finding) [facility] Sexual Orientation [facility] Clinical Notes 06-08-2021 to 06-25-2024 Telephone Encounter - Yana Navas RN - 02/26/2024 7:12 AM ESTTelephone Encounter - Yaan Navas RN - 02/26/2024 7:12 AM ESTInstructionsAttachments Note Date & Type Note Facility 06-25-2024 Note Echocardiology Procedure Exam Date/Time Accession # Ordering Echo Transthoracic 06/25/2024 14:03 EDT [id number] MARK MORTON Complete CPT code 49457 [id number] Reason for Exam (Echo Transthoracic Complete) I50.21 Report [facility] [address] [place] [address] Adult Echocardiogram Report Name: LAWSON LOPEZ Study Date: 06/25/2024 01:21 PM BP: 151/101 mmHg Patient Location: [facility] Ambulatory(s) [facility] HR: 75 : 1980 Gender: Male Height: 69 in Age: 44 yrs Ethnicity: T Weight: 290 lb Reason For Study: I50.21 BSA: 2.4 m2 History: HTN,Pre-Op Performed By: Princess Aguirre, JANA, RVT Interpretation Summary Mild left ventricular hypertrophy. Left ventricular systolic function is normal. Ejection Fraction = 55-60%. Diastolic dysfunction, Grade II (pseudonormalization pattern). There is no pericardial effusion. Procedure A complete two-dimensional transthoracic echocardiogram was performed (2D, M-mode, spectral and color flow Doppler). Left Ventricle The left ventricle is normal in size. mild left ventricular hypertrophy. Left ventricular systolic function is normal. Ejection Fraction = 55-60%. The left ventricular wall motion is normal. Diastolic dysfunction, Grade II (pseudonormalization pattern). Left Atrium The left atrial size is normal. There is no atrial septal defect. Echocardiology Report Right Atrium Right atrial size is normal. Right Ventricle The right ventricular systolic function is normal. The right ventricle is normal size. Aortic Valve The aortic valve is not well visualized. Aortic valve opening is normal. No aortic regurgitation. There is no aortic stenosis. Mitral Valve Mitral valve structure is normal. There is no mitral regurgitation noted. No mitral valve stenosis. Tricuspid Valve The tricuspid valve is grossly normal. There is trace tricuspid regurgitation. Right ventricular systolic pressure is normal. No evidence of tricuspid stenosis. Pulmonic Valve Not well visualized. Arteries The aortic root is normal in size. Normal ascending aorta. Venous The inferior vena cava is normal in size, and collapses normally with respiration. Effusion There is no pericardial effusion. MMode/2D Measurements & Calculations RVDd: 3.3 cm LVIDd: 4.9 cm FS: 27.0 % Ao root diam: 3.4 cm IVSd: 1.1 cm LVIDs: 3.6 cm EDV(Teich): 115.0 ml LVPWd: 1.3 cm ESV(Teich): 54.7 ml Ao root area: 9.3 cm2 EF(Teich): 52.4 % LA dimension: 4.0 cm asc Aorta Diam: 3.0 cm LVOT diam: 2.2 cm LVLd ap4: 7.8 cm EDV(MOD-sp2): 90.3 ml LVOT area: 3.8 cm2 EDV(MOD-sp4): 96.3 ml ESV(MOD-sp2): 37.0 ml LVLs ap4: 6.3 cm EF(MOD-sp2): 59.0 % ESV(MOD-sp4): 37.8 ml EF(MOD-sp4): 60.7 % SV(MOD-sp4): 58.5 ml TAPSE: 1.8 cm IVC Diam: 1.7 cm RV Base_phl: 3.5 cm RV Length_phl: 7.5 cm RV Mid_phl: 3.1 cm Echocardiology Report RVIDd/LVIDd: 0.67 EF (MOD-bp): 58.7 % LA Vol Index: 11.4 ml/m2 Doppler Measurements & Calculations MV E max elvira: 59.9 cm/sec MV dec time: 0.19 sec Ao V2 max: 110.0 cm/sec LV V1 max P.4 mmHg MV A max elvira: 51.1 cm/sec Ao max P.8 mmHg LV V1 mean P.0 mmHg MV E/A: 1.2 Ao V2 mean: 74.5 cm/sec LV V1 max: 92.5 cm/sec Lat Peak E' Elvira: 8.5 cm/sec Ao mean P.0 mmHg LV V1 mean: 57.2 cm/sec E/E' Lat: 7.1 Ao V2 VTI: 20.5 cm LV V1 VTI: 14.6 cm Med Peak E' Elvira: 5.0 cm/sec E/E' Med: 12.0 UNIQUE(I,D): 2.7 cm2 UNIQUE(V,D): 3.2 cm2 SV(LVOT): 54.8 ml TR max elvira: 201.7 cm/sec RAP systole: 3.0 mmHg AV VR: 0.84 TR max P.5 mmHg UNIQUE(VTI)/BSA_phl: 1.1 RVSP(TR): 19.5 mmHg FINAL REPORT Dictated: 06/25/2024 1:21 pm Abdoul Ny MD Signed (Electronic Signature): 06/25/2024 3:38 pm Signed by: Abdoul Ny MD Transcribed by: LEATHA Technologist: SISI Vega [facility] 06-21-2024 Note SUBJECTIVE Reason for Visit: Lawson Lopez is a 44 y.o. year old male patient being seen for surgical clearance right knee scope scheduled for July 01 2024. HPI: Lawson Lopez is a 44 y.o. year old male with significant medical history of hypertension, and hyperlipidemia. Patient underwent an elective coronary angiogram on 11/27/[address] Michelle for abnormal stress test and reduced LVEF, and was found to have nonobstructive CAD. 06/21/2024 office visit: Patient denies chest pain, shortness of breath, palpitations, lightheadedness, or dizziness. He admits to being anxious during the visit. Initial blood pressure was 169/120 with a heart rate of 117. Upon recheck 10 minutes later his BP was 130/90. He endorses lower extremity edema. He reports falling approximately 14 feet while hunting at night in [place] and is currently experiencing knee pain rated 6/10. He states that his primary care provider discontinued some of his blood pressure medications about 1.5 years ago. 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 He is currently taking atorvastatin 40 mg daily, carvedilol 12.5 mg twice daily, and aspirin 81 mg daily. Past Medical History: Diagnosis Date Hyperlipidemia Hypertension Past Surgical History: Procedure Laterality Date CORONARY ANGIOPLASTY KNEE SURGERY TONSILLECTOMY Patient Active Problem List Diagnosis Acute pharyngitis Abdominal pain Chest pain Essential hypertension History of tobacco abuse Multiple lung nodules on CT Abnormal stress test Angina pectoris, unstable (CMS/HCC) Chronic systolic CHF (congestive heart failure), NYHA class 2 (CMS/HCC) Coronary artery disease involving southern [place] coronary artery of southern ute heart without angina pectoris family history includes Coronary artery disease in his mother's brother; No Known Problems in his brother, father, and mother; Peripheral vascular disease in his mother's brother. Social History Tobacco Use Smoking status: Former Current packs/day: 0.00 Types: Cigarettes Quit date: 09/04/2022 Years since quittin.7 Smokeless tobacco: Never Substance Use Topics Alcohol use: Yes Comment: occasional Drug use: Not Currently OBJECTIVE Visit Vitals BP 130/90 (BP Location: Left arm, Patient Position: Sitting, BP Cuff Size: Adult) Pulse (!) 117 Ht 1.753 m (5' 9 ) Wt 136 kg (299 lb) SpO2 95% BMI 44.15 kg/m??? Smoking Status Former BSA 2.57 m??? Physical Exam Constitutional: General Appearance: well-developed, appears stated age. Level of Distress: no acute distress. Neck: Jugular Veins: normal jugular venous pressure. Lungs: Auscultation: no rales or rhonchi and normal breath sounds. Cardiovascular: Rate And Rhythm: regular, elevated Heart Sounds: normal S1 and s2; Systolic Murmur: not heard. Diastolic Murmur: not heard. Extremities: +1 LE edema Peripheral Pulses: Pulses: full and equal in all extremities except if noted. Abdomen: Inspection and Palpation: non distended or tender and soft. Musculoskeletal: Inspection: no joint tenderness or swelling. Neurologic: Gait: normal gait. Psychiatric: Mental Status: alert and normal affect. Skin: Inspection and Palpation: warm and dry. 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 Tremors. Outpatient Medications: Current Outpatient Medications Medication Instructions aspirin 81 mg, oral, Daily atorvastatin (LIPITOR) 40 mg, oral, Nightly carvedilol (COREG) 25 mg, oral, 2 times daily with meals dapagliflozin propanediol (FARXIGA) 10 mg, oral, Daily diclofenac (Voltaren) 75 mg EC tablet 1 tablet, oral, 2 times daily PRN escitalopram (LEXAPRO) 10 mg, oral, Daily RT furosemide (LASIX) 20 mg, oral, Daily gabapentin (NEURONTIN) 600 mg, oral, Daily ibuprofen 800 mg tablet 1 tablet, oral, Every 8 hours PRN lisinopril 5 mg, oral, Daily RT meloxicam (MOBIC) 15 mg, oral, Daily methocarbamol (Robaxin) 500 mg tablet 1 tablet, oral, Every 8 hours PRN ondansetron ODT (ZOFRAN-ODT) 4 mg, oral, Every 8 hours PRN spironolactone (ALDACTONE) 25 mg, oral, Daily tiZANidine (ZANAFLEX) 2 mg, oral, Every 6 hours PRN Recent Labs: No visits with results within 6 Month(s) from this visit. Latest known visit with results is: Admission on 11/17/2022, Discharged on 11/17/2022 Component Date Value Ventricular Rate 11/17/2022 81 Atrial Rate 11/17/2022 81 NV Interval 11/17/2022 168 QRS DURATION 11/17/2022 82 QT Interval 11/17/2022 370 QTC CALCULATION(BAZETT) 11/17/2022 429 P [place] 11/17/2022 28 R-[place] 11/17/2022 -30 T Wave [place] 11/17/2022 -32 Auto WBC 11/17/2022 10.15 RBC 11/17/2022 4.93 Hemoglobin 11/17/2022 14.9 Hematoc (more content not included)... [facility] 02-26-2024 Miscellaneous Notes ----- Message from Livia sent at 02/26/2024 7:11 AM EST ----- Contract: Mireya Chino started taking Gabapentin 600 mg last night and this morning he feels dizzy and disoriented with heavy breathing Contract: 198 Patient's girlfriend calling the after hours this morning- she voices that Emmanuel started taking Gabapentin (600 mg) last night This morning Lawson is extremely disoriented and very dizzy- he is having difficulty walking Caller reports that it took Lawson over 3 minutes just to walk to the bathroom this morning Heavy Breathing and SOB Denies one sided weakness/numbness/tingling Advised caller to call 911 to have EMS evaluate patient Caller voiced understanding and agreed Reason for Disposition Difficult to awaken or acting confused (e.g., disoriented, slurred speech) Protocols used: Breathing [id number] documented in this encounter [facility] 02-26-2024 Telephone encounter Note ----- Message from Livia sent at 02/26/2024 7:11 AM EST ----- Contract: 198 Matti started taking Gabapentin 600 mg last night and this morning he feels dizzy and disoriented with heavy breathing [facility] 02-26-2024 Telephone encounter Note Contract: 198 Patient's girlfriend calling the after hours this morning- she voices that Emmanuel started taking Gabapentin (600 mg) last night This morning Lawson is extremely disoriented and very dizzy- he is having difficulty walking Caller reports that it took Lawson over 3 minutes just to walk to the bathroom this morning Heavy Breathing and SOB Denies one sided weakness/numbness/tingling Advised caller to call 911 to have EMS evaluate patient Caller voiced understanding and agreed Reason for Disposition Difficult to awaken or acting confused (e.g., disoriented, slurred speech) Protocols used: Breathing [id number] [facility] 06-08-2021 Hospital Discharg Fatoumata Joyce, AUTOMATIC MOLD SANDER - 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 Take Bentyl as prescribed. Follow-up with PCP for reevaluation in the next couple of days. Avoid dairy, spicy and fatty foods for the next week. Return here for increased pain, fever, difficulty breathing, vomiting or new or worsening signs or symptoms. The following attachments cannot be sent through Care Everywhere.Gastroenteritis (Sol[place] Islander)documented in this encounter [employer] Phone: Evaluation + Plan note No data available for this section [facility] Evaluation note Diagnosis Enteritis- Primary Other and unspecified noninfectious gastroenteritis and colitis documented in this encounter [employer] Phone: evaluation noteNo assessment information available [facility] Work Phone: Hospital Discharge instructions Additional Instructions Rest ice elevate Use the wrist splint for comfort Take ibuprofen every 6 hours for discomfort Follow-up with either [facility] or [facility] Follow-up with [facility] especially if not getting better [facility] Work Phone: Hospital Discharge instructions Additional Instructions Return for new or worsening symptoms [facility] doctor [facility] Work Phone: Hospital Discharge instructions Additional Instructions Please return to emergency department for any new or worrisome symptoms including any weakness, numbness, headache, vision changes. Follow-up with your family physician as soon as possible.[facility] Work Phone: Hospital Discharge instructions No data available for this section [facility] InstructionsNot on filedocumented in this encounter [facility] No data available for this section [facility] Discharge Instructions * Attachments The following attachments cannot be sent through Care Everywhere. * Tendon Injury (Tendinopathy) ([place] Islander) documented in this encounter* Instructions* Lobito Sidhu [...] Everywhere. * Coronavirus Disease (COVID-19): General Info ([place] Islander) * Coronavirus Disease (COVID-19): Isolation ([place] Islander) documented in this encounter* Instructions* Bambi Segal RN - 02/07/2019 Learning About Ileus What is ileus? Ileus (say NASEEM-ee-us ) is a blockage of the bowel [...] Where can you learn more? Go to [email or web address] and sign in to your [email or web address] account. Enter M933 in the Search Health Information box to learn more about Learning About Ileus. If you do not have an account, please click on the Sign Up Now link. Current as of: January 17, 2018 Content Version: 12.1 [employer]. Care instructions adapted under license by [employer]. If youhave questions about a medical condition or this instruction, always ask your healthcare professional. [employer] disclaims any warranty or liability for your use of this information. 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 Advance Directives and Living Will Power of Ground Crewman Mission Support Latest Code Status on File Code Status Date Activated Date Inactivated Comments Full Code 02/05/2019 9:40 PM 02/07/2019 3:36 PM Full Code 06/22/2016 5:58 AM 06/22/2016 7:53 PM Documents on File Type Date Recorded 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 Internal Medicine Discharge Summary Patient ID: Lawson Lopez [id number] Admission date: 02/05/2019 Discharge date: 02/07/2019 [...] Discharge Medications: Lawson Lopez Home Medication Instructions [id number] Printed on:02/07/19 1147 Medication Information amLODIPine (NORVASC) 5 MG tablet Take 1 tablet by mouth daily Patient Instructions: Activity: activity as tolerated Diet: regular diet Wound Care: none needed Follow up with [facility] in 1-2 weeks CORE MEASURES on Discharge (if applicable) DORCAS/ARB in CHF: N/A ASA in [place]: N/A Statin in [place]: N/A Statin in CVA: N/A Antiplatelet in CVA: N/A Total time spent on discharge services: 25 minutes Including the following activities: Evaluation and Management of patient Discussion with patient and/or surrogate about current care plan Coordination with Case Management and/or Laboratory Inspector Coordination of care with Consultants (if applicable) [...] Jean Baptiste, orders received. Pharmacy updated. Megan Cheng RN - 02/06/2019 1:36 PM EST Patient [...] of care. To: __Dr. Jean Baptiste From: [facility] Sender:_KSchwochowRN Phone Number:_[phone] This request is: Urgent - No Information [...] fax. Thank you. Signature Date Time Jamir Deluca, MAIL ROOM, TEST EXAMINER - 02/06/2019 10:51 AM EST Social Work intial Assessment/Discharge Plan Diagnosis: Abdominal pain with Lleus Met with: Patient PCP: None. Chose [facility] Payment Source: Private. No insurance. Advance Directives: None Code Status: Full Mental Status: Alert and oriented Living Arrangement: Patient lives at home in [place] with a roommate Support Systems: Roommate and [...] Needs/Discharge Plan: Patient will return home to [place] where he resides with a roommate. He states that he is able to support himself through employment. This patient does not anticipate any needs at this point. * Rancho Nguyen, CALLUM, LD - 02/06/2019 8:10 AM EST Nutrition [...] 5. Fluid Accumulation-No significant fluid accumulation, 6. Customs Compliance Manager Strength-Not measured Nutrition Risk Level: Moderate Nutrient Needs: Estimated Daily Total Kcal: 5449-0569(12-17) Estimated Daily Protein (g): 95-109(1.3-1.5) Estimated Daily [...] Weight Change: , 2% loss from 290# [place] Body Wt: 160 lb (72.6 kg), % [place] Body 178% BMI Classification: BMI > or [...] Patient/Family Education, Monitor Bowel Function Contact Number: [id number] * Marija Plummer RN - 02/06/2019 4:31 AM EST Pt ambulates around room as needed, lets needs be known, resting in bed with eyes closed and resp. Unlabored at this time * Marija Plummer RN - 02/06/2019 12:45 [...] oriented to room, pr watching tv when psychiatric tech left room documented in this encounter Chief Complaint and Reason for Visit Chief Complaint chest congestion Chief Complaint chest congestion rt wrist pain ico luis rich Chief Complaint chest congestion rt wrist pain ico luis rich Rt wrist pain Chief Complaint chest congestion rt wrist pain ico luis rich Rt wrist pain rt wrist injury Chief Complaint dizzy , nausea hit h ead ico @janelle rich 08/17 numbness in hands/face Summary Purpose Family History No Family History Records FoundNo Family History Records FoundNo Family History Records FoundNo Family History Records Found No data available for this section No Family History Records Found Additional Source Comments [...] FAMILY Primary Care Provider Active Jenelle Judge [facility] Emergency Provider Active Team Status: Inactive Member Role Status Dates PHYSICIAN NO FAMILY Primary Care Provider Active Elian Elizondo APRN Emergency Provider Active Team Status: Active Member Role Status Dates PHYSICIAN NO FAMILY Primary Care Provider Active Team Status: Active Member Role Status Dates TERESA HyltonC Primary Care Provider Active Team Status: Inactive Member Role Status Dates PHYSICIAN NO FAMILY Primary Care Provider Active Kris Narvaez DO Emergency Provider Active Team Status: Inactive Member Role Status Dates Isabel J Rodas , LEARNING COORDINATOR-C Primary Care Provider Active Socorro Osullivan MD Emergency Provider Active Emissions Engineer Relationship Specialty Start Date End Date Isabel Rodas, AUTOMATIC MOLD SANDER-FIBERGLASS INSULATION INSTALLER [address] [place] [id number] PCP - General Family Medicine 10/04/22 Goals (unrecognized section and content) Goals may be documented in a n alternate sectionGoals may be documented in an alternate sectionGoals may be documented in an alternate sectionGoals may be documented in an alternate sectionGoals may be documented in an alternate sectionNot on filedocumented as of this encounter No data available for this section (unrecognized sect ion and content) No Status Records FoundNo Status Records FoundNo Status Records FoundNo Status Records FoundNo Status Records Found INFORMATION SOURCE (unrecogn ized section and content) DATE CREATED AUTHOR 05/17/2022 [facility] DATE CREATED AUTHOR AUTHOR'S ORGANIZ ATION 07/06/2023 [facility] DATE CREATED AUTHOR AUTHOR'S ORGANIZ ATION 05/11/[address] [facility] DATE CREATED AUTHOR AUTHOR'S ORGANIZ ATION 06/23/2024 [facility] DATE CREATED AUTHOR AUTHOR'S ORGANIZ ATION 06/27/2024 [facility] FOR RECORDS PERTAINING TO PATIENTS WHO ARE [...] BE BASED ON THE PRIMARY CLINICAL RECORDS. [employer] provides no warranty or guarantee of the accuracy or completeness of information in this document.
[2024-06-27 12:34] LABS: Anion Gap 11.7; BUN Creatinine Ratio 9.5; Calcium 9.5 mg/dL (8.5-10.1); Carbon Dioxide 31.3 mmol/L (21.0-32.0); Chloride 101 mmol/L (98-107); Chol HDL Ratio 5.9; Cholesterol 247 mg/dL (<=200); Estimated GFR (African America >60 (>=60 mL/min/1.73m^2); Estimated GFR (Non-African Ame >60 (>=60 mL/min/1.73m^2); Glucose 129 mg/dL (74-106); HDL Cholesterol 42 mg/dL (40-60); Sodium 140 mmol/L (136-145); Triglycerides 211 mg/dL (<=150); VLDL CHOLESTEROL 42.2 mg/dL
== END 2024-06-27 11:04 | disposition home or self-care (01) ==
LOC: LAB 11:04
PROVIDERS: PCP Nurse Practitioner
DX: E78.2 Mixed hyperlipidemia (principal); I50.21 Acute systolic (congestive) heart failure
CPT/HCPCS: 36415; 80048; 80061

== ENCOUNTER 2024-07-01 11:35 | Day surgery (SDC) | payer OTHER, SELFPAY ==
[2024-06-21 09:46] VITALS: BP 165/104; PULSE 103; TEMP 36.3; O2SAT 95; BMI 43.0
[2024-07-01] VITALS (11 sets, daily range): BP systolic 146–173; BP diastolic 97–115; PULSE 95–113; TEMP 36.2–36.7; O2SAT 91–99; BMI 45.2
[2024-07-01 11:43] LABS: Basophils Absolute Auto 0.1 10^3/uL (0.0-0.1); Basophils Percent Auto 0.8 % (0.2-2.0); Eosinophils Absolute Auto 0.3 10^3/uL (0.0-0.7); Eosinophils Percent Auto 3.7 % (0.9-7.0); Hematocrit 43.9 % (42.0-54.0); Hemoglobin 15.3 g/dL (14.0-18.0); Immature Granulocytes Abs Auto 0.05 10^3/uL (0.00-0.03); Immature Granulocytes Pct Auto 0.6 % (0.0-0.5); Lymphocytes Absolute Auto 2.3 10^3/uL (1.2-3.8); Lymphocytes Percent Auto 26.2 % (20.5-60.0); Mean Corpuscular HGB Conc 34.9 g/dL (29.9-35.2); Mean Corpuscular Hemoglobin 30.9 pg (25.9-34.0); Mean Corpuscular Volume 88.7 fL (80.0-94.0); Mean Platelet Volume 10.2 fL (9.5-13.5); Monocytes Absolute Auto 0.9 10^3/uL (0.3-0.8); Monocytes Percent Auto 9.9 % (1.7-12.0); Neutrophils Absolute Auto 5.2 10^3/uL (1.4-6.5); Neutrophils Percent Auto 58.8 % (43.0-75.0); Platelet Count 214 10^3/uL (150-450); Red Blood Count 4.95 10^6/uL (4.70-6.10); Red Cell Distribution Width 12.3 % (11.0-15.0); White Blood Count 8.9 10^3/uL (4.0-11.0)
[2024-07-01] MEDS: LACTATED RINGER'S SOLUTION 1,000 ML 50 ML IV (12:09)
[2024-07-01] MEDS: CEFAZOLIN SODIUM 2 GM/50 ML D5W PREMIX IV (13:00)
[2024-07-01] MEDS: BUPIVACAINE HCL 0.5% PF 50 MG/10 ML VIAL 20 ML INJ (13:47)
[2024-07-01] MEDS: LIDOCAINE HCL 1%-EPINEPHRINE 1:100,000 20 ML MDV 10 ML INJ (13:47)
--- NOTE | 2024-07-01 14:12 | PM.ORPRC ---
Procedure Note Date of procedure: 07/01/24 Pre-op diagnosis: Right knee chondromalacia Post-op diagnosis: same as pre-op Procedure: Operative procedure: Right knee chondroplasty trochlear groove and medial femoral condyle Detailed description of procedure: After informed consent was obtained the patient was brought to the operating room where a general anesthetic was administered. Exam under anesthesia the right knee revealed full range of motion no instability. The right leg was prepped and draped in usual sterile fashion. Diagnostic arthroscopy was performed through standard anteromedial and anterolateral arthroscopy portals. Findings included chondromalacia the patellofemoral compartment. There was focal grade 3 and grade IV chondromalacia of the central strip of the trochlear groove with unstable articular cartilage flaps which was debrided with arthroscopic shaver back to stable edge. Diffuse grade II and III chondromalacia patella without unstable articular cartilage flaps. The medial compartment medial meniscus was visualized and probed and was normal. Medial femoral condyle had a articular cartilage flap that was unstable which was debrided with the arthroscopic shaver back to stable edge. This was in a 2 x 2 cm area of grade III chondromalacia. Articular cartilage the medial tibial plateau was intact. In the notch the ACL and PCL were intact. In the lateral compartment the lateral meniscus was intact as was the articular cartilage. The joint was drained of arthroscopy fluid. Portals were closed with observable suture. The joint was infiltrated with 20 mL 0.5% Marcaine plain combined with 10 mL 1% lidocaine with epinephrine. Steri-Strips and sterile dressing were placed. Patient was awakened and brought to the recovery room in stable condition. There were no intraoperative or immediate postoperative complications. Anesthesia: General-LMA Surgeon: Chandu Matos Estimated blood loss (mL): 10 Pathology: none sent Condition: stable Disposition: PACU
[2024-07-01] MEDS: TRAMADOL HCL 50 MG TABLET PO (14:26)
== END 2024-07-01 15:10 | disposition home or self-care (01) ==
PROVIDERS: PCP Nurse Practitioner; Visit Provider Orthopaedic Surgery
PROC: (CPT 1400; principal; 2024-07-01 12:55)
DX: M94.261 Chondromalacia, right knee (principal); M25.561 Pain in right knee; I10 Essential (primary) hypertension; I25.10 Atherosclerotic heart disease of native coronary artery without angina pectoris; Z87.891 Personal history of nicotine dependence; E78.5 Hyperlipidemia, unspecified; K21.9 Gastro-esophageal reflux disease without esophagitis; F14.11 Cocaine abuse, in remission
CPT/HCPCS: 29877; 36415; 85025; J0665; J0690; J1885; J2405; J2704; J3010

== ENCOUNTER 2024-07-20 07:46 | Emergency (ER) | payer OTHER, SELFPAY ==
[2024-07-20 07:52] VITALS: BP 179/110; PULSE 124; TEMP 37.2; O2SAT 95; BMI 41.6
--- OUTSIDE RECORDS SUMMARY | 2024-07-20 07:54 | XMS_ITS | CCD ---
Demographics Address [address] [place] [address] Home Phone Preferred Language en Marital Status Single Taoism Affiliation Unknown Race Unknown Ethnic Group Not or Lati no Author Organization [facility] Care Team Providers Care Technician Assistant Name Role Phone Unavailable Primary Care Provider Unavailabl e Carina Hernandez Primary Care Provider Unavailable Primary Care Provider Unavailabl e NO FAMILY, PHYSICIAN Primary Care Provider Unava ARSALAN Kamara Emergency Provider [phone] [facility] Emergency Provider MEENAKSHI Schmidt Emergency Provider NO FAMILY, PHYSICIAN Primary Care Provider Unava ARSALAN Kamara Emergency Provider Al[facility] Emergency Provider MEENAKSHI Schmidt Emergency Provider REQUEST, DR NONE LISTED Primary Care Unavaila ble KATE ALVAREZ Admitting Unavailable KATE ALVAREZ Attending Unavailable KATE ALVAREZ Consulting Unavailable AMAN PURCELL Consulting Unavailable REQUEST, NONE LISTED Primary Care Unavaila ble JESUS ., JOSEFINA Admitting Unavailable JESUS .DEVANID Attending Unavailable LIDIA .JOHANNY Consulting Unavailabl e [place], James Consulting Unavailable NO FAMILY, PHYSICIAN Primary Care Provider Unava ilDO Kris Muse Emergency Provider MARIEL Rodas Primary Care Provider MD Socorro Osullivan Emergency Provider Clark ASSOCIATE PROFESSOR OF BIBLICAL STUDIES-Isabel PORTILLO Primary Care Provid er Med Koenig Admitting Unavailable Isabel Rodas Primary Care Unavailable Med Koenig Attending Unavailable Jenelle Judge Attending Unavailable Jenelle Judge Admitting Unavailable Isabel Rodas Primary Care Unavailable Tal ALVAREZ Primary Care Physician MARK MORTON Attending Unavailable MARK MORTON Attending Unavailable MD Krishan Holland Consulting Unavailable MARK MORTON Admitting Unavailable MARK MORTON Attending Unavailable MARK MORTON Referring Unavailable Krishan Holland Consulting Unavailable Krishan Holland Consulting Unavailable Allergies Allergy Classification Reported Allergen(s) Allergy Type Date of Onset Reaction(s) Facility (13 sources) Amoxicillin; Translations: [amoxicillin] Drug Allergy 6 Unknown (qualifier value) [place], [place] (6 sources) fentaNYL; Translations: [FENTANYL] Drug Allergy 9 [place], [place] (13 sources) predniSONE; Translations: [prednisone] Drug Allergy 6 Other (See Comments) [place] (1 source) Amoxicillin Drug Allergy 3 [facility] Repository (1 source) predniSONE Drug Allergy 3 [facility] Repository (1 source) Amoxicillin Drug Allergy 4 [facility] Repository (1 source) predniSONE Drug Allergy 4 [facility] Repository (1 source) amLODIPine; Translations: [AMLODIPINE] Drug Allergy 3 [facility] Repository Medications Current Medications Medication Drug Class(es) [...] Onset: 02-27-2024 Episodic Congestive heart failure; nonhypertensive (4 sources) Acute on chronic diastolic (congestive) heart failure; Translations: [Acute systolic (congestive) [...] Interpretation Reference Range Facil ity Office Visiton 06-26-2024 Follow-up visit [id number] Lawson Lopez 1980 [facility] Provider Department Center 06/26/2024 MARK SHORT Family History Problem Relation Age of Onset No Known Problems Mother No Known Problems Father No Known Problems Brother Coronary artery disease Mother's Brother Peripheral vascular disease Mother's Brother Family Status - Relation Status Age at Mother Alive Father Alive Brother Alive Mother's Brother Level of Service:43473 SC OFFICE/OUTPATIENT ESTABLISHED LOW MDM 20 MIN Normal [facility] Office Visiton 06-21-2024 Follow-up visit [id number] Lawson Lopez 1980 [facility] Provider Department Center 06/21/2024 MARK SHORT Family History Problem Relation Age of Onset No Known Problems Mother No Known Problems Father No Known Problems Brother Coronary artery disease Mother's Brother Peripheral vascular disease Mother's Brother Family Status - Relation Status Age at Mother Alive Father Alive Brother Alive Mother's Brother Level of Service:55650 SC OFFICE/OUTPATIENT ESTABLISHED MOD MDM 30 MIN Normal [facility] Basic Metabolic Panelon 02-10 Anion gap [Moles/Vol] 12.9 mmol/L Normal 6.0-15.0 [facility] Comment on above: Performed By: #### C BC, BMP, PTT, PT, HS TROP #### [facility] [address] [place] [address] Calcium [Mass/Vol] 9.2 mg/dL Normal 8.6-10.3 [facility] Comment on above: Performed By: #### C BC, BMP, PTT, PT, HS TROP #### [facility] [address] [place] [address] [place] Chloride [Moles/Vol] 103 mmol/L Normal 98-107 [facility] Comment on above: Performed By: #### C BC, BMP, PTT, PT, HS TROP #### [place] [address] [place] CO2 [Moles/Vol] 26.4 mmol/L Normal 21.0-31.0 [facility] Comment on above: Performed By: #### C BC, BMP, PTT, PT, HS TROP #### [place] [address] [place] Creatinine [Mass/Vol] 0.89 mg/dL Normal 0.70-1.30 [facility] Comment on above: Performed By: #### C BC, BMP, PTT, PT, HS TROP #### [place] [address] [place] Creatinine Clr Calc Pharmacy 140.18 Normal [facility] Comment on above: Result Comment: PERF ORMED BY: [place] [address] PATHOLOGIST NEGATIVE SPOTTER FRANK ARAUJO M.D. Performed By: #### C BC, BMP, PTT, PT, HS TROP #### [place] [address] [place] GFR/1.73 sq M.predicted MDRD (S/P/Bld) [Vol rate/Area] mL/min/{1.73_m2} Normal [facility] Comment on above: Performed By: #### C BC, BMP, PTT, PT, HS TROP #### [place] [address] [place] Glucose [Mass/Vol] 108 mg/dL High 70-100 [facility] Comment on above: Result Comment: [place] Glucose Reference Range is dependent on time and content of last meal. Glucose of more than 200 mg/dL in a nonstressed, ambulatory subject supports the diagnosis of Diabetes Mellitus. ADA recommended reference range Performed By: #### C BC, BMP, PTT, PT, HS TROP #### [facility] [address] Potassium [Moles/Vol] 4.3 mmol/L Normal 3.5-5.1 [facility] Comment on above: Performed By: #### C BC, BMP, PTT, PT, HS TROP #### [facility] [address] [place] [address] [place] Sodium [Moles/Vol] 138 mmol/L Normal 136-145 [facility] Comment on above: Performed By: #### C BC, BMP, PTT, PT, HS TROP #### [facility] [address] [place] [id number] [place] Urea nitrogen [Mass/Vol] 10 mg/dL Normal 7-25 [facility] Comment on above: Performed By: #### C BC, BMP, PTT, PT, HS TROP #### [facility] [address] angio neckon 02-27-2024 CT angio neck [facility] [place] [address] CT Scan Report Signed Patient: Lawson Lopez MR#: [id number] 168 : 1980 Acct:[id number] Age/Sex: 44 / M ADM Date: 02/27/24 Loc: ER Room: Type: [facility] ER Attending Dr: Copies to: Med Koenig DO Ordering Provider: Med Koenig DO Date of Service: 02/27/24 CT/CT head/brain wo con: r/o post circ stroke ([id number]) CT/CT angio neck: r/o post circ stroke ([id number]) CT/CT angio head: r/o post circ stroke [...] patent Posterior cerebral arteries: patent. 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 Intracranial segments of the internal carotid arteries: [...] occlusion. Impression dictated by: Wayne Anguiano Jr., DDomitilaODomitila02/27/2024 9:42 AM Dictation Location: [place] [address] Transcribed By: [facility] 02/27/24 0942 Dictated By: Wayne Anguiano Jr, DO 02/27/24 0938 Signed By: 02/27/24 0942 Normal [facility] Complete Blood Count Auto Di ffon 02-27-2024 Basophils (Bld) [#/Vol] 0.1 10*3/uL Normal 0.0-0.2 [facility] Comment on above: Result Comment: PERF ORMED BY: [facility] [address] [place] [address] PATHOLOGIST NEGATIVE SPOTTER FRANK ARAUJO M.D. Performed By: #### C BC, BMP, PTT, PT, HS TROP #### [address] Basophils/100 WBC (Bld) 1.1 % Normal . [facility] Comment on above: Performed By: #### C BC, BMP, PTT, PT, HS TROP #### [address] Eosinophils (Bld) [#/Vol] 0.2 10*3/uL Normal 0.0-0.45 [facility] Comment on above: Performed By: #### C BC, BMP, PTT, PT, HS TROP #### [address] Eosinophils/100 WBC (Bld) 2.7 % Normal . [facility] Comment on above: Performed By: #### C BC, BMP, PTT, PT, HS TROP #### [address] Erythrocyte distribution width (RBC) [Ratio] 12.9 % Normal 12.0-14.8 [facility] Comment on above: Performed By: #### C BC, BMP, PTT, PT, HS TROP #### [address] Hematocrit (Bld) [Volume fraction] 46.1 % Normal 38.8-50.0 [facility] Comment on above: Performed By: #### C BC, BMP, PTT, PT, HS TROP #### [address] Hemoglobin (Bld) [Mass/Vol] 16.0 g/dL Normal 13.0-17.0 [facility] Comment on above: Performed By: #### C BC, BMP, PTT, PT, HS TROP #### [address] Lymphocytes (Bld) [#/Vol] 1.9 10*3/uL Normal 1.00-4.8 [facility] Comment on above: Performed By: #### C BC, BMP, PTT, PT, HS TROP #### [address] Lymphocytes/100 WBC (Bld) 22.3 % Normal . [facility] Comment on above: Performed By: #### C BC, BMP, PTT, PT, HS TROP #### [address] MCH (RBC) [Entitic mass] 30.7 pg Normal 27.5-35.2 [facility] Comment on above: Performed By: #### C BC, BMP, PTT, PT, HS TROP #### [address] MCV (RBC) [Entitic vol] 88.3 fL Normal 83.5-101 [facility] Comment on above: Performed By: #### C BC, BMP, PTT, PT, HS TROP #### [address] Mean Corpuscular HGB Conc 34.8 g/dL Normal 32.5-35.6 [facility] Comment on above: Performed By: #### C BC, BMP, PTT, PT, HS TROP #### [place] [address] [place] Monocytes (Bld) [#/Vol] 0.7 10*3/uL Normal 0.0-0.8 [facility] Comment on above: Performed By: #### C BC, BMP, PTT, PT, HS TROP #### [place] [address] [place] Monocytes/100 WBC (Bld) 19.04 % Normal 0.00-20.00 [facility] Comment on above: Performed By: #### C BC, BMP, PTT, PT, HS TROP #### [place] [address] [place] Monocytes/100 WBC (Bld) 8.7 % Normal . [facility] Comment on above: Performed By: #### C BC, BMP, PTT, PT, HS TROP #### [place] [address] [place] Neutrophils (Bld) [#/Vol] 5.5 10*3/uL Normal 1.8-7.7 [facility] Comment on above: Performed By: #### C BC, BMP, PTT, PT, HS TROP #### [facility] [address] Neutrophils/100 WBC (Bld) 65.2 % Normal . [facility] Comment on above: Performed By: #### C BC, BMP, PTT, PT, HS TROP #### [facility] [address] NRBC% 0.2 /100{WBC} Normal 0-0.5 [facility] Comment on above: Performed By: #### C BC, BMP, PTT, PT, HS TROP #### [facility] [address] Platelet mean volume (Bld) [Entitic vol] 8.8 fL Normal 6.6-10.1 [facility] Comment on above: Performed By: #### C BC, BMP, PTT, PT, HS TROP #### [place] [address] [place] Platelets (Bld) [#/Vol] 230 10*3/uL Normal 150-450 [facility] Comment on above: Performed By: #### C BC, BMP, PTT, PT, HS TROP #### [place] [address] [place] RBC (Bld) [#/Vol] 5.22 10*6/uL Normal 3.90-5.60 [facility] Comment on above: Performed By: #### C BC, BMP, PTT, PT, HS TROP #### [facility] [address] [place] [address] [place] WBC (Bld) [#/Vol] 8.5 10*3/uL Normal 4.1-10.5 [facility] Comment on above: Performed By: #### C BC, BMP, PTT, PT, HS TROP #### [address] ECG 12 lead ECG 02-27-2024 ECG 12 lead ECG [facility] Main [place] [address] [place], [place] [id number] Electrocardiograph Report Signed Patient: Lawson Lopez MR#: [id number] 168 : 1980 Acct:[id number] Age/Sex: 44 / M ADM Date: 02/27/24 Loc: ER Room: Type: [facility] ER Attending Dr: Ordering Provider: Med [...] fascicular block Confirmed by Med Koenig DO ([id number]) on 02/27/2024 3:20:31 PM Referred By: Electronically Signed By: Med Koenig DO Transcribed By: MUS Signed By Med Koenig DO 1520 Normal [facility] Partial Thromboplastin Timeo n 02-27-2024 aPTT Coag (Bld) [Time] 29.9 s Normal 25.1-36.5 [facility] Comment on above: Result Comment: A he matocrit value greater than 55% may lead to inaccurate results in coagulation testing. Patients having hematocrit values >55% require a special collection tube for coagulation studies. Please contact the laboratory at [phone] for redraw instructions. PERFORMED BY: [place] [address] PATHOLOGIST NEGATIVE SPOTTER FRANK ARAUJO M.D. Performed By: #### C BC, BMP, PTT, PT, HS TROP #### [place] [id number] [facility] Prothrombin Time INRon 02-26 INR Coag (PPP) [Relative time] 0.9 {INR} Normal [facility] Comment on [...] BC, BMP, PTT, PT, HS TROP #### [address] PT Coag (PPP) [Time] 10.8 s Normal 9.0-12.9 [facility] Comment on above: Result Comment: A he matocrit value greater than 55% may lead to inaccurate results in coagulation testing. Patients having hematocrit values >55% require a special collection tube for coagulation studies. Please contact the laboratory at [phone] for redraw instructions. Performed By: #### C BC, BMP, PTT, PT, HS TROP #### [address] Troponin I High Sensitivityo n 02-27-2024 Troponin I High Sensitivity 12.7 pg/mL Normal 0.0-20.0 [facility] Comment on above: Result Comment: PERF ORMED BY: [place] [address] PATHOLOGIST NEGATIVE SPOTTER FRANK ARAUJO M.D. Performed By: #### C BC, BMP, PTT, PT, HS TROP #### [place] [id number] [facility] Urinalysison 02-27-2024 Appearance (U) Clear Normal Clear [facility] Comment on above: Order Comment: Name Collection Type:: Clean-Voided Midstream Performed By: #### U A #### [place] [id number] [place] Bilirubin,Urine Negative Normal Negative [facility] Comment on above: Order Comment: Name Collection Type:: Clean-Voided Midstream Performed By: #### U A #### [address] Color (U) Light-Yellow Normal Yellow [facility] Comment on above: Order Comment: Name Collection Type:: Clean-Voided Midstream Performed By: #### U A #### [address] Glucose Ql (U) Normal Normal Normal [facility] Comment on above: Order Comment: Name Collection Type:: Clean-Voided Midstream Performed By: #### U A #### [address] Ketones Ql (U) Negative Normal Negative [facility] Comment on above: Order Comment: Name Collection Type:: Clean-Voided Midstream Performed By: #### U A #### [address] Leukocyte esterase Test strip Ql (U) Negative Normal Negative [facility] Comment on above: Order Comment: Name Collection Type:: Clean-Voided Midstream Performed By: #### U A #### [place] [address] [place] Nitrite,Urine Negative Normal Negative [facility] Comment on above: Order Comment: Name Collection Type:: Clean-Voided Midstream Performed By: #### U A #### [place] [address] [place] Occult Blood,Urine Negative Normal Negative [facility] Comment on above: Order Comment: Name Collection Type:: Clean-Voided Midstream Result Comment: PERF ORMED BY: [place] [address] PATHOLOGIST NEGATIVE SPOTTER FRANK ARAUJO M.D. Performed By: #### U A #### [place] [address] [place] pH (U) 5.5 [pH] Normal 5.0-9.0 [facility] Comment on above: Order Comment: Name Collection Type:: Clean-Voided Midstream Performed By: #### U A #### [place] [address] [place] Protein,Urine Negative Normal Negative [facility] Comment on above: Order Comment: Name Collection Type:: Clean-Voided Midstream Performed By: #### U A #### [facility] [address] [place] [id number] [facility] Specificy Ceylon,Urine 1.033 High 1.001-1.030 [facility] Comment on above: Order Comment: Name Collection Type:: Clean-Voided Midstream Performed By: #### U A #### [facility] [address] [place] [id number] [facility] Urobilinogen,Urine Normal Normal Normal [facility] Comment on above: Order Comment: Name Collection Type:: Clean-Voided Midstream Performed By: #### U A #### [facility] [address] [place] [address] XR chest 1V portableon 02-26 XR chest 1V portable [facility] [address] XRay Report Signed Patient: Lawson Lopez MR#: [id number] 168 : 1980 Acct:[id number] Age/Sex: 44 / M ADM Date: 02/27/24 [...] Anguiano Jr., D.O.02/27/2024 8:28 AM Dictation Location: [place] [address] Transcribed By: [facility] 02/27/24827 Dictated By: Wayne Anguiano Jr, DO 02/27/24827 Signed By: 02/27/24827 Normal [facility] XR foot RT min 3V*on 024 XR foot RT min 3V* [facility] [address] XRay Report Signed Patient: Lawson Lopez MR#: [id number] 168 : 1980 Acct:[id number] Age/Sex: 44 / M ADM Date: 02/15/24 Loc: ER Room: Type: [facility] ER Attending Dr: Copies to: GRISELDA [...] Tejinder Alcantara M.D.02/15/2024 12:47 PM Dictation Location: [place] [address] Transcribed By: [facility] 02/15/24 1247 Dictated By: Tejinder Alcantara DO 02/15/24 1245 Signed By: 02/15/24 1247 Normal [facility] CBC with Diffon 07-04-2023 Abs. Basophil 0.06 k/uL Normal 0.00-0.20 [facility] Comment on above: Performed By: #### C RAMÓN MELTON, CP #### [facility] [address] [place] [address] Home Fire Alarm Installer: Alex Amador MD Abs.Imm.Granulocyte 0.03 k/uL Normal 0.00-0.30 [facility] Comment on above: Performed By: #### C RAMÓN MELTON, CP #### [facility] [address] [place] [address] Home Fire Alarm Installer: Alex Amador MD Abs.Neutrophil (Seg) 7.00 k/uL Normal 1.50-8.10 [facility] Comment on above: Performed By: #### C RAMÓN MELTON, CP #### [facility] [address] [place] [address] Home Fire Alarm Installer: Alex Amador MD Basophils/100 WBC (Bld) 1 % Normal 0-2 [facility] Comment on above: Performed By: #### C DP, LIP, CP #### [address] [place] [address] Home Fire Alarm Installer: Alex Amador MD Eosinophils (Bld) [#/Vol] 0.17 10*3/uL Normal 0.00-0.44 [facility] Comment on above: Performed By: #### C DP, LIP, CP #### [address] [place] [address] Home Fire Alarm Installer: Alex Amador MD Eosinophils/100 WBC (Bld) 2 % Normal 1-4 [facility] Comment on above: Performed By: #### C DP, LIP, CP #### [address] [place], [facility] Home Fire Alarm Installer: Alex Amador MD Erythrocyte distribution width (RBC) [Ratio] 12.4 % Normal 11.8-14.4 [facility] Comment on above: Performed By: #### C DP LIP, CP #### [address] [place], [place] [id number] Home Fire Alarm Installer: Alex Amador MD Hematocrit (Bld) [Volume fraction] 44.6 % Normal 40.7-50.3 [facility] Comment on above: Performed By: #### C DP, LIP, CP #### [address] [place], [place] [id number] Home Fire Alarm Installer: Alex Amador MD Hemoglobin (Bld) [Mass/Vol] 15.5 g/dL Normal 13.0-17.0 [facility] Comment on above: Performed By: #### C DP, LIP, CP #### [address] [place] [address] Home Fire Alarm Installer: Alex Amador MD Immature granulocytes/100 WBC (Bld) 0 % Normal 0 [facility] Comment on above: Performed By: #### C LINH LIP, CP #### [facility] [address] [place], [place] [id number] Home Fire Alarm Installer: Alex Amador MD Lymphocytes (Bld) [#/Vol] 1.59 10*3/uL Normal 1.10-3.70 [facility] Comment on above: Performed By: #### C LINH LIP, CP #### [facility] [address] [place], [place] [id number] Home Fire Alarm Installer: Alex Amador MD Lymphocytes/100 WBC (Bld) 17 % Low 24-43 [facility] Comment on above: Performed By: #### C LINH LIP, CP #### [address] [place], [facility] Home Fire Alarm Installer: Alex Amador MD MCH (RBC) [Entitic mass] 30.3 pg Normal 25.2-33.5 [facility] Comment on above: Performed By: #### C RAMÓN MELTON, CP #### [address] [place], [facility] Home Fire Alarm Installer: Alex Amador MD MCHC (RBC) [Mass/Vol] 34.8 g/dL Normal 28.4-34.8 [facility] Comment on above: Performed By: #### C LINH LIP, CP #### [address] [place], [facility] Home Fire Alarm Installer: Alex Amador MD MCV (RBC) [Entitic vol] 87.1 fL Normal 82.6-102.9 [facility] Comment on above: Performed By: #### C LINH LIP, CP #### [address] [place], [place] [id number] Home Fire Alarm Installer: Alex Amador MD Monocytes (Bld) [#/Vol] 0.78 10*3/uL Normal 0.10-1.20 [facility] Comment on above: Performed By: #### C DP LIP, CP #### [facility] [address] [place] [address] Home Fire Alarm Installer: Alex Amador MD Monocytes/100 WBC (Bld) 8 % Normal 3-12 [facility] Comment on above: Performed By: #### C DP, LIP, CP #### [facility] [address] [place], [place] [address] Home Fire Alarm Installer: Alex Amador MD Neutrophil (Seg) 72 % High 36-65 [facility] Comment on above: Performed By: #### C LINH LIP, CP #### [address] [place], [place] [id number] Home Fire Alarm Installer: Alex Amador MD NRBC Automated 0.0 per 100 WBC Normal 0.0 [facility] Comment on above: Performed By: #### C DP LIP, CP #### [address] [place], [facility] Home Fire Alarm Installer: Alex Amador MD Platelet mean volume (Bld) [Entitic vol] 10.4 fL Normal 8.1-13.5 [facility] Comment on above: Performed By: #### C LINH LIP, CP #### [address] [place], [place] [address] Home Fire Alarm Installer: Alex Amador MD Platelets (Bld) [#/Vol] 239 10*3/uL Normal 138-453 [facility] Comment on above: Performed By: #### C DP LIP, CP #### [address] [place], [place] [id number] Home Fire Alarm Installer: Alex Amador MD RBC (Bld) [#/Vol] 5.12 10*6/uL Normal 4.21-5.77 [facility] Comment on above: Performed By: #### C DP, LIP, CP #### [facility] [address] [place] [address] Home Fire Alarm Installer: Alex Amador MD WBC (Bld) [#/Vol] 9.6 10*3/uL Normal 3.5-11.3 [facility] Comment on above: Performed By: #### C DP, LIP, CP #### [facility] [address] [place] [address] Home Fire Alarm Installer: Alex Amador MD Comp Metabolic Profon 2023 Albumin [Mass/Vol] 4.4 g/dL Normal 3.5-5.2 [facility] Comment on above: Performed By: #### C DP, LIP, CP #### [facility] [facility] [address] [place] [address] [employer] Fire Alarm Installer: Alex Amador MD Albumin/Glob Ratio 1.2 Normal 1.0-2.5 [facility] Comment on above: Performed By: #### C DP, LIP, CP #### [address] [place], [place] [id number] Home Fire Alarm Installer: Alex Amador MD Alkaline Phos 103 U/L Normal 40-129 [facility] Comment on above: Performed By: #### C DP, LIP, CP #### [facility] [address] [place] [address] [place] [address] [employer] Fire Alarm Installer: Alex Amador MD ALT [Catalytic activity/Vol] 30 U/L Normal 5-41 [facility] Comment on above: Performed By: #### C DP, LIP, CP #### [facility] [address] [place], [place] [id number] Home Fire Alarm Installer: Alex Amador MD Anion gap [Moles/Vol] 10 mmol/L Normal 9-17 [facility] Comment on above: Performed By: #### C DP, LIP, CP #### [facility] [address] [place] [id number] [employer] Fire Alarm Installer: Alex Amador MD AST [Catalytic activity/Vol] 21 U/L Normal <40 [facility] Comment on above: Performed By: #### C DP, LIP, CP #### [facility] [address] [place], [place] [id number] Home Fire Alarm Installer: Alex Amador MD Bilirubin [Mass/Vol] 0.7 mg/dL Normal 0.3-1.2 [facility] Comment on above: Performed By: #### C DP, LIP, CP #### [facility] [address] [place], [place] [id number] Home Fire Alarm Installer: Alex Amador MD BUN/CRE Ratio 13 Normal 9-20 [facility] Comment on above: Performed By: #### C DP LIP, CP #### [facility] [address] [place], [place] [id number] Home Fire Alarm Installer: Alex Amador MD Calcium [Mass/Vol] 9.1 mg/dL Normal 8.6-10.4 [facility] Comment on above: Performed By: #### C DP LIP, CP #### [facility] [address] [place], [place] [id number] Home Fire Alarm Installer: Alex Amador MD Chloride [Moles/Vol] 102 mmol/L Normal 98-107 [facility] Comment on above: Performed By: #### C DP LIP, CP #### [facility] [address] [place], [place] [phone] [employer] Fire Alarm Installer: Alex Amador MD CO2 [Moles/Vol] 27 mmol/L Normal 20-31 [facility] Comment on above: Performed By: #### C DP, LIP, CP #### [facility] [address] [place], [place] [phone] [employer] Fire Alarm Installer: Alex Amador MD Creatinine [Mass/Vol] 0.8 mg/dL Normal 0.7-1.2 [facility] Comment on above: Performed By: #### C RAMÓN MELTON, CP #### [address] [place] [address] [employer] Alarm Installer: Alex Amador MD GFR/1.73 sq M.predicted among non-blacks MDRD (S/P/Bld) [Vol rate/Area] mL/min/{1.73_m2} Normal >60 [facility] Comment on above: Result Comment: These results [...] By: #### C RAMÓN MELTON, CP #### [address] [place] [address] Home Fire Alarm Installer: Alex Amador MD Glucose [Mass/Vol] 97 mg/dL Normal 70-99 [facility] Comment on above: Performed By: #### C RAMÓN MELTON, CP #### [address] [place] [address] Home Fire Alarm Installer: Alex Amador MD Potassium [Moles/Vol] 4.2 mmol/L Normal 3.7-5.3 [facility] Comment on above: Performed By: #### C LINH LIP, CP #### [address] [place] [address] [employer] Fire Alarm Installer: Alex Amador MD Protein [Mass/Vol] 8.0 g/dL Normal 6.4-8.3 [facility] Comment on above: Performed By: #### C LINH LIP, CP #### [address] [place] [address] [employer] Fire Alarm Installer: Alex Amador MD Sodium [Moles/Vol] 139 mmol/L Normal 135-144 [facility] Comment on above: Performed By: #### C DP LIP, CP #### [facility] [address] [place] [address] [employer] Fire Alarm Installer: Alex Amador MD Urea nitrogen [Mass/Vol] 10 mg/dL Normal 6-20 [facility] Comment on above: Performed By: #### C DP LIP, CP #### [facility] [address] [place] [address] Home Fire Alarm Installer: Alex Amador MD Lipaseon 07-04-2023 Lipase [Catalytic activity/Vol] 29 U/L Normal 13-60 [facility] Comment on above: Performed By: #### C LINH LIP, CP #### [facility] [address] [place] [address] [employer] Fire Alarm Installer: Alex Amador MD Activated partial thrombopla stin time (aPTT) in platelet poor plasma by coagulation aOrdered By: Socorro Osullivan on 10-11-2022 aPTT Coag (PPP) [Time] 27.7 s 25.1-36.5 [facility] Basophils Auto (Bld) [#/Vol] Ordered By: Socorro Osullivan on 10-11-2022 Basophils (Bld) [#/Vol] 0.1 10*3/uL 0.0-0.2 [facility] Basophils/100 WBC Auto (Bld) Ordered By: Socorro Osullivan on 10-11-2022 Basophils/100 WBC (Bld) 0.9 % . [facility] Calcium [Mass/volume] in Ser um or PlasmaOrdered By: Socorro Osullivan on 10-11-2022 Calcium [Mass/Vol] 9.5 mg/dL 8.6-10.3 [facility] Carbon dioxide, total [Moles /volume] in Serum or PlasmaOrdered By: Socorro Osullivan on 10-11-2022 CO2 [Moles/Vol] 29.1 mmol/L 21.0-31.0 [facility] Chloride [Moles/volume] in S josselin or PlasmaOrdered By: Socorro Osullivan on 10-11-2022 Chloride [Moles/Vol] 102 mmol/L 98-107 [facility] Creatine kinase [Enzymatic a ctivity/volume] in Serum or PlasmaOrdered By: Socorro Osullivan on 10-11-2022 CK [Catalytic activity/Vol] 87 U/L 30-223 [facility] Creatinine [Mass/volume] in Serum or PlasmaOrdered By: Socorro Osullivan on 10-11-2022 Creatinine [Mass/Vol] 0.79 mg/dL 0.70-1.30 [facility] Eosinophils Auto (Bld) [#/Vo l]Ordered By: Socorro Osullivan on 10-11-2022 Eosinophils (Bld) [#/Vol] 0.2 10*3/uL 0.0-0.45 [facility] Eosinophils/100 WBC Auto (Bl d)Ordered By: Socorro Osullivan on 10-11-2022 Eosinophils/100 WBC (Bld) 2.5 % . [facility] Erythrocyte distribution wid th Auto (RBC) [Ratio]Ordered By: Socorro Osullivan on 10-11-2022 Erythrocyte distribution width (RBC) [Ratio] 13.3 % 12.0-14.8 [facility] Glucose [Mass/volume] in Ser um [...] Hematocrit (Bld) [Volume fraction] 40.4 % 38.8-50.0 [facility] Hemoglobin [Mass/volume] in BloodOrdered By: Socorro Osullivan on 10-11-2022 Hemoglobin (Bld) [Mass/Vol] 14.2 g/dL 13.0-17.0 [facility] - CoagulationOrde red By: Socorro Osullivan on 10-11-2022 PT Coag (PPP) [Time] 12.0 s 9.0-12.9 [facility] Leukocytes [#/volume] correc giselle for nucleated erythrocytes in Blood by Automated counOrdered By: Socorro Osullivan on 10-11-2022 WBC corrected for nucl RBC Auto (Bld) [#/Vol] 9.5 10*3/uL 4.1-10.5 [facility] Lymphocytes Auto (Bld) [#/Vo l]Ordered By: Socorro Osullivan on 10-11-2022 Lymphocytes (Bld) [#/Vol] 1.8 10*3/uL 1.00-4.8 [facility] Lymphocytes/100 WBC Auto (Bl d)Ordered By: Socorro Osullivan on 10-11-2022 Lymphocytes/100 WBC (Bld) 18.6 % . [facility] MCH Auto (RBC) [Entitic mass ]Ordered By: Socorro Osullivan on 10-11-2022 MCH (RBC) [Entitic mass] 30.4 pg 27.5-35.2 [facility] MCHC Auto (RBC) [Mass/Vol]Or dered By: Socorro Osullivan on 10-11-2022 MCHC (RBC) [Mass/Vol] 35.1 g/dL 32.5-35.6 [facility] MCV Auto (RBC) [Entitic vol] Ordered By: Socorro Osullivan on 10-11-2022 MCV (RBC) [Entitic vol] 86.6 fL 83.5-101 [facility] Monocyte distribution width [Entitic volume] in Blood by AutomatedOrdered By: Socorro Osullivan on 10-11-2022 Monocyte distribution width Auto (Bld) [Entitic vol] 18.08 % 0.00-20.00 [facility] Monocytes Auto (Bld) [#/Vol] Ordered By: Socorro Osullivan on 10-11-2022 Monocytes (Bld) [#/Vol] 0.7 10*3/uL 0.0-0.8 [facility] Monocytes/100 WBC Auto (Bld) Ordered By: Socorro Osullivan on 10-11-2022 Monocytes/100 WBC (Bld) 7.2 % . [facility] Natriuretic peptide B [Mass/ Vol]Ordered By: Socorro Osullivan on 10-11-2022 Natriuretic peptide B (Bld) [Mass/Vol] 21.0 pg/mL 5-100 [facility] Neutrophils Auto (Bld) [#/Vo l]Ordered By: Socorro Osullivan on 10-11-2022 Neutrophils (Bld) [#/Vol] 6.7 10*3/uL 1.8-7.7 [facility] Neutrophils/100 WBC Auto (Bl d)Ordered By: Socorro Osullivan on 10-11-2022 Neutrophils/100 WBC (Bld) 70.8 % . [facility] No Panel InformationOrdered By: Socorro Osullivan on 10-11-2022 Estimated GFR (CKD-EPI) > 60.0 mL/Min [facility] Creatinine Clearance (Chem 158.41 [facility] Nucleated erythrocytes [Pres ence] in Blood by Automated countOrdered By: Socorro Osullivan on 10-11-2022 Nucleated RBC Auto Ql (Bld) 0.2 /100{WBC} 0-0.5 [facility] Platelet mean volume Auto (B ld) [Entitic vol]Ordered By: Socorro Osullivan on 10-11-2022 Platelet mean volume (Bld) [Entitic vol] 8.0 fL 6.6-10.1 [facility] Platelet poor plasma interna tional normalized ratio (INR) by coagulation assay (relatOrdered By: Socorro Osullivan on 10-11-2022 INR Coag (PPP) [Relative time] 1.0 {INR} [facility] Comment on above: INR Therapeutic [...] 10-11-2022 Platelets (Bld) [#/Vol] 218 10*3/uL 150-450 [facility] Potassium [Moles/volume] in Serum or PlasmaOrdered By: Socorro Osullivan on 10-11-2022 Potassium [Moles/Vol] 3.8 mmol/L 3.5-5.1 [facility] RBC Auto (Bld) [#/Vol]Ordere d By: Socorro Osullivan on 10-11-2022 RBC (Bld) [#/Vol] 4.67 10*6/uL 3.90-5.60 [facility] Serum or plasma anion gap de terminationOrdered By: Socorro Osullivan on 10-11-2022 Anion gap [Moles/Vol] 10.7 mmol/L 6.0-15.0 [facility] Sodium [Moles/volume] in Ser um or PlasmaOrdered By: Socorro Osullivan on 10-11-2022 Sodium [Moles/Vol] 138 mmol/L 136-145 [facility] Troponin I.cardiac [Mass/vol ume] in Serum or Plasma by Detection limit <= 0.01 ng/Ordered By: Socorro Osullivan on 10-11-2022 Troponin I.cardiac DL <= 0.01 ng/mL [Mass/Vol] 6.3 pg/mL 0.0-20.0 [facility] Urea nitrogen [Mass/volume] in Serum or PlasmaOrdered By: Socorro Osullivan on 10-11-2022 Urea nitrogen [Mass/Vol] 11 mg/dL 7-25 [facility] WBC Auto (Bld) [#/Vol]Ordere d By: Socorro Osullivan on 10-11-2022 WBC (Bld) [#/Vol] 9.5 10*3/uL 4.1-10.5 [facility] BNPon 05-16-2022 Natriuretic peptide B (Bld) [Mass/Vol] 51.0 pg/mL Normal <=450.0 [facility] Comment on above: Performed By: #### B CARBON PRINTER, CMADM, BMP #### [facility] [address] [address] [address] Divina Patino CARDIAC DAT 3-6on 3 CK [Catalytic activity/Vol] 43 U/L Normal 39-308 [facility] Comment on above: Performed By: #### L ACT #### [facility] [address] [address] [address] Divina Patino HSTROP 10.6 pg/mL Normal 4.0-76.1 [facility] Comment on above: Result Comment: CUT- OFF POINTS HAVE BEEN ESTABLISHED BASED ON THE FOURTH UNIVERSAL DEFINITIONS OF MYOCARDIAL INFARCTION. THE UPPER REFERENCE LIMIT (URL) OF TROPONIN, DEFINED THE 99TH PERCENTILE OF cTnI DISTRIBUTION IN A REFERENCE POPULATION, HAS BEEN CONFIRMED THE DECISION THRESHOLD FOR TX DIAGNOSIS. Performed By: #### L ACT #### [facility] [address] [place] [address] Dr. Divina Patino CARDIAC DAT ADMITon 023 CK [Catalytic activity/Vol] 44 U/L Normal 39-308 [facility] Comment on above: Performed By: #### B CARBON PRINTER, CMADM, BMP #### [facility] [address] [place] [address] Dr. Divina Patino CK.MB [Mass/Vol] ng/mL Normal <=3.60 [facility] Comment on above: Performed By: #### B CARBON PRINTER, CMADM, BMP #### [facility] [address] [place] [address] Dr. Divina Patino HSTROP 9.9 pg/mL Normal 4.0-76.1 [facility] Comment on above: Result Comment: CUT- OFF POINTS HAVE BEEN ESTABLISHED BASED ON THE FOURTH UNIVERSAL DEFINITIONS OF MYOCARDIAL INFARCTION. THE UPPER REFERENCE LIMIT (URL) OF TROPONIN, DEFINED THE 99TH PERCENTILE OF cTnI DISTRIBUTION IN A REFERENCE POPULATION, HAS BEEN CONFIRMED THE DECISION THRESHOLD FOR TX DIAGNOSIS. Performed By: #### B CARBON PRINTER, CMADM, BMP #### [facility] [address] [place] [address] Dr. Divina Patino CIELO 21 ng/mL Normal 16-96 [facility] Comment on above: Performed By: #### B CARBON PRINTER, CMADM, BMP #### [facility] [address] [place] [address] Dr. Divina Patino CBC AUTO DIFFon 05-16-2022 BASO # 0.1 103/ul Normal 0.0-0.1 [facility] Comment on above: Performed By: #### C BC #### [facility] [address] [place] [address] Dr. Divina Patino Basophils/100 WBC (Bld) 0.6 % Normal 0.2-2.0 [facility] Comment on above: Performed By: #### C BC #### [facility] [address] [place] [address] Dr. Divina Patino EO # 0.3 103/ul Normal 0.0-0.7 [facility] Comment on above: Performed By: #### C BC #### [facility] [address] [place] [address] Dr. Divina Patino Eosinophils/100 WBC (Bld) 2.3 % Normal 0.9-7.0 [facility] Comment on above: Performed By: #### C BC #### [facility] [address] [place] [address] Dr. Divina Patino Erythrocyte distribution width (RBC) [Ratio] 12.3 % Normal 11.0-15.0 [facility] Comment on above: Performed By: #### C BC #### [facility] [address] [place] [address] Dr. Divina Patino Hematocrit (Bld) [Volume fraction] 41.6 % Critically low 42.0-54.0 [facility] Comment on above: Performed By: #### C BC #### [facility] [address] [place] [address] Dr. Divina Patino Hemoglobin (Bld) [Mass/Vol] 14.6 g/dL Normal 14.0-18.0 [facility] Comment on above: Performed By: #### C BC #### [facility] [address] [place] [address] Dr. Divina Patino IG # 0.12 10e3/ul Critically high 0.00-0.03 [facility] Comment on above: Performed By: #### C BC #### [facility] [address] [place] [address] Dr. Divina Patino IG % 1.0 % Critically high 0.0-0.5 [facility] Comment on above: Performed By: #### C BC #### [facility] [address] [place] [address] Dr. Divina Patino LYMPH # 2.7 103/ul Normal 1.2-3.8 [facility] Comment on above: Performed By: #### C BC #### [facility] [address] [place] [address] Dr. Divina Patino Lymphocytes/100 WBC (Bld) 23.0 % Normal 20.5-60.0 [facility] Comment on above: Performed By: #### C BC #### [facility] [address] [place] [address] Dr. Divina Patino MANUAL DIFF REQ NO Normal [facility] Comment on above: Performed By: #### C BC #### [facility] [address] [place] [address] Dr. Divina Patino MCH (RBC) [Entitic mass] 30.0 pg Normal 25.9-34.0 [facility] Comment on above: Performed By: #### C BC #### [facility] [address] [place] [address] Dr. Divina Patino MCHC (RBC) [Mass/Vol] 35.1 g/dL Normal 29.9-35.2 [facility] Comment on above: Performed By: #### C BC #### [facility] [address] [place] [address] Dr. Divina Patino MCV (RBC) [Entitic vol] 85.6 fL Normal 80.0-94.0 [facility] Comment on above: Performed By: #### C BC #### [facility] [address] [place] [address] Dr. Divina Patino MONO # 1.0 103/ul Critically high 0.3-0.8 [facility] Comment on above: Performed By: #### C BC #### [facility] [address] [place] [address] Dr. Divina Patino Monocytes/100 WBC (Bld) 8.6 % Normal 1.7-12.0 [facility] Comment on above: Performed By: #### C BC #### [facility] [address] [place] [address] Dr. Divina Patino NEUT # 7.4 103/ul Critically high 1.4-6.5 [facility] Comment on above: Performed By: #### C BC #### [facility] [address] [address] [address] Divina Patino Neutrophils/100 WBC (Bld) 64.5 % Normal 43.0-75.0 [facility] Comment on above: Performed By: #### C BC #### [facility] [address] [address] [address] Divina Patino Platelet mean volume (Bld) [Entitic vol] 9.9 fL Normal 9.5-13.5 [facility] Comment on above: Performed By: #### C BC #### [facility] [address] [address] [address] Divina Patino PLT 231 103/ul Normal 150-450 [facility] Comment on above: Performed By: #### C BC #### [facility] [address] [place] [address] Dr. Divina Patino RBC 4.86 106/ul Normal 4.70-6.10 [facility] Comment on above: Performed By: #### C BC #### [facility] [address] [address] [address] Divina Patino WBC 11.5 103/ul Critically high 4.0-11.0 [facility] Comment on above: Performed By: #### C BC #### [facility] [address] [place] [address] Dr. Divina Patino D-DIMERon 05-16-2022 D-DIMER 0.19 mg/L FEU Normal <=0.59 [facility] Comment on above: Performed By: #### D DIM #### [facility] [address] [place] [address] Dr. Divina Patino D-DIMER COMMENTS SEE BELOW Normal [facility] Comment on above: Result Comment: Incr [...] hospitalization. Performed By: #### D DIM #### [facility] [address] [place] [address] Dr. Divina Patino LACTATE/LACTIC ACIDon 2022 Lactate [Moles/Vol] 1.5 mmol/L Normal 0.4-1.9 [facility] Comment on above: Performed By: #### L ACT #### [facility] [address] [place] [address] Dr. Divina Patino PROF CHEM 8 (BAS METB)on Anion gap [Moles/Vol] 13.7 mmol/L Normal [facility] Comment on above: Performed By: #### B CARBON PRINTER, CMADM, BMP #### [facility] [address] [place] [address] Dr. Divina Patino Calcium [Mass/Vol] 8.7 mg/dL Normal 8.5-10.1 [facility] Comment on above: Performed By: #### B CARBON PRINTER, CMADM, BMP #### [facility] [address] [place] [address] Dr. Divina Patino Chloride [Moles/Vol] 102 mmol/L Normal 98-107 [facility] Comment on above: Performed By: #### B CARBON PRINTER, CMADM, BMP #### [facility] [address] [place] [address] Dr. Divina Patino CO2 [Moles/Vol] 27.1 mmol/L Normal 21.0-32.0 [facility] Comment on above: Performed By: #### B CARBON PRINTER, CMADM, BMP #### [facility] [address] [place] [address] Dr. Divina Patino Creatinine [Mass/Vol] 0.85 mg/dL Normal 0.70-1.30 [facility] Comment on above: Performed By: #### B CARBON PRINTER, CMADM, BMP #### [facility] [address] [place] [address] Dr. Divina Patino EGFR-AF MOROCCAN >60 Normal >=60 [facility] Comment on above: Performed By: #### B CARBON PRINTER, CMADM, BMP #### [facility] [address] [address] [address] Divina Patino EGFR-NON AF MOROCCAN >60 Normal >=60 [facility] Comment on above: Performed By: #### B CARBON PRINTER, CMADM, BMP #### [facility] [address] [address] [address] Divina Patino Glucose [Mass/Vol] 114 mg/dL Critically high 74-106 [facility] Comment on above: Performed By: #### B CARBON PRINTER, CMADM, BMP #### [facility] [address] [address] [address] Divina Patino Potassium [Moles/Vol] 3.8 mmol/L Normal 3.5-5.1 [facility] Comment on above: Performed By: #### B CARBON PRINTER, CMADM, BMP #### [facility] [address] [place] [address] Dr. Divina Patino Sodium [Moles/Vol] 139 mmol/L Normal 136-145 [facility] Comment on above: Performed By: #### B CARBON PRINTER, CMADM, BMP #### [facility] [address] [address] [address] Divina Patino Urea nitrogen [Mass/Vol] 15.0 mg/dL Normal 7.0-18.0 [facility] Comment on above: Performed By: #### B CARBON PRINTER, CMADM, BMP #### [facility] [address] [place] [address] Dr. Divina Patino Urea nitrogen/Creatinine [Mass ratio] 17.6 mg/mg Normal [facility] Comment on above: Performed By: #### B CARBON PRINTER, CMADM, BMP #### [facility] [address] [place] [address] Dr. Divina Patino XR CHEST 1 Von [...] AMAN PURCELL Date: 2022-05-15 23:20 Normal The [facility] CARDIAC DAT ADMITon 023 CK [Catalytic activity/Vol] 78 U/L Normal 39-308 [facility] Comment on above: Performed By: #### L ACT #### [facility] [address] [place] [address] Dr. Divina Patino CK.MB [Mass/Vol] 1.08 ng/mL Normal <=3.60 [facility] Comment on above: Performed By: #### L ACT #### [facility] [address] [place] [address] Dr. Divina Patino HSTROP 12.2 pg/mL Normal 4.0-76.1 [facility] Comment on above: Result Comment: CUT- OFF POINTS HAVE BEEN ESTABLISHED BASED ON THE FOURTH UNIVERSAL DEFINITIONS OF MYOCARDIAL INFARCTION. THE UPPER REFERENCE LIMIT (URL) OF TROPONIN, DEFINED THE 99TH PERCENTILE OF cTnI DISTRIBUTION IN A REFERENCE POPULATION, HAS BEEN CONFIRMED THE DECISION THRESHOLD FOR TX DIAGNOSIS. Performed By: #### L ACT #### [facility] [address] [place] [address] Dr. Divina Patino CIELO 24 ng/mL Normal 16-96 [facility] Comment on above: Performed By: #### L ACT #### [facility] [address] [place] [address] Dr. Divina Patino CBC AUTO DIFFon 05-11-2022 BASO # 0.1 103/ul Normal 0.0-0.1 [facility] Comment on above: Performed By: #### L ACT #### [facility] [address] [address] [address] Divina Patino Basophils/100 WBC (Bld) 0.6 % Normal 0.2-2.0 [facility] Comment on above: Performed By: #### L ACT #### [facility] [address] [place], [place] [id number] Dr. Divina Patino EO # 0.2 103/ul Normal 0.0-0.7 [facility] Comment on above: Performed By: #### L ACT #### [facility] [address] [address] [address] Divina Patino Eosinophils/100 WBC (Bld) 2.0 % Normal 0.9-7.0 [facility] Comment on above: Performed By: #### L ACT #### [facility] [address] [place] [address] Dr. Divina Patino Erythrocyte distribution width (RBC) [Ratio] 12.4 % Normal 11.0-15.0 [facility] Comment on above: Performed By: #### L ACT #### [facility] [address] [place] [address] Dr. Divina Patino Hematocrit (Bld) [Volume fraction] 43.8 % Normal 42.0-54.0 [facility] Comment on above: Performed By: #### L ACT #### [facility] [address] [place] [address] Dr. Divina Patino Hemoglobin (Bld) [Mass/Vol] 15.3 g/dL Normal 14.0-18.0 [facility] Comment on above: Performed By: #### L ACT #### [facility] [address] [place] [address] Dr. Divina Patino IG # 0.06 10e3/ul Critically high 0.00-0.03 [facility] Comment on above: Performed By: #### L ACT #### [facility] [address] [place] [address] Dr. Divina Patino IG % 0.6 % Critically high 0.0-0.5 [facility] Comment on above: Performed By: #### L ACT #### [facility] [address] [place] [address] Dr. Divina Patino LYMPH # 2.0 103/ul Normal 1.2-3.8 [facility] Comment on above: Performed By: #### L ACT #### [facility] [address] [place] [address] Dr. Divina Patino Lymphocytes/100 WBC (Bld) 19.9 % Critically low 20.5-60.0 [facility] Comment on above: Performed By: #### L ACT #### [facility] [address] [place] [address] Dr. Divina Patino MANUAL DIFF REQ NO Normal [facility] Comment on above: Performed By: #### L ACT #### [facility] [address] [place] [address] Dr. Divina Patino MCH (RBC) [Entitic mass] 30.2 pg Normal 25.9-34.0 [facility] [facility] Comment on above: Performed By: #### L ACT #### [facility] [address] [place] [address] Dr. Divina Patino MCHC (RBC) [Mass/Vol] 34.9 g/dL Normal 29.9-35.2 [facility] Comment on above: Performed By: #### L ACT #### [facility] [address] [place] [address] Dr. Divina Patino MCV (RBC) [Entitic vol] 86.6 fL Normal 80.0-94.0 [facility] Comment on above: Performed By: #### L ACT #### [facility] [address] [place] [address] Dr. Divina Patino MONO # 0.8 103/ul Normal 0.3-0.8 [facility] Comment on above: Performed By: #### L ACT #### [facility] [address] [place] [address] Dr. Divina Patino Monocytes/100 WBC (Bld) 7.7 % Normal 1.7-12.0 [facility] Comment on above: Performed By: #### L ACT #### [facility] [address] [place] [address] Dr. Divina Patino NEUT # 7.1 103/ul Critically high 1.4-6.5 [facility] Comment on above: Performed By: #### L ACT #### [facility] [address] [place] [address] Dr. Divina Patino Neutrophils/100 WBC (Bld) 69.2 % Normal 43.0-75.0 [facility] Comment on above: Performed By: #### L ACT #### [facility] [address] [address] [address] Divina Patino Platelet mean volume (Bld) [Entitic vol] 10.3 fL Normal 9.5-13.5 [facility] Comment on above: Performed By: #### L ACT #### [facility] [address] [address] [address] Divina Patino PLT 238 103/ul Normal 150-450 [facility] Comment on above: Performed By: #### L ACT #### [facility] [address] [address] [address] Divina Patino RBC 5.06 106/ul Normal 4.70-6.10 [facility] Comment on above: Performed By: #### L ACT #### [facility] [address] [address] [address] Divina Patino WBC 10.3 103/ul Normal 4.0-11.0 [facility] Comment on above: Performed By: #### L ACT #### [facility] [address] [address] [address] Divina Patino CRPon 05-11-2022 CRP [Mass/Vol] mg/L Normal <=1.0 [facility] Comment on above: Performed By: #### L ACT #### [facility] [address] [place] [address] HEAD WO CONon [...] JAMES JOHNSTON Date: 2022-05-11 19:47 Normal [facility] Covid-19 PCR (CVDTB)on SARS-CoV-2 (COVID-19) RNA JERRICA+probe Ql (Unsp spec) Not detected Normal NOT DETECTED [facility] Comment on above: Result Comment: When [...] for this test is supported by the [place] of Health and Human Service's declaration that [...] used). Performed By: #### C VDTBH #### [facility] [address] [place] [address] Dr. Divina Patino INFLUENZA A AND B AGon 05-11 [facility] SEE BELOW Normal [facility] Comment on above: Result Comment: Nega tive for Flu A protein angiten. Infection due to Flu A cannot be ruled out. Flu A angiten in the sample may be below the detection limit of the test. Performed By: #### I NFLUAB #### [facility] [address] [place] [address] Dr. [facility] Normal [facility] Comment on above: Result Comment: Nega tive for Flu B protein antigen. Infection due to Flu B cannot be ruled out. Flu B antigen in the sample may be below the detection limit of the test. Performed By: #### I NFLUAB #### [facility] [address] [place] [address] Dr. Divina Patino INFLUENZA A AG Negative Normal NEGATIVE SEE COMMENT [facility] Comment on above: Performed By: #### I NFLUAB #### [facility] [address] [address] [address] Divina Patino INFLUENZA B AG Negative Normal NEGATIVE SEE COMMENT [facility] Comment on above: Performed By: #### I NFLUAB #### [facility] [address] [address] [address] Divina Patino LACTATE/LACTIC ACIDon 2022 Lactate [Moles/Vol] 1.8 mmol/L Normal 0.4-1.9 [facility] Comment on above: Performed By: #### L ACT #### [facility] [address] [address] [address] Divina Patino MONOon 05-11-2022 Monocytes (Bld) [#/Vol] Negative Normal NEGATIVE [facility] Comment on above: Performed By: #### M LEANDRO #### [facility] [address] [place] [address] Dr. Divina Patino PROF CHEM 8 (BAS METB)on Anion gap [Moles/Vol] 12.8 mmol/L Normal [facility] Comment on above: Performed By: #### L ACT #### [facility] [address] [place] [address] Dr. Divina Patino Calcium [Mass/Vol] 9.1 mg/dL Normal 8.5-10.1 [facility] Comment on above: Performed By: #### L ACT #### [facility] [address] [place] [address] Dr. Divina Patino Chloride [Moles/Vol] 101 mmol/L Normal 98-107 [facility] Comment on above: Performed By: #### L ACT #### [facility] [address] [place] [address] Dr. Divina Patino CO2 [Moles/Vol] 26.9 mmol/L Normal 21.0-32.0 [facility] Comment on above: Performed By: #### L ACT #### [facility] [address] [place] [address] Dr. Divina Patino Creatinine [Mass/Vol] 0.90 mg/dL Normal 0.70-1.30 [facility] Comment on above: Performed By: #### L ACT #### [facility] [address] [address] [address] Divina Patino EGFR-AF MOROCCAN >60 Normal >=60 [facility] Comment on above: Performed By: #### L ACT #### [facility] [address] [address] [address] Divina Patino EGFR-NON AF MOROCCAN >60 Normal >=60 [facility] Comment on above: Performed By: #### L ACT #### [facility] [address] [address] [address] Divina Patino Glucose [Mass/Vol] 110 mg/dL Critically high 74-106 T [facility] Comment on above: Performed By: #### L ACT #### [facility] [address] [address] [address] Divina Patino Potassium [Moles/Vol] 3.7 mmol/L Normal 3.5-5.1 [facility] Comment on above: Performed By: #### L ACT #### [facility] [address] [address] [address] Divina Patino Sodium [Moles/Vol] 137 mmol/L Normal 136-145 [facility] Comment on above: Performed By: #### L ACT #### [facility] [address] [address] [address] Divina Patino Urea nitrogen [Mass/Vol] 11.0 mg/dL Normal 7.0-18.0 [facility] Comment on above: Performed By: #### L ACT #### [facility] [address] [address] [address] Divina Patino Urea nitrogen/Creatinine [Mass ratio] 12.2 mg/mg Normal [facility] Comment on above: Performed By: #### L ACT #### [facility] [address] [address] [address] Divina Patino SED RATE [facility] 2022 SED RATE 16 mm/hr Critically high <=15 [facility] Comment on above: Performed By: #### L ACT #### [facility] [address] [address] [address] Divina Patnio TSHon 05-11-2022 TSH 3.949 uIU/mL Critically high 0.358-3.740 [facility] Comment on above: Performed By: #### L ACT #### [facility] [address] [address] [address] Divina Patino COVID-19 SOFIAOrdered By: Andres Elizondo on 12-02-2021 SARS-CoV+SARS-CoV-2 (COVID-19) Ag IA.rapid Ql (Resp) Negative Negative [facility] Comment on above: This is a duplicate Judiht SARS Antigen (ANURAG) result to be used for statistical tracking purpose only. No Panel InformationOrdered By: Elian Elizondo on 12-02-2021 SARS Antigen (LFIA) [facility] CBC with Auto Differentialon 06-08-2021 Absolute Eos # 0.11 [facility] Absolute Immature Granulocyte 0.06 [facility] Absolute Lymph # 1.65 [facility] alth Absolute Sullivan # 1.03 [facility] Basophils (Bld) [#/Vol] 0.07 10*3/uL [facility] Basophils/100 WBC (Bld) 1 % 0 - 2 % [employer] Eosinophils/100 WBC (Bld) 1 % 1 - 4 % [facility] Hematocrit (Bld) [Volume fraction] 47.5 % 40.7 - 50.3 % OPPRTUNITY [facility] Hemoglobin.gastroint estinal spec 1 Ql (Stl) 16.3 g/dL 13.0 - 17.0 g/dL [facility] Immature granulocytes/100 WBC (Bld) 1 % High 0 [facility] Interpretation and review of laboratory results Abnormal [employer] Lymphocytes/100 WBC (Bld) 14 % Low 24 - 43 % [facility] MCH (RBC) [Entitic mass] 30.5 pg 25.2 - 33.5 pg [facility] MCHC (RBC) [Mass/Vol] 34.3 g/dL 28.4 - 34.8 g/dL [facility] MCV (RBC) [Entitic vol] 89.0 fL 82.6 - 102.9 fL [employer] Monocytes/100 WBC (Bld) 9 % 3 - 12 % [facility] NRBC Automated 0.0 0.0 per 100 WBC [facility] Platelet distribution width (Bld) [Ratio] 12.5 % 11.8 - 14.4 % [facility] Platelet mean volume (Bld) [Entitic vol] 10.8 fL 8.1 - 13.5 fL [facility] Platelets (Bld) [#/Vol] 231 10*3/uL [facility] RBC (Bld) [#/Vol] 5.34 10*6/uL 4.21 - 5.77 m/uL [facility] Segmented neutrophils/100 WBC (Bld) 74 % High 36 - 65 % [facility] Segs Absolute 9.05 High [facility] WBC (Bld) [#/Vol] 12.0 10*3/uL High [facility] CT ABDOMEN PELVIS W [...] COMPARISON: 02/05/2019 HISTORY: ORDERING SYSTEM PROVIDED HISTORY: [facility] TECHNOLOGIST PROVIDED HISTORY: [facility] Decision Support Exception - unselect if [...] aneurysm. Bones/Soft Tissues: Mild multilevel thoracolumbar spondylosis. [facility] Ok Ochoa MD - 06/08/2021 EXAMINATION: CT OF THE [...] PROVIDED HISTORY: [facility]d pain TECHNOLOGIST PROVIDED HISTORY: [facility] Decision Support Exception - unselect if [...] stones in the left kidney. Normal appendix. [employer] Phone: Radiology Study observation (narrative) [employer] Phone: CT ABDOMEN PELVIS W IV CONTR AST Additional Contrast? NoneOrdered By: Ok Rodgers on 06-08-2021 [employer] Phone: Comprehensive Metabolic Pane karan 06-08-2021 Albumin [Mass/Vol] 4.6 g/dL 3.5 - 5.2 g/dL [facility] Albumin/Globulin [Mass ratio] 1.5 {ratio} [facility] ALP (Bld) [Catalytic activity/Vol] 90 U/L 40 - 129 U/L [facility] ALT [Catalytic activity/Vol] 37 U/L 5 - 41 U/L [facility] Anion gap [Moles/Vol] 10 mmol/L 9 - 17 mmol/L [facility] AST [Catalytic activity/Vol] 18 U/L <40 [facility] Bilirubin [Mass/Vol] 0.83 mg/dL 0.3 - 1.2 mg/dL [facility] Calcium [Mass/Vol] 9.7 mg/dL 8.6 - 10.4 mg/dL [facility] Chloride [Moles/Vol] 101 mmol/L 98 - 107 mmol/L [facility] CO2 [Moles/Vol] 29 mmol/L 20 - 31 mmol/L [facility] Creatinine [Mass/Vol] 0.83 mg/dL 0.70 - 1.20 mg/dL [facility] Free PSA/Total PSA [Mass fraction] 7.6 g/dL 6.4 - 8.3 g/dL [facility] GFR >60 >60 mL/min [facility] GFR Non- >60 >60 mL/min [facility] Glucose [Mass/Vol] 110 mg/dL High 70 - 99 mg/dL [facility] Interpretation and review of laboratory results Abnormal [facility] Potassium [Moles/Vol] 4.2 mmol/L 3.7 - 5.3 mmol/L [facility] Sodium [Moles/Vol] 140 mmol/L 135 - 144 mmol/L [facility] Urea nitrogen (BldV) [Mass/Vol] 10 mg/dL 6 - 20 mg/dL [facility] Urea nitrogen/Creatinine (Bld) [Mass ratio] 12 [facility] Laboratory - Chemistry and C hemistry - challengeon 06-08-2021 GFR/1.73 sq M.predicted MDRD (S/P/Bld) [Vol rate/Area] [facility] Comment on above: Average GFR for 40-4 9 years old: 99 mL/min/1.73sq m Chronic Kidney Disease: <60 mL/min/1.73sq m Kidney failure: <15 mL/min/1.73sq m eGFR calculated using average adult body mass. Additional eGFR calculator available at: http://www.Bucky Box/multiple_crcl_2012.htm Stage 1: Some kidney damage normal GFR Stage 2: Mild kidney damage GFR 60-89 Stage 3: Moderate kidney damage GFR 30-59 Stage 4: Severe kidney damage GFR 15-29 Stage 5: Severe kidney damage GFR <15 ESRD - chronic treatment by dialysis or transplant Lactic Acidon 06-08-2021 Lactate [Moles/Vol] 2.1 mmol/L 0.5 - 2.2 mmol/L [facility] Lipaseon 06-08-2021 Lipase [Catalytic activity/Vol] 30 U/L 13 - 60 U/L [facility] No Panel Informationon 06-08 [facility] Basic Metabolic Panelon Anion gap [Moles/Vol] 9 mmol/L 9 - 17 mmol/L [place] Bun/Cre Ratio 12 [place] Calcium [Mass/Vol] 8.8 mg/dL 8.6 - 10.4 mg/dL [place] Chloride [Moles/Vol] 98 mmol/L 98 - 107 mmol/L [place] CO2 [Moles/Vol] 26 mmol/L 20 - 31 mmol/L [place] Creatinine [Mass/Vol] 1.04 mg/dL 0.7 - 1.2 mg/dL [place] GFR >60 >60 mL/min [place] GFR Non- >60 >60 mL/min [place] Glucose [Mass/Vol] 111 mg/dL High 70 - 99 mg/dL [place] Interpretation and review of laboratory results Abnormal [place] Potassium [Moles/Vol] 3.9 mmol/L 3.7 - 5.3 mmol/L [place] Sodium [Moles/Vol] 133 mmol/L Low 135 - 144 mmol/L [place] Urea nitrogen [Mass/Vol] 12 mg/dL 6 - 20 mg/dL [place] Brain Natriuretic Peptideon 03-19-2020 Natriuretic peptide B (Bld) [Mass/Vol] Pro-BNP Reference Range: [place] Comment on above: Rule Out: <300 Reis Zone: Age <50 300-450 Age 50-75 300-900 Age >75 300-1800 Usually represents mild to moderate HF but other cardiopulmonary causes cannot be ruled out. Rule In: Age <50 >450 Age 50-75 >900 Age >75 >1800 Natriuretic peptide B (Bld) [Mass/Vol] 60 pg/mL <300 [place] Comment on above: Pro-BNP results radha ot be compared to BNP results. CBC Auto Differentialon Basophils (Bld) [#/Vol] 0.04 10*3/uL [place] Basophils/100 WBC (Bld) 1 % 0 - 2 % [place] Differential Type NOT REPORTED [place] Eosinophils (Bld) [#/Vol] 0.04 10*3/uL [place] Eosinophils/100 WBC (Bld) 1 % 1 - 4 % [place] Erythrocyte distribution width (RBC) [Ratio] 12.5 % 11.8 - 14.4 % [place] Hematocrit (Bld) [Volume fraction] 48.2 % 40.7 - 50.3 % [place] Hemoglobin (Bld) [Mass/Vol] 16.3 g/dL 13 - 17 g/dL [place] Immature granulocytes (Bld) [#/Vol] 1 % High 0 [place] Immature granulocytes (Bld) [#/Vol] 0.07 10*3/uL [place] Interpretation and review of laboratory results Abnormal [place] Lymphocytes (Bld) [#/Vol] 1.10 10*3/uL [place] Lymphocytes/100 WBC (Bld) 13 % Low 24 - 43 % [place] MCH (RBC) [Entitic mass] 29.4 pg 25.2 - 33.5 pg [place] MCHC (RBC) [Mass/Vol] 33.8 g/dL 28.4 - 34.8 g/dL [place] MCV (RBC) [Entitic vol] 87.0 fL 82.6 - 102.9 fL [place] Monocytes (Bld) [#/Vol] 0.96 10*3/uL [place] Monocytes/100 WBC (Bld) 11 % 3 - 12 % [place] Platelet mean volume (Bld) [Entitic vol] 11.2 fL 8.1 - 13.5 fL [place] Platelets (Bld) [#/Vol] 175 10*3/uL [place] Platelets (Bld) [#/Vol] NOT REPORTED [place] RBC (Bld) [#/Vol] 5.54 10*6/uL 4.21 - 5.77 m/uL [place] RBC morphology finding Nom (Bld) NOT REPORTED [place] Segmented neutrophils/100 WBC (Bld) 73 % High 36 - 65 % [place] Segs Absolute 6.21 [place] WBC (Bld) [#/Vol] 8.4 10*3/uL [place] WBC (Bld) [#/Vol] 0.0 10*3/uL 0.0 per 100 WBC M [place] WBC Morphology NOT REPORTED [place] COVID-19, PCRon 03-19-2020 Interpretation and review of laboratory results Abnormal [place] SARS-CoV-2, Rapid DETECTED Abnormal Not Detected [place] Comment on above: Rapid NAAT: The [...] this assay. Fact sheet for Healthcare Providers: https://www.fda.gov/media/794795/download Fact sheet for Patients: https://www.fda.gov/media/447707/download Methodology: Isothermal Nucleic Acid Amplification Results reported to the appropriate Health Department Source .NASOPHARYNGEAL SWAB [place] CT CHEST PULMONARY EMBOLISM W CONTRASTon 03-19-2020 1. No pulmonary embolism. 2. Multifocal ground-glass opacities in the bilateral lungs with overall pattern of concern for underlying viral pneumonitis. 3. Hepatomegaly and diffuse steatosis in the abdomen, stable from remote imaging. [place] [facility], [facility] Incoming Radiant Results From [employer] - 03/19/2020 8:26 PM EST EXAMINATION: CTA [...] in the abdomen, stable from remote imaging. [place] EXAMINATION: CTA OF THE CHEST 03/19/2020 [...] Tissues/Bones: No skeletal abnormalities throughout the chest. [place] Lactic Acid, Plasmaon 2020 Lactate [Moles/Vol] 1.2 mmol/L 0.5 - 2.2 mmol/L [place] Lactic Acid, Whole Blood NOT REPORTED 0.7 - 2.1 mmol/L [place] Metabolic Panelon 03-19-2020 GFR/1.73 sq M predicted among non-blacks MDRD (S/P/Bld) [Vol rate/Area] [place] Comment on above: Average GFR for 40-4 9 years old: 99 mL/min/1.73sq m Chronic Kidney Disease: <60 mL/min/1.73sq m Kidney failure: <15 mL/min/1.73sq m eGFR calculated using average adult body mass. Additional eGFR calculator available at: http://www.B[employer] Booking.com/multiple_crcl_2012.htm Stage 1: Some kidney damage normal GFR Stage 2: Mild kidney damage GFR 60-89 Stage 3: Moderate kidney damage GFR 30-59 Stage 4: Severe kidney damage GFR 15-29 Stage 5: Severe kidney damage GFR <15 ESRD - chronic treatment by dialysis or transplant Otheron 03-19-2020 SARS-CoV-2 [place] Rapid influenza A/B antigens on 03-19-2020 Direct Exam NEGATIVE for Influenza A + B antigens. PCR testing to confirm this result is available upon request. Specimen will be saved in the laboratory for 7 days. Please call [phone] if PCR testing is indicated. [place] Special Requests NOT REPORTED [place] Specimen Description .NASOPHARYNGEAL SWAB [place] Troponinon 03-19-2020 Troponin I.cardiac [Mass/Vol] NOT REPORTED [place] Troponin T.cardiac [Mass/Vol] NOT REPORTED <0.03 ng/mL [place] Troponin, High Sensitivity 15 ng/L 0 - 22 ng/L [place] Comment on above: High Sensitivity Troponin values cannot be compared with other Troponin methodologies. Patients with high levels of Biotin oral intake (i.e >5mg/day) may have falsely decreased Troponin levels. Samples collected within 8 hours of biotin intake may require additional information for diagnosis. XR CHEST PORTABLEon 03-19-19 21 [facility], [facility] Incoming Radiant Results From [employer] - 03/19/2020 6:06 PM EST EXAMINATION: ONE XRAY VIEW OF THE CHEST 03/19/2020 5:58 pm COMPARISON: June 27, 2018 HISTORY: ORDERING SYSTEM PROVIDED HISTORY: dyspnea TECHNOLOGIST PROVIDED HISTORY: dyspnea FINDINGS: Mild edema. Heart and mediastinum normal. Bony thorax intact. IMPRESSION: Mild edema or pneumonitis [place] EXAMINATION: ONE XRAY VIEW OF THE CHEST 03/19/2020 5:58 pm COMPARISON: June 27, 2018 HISTORY: ORDERING SYSTEM PROVIDED HISTORY: dyspnea TECHNOLOGIST PROVIDED HISTORY: dyspnea FINDINGS: Mild edema. Heart and mediastinum normal. Bony thorax intact. [place] Mild edema or pneumonitis [place] Otheron 10-21-2019 No acute abnormalities seen in the left foot or left ankle [place] EXAMINATION: THREE XRAY VIEWS OF THE [...] medial malleolus most likely from old trauma. [place] [facility], [facility] Incoming Radiant Results From [employer] - 10/21/2019 4:26 PM EDT EXAMINATION: THREE [...] in the left foot or left ankle [place] Basic Metabolic Panel w/ Ref katrin to MGon 02-06-2019 Anion gap [Moles/Vol] 13 mmol/L 9 - 17 mmol/L [place] Bun/Cre Ratio 16 [place], [place] Calcium [Mass/Vol] 8.4 mg/dL Low 8.6 - 10.4 mg/dL [place] Chloride [Moles/Vol] 99 mmol/L 98 - 107 mmol/L [place] CO2 [Moles/Vol] 23 mmol/L 20 - 31 mmol/L [place] Creatinine [Mass/Vol] 0.94 mg/dL 0.7 - 1.2 mg/dL [place] GFR >60 >60 mL/min [place] GFR Non- >60 >60 mL/min [place] Glucose [Mass/Vol] 130 mg/dL High 70 - 99 mg/dL [place] Interpretation and review of laboratory results Abnormal [place] Potassium [Moles/Vol] 3.7 mmol/L 3.7 - 5.3 mmol/L [place] Sodium [Moles/Vol] 135 mmol/L 135 - 144 mmol/L [place] Urea nitrogen [Mass/Vol] 15 mg/dL 6 - 20 mg/dL [place] CBCon 02-06-2019 Erythrocyte distribution width (RBC) [Ratio] 12.5 % 11.8 - 14.4 % [place] Hematocrit (Bld) [Volume fraction] 45.4 % 40.7 - 50.3 % [place] Hemoglobin (Bld) [Mass/Vol] 15.1 g/dL 13 - 17 g/dL [place] MCH (RBC) [Entitic mass] 29.8 pg 25.2 - 33.5 pg [place] MCHC (RBC) [Mass/Vol] 33.3 g/dL 28.4 - 34.8 g/dL [place] MCV (RBC) [Entitic vol] 89.5 fL 82.6 - 102.9 fL [place] Platelet mean volume (Bld) [Entitic vol] 10.4 fL 8.1 - 13.5 fL [place] Platelets (Bld) [#/Vol] 198 10*3/uL [place] RBC (Bld) [#/Vol] 5.07 10*6/uL 4.21 - 5.77 m/uL [place] WBC (Bld) [#/Vol] 0.0 10*3/uL 0.0 per 100 WBC M [place] WBC (Bld) [#/Vol] 10.7 10*3/uL [place] Culture Stoolon 02-06-2019 Campylobacter PCR NEGATIVE: No Campylobacter spp. (jejuni or coli) DNA Detected NEGATIVE: No Campylobacter spp. (jejuni or coli) DNA Detecte [place] E Coli Enterotoxigenic PCR NEGATIVE: No Enterotoxigenic E. coli (ETEC) Heat-labile and heat-stable (LT/ST) DNA Detected NEGATIVE: No Enterotoxigenic E. coli (ETEC) Heat-labile and [place] Plesiomonas Shigelloides PCR Negative NEGATIVE: No Plesionomas shigelloides DNA Detected [place] Salmonella PCR Negative NEGATIVE: No Salmonella spp. DNA Detected [place] Shigatoxin Gene PCR Negative NEGATIVE : No Shiga toxin-producing gene(s) Detected [place] Shigella Sp PCR Negative NEGATIVE: No Shigella spp. / EIEC DNA Detected [place] Specimen Description .FECES [place] Vibrio PCR NEGATIVE: No Vibrio (V. vulnificus, V, parahaemolyticus and V. cholerae) DNA Detected NEGATIVE: No Vibrio (V. vulnificus, V, parahaemolyticus and [place] Yersinia Enterocolitica PCR Negative NEGATIVE: No Yersinia enterocolitica DNA Detected [place] Metabolic Panelon 02-06-2019 GFR/1.73 sq M predicted among non-blacks MDRD (S/P/Bld) [Vol rate/Area] [place] Comment on above: Stage 1: Some [...] body mass. Additional eGFR calculator available at: http://www.Bucky Box/multiple_crcl_2012.htm Microscopic Urinalysison Amorphous, UA NOT REPORTED None [place] Bacteria, UA TRACE Abnormal None [place] Casts UA NOT REPORTED /LPF [place] Crystals UA NOT REPORTED None /HPF [place] Epithelial Cells UA 0 TO 2 [place] Interpretation and review of laboratory results Abnormal [place] Mucus, UA TRACE Abnormal None [place] Other Observations UA NOT REPORTED NOT REQ. [place] RBC (U) [#/Vol] 0 TO 2 [place] Renal Epithelial, Urine NOT REPORTED 0 /HPF [place] Trichomonas, UA NOT REPORTED None [place] WBC, UA None [place] Yeast, UA NOT REPORTED None [place] - [place] Urinalysis Reflex to Culture on 02-06-2019 Bilirubin Urine Negative NEGATIVE [facility] [place] Color, UA YELLOW YELLOW [place] Glucose, Ur Negative NEGATIVE [place] Interpretation and review of laboratory results Abnormal [place] Ketones Ql (U) TRACE Abnormal NEGATIVE [place] Leukocyte esterase Test strip Ql (U) Negative NEGATIVE [place] Nitrite, Urine Negative NEGATIVE [place] pH, UA 5.5 [place] Protein (U) [Mass/Vol] TRACE Abnormal NEGATIVE [place] Specific [place], UA >1.030 High [place] Turbidity UA CLEAR [place] Urinalysis Comments NOT REPORTED [place] Urine Hgb 1+ Abnormal NEGATIVE [place] Urobilinogen, Urine Normal Normal [place] C DIFF TOXIN/ANTIGENon 02-05 C DIFF AG + TOXIN Negative NEGATIVE [place] Comment on above: No C. difficile anti gen and Toxin Detected. Specimen Description .FECES [place], [place] CBCon 02-05-2019 Erythrocyte distribution width (RBC) [Ratio] 12.0 % 11.8 - 14.4 % [place] Hematocrit (Bld) [Volume fraction] 49.7 % 40.7 - 50.3 % [place] Hemoglobin (Bld) [Mass/Vol] 17.2 g/dL High 13 - 17 g/dL [place] Interpretation and review of laboratory results Abnormal [place] MCH (RBC) [Entitic mass] 30.4 pg 25.2 - 33.5 pg [place] MCHC (RBC) [Mass/Vol] 34.6 g/dL 28.4 - 34.8 g/dL [place] MCV (RBC) [Entitic vol] 87.8 fL 82.6 - 102.9 fL [place] Platelet mean volume (Bld) [Entitic vol] 10.8 fL 8.1 - 13.5 fL [place] Platelets (Bld) [#/Vol] 233 10*3/uL [place] RBC (Bld) [#/Vol] 5.66 10*6/uL 4.21 - 5.77 m/uL [place] WBC (Bld) [#/Vol] 15.0 10*3/uL [place] WBC (Bld) [#/Vol] 0.0 10*3/uL 0.0 per 100 WBC [place] CT ABDOMEN PELVIS W IV CONTR AST Additional Contrast? Noneon 02-05-2019 Tito, Mhpn Incoming Radiant Results From [employer] - 02/05/2019 6:20 PM EST EXAMINATION: CT [...] pathologic adenopathy. Bones/Soft Tissues: Normal IMPRESSION: Ileus [place], [place] EXAMINATION: CT OF THE ABDOMEN AND [...] is no pathologic adenopathy. Bones/Soft Tissues: Normal [place] Ileus [place] Comprehensive Metabolic Pane karan 02-05-2019 Albumin [Mass/Vol] 4.6 g/dL 3.5 - 5.2 g/dL [place] Albumin/Globulin [Mass ratio] 1.4 {ratio} [place] ALP [Catalytic activity/Vol] 88 U/L 40 - 129 U/L [place] ALT [Catalytic activity/Vol] 43 U/L High 5 - 41 U/L [place] Anion gap [Moles/Vol] 19 mmol/L High 9 - 17 mmol/L [place] AST [Catalytic activity/Vol] 23 U/L <40 [place] Bilirubin Ql (U) 1.37 mg/dL High 0.3 - 1.2 mg/dL [place] Bun/Cre Ratio 16 [place], [place] Calcium [Mass/Vol] 9.4 mg/dL 8.6 - 10.4 mg/dL [place] Chloride [Moles/Vol] 96 mmol/L Low 98 - 107 mmol/L [place] CO2 [Moles/Vol] 21 mmol/L 20 - 31 mmol/L [place] Creatinine [Mass/Vol] 0.9 mg/dL 0.7 - 1.2 mg/dL [place] GFR >60 >60 mL/min [place] GFR Non- >60 >60 mL/min [place] Glucose [Mass/Vol] 119 mg/dL High 70 - 99 mg/dL [place] Interpretation and review of laboratory results Abnormal [place] Potassium [Moles/Vol] 4.2 mmol/L 3.7 - 5.3 mmol/L [place] Protein [Mass/Vol] 8.0 g/dL 6.4 - 8.3 g/dL [place] Sodium [Moles/Vol] 136 mmol/L 135 - 144 mmol/L [place] Urea nitrogen [Mass/Vol] 14 mg/dL 6 - 20 mg/dL [place] Lactic Acid, Plasmaon 2018 Interpretation and review of laboratory results Abnormal [place] Lactate [Moles/Vol] 2.4 mmol/L High 0.5 - 2.2 mmol/L [place] Lactic Acid, Whole Blood NOT REPORTED 0.7 - 2.1 mmol/L [place] Lipaseon 02-05-2019 Lipase [Catalytic activity/Vol] 32 U/L 13 - 60 U/L [place] Metabolic Panelon 02-05-2019 GFR/1.73 sq M predicted among non-blacks MDRD (S/P/Bld) [Vol rate/Area] [place], [place] Comment on above: Average GFR for 40-4 9 years old: 99 mL/min/1.73sq m Chronic Kidney Disease: <60 mL/min/1.73sq m Kidney failure: <15 mL/min/1.73sq m eGFR calculated using average adult body mass. Additional eGFR calculator available at: http://www.[employer].Snapcious/multiple_crcl_2012.htm Stage 1: Some kidney damage normal GFR Stage 2: Mild kidney damage GFR 60-89 Stage 3: Moderate kidney damage GFR 30-59 Stage 4: Severe kidney damage GFR 15-29 Stage 5: Severe kidney damage GFR <15 ESRD - chronic treatment by dialysis or transplant Vital Signs Date Time Vital Sign Value Performing Clinician Rochelle cerrato 10-11-2022 15:03-0400 Diastolic blood pressure 81 mm[Hg] PHYSICIAN RAMÓN [facility] 10-11-2022 15:03-0400 Heart rate 75 /min PHYSICIAN NO [facility] 10-11-2022 15:03-0400 Respiratory rate 20 /min PHYSICIAN NO [facility] 10-11-2022 15:03-0400 SaO2% (BldA) [Mass fraction] 97 % PHYSICIAN NO [facility] 10-11-2022 15:03-0400 Systolic blood pressure 146 mm[Hg] PHYSICIAN NO [facility] 10-11-2022 12:17-0400 Body temperature 98.3 [degF] PHYSICIAN NO [facility] 10-11-2022 12:12-0400 Body height 175.26 cm PHYSICIAN NO [facility] 10-11-2022 12:12-0400 Body weight 128.6 kg PHYSICIAN NO [facility] 08-18-2022 12:04-0400 Body temperature 97.9 [degF] PHYSICIAN NO [facility] 08-18-2022 11:58-0400 Body height 177.8 cm PHYSICIAN NO [facility] 08-18-2022 11:58-0400 Body weight 129.36 kg PHYSICIAN NO [facility] 08-18-2022 11:58-0400 Diastolic blood pressure 115 mm[Hg] PHYSICIAN NO [facility] 08-18-2022 11:58-0400 Heart rate 107 /min PHYSICIAN NO [facility] 08-18-2022 11:58-0400 Respiratory rate 20 /min PHYSICIAN NO [facility] 08-18-2022 11:58-0400 SaO2% (BldA) [Mass fraction] 97 % PHYSICIAN NO [facility] 08-18-2022 11:58-0400 Systolic blood pressure 159 mm[Hg] PHYSICIAN NO [facility] 12-19-2021 18:32-0400 Body temperature 98.1 [degF] PHYSICIAN NO [facility] 12-19-2021 18:32-0400 Diastolic blood pressure 105 mm[Hg] PHYSICIAN NO [facility] 12-19-2021 18:32-0400 Heart rate 106 /min PHYSICIAN NO [facility] 12-19-2021 18:32-0400 Respiratory rate 20 /min PHYSICIAN NO [facility] 12-19-2021 18:32-0400 SaO2% (BldA) [Mass fraction] 96 % PHYSICIAN NO [facility] 12-19-2021 18:32-0400 Systolic blood pressure 153 mm[Hg] PHYSICIAN NO [facility] 12-19-2021 17:44-0400 Body height 177.8 cm PHYSICIAN NO [facility] 12-19-2021 17:44-0400 Body weight 134.55 kg PHYSICIAN NO [facility] 12-17-2021 09:40-0400 Body height 177.8 cm PHYSICIAN NO [facility] 12-17-2021 09:40-0400 Body temperature 98.1 [degF] PHYSICIAN NO [facility] 12-17-2021 09:40-0400 Body weight 134 kg PHYSICIAN NO [facility] 12-17-2021 09:40-0400 Diastolic blood pressure 108 mm[Hg] PHYSICIAN NO [facility] 12-17-2021 09:40-0400 Heart rate 114 /min PHYSICIAN NO [facility] 12-17-2021 09:40-0400 Respiratory rate 20 /min PHYSICIAN NO [facility] 12-17-2021 09:40-0400 SaO2% (BldA) [Mass fraction] 98 % PHYSICIAN NO [facility] 12-17-2021 09:40-0400 Systolic blood pressure 171 mm[Hg] PHYSICIAN NO [facility] 12-02-2021 14:50-0400 Body height 177.8 cm PHYSICIAN NO [facility] 12-02-2021 14:50-0400 Body temperature 98.6 [degF] PHYSICIAN NO [facility] 12-02-2021 14:50-0400 Body weight 133.2 kg PHYSICIAN NO [facility] 12-02-2021 14:50-0400 Diastolic blood pressure 102 mm[Hg] PHYSICIAN NO [facility] 12-02-2021 14:50-0400 Heart rate 117 /min PHYSICIAN NO [facility] 12-02-2021 14:50-0400 Respiratory rate 18 /min PHYSICIAN NO [facility] 12-02-2021 14:50-0400 SaO2% (BldA) [Mass fraction] 98 % PHYSICIAN NO [facility] 12-02-2021 14:50-0400 Systolic blood pressure 174 mm[Hg] PHYSICIAN NO [facility] 06-08-2021 14:28-0400 Heart rate 117 /min Fatoumata Sanchez APRN - PHERESIS NURSE Work Phone: [facility] 06-08-2021 14:28-0400 SaO2% (BldA) [Mass fraction] 95 % Fatoumata Sanchez APRN - PHERESIS NURSE Work Phone: [employer] 06-08-2021 14:22-0400 Body height 177.8 cm Fatoumata Sanchez APRN - PHERESIS NURSE Work Phone: [employer] 06-08-2021 14:22-0400 Body mass index (BMI) [Ratio] 44.77 kg/m2 Fatoumata Sanchez APRN - PHERESIS NURSE Work Phone: [employer] 06-08-2021 14:22-0400 Body temperature 98.1 [degF] Fatoumata Sanchez APRN - PHERESIS NURSE Work Phone: [employer] 06-08-2021 14:22-0400 Body weight 141.52 kg Fatoumata Sanchez APRN - PHERESIS NURSE Work Phone: [employer] 06-08-2021 14:22-0400 Diastolic blood pressure 120 mm[Hg] Fatoumata Sanchez APRN - PHERESIS NURSE Work Phone: [employer] 06-08-2021 14:22-0400 Respiratory rate 18 /min Fatoumata Sanchez APRN - PHERESIS NURSE Work Phone: [employer] 06-08-2021 14:22-0400 Systolic blood pressure 170 mm[Hg] Fatoumata Sanchez APRN - PHERESIS NURSE Work Phone: [employer] 03-19-2020 23:45-0500 BP Diastolic 101 mm[Hg] [facility] [place] , [place] 03-19-2020 23:45-0500 BP Systolic 148 mm[Hg] [facility] [place] , [place] 03-19-2020 23:45-0500 Pulse (Heart Rate) 117 /min [facility], [place] 03-19-2020 23:45-0500 Pulse Oximetry 94 % [facility] , [place] 03-19-2020 23:45-0500 Respiratory Rate 23 /min [facility] 03-19-2020 19:57-0500 Body Temperature 99.9 [degF] [facility] 03-19-2020 17:38-0500 BMI (Body Mass Index) 45.92 kg/m2 [facility], [place] 03-19-2020 17:38-0500 Body weight 145.15 kg [facility] , [place] 03-19-2020 17:38-0500 Height 177.8 cm [facility] , [place] 10-21-2019 17:46-0400 BP Diastolic 103 mm[Hg] [facility] , [place] 10-21-2019 17:46-0400 BP Systolic 163 mm[Hg] [facility] [place] 10-21-2019 17:37-0400 Pulse (Heart Rate) 109 /min [facility] [place] 10-21-2019 17:37-0400 Respiratory Rate 18 /min [facility] 10-21-2019 16:02-0400 BMI (Body Mass Index) 44.3 kg/m2 [facility], [place] 10-21-2019 16:02-0400 Body Temperature 97 [degF] [facility] 10-21-2019 16:02-0400 Body weight 136.08 kg [facility] , [place] 10-21-2019 16:02-0400 Pulse Oximetry 96 % [facility] , [place] 02-07-2019 08:18-0500 Body Temperature 97.7 [degF] Dat Jean Baptiste [facility] 02-07-2019 08:18-0500 BP Diastolic 102 mm[Hg] Dat Jean Baptiste [facility] [place] 02-07-2019 08:18-0500 BP Systolic 132 mm[Hg] Dat [facility] , [place] 02-07-2019 08:18-0500 Pulse (Heart Rate) 76 /min [facility], [place] 02-07-2019 08:18-0500 Pulse Oximetry 96 % Dat [facility] , [place] 02-07-2019 08:18-0500 Respiratory Rate 16 /min Dat [facility], [place] 02-07-2019 04:51-0500 BMI (Body Mass Index) 42.06 kg/m2 Dat Hopkins [facility], [place] 02-07-2019 04:51-0500 Body weight 129.18 kg Dat [facility] , [place] 02-06-2019 08:10-0500 Height 175.3 cm Dat [facility] , [place] Encounters Encounter Date Encounter Type Care Provider Facility Start: 06-26-2024 End: 06-26-2024 ambulatory MARK [facility] Start: 06-25-2024 End: 06-25-2024 ambulatory MD Krishan Holland Facility:[facility] Start: 06-25-2024 End: 06-25-2024 Patient encounter procedure MARK MORTON [facility] Start: 06-21-2024 End: 06-21-2024 ambulatory MARK [facility] Start: 06-21-2024 End: 06-21-2024 Encounter for preprocedural cardiovascular examination MARK [facility] Start: 02-27-2024 End: 02-27-2024 Emergency department patient visit Med Koenig Facility:[facility] Start: 02-26-2024 End: 02-26-2024 ambulatory Yana Navas RN [facility] Start: 02-15-2024 End: 02-15-2024 Emergency department patient visit Jenelle Judge Facility:[facility] Start: 07-04-2023 End: 07-04-2023 Emergency department patient visit [facility] Start: 10-11-2022 End: 10-11-2022 Emergency department patient visit PHYSICIAN NO [facility] Work Phone: Start: 08-18-2022 End: 08-18-2022 Emergency department patient visit PHYSICIAN NO [facility] Work Phone: Start: 05-15-2022 End: 05-16-[address] NONE LISTED REQUEST Facility:[facility] Start: 05-11-2022 End: 05-11-[address] NONE LISTED REQUEST Facility:[facility] Start: 01-21-2022 End: 01-21-2022 ambulatory PHYSICIAN NO [facility] Work Phone: Start: 01-21-2022 End: 01-21-2022 Discharged Recurring PHYSICIAN NO [facility] [employer] [address] Start: 12-19-2021 End: 12-19-2021 Emergency department patient visit PHYSICIAN NO [facility] Start: 12-17-2021 End: 12-17-2021 Emergency department patient visit PHYSICIAN NO [facility] Start: 12-02-2021 End: 12-02-2021 Emergency department patient visit PHYSICIAN NO [facility] Start: 06-08-2021 End: 06-08-2021 Emergency department patient visit Fatoumata Sanchez APRN - PHERESIS NURSE Work Phone: [facility] Comment on above: Enteritis (Primary D x) Start: 03-19-2020 End: 03-20-2020 Emergency department patient visit [facility] Comment on above: COVID-19 (Primary Dx ) Start: 10-21-2019 End: 10-21-2019 Emergency department patient visit [facility] Comment on above: Left Achilles tendin itis (Primary Dx) Start: 02-05-2019 End: 02-07-2019 Evaluation and management of inpatient Dat Jean Baptiste [email or web address] Comment on above: Ileus (HCC) [...] Ct abdomen & pelvis w/contrast material Fatoumata Ruiz Laura ASSOCIATE PROFESSOR OF BIBLICAL STUDIES - PHERESIS NURSE Work Phone: Start: 06-08-2021 Comprehensive metabo lic panel Fatoumata Ruiz Laura ASSOCIATE PROFESSOR OF BIBLICAL STUDIES - PHERESIS NURSE Work Phone: Start: 03-19-2020 Ct thorax w/contrast material Arabella Blandon Work Phone: Start: 03-19-2020 COVID-19 Arabella Langford [facility] Work Phone: Start: 03-19-2020 [facility] Work Phone: Start: 03-19-2020 Assay of [...] stick/tabl et rgnt auto w/o microscopy Arabella Blandon Work Phone: Start: 02-05-2019 Cul bact stool aerob ic isol salmonella&shigell Arabella Barber Work Phone: Start: 02-05-2019 Toxin/antitoxin assa y tissue culture Arabellacornell Blandon Work Phone: Start: 02-05-2019 Ct abdomen & pelvis w/contrast material Arabella Blandon Work Phone: Start: 02-05-2019 Assay of lactate Arabella Barber Work Phone: Start: 02-05-2019 [facility] lipase [facility] Work Phone: Start: 02-05-2019 Blood count complete automated Arabella Blandon Work Phone: Start: 02-05-2019 Comprehensive metabo lic panel Arabella [employer] Work Phone: SARS Antigen (LFIA) PHYSICIA N NO FAMILY Plan of Treatment Date Care Activity Detail Author Start: 02-01-2024 Adult BMI Screening Adult BMI Screen ing [facility] Start: 02-01-2024 Depression Screening Depression Scre ening [facility] Start: 02-01-2024 Tobacco Screening Tobacco Screening [facility] Start: 11-12-2023 Influenza vaccination Influenza Vacc ine [facility] Start: 2023 Screening for malign ant neoplasm of colon Colonoscopy [facility] Start: 06-08-2022 Creatinine measurement Creatinine mo [facility] Start: 06-08-2022 Potassium monitoring Potassium monit [facility] Start: 03-19-2021 Creatinine measurement Creatinine mo [place] Start: 03-19-2021 Potassium monitoring Potassium monit [place] Start: 11-11-2020 Influenza vaccination Flu vaccine (# 1) [facility] Start: 02-07-2020 Creatinine measurement Creatinine mo [place]itoring [place] Start: 02-07-2020 Potassium monitoring Potassium monit [place] Start: 11-12-2019 Influenza vaccination Flu vaccine (# 1) [place] Start: 06-28-2019 Creatinine monitoring Creatinine mon [place]oring [place] Start: 06-28-2019 Potassium monitoring Potassium monit [place] Start: 11-11-2018 Influenza vaccination Flu vaccine (# 1) [place] Start: 2018 Diabetes screen Diabetes screen [place] Start: 2018 Lipid panel Lipid screen [facility] Start: 2018 Lipid screen Lipid screen [place] Start: 2013 Diabetes screen Diabetes screen [facility] Start: 1997 DTaP,Tdap and Td Vaccines (1 - Tdap) DTaP,Tdap and Td Vaccines (1 - Tdap) [facility] Start: 1997 DTaP/Tdap/Td vaccine (1 - Tdap) DTaP/Tdap/Td vaccine (1 - Tdap) [facility] Start: 1993 HIV screen HIV screen [place], [place] Start: 1993 HIV screening HIV screen [facility] Start: 1990 Depression Screen Depression Screen [facility] Start: 1989 DTaP/Tdap/Td vaccine (1 - Tdap) DTaP/Tdap/Td vaccine (1 - Tdap) [place] Start: 1983 COVID-19 Vaccine (1) COVID-19 Vaccin e (1) [facility] Start: 1978 [facility] End: 03-19-2020 Culture, Blood 1 Culture, Blood 1 Microbiology STAT One Time for 1 Occurrences starting 03/19/2020 until 03/19/2020 [place] Comment on above: One Time for 1 Occur rences starting 03/19/2020 until 03/19/2020 Culture, Blood 1 Culture, Blood 1 Microbiology STAT 03/19/2020 6:00 PM EST [place] EKG 12 Lead EKG 12 Lead ECG STAT 03/19/2020 5:53 PM EST [facility] Oxygen Ther apy Protocol Initiate Oxygen Therapy Protocol Respiratory Care Routine Daily until discontinued starting 02/05/2019 [facility] Comment on above: Daily until disconti nued starting 02/05/2019 Nasal Cannula Oxygen Nasal Cannu la Oxygen Respiratory Care STAT Daily until discontinued starting 03/19/2020 [facility] Comment on above: Daily until disconti nued starting 03/19/2020 Patient Education [facility] Work Phone: Patient referral [facility] Work Phone: End: 02-05-2019 Pulse Oximetry Spot Check Pulse Oximetry Spot Check Respiratory Care Routine One Time for 1 Occurrences starting 02/05/2019 until 02/05/2019 [facility] Comment on above: One Time for 1 Occur rences starting 02/05/2019 until 02/05/2019 End: 06-08-2021 Urinalysis with Microscopic Urinalysis with Microscopic Lab STAT One Time for 1 Occurrences starting 06/08/2021 until 06/08/2021 [facility] Work Phone: Comment on above: One Time for 1 Occur rences starting 06/08/2021 until 06/08/2021 Payers Date Payer Category Payer Unknown [id number] 2024 Unknown [id number] 2022 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 [facility] [id number] 1978 Unknown [id number] 1978 Unknown [id number] 1978 Unknown [id number] 1959 Self-pay 1959 Worker's Compensation [id number] Unknown [id number] Unknown [id number] Social History Date Type Detail Facility Start: 10-21-2019 End: 10-04-2022 Tobacco smoking status [facility] [place] Start: 10-21-2019 End: 10-04-2022 Tobacco use and exposure Never used [place] Start: 10-21-2019 End: 06-08-2021 Alcohol intake Current non-drinker of alcohol (finding) [place] Start: 1980 Sex Assigned At Not on file M [place] Start: 05-29-2021 End: 06-08-2021 Exposure to SARS-CoV-2 (event) Not sure [place] Start: 12-02-2021 End: 12-19-2021 Tobacco smoking status MEIS Never smoked tobacco (finding) [facility] Start: 1980 Sex Assigned At Male F [facility] End: 09-06-2022 History of tobacco use Current smoker [facility] End: 09-06-2022 History of tobacco use Cigarette Smoker [facility] Start: 01-31-2023 Alcoholic beverage intake Current drinker of alcohol (finding) [facility] Start: 01-31-2023 History of Social function [facility] Start: 01-31-2023 Tobacco use panel [facility] Start: 04-30-2018 Adolescent depressio n screening assessment 2 [facility] Start: 10-04-2022 Alcohol Comment Social [facility] Start: 04-30-2018 End: 09-22-2022 Sex Male (finding) [facility] Sexual Orientation [facility] Clinical Notes 06-08-2021 to 06-26-2024 Telephone Encounter - Yana Navas RN - 02/26/2024 7:12 AM ESTTelephone Encounter - Yana Navas RN - 02/26/2024 7:12 AM ESTInstructionsAttachments Note Date & Type Note Facility 06-26-2024 Note SUBJECTIVE Reason for Visit: Lawson Lopez is a 44 y.o. year old male patient being seen for follow-up visit, surgical clearance right knee scope scheduled for July 01 2024. HPI: Lawson Lopez is a 44 y.o. year old male with significant medical history of hypertension, and hyperlipidemia. Patient underwent an elective coronary angiogram on 11/27/[address] Michelle for abnormal stress test and reduced LVEF, and was found to have nonobstructive CAD. 06/26/2024 office visit: Patient is seen and examined in the office today. This is a follow-up visit for his recent echocardiogram and reevaluation of his tolerance of the medications that I previously started restarted including the Farxiga Lasix and spironolactone. Also, surgical clearance for right knee surgery. He denies chest pain shortness of breath palpitations lightheadedness or dizziness. Relatively benign exam. Lower extremity swelling is noted to be much improved. He does endorse persistent right knee pain. Also admits to being very anxious and is asking about a PCP referral as he was unsatisfied with his prior and would like to better control his anxiety. 06/21/2024 office visit: Patient denies chest pain, shortness of breath, palpitations, lightheadedness, or dizziness. He admits to being anxious during the visit. Initial blood pressure was 169/120 with a heart rate of 117. Upon recheck 10 minutes later his BP was 130/90. He endorses lower extremity edema. He reports falling approximately 14 feet while hunting at night in [place] and is currently experiencing knee pain rated [...] class 2 (CMS/HCC) Coronary artery disease involving ho-chunk coronary artery of ho-chunk heart without angina pectoris Achilles tendinitis, left leg Contracture, left ankle Internal derangement of right knee Pain in left foot family history includes Coronary artery disease in his mother's brother; No Known Problems in his brother, father, and mother; Peripheral vascular disease in his mother's brother. Social History Tobacco Use Smoking status: Former Current packs/day: 0.00 Types: Cigarettes Quit date: 09/04/2022 Years since quittin.8 Smokeless tobacco: Never Substance Use Topics Alcohol use: Yes Comment: occasional Drug use: Not Currently OBJECTIVE Visit Vitals BP (!) 142/92 (BP Location: Right arm, Patient Position: Sitting) Pulse 90 Ht 1.753 m (5' 9 ) Wt (!) 137 kg (302 lb) SpO2 95% BMI 44.60 kg/m??? Smoking Status Former BSA 2.58 m??? Physical Exam Constitutional: General Appearance: well-developed, appears stated age. Level of Distress: no acute distress. Neck: Jugular Veins: normal jugular venous pressure. Lungs: Auscultation: no rales or rhonchi and normal breath sounds. Cardiovascular: Rate And Rhythm: regular Heart Sounds: normal S1 and s2; Systolic Murmur: not heard. Diastolic Murmur: not heard. Extremities: Trace LE edema Peripheral Pulses: Pulses: full and [...] lisinopril 5 mg, oral, Daily RT meloxicam (M (more content not included)... [facility] 06-25-2024 Note Echocardiology Procedure Exam Date/Time Accession # Ordering Echo Transthoracic 06/25/2024 14:03 EDT [id number] MARK MORTON Complete CPT code [id number] Reason for Exam (Echo Transthoracic Complete) I50.[address] [address] Adult Echocardiogram Report Name: LAWSON LOPEZ Study Date: 06/25/2024 01:21 PM BP: 151/101 mmHg Patient Location: [facility] Ambulatory(s) [facility] HR: 75 : 1980 Gender: Male Height: 69 in Age: 44 yrs Ethnicity: [facility] Weight: 290 lb Reason For Study: I50.21 BSA: 2.4 m2 History: HTN,Pre-Op Performed By: Princess Aguirre RDMS, RVT Interpretation Summary Mild left ventricular hypertrophy. [...] Abdoul Ny MD Transcribed by: LEATHA Technologist: [facility] 06-21-2024 Note SUBJECTIVE Reason for Visit: Lawson [...] 14 feet while hunting at night in [place] and is currently experiencing knee pain rated [...] class 2 (CMS/HCC) Coronary artery disease involving ho-chunk coronary artery of ho-chunk heart without angina pectoris family history includes [...] Rate 11/17/2022 81 Atrial Rate 11/17/2022 81 SC Interval 11/17/2022 168 QRS DURATION 11/17/2022 82 QT Interval 11/17/2022 370 QTC CALCULATION(BAZETT) 11/17/2022 429 P [place] 11/17/2022 28 R-[place] 11/17/2022 -30 T Wave [place] 11/17/2022 -32 Auto WBC 11/17/2022 10.15 RBC 11/17/2022 4.93 Hemoglobin 11/17/2022 14.9 Hematoc (more content not included)... [facility] 02-26-2024 Miscellaneous Notes ----- Message from Livia [...] (e.g., disoriented, slurred speech) Protocols used: Breathing Tomdmfmawr-M-YW documented in this encounter [employer] 02-26-2024 Telephone encounter Note ----- Message from Livia sent at 02/26/2024 7:11 AM EST ----- Contract: 198 Matti started taking Gabapentin 600 mg last night and this morning he feels dizzy and disoriented with heavy breathing [employer] 02-26-2024 Telephone encounter Note Contract: 198 Patient's [...] (e.g., disoriented, slurred speech) Protocols used: Breathing [facility] 06-08-2021 Hospital Discharg e instructions Fatoumata Sanchez, ARSALAN - PHERESIS NURSE - 06/08/2021 Increase your fluid intake. Take Bentyl as prescribed. Follow-up with PCP for reevaluation in the next couple of days. Avoid dairy, spicy and fatty foods for the next week. Return here for increased pain, fever, difficulty breathing, vomiting or new or worsening signs or symptoms. The following attachments cannot be sent through Care Everywhere.Gastroenteritis (Bur[place]ian)documented in this encounter [facility] Work Phone: Evaluation + Plan note No data available for this section [facility] Evaluation note Diagnosis Enteritis- Primary Other and unspecified noninfectious gastroenteritis and colitis [facility] Work Phone: evaluation noteNo assessment information available [facility] Work Phone: Hospital Discharge instructions Additional Instructions Rest ice elevate Use the wrist splint for comfort Take ibuprofen every 6 hours for discomfort [facility] Follow-up with [facility] especially if not getting better [facility] Work Phone: Hospital Discharge instructions Additional Instructions Return for new or worsening symptoms [facility] Work Phone: Hospital Discharge instructions Additional Instructions Please return to emergency department for any new or worrisome symptoms including any weakness, numbness, headache, vision changes. Follow-up with your family physician as soon as possible.[facility] Work Phone: Hospital Discharge instructions No data available for this section [facility] InstructionsNot on filedocumented in this encounter [facility] No data available for this section [facility] Discharge Instructions * Attachments The following attachments cannot be sent through Care Everywhere. * Tendon Injury (Tendinopathy) (Burundian) documented in this encounter* Instructions* Lobito Sidhu [...] Everywhere. * Coronavirus Disease (COVID-19): General Info (Burundian) * Coronavirus Disease (COVID-19): Isolation (Burundian) documented in this encounter* Instructions* Bambi Segal [...] Where can you learn more? Go to [email or web address] and sign in to your [employer] account. Enter M933 in the Search Health Information box to learn more about [employer] About [employer]. If you do not have an account, please click on the Sign Up Now link. Current as of: January 17, 2018 Content Version: [id number] [employer]. Care instructions adapted under license by [employer]. If youhave questions about a medical condition or this instruction, always ask your healthcare professional. [employer] disclaims any warranty or liability for your use of this information. documented in this encounter Assessments Diagnosis Left Achilles tendinitis Achilles bursitis or tendinitis Diagnosis COVID-19- Primary Diagnosis Abdominal pain with Ileus- Primary Abdominal pain, unspecified site Ileus (HCC) Paralytic ileus Essential hypertension Unspecified essential hypertension Advance Directives No Advanced Directives Records FoundDocuments on File Type Date Recorded Patient Mechanical Service Representative Expl anation Advance Directives and Living Will Power of Internist Latest Code Status on File Code Status Date Activated Date Inactivated Comments Full Code 02/05/2019 9:40 PM 02/07/2019 3:36 PM Full Code 06/22/2016 5:58 AM 06/22/2016 7:53 PM Documents on File Type Date Recorded Patient Mechanical Service Representative Expl anation ACP-Advance Directive ACP-Power of Internist Latest Code Status on File Code Status Date Activated Date Inactivated Comments Full Code 02/05/2019 9:40 PM Advance Directive Response Recorded Date/ Time Advance Directives No November 3:14pm Advance Directive Response Recorded Date/ Time Advance Directives No November 2:14pm Hospital Course * Tal Gonzalez MD - 02/07/2019 11:47 AM EST Tal Gonzalez M.D. Internal Medicine Discharge Summary Patient ID: Lawson Lopez [id number] Admission date: 02/05/2019 Discharge date: 02/07/2019 [...] no PCP but will be referred to [facility]. Discharge Exam: GEN: Awake, alert and [...] Discharge Medications: Lawson Lopez Home Medication Instructions [id number]:[id number] Printed on:02/07/19 1146 Medication Information amLODIPine (NORVASC) 5 MG tablet Take 1 tablet by mouth daily Patient Instructions: Activity: activity as tolerated Diet: regular diet Wound Care: none needed Follow up with [facility]2 weeks CORE MEASURES on Discharge (if applicable) DORCAS/ARB in CHF: N/A ASA in TX: N/A Statin in TX: N/A Statin in CVA: N/A Antiplatelet in CVA: N/A Total time spent on discharge services: 25 minutes Including the following activities: Evaluation and Management of patient Discussion with patient and/or surrogate about current care plan Coordination with Case Management and/or Hoop Bending Machine Operator Coordination of care with Consultants (if applicable) [...] Resting in bed, call light in reach. * Megan Meza RN - 02/06/2019 10:56 [...] of care. To: __Dr. Jean Baptiste From: [facility] Sender:_KSchwochowRN Phone Number:_[phone] This request is: Urgent - No Information [...] Lleus Met with: Patient PCP: None. Chose [facility] Payment Source: Private. No insurance. Advance Directives: None Code Status: Full Mental Status: Alert and oriented Living Arrangement: Patient lives at home in [place] with a roommate Support Systems: Roommate and [...] Needs/Discharge Plan: Patient will return home to [place] where he resides with a roommate. He [...] 5. Fluid Accumulation-No significant fluid accumulation, 6. Rail Track Layer Strength-Not measured Nutrition Risk Level: Moderate Nutrient Needs: Estimated Daily Total Kcal: 4662-0439(12-17) Estimated Daily Protein (g): 95-109(1.3-1.5) Estimated Daily [...] Patient/Family Education, Monitor Bowel Function Contact Number: [phone] * Marija Plummer RN - 02/06/2019 4:31 [...] oriented to room, pr watching tv when open die inspector left room documented in this encounter Chief Complaint and Reason for Visit Chief Complaint chest congestion Chief Complaint chest congestion rt wrist pain jeremy rich Chief Complaint chest congestion rt wrist pain zitao janelle rich Rt wrist pain Chief Complaint chest congestion rt wrist pain zitao janelle rich Rt wrist pain rt wrist injury Chief Complaint dizzy , nausea hit h ead ico desiree rich 6 numbness in hands/face Summary Purpose Family History No Family History Records FoundNo Family History Records FoundNo Family History Records Found No data available for this section No Family History Records FoundNo Family History [...] Inactive Member Role Status Dates Isabel Rodas CARBON PRINTER-C Primary Care Provider Active Socorro Osullivan MD Emergency Provider Active Technician Assistant Relationship Specialty Start Date End Date Isabel Rodas APRN-PHERESIS NURSE [address] [place] [address] PCP - General Family Medicine 10/04/22 Goals [...] content) DATE CREATED AUTHOR 05/17/2022 [facility] DATE CREATED AUTHOR AUTHOR'S ORGANIZ ATION 07/06/2023 [facility] DATE CREATED AUTHOR AUTHOR'S ORGANIZ ATION 05/11/2024 [facility] DATE CREATED AUTHOR AUTHOR'S ORGANIZ ATION 06/28/2024 [facility] DATE CREATED AUTHOR AUTHOR'S ORGANIZ ATION 07/05/2024 [facility] FOR RECORDS PERTAINING TO PATIENTS WHO ARE [...] BE BASED ON THE PRIMARY CLINICAL RECORDS. [facility] [employer] [facility]. provides no warranty or guarantee of the accuracy or completeness of information in this document.
--- NOTE | 2024-07-20 08:10 | ED.GENADUL1 ---
HPI HPI - General Adult General Chief complaint: Extremity Problem, Nontraumatic Stated complaint: LEFT FOOT PAIN Time Seen by Provider: 07/20/24 07:55 Source: patient Mode of arrival: Wheelchair Limitations: no limitations History of Present Illness HPI narrative: 44-year-old male presents for left foot pain and swelling. He states this started last night and it got worse throughout the night. There is no history of any trauma or unusual activity. His right foot does not hurt and neither does his left ankle or left calf. About a month ago he had right knee surgery. He had Achilles tendinitis and this foot in the remote past but otherwise has not had any issues with that foot. The pain is moderate to severe and it is worse when he steps on it. Related Data Home Medications ?Medication ?Instructions ?Recorded ?Confirmed carvedilol 12.5 mg tablet 12.5 mg PO BID 06/21/24 07/20/24 meloxicam 15 mg tablet 15 mg PO DAILY 06/21/24 07/20/24 Previous Rx's ?Medication ?Instructions ?Recorded aspirin 81 mg chewable tablet 81 mg PO DAILY #30 tabs 09/06/22 atorvastatin 40 mg tablet (Lipitor) 40 mg PO DAILY #30 tabs 09/06/22 tramadol 50 mg tablet 50 mg PO Q6H PRN pain #10 tabs 07/01/24 hydrocodone 5 mg-acetaminophen 325 1 tab PO Q6H PRN pain 5 days #20 07/20/24 mg tablet tabs Allergies Allergy/AdvReac Type Severity Reaction Status Date / Time gabapentin Allergy Unknown Unknown Verified 07/20/24 07:51 amoxicillin AdvReac Vomiting Verified 07/20/24 07:51 prednisone AdvReac Shakiness Verified 07/20/24 07:51 Opioid HPI Opioid Management Most Recent Opioid Data: Last Pain Scale 6 Today, 09:42 Last MAR Pain Assessment Today, 09:42 Review of Systems ROS Narrative A ten point review of systems is negative except as noted above. PFSH [facility], [facility] Medical History (Updated 07/20/24 @ 09:38 by Ashok Jean MD) Arthritis ?M19.90 - Unspecified osteoarthritis, unspecified site (ICD-10) Headache ?R51.9 - Headache, unspecified (ICD-10) Heartburn ?R12 - Heartburn (ICD-10) High cholesterol ?E78.00 - Pure hypercholesterolemia, unspecified (ICD-10) Anxiety ?F41.9 - Anxiety disorder, unspecified (ICD-10) Myocardial infarct ?I21.9 - Acute myocardial infarction, unspecified (ICD-10) CAD (coronary artery disease) ?I25.10 - Atherosclerotic heart disease of [place] coronary artery without angina pectoris (ICD-10) Ankle pain ?M25.579 - Pain in unspecified ankle and joints of unspecified foot (ICD-10) Influenza A (H1N1) ?J10.1 - Influenza due to other identified influenza virus with other respiratory manifestations (ICD-10) Pneumonia ?J18.9 - Pneumonia, unspecified organism (ICD-10) Dehydration ?E86.0 - Dehydration (ICD-10) Achilles tendinitis ?M76.60 - Achilles tendinitis, unspecified leg (ICD-10) Acute pain of left shoulder ?M25.512 - Pain in left shoulder (ICD-10) Chest wall pain ?R07.89 - Other chest pain (ICD-10) GERD (gastroesophageal reflux disease) ?K21.9 - Gastro-esophageal reflux disease without esophagitis (ICD-10) Left shoulder pain ?M25.512 - Pain in left shoulder (ICD-10) Vertigo ?R42 - Dizziness and giddiness (ICD-10) Pain in right knee ?M25.561 - Pain in right knee (ICD-10) Injury of knee, right ?S89.91XA - Unspecified injury of right lower leg, initial encounter (ICD-10) Chronic pain of right knee ?M25.561 - Pain in right knee (ICD-10) ?G89.29 - Other chronic pain (ICD-10) Syncope and collapse ?R55 - Syncope and collapse (ICD-10) Dyslipidemia ?E78.5 - Hyperlipidemia, unspecified (ICD-10) HTN (hypertension) ?I10 - Essential (primary) hypertension (ICD-10) Surgical History (Updated 06/21/24 @ 09:30 by Bhakti Sofia NP) History of tonsillectomy and adenoidectomy ?Z90.89 - Acquired absence of other organs (ICD-10) History of cardiac catheterization ?Z98.890 - Other specified postprocedural states (ICD-10) S/P ACL repair (~2009) ?Z98.890 - Other specified postprocedural states (ICD-10) Family History (Updated 06/21/24 @ 09:30 by Bhakti Sofia NP) Other Family history of myocardial infarction Family history of stroke Social History (Updated 06/21/24 @ 09:48 by Bhakti Sofia NP) Within the past year, how often did you have a drink containing alcohol: monthly or less Smoking status: Former smoker Non-prescribed substance use: former substance user Non-prescribed substance use details: cocaine, last used 2010 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 General: The patient appears well and in no apparent distress. Patient is resting comfortably on cart. Skin: Warm, dry, no pallor noted. There is no rash noted. Head: Normocephalic, atraumatic Eye: Normal conjunctiva, no drainage Ears, Nose, Mouth, and Throat: oral mucosa is moist. Nares patent. Cardiovascular: Regular Rate and Rhythm Respiratory: Patient is in no distress, no accessory muscle use Back: non-tender GI: Soft and nontender Musculoskeletal: The left foot is swollen compared to the contralateral. He has no bruising or abrasions or break in the skin. The ankle is nontender. The Achilles tendon is nontender and has normal function. The left calf is nontender and nonswollen and there are no masses. Neurological: A&O, normal speech Psychiatric: Cooperative Constitutional Vital Signs, click to edit/add: Last Vital Signs Temp 98.9 F 07/20/24 07:52 Pulse 124 H 07/20/24 07:52 Resp 20 07/20/24 07:52 BP 179/110 H 07/20/24 07:52 Pulse Ox 95 07/20/24 07:52 O2 Del Method Room Air 07/20/24 07:52 Course Vital Signs Vital signs: Vital Signs Temperature 98.9 F 07/20/24 07:52 Pulse Rate 124 H 07/20/24 07:52 Respiratory Rate 20 07/20/24 07:52 Blood Pressure 179/110 H 07/20/24 07:52 Pulse Oximetry 95 07/20/24 07:52 Oxygen Delivery Method Room Air 07/20/24 07:52 Temperature 98.9 F 07/20/24 07:52 Pulse Rate 124 H 07/20/24 07:52 Respiratory Rate 20 07/20/24 07:52 Blood Pressure 179/110 H 07/20/24 07:52 Pulse Oximetry 95 07/20/24 07:52 Oxygen Delivery Method Room Air 07/20/24 07:52 Medical Decision Making MDM Narrative Medical decision making narrative: X-ray shows no acute findings. Soft tissue swelling is present as well as some arthritis and bunion. Findings are discussed with the patient. He was offered referral to podiatry but he sees an orthopedist and will follow-up with him. He was offered crutches but has been at home. He was prescribed [place] and was given 1 here. Clinically I do not suspect gout because of the distribution. There is no history of trauma. Treatment diagnosis and follow-up were discussed with the patient. Differential Diagnosis Differential Diagnosis: Sprain, arthritis, gout Imaging Data Foot x-ray: Radiologist's impression: No acute fracture, mild dorsal soft tissue swelling, no lytic lesion, mild early osteoarthritis at the left first MTP joint, mild hallux valgus deformity Discharge Plan Discharge Chief Complaint: Extremity Problem, Nontraumatic Clinical Impression: Acute pain of left foot Patient Disposition: Home, Self-Care Time of Disposition Decision: 09:37 Condition: Good Mode of Transportation: Private Vehicle Prescriptions / Home Meds: New hydrocodone-acetaminophen 5-325 mg tablet 1 tab PO Q6H PRN (Reason: pain) 5 Days Qty: 20 0RF No Action aspirin 81 mg tablet,chewable 81 mg PO DAILY Qty: 30 0RF atorvastatin [Lipitor] 40 mg tablet 40 mg PO DAILY Qty: 30 0RF meloxicam 15 mg tablet 15 mg PO DAILY carvedilol 12.5 mg tablet 12.5 mg PO BID Rx Instructions: must administer with a meal/food tramadol 50 mg tablet 50 mg PO Q6H PRN (Reason: pain) Qty: 10 0RF Print Language: Turkmen Instructions: Arthralgia (ED) Referrals: ELIAS DUKES [Primary Care Provider, Unknown] - 1 week
[2024-07-20] MEDS: HYDROCODONE/ACET 5-325 MG TABLET 1 TAB PO (09:42)
== END 2024-07-20 09:56 | disposition home or self-care (01) ==
PROVIDERS: Emergency Provider Emergency Medicine; PCP Nurse Practitioner
DX: M79.672 Pain in left foot (principal)
CPT/HCPCS: 73630; 99283